=== PATIENT | male | born 1935 | race Caucasian/White ===

== ENCOUNTER → 2016-08-17 | Outpatient (CLI) | payer MEDICARE ==
[2014-01-15 07:22] VITALS: BP 121/55
[~2016-08-17] MED LIST: ACET325T9 PO; CHOL10003 PO; DOCU-109 PO; FURO-68 PO; HYDR-2762 PO; LISI10TA2 PO; SIMV40TA3 PO; SLOW RELEASE I142 MG PO; WARF2.5T83 PO
--- NOTE | 2016-08-18 04:26 | PAIN ---
DATE OF SERVICE: 08/17/2016 PROGRESS NOTE FOR PAIN CLINIC DIAGNOSES: 1. Lumbar radiculopathy with lumbar degenerative disk disease, lumbar spinal stenosis. 2. Bilateral knee joint pain with primary osteoarthritis of the bilateral knee joints. HISTORY OF PRESENT ILLNESS: The patient is a 81-year-old male who returns for followup, last seen on 06/27/2015. The patient had bilateral knee joint intra-articular injections with very good results about 75% improvement by his report and returns today with similar complaints of bilateral knee joint pain, slightly worse on the right than the left, but also some low back pain radiating to bilateral lower extremities. The patient reports the back pain is there with radicular pain mostly with walking, but his knee joint pain is much worse and much separate. He would like both issues addressed eventually. The patient is currently still taking Coumadin and his most recent INR of 2.2, which was about 5 days ago. The patient reports no new motor or sensory deficits, has still significant pain rates at 9 on a scale of 10 at its worst, is a 7 on average and 6 is the least, it is 7 today. The patient reports it is sharp, burning, off and on in intensity, worse with walking, standing with pain radiating from the low back, into the bilateral lower extremities, mostly in the posterior and lateral aspect of the thighs and into the lower legs, but the knees are his primary concern, as they are very tender with walking, standing, especially with climbing stairs or stepping up steps or curbs when he puts all his weight on one leg at the other. Again, slightly worse on the right than the left, but present bilaterally. The patient has had a left total knee replacement also. The patient reports no new motor or sensory deficits or other complaints. No new bowel or bladder incontinence. PHYSICAL EXAMINATION: VITAL SIGNS: The patient's blood pressure 131/59, pulse 64, respirations 18, temperature is 98.0 degrees Fahrenheit, height is 6 feet, weight is 270 pounds. GENERAL: The patient is awake, alert, oriented, appropriate, very pleasant demeanor. HEENT: Head shows normocephalic, atraumatic. The patient wears eyeglasses. Extraocular movements are intact and symmetrical. Oral cavity shows mucous membranes moist and pink. Dentition is intact. NECK: Shows anterior throat is supple without palpable lymphadenopathy noted. Swallow reflex is symmetrical. CHEST: Shows normal on inspection. Breath sounds are clear to auscultation bilaterally. HEART: Shows S1 and S2 clear. ABDOMEN: Soft, nontender, nondistended. No palpable organomegaly, no rebound or guarding demonstrated. BACK: The patient's back shows spine grossly in the midline. Normal appearing thoracic kyphosis and some mild flattening of lumbar lordotic curvature. Lumbar paraspinous muscle shows symmetrical on inspection without atrophy or hypertrophy noticeable, with palpation shows normal muscle girth. Palpation shows moderate tenderness only in the inferior aspect of the lumbar paraspinous musculature bilaterally, but without radiation. No tenderness over the spinous processes, sacrum or sacroiliac regions. The patient shows good rotation and motion of the lumbar spine, both laterally as well as extension and flexion without significant pain reported. LOWER EXTREMITIES: Show deep tendon reflexes at 0+ on the left knee and 1+ on the right patellar tendon. Motor exam is approximately 4 on a scale of 5 with left dorsiflexion, extension and 5/5 on the right quadriceps and hamstring flexion 5/5 bilaterally. Peripheral pulses are 1+ posterior tibial and dorsalis pedis pulses. No peripheral edema is noted bilaterally. Options were discussed with the patient and the patient's old chart was reviewed as his current medication regimen updated. Current review of systems updated today as well. We will check with his primary care physician for clearance to hold his Coumadin for 5 days with an INR and PT at that time. If out of therapeutic range, we will proceed with bilateral intra-articular knee joint injections. Once it is taken care, we will schedule again to hold his Coumadin and after he has been out of it for a period of at least one week and then plan on lumbar epidural steroid injection, as he has done very well with these in the past for his low back pain and neurogenic claudication symptoms. The patient understands and agrees. We will make the arrangements to check with his primary care physician regarding the Coumadin and holding it and return with PT and INR and proceed as scheduled. CHRISTOPHER ANDRADE MD DR: TANIA/young JOB#: [id number] / [id number]
== END | disposition home or self-care (01) ==
LOC: PNCL 12:19
PROVIDERS: ATTEND Anesthesiology
DX: M51.16 Intervertebral disc disorders with radiculopathy, lumbar region (principal); M48.06 Spinal stenosis, lumbar region; M25.562 Pain in left knee; M25.561 Pain in right knee; M17.0 Bilateral primary osteoarthritis of knee
CPT/HCPCS: G0463

== ENCOUNTER → 2016-08-23 | Outpatient (CLI) | payer MEDICARE ==
[2014-01-15 07:22] VITALS: BP 121/55
[~2016-08-23] MED LIST changes: +BUPIVACAINE MPF 0.25% 10 ML VIAL. ONE; +IOHEXOL 180 MG/ML 10 ML VIAL. ONE; +methylPREDNISolone ACETATE 40 MG/ML VIAL. ONE
== END | disposition home or self-care (01) ==
LOC: PNCL 08:07
PROVIDERS: ATTEND Anesthesiology
DX: M17.0 Bilateral primary osteoarthritis of knee (principal); M51.16 Intervertebral disc disorders with radiculopathy, lumbar region; M48.06 Spinal stenosis, lumbar region; E78.00 Pure hypercholesterolemia, unspecified; I10 Essential (primary) hypertension; M19.90 Unspecified osteoarthritis, unspecified site; Z96.652 Presence of left artificial knee joint
CPT/HCPCS: 20610; 77002; J1030; J3490

== ENCOUNTER → 2016-12-10 | Outpatient (CLI) | payer MEDICARE ==
[2014-01-15 07:22] VITALS: BP 121/55
--- NOTE | 2016-12-10 13:21 | PAIN ---
DATE OF SERVICE: 12/10/2016 DIAGNOSES: 1. Bilateral knee joint pain with primary osteoarthritis, bilateral knees. 2. Lumbar radiculopathy with lumbar degenerative disk disease and spinal stenosis. HISTORY OF PRESENT ILLNESS: The patient is a 81-year-old male who returns for followup status post bilateral knee joint injections, last seen 08/23/2016. The patient did very well with good improvement in his knee pain. The pain is returning now and we discussed also his low back, which has been doing very well after some injections last year. His knee is primary complaint, worse in the morning when he stands, get up from bed, very significantly painful, more on the right than the left, but present bilaterally. The patient reports the pain is 8 on a scale of 10 at its worst, average about 7, can be low as 0 but only with sitting down or lying down. The patient reports it is a 4 on a scale of 10 today. Sporadic pain sometimes awakens him from sleep at night that is usually more frequently on his right side. Low back, is doing well as noted. The pain in the knees is described as sharp and shooting, again off and on with weightbearing, much worse with standing, walking, climbing stairs. PHYSICAL EXAMINATION: VITAL SIGNS: Today, the patient's blood pressure is 132/69, pulse 60, respirations 16, temperature 97.5 degrees Fahrenheit. Weight is 275 pounds. GENERAL: The patient is awake, alert, oriented, appropriate, very pleasant demeanor. HEENT: Head shows normocephalic, atraumatic. Extraocular movements are intact, symmetrical. Oral cavity, mucous membranes are moist and pink. Dentition intact. NECK: Shows anterior throat supple. Swallow reflex is symmetrical. Neck shows full rotational motion of the cervical spine without difficulty. CHEST: Shows normal on inspection. Breath sounds are clear to auscultation bilaterally. HEART: Shows S1 and S2 clear. ABDOMEN: Soft, nontender, nondistended. No palpable organomegaly. No rebound or guarding demonstrated. BACK: Shows spine in midline with slight exaggeration of thoracic kyphosis, some minor flattening of lumbar lordotic curvature. Lumbar paraspinous musculature shows some moderate tenderness with palpation bilaterally, but only diffusely without radiation. Lower extremities showed deep tendon reflexes 0/4 on the left patella and 1+ on the right patella. A well healed surgical scar is noted over the left knee. Motor exam is approximately 4 on a scale of 5 left and 5/5 on the right with dorsiflexion, extension, quadriceps and hamstring flexion. Peripheral pulses are 1+ bilaterally. No peripheral edema is noted. Options were discussed with the patient and the patient's old chart was reviewed. CURRENT MEDICATIONS: Reviewed and updated and we will proceed with bilateral knee joint injection today with fluoroscopic guidance. Risks were again discussed including, but not limited to bleeding, infection, possibility of intravascular injection sequelae, spread of local anesthetic and numbness, side effects of steroid medications, exposure to fluoroscopy as well as poor results regarding pain control. The patient understands and wishes to proceed. The patient's PT and INR were measured prior to his visit this morning. It showed PT of 13.7, INR 1.1. The patient will return to the clinic in approximately 2 weeks or as necessary, would like to call for his next appointment, was encouraged to increase activity as tolerated. DIAGNOSIS: Bilateral knee joint pain with primary osteoarthritis, bilateral knee joint. PROCEDURES: Bilateral intra-articular knee joint injection with fluoroscopic guidance. Under sterile prep and drape using local anesthetic, medication injected a total of 2 mL of 0.25% bupivacaine in each knee for 4 mL total and total of 80 mg Depo-Medrol 40 mg per each knee as well as contrast 2 mL, 1 mL per each knee with good intraarticular spread without washout. CONDITION AT DISCHARGE: Stable. The patient tolerated the procedure well, had no complications. CHRISTOPHER ANDRADE MD DR: TANIA/young JOB#: [id number] / [id number]
== END | disposition home or self-care (01) ==
LOC: PNCL 09:45
PROVIDERS: ATTEND Anesthesiology
DX: M51.16 Intervertebral disc disorders with radiculopathy, lumbar region (principal); M48.061 Spinal stenosis, lumbar region without neurogenic claudication; M17.0 Bilateral primary osteoarthritis of knee; E78.00 Pure hypercholesterolemia, unspecified; I10 Essential (primary) hypertension; Z96.652 Presence of left artificial knee joint
CPT/HCPCS: 20610; 77002; J1030; J3490

== ENCOUNTER → 2017-08-26 | Outpatient (CLI) | payer MEDICARE ==
[2017-08-26 09:01] LABS: INR 1.3 (0.8-1.1)
== END | disposition home or self-care (01) ==
LOC: LAB 08:22
DX: Z51.81 Encounter for therapeutic drug level monitoring (principal); I10 Essential (primary) hypertension; E78.00 Pure hypercholesterolemia, unspecified; Z79.01 Long term (current) use of anticoagulants
CPT/HCPCS: 36415; 85610

== ENCOUNTER → 2017-08-26 | Outpatient (CLI) | payer MEDICARE ==
[~2017-08-26] MED LIST changes: -ACET325T9 PO; +BUPIVACAINE MPF 0.25% 10 ML VIAL.; -BUPIVACAINE MPF 0.25% 10 ML VIAL. ONE; -CHOL10003 PO; -DOCU-109 PO; -FURO-68 PO; -HYDR-2762 PO; +IOHEXOL 180 MG/ML 10 ML VIAL.; -IOHEXOL 180 MG/ML 10 ML VIAL. ONE; -LISI10TA2 PO; -SIMV40TA3 PO; -SLOW RELEASE I142 MG PO; -WARF2.5T83 PO; +methylPREDNISolone ACETATE 40 MG/ML VIAL.; -methylPREDNISolone ACETATE 40 MG/ML VIAL. ONE; +methylPREDNISolone ACETATE 80 MG/ML VIAL.
== END ==
LOC: PNCL 08:54
DX: M17.0 Bilateral primary osteoarthritis of knee (principal); M51.16 Intervertebral disc disorders with radiculopathy, lumbar region; M48.061 Spinal stenosis, lumbar region without neurogenic claudication; I10 Essential (primary) hypertension; E78.00 Pure hypercholesterolemia, unspecified; G47.30 Sleep apnea, unspecified; M19.90 Unspecified osteoarthritis, unspecified site; Z79.01 Long term (current) use of anticoagulants; Z96.652 Presence of left artificial knee joint; Z95.0 Presence of cardiac pacemaker
CPT/HCPCS: 20610; 77002; J1030; J1040; J3490; Q9965

== ENCOUNTER → 2018-01-02 | Outpatient (CLI) | payer MEDICARE ==
[2014-01-15 07:22] VITALS: BP 121/55
[~2018-01-02] MED LIST changes: +ACET325T9 PO; -BUPIVACAINE MPF 0.25% 10 ML VIAL.; +CHOL10003 PO; +DOCU-109 PO; +FURO-68 PO; +HYDR-2762 PO; -IOHEXOL 180 MG/ML 10 ML VIAL.; +LISI10TA2 PO; +SIMV40TA3 PO; +SLOW RELEASE I142 MG PO; +WARF2.5T83 PO; -methylPREDNISolone ACETATE 40 MG/ML VIAL.; -methylPREDNISolone ACETATE 80 MG/ML VIAL.
[2018-01-02 09:22] LABS: PROTHROMBIN TIME PATIENT 17.9 SEC (11.7-14.0)
== END | disposition home or self-care (01) ==
LOC: LAB 08:37
PROVIDERS: ATTEND Anesthesiology
DX: Z79.01 Long term (current) use of anticoagulants (principal)
CPT/HCPCS: 36415; 85610

== ENCOUNTER → 2018-01-02 | Outpatient (CLI) | payer MEDICARE ==
[2014-01-15 07:22] VITALS: BP 121/55
[~2018-01-02] MED LIST changes: +BUPIVACAINE MPF 0.25% 10 ML VIAL. ONE; +IOHEXOL 180 MG/ML 10 ML VIAL. ONE; +LIDOCAINE 1% PF 2 ML VIAL. ONE; +methylPREDNISolone ACETATE 40 MG/ML VIAL. ONE
--- NOTE | 2018-01-02 13:57 | PAIN ---
DATE OF SERVICE: 01/02/2018 PROGRESS NOTE FOR PAIN CLINIC DIAGNOSES: 1. Bilateral knee joint pain with primary osteoarthritis, bilateral knee joint. 2. Lumbar radiculopathy with lumbar degenerative disk disease and lumbar spinal stenosis. HISTORY OF PRESENT ILLNESS: The patient is an 82-year-old male who returns for followup status post bilateral knee joint injections, last seen on 09/05/2017. The patient did very well with this, initially 75% improvement, then about 50% improvement, better in the right knee than the left, but it has been replaced. The patient reports about 3-4 months, he was doing well, was increasing his distance walking, doing household activities, traveling with greater ease and comfort, now the pain is returning with weightbearing, standing and walking, especially standing on his right leg or stepping on a stair with his right foot with all of his weight on his right side. The patient reports his pain is a 7 on a scale of 10 at its worst, 6 on average, 0 at its least and this is with sitting or lying down. Does not awaken him from sleep at night every night, but if he lies on his right side, occasionally it will, but not each night. The patient reports usually only painful when up and ambulating, weightbearing on the knees themselves. The patient reports no new motor or sensory deficits, no new bowel or bladder incontinence or other complaints. The patient reports the pain is tight, burning, becoming more severe, again with weightbearing. PHYSICAL EXAMINATION: VITAL SIGNS: The patient's blood pressure 119/69, pulse 79, respirations 16, temperature 97.9 degrees Fahrenheit, weight is 260 pounds. GENERAL: The patient is awake, alert, oriented, appropriate, very pleasant demeanor. HEENT: Shows normocephalic, atraumatic. Extraocular movements are intact and symmetrical. Oral cavity: Mucous membranes are moist and pink. Dentition is intact. NECK: Shows anterior throat supple without palpable lymphadenopathy noted. Swallow reflex is symmetrical. CHEST: Shows normal on inspection. Breath sounds are clear to auscultation bilaterally. HEART: Shows S1, S2 clear. No murmurs auscultated. ABDOMEN: Soft, nontender, nondistended. No palpable organomegaly is noted. No rebound or guarding demonstrated. BACK: Shows spine grossly in the midline. Slight exaggeration of thoracic kyphosis and some minor flattening of lumbar lordotic curvature. Lumbar paraspinous muscle shows symmetrical on inspection, with palpation shows some mild tenderness to moderate tenderness in the lower lumbar distribution, but only diffusely and bilaterally without radiation. The patient has good rotational motion of lumbar spine, both laterally as well as extension and flexion without difficulty. EXTREMITIES: Lower extremities show deep tendon reflexes at 0 on the left patellar and 1+ in the right patellar tendon. Motor exam is 4/5 on the left and 5/5 on the right with dorsiflexion, extension, quadriceps and hamstring flexion. No crepitus, no ratcheting of the joints noted on either side. The patient has well-healed surgical scarring over the left knee joint. Options were discussed with the patient. The patient's old chart was reviewed as his current medication regimen updated. Current review of systems updated today as well and we will proceed with bilateral intraarticular knee joint injection today with fluoroscopic guidance. Risks were again discussed including, but not limited to bleeding, infection, possibility of intravascular injection sequelae, spread of local anesthetic and numbness, side effects of steroid medication, exposure to fluoroscopy and poor results regarding pain control. The patient understands and wished to proceed. The patient will return to the clinic in approximately 1 month or as necessary. The patient will restart his Coumadin tomorrow morning on schedule as his INR today was 1.5 with PT of 17.9. The patient understands and agrees, will follow up as scheduled. CHRISTOPHER ANDRADE MD DR: TANIA/young JOB#: [id number] / [id number]
--- NOTE | 2018-01-02 14:23 | PAIN ---
DATE OF SERVICE: 01/02/2018 ADDENDUM Procedure documentation addendum for office clinic note today. DIAGNOSIS: Bilateral knee joint pain with primary osteoarthritis, bilateral knees. PROCEDURE: Bilateral intraarticular knee joint injections using C-arm fluoroscopic guidance under sterile prep and drape using local anesthetic. MEDICATION INJECTED: A total of 6 mL of 0.25% bupivacaine, 3 mL per knee and total of 80 mg Depo-Medrol, 40 mg per knee and a total of 4 mL of Isovue for contrast, 2 mL per knee with good spread in the intraarticular spaces without washout on each side. CONDITION AT DISCHARGE: Stable. The patient tolerated the procedure well, had no complications. CHRISTOPHER ANDRADE MD DR: TANIA/young JOB#: [id number] / [id number]
== END | disposition home or self-care (01) ==
LOC: PNCL 09:12
PROVIDERS: ATTEND Anesthesiology
DX: M17.0 Bilateral primary osteoarthritis of knee (principal); M51.16 Intervertebral disc disorders with radiculopathy, lumbar region; M48.061 Spinal stenosis, lumbar region without neurogenic claudication
CPT/HCPCS: 20610; 77002; J1030; J3490; Q9965

== ENCOUNTER → 2018-08-18 | Outpatient (CLI) | payer OTHER ==
[2014-01-15 07:22] VITALS: BP 121/55
[~2018-08-18] MED LIST changes: -BUPIVACAINE MPF 0.25% 10 ML VIAL. ONE; -HYDR-2762 PO; +HYDR-2765 PO; -IOHEXOL 180 MG/ML 10 ML VIAL. ONE; -LIDOCAINE 1% PF 2 ML VIAL. ONE; -methylPREDNISolone ACETATE 40 MG/ML VIAL. ONE
--- NOTE | 2018-08-18 17:03 | RAD ---
EXAM: 3 views left shoulder DATE: 08/18/2018 12:00 AM INDICATION: COMPARISON: No Prior FINDINGS: AC joint degenerative changes are seen. Glenohumeral joint osteoarthritis. Small joint body at the inferior glenohumeral joint recess. Diffusely decreased bone mineral density. IMPRESSION: 1. Within constraints of osteopenia, no evidence for acute fracture or dislocation. 2. AC joint and glenohumeral joint osteoarthritis Electronically signed by: Eitan Maria MD (08/18/2018 5:00 PM) [facility]
== END | disposition home or self-care (01) ==
LOC: RAD 14:48
PROVIDERS: ATTEND Family Medicine
DX: M19.012 Primary osteoarthritis, left shoulder (principal); W19.XXXA Unspecified fall, initial encounter; Y93.89 Activity, other specified; Y92.89 Other specified places as the place of occurrence of the external cause; Y99.8 Other external cause status
CPT/HCPCS: 73030

== ENCOUNTER → 2019-01-27 | Outpatient (CLI) | payer OTHER ==
[2014-01-15 07:22] VITALS: BP 121/55
[~2019-01-27] MED LIST changes: +REGADENOSON 0.4 MG/5 ML DISP.SYRIN. IV ONE; +SIMV40TA18 PO; -SIMV40TA3 PO
--- NOTE | 2019-01-27 09:54 | CARD ---
MR#: [id number] Date of Study: 01/27/2019 Ordering Physician: IRMA GONZALES, Referring Physician: IRMA GONZALES Tech: Malina Finch RDCS APPROVED REPORT EXAM: Two-dimensional and M-mode echocardiogram with Doppler and color Doppler. Other Information Quality : Good Rhythm : Atrial Fibrillation INDICATION Atrial Fibrillation Pacemaker 2D DIMENSIONS RVDd3.1 (2.9-3.5cm)Left Atrium(2D)4.6 (1.6-4.0cm) IVSd1.3 (0.7-1.1cm)Aortic Root(2D)3.7 (2.0-3.7cm) LVDd5.2 (3.9-5.9cm)LVOT Diameter2.1 (1.8-2.4cm) PWd1.5 (0.7-1.1cm)LVDs3.9 (2.5-4.0cm) FS (%) 24.0 %SV60.4 ml LVEF(%)45.0 (>50%) Aortic Valve AoV Peak Jose.133.6cm/sAoV VTI20.7cm AO Peak GR.7.1mmHgLVOT Peak Jose.88.6cm/s AO Mean GR.4mmHgAVA (VMAX)2.34cm2 DENI (VTI)2.69xq0SN P 1/2 Udzo866rw Tricuspid Valve TR P. Kyvjvpml586vm/sRAP KPXWBSHE0txQs TR Peak Gr.20fdTaQMDL60oqKu Pulmonary Vein S1 Eghxbxjy56.5cm/sD2 Lbqbboaa49.2cm/s LEFT VENTRICLE The left ventricle is normal size. There is mild concentric left ventricular hypertrophy. Left ventri chuck systolic function is mildly impaired. The Ejection Fraction is 45-50%. There is mild global hypok inesis of the left ventricle. Septal motion consistent with pacemaker activation. Tissue Doppler imag ing reveals moderate left ventricular diastolic dysfunction. RIGHT VENTRICLE The right ventricle is normal size. The right ventricular systolic function is normal. There is a pac emaker lead in the right ventricle. ATRIA The left atrium is mildly dilated. The right atrium size is normal. A pacemaker is seen in the right atrium consistent with history. The interatrial septum is intact with no evidence for an atrial septa l defect or patent foramen ovale as noted on 2-D or Doppler imaging. AORTIC VALVE The aortic valve is calcified with an immobile NCC Doppler and Color Flow revealed mild aortic regurg itation. There is no significant aortic valvular stenosis. MITRAL VALVE The mitral valve is moderately thickened but opens well. Mitral annular calcification is moderate. Po sterior leaflet is restricted. There is no evidence of mitral valve prolapse. There is no mitral valv e stenosis. Doppler and Color-flow revealed trace to mild mitral regurgitation. TRICUSPID VALVE The tricuspid valve is normal in structure and function. Doppler and Color Flow revealed trace tricus pid regurgitation. The PA pressure was estimated at 21 mmHg. There is no tricuspid valve stenosis. PULMONIC VALVE The pulmonic valve is not well visualized. Doppler and Color Flow revealed trace to mild pulmonic tigist vular regurgitation. There is no pulmonic valvular stenosis. GREAT VESSELS The aortic root is normal in size. 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 The IVC was not visualized. PERICARDIAL EFFUSION There is no evidence of significant pericardial effusion. Critical Notification Critical Value: No <Conclusion> Left ventricle systolic function is mildly impaired. The Ejection Fraction is 45-50%. There is mild global hypokinesis of the left ventricle. Septal motion consistent with pacemaker activ ation. There is a pacemaker lead in the right ventricle. 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 Signed by : Feliberto Britton, Electronically Approved : 01/27/2019 09:54:19
--- NOTE | 2019-01-27 12:27 | RAD ---
MR#: [id number] Date of Study: 01/27/2019 Ordering Physician: IRMA GONZALES Referring Physician: ERD WEISS Tech: RT Justine Marie) (N) APPROVED REPORT Test Type: Pharmacological Stress Nurse/Tech: KERMIT VELIZ RN Test Indications: AFIB Cardiac History: AFIB, HTN, PPM, See Electronic Medical Record Medications: See Electronic Medical Record Medical History: See Electronic Medical Record Resting ECG: V-PACED W/BBB Resting Heart Rate: 85 bpm Resting Blood Pressure: 124/73mmHg Pretest Chest Pain: No chest pain Nurse/Tech Notes PPM-VPACED W/BBB PER MONITOR, LUNGS CTA, DENIED CP OR SOA Consent: The procedure was explained to the patient in lay terms. Informed consent was witnessed. Xavier eout was entered into [employer]. History and Stress Test performed by RT Frank (R) (N) Pharm. Details Pharmacologic stress testing was performed using 0.4mg per 5ml of regadenoson given intravenously ove r 7-10 seconds. Stress Symptoms DENIED ANY SYMPTOMS POST EXERCISE Reason for Termination: Infusion complete Max HR: 95 bpm Max Blood Pressure: 113/60mmHg Blood Pressure response to exercise: Normal blood pressure response during stress. Heart Rate response to exercise: NORMAL RESPONSE TO STRESS Chest Pain: No. Arrhythmia: . VPACED W/BBB ST Change: No. INTERPRETATION Stress EKG Conclusion: Non-diagnostic EKG due to V-pacing Imaging Protocol IMAGE PROTOCOL: Rest Tc-99m/stress Tc-99m 1 day Rest: Stress: Viability: Radiopharm.Tc99m KlxrucgvjTt35s Sestamibi Dose10.5mCi 32mCi Duration 15min. 15min. Img Date 01/27/2019 01/27/2019 Inj-Img Dtql92wtu. 60min. Rest Admin Site:IV - Right AntecubitalAdministrator:OLY De Guzman, ARRT (R)(N) Stress Admin Site: IV - Right AntecubitalAdministrator: RT Gilberto MarieR)(N) STRESS DATA End Diast. Vol.115.0mlLVEDV index BSA51.0ml End Syst. Vol.91.0mlLVESV index BSA40.0ml Myocardial Ksvr929.0gEject. Qtmsijnq47.0% Stress Scores Regional WT3.00Summed WT50.00 Regional WM1.00Summed WM57.00 LV Perfusion There is grossly normal perfusion with a small fixed defect in the basal inferior wall Wall Motion Severe LV dysfunction. EF 25% LV Perf. Quant 17 Seg. SSS2.00 17 Seg. SRS3.00 17 Seg. SDS0.00 Stress Defect Extent (% LAD)6.30Rest Defect Extent (% LAD)8.80Rev. Defect Extent (% LAD)0.00 Stress Defect Extent (% LCX) 0.00Rest Defect Extent (% LCX)0.00Rev. Defect Extent (% LCX)0.00 Stress Defect Extent (% RCA)0.00Rest Defect Extent (% RCA)0.00Rev. Defect Extent (% RCA)0.00 Stress Defect Extent (% ANGE)3.70Rest Defect Extent (% ANGE)4.80Rev. Defect Extent (% ANGE)0.00 Other Information Quality:Average Risk Assessment: Moderate-High Risk Conclusion 1. Non-diagnostic EKG due to v-pacing. 2. Small fixed basal inferior wall defect suggestive of prior infarct versus artifact. No significant ischemia. 3. Severe LV dysfunction. EF 25% 4. Moderate to high risk for future CV events due to cardiomyopathy. Signed by : Feliberto Britton, Electronically Approved : 01/27/2019 12:26:43
== END ==
LOC: ECHO 08:14
PROVIDERS: ATTEND Internal Medicine Cardiovascular Disease
DX: I08.8 Other rheumatic multiple valve diseases (principal); I11.0 Hypertensive heart disease with heart failure; I50.1 Left ventricular failure, unspecified; I48.21 Permanent atrial fibrillation; I77.819 Aortic ectasia, unspecified site; I42.9 Cardiomyopathy, unspecified; E78.00 Pure hypercholesterolemia, unspecified; Z95.0 Presence of cardiac pacemaker; Z96.652 Presence of left artificial knee joint
CPT/HCPCS: 78452; 93017; 93306; A9500; J2785

== ENCOUNTER 2019-03-02 08:52 | Observation (INO) | payer MEDICARE, OTHER ==
[2019-03-02] VITALS (13 sets, daily range): BP systolic 97–156; BP diastolic 54–84
[~2019-03-02] VITALS: Ht 180.3 cm; Wt 109.5 kg
[~2019-03-02 08:52] MED LIST changes: +HEPARIN for ARTERIAL LINE 0 ML ONE; +IODIXANOL 320 MG/ML 100 ML VIAL. ONE; -REGADENOSON 0.4 MG/5 ML DISP.SYRIN. IV ONE
[2019-03-02] MEDS ORDERED: PRAV80TA2 PO (09:37)
[2019-03-02 09:45] LABS: CALCIUM 8.7 mg/dL (8.5-10.1); CREATININE 0.7 mg/dL (0.7-1.3)
[2019-03-02 09:55] LABS: HEMATOCRIT 41.8 % (39.0-53.0); RED BLOOD COUNT 4.52 x10^6/uL (4.30-5.70); RED CELL DISTRIBUTION WIDTH 13.5 % (11.5-14.5); WHITE BLOOD COUNT 7.8 x10^3/uL (4.0-11.0)
[2019-03-02 10:12] LABS: PROTHROMBIN TIME PATIENT 16.2 SEC (11.7-14.0)
[2019-03-02] MEDS ORDERED: LIDOCAINE 1% PF 2 ML VIAL. ONE (10:33)
[2019-03-02] MEDS ORDERED: NITROGLYCERIN 200 MCG/2 ML SYRINGE FOR CATH/VASC LAB. ONE ×2 (10:51→11:28)
[2019-03-02] MEDS ORDERED: MIDAZOLAM HCL/PF 2 MG/2 ML VIAL. ONE (10:51)
[2019-03-02] MEDS ORDERED: HEPARIN for IV BOLUS 10,000 UNIT/10 ML VIAL. ONE (10:51)
[2019-03-02] MEDS ORDERED: VERAPAMIL 5 MG/2 ML VIAL. ONE (10:51)
[2019-03-02] MEDS ORDERED: fentaNYL PF VIAL 100 MCG/2 ML VIAL ONE (10:51)
[2019-03-02] MEDS ORDERED: HEPARIN for IV BOLUS 10,000 UNIT/10 ML VIAL. IART ONE (11:00)
[2019-03-02] MEDS ORDERED: IODIXANOL 320 MG/ML 100 ML VIAL. IART ONE (11:00)
[2019-03-02] MEDS ORDERED: VERAPAMIL 5 MG/2 ML VIAL. IART ONE (11:00)
[2019-03-02] MEDS ORDERED: LIDOCAINE 1% PF 2 ML VIAL. INJ ONE (11:00)
[2019-03-02] MEDS ORDERED: fentaNYL PF VIAL 100 MCG/2 ML VIAL IV ONE (11:00)
[2019-03-02] MEDS ORDERED: MIDAZOLAM HCL/PF 2 MG/2 ML VIAL. IV ONE (11:00)
[2019-03-02] MEDS ORDERED: BIVALIRUDIN 250 MG VIAL. IV ONE ×2 (11:08→11:30)
[2019-03-02] MEDS ORDERED: IODIXANOL 320 MG/ML 100 ML VIAL. ONE (11:11)
[2019-03-02] MEDS ORDERED: NITROGLYCERIN 200 MCG/2 ML SYRINGE FOR CATH/VASC LAB. IART ONE ×2 (11:30)
[2019-03-02] MEDS ORDERED: ASPIRIN 325 MG TABLET ONE (11:33)
[2019-03-02] MEDS ORDERED: CLOPIDOGREL BISULFATE 75 MG TABLET ONE (11:33)
[2019-03-02] MEDS ORDERED: CLOPIDOGREL BISULFATE 75 MG TABLET PO ONE (11:45)
[2019-03-02] MEDS ORDERED: ASPIRIN 325 MG TABLET PO ONE (11:45)
--- NOTE | 2019-03-02 12:09 | CARD ---
MR#: [id number] Date of Study: 03/02/2019 Ordering Physician: IRMA SIDHU, Referring Physician: IRMA SIDHU, Tech: RT Sarahy (R) DONALD APPROVED REPORT Technologist: RT Sarahy (R) DONALD Nurse: Jennifer Alonzo R.N. Procedure(s) performed: 1. Left heart catheterization, selective coronary angiography and left ventr iculography via right transradial approach 2. Successful PCI/drug eluting stent placement to the left anterior descending artery fluoro time: 14.5 min dose: 170 Gycm2 Contrast: 211 ml Sedation time: 54 min [facility] Clinical Frailty Scale [facility] Clinical Frailty Scale: Mildly Frail Heart Failure Heart Failure: No PROCEDURE NARRATIVE After explaining the risks, benefits and alternative options, informed consent was obtained from braxton ent. Patient was brought to the cardiac Data Capture Clerk and right wrist was prepped and draped in the usual fashion after confirming a positive modified Lino's test. Arterial access was obtained in the righ t radial artery and a 6 Cymro sheath was inserted. 6 Cymro Mario and 6 Cymro JL 3.5 catheters wer e used to perform selective angiography of the right and left coronary arteries. 6 Cymro pigtail cat heter was used to perform left ventriculography. The following findings were noted. FINDINGS 1. Hemodynamics: Left ventricular end-diastolic pressure of 16 mmHg. No pullback gradient across th e aortic valve. 2. Left ventriculography: Mild left ventricle systolic dysfunction with ejection fraction estimated at 45%. No significant mitral regurgitation seen. 3. Coronary angiography: a. The left main coronary artery arose from the left sinus of Valsalva, gave rise to the left anteri or descending and left circumflex arteries and did not show any significant stenosis. b. The left anterior descending artery showed 90-95% stenosis involving the midsegment. c. The left circumflex artery did not show any significant stenosis. d. The right coronary artery was a large and dominant vessel arising from the right sinus of Valsalv a that showed 30% stenosis in the proximal segment. INTERVENTION The left main coronary artery was engaged with a 6 Cymro XB 3.5 guide catheter and the stenosis in t he midsegment of the left anterior descending artery was crossed with a 0.014 inch Mobile-XL water gu idewire. This was predilated with a 3.0 x 15 mm trek balloon following which this was successfully tr eated with a 4.0 x 18 mm Avelar Xience drug-eluting stent. Follow-up angiography showed resolution of the stenosis to 0% with good distal flow. Patient tolerated the procedure well. Hemostasis was achie aggie using TR band. There were no immediate complications. EVA Flow EVA Flow (Pre-Intervention): EVA-2 EVA Flow (Post-Intervention): EVA-3 Conclusion 1. Severe single-vessel coronary artery disease, 90-95% stenosis involving the left anterior descend ing artery 2. Successful PCI/drug eluting stent placement to the left anterior descending artery 3. Mild left ventricle systolic dysfunction with ejection fraction estimated at 45% Recommendations 1. Aspirin 81 mg daily (patient on Coumadin) 2. Plavix 75 mg daily for preferably one year 3. Cardiovascular risk factor modification Signed by : Irma Sidhu, Electronically Approved : 03/02/2019 12:09:37
[2019-03-02] MEDS: IV 1/2 NORMAL SALINE 1,000 ML IV SCH ×2 (12:10→20:05)
--- NOTE | 2019-03-02 12:10 | PDOC ---
MODERATE SEDATION ASSESSMENT RISKS/ALTERNATIVES Risks/Alternatives Risks and alternatives of this type of sedation and procedure discussed with: RISK/ALTERNATIVES: Patient H & P ON CHART H & P H & P on chart and reviewed for co-morbid conditions and appropriate labs. H&P ON CHART: Yes STATUS PREG STATUS ASSESSED: N/A MEDS/ALLERGIES REVIEWED Meds/Allergies Reviewed Medications and Allergies including time and route of recently administered narcotics and sedatives. MEDS/ALLERGIES REVIEWED: Yes ASA RATING ASA RATING: II AIRWAY ASSESSMENT Airway Assessment Airway patency, oral function limitations, presence of caps, crowns, dentures, partials, and ability to extend neck assessed. AIRWAY ASSESSMENT: Yes MALLAMPATI SCORE MALLAMPATI SCORE: II PRE-SEDATION ASSESSMENT PRE-SEDATION ASSESSMENT: Yes IRMA GONZALES MD Mar 02, 2019 12:10
[2019-03-02] MEDS ORDERED: DOCUSATE SODIUM 100 MG CAPSULE. PO PRN (12:15)
[2019-03-02] MEDS ORDERED: ACETAMINOPHEN 325 MG TABLET. PO PRN ×2 (12:15)
[2019-03-02] MEDS ORDERED: HYDROcodone/APAP 7.5/325MG 1 TAB TABLET PO PRN (12:15)
[2019-03-02] MEDS ORDERED: NITROGLYCERIN SUBLINGUAL 0.4 MG BOTTLE OF 25. SL PRN (12:15)
[2019-03-02] MEDS ORDERED: WARFARIN 2.5 MG TABLET. PO SCH (16:00)
[2019-03-02] MEDS: CARVEDILOL 6.25 MG TABLET. PO SCH (19:12)
[2019-03-02] MEDS ORDERED: ATORVASTATIN CALCIUM 20 MG TABLET PO SCH (21:00)
[2019-03-03 03:19] VITALS: BP 112/72
[2019-03-03 07:00] VITALS: BP 118/67
[2019-03-03] MEDS ORDERED: CLOPIDOGREL BISULFATE 75 MG TABLET PO SCH (08:00)
[2019-03-03] MEDS ORDERED: ASPIRIN ENTERIC COATED 81 MG TABLET.DR. PO SCH (08:00)
[2019-03-03] MEDS: CARVEDILOL 6.25 MG TABLET. PO SCH (08:55)
[2019-03-03] MEDS ORDERED: FUROSEMIDE 40 MG TABLET. PO SCH (09:00)
[2019-03-03 11:00] VITALS: BP 122/61
[2019-03-03] MEDS ORDERED: CARV6.2511 PO (11:31)
[2019-03-03] MEDS ORDERED: CLOP75TA PO (11:31)
--- NOTE | 2019-03-03 11:38 | PDOC3 ---
Discharge Summary Visit Information Date of Admission: Mar 02, 2019 Date of Discharge: Mar 03, 2019 Admitting Diagnosis Comment: CAD Hypertension Hyperlipidemia MARINA AFIB SSS s/p PPM (Medtronic) Cardiomyopathy Final Diagnosis CAD Hypertension Hyperlipidemia MARINA AFIB SSS s/p PPM (Medtronic) Ischemic Cardiomyopathy Chronic systolic CHF Brief Hospital Course Allergies Allergies Coded Allergies Type Severity Reaction Last Updated Verified No Known Drug Allergies 01/12/14 No Vital Signs Vital Signs Date Time Temp Pulse Resp B/P (MAP) Pulse Ox O2 Delivery O2 Flow Rate FiO2 03/03/19 11:01 Room Air 03/03/19 08:55 73 112/72 03/03/19 07:00 98.0 18 96 98.0 03/02/19 11:51 2.0 Lab Results Laboratory Tests Test 03/02/19 09:25 White Blood Count 7.8 x10^3/uL (4.0-11.0) Red Blood Count 4.52 x10^6/uL (4.30-5.70) Hemoglobin 14.0 g/dL (13.0-17.5) Hematocrit 41.8 % (39.0-53.0) Mean Corpuscular Volume 93 fL (79-100) Mean Corpuscular Hemoglobin 31 pg (25-35) Mean Corpuscular Hemoglobin Concent 34 g/dL (31-37) Red Cell Distribution Width 13.5 % (11.5-14.5) Platelet Count 270 x10^3/uL (140-400) Prothrombin Time 16.2 SEC (11.7-14.0) Prothromb Time International Ratio 1.3 (0.8-1.1) Sodium Level 138 mmol/L (136-145) Potassium Level 4.0 mmol/L (3.5-5.1) Chloride Level 102 mmol/L (98-107) Carbon Dioxide Level 28 mmol/L (21-32) Anion Gap 8 (6-14) Blood Urea Nitrogen 18 mg/dL (8-26) Creatinine 0.7 mg/dL (0.7-1.3) Estimated GFR (Cockcroft-Gault) 108.0 Glucose Level 95 mg/dL (70-99) Calcium Level 8.7 mg/dL (8.5-10.1) Brief Hospital Course Mr. Vargas is a 84 old male, with a history noted above, who underwent routine echo that noted LVEF 45-50%. Earlier last month, MPI did did not show any ischemia, but showed an LVEF of 25%. Due to these findings, patient underwent further ischemic evaluation with cardiac catheterization. Coronary angiogram noted with severe single-vessel coronary artery disease with a 90-95% stenosis involving the left anterior descending artery. Patient underwent successful PCI/drug eluting stent placement to the left anterior descending artery. Noted with mild left ventricle systolic dysfunction with ejection fraction estimated at 45%. Patient was monitored overnight without any acute complications. Lung CTA. Right arteriotomy site without ecchymosis or hematoma. Bilateral neurovascular status is intact. DAPT with ASA for 30 days and Plavix 75mg preferable for one year was added in addition to carvedilol. Patient seen and examined. Agree with CABLE SUPERVISOR's assessment and plan. s/p PCI/BIPIN to LAD yesterday,'s chest pain-free. Cardiomyopathy clinically well compensated. Okay for discharge from cardiac standpoint. Follow-up with our office as scheduled. Discharge Information Condition at Discharge: Improved Follow Up: Weeks (04/15/19 at 10:00am ) Disposition/Orders: D/C to Home Scheduled Aspirin (Aspir-Low) 81 Mg Tablet.dr, 1 TAB PO DAILY for heart, #30 (Reported) Entered as Reported by: Riccardo Biggs on 03/03/19 1250 Carvedilol (Carvedilol ) 6.25 Mg Tablet, 3.125 MG PO BIDWMEALS for heart, coronary artery disease for 30 Days, #30 Ref 2 Prescribed by: LILLIANA AZEVEDO APRN on 03/03/19 1131 Clopidogrel Bisulfate (Clopidogrel) 75 Mg Tablet, 75 MG PO DAILYWBK for coronary artery disease for 30 Days, #30 Ref 2 Prescribed by: LILLIANA AZEVEDO APRN on 03/03/19 1131 Furosemide (Lasix) 40 Mg Tablet, 1 TAB PO DAILY, #90 Ref 1 (Reported) Entered as Reported by: KELLY MANUEL on 01/11/14 1356 Last Taken: Unknown Dose on 03/02/19 Last Action: Continued on 03/02/19 1214 by IRMA GONZALES Lisinopril (Lisinopril) 10 Mg Tablet, 1 TAB PO DAILY, #30 Ref 5 (Reported) Entered as Reported by: KELLY MANUEL on 01/11/14 1356 Last Taken: Unknown Dose on 03/02/19 Last Action: HELD on 03/02/191213 by IRMA GONZALES Pravastatin Sodium (Pravastatin Sodium) 80 Mg Tablet, 1 TAB PO DAILY for cholesterol, #30 Ref 5 (Reported) Entered as Reported by: LINDA DE LEÓN on 03/02/19 0937 Last Taken: Unknown Dose on 03/02/19 Last Action: Converted on 03/02/194 by IRMA GONZALES Warfarin Sodium (Coumadin) 2.5 Mg Tablet, 1 TAB PO DAILY, #30 Ref 3 (Reported) Entered as Reported by: KELLY MANUEL on 01/11/14 1356 Last Taken: Unknown Dose on 02/27/19 Last Action: Continued on 03/02/191213 by IRMA GONZALES Scheduled PRN Acetaminophen (Tylenol) 325 Mg Tablet, 650 MG PO QIDPRN PRN for PAIN / TEMP, (Reported) Entered as Reported by: KELLY MANUEL on 01/11/14 1356 Last Taken: Unknown Dose on 03/01/19 Last Action: Continued on 03/02/194 by IRMA GONZALES Docusate Sodium (Colace) 100 Mg Capsule, 1 CAP PO PRN BID PRN for CONSTIPATION, #30 (Reported) Entered as Reported by: KELLY MANUEL on 01/11/14 1356 Last Taken: Unknown Dose on 03/02/19 Last Action: Continued on 03/02/194 by IRMA GONZALES Hydrocodone Bit/Acetaminophen (Hydrocodone-Apap 7.5-325 ) 1 Each Tablet, 1 TAB PO PRN Q6HRS PRN for PAIN, Ref 0 (Reported) Entered as Reported by: CLAUDIA HIGGINBOTHAM on 04/12/15 1323 Last Taken: Unknown Dose on 03/01/19 Last Action: Continued on 03/02/191213 by IRMA GONZALES Patient Instructions Patient Instructions GENERAL INSTRUCTIONS: 1. Your dressing should be removed prior to leaving the hospital. 2. It is OK to shower the day after your procedure. 3. If you received stents, be sure to carry your stent information card with you in your wallet/purse at all times. 4. Call the office immediately at [phone] if you notice any fever or if there is redness, worsening tenderness/pain, increased bruising, or drainage from the puncture site. 5. Should you have bleeding from the site, lie down immediately & put pressure on the site. The pressure should be hard enough to stop the bleeding. Have the nearest person call 911. DO NOT try to drive to the ER with active bleeding. 6. If you notice a change in color, coolness to touch, or loss of feeling in the affected extremity, come to the emergency room. Please have someone drive you or call 911 if no one is available. DO NOT drive yourself. 7. If you normally take glucophage (metformin), please do not take this medicine for 48 hours following your procedure. 8. DO NOT STOP TAKING YOUR PLAVIX OR ASPIRIN UNLESS IT IS CLEARED BY A COUNTER CONTROL OPERATOR OF YOUR CURRICULUM DESIGNER AT OUR OFFICE. 9. QUIT SMOKING: the [place] [employer], [place] [employer], & [place] [employer] have cessation resources available on their websites 10. Please have someone available to drive you home from the hospital as you may be limited by sedation medications given during the procedure. Femoral (Groin) access: 1. Do no lifting, pushing, pulling, bending, stooping, or recurrent stair climbing for 3 days following your procedure. 2. Once past the first 3 days, do not do any HEAVY exertion or lifting for one week following the procedure. No gym workouts, running, lifting greater than a gallon of milk, etc 3. Do not submerge in bath or pool for one week. OK to drive 3 days following your procedure, but if going long distance, do not go alone & take hourly breaks to get out of car and walk around. Radial Artery (Wrist) access: 1. No pushing, pulling, lifting, typing, or anything that requires repetitive use/movement of the affected wrist for 3 days following your procedure. 2. OK to drive the day following your procedure. (This is because of effects of sedating medications.) Call the office at [phone] for any questions or concerns. LILLIANA AZEVEDO APRN Mar 03, 2019 11:38 IRMA GONZALES MD Mar 03, 2019 17:29
--- NOTE | 2019-03-03 12:29 | DISCH ---
DISCHARGE INSTRUCTIONS Condition on Discharge Condition on Discharge: Stable Activity After Discharge Activity Instructions for Disc: Activity as tolerated Lifting Instructions after Dis: No heavy lifting, No pulling or pushing, Do not lift >10 pounds Driving Instructions after Dis: Do not drive (for 5 days ) Diet after Discharge Diet after Discharge: Cardiac, Diabetic No Calorie Level Checks after Discharge Checks after discharge: Check blood press - daily Contacting the DR. after DC Call your doctor for: Concerns you may have LILLIANA AZEVEDO APRN Mar 03, 2019 12:29
[2019-03-03] MEDS ORDERED: ASPI81TA50 PO (12:50)
--- NOTE | 2019-03-03 13:40 | NUR ---
Discharged patient home. Discharge instructions given. PIV and heart monitor removed. Escorted patient to [facility] into a private vehicle.
== END 2019-03-03 13:40 | disposition home or self-care (01) ==
LOC: CCL 08:52 → 2 NORTH 16:54
PROVIDERS: ADMIT Internal Medicine Cardiovascular Disease; ATTEND Internal Medicine Cardiovascular Disease
DX: I25.10 Atherosclerotic heart disease of native coronary artery without angina pectoris (principal); I49.5 Sick sinus syndrome; I11.0 Hypertensive heart disease with heart failure; I50.22 Chronic systolic (congestive) heart failure; I48.21 Permanent atrial fibrillation; G47.33 Obstructive sleep apnea (adult) (pediatric); E78.5 Hyperlipidemia, unspecified; Z95.0 Presence of cardiac pacemaker; Z79.01 Long term (current) use of anticoagulants
CPT/HCPCS: 36415; 80048; 85027; 85610; 92928; 93458; 96374; 96375; C1769; C1874; C1887; C1892; G0378; G0379; J0583; J1644; J2250; J3010; J3490; Q9967; 99152; 99153; C1713

== ENCOUNTER → 2020-03-16 | Outpatient (CLI) | payer MEDICARE ==
[~2020-03-16] MED LIST changes: +ASPI81TA50 PO; +CARV6.2511 PO; +CLOP75TA PO; -HEPARIN for ARTERIAL LINE 0 ML ONE; -IODIXANOL 320 MG/ML 100 ML VIAL. ONE; +PRAV80TA2 PO; +WARF2.5T2 PO; -WARF2.5T83 PO
--- NOTE | 2020-03-16 17:57 | CARD ---
MR#: [id number] Date of Study: 03/16/2020 Ordering Physician: IRMA GONZALES, Referring Physician: IRMA GONZALES, Tech: Malina Finch RDCS APPROVED REPORT EXAM: Two-dimensional and M-mode echocardiogram with Doppler and color Doppler. Other Information Quality : Good INDICATION SSS-Pacemaker 2D DIMENSIONS RVDd3.5 (2.9-3.5cm)Left Atrium(2D)4.5 (1.6-4.0cm) IVSd1.6 (0.7-1.1cm)Aortic Root(2D)3.1 (2.0-3.7cm) LVDd4.8 (3.9-5.9cm)LVOT Diameter2.1 (1.8-2.4cm) PWd1.3 (0.7-1.1cm)LVDs3.1 (2.5-4.0cm) FS (%) 33.8 %SV65.8 ml LVEF(%)62.6 (>50%) Aortic Valve AoV Peak Jose.152.6cm/sAoV VTI25.1cm AO Peak GR.9.3mmHgLVOT Peak Jose.73.8cm/s AO Mean GR.5mmHgAVA (VMAX)1.63cm2 DENI (VTI)1.16sw3FZ P 1/2 Wljo663ai Tricuspid Valve TR P. Xxgvsxwx821if/sRAP LIRTZWJN6mbSp TR Peak Gr.49evIdTGKX37toZc Pulmonary Vein S1 Ijhzohzy66.2cm/sD2 Dksmryzj39.3cm/s LEFT VENTRICLE The left ventricle is normal size. There is mild concentric left ventricular hypertrophy. Left ventri chuck systolic function is low normal. The Ejection Fraction is 50%. Septal motion consistent with pace maker activation. RIGHT VENTRICLE The right ventricle is normal size. The right ventricular systolic function is normal. There is a pac emaker lead in the right ventricle. ATRIA The left atrium is mildly dilated. The right atrium is mildly dilated. A pacemaker is seen in the rig ht atrium consistent with history. The interatrial septum is intact with no evidence for an atrial se ptal defect or patent foramen ovale as noted on 2-D or Doppler imaging. AORTIC VALVE The aortic valve is moderately thickened but opens well. Doppler and Color Flow revealed trace to mil d aortic regurgitation. There is no significant aortic valvular stenosis. MITRAL VALVE The mitral valve is moderately thickened. There is no evidence of mitral valve prolapse. There is no mitral valve stenosis. Doppler and Color-flow revealed mild mitral regurgitation. TRICUSPID VALVE The tricuspid valve is normal in structure and function. Doppler and Color Flow revealed trace tricus pid regurgitation. The PA pressure was estimated at 25 mmHg. There is no tricuspid valve stenosis. PULMONIC VALVE The pulmonic valve is not well visualized. Doppler and Color Flow revealed mild pulmonic valvular reg urgitation. There is no pulmonic valvular stenosis. GREAT VESSELS The aortic root is normal in size. The ascending aorta is mild to moderately dilated at 4.2 cm. The I VC is normal in size and collapses >50% with inspiration. PERICARDIAL EFFUSION There is no evidence of significant pericardial effusion. Critical Notification Critical Value: No <Conclusion> Left ventricle systolic function is low normal. The Ejection Fraction is 50%. Septal motion consistent with pacemaker activation. Pacer lead noted RA/RV. Trace to mild aortic regurgitation. Mild mitral regurgitation. Trace tricuspid regurgitation. The PA pressure was estimated at 25 mmHg. The ascending aorta is mild to moderately dilated at 4.2 cm. There is no evidence of significant pericardial effusion. Signed by : Irma Gonzales, Electronically Approved : 03/16/2020 17:57:17
== END ==
LOC: ECHO 10:45
PROVIDERS: ATTEND Internal Medicine Cardiovascular Disease
DX: I08.8 Other rheumatic multiple valve diseases (principal); I49.5 Sick sinus syndrome
CPT/HCPCS: 93306

== ENCOUNTER 2020-07-22 09:54 | Day surgery (SDC) | payer MEDICARE ==
[~2020-07-22] VITALS: Ht 181.6 cm; Wt 100.0 kg
[~2020-07-22 09:54] MED LIST changes: +BUPIVACAINE MPF 0.25% 30 ML VIAL. ONE; +HYDROmorphone 2 MG/ML VIAL IVP PRN; +IV RINGERS,LACTATED 1000ML 1,000 ML IV SCH; +LIDOCAINE 2% PF 5 ML VIAL. ONE; +LISI10TA16 PO; -LISI10TA2 PO; +MORPHINE SULFATE 2 MG/ML VIAL. IVP PRN; +MULT-730 PO; +PROCHLORPERAZINE 10 MG/2 ML VIAL. IVP PRN; +PROPOFOL 10 MG/ML (20ML) VIAL. IV ONE; +fentaNYL PF VIAL 100 MCG/2 ML VIAL IVP PRN; +fentaNYL PF VIAL 100 MCG/2 ML VIAL ONE
[2020-07-22 10:28] VITALS: BP 123/71
[2020-07-22 11:23] LABS: PROTHROMBIN TIME PATIENT 17.3 SEC (11.7-14.0)
[2020-07-22] MEDS ORDERED: SEVOFLURANE 31 TO 60 MINUTES. IH ONE (11:41)
[2020-07-22] MEDS ORDERED: ONDANSETRON PF 4 MG/2 ML VIAL. ONE (11:41)
[2020-07-22] MEDS ORDERED: DEXAMETHASONE SOD PHOS 4 MG/ML VIAL ONE (11:41)
[2020-07-22] MEDS ORDERED: ePHEDrine PF IN SALINE 50 MG/10 ML SYRINGE. IV ONE (12:16)
[2020-07-22] MEDS ORDERED: HYDR-2765 PO (12:56)
--- NOTE | 2020-07-22 12:58 | DISCH ---
DISCHARGE INSTRUCTIONS Condition on Discharge Condition on Discharge: Stable Activity After Discharge Activity Instructions for Disc: Other, see below (Avoid hard grasping with right hand, fine motor use allowed and elbow motion encouraged) Lifting Instructions after Dis: No heavy lifting, No pulling or pushing, Do not lift >10 pounds Driving Instructions after Dis: Do not drive Weight Bearing Status after Di: Other, see below (Avoid pressure on the palm of the right hand) Diet after Discharge Diet after Discharge: Cardiac, No Added Salt Wound Incision Care Wound/Incision Care: Do not change dressing Checks after Discharge Checks after discharge: Check blood press - daily Contacting the after DC Call your doctor for: Concerns you may have Follow-Up Follow up with: Dr. Knowles or Melissa 10 days ARMINDA KNOWLES MD July 22, 2020 12:58
[2020-07-22] MEDS ORDERED: HYDROcodone/APAP 7.5/325MG 1 TAB TABLET PO ONE (13:15)
[2020-07-22 13:35] VITALS: BP 118/76
--- NOTE | 2020-07-22 15:33 | PDOC4 ---
Operative Note Operative Note Date of surgery: 07/22/2020 Preoperative diagnosis: Right carpal and cubital tunnel syndrome Postoperative diagnosis: Same with severe ulnar nerve compression and moderate median nerve compression Operative procedure: Right carpal and cubital tunnel releases Surgeon: Benson Anesthesia: General Estimated blood loss: 5 cc Complications: None Operative indications: Please see my preoperative orthopedic clinic note for detailed operative indications and note that we covered that this procedure only takes pressure off the compressed nerves and relief may be incomplete as it is dependent on healing. There is also possibility of nerve or blood vessel damage infection medical or other anesthetic complications among others. He agrees to proceed with surgical evaluation and treatment Operative text: Patient was identified procedure verified patient placed in the supine position on the operating table. After adequate amounts of general anesthesia were administered the right upper extremity was prepped and draped in standard sterile fashion with an upper arm tourniquet. After timeout was performed patient procedure identified and verified the right upper extremity was exsanguinated by Esmarch bandage tourniquet inflated to 300 mmHg and a longitudinal incision was made just distal to the distal wrist crease dissection carried out down to the transverse carpal ligament which was divided under direct vision with scalpel and tenotomy scissors. Full release was verified both visually and palpably. Median nerve was noted to have moderate compression and flexor tendons were intact without any synovitis. Attention was then turned to the medial elbow where a curvilinear incision was made and dissection carried out down to the cubital tunnel which was identified proximally and ulnar nerve was carefully protected with release from the medial intermuscular septum area to the entry and exit and throughout the cubital tunnel itself and further decompression carried out as it entered the flexor pronator musculature where fascia and muscle was released. He was noted to have severe compression of the ulnar nerve throughout its course particularly at the cubital tunnel. Thorough irrigation carried out normal saline solution, incision was closed at the elbow with buried Vicryl suture and both incisions with nylon suture in vertical mattress fashion. Sterile soft dressings were applied patient was returned to recovery room stable condition having tolerated procedure well. Fingers were noted be warm pink on deflation of the tourniquet ARMINDA BUTLER MD July 22, 2020 15:33
== END 2020-07-22 14:20 | disposition home or self-care (01) ==
LOC: SURG 09:54
PROVIDERS: ATTEND Orthopaedic Surgery
DX: G56.21 Lesion of ulnar nerve, right upper limb (principal); G56.01 Carpal tunnel syndrome, right upper limb; I25.10 Atherosclerotic heart disease of native coronary artery without angina pectoris; I10 Essential (primary) hypertension; I48.91 Unspecified atrial fibrillation; E78.00 Pure hypercholesterolemia, unspecified; E66.9 Obesity, unspecified; M19.90 Unspecified osteoarthritis, unspecified site; G47.30 Sleep apnea, unspecified; Z79.899 Other long term (current) drug therapy; Z98.890 Other specified postprocedural states
CPT/HCPCS: 36415; 64718; 64721; 85610; A4209; A4930; A6402; J0690; J1100; J2405; J2704; J3010; J3490; A4657; A6452

== ENCOUNTER → 2020-10-05 | Outpatient (CLI) | payer MEDICARE ==
[~2020-10-05] MED LIST changes: -BUPIVACAINE MPF 0.25% 30 ML VIAL. ONE; -HYDROmorphone 2 MG/ML VIAL IVP PRN; -IV RINGERS,LACTATED 1000ML 1,000 ML IV SCH; -LIDOCAINE 2% PF 5 ML VIAL. ONE; -MORPHINE SULFATE 2 MG/ML VIAL. IVP PRN; -PROCHLORPERAZINE 10 MG/2 ML VIAL. IVP PRN; -PROPOFOL 10 MG/ML (20ML) VIAL. IV ONE; +REGADENOSON 0.4 MG/5 ML DISP.SYRIN. IV ONE; -fentaNYL PF VIAL 100 MCG/2 ML VIAL IVP PRN; -fentaNYL PF VIAL 100 MCG/2 ML VIAL ONE
--- NOTE | 2020-10-05 16:18 | RAD ---
MR#: [id number] Date of Study: 10/05/2020 Ordering Physician: IRMA GONZALES, Referring Physician: RED WEISS Tech: RT Helder (R) (N) APPROVED REPORT Test Type: Pharmacological Stress Nurse/Tech: Rashaad Mcpherson RN Test Indications: CAD Cardiac History: CAD, Cardiac stents x2=5yrs ago, PPM, See EMR. Medications: See EMR. Medical History: See EMR. Resting ECG: V-Paced Resting Heart Rate: 132 bpm Resting Blood Pressure: 127/74mmHg Pretest Chest Pain: No chest pain Nurse/Tech Notes Lungs CTA, Heart tones regular. Consent: The procedure was explained to the patient in lay terms. Informed consent was witnessed. Xavier eout was entered into [employer]. History and Stress Test performed by RT Justine Marie) (N) Pharm. Details Pharmacologic stress testing was performed using 0.4mg per 5ml of regadenoson given intravenously ove r 7-10 seconds. Stress Symptoms No chest pain or symptoms. POST EXERCISE Reason for Termination: Infusion complete Max HR: 60 bpm Max Blood Pressure: 125/48mmHg Blood Pressure response to exercise: Normal blood pressure response during stress. Heart Rate response to exercise: WNL Chest Pain: No. Arrhythmia: No. ST Change: No. INTERPRETATION Stress EKG Conclusion: Baseline EKG showed ventricular paced rhythm. Nondiagnostic changes at peak s tress. No significant arrhythmias. Imaging Protocol IMAGE PROTOCOL: Rest Tc-99m/stress Tc-99m 1 day Rest: Stress: Viability: Radiopharm.Tc99m NhrlrflaiTb84j Sestamibi Dose10.7mCi 32.4mCi Duration 15min. 15min. Img Date 10/05/2020 10/05/2020 Inj-Img [id number]. 60min. Rest Admin Site:IV - Right AntecubitalAdministrator:RT Justine Pendleton)(N) Stress Admin Site: IV - Right AntecubitalAdministrator: RT Justine Marie)(N) STRESS DATA End Diast. Vol.146.0mlAv. Heart Rate94.0bpm End Syst. Vol.75.0mlCO Index BSA0.0L/min Myocardial Oeza446.0gEject. Iiedgepd41.0% Stress Rates Pk. Fill Rate3.39EDV/secLVtime Pk. Fill 119.88msec Pk. Empty Rate3.27ESV/secLVtime Pk. Omkgn666.75msec 1/3 Pk. Fill1.61EDV/sec Stress Scores Regional WT1.00Summed WT21.00 Regional WM0.00Summed WM14.00 LV Perfusion Scintigraphic images did not show any significant fixed or reversible defects. Wall Motion Abnormal septal wall motion probably secondary to paced rhythm. The left ventricular ejection fracti on was calculated at 49%. LV Perf. Quant 17 Seg. SSS1.00 17 Seg. SRS11.00 17 Seg. SDS0.00 Stress Defect Extent (% LAD)3.80Rest Defect Extent (% LAD)10.60Rev. Defect Extent (% LAD)0.00 Stress Defect Extent (% LCX) 0.00Rest Defect Extent (% LCX)40.00Rev. Defect Extent (% LCX)0.00 Stress Defect Extent (% RCA)0.00Rest Defect Extent (% RCA)22.20Rev. Defect Extent (% RCA)0.00 Stress Defect Extent (% ANGE)1.70Rest Defect Extent (% ANGE)21.50Rev. Defect Extent (% ANGE)0.00 Conclusion 1. Regadenoson cardioisotope stress test did not show any evidence of ischemia or infarct. 2. Abnormal septal wall motion probably secondary to paced rhythm. The left ventricular ejection fra ction was calculated at 49%. 3. Low risk for cardiac events. Signed by : Irma Gonzales, Electronically Approved : 10/05/2020 16:18:11
== END ==
LOC: NM 08:26
PROVIDERS: ATTEND Internal Medicine Cardiovascular Disease
DX: I25.10 Atherosclerotic heart disease of native coronary artery without angina pectoris (principal)
CPT/HCPCS: 78452; 93017; A9500; J2785

== ENCOUNTER 2020-11-01 08:29 | Outpatient (CLI) | payer MEDICARE ==
[2020-11-01] VITALS (8 sets, daily range): BP systolic 85–119; BP diastolic 50–73
[~2020-11-01] VITALS: Ht 180.3 cm; Wt 104.5 kg
[~2020-11-01 08:29] MED LIST changes: -REGADENOSON 0.4 MG/5 ML DISP.SYRIN. IV ONE
[2020-11-01 09:14] LABS: HEMATOCRIT 39.2 % (39.0-53.0); HEMOGLOBIN 13.4 g/dL (13.0-17.5); RED BLOOD COUNT 4.32 x10^6/uL (4.30-5.70); RED CELL DISTRIBUTION WIDTH 13.9 % (11.5-14.5); WHITE BLOOD COUNT 7.7 x10^3/uL (4.0-11.0)
[2020-11-01 09:20] LABS: PROTHROMBIN TIME PATIENT 14.9 SEC (11.7-14.0)
[2020-11-01 09:24] LABS: CALCIUM 8.5 mg/dL (8.5-10.1); CREATININE 0.9 mg/dL (0.7-1.3); GFR 80.6; POTASSIUM 4.3 mmol/L (3.5-5.1)
[2020-11-01] MEDS ORDERED: fentaNYL PF VIAL 100 MCG/2 ML VIAL ONE (09:27)
[2020-11-01] MEDS ORDERED: MIDAZOLAM HCL/PF 2 MG/2 ML VIAL. ONE (09:27)
[2020-11-01] MEDS ORDERED: ASPI-630 PO (09:29)
[2020-11-01] MEDS ORDERED: LIDOCAINE 2%/EPI 1:100,000 20 ML VIAL. ONE (09:35)
[2020-11-01] MEDS ORDERED: MIDAZOLAM HCL/PF 2 MG/2 ML VIAL. IV ONE (09:45)
[2020-11-01] MEDS ORDERED: LIDOCAINE 2%/EPI 1:100,000 20 ML VIAL. IJ ONE (09:45)
[2020-11-01] MEDS ORDERED: fentaNYL PF VIAL 100 MCG/2 ML VIAL IV ONE (09:45)
--- NOTE | 2020-11-01 09:48 | PDOC ---
MODERATE SEDATION ASSESSMENT RISKS/ALTERNATIVES Risks/Alternatives Risks and alternatives of this type of sedation and procedure discussed with: RISK/ALTERNATIVES: Patient H & P ON CHART H & P H & P on chart and reviewed for co-morbid conditions and appropriate labs. H&P ON CHART: Yes STATUS PREG STATUS ASSESSED: N/A MEDS/ALLERGIES REVIEWED Meds/Allergies Reviewed Medications and Allergies including time and route of recently administered narcotics and sedatives. MEDS/ALLERGIES REVIEWED: Yes ASA RATING ASA RATING: III AIRWAY ASSESSMENT Airway Assessment Airway patency, oral function limitations, presence of caps, crowns, dentures, partials, and ability to extend neck assessed. AIRWAY ASSESSMENT: Yes MALLAMPATI SCORE MALLAMPATI SCORE: II PRE-SEDATION ASSESSMENT PRE-SEDATION ASSESSMENT: Yes IRMA GONZALES MD Nov 01, 2020 09:48
[2020-11-01] MEDS ORDERED: ceFAZolin SODIUM 1 GM in IV NORMAL SALINE 100ML 100 ML IRR ONE (10:00)
--- NOTE | 2020-11-01 12:36 | CARD ---
MR#: [id number] Date of Study: 11/01/2020 Ordering Physician: TOMAS SIDHU, Referring Physician: TOMAS SIDHU, Tech: APPROVED REPORT PROCEDURES Medtronic dual-chamber permanent pacemaker generator change Sedation Time: 30 minutes Dose: 0.07 Gycm2 Fluoro Time: 0.01 MInutes INDICATIONS Sick sinus syndrome s/p permanent pacemaker implantation presenting with battery depletion PROCEDURE After explaining the risks, benefits, and alternative options, informed consent was obtained from the patient. The patient was brought to the cardiac catheterization lab and the left chest and shoulder were prepp ed and draped in a sterile manner. IV conscious sedation was used throughout procedure with appropriate monitoring and was performed in the presence of a registered nurse who was an independent trained observer other than the physician p erforming the procedure. Specimen(s) Removed: No Estimated Blood loss: 5 cc's. 20 cc of 2% lidocaine was infiltrated into the skin and subcutaneous tissues for local anesthesia. A n incision was made over the previous scar in the left infraclavicular fossa and using blunt dissecti on and cautery, the pocket was opened, the capsule exposed and opened and the previously placed gener ator removed from the pocket. The leads were detached from the generator, interrogated and found to be functioning well and very attached to a new Medtronic dual-chamber permanent pacemaker generator m polly number [id number] DR 01 serial number [id number]. This was placed in the pocket that was subsequently closed in 3 layers. Hemostasis was secured. The right atrial lead showed a pacing impedance of 380 ohms. The right ventricular lead showed pacing impedance of 551 ohms and a threshold of 0.75 V. Pat ient tolerated the procedure well. There were no immediate complications. CONCLUSION Successful Medtronic dual-chamber permanent pacemaker generator change for battery depletion. Signed by : Tomas Sidhu, Electronically Approved : 11/01/2020 12:36:39
--- NOTE | 2020-11-01 12:45 | NUR ---
Discharge Note: NICKY SHETH Discharge instructions and discharge home medications reviewed with Patient and a copy given. All questions have been answered and understanding verbalized. The following instructions and handouts were given: MODERATE SEDATION AND PACEMAKER BATTERY CHANGE. Discontinued RIGHT PERIPHERAL IV, NO COMPLICATIONS. LEFT CHEST PRESSURE DRESSING REMAINS INTACT. Patient discharged to HOME. RN ACCOMPANIED PT VIA WHEELCHAIR TO OUTPATIENT, WHERE HIS SON PICKED HIM UP.
== END 2020-11-01 12:30 | disposition home or self-care (01) ==
LOC: CCL 08:29
PROVIDERS: ATTEND Internal Medicine Cardiovascular Disease
DX: Z45.010 Encounter for checking and testing of cardiac pacemaker pulse generator [battery] (principal); I49.5 Sick sinus syndrome; I25.10 Atherosclerotic heart disease of native coronary artery without angina pectoris; I10 Essential (primary) hypertension; I48.91 Unspecified atrial fibrillation; E78.00 Pure hypercholesterolemia, unspecified; E66.9 Obesity, unspecified; M19.90 Unspecified osteoarthritis, unspecified site; Z79.899 Other long term (current) drug therapy; Z79.82 Long term (current) use of aspirin; Z98.890 Other specified postprocedural states
CPT/HCPCS: 33228; 36415; 80048; 85027; 85610; 99152; 99153; C1785; J0690; J2250; J3010; J3490; 33213

== ENCOUNTER 2020-11-28 11:47 | Inpatient (IN) | payer MEDICARE ==
[~2020-11-28] VITALS: Ht 180.3 cm; Wt 99.6 kg
[~2020-11-28 11:47] MED LIST changes: +ASPI-630 PO
--- NOTE | 2020-11-28 12:34 | PHYS DOC ---
Past Medical History Past Medical History: High Cholesterol, Hypertension Past Surgical History: Knee Replacement, Pacemaker Smoking Status: Never Smoker Alcohol Use: None Drug Use: None General Adult EDM: Chief Complaint: WEAKNESS/GENERALIZED HPI: HPI: Patient is a 85 year old male who presents with several weeks of generalized weakness. States that he has had chills, but cannot recall fever. Lives at home alone. Feels like his arms and his legs become more more difficult to lift. Had to go to his son's house, because he was unable to care for himself at home. He did have some chest pain, he has difficulty describing it. States it is intermittent. No clear aggravating factors. No chest pain presently. Denies dysuria, rashes. States that he has had intermittent abdominal discomfort, but is not experiencing any at this moment. Review of Systems: Review of Systems: Constitutional: Reports generalized weakness and chills. Denies fever [] Eyes: Denies change in visual acuity. [] HENT: Denies nasal congestion or sore throat. [] Respiratory: Denies cough or shortness of breath. [] Cardiovascular: Reports chest pain. Denies edema. [] GI: Ports intermittent abdominal pain. Denies nausea, vomiting, bloody stools or diarrhea. [] : Denies dysuria. [] Musculoskeletal: Denies back pain or joint pain. [] Integument: Denies rash. [] Neurologic: Reports generalized weakness. Denies headache, focal weakness or sensory changes. [] Endocrine: Denies polyuria or polydipsia. [] Lymphatic: Denies swollen glands. [] Psychiatric: Denies depression or anxiety. [] Heart Score: C/O Chest Pain: Yes HEART Score for Chest Pain: HEART Score for Chest Pain Response (Comments) Value History Slighlty/Non-Suspicious 0 ECG Nonspecific Repolarizatio 1 Age > 65 2 Risk Factors 1 or 2 Risk Factors 1 Total 4 Risk Factors: Risk Factors: DM, Current or recent (<one month) smoker, HTN, HLP, family history of CAD, obesity. Risk Scores: Score 0 - 3: 2.5% MACE over next 6 weeks - Discharge Home Score 4 - 6: 20.3% MACE over next 6 weeks - Admit for Clinical Observation Score 7 - 10: 72.7% MACE over next 6 weeks - Early Invasive Strategies Allergies: Allergies: Allergies Coded Allergies Type Severity Reaction Last Updated Verified No Known Drug Allergies 07/22/20 No Physical Exam: PE: Constitutional: Well developed, well nourished, no acute distress, non-toxic appearance. [] HENT: Normocephalic, atraumatic, bilateral external ears normal, oropharynx moist, no oral exudates, nose normal. [] Eyes: PERRLA, EOMI, conjunctiva normal, no discharge. [] Neck: Normal range of motion, no tenderness, supple, no stridor. [] Cardiovascular: Pacemaker pocket on left anterior chest still in process of healing. Well approximated. No erythema or purulent discharge. Heart rate regular rhythm, no murmur [] Lungs & Thorax: Bilateral breath sounds clear to auscultation [] Abdomen: Soft, nontender. Skin: Warm, dry, no erythema, no rash. [] Back: No tenderness, no CVA tenderness. [] Extremities: No tenderness, no cyanosis, no clubbing, ROM intact, no edema. [] Neurologic: Alert and oriented X 3, generalized 4/5 strength in all 4 extremities, normal sensory function, no focal deficits noted. [] Psychologic: Affect normal, judgement normal, mood normal. [] EKG: EKG: Regular rhythm. Right bundle branch block. Deep T wave inversions anteriorly. [] Radiology/Procedures: Radiology/Procedures: [] Impression: [facility] [address] [place] [address] IMAGING REPORT Signed PATIENT: NICKY SHETH ACCOUNT: [id number] : 1935 LOCATION: ER AGE: 85 SEX: M EXAM STATUS: REG ER ORD. PHYSICIAN: JOSH SAUNDERS MD REASON: shortness of breath PROCEDURE: CHEST AP ONLY EXAM: Chest, single view. HISTORY: Shortness of breath. COMPARISON: None. FINDINGS: A frontal view of the chest is obtained. There is diffuse interstitial infiltrate suspected partial lower lobe consolidation. There are small left greater than right pleural effusions. There is cardia megaly. There is a cardiac pacemaker with leads overlying expected position. There is no pneumothorax. There are suspected multiple healed rib fractures. IMPRESSION: 1. Diffuse interstitial infiltrate with partial bilateral lower lobe consolidation and small left greater than right pleural effusions. 2. Cardiomegaly. Electronically signed by: Mary Anne Griffiths MD (11/28/2020 12:45 PM) [id number] DICTATED and SIGNED BY: MARY ANNE GRIFFITHS MD DATE: 11/28/20 [id number] 0 Course & Med Decision Making: Course & Med Decision Making Pertinent Labs and Imaging studies reviewed. (See chart for details) Patient 85-year-old male who presents with a week of generalized weakness, occasional chest discomfort, shortness of breath. On arrival is afebrile, hemodynamically stable. Satting in the low 90s on room air. Ill-appearing on examination. Work-up shows evidence of a pneumonia, leukocytosis, elevated lactic acid to 2.5. Ceftriaxone and azithromycin ordered. Will be COVID PUI. UA pending Blood collected. Given his heart failure history, have refrain from aggressive fluid resuscitation. Potassium low to 2.8. Troponin elevated to 0.05, which does not NSTEMI criteria. Serial troponins ordered. Will be admitted to telemetry level care under his PCP, Dr. Hinojosa. [id number] Francisca Disclaimer: Francisca Disclaimer: This electronic medical record was generated, in whole or in part, using a voice recognition dictation system. Departure Departure Impression: Primary Impression: Sepsis Additional Impressions: Pneumonia Hypokalemia Person under investigation for COVID-19 Disposition: ADMITTED INPATIENT Admitting Physician: Nina Hinojosa Condition: STABLE Referrals: NINA HINOJOSA MD (PCP) JOSH SAUNDERS MD Nov 28, 2020 12:34
--- NOTE | 2020-11-28 12:38 | EKG ---
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
[2020-11-28 12:39] LABS: BASO # 0.1 x10^3/uL (0.0-0.2); BASO % 0 % (0-3); EOS % 0 % (0-3); HEMATOCRIT 36.1 % (39.0-53.0); HEMOGLOBIN 12.4 g/dL (13.0-17.5); LYMPH # 0.6 x10^3/uL (1.0-4.8); LYMPH % 2 % (24-48); MEAN CORPUSCULAR HEMOGLOBIN 31 pg (25-35); MEAN CORPUSCULAR HGB CONC 35 g/dL (31-37); MEAN CORPUSCULAR VOLUME 90 fL (79-100); MONO % 4 % (0-9); NEUT # 21.8 x10^3/uL (1.8-7.7); NEUT % 93 % (31-73); PLATELET COUNT 189 x10^3/uL (140-400); RED BLOOD COUNT 4.01 x10^6/uL (4.30-5.70); RED CELL DISTRIBUTION WIDTH 13.5 % (11.5-14.5); WHITE BLOOD COUNT 23.5 x10^3/uL (4.0-11.0)
--- NOTE | 2020-11-28 12:48 | RAD ---
EXAM: Chest, single view. HISTORY: Shortness of breath. COMPARISON: None. FINDINGS: A frontal view of the chest is obtained. There is diffuse interstitial infiltrate suspected partial lower lobe consolidation. There are small left greater than right pleural effusions. There i s cardia megaly. There is a cardiac pacemaker with leads overlying expected position. There is no pne umothorax. There are suspected multiple healed rib fractures. IMPRESSION: 1. Diffuse interstitial infiltrate with partial bilateral lower lobe consolidation and small left gre ater than right pleural effusions. 2. Cardiomegaly. Electronically signed by: Mary Anne Montague MD (11/28/2020 12:45 PM) [id number]
[2020-11-28] MEDS ORDERED: cefTRIAXone IV Push 1 GM VIAL. IVP ONE (13:30)
[2020-11-28] MEDS ORDERED: AZITHRMYCN 500MG IVPB FOR OMNI 250 ML IV ONE (13:30)
[2020-11-28] MEDS ORDERED: AZITHROMYCIN 500 MG in IV NORMAL SALINE 250ML 250 ML IV ONE (13:30)
[2020-11-28 13:33] LABS: ALBUMIN 2.1 g/dL (3.4-5.0); ALBUMIN/GLOBULIN RATIO 0.5 (1.0-1.7); CALCIUM 8.2 mg/dL (8.5-10.1); CREATININE 1.1 mg/dL (0.7-1.3); GFR 63.9; MAGNESIUM 1.9 mg/dL (1.8-2.4); TOTAL BILIRUBIN 1.3 mg/dL (0.2-1.0); TOTAL PROTEIN 6.7 g/dL (6.4-8.2)
[2020-11-28 13:35] LABS: POTASSIUM 2.8 mmol/L (3.5-5.1)
[2020-11-28 14:39] LABS: % BANDS 15 % (0-9); % LYMPHS 4 % (24-48); % MONOS 3 % (0-10); % SEGS 78 % (35-66); PLT ESTIMATE ADEQUATE (ADEQUATE)
[2020-11-28 14:41] LABS: TOXIC GRANULATION SLIGHT
[2020-11-28] MEDS ORDERED: POTASSIUM CHLORIDE 20MEQ 100 ML IV ONE (14:45)
[2020-11-28] MEDS ORDERED: ACETAMINOPHEN 500 MG TABLET PO ONE (14:45)
[2020-11-28] MEDS ORDERED: POTASSIUM CHLORIDE 20 MEQ TABLET.ER. PO ONE (14:45)
[2020-11-28] MEDS ORDERED: IV NORMAL SALINE 1000ML BAG 1,000 ML IV ONE (17:45)
--- NOTE | 2020-11-28 18:28 | NUR ---
This RN received report from NAEEM Pace in ER at 1820. Will pass along to ezekiel Holden RN.
[2020-11-28 19:00] VITALS: BP 108/59
[2020-11-28] MEDS ORDERED: ACET325T21 PO (19:54)
[2020-11-28] MEDS ORDERED: ACETAMINOPHEN 325 MG TABLET. PO PRN (20:30)
[2020-11-28] MEDS: HYDROcodone/APAP 5/325MG 1 TAB TABLET PO PRN (23:07)
[2020-11-28 23:29] VITALS: BP 103/59
[2020-11-29] MEDS: HYDROcodone/APAP 5/325MG 1 TAB TABLET PO PRN ×2 (03:05→09:15)
[2020-11-29 03:32] VITALS: BP 109/63
[2020-11-29 07:00] VITALS: BP 108/59
[2020-11-29] MEDS ORDERED: FLU VACC QUAD 21-22 (6MOS+) PF 0.5 ML SYRINGE. VAX IM ONE (09:00)
[2020-11-29] MEDS ORDERED: DOCUSATE SODIUM 100 MG CAPSULE. PO PRN (09:45)
--- NOTE | 2020-11-29 10:03 | HP ---
ADMIT DATE: 11/29/2020 LOCATION: He is in room 514. HISTORY OF PRESENT ILLNESS: This 85-year-old male who is well known to me, followed up in the office. The patient presented to the Emergency Room on the day of admission with generalized weakness, has been getting worse over the last couple of weeks or so. He had a fall with his entire right side hurting since the fall with difficulties doing self-care and went to live with his son. He has had some chills, but does not think he has had any fever. Minimal cough. He was found to have a leukocytosis with pneumonia and admitted for the same. PAST MEDICAL HISTORY: Remarkable for knee replacements, pacemaker with recent battery change, hyperlipidemia, hypertension, history of atrial fibrillation. MEDICATIONS: Brought with the patient listed on the computer have been addressed as are allergies. SOCIAL HISTORY: He is a nonsmoker, nondrinker. Does not abuse drugs. He is single, has a very supportive family. FAMILY HISTORY: Noncontributory. REVIEW OF SYSTEMS: As mentioned above. PHYSICAL EXAMINATION: GENERAL: He is a well-developed, well-nourished white male, no acute distress, lying in bed. His initial hypotension symptoms resolved with a couple liters of fluids. HEAD, EYES, EARS, NOSE AND THROAT: Unremarkable. NECK: Supple without adenopathy or thyromegaly. CHEST: Reveals decreased breath sounds bilaterally. HEART: Irregularly irregular without S3, S4 or murmur. ABDOMEN: Soft, nontender, without hepatosplenomegaly or masses. EXTREMITIES: Without cyanosis, clubbing or edema. NEUROLOGIC: He is intact. Chest x-ray shows diffuse bilateral infiltrates with bilateral lower lobe, mainly left consolidation. He is COVID negative. IMPRESSION: Sepsis due to pneumonia. He also has profound hypokalemia on admission with a potassium of 2.8. PLAN: IV antibiotics, hydration, potassium replacement and follow expectantly. MARGARITO GIFFORD: Danielle TID: [id number]
--- NOTE | 2020-11-29 10:49 | NUR ---
SW following. Discussed with RN, pt from home alone, room air, cardiac diet, COVID-19 negative. PT/OT ordered. Per RN, positive blood cultures. SW will continue to follow.
[2020-11-29 11:00] VITALS: BP 106/53
[2020-11-29 11:59] LABS: CALCIUM 8.1 mg/dL (8.5-10.1); CREATININE 0.9 mg/dL (0.7-1.3); GFR 80.6; POTASSIUM 3.6 mmol/L (3.5-5.1); PROTHROMBIN TIME PATIENT 69.5 SEC (11.7-14.0)
--- NOTE | 2020-11-29 12:16 | CONS ---
DATE OF CONSULTATION: 11/29/2020 REFERRING PHYSICIAN: Dr. Hinojosa. REASON FOR CONSULTATION: Bacteremia. HISTORY OF PRESENT ILLNESS: An 85-year-old male with history of hypertension, hyperlipidemia, pacemaker, AFib, presented to the ER on 11/28/2020 with complaints of generalized weakness. He does not recall any fevers. He lives at home alone. He had trouble with his legs and arms initially, then had generalized achiness. He also had some chest pain. No aggravating factors. He underwent recent battery change for his pacemaker. Upon presentation, his white count was 23.5 with bandemia. Sodium of 130, potassium of 2.8. Creatinine of 1.1. Lactate of 2.5. SARS-COVID was negative. The patient had blood cultures done on admission, 4/4 bottles are positive for gram-positive cocci in clusters. The patient is currently on ceftriaxone and azithromycin. ID consultation has been requested for antibiotic management. Today, the patient continues to feel weak. Denies any fevers. Does have some intermittent nausea, some discomfort in the neck. Denies any symptoms. Did have a history of fall at home prior to admission. PAST MEDICAL HISTORY: Hypertension, pacemaker, AFib, DJD. PAST SURGICAL HISTORY: Knee replacement on the left, pacemaker with recent battery change. Other surgeries reviewed. SOCIAL HISTORY: Denies smoking, ETOH or illicit drug use. Lives alone at home. FAMILY HISTORY: Noncontributory. REVIEW OF SYSTEMS: Negative except for above in HPI. PHYSICAL EXAMINATION: VITAL SIGNS: Afebrile. Vitals noted. GENERAL: Alert, oriented x 3 male, appears tired, in no acute distress. HEENT: Normocephalic, atraumatic. Anicteric. NECK: Supple, no JVD. LUNGS: Clear except for decreased breath sounds at the bases. HEART: S1, S2, systolic murmur. Pacemaker site looks okay. ABDOMEN: Soft, nontender, nondistended. EXTREMITIES: Right knee bruise present. Left knee TKA site looks well healed. No effusion, no cyanosis, no clubbing. DERMATOLOGIC: Warm, dry, no generalized rash. NEUROLOGIC: Alert and oriented x 3, grossly nonfocal. PSYCHIATRIC: Calm and cooperative. LABORATORY DATA: WBC 25.5, hemoglobin 12.4, platelets 189, bandemia. Creatinine 1.1. Sodium 130, potassium 2.8. Lactate 2.5, repeat is 1.8. LFTs noted. RADIOLOGY: Chest x-ray as above. IMPRESSION: 1. Sepsis from Gram-positive bacteremia. 2. Leukocytosis and bandemia. 3. Bacteremia gram-positive cocci, 4/4 bottles present on admission. 4. Generalized weakness. 5. History of fall. 6. Hypokalemia. 7. Hyponatremia. 8. History of PPM.H/O recent battery exchange. 9. History of atrial fibrillation. 10. Hypertension. 11. Rt Knee bruising RECOMMENDATIONS: 1. Start daptomycin,pending ID of GPC.. 2. Continue ceftriaxone but increase the dose to 2 GM q daily for now. 3. Discontinue azithromycin. 4. Repeat blood cultures in a.m. 5. Monitor labs and cultures. 6. Continue supportive care. Thank you, Dr. Hinojosa, for consulting Infectious Disease to participate in this patient's care. If you have any questions, do not hesitate to contact me. GUSTABO DR: Alexandru TID: [id number] [facility]
[2020-11-29] MEDS ORDERED: cefTRIAXone IV Push 1 GM VIAL. IVP SCH (13:00)
[2020-11-29 15:00] VITALS: BP 106/63
[2020-11-29] MEDS ORDERED: AZITHROMYCIN 500 MG in IV NORMAL SALINE 250ML 250 ML IV SCH (15:00)
[2020-11-29] MEDS: cefTRIAXone IV Push 2 GM VIAL. IVP SCH (18:55)
[2020-11-29] MEDS: DAPTOmycin (GENERIC) IVPB 500 MG in IV NORMAL SALINE 50ML 50 ML IV SCH (18:55)
[2020-11-29 19:00] VITALS: BP 121/68
[2020-11-29] MEDS: ATORVASTATIN CALCIUM 20 MG TABLET PO SCH (20:40)
[2020-11-29] MEDS: ACETAMINOPHEN 325 MG TABLET. PO SCH (20:40)
[2020-11-29] MEDS: LACTOBACILLUS RHAMNOSUS GG 1 CAPSULE. PO SCH (20:40)
[2020-11-29 23:00] VITALS: BP 117/57
[2020-11-30 03:00] VITALS: BP 130/67
[2020-11-30 07:00] VITALS: BP 115/61
[2020-11-30 08:27] LABS: BASO % 0 % (0-3); EOS % 0 % (0-3); HEMATOCRIT 31.9 % (39.0-53.0); HEMOGLOBIN 10.8 g/dL (13.0-17.5); LYMPH # 0.9 x10^3/uL (1.0-4.8); LYMPH % 7 % (24-48); MEAN CORPUSCULAR HEMOGLOBIN 30 pg (25-35); MEAN CORPUSCULAR HGB CONC 34 g/dL (31-37); MEAN CORPUSCULAR VOLUME 90 fL (79-100); MONO # 1.3 x10^3/uL (0.0-1.1); MONO % 9 % (0-9); NEUT # 12.1 x10^3/uL (1.8-7.7); NEUT % 84 % (31-73); PLATELET COUNT 183 x10^3/uL (140-400); RED BLOOD COUNT 3.54 x10^6/uL (4.30-5.70); RED CELL DISTRIBUTION WIDTH 14.1 % (11.5-14.5); WHITE BLOOD COUNT 14.4 x10^3/uL (4.0-11.0)
--- NOTE | 2020-11-30 08:28 | PDOC ---
Infectious Disease Note Subjective: Subjective Patient states he feels a little better Generalized aches and pains are improving Denies any joint pain Denies fever, nausea, vomiting, shortness of breath, diarrhea, abdominal pain, rash Otherwise as above Vital Signs: Vital Signs Vital Signs Date Time Temp Pulse Resp B/P (MAP) Pulse Ox O2 Delivery O2 Flow Rate FiO2 11/30/20 07:00 97.8 60 18 115/61 (79) 98 Room Air 97.8 11/29/20 20:10 2.0 Physical Exam: PHYSICAL EXAM GENERAL: Alert, oriented x 3 male, in no acute distress. HEENT: Normocephalic, atraumatic. Anicteric. NECK: Supple, no JVD. LUNGS: Clear except for decreased breath sounds at the bases. HEART: S1, S2, systolic murmur. Pacemaker site looks okay. ABDOMEN: Soft, nontender, nondistended. EXTREMITIES: Right knee bruise present. Left knee TKA site looks well healed. No effusion, no cyanosis, no clubbing. DERMATOLOGIC: Warm, dry, no generalized rash. NEUROLOGIC: Alert and oriented x 3, grossly nonfocal. PSYCHIATRIC: Calm and cooperative. Medications: Inpatient Meds: Medications reviewed. Labs: Lab Laboratory Tests Test 11/29/20 11:35 Prothrombin Time 69.5 SEC (11.7-14.0) Prothromb Time International Ratio 8.8 (0.8-1.1) Sodium Level 133 mmol/L (136-145) Potassium Level 3.6 mmol/L (3.5-5.1) Chloride Level 96 mmol/L (98-107) Carbon Dioxide Level 31 mmol/L (21-32) Anion Gap 6 (6-14) Blood Urea Nitrogen 17 mg/dL (8-26) Creatinine 0.9 mg/dL (0.7-1.3) Estimated GFR (Cockcroft-Gault) 80.6 Glucose Level 139 mg/dL (70-99) Calcium Level 8.1 mg/dL (8.5-10.1) Objective: Assessment: 1. Sepsis from Gram-positive bacteremia. 2. Leukocytosis and bandemia. 3. Bacteremia gram-positive cocci, 4/4 bottles present on admission. 4. Generalized weakness. 5. History of fall. 6. Hypokalemia. 7. Hyponatremia. 8. History of PPM.H/O recent battery exchange. 9. History of atrial fibrillation. 10. Hypertension. 11. Rt Knee bruising Plan: Plan of Care Continue daptomycin and ceftriaxone Follow-up repeat blood cultures from 11/30/2020 Monitor labs and cultures. Continue supportive care. ELIZABETH BALLESTEROS MD Nov 30, 2020 08:28
[2020-11-30 08:36] LABS: PROTHROMBIN TIME PATIENT 67.3 SEC (11.7-14.0)
[2020-11-30] MEDS: ASPIRIN CHEWABLE 81 MG TABLET. PO SCH (08:44)
[2020-11-30] MEDS: LACTOBACILLUS RHAMNOSUS GG 1 CAPSULE. PO SCH ×2 (08:44→20:23)
[2020-11-30 08:47] LABS: ALBUMIN 1.6 g/dL (3.4-5.0); ALBUMIN/GLOBULIN RATIO 0.4 (1.0-1.7); CREATININE 0.8 mg/dL (0.7-1.3); GFR 92.3; POTASSIUM 3.5 mmol/L (3.5-5.1); TOTAL PROTEIN 6.1 g/dL (6.4-8.2)
[2020-11-30] MEDS ORDERED: WARFARIN 2.5 MG TABLET. PO SCH (09:00)
[2020-11-30] MEDS ORDERED: AZITHRMYCN 500MG IVPB FOR OMNI 250 ML IV ONE (09:00)
[2020-11-30 11:00] VITALS: BP 112/55
[2020-11-30] MEDS: DAPTOmycin (GENERIC) IVPB 500 MG in IV NORMAL SALINE 50ML 50 ML IV SCH (13:19)
[2020-11-30] MEDS: cefTRIAXone IV Push 2 GM VIAL. IVP SCH (13:21)
[2020-11-30 15:00] VITALS: BP 141/76
[2020-11-30 19:00] VITALS: BP 115/57
[2020-11-30] MEDS: ATORVASTATIN CALCIUM 20 MG TABLET PO SCH (20:22)
[2020-11-30] MEDS: ACETAMINOPHEN 325 MG TABLET. PO SCH (20:23)
[2020-11-30 23:00] VITALS: BP 118/56
[2020-11-30] MEDS: HYDROcodone/APAP 5/325MG 1 TAB TABLET PO PRN (23:12)
--- NOTE | 2020-12-01 00:14 | PN ---
DATE: 11/30/2020 LOCATION: He is in room #514. SUBJECTIVE: This 85-year-old white male remains hospitalized with bacteremia and sepsis on admission. He states he is feeling somewhat better with aches and pains, being somewhat better today and easier to move around the bed. OBJECTIVE: VITAL SIGNS: Stable. He remains afebrile. GENERAL: He is awake and alert. CHEST: Shows decreased breath sounds at bases. HEART: Regular rate and rhythm. Pacemaker site which recently had a battery change is unremarkable. ABDOMEN: Soft, nontender, without hepatosplenomegaly or masses. EXTREMITIES: Without cyanosis, clubbing, significant edema. NEUROLOGIC: He is intact. LABORATORY DATA: INR this morning is 8.5 with no evidence of bleeding. We will allow it to gradually drift down with holding of the Coumadin. White count has decreased to 14,000 from 23,000 with improvement in his left shift. He is COVID-19 negative. Blood cultures are positive for 4/4 bottles for gram-positive cocci in clusters consistent with Staphylococcus aureus, most likely of uncertain etiology, unless it would be lung at this point in time. ASSESSMENT: 1. Gram-positive bacteremia with sepsis, possibly due to pneumonia. 2. Coagulopathy. PLAN: Continue present care. ID help appreciated. We will watch the protime gradually come down. OSMANI/JAIRO GIFFORD: Danielle TID: [id number]
[2020-12-01 03:00] VITALS: BP 134/54
[2020-12-01 07:00] VITALS: BP 117/55
[2020-12-01] MEDS ORDERED: DAPTOmycin (GENERIC) IVPB 580 MG in IV NORMAL SALINE 50ML 50 ML IV SCH (07:30)
--- NOTE | 2020-12-01 07:40 | PDOC ---
Infectious Disease Note Subjective: Subjective Patient states he feels a little better Generalized aches and pains are improving He says his movement has increased Denies any fever, nausea, vomiting, diarrhea, abdominal pain, chest pain Complains of right knee pain Vital Signs: Vital Signs Vital Signs Date Time Temp Pulse Resp B/P (MAP) Pulse Ox O2 Delivery O2 Flow Rate FiO2 12/01/20 03:00 97.6 60 20 134/54 (80) 97 Nasal Cannula 2.0 97.6 Physical Exam: PHYSICAL EXAM GENERAL: Alert, oriented x 3 male, in no acute distress. HEENT: Normocephalic, atraumatic. Anicteric. NECK: Supple, no JVD. LUNGS: Clear except for decreased breath sounds at the bases. HEART: S1, S2, systolic murmur. Pacemaker site looks okay. ABDOMEN: Soft, nontender, nondistended. EXTREMITIES: Right knee prepatellar swelling present. Erythema. Warmth. Some pain in the left knee TKA site No cyanosis or clubbing DERMATOLOGIC: Warm, dry, no generalized rash. NEUROLOGIC: Alert and oriented x 3, grossly nonfocal. PSYCHIATRIC: Calm and cooperative. Medications: Inpatient Meds: Medications reviewed. Objective: Assessment: Methicillin sensitive staph aureus bacteremia 4 of 4 bottles present on admiss ion 11/28/2020 Repeat blood cultures positive for GPC on 11/30/2020 Sepsis from Gram-positive bacteremia. Improving Leukocytosis and bandemia. Generalized weakness. Improving History of fall. Hypokalemia.Hyponatremia. History of PPM.H/O recent battery exchange. History of atrial fibrillation. Hypertension. Rt Knee pain and swelling Plan: Plan of Care Change Dapto and ceftriaxone to nafcillin Repeat blood cultures in a.m. Blood cultures from 11/30/2020 + for GPC Consult Ortho for evaluation of right knee swelling and pain Monitor labs and cultures. Continue supportive care. Will obtain SOO in a.m. Discussed with nursing staff ELIZABETH BALLESTEROS MD Dec 01, 2020 07:40
[2020-12-01 08:13] LABS: PROTHROMBIN TIME PATIENT 62.9 SEC (11.7-14.0)
[2020-12-01] MEDS: LACTOBACILLUS RHAMNOSUS GG 1 CAPSULE. PO SCH ×2 (08:52→21:13)
[2020-12-01] MEDS: ASPIRIN CHEWABLE 81 MG TABLET. PO SCH (08:52)
[2020-12-01 11:00] VITALS: BP 122/51
[2020-12-01] MEDS: NAFCILLIN 2 GM in IV DEXTROSE 5% 100ML 100 ML IV SCH ×3 (11:02→21:13)
[2020-12-01] MEDS ORDERED: POTASSIUM CHLORIDE 20 MEQ TABLET.ER. PO ONE (11:15)
--- NOTE | 2020-12-01 11:22 | PDOC2 ---
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 Denies any chest pain, SOA and palpitations. Reports that he has been falling but no passing out. At one point he fell and accidentally hit his right knee on the floor and now it is swollen. No complians of redness or oozing from his left chest incision from prior generator change. Further testing revealed that he has bacteremia and is needing LAMBERTO. Discussed risks and benefits and agreeable to proceed. PAST MEDICAL HISTORY Cardiovascular: AFIB, CAD, CHF, HTN, Hyperlipidemia, Other (SSS; cardiomyopathy) Pulmonary: No pertinent hx CENTRAL NERVOUS SYSTEM: Carpal Tunnel Syndrome GI: No pertinent hx Heme/Onc: No pertinent hx Hepatobiliary: No pertinent hx Psych: No pertinent hx Musculoskeletal: Osteoarthritis Rheumatologic: No pertinent hx Infectious disease: No pertinent hx Renal/: No pertinent hx Endocrine: No pertinent hx Dermatology: No pertinent hx PAST SURGICAL HISTORY Past Surgical History: Pacemaker, Total knee replacement (left), Other (PCI/BIPIN to LAD) FAMILY HISTORY Family History: Heart Disease SOCIAL HISTORY Smoke: No ALCOHOL: none Drugs: None Lives: Alone CURRENT MEDICATIONS CURRENT MEDICATIONS Current Medications Medications (Trade) Dose Ordered Sig/Gia Route PRN Reason Start Time Stop Time Status Last Admin Dose Admin Daptomycin 580 mg/ Sodium Chloride 50 ml @ 100 mls/hr Q24H IV 12/01/20 07:30 12/01/20 09:19 DC 12/01/20 08:52 ALLERGIES ALLERGIES: Coded Allergies: No Known Drug Allergies (Unverified , 07/22/20) ROS Review of System 14 point ROS evaluated with pertinent positives noted per HPI PHYSICAL EXAM General: Alert, Oriented X3, Cooperative, No acute distress HEENT: Atraumatic, Mucous membr. moist/pink Lungs: Clear to auscultation Heart: Normal S1, Normal S2, No murmurs, Other (AFIB) Abdomen: Soft, No tenderness Extremities: No cyanosis, No edema Skin: No breakdown, No significant lesion, Other (left chest surgical incision is well approximated no swelling, erythema with some scab formation and no tenderness to site) Psych/Mental Status: Mental status NL, Mood NL MUSCULOSKELETAL: Osteoarthritic changes both hands, Other (right knee effusion) VITALS/I&O VITALS/I&O: Vital Signs Date Time Temp Pulse Resp B/P (MAP) Pulse Ox O2 Delivery O2 Flow Rate FiO2 12/01/20 08:00 Nasal Cannula 2.0 12/01/20 07:00 98.1 62 20 117/55 (75) 96 98.1 I & O 11/30/20 11/30/20 12/01/20 15:00 23:00 07:00 Intake Total 100 ml 60 ml Output Total 250 ml 500 ml Balance -150 ml -440 ml LABS Lab: Laboratory Tests Test 12/01/20 05:55 Prothrombin Time 62.9 SEC (11.7-14.0) H Prothrombin Time INR 7.7 (0.8-1.1) *H ECHOCARDIOGRAM ECHOCARDIOGRAM <Conclusion> Left ventricle systolic function is low normal. The Ejection Fraction is 50%. Septal motion consistent with pacemaker activation. Pacer lead noted RA/RV. Trace to mild aortic regurgitation. Mild mitral regurgitation. Trace tricuspid regurgitation. The PA pressure was estimated at 25 mmHg. The ascending aorta is mild to moderately dilated at 4.2 cm. There is no evidence of significant pericardial effusion. DATE: 03/16/20 1800 ASSESSMENT/PLAN ASSESSMENT/PLAN 1. Mechanical fall with right knee effusion: mainly due to weakness 2. Sepsis with bacteremia (MRSA) 3. 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 Hx of SSS 5. Chronic AFIB: rate controlled with intermittent pacing 6. HTN: controlled 7. HLP: on statin 8. CAD: clinically stable 9. Coagulopathy with coumadin: antibiotic is contributing. INR 7.7 10. Mild acute on chronic diastolic CHF: compensated Recommendations 1. Hold coumadin. Consulting ortho, right knee xray 2. Continue ASA and secondary prevention measures including coreg for rate control. Hold lisinopril for nowand monitor BP trend 3. LAMBERTO for Saturday when INR is lower 4. PO lasix therapy and K replacement 5. Continue Abx per ID IRMA GONZALES MD 12/01/20 1605: CARDIAC CONSULT ASSESSMENT/PLAN ASSESSMENT/PLAN Patient seen and examined. 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 s/p mechanical fall with right knee hemarthrosis Hold Coumadin secondary to coagulopathy Continue treatment for sepsis and bacteremia per ID team Agree with LAMBERTO to rule out endocarditis Permanent atrial fibrillation rate controlled Mild acute on chronic diastolic heart failure better compensated Thank you for your consultation MINERVA QUINONEZ APRN Dec 01, 2020 11:22 IRMA GONZALES MD Dec 01, 2020 16:05
[2020-12-01] MEDS ORDERED: CARVEDILOL 6.25 MG TABLET. PO SCH (12:00)
[2020-12-01] MEDS: FUROSEMIDE 40 MG TABLET. PO SCH (12:12)
[2020-12-01] MEDS: CARVEDILOL 3.125 MG TABLET. PO SCH ×2 (12:13→16:42)
--- NOTE | 2020-12-01 14:53 | NUR ---
SW following. Discussed with RN, therapy recommending SNF. SW attempted to meet with pt, however could not rouse pt. SW will attempt to visit again later. COVID-19 negative. SW will continue to follow.
[2020-12-01 15:00] VITALS: BP 119/59
[2020-12-01 15:40] LABS: HEMATOCRIT 33.1 % (39.0-53.0); RED BLOOD COUNT 3.64 x10^6/uL (4.30-5.70); RED CELL DISTRIBUTION WIDTH 14.4 % (11.5-14.5); WHITE BLOOD COUNT 13.5 x10^3/uL (4.0-11.0)
[2020-12-01] MEDS ORDERED: LIDOCAINE 1% Multi-Dose 20 ML VIAL. INJ ONE (16:00)
--- NOTE | 2020-12-01 16:24 | RAD ---
EXAM: AP, lateral and oblique views of the right knee DATE: 12/01/2020 2:38 PM INDICATION: Reason: pain, effusion / Spl. Instructions: / History: COMPARISON: No Prior FINDINGS: No acute fracture or dislocation. Large joint effusion. Prepatellar soft tissue swelling, prepatellar bursal distention/bursitis. Bulky patellar enthesophytes. Moderate medial compartment joint space na rrowing with tricompartmental osteophytes. Vascular calcifications. IMPRESSION: 1. No acute fracture or dislocation. 2. Severe right knee joint osteoarthritis 3. Large knee joint effusion. 4. Mild prepatellar soft tissue swelling likely prepatellar bursal distention/bursitis Electronically signed by: Eitan Maria MD (12/01/2020 4:22 PM) [id number]
[2020-12-01 19:00] VITALS: BP 105/49
--- NOTE | 2020-12-01 20:19 | PN ---
DATE: 12/01/2020 DAILY PROGRESS NOTE LOCATION: He is in room 514. SUBJECTIVE: This 85-year-old white male remains hospitalized with bacteremia, sepsis on admission. He does feel a little bit better, but still has a lot of aches, particularly on the right side on which he fell and is asking for some BenGay for the same. He wants to get out of bed and I have discussed with nursing getting him up at least a couple of times today in addition. OBJECTIVE: VITAL SIGNS: Stable. He remains afebrile, awake and alert. CHEST: Decreased breath sounds at bases. HEART: Regular rate and rhythm. ABDOMEN: Benign. EXTREMITIES: Without cyanosis, clubbing, significant edema. He does have a right prepatellar fluid collection, but does not feel warm or tender. NEUROLOGICAL: He is intact. Second set of blood cultures 3/4 growing out gram-positive cocci. ID has changed antibiotics and the plan is for transesophageal echo tomorrow to rule out some sort of endocarditis. He does have a history, but it has been 15-16 years ago. Left knee replacement having been redone 3-4 times because of staph infection, but it would seem like too long time to show back up. IMPRESSION: 1. Staphylococcal bacteremia with sepsis, possibly due to pneumonia. 2. Coagulopathy with INR down to 7.7 this morning. No signs of bleeding. PLAN: Continue to follow INRs. Follow ID's lead on antibiotics. Agree with TTE and I will discuss with family who has questions. NEO DR: Danielle TID: [id number]
[2020-12-01] MEDS: ATORVASTATIN CALCIUM 20 MG TABLET PO SCH (21:14)
[2020-12-01] MEDS: ACETAMINOPHEN 325 MG TABLET. PO SCH (21:14)
[2020-12-01 23:00] VITALS: BP 98/50
[2020-12-02] MEDS: NAFCILLIN 2 GM in IV DEXTROSE 5% 100ML 100 ML IV SCH ×6 (00:26→21:00)
[2020-12-02 07:00] VITALS: BP 136/55
[2020-12-02] MEDS: ASPIRIN CHEWABLE 81 MG TABLET. PO SCH (08:31)
[2020-12-02] MEDS: FUROSEMIDE 40 MG TABLET. PO SCH (08:32)
[2020-12-02] MEDS: POTASSIUM CHLORIDE 20 MEQ TABLET.ER. PO SCH (08:32)
[2020-12-02] MEDS: LACTOBACILLUS RHAMNOSUS GG 1 CAPSULE. PO SCH ×2 (08:32→21:00)
[2020-12-02] MEDS: HYDROcodone/APAP 5/325MG 1 TAB TABLET PO PRN ×3 (08:33→21:00)
--- NOTE | 2020-12-02 08:35 | PN ---
DATE: 12/02/2020 DAILY PROGRESS NOTE LOCATION: He is in room 514. SUBJECTIVE: This 85-year-old male remains hospitalized with staphylococcal sepsis of currently unknown source. He feels like he is being punished for some reason for being here. OBJECTIVE: VITAL SIGNS: Stable. He is afebrile. GENERAL: He is awake and alert. CHEST: Clear. HEART: Regular. ABDOMEN: Benign. ASSESSMENT: Staphylococcal sepsis of uncertain etiology. PLAN: Further investigation to identify source of infection, ongoing IV antibiotics. LEYLA DR: Danielle TID: [id number]
--- NOTE | 2020-12-02 09:10 | CONS ---
DATE OF CONSULTATION: 12/02/2020 ORTHOPEDIC CONSULTATION REQUESTING PHYSICIAN: Eugene Hinojosa MD REASON FOR CONSULTATION: Right knee pain and swelling. HISTORY OF PRESENT ILLNESS: The patient is an 85-year-old male who was admitted for some generalized weakness and chills. He was found to have some gram-positive sepsis that was treated by Infectious Disease and had had right knee swelling and pain. When I asked him how long this has been going on, he states that the right knee has been hurting him for 30 years. As far as the recent swelling, he is really unsure of the onset of that, but he said the last time it was aspirated who ever did it got jelly-like fluid out of it and really could not get anymore. Apparently, according to his history from the Emergency Department, his weakness has been going on for several weeks. He just feels like his limbs are heavy and was unable to care for himself, so he went to his son's house, but otherwise lives alone and ambulates independently. PAST MEDICAL HISTORY: Hypercholesterolemia and hypertension, also significant for hyperlipidemia and atrial fibrillation. 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 SOCIAL HISTORY: Again, previously independently ambulatory, lives alone, recently staying with his son. Denies smoking, alcohol or drug use. MEDICATIONS: List is reviewed. FAMILY HISTORY: Noncontributory. REVIEW OF SYSTEMS: Really significant for generalized weakness and the fever and chills. He says that both knees hurt, the right more so than the left currently. PHYSICAL EXAMINATION: GENERAL: Pleasant, cooperative 85-year-old male, alert and oriented, no acute distress, examined at the bedside. MUSCULOSKELETAL: His left knee shows a well-healed midline incision. There is no redness, warmth or erythema. He has good stability. Patellofemoral tracking is adequate. Incision is large from previous revisions. On examination of the right knee, he is a bit warm and red over the prepatellar bursa area only, but he does have a moderate knee effusion as well, really no redness or warmth over the knee joint itself. He does hurt more over the prepatellar bursa on palpation and really to move either of the knee joints. Normal motion, stability of bilateral hips and ankles. Overall intact motor function, distal pulses, sensation, reflexes, skin in both lower extremities throughout. IMAGING DATA: X-rays of the right knee show tricompartmental degenerative change. No evidence of fracture. Previous x-rays of the left knee show a long stem cemented revision prosthesis with some subsidence. IMPRESSION: 1. Right knee pain and swelling both joint and prepatellar bursa. 2. History of left total knee arthroplasty. 3. Generalized weakness with some gram-positive sepsis. TREATMENT PLAN: He is apparently scheduled for a transesophageal echo but that is being deferred until INR normalizes more. At this time, I told him that I would like to get fluid out of both areas of his knee, both the prepatellar bursa and the knee joint itself to see if there is any evidence of any infection that we would have to treat and after informed consent was obtained, the prepatellar bursa area was aspirated under sterile conditions for about 1 mL of thick fluid, quite cloudy in nature and despite a large bore 18-gauge needle, I could not really get any further aspirate from that. The knee joint itself was separately aspirated from a lateral suprapatellar approach for approximately 40 mL of blood-tinged joint fluid. There was no purulence noted to the appearance of the prepatellar bursa. Effusion was much more concerning really than the knee joint aspirate. Both were sent for culture, aerobic, anaerobic, Gram stain and the knee joint sent for a white blood cell count. Further treatment pending the results of those. Activity as tolerated and he will have a regular diet in the interim. VARUN DR: Emir TID: [id number]
--- NOTE | 2020-12-02 09:50 | PDOC ---
MINERVA QUINONEZ DROP HAMMER MECHANIC 12/02/20 0950: CARDIO Progress Notes Date and Time Date of Service 12/02/2020 Time of Evaluation 0930 Subjective Subjective: No Chest Pain, No shortness of breath, No Palpitations Vitals Vitals Vital Signs Date Time Temp Pulse Resp B/P (MAP) Pulse Ox O2 Delivery O2 Flow Rate FiO2 12/02/20 08:33 Nasal Cannula 2.0 12/02/20 07:00 97.7 60 18 136/55 (82) 94 97.7 Weight Weight [ ] Input and Output Intake and Output Intake and Output 12/02/20 07:00 Intake Total 560 ml Output Total 600 ml Balance -40 ml Intake Oral 360 ml IV Total 200 ml Output Urine Total 600 ml # Voids 1 Microbiology Micro Microbiology 11/30/20 Blood Culture - Preliminary, Resulted Physical Exam HEENT: Neck Supple W Full Motion Chest: Symmetric LUNGS: Other (diminished bases) Heart: other (V paced with underlying AFIB) Abdomen: Soft N/T Extremities: Other (right knee effusion) Neurology: alert, oriented, follow commands Assessment Assessment 1. Mechanical fall with right knee effusion: mainly due to weakness. S/P knee aspiration per ortho 2. Sepsis with bacteremia (MRSA) 3. 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 Hx of SSS 5. Chronic AFIB: rate controlled with intermittent pacing 6. HTN: controlled 7. HLP: on statin 8. CAD: clinically stable 9. Coagulopathy with coumadin: antibiotic is contributing. INR 7.7 awaiting f/u 10. Mild acute on chronic diastolic CHF: compensated Recommendations 1. Hold coumadin. 2. Continue ASA and secondary prevention measures including coreg for rate control. Hold lisinopril for nowand monitor BP trend 3. SOO for Saturday when INR is lower 4. PO lasix therapy and K replacement 5. Continue Abx per ID Justicifation of Admission Dx: Justifications for Admission: Justification of Admission Dx: Yes IRMA GONZALES MD 12/02/20 1431: CARDIO Progress Notes Assessment Assessment Patient seen and examined. Agree with BILLING SERVICES MANAGER's assessment and plan. s/p mechanical fall with right knee hemarthrosis -underwent knee aspiration by Ortho team Hold Coumadin secondary to coagulopathy Continue treatment for sepsis and bacteremia per ID team Agree with SOO to rule out endocarditis on Saturday Permanent atrial fibrillation rate controlled Mild acute on chronic diastolic heart failure better compensated MINERVA QUINONEZ APRN Dec 02, 2020 09:50 IRMA GONZALES MD Dec 02, 2020 14:31
[2020-12-02 09:52] LABS: PROTHROMBIN TIME PATIENT 119.7 SEC (11.7-14.0)
--- NOTE | 2020-12-02 10:40 | PDOC ---
Infectious Disease Note Subjective: Subjective Patient states he feels about the same as yesterday Underwent right knee aspiration by Dr. Knowles earlier today Denies any fever, nausea, vomiting, diarrhea, abdominal pain, chest pain Vital Signs: Vital Signs Vital Signs Date Time Temp Pulse Resp B/P (MAP) Pulse Ox O2 Delivery O2 Flow Rate FiO2 12/02/20 08:33 Nasal Cannula 2.0 12/02/20 07:00 97.7 60 18 136/55 (82) 94 97.7 Physical Exam: PHYSICAL EXAM GENERAL: Alert, oriented x 3 male, in no acute distress. HEENT: Normocephalic, atraumatic. Anicteric. NECK: Supple, no JVD. LUNGS: Clear except for decreased breath sounds at the bases. HEART: S1, S2, systolic murmur present. Pacemaker site looks okay. PPM incision site dry scab no redness no fluctuance ABDOMEN: Soft, nontender, nondistended. EXTREMITIES: Right knee prepatellar swelling present. Erythema. Warmth. Synovial aspirate site Band-Aid present some pain in the left knee TKA site No cyanosis or clubbing DERMATOLOGIC: Warm, dry, no generalized rash. NEUROLOGIC: Alert and oriented x 3, grossly nonfocal. PSYCHIATRIC: Calm and cooperative. Medications: Inpatient Meds: Medications reviewed. Labs: Lab Laboratory Tests Test 12/02/20 09:10 Prothrombin Time 119.7 SEC (11.7-14.0) Prothromb Time International Ratio > 15.0 (0.8-1.1) Objective: Assessment: Methicillin sensitive staph aureus bacteremia 4 of 4 bottles present on admission 11/28/2020 Repeat blood cultures positive for GPC on 11/30/2020 Sepsis from Gram-positive bacteremia. Improving Leukocytosis and bandemia. Generalized weakness. Improving History of fall. Hypokalemia.Hyponatremia. History of PPM.H/O recent battery exchange. History of atrial fibrillation. Hypertension. Rt Knee pain and swelling Plan: Plan of Care Continue nafcillin Follow-up repeat blood cultures 09/2020 Repeat blood cultures positive from 11/30/2020 with staph aureus Orthopedics following for right knee pain and swelling Monitor labs and cultures. Continue supportive care. Cardiology consulted for SOO Discussed with nursing staff ELIZABETH BALLESTEROS MD Dec 02, 2020 10:40
[2020-12-02] MEDS ORDERED: PHYTONADIONE 10 MG/ML AMPUL. SQ ONE (10:45)
[2020-12-02 11:00] VITALS: BP 101/44
[2020-12-02] MEDS: CARVEDILOL 3.125 MG TABLET. PO SCH ×2 (11:09→17:42)
[2020-12-02 11:12] LABS: BF CLARITY TURBID; BF COLOR RED; BF SOURCE SYNOVIAL
[2020-12-02 11:13] LABS: BF MON % 8 %; BF PMN % 92 %; BF RBC COUNT 66500 /cmm (Not Established); BF WBC COUNT 30000 /cmm (Not Established)
--- NOTE | 2020-12-02 11:17 | NUR ---
SW following. Discussed with RN, pt having a SOO on Saturday. Pt feeling much better and stated today is the most he has eaten. SW awaiting therapy notes over the weekend to determine if eating and feeling better improves pt's ambulation. SW will continue to follow.
[2020-12-02 15:00] VITALS: BP 118/62
[2020-12-02 19:00] VITALS: BP 98/46
[2020-12-02] MEDS: SODIUM CHLORIDE 0.65% NASAL SPRAY 45ML BOTTLE. NS PRN (21:00)
[2020-12-02] MEDS: ACETAMINOPHEN 325 MG TABLET. PO SCH (21:00)
[2020-12-02] MEDS: ATORVASTATIN CALCIUM 20 MG TABLET PO SCH (21:00)
--- NOTE | 2020-12-02 21:15 | NUR ---
HS tylenol held, gave patient hydrocodone for knee pain instead, pain 8/10
[2020-12-02 23:00] VITALS: BP 114/53
[2020-12-03] MEDS: NAFCILLIN 2 GM in IV DEXTROSE 5% 100ML 100 ML IV SCH ×6 (00:46→20:53)
[2020-12-03] MEDS: SODIUM CHLORIDE 0.65% NASAL SPRAY 45ML BOTTLE. NS PRN (00:46)
[2020-12-03 03:00] VITALS: BP 106/51
--- NOTE | 2020-12-03 05:49 | NUR ---
Dressing covering aspiration site saturated with blood at 0500, patient continuing to bleed despite pressure dressing and several minutes of holding direct pressure, a new pressure dressing reapplied, also patient has continued to pull multiple "bloody chunks" from his nose, saline mist ordered and RN assisted patient with getting out of nose, patient verbalized relief. Will continue to monitor.
[2020-12-03 07:00] VITALS: BP 145/88
--- NOTE | 2020-12-03 07:46 | PDOC ---
Infectious Disease Note Subjective: Subjective Patient states she feels a little better No fevers, nausea, vomiting, diarrhea Has nosebleeds Has bleeding from synovial aspirate site which is currently under control with pressure dressing INR is 15 Blood cultures are positive from 12/02/2020 Vital Signs: Vital Signs Vital Signs Date Time Temp Pulse Resp B/P (MAP) Pulse Ox O2 Delivery O2 Flow Rate FiO2 12/03/20 03:00 98.1 62 18 106/51 (69) 95 Room Air 2.0 98.1 Physical Exam: PHYSICAL EXAM GENERAL: Alert, oriented x 3 male, in no acute distress. HEENT: Normocephalic, atraumatic. Anicteric. NECK: Supple, no JVD. LUNGS: Clear except for decreased breath sounds at the bases. HEART: S1, S2, systolic murmur present. Pacemaker site looks okay. PPM incision site dry scab no redness no fluctuance ABDOMEN: Soft, nontender, nondistended. EXTREMITIES: Right knee prepatellar swelling present. Erythema. Warmth. Synovial aspirate site Band-Aid present some pain in the left knee TKA site No cyanosis or clubbing DERMATOLOGIC: Warm, dry, no generalized rash. NEUROLOGIC: Alert and oriented x 3, grossly nonfocal. PSYCHIATRIC: Calm and cooperative. Medications: Inpatient Meds: Medications reviewed. Labs: Lab Laboratory Tests Test 12/02/20 08:22 12/02/20 09:10 Body Fluid Source Synovial Body Fluid Color Red Body Fluid Clarity Turbid Body Fluid Nucleated Cells 05523 /cmm (Not Body Fluid Mononuclear WBCs (%) 8 % Body Fluid Polymorphonuclear Cells 92 % Body Fluid Total RBCs Counted 47054 /cmm (Not Prothrombin Time 119.7 SEC (11.7-14.0) Prothromb Time International Ratio > 15.0 (0.8-1.1) Objective: Assessment: Persistent methicillin sensitive staph aureus bacteremia 4 of 4 bottles present on admission 11/28/2020, November 30 and December 02 Sepsis from Gram-positive bacteremia. Improving Leukocytosis and bandemia. Improving Generalized weakness. Improving History of fall. Hypokalemia.Hyponatremia. History of PPM.H/O recent battery exchange. History of atrial fibrillation. Hypertension. Rt Knee pain and swelling status post synovial aspirate WBC 30,000 RBC 66,000 Coagulopathy Plan: Plan of Care Continue nafcillin Follow-up repeat blood cultures 12/05 Repeat blood cultures positive from 11/30/2020 and 12/02 with staph aureus f/u synovial fluid cultures, pressure dressing applied to right knee due to bleeding Monitor labs and cultures. Continue supportive care. Cardiology consulted for SOO pending due to high INR Maintain aspiration precaution Discussed with nursing staff ELIZABETH BALLESTEROS MD Dec 03, 2020 07:46
[2020-12-03] MEDS: LACTOBACILLUS RHAMNOSUS GG 1 CAPSULE. PO SCH ×2 (08:13→20:53)
[2020-12-03] MEDS: ASPIRIN CHEWABLE 81 MG TABLET. PO SCH (08:13)
[2020-12-03] MEDS: POTASSIUM CHLORIDE 20 MEQ TABLET.ER. PO SCH (08:13)
[2020-12-03] MEDS: CARVEDILOL 3.125 MG TABLET. PO SCH ×2 (08:13→16:39)
[2020-12-03] MEDS: HYDROcodone/APAP 5/325MG 1 TAB TABLET PO PRN ×2 (08:14→16:39)
[2020-12-03] MEDS: FUROSEMIDE 40 MG TABLET. PO SCH (08:14)
--- NOTE | 2020-12-03 08:31 | PDOC ---
Provider Note Date of Service: DATE: 12/03/20 TIME: 08:29 Provider Note no temp, R knee effusuin, some blood re high INR, ? last dose of warf but 8.8 on admit- got vit K 10 mg yesterday- still nafcillen re mssa sepsis- has low albumin/high globulin, will screen for myeloma Justifications for Admission Other Justification BRADLEY ACEVES MD Dec 03, 2020 08:31
[2020-12-03 08:37] LABS: PROTHROMBIN TIME PATIENT 114.3 SEC (11.7-14.0)
[2020-12-03 10:15] LABS: HEMATOCRIT 32.8 % (39.0-53.0); RED BLOOD COUNT 3.63 x10^6/uL (4.30-5.70); RED CELL DISTRIBUTION WIDTH 14.1 % (11.5-14.5); WHITE BLOOD COUNT 11.9 x10^3/uL (4.0-11.0)
[2020-12-03 11:00] VITALS: BP 102/48
[2020-12-03] MEDS ORDERED: PHYTONADIONE 10 MG/ML AMPUL. SQ ONE (11:00)
--- NOTE | 2020-12-03 11:08 | PDOC ---
PROGRESS NOTES Date of Service: DATE: 12/03/20 TIME: 11:05 Subjective Subjective c/o bleeding from the aspiration site, otherwise no new symptoms Objective Objective Vital Signs Date Time Temp Pulse Resp B/P (MAP) Pulse Ox O2 Delivery O2 Flow Rate FiO2 12/03/20 10:27 Room Air 2.0 12/03/20 08:13 61 145/88 12/03/20 07:00 97.6 97 97.6 12/03/20 03:00 18 Intake and Output 12/03/20 07:00 Intake Total 660 ml Output Total 500 ml Balance 160 ml Intake Oral 460 ml IV Total 200 ml Output Urine Total 500 ml Physical Exam Abdomen: Soft, No tenderness Heart: Normal S1, Normal S2, No murmurs, Other (AFIB) Extremities: No cyanosis, No edema General: Alert, Oriented X3, Cooperative, No acute distress HEENT: Atraumatic, Mucous membr. moist/pink Lungs: Clear to auscultation MUSCULOSKELETAL: Osteoarthritic changes both hands, Other (right knee effusion) Psych/Mental Status: Mental status NL, Mood NL Skin: No breakdown, No significant lesion, Other (left chest surgical incision is well approximated no swelling, erythema with some scab formation and no tenderness to site) Assessment Assessment 1. Mechanical fall with right knee effusion: mainly due to weakness. S/P knee aspiration per ortho 2. Sepsis with bacteremia (MSSA): Continue intravenous antibiotics per ID team. Plan for SOO on Saturday. 3. SSS S/P PPM with generator change: 11/01/2020.[employer]tr[employer], clinically stable 4. Mild acute on chronic diastolic CHF: better compensated 5. Chronic AFIB: rate controlled with intermittent pacing. Coumadin on hold for coagulopathy. 6. HTN: controlled 7. HLP: on statin 8. CAD: Clinically stable Plan Plan of Care Problems Medical Problems: (1) Hypokalemia Status: Acute (2) Person under investigation for COVID-19 Status: Acute (3) Pneumonia Status: Acute (4) Sepsis Status: Acute Comment Review of Relevant I have reviewed the following items mel (where applicable) has been applied. Labs Laboratory Tests Test 12/03/20 06:00 White Blood Count 11.9 x10^3/uL (4.0-11.0) Red Blood Count 3.63 x10^6/uL (4.30-5.70) Hemoglobin 11.0 g/dL (13.0-17.5) Hematocrit 32.8 % (39.0-53.0) Mean Corpuscular Volume 90 fL (79-100) Mean Corpuscular Hemoglobin 30 pg (25-35) Mean Corpuscular Hemoglobin Concent 34 g/dL (31-37) Red Cell Distribution Width 14.1 % (11.5-14.5) Platelet Count 325 x10^3/uL (140-400) Prothrombin Time 114.3 SEC (11.7-14.0) Prothromb Time International Ratio > 15.0 (0.8-1.1) Fibrinogen 768 mg/dL (200-440) Lactate Dehydrogenase 143 U/L (85-227) Microbiology 12/02/20 Blood Culture - Final, Complete 12/02/20 Gram Stain - Final, Resulted 12/02/20 Aerobic and Anaerobic Culture - Preliminary, Resulted Medications Current Medications Phytonadione (Vitamin K Ampule) 10 mg 1X ONCE SQ ; Start 12/03/20 at 11:00; Stop 12/03/20 at 11:01; Status DC Ringer's Solution 1,000 ml @ 50 mls/hr Q20H IV ; Start 12/05/20 at 07:00; Stop 12/05/20 at 18:59 Sodium Chloride (Saline Mist Nasal) 1 hiro PRN Q1HR PRN NS NASAL CONGESTION Last administered on 12/03/20at 00:46; Start 12/02/20 at 20:45 Vitals/I & O Vital Sign - Last 24 Hours 12/02/20 12/02/20 12/02/20 12/02/20 11:09 11:09 15:00 16:43 Temp 97.9 97.9 Pulse 60 59 Resp 20 B/P (MAP) 136/55 118/62 (80) Pulse Ox 98 O2 Delivery Nasal Cannula Nasal Cannula Nasal Cannula O2 Flow Rate 2.0 2.0 2.0 12/02/20 12/02/20 12/02/20 12/02/20 17:42 17:42 19:00 20:00 Temp 98.0 98.0 Pulse 59 60 Resp 17 B/P (MAP) 118/62 98/46 (63) Pulse Ox 96 O2 Delivery Nasal Cannula Nasal Cannula Room Air O2 Flow Rate 2.0 2.0 12/02/20 12/02/20 12/02/20 12/03/20 21:00 21:30 23:00 03:00 Temp 98.1 98.1 98.1 98.1 Pulse 60 62 Resp 19 18 16 18 B/P (MAP) 114/53 (73) 106/51 (69) Pulse Ox 96 95 O2 Delivery Room Air Room Air Nasal Cannula Room Air O2 Flow Rate 2.0 2.0 12/03/20 12/03/20 12/03/20 12/03/20 07:00 08:13 08:14 10:27 Temp 97.6 97.6 Pulse 61 61 B/P (MAP) 145/88 (107) 145/88 Pulse Ox 97 O2 Delivery Room Air Room Air Room Air O2 Flow Rate 2.0 2.0 2.0 Intake and Output 12/02/20 12/02/20 12/03/20 15:00 23:00 07:00 Intake Total 240 ml 320 ml 100 ml Output Total 500 ml Balance 240 ml 320 ml -400 ml IRMA GONZALES MD Dec 03, 2020 11:08
[2020-12-03 15:00] VITALS: BP 142/60
--- NOTE | 2020-12-03 17:55 | PDOC ---
PROGRESS NOTES Date of Service DATE: 12/03/20 TIME: 17:47 Subjective Subjective Problems overnight: Continues to have right knee swelling and tenderness Objective Vital Signs Vital Signs Date Time Temp Pulse Resp B/P (MAP) Pulse Ox O2 Delivery O2 Flow Rate FiO2 12/03/20 16:39 59 142/60 12/03/20 16:39 Room Air 12/03/20 15:00 97.9 97 97.9 12/03/20 10:27 2.0 12/03/20 03:00 18 Physical Exam Aspiration site for knee joint continues to bleed and dressing remains intact. Still has mild right knee effusion and really more swelling and redness present over the prepatellar bursa. Tender on movement and palpation distal neurovascular status intact Labs Laboratory Tests Test 12/02/20 08:22 12/02/20 09:10 12/03/20 06:00 Body Fluid Source Synovial Body Fluid Color Red Body Fluid Clarity Turbid Body Fluid Nucleated Cells 86924 /cmm (Not Body Fluid Mononuclear WBCs (%) 8 % Body Fluid Polymorphonuclear Cells 92 % Body Fluid Total RBCs Counted 82628 /cmm (Not Prothrombin Time 119.7 SEC (11.7-14.0) 114.3 SEC (11.7-14.0) Prothromb Time International Ratio > 15.0 (0.8-1.1) > 15.0 (0.8-1.1) White Blood Count 11.9 x10^3/uL (4.0-11.0) Red Blood Count 3.63 x10^6/uL (4.30-5.70) Hemoglobin 11.0 g/dL (13.0-17.5) Hematocrit 32.8 % (39.0-53.0) Mean Corpuscular Volume 90 fL (79-100) Mean Corpuscular Hemoglobin 30 pg (25-35) Mean Corpuscular Hemoglobin Concent 34 g/dL (31-37) Red Cell Distribution Width 14.1 % (11.5-14.5) Platelet Count 325 x10^3/uL (140-400) Fibrinogen 768 mg/dL (200-440) Lactate Dehydrogenase 143 U/L (85-227) Laboratory Tests Test 12/03/20 06:00 White Blood Count 11.9 x10^3/uL (4.0-11.0) Red Blood Count 3.63 x10^6/uL (4.30-5.70) Hemoglobin 11.0 g/dL (13.0-17.5) Hematocrit 32.8 % (39.0-53.0) Mean Corpuscular Volume 90 fL (79-100) Mean Corpuscular Hemoglobin 30 pg (25-35) Mean Corpuscular Hemoglobin Concent 34 g/dL (31-37) Red Cell Distribution Width 14.1 % (11.5-14.5) Platelet Count 325 x10^3/uL (140-400) Prothrombin Time 114.3 SEC (11.7-14.0) Prothromb Time International Ratio > 15.0 (0.8-1.1) Fibrinogen 768 mg/dL (200-440) Lactate Dehydrogenase 143 U/L (85-227) White cell count of knee joint aspirate 33,000 and Gram stain significant for gram-positive cocci Gram stain on prepatellar bursa shows no organisms Assessment Assessment Gram-positive bacteremia with knee joint and prepatellar bursa swelling, INR greater than 15 Plan Plan of Care He has an unusual finding of gram-positive cocci on Gram stain of the knee fluid itself which looked more innocuous on appearance then the prepatellar bursa aspirate. White blood cell count of 33,000 in the joint Gram stain negative from the aspirate of the prepatellar bursa which actually looked worse clinically. Monitor cultures. I am really not inclined to undergo irrigation debridement or a knee arthroscopy at the present time due to the fact that he has an INR of greater than 15 and actually still continues to bleed from the knee joint aspiration site which was simply with an 18-gauge needle. Bacteremia seems to be under better control with the antibiotics per the labs and consultants findings. A decision on possible surgical intervention with arthroscopic irrigation debridement of the knee joint and potential debridement of the prepatellar bursa would be dependent on his clinical progress, laboratory findings including resolution of the markedly elevated INR currently. Justicifation of Admission Dx: Justifications for Admission: Justification of Admission Dx: N/A ARMINDA BUTLER MD Dec 03, 2020 17:55
[2020-12-03 19:40] VITALS: BP 125/56
[2020-12-03] MEDS: ACETAMINOPHEN 325 MG TABLET. PO SCH (20:53)
[2020-12-03] MEDS: ATORVASTATIN CALCIUM 20 MG TABLET PO SCH (20:53)
[2020-12-03] MEDS: DOCUSATE SODIUM 100 MG CAPSULE. PO SCH (20:53)
[2020-12-04] VITALS (8 sets, daily range): BP systolic 93–125; BP diastolic 49–71
[2020-12-04] MEDS: NAFCILLIN 2 GM in IV DEXTROSE 5% 100ML 100 ML IV SCH ×6 (00:45→21:36)
[2020-12-04] MEDS: CARVEDILOL 3.125 MG TABLET. PO SCH ×2 (08:00→16:35)
--- NOTE | 2020-12-04 08:50 | PDOC ---
Infectious Disease Note Subjective: Subjective Patient states she feels a little better No fevers, nausea, vomiting, diarrhea Has nosebleeds Has bleeding from synovial aspirate site which is currently under control with pressure dressing INR is 15 Blood cultures are positive from 12/02/2020 Vital Signs: Vital Signs Vital Signs Date Time Temp Pulse Resp B/P (MAP) Pulse Ox O2 Delivery O2 Flow Rate FiO2 12/04/20 02:01 97.8 60 20 110/60 (77) 94 Room Air 97.8 12/03/20 10:27 2.0 Physical Exam: PHYSICAL EXAM GENERAL: Alert, oriented x 3 male, in no acute distress. HEENT: Normocephalic, atraumatic. Anicteric. NECK: Supple, no JVD. LUNGS: Clear except for decreased breath sounds at the bases. HEART: S1, S2, systolic murmur present. Pacemaker site looks okay. PPM incision site dry scab no redness no fluctuance ABDOMEN: Soft, nontender, nondistended. EXTREMITIES: Right knee prepatellar swelling present. Erythema. Warmth. Synovial aspirate site Band-Aid present some pain in the left knee TKA site No cyanosis or clubbing DERMATOLOGIC: Warm, dry, no generalized rash. NEUROLOGIC: Alert and oriented x 3, grossly nonfocal. PSYCHIATRIC: Calm and cooperative. Medications: Inpatient Meds: Medications reviewed. Labs: Lab Laboratory Tests Test 12/03/20 10:30 Haptoglobin 273 mg/dL (38-329) Objective: Assessment: Persistent methicillin sensitive staph aureus bacteremia 4 of 4 bottles present on admission 11/28/2020, November 30 and December 02 History of PPM.H/O recent battery exchange. Sepsis from Gram-positive bacteremia. Improving Leukocytosis and bandemia. Improving Rt Knee pain and swelling status post synovial aspirate WBC 30,000 RBC 66,000 -Cultures staph aureus Generalized weakness. Improving History of fall. Hypokalemia.Hyponatremia. History of atrial fibrillation. Hypertension. Coagulopathy last INR of 15 Plan: Plan of Care Continue nafcillin Follow-up repeat blood cultures from 12/05 Follow-up synovial fluid cultures positive for staph aureus Monitor labs and cultures. Continue supportive care. Cardiology consulted for SOO pending due to high INR Maintain aspiration precaution Discussed with nursing staff ELIZABETH BALLESTEROS MD Dec 04, 2020 08:50
[2020-12-04] MEDS: FUROSEMIDE 40 MG TABLET. PO SCH (09:00)
[2020-12-04] MEDS ORDERED: fentaNYL PF VIAL 100 MCG/2 ML VIAL IVP PRN ×2 (09:30)
[2020-12-04] MEDS ORDERED: MORPHINE SULFATE 2 MG/ML INJ. IVP PRN (09:30)
[2020-12-04] MEDS ORDERED: PROCHLORPERAZINE 10 MG/2 ML VIAL. IVP PRN (09:30)
[2020-12-04] MEDS ORDERED: IV RINGERS,LACTATED 1000ML 1,000 ML IV SCH (09:30)
[2020-12-04] MEDS ORDERED: HYDROmorphone 2 MG/ML VIAL IVP PRN (09:30)
[2020-12-04] MEDS ORDERED: PHENYLEPHRINE in 0.9% NACL PF 1 MG/10 ML SYRINGE. IV ONE (10:43)
[2020-12-04] MEDS ORDERED: LIDOCAINE 2% PF 5 ML VIAL. ONE (10:43)
[2020-12-04] MEDS ORDERED: PROPOFOL 10 MG/ML (20ML) VIAL. IV ONE (10:43)
--- NOTE | 2020-12-04 10:54 | PDOC ---
Provider Note Date of Service: DATE: 12/04/20 TIME: 10:53 Provider Note in OR for R knee washout as source of mssa sepsis- needs SOO to r/o endocarditis as cultues remain + despite nafcillen Justifications for Admission Other Justification BRADLEY ACEVES MD Dec 04, 2020 10:54
[2020-12-04] MEDS ORDERED: SEVOFLURANE 61 TO 120 MINUTES. IH ONE (11:14)
[2020-12-04] MEDS ORDERED: DEXAMETHASONE SOD PHOS 4 MG/ML VIAL ONE (11:26)
[2020-12-04] MEDS ORDERED: ONDANSETRON PF 4 MG/2 ML VIAL. ONE (11:26)
[2020-12-04] MEDS ORDERED: fentaNYL PF VIAL 100 MCG/2 ML VIAL ONE (11:26)
--- NOTE | 2020-12-04 11:45 | PDOC ---
PROGRESS NOTES Date of Service: DATE: 12/04/20 TIME: 11:44 Subjective Subjective Continues to complain of right knee swelling and pain Objective Objective Vital Signs Date Time Temp Pulse Resp B/P (MAP) Pulse Ox O2 Delivery O2 Flow Rate FiO2 12/04/20 11:32 62 16 98/54 100 Simple Mask 10 12/04/20 09:45 98.4 98.4 Intake and Output 12/04/20 07:00 Intake Total 330 ml Output Total 1250 ml Balance -920 ml Intake Oral 330 ml Output Urine Total 1250 ml # Voids 1 Physical Exam Abdomen: Soft, No tenderness Heart: Normal S1, Normal S2, No murmurs, Other (AFIB) Extremities: No cyanosis, No edema General: Alert, Oriented X3, Cooperative, No acute distress HEENT: Atraumatic, Mucous membr. moist/pink Lungs: Clear to auscultation MUSCULOSKELETAL: Osteoarthritic changes both hands, Other (right knee effusion) Psych/Mental Status: Mental status NL, Mood NL Skin: No breakdown, No significant lesion, Other (left chest surgical incision is well approximated no swelling, erythema with some scab formation and no tenderness to site) Assessment Assessment 1. Mechanical fall with right knee effusion:S/P knee aspiration - plan for arthroscopic irrigation and debridement by ortho today 2. Sepsis with bacteremia (MSSA): Continue intravenous antibiotics per ID team. Plan for SOO tomorrow 3. SSS S/P PPM with generator change: 11/01/2020.[employer], clinically stable 4. Mild acute on chronic diastolic CHF: better compensated 5. Chronic AFIB: rate controlled with intermittent pacing. Coumadin on hold for coagulopathy. 6. HTN: controlled 7. HLP: on statin 8. CAD: Clinically stable Plan Plan of Care Problems Medical Problems: (1) Hypokalemia Status: Acute (2) Person under investigation for COVID-19 Status: Acute (3) Pneumonia Status: Acute (4) Sepsis Status: Acute Comment Review of Relevant I have reviewed the following items mel (where applicable) has been applied. Labs Microbiology 12/02/20 Blood Culture - Preliminary, Resulted 12/02/20 Gram Stain - Final, Resulted 12/02/20 Aerobic and Anaerobic Culture - Preliminary, Resulted 12/02/20 Antimicrobic Susceptibility - Preliminary, Resulted Medications Current Medications Dexamethasone Sodium Phosphate (Decadron) 4 mg STK-MED ONCE .ROUTE ; Start 12/04/20 at 11:26; Stop 12/04/20 at 11:26; Status DC Docusate Sodium (Colace) 100 mg BID PO Last administered on 12/03/20at 20:53; Start 12/03/20 at 21:00 Fentanyl Citrate (Fentanyl 2ml Vial) 25 mcg PRN Q5MIN PRN IVP MILD PAIN 1-3; Start 12/04/20 at 09:30; Stop 12/05/20 at 09:29 Fentanyl Citrate (Fentanyl 2ml Vial) 50 mcg PRN Q5MIN PRN IVP MODERATE PAIN 4- 6; Start 12/04/20 at 09:30; Stop 12/05/20 at 09:29 Fentanyl Citrate (Fentanyl 2ml Vial) 100 mcg STK-MED ONCE .ROUTE ; Start 12/04/20 at 11:26; Stop 12/04/20 at 11:26; Status DC Hydromorphone HCl (Dilaudid) 0.5 mg PRN Q10MIN PRN IVP SEVERE PAIN 7-10, 2nd CHOICE; Start 12/04/20 at 09:30; Stop 12/05/20 at 09:29 Lidocaine HCl (Lidocaine Pf 2% Vial) 5 ml STK-MED ONCE .ROUTE ; Start 12/04/20 at 10:43; Stop 12/04/20 at 10:43; Status DC Morphine Sulfate (Morphine Sulfate) 1 mg PRN Q10MIN PRN IVP SEVERE PAIN 7-10; Start 12/04/20 at 09:30; Stop 12/05/20 at 09:29 Ondansetron HCl (Zofran) 4 mg STK-MED ONCE .ROUTE ; Start 12/04/20 at 11:26; Stop 12/04/20 at 11:26; Status DC Phenylephrine HCl (PHENYLEPHRINE in 0.9% NACL PF) 1 mg STK-MED ONCE IV ; Start 12/04/20 at 10:43; Stop 12/04/20 at 10:43; Status DC Polyethylene Glycol (miraLAX PACKET) 17 gm PRN DAILY PRN PO CONSTIPATION; Start 12/03/20 at 19:00 Prochlorperazine Edisylate (Compazine) 5 mg PACU PRN PRN IVP NAUSEA, MRX1; Sta rt 12/04/20 at 09:30; Stop 12/05/20 at 09:29 Propofol (Diprivan) 200 mg STK-MED ONCE IV ; Start 12/04/20 at 10:43; Stop 12/04/20 at 10:43; Status DC Ringer's Solution 1,000 ml @ 30 mls/hr Q24H IV ; Start 12/04/20 at 09:30; Stop 12/04/20 at 21:29 Ringer's Solution 1,000 ml @ 50 mls/hr Q20H IV ; Start 12/05/20 at 07:00; Stop 12/05/20 at 18:59 Sevoflurane (Ultane) 60 ml STK-MED ONCE IH ; Start 12/04/20 at 11:14; Stop 12/04/20 at 11:14; Status DC Vitals/I & O Vital Sign - Last 24 Hours 12/03/20 12/03/20 12/03/20 12/03/20 15:00 16:39 16:39 18:44 Temp 97.9 97.9 Pulse 59 59 B/P (MAP) 142/60 (87) 142/60 Pulse Ox 97 O2 Delivery Room Air Room Air Room Air 12/03/20 12/03/20 12/03/20 12/04/20 19:40 20:50 23:59 02:01 Temp 97.5 97.8 97.5 97.8 Pulse 60 60 Resp 18 20 20 B/P (MAP) 125/56 (79) 110/60 (77) Pulse Ox 96 94 O2 Delivery Room Air Room Air Room Air Room Air 12/04/20 12/04/20 12/04/20 07:00 09:45 11:32 Temp 97.5 98.4 97.5 98.4 Pulse 62 53 62 Resp 17 16 16 B/P (MAP) 125/61 (82) 121/57 98/54 Pulse Ox 94 97 100 O2 Delivery Room Air Room Air Simple Mask O2 Flow Rate 2.0 10 Intake and Output0 12/03/20 12/03/20 12/04/20 15:00 23:00 07:00 Intake Total 240 ml 90 ml Output Total 800 ml 450 ml Balance 240 ml -800 ml -360 ml IRMA GONZALES MD Dec 04, 2020 11:45
--- NOTE | 2020-12-04 12:58 | PDOC2 ---
CONSULT Date of Consult Date of Consult DATE: 12/04/20 TIME: 12:39 Reason for Consult Reason for Consult: Elevated INR Referring Physician Referring Physician: Dr Mari Identification/Chief Complaint Chief Complaint Sepsis Source Source: Caregiver, Chart review History of Present Illness Reason for Visit: John Vargas is an 85 year old male with AFib on warfarin who presented to the ER on 11/28/2020 with generalized weakness. He underwent recent battery change for his pacemaker. Labs at admission showed a neutrophilic leucocytosis and elevated INR of 8.5. Warfarin has been on hold since then. He has been found to have Staph aureus (MSSA) bacteremia and SOO has been recommended for evaluation of endocarditis given persistent positive cultures. He has also had right knee swelling and received arthrocentesis from Dr Knowles. GS showed GPC and increased PMNs were noted, indicating septic arthritis. INR has been persistently elevated and infact, has continued to rise. Vitamin K 10 mg SQ was given on 12/02 with INR remaining >15 on 12/03. I recommended a repeat dose of 10 mg Vitamin K on 12/03. Repeat INR and CBC today is ordered and pending. He has not had any evidence of clinically significant bleeding. Hb has remained stable at ~11. Fibrinogen was elevated excluding a consumptive coagulopathy. Past Medical History Cardiovascular: AFIB, CAD, CHF, HTN, Hyperlipidemia, Other (SSS; cardiomyopathy) Pulmonary: No pertinent hx CENTRAL NERVOUS SYSTEM: Carpal Tunnel Syndrome GI: No pertinent hx Heme/Onc: No pertinent hx Hepatobiliary: No pertinent hx Psych: No pertinent hx Musculoskeletal: Osteoarthritis Rheumatologic: No pertinent hx Infectious disease: No pertinent hx Renal/: No pertinent hx Endocrine: No pertinent hx Dermatology: No pertinent hx Past Surgical History Past Surgical History: Pacemaker, Total knee replacement (left), Other (PCI/BIPIN to LAD) Family History Family History: Heart Disease Social History No ALCOHOL: none Drugs: None Lives: Alone Current Problem List Problem List Problems Medical Problems: (1) Hypokalemia Status: Acute (2) Person under investigation for COVID-19 Status: Acute (3) Pneumonia Status: Acute (4) Sepsis Status: Acute Current Medications Current Medications Current Medications Ceftriaxone Sodium (Rocephin) 1 gm 1X ONCE IVP Last administered on 11/28/20at 13:30; Start 11/28/20 at 13:30; Stop 11/28/20 at 13:31; Status DC Azithromycin 500 mg/Sodium Chloride 250 ml @ 250 mls/hr 1X ONCE IV ; Start 11/28/20 at 13:30; Stop 11/28/20 at 14:29; Status UNV Azithromycin 250 ml @ 250 mls/hr 1X ONCE IV Last administered on 11/28/20at 15:11; Start 11/28/20 at 13:30; Stop 11/28/20 at 14:29; Status DC Acetaminophen (Tylenol) 1,000 mg 1X ONCE PO Last administered on 11/28/20at 15:10; Start 11/28/20 at 14:45; Stop 11/28/20 at 14:46; Status DC Potassium Chloride/Water 100 ml @ 50 mls/hr 1X ONCE IV Last administered on 11/28/20at 16:20; Start 11/28/20 at 14:45; Stop 11/28/20 at 16:44; Status DC Potassium Chloride (Klor-Con) 40 meq 1X ONCE PO Last administered on 11/28/20at 16:21; Start 11/28/20 at 14:45; Stop 11/28/20 at 14:46; Status DC Sodium Chloride 1,000 ml @ 1,000 mls/hr 1X ONCE IV Last administered on 11/28/20at 17:41; Start 11/28/20 at 17:45; Stop 11/28/20 at 18:44; Status DC Acetaminophen (Tylenol) 650 mg PRN Q6HRS PRN PO MILD PAIN / TEMP > 100.3'F Last administered on 11/28/20at 20:36; Start 11/28/20 at 20:30 Influenza Virus Vaccine Quadrival (Flulaval Quad 0770-9801 Syringe) 0.5 ml ONCE ONCE VAX IM Last administered on 11/29/20at 10:06; Start 11/29/20 at 09:00; Stop 11/29/20 at 09:01; Status DC Acetaminophen/ Hydrocodone Bitart (Lortab 5/325) 1 tab PRN Q4HRS PRN PO PAIN mod/severe Last administered on 12/03/20at 16:39; Start 11/28/20 at 22:45 Ceftriaxone Sodium (Rocephin) 1 gm Q24H IVP ; Start 11/29/20 at 13:00; Stop 11/29/20 at 13:11; Status DC Azithromycin 250 ml @ 250 mls/hr DAILY ONCE IV ; Start 11/30/20 at 09:00; Stop 11/30/20 at 09:59; Status UNV Azithromycin 500 mg/Sodium Chloride 250 ml @ 250 mls/hr Q24H IV ; Start 11/29/20 at 15:00; Stop 11/29/20 at 13:50; Status DC Acetaminophen (Tylenol) 650 mg QHS PO Last administered on 12/03/20at 20:53; Start 11/29/20 at 21:00 Aspirin (Aspirin Chewable) 81 mg DAILY PO Last administered on 12/03/20at 08:13; Start 11/30/20 at 09:00 Docusate Sodium (Colace) 100 mg PRN BID PRN PO HARD STOOLS Last administered on 12/01/20at 12:10; Start 11/29/20 at 09:45 Warfarin Sodium (Coumadin) 3.75 mg DAILY PO ; Start 11/30/20 at 09:00; Status UNV Atorvastatin Calcium (Lipitor) 20 mg QHS PO Last administered on 12/03/20at 20:53; Start 11/29/20 at 21:00 Daptomycin 500 mg/ Sodium Chloride 50 ml @ 100 mls/hr Q24H IV Last administered on 11/30/20at 13:19; Start 11/29/20 at 13:00; Stop 12/01/20 at 07:32; Status DC Ceftriaxone Sodium (Rocephin) 2 gm Q24H IVP Last administered on 11/30/20at 13:21; Start 11/29/20 at 14:00; Stop 12/01/20 at 09:19; Status DC Lactobacillus Rhamnosus (Culturelle) 1 cap BID PO Last administered on 12/03/20at 20:53; Start 11/29/20 at 21:00 Daptomycin 580 mg/ Sodium Chloride 50 ml @ 100 mls/hr Q24H IV Last administered on 12/01/20at 08:52; Start 12/01/20 at 07:30; Stop 12/01/20 at 09:19; Status DC Nafcillin Sodium 2 gm/Dextrose 100 ml @ 200 mls/hr Q4HRS IV Last administered on 12/04/20at 08:38; Start 12/01/20 at 10:00 Carvedilol (Coreg) 6.25 mg DAILY PO ; Start 12/01/20 at 12:00; Stop 12/01/20 at 12:00; Status DC Furosemide (Lasix) 40 mg DAILY PO Last administered on 12/03/20at 08:14; Start 12/01/20 at 12:00 Potassium Chloride (Klor-Con) 20 meq DAILYWBKFT PO Last administered on 12/03/20at 08:13; Start 12/02/20 at 08:00 Potassium Chloride (Klor-Con) 20 meq 1X ONCE PO Last administered on 12/01/20at 12:12; Start 12/01/20 at 11:15; Stop 12/01/20 at 11:27; Status DC Carvedilol (Coreg) 3.125 mg BIDWMEALS PO Last administered on 12/03/20at 16:39; Start 12/01/20 at 12:00 Lidocaine HCl (Lidocaine 1% 20ml Vial) 10 ml 1X ONCE INJ ; Start 12/01/20 at 16:00; Stop 12/01/20 at 16:01; Status DC Ringer's Solution 1,000 ml @ 50 mls/hr Q20H IV ; Start 12/05/20 at 07:00; Stop 12/05/20 at 18:59 Phytonadione (Vitamin K Ampule) 10 mg 1X ONCE SQ Last administered on 12/02/20at 11:09; Start 12/02/20 at 10:45; Stop 12/02/20 at 10:46; Status DC Sodium Chloride (Saline Mist Nasal) 1 hiro PRN Q1HR PRN NS NASAL CONGESTION Last administered on 12/03/20at 00:46; Start 12/02/20 at 20:45 Phytonadione (Vitamin K Ampule) 10 mg 1X ONCE SQ Last administered on 12/03/20 at 11:17; Start 12/03/20 at 11:00; Stop 12/03/20 at 11:01; Status DC Docusate Sodium (Colace) 100 mg BID PO Last administered on 12/03/20at 20:53; Start 12/03/20 at 21:00 Polyethylene Glycol (miraLAX PACKET) 17 gm PRN DAILY PRN PO CONSTIPATION; Start 12/03/20 at 19:00 Fentanyl Citrate (Fentanyl 2ml Vial) 25 mcg PRN Q5MIN PRN IVP MILD PAIN 1-3; Start 12/04/20 at 09:30; Stop 12/05/20 at 09:29 Fentanyl Citrate (Fentanyl 2ml Vial) 50 mcg PRN Q5MIN PRN IVP MODERATE PAIN 4- 6; Start 12/04/20 at 09:30; Stop 12/05/20 at 09:29 Morphine Sulfate (Morphine Sulfate) 1 mg PRN Q10MIN PRN IVP SEVERE PAIN 7-10; Start 12/04/20 at 09:30; Stop 12/05/20 at 09:29 Ringer's Solution 1,000 ml @ 30 mls/hr Q24H IV ; Start 12/04/20 at 09:30; Stop 12/04/20 at 21:29 Hydromorphone HCl (Dilaudid) 0.5 mg PRN Q10MIN PRN IVP SEVERE PAIN 7-10, 2nd CHOICE; Start 12/04/20 at 09:30; Stop 12/05/20 at 09:29 Prochlorperazine Edisylate (Compazine) 5 mg PACU PRN PRN IVP NAUSEA, MRX1; Start 12/04/20 at 09:30; Stop 12/05/20 at 09:29 Propofol (Diprivan) 200 mg STK-MED ONCE IV ; Start 12/04/20 at 10:43; Stop 12/04/20 at 10:43; Status DC Lidocaine HCl (Lidocaine Pf 2% Vial) 5 ml STK-MED ONCE .ROUTE ; Start 12/04/20 at 10:43; Stop 12/04/20 at 10:43; Status DC Phenylephrine HCl (PHENYLEPHRINE in 0.9% NACL PF) 1 mg STK-MED ONCE IV ; Start 12/04/20 at 10:43; Stop 12/04/20 at 10:43; Status DC Sevoflurane (Ultane) 60 ml STK-MED ONCE IH ; Start 12/04/20 at 11:14; Stop 12/04/20 at 11:14; Status DC Dexamethasone Sodium Phosphate (Decadron) 4 mg STK-MED ONCE .ROUTE ; Start 12/04/20 at 11:26; Stop 12/04/20 at 11:26; Status DC Ondansetron HCl (Zofran) 4 mg STK-MED ONCE .ROUTE ; Start 12/04/20 at 11:26; Stop 12/04/20 at 11:26; Status DC Fentanyl Citrate (Fentanyl 2ml Vial) 100 mcg STK-MED ONCE .ROUTE ; Start 12/04/20 at 11:26; Stop 12/04/20 at 11:26; Status DC Active Scripts Active Reported Acetaminophen 325 Mg Tablet 650 Mg PO QHS Aspirin 81 Mg Tab.chew 1 Tab PO DAILY Men's Multivitamin Tablet (Multivit-Min/Folic/Vit K/Lycop) 1 Each Tablet 1 Each PO DAILY Carvedilol (Carvedilol) 6.25 Mg Tablet 6.25 Mg PO DAILY Pravastatin Sodium 80 Mg Tablet 1 Tab PO DAILY Lasix (Furosemide) 40 Mg Tablet 1 Tab PO DAILY Colace (Docusate Sodium) 100 Mg Capsule 1 Cap PO PRN BID PRN Lisinopril 10 Mg Tablet 1 Tab PO DAILY Coumadin (Warfarin Sodium) 2.5 Mg Tablet 1.5 Tab PO DAILY Allergies Allergies: Coded Allergies: No Known Drug Allergies (Unverified , 07/22/20) ROS Review of System Negative unless stated otherwise in HPI Physical Exam General: Alert, Oriented X3 HEENT: Atraumatic Lungs: Clear to auscultation Heart: Other (Irregular rhythm) Abdomen: Soft Extremities: No cyanosis Psych/Mental Status: Mental status NL Vitals VITALS Vital Signs Date Time Temp Pulse Resp B/P (MAP) Pulse Ox O2 Delivery O2 Flow Rate FiO2 12/04/20 11:49 58 16 111/57 93 Room Air 12/04/20 11:32 10 12/04/20 09:45 98.4 98.4 Labs Labs Laboratory Tests Test 12/03/20 06:00 12/03/20 10:30 White Blood Count 11.9 x10^3/uL (4.0-11.0) Red Blood Count 3.63 x10^6/uL (4.30-5.70) Hemoglobin 11.0 g/dL (13.0-17.5) Hematocrit 32.8 % (39.0-53.0) Mean Corpuscular Volume 90 fL (79-100) Mean Corpuscular Hemoglobin 30 pg (25-35) Mean Corpuscular Hemoglobin Concent 34 g/dL (31-37) Red Cell Distribution Width 14.1 % (11.5-14.5) Platelet Count 325 x10^3/uL (140-400) Prothrombin Time 114.3 SEC (11.7-14.0) Prothromb Time International Ratio > 15.0 (0.8-1.1) Fibrinogen 768 mg/dL (200-440) Lactate Dehydrogenase 143 U/L (85-227) Haptoglobin 273 mg/dL (38-329) Assessment/Plan Assessment/Plan Assessment: Supratherapeutic INR MSSA bacteremia Right knee septic arthritis Atrial fibrillation, rate controlled Normocytic anemia Recommendations: -Recommended an additional 10 mg Vitamin K, given on 12/03. Follow-up repeat INR today and redose Vitamin K if still >15 -Recommend 10 unit FFP and recheck INR if he develops clinically significant bleeding -Hold Warfarin. Consider switching to DOAC if feasible. Defer to cardiology regarding this -Check iron studies, B12. Follow-up on SPEP FLC results -Repeat INR daily -Management of bacteremia per ID -Rest per primary service DARIELA MOSQUERA MD Dec 04, 2020 12:57
[2020-12-04] MEDS: LACTOBACILLUS RHAMNOSUS GG 1 CAPSULE. PO SCH ×2 (12:59→21:36)
[2020-12-04] MEDS: POTASSIUM CHLORIDE 20 MEQ TABLET.ER. PO SCH (12:59)
[2020-12-04] MEDS: DOCUSATE SODIUM 100 MG CAPSULE. PO SCH ×2 (12:59→21:36)
[2020-12-04] MEDS: ASPIRIN CHEWABLE 81 MG TABLET. PO SCH (12:59)
[2020-12-04] MEDS: POLYETHYLENE GLYCOL 3350 17 GM PACKET. PO PRN (13:00)
[2020-12-04] MEDS: HYDROcodone/APAP 5/325MG 1 TAB TABLET PO PRN (13:12)
--- NOTE | 2020-12-04 13:22 | PDOC4 ---
Operative Note Operative Note Date of surgery: 1009 2020 Preoperative diagnosis: Septic right knee joint and septic prepatellar bursitis Postoperative diagnosis: Septic right knee joint and gouty versus septic prepatellar bursitis Operative procedure: Right knee joint arthroscopy, right knee prepatellar bursa arthroscopy with irrigation debridement of each Surgeon: Benson Anesthesia: General Estimated blood loss: 50 cc Complications: None Cultures: Prepatellar bursa was sent for Gram stain crystals aerobic anaerobic cultures, knee joint was sent for Gram stain aerobic anaerobic cultures Operative indications: Patient presented with gram-positive bacteremia based on cultures and a swollen painful right knee joint unclear how long the onset has been. Both the knee joint itself and the prepatellar bursa were aspirated and the knee joint was noted to have a white blood cell count of 30,000 with gram- positive cocci noted. The bursa despite a concern for potential infection based on the appearance of the aspirate did not show any organisms on Gram stain. Cultures are pending on both areas but his knee pain has not improved in fact the bursitis looks more big and red. I went over with him the possible concern of bleeding but the concern of organisms in the knee joint potentially causing more damage even while waiting for cultures. We talked through risks benefits postoperative course of the procedure including the concern of bleeding particularly with his elevated INR. Nevertheless I think it is reasonable to proceed at this time and he agrees to proceed with surgical evaluation and treatment having given informed consent Operative text: Patient was identified procedure verified patient placed in the supine position on the operating table. After adequate amounts of general anesthesia were administered the right lower extremity was prepped and draped in standard sterile fashion with a thigh tourniquet. After timeout was performed patient procedure identified and verified, no exsanguination was performed tourniquet was not inflated. Instead medial and lateral portals were established and the arthroscope was placed into the right knee and cultures obtained and then debridement carried out under visualization with the arthr oscopic shaver. He had very severe [id number] degenerative joint disease synovium was thoroughly debrided and a total in excess of 3 L of normal saline solution was irrigated through the knee joint. Next the bursa was entered with a small midline portal and a grainy type substance perhaps notable for gout or similar deposition disease. An additional distal portal was established in the prepatellar bursa and thorough debridement carried out with the arthroscopic shaver and the synovitis as well as the grainy deposit was all removed. Further thorough irrigation carried out normal saline solution. Knee joint and bursa were drained and closed with nylon suture. Sterile compressive dressings were placed and patient was returned to recovery room in stable condition having tolerated procedure well ARMINDA BUTLER MD Dec 04, 2020 13:22
[2020-12-04 13:32] LABS: BASO # 0.1 x10^3/uL (0.0-0.2); BASO % 0 % (0-3); EOS # 0.1 x10^3/uL (0.0-0.7); EOS % 1 % (0-3); LYMPH # 0.9 x10^3/uL (1.0-4.8); LYMPH % 6 % (24-48); MEAN CORPUSCULAR HEMOGLOBIN 30 pg (25-35); MEAN CORPUSCULAR HGB CONC 33 g/dL (31-37); MEAN CORPUSCULAR VOLUME 90 fL (79-100); MONO # 0.7 x10^3/uL (0.0-1.1); MONO % 5 % (0-9); NEUT # 14.1 x10^3/uL (1.8-7.7); NEUT % 89 % (31-73); PLATELET COUNT 368 x10^3/uL (140-400); RED BLOOD COUNT 3.67 x10^6/uL (4.30-5.70); RED CELL DISTRIBUTION WIDTH 14.6 % (11.5-14.5); WHITE BLOOD COUNT 15.9 x10^3/uL (4.0-11.0)
[2020-12-04 13:41] LABS: PROTHROMBIN TIME PATIENT 38.5 SEC (11.7-14.0)
[2020-12-04 14:05] LABS: % BANDS 7 % (0-9); % LYMPHS 9 % (24-48); % METAS 1 % (0-0); % MONOS 3 % (0-10); % MYELOS 2 % (0-0); % SEGS 78 % (35-66)
[2020-12-04 14:06] LABS: PLT ESTIMATE ADEQUATE (ADEQUATE)
[2020-12-04 14:09] LABS: POLYCHROMASIA SLIGHT
[2020-12-04 14:10] LABS: TOXIC GRANULATION MOD
[2020-12-04 19:20] LABS: HEMOGLOBIN 10.2 g/dL (13.0-17.5)
[2020-12-04] MEDS: ACETAMINOPHEN 325 MG TABLET. PO SCH (21:36)
[2020-12-04] MEDS: ATORVASTATIN CALCIUM 20 MG TABLET PO SCH (21:37)
[2020-12-05] MEDS: NAFCILLIN 2 GM in IV DEXTROSE 5% 100ML 100 ML IV SCH ×6 (01:09→19:43)
[2020-12-05 03:23] VITALS: BP 94/47
[2020-12-05] MEDS: HYDROcodone/APAP 5/325MG 1 TAB TABLET PO PRN ×2 (06:29→17:38)
[2020-12-05 07:00] VITALS: BP 103/50
[2020-12-05] MEDS ORDERED: IV RINGERS,LACTATED 1000ML 1,000 ML IV SCH (07:00)
[2020-12-05] MEDS: CARVEDILOL 3.125 MG TABLET. PO SCH (08:00)
--- NOTE | 2020-12-05 08:37 | PDOC ---
Infectious Disease Note Subjective Subjective pt is feeling ok, did have knee surgery and a lot of bleeding ROS ROS no n/v/d/sob Vital Sign Vital Signs Vital Signs Date Time Temp Pulse Resp B/P (MAP) Pulse Ox O2 Delivery O2 Flow Rate FiO2 12/05/20 07:00 Room Air 12/05/20 03:23 97.5 60 18 94/47 (63) 96 97.5 12/04/20 11:32 10 Physical Exam PHYSICAL EXAM GENERAL: Alert, oriented x 3 male, in no acute distress. HEENT: Normocephalic, atraumatic. Anicteric. NECK: Supple, no JVD. LUNGS: Clear except for decreased breath sounds at the bases. HEART: S1, S2, systolic murmur present. Pacemaker site looks okay. PPM incision site dry scab no redness no fluctuance ABDOMEN: Soft, nontender, nondistended. EXTREMITIES: Right knee prepatellar swelling present. Erythema. Warmth. post surgery dressing not opened No cyanosis or clubbing DERMATOLOGIC: Warm, dry, no generalized rash. NEUROLOGIC: Alert and oriented x 3, grossly nonfocal. PSYCHIATRIC: Calm and cooperative. Labs Lab Laboratory Tests Test 12/04/20 13:00 12/04/20 19:05 White Blood Count 15.9 x10^3/uL (4.0-11.0) Red Blood Count 3.67 x10^6/uL (4.30-5.70) Hemoglobin 11.0 g/dL (13.0-17.5) 10.2 g/dL (13.0-17.5) Hematocrit 33.0 % (39.0-53.0) 31.0 % (39.0-53.0) Mean Corpuscular Volume 90 fL (79-100) Mean Corpuscular Hemoglobin 30 pg (25-35) Mean Corpuscular Hemoglobin Concent 33 g/dL (31-37) 33 g/dL (31-37) Red Cell Distribution Width 14.6 % (11.5-14.5) Platelet Count 368 x10^3/uL (140-400) Neutrophils (%) (Auto) 89 % (31-73) Lymphocytes (%) (Auto) 6 % (24-48) Monocytes (%) (Auto) 5 % (0-9) Eosinophils (%) (Auto) 1 % (0-3) Basophils (%) (Auto) 0 % (0-3) Neutrophils # (Auto) 14.1 x10^3/uL (1.8-7.7) Lymphocytes # (Auto) 0.9 x10^3/uL (1.0-4.8) Monocytes # (Auto) 0.7 x10^3/uL (0.0-1.1) Eosinophils # (Auto) 0.1 x10^3/uL (0.0-0.7) Basophils # (Auto) 0.1 x10^3/uL (0.0-0.2) Segmented Neutrophils % 78 % (35-66) Band Neutrophils % 7 % (0-9) Lymphocytes % 9 % (24-48) Monocytes % 3 % (0-10) Metamyelocytes % 1 % (0-0) Myelocytes % 2 % (0-0) Toxic Granulation Mod Platelet Estimate Adequate (ADEQUATE) Polychromasia Slight Prothrombin Time 38.5 SEC (11.7-14.0) Prothromb Time International Ratio 4.1 (0.8-1.1) Micro BC from 12/05 pending Objective Assessment Persistent methicillin sensitive staph aureus bacteremia 4 of 4 bottles present on admission 11/28/2020, November 30 and December 02 History of PPM.H/O recent battery exchange. Sepsis from Gram-positive bacteremia. Improving Leukocytosis and bandemia. Improving Rt Knee pain and swelling status post synovial aspirate WBC 30,000 RBC 66,000 -Cultures staph aureus Generalized weakness. Improving History of fall. Hypokalemia.Hyponatremia. History of atrial fibrillation. Hypertension. Coagulopathy last INR of 15 Plan Plan of Care Continue nafcillin Follow-up repeat blood cultures from 12/05 Follow-up synovial fluid cultures positive for staph aureus Monitor labs and cultures. Continue supportive care. Cardiology consulted for SOO pending due to high INR Maintain aspiration precaution Discussed with nursing staff JYOTI BALLESTEROS MD Dec 05, 2020 08:37
[2020-12-05] MEDS: FUROSEMIDE 40 MG TABLET. PO SCH (09:00)
[2020-12-05] MEDS: ASPIRIN CHEWABLE 81 MG TABLET. PO SCH (09:00)
[2020-12-05] MEDS ORDERED: PROPOFOL 10 MG/ML (20ML) VIAL. IV ONE (09:29)
[2020-12-05 09:55] LABS: BASO # 0.1 x10^3/uL (0.0-0.2); BASO % 1 % (0-3); EOS # 0.2 x10^3/uL (0.0-0.7); EOS % 1 % (0-3); HEMATOCRIT 28.6 % (39.0-53.0); HEMOGLOBIN 9.5 g/dL (13.0-17.5); LYMPH # 1.3 x10^3/uL (1.0-4.8); LYMPH % 10 % (24-48); MEAN CORPUSCULAR HEMOGLOBIN 30 pg (25-35); MEAN CORPUSCULAR HGB CONC 33 g/dL (31-37); MEAN CORPUSCULAR VOLUME 90 fL (79-100); MONO # 0.9 x10^3/uL (0.0-1.1); MONO % 7 % (0-9); NEUT # 10.8 x10^3/uL (1.8-7.7); NEUT % 82 % (31-73); PLATELET COUNT 358 x10^3/uL (140-400); RED BLOOD COUNT 3.18 x10^6/uL (4.30-5.70); RED CELL DISTRIBUTION WIDTH 14.7 % (11.5-14.5); WHITE BLOOD COUNT 13.3 x10^3/uL (4.0-11.0)
--- NOTE | 2020-12-05 10:01 | PDOC ---
PROGRESS NOTES Date of Service DATE: 12/05/20 TIME: 09:58 Subjective Subjective Problems overnight: Yesterday soaked his knee dressings and was replaced now with a pressure dressing which shows no drainage, complaints of mild pain no worse than before surgery Objective Vital Signs Vital Signs Date Time Temp Pulse Resp B/P (MAP) Pulse Ox O2 Delivery O2 Flow Rate FiO2 12/05/20 07:00 97.7 62 18 103/50 (67) 91 Room Air 97.7 12/04/20 11:32 10 Physical Exam Pressure dressing is intact to the right knee calf is soft and nontender distal neurovascular status intact Labs Laboratory Tests Test 12/03/20 10:30 12/04/20 13:00 12/04/20 19:05 Haptoglobin 273 mg/dL (38-329) White Blood Count 15.9 x10^3/uL (4.0-11.0) Red Blood Count 3.67 x10^6/uL (4.30-5.70) Hemoglobin 11.0 g/dL (13.0-17.5) 10.2 g/dL (13.0-17.5) Hematocrit 33.0 % (39.0-53.0) 31.0 % (39.0-53.0) Mean Corpuscular Volume 90 fL (79-100) Mean Corpuscular Hemoglobin 30 pg (25-35) Mean Corpuscular Hemoglobin Concent 33 g/dL (31-37) 33 g/dL (31-37) Red Cell Distribution Width 14.6 % (11.5-14.5) Platelet Count 368 x10^3/uL (140-400) Neutrophils (%) (Auto) 89 % (31-73) Lymphocytes (%) (Auto) 6 % (24-48) Monocytes (%) (Auto) 5 % (0-9) Eosinophils (%) (Auto) 1 % (0-3) Basophils (%) (Auto) 0 % (0-3) Neutrophils # (Auto) 14.1 x10^3/uL (1.8-7.7) Lymphocytes # (Auto) 0.9 x10^3/uL (1.0-4.8) Monocytes # (Auto) 0.7 x10^3/uL (0.0-1.1) Eosinophils # (Auto) 0.1 x10^3/uL (0.0-0.7) Basophils # (Auto) 0.1 x10^3/uL (0.0-0.2) Segmented Neutrophils % 78 % (35-66) Band Neutrophils % 7 % (0-9) Lymphocytes % 9 % (24-48) Monocytes % 3 % (0-10) Metamyelocytes % 1 % (0-0) Myelocytes % 2 % (0-0) Toxic Granulation Mod Platelet Estimate Adequate (ADEQUATE) Polychromasia Slight Prothrombin Time 38.5 SEC (11.7-14.0) Prothromb Time International Ratio 4.1 (0.8-1.1) Laboratory Tests Test 12/04/20 13:00 12/04/20 19:05 White Blood Count 15.9 x10^3/uL (4.0-11.0) Red Blood Count 3.67 x10^6/uL (4.30-5.70) Hemoglobin 11.0 g/dL (13.0-17.5) 10.2 g/dL (13.0-17.5) Hematocrit 33.0 % (39.0-53.0) 31.0 % (39.0-53.0) Mean Corpuscular Volume 90 fL (79-100) Mean Corpuscular Hemoglobin 30 pg (25-35) Mean Corpuscular Hemoglobin Concent 33 g/dL (31-37) 33 g/dL (31-37) Red Cell Distribution Width 14.6 % (11.5-14.5) Platelet Count 368 x10^3/uL (140-400) Neutrophils (%) (Auto) 89 % (31-73) Lymphocytes (%) (Auto) 6 % (24-48) Monocytes (%) (Auto) 5 % (0-9) Eosinophils (%) (Auto) 1 % (0-3) Basophils (%) (Auto) 0 % (0-3) Neutrophils # (Auto) 14.1 x10^3/uL (1.8-7.7) Lymphocytes # (Auto) 0.9 x10^3/uL (1.0-4.8) Monocytes # (Auto) 0.7 x10^3/uL (0.0-1.1) Eosinophils # (Auto) 0.1 x10^3/uL (0.0-0.7) Basophils # (Auto) 0.1 x10^3/uL (0.0-0.2) Segmented Neutrophils % 78 % (35-66) Band Neutrophils % 7 % (0-9) Lymphocytes % 9 % (24-48) Monocytes % 3 % (0-10) Metamyelocytes % 1 % (0-0) Myelocytes % 2 % (0-0) Toxic Granulation Mod Platelet Estimate Adequate (ADEQUATE) Polychromasia Slight Prothrombin Time 38.5 SEC (11.7-14.0) Prothromb Time International Ratio 4.1 (0.8-1.1) Assessment Assessment POD#1 irrigation debridement of right knee joint and prepatellar bursa Plan Plan of Care Cultures from aspirate still pending, new cultures from intraoperative also pending Is n.p.o. for a transesophageal echo scheduled today Activity as tolerated, medically continue to treat markedly elevated INR Justicifation of Admission Dx: Justifications for Admission: Justification of Admission Dx: N/A ARMINDA BUTLER MD Dec 05, 2020 10:01
[2020-12-05] MEDS ORDERED: BENZOCAINE ONE 20% MUCOSAL SPRAY. (10:06)
[2020-12-05] MEDS ORDERED: LIDOCAINE 2% VISCOUS 15 ML SOLUTION. ONE (10:06)
[2020-12-05] MEDS ORDERED: LIDOCAINE 2% TOPICAL JELLY 30GM TUBE. TP ONE (10:06)
[2020-12-05 10:07] LABS: CALCIUM 7.2 mg/dL (8.5-10.1); CREATININE 1.8 mg/dL (0.7-1.3); GFR 36.2
[2020-12-05 12:02] VITALS: BP 113/77
[2020-12-05] MEDS: LACTOBACILLUS RHAMNOSUS GG 1 CAPSULE. PO SCH ×2 (12:05→20:31)
[2020-12-05] MEDS: DOCUSATE SODIUM 100 MG CAPSULE. PO SCH ×2 (12:05→20:31)
[2020-12-05] MEDS: DAPTOmycin (GENERIC) IVPB 500 MG in IV NORMAL SALINE 50ML 50 ML IV SCH (12:05)
[2020-12-05] MEDS: POTASSIUM CHLORIDE 20 MEQ TABLET.ER. PO SCH (12:05)
--- NOTE | 2020-12-05 12:44 | CARD ---
MR#: [id number] Date of Study: 12/05/2020 Ordering Physician: MINERVA QUINONEZ, Referring Physician: Phil HUBER: Lorne Crum [facility] APPROVED REPORT EXAM: Transesophageal echocardiogram with color flow Doppler. INDICATION Bacteremia Surgery/Intervention Pacemaker: Reason For Test : Rule out endocarditis. PROCEDURE After obtaining informed consent, patient underwent transesophageal echo in the PACU. Type of Sedation : Conscious Sedation Sedation was administered by Anesthesia. Sedation was achieved with Propofol 60 intravenously. Transesophageal probe was inserted and advanced into esophagus by Tomas Sidhu MD. The SOO was performed without complications. Throughout the procedure, the blood pressure, pulse oximetry, cardiac rhythm, and rate were monitored . The patient tolerated the procedure without adverse effects. Recovery from conscious sedation was une ventful and vital signs were stable. LEFT VENTRICLE The left ventricle is normal size. There is normal left ventricular wall thickness. The left ventricu lar systolic function is normal. The ejection fraction is 60-65%. There is normal LV segmental wall m otion. No left ventricle thrombus noted on this study. There is no ventricular septal defect visualiz ed. There is no left ventricular aneurysm. There is no mass noted in the left ventricle. RIGHT VENTRICLE The right ventricle is normal size. There is normal right ventricular wall thickness. The right ventr icular systolic function is normal. ATRIA The left atrium is mildly dilated. The right atrium size is normal. The interatrial septum is intact with no evidence for an atrial septal defect or patent foramen ovale as noted on 2-D or Doppler imagi ng. AORTIC VALVE Restricted motion of right cusp. Doppler and Color Flow revealed trace aortic regurgitation. There is no significant aortic valvular stenosis. There is no aortic valvular vegetation. MITRAL VALVE The mitral valve is normal in structure and function. There is no evidence of mitral valve prolapse. There is no mitral valve stenosis. Doppler and Color-flow revealed mild mitral regurgitation. TRICUSPID VALVE The tricuspid valve leaflets are thickened , but open well. Doppler and Color Flow revealed trace to mild tricuspid regurgitation. There is no tricuspid valve prolapse or vegetation. There is no tricusp id valve stenosis. GREAT VESSELS The aortic root is normal in size. The ascending aorta is normal in size. The pulmonary artery is nor mal. The IVC is normal in size and collapses >50% with inspiration. PERICARDIAL EFFUSION There is no evidence of significant pericardial effusion. Critical Notification Critical Value: No <Conclusion> The left ventricular systolic function is normal. The ejection fraction is 60-65%. There is normal LV segmental wall motion. Pacer leads noted RA/RV. Mild mitral regurgitation. Trace to mild tricuspid regurgitation. There is no evidence of significant pericardial effusion. No intracardiac vegetation or thrombus. Signed by : Tomas Sidhu, Electronically Approved : 12/05/2020 12:43:51
[2020-12-05 15:00] VITALS: BP 98/43
[2020-12-05 15:19] LABS: KAPPA FREE 91.6 mg/L (3.3-19.4); KAPPA LAMBDA RATIO 1.16 (0.26-1.65)
--- NOTE | 2020-12-05 15:42 | NUR ---
SW following. Discussed with RN, pt from home alone, room air, NPO, COVID-19 negative. Pt had a SOO today. Therapy recommending SNF. SW met with pt, pt agreeable and would like referral to [facility]. SW phoned and faxed referral, awaiting acceptance decision and insurance auth. RN notified. SW will continue to follow.
[2020-12-05 16:20] LABS: ALBUM 1.7 g/dL (2.9-4.4); ALPHA 1 0.5 g/dL (0.0-0.4); ALPHA 2 0.7 g/dL (0.4-1.0); BETA 0.6 g/dL (0.7-1.3); GAMMA 1.2 g/dL (0.4-1.8); PROTEIN TOTAL 4.8 g/dL (6.0-8.5); SPEP AG RATIO 0.5 (0.7-1.7)
[2020-12-05 17:28] LABS: HEMOGLOBIN 9.6 g/dL (13.0-17.5)
[2020-12-05 19:00] VITALS: BP 100/44
[2020-12-05] MEDS: ATORVASTATIN CALCIUM 20 MG TABLET PO SCH (20:31)
[2020-12-05] MEDS: ACETAMINOPHEN 325 MG TABLET. PO SCH (20:31)
[2020-12-05] MEDS: HYDROcodone/APAP 10/325 1 TAB TABLET PO PRN (20:35)
--- NOTE | 2020-12-05 21:08 | PN ---
DATE: 12/05/2020 DAILY PROGRESS NOTE LOCATION: He is in room #514. SUBJECTIVE: This is an 85-year-old male remains hospitalized with septic arthritis of the right knee with bacteremia with MSSA. He complains of right knee pain and bleeding after surgery this morning. He still was feeling crummy with some generalized diffuse achiness. OBJECTIVE: VITAL SIGNS: Stable. He is afebrile. Blood pressures are on the low side and the carvedilol will be held. CHEST: Clear. HEART: Regular. ABDOMEN: Benign. EXTREMITIES: Right knee is bandaged, but the dressing is dry. LABORATORY DATA: Creatinine is increased to 1.8 this morning. INR was down to 4.5. ASSESSMENT: Septic right knee with bacteremia with methicillin-susceptible Staphylococcus aureus. ADDITIONAL DIAGNOSES: 1. Coagulopathy, improving. 2. Anemia following surgery, not unexpected. 3. Acute kidney injury. We will follow creatinine. PLAN: Continue present antibiotics. Hopefully, surgery will make blood cultures show negative. I suspect he is going to need long-term IV antibiotics if not more. We will continue to follow the protime and renal function. JENNIE DR: Danielle TID: [id number]
[2020-12-05 23:00] VITALS: BP 106/48
[2020-12-05] MEDS: ZOLPIDEM 5 MG TABLET. PO PRN (23:21)
[2020-12-06] VITALS (7 sets, daily range): BP systolic 86–100; BP diastolic 35–48
[2020-12-06] MEDS: NAFCILLIN 2 GM in IV DEXTROSE 5% 100ML 100 ML IV SCH ×6 (00:05→21:02)
[2020-12-06] MEDS: HYDROcodone/APAP 10/325 1 TAB TABLET PO PRN ×4 (03:19→21:02)
[2020-12-06] MEDS: POLYETHYLENE GLYCOL 3350 17 GM PACKET. PO PRN ×2 (03:20→09:16)
[2020-12-06 08:56] LABS: BASO % 0 % (0-3); EOS # 0.3 x10^3/uL (0.0-0.7); EOS % 3 % (0-3); HEMATOCRIT 26.9 % (39.0-53.0); HEMOGLOBIN 8.9 g/dL (13.0-17.5); LYMPH # 1.2 x10^3/uL (1.0-4.8); LYMPH % 10 % (24-48); MEAN CORPUSCULAR HEMOGLOBIN 30 pg (25-35); MEAN CORPUSCULAR HGB CONC 33 g/dL (31-37); MEAN CORPUSCULAR VOLUME 91 fL (79-100); MONO # 0.9 x10^3/uL (0.0-1.1); MONO % 7 % (0-9); NEUT # 9.5 x10^3/uL (1.8-7.7); NEUT % 80 % (31-73); PLATELET COUNT 358 x10^3/uL (140-400); RED BLOOD COUNT 2.97 x10^6/uL (4.30-5.70); RED CELL DISTRIBUTION WIDTH 14.7 % (11.5-14.5); WHITE BLOOD COUNT 11.9 x10^3/uL (4.0-11.0)
[2020-12-06] MEDS: FUROSEMIDE 40 MG TABLET. PO SCH (09:00)
--- NOTE | 2020-12-06 09:07 | PDOC ---
Infectious Disease Note Subjective Subjective pt is feeling ok, no bleeding ROS ROS no n/v/d/sob Vital Sign Vital Signs Vital Signs Date Time Temp Pulse Resp B/P (MAP) Pulse Ox O2 Delivery O2 Flow Rate FiO2 12/06/20 07:00 97.4 56 20 96/46 (63) 98 Nasal Cannula 2.0 97.4 Physical Exam PHYSICAL EXAM GENERAL: Alert, oriented x 3 male, in no acute distress. HEENT: Normocephalic, atraumatic. Anicteric. NECK: Supple, no JVD. LUNGS: Clear except for decreased breath sounds at the bases. HEART: S1, S2, systolic murmur present. Pacemaker site looks okay. PPM incision site dry scab no redness no fluctuance ABDOMEN: Soft, nontender, nondistended. EXTREMITIES: Right knee prepatellar swelling present. Erythema. Warmth. post surgery dressing not opened No cyanosis or clubbing DERMATOLOGIC: Warm, dry, no generalized rash. NEUROLOGIC: Alert and oriented x 3, grossly nonfocal. PSYCHIATRIC: Calm and cooperative. Labs Lab Laboratory Tests Test 12/05/20 09:10 12/05/20 17:05 12/06/20 07:00 White Blood Count 13.3 x10^3/uL (4.0-11.0) 11.9 x10^3/uL (4.0-11.0) Red Blood Count 3.18 x10^6/uL (4.30-5.70) 2.97 x10^6/uL (4.30-5.70) Hemoglobin 9.5 g/dL (13.0-17.5) 9.6 g/dL (13.0-17.5) 8.9 g/dL (13.0-17.5) Hematocrit 28.6 % (39.0-53.0) 29.0 % (39.0-53.0) 26.9 % (39.0-53.0) Mean Corpuscular Volume 90 fL (79-100) 91 fL (79-100) Mean Corpuscular Hemoglobin 30 pg (25-35) 30 pg (25-35) Mean Corpuscular Hemoglobin Concent 33 g/dL (31-37) 33 g/dL (31-37) 33 g/dL (31-37) Red Cell Distribution Width 14.7 % (11.5-14.5) 14.7 % (11.5-14.5) Platelet Count 358 x10^3/uL (140-400) 358 x10^3/uL (140-400) Neutrophils (%) (Auto) 82 % (31-73) 80 % (31-73) Lymphocytes (%) (Auto) 10 % (24-48) 10 % (24-48) Monocytes (%) (Auto) 7 % (0-9) 7 % (0-9) Eosinophils (%) (Auto) 1 % (0-3) 3 % (0-3) Basophils (%) (Auto) 1 % (0-3) 0 % (0-3) Neutrophils # (Auto) 10.8 x10^3/uL (1.8-7.7) 9.5 x10^3/uL (1.8-7.7) Lymphocytes # (Auto) 1.3 x10^3/uL (1.0-4.8) 1.2 x10^3/uL (1.0-4.8) Monocytes # (Auto) 0.9 x10^3/uL (0.0-1.1) 0.9 x10^3/uL (0.0-1.1) Eosinophils # (Auto) 0.2 x10^3/uL (0.0-0.7) 0.3 x10^3/uL (0.0-0.7) Basophils # (Auto) 0.1 x10^3/uL (0.0-0.2) 0.0 x10^3/uL (0.0-0.2) Sodium Level 132 mmol/L (136-145) Potassium Level 4.0 mmol/L (3.5-5.1) Chloride Level 94 mmol/L (98-107) Carbon Dioxide Level 33 mmol/L (21-32) Anion Gap 5 (6-14) Blood Urea Nitrogen 45 mg/dL (8-26) Creatinine 1.8 mg/dL (0.7-1.3) Estimated GFR (Cockcroft-Gault) 36.2 Glucose Level 109 mg/dL (70-99) Calcium Level 7.2 mg/dL (8.5-10.1) Prothrombin Time 23.0 SEC (11.7-14.0) Prothromb Time International Ratio 2.1 (0.8-1.1) Micro BC from 12/05 pending SOO neg Objective Assessment Persistent methicillin sensitive staph aureus bacteremia 4 of 4 bottles present on admission 11/28/2020, November 30 and December 02 History of PPM.H/O recent battery exchange. Sepsis from Gram-positive bacteremia. Improving Leukocytosis and bandemia. Improving Rt Knee pain and swelling status post synovial aspirate WBC 30,000 RBC 66,000 -Cultures staph aureus Generalized weakness. Improving History of fall. Hypokalemia.Hyponatremia. History of atrial fibrillation. Hypertension. Coagulopathy last INR of 15 Plan Plan of Care Continue nafcillin Follow-up repeat blood cultures from 12/05 Follow-up synovial fluid cultures positive for staph aureus Monitor labs and cultures. Continue supportive care. Maintain aspiration precaution Discussed with nursing staff pt/ot urine for eosinophils JYOTI BALLESTEROS MD Dec 06, 2020 09:07
[2020-12-06] MEDS: ASPIRIN CHEWABLE 81 MG TABLET. PO SCH (09:10)
[2020-12-06] MEDS: LACTOBACILLUS RHAMNOSUS GG 1 CAPSULE. PO SCH ×2 (09:10→21:02)
[2020-12-06] MEDS: POTASSIUM CHLORIDE 20 MEQ TABLET.ER. PO SCH (09:11)
[2020-12-06] MEDS: DOCUSATE SODIUM 100 MG CAPSULE. PO SCH ×2 (09:11→21:00)
[2020-12-06 09:15] LABS: CALCIUM 6.8 mg/dL (8.5-10.1); CREATININE 2.3 mg/dL (0.7-1.3); GFR 27.3; POTASSIUM 4.4 mmol/L (3.5-5.1)
[2020-12-06] MEDS ORDERED: IV NORMAL SALINE 1000ML BAG 1,000 ML IV ONE ×2 (09:15→13:15)
--- NOTE | 2020-12-06 10:10 | NUR ---
SW following. Discussed with RN, pt accepted at [facility] pending insurance auth. Updated therapy notes to be faxed. BLANCA will continue to follow.
[2020-12-06] MEDS: DAPTOmycin (GENERIC) IVPB 500 MG in IV NORMAL SALINE 50ML 50 ML IV SCH (11:05)
--- NOTE | 2020-12-06 13:18 | PDOC ---
MINERVA QUINONEZ SHOE REPAIR SUPERVISOR 12/06/20 1318: CARDIO Progress Notes Date and Time Date of Service 12/06/2020 Time of Evaluation 1300 Subjective Subjective: No Chest Pain, No shortness of breath, No Palpitations Vitals Vitals Vital Signs Date Time Temp Pulse Resp B/P (MAP) Pulse Ox O2 Delivery O2 Flow Rate FiO2 12/06/20 10:43 97.9 60 20 99/47 (64) 96 Nasal Cannula 2.0 97.9 Weight Weight [ ] Input and Output Intake and Output Intake and Output 12/06/20 07:00 Intake Total 2453 ml Output Total 600 ml Balance 1853 ml Intake Oral 330 ml IV Total 400 ml Blood Product IV Normal Saline Flush 1723 ml Output Urine Total 600 ml Laboratory Labs Laboratory Tests Test 12/05/20 17:05 12/06/20 07:00 Hemoglobin 9.6 g/dL (13.0-17.5) 8.9 g/dL (13.0-17.5) Hematocrit 29.0 % (39.0-53.0) 26.9 % (39.0-53.0) Mean Corpuscular Hemoglobin Concent 33 g/dL (31-37) 33 g/dL (31-37) White Blood Count 11.9 x10^3/uL (4.0-11.0) Red Blood Count 2.97 x10^6/uL (4.30-5.70) Mean Corpuscular Volume 91 fL (79-100) Mean Corpuscular Hemoglobin 30 pg (25-35) Red Cell Distribution Width 14.7 % (11.5-14.5) Platelet Count 358 x10^3/uL (140-400) Neutrophils (%) (Auto) 80 % (31-73) Lymphocytes (%) (Auto) 10 % (24-48) Monocytes (%) (Auto) 7 % (0-9) Eosinophils (%) (Auto) 3 % (0-3) Basophils (%) (Auto) 0 % (0-3) Neutrophils # (Auto) 9.5 x10^3/uL (1.8-7.7) Lymphocytes # (Auto) 1.2 x10^3/uL (1.0-4.8) Monocytes # (Auto) 0.9 x10^3/uL (0.0-1.1) Eosinophils # (Auto) 0.3 x10^3/uL (0.0-0.7) Basophils # (Auto) 0.0 x10^3/uL (0.0-0.2) Prothrombin Time 23.0 SEC (11.7-14.0) Prothromb Time International Ratio 2.1 (0.8-1.1) Sodium Level 130 mmol/L (136-145) Potassium Level 4.4 mmol/L (3.5-5.1) Chloride Level 92 mmol/L (98-107) Carbon Dioxide Level 31 mmol/L (21-32) Anion Gap 7 (6-14) Blood Urea Nitrogen 53 mg/dL (8-26) Creatinine 2.3 mg/dL (0.7-1.3) Estimated GFR (Cockcroft-Gault) 27.3 Glucose Level 122 mg/dL (70-99) Calcium Level 6.8 mg/dL (8.5-10.1) Microbiology Micro Microbiology 12/05/20 Blood Culture - Preliminary, Resulted NO GROWTH AFTER 1 DAY 12/04/20 Gram Stain - Final, Resulted 12/04/20 Aerobic and Anaerobic Culture - Preliminary, Resulted Physical Exam HEENT: Neck Supple W Full Motion Chest: Symmetric LUNGS: Other (diminished bases) Heart: other (V paced with underlying AFIB) Abdomen: Soft N/T Extremities: Other (right knee effusion) Neurology: alert, oriented, follow commands Assessment Assessment 1. Mechanical fall with right knee effusion: mainly due to weakness. S/P I & D POD#1 2. Sepsis with bacteremia (MRSA): no intracardiac vegetation per SOO. EF and WM nml 3. S/P PPM with generator change: 11/01/2020.[employer], functioning normally 4. Hx of SSS 5. Chronic AFIB: rate controlled with intermittent pacing 6. HTN: at low end 7. HLP: on statin 8. CAD: clinically stable 9. Coagulopathy with coumadin: antibiotic is contributing. INR now at 2.1 with recent Vit K 10. Acute on chronic diastolic CHF: appears compensated 11. Postoperative anemia 12. GUERO Recommendations 1. INR 2.1, Will place on low dose eliquis when clear with hematology and ortho 2. Continue ASA and secondary prevention measures including coreg for rate cont rol. 3. Lasix Held PCXR. Start IVF. Avoid nephrotoxic agents. 4. Continue Abx per ID Justicifation of Admission Dx: Justifications for Admission: Justification of Admission Dx: N/A IRMA GONZALES MD 12/07/20 0621: CARDIO Progress Notes Assessment Assessment Patient seen and examined 12/06/20. Agree with PBX WIRE CHIEF's assessment and plan Perm AF rate controlled - agree with low dose eliquis upon DC Ac on chr diast HF better compensated CAD, SSS s/p PPM stable SOO did not show any intracardiac thrombus or vegetation Continue treatment of sepsis/bacteremia per ID team MINERVA QUINONEZ APRN Dec 06, 2020 13:18 IRMA GONZALES MD Dec 07, 2020 06:21
--- NOTE | 2020-12-06 13:24 | PN ---
DATE: 12/06/2020 LOCATION: He is in room 514. SUBJECTIVE: This 85-year-old male remains hospitalized with MSSA bacteremia due to right knee infection. He states he feels somewhat better this morning for the first time. He was able to sleep somewhat last night. OBJECTIVE: VITAL SIGNS: Stable. He is afebrile. Blood pressures remain on the low side and carvedilol is on hold. CHEST: Clear. HEART: Regular. ABDOMEN: Benign. EXTREMITIES: Right knee remains dressed with a dry bandage. LABORATORY DATA: Creatinine has increased this morning up to 2.3 and we will ask Renal for opinion. INR is down to 2.1. Hemoglobin has dropped further at 8.9. The last set of blood cultures from yesterday are negative so far. IMPRESSION AND PLAN: 1. Methicillin-susceptible Staphylococcus aureus sepsis from septic right knee. 2. Coagulopathy, improving. 3. Anemia following surgery. We will continue to follow. 4. Acute kidney injury. We will ask Renal for opinion. Otherwise, continue antibiotics and hopefully blood cultures stay negative. RON DR: Danielle TID: [id number]
[2020-12-06 13:44] LABS: HEMATOCRIT 28.6 % (39.0-53.0); HEMOGLOBIN 9.6 g/dL (13.0-17.5); RED BLOOD COUNT 3.17 x10^6/uL (4.30-5.70); RED CELL DISTRIBUTION WIDTH 14.8 % (11.5-14.5); WHITE BLOOD COUNT 14.5 x10^3/uL (4.0-11.0)
--- NOTE | 2020-12-06 14:13 | PDOC ---
PROGRESS NOTES Date of Service DATE: 12/06/20 TIME: 14:09 Subjective Subjective Problems overnight: Uncomfortable today but I helped him get propped up better. Right knee still is sore and hurts to move and he overall feels somewhat achy and asking for a pain pill Objective Vital Signs Vital Signs Date Time Temp Pulse Resp B/P (MAP) Pulse Ox O2 Delivery O2 Flow Rate FiO2 12/06/20 13:41 Room Air 12/06/20 10:43 97.9 60 20 99/47 (64) 96 97.9 Physical Exam Right knee still has a pressure dressing and has some slight serosanguineous drainage from the prepatellar bursa area primarily Labs Laboratory Tests Test 12/04/20 19:05 12/05/20 09:10 12/05/20 17:05 12/06/20 07:00 Hemoglobin 10.2 g/dL (13.0-17.5) 9.5 g/dL (13.0-17.5) 9.6 g/dL (13.0-17.5) 8.9 g/dL (13.0-17.5) Hematocrit 31.0 % (39.0-53.0) 28.6 % (39.0-53.0) 29.0 % (39.0-53.0) 26.9 % (39.0-53.0) Mean Corpuscular Hemoglobin Concent 33 g/dL (31-37) 33 g/dL (31-37) 33 g/dL (31-37) 33 g/dL (31-37) White Blood Count 13.3 x10^3/uL (4.0-11.0) 11.9 x10^3/uL (4.0-11.0) Red Blood Count 3.18 x10^6/uL (4.30-5.70) 2.97 x10^6/uL (4.30-5.70) Mean Corpuscular Volume 90 fL (79-100) 91 fL (79-100) Mean Corpuscular Hemoglobin 30 pg (25-35) 30 pg (25-35) Red Cell Distribution Width 14.7 % (11.5-14.5) 14.7 % (11.5-14.5) Platelet Count 358 x10^3/uL (140-400) 358 x10^3/uL (140-400) Neutrophils (%) (Auto) 82 % (31-73) 80 % (31-73) Lymphocytes (%) (Auto) 10 % (24-48) 10 % (24-48) Monocytes (%) (Auto) 7 % (0-9) 7 % (0-9) Eosinophils (%) (Auto) 1 % (0-3) 3 % (0-3) Basophils (%) (Auto) 1 % (0-3) 0 % (0-3) Neutrophils # (Auto) 10.8 x10^3/uL (1.8-7.7) 9.5 x10^3/uL (1.8-7.7) Lymphocytes # (Auto) 1.3 x10^3/uL (1.0-4.8) 1.2 x10^3/uL (1.0-4.8) Monocytes # (Auto) 0.9 x10^3/uL (0.0-1.1) 0.9 x10^3/uL (0.0-1.1) Eosinophils # (Auto) 0.2 x10^3/uL (0.0-0.7) 0.3 x10^3/uL (0.0-0.7) Basophils # (Auto) 0.1 x10^3/uL (0.0-0.2) 0.0 x10^3/uL (0.0-0.2) Sodium Level 132 mmol/L (136-145) 130 mmol/L (136-145) Potassium Level 4.0 mmol/L (3.5-5.1) 4.4 mmol/L (3.5-5.1) Chloride Level 94 mmol/L (98-107) 92 mmol/L (98-107) Carbon Dioxide Level 33 mmol/L (21-32) 31 mmol/L (21-32) Anion Gap 5 (6-14) 7 (6-14) Blood Urea Nitrogen 45 mg/dL (8-26) 53 mg/dL (8-26) Creatinine 1.8 mg/dL (0.7-1.3) 2.3 mg/dL (0.7-1.3) Estimated GFR (Cockcroft-Gault) 36.2 27.3 Glucose Level 109 mg/dL (70-99) 122 mg/dL (70-99) Calcium Level 7.2 mg/dL (8.5-10.1) 6.8 mg/dL (8.5-10.1) Prothrombin Time 23.0 SEC (11.7-14.0) Prothromb Time International Ratio 2.1 (0.8-1.1) Test 12/06/20 13:35 White Blood Count 14.5 x10^3/uL (4.0-11.0) Red Blood Count 3.17 x10^6/uL (4.30-5.70) Hemoglobin 9.6 g/dL (13.0-17.5) Hematocrit 28.6 % (39.0-53.0) Mean Corpuscular Volume 90 fL (79-100) Mean Corpuscular Hemoglobin 30 pg (25-35) Mean Corpuscular Hemoglobin Concent 33 g/dL (31-37) Red Cell Distribution Width 14.8 % (11.5-14.5) Platelet Count 394 x10^3/uL (140-400) Laboratory Tests Test 12/05/20 17:05 12/06/20 07:00 12/06/20 13:35 Hemoglobin 9.6 g/dL (13.0-17.5) 8.9 g/dL (13.0-17.5) 9.6 g/dL (13.0-17.5) Hematocrit 29.0 % (39.0-53.0) 26.9 % (39.0-53.0) 28.6 % (39.0-53.0) Mean Corpuscular Hemoglobin Concent 33 g/dL (31-37) 33 g/dL (31-37) 33 g/dL (31-37) White Blood Count 11.9 x10^3/uL (4.0-11.0) 14.5 x10^3/uL (4.0-11.0) Red Blood Count 2.97 x10^6/uL (4.30-5.70) 3.17 x10^6/uL (4.30-5.70) Mean Corpuscular Volume 91 fL (79-100) 90 fL (79-100) Mean Corpuscular Hemoglobin 30 pg (25-35) 30 pg (25-35) Red Cell Distribution Width 14.7 % (11.5-14.5) 14.8 % (11.5-14.5) Platelet Count 358 x10^3/uL (140-400) 394 x10^3/uL (140-400) Neutrophils (%) (Auto) 80 % (31-73) Lymphocytes (%) (Auto) 10 % (24-48) Monocytes (%) (Auto) 7 % (0-9) Eosinophils (%) (Auto) 3 % (0-3) Basophils (%) (Auto) 0 % (0-3) Neutrophils # (Auto) 9.5 x10^3/uL (1.8-7.7) Lymphocytes # (Auto) 1.2 x10^3/uL (1.0-4.8) Monocytes # (Auto) 0.9 x10^3/uL (0.0-1.1) Eosinophils # (Auto) 0.3 x10^3/uL (0.0-0.7) Basophils # (Auto) 0.0 x10^3/uL (0.0-0.2) Prothrombin Time 23.0 SEC (11.7-14.0) Prothromb Time International Ratio 2.1 (0.8-1.1) Sodium Level 130 mmol/L (136-145) Potassium Level 4.4 mmol/L (3.5-5.1) Chloride Level 92 mmol/L (98-107) Carbon Dioxide Level 31 mmol/L (21-32) Anion Gap 7 (6-14) Blood Urea Nitrogen 53 mg/dL (8-26) Creatinine 2.3 mg/dL (0.7-1.3) Estimated GFR (Cockcroft-Gault) 27.3 Glucose Level 122 mg/dL (70-99) Calcium Level 6.8 mg/dL (8.5-10.1) Assessment Assessment POD#irrigation debridement of right knee and prepatellar bursa both septic with history of staph bacteremia Plan Plan of Care Both knee cultures knee joint and prepatellar bursa showed staph aureus and previous blood cultures positive for MSSA currently being treated. Also being evaluated with transesophageal echo Overall the knee remains swollen and sore but cultures really show we did the right thing by going to the operating room and irrigation and debridement of both the joint and prepatellar bursa area Continue to follow cultures and antibiotics per infectious disease. Likely can continue the pressure dressing now as INR continues to normalize and he is further out from surgery and drainage appears more serosanguineous in nature as opposed to bloody previously Mobilize as tolerated from an orthopedic standpoint Justicifation of Admission Dx: Justifications for Admission: Justification of Admission Dx: N/A ARMINDA BUTLER MD Dec 06, 2020 14:13
--- NOTE | 2020-12-06 15:57 | RAD ---
EXAM: CHEST ONE VIEW. HISTORY: Congestive heart failure. COMPARISON: 11/28/2020. FINDINGS: A frontal view of the chest is obtained. A left-sided pacemaker has its leads in the right atrium and right ventricle. A small left pleural effusion is stable. There are mild interstitial opacities in both bases. There i s no pneumothorax or pleural effusion. The heart is moderately enlarged. There are atherosclerotic ca lcifications of the aorta. IMPRESSION: 1. Stable small left pleural effusion. Bibasilar atelectasis or mild infiltrates. 2. Moderate cardiomegaly. Electronically signed by: Balbina Nguyễn MD (12/06/2020 3:55 PM) [id number]
[2020-12-06] MEDS: ATORVASTATIN CALCIUM 20 MG TABLET PO SCH (21:03)
[2020-12-06] MEDS: ACETAMINOPHEN 325 MG TABLET. PO SCH (21:03)
[2020-12-06] MEDS: ZOLPIDEM 5 MG TABLET. PO PRN (21:08)
[2020-12-07] VITALS (7 sets, daily range): BP systolic 88–115; BP diastolic 37–53
[2020-12-07] MEDS: NAFCILLIN 2 GM in IV DEXTROSE 5% 100ML 100 ML IV SCH ×6 (00:26→21:31)
[2020-12-07 07:33] LABS: BASO # 0.1 x10^3/uL (0.0-0.2); BASO % 0 % (0-3); EOS # 0.2 x10^3/uL (0.0-0.7); EOS % 2 % (0-3); HEMATOCRIT 27.3 % (39.0-53.0); LYMPH % 8 % (24-48); MEAN CORPUSCULAR HEMOGLOBIN 30 pg (25-35); MEAN CORPUSCULAR HGB CONC 33 g/dL (31-37); MEAN CORPUSCULAR VOLUME 89 fL (79-100); MONO # 0.8 x10^3/uL (0.0-1.1); MONO % 6 % (0-9); NEUT % 84 % (31-73); PLATELET COUNT 384 x10^3/uL (140-400); RED BLOOD COUNT 3.06 x10^6/uL (4.30-5.70); RED CELL DISTRIBUTION WIDTH 14.8 % (11.5-14.5); WHITE BLOOD COUNT 13.1 x10^3/uL (4.0-11.0)
[2020-12-07 08:17] LABS: CALCIUM 6.7 mg/dL (8.5-10.1); CREATININE 2.5 mg/dL (0.7-1.3); GFR 24.8; POTASSIUM 4.4 mmol/L (3.5-5.1)
[2020-12-07] MEDS: FUROSEMIDE 40 MG TABLET. PO SCH (08:28)
[2020-12-07] MEDS: LACTOBACILLUS RHAMNOSUS GG 1 CAPSULE. PO SCH ×2 (08:28→21:33)
[2020-12-07] MEDS: POTASSIUM CHLORIDE 20 MEQ TABLET.ER. PO SCH (08:28)
[2020-12-07] MEDS: ASPIRIN CHEWABLE 81 MG TABLET. PO SCH (08:28)
[2020-12-07] MEDS: DOCUSATE SODIUM 100 MG CAPSULE. PO SCH ×2 (08:29→21:33)
[2020-12-07] MEDS: HYDROcodone/APAP 10/325 1 TAB TABLET PO PRN ×2 (08:45→18:31)
--- NOTE | 2020-12-07 09:36 | PDOC ---
Infectious Disease Note Subjective Subjective pt is feeling ok, no bleeding ROS ROS No nausea vomiting diarrhea Vital Sign Vital Signs Vital Signs Date Time Temp Pulse Resp B/P (MAP) Pulse Ox O2 Delivery O2 Flow Rate FiO2 12/07/20 08:45 20 Room Air 12/07/20 07:00 98.2 61 111/52 (71) 94 98.2 12/06/20 10:43 Physical Exam PHYSICAL EXAM GENERAL: Alert, oriented x 3 male, in no acute distress. HEENT: Normocephalic, atraumatic. Anicteric. NECK: Supple, no JVD. LUNGS: Clear except for decreased breath sounds at the bases. HEART: S1, S2, systolic murmur present. Pacemaker site looks okay. PPM incision site dry scab no redness no fluctuance ABDOMEN: Soft, nontender, nondistended. EXTREMITIES: Right knee prepatellar swelling present. Erythema. Warmth. post surgery dressing not opened No cyanosis or clubbing DERMATOLOGIC: Warm, dry, no generalized rash. NEUROLOGIC: Alert and oriented x 3, grossly nonfocal. PSYCHIATRIC: Calm and cooperative. Labs Lab Laboratory Tests Test 12/06/20 13:35 12/07/20 05:50 White Blood Count 14.5 x10^3/uL (4.0-11.0) 13.1 x10^3/uL (4.0-11.0) Red Blood Count 3.17 x10^6/uL (4.30-5.70) 3.06 x10^6/uL (4.30-5.70) Hemoglobin 9.6 g/dL (13.0-17.5) 9.0 g/dL (13.0-17.5) Hematocrit 28.6 % (39.0-53.0) 27.3 % (39.0-53.0) Mean Corpuscular Volume 90 fL (79-100) 89 fL (79-100) Mean Corpuscular Hemoglobin 30 pg (25-35) 30 pg (25-35) Mean Corpuscular Hemoglobin Concent 33 g/dL (31-37) 33 g/dL (31-37) Red Cell Distribution Width 14.8 % (11.5-14.5) 14.8 % (11.5-14.5) Platelet Count 394 x10^3/uL (140-400) 384 x10^3/uL (140-400) Neutrophils (%) (Auto) 84 % (31-73) Lymphocytes (%) (Auto) 8 % (24-48) Monocytes (%) (Auto) 6 % (0-9) Eosinophils (%) (Auto) 2 % (0-3) Basophils (%) (Auto) 0 % (0-3) Neutrophils # (Auto) 11.0 x10^3/uL (1.8-7.7) Lymphocytes # (Auto) 1.0 x10^3/uL (1.0-4.8) Monocytes # (Auto) 0.8 x10^3/uL (0.0-1.1) Eosinophils # (Auto) 0.2 x10^3/uL (0.0-0.7) Basophils # (Auto) 0.1 x10^3/uL (0.0-0.2) Sodium Level 130 mmol/L (136-145) Potassium Level 4.4 mmol/L (3.5-5.1) Chloride Level 93 mmol/L (98-107) Carbon Dioxide Level 32 mmol/L (21-32) Anion Gap 5 (6-14) Blood Urea Nitrogen 60 mg/dL (8-26) Creatinine 2.5 mg/dL (0.7-1.3) Estimated GFR (Cockcroft-Gault) 24.8 Glucose Level 95 mg/dL (70-99) Calcium Level 6.7 mg/dL (8.5-10.1) Micro BC from 12/05 negative SOO neg Objective Assessment Persistent methicillin sensitive staph aureus bacteremia 4 of 4 bottles present on admission 11/28/2020, November 30 and December 02 History of PPM.H/O recent battery exchange. Sepsis from Gram-positive bacteremia. Improving Leukocytosis and bandemia. Improving Rt Knee pain and swelling status post synovial aspirate WBC 30,000 RBC 66,000 -Cultures staph aureus Generalized weakness. Improving History of fall. Hypokalemia.Hyponatremia. History of atrial fibrillation. Hypertension. Coagulopathy last INR of 15 GUERO Plan Plan of Care Continue nafcillin Follow-up repeat blood cultures from 12/05 so far negative Follow-up synovial fluid cultures positive for staph aureus Monitor labs and cultures. Continue supportive care. Maintain aspiration precaution Discussed with nursing staff pt/ot urine for eosinophils Declined can be placed now and patient is going to need long-term IV antibiotics JYOTI BALLESTEROS MD Dec 07, 2020 09:36
--- NOTE | 2020-12-07 09:40 | PDOC ---
MINERVA QUINONEZ GROUP HOME WORKER 12/07/20 0940: CARDIO Progress Notes Date and Time Date of Service 12/07/2020 Time of Evaluation 1010 Subjective Subjective: No Chest Pain, No shortness of breath, No Palpitations Vitals Vitals Vital Signs Date Time Temp Pulse Resp B/P (MAP) Pulse Ox O2 Delivery O2 Flow Rate FiO2 12/07/20 08:45 20 Room Air 12/07/20 07:00 98.2 61 111/52 (71) 94 98.2 12/06/20 10:43 Weight Weight [ ] Input and Output Intake and Output Intake and Output 12/07/20 07:00 Intake Total 480 ml Output Total 800 ml Balance -320 ml Intake Oral 480 ml Output Urine Total 800 ml # Voids 1 # Bowel Movements 1 Laboratory Labs Laboratory Tests Test 12/06/20 13:35 12/07/20 05:50 White Blood Count 14.5 x10^3/uL (4.0-11.0) 13.1 x10^3/uL (4.0-11.0) Red Blood Count 3.17 x10^6/uL (4.30-5.70) 3.06 x10^6/uL (4.30-5.70) Hemoglobin 9.6 g/dL (13.0-17.5) 9.0 g/dL (13.0-17.5) Hematocrit 28.6 % (39.0-53.0) 27.3 % (39.0-53.0) Mean Corpuscular Volume 90 fL (79-100) 89 fL (79-100) Mean Corpuscular Hemoglobin 30 pg (25-35) 30 pg (25-35) Mean Corpuscular Hemoglobin Concent 33 g/dL (31-37) 33 g/dL (31-37) Red Cell Distribution Width 14.8 % (11.5-14.5) 14.8 % (11.5-14.5) Platelet Count 394 x10^3/uL (140-400) 384 x10^3/uL (140-400) Neutrophils (%) (Auto) 84 % (31-73) Lymphocytes (%) (Auto) 8 % (24-48) Monocytes (%) (Auto) 6 % (0-9) Eosinophils (%) (Auto) 2 % (0-3) Basophils (%) (Auto) 0 % (0-3) Neutrophils # (Auto) 11.0 x10^3/uL (1.8-7.7) Lymphocytes # (Auto) 1.0 x10^3/uL (1.0-4.8) Monocytes # (Auto) 0.8 x10^3/uL (0.0-1.1) Eosinophils # (Auto) 0.2 x10^3/uL (0.0-0.7) Basophils # (Auto) 0.1 x10^3/uL (0.0-0.2) Sodium Level 130 mmol/L (136-145) Potassium Level 4.4 mmol/L (3.5-5.1) Chloride Level 93 mmol/L (98-107) Carbon Dioxide Level 32 mmol/L (21-32) Anion Gap 5 (6-14) Blood Urea Nitrogen 60 mg/dL (8-26) Creatinine 2.5 mg/dL (0.7-1.3) Estimated GFR (Cockcroft-Gault) 24.8 Glucose Level 95 mg/dL (70-99) Calcium Level 6.7 mg/dL (8.5-10.1) Microbiology Micro Microbiology 12/05/20 Blood Culture - Preliminary, Resulted NO GROWTH AFTER 1 DAY 12/04/20 Gram Stain - Final, Resulted 12/04/20 Aerobic and Anaerobic Culture - Preliminary, Resulted Physical Exam HEENT: Neck Supple W Full Motion Chest: Symmetric LUNGS: Other (diminished bases) Heart: other (V paced with underlying AFIB) Abdomen: Soft N/T Extremities: Other (right knee effusion, 3+ RLE edema and 2+ LLE edema pitting) Neurology: alert, oriented, follow commands Assessment Assessment 1. Mechanical fall with right knee effusion: mainly due to weakness. S/P I & D POD#1 2. Sepsis with bacteremia (MRSA): no intracardiac vegetation per SOO. EF and WM nml 3. S/P PPM with generator change: 11/01/2020.[employer], functioning normally 4. Hx of SSS 5. Chronic AFIB: rate controlled with intermittent pacing 6. HTN: presently hypotensive 7. HLP: on statin 8. CAD: clinically stable 9. Coagulopathy with coumadin: antibiotic is contributing. INR now at 2.1 with recent Vit K 10. Acute on chronic diastolic CHF: appears compensated 11. Postoperative anemia 12. GUERO: ATN? Recommendations 1. INR 2.1, Will place on low dose eliquis when clear with hematology and ortho 2. Continue ASA and secondary prevention measures. Holding BB currently due to low BP. 3. Avoid nephrotoxic agents. Consult nephrology. Received PO lasix this morning. Unable to obtain standing wt as he could not stand up. His intake has been poor. IVF x1 4. Continue Abx per ID 5. Obtain UA Justicifation of Admission Dx: Justifications for Admission: Justification of Admission Dx: N/A IRMA GONZALES MD 12/07/202033: CARDIO Progress Notes Assessment Assessment Patient seen and examined. Agree with HOSPITAL [employer] SERVICE WORKER's assessment and plan Perm AF rate controlled - agree with low dose eliquis when ok from hem standpoint Ac on chr diast HF better compensated CAD, SSS s/p PPM stable SOO did not show any intracardiac thrombus or vegetation Continue treatment of sepsis/bacteremia per ID team MINERVA QUINONEZ APRN Dec 07, 2020 09:40 IRMA GONZALES MD Dec 07, 2020 20:34
--- NOTE | 2020-12-07 10:20 | PN ---
DATE: 12/07/2020 DAILY PROGRESS NOTE LOCATION: He is in room 514. SUBJECTIVE: This 85-year-old male remains hospitalized with MSSA bacteremia due to right knee infection. He is sleeping comfortably this morning. Does not awaken during exam. OBJECTIVE: VITAL SIGNS: Stable. He is afebrile. Blood pressures remain low. CHEST: Clear. HEART: Regular. ABDOMEN: Benign. EXTREMITIES: Right knee remains dressed. LABORATORY DATA: Creatinine is increased further this morning up to 2.5. Awaiting for renal opinion on the same. Blood cultures remain negative for the last 2 days from the . IMPRESSION: 1. Methicillin-susceptible Staphylococcus aureus sepsis from septic right knee. 2. Coagulopathy, improving. 3. Anemia, following surgery. 4. Acute kidney injury of uncertain etiology and awaiting renal opinion. Otherwise, same. LEYLA DR: Danielle TID: [id number]
[2020-12-07] MEDS ORDERED: IV NORMAL SALINE 1000ML BAG 1,000 ML IV ONE (11:45)
[2020-12-07 12:57] LABS: BILIRUBIN,URINE NEGATIVE (NEG); CLARITY,URINE CLOUDY; COLOR,URINE AMBER; NITRITE,URINE NEGATIVE (NEG); PROTEIN,URINE NEGATIVE (NEG-TRACE)
[2020-12-07 13:07] LABS: BACTERIA,URINE FEW /HPF (0-FEW)
[2020-12-07] MEDS: DAPTOmycin (GENERIC) IVPB 500 MG in IV NORMAL SALINE 50ML 50 ML IV SCH (13:22)
--- NOTE | 2020-12-07 14:46 | PDOC2 ---
CONSULT Date of Consult Date of Consult DATE: 12/07/20 TIME: 14:36 Reason for Consult Reason for Consult: GUERO Referring Physician Referring Physician: APPL Identification/Chief Complaint Chief Complaint WEAKNESS Source Source: Chart review, Patient History of Present Illness Reason for Visit: THIS IS AN 85 YR OLD WITH WEAKNESS. LABS SHOWED LEUCOCYTOSIS ON ADMIT. HAS BEEN DX WITH MSSA BACTEREMIA. ALSO HAS AN INFECTED RIGHT KNEE. NO CKD HX NOTED. CR HAS INCREASED FROM 0.9 TO 2.5. HE HAS BEEN RECEIVING ANTIBIOTICS. NO OTHER REPORTED HX. PO INTAKE HAS BEEN POOR. HEME EVAL FOR INCREASED INR. ALSO CARDIOLOGY EVAL SINCE HE RECENTLY HAS A PPM BATTERY EXCHANGE. HEMODYNAMICALLY STABLE NOW BUT DID HAVE HYPOTENSION COUPLE DAYS AGO WITH SPB LESS THAN 80. Past Medical History Cardiovascular: AFIB, CAD, CHF, HTN, Hyperlipidemia, Other (SSS; cardiomyopathy) Pulmonary: No pertinent hx CENTRAL NERVOUS SYSTEM: Carpal Tunnel Syndrome GI: No pertinent hx Heme/Onc: No pertinent hx Hepatobiliary: No pertinent hx Psych: No pertinent hx Musculoskeletal: Osteoarthritis Rheumatologic: No pertinent hx Infectious disease: No pertinent hx Renal/: No pertinent hx Endocrine: No pertinent hx Dermatology: No pertinent hx Past Surgical History Past Surgical History: Pacemaker, Total knee replacement (left), Other (PCI/BIPIN to LAD) Family History Family History: Heart Disease Social History No ALCOHOL: none Drugs: None Lives: Alone Current Problem List Problem List Problems Medical Problems: (1) Hypokalemia Status: Acute (2) Person under investigation for COVID-19 Status: Acute (3) Pneumonia Status: Acute (4) Sepsis Status: Acute Current Medications Current Medications Current Medications Ceftriaxone Sodium (Rocephin) 1 gm 1X ONCE IVP Last administered on 11/28/20at 13:30; Start 11/28/20 at 13:30; Stop 11/28/20 at 13:31; Status DC Azithromycin 500 mg/Sodium Chloride 250 ml @ 250 mls/hr 1X ONCE IV ; Start 11/28/20 at 13:30; Stop 11/28/20 at 14:29; Status UNV Azithromycin 250 ml @ 250 mls/hr 1X ONCE IV Last administered on 11/28/20at 15:11; Start 11/28/20 at 13:30; Stop 11/28/20 at 14:29; Status DC Acetaminophen (Tylenol) 1,000 mg 1X ONCE PO Last administered on 11/28/20at 15:10; Start 11/28/20 at 14:45; Stop 11/28/20 at 14:46; Status DC Potassium Chloride/Water 100 ml @ 50 mls/hr 1X ONCE IV Last administered on 11/28/20at 16:20; Start 11/28/20 at 14:45; Stop 11/28/20 at 16:44; Status DC Potassium Chloride (Klor-Con) 40 meq 1X ONCE PO Last administered on 11/28/20at 16:21; Start 11/28/20 at 14:45; Stop 11/28/20 at 14:46; Status DC Sodium Chloride 1,000 ml @ 1,000 mls/hr 1X ONCE IV Last administered on 11/28/20at 17:41; Start 11/28/20 at 17:45; Stop 11/28/20 at 18:44; Status DC Acetaminophen (Tylenol) 650 mg PRN Q6HRS PRN PO MILD PAIN / TEMP > 100.3'F Last administered on 11/28/20at 20:36; Start 11/28/20 at 20:30 Influenza Virus Vaccine Quadrival (Flulaval Quad [id number] Syringe) 0.5 ml ONCE ONCE VAX IM Last administered on 11/29/20at 10:06; Start 11/29/20 at 09:00; Stop 11/29/20 at 09:01; Status DC Acetaminophen/ Hydrocodone Bitart (Lortab 5/325) 1 tab PRN Q4HRS PRN PO PAIN mod/severe Last administered on 12/05/20at 17:38; Start 11/28/20 at 22:45; Stop 12/05/20 at 19:50; Status DC Ceftriaxone Sodium (Rocephin) 1 gm Q24H IVP ; Start 11/29/20 at 13:00; Stop 11/29/20 at 13:11; Status DC Azithromycin 250 ml @ 250 mls/hr DAILY ONCE IV ; Start 11/30/20 at 09:00; Stop 11/30/20 at 09:59; Status UNV Azithromycin 500 mg/Sodium Chloride 250 ml @ 250 mls/hr Q24H IV ; Start 1 at 15:00; Stop 11/29/20 at 13:50; Status DC Acetaminophen (Tylenol) 650 mg QHS PO Last administered on 12/06/20 21:03; Start 11/29/20 at 21:00 Aspirin (Aspirin Chewable) 81 mg DAILY PO Last administered on 12/07/20 08:28; Start 11/30/20 at 09:00 Docusate Sodium (Colace) 100 mg PRN BID PRN PO HARD STOOLS Last administered on 12/01/20at 12:10; Start 11/29/20 at 09:45 Warfarin Sodium (Coumadin) 3.75 mg DAILY PO ; Start 11/30/20 at 09:00; Status UNV Atorvastatin Calcium (Lipitor) 20 mg QHS PO Last administered on 12/06/20at 21:03; Start 11/29/20 at 21:00 Daptomycin 500 mg/ Sodium Chloride 50 ml @ 100 mls/hr Q24H IV Last administered on 11/30/20at 13:19; Start 11/29/20 at 13:00; Stop 12/01/20 at 07:32; Status DC Ceftriaxone Sodium (Rocephin) 2 gm Q24H IVP Last administered on 11/30/20at 13:21; Start 11/29/20 at 14:00; Stop 12/01/20 at 09:19; Status DC Lactobacillus Rhamnosus (Culturelle) 1 cap BID PO Last administered on 12/07/20 08:28; Start 11/29/20 at 21:00 Daptomycin 580 mg/ Sodium Chloride 50 ml @ 100 mls/hr Q24H IV Last administered on 12/01/20at 08:52; Start 12/01/20 at 07:30; Stop 12/01/20 at 09:19; Status DC Nafcillin Sodium 2 gm/Dextrose 100 ml @ 200 mls/hr Q4HRS IV Last administered on 12/07/20at 12:00; Start 12/01/20 at 10:00 Carvedilol (Coreg) 6.25 mg DAILY PO ; Start 12/01/20 at 12:00; Stop 12/01/20 at 12:00; Status DC Furosemide (Lasix) 40 mg DAILY PO Last administered on 12/07/20 08:28; Start 12/01/20 at 12:00 Potassium Chloride (Klor-Con) 20 meq DAILYWBKFT PO Last administered on 10/13/21at 08:28; Start 12/02/20 at 08:00 Potassium Chloride (Klor-Con) 20 meq 1X ONCE PO Last administered on 12/01/20at 12:12; Start 12/01/20 at 11:15; Stop 12/01/20 at 11:27; Status DC Carvedilol (Coreg) 3.125 mg BIDWMEALS PO Last administered on 12/03/20at 16:39; Start 12/01/20 at 12:00; Stop 12/05/20 at 20:11; Status DC Lidocaine HCl (Lidocaine 1% 20ml Vial) 10 ml 1X ONCE INJ ; Start 12/01/20 at 16:00; Stop 12/01/20 at 16:01; Status DC Ringer's Solution 1,000 ml @ 50 mls/hr Q20H IV Last administered on 12/05/20at 12:10; Start 12/05/20 at 07:00; Stop 12/05/20 at 18:59; Status DC Phytonadione (Vitamin K Ampule) 10 mg 1X ONCE SQ Last administered on 12/02/20at 11:09; Start 12/02/20 at 10:45; Stop 12/02/20 at 10:46; Status DC Sodium Chloride (Saline Mist Nasal) 1 hiro PRN Q1HR PRN NS NASAL CONGESTION Last administered on 12/03/20at 00:46; Start 12/02/20 at 20:45 Phytonadione (Vitamin K Ampule) 10 mg 1X ONCE SQ Last administered on 12/03/20at 11:17; Start 12/03/20 at 11:00; Stop 12/03/20 at 11:01; Status DC Docusate Sodium (Colace) 100 mg BID PO Last administered on 12/07/20at 08:29; Start 12/03/20 at 21:00 Polyethylene Glycol (miraLAX PACKET) 17 gm PRN DAILY PRN PO CONSTIPATION Last administered on 12/06/20at 09:16; Start 12/03/20 at 19:00 Fentanyl Citrate (Fentanyl 2ml Vial) 25 mcg PRN Q5MIN PRN IVP MILD PAIN 1-3; Start 12/04/20 at 09:30; Stop 12/05/20 at 09:29; Status DC Fentanyl Citrate (Fentanyl 2ml Vial) 50 mcg PRN Q5MIN PRN IVP MODERATE PAIN 4- 6; Start 12/04/20 at 09:30; Stop 12/05/20 at 09:29; Status DC Morphine Sulfate (Morphine Sulfate) 1 mg PRN Q10MIN PRN IVP SEVERE PAIN 7-10; Start 12/04/20 at 09:30; Stop 12/05/20 at 09:29; Status DC Ringer's Solution 1,000 ml @ 30 mls/hr Q24H IV ; Start 12/04/20 at 09:30; S top 12/04/20 at 21:29; Status DC Hydromorphone HCl (Dilaudid) 0.5 mg PRN Q10MIN PRN IVP SEVERE PAIN 7-10, 2nd CHOICE; Start 12/04/20 at 09:30; Stop 12/05/20 at 09:29; Status DC Prochlorperazine Edisylate (Compazine) 5 mg PACU PRN PRN IVP NAUSEA, MRX1; Start 12/04/20 at 09:30; Stop 12/05/20 at 09:29; Status DC Propofol (Diprivan) 200 mg STK-MED ONCE IV ; Start 12/04/20 at 10:43; Stop 12/04/20 at 10:43; Status DC Lidocaine HCl (Lidocaine Pf 2% Vial) 5 ml STK-MED ONCE .ROUTE ; Start 12/04/20 at 10:43; Stop 12/04/20 at 10:43; Status DC Phenylephrine HCl (PHENYLEPHRINE in 0.9% NACL PF) 1 mg STK-MED ONCE IV ; Start 12/04/20 at 10:43; Stop 12/04/20 at 10:43; Status DC Sevoflurane (Ultane) 60 ml STK-MED ONCE IH ; Start 12/04/20 at 11:14; Stop 12/15 at 11:14; Status DC Dexamethasone Sodium Phosphate (Decadron) 4 mg STK-MED ONCE .ROUTE ; Start 12/04/20 at 11:26; Stop 12/04/20 at 11:26; Status DC Ondansetron HCl (Zofran) 4 mg STK-MED ONCE .ROUTE ; Start 12/04/20 at 11:26; Stop 12/04/20 at 11:26; Status DC Fentanyl Citrate (Fentanyl 2ml Vial) 100 mcg STK-MED ONCE .ROUTE ; Start 12/04/20 at 11:26; Stop 12/04/20 at 11:26; Status DC Daptomycin 500 mg/ Sodium Chloride 50 ml @ 100 mls/hr Q24H IV Last administered on 12/07/20at 13:22; Start 12/05/20 at 10:00 Propofol (Diprivan) 200 mg STK-MED ONCE IV ; Start 12/05/20 at 09:29; Stop 12/05/20 at 09:30; Status DC Lidocaine HCl (Viscous Lidocaine) 15 ml STK-MED ONCE .ROUTE ; Start 12/05/20 at 10:06; Stop 12/05/20 at 10:06; Status DC Lidocaine HCl (Xylocaine 2% Topical 30gm Tube) 30 hiro STK-MED ONCE TP ; Start 12/05/20 at 10:06; Stop 12/05/20 at 10:06; Status DC Benzocaine (Hurricaine One) 1 spray STK-MED ONCE .ROUTE ; Start 12/05/20 at 10:06; Stop 12/05/20 at 10:07; Status DC Acetaminophen/ Hydrocodone Bitart (Lortab 10/325) 1 tab PRN Q4HRS PRN PO MODERATE TO SEVERE PAIN Last administered on 12/07/20at 08:45; Start 12/05/20 at 20:00 Zolpidem Tartrate (Ambien) 5 mg PRN QHS PRN PO INSOMNIA Last administered on 12/06/20at 21:08; Start 12/05/20 at 20:00 Sodium Chloride 1,000 ml @ 1,000 mls/hr 1X ONCE IV Last administered on 12/06/20at 09:32; Start 12/06/20 at 09:15; Stop 12/06/20 at 10:14; Status DC Sodium Chloride 1,000 ml @ 100 mls/hr 1X ONCE IV Last administered on 12/06/20at 15:30; Start 12/06/20 at 13:15; Stop 12/06/20 at 23:14; Status DC Sodium Chloride 1,000 ml @ 100 mls/hr 1X ONCE IV Last administered on 12/07/20at 13:24; Start 12/07/20 at 11:45; Stop 12/07/20 at 21:44 Active Scripts Active Reported Acetaminophen 325 Mg Tablet 650 Mg PO QHS Aspirin 81 Mg Tab.chew 1 Tab PO DAILY Men's Multivitamin Tablet (Multivit-Min/Folic/Vit K/Lycop) 1 Each Tablet 1 Each PO DAILY Carvedilol (Carvedilol) 6.25 Mg Tablet 6.25 Mg PO DAILY Pravastatin Sodium 80 Mg Tablet 1 Tab PO DAILY Lasix (Furosemide) 40 Mg Tablet 1 Tab PO DAILY Colace (Docusate Sodium) 100 Mg Capsule 1 Cap PO PRN BID PRN Lisinopril 10 Mg Tablet 1 Tab PO DAILY Coumadin (Warfarin Sodium) 2.5 Mg Tablet 1.5 Tab PO DAILY Allergies Allergies: Coded Allergies: No Known Drug Allergies (Unverified , 07/22/20) ROS General: YES: Fatigue, Malaise, Appetite PSYCHOLOGICAL ROS: YES: Anxiety, Depression Eyes: Yes Decreased vision HEENT: YES: Heacaches Respiratory: YES: Cough Gastrointestinal: Yes Constipation Genitourinary: YES Frequency Musculoskeletal: Yes Joint Pain, Yes Joint Stiffness Neurological: Yes Weakness Skin: Yes Dry Skin Physical Exam General: Alert, Oriented X3, Cooperative, No acute distress HEENT: Atraumatic Lungs: Clear to auscultation Heart: Regular rate Abdomen: Normal bowel sounds, Soft, No tenderness Extremities: No clubbing Skin: No breakdown Neuro: Normal speech Psych/Mental Status: Mental status NL MUSCULOSKELETAL: No joint tenderness, No deformity, No swelling Vitals VITALS Vital Signs Date Time Temp Pulse Resp B/P (MAP) Pulse Ox O2 Delivery O2 Flow Rate FiO2 12/07/20 11:00 98.4 60 20 88/37 (54) 95 Room Air 98.4 12/07/20 09:15 2.0 Labs Labs Laboratory Tests Test 12/05/20 17:05 12/06/20 07:00 12/06/20 13:35 12/07/20 05:50 Hemoglobin 9.6 g/dL (13.0-17.5) 8.9 g/dL (13.0-17.5) 9.6 g/dL (13.0-17.5) 9.0 g/dL (13.0-17.5) Hematocrit 29.0 % (39.0-53.0) 26.9 % (39.0-53.0) 28.6 % (39.0-53.0) 27.3 % (39.0-53.0) Mean Corpuscular Hemoglobin Concent 33 g/dL (31-37) 33 g/dL (31-37) 33 g/dL (31-37) 33 g/dL (31-37) White Blood Count 11.9 x10^3/uL (4.0-11.0) 14.5 x10^3/uL (4.0-11.0) 13.1 x10^3/uL (4.0-11.0) Red Blood Count 2.97 x10^6/uL (4.30-5.70) 3.17 x10^6/uL (4.30-5.70) 3.06 x10^6/uL (4.30-5.70) Mean Corpuscular Volume 91 fL (79-100) 90 fL (79-100) 89 fL (79-100) Mean Corpuscular Hemoglobin 30 pg (25-35) 30 pg (25-35) 30 pg (25-35) Red Cell Distribution Width 14.7 % (11.5-14.5) 14.8 % (11.5-14.5) 14.8 % (11.5-14.5) Platelet Count 358 x10^3/uL (140-400) 394 x10^3/uL (140-400) 384 x10^3/uL (140-400) Neutrophils (%) (Auto) 80 % (31-73) 84 % (31-73) Lymphocytes (%) (Auto) 10 % (24-48) 8 % (24-48) Monocytes (%) (Auto) 7 % (0-9) 6 % (0-9) Eosinophils (%) (Auto) 3 % (0-3) 2 % (0-3) Basophils (%) (Auto) 0 % (0-3) 0 % (0-3) Neutrophils # (Auto) 9.5 x10^3/uL (1.8-7.7) 11.0 x10^3/uL (1.8-7.7) Lymphocytes # (Auto) 1.2 x10^3/uL (1.0-4.8) 1.0 x10^3/uL (1.0-4.8) Monocytes # (Auto) 0.9 x10^3/uL (0.0-1.1) 0.8 x10^3/uL (0.0-1.1) Eosinophils # (Auto) 0.3 x10^3/uL (0.0-0.7) 0.2 x10^3/uL (0.0-0.7) Basophils # (Auto) 0.0 x10^3/uL (0.0-0.2) 0.1 x10^3/uL (0.0-0.2) Prothrombin Time 23.0 SEC (11.7-14.0) Prothromb Time International Ratio 2.1 (0.8-1.1) Sodium Level 130 mmol/L (136-145) 130 mmol/L (136-145) Potassium Level 4.4 mmol/L (3.5-5.1) 4.4 mmol/L (3.5-5.1) Chloride Level 92 mmol/L (98-107) 93 mmol/L (98-107) Carbon Dioxide Level 31 mmol/L (21-32) 32 mmol/L (21-32) Anion Gap 7 (6-14) 5 (6-14) Blood Urea Nitrogen 53 mg/dL (8-26) 60 mg/dL (8-26) Creatinine 2.3 mg/dL (0.7-1.3) 2.5 mg/dL (0.7-1.3) Estimated GFR (Cockcroft-Gault) 27.3 24.8 Glucose Level 122 mg/dL (70-99) 95 mg/dL (70-99) Calcium Level 6.8 mg/dL (8.5-10.1) 6.7 mg/dL (8.5-10.1) Test 12/07/20 12:30 Urine Collection Type Unknown Urine Color Anali Urine Clarity Cloudy Urine pH 6.0 (<5.0-8.0) Urine Specific [place] 1.015 (1.000-1.030) Urine Protein Negative mg/dL (NEG-TRACE) Urine Glucose (UA) Negative mg/dL (NEG) Urine Ketones (Stick) Negative mg/dL (NEG) Urine Blood Moderate (NEG) Urine Nitrite Negative (NEG) Urine Bilirubin Negative (NEG) Urine Urobilinogen Dipstick 1.0 mg/dL (0.2 mg/dL) Urine Leukocyte Esterase Small (NEG) Urine RBC 6-10 /HPF (0-2) Urine WBC 11-20 /HPF (0-4) Urine Squamous Epithelial Cells Few /LPF Urine Bacteria Few /HPF (0-FEW) Urine Eosinophils Eos not observed Laboratory Tests Test 12/07/20 05:50 12/07/20 12:30 White Blood Count 13.1 x10^3/uL (4.0-11.0) Red Blood Count 3.06 x10^6/uL (4.30-5.70) Hemoglobin 9.0 g/dL (13.0-17.5) Hematocrit 27.3 % (39.0-53.0) Mean Corpuscular Volume 89 fL (79-100) Mean Corpuscular Hemoglobin 30 pg (25-35) Mean Corpuscular Hemoglobin Concent 33 g/dL (31-37) Red Cell Distribution Width 14.8 % (11.5-14.5) Platelet Count 384 x10^3/uL (140-400) Neutrophils (%) (Auto) 84 % (31-73) Lymphocytes (%) (Auto) 8 % (24-48) Monocytes (%) (Auto) 6 % (0-9) Eosinophils (%) (Auto) 2 % (0-3) Basophils (%) (Auto) 0 % (0-3) Neutrophils # (Auto) 11.0 x10^3/uL (1.8-7.7) Lymphocytes # (Auto) 1.0 x10^3/uL (1.0-4.8) Monocytes # (Auto) 0.8 x10^3/uL (0.0-1.1) Eosinophils # (Auto) 0.2 x10^3/uL (0.0-0.7) Basophils # (Auto) 0.1 x10^3/uL (0.0-0.2) Sodium Level 130 mmol/L (136-145) Potassium Level 4.4 mmol/L (3.5-5.1) Chloride Level 93 mmol/L (98-107) Carbon Dioxide Level 32 mmol/L (21-32) Anion Gap 5 (6-14) Blood Urea Nitrogen 60 mg/dL (8-26) Creatinine 2.5 mg/dL (0.7-1.3) Estimated GFR (Cockcroft-Gault) 24.8 Glucose Level 95 mg/dL (70-99) Calcium Level 6.7 mg/dL (8.5-10.1) Urine Collection Type Unknown Urine Color Anali Urine Clarity Cloudy Urine pH 6.0 (<5.0-8.0) Urine Specific [place] 1.015 (1.000-1.030) Urine Protein Negative mg/dL (NEG-TRACE) Urine Glucose (UA) Negative mg/dL (NEG) Urine Ketones (Stick) Negative mg/dL (NEG) Urine Blood Moderate (NEG) Urine Nitrite Negative (NEG) Urine Bilirubin Negative (NEG) Urine Urobilinogen Dipstick 1.0 mg/dL (0.2 mg/dL) Urine Leukocyte Esterase Small (NEG) Urine RBC 6-10 /HPF (0-2) Urine WBC 11-20 /HPF (0-4) Urine Squamous Epithelial Cells Few /LPF Urine Bacteria Few /HPF (0-FEW) Urine Eosinophils Eos not observed Assessment/Plan Assessment/Plan IMP ECVD HYPOTENSION GUERO DUE TO ABOVE SEPSIS RIGHT KNEE EFFUSION SSS WITH PPM-RECENT BATTERY EXCHANGE CHRONIC AFIB ANTICOAGULATION PLAN HOLD LASIX AND KCL HYDRATION EXPECT IMPROVEMENT IN RENAL FXN WITH IMPROVED HEMODYNAMICS CHECK UA-RULE OUT IN D/W ID ALFREDO EASTON MD Dec 07, 2020 14:45
[2020-12-07] MEDS: ZOLPIDEM 5 MG TABLET. PO PRN (21:33)
[2020-12-07] MEDS: ACETAMINOPHEN 325 MG TABLET. PO SCH (21:33)
[2020-12-07] MEDS: ATORVASTATIN CALCIUM 20 MG TABLET PO SCH (21:35)
[2020-12-08] MEDS: NAFCILLIN 2 GM in IV DEXTROSE 5% 100ML 100 ML IV SCH ×7 (00:45→21:10)
[2020-12-08 03:36] VITALS: BP 107/52
[2020-12-08 07:00] VITALS: BP 115/45
--- NOTE | 2020-12-08 08:10 | PDOC ---
Infectious Disease Note Subjective Subjective pt is feeling ok, no bleeding ROS ROS No nausea vomiting diarrhea Has not been able to get up and walk Vital Sign Vital Signs Vital Signs Date Time Temp Pulse Resp B/P (MAP) Pulse Ox O2 Delivery O2 Flow Rate FiO2 12/08/20 03:36 98.4 62 18 107/52 (70) 96 Nasal Cannula 2.0 98.4 Physical Exam PHYSICAL EXAM GENERAL: Alert, oriented x 3 male, in no acute distress. HEENT: Normocephalic, atraumatic. Anicteric. NECK: Supple, no JVD. LUNGS: Clear except for decreased breath sounds at the bases. HEART: S1, S2, systolic murmur present. Pacemaker site looks okay. PPM incision site dry scab no redness no fluctuance ABDOMEN: Soft, nontender, nondistended. EXTREMITIES: Right knee prepatellar swelling present. Erythema. Warmth. post surgery dressing not opened No cyanosis or clubbing DERMATOLOGIC: Warm, dry, no generalized rash. NEUROLOGIC: Alert and oriented x 3, grossly nonfocal. PSYCHIATRIC: Calm and cooperative. Labs Lab Laboratory Tests Test 12/07/20 12:30 Urine Collection Type Unknown Urine Color Anali Urine Clarity Cloudy Urine pH 6.0 (<5.0-8.0) Urine Specific [place] 1.015 (1.000-1.030) Urine Protein Negative mg/dL (NEG-TRACE) Urine Glucose (UA) Negative mg/dL (NEG) Urine Ketones (Stick) Negative mg/dL (NEG) Urine Blood Moderate (NEG) Urine Nitrite Negative (NEG) Urine Bilirubin Negative (NEG) Urine Urobilinogen Dipstick 1.0 mg/dL (0.2 mg/dL) Urine Leukocyte Esterase Small (NEG) Urine RBC 6-10 /HPF (0-2) Urine WBC 11-20 /HPF (0-4) Urine Squamous Epithelial Cells Few /LPF Urine Bacteria Few /HPF (0-FEW) Urine Eosinophils Eos not observed Micro BC from 12/05 negative SOO neg Objective Assessment Persistent methicillin sensitive staph aureus bacteremia 4 of 4 bottles present on admission 11/28/2020, November 30 and December 02 History of PPM.H/O recent battery exchange. Sepsis from Gram-positive bacteremia. Improving Leukocytosis and bandemia. Improving Rt Knee pain and swelling status post synovial aspirate WBC 30,000 RBC 66,000 -Cultures staph aureus Generalized weakness. Improving History of fall. Hypokalemia.Hyponatremia. History of atrial fibrillation. Hypertension. Coagulopathy last INR of 15 GUERO Plan Plan of Care Continue nafcillin Follow-up repeat blood cultures from 12/05 so far negative Follow-up synovial fluid cultures positive for staph aureus Monitor labs and cultures. Continue supportive care. Maintain aspiration precaution Discussed with Dr. Garrison Discussed with nursing staff pt/ot PICC line can be placed now and patient is going to need long-term IV antibiotics JYOTI BALLESTEROS MD Dec 08, 2020 08:10
[2020-12-08] MEDS: ASPIRIN CHEWABLE 81 MG TABLET. PO SCH (08:34)
[2020-12-08] MEDS: DOCUSATE SODIUM 100 MG CAPSULE. PO SCH ×2 (08:34→21:10)
[2020-12-08] MEDS: LACTOBACILLUS RHAMNOSUS GG 1 CAPSULE. PO SCH ×2 (08:34→21:10)
[2020-12-08 09:17] LABS: CALCIUM 6.6 mg/dL (8.5-10.1); CREATININE 2.8 mg/dL (0.7-1.3); GFR 21.7
--- NOTE | 2020-12-08 09:53 | PDOC ---
DATE OF SERVICE DATE: 12/08/20 TIME: 09:45 SUBJECTIVE ROS Resting comfortably, No SOB at rest OBJECTIVE Vital Signs Vital Signs Date Time Temp Pulse Resp B/P (MAP) Pulse Ox O2 Delivery O2 Flow Rate FiO2 12/08/20 07:00 98.3 61 20 115/45 (68) 95 Room Air 98.3 12/08/20 03:36 2.0 I & 0 Intake and Output 12/08/20 07:00 Intake Total 370 ml Output Total 975 ml Balance -605 ml Intake Oral 170 ml IV Total 200 ml Output Urine Total 975 ml # Bowel Movements 3 PHYSICAL EXAM Physical Exam GENERAL: no acute distress. HEENT: Normocephalic, atraumatic. Anicteric. NECK: Supple, no JVD. LUNGS: decreased breath sounds at the bases, non labored . HEART: S1, S2, systolic murmur present. Pacemaker + ABDOMEN: Soft, nontender, nondistended. EXTREMITIES: Right knee prepatellar swelling present. Erythema. Warmth. post surgery dressing + DERM: no generalized rash. NEUROLOGIC: Alert and oriented x 3, grossly nonfocal. DIAGNOSIS/ASSESSMENT Assessment & Plan GUERO - ATN /Hypotension/ Sepsis - worsening renal function ,no improvement with IVF ; DC IVF (Hx of CHF) Non Oliguric . Monitor , supportive care , strict I/O . Will get Renal US UA no eosinophils, No casts, Cx No growth(On Abx ) . HypoNatremia- Mild, monitor Sepsis from Gram-positive bacteremia - MSSA bacteremia History of PPM.H/O recent battery exchange. Rt Knee pain and swelling status post synovial aspirate WBC 30,000 RBC 66,000; - Cultures staph aureus History of atrial fibrillation. Hypertension- BP 's low, antihypertensives (ESTEFANY-i, Coreg, Lasix ) held COMMENT/RELEVANT DATA Meds Current Medications Medications (Trade) Dose Ordered Sig/Gia Start Time Stop Time Status Last Admin Dose Admin Acetaminophen (Tylenol) 650 mg QHS 11/29/20 21:00 12/07/20 21:33 650 MG Acetaminophen/ Hydrocodone Bitart (Lortab 10/325) 1 tab PRN Q4HRS PRN 12/05/20 20:00 12/07/20 18:31 1 TAB Acetaminophen/ Hydrocodone Bitart (Lortab 5/325) 1 tab PRN Q4HRS PRN 11/28/20 22:45 12/05/20 19:50 DC 12/05/20 17:38 1 TAB Aspirin (Aspirin Chewable) 81 mg DAILY 11/30/20 09:00 12/08/20 08:34 81 MG Atorvastatin Calcium (Lipitor) 20 mg QHS 11/29/20 21:00 12/07/20 21:35 20 MG Azithromycin 250 ml @ 250 mls/hr DAILY ONCE 11/30/20 09:00 11/30/20 09:59 UNV Azithromycin 500 mg/Sodium Chloride 250 ml @ 250 mls/hr Q24H 11/29/20 15:00 11/29/20 13:50 DC Benzocaine (Hurricaine One) 1 spray STK-MED ONCE 12/05/20 10:06 12/05/20 10:07 DC Carvedilol (Coreg) 3.125 mg BIDWMEALS 12/01/20 12:00 12/05/20 20:11 DC 12/03/20 16:39 3.125 MG Ceftriaxone Sodium (Rocephin) 2 gm Q24H 11/29/20 14:00 12/01/20 09:19 DC 11/30/20 13:21 2 GM Daptomycin 500 mg/ Sodium Chloride 50 ml @ 100 mls/hr Q24H 12/05/20 10:00 12/07/20 13:22 100 MLS/HR Daptomycin 580 mg/ Sodium Chloride 50 ml @ 100 mls/hr Q24H 12/01/20 07:30 12/01/20 09:19 DC 12/01/20 08:52 100 MLS/HR Dexamethasone Sodium Phosphate (Decadron) 4 mg STK-MED ONCE 12/04/20 11:26 12/04/20 11:26 DC Docusate Sodium (Colace) 100 mg BID 12/03/20 21:00 12/08/20 08:34 100 MG Fentanyl Citrate (Fentanyl 2ml Vial) 100 mcg STK-MED ONCE 12/04/20 11:26 12/04/20 11:26 DC Furosemide (Lasix) 40 mg DAILY 12/01/20 12:00 12/07/20 14:46 DC 12/07/20 08:28 40 MG Hydromorphone HCl (Dilaudid) 0.5 mg PRN Q10MIN PRN 12/04/20 09:30 12/05/20 09:29 DC Influenza Virus Vaccine Quadrival (Flulaval Quad Syringe) 0.5 ml ONCE ONCE 11/29/20 09:00 11/29/20 09:01 DC 11/29/20 10:06 0.5 ML Lactobacillus Rhamnosus (Culturelle) 1 cap BID 11/29/20 21:00 12/08/20 08:34 1 CAP Lidocaine HCl (Lidocaine 1% 20ml Vial) 10 ml 1X ONCE 12/01/20 16:00 12/01/20 16:01 DC Lidocaine HCl (Lidocaine Pf 2% Vial) 5 ml STK-MED ONCE 12/04/20 10:43 12/04/20 10:43 DC Lidocaine HCl (Viscous Lidocaine) 15 ml STK-MED ONCE 12/05/20 10:06 12/05/20 10:06 DC Lidocaine HCl (Xylocaine 2% Topical 30gm Tube) 30 hiro STK-MED ONCE 12/05/20 10:06 12/05/20 10:06 DC Morphine Sulfate (Morphine Sulfate) 1 mg PRN Q10MIN PRN 12/04/20 09:30 12/05/20 09:29 DC Nafcillin Sodium 2 gm/Dextrose 100 ml @ 200 mls/hr Q4HRS 12/01/20 10:00 12/08/20 08:34 200 MLS/HR Ondansetron HCl (Zofran) 4 mg STK-MED ONCE 12/04/20 11:26 12/04/20 11:26 DC Phenylephrine HCl (PHENYLEPHRINE in 0.9% NACL PF) 1 mg STK-MED ONCE 12/04/20 10:43 12/04/20 10:43 DC Phytonadione (Vitamin K Ampule) 10 mg 1X ONCE 12/03/20 11:00 12/03/20 11:01 DC 12/03/20 11:17 10 MG Polyethylene Glycol (miraLAX PACKET) 17 gm PRN DAILY PRN 12/03/20 19:00 12/06/20 09:16 17 GM Potassium Chloride/Water 100 ml @ 50 mls/hr 1X ONCE 11/28/20 14:45 11/28/20 16:44 DC 11/28/20 16:20 50 MLS/HR Potassium Chloride (Klor-Con) 20 meq 1X ONCE 12/01/20 11:15 12/01/20 11:27 DC 12/01/20 12:12 20 MEQ Prochlorperazine Edisylate (Compazine) 5 mg PACU PRN PRN 12/04/20 09:30 12/05/20 09:29 DC Propofol (Diprivan) 200 mg STK-MED ONCE 12/05/20 09:29 12/05/20 09:30 DC Ringer's Solution 1,000 ml @ 30 mls/hr Q24H 12/04/20 09:30 12/04/20 21:29 DC Sevoflurane (Ultane) 60 ml STK-MED ONCE 12/04/20 11:14 12/04/20 11:14 DC Sodium Chloride 1,000 ml @ 100 mls/hr 1X ONCE 12/07/20 11:45 12/07/20 21:44 DC 12/07/20 13:24 100 MLS/HR Sodium Chloride (Saline Mist Nasal) 1 hiro PRN Q1HR PRN 12/02/20 20:45 12/03/20 00:46 1 HIRO Warfarin Sodium (Coumadin) 3.75 mg DAILY 11/30/20 09:00 UNV Zolpidem Tartrate (Ambien) 5 mg PRN QHS PRN 12/05/20 20:00 12/07/20 21:33 5 MG Lab Laboratory Tests Test 12/07/20 12:30 12/08/20 07:00 Urine Collection Type Unknown Urine Color Anali Urine Clarity Cloudy Urine pH 6.0 (<5.0-8.0) Urine Specific [place] 1.015 (1.000-1.030) Urine Protein Negative mg/dL (NEG-TRACE) Urine Glucose (UA) Negative mg/dL (NEG) Urine Ketones (Stick) Negative mg/dL (NEG) Urine Blood Moderate (NEG) Urine Nitrite Negative (NEG) Urine Bilirubin Negative (NEG) Urine Urobilinogen Dipstick 1.0 mg/dL (0.2 mg/dL) Urine Leukocyte Esterase Small (NEG) Urine RBC 6-10 /HPF (0-2) Urine WBC 11-20 /HPF (0-4) Urine Squamous Epithelial Cells Few /LPF Urine Bacteria Few /HPF (0-FEW) Urine Eosinophils Eos not observed Sodium Level 130 mmol/L (136-145) Potassium Level 4.0 mmol/L (3.5-5.1) Chloride Level 93 mmol/L (98-107) Carbon Dioxide Level 30 mmol/L (21-32) Anion Gap 7 (6-14) Blood Urea Nitrogen 67 mg/dL (8-26) Creatinine 2.8 mg/dL (0.7-1.3) Estimated GFR (Cockcroft-Gault) 21.7 Glucose Level 95 mg/dL (70-99) Calcium Level 6.6 mg/dL (8.5-10.1) Results All relevant outside records, renal labs, imaging studies, telemetry/EKG's were reviewed. Justicifation of Admission Dx: Justifications for Admission: Justification of Admission Dx: N/A MERLE QUIROZ MD Dec 08, 2020 09:53
[2020-12-08] MEDS: DAPTOmycin (GENERIC) IVPB 500 MG in IV NORMAL SALINE 50ML 50 ML IV SCH (11:03)
[2020-12-08 11:05] VITALS: BP 106/52
--- NOTE | 2020-12-08 11:12 | PDOC ---
MINERVA QUINONEZ [employer]ICKEL PLANT OPERATOR 12/08/20 1112: CARDIO Progress Notes Date and Time Date of Service 12/08/2020 Time of Evaluation 0920 Subjective Subjective: No Chest Pain, No shortness of breath, No Palpitations Vitals Vitals Vital Signs Date Time Temp Pulse Resp B/P (MAP) Pulse Ox O2 Delivery O2 Flow Rate FiO2 12/08/20 07:00 98.3 61 20 115/45 (68) 95 Room Air 98.3 12/08/20 03:36 2.0 Weight Weight [ ] Input and Output Intake and Output Intake and Output 12/08/20 07:00 Intake Total 370 ml Output Total 975 ml Balance -605 ml Intake Oral 170 ml IV Total 200 ml Output Urine Total 975 ml # Bowel Movements 3 Laboratory Labs Laboratory Tests Test 12/07/20 12:30 12/08/20 07:00 Urine Collection Type Unknown Urine Color Anali Urine Clarity Cloudy Urine pH 6.0 (<5.0-8.0) Urine Specific [place] 1.015 (1.000-1.030) Urine Protein Negative mg/dL (NEG-TRACE) Urine Glucose (UA) Negative mg/dL (NEG) Urine Ketones (Stick) Negative mg/dL (NEG) Urine Blood Moderate (NEG) Urine Nitrite Negative (NEG) Urine Bilirubin Negative (NEG) Urine Urobilinogen Dipstick 1.0 mg/dL (0.2 mg/dL) Urine Leukocyte Esterase Small (NEG) Urine RBC 6-10 /HPF (0-2) Urine WBC 11-20 /HPF (0-4) Urine Squamous Epithelial Cells Few /LPF Urine Bacteria Few /HPF (0-FEW) Urine Eosinophils Eos not observed Sodium Level 130 mmol/L (136-145) Potassium Level 4.0 mmol/L (3.5-5.1) Chloride Level 93 mmol/L (98-107) Carbon Dioxide Level 30 mmol/L (21-32) Anion Gap 7 (6-14) Blood Urea Nitrogen 67 mg/dL (8-26) Creatinine 2.8 mg/dL (0.7-1.3) Estimated GFR (Cockcroft-Gault) 21.7 Glucose Level 95 mg/dL (70-99) Calcium Level 6.6 mg/dL (8.5-10.1) Microbiology Micro Microbiology 12/07/20 Urine Culture - Final, Complete 12/05/20 Blood Culture - Preliminary, Resulted NO GROWTH AFTER 3 DAYS 12/04/20 Gram Stain - Final, Resulted 12/04/20 Aerobic and Anaerobic Culture - Preliminary, Resulted Physical Exam HEENT: Neck Supple W Full Motion Chest: Symmetric LUNGS: Other (diminished bases) Heart: other (V paced with underlying AFIB) Abdomen: Soft N/T Extremities: Other (right knee effusion, 3+ RLE edema and 2+ LLE edema pitting) Neurology: alert, oriented, follow commands Assessment Assessment 1. Mechanical fall with right knee effusion: mainly due to weakness. S/P I & D POD#2 2. Sepsis with bacteremia (MRSA): no intracardiac vegetation per SOO. EF and WM nml 3. S/P PPM with generator change: 11/01/2020.[employer]tr[employer], functioning normally 4. Hx of SSS 5. Chronic AFIB: rate controlled with intermittent pacing 6. HTN: presently hypotensive 7. HLP: on statin 8. CAD: clinically stable 9. Coagulopathy with coumadin: antibiotic is contributing. INR now at 2.1 with recent Vit K 10. Acute on chronic diastolic CHF: appears compensated 11. Postoperative anemia 12. GUERO: ATN? nephrology following. Cr^2.8 Recommendations 1. INR 2.1, Will place on low dose eliquis when clear with hematology and ortho 2. Continue ASA and secondary prevention measures. 3. Avoid nephrotoxic agents. Wt increasing, holding lasix. DC IVF. Monitor Cr. Discussed with nephrology 4. Continue Abx per ID 5. Toprol for rate control Justicifation of Admission Dx: Justifications for Admission: Justification of Admission Dx: N/A IRMA GONZALES MD 12/08/20 2016: CARDIO Progress Notes Assessment Assessment Patient seen and examined. Agree with MEDICAL OFFICE TECHNOLOGY INSTRUCTOR's assessment and plan Perm AF rate controlled Ac on chr diast HF better compensated CAD, SSS s/p PPM stable SOO did not show any intracardiac thrombus or vegetation Continue treatment of sepsis/bacteremia per ID team MINERVA QUINONEZ APRN Dec 08, 2020 11:12 IRMA GONZALES MD Dec 08, 2020 20:16
[2020-12-08] MEDS: HYDROcodone/APAP 10/325 1 TAB TABLET PO PRN ×2 (11:14→18:54)
--- NOTE | 2020-12-08 12:33 | NUR ---
SW following. Discussed with RN, pt's insurance approved for transfer to [facility]. Pt having some new renal problems today - Nephrology consulted. Hopefully ready for discharge tomorrow. RN notified. SW will continue to follow.
[2020-12-08 13:26] LABS: PROTHROMBIN TIME PATIENT 15.1 SEC (11.7-14.0)
[2020-12-08 15:05] VITALS: BP 95/48
--- NOTE | 2020-12-08 15:41 | RAD ---
EXAM: RENAL/RETROPERITONAL ULTRASOUND. HISTORY: Acute renal injury. COMPARISON: 08/18/2012. FINDINGS: Ultrasound of the kidneys, bladder and retroperitoneum was performed. Visualization is limi leif by habitus. The right kidney measures 10.6 cm. Cortical thickness and echogenicity are preserved. There is no hyd ronephrosis. A cyst at the right renal upper pole appears benign. The left kidney measures 14.1 cm. Cortical thickness and echogenicity are preserved. There is no hydr onephrosis. A 2.4 cm cyst inferolaterally appears benign. Another exophytic cyst measures 3.3 cm and also appears benign. There is diffuse bladder wall thickening. The abdominal aorta and inferior vena cava are grossly padilla nt and normal in caliber. IMPRESSION: 1. No hydronephrosis. 2. Visualization is limited by habitus, but bilateral renal cysts appear benign. Electronically signed by: Balbina Nguyễn MD (12/08/2020 3:39 PM) [id number]
[2020-12-08 19:00] VITALS: BP 117/53
--- NOTE | 2020-12-08 20:20 | PN ---
DATE: 11/28/2020 DAILY PROGRESS NOTE LOCATION: He is in room #514. SUBJECTIVE: This 85-year-old male remains hospitalized with MSSA sepsis from a right knee source. He is gradually feeling better. He is much less achy and more mobile. OBJECTIVE: VITAL SIGNS: Stable. He is afebrile. Blood pressures remain on the low side but he is asymptomatic. CHEST: Clear. HEART: Regular. ABDOMEN: Benign. Right knee dressed. LABORATORY DATA: Creatinine is up to 2.8 this morning. Renal has seen him. Blood cultures from the remain negative. IMPRESSION: 1. Methicillin-susceptible Staphylococcus aureus sepsis from septic right knee. 2. Coagulopathy, improving. 3. Anemia following surgery. 4. Acute kidney injury of uncertain etiology. PLAN: Continue present care. Renal help with kidneys will be appreciated, otherwise he seems to be progressing well. BEST/JAIRO DR: Danielle TID: [id number]
[2020-12-08] MEDS: ACETAMINOPHEN 325 MG TABLET. PO SCH (21:10)
[2020-12-08] MEDS: ZOLPIDEM 5 MG TABLET. PO PRN (21:10)
[2020-12-08] MEDS: ATORVASTATIN CALCIUM 20 MG TABLET PO SCH (21:11)
[2020-12-08 23:14] VITALS: BP 110/54
[2020-12-09] MEDS: NAFCILLIN 2 GM in IV DEXTROSE 5% 100ML 100 ML IV SCH ×6 (01:34→20:16)
[2020-12-09 03:25] VITALS: BP 92/53
[2020-12-09 07:00] VITALS: BP 134/48
[2020-12-09] MEDS: HYDROcodone/APAP 10/325 1 TAB TABLET PO PRN (07:59)
[2020-12-09] MEDS: DOCUSATE SODIUM 100 MG CAPSULE. PO SCH ×2 (08:00→20:19)
[2020-12-09] MEDS: ASPIRIN CHEWABLE 81 MG TABLET. PO SCH (08:00)
[2020-12-09] MEDS: LACTOBACILLUS RHAMNOSUS GG 1 CAPSULE. PO SCH ×2 (08:00→20:17)
[2020-12-09] MEDS: METOPROLOL SUCC 24HR ER 25 MG TAB.ER.24H. PO SCH (08:05)
--- NOTE | 2020-12-09 08:23 | PDOC ---
Infectious Disease Note Subjective Subjective pt is feeling ok, no bleeding Vital Sign Vital Signs Vital Signs Date Time Temp Pulse Resp B/P (MAP) Pulse Ox O2 Delivery O2 Flow Rate FiO2 12/09/20 08:05 61 134/48 12/09/20 07:59 Room Air 12/09/20 03:25 97.8 18 94 97.8 12/08/20 18:54 2.0 Physical Exam PHYSICAL EXAM GENERAL: Alert, oriented x 3 male, in no acute distress. HEENT: Normocephalic, atraumatic. Anicteric. NECK: Supple, no JVD. LUNGS: Clear except for decreased breath sounds at the bases. HEART: S1, S2, systolic murmur present. Pacemaker site looks okay. PPM incision site dry scab no redness no fluctuance ABDOMEN: Soft, nontender, nondistended. EXTREMITIES: Right knee prepatellar swelling present. Erythema. Warmth. post surgery dressing not opened No cyanosis or clubbing DERMATOLOGIC: Warm, dry, no generalized rash. NEUROLOGIC: Alert and oriented x 3, grossly nonfocal. PSYCHIATRIC: Calm and cooperative. Labs Lab Laboratory Tests Test 12/08/20 13:06 Prothrombin Time 15.1 SEC (11.7-14.0) Prothromb Time International Ratio 1.2 (0.8-1.1) Micro BC from 12/05 negative SOO neg Objective Assessment Persistent methicillin sensitive staph aureus bacteremia 4 of 4 bottles present on admission 11/28/2020, November 30 and December 02 History of PPM.H/O recent battery exchange. Sepsis from Gram-positive bacteremia. Improving Leukocytosis and bandemia. Improving Rt Knee pain and swelling status post synovial aspirate WBC 30,000 RBC 66,000 -Cultures staph aureus Generalized weakness. Improving History of fall. Hypokalemia.Hyponatremia. History of atrial fibrillation. Hypertension. Coagulopathy last INR of 15 GUERO Plan Plan of Care Continue nafcillin Follow-up repeat blood cultures from 12/05 so far negative Follow-up synovial fluid cultures positive for staph aureus Monitor labs and cultures. Continue supportive care. Maintain aspiration precaution Discussed with Dr. Garrison Discussed with nursing staff pt/ot PICC line can be placed now and patient is going to need long-term IV antibiotics JYOTI BALLESTEROS MD Dec 09, 2020 08:23
[2020-12-09 08:46] LABS: CALCIUM 6.3 mg/dL (8.5-10.1); CREATININE 2.8 mg/dL (0.7-1.3); GFR 21.7; POTASSIUM 3.9 mmol/L (3.5-5.1)
--- NOTE | 2020-12-09 09:11 | PDOC ---
Infectious Disease Note Subjective Subjective pt is feeling much better ROS ROS No nausea vomiting diarrhea chest pain shortness of breath Vital Sign Vital Signs Vital Signs Date Time Temp Pulse Resp B/P (MAP) Pulse Ox O2 Delivery O2 Flow Rate FiO2 12/09/20 08:05 61 134/48 12/09/20 07:59 Room Air 12/09/20 07:00 97.9 18 92 97.9 12/08/20 18:54 2.0 Physical Exam PHYSICAL EXAM GENERAL: Alert, oriented x 3 male, in no acute distress. HEENT: Normocephalic, atraumatic. Anicteric. NECK: Supple, no JVD. LUNGS: Clear except for decreased breath sounds at the bases. HEART: S1, S2, systolic murmur present. Pacemaker site looks okay. PPM incision site dry scab no redness no fluctuance ABDOMEN: Soft, nontender, nondistended. EXTREMITIES: Right knee prepatellar swelling present. Erythema. Warmth. post surgery dressing not opened No cyanosis or clubbing DERMATOLOGIC: Warm, dry, no generalized rash. NEUROLOGIC: Alert and oriented x 3, grossly nonfocal. PSYCHIATRIC: Calm and cooperative. Labs Lab Laboratory Tests Test 12/08/20 13:06 12/09/20 06:35 Prothrombin Time 15.1 SEC (11.7-14.0) Prothromb Time International Ratio 1.2 (0.8-1.1) Sodium Level 131 mmol/L (136-145) Potassium Level 3.9 mmol/L (3.5-5.1) Chloride Level 93 mmol/L (98-107) Carbon Dioxide Level 28 mmol/L (21-32) Anion Gap 10 (6-14) Blood Urea Nitrogen 67 mg/dL (8-26) Creatinine 2.8 mg/dL (0.7-1.3) Estimated GFR (Cockcroft-Gault) 21.7 Glucose Level 96 mg/dL (70-99) Calcium Level 6.3 mg/dL (8.5-10.1) Creatine Kinase 29 U/L (39-308) Micro BC from 12/05 negative SOO neg Objective Assessment Persistent methicillin sensitive staph aureus bacteremia 4 of 4 bottles present on admission 11/28/2020, November 30 and December 02 History of PPM.H/O recent battery exchange. Sepsis from Gram-positive bacteremia. Improving Leukocytosis and bandemia. Improving Rt Knee pain and swelling status post synovial aspirate WBC 30,000 RBC 66,000 -Cultures staph aureus Generalized weakness. Improving History of fall. Hypokalemia.Hyponatremia. History of atrial fibrillation. Hypertension. Coagulopathy last INR of 15 GUERO Plan Plan of Care Continue nafcillin Follow-up repeat blood cultures from 12/05 so far negative Follow-up synovial fluid cultures positive for staph aureus Monitor labs and cultures. Continue supportive care. Maintain aspiration precaution Discussed with Dr. Garrison Discussed with nursing staff pt/ot PICC line can be placed now and patient is going to need long-term IV antibiotics And follow-up with us in about 3 weeks Weekly CBC BUN/creatinine sed rate CRP JYOTI BALLESTEROS MD Dec 09, 2020 09:11
[2020-12-09] MEDS: DAPTOmycin (GENERIC) IVPB 500 MG in IV NORMAL SALINE 50ML 50 ML IV SCH (09:48)
--- NOTE | 2020-12-09 10:42 | PDOC ---
Renal-Progress Notes Subjective Notes Notes NO NEW COMPLAINTS History of Present Illness Hx of present illness STABLE Vitals Vitals Vital Signs Date Time Temp Pulse Resp B/P (MAP) Pulse Ox O2 Delivery O2 Flow Rate FiO2 12/09/20 10:01 Room Air 12/09/20 08:05 61 134/48 12/09/20 07:00 97.9 18 92 97.9 12/08/20 18:54 2.0 Weight Weight [ ] I.O. Intake and Output Intake and Output 12/09/20 07:00 Intake Total 660 ml Output Total 600 ml Balance 60 ml Intake Oral 360 ml IV Total 300 ml Output Urine Total 600 ml # Bowel Movements 2 Labs Labs Laboratory Tests Test 12/08/20 13:06 12/09/20 06:35 Prothrombin Time 15.1 SEC (11.7-14.0) Prothromb Time International Ratio 1.2 (0.8-1.1) Sodium Level 131 mmol/L (136-145) Potassium Level 3.9 mmol/L (3.5-5.1) Chloride Level 93 mmol/L (98-107) Carbon Dioxide Level 28 mmol/L (21-32) Anion Gap 10 (6-14) Blood Urea Nitrogen 67 mg/dL (8-26) Creatinine 2.8 mg/dL (0.7-1.3) Estimated GFR (Cockcroft-Gault) 21.7 Glucose Level 96 mg/dL (70-99) Calcium Level 6.3 mg/dL (8.5-10.1) Creatine Kinase 29 U/L (39-308) Micro Micro Microbiology 12/07/20 Urine Culture - Final, Complete 12/05/20 Blood Culture - Preliminary, Resulted NO GROWTH AFTER 4 DAYS 12/04/20 Gram Stain - Final, Resulted 12/04/20 Aerobic and Anaerobic Culture - Preliminary, Resulted Review of Systems Constitutional: yes: alert, oriented Ears/Nose/Throat: Yes: no symptom reported Eyes: Yes: no symptom reported Pulmonary: Yes no symptom reported Cardiovascular: Yes edema Gastrointestional: Yes: no symptom reported Genitourinary: Yes: no symptom reported Musculoskeletal: Yes: no symptom reported Skin: Yes no symptom reported Psychiatric/Neurological: Yes: no symptom reported Endocrine: Yes: no symptom reported Physical Exam General Appearance: no apparent distress Skin: warm Respiratory: decreased breath sounds Heart: S1S2 Abdomen: soft, bowel sounds present Genitourinary: bladder flat Extremities: edema Neurology: alert, oriented, follow commands Musculoskeletal: Osteoarthritis Assessment Assessment IMP ECVD HYPOTENSION-BETTER GUERO DUE TO ABOVE-CR STABLE AT 2.8 LAST COUPLE DAYS SEPSIS RIGHT KNEE EFFUSION SSS WITH PPM-RECENT BATTERY EXCHANGE CHRONIC AFIB ANTICOAGULATION PLAN HOLD LASIX AND KCL HYDRATION OFF ENC PO EXPECT IMPROVEMENT IN RENAL FXN WITH IMPROVED HEMODYNAMICS NO CLEAR EVIDENCE OF IN CR STABLE AT 2.8 AND NON OLIGURIC D/W ATTENDING ALFREDO EASTON MD Dec 09, 2020 10:42
--- NOTE | 2020-12-09 10:49 | NUR ---
SW following. Discussed with RN, pt needing PICC line for tank terminal gauger IV abx. Awaiting confirmation of when pt will be ready for discharge to [facility]. May need to reauth. BLANCA will continue to follow.
[2020-12-09 11:00] VITALS: BP 104/49
--- NOTE | 2020-12-09 11:59 | PDOC ---
CARDIO Progress Notes Date and Time Date of Service 12/09/2020 Time of Evaluation 1010 Subjective Subjective: No Chest Pain, No shortness of breath, No Palpitations Vitals Vitals Vital Signs Date Time Temp Pulse Resp B/P (MAP) Pulse Ox O2 Delivery O2 Flow Rate FiO2 12/09/20 10:01 Room Air 12/09/20 08:05 61 134/48 12/09/20 07:00 97.9 18 92 97.9 12/08/20 18:54 2.0 Weight Weight [ ] Input and Output Intake and Output Intake and Output 12/09/20 07:00 Intake Total 660 ml Output Total 600 ml Balance 60 ml Intake Oral 360 ml IV Total 300 ml Output Urine Total 600 ml # Bowel Movements 2 Laboratory Labs Laboratory Tests Test 12/08/20 13:06 12/09/20 06:35 Prothrombin Time 15.1 SEC (11.7-14.0) Prothromb Time International Ratio 1.2 (0.8-1.1) Sodium Level 131 mmol/L (136-145) Potassium Level 3.9 mmol/L (3.5-5.1) Chloride Level 93 mmol/L (98-107) Carbon Dioxide Level 28 mmol/L (21-32) Anion Gap 10 (6-14) Blood Urea Nitrogen 67 mg/dL (8-26) Creatinine 2.8 mg/dL (0.7-1.3) Estimated GFR (Cockcroft-Gault) 21.7 Glucose Level 96 mg/dL (70-99) Calcium Level 6.3 mg/dL (8.5-10.1) Creatine Kinase 29 U/L (39-308) Microbiology Micro Microbiology 12/07/20 Urine Culture - Final, Complete 12/05/20 Blood Culture - Preliminary, Resulted NO GROWTH AFTER 4 DAYS 12/04/20 Gram Stain - Final, Resulted 12/04/20 Aerobic and Anaerobic Culture - Preliminary, Resulted Review of Systems Constitutional: yes: alert, oriented Ears/Nose/Throat: Yes: no symptom reported Eyes: Yes: no symptom reported Pulmonary: Yes no symptom reported Cardiovascular: Yes edema Gastrointestional: Yes: no symptom reported Genitourinary: Yes: no symptom reported Musculoskeletal: Yes: no symptom reported Skin: Yes no symptom reported Psychiatric/Neurological: Yes: no symptom reported Endocrine: Yes: no symptom reported Physical Exam HEENT: Neck Supple W Full Motion Chest: Symmetric LUNGS: Other (diminished bases) Heart: other (V paced with underlying AFIB) Abdomen: Soft N/T Extremities: Other (right knee effusion, 3+ RLE edema and 2+ LLE edema pitting) Neurology: alert, oriented, follow commands Assessment Assessment 1. Mechanical fall with right knee effusion: mainly due to weakness. S/P I & D POD#3 2. Sepsis with bacteremia (MRSA): no intracardiac vegetation per SOO. EF and WM nml 3. S/P PPM with generator change: 11/01/2020.[employer]tr[employer], functioning normally 4. Hx of SSS 5. Chronic AFIB: rate controlled with intermittent pacing 6. HTN: controlled 7. HLP: on statin 8. CAD: clinically stable 9. Coagulopathy with coumadin: antibiotic is contributing. INR now at 2.1 with recent Vit K 10. Acute on chronic diastolic CHF: appears compensated 11. Postoperative anemia 12. GUERO: ATN? nephrology following. Cr^2.8 Recommendations 1. INR 2.1, Will place on low dose eliquis when clear with hematology and ortho 2. Continue ASA and secondary prevention measures. 3. Avoid nephrotoxic agents.Increasing wt but no HF decompensation. Will defer diuretics to nephrology 4. Continue Abx per ID 5. Toprol for rate control 6. Supportive care. Could consider RHC Justicifation of Admission Dx: Justifications for Admission: Justification of Admission Dx: N/A MINERVA QUINONEZ HR BUSINESS PARTNER CONSULTANT Dec 09, 2020 11:59
[2020-12-09 15:00] VITALS: BP 141/65
[2020-12-09 19:00] VITALS: BP 120/49
[2020-12-09] MEDS: ATORVASTATIN CALCIUM 20 MG TABLET PO SCH (20:17)
[2020-12-09] MEDS: ACETAMINOPHEN 325 MG TABLET. PO SCH (20:17)
[2020-12-09] MEDS: ZOLPIDEM 5 MG TABLET. PO PRN (20:17)
[2020-12-09 23:00] VITALS: BP 129/55
[2020-12-10] MEDS: NAFCILLIN 2 GM in IV DEXTROSE 5% 100ML 100 ML IV SCH ×6 (00:35→21:20)
[2020-12-10 03:00] VITALS: BP 111/53
[2020-12-10 07:00] VITALS: BP 119/52
--- NOTE | 2020-12-10 07:02 | PN ---
DATE: 12/09/2020 DAILY PROGRESS NOTE LOCATION: He is in room 514. SUBJECTIVE: This 85-year-old male remains hospitalized with MSSA sepsis from a right knee source. He feels better on a daily basis. OBJECTIVE: VITAL SIGNS: Stable. He is afebrile. Blood pressures remain on the low side, but are elevating somewhat. GENERAL: He is asymptomatic. CHEST: Clear. HEART: Regular. ABDOMEN: Benign. EXTREMITIES: Right knee dressed. LABORATORY DATA: Labs were checked this morning. Discussed with renal, who felt this was hypotension in nature and felt that there would be recovery. Blood cultures from the remain negative now 4 days. ASSESSMENT: 1. Methicillin-resistant Staphylococcus aureus sepsis from septic right knee. 2. Coagulopathy, improving with INR 1.2 yesterday. 3. Anemia following surgery. 4. Acute kidney injury. PLAN: Continue present care. Renal ultrasound shows no specific findings. We will expect improvement. He does remain with decent urine output. He is going to need prolonged antibiotics. We will have to talk about ____ but probably a fdc at discharge. MIESHA/JAIRO DR: Danielle TID: [id number]
[2020-12-10 08:04] LABS: CALCIUM 6.3 mg/dL (8.5-10.1); GFR 20.1; POTASSIUM 3.3 mmol/L (3.5-5.1)
[2020-12-10] MEDS: DOCUSATE SODIUM 100 MG CAPSULE. PO SCH ×2 (09:00→21:00)
[2020-12-10] MEDS: ASPIRIN CHEWABLE 81 MG TABLET. PO SCH (09:06)
[2020-12-10] MEDS: METOPROLOL SUCC 24HR ER 25 MG TAB.ER.24H. PO SCH (09:07)
[2020-12-10] MEDS: LACTOBACILLUS RHAMNOSUS GG 1 CAPSULE. PO SCH ×2 (09:07→21:21)
[2020-12-10] MEDS: DAPTOmycin (GENERIC) IVPB 500 MG in IV NORMAL SALINE 50ML 50 ML IV SCH (10:43)
[2020-12-10 11:00] VITALS: BP 107/48
--- NOTE | 2020-12-10 12:58 | PDOC ---
DATE OF SERVICE DATE: 12/10/20 TIME: 12:55 SUBJECTIVE ROS Resting comfortably, No SOB at rest No N/V OBJECTIVE Vital Signs Vital Signs Date Time Temp Pulse Resp B/P (MAP) Pulse Ox O2 Delivery O2 Flow Rate FiO2 12/10/20 11:00 98.2 62 18 107/48 (67) 95 Room Air 98.2 I & 0 Intake and Output 12/10/20 07:00 Intake Total 300 ml Output Total 1000 ml Balance -700 ml Intake Oral 50 ml IV Total 250 ml Output Urine Total 1000 ml # Bowel Movements 3 PHYSICAL EXAM Physical Exam GENERAL: no acute distress. HEENT: Normocephalic, atraumatic. Anicteric. NECK: Supple, no JVD. LUNGS: decreased breath sounds at the bases, non labored . HEART: S1, S2, systolic murmur present. Pacemaker + ABDOMEN: Soft, nontender, nondistended. EXTREMITIES: Right knee prepatellar swelling present. Erythema. Warmth. post surgery dressing + DERM: no generalized rash. NEUROLOGIC: Alert and oriented x 3, grossly nonfocal. DIAGNOSIS/ASSESSMENT Assessment & Plan GUERO - ATN /Hypotension/ Sepsis - worsening renal function ? Plateau; DCed IVF (Hx of CHF) Non Oliguric . Baseline normal Cr on 11/30 Renal US unremarkable. UA no eosinophils, No casts, Cx No growth(On Abx ) . Monitor , supportive care , strict I/O . Hold OFF IVF , encourage PO intake HypoNatremia- Mild, monitor Sepsis from Gram-positive bacteremia - MSSA bacteremia History of PPM.H/O recent battery exchange. Rt Knee pain and swelling status post synovial aspirate WBC 30,000 RBC 66,000; - Cultures staph aureus History of atrial fibrillation. Hypertension- BP 's low, antihypertensives (ESTEFANY-i, Coreg, Lasix ) held COMMENT/RELEVANT DATA Meds Current Medications Medications (Trade) Dose Ordered Sig/Gia Start Time Stop Time Status Last Admin Dose Admin Acetaminophen (Tylenol) 650 mg QHS 11/29/20 21:00 12/09/20 20:17 650 MG Acetaminophen/ Hydrocodone Bitart (Lortab 10/325) 1 tab PRN Q4HRS PRN 12/05/20 20:00 12/09/20 07:59 1 TAB Acetaminophen/ Hydrocodone Bitart (Lortab 5/325) 1 tab PRN Q4HRS PRN 11/28/20 22:45 12/05/20 19:50 DC 12/05/20 17:38 1 TAB Aspirin (Aspirin Chewable) 81 mg DAILY 11/30/20 09:00 12/10/20 09:06 81 MG Atorvastatin Calcium (Lipitor) 20 mg QHS 11/29/20 21:00 12/09/20 20:17 20 MG Azithromycin 250 ml @ 250 mls/hr DAILY ONCE 11/30/20 09:00 11/30/20 09:59 UNV Azithromycin 500 mg/Sodium Chloride 250 ml @ 250 mls/hr Q24H 11/29/20 15:00 11/29/20 13:50 DC Benzocaine (Hurricaine One) 1 spray STK-MED ONCE 12/05/20 10:06 12/05/20 10:07 DC Carvedilol (Coreg) 3.125 mg BIDWMEALS 12/01/20 12:00 12/05/20 20:11 DC 12/03/20 16:39 3.125 MG Ceftriaxone Sodium (Rocephin) 2 gm Q24H 11/29/20 14:00 12/01/20 09:19 DC 11/30/20 13:21 2 GM Daptomycin 500 mg/ Sodium Chloride 50 ml @ 100 mls/hr Q24H 12/05/20 10:00 12/10/20 10:43 100 MLS/HR Daptomycin 580 mg/ Sodium Chloride 50 ml @ 100 mls/hr Q24H 12/01/20 07:30 12/01/20 09:19 DC 12/01/20 08:52 100 MLS/HR Dexamethasone Sodium Phosphate (Decadron) 4 mg STK-MED ONCE 12/04/20 11:26 12/04/20 11:26 DC Docusate Sodium (Colace) 100 mg BID 12/03/20 21:00 12/09/20 08:00 100 MG Fentanyl Citrate (Fentanyl 2ml Vial) 100 mcg STK-MED ONCE 12/04/20 11:26 12/04/20 11:26 DC Furosemide (Lasix) 40 mg DAILY 12/01/20 12:00 12/07/20 14:46 DC 12/07/20 08:28 40 MG Hydromorphone HCl (Dilaudid) 0.5 mg PRN Q10MIN PRN 12/04/20 09:30 12/05/20 09:29 DC Influenza Virus Vaccine Quadrival (Flulaval Quad [id number] Syringe) 0.5 ml ONCE ONCE 11/29/20 09:00 11/29/20 09:01 DC 11/29/20 10:06 0.5 ML Lactobacillus Rhamnosus (Culturelle) 1 cap BID 11/29/20 21:00 12/10/20 09:07 1 CAP Lidocaine HCl (Lidocaine 1% 20ml Vial) 10 ml 1X ONCE 12/01/20 16:00 12/01/20 16:01 DC Lidocaine HCl (Lidocaine Pf 2% Vial) 5 ml STK-MED ONCE 12/04/20 10:43 12/04/20 10:43 DC Lidocaine HCl (Viscous Lidocaine) 15 ml STK-MED ONCE 12/05/20 10:06 12/05/20 10:06 DC Lidocaine HCl (Xylocaine 2% Topical 30gm Tube) 30 hiro STK-MED ONCE 12/05/20 10:06 12/05/20 10:06 DC Metoprolol Succinate (Toprol Xl) 25 mg DAILY 12/09/20 09:00 12/10/20 09:07 25 MG Morphine Sulfate (Morphine Sulfate) 1 mg PRN Q10MIN PRN 12/04/20 09:30 12/05/20 09:29 DC Nafcillin Sodium 2 gm/Dextrose 100 ml @ 200 mls/hr Q4HRS 12/01/20 10:00 12/10/20 12:26 200 MLS/HR Ondansetron HCl (Zofran) 4 mg STK-MED ONCE 12/04/20 11:26 12/04/20 11:26 DC Phenylephrine HCl (PHENYLEPHRINE in 0.9% NACL PF) 1 mg STK-MED ONCE 12/04/20 10:43 12/04/20 10:43 DC Phytonadione (Vitamin K Ampule) 10 mg 1X ONCE 12/03/20 11:00 12/03/20 11:01 DC 12/03/20 11:17 10 MG Polyethylene Glycol (miraLAX PACKET) 17 gm PRN DAILY PRN 12/03/20 19:00 12/06/20 09:16 17 GM Potassium Chloride/Water 100 ml @ 50 mls/hr 1X ONCE 11/28/20 14:45 11/28/20 16:44 DC 11/28/20 16:20 50 MLS/HR Potassium Chloride (Klor-Con) 20 meq 1X ONCE 12/01/20 11:15 12/01/20 11:27 DC 12/01/20 12:12 20 MEQ Prochlorperazine Edisylate (Compazine) 5 mg PACU PRN PRN 12/04/20 09:30 12/05/20 09:29 DC Propofol (Diprivan) 200 mg STK-MED ONCE 12/05/20 09:29 12/05/20 09:30 DC Ringer's Solution 1,000 ml @ 30 mls/hr Q24H 12/04/20 09:30 12/04/20 21:29 DC Sevoflurane (Ultane) 60 ml STK-MED ONCE 12/04/20 11:14 12/04/20 11:14 DC Sodium Chloride 1,000 ml @ 100 mls/hr 1X ONCE 12/07/20 11:45 12/08/20 10:55 DC 12/07/20 13:24 100 MLS/HR Sodium Chloride (Saline Mist Nasal) 1 hiro PRN Q1HR PRN 12/02/20 20:45 12/03/20 00:46 1 HIRO Warfarin Sodium (Coumadin) 3.75 mg DAILY 11/30/20 09:00 UNV Zolpidem Tartrate (Ambien) 5 mg PRN QHS PRN 12/05/20 20:00 12/09/20 20:17 5 MG Lab Laboratory Tests Test 12/10/20 05:50 Sodium Level 131 mmol/L (136-145) Potassium Level 3.3 mmol/L (3.5-5.1) Chloride Level 93 mmol/L (98-107) Carbon Dioxide Level 29 mmol/L (21-32) Anion Gap 9 (6-14) Blood Urea Nitrogen 67 mg/dL (8-26) Creatinine 3.0 mg/dL (0.7-1.3) Estimated GFR (Cockcroft-Gault) 20.1 Glucose Level 99 mg/dL (70-99) Calcium Level 6.3 mg/dL (8.5-10.1) Results All relevant outside records, renal labs, imaging studies, telemetry/EKG's were reviewed. Justicifation of Admission Dx: Justifications for Admission: Justification of Admission Dx: N/A MERLE QUIROZ MD Dec 10, 2020 12:58
--- NOTE | 2020-12-10 13:40 | PDOC ---
CARDIOLOGY PROGRESS NOTE SUBJECTIVE: He is having some buttock pain today. No dyspnea. No angina. He still has right knee pain OBJECTIVE: Vital Signs/I&O: Vital Signs Date Time Temp Pulse Resp B/P (MAP) Pulse Ox O2 Delivery O2 Flow Rate FiO2 12/10/20 11:00 98.2 62 18 107/48 (67) 95 Room Air 98.2 I & O 12/09/20 12/09/20 12/10/20 15:00 23:00 07:00 Intake Total 250 ml 50 ml Output Total 400 ml 400 ml 200 ml Balance -150 ml -400 ml -150 ml Objective: GENERAL: Alert, oriented x 3 male, in no acute distress. HEENT: Normocephalic, atraumatic. Anicteric. NECK: Supple, no JVD. LUNGS: Clear except for decreased breath sounds at the bases. HEART: S1, S2, systolic murmur present. Pacemaker site looks okay. PPM incision site dry scab no redness no fluctuance ABDOMEN: Soft, nontender, nondistended. EXTREMITIES: Right knee prepatellar swelling present. Erythema. Warmth. post surgery dressing not opened No cyanosis or clubbing DERMATOLOGIC: Warm, dry, no generalized rash. NEUROLOGIC: Alert and oriented x 3, grossly nonfocal. PSYCHIATRIC: Calm and cooperative. DIAGNOSTIC TESTING: Labs: Laboratory Tests 12/10/20 05:50 Laboratory Tests Test 12/10/20 05:50 Sodium Level 131 mmol/L (136-145) L Potassium Level 3.3 mmol/L (3.5-5.1) L Chloride Level 93 mmol/L (98-107) L Carbon Dioxide Level 29 mmol/L (21-32) Anion Gap 9 (6-14) Blood Urea Nitrogen 67 mg/dL (8-26) H Creatinine 3.0 mg/dL (0.7-1.3) H Estimated GFR (Cockcroft-Gault) 20.1 Glucose Level 99 mg/dL (70-99) Calcium Level 6.3 mg/dL (8.5-10.1) L ASSESSMENT: 1. Mechanical fall with right knee effusion: mainly due to weakness. S/P I & D 2. Sepsis with bacteremia (MRSA): no intracardiac vegetation per SOO. EF and WM nml 3. S/P PPM with generator change: 11/01/2020.[employer], functioning normally 4. Hx of SSS 5. Chronic AFIB: rate controlled with intermittent pacing 6. HTN: controlled 7. HLP: on statin 8. CAD: clinically stable 9. Coagulopathy with coumadin: antibiotic is contributing. INR now at 2.1 with recent Vit K 10. Acute on chronic diastolic CHF: appears compensated 11. Postoperative anemia 12. GUERO: ATN? nephrology following. PLAN: 1. Continue Toprol XL, ASA and Atorvastatin 2. Will defer diuretics for now given that his resp status is stable. 3. Echo wnl. Supportive care for now. Justicifation of Admission Dx: Justifications for Admission: Justification of Admission Dx: N/A ALAN ZURITA MD Dec 10, 2020 13:40
[2020-12-10 15:00] VITALS: BP 134/53
--- NOTE | 2020-12-10 17:58 | PN ---
DATE: 12/10/2020 DAILY PROGRESS NOTE LOCATION: He is in room 514. SUBJECTIVE: This 85-year-old male remains hospitalized with MSSA sepsis from a septic right knee. He states that he feels much better today; however, he has had multiple bowel movements throughout the day and would like to be able to get up to the stool. OBJECTIVE: VITAL SIGNS: Stable. He is afebrile. Blood pressures are improving. CHEST: Clear. HEART: Regular. ABDOMEN: Benign. EXTREMITIES: Right knee dressed. LABORATORY DATA: Creatinine is up to 3 this morning and renal is on the case. Blood cultures remain negative from the . IMPRESSION: 1. Methicillin susceptible Staphylococcus aureus sepsis with right knee source. 2. Coagulopathy, improved. 3. Anemia following surgery. 4. Acute kidney injury with renal following. PLAN: Continue present care. He needs more mobilization and discussed with nursing getting him up to the stool. The patient has not had therapy in a few days and will need this. He is going to need prolonged antibiotics, had some sort of setting at discharge. BEST/SAGE DR: Danielle TID: [phone]
[2020-12-10] MEDS ORDERED: POTASSIUM CHLORIDE 20 MEQ TABLET.ER. PO ONE (19:00)
[2020-12-10 19:51] VITALS: BP 108/46
[2020-12-10] MEDS: ATORVASTATIN CALCIUM 20 MG TABLET PO SCH (21:21)
[2020-12-10] MEDS: ACETAMINOPHEN 325 MG TABLET. PO SCH (21:22)
[2020-12-10] MEDS: ZOLPIDEM 5 MG TABLET. PO PRN (21:26)
[2020-12-10 23:40] VITALS: BP 95/44
[2020-12-11] MEDS: NAFCILLIN 2 GM in IV DEXTROSE 5% 100ML 100 ML IV SCH ×6 (01:11→20:48)
[2020-12-11 03:17] VITALS: BP 94/41
[2020-12-11 07:00] VITALS: BP 129/51
[2020-12-11 08:05] LABS: CALCIUM 6.2 mg/dL (8.5-10.1); CREATININE 3.8 mg/dL (0.7-1.3); GFR 15.3; POTASSIUM 3.7 mmol/L (3.5-5.1)
[2020-12-11] MEDS: DOCUSATE SODIUM 100 MG CAPSULE. PO SCH ×2 (09:00→20:50)
[2020-12-11] MEDS: ASPIRIN CHEWABLE 81 MG TABLET. PO SCH (10:46)
[2020-12-11] MEDS: LACTOBACILLUS RHAMNOSUS GG 1 CAPSULE. PO SCH ×2 (10:46→20:50)
[2020-12-11] MEDS: DAPTOmycin (GENERIC) IVPB 500 MG in IV NORMAL SALINE 50ML 50 ML IV SCH (10:46)
[2020-12-11] MEDS: METOPROLOL SUCC 24HR ER 25 MG TAB.ER.24H. PO SCH (10:47)
[2020-12-11 11:00] VITALS: BP 105/52
--- NOTE | 2020-12-11 11:23 | PN ---
DATE: 12/11/2020 LOCATION: He is in room 514. SUBJECTIVE: This 85-year-old male remains hospitalized with MSSA sepsis and bacteremia due to infected right knee. He feels like he is feeling better on a daily basis. Still complains of multiple small bowel movements during the day and would entertain a rectal tube as he is afraid to even try to pass gas. OBJECTIVE: VITAL SIGNS: Stable. He is afebrile. CHEST: Clear. HEART: Regular. ABDOMEN: Benign. EXTREMITIES: Right knee appears to be healing okay after surgery. He does admit yesterday when he was doing more moving the knee, there was some old looking blood that leaked out, which I told him as I do not think it is necessarily a problem. Blood cultures remain negative from the and creatinine continues to increase at 3.8 this morning. ASSESSMENT: 1. Methicillin-susceptible Staphylococcus aureus sepsis with right knee source. 2. Coagulopathy, resolved. 3. Anemia following surgery, stable. 4. Acute kidney injury with Renal following. PLAN: Continue present care. We will offer a rectal tube p.r.n. The therapy needs to be more aggressive in getting him up. I am going to check a stool for C. diff, although it sounds like the amounts of stool he is having are not necessary voluminous, but more just the frequency. No mass. SERA DR: Danielle TID: [id number]
--- NOTE | 2020-12-11 12:16 | PDOC ---
DATE OF SERVICE DATE: 12/11/20 TIME: 12:16 SUBJECTIVE ROS Resting comfortably, No SOB at rest No N/V OBJECTIVE Vital Signs Vital Signs Date Time Temp Pulse Resp B/P (MAP) Pulse Ox O2 Delivery O2 Flow Rate FiO2 12/11/20 11:00 98.2 63 20 105/52 (69) 93 Room Air 98.2 I & 0 Intake and Output 12/11/20 07:00 Intake Total 330 ml Output Total 650 ml Balance -320 ml Intake Oral 330 ml Output Urine Total 650 ml # Voids 1 # Bowel Movements 2 PHYSICAL EXAM Physical Exam GENERAL: no acute distress. HEENT: Normocephalic, atraumatic. Anicteric. NECK: Supple, no JVD. LUNGS: decreased breath sounds at the bases, non labored . HEART: S1, S2, systolic murmur present. Pacemaker + ABDOMEN: Soft, nontender, nondistended. EXTREMITIES: Right knee prepatellar swelling present. Erythema. Warmth. post surgery dressing + DERM: no generalized rash. NEUROLOGIC: Alert and oriented x 3, grossly nonfocal. DIAGNOSIS/ASSESSMENT DIAGNOSIS/ASSESSMENT Assessment & Plan GUERO - ATN /Hypotension/ Sepsis - worsening renal function, Non Oliguric , if no improvement probably will need dialysis tomorrow and Temp HDC . Dw patient and nursing Renal US unremarkable. Baseline normal Cr on 11/30 ; UA no eosinophils, No casts, Cx No growth . Monitor , supportive care , strict I/O (? accuracy) . encourage PO intake HypoNatremia- Mild, monitor Sepsis from Gram-positive bacteremia - MSSA bacteremia History of PPM.H/O recent battery exchange. Rt Knee pain and swelling status post synovial aspirate WBC 30,000 RBC 66,000; - Cultures staph aureus History of atrial fibrillation. Hypertension- BP 's low, antihypertensives (ESTEFANY-i, Coreg, Lasix ) held COMMENT/RELEVANT DATA Meds Current Medications Medications (Trade) Dose Ordered Sig/Gia Start Time Stop Time Status Last Admin Dose Admin Acetaminophen (Tylenol) 650 mg QHS 11/29/20 21:00 12/10/20 21:22 650 MG Acetaminophen/ Hydrocodone Bitart (Lortab 10/325) 1 tab PRN Q4HRS PRN 12/05/20 20:00 12/09/20 07:59 1 TAB Acetaminophen/ Hydrocodone Bitart (Lortab 5/325) 1 tab PRN Q4HRS PRN 11/28/20 22:45 12/05/20 19:50 DC 12/05/20 17:38 1 TAB Aspirin (Aspirin Chewable) 81 mg DAILY 11/30/20 09:00 12/11/20 10:46 81 MG Atorvastatin Calcium (Lipitor) 20 mg QHS 11/29/20 21:00 12/10/20 21:21 20 MG Azithromycin 250 ml @ 250 mls/hr DAILY ONCE 11/30/20 09:00 11/30/20 09:59 UNV Azithromycin 500 mg/Sodium Chloride 250 ml @ 250 mls/hr Q24H 11/29/20 15:00 11/29/20 13:50 DC Benzocaine (Hurricaine One) 1 spray STK-MED ONCE 12/05/20 10:06 12/05/20 10:07 DC Carvedilol (Coreg) 3.125 mg BIDWMEALS 12/01/20 12:00 12/05/20 20:11 DC 12/03/20 16:39 3.125 MG Ceftriaxone Sodium (Rocephin) 2 gm Q24H 11/29/20 14:00 12/01/20 09:19 DC 11/30/20 13:21 2 GM Daptomycin 500 mg/ Sodium Chloride 50 ml @ 100 mls/hr Q24H 12/05/20 10:00 12/11/20 10:46 100 MLS/HR Daptomycin 580 mg/ Sodium Chloride 50 ml @ 100 mls/hr Q24H 12/01/20 07:30 12/01/20 09:19 DC 12/01/20 08:52 100 MLS/HR Dexamethasone Sodium Phosphate (Decadron) 4 mg STK-MED ONCE 12/04/20 11:26 12/04/20 11:26 DC Docusate Sodium (Colace) 100 mg BID 12/03/20 21:00 12/09/20 08:00 100 MG Fentanyl Citrate (Fentanyl 2ml Vial) 100 mcg STK-MED ONCE 12/04/20 11:26 12/04/20 11:26 DC Furosemide (Lasix) 40 mg DAILY 12/01/20 12:00 12/07/20 14:46 DC 12/07/20 08:28 40 MG Hydromorphone HCl (Dilaudid) 0.5 mg PRN Q10MIN PRN 12/04/20 09:30 12/05/20 09:29 DC Influenza Virus Vaccine Quadrival (Flulaval Quad [id number] Syringe) 0.5 ml ONCE ONCE 11/29/20 09:00 11/29/20 09:01 DC 11/29/20 10:06 0.5 ML Lactobacillus Rhamnosus (Culturelle) 1 cap BID 11/29/20 21:00 12/11/20 10:46 1 CAP Lidocaine HCl (Lidocaine 1% 20ml Vial) 10 ml 1X ONCE 12/01/20 16:00 12/01/20 16:01 DC Lidocaine HCl (Lidocaine Pf 2% Vial) 5 ml STK-MED ONCE 12/04/20 10:43 12/04/20 10:43 DC Lidocaine HCl (Viscous Lidocaine) 15 ml STK-MED ONCE 12/05/20 10:06 12/05/20 10:06 DC Lidocaine HCl (Xylocaine 2% Topical 30gm Tube) 30 hiro STK-MED ONCE 12/05/20 10:06 12/05/20 10:06 DC Metoprolol Succinate (Toprol Xl) 25 mg DAILY 12/09/20 09:00 12/11/20 10:47 25 MG Morphine Sulfate (Morphine Sulfate) 1 mg PRN Q10MIN PRN 12/04/20 09:30 12/05/20 09:29 DC Nafcillin Sodium 2 gm/Dextrose 100 ml @ 200 mls/hr Q4HRS 12/01/20 10:00 12/11/20 09:59 200 MLS/HR Ondansetron HCl (Zofran) 4 mg STK-MED ONCE 12/04/20 11:26 12/04/20 11:26 DC Phenylephrine HCl (PHENYLEPHRINE in 0.9% NACL PF) 1 mg STK-MED ONCE 12/04/20 10:43 12/04/20 10:43 DC Phytonadione (Vitamin K Ampule) 10 mg 1X ONCE 12/03/20 11:00 12/03/20 11:01 DC 12/03/20 11:17 10 MG Polyethylene Glycol (miraLAX PACKET) 17 gm PRN DAILY PRN 12/03/20 19:00 12/06/20 09:16 17 GM Potassium Chloride/Water 100 ml @ 50 mls/hr 1X ONCE 11/28/20 14:45 11/28/20 16:44 DC 11/28/20 16:20 50 MLS/HR Potassium Chloride (Klor-Con) 20 meq 1X ONCE 12/10/20 19:00 12/10/20 19:01 DC 12/10/20 18:52 20 MEQ Prochlorperazine Edisylate (Compazine) 5 mg PACU PRN PRN 12/04/20 09:30 12/05/20 09:29 DC Propofol (Diprivan) 200 mg STK-MED ONCE 12/05/20 09:29 12/05/20 09:30 DC Ringer's Solution 1,000 ml @ 30 mls/hr Q24H 12/04/20 09:30 12/04/20 21:29 DC Sevoflurane (Ultane) 60 ml STK-MED ONCE 12/04/20 11:14 12/04/20 11:14 DC Sodium Chloride 1,000 ml @ 100 mls/hr 1X ONCE 12/07/20 11:45 12/08/20 10:55 DC 12/07/20 13:24 100 MLS/HR Sodium Chloride (Saline Mist Nasal) 1 hiro PRN Q1HR PRN 12/02/20 20:45 12/03/20 00:46 1 HIRO Warfarin Sodium (Coumadin) 3.75 mg DAILY 11/30/20 09:00 UNV Zolpidem Tartrate (Ambien) 5 mg PRN QHS PRN 12/05/20 20:00 12/10/20 21:26 5 MG Lab Laboratory Tests Test 12/11/20 06:35 Sodium Level 131 mmol/L (136-145) Potassium Level 3.7 mmol/L (3.5-5.1) Chloride Level 93 mmol/L (98-107) Carbon Dioxide Level 25 mmol/L (21-32) Anion Gap 13 (6-14) Blood Urea Nitrogen 75 mg/dL (8-26) Creatinine 3.8 mg/dL (0.7-1.3) Estimated GFR (Cockcroft-Gault) 15.3 Glucose Level 102 mg/dL (70-99) Calcium Level 6.2 mg/dL (8.5-10.1) Results All relevant outside records, renal labs, imaging studies, telemetry/EKG's were reviewed. Justicifation of Admission Dx: Justifications for Admission: Justification of Admission Dx: N/A MERLE QUIROZ MD Dec 11, 2020 12:16
--- NOTE | 2020-12-11 12:38 | PDOC ---
CARDIOLOGY PROGRESS NOTE SUBJECTIVE: No new events overnight. Denies any chest pain. No dyspnea. No orthopnea. He does have whole body aches and pains from lying in bed. He is eating well. OBJECTIVE: Vital Signs/I&O: Vital Signs Date Time Temp Pulse Resp B/P (MAP) Pulse Ox O2 Delivery O2 Flow Rate FiO2 12/11/20 11:00 98.2 63 20 105/52 (69) 93 Room Air 98.2 I & O 12/10/20 12/10/20 12/11/20 15:00 23:00 07:00 Intake Total 120 ml 120 ml 90 ml Output Total 650 ml Balance 120 ml 120 ml -560 ml Objective: GEN.: No apparent distress. Alert and oriented. HEENT: Head is normocephalic, atraumatic NECK: Supple. LUNGS: Clear to auscultation. HEART: RRR, S1, S2 present. Peripheral pulses intact ABDOMEN: Soft, nontender. Positive bowel sounds. EXTREMITIES: Without any cyanosis. No edema. NEUROLOGIC: Normal speech, normal tone PSYCHIATRIC: Normal affect, normal mood. SKIN: R knee incision is notable for swelling/ecchymosis but no erythema. CURRENT MEDICATIONS: ASA. Toprol and Atorvastatin. DIAGNOSTIC TESTING: Labs/meds reviewed. ASSESSMENT: 1. MSSA bacteremia 2. GUERO 3. CAD 4. Chronic diastolic HF. 5. Dyslipidemia. 6. Failure to thrive. PLAN: 1. Continue present meds. Hold further anticoagulation given that he is in SR> 2. Stable from a CV perspective, no signs of heart failure or angina. 3. Supportive care and await renal improvement. We will follow along closely. Justicifation of Admission Dx: Justifications for Admission: Justification of Admission Dx: N/A ALAN ZURITA MD Dec 11, 2020 12:38
[2020-12-11 15:33] VITALS: BP 108/58
[2020-12-11 19:00] VITALS: BP 101/46
[2020-12-11] MEDS: ACETAMINOPHEN 325 MG TABLET. PO SCH (20:50)
[2020-12-11] MEDS: ATORVASTATIN CALCIUM 20 MG TABLET PO SCH (20:50)
[2020-12-11 23:24] VITALS: BP 95/39
[2020-12-12] MEDS: NAFCILLIN 2 GM in IV DEXTROSE 5% 100ML 100 ML IV SCH ×6 (00:49→20:43)
[2020-12-12 03:14] VITALS: BP 98/46
[2020-12-12] MEDS: HYDROcodone/APAP 10/325 1 TAB TABLET PO PRN (03:34)
[2020-12-12 06:37] LABS: ALBUMIN 0.8 g/dL (3.4-5.0); CALCIUM 6.3 mg/dL (8.5-10.1); CREATININE 4.2 mg/dL (0.7-1.3); GFR 13.6
[2020-12-12 07:00] VITALS: BP 111/47
[2020-12-12] MEDS: DOCUSATE SODIUM 100 MG CAPSULE. PO SCH ×2 (09:00→20:46)
[2020-12-12] MEDS: ASPIRIN CHEWABLE 81 MG TABLET. PO SCH (09:00)
[2020-12-12] MEDS: METOPROLOL SUCC 24HR ER 25 MG TAB.ER.24H. PO SCH (09:00)
[2020-12-12] MEDS: LACTOBACILLUS RHAMNOSUS GG 1 CAPSULE. PO SCH ×2 (09:00→20:45)
--- NOTE | 2020-12-12 09:54 | PDOC ---
DATE OF SERVICE DATE: 12/12/20 TIME: 09:50 SUBJECTIVE ROS Resting comfortably, No SOB at rest ,No N/V OBJECTIVE Vital Signs Vital Signs Date Time Temp Pulse Resp B/P (MAP) Pulse Ox O2 Delivery O2 Flow Rate FiO2 12/12/20 07:00 97.6 60 18 111/47 (68) 96 Room Air 97.6 12/12/20 04:46 2.0 I & 0 Intake and Output 12/12/20 07:00 Intake Total 830 ml Balance 830 ml Intake Oral 530 ml IV Total 300 ml PHYSICAL EXAM Physical Exam GENERAL: no acute distress. HEENT: Normocephalic, atraumatic. Anicteric. NECK: Supple, no JVD. LUNGS: decreased breath sounds at the bases, non labored . HEART: S1, S2, systolic murmur present. Pacemaker + ABDOMEN: Soft, nontender, nondistended. EXTREMITIES: post surgery dressing Rt knee + DERM: no generalized rash. NEUROLOGIC: Alert and oriented x 3, grossly nonfocal. DIAGNOSIS/ASSESSMENT Assessment & Plan GUERO - ATN 2/ 2 Hypotension/ Sepsis - worsening renal function, Non Oliguric . Dialysis today with Temp HDC . Discussed treatment plan with Jeanette Renal US unremarkable. Baseline normal Cr on 11/30 ; UA no eosinophils, No casts, Cx No growth . Monitor , supportive care , strict I/O (? accuracy) .Monitor for Renal recovery HypoNatremia- Mild, stable Sepsis from Gram-positive bacteremia - MSSA bacteremia History of PPM.H/O recent battery exchange. Rt Knee pain and swelling status post synovial aspirate WBC 30,000 RBC 66,000; - Cultures staph aureus History of atrial fibrillation. Hypertension- BP 's low, antihypertensives (ESTEFANY-i, Coreg, Lasix ) held COMMENT/RELEVANT DATA Meds Current Medications Medications (Trade) Dose Ordered Sig/Gia Start Time Stop Time Status Last Admin Dose Admin Acetaminophen (Tylenol) 650 mg QHS 11/29/20 21:00 12/11/20 20:50 650 MG Acetaminophen/ Hydrocodone Bitart (Lortab 10/325) 1 tab PRN Q4HRS PRN 12/05/20 20:00 12/12/20 03:34 1 TAB Acetaminophen/ Hydrocodone Bitart (Lortab 5/325) 1 tab PRN Q4HRS PRN 11/28/20 22:45 12/05/20 19:50 DC 12/05/20 17:38 1 TAB Aspirin (Aspirin Chewable) 81 mg DAILY 11/30/20 09:00 12/11/20 10:46 81 MG Atorvastatin Calcium (Lipitor) 20 mg QHS 11/29/20 21:00 12/11/20 20:50 20 MG Azithromycin 250 ml @ 250 mls/hr DAILY ONCE 11/30/20 09:00 11/30/20 09:59 UNV Azithromycin 500 mg/Sodium Chloride 250 ml @ 250 mls/hr Q24H 11/29/20 15:00 11/29/20 13:50 DC Benzocaine (Hurricaine One) 1 spray STK-MED ONCE 12/05/20 10:06 12/05/20 10:07 DC Carvedilol (Coreg) 3.125 mg BIDWMEALS 12/01/20 12:00 12/05/20 20:11 DC 12/03/20 16:39 3.125 MG Ceftriaxone Sodium (Rocephin) 2 gm Q24H 11/29/20 14:00 12/01/20 09:19 DC 11/30/20 13:21 2 GM Daptomycin 500 mg/ Sodium Chloride 50 ml @ 100 mls/hr Q48H 12/13/20 10:00 Daptomycin 580 mg/ Sodium Chloride 50 ml @ 100 mls/hr Q24H 12/01/20 07:30 12/01/20 09:19 DC 12/01/20 08:52 100 MLS/HR Dexamethasone Sodium Phosphate (Decadron) 4 mg STK-MED ONCE 12/04/20 11:26 12/04/20 11:26 DC Docusate Sodium (Colace) 100 mg BID 12/03/20 21:00 12/09/20 08:00 100 MG Fentanyl Citrate (Fentanyl 2ml Vial) 100 mcg STK-MED ONCE 12/04/20 11:26 12/04/20 11:26 DC Furosemide (Lasix) 40 mg DAILY 12/01/20 12:00 12/07/20 14:46 DC 12/07/20 08:28 40 MG Hydromorphone HCl (Dilaudid) 0.5 mg PRN Q10MIN PRN 12/04/20 09:30 12/05/20 09:29 DC Influenza Virus Vaccine Quadrival (Flulaval Quad [id number] Syringe) 0.5 ml ONCE ONCE 11/29/20 09:00 11/29/20 09:01 DC 11/29/20 10:06 0.5 ML Lactobacillus Rhamnosus (Culturelle) 1 cap BID 11/29/20 21:00 12/11/20 20:50 1 CAP Lidocaine HCl (Lidocaine 1% 20ml Vial) 10 ml 1X ONCE 12/01/20 16:00 12/01/20 16:01 DC Lidocaine HCl (Lidocaine Pf 2% Vial) 5 ml STK-MED ONCE 12/04/20 10:43 12/04/20 10:43 DC Lidocaine HCl (Viscous Lidocaine) 15 ml STK-MED ONCE 12/05/20 10:06 12/05/20 10:06 DC Lidocaine HCl (Xylocaine 2% Topical 30gm Tube) 30 hiro STK-MED ONCE 12/05/20 10:06 12/05/20 10:06 DC Metoprolol Succinate (Toprol Xl) 25 mg DAILY 12/09/20 09:00 12/11/20 10:47 25 MG Morphine Sulfate (Morphine Sulfate) 1 mg PRN Q10MIN PRN 12/04/20 09:30 12/05/20 09:29 DC Nafcillin Sodium 2 gm/Dextrose 100 ml @ 200 mls/hr Q4HRS 12/01/20 10:00 12/12/20 08:19 200 MLS/HR Ondansetron HCl (Zofran) 4 mg STK-MED ONCE 12/04/20 11:26 12/04/20 11:26 DC Phenylephrine HCl (PHENYLEPHRINE in 0.9% NACL PF) 1 mg STK-MED ONCE 12/04/20 10:43 12/04/20 10:43 DC Phytonadione (Vitamin K Ampule) 10 mg 1X ONCE 12/03/20 11:00 12/03/20 11:01 DC 12/03/20 11:17 10 MG Polyethylene Glycol (miraLAX PACKET) 17 gm PRN DAILY PRN 12/03/20 19:00 12/06/20 09:16 17 GM Potassium Chloride/Water 100 ml @ 50 mls/hr 1X ONCE 11/28/20 14:45 11/28/20 16:44 DC 11/28/20 16:20 50 MLS/HR Potassium Chloride (Klor-Con) 20 meq 1X ONCE 12/10/20 19:00 12/10/20 19:01 DC 12/10/20 18:52 20 MEQ Prochlorperazine Edisylate (Compazine) 5 mg PACU PRN PRN 12/04/20 09:30 12/05/20 09:29 DC Propofol (Diprivan) 200 mg STK-MED ONCE 12/05/20 09:29 12/05/20 09:30 DC Ringer's Solution 1,000 ml @ 30 mls/hr Q24H 12/04/20 09:30 12/04/20 21:29 DC Sevoflurane (Ultane) 60 ml STK-MED ONCE 12/04/20 11:14 12/04/20 11:14 DC Sodium Chloride 1,000 ml @ 100 mls/hr 1X ONCE 12/07/20 11:45 12/08/20 10:55 DC 12/07/20 13:24 100 MLS/HR Sodium Chloride (Saline Mist Nasal) 1 hiro PRN Q1HR PRN 12/02/20 20:45 12/03/20 00:46 1 HIRO Warfarin Sodium (Coumadin) 3.75 mg DAILY 11/30/20 09:00 UNV Zolpidem Tartrate (Ambien) 5 mg PRN QHS PRN 12/05/20 20:00 12/10/20 21:26 5 MG Lab Laboratory Tests Test 12/12/20 05:40 Sodium Level 131 mmol/L (136-145) Potassium Level 3.0 mmol/L (3.5-5.1) Chloride Level 93 mmol/L (98-107) Carbon Dioxide Level 26 mmol/L (21-32) Anion Gap 12 (6-14) Blood Urea Nitrogen 79 mg/dL (8-26) Creatinine 4.2 mg/dL (0.7-1.3) Estimated GFR (Cockcroft-Gault) 13.6 Glucose Level 111 mg/dL (70-99) Calcium Level 6.3 mg/dL (8.5-10.1) Phosphorus Level 8.0 mg/dL (2.6-4.7) Albumin 0.8 g/dL (3.4-5.0) Results All relevant outside records, renal labs, imaging studies, telemetry/EKG's were reviewed. Justicifation of Admission Dx: Justifications for Admission: Justification of Admission Dx: N/A MERLE QUIROZ MD Dec 12, 2020 09:54
[2020-12-12] MEDS ORDERED: LIDOCAINE WITH 8.4% SOD BICARB 3 ML DISP.SYRIN. ONE (10:27)
[2020-12-12 11:00] VITALS: BP 117/48
--- NOTE | 2020-12-12 11:12 | PDOC ---
LILLIANA AZEVEDO LAYER UP 12/12/20 1112: CARDIO Progress Notes Date and Time Date of Service 12/12/20 Time of Evaluation 1100 Subjective Subjective: No Chest Pain, No shortness of breath, No Palpitations Vitals Vitals Vital Signs Date Time Temp Pulse Resp B/P (MAP) Pulse Ox O2 Delivery O2 Flow Rate FiO2 12/12/20 07:00 97.6 60 18 111/47 (68) 96 Room Air 97.6 12/12/20 04:46 2.0 Weight Weight [ ] Input and Output Intake and Output Intake and Output 12/12/20 06:59 Intake Total 830 ml Balance 830 ml Intake Oral 530 ml IV Total 300 ml Laboratory Labs Laboratory Tests Test 12/12/20 05:40 Sodium Level 131 mmol/L (136-145) Potassium Level 3.0 mmol/L (3.5-5.1) Chloride Level 93 mmol/L (98-107) Carbon Dioxide Level 26 mmol/L (21-32) Anion Gap 12 (6-14) Blood Urea Nitrogen 79 mg/dL (8-26) Creatinine 4.2 mg/dL (0.7-1.3) Estimated GFR (Cockcroft-Gault) 13.6 Glucose Level 111 mg/dL (70-99) Calcium Level 6.3 mg/dL (8.5-10.1) Phosphorus Level 8.0 mg/dL (2.6-4.7) Albumin 0.8 g/dL (3.4-5.0) Microbiology Micro Microbiology 12/07/20 Urine Culture - Final, Complete 12/05/20 Blood Culture - Final, Complete NO GROWTH AFTER 5 DAYS 12/04/20 Gram Stain - Final, Complete 12/04/20 Aerobic and Anaerobic Culture - Final, Complete Review of Systems Constitutional: yes: alert, oriented Ears/Nose/Throat: Yes: no symptom reported Eyes: Yes: no symptom reported Pulmonary: Yes no symptom reported Cardiovascular: Yes edema Gastrointestional: Yes: no symptom reported Genitourinary: Yes: no symptom reported Musculoskeletal: Yes: no symptom reported Skin: Yes no symptom reported Psychiatric/Neurological: Yes: no symptom reported Endocrine: Yes: no symptom reported Physical Exam HEENT: Neck Supple W Full Motion Chest: Symmetric LUNGS: Other (diminished bases) Heart: other (V paced with underlying AFIB) Abdomen: Soft N/T Extremities: Other (2+ bilateral LE edema ) Neurology: alert, oriented, follow commands Assessment Assessment 1. Weakness, mechanical fall with right knee effusion: s/p I & D 2. Sepsis, MSSA bacteremia: no intracardiac vegetation per SOO. 3. SSS, s/p PPM. generator change ([employer]) 11/01/2020. normal function 4. CAD: clinically stable 5. Permanent AFIB: rate controlled with intermittent v-pacing. 6. Coagulopathy due to warfarin; OAC held. INR better at 2.1 7. Chronic diastolic CHF; echo with normal EF and WM 8. GUERO; Cr ^ 4.2. HD to initiate 9. HTN: controlled 10. HLP: on statin 11. Postoperative anemia Recommendations Continue ASA. hold OAC at this time Secondary prevention Metoprolol for rate control Avoid nephrotoxins Fluid offloading via HD Supportive care Justicifation of Admission Dx: Justifications for Admission: Justification of Admission Dx: N/A IRMA GONZALES MD 12/12/20 1623: CARDIO Progress Notes Assessment Assessment Patient seen and examined. Agree with BOILERMAKER HELPER's assessment and plan Perm AF rate controlled Ac on chr diast HF better compensated CAD, SSS s/p PPM stable SOO did not show any intracardiac thrombus or vegetation Continue treatment of sepsis/bacteremia per ID team Nephrology planning hemodialysis initiation secondary to worsening renal function. LILLIANA AZEVEDO APRN Dec 12, 2020 11:12 IRMA GONZALES MD Dec 12, 2020 16:23
[2020-12-12] MEDS ORDERED: DIALYSIS PATIENT. MC PRN ×2 (12:00)
[2020-12-12] MEDS ORDERED: 0.9 % SODIUM CHLORIDE 10 ML DISP.SYRIN. IV PRN ×2 (12:00)
[2020-12-12] MEDS ORDERED: ALBUMIN HUMAN 25% 200 ML IV PRN (12:00)
[2020-12-12] MEDS ORDERED: IV NORMAL SALINE 1000ML BAG 1,000 ML IV PRN (12:00)
[2020-12-12] MEDS ORDERED: LIDOCAINE WITH 8.4% SOD BICARB 3 ML DISP.SYRIN. INJ ONE (13:15)
--- NOTE | 2020-12-12 14:11 | NUR ---
SW following. Discussed with RN, pt's auth for SNF placement , so will need to be redone when medically stable. Pt had temporary dialysis catheter placed today and will have dialysis. SW awaiting confirmation from [facility] on whether they can accept the q4 IV abx. SW will continue to follow.
--- NOTE | 2020-12-12 15:09 | RAD ---
12/12/2020 Procedure: Temporary hemodialysis catheter placement Total fluoroscopy time: 1 Min Dose area product 2 mGycm2 Sterility: All elements of maximal sterile barrier technique including the use of a cap, mask, steril e gown, sterile gloves, large sterile sheet, appropriate hand hygiene, and 2% chlorhexidine for cutan eous antisepsis (or acceptable alternative antiseptic per current guidelines) were followed for this procedure. Consent: The procedure was explained in its entirety to the patient or the patients designated repres entative by a member of the treatment team, including a discussion of the risks, benefits and commonl y accepted alternatives to the procedure, as well as the expected consequences of no therapy whatsoev er. Discussion of the risks included, but was not limited to, those that are most frequent and thos e that are rare but possibly severe or life-threatening, as well as the possibility of unforeseen com plications. Technique and Findings: Following informed consent, the patient was prepped and draped in the usual s terile fashion. Ultrasound interrogation of the right neck revealed patency and compressibility of t he right internal jugular vein. A 21-gauge micropuncture was then used to gain access to this vein u nder ultrasound guidance. A hard copy ultrasound image was recorded. A guidewire was advanced centra lly over which, following dilatation, a temporary dialysis catheter was placed. Catheter tip was po sitioned in the proximal right atrium with the patient supine. The new catheter was found to flush an d aspirate normally. The catheter was secured in place. Sterile dressings were applied. No immediate complications were identified. IMPRESSION: Placement of a temporary dialysis catheter with ultrasound and fluoroscopic guidance Electronically signed by: Gilbert Avery MD (12/12/2020 3:06 PM) [id number]
[2020-12-12 19:00] VITALS: BP 106/39
--- NOTE | 2020-12-12 19:55 | PN ---
DATE: 12/12/2020 LOCATION: He is in room 514. SUBJECTIVE: This 85-year-old male remains hospitalized with MSSA sepsis from right knee source. He continues to feel better on a daily basis, was pushing towards getting towards discharge. He still has some achiness, but this is improved. He is very upset that he is not getting therapy on a daily basis. I discussed with him the need for probable dialysis later today and he is understandable. He continues to have small smears of stool and is unhappy with that either. OBJECTIVE: VITAL SIGNS: Stable. He is afebrile. GENERAL: He is awake and alert. CHEST: Clear. HEART: Regular. ABDOMEN: Benign. EXTREMITIES: Right knee appears stable. LABORATORY DATA: Creatinine is increased further this morning up to 4.2 with BUN going to 79. His phosphorus was high at 8. Sodium is a little low at 131, potassium 3. ASSESSMENT: 1. Methicillin-resistant Staphylococcus aureus sepsis with right knee source. 2. Coagulopathy, resolved. 3. Anemia following surgery, stable. 4. Acute renal failure with results as above. PLAN: Continue IV antibiotics. Renal will probably do dialysis later today, which hopefully will be a temporary thing. We will encourage therapy to work with him on a daily basis and nursing to make it was mobile as possible. LEYLA GIFFORD: Danielle TID: [phone]
[2020-12-12] MEDS: ATORVASTATIN CALCIUM 20 MG TABLET PO SCH (20:45)
[2020-12-12] MEDS: ZOLPIDEM 5 MG TABLET. PO PRN (20:45)
[2020-12-12] MEDS: ACETAMINOPHEN 325 MG TABLET. PO SCH (20:45)
[2020-12-12 23:00] VITALS: BP 93/39
[2020-12-13] MEDS: NAFCILLIN 2 GM in IV DEXTROSE 5% 100ML 100 ML IV SCH ×6 (00:39→20:36)
[2020-12-13 03:00] VITALS: BP 106/48
[2020-12-13 04:36] LABS: ALBUMIN 0.8 g/dL (3.4-5.0); CALCIUM 6.6 mg/dL (8.5-10.1); CREATININE 3.3 mg/dL (0.7-1.3); PHOSPHORUS 5.5 mg/dL (2.6-4.7); POTASSIUM 3.4 mmol/L (3.5-5.1)
[2020-12-13 07:00] VITALS: BP 103/44
--- NOTE | 2020-12-13 08:21 | PN ---
DATE: 12/13/2020 DAILY PROGRESS NOTE LOCATION: He is in room 514. SUBJECTIVE: This 85-year-old male remains hospitalized with MSSA sepsis from a right knee source. He does feel much better. Received his first dialysis yesterday and tolerated it well. He is still happy that he is not getting any mobility with therapy. OBJECTIVE VITAL SIGNS: Stable. He is afebrile. GENERAL: He is awake and alert. CHEST: Clear. HEART: Regular. ABDOMEN: Benign. EXTREMITIES: Right knee remained somewhat swollen. LABORATORY DATA: Creatinine is down to 3.3 after dialysis and phosphorus dropped to 5.5. ASSESSMENT: 1. Methicillin-resistant Staph aureus sepsis, right knee source. 2. Coagulopathy, resolved. 3. Anemia following surgery, stable. 4. Acute renal failure with dialysis started. PLAN: Continue IV antibiotics. Therapy really needs to work with him. Hopefully mcc to finish antibiotics. Hopefully, we will see renal recovery go forward. LITO DR: Danielle TID: [phone]
[2020-12-13] MEDS: DOCUSATE SODIUM 100 MG CAPSULE. PO SCH ×2 (09:00→20:36)
[2020-12-13] MEDS ORDERED: DIALYSIS PATIENT. MC PRN ×2 (09:30)
[2020-12-13] MEDS ORDERED: IV NORMAL SALINE 1000ML BAG 1,000 ML IV PRN ×2 (09:30)
--- NOTE | 2020-12-13 09:46 | PDOC ---
DATE OF SERVICE DATE: 12/13/20 TIME: 09:45 SUBJECTIVE ROS Seen on dialysis, no complaints. Denies SOB, No N/V. States felt sleepy after Dialysis yesterday OBJECTIVE Vital Signs Vital Signs Date Time Temp Pulse Resp B/P (MAP) Pulse Ox O2 Delivery O2 Flow Rate FiO2 12/13/20 07:00 98.2 61 18 103/44 (63) 97 98.2 12/12/20 20:00 Nasal Cannula 3.0 I & 0 Intake and Output 12/13/20 07:00 Intake Total 500 ml Balance 500 ml Intake Oral 0 ml IV Total 500 ml # Voids 2 # Bowel Movements 2 PHYSICAL EXAM Physical Exam GENERAL: no acute distress. HEENT: Normocephalic, atraumatic. Anicteric. NECK: Supple, no JVD. LUNGS: decreased breath sounds at the bases, non labored . HEART: S1, S2, systolic murmur present. Pacemaker + ABDOMEN: Soft, nontender, nondistended. EXTREMITIES: post surgery dressing Rt knee + DERM: no generalized rash. NEUROLOGIC: Alert and oriented x 3, grossly nonfocal. DIAGNOSIS/ASSESSMENT Assessment & Plan GUERO - ATN 2/ 2 Hypotension/ Sepsis - worsening renal function, Non Oliguric . Requiring Dialysis 1st on 12/12 ; 2 nd treatment today , tolerating well. Continue as ordered, Francesco Reid . Access- Temp HDC Renal US unremarkable. Baseline normal Cr on 11/30 ; UA no eosinophils, No casts, Cx No growth . Monitor , supportive care , strict I/O (not recorded ) .Monitor for Renal recovery HypoNatremia- Mild, stable HypoKalemia- adjust K in dialysate Sepsis from Gram-positive bacteremia - MSSA bacteremia History of PPM.H/O recent battery exchange. Rt Knee pain and swelling status post synovial aspirate WBC 30,000 RBC 66,000; - Cultures staph aureus History of atrial fibrillation. Hypertension- BP 's low, antihypertensives (ESTEFANY-i, Coreg, Lasix ) held COMMENT/RELEVANT DATA Meds Current Medications Medications (Trade) Dose Ordered Sig/Gia Start Time Stop Time Status Last Admin Dose Admin Acetaminophen (Tylenol) 650 mg QHS 11/29/20 21:00 12/12/20 20:45 650 MG Acetaminophen/ Hydrocodone Bitart (Lortab 10) 1 tab PRN Q4HRS PRN 12/05/20 20:00 12/12/20 03:34 1 TAB Acetaminophen/ Hydrocodone Bitart (Lortab 5/325) 1 tab PRN Q4HRS PRN 11/28/20 22:45 12/05/20 19:50 DC 12/05/20 17:38 1 TAB Albumin Human 200 ml @ 200 mls/hr 1X PRN PRN 12/12/20 12:00 12/12/20 17:59 DC Aspirin (Aspirin Chewable) 81 mg DAILY 11/30/20 09:00 12/11/20 10:46 81 MG Atorvastatin Calcium (Lipitor) 20 mg QHS 11/29/20 21:00 12/12/20 20:45 20 MG Azithromycin 250 ml @ 250 mls/hr DAILY ONCE 11/30/20 09:00 11/30/20 09:59 UNV Azithromycin 500 mg/Sodium Chloride 250 ml @ 250 mls/hr Q24H 11/29/20 15:00 11/29/20 13:50 DC Benzocaine (Hurricaine One) 1 spray STK-MED ONCE 12/05/20 10:06 12/05/20 10:07 DC Carvedilol (Coreg) 3.125 mg BIDWMEALS 12/01/20 12:00 12/05/20 20:11 DC 12/03/20 16:39 3.125 MG Ceftriaxone Sodium (Rocephin) 2 gm Q24H 11/29/20 14:00 12/01/20 09:19 DC 11/30/20 13:21 2 GM Daptomycin 500 mg/ Sodium Chloride 50 ml @ 100 mls/hr Q48H 12/13/20 10:00 Daptomycin 580 mg/ Sodium Chloride 50 ml @ 100 mls/hr Q24H 12/01/20 07:30 12/01/20 09:19 DC 12/01/20 08:52 100 MLS/HR Dexamethasone Sodium Phosphate (Decadron) 4 mg STK-MED ONCE 12/04/20 11:26 12/04/20 11:26 DC Docusate Sodium (Colace) 100 mg BID 12/03/20 21:00 12/09/20 08:00 100 MG Fentanyl Citrate (Fentanyl 2ml Vial) 100 mcg STK-MED ONCE 12/04/20 11:26 12/04/20 11:26 DC Furosemide (Lasix) 40 mg DAILY 12/01/20 12:00 12/07/20 14:46 DC 12/07/20 08:28 40 MG Hydromorphone HCl (Dilaudid) 0.5 mg PRN Q10MIN PRN 12/04/20 09:30 12/05/20 09:29 DC Influenza Virus Vaccine Quadrival (Flulaval Quad [id number] Syringe) 0.5 ml ONCE ONCE 11/29/20 09:00 11/29/20 09:01 DC 11/29/20 10:06 0.5 ML Info (PHARMACY MONITORING -- do not chart) 1 each PRN DAILY PRN 12/13/20 09:30 UNV Lactobacillus Rhamnosus (Culturelle) 1 cap BID 11/29/20 21:00 12/12/20 20:45 1 CAP Lidocaine HCl (Buffered Lidocaine 1%) 4 ml 1X ONCE 12/12/20 13:15 12/12/20 13:18 DC 12/12/20 13:11 4 ML Lidocaine HCl (Lidocaine 1% 20ml Vial) 10 ml 1X ONCE 12/01/20 16:00 12/01/20 16:01 DC Lidocaine HCl (Lidocaine Pf 2% Vial) 5 ml STK-MED ONCE 12/04/20 10:43 12/04/20 10:43 DC Lidocaine HCl (Viscous Lidocaine) 15 ml STK-MED ONCE 12/05/20 10:06 12/05/20 10:06 DC Lidocaine HCl (Xylocaine 2% Topical 30gm Tube) 30 hiro STK-MED ONCE 12/05/20 10:06 12/05/20 10:06 DC Metoprolol Succinate (Toprol Xl) 25 mg DAILY 12/09/20 09:00 12/11/20 10:47 25 MG Morphine Sulfate (Morphine Sulfate) 1 mg PRN Q10MIN PRN 12/04/20 09:30 12/05/20 09:29 DC Nafcillin Sodium 2 gm/Dextrose 100 ml @ 200 mls/hr Q4HRS 12/01/20 10:00 12/13/20 08:20 200 MLS/HR Ondansetron HCl (Zofran) 4 mg STK-MED ONCE 12/04/20 11:26 12/04/20 11:26 DC Phenylephrine HCl (PHENYLEPHRINE in 0.9% NACL PF) 1 mg STK-MED ONCE 12/04/20 10:43 12/04/20 10:43 DC Phytonadione (Vitamin K Ampule) 10 mg 1X ONCE 12/03/20 11:00 12/03/20 11:01 DC 12/03/20 11:17 10 MG Polyethylene Glycol (miraLAX PACKET) 17 gm PRN DAILY PRN 12/03/20 19:00 12/06/20 09:16 17 GM Potassium Chloride/Water 100 ml @ 50 mls/hr 1X ONCE 11/28/20 14:45 11/28/20 16:44 DC 11/28/20 16:20 50 MLS/HR Potassium Chloride (Klor-Con) 20 meq 1X ONCE 12/10/20 19:00 12/10/20 19:01 DC 12/10/20 18:52 20 MEQ Prochlorperazine Edisylate (Compazine) 5 mg PACU PRN PRN 12/04/20 09:30 12/05/20 09:29 DC Propofol (Diprivan) 200 mg STK-MED ONCE 12/05/20 09:29 12/05/20 09:30 DC Ringer's Solution 1,000 ml @ 30 mls/hr Q24H 12/04/20 09:30 12/04/20 21:29 DC Sevoflurane (Ultane) 60 ml STK-MED ONCE 12/04/20 11:14 12/04/20 11:14 DC Sodium Chloride 1,000 ml @ 400 mls/hr Q2H30M PRN 12/13/20 09:30 12/13/20 21:29 Sodium Chloride (Normal Saline Flush) 10 ml 1X PRN PRN 12/12/20 12:00 12/13/20 11:59 Sodium Chloride (Saline Mist Nasal) 1 hiro PRN Q1HR PRN 12/02/20 20:45 12/03/20 00:46 1 HIRO Warfarin Sodium (Coumadin) 3.75 mg DAILY 11/30/20 09:00 UNV Zolpidem Tartrate (Ambien) 5 mg PRN QHS PRN 12/05/20 20:00 12/12/20 20:45 5 MG Lab Laboratory Tests Test 12/13/20 03:35 Sodium Level 133 mmol/L (136-145) Potassium Level 3.4 mmol/L (3.5-5.1) Chloride Level 97 mmol/L (98-107) Carbon Dioxide Level 31 mmol/L (21-32) Anion Gap 5 (6-14) Blood Urea Nitrogen 48 mg/dL (8-26) Creatinine 3.3 mg/dL (0.7-1.3) Estimated GFR (Cockcroft-Gault) 18.0 Glucose Level 101 mg/dL (70-99) Calcium Level 6.6 mg/dL (8.5-10.1) Phosphorus Level 5.5 mg/dL (2.6-4.7) Albumin 0.8 g/dL (3.4-5.0) Results All relevant outside records, renal labs, imaging studies, telemetry/EKG's were reviewed. Justicifation of Admission Dx: Justifications for Admission: Justification of Admission Dx: N/A MERLE QUIROZ MD Dec 13, 2020 09:46
[2020-12-13] MEDS: HYDROcodone/APAP 10/325 1 TAB TABLET PO PRN (10:21)
--- NOTE | 2020-12-13 11:49 | PDOC ---
LILLIANA AZEVEDO FLIGHT KITCHEN MANAGER 12/13/20 1149: CARDIO Progress Notes Date and Time Date of Service 12/13/20 Time of Evaluation 1148 Subjective Subjective: No Chest Pain, No shortness of breath, No Palpitations Vitals Vitals Vital Signs Date Time Temp Pulse Resp B/P (MAP) Pulse Ox O2 Delivery O2 Flow Rate FiO2 12/13/20 08:00 Room Air 12/13/20 07:00 98.2 61 18 103/44 (63) 97 98.2 12/12/20 20:00 3.0 Weight Weight [ ] Input and Output Intake and Output Intake and Output 12/13/20 07:00 Intake Total 500 ml Balance 500 ml Intake Oral 0 ml IV Total 500 ml # Voids 2 # Bowel Movements 2 Laboratory Labs Laboratory Tests Test 12/13/20 03:35 Sodium Level 133 mmol/L (136-145) Potassium Level 3.4 mmol/L (3.5-5.1) Chloride Level 97 mmol/L (98-107) Carbon Dioxide Level 31 mmol/L (21-32) Anion Gap 5 (6-14) Blood Urea Nitrogen 48 mg/dL (8-26) Creatinine 3.3 mg/dL (0.7-1.3) Estimated GFR (Cockcroft-Gault) 18.0 Glucose Level 101 mg/dL (70-99) Calcium Level 6.6 mg/dL (8.5-10.1) Phosphorus Level 5.5 mg/dL (2.6-4.7) Albumin 0.8 g/dL (3.4-5.0) Microbiology Micro Microbiology 12/07/20 Urine Culture - Final, Complete 12/05/20 Blood Culture - Final, Complete NO GROWTH AFTER 5 DAYS 12/04/20 Gram Stain - Final, Complete 12/04/20 Aerobic and Anaerobic Culture - Final, Complete Review of Systems Constitutional: yes: alert, oriented Ears/Nose/Throat: Yes: no symptom reported Eyes: Yes: no symptom reported Pulmonary: Yes no symptom reported Cardiovascular: Yes edema Gastrointestional: Yes: no symptom reported Genitourinary: Yes: no symptom reported Musculoskeletal: Yes: no symptom reported Skin: Yes no symptom reported Psychiatric/Neurological: Yes: no symptom reported Endocrine: Yes: no symptom reported Physical Exam HEENT: Neck Supple W Full Motion Chest: Symmetric LUNGS: Other (diminished bases) Heart: other (V paced with underlying AFIB) Abdomen: Soft N/T Extremities: Other (2+ bilateral LE edema ) Neurology: alert, oriented, follow commands Assessment Assessment 1. Weakness, mechanical fall with right knee effusion: s/p I & D 2. Sepsis, MSSA bacteremia: no intracardiac vegetation per SOO. 3. SSS, s/p PPM. generator change ([employer]) 11/01/2020. normal function 4. CAD: clinically stable 5. Permanent AFIB: rate controlled with intermittent v-pacing. 6. Coagulopathy due to warfarin; OAC held. INR better at 2.1 7. Chronic diastolic CHF; echo with normal EF and WM 8. GUERO; Cr ^ 4.2. HD to initiated 9. HTN: controlled 10. HLP: on statin 11. Postoperative anemia Recommendations Continue ASA. Will discuss resumption of anticoagulation with heparin gtt and transitioning to Eliquis upon discharge with primary telecommunications technician. Secondary prevention Metoprolol for rate control Avoid nephrotoxins Fluid offloading via HD Ongoing treatment of sepsis/bacteremia per ID team Supportive care Justicifation of Admission Dx: Justifications for Admission: Justification of Admission Dx: N/A IRMA GONZALES MD 12/13/202: CARDIO Progress Notes Assessment Assessment Patient seen and examined. Agree with CREDIT NEGOTIATOR's assessment and plan Perm AF rate controlled Ac on chr diast HF better compensated CAD, SSS s/p PPM stable SOO did not show any intracardiac thrombus or vegetation Continue treatment of sepsis/bacteremia per ID team Continue HD per nephrology team We will consider outpatient referral for LAAO procedure LILLIANA AZEVEDO APRN Dec 13, 2020 11:49 IRMA GONZALES MD Dec 13, 2020 21:12
[2020-12-13] MEDS: ASPIRIN CHEWABLE 81 MG TABLET. PO SCH (14:06)
[2020-12-13] MEDS: DAPTOmycin (GENERIC) IVPB 500 MG in IV NORMAL SALINE 50ML 50 ML IV SCH (14:06)
[2020-12-13] MEDS: METOPROLOL SUCC 24HR ER 25 MG TAB.ER.24H. PO SCH (14:06)
[2020-12-13] MEDS: LACTOBACILLUS RHAMNOSUS GG 1 CAPSULE. PO SCH ×2 (14:06→20:37)
--- NOTE | 2020-12-13 14:36 | NUR ---
Pt off unit, at dialysis when 1200 Nafcillin was due. Non-administered this dose per Gini in pharmacy and will continue the next dose at 1600. Will continue to monitor.
[2020-12-13 15:00] VITALS: BP 111/41
--- NOTE | 2020-12-13 18:35 | PDOC ---
PROGRESS NOTES Date of Service DATE: 12/13/20 TIME: 18:30 Subjective Subjective Problems overnight: Resting comfortably, indicates that right knee is quite a bit better than before surgery but still has some pain and swelling Objective Vital Signs Vital Signs Date Time Temp Pulse Resp B/P (MAP) Pulse Ox O2 Delivery O2 Flow Rate FiO2 12/13/20 14:06 64 114/46 12/13/20 08:00 Room Air 12/13/20 07:00 98.2 18 97 98.2 12/12/20 20:00 3.0 Physical Exam Prepatellar bursa is much less red but does have some swelling. Likewise mild knee effusion but improved range of motion arthroscopic incisions intact with no drainage distal neurovascular status intact Labs Laboratory Tests Test 12/12/20 05:40 12/13/20 03:35 Sodium Level 131 mmol/L (136-145) 133 mmol/L (136-145) Potassium Level 3.0 mmol/L (3.5-5.1) 3.4 mmol/L (3.5-5.1) Chloride Level 93 mmol/L (98-107) 97 mmol/L (98-107) Carbon Dioxide Level 26 mmol/L (21-32) 31 mmol/L (21-32) Anion Gap 12 (6-14) 5 (6-14) Blood Urea Nitrogen 79 mg/dL (8-26) 48 mg/dL (8-26) Creatinine 4.2 mg/dL (0.7-1.3) 3.3 mg/dL (0.7-1.3) Estimated GFR (Cockcroft-Gault) 13.6 18.0 Glucose Level 111 mg/dL (70-99) 101 mg/dL (70-99) Calcium Level 6.3 mg/dL (8.5-10.1) 6.6 mg/dL (8.5-10.1) Phosphorus Level 8.0 mg/dL (2.6-4.7) 5.5 mg/dL (2.6-4.7) Albumin 0.8 g/dL (3.4-5.0) 0.8 g/dL (3.4-5.0) Hepatitis B Surface Antigen Nonreactive (Nonreactive) Magnesium Level 2.3 mg/dL (1.8-2.4) Laboratory Tests Test 12/13/20 03:35 Sodium Level 133 mmol/L (136-145) Potassium Level 3.4 mmol/L (3.5-5.1) Chloride Level 97 mmol/L (98-107) Carbon Dioxide Level 31 mmol/L (21-32) Anion Gap 5 (6-14) Blood Urea Nitrogen 48 mg/dL (8-26) Creatinine 3.3 mg/dL (0.7-1.3) Estimated GFR (Cockcroft-Gault) 18.0 Glucose Level 101 mg/dL (70-99) Calcium Level 6.6 mg/dL (8.5-10.1) Phosphorus Level 5.5 mg/dL (2.6-4.7) Magnesium Level 2.3 mg/dL (1.8-2.4) Albumin 0.8 g/dL (3.4-5.0) Assessment Assessment POD#irrigation debridement of septic right knee and prepatellar bursa Plan Plan of Care Removed sutures and expressed hematoma from distal prepatellar bursa incision. Area was prepped and dressed and an Oneal wrap placed to hopefully minimize reaccumulation of bleeding/hematoma Continue mobilize as tolerated, antibiotics for septic knee and blood culture results Justicifation of Admission Dx: Justifications for Admission: Justification of Admission Dx: N/A ARMINDA BUTLER MD Dec 13, 2020 18:35
[2020-12-13 19:00] VITALS: BP 126/59
[2020-12-13] MEDS: ACETAMINOPHEN 325 MG TABLET. PO SCH (20:37)
[2020-12-13] MEDS: ZOLPIDEM 5 MG TABLET. PO PRN (20:37)
[2020-12-13] MEDS: ATORVASTATIN CALCIUM 20 MG TABLET PO SCH (20:37)
[2020-12-13 23:00] VITALS: BP 107/44
--- NOTE | 2020-12-13 23:24 | NUR ---
Copious amounts of blood noted during 1999 rounds to right knee where sutures were removed today, dressing removed and pressure dressing applied, pillow saturated with blood under the knee as well, this RN has changed the dressing twice, d/t saturation, RN tried to notify Dr. Knowles but was unable to get ahold of physician, now answering service. Spoke with Melissa in ICU for further recommendations, Will continue to monitor.
[2020-12-14] MEDS: NAFCILLIN 2 GM in IV DEXTROSE 5% 100ML 100 ML IV SCH ×6 (00:24→21:31)
[2020-12-14 03:00] VITALS: BP 108/47
[2020-12-14 07:00] VITALS: BP 96/40
[2020-12-14 07:26] LABS: CALCIUM 7.1 mg/dL (8.5-10.1); CREATININE 3.1 mg/dL (0.7-1.3); GFR 19.3; POTASSIUM 3.9 mmol/L (3.5-5.1)
[2020-12-14 07:48] LABS: BASO % 0 % (0-3); EOS # 0.6 x10^3/uL (0.0-0.7); EOS % 6 % (0-3); LYMPH # 0.9 x10^3/uL (1.0-4.8); LYMPH % 10 % (24-48); MEAN CORPUSCULAR HEMOGLOBIN 30 pg (25-35); MEAN CORPUSCULAR HGB CONC 34 g/dL (31-37); MEAN CORPUSCULAR VOLUME 90 fL (79-100); MONO # 0.7 x10^3/uL (0.0-1.1); MONO % 8 % (0-9); NEUT # 7.2 x10^3/uL (1.8-7.7); NEUT % 76 % (31-73); PLATELET COUNT 376 x10^3/uL (140-400); RED BLOOD COUNT 2.31 x10^6/uL (4.30-5.70); RED CELL DISTRIBUTION WIDTH 15.9 % (11.5-14.5); WHITE BLOOD COUNT 9.5 x10^3/uL (4.0-11.0)
[2020-12-14 07:55] LABS: HEMATOCRIT 20.7 % (39.0-53.0)
--- NOTE | 2020-12-14 08:34 | PN ---
DATE: 12/14/2020 DAILY PROGRESS NOTE LOCATION: He is in room #514. SUBJECTIVE: This 85-year-old male remains hospitalized with MSSA sepsis from a right knee source. He continues to feel better. He has had dialysis a couple of times at this point and is tolerating it well. Therapy has not been through again, but yesterday apparently was at dialysis, so it was not done. OBJECTIVE: VITAL SIGNS: Stable. He is afebrile. GENERAL: He is awake and alert. CHEST: Clear. HEART: Regular. ABDOMEN: Benign. EXTREMITIES: Right knee, he has had sutures removed and appears approximately the same. LABORATORY DATA: Creatinine is down to 3.1 this morning with sodium and potassium normal, but again is on dialysis. ASSESSMENT: 1. Methicillin-resistant Staphylococcus aureus sepsis from a right knee source. 2. Coagulopathy, on admission, resolved. 3. Anemia, following surgery, stable. 4. Acute renal failure with dialysis started. PLAN: Continue IV antibiotics. Hopefully, therapy will work with him. Discharge planning is going to be tough with the ongoing need for dialysis. He is going to need long-term antibiotics because of the sepsis on admission. OSMANI DR: Danielle TID: [phone]
[2020-12-14] MEDS: LACTOBACILLUS RHAMNOSUS GG 1 CAPSULE. PO SCH ×2 (08:56→21:31)
[2020-12-14] MEDS: ASPIRIN CHEWABLE 81 MG TABLET. PO SCH (08:56)
[2020-12-14] MEDS: DOCUSATE SODIUM 100 MG CAPSULE. PO SCH ×2 (09:00→21:00)
--- NOTE | 2020-12-14 09:52 | PDOC ---
DATE OF SERVICE DATE: 12/14/20 TIME: 09:51 SUBJECTIVE ROS Stable , Denies N/V. No SOB OBJECTIVE Vital Signs Vital Signs Date Time Temp Pulse Resp B/P (MAP) Pulse Ox O2 Delivery O2 Flow Rate FiO2 12/14/20 07:00 97.9 60 18 96/40 (58) 95 Nasal Cannula 2.0 97.9 I & 0 Intake and Output 12/14/20 07:00 Intake Total 670 ml Output Total 400 ml Balance 270 ml Intake Oral 220 ml IV Total 450 ml Output Urine Total 400 ml # Bowel Movements 1 PHYSICAL EXAM Physical Exam GENERAL: no acute distress. HEENT: Normocephalic, atraumatic. Anicteric. NECK: Supple, no JVD. LUNGS: decreased breath sounds at the bases, non labored . HEART: S1, S2, systolic murmur present. Pacemaker + ABDOMEN: Soft, nontender, nondistended. EXTREMITIES: post surgery dressing Rt knee + DERM: no generalized rash. NEUROLOGIC: Alert and oriented x 3, grossly nonfocal. DIAGNOSIS/ASSESSMENT Assessment & Plan GUERO - ATN 2/ 2 Hypotension/ Sepsis - worsening renal function, Non Oliguric . Requiring Dialysis 1st on 12/12 ; 2 nd on 12/13. No indication for HD today Renal US unremarkable. Baseline normal Cr on 11/30 ; UA no eosinophils, No casts, Cx No growth . Monitor , supportive care , strict I/O (not recorded ) .Monitor for Renal recovery . Re-eval for dialysis in the morning HypoNatremia- Mild, stable HypoKalemia- adjust K in dialysate Anemia- Noted decrease in Hgb. Copious amounts of blood noted by nursing last night right knee suture site . Defer to Primary/Ortho Sepsis from Gram-positive bacteremia - MSSA bacteremia History of PPM.H/O recent battery exchange. Rt Knee pain and swelling status post synovial aspirate WBC 30,000 RBC 66,000; - Cultures staph aureus History of atrial fibrillation. Hypertension- BP 's low, antihypertensives (ESTEFANY-i, Coreg, Lasix ) held COMMENT/RELEVANT DATA Meds Current Medications Medications (Trade) Dose Ordered Sig/Gia Start Time Stop Time Status Last Admin Dose Admin Acetaminophen (Tylenol) 650 mg QHS 11/29/20 21:00 12/13/20 20:37 650 MG Acetaminophen/ Hydrocodone Bitart (Lortab 10/325) 1 tab PRN Q4HRS PRN 10/11/21 20:00 12/13/20 10:21 1 TAB Acetaminophen/ Hydrocodone Bitart (Lortab 5/325) 1 tab PRN Q4HRS PRN 11/28/20 22:45 12/05/20 19:50 DC 12/05/20 17:38 1 TAB Albumin Human 200 ml @ 200 mls/hr 1X PRN PRN 12/12/20 12:00 12/12/20 17:59 DC Aspirin (Aspirin Chewable) 81 mg DAILY 11/30/20 09:00 12/14/20 08:56 81 MG Atorvastatin Calcium (Lipitor) 20 mg QHS 11/29/20 21:00 12/13/20 20:37 20 MG Azithromycin 250 ml @ 250 mls/hr DAILY ONCE 11/30/20 09:00 11/30/20 09:59 UNV Azithromycin 500 mg/Sodium Chloride 250 ml @ 250 mls/hr Q24H 11/29/20 15:00 11/29/20 13:50 DC Benzocaine (Hurricaine One) 1 spray STK-MED ONCE 12/05/20 10:06 12/05/20 10:07 DC Carvedilol (Coreg) 3.125 mg BIDWMEALS 12/01/20 12:00 12/05/20 20:11 DC 12/03/20 16:39 3.125 MG Ceftriaxone Sodium (Rocephin) 2 gm Q24H 11/29/20 14:00 12/01/20 09:19 DC 11/30/20 13:21 2 GM Daptomycin 500 mg/ Sodium Chloride 50 ml @ 100 mls/hr Q48H 12/13/20 10:00 12/13/20 14:06 100 MLS/HR Daptomycin 580 mg/ Sodium Chloride 50 ml @ 100 mls/hr Q24H 12/01/20 07:30 12/01/20 09:19 DC 12/01/20 08:52 100 MLS/HR Dexamethasone Sodium Phosphate (Decadron) 4 mg STK-MED ONCE 12/04/20 11:26 12/04/20 11:26 DC Docusate Sodium (Colace) 100 mg BID 12/03/20 21:00 12/09/20 08:00 100 MG Fentanyl Citrate (Fentanyl 2ml Vial) 100 mcg STK-MED ONCE 12/04/20 11:26 12/04/20 11:26 DC Furosemide (Lasix) 40 mg DAILY 12/01/20 12:00 12/07/20 14:46 DC 12/07/20 08:28 40 MG Hydromorphone HCl (Dilaudid) 0.5 mg PRN Q10MIN PRN 12/04/20 09:30 12/05/20 09:29 DC Influenza Virus Vaccine Quadrival (Flulaval Quad [id number] Syringe) 0.5 ml ONCE ONCE 11/29/20 09:00 11/29/20 09:01 DC 11/29/20 10:06 0.5 ML Info (PHARMACY MONITORING -- do not chart) 1 each PRN DAILY PRN 12/13/20 09:30 UNV Lactobacillus Rhamnosus (Culturelle) 1 cap BID 11/29/20 21:00 12/14/20 08:56 1 CAP Lidocaine HCl (Buffered Lidocaine 1%) 4 ml 1X ONCE 12/12/20 13:15 12/12/20 13:18 DC 12/12/20 13:11 4 ML Lidocaine HCl (Lidocaine 1% 20ml Vial) 10 ml 1X ONCE 12/01/20 16:00 12/01/20 16:01 DC Lidocaine HCl (Lidocaine Pf 2% Vial) 5 ml STK-MED ONCE 12/04/20 10:43 12/04/20 10:43 DC Lidocaine HCl (Viscous Lidocaine) 15 ml STK-MED ONCE 12/05/20 10:06 12/05/20 10:06 DC Lidocaine HCl (Xylocaine 2% Topical 30gm Tube) 30 hiro STK-MED ONCE 12/05/20 10:06 12/05/20 10:06 DC Metoprolol Succinate (Toprol Xl) 25 mg DAILY 12/09/20 09:00 12/13/20 14:06 25 MG Morphine Sulfate (Morphine Sulfate) 1 mg PRN Q10MIN PRN 12/04/20 09:30 12/05/20 09:29 DC Nafcillin Sodium 2 gm/Dextrose 100 ml @ 200 mls/hr Q4HRS 12/01/20 10:00 12/14/20 08:54 200 MLS/HR Ondansetron HCl (Zofran) 4 mg STK-MED ONCE 12/04/20 11:26 12/04/20 11:26 DC Phenylephrine HCl (PHENYLEPHRINE in 0.9% NACL PF) 1 mg STK-MED ONCE 12/04/20 10:43 12/04/20 10:43 DC Phytonadione (Vitamin K Ampule) 10 mg 1X ONCE 12/03/20 11:00 12/03/20 11:01 DC 12/03/20 11:17 10 MG Polyethylene Glycol (miraLAX PACKET) 17 gm PRN DAILY PRN 12/03/20 19:00 12/06/20 09:16 17 GM Potassium Chloride/Water 100 ml @ 50 mls/hr 1X ONCE 11/28/20 14:45 11/28/20 16:44 DC 11/28/20 16:20 50 MLS/HR Potassium Chloride (Klor-Con) 20 meq 1X ONCE 12/10/20 19:00 12/10/20 19:01 DC 12/10/20 18:52 20 MEQ Prochlorperazine Edisylate (Compazine) 5 mg PACU PRN PRN 12/04/20 09:30 12/05/20 09:29 DC Propofol (Diprivan) 200 mg STK-MED ONCE 12/05/20 09:29 12/05/20 09:30 DC Ringer's Solution 1,000 ml @ 30 mls/hr Q24H 12/04/20 09:30 12/04/20 21:29 DC Sevoflurane (Ultane) 60 ml STK-MED ONCE 12/04/20 11:14 12/04/20 11:14 DC Sodium Chloride 1,000 ml @ 400 mls/hr Q2H30M PRN 12/13/20 09:30 12/13/20 21:29 DC Sodium Chloride (Normal Saline Flush) 10 ml 1X PRN PRN 12/12/20 12:00 12/13/20 11:59 DC Sodium Chloride (Saline Mist Nasal) 1 hiro PRN Q1HR PRN 12/02/20 20:45 12/03/20 00:46 1 HIRO Warfarin Sodium (Coumadin) 3.75 mg DAILY 11/30/20 09:00 UNV Zolpidem Tartrate (Ambien) 5 mg PRN QHS PRN 12/05/20 20:00 12/13/20 20:37 5 MG Lab Laboratory Tests Test 12/14/20 06:05 White Blood Count 9.5 x10^3/uL (4.0-11.0) Red Blood Count 2.31 x10^6/uL (4.30-5.70) Hemoglobin 7.0 g/dL (13.0-17.5) Hematocrit 20.7 % (39.0-53.0) Mean Corpuscular Volume 90 fL (79-100) Mean Corpuscular Hemoglobin 30 pg (25-35) Mean Corpuscular Hemoglobin Concent 34 g/dL (31-37) Red Cell Distribution Width 15.9 % (11.5-14.5) Platelet Count 376 x10^3/uL (140-400) Neutrophils (%) (Auto) 76 % (31-73) Lymphocytes (%) (Auto) 10 % (24-48) Monocytes (%) (Auto) 8 % (0-9) Eosinophils (%) (Auto) 6 % (0-3) Basophils (%) (Auto) 0 % (0-3) Neutrophils # (Auto) 7.2 x10^3/uL (1.8-7.7) Lymphocytes # (Auto) 0.9 x10^3/uL (1.0-4.8) Monocytes # (Auto) 0.7 x10^3/uL (0.0-1.1) Eosinophils # (Auto) 0.6 x10^3/uL (0.0-0.7) Basophils # (Auto) 0.0 x10^3/uL (0.0-0.2) Sodium Level 136 mmol/L (136-145) Potassium Level 3.9 mmol/L (3.5-5.1) Chloride Level 100 mmol/L (98-107) Carbon Dioxide Level 30 mmol/L (21-32) Anion Gap 6 (6-14) Blood Urea Nitrogen 32 mg/dL (8-26) Creatinine 3.1 mg/dL (0.7-1.3) Estimated GFR (Cockcroft-Gault) 19.3 Glucose Level 105 mg/dL (70-99) Calcium Level 7.1 mg/dL (8.5-10.1) Results All relevant outside records, renal labs, imaging studies, telemetry/EKG's were reviewed. Justicifation of Admission Dx: Justifications for Admission: Justification of Admission Dx: N/A MERLE QUIROZ MD Dec 14, 2020 09:52
[2020-12-14 11:00] VITALS: BP 120/44
--- NOTE | 2020-12-14 11:40 | PDOC ---
LILLIANA AZEVEDO KARLO 12/14/20 1140: CARDIO Progress Notes Date and Time Date of Service 12/14/20 Time of Evaluation 1130 Subjective Subjective: No Chest Pain, No shortness of breath, No Palpitations Vitals Vitals Vital Signs Date Time Temp Pulse Resp B/P (MAP) Pulse Ox O2 Delivery O2 Flow Rate FiO2 12/14/20 07:00 97.9 60 18 96/40 (58) 95 Nasal Cannula 2.0 97.9 Weight Weight [ ] Input and Output Intake and Output Intake and Output 12/14/20 07:00 Intake Total 670 ml Output Total 400 ml Balance 270 ml Intake Oral 220 ml IV Total 450 ml Output Urine Total 400 ml # Bowel Movements 1 Laboratory Labs Laboratory Tests Test 12/14/20 06:05 White Blood Count 9.5 x10^3/uL (4.0-11.0) Red Blood Count 2.31 x10^6/uL (4.30-5.70) Hemoglobin 7.0 g/dL (13.0-17.5) Hematocrit 20.7 % (39.0-53.0) Mean Corpuscular Volume 90 fL (79-100) Mean Corpuscular Hemoglobin 30 pg (25-35) Mean Corpuscular Hemoglobin Concent 34 g/dL (31-37) Red Cell Distribution Width 15.9 % (11.5-14.5) Platelet Count 376 x10^3/uL (140-400) Neutrophils (%) (Auto) 76 % (31-73) Lymphocytes (%) (Auto) 10 % (24-48) Monocytes (%) (Auto) 8 % (0-9) Eosinophils (%) (Auto) 6 % (0-3) Basophils (%) (Auto) 0 % (0-3) Neutrophils # (Auto) 7.2 x10^3/uL (1.8-7.7) Lymphocytes # (Auto) 0.9 x10^3/uL (1.0-4.8) Monocytes # (Auto) 0.7 x10^3/uL (0.0-1.1) Eosinophils # (Auto) 0.6 x10^3/uL (0.0-0.7) Basophils # (Auto) 0.0 x10^3/uL (0.0-0.2) Sodium Level 136 mmol/L (136-145) Potassium Level 3.9 mmol/L (3.5-5.1) Chloride Level 100 mmol/L (98-107) Carbon Dioxide Level 30 mmol/L (21-32) Anion Gap 6 (6-14) Blood Urea Nitrogen 32 mg/dL (8-26) Creatinine 3.1 mg/dL (0.7-1.3) Estimated GFR (Cockcroft-Gault) 19.3 Glucose Level 105 mg/dL (70-99) Calcium Level 7.1 mg/dL (8.5-10.1) Microbiology Micro Microbiology 12/07/20 Urine Culture - Final, Complete 12/05/20 Blood Culture - Final, Complete NO GROWTH AFTER 5 DAYS 12/04/20 Gram Stain - Final, Complete 12/04/20 Aerobic and Anaerobic Culture - Final, Complete Review of Systems Constitutional: yes: alert, oriented Ears/Nose/Throat: Yes: no symptom reported Eyes: Yes: no symptom reported Pulmonary: Yes no symptom reported Cardiovascular: Yes edema Gastrointestional: Yes: no symptom reported Genitourinary: Yes: no symptom reported Musculoskeletal: Yes: no symptom reported Skin: Yes no symptom reported Psychiatric/Neurological: Yes: no symptom reported Endocrine: Yes: no symptom reported Physical Exam HEENT: Neck Supple W Full Motion Chest: Symmetric LUNGS: Other (diminished bases) Heart: other (V paced with underlying AFIB) Abdomen: Soft N/T Extremities: Other (1+ bilateral LE edema ) Neurology: alert, oriented, follow commands Assessment Assessment 1. Weakness, mechanical fall with right knee effusion: s/p I & D 2. Sepsis, MSSA bacteremia: no intracardiac vegetation per SOO. 3. SSS, s/p PPM. generator change ([facility]) 11/01/2020. normal function 4. CAD: clinically stable 5. Permanent AFIB: rate controlled with intermittent v-pacing. 6. Coagulopathy due to warfarin; OAC held. s/p vit K 7. Chronic diastolic CHF; echo with normal EF and WM 8. GUERO; Cr ^ 4.2. HD initiated 9. HTN: controlled 10. HLP: on statin 11. Anemia; hgb drift to 7. No obvious bleeding Recommendations Continue ASA unless bleeding noted Poor candidate for OAC given anemia, fall risk Transfuse as warranted Secondary prevention Metoprolol for rate control Avoid nephrotoxins Fluid offloading via HD Ongoing treatment of sepsis/bacteremia per ID team Supportive care Consider outpatient referral of LAAO Justicifation of Admission Dx: Justifications for Admission: Justification of Admission Dx: N/A IRMA GONZALES MD 12/14/202100: CARDIO Progress Notes Assessment Assessment Patient seen and examined. 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
[2020-12-14] MEDS: METOPROLOL SUCC 24HR ER 25 MG TAB.ER.24H. PO SCH (12:32)
[2020-12-14 15:00] VITALS: BP 115/50
[2020-12-14 19:30] VITALS: BP 97/43
[2020-12-14] MEDS: ATORVASTATIN CALCIUM 20 MG TABLET PO SCH (21:31)
[2020-12-14] MEDS: ACETAMINOPHEN 325 MG TABLET. PO SCH (21:32)
[2020-12-14] MEDS: ZOLPIDEM 5 MG TABLET. PO PRN (21:32)
[2020-12-14] MEDS: EPOETIN ALFA-EPBX for ESRD 20,000 UNIT/ML VIAL. SQ SCH (21:32)
[2020-12-14 23:25] VITALS: BP 91/42
[2020-12-15] MEDS: NAFCILLIN 2 GM in IV DEXTROSE 5% 100ML 100 ML IV SCH ×7 (00:55→23:43)
[2020-12-15 04:00] VITALS: BP 108/45
[2020-12-15 07:00] VITALS: BP 100/49
[2020-12-15] MEDS ORDERED: DIALYSIS PATIENT. MC PRN ×2 (07:00)
[2020-12-15] MEDS ORDERED: IV NORMAL SALINE 1000ML BAG 1,000 ML IV PRN ×2 (07:00)
[2020-12-15] MEDS: METOPROLOL SUCC 24HR ER 25 MG TAB.ER.24H. PO SCH (09:00)
[2020-12-15] MEDS: DOCUSATE SODIUM 100 MG CAPSULE. PO SCH ×2 (09:00→21:21)
[2020-12-15 09:06] LABS: CALCIUM 7.1 mg/dL (8.5-10.1); CREATININE 4.2 mg/dL (0.7-1.3); GFR 13.6; POTASSIUM 4.2 mmol/L (3.5-5.1)
[2020-12-15 11:00] VITALS: BP 93/45
--- NOTE | 2020-12-15 11:18 | PDOC ---
DATE OF SERVICE DATE: 12/15/20 TIME: 11:15 SUBJECTIVE ROS Stable , Denies N/V. No SOB OBJECTIVE Vital Signs Vital Signs Date Time Temp Pulse Resp B/P (MAP) Pulse Ox O2 Delivery O2 Flow Rate FiO2 12/15/20 07:00 98.2 63 24 100/49 (66) 94 Room Air 98.2 12/15/20 04:00 3.0 I & 0 Intake and Output 12/15/20 07:00 Intake Total 700 ml Output Total 0 ml Balance 700 ml Intake Oral 500 ml IV Total 200 ml Output Urine Total 0 ml # Bowel Movements 1 PHYSICAL EXAM Physical Exam GENERAL: no acute distress. HEENT: Normocephalic, atraumatic. Anicteric. NECK: Supple, no JVD. LUNGS: decreased breath sounds at the bases, non labored . HEART: S1, S2, systolic murmur present. Pacemaker + ABDOMEN: Soft, nontender, nondistended. EXTREMITIES: post surgery dressing Rt knee + DERM: no generalized rash. NEUROLOGIC: Alert and oriented x 3, grossly nonfocal. DIAGNOSIS/ASSESSMENT Assessment & Plan GUERO - ATN 2/ 2 Hypotension/ Sepsis - worsening renal function, Non Oliguric . Requiring Dialysis 1st on 12/12 ; No improvement in renal function, seen during dialysis, tolerating well, continue as ordered , Francesco Reid Renal US unremarkable. Baseline normal Cr on 11/30 ; UA no eosinophils, No casts, Cx No growth . Monitor , supportive care , strict I/O (not recorded ) .Monitor for Renal recovery HypoNatremia- Mild, stable HypoKalemia- adjust K in dialysate Anemia- Noted decrease in Hgb 11/14 - Copious amounts of blood noted by nursing last night right knee suture site . No labs today Defer to Primary/Ortho Sepsis from Gram-positive bacteremia - MSSA bacteremia History of PPM.H/O recent battery exchange. Rt Knee pain and swelling status post synovial aspirate WBC 30,000 RBC 66,000; - Cultures staph aureus History of atrial fibrillation. Hypertension- BP 's low, antihypertensives (ESTEFANY-i, Coreg, Lasix ) held COMMENT/RELEVANT DATA Meds Current Medications Medications (Trade) Dose Ordered Sig/Gia Start Time Stop Time Status Last Admin Dose Admin Acetaminophen (Tylenol) 650 mg QHS 11/29/20 21:00 12/14/20 21:32 650 MG Acetaminophen/ Hydrocodone Bitart (Lortab 325) 1 tab PRN Q4HRS PRN 12/05/20 20:00 12/13/20 10:21 1 TAB Acetaminophen/ Hydrocodone Bitart (Lortab 5/325) 1 tab PRN Q4HRS PRN 11/28/20 22:45 12/05/20 19:50 DC 12/05/20 17:38 1 TAB Albumin Human 200 ml @ 200 mls/hr 1X PRN PRN 12/12/20 12:00 12/12/20 17:59 DC Aspirin (Aspirin Chewable) 81 mg DAILY 11/30/20 09:00 12/14/20 08:56 81 MG Atorvastatin Calcium (Lipitor) 20 mg QHS 11/29/20 21:00 12/14/20 21:31 20 MG Azithromycin 250 ml @ 250 mls/hr DAILY ONCE 11/30/20 09:00 11/30/20 09:59 UNV Azithromycin 500 mg/Sodium Chloride 250 ml @ 250 mls/hr Q24H 11/29/20 15:00 11/29/20 13:50 DC Benzocaine (Hurricaine One) 1 spray STK-MED ONCE 12/05/20 10:06 12/05/20 10:07 DC Carvedilol (Coreg) 3.125 mg BIDWMEALS 12/01/20 12:00 12/05/20 20:11 DC 12/03/20 16:39 3.125 MG Ceftriaxone Sodium (Rocephin) 2 gm Q24H 11/29/20 14:00 12/01/20 09:19 DC 11/30/20 13:21 2 GM Daptomycin 500 mg/ Sodium Chloride 50 ml @ 100 mls/hr Q48H 12/13/20 10:00 12/13/20 14:06 100 MLS/HR Daptomycin 580 mg/ Sodium Chloride 50 ml @ 100 mls/hr Q24H 12/01/20 07:30 12/01/20 09:19 DC 12/01/20 08:52 100 MLS/HR Dexamethasone Sodium Phosphate (Decadron) 4 mg STK-MED ONCE 12/04/20 11:26 12/04/20 11:26 DC Docusate Sodium (Colace) 100 mg BID 12/03/20 21:00 12/09/20 08:00 100 MG Epoetin Krishna-epbx (RETACRIT for ESRD PTS) 10,000 unit MoWeFr@2100 12/14/20 21:00 12/14/20 21:32 10,000 UNIT Fentanyl Citrate (Fentanyl 2ml Vial) 100 mcg STK-MED ONCE 12/04/20 11:26 12/04/20 11:26 DC Furosemide (Lasix) 40 mg DAILY 12/01/20 12:00 12/07/20 14:46 DC 12/07/20 08:28 40 MG Hydromorphone HCl (Dilaudid) 0.5 mg PRN Q10MIN PRN 12/04/20 09:30 12/05/20 09:29 DC Influenza Virus Vaccine Quadrival (Flulaval Quad [id number] Syringe) 0.5 ml ONCE ONCE 11/29/20 09:00 11/29/20 09:01 DC 11/29/20 10:06 0.5 ML Info (PHARMACY MONITORING -- do not chart) 1 each PRN DAILY PRN 12/15/20 07:00 12/15/20 07:00 DC Lactobacillus Rhamnosus (Culturelle) 1 cap BID 11/29/20 21:00 12/14/20 21:31 1 CAP Lidocaine HCl (Buffered Lidocaine 1%) 4 ml 1X ONCE 12/12/20 13:15 12/12/20 13:18 DC 12/12/20 13:11 4 ML Lidocaine HCl (Lidocaine 1% 20ml Vial) 10 ml 1X ONCE 12/01/20 16:00 12/01/20 16:01 DC Lidocaine HCl (Lidocaine Pf 2% Vial) 5 ml STK-MED ONCE 12/04/20 10:43 12/04/20 10:43 DC Lidocaine HCl (Viscous Lidocaine) 15 ml STK-MED ONCE 12/05/20 10:06 12/05/20 10:06 DC Lidocaine HCl (Xylocaine 2% Topical 30gm Tube) 30 hiro STK-MED ONCE 12/05/20 10:06 12/05/20 10:06 DC Metoprolol Succinate (Toprol Xl) 25 mg DAILY 12/09/20 09:00 12/14/20 12:32 25 MG Morphine Sulfate (Morphine Sulfate) 1 mg PRN Q10MIN PRN 12/04/20 09:30 12/05/20 09:29 DC Nafcillin Sodium 2 gm/Dextrose 100 ml @ 200 mls/hr Q4HRS 12/01/20 10:00 12/15/20 04:51 200 MLS/HR Ondansetron HCl (Zofran) 4 mg STK-MED ONCE 12/04/20 11:26 12/04/20 11:26 DC Phenylephrine HCl (PHENYLEPHRINE in 0.9% NACL PF) 1 mg STK-MED ONCE 12/04/20 10:43 12/04/20 10:43 DC Phytonadione (Vitamin K Ampule) 10 mg 1X ONCE 12/03/20 11:00 12/03/20 11:01 DC 12/03/20 11:17 10 MG Polyethylene Glycol (miraLAX PACKET) 17 gm PRN DAILY PRN 12/03/20 19:00 12/06/20 09:16 17 GM Potassium Chloride/Water 100 ml @ 50 mls/hr 1X ONCE 11/28/20 14:45 11/28/20 16:44 DC 11/28/20 16:20 50 MLS/HR Potassium Chloride (Klor-Con) 20 meq 1X ONCE 12/10/20 19:00 12/10/20 19:01 DC 12/10/20 18:52 20 MEQ Prochlorperazine Edisylate (Compazine) 5 mg PACU PRN PRN 12/04/20 09:30 12/05/20 09:29 DC Propofol (Diprivan) 200 mg STK-MED ONCE 12/05/20 09:29 12/05/20 09:30 DC Ringer's Solution 1,000 ml @ 30 mls/hr Q24H 12/04/20 09:30 12/04/20 21:29 DC Sevoflurane (Ultane) 60 ml STK-MED ONCE 12/04/20 11:14 12/04/20 11:14 DC Sodium Chloride 1,000 ml @ 400 mls/hr Q2H30M PRN 12/15/20 07:00 12/15/20 18:59 Sodium Chloride (Normal Saline Flush) 10 ml 1X PRN PRN 12/12/20 12:00 12/13/20 11:59 DC Sodium Chloride (Saline Mist Nasal) 1 hiro PRN Q1HR PRN 12/02/20 20:45 12/03/20 00:46 1 HIRO Warfarin Sodium (Coumadin) 3.75 mg DAILY 11/30/20 09:00 UNV Zolpidem Tartrate (Ambien) 5 mg PRN QHS PRN 12/05/20 20:00 12/14/20 21:32 5 MG Lab Laboratory Tests Test 12/15/20 06:40 Sodium Level 134 mmol/L (136-145) Potassium Level 4.2 mmol/L (3.5-5.1) Chloride Level 98 mmol/L (98-107) Carbon Dioxide Level 31 mmol/L (21-32) Anion Gap 5 (6-14) Blood Urea Nitrogen 41 mg/dL (8-26) Creatinine 4.2 mg/dL (0.7-1.3) Estimated GFR (Cockcroft-Gault) 13.6 Glucose Level 90 mg/dL (70-99) Calcium Level 7.1 mg/dL (8.5-10.1) Results All relevant outside records, renal labs, imaging studies, telemetry/EKG's were reviewed. Justicifation of Admission Dx: Justifications for Admission: Justification of Admission Dx: N/A MERLE QUIROZ MD Dec 15, 2020 11:18
--- NOTE | 2020-12-15 11:27 | PDOC ---
LILLIANA AZEVEDO TROUBLE TRACER 12/15/20 1126: CARDIO Progress Notes Date and Time Date of Service 12/15/20 Time of Evaluation 1125 Subjective Subjective: No Chest Pain, No shortness of breath, No Palpitations Vitals Vitals Vital Signs Date Time Temp Pulse Resp B/P (MAP) Pulse Ox O2 Delivery O2 Flow Rate FiO2 12/15/20 07:00 98.2 63 24 100/49 (66) 94 Room Air 98.2 12/15/20 04:00 3.0 Weight Weight [ ] Input and Output Intake and Output Intake and Output 12/15/20 07:00 Intake Total 700 ml Output Total 0 ml Balance 700 ml Intake Oral 500 ml IV Total 200 ml Output Urine Total 0 ml # Bowel Movements 1 Laboratory Labs Laboratory Tests Test 12/15/20 06:40 Sodium Level 134 mmol/L (136-145) Potassium Level 4.2 mmol/L (3.5-5.1) Chloride Level 98 mmol/L (98-107) Carbon Dioxide Level 31 mmol/L (21-32) Anion Gap 5 (6-14) Blood Urea Nitrogen 41 mg/dL (8-26) Creatinine 4.2 mg/dL (0.7-1.3) Estimated GFR (Cockcroft-Gault) 13.6 Glucose Level 90 mg/dL (70-99) Calcium Level 7.1 mg/dL (8.5-10.1) Microbiology Micro Microbiology 12/07/20 Urine Culture - Final, Complete 12/05/20 Blood Culture - Final, Complete NO GROWTH AFTER 5 DAYS 12/04/20 Gram Stain - Final, Complete 12/04/20 Aerobic and Anaerobic Culture - Final, Complete Review of Systems Constitutional: yes: alert, oriented Ears/Nose/Throat: Yes: no symptom reported Eyes: Yes: no symptom reported Pulmonary: Yes no symptom reported Cardiovascular: Yes edema Gastrointestional: Yes: no symptom reported Genitourinary: Yes: no symptom reported Musculoskeletal: Yes: no symptom reported Skin: Yes no symptom reported Psychiatric/Neurological: Yes: no symptom reported Endocrine: Yes: no symptom reported Physical Exam HEENT: Neck Supple W Full Motion Chest: Symmetric LUNGS: Other (diminished bases) Heart: other (V paced with underlying AFIB. rate controlled ) Abdomen: Soft N/T Extremities: Other (1+ bilateral LE edema ) Neurology: alert, oriented, follow commands Assessment Assessment 1. Weakness, mechanical fall with right knee effusion: s/p I & D 2. Sepsis, MSSA bacteremia: no intracardiac vegetation per SOO. 3. SSS, s/p PPM. generator change (Cearnatronic) 11/01/2020. normal function 4. CAD: clinically stable 5. Permanent AFIB: rate controlled with intermittent v-pacing. 6. Coagulopathy due to warfarin; OAC held. s/p vit K 7. Chronic diastolic CHF; echo with normal EF and WM 8. GUERO; Cr ^ 4.2. HD initiated 9. HTN: controlled 10. HLP: on statin 11. Anemia; hgb drift to 7. No obvious bleeding Recommendations Continue ASA unless bleeding noted Poor candidate for OAC given anemia, fall risk Transfuse as warranted Secondary prevention Metoprolol for rate control Avoid nephrotoxins Fluid offloading via HD Ongoing treatment of sepsis/bacteremia per ID team Supportive care Consider outpatient referral of LAAO Justicifation of Admission Dx: Justifications for Admission: Justification of Admission Dx: N/A IRMA GONZALES MD 12/16/20 0558: CARDIO Progress Notes Assessment Assessment Patient seen and examined. Agree with POSTULANT's assessment and plan Perm AF rate controlled - prob poor alf AC candidate Ac on chr diast HF better compensated CAD, SSS s/p PPM stable SOO did not show any intracardiac thrombus or vegetation Continue treatment of sepsis/bacteremia per ID team Continue HD per nephrology team We will consider outpatient referral for LAAO procedure LILLIANA AZEVEDO APRN Dec 15, 2020 11:26 IRMA GONZALES MD Dec 16, 2020 05:58
[2020-12-15 11:35] LABS: BASO % 0 % (0-3); EOS # 0.8 x10^3/uL (0.0-0.7); EOS % 8 % (0-3); LYMPH # 1.1 x10^3/uL (1.0-4.8); LYMPH % 11 % (24-48); MEAN CORPUSCULAR HEMOGLOBIN 30 pg (25-35); MEAN CORPUSCULAR HGB CONC 34 g/dL (31-37); MEAN CORPUSCULAR VOLUME 90 fL (79-100); MONO # 0.7 x10^3/uL (0.0-1.1); MONO % 7 % (0-9); NEUT # 7.2 x10^3/uL (1.8-7.7); NEUT % 74 % (31-73); PLATELET COUNT 381 x10^3/uL (140-400); RED CELL DISTRIBUTION WIDTH 16.2 % (11.5-14.5); WHITE BLOOD COUNT 9.8 x10^3/uL (4.0-11.0)
[2020-12-15 11:38] LABS: HEMATOCRIT 20.8 % (39.0-53.0)
[2020-12-15] MEDS: ASPIRIN CHEWABLE 81 MG TABLET. PO SCH (12:20)
[2020-12-15] MEDS: LACTOBACILLUS RHAMNOSUS GG 1 CAPSULE. PO SCH ×2 (12:20→21:21)
[2020-12-15 15:00] VITALS: BP 117/51
[2020-12-15] MEDS: DAPTOmycin (GENERIC) IVPB 500 MG in IV NORMAL SALINE 50ML 50 ML IV SCH (17:09)
[2020-12-15 19:28] VITALS: BP 96/40
[2020-12-15] MEDS: ZOLPIDEM 5 MG TABLET. PO PRN (21:21)
[2020-12-15] MEDS: ATORVASTATIN CALCIUM 20 MG TABLET PO SCH (21:21)
[2020-12-15] MEDS: ACETAMINOPHEN 325 MG TABLET. PO SCH (21:21)
[2020-12-15] MEDS: HYDROcodone/APAP 10/325 1 TAB TABLET PO PRN (21:29)
[2020-12-15 23:45] VITALS: BP 91/44
[2020-12-16 03:19] VITALS: BP 93/45
[2020-12-16] MEDS: NAFCILLIN 2 GM in IV DEXTROSE 5% 100ML 100 ML IV SCH ×6 (03:43→23:50)
[2020-12-16 07:00] VITALS: BP 143/75
[2020-12-16 07:26] LABS: CALCIUM 7.3 mg/dL (8.5-10.1); CREATININE 3.3 mg/dL (0.7-1.3)
[2020-12-16] MEDS ORDERED: NAFC2FRO IV (08:12)
--- NOTE | 2020-12-16 08:14 | SNU/HH DC ---
DISCHARGE ORDERS DISCHARGE INFORMATION: DISCHARGE DATE: Dec 16, 2020 FINAL DIAGNOSIS Problems Medical Problems: (1) Hypokalemia Status: Acute (2) Person under investigation for COVID-19 Status: Acute (3) Pneumonia Status: Acute (4) Sepsis Status: Acute CONDITION ON DISCHARGE: Stable CODE STATUS: Code Status: Full FPC: SNF STAY <30 DAYS: Yes HOSPICE: HOSPICE: No HOSPICE EVAL & TREAT: No LTAC: ADMIT TO LTAC: No POST DISCHARGE ORDERS: ACTIVITY ORDERS: Activity as tolerated, Avoid exertion WEIGHT BEARING STATUS: Other, see below DIET AFTER DISCHARGE: Regular WOUND/INCISION CARE: Keep wound/cast CDI, Reinforce dressing PRN CHECKS AFTER DISCHARGE: CHECKS AFTER DISCHARGE: Check blood press - daily TREATMENT/EQUIPMENT ORDERS: Physical Therapy For: Evalulation/Treatment Occupational Therapy For: Evaluation/Treatment DISCHARGE MEDICATIONS: Home Meds Active Scripts Nafcillin In Dextrose,Iso-Osm (NAFCILLIN 2 GM/ 100 ML INJ) 2 Gm/100 Ml Froz.piggy, 2 GM IV Q4HRS for sepsis for 30 Days, #180 EACH Prov:NINA HOOK MD 12/16/20 Reported Medications Acetaminophen (ACETAMINOPHEN) 325 Mg Tablet, 650 MG PO QHS for pain, TAB 11/28/20 Aspirin (ASPIRIN) 81 Mg Tab.chew, 1 TAB PO DAILY for PRESCRIBED, #30 TAB 3 Refills 11/01/20 Multivit-Min/Folic/Vit K/Lycop (Men's Multivitamin Tablet) 1 Each Tablet, 1 EACH PO DAILY for supplement, TAB 07/19/20 Pravastatin Sodium (PRAVASTATIN SODIUM) 80 Mg Tablet, 1 TAB PO DAILY for cholesterol, #30 TAB 5 Refills 03/02/19 Furosemide (LASIX) 40 Mg Tablet, 1 TAB PO DAILY, #90 TAB 1 Refill 01/11/14 Docusate Sodium (COLACE) 100 Mg Capsule, 1 CAP PO PRN BID PRN for CONSTIPATION, #30 CAP 01/11/14 Discontinued Reported Medications Carvedilol (CARVEDILOL ) 6.25 Mg Tablet, 6.25 MG PO DAILY for CARDIAC, TAB 07/19/20 Lisinopril (LISINOPRIL) 10 Mg Tablet, 1 TAB PO DAILY, #30 TAB 5 Refills 01/11/14 Warfarin Sodium (COUMADIN) 2.5 Mg Tablet, 1.5 TAB PO DAILY for atrial fibrillation, #30 TAB 3 Refills 01/11/14 NINA HOOK MD Dec 16, 2020 08:14
[2020-12-16] MEDS: LACTOBACILLUS RHAMNOSUS GG 1 CAPSULE. PO SCH ×2 (08:16→21:22)
[2020-12-16] MEDS: DOCUSATE SODIUM 100 MG CAPSULE. PO SCH ×3 (08:17→21:22)
[2020-12-16] MEDS: ASPIRIN CHEWABLE 81 MG TABLET. PO SCH (08:17)
--- NOTE | 2020-12-16 08:19 | DS ---
DATE OF DISCHARGE: 12/16/2020 PRIMARY DIAGNOSIS: MSSA sepsis. ADDITIONAL DIAGNOSES: Coagulopathy from warfarin; acute renal failure requiring dialysis and ongoing dialysis at discharge with expected recovery by Renal; septic right knee with incision and drainage and washing of the same by Ortho; history of sick sinus syndrome with pacemaker; hypertension; hyperlipidemia. CHIEF COMPLAINT AND HISTORY OF PRESENT ILLNESS: This 85-year-old male presented to the Emergency Room with generalized weakness going on for the last week or two. He had a fall with his entire right side in pain and inability to do self-care. He had some chills. He did not feel he had any fever, had a minimal cough. He was found to have leukocytosis with possible pneumonia on admission. SUMMARY OF STAY: The patient was admitted, started on antibiotics. Blood cultures grew out MSSA and despite early antibiotics, continued to grow out the same on subsequent blood cultures, eventually had an incision and drainage as well as washing of the right knee by Ortho with MSSA growing out of that after that blood cultures became negative. He did have abnormal renal function on admission, which progressed to renal failure requiring dialysis, which he was still needing at discharge with Renal feeling that he would have recovery of his renal function at some point. He was going to need at least another month's worth of IV antibiotics at the time of discharge and it was felt he could go to SNU. He was quite weak and will need a lot of rehab in addition to the ongoing dialysis until it is no longer needed and finishing out the course of antibiotics. DISPOSITION: The patient is discharged to SNU. Please see orders there regarding diet, medication, activity, etc. We will follow up with him after discharge. ELLEN DR: Danielle TID: [phone]
[2020-12-16] MEDS: METOPROLOL SUCC 24HR ER 25 MG TAB.ER.24H. PO SCH (08:20)
[2020-12-16 11:00] VITALS: BP 99/48
--- NOTE | 2020-12-16 12:11 | NUR ---
SW following. Discussed with RN, discharge order for pt to go to SNF. However dialysis has not been determined. Pt cannot go to SNF until dialysis is determined. Insurance auth also needs to be resubmitted. Awaiting confirmation of dialysis need. SW will continue to follow.
--- NOTE | 2020-12-16 12:47 | PDOC ---
DATE OF SERVICE DATE: 12/16/20 TIME: 12:44 SUBJECTIVE ROS Stable , Denies N/V. No SOB OBJECTIVE Vital Signs Vital Signs Date Time Temp Pulse Resp B/P (MAP) Pulse Ox O2 Delivery O2 Flow Rate FiO2 12/16/20 11:00 97.9 53 20 99/48 (65) 97 Room Air 97.9 12/16/20 08:00 2.0 I & 0 Intake and Output 12/16/20 07:00 Intake Total 610 ml Output Total 0 ml Balance 610 ml Intake Oral 610 ml Output Urine Total 0 ml # Voids 1 # Bowel Movements 2 PHYSICAL EXAM Physical Exam GENERAL: no acute distress. HEENT: Normocephalic, atraumatic. Anicteric. NECK: Supple, no JVD. LUNGS: decreased breath sounds at the bases, non labored . HEART: S1, S2, systolic murmur present. Pacemaker + ABDOMEN: Soft, nontender, nondistended. EXTREMITIES: post surgery dressing Rt knee + DERM: no generalized rash. NEUROLOGIC: Alert and oriented x 3, grossly nonfocal. DIAGNOSIS/ASSESSMENT Assessment & Plan GUERO - ATN 2/ 2 Hypotension/ Sepsis - worsening renal function, Non Oliguric . Requiring Dialysis 1st on 12/12 ; No improvement in renal function. Currently TTS schedule . Re-Eval in the morning Renal US unremarkable. Baseline normal Cr on 11/30 ; UA no eosinophils, No casts, Cx No growth . Monitor , supportive care , strict I/O (not recorded ) Bladder scan ordeed - Not sure if done .Monitor for Renal recovery HypoNatremia-resolved Anemia- Noted decrease in Hgb 11/14 - Copious amounts of blood noted by nursing last night right knee suture site . Defer to Primary/Ortho Sepsis from Gram-positive bacteremia - MSSA bacteremia History of PPM.H/O recent battery exchange. Rt Knee pain and swelling status post synovial aspirate WBC 30,000 RBC 66,000; -Cultures staph aureus History of atrial fibrillation. Hypertension- BP 's low, antihypertensives (ESTEFANY-i, Coreg, Lasix ) held COMMENT/RELEVANT DATA Meds Current Medications Medications (Trade) Dose Ordered Sig/Gia Start Time Stop Time Status Last Admin Dose Admin Acetaminophen (Tylenol) 650 mg QHS 11/29/20 21:00 12/15/20 21:21 650 MG Acetaminophen/ Hydrocodone Bitart (Lortab 10325) 1 tab PRN Q4HRS PRN 12/05/20 20:00 12/15/20 21:29 1 TAB Acetaminophen/ Hydrocodone Bitart (Lortab 5/325) 1 tab PRN Q4HRS PRN 11/28/20 22:45 12/05/20 19:50 DC 12/05/20 17:38 1 TAB Albumin Human 200 ml @ 200 mls/hr 1X PRN PRN 12/12/20 12:00 12/12/20 17:59 DC Aspirin (Aspirin Chewable) 81 mg DAILY 11/30/20 09:00 12/16/20 08:17 81 MG Atorvastatin Calcium (Lipitor) 20 mg QHS 11/29/20 21:00 12/15/20 21:21 20 MG Azithromycin 250 ml @ 250 mls/hr DAILY ONCE 11/30/20 09:00 11/30/20 09:59 UNV Azithromycin 500 mg/Sodium Chloride 250 ml @ 250 mls/hr Q24H 11/29/20 15:00 11/29/20 13:50 DC Benzocaine (Hurricaine One) 1 spray STK-MED ONCE 12/05/20 10:06 12/05/20 10:07 DC Carvedilol (Coreg) 3.125 mg BIDWMEALS 12/01/20 12:00 12/05/20 20:11 DC 12/03/20 16:39 3.125 MG Ceftriaxone Sodium (Rocephin) 2 gm Q24H 11/29/20 14:00 12/01/20 09:19 DC 11/30/20 13:21 2 GM Daptomycin 500 mg/ Sodium Chloride 50 ml @ 100 mls/hr Q48H 12/13/20 10:00 12/15/20 17:09 100 MLS/HR Daptomycin 580 mg/ Sodium Chloride 50 ml @ 100 mls/hr Q24H 12/01/20 07:30 12/01/20 09:19 DC 12/01/20 08:52 100 MLS/HR Dexamethasone Sodium Phosphate (Decadron) 4 mg STK-MED ONCE 12/04/20 11:26 12/04/20 11:26 DC Docusate Sodium (Colace) 100 mg BID 12/03/20 21:00 12/15/20 21:21 100 MG Epoetin Krishna-epbx (RETACRIT for ESRD PTS) 10,000 unit MoWeFr@2100 12/14/20 21:00 12/14/20 21:32 10,000 UNIT Fentanyl Citrate (Fentanyl 2ml Vial) 100 mcg STK-MED ONCE 12/04/20 11:26 12/04/20 11:26 DC Furosemide (Lasix) 40 mg DAILY 12/01/20 12:00 12/07/20 14:46 DC 12/07/20 08:28 40 MG Hydromorphone HCl (Dilaudid) 0.5 mg PRN Q10MIN PRN 12/04/20 09:30 12/05/20 09:29 DC Influenza Virus Vaccine Quadrival (Flulaval Quad [id number] Syringe) 0.5 ml ONCE ONCE 11/29/20 09:00 11/29/20 09:01 DC 11/29/20 10:06 0.5 ML Info (PHARMACY MONITORING -- do not chart) 1 each PRN DAILY PRN 12/15/20 07:00 12/15/20 07:00 DC Lactobacillus Rhamnosus (Culturelle) 1 cap BID 11/29/20 21:00 12/16/20 08:16 1 CAP Lidocaine HCl (Buffered Lidocaine 1%) 4 ml 1X ONCE 12/12/20 13:15 12/12/20 13:18 DC 12/12/20 13:11 4 ML Lidocaine HCl (Lidocaine 1% 20ml Vial) 10 ml 1X ONCE 12/01/20 16:00 12/01/20 16:01 DC Lidocaine HCl (Lidocaine Pf 2% Vial) 5 ml STK-MED ONCE 12/04/20 10:43 12/04/20 10:43 DC Lidocaine HCl (Viscous Lidocaine) 15 ml STK-MED ONCE 12/05/20 10:06 12/05/20 10:06 DC Lidocaine HCl (Xylocaine 2% Topical 30gm Tube) 30 hiro STK-MED ONCE 12/05/20 10:06 12/05/20 10:06 DC Metoprolol Succinate (Toprol Xl) 25 mg DAILY 12/09/20 09:00 12/14/20 12:32 25 MG Morphine Sulfate (Morphine Sulfate) 1 mg PRN Q10MIN PRN 12/04/20 09:30 12/05/20 09:29 DC Nafcillin Sodium 2 gm/Dextrose 100 ml @ 200 mls/hr Q4HRS 12/01/20 10:00 12/16/20 12:20 200 MLS/HR Ondansetron HCl (Zofran) 4 mg STK-MED ONCE 12/04/20 11:26 12/04/20 11:26 DC Phenylephrine HCl (PHENYLEPHRINE in 0.9% NACL PF) 1 mg STK-MED ONCE 12/04/20 10:43 12/04/20 10:43 DC Phytonadione (Vitamin K Ampule) 10 mg 1X ONCE 12/03/20 11:00 12/03/20 11:01 DC 12/03/20 11:17 10 MG Polyethylene Glycol (miraLAX PACKET) 17 gm PRN DAILY PRN 12/03/20 19:00 12/06/20 09:16 17 GM Potassium Chloride/Water 100 ml @ 50 mls/hr 1X ONCE 11/28/20 14:45 11/28/20 16:44 DC 11/28/20 16:20 50 MLS/HR Potassium Chloride (Klor-Con) 20 meq 1X ONCE 12/10/20 19:00 12/10/20 19:01 DC 12/10/20 18:52 20 MEQ Prochlorperazine Edisylate (Compazine) 5 mg PACU PRN PRN 12/04/20 09:30 12/05/20 09:29 DC Propofol (Diprivan) 200 mg STK-MED ONCE 12/05/20 09:29 12/05/20 09:30 DC Ringer's Solution 1,000 ml @ 30 mls/hr Q24H 12/04/20 09:30 12/04/20 21:29 DC Sevoflurane (Ultane) 60 ml STK-MED ONCE 12/04/20 11:14 12/04/20 11:14 DC Sodium Chloride 1,000 ml @ 400 mls/hr Q2H30M PRN 12/15/20 07:00 12/15/20 18:59 DC Sodium Chloride (Normal Saline Flush) 10 ml 1X PRN PRN 12/12/20 12:00 12/13/20 11:59 DC Sodium Chloride (Saline Mist Nasal) 1 hiro PRN Q1HR PRN 12/02/20 20:45 12/03/20 00:46 1 HIRO Warfarin Sodium (Coumadin) 3.75 mg DAILY 11/30/20 09:00 UNV Zolpidem Tartrate (Ambien) 5 mg PRN QHS PRN 12/05/20 20:00 12/15/20 21:21 5 MG Lab Laboratory Tests Test 12/16/20 05:45 Sodium Level 137 mmol/L (136-145) Potassium Level 4.0 mmol/L (3.5-5.1) Chloride Level 99 mmol/L (98-107) Carbon Dioxide Level 30 mmol/L (21-32) Anion Gap 8 (6-14) Blood Urea Nitrogen 10 mg/dL (8-26) Creatinine 3.3 mg/dL (0.7-1.3) Estimated GFR (Cockcroft-Gault) 18.0 Glucose Level 92 mg/dL (70-99) Calcium Level 7.3 mg/dL (8.5-10.1) Results All relevant outside records, renal labs, imaging studies, telemetry/EKG's were reviewed. Justicifation of Admission Dx: Justifications for Admission: Justification of Admission Dx: N/A MERLE QUIROZ MD Dec 16, 2020 12:47
[2020-12-16 15:00] VITALS: BP 99/48
[2020-12-16 19:00] VITALS: BP 110/47
[2020-12-16] MEDS: ACETAMINOPHEN 325 MG TABLET. PO SCH (21:22)
[2020-12-16] MEDS: ZOLPIDEM 5 MG TABLET. PO PRN (21:22)
[2020-12-16] MEDS: ATORVASTATIN CALCIUM 20 MG TABLET PO SCH (21:22)
[2020-12-16] MEDS: EPOETIN ALFA-EPBX for ESRD 20,000 UNIT/ML VIAL. SQ SCH (21:23)
[2020-12-16 23:45] VITALS: BP 104/52
[2020-12-17 03:58] VITALS: BP 104/44
[2020-12-17] MEDS: NAFCILLIN 2 GM in IV DEXTROSE 5% 100ML 100 ML IV SCH ×5 (04:00→20:36)
[2020-12-17 05:28] LABS: CALCIUM 7.2 mg/dL (8.5-10.1); CREATININE 4.4 mg/dL (0.7-1.3); GFR 12.9; POTASSIUM 4.1 mmol/L (3.5-5.1)
[2020-12-17 07:00] VITALS: BP 101/49
[2020-12-17] MEDS: DOCUSATE SODIUM 100 MG CAPSULE. PO SCH ×3 (09:00→19:44)
[2020-12-17] MEDS: LACTOBACILLUS RHAMNOSUS GG 1 CAPSULE. PO SCH ×3 (09:32→20:37)
[2020-12-17] MEDS: ASPIRIN CHEWABLE 81 MG TABLET. PO SCH ×2 (09:32→14:21)
[2020-12-17] MEDS: METOPROLOL SUCC 24HR ER 25 MG TAB.ER.24H. PO SCH ×2 (09:33→14:21)
[2020-12-17] MEDS ORDERED: IV NORMAL SALINE 1000ML BAG 1,000 ML IV PRN ×2 (10:30)
[2020-12-17] MEDS ORDERED: ALBUMIN HUMAN 25% 200 ML IV PRN (10:30)
[2020-12-17 11:00] VITALS: BP 119/75
--- NOTE | 2020-12-17 11:03 | PDOC ---
Renal-Progress Notes Subjective Notes Notes STILL VERY WEAK FEELING AND TIRED History of Present Illness Hx of present illness NO ACUTE CHANGES Vitals Vitals Vital Signs Date Time Temp Pulse Resp B/P (MAP) Pulse Ox O2 Delivery O2 Flow Rate FiO2 12/17/20 07:00 97.4 60 16 101/49 (66) 98 97.4 12/16/20 20:00 Nasal Cannula 2.0 Weight Weight [ ] I.O. Intake and Output Intake and Output 12/17/20 07:00 Intake Total 150 ml Output Total 1 ml Balance 149 ml Intake Oral 150 ml Output Urine Total 0 ml Stool Total 1 ml # Voids 1 Labs Labs Laboratory Tests Test 12/17/20 04:30 Sodium Level 136 mmol/L (136-145) Potassium Level 4.1 mmol/L (3.5-5.1) Chloride Level 99 mmol/L (98-107) Carbon Dioxide Level 30 mmol/L (21-32) Anion Gap 7 (6-14) Blood Urea Nitrogen 32 mg/dL (8-26) Creatinine 4.4 mg/dL (0.7-1.3) Estimated GFR (Cockcroft-Gault) 12.9 Glucose Level 88 mg/dL (70-99) Calcium Level 7.2 mg/dL (8.5-10.1) Micro Micro Microbiology 12/07/20 Urine Culture - Final, Complete 12/05/20 Blood Culture - Final, Complete NO GROWTH AFTER 5 DAYS 12/04/20 Gram Stain - Final, Complete 12/04/20 Aerobic and Anaerobic Culture - Final, Complete Review of Systems Constitutional: yes: alert, oriented Ears/Nose/Throat: Yes: no symptom reported Eyes: Yes: no symptom reported Pulmonary: Yes no symptom reported Cardiovascular: Yes edema Gastrointestional: Yes: no symptom reported Genitourinary: Yes: no symptom reported Musculoskeletal: Yes: no symptom reported Skin: Yes no symptom reported Psychiatric/Neurological: Yes: no symptom reported Endocrine: Yes: no symptom reported Physical Exam General Appearance: no apparent distress Skin: warm Respiratory: decreased breath sounds Heart: S1S2 Abdomen: soft, bowel sounds present Genitourinary: bladder flat Extremities: edema Neurology: alert, oriented, follow commands Musculoskeletal: Osteoarthritis Assessment Assessment IMP ECVD HYPOTENSION-BETTER GUERO DUE TO ABOVE-ATN SEPSIS RIGHT KNEE EFFUSION SSS WITH PPM-RECENT BATTERY EXCHANGE CHRONIC AFIB ANTICOAGULATION PLAN LOOK FOR RENAL RECOVERY CONT HD FOR NOW HD TODAY UF ABOUT 3.5-4.0 LITERS WILL FOLLOW ALFREDO EASTON MD Dec 17, 2020 11:03
[2020-12-17] MEDS ORDERED: DIALYSIS PATIENT. MC PRN ×2 (11:15)
[2020-12-17 15:00] VITALS: BP 93/42
[2020-12-17] MEDS: DAPTOmycin (GENERIC) IVPB 500 MG in IV NORMAL SALINE 50ML 50 ML IV SCH (17:38)
[2020-12-17] MEDS ORDERED: DOCUSATE SODIUM 100 MG CAPSULE. PO PRN (17:45)
[2020-12-17 19:00] VITALS: BP 104/45
[2020-12-17] MEDS: ACETAMINOPHEN 325 MG TABLET. PO SCH (20:37)
[2020-12-17] MEDS: ATORVASTATIN CALCIUM 20 MG TABLET PO SCH (20:37)
[2020-12-17] MEDS: ZOLPIDEM 5 MG TABLET. PO PRN (20:42)
[2020-12-17 23:00] VITALS: BP 101/43
[2020-12-18] VITALS (13 sets, daily range): BP systolic 90–112; BP diastolic 40–49
[2020-12-18] MEDS: NAFCILLIN 2 GM in IV DEXTROSE 5% 100ML 100 ML IV SCH ×6 (00:19→20:29)
--- NOTE | 2020-12-18 03:30 | PN ---
DATE: 12/17/2020 LOCATION: He is in room 514. SUBJECTIVE: This 85-year-old male remains hospitalized with MSSA sepsis from the right knee source. He has developed acute renal failure, nonoliguric and he is undergoing dialysis with expected renal recovery with normal creatinine, at admission a normal renal ultrasound. I dictated the discharge summary, had yesterday for case management request, but he did not go anywhere, apparently because of the dialysis, which I questioned before, but they felt that the place he was going do dialysis. OBJECTIVE: VITAL SIGNS: Stable. He is afebrile. GENERAL: He is awake and alert. CHEST: Clear. HEART: Regular. ABDOMEN: Benign. EXTREMITIES: Right knee is dressed. LABORATORY DATA: Creatinine increased this morning of 4.4. We have not checked a hemoglobin in a couple of days and we will recheck in the morning, was last at 7. ASSESSMENT: 1. Methicillin-susceptible Staphylococcus aureus sepsis, right knee source. 2. Acute renal failure. 3. Anemia. 4. History of atrial fibrillation. PLAN: Continue present antibiotics. Follow labs. Hopefully, kidney function will improve. We were able to stop dialysis. SHAMEKA/JAIRO DR: Danielle TID: [id number]
[2020-12-18 07:48] LABS: BASO % 1 % (0-3); EOS % 12 % (0-3); LYMPH % 12 % (24-48); MEAN CORPUSCULAR HEMOGLOBIN 31 pg (25-35); MEAN CORPUSCULAR HGB CONC 34 g/dL (31-37); MEAN CORPUSCULAR VOLUME 91 fL (79-100); MONO # 0.6 x10^3/uL (0.0-1.1); MONO % 8 % (0-9); NEUT # 5.5 x10^3/uL (1.8-7.7); NEUT % 68 % (31-73); PLATELET COUNT 289 x10^3/uL (140-400); RED BLOOD COUNT 1.98 x10^6/uL (4.30-5.70); RED CELL DISTRIBUTION WIDTH 17.6 % (11.5-14.5); WHITE BLOOD COUNT 8.1 x10^3/uL (4.0-11.0)
[2020-12-18 07:53] LABS: HEMOGLOBIN 6.2 g/dL (13.0-17.5)
[2020-12-18] MEDS: DOCUSATE SODIUM 100 MG CAPSULE. PO SCH ×2 (08:07→19:33)
[2020-12-18 08:35] LABS: CALCIUM 7.4 mg/dL (8.5-10.1); CREATININE 3.6 mg/dL (0.7-1.3); GFR 16.3; POTASSIUM 4.1 mmol/L (3.5-5.1)
[2020-12-18] MEDS: LACTOBACILLUS RHAMNOSUS GG 1 CAPSULE. PO SCH ×2 (09:59→20:30)
[2020-12-18] MEDS: ASPIRIN CHEWABLE 81 MG TABLET. PO SCH (09:59)
--- NOTE | 2020-12-18 10:42 | PDOC ---
Renal-Progress Notes Subjective Notes Notes NO NEW COMPLAINTS History of Present Illness Hx of present illness STABLE Vitals Vitals Vital Signs Date Time Temp Pulse Resp B/P (MAP) Pulse Ox O2 Delivery O2 Flow Rate FiO2 12/18/20 07:00 98.4 71 16 90/41 (57) 91 Nasal Cannula 2.0 98.4 Weight Weight [ ] I.O. Intake and Output Intake and Output 12/18/20 07:00 Intake Total 840 ml Balance 840 ml Intake Oral 540 ml IV Total 300 ml # Bowel Movements 1 Labs Labs Laboratory Tests Test 12/18/20 06:20 White Blood Count 8.1 x10^3/uL (4.0-11.0) Red Blood Count 1.98 x10^6/uL (4.30-5.70) Hemoglobin 6.2 g/dL (13.0-17.5) Hematocrit 18.0 % (39.0-53.0) Mean Corpuscular Volume 91 fL (79-100) Mean Corpuscular Hemoglobin 31 pg (25-35) Mean Corpuscular Hemoglobin Concent 34 g/dL (31-37) Red Cell Distribution Width 17.6 % (11.5-14.5) Platelet Count 289 x10^3/uL (140-400) Neutrophils (%) (Auto) 68 % (31-73) Lymphocytes (%) (Auto) 12 % (24-48) Monocytes (%) (Auto) 8 % (0-9) Eosinophils (%) (Auto) 12 % (0-3) Basophils (%) (Auto) 1 % (0-3) Neutrophils # (Auto) 5.5 x10^3/uL (1.8-7.7) Lymphocytes # (Auto) 1.0 x10^3/uL (1.0-4.8) Monocytes # (Auto) 0.6 x10^3/uL (0.0-1.1) Eosinophils # (Auto) 1.0 x10^3/uL (0.0-0.7) Basophils # (Auto) 0.0 x10^3/uL (0.0-0.2) Sodium Level 136 mmol/L (136-145) Potassium Level 4.1 mmol/L (3.5-5.1) Chloride Level 99 mmol/L (98-107) Carbon Dioxide Level 30 mmol/L (21-32) Anion Gap 7 (6-14) Blood Urea Nitrogen 25 mg/dL (8-26) Creatinine 3.6 mg/dL (0.7-1.3) Estimated GFR (Cockcroft-Gault) 16.3 Glucose Level 84 mg/dL (70-99) Calcium Level 7.4 mg/dL (8.5-10.1) Micro Micro Microbiology 12/07/20 Urine Culture - Final, Complete 12/05/20 Blood Culture - Final, Complete NO GROWTH AFTER 5 DAYS 12/04/20 Gram Stain - Final, Complete 12/04/20 Aerobic and Anaerobic Culture - Final, Complete Review of Systems Constitutional: yes: alert, oriented Ears/Nose/Throat: Yes: no symptom reported Eyes: Yes: no symptom reported Pulmonary: Yes no symptom reported Cardiovascular: Yes edema Gastrointestional: Yes: no symptom reported Genitourinary: Yes: no symptom reported Musculoskeletal: Yes: no symptom reported Skin: Yes no symptom reported Psychiatric/Neurological: Yes: no symptom reported Endocrine: Yes: no symptom reported Physical Exam General Appearance: no apparent distress Skin: warm Respiratory: decreased breath sounds Heart: S1S2 Abdomen: soft, bowel sounds present Genitourinary: bladder flat Extremities: edema Neurology: alert, oriented, follow commands Musculoskeletal: Osteoarthritis Assessment Assessment IMP ECVD HYPOTENSION-BETTER GUERO DUE TO ABOVE-ATN SEPSIS RIGHT KNEE EFFUSION SSS WITH PPM-RECENT BATTERY EXCHANGE CHRONIC AFIB ANTICOAGULATION ANEMIA PLAN LOOK FOR RENAL RECOVERY CONT HD FOR NOW HD NEXT ON SATURDAY PRBC TODAY PROB NEEDS GI EVAL D/W ATTENDING WILL FOLLOW ALFREDO EASTON MD Dec 18, 2020 10:42
--- NOTE | 2020-12-18 11:29 | PN ---
DATE: 12/18/2020 LOCATION: He is in room 514. SUBJECTIVE: This 85-year-old male remains hospitalized with MSSA sepsis from right knee source. He has developed acute renal failure, nonoliguric, currently on dialysis. I discussed the same with Renal this morning, they are not sure about the recovery at this point. He does feel weak and hemoglobin this morning is down to 6.2 and transfusion has been ordered. I will ask GI to see him regarding blood loss, although there is nothing obvious. OBJECTIVE: VITAL SIGNS: Stable. He is afebrile. GENERAL: He is awake and alert. CHEST: Clear. HEART: Regular. ABDOMEN: Benign. LABORATORY DATA: Creatinine is down to 3.6 this morning, but I believe he had dialysis yesterday. ASSESSMENT: 1. MSSA sepsis, right knee source. 2. Acute renal failure. 3. Anemia requiring transfusion. 4. History of atrial fibrillation. PLAN: Continue present antibiotics, transfuse. Follow labs. Continue dialysis as necessary. ELLEN DR: Danielle TID: [id number]
--- NOTE | 2020-12-18 13:34 | PDOC ---
CARDIOLOGY PROGRESS NOTE SUBJECTIVE: No acute events overnight. No chest pain. Continued weakness. OBJECTIVE: Vital Signs/I&O: Vital Signs Date Time Temp Pulse Resp B/P (MAP) Pulse Ox O2 Delivery O2 Flow Rate FiO2 12/18/20 11:00 97.4 60 16 93/41 (58) 99 Nasal Cannula 2.0 97.4 I & O 12/17/20 12/17/20 12/18/20 15:00 23:00 07:00 Intake Total 240 ml 220 ml 380 ml Balance 240 ml 220 ml 380 ml Objective: GEN.: No apparent distress. Alert and oriented. HEENT: Head is normocephalic, atraumatic NECK: Supple. LUNGS: Clear to auscultation. HEART: RRR, S1, S2 present. Peripheral pulses intact ABDOMEN: Soft, nontender. Positive bowel sounds. EXTREMITIES: Without any cyanosis. NEUROLOGIC: Normal speech, normal tone PSYCHIATRIC: Normal affect, normal mood. SKIN: No ulcerations CURRENT MEDICATIONS: Toprol XL, ASA, Atorvastatin. DIAGNOSTIC TESTING: Labs reviewed. Labs: Laboratory Tests 12/18/20 06:20 Laboratory Tests Test 12/18/20 06:20 White Blood Count 8.1 x10^3/uL (4.0-11.0) Red Blood Count 1.98 x10^6/uL (4.30-5.70) L Hemoglobin 6.2 g/dL (13.0-17.5) *L Hematocrit 18.0 % (39.0-53.0) *L Mean Corpuscular Volume 91 fL (79-100) Mean Corpuscular Hemoglobin 31 pg (25-35) Mean Corpuscular Hemoglobin Concent 34 g/dL (31-37) Red Cell Distribution Width 17.6 % (11.5-14.5) H Platelet Count 289 x10^3/uL (140-400) Neutrophils (%) (Auto) 68 % (31-73) Lymphocytes (%) (Auto) 12 % (24-48) L Monocytes (%) (Auto) 8 % (0-9) Eosinophils (%) (Auto) 12 % (0-3) H Basophils (%) (Auto) 1 % (0-3) Neutrophils # (Auto) 5.5 x10^3/uL (1.8-7.7) Lymphocytes # (Auto) 1.0 x10^3/uL (1.0-4.8) Monocytes # (Auto) 0.6 x10^3/uL (0.0-1.1) Eosinophils # (Auto) 1.0 x10^3/uL (0.0-0.7) H Basophils # (Auto) 0.0 x10^3/uL (0.0-0.2) Sodium Level 136 mmol/L (136-145) Potassium Level 4.1 mmol/L (3.5-5.1) Chloride Level 99 mmol/L (98-107) Carbon Dioxide Level 30 mmol/L (21-32) Anion Gap 7 (6-14) Blood Urea Nitrogen 25 mg/dL (8-26) Creatinine 3.6 mg/dL (0.7-1.3) H Estimated GFR (Cockcroft-Gault) 16.3 Glucose Level 84 mg/dL (70-99) Calcium Level 7.4 mg/dL (8.5-10.1) L ASSESSMENT: 1. Weakness, mechanical fall with right knee effusion: s/p I & D 2. Sepsis, MSSA bacteremia: no intracardiac vegetation per SOO. 3. SSS, s/p PPM. generator change ([employer]) 11/01/2020. normal function 4. CAD: clinically stable 5. Permanent AFIB: rate controlled with intermittent v-pacing. 6. Coagulopathy due to warfarin; OAC held. s/p vit K 7. Chronic diastolic CHF; echo with normal EF and WM 8. GUERO; Cr ^ 4.2. HD initiated 9. HTN: controlled 10. HLP: on statin 11. Anemia; hgb drift to less than 7. Pending PRBC's. PLAN: 1. Continue present medical therapy. No issues on telemetry. 2. Treatment of anemia per primary service. Continue to hold anticoagulation given bleeding. 3. No further CV testing needed at this time. Thanks Justicifation of Admission Dx: Justifications for Admission: Justification of Admission Dx: N/A ALAN ZURITA MD Dec 18, 2020 13:34
[2020-12-18] MEDS: HYDROcodone/APAP 10/325 1 TAB TABLET PO PRN (13:56)
[2020-12-18] MEDS: METOPROLOL SUCC 24HR ER 25 MG TAB.ER.24H. PO SCH (16:06)
[2020-12-18] MEDS: IV NORMAL SALINE 1000ML BAG 1,000 ML IV SCH (20:28)
[2020-12-18] MEDS: ATORVASTATIN CALCIUM 20 MG TABLET PO SCH (20:29)
[2020-12-18] MEDS: ACETAMINOPHEN 325 MG TABLET. PO SCH (20:30)
[2020-12-18] MEDS: ZOLPIDEM 5 MG TABLET. PO PRN (20:30)
[2020-12-19] VITALS (8 sets, daily range): BP systolic 101–141; BP diastolic 44–64
[2020-12-19] MEDS: NAFCILLIN 2 GM in IV DEXTROSE 5% 100ML 100 ML IV SCH ×7 (01:00→23:38)
[2020-12-19] MEDS: SODIUM CHLORIDE 0.65% NASAL SPRAY 45ML BOTTLE. NS PRN ×2 (03:32→12:29)
[2020-12-19 07:28] LABS: BASO # 0.1 x10^3/uL (0.0-0.2); BASO % 1 % (0-3); EOS % 10 % (0-3); HEMATOCRIT 23.3 % (39.0-53.0); HEMOGLOBIN 7.9 g/dL (13.0-17.5); LYMPH # 1.2 x10^3/uL (1.0-4.8); LYMPH % 12 % (24-48); MEAN CORPUSCULAR HEMOGLOBIN 31 pg (25-35); MEAN CORPUSCULAR HGB CONC 34 g/dL (31-37); MEAN CORPUSCULAR VOLUME 91 fL (79-100); MONO # 0.7 x10^3/uL (0.0-1.1); MONO % 7 % (0-9); NEUT # 7.3 x10^3/uL (1.8-7.7); NEUT % 70 % (31-73); PLATELET COUNT 295 x10^3/uL (140-400); RED BLOOD COUNT 2.57 x10^6/uL (4.30-5.70); RED CELL DISTRIBUTION WIDTH 17.2 % (11.5-14.5); WHITE BLOOD COUNT 10.4 x10^3/uL (4.0-11.0)
[2020-12-19 07:34] LABS: CALCIUM 7.5 mg/dL (8.5-10.1); CREATININE 4.6 mg/dL (0.7-1.3); GFR 12.3; POTASSIUM 3.9 mmol/L (3.5-5.1)
[2020-12-19] MEDS ORDERED: DIALYSIS PATIENT. MC PRN ×2 (08:30)
[2020-12-19] MEDS ORDERED: ALBUMIN HUMAN 25% 100 ML IV PRN (08:30)
[2020-12-19] MEDS ORDERED: IV NORMAL SALINE 1000ML BAG 1,000 ML IV PRN ×2 (08:30)
[2020-12-19] MEDS: LACTOBACILLUS RHAMNOSUS GG 1 CAPSULE. PO SCH ×2 (09:00→20:35)
[2020-12-19] MEDS: DOCUSATE SODIUM 100 MG CAPSULE. PO SCH ×2 (09:00→19:27)
--- NOTE | 2020-12-19 09:53 | PDOC ---
DATE OF SERVICE DATE: 12/19/20 TIME: 09:51 SUBJECTIVE ROS Stable , Denies N/V. No SOB . Seen during dialysis OBJECTIVE Vital Signs Vital Signs Date Time Temp Pulse Resp B/P (MAP) Pulse Ox O2 Delivery O2 Flow Rate FiO2 12/19/20 07:00 97.4 63 17 125/64 (84) 97 Nasal Cannula 4.0 97.4 I & 0 Intake and Output 12/19/20 07:00 Intake Total 1080 ml Balance 1080 ml Intake Oral 240 ml IV Total 500 ml Blood Product IV Normal Saline Flush 340 ml # Voids 1 # Bowel Movements 1 PHYSICAL EXAM Physical Exam GENERAL: no acute distress. HEENT: Normocephalic, atraumatic. Anicteric. NECK: Supple, no JVD. LUNGS: decreased breath sounds at the bases, non labored . HEART: S1, S2, systolic murmur present. Pacemaker + ABDOMEN: Soft, nontender, nondistended. EXTREMITIES: post surgery dressing Rt knee + DERM: no generalized rash. NEUROLOGIC: Alert and oriented x 3, grossly nonfocal. DIAGNOSIS/ASSESSMENT Assessment & Plan GUERO - ATN 2/ 2 Hypotension/ Sepsis - worsening renal function, Non Oliguric . Requiring Dialysis 1st on 12/12 ; No improvement in renal function. Renal US unremarkable. Baseline normal Cr on 11/30 ; UA no eosinophils, No casts, Cx No growth . Monitor , supportive care , strict I/O Bladder scan ordered - Not sure if done Monitor for Renal recovery Seen during dialysis , tolerating well. Continue as ordered , Francesco Reid. Currently on MWF schedule(from TTS last week) Access Currently has Temp HDC Anemia- Noted decrease in Hgb - Copious amounts of blood noted by nursing last night right knee suture site . Hgb decreased <7 over the weekend Defer to Primary Sepsis from Gram-positive bacteremia - MSSA bacteremia History of PPM.H/O recent battery exchange. Rt Knee pain and swelling status post synovial aspirate WBC 30,000 RBC 66,000; - Cultures staph aureus History of atrial fibrillation. Hypertension- BP 's low, antihypertensives (ESTEFANY-i, Coreg, Lasix ) held COMMENT/RELEVANT DATA Meds Current Medications Medications (Trade) Dose Ordered Sig/Gia Start Time Stop Time Status Last Admin Dose Admin Acetaminophen (Tylenol) 650 mg QHS 11/29/20 21:00 12/18/20 20:30 650 MG Acetaminophen/ Hydrocodone Bitart (Lortab 10/325) 1 tab PRN Q4HRS PRN 12/05/20 20:00 12/18/20 13:56 1 TAB Acetaminophen/ Hydrocodone Bitart (Lortab 5/325) 1 tab PRN Q4HRS PRN 11/28/20 22:45 12/05/20 19:50 DC 12/05/20 17:38 1 TAB Albumin Human 100 ml @ 100 mls/hr 1X PRN PRN 12/19/20 08:30 12/19/20 14:29 Aspirin (Aspirin Chewable) 81 mg DAILY 11/30/20 09:00 12/18/20 09:59 81 MG Atorvastatin Calcium (Lipitor) 20 mg QHS 11/29/20 21:00 12/18/20 20:29 20 MG Azithromycin 250 ml @ 250 mls/hr DAILY ONCE 11/30/20 09:00 11/30/20 09:59 UNV Azithromycin 500 mg/Sodium Chloride 250 ml @ 250 mls/hr Q24H 11/29/20 15:00 11/29/20 13:50 DC Benzocaine (Hurricaine One) 1 spray STK-MED ONCE 12/05/20 10:06 12/05/20 10:07 DC Carvedilol (Coreg) 3.125 mg BIDWMEALS 12/01/20 12:00 12/05/20 20:11 DC 12/03/20 16:39 3.125 MG Ceftriaxone Sodium (Rocephin) 2 gm Q24H 11/29/20 14:00 12/01/20 09:19 DC 11/30/20 13:21 2 GM Daptomycin 500 mg/ Sodium Chloride 50 ml @ 100 mls/hr Q48H 12/13/20 10:00 12/17/20 17:38 100 MLS/HR Daptomycin 580 mg/ Sodium Chloride 50 ml @ 100 mls/hr Q24H 12/01/20 07:30 12/01/20 09:19 DC 12/01/20 08:52 100 MLS/HR Dexamethasone Sodium Phosphate (Decadron) 4 mg STK-MED ONCE 12/04/20 11:26 12/04/20 11:26 DC Docusate Sodium (Colace) 100 mg PRN BID PRN 12/17/20 17:45 Epoetin Krishna-epbx (RETACRIT for ESRD PTS) 10,000 unit MoWeFr@2100 12/14/20 21:00 12/16/20 21:23 10,000 UNIT Fentanyl Citrate (Fentanyl 2ml Vial) 100 mcg STK-MED ONCE 12/04/20 11:26 12/04/20 11:26 DC Furosemide (Lasix) 40 mg DAILY 12/01/20 12:00 12/07/20 14:46 DC 12/07/20 08:28 40 MG Hydromorphone HCl (Dilaudid) 0.5 mg PRN Q10MIN PRN 12/04/20 09:30 12/05/20 09:29 DC Influenza Virus Vaccine Quadrival (Flulaval Quad Syringe) 0.5 ml ONCE ONCE 11/29/20 09:00 11/29/20 09:01 DC 11/29/20 10:06 0.5 ML Info (PHARMACY MONITORING -- do not chart) 1 each PRN DAILY PRN 12/19/20 08:30 Lactobacillus Rhamnosus (Culturelle) 1 cap BID 11/29/20 21:00 12/18/20 20:30 1 CAP Lidocaine HCl (Buffered Lidocaine 1%) 4 ml 1X ONCE 12/12/20 13:15 12/12/20 13:18 DC 12/12/20 13:11 4 ML Lidocaine HCl (Lidocaine 1% 20ml Vial) 10 ml 1X ONCE 12/01/20 16:00 12/01/20 16:01 DC Lidocaine HCl (Lidocaine Pf 2% Vial) 5 ml STK-MED ONCE 12/04/20 10:43 12/04/20 10:43 DC Lidocaine HCl (Viscous Lidocaine) 15 ml STK-MED ONCE 12/05/20 10:06 12/05/20 10:06 DC Lidocaine HCl (Xylocaine 2% Topical 30gm Tube) 30 hiro STK-MED ONCE 12/05/20 10:06 12/05/20 10:06 DC Metoprolol Succinate (Toprol Xl) 25 mg DAILY 12/09/20 09:00 12/18/20 16:06 25 MG Morphine Sulfate (Morphine Sulfate) 1 mg PRN Q10MIN PRN 12/04/20 09:30 12/05/20 09:29 DC Nafcillin Sodium 2 gm/Dextrose 100 ml @ 200 mls/hr Q4HRS 12/01/20 10:00 12/19/20 04:25 200 MLS/HR Ondansetron HCl (Zofran) 4 mg STK-MED ONCE 12/04/20 11:26 12/04/20 11:26 DC Phenylephrine HCl (PHENYLEPHRINE in 0.9% NACL PF) 1 mg STK-MED ONCE 12/04/20 10:43 12/04/20 10:43 DC Phytonadione (Vitamin K Ampule) 10 mg 1X ONCE 12/03/20 11:00 12/03/20 11:01 DC 12/03/20 11:17 10 MG Polyethylene Glycol (miraLAX PACKET) 17 gm PRN DAILY PRN 12/03/20 19:00 12/06/20 09:16 17 GM Potassium Chloride/Water 100 ml @ 50 mls/hr 1X ONCE 11/28/20 14:45 11/28/20 16:44 DC 11/28/20 16:20 50 MLS/HR Potassium Chloride (Klor-Con) 20 meq 1X ONCE 12/10/20 19:00 12/10/20 19:01 DC 12/10/20 18:52 20 MEQ Prochlorperazine Edisylate (Compazine) 5 mg PACU PRN PRN 12/04/20 09:30 12/05/20 09:29 DC Propofol (Diprivan) 200 mg STK-MED ONCE 12/05/20 09:29 12/05/20 09:30 DC Ringer's Solution 1,000 ml @ 30 mls/hr Q24H 12/04/20 09:30 12/04/20 21:29 DC Sevoflurane (Ultane) 60 ml STK-MED ONCE 12/04/20 11:14 12/04/20 11:14 DC Sodium Chloride 1,000 ml @ 400 mls/hr Q2H30M PRN 12/19/20 08:30 12/19/20 20:29 Sodium Chloride (Normal Saline Flush) 10 ml 1X PRN PRN 12/12/20 12:00 12/13/20 11:59 DC Sodium Chloride (Saline Mist Nasal) 1 hiro PRN Q1HR PRN 12/02/20 20:45 12/19/20 03:32 1 HIRO Warfarin Sodium (Coumadin) 3.75 mg DAILY 11/30/20 09:00 UNV Zolpidem Tartrate (Ambien) 5 mg PRN QHS PRN 12/05/20 20:00 12/18/20 20:30 5 MG Lab Laboratory Tests Test 12/19/20 07:00 White Blood Count 10.4 x10^3/uL (4.0-11.0) Red Blood Count 2.57 x10^6/uL (4.30-5.70) Hemoglobin 7.9 g/dL (13.0-17.5) Hematocrit 23.3 % (39.0-53.0) Mean Corpuscular Volume 91 fL (79-100) Mean Corpuscular Hemoglobin 31 pg (25-35) Mean Corpuscular Hemoglobin Concent 34 g/dL (31-37) Red Cell Distribution Width 17.2 % (11.5-14.5) Platelet Count 295 x10^3/uL (140-400) Neutrophils (%) (Auto) 70 % (31-73) Lymphocytes (%) (Auto) 12 % (24-48) Monocytes (%) (Auto) 7 % (0-9) Eosinophils (%) (Auto) 10 % (0-3) Basophils (%) (Auto) 1 % (0-3) Neutrophils # (Auto) 7.3 x10^3/uL (1.8-7.7) Lymphocytes # (Auto) 1.2 x10^3/uL (1.0-4.8) Monocytes # (Auto) 0.7 x10^3/uL (0.0-1.1) Eosinophils # (Auto) 1.0 x10^3/uL (0.0-0.7) Basophils # (Auto) 0.1 x10^3/uL (0.0-0.2) Sodium Level 135 mmol/L (136-145) Potassium Level 3.9 mmol/L (3.5-5.1) Chloride Level 97 mmol/L (98-107) Carbon Dioxide Level 30 mmol/L (21-32) Anion Gap 8 (6-14) Blood Urea Nitrogen 36 mg/dL (8-26) Creatinine 4.6 mg/dL (0.7-1.3) Estimated GFR (Cockcroft-Gault) 12.3 Glucose Level 91 mg/dL (70-99) Calcium Level 7.5 mg/dL (8.5-10.1) Creatine Kinase 14 U/L (39-308) Results All relevant outside records, renal labs, imaging studies, telemetry/EKG's were reviewed. Justicifation of Admission Dx: Justifications for Admission: Justification of Admission Dx: N/A MERLE QUIROZ MD Dec 19, 2020 09:53
--- NOTE | 2020-12-19 10:59 | PDOC ---
Infectious Disease Note Subjective: Subjective Patient seen in dialysis unit Complains of feeling "cold" Denies any fever, nausea, vomiting, diarrhea, abdominal pain, shortness of breath or cough Vital Signs: Vital Signs Vital Signs Date Time Temp Pulse Resp B/P (MAP) Pulse Ox O2 Delivery O2 Flow Rate FiO2 12/19/20 07:00 97.4 63 17 125/64 (84) 97 Nasal Cannula 4.0 97.4 Physical Exam: PHYSICAL EXAM GENERAL: Alert, oriented x 3 male, in no acute distress. HEENT: Normocephalic, atraumatic. Anicteric. NECK: Supple, no JVD. Temporary HD catheter in place clean LUNGS: Clear except for decreased breath sounds at the bases. HEART: S1, S2, systolic murmur present. Pacemaker site looks okay. PPM incision site dry scab no redness no fluctuance ABDOMEN: Soft, nontender, nondistended. EXTREMITIES: Right knee prepatellar swelling present. Erythema. Warmth. post surgery dressing not opened No cyanosis or clubbing DERMATOLOGIC: Warm, dry, no generalized rash. NEUROLOGIC: Alert and oriented x 3, grossly nonfocal. PSYCHIATRIC: Calm and cooperative. Medications: Inpatient Meds: Medications reviewed. Labs: Lab Laboratory Tests Test 12/19/20 07:00 White Blood Count 10.4 x10^3/uL (4.0-11.0) Red Blood Count 2.57 x10^6/uL (4.30-5.70) Hemoglobin 7.9 g/dL (13.0-17.5) Hematocrit 23.3 % (39.0-53.0) Mean Corpuscular Volume 91 fL (79-100) Mean Corpuscular Hemoglobin 31 pg (25-35) Mean Corpuscular Hemoglobin Concent 34 g/dL (31-37) Red Cell Distribution Width 17.2 % (11.5-14.5) Platelet Count 295 x10^3/uL (140-400) Neutrophils (%) (Auto) 70 % (31-73) Lymphocytes (%) (Auto) 12 % (24-48) Monocytes (%) (Auto) 7 % (0-9) Eosinophils (%) (Auto) 10 % (0-3) Basophils (%) (Auto) 1 % (0-3) Neutrophils # (Auto) 7.3 x10^3/uL (1.8-7.7) Lymphocytes # (Auto) 1.2 x10^3/uL (1.0-4.8) Monocytes # (Auto) 0.7 x10^3/uL (0.0-1.1) Eosinophils # (Auto) 1.0 x10^3/uL (0.0-0.7) Basophils # (Auto) 0.1 x10^3/uL (0.0-0.2) Sodium Level 135 mmol/L (136-145) Potassium Level 3.9 mmol/L (3.5-5.1) Chloride Level 97 mmol/L (98-107) Carbon Dioxide Level 30 mmol/L (21-32) Anion Gap 8 (6-14) Blood Urea Nitrogen 36 mg/dL (8-26) Creatinine 4.6 mg/dL (0.7-1.3) Estimated GFR (Cockcroft-Gault) 12.3 Glucose Level 91 mg/dL (70-99) Calcium Level 7.5 mg/dL (8.5-10.1) Creatine Kinase 14 U/L (39-308) Objective: Assessment: Persistent methicillin sensitive staph aureus bacteremia 4 of 4 bottles present on admission 11/28/2020, November 30 and December 02 History of PPM.H/O recent battery exchange. Sepsis from Gram-positive bacteremia. Improving Leukocytosis and bandemia. Improving Rt Knee pain and swelling status post synovial aspirate WBC 30,000 RBC 66,000 -Cultures staph aureus Generalized weakness. History of fall. Hypokalemia.Hyponatremia. Anemia History of atrial fibrillation. Hypertension. Coagulopathy Plan: Plan of Care Continue daptomycin Follow-up repeat blood cultures negative from December 05 Follow-up synovial fluid cultures positive for staph aureus Monitor labs and cultures. Continue supportive care. ELIZABETH BALLESTEROS MD Dec 19, 2020 10:59
[2020-12-19] MEDS: METOPROLOL SUCC 24HR ER 25 MG TAB.ER.24H. PO SCH (12:40)
[2020-12-19] MEDS: ASPIRIN CHEWABLE 81 MG TABLET. PO SCH (12:40)
--- NOTE | 2020-12-19 14:35 | PDOC ---
LILLIANA AZEVEDO RECRUITMENT ASSISTANT 12/19/20 1435: CARDIO Progress Notes Date and Time Date of Service 12/19/20 Time of Evaluation 1310 Subjective Subjective: No Chest Pain, No shortness of breath, No Palpitations, Other (bloody sputum) Vitals Vitals Vital Signs Date Time Temp Pulse Resp B/P (MAP) Pulse Ox O2 Delivery O2 Flow Rate FiO2 12/19/20 12:40 59 141/48 12/19/20 11:00 97.4 17 92 Nasal Cannula 4.0 97.4 Weight Weight [ ] Input and Output Intake and Output Intake and Output 12/19/20 07:00 Intake Total 1080 ml Balance 1080 ml Intake Oral 240 ml IV Total 500 ml Blood Product IV Normal Saline Flush 340 ml # Voids 1 # Bowel Movements 1 Laboratory Labs Laboratory Tests Test 12/19/20 07:00 White Blood Count 10.4 x10^3/uL (4.0-11.0) Red Blood Count 2.57 x10^6/uL (4.30-5.70) Hemoglobin 7.9 g/dL (13.0-17.5) Hematocrit 23.3 % (39.0-53.0) Mean Corpuscular Volume 91 fL (79-100) Mean Corpuscular Hemoglobin 31 pg (25-35) Mean Corpuscular Hemoglobin Concent 34 g/dL (31-37) Red Cell Distribution Width 17.2 % (11.5-14.5) Platelet Count 295 x10^3/uL (140-400) Neutrophils (%) (Auto) 70 % (31-73) Lymphocytes (%) (Auto) 12 % (24-48) Monocytes (%) (Auto) 7 % (0-9) Eosinophils (%) (Auto) 10 % (0-3) Basophils (%) (Auto) 1 % (0-3) Neutrophils # (Auto) 7.3 x10^3/uL (1.8-7.7) Lymphocytes # (Auto) 1.2 x10^3/uL (1.0-4.8) Monocytes # (Auto) 0.7 x10^3/uL (0.0-1.1) Eosinophils # (Auto) 1.0 x10^3/uL (0.0-0.7) Basophils # (Auto) 0.1 x10^3/uL (0.0-0.2) Sodium Level 135 mmol/L (136-145) Potassium Level 3.9 mmol/L (3.5-5.1) Chloride Level 97 mmol/L (98-107) Carbon Dioxide Level 30 mmol/L (21-32) Anion Gap 8 (6-14) Blood Urea Nitrogen 36 mg/dL (8-26) Creatinine 4.6 mg/dL (0.7-1.3) Estimated GFR (Cockcroft-Gault) 12.3 Glucose Level 91 mg/dL (70-99) Calcium Level 7.5 mg/dL (8.5-10.1) Creatine Kinase 14 U/L (39-308) Microbiology Micro Microbiology 12/07/20 Urine Culture - Final, Complete 12/05/20 Blood Culture - Final, Complete NO GROWTH AFTER 5 DAYS 12/04/20 Gram Stain - Final, Complete 12/04/20 Aerobic and Anaerobic Culture - Final, Complete Review of Systems Constitutional: yes: alert, oriented Ears/Nose/Throat: Yes: no symptom reported Eyes: Yes: no symptom reported Pulmonary: Yes no symptom reported Cardiovascular: Yes edema Gastrointestional: Yes: no symptom reported Genitourinary: Yes: no symptom reported Musculoskeletal: Yes: no symptom reported Skin: Yes no symptom reported Psychiatric/Neurological: Yes: no symptom reported Endocrine: Yes: no symptom reported Physical Exam HEENT: Neck Supple W Full Motion Chest: Symmetric LUNGS: Other (diminished bases) Heart: other (V paced with underlying AFIB. rate controlled ) Abdomen: Soft N/T Extremities: Other (1+ bilateral LE edema ) Neurology: alert, oriented, follow commands Assessment Assessment 1. Weakness, mechanical fall with right knee effusion: s/p I & D 2. Sepsis, MSSA bacteremia: no intracardiac vegetation per SOO. 3. SSS, s/p PPM. generator change ([employer]) 11/01/2020. normal function 4. CAD: clinically stable 5. Permanent AFIB: rate controlled with intermittent v-pacing. 6. Coagulopathy due to warfarin; OAC held. s/p vit K 7. Chronic diastolic CHF; echo with normal EF and WM 8. GUERO; HD initiated 9. HTN: controlled 10. HLP: on statin 11. Anemia; hgb drift to 6.2. S/p 2 units PRBC's. Noted with hemoptysis today Recommendations Poor candidate for OAC given anemia, fall risk Will hold ASA with hemoptysis Monitor hgb Secondary prevention as able Metoprolol for rate control Avoid nephrotoxins Fluid offloading via HD Ongoing treatment of sepsis/bacteremia per ID team Supportive care Consider outpatient referral of LAAO Justicifation of Admission Dx: Justifications for Admission: Justification of Admission Dx: N/A IRMA GONZALES MD 12/20/20 1154: CARDIO Progress Notes Assessment Assessment Patient seen and examined 12/19/2020. 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
[2020-12-19] MEDS: DAPTOmycin (GENERIC) IVPB 500 MG in IV NORMAL SALINE 50ML 50 ML IV SCH (18:45)
[2020-12-19] MEDS: IV NORMAL SALINE 1000ML BAG 1,000 ML IV SCH (20:35)
[2020-12-19] MEDS: ATORVASTATIN CALCIUM 20 MG TABLET PO SCH (20:35)
[2020-12-19] MEDS: EPOETIN ALFA-EPBX for ESRD 20,000 UNIT/ML VIAL. SQ SCH (20:36)
[2020-12-19] MEDS: ACETAMINOPHEN 325 MG TABLET. PO SCH (20:36)
[2020-12-19] MEDS: ZOLPIDEM 5 MG TABLET. PO PRN (20:36)
--- NOTE | 2020-12-19 20:55 | PN ---
DATE: 12/19/2020 LOCATION: He is in room 514. SUBJECTIVE: This 85-year-old male remains hospitalized with MSSA sepsis from right knee source. He developed acute renal failure, nonoliguric, currently on dialysis. He has received two units of packed red blood cells because of anemia again yesterday and we have asked GI to see him. OBJECTIVE: VITAL SIGNS: Stable. He is afebrile, awake, alert. CHEST: Clear. HEART: Regular. ABDOMEN: Benign. LABORATORY DATA: Creatinine is bumped up again consistent with no recovery of renal function to date. ASSESSMENT: 1. Methicillin-resistant Staphylococcus aureus sepsis, right knee source. 2. Acute renal failure. 3. Anemia requiring transfusion. 4. History of atrial fibrillation. PLAN: Continue antibiotics. Transfusion is done and hemoglobin is up to 7.9. We will follow this over time. Await Gastroenterology consultation and continue dialysis as necessary. HUGH DR: Danielle TID: [id number]
[2020-12-20] MEDS: NAFCILLIN 2 GM in IV DEXTROSE 5% 100ML 100 ML IV SCH ×6 (03:58→23:52)
[2020-12-20 03:59] VITALS: BP 112/48
[2020-12-20 07:00] VITALS: BP 109/49
[2020-12-20] MEDS: LACTOBACILLUS RHAMNOSUS GG 1 CAPSULE. PO SCH ×2 (08:51→20:15)
--- NOTE | 2020-12-20 08:51 | PDOC ---
Infectious Disease Note Subjective: Subjective Patient says feels ok Vital Signs: Vital Signs Vital Signs Date Time Temp Pulse Resp B/P (MAP) Pulse Ox O2 Delivery O2 Flow Rate FiO2 12/20/20 07:00 98.2 60 20 109/49 (69) 96 Nasal Cannula 2.0 98.2 Physical Exam: PHYSICAL EXAM GENERAL: Alert, oriented x 3 male, in no acute distress. HEENT: Normocephalic, atraumatic. Anicteric. NECK: Supple, no JVD. Temporary HD catheter in place clean LUNGS: Clear except for decreased breath sounds at the bases. HEART: S1, S2, systolic murmur present. Pacemaker site looks okay. PPM incision site dry scab no redness no fluctuance ABDOMEN: Soft, nontender, nondistended. EXTREMITIES: Right knee prepatellar swelling present. Erythema. Warmth. post surgery dressing not opened No cyanosis or clubbing DERMATOLOGIC: Warm, dry, no generalized rash. NEUROLOGIC: Alert and oriented x 3, grossly nonfocal. PSYCHIATRIC: Calm and cooperative. Medications: Inpatient Meds: Medications reviewed. Objective: Assessment: Persistent methicillin sensitive staph aureus bacteremia 4 of 4 bottles present on admission 11/28/2020, November 30 and December 02 History of PPM.H/O recent battery exchange. SOO negative for vegetation or thrombus Rt [place] joint MSSA septic arthritis status post synovial aspirate WBC 30,000 RBC 66,000 Status post irrigation debridement of right knee joint and prepatellar bursa on December 04, 2020 Cultures positive for MSSA Sepsis from Gram-positive bacteremia. Improving Leukocytosis and bandemia. Improving Generalized weakness. History of fall. Hypokalemia.Hyponatremia. Anemia History of atrial fibrillation. Hypertension. Coagulopathy GUERO urine eosinophil negative Plan: Plan of Care Continue daptomycin, renal dosing, pharmacy to assist Follow-up repeat blood cultures negative from December 05 Renal team following Wound care as directed by orthopedics Monitor labs and cultures. Physical therapy and OT as directed by orthopedics Continue supportive care. ELIZABETH BALLESTEROS MD Dec 20, 2020 08:51
[2020-12-20] MEDS: DOCUSATE SODIUM 100 MG CAPSULE. PO SCH ×2 (08:52→20:15)
[2020-12-20] MEDS: METOPROLOL SUCC 24HR ER 25 MG TAB.ER.24H. PO SCH (08:57)
--- NOTE | 2020-12-20 09:07 | PDOC2 ---
GI CONSULT Date of Service: DATE: 12/20/20 TIME: 09:07 Reason For Consult: anemia HPI: HPI: 85 y/o male here since 11/28/20 w/ MSSA bacteremia/right knee septic arthritis ([place] joint) s/p I&D. Complicated course w/ GUERO requiring HD and Coumadin coagulopathy (INR >15 at one point) for h/o A Fib. Hgb was 12/4 on admission and has drifted - noted in 6-7 range last week and has required transfusion. Per review of chart and discussion w/ staff, pt has coughed up some blood-tinged sputum and has had some oozing from right knee sutures. The patient denies GI bleeding and no GI bleeding has been noted by staff. The patient denies reflux/heartburn, dysphagia, n/v, abd pain, diarrhea, constipation, hematochezia, hematemesis, melana, and weight loss. Can document colonoscopy for rectal bleeding by Dr. Peters in 2013 - notes mention polyps, diverticulosis, and hemorrhoids. No procedure report or pathology available. No GB, liver, pancreas, or PUD history. PMH: PMH: A Fib (Coumadin held), CAD w/ stent (previously on ASA and Plavix), CHF, HTN, HLD, SSS, cardiomyopathy pacemaker, left knee replacement, right carpal and cubital tunnel release FH: Family History: No pertinent hx Social History: Smoke: No ALCOHOL: none Drugs: None ROS: GEN: Denies fevers, chills, sweats HEENT: Denies blurred vision, sore throat CV: Denies chest pain RESP: +cough/hemoptysis GI: Per HPI : Denies hematuria, dysuria ENDO: Denies weight changes NEURO: Denies confusion, dizziness MSK: knee pain SKIN: Denies jaundice, pruritus Vitals: Vitals: Vital Signs Date Time Temp Pulse Resp B/P (MAP) Pulse Ox O2 Delivery O2 Flow Rate FiO2 12/20/20 08:57 60 109/49 12/20/20 07:00 98.2 20 96 Nasal Cannula 2.0 98.2 Labs: Labs: See EMR. Most recent: Hgb on 12/19 was 7.9 - not checked today BUN on 12/19 was 36 and Cr was 4.6 AST was 57 and Alk Phos was 148 on 11/30 COVID was negative on 11/28 URINE CULTURE Final Final No Growth on 12/08/20 at 0802 BLOOD CULTURE Final NO GROWTH AFTER 5 DAYS GRAM STAIN Final Final NO ORGANISMS SEEN. RBC:MANY SQUAMOUS EPI CELL:NONE SEEN PMN (WBCs):MANY ANAEROBIC-AEROBIC CULTURE Final Final RARE [STAPHYLOCOCCUS AUREUS] on 12/06/20 at 0951 REFER TO [id number] FOR SUSCEPTIBILITY NO ANAEROBIC ORGANISMS ISOLATED on 12/10/20 at 0915 STAPHYLOCOCCUS AUREUS BLOOD CULTURE LC Final Final FINAL ID= [STAPHYLOCOCCUS AUREUS] STAPHYLOCOCCUS AUREUS Allergies: Coded Allergies: No Known Drug Allergies (Unverified , 07/22/20) Medications: Current Medications Medications (Trade) Dose Ordered Sig/Gia Route PRN Reason Start Time Stop Time Status Last Admin Dose Admin Atorvastatin Calcium (Lipitor) 40 mg QHS PO 12/19/20 21:00 12/19/20 20:35 Imaging: Imaging: IR 12/12 IMPRESSION: Placement of a temporary dialysis catheter with ultrasound and fluoroscopic guidance Renal US 12/08 IMPRESSION: 1. No hydronephrosis. 2. Visualization is limited by habitus, but bilateral renal cysts appear benign. CXR 12/06 IMPRESSION: 1. Stable small left pleural effusion. Bibasilar atelectasis or mild infiltrates. 2. Moderate cardiomegaly. SOO 12/05 <Conclusion> The left ventricular systolic function is normal. The ejection fraction is 60-65%. There is normal LV segmental wall motion. Pacer leads noted RA/RV. Mild mitral regurgitation. Trace to mild tricuspid regurgitation. There is no evidence of significant pericardial effusion. No intracardiac vegetation or thrombus. Knee X-Ray 12/01 IMPRESSION: 1. No acute fracture or dislocation. 2. Severe right knee joint osteoarthritis 3. Large knee joint effusion. 4. Mild prepatellar soft tissue swelling likely prepatellar bursal distention/bursitis PE: GEN: NAD - was asleep, has trouble reaching for water, wants help raising head of bed HEENT: Atraumatic, PERRL LUNGS: CTAB anteriorly HEART: irregular ABD: NABS, S/ND/NT EXTREMITY/SKIN: right knee w/ some edema, dried blood around sutures, bandage on left elbow/forearm NEURO/PSYCH: A & O 3 A/P: A/P: MSSA bacteremia/right knee septic arthritis s/p I&D GUERO - on HD Coumadin coagulopathy (resolved), h/o A Fib ?hemoptysis CRC screen - last in 2013 H/o colon polyps, diverticulosis, hemorrhoids -- No obvious GI bleeding. 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 Follow Hgb, transfuse as needed. Currently no plans for inpatient scopes. Will attempt to review past records. Update: Colonoscopy 12/[address] Peters for anemia showed three 7-10mm adenomatous polyps in ascending colon, two 7-9mm adenomatous polyps in mid-transverse colon, sigmoid diverticulosis, two 5-7mm adenomatous polyps in rectum, and uncomplicated internal hemorrhoids. Recommendation for surveillance exam in 5 years. PAMELA TREVIÑO Dec 20, 2020 09:07
[2020-12-20] MEDS: PANTOPRAZOLE 40 MG TABLET.DR. PO SCH (09:24)
[2020-12-20 11:00] VITALS: BP 104/44
--- NOTE | 2020-12-20 11:00 | PDOC ---
DATE OF SERVICE DATE: 12/20/20 TIME: 10:57 SUBJECTIVE ROS Stable , Denies N/V. No SOB . OBJECTIVE Vital Signs Vital Signs Date Time Temp Pulse Resp B/P (MAP) Pulse Ox O2 Delivery O2 Flow Rate FiO2 12/20/20 08:57 60 109/49 12/20/20 07:00 98.2 20 96 Nasal Cannula 2.0 98.2 I & 0 Intake and Output 12/20/20 07:00 Intake Total 580 ml Balance 580 ml Intake Oral 580 ml # Voids 2 # Bowel Movements 1 PHYSICAL EXAM Physical Exam GENERAL: no acute distress. HEENT: Normocephalic, atraumatic. Anicteric. NECK: Supple, no JVD. LUNGS: decreased breath sounds at the bases, non labored . HEART: S1, S2, systolic murmur present. Pacemaker + ABDOMEN: Soft, nontender, nondistended. EXTREMITIES: post surgery dressing Rt knee + DERM: no generalized rash. NEUROLOGIC: Alert and oriented x 3, grossly nonfocal. DIAGNOSIS/ASSESSMENT Assessment & Plan GUERO - ATN 2/ 2 Hypotension/ Sepsis - worsening renal function, Non Oliguric . Requiring Dialysis 1st on 12/12 ; No improvement in renal function. Renal US unremarkable. Baseline normal Cr on 11/30 ; UA no eosinophils, No casts, Cx No growth . Monitor , supportive care , strict I/O Bladder scan ordered - Not sure if done Monitor for Renal recovery Seen during dialysis , tolerating well. Continue as ordered , Francesco Reid. Currently on MWF schedule(from TTS last week) Access Currently has Temp HDC . Will Need Tunneled HDC and OP chair time prior to discharge if No renal recovery Anemia- Noted decrease in Hgb - Hgb decreased <7 over the weekend .GI consulted Defer to Primary Sepsis from Gram-positive bacteremia - MSSA bacteremia History of PPM.H/O recent battery exchange. Rt Knee pain and swelling status post synovial aspirate WBC 30,000 RBC 66,000; - Cultures staph aureus History of atrial fibrillation. Hypertension- BP 's low, antihypertensives (ESTEFANY-i, Coreg, Lasix ) held COMMENT/RELEVANT DATA Meds Current Medications Medications (Trade) Dose Ordered Sig/Gia Start Time Stop Time Status Last Admin Dose Admin Acetaminophen (Tylenol) 650 mg QHS 11/29/20 21:00 12/19/20 20:36 650 MG Acetaminophen/ Hydrocodone Bitart (Lortab 10/325) 1 tab PRN Q4HRS PRN 12/05/20 20:00 12/18/20 13:56 1 TAB Acetaminophen/ Hydrocodone Bitart (Lortab 5/325) 1 tab PRN Q4HRS PRN 11/28/20 22:45 12/05/20 19:50 DC 12/05/20 17:38 1 TAB Albumin Human 100 ml @ 100 mls/hr 1X PRN PRN 12/19/20 08:30 12/19/20 14:29 DC Aspirin (Aspirin Chewable) 81 mg DAILY 11/30/20 09:00 12/19/20 14:26 DC 12/19/20 12:40 81 MG Atorvastatin Calcium (Lipitor) 40 mg QHS 12/19/20 21:00 12/19/20 20:35 40 MG Azithromycin 250 ml @ 250 mls/hr DAILY ONCE 11/30/20 09:00 11/30/20 09:59 UNV Azithromycin 500 mg/Sodium Chloride 250 ml @ 250 mls/hr Q24H 11/29/20 15:00 11/29/20 13:50 DC Benzocaine (Hurricaine One) 1 spray STK-MED ONCE 12/05/20 10:06 12/05/20 10:07 DC Carvedilol (Coreg) 3.125 mg BIDWMEALS 12/01/20 12:00 12/05/20 20:11 DC 12/03/20 16:39 3.125 MG Ceftriaxone Sodium (Rocephin) 2 gm Q24H 11/29/20 14:00 12/01/20 09:19 DC 11/30/20 13:21 2 GM Daptomycin 500 mg/ Sodium Chloride 50 ml @ 100 mls/hr Q48H 12/13/20 10:00 12/19/20 18:45 100 MLS/HR Daptomycin 580 mg/ Sodium Chloride 50 ml @ 100 mls/hr Q24H 12/01/20 07:30 12/01/20 09:19 DC 12/01/20 08:52 100 MLS/HR Dexamethasone Sodium Phosphate (Decadron) 4 mg STK-MED ONCE 12/04/20 11:26 12/04/20 11:26 DC Docusate Sodium (Colace) 100 mg PRN BID PRN 12/17/20 17:45 Epoetin Krishna-epbx (RETACRIT for ESRD PTS) 10,000 unit MoWeFr@2100 12/14/20 21:00 12/19/20 20:36 10,000 UNIT Fentanyl Citrate (Fentanyl 2ml Vial) 100 mcg STK-MED ONCE 12/04/20 11:26 12/04/20 11:26 DC Furosemide (Lasix) 40 mg DAILY 12/01/20 12:00 12/07/20 14:46 DC 12/07/20 08:28 40 MG Hydromorphone HCl (Dilaudid) 0.5 mg PRN Q10MIN PRN 12/04/20 09:30 12/05/20 09:29 DC Influenza Virus Vaccine Quadrival (Flulaval Quad [id number] Syringe) 0.5 ml ONCE ONCE 11/29/20 09:00 11/29/20 09:01 DC 11/29/20 10:06 0.5 ML Info (PHARMACY MONITORING -- do not chart) 1 each PRN DAILY PRN 12/19/20 08:30 Lactobacillus Rhamnosus (Culturelle) 1 cap BID 11/29/20 21:00 12/20/20 08:51 1 CAP Lidocaine HCl (Buffered Lidocaine 1%) 4 ml 1X ONCE 12/12/20 13:15 12/12/20 13:18 DC 12/12/20 13:11 4 ML Lidocaine HCl (Lidocaine 1% 20ml Vial) 10 ml 1X ONCE 12/01/20 16:00 12/01/20 16:01 DC Lidocaine HCl (Lidocaine Pf 2% Vial) 5 ml STK-MED ONCE 12/04/20 10:43 12/04/20 10:43 DC Lidocaine HCl (Viscous Lidocaine) 15 ml STK-MED ONCE 12/05/20 10:06 12/05/20 10:06 DC Lidocaine HCl (Xylocaine 2% Topical 30gm Tube) 30 hiro STK-MED ONCE 12/05/20 10:06 12/05/20 10:06 DC Metoprolol Succinate (Toprol Xl) 25 mg DAILY 12/09/20 09:00 12/19/20 12:40 25 MG Morphine Sulfate (Morphine Sulfate) 1 mg PRN Q10MIN PRN 12/04/20 09:30 12/05/20 09:29 DC Nafcillin Sodium 2 gm/Dextrose 100 ml @ 200 mls/hr Q4HRS 12/01/20 10:00 12/20/20 08:51 200 MLS/HR Ondansetron HCl (Zofran) 4 mg STK-MED ONCE 12/04/20 11:26 12/04/20 11:26 DC Pantoprazole Sodium (Protonix) 40 mg DAILYAC 12/20/20 09:15 12/20/20 09:24 40 MG Phenylephrine HCl (PHENYLEPHRINE in 0.9% NACL PF) 1 mg STK-MED ONCE 12/04/20 10:43 12/04/20 10:43 DC Phytonadione (Vitamin K Ampule) 10 mg 1X ONCE 12/03/20 11:00 12/03/20 11:01 DC 12/03/20 11:17 10 MG Polyethylene Glycol (miraLAX PACKET) 17 gm PRN DAILY PRN 12/03/20 19:00 12/06/20 09:16 17 GM Potassium Chloride/Water 100 ml @ 50 mls/hr 1X ONCE 11/28/20 14:45 11/28/20 16:44 DC 11/28/20 16:20 50 MLS/HR Potassium Chloride (Klor-Con) 20 meq 1X ONCE 12/10/20 19:00 12/10/20 19:01 DC 12/10/20 18:52 20 MEQ Prochlorperazine Edisylate (Compazine) 5 mg PACU PRN PRN 12/04/20 09:30 12/05/20 09:29 DC Propofol (Diprivan) 200 mg STK-MED ONCE 12/05/20 09:29 12/05/20 09:30 DC Ringer's Solution 1,000 ml @ 30 mls/hr Q24H 12/04/20 09:30 12/04/20 21:29 DC Sevoflurane (Ultane) 60 ml STK-MED ONCE 12/04/20 11:14 12/04/20 11:14 DC Sodium Chloride 1,000 ml @ 400 mls/hr Q2H30M PRN 12/19/20 08:30 12/19/20 20:29 DC Sodium Chloride (Normal Saline Flush) 10 ml 1X PRN PRN 12/12/20 12:00 12/13/20 11:59 DC Sodium Chloride (Saline Mist Nasal) 1 hiro PRN Q1HR PRN 12/02/20 20:45 12/19/20 12:29 1 HIRO Warfarin Sodium (Coumadin) 3.75 mg DAILY 11/30/20 09:00 UNV Zolpidem Tartrate (Ambien) 5 mg PRN QHS PRN 12/05/20 20:00 12/19/20 20:36 5 MG Lab Laboratory Tests Test 12/20/20 09:30 Red Blood Count 2.71 x10^6/uL (4.30-5.70) Absolute Reticulocyte Count 0.070 x10^6/uL (0.020-0.120) Percent Reticulocyte Count 2.6 % (0.5-2.3) Immature Reticulocyte Fraction 0.60 (0.20-0.60) Iron Level 46 ug/dL (65-175) Total Iron Binding Capacity 88 ug/dL (250-450) Iron Saturation 52 % (15-34) Vitamin B12 Level 1402 pg/mL (247-911) Results All relevant outside records, renal labs, imaging studies, telemetry/EKG's were reviewed. Justicifation of Admission Dx: Justifications for Admission: Justification of Admission Dx: N/A MERLE QUIROZ MD Dec 20, 2020 11:00
--- NOTE | 2020-12-20 13:38 | PN ---
DATE: 12/20/2020 LOCATION: He is in room 514. SUBJECTIVE: This 85-year-old male remains hospitalized with MRSA sepsis from right knee source. He has developed acute renal failure, currently getting dialysis. He received 2 units of packed red blood cells yesterday because of anemia and GI was consulted to see him regarding the same. OBJECTIVE: VITAL SIGNS: Stable. He is afebrile. CHEST: Clear. HEART: Regular. ABDOMEN: Benign. EXTREMITIES: Right knee continues to be bruised, but does not look bad. ASSESSMENT: 1. Methicillin-resistant Staph aureus sepsis, right knee source. 2. Acute renal failure. 3. Anemia. 4. History of atrial fibrillation. PLAN: Continue antibiotics and GI consult for the anemia, so I am not sure why would be anemic unless it was the knee, but there is not that much bleeding at this point in time. LEYLA/SAGE DR: ZEV/young TID: [id number]
--- NOTE | 2020-12-20 13:43 | PDOC ---
PROGRESS NOTES Date of Service: DATE: 12/20/20 TIME: 13:43 Subjective Subjective No new complaints Objective Objective Vital Signs Date Time Temp Pulse Resp B/P (MAP) Pulse Ox O2 Delivery O2 Flow Rate FiO2 12/20/20 11:00 98.4 66 20 104/44 (64) 95 Nasal Cannula 2.0 98.4 Intake and Output 12/20/20 07:00 Intake Total 580 ml Balance 580 ml Intake Oral 580 ml # Voids 2 # Bowel Movements 1 Physical Exam Abdomen: Normal bowel sounds, Soft, No tenderness Heart: Regular rate Extremities: No clubbing General: Alert, Oriented X3, Cooperative, No acute distress HEENT: Atraumatic Lungs: Clear to auscultation MUSCULOSKELETAL: No joint tenderness, No deformity, No swelling Neuro: Normal speech Psych/Mental Status: Mental status NL Skin: No breakdown Assessment Assessment 1. Weakness, mechanical fall with right knee effusion: s/p I & D 2. Sepsis, Staph bacteremia: no intracardiac vegetation per SOO. 3. SSS, s/p PPM. generator change (J-Kan) 11/01/2020. normal function 4. CAD: clinically stable 5. Permanent AFIB: rate controlled with intermittent v-pacing. 6. Coagulopathy due to warfarin; OAC held. s/p vit K 7. Chronic diastolic CHF; echo with normal EF and WM 8. GUERO; HD initiated 9. HTN: controlled 10. HLP: on statin 11. Anemia; Recommendations Poor candidate for OAC given anemia, fall risk Will hold ASA with hemoptysis Monitor hgb Secondary prevention as able Metoprolol for rate control Avoid nephrotoxins Fluid offloading via HD Ongoing treatment of sepsis/bacteremia per ID team Supportive care Consider outpatient referral of JACI Plan Plan of Care Problems Medical Problems: (1) Hypokalemia Status: Acute (2) Person under investigation for COVID-19 Status: Acute (3) Pneumonia Status: Acute (4) Sepsis Status: Acute Comment Review of Relevant I have reviewed the following items mel (where applicable) has been applied. Labs Laboratory Tests Test 12/20/20 09:30 Red Blood Count 2.71 x10^6/uL (4.30-5.70) Absolute Reticulocyte Count 0.070 x10^6/uL (0.020-0.120) Percent Reticulocyte Count 2.6 % (0.5-2.3) Immature Reticulocyte Fraction 0.60 (0.20-0.60) Iron Level 46 ug/dL (65-175) Total Iron Binding Capacity 88 ug/dL (250-450) Iron Saturation 52 % (15-34) Vitamin B12 Level 1402 pg/mL (247-911) Microbiology 12/07/20 Urine Culture - Final, Complete 12/05/20 Blood Culture - Final, Complete NO GROWTH AFTER 5 DAYS 12/04/20 Gram Stain - Final, Complete 12/04/20 Aerobic and Anaerobic Culture - Final, Complete Medications Current Medications Atorvastatin Calcium (Lipitor) 40 mg QHS PO Last administered on 12/19/20at 20:35; Start 12/19/20 at 21:00 Pantoprazole Sodium (Protonix) 40 mg DAILYAC PO Last administered on 12/20/20at 09:24; Start 12/20/20 at 09:15 Vitals/I & O Vital Sign - Last 24 Hours 12/19/20 12/19/20 12/19/20 12/19/20 15:00 19:40 20:00 23:36 Temp 98.4 99.0 98.0 98.4 99.0 98.0 Pulse 60 61 60 Resp 16 16 18 B/P (MAP) 101/49 (66) 119/50 (73) 120/48 (72) Pulse Ox 99 93 97 O2 Delivery Nasal Cannula Nasal Cannula Nasal Cannula Nasal Cannula O2 Flow Rate 4.0 2.0 2.0 2.0 12/20/20 12/20/20 12/20/20 12/20/20 03:59 07:00 08:14 08:57 Temp 97.9 98.2 97.9 98.2 Pulse 59 60 60 Resp 16 20 B/P (MAP) 112/48 (69) 109/49 (69) 109/49 Pulse Ox 93 96 O2 Delivery Nasal Cannula Nasal Cannula Nasal Cannula O2 Flow Rate 2.0 2.0 2.0 12/20/20 11:00 Temp 98.4 98.4 Pulse 66 Resp 20 B/P (MAP) 104/44 (64) Pulse Ox 95 O2 Delivery Nasal Cannula O2 Flow Rate 2.0 Intake and Output 12/19/20 12/19/20 12/20/20 15:00 23:00 07:00 Intake Total 240 ml 240 ml 100 ml Balance 240 ml 240 ml 100 ml IRMA GONZALES MD Dec 20, 2020 13:43
[2020-12-20 15:00] VITALS: BP 105/50
[2020-12-20 19:00] VITALS: BP 101/47
[2020-12-20] MEDS: IV NORMAL SALINE 1000ML BAG 1,000 ML IV SCH (20:14)
[2020-12-20] MEDS: ATORVASTATIN CALCIUM 20 MG TABLET PO SCH (20:15)
[2020-12-20] MEDS: ACETAMINOPHEN 325 MG TABLET. PO SCH (20:15)
[2020-12-20 22:28] VITALS: BP 103/46
[2020-12-20] MEDS: SODIUM CHLORIDE 0.65% NASAL SPRAY 45ML BOTTLE. NS PRN (23:52)
[2020-12-20] MEDS: ZOLPIDEM 5 MG TABLET. PO PRN (23:52)
[2020-12-21 03:27] VITALS: BP 98/52
[2020-12-21] MEDS: NAFCILLIN 2 GM in IV DEXTROSE 5% 100ML 100 ML IV SCH (04:11)
[2020-12-21 06:11] LABS: HEMATOCRIT 22.9 % (39.0-53.0); HEMOGLOBIN 7.5 g/dL (13.0-17.5); RED BLOOD COUNT 2.45 x10^6/uL (4.30-5.70); RED CELL DISTRIBUTION WIDTH 18.1 % (11.5-14.5); WHITE BLOOD COUNT 9.5 x10^3/uL (4.0-11.0)
[2020-12-21 06:27] LABS: CALCIUM 7.3 mg/dL (8.5-10.1); CREATININE 4.4 mg/dL (0.7-1.3); GFR 12.9; POTASSIUM 3.9 mmol/L (3.5-5.1)
[2020-12-21 07:30] VITALS: BP 121/53
[2020-12-21] MEDS ORDERED: IV NORMAL SALINE 1000ML BAG 1,000 ML IV PRN ×2 (08:00)
[2020-12-21] MEDS ORDERED: DIALYSIS PATIENT. MC PRN ×2 (08:00)
--- NOTE | 2020-12-21 08:18 | PDOC ---
Infectious Disease Note Subjective: Subjective Patient says feels ok Vital Signs: Vital Signs Vital Signs Date Time Temp Pulse Resp B/P (MAP) Pulse Ox O2 Delivery O2 Flow Rate FiO2 12/21/20 07:30 97.7 68 18 121/53 (75) 92 Nasal Cannula 2.0 97.7 Physical Exam: PHYSICAL EXAM GENERAL: Alert, oriented x 3 male, in no acute distress. HEENT: Normocephalic, atraumatic. Anicteric. NECK: Supple, no JVD. Temporary HD catheter in place clean LUNGS: Clear except for decreased breath sounds at the bases. HEART: S1, S2, systolic murmur present. Pacemaker site looks okay. PPM incision site dry scab no redness no fluctuance ABDOMEN: Soft, nontender, nondistended. EXTREMITIES: Right knee prepatellar swelling, erythema and warmth are improving No cyanosis or clubbing DERMATOLOGIC: Warm, dry, no generalized rash. NEUROLOGIC: Alert and oriented x 3, grossly nonfocal. PSYCHIATRIC: Calm and cooperative. Medications: Inpatient Meds: Medications reviewed. Labs: Lab Laboratory Tests Test 12/20/20 09:30 12/21/20 04:20 Red Blood Count 2.71 x10^6/uL (4.30-5.70) 2.45 x10^6/uL (4.30-5.70) Absolute Reticulocyte Count 0.070 x10^6/uL (0.020-0.120) Percent Reticulocyte Count 2.6 % (0.5-2.3) Immature Reticulocyte Fraction 0.60 (0.20-0.60) Iron Level 46 ug/dL (65-175) Total Iron Binding Capacity 88 ug/dL (250-450) Iron Saturation 52 % (15-34) Vitamin B12 Level 1402 pg/mL (247-911) White Blood Count 9.5 x10^3/uL (4.0-11.0) Hemoglobin 7.5 g/dL (13.0-17.5) Hematocrit 22.9 % (39.0-53.0) Mean Corpuscular Volume 93 fL (79-100) Mean Corpuscular Hemoglobin 31 pg (25-35) Mean Corpuscular Hemoglobin Concent 33 g/dL (31-37) Red Cell Distribution Width 18.1 % (11.5-14.5) Platelet Count 253 x10^3/uL (140-400) Sodium Level 133 mmol/L (136-145) Potassium Level 3.9 mmol/L (3.5-5.1) Chloride Level 98 mmol/L (98-107) Carbon Dioxide Level 29 mmol/L (21-32) Anion Gap 6 (6-14) Blood Urea Nitrogen 31 mg/dL (8-26) Creatinine 4.4 mg/dL (0.7-1.3) Estimated GFR (Cockcroft-Gault) 12.9 Glucose Level 87 mg/dL (70-99) Calcium Level 7.3 mg/dL (8.5-10.1) Objective: Assessment: Persistent methicillin sensitive staph aureus bacteremia 4 of 4 bottles present on admission 11/28/2020, November 30 and December 02 History of PPM.H/O recent battery exchange. SOO negative for vegetation or thrombus Rt [place] joint MSSA septic arthritis status post synovial aspirate WBC 30,000 RBC 66,000 Status post irrigation debridement of right knee joint and prepatellar bursa on December 04, 2020 Cultures positive for MSSA Sepsis from Gram-positive bacteremia. Improving Leukocytosis and bandemia. Improving Generalized weakness. History of fall. Hypokalemia.Hyponatremia. Anemia History of atrial fibrillation. Hypertension. Coagulopathy GUERO urine eosinophil negative Plan: Plan of Care Continue daptomycin which was started on December 13, renal dosing, pharmacy to assist off Nafcillin Follow-up repeat blood cultures negative from December 05 Wound care as directed by orthopedics Monitor labs and cultures. Physical therapy and OT as directed by orthopedics Continue supportive care. ELIZABETH BALLESTEROS MD Dec 21, 2020 08:18
--- NOTE | 2020-12-21 08:56 | PDOC ---
DATE OF SERVICE DATE: 12/21/20 TIME: 08:56 SUBJECTIVE ROS Stable , seen during dialysis Denies N/V. No SOB . OBJECTIVE Vital Signs Vital Signs Date Time Temp Pulse Resp B/P (MAP) Pulse Ox O2 Delivery O2 Flow Rate FiO2 12/21/20 07:30 97.7 68 18 121/53 (75) 92 Nasal Cannula 2.0 97.7 I & 0 Intake and Output 12/21/20 07:00 Intake Total 1470 ml Output Total 151 ml Balance 1319 ml Intake Oral 320 ml IV Total 1150 ml Output Urine Total 1 ml Other 150 ml PHYSICAL EXAM Physical Exam GENERAL: no acute distress. HEENT: Normocephalic, atraumatic. Anicteric. NECK: Supple, no JVD. LUNGS: decreased breath sounds at the bases, non labored . HEART: S1, S2, systolic murmur present. Pacemaker + ABDOMEN: Soft, nontender, nondistended. EXTREMITIES: post surgery dressing Rt knee + DERM: no generalized rash. NEUROLOGIC: Alert and oriented x 3, grossly nonfocal. DIAGNOSIS/ASSESSMENT Assessment & Plan GUERO - ATN 2/ 2 Hypotension/ Sepsis - worsening renal function, Non Oliguric . Requiring Dialysis 1st on 12/12 ; currently MWF schedule seen during treatment tolerating well, continue as ordered, Francesco Reid Renal US unremarkable. Baseline normal Cr on 11/30 ; UA no eosinophils, No casts, Cx No growth . Monitor , supportive care , strict I/O Bladder scan ordered - Not sure if done Monitor for Renal recovery . Access Currently has Temp HDC . Will Need Tunneled HDC and OP chair time prior to discharge if No renal recovery Anemia- Noted decrease in Hgb - Hgb decreased <7 over the weekend .GI consulted Defer to Primary Sepsis from Gram-positive bacteremia - MSSA bacteremia History of PPM.H/O recent battery exchange. Rt Knee pain and swelling status post synovial aspirate WBC 30,000 RBC 66,000; - Cultures staph aureus History of atrial fibrillation. Hypertension- BP 's low, antihypertensives (ESTEFANY-i, Coreg, Lasix ) held COMMENT/RELEVANT DATA Meds Current Medications Medications (Trade) Dose Ordered Sig/Gia Start Time Stop Time Status Last Admin Dose Admin Acetaminophen (Tylenol) 650 mg QHS 11/29/20 21:00 12/20/20 20:15 650 MG Acetaminophen/ Hydrocodone Bitart (Lortab 10) 1 tab PRN Q4HRS PRN 12/05/20 20:00 12/18/20 13:56 1 TAB Acetaminophen/ Hydrocodone Bitart (Lortab 5/325) 1 tab PRN Q4HRS PRN 11/28/20 22:45 12/05/20 19:50 DC 12/05/20 17:38 1 TAB Albumin Human 100 ml @ 100 mls/hr 1X PRN PRN 12/19/20 08:30 12/19/20 14:29 DC Aspirin (Aspirin Chewable) 81 mg DAILY 11/30/20 09:00 12/19/20 14:26 DC 12/19/20 12:40 81 MG Atorvastatin Calcium (Lipitor) 40 mg QHS 12/19/20 21:00 12/20/20 20:15 40 MG Azithromycin 250 ml @ 250 mls/hr DAILY ONCE 11/30/20 09:00 11/30/20 09:59 UNV Azithromycin 500 mg/Sodium Chloride 250 ml @ 250 mls/hr Q24H 11/29/20 15:00 11/29/20 13:50 DC Benzocaine (Hurricaine One) 1 spray STK-MED ONCE 12/05/20 10:06 12/05/20 10:07 DC Carvedilol (Coreg) 3.125 mg BIDWMEALS 12/01/20 12:00 12/05/20 20:11 DC 12/03/20 16:39 3.125 MG Ceftriaxone Sodium (Rocephin) 2 gm Q24H 11/29/20 14:00 12/01/20 09:19 DC 11/30/20 13:21 2 GM Daptomycin 500 mg/ Sodium Chloride 50 ml @ 100 mls/hr Q48H 12/13/20 10:00 12/19/20 18:45 100 MLS/HR Daptomycin 580 mg/ Sodium Chloride 50 ml @ 100 mls/hr Q24H 12/01/20 07:30 12/01/20 09:19 DC 12/01/20 08:52 100 MLS/HR Dexamethasone Sodium Phosphate (Decadron) 4 mg STK-MED ONCE 12/04/20 11:26 12/04/20 11:26 DC Docusate Sodium (Colace) 100 mg PRN BID PRN 12/17/20 17:45 Epoetin Krishna-epbx (RETACRIT for ESRD PTS) 10,000 unit MoWeFr@2100 12/14/20 21:00 12/19/20 20:36 10,000 UNIT Fentanyl Citrate (Fentanyl 2ml Vial) 100 mcg STK-MED ONCE 12/04/20 11:26 12/04/20 11:26 DC Furosemide (Lasix) 40 mg DAILY 12/01/20 12:00 12/07/20 14:46 DC 12/07/20 08:28 40 MG Hydromorphone HCl (Dilaudid) 0.5 mg PRN Q10MIN PRN 12/04/20 09:30 12/05/20 09:29 DC Influenza Virus Vaccine Quadrival (Flulaval Quad Syringe) 0.5 ml ONCE ONCE 11/29/20 09:00 11/29/20 09:01 DC 11/29/20 10:06 0.5 ML Info (PHARMACY MONITORING -- do not chart) 1 each PRN DAILY PRN 12/21/20 08:00 Lactobacillus Rhamnosus (Culturelle) 1 cap BID 11/29/20 21:00 12/20/20 20:15 1 CAP Lidocaine HCl (Buffered Lidocaine 1%) 4 ml 1X ONCE 12/12/20 13:15 12/12/20 13:18 DC 12/12/20 13:11 4 ML Lidocaine HCl (Lidocaine 1% 20ml Vial) 10 ml 1X ONCE 12/01/20 16:00 12/01/20 16:01 DC Lidocaine HCl (Lidocaine Pf 2% Vial) 5 ml STK-MED ONCE 12/04/20 10:43 12/04/20 10:43 DC Lidocaine HCl (Viscous Lidocaine) 15 ml STK-MED ONCE 12/05/20 10:06 12/05/20 10:06 DC Lidocaine HCl (Xylocaine 2% Topical 30gm Tube) 30 hiro STK-MED ONCE 12/05/20 10:06 12/05/20 10:06 DC Metoprolol Succinate (Toprol Xl) 25 mg DAILY 12/09/20 09:00 12/19/20 12:40 25 MG Morphine Sulfate (Morphine Sulfate) 1 mg PRN Q10MIN PRN 12/04/20 09:30 12/05/20 09:29 DC Nafcillin Sodium 2 gm/Dextrose 100 ml @ 200 mls/hr Q4HRS 12/01/20 10:00 12/21/20 08:19 DC 12/21/20 04:11 200 MLS/HR Ondansetron HCl (Zofran) 4 mg STK-MED ONCE 12/04/20 11:26 12/04/20 11:26 DC Pantoprazole Sodium (Protonix) 40 mg DAILYAC 12/20/20 09:15 12/20/20 09:24 40 MG Phenylephrine HCl (PHENYLEPHRINE in 0.9% NACL PF) 1 mg STK-MED ONCE 12/04/20 10:43 12/04/20 10:43 DC Phytonadione (Vitamin K Ampule) 10 mg 1X ONCE 12/03/20 11:00 12/03/20 11:01 DC 12/03/20 11:17 10 MG Polyethylene Glycol (miraLAX PACKET) 17 gm PRN DAILY PRN 12/03/20 19:00 12/06/20 09:16 17 GM Potassium Chloride/Water 100 ml @ 50 mls/hr 1X ONCE 11/28/20 14:45 11/28/20 16:44 DC 11/28/20 16:20 50 MLS/HR Potassium Chloride (Klor-Con) 20 meq 1X ONCE 12/10/20 19:00 12/10/20 19:01 DC 12/10/20 18:52 20 MEQ Prochlorperazine Edisylate (Compazine) 5 mg PACU PRN PRN 12/04/20 09:30 12/05/20 09:29 DC Propofol (Diprivan) 200 mg STK-MED ONCE 12/05/20 09:29 12/05/20 09:30 DC Ringer's Solution 1,000 ml @ 30 mls/hr Q24H 12/04/20 09:30 12/04/20 21:29 DC Sevoflurane (Ultane) 60 ml STK-MED ONCE 12/04/20 11:14 12/04/20 11:14 DC Sodium Chloride 1,000 ml @ 400 mls/hr Q2H30M PRN 12/21/20 08:00 12/21/20 19:59 Sodium Chloride (Normal Saline Flush) 10 ml 1X PRN PRN 12/12/20 12:00 12/13/20 11:59 DC Sodium Chloride (Saline Mist Nasal) 1 hiro PRN Q1HR PRN 12/02/20 20:45 12/20/20 23:52 1 HIRO Warfarin Sodium (Coumadin) 3.75 mg DAILY 11/30/20 09:00 UNV Zolpidem Tartrate (Ambien) 5 mg PRN QHS PRN 12/05/20 20:00 12/20/20 23:52 5 MG Lab Laboratory Tests Test 12/20/20 09:30 12/21/20 04:20 Red Blood Count 2.71 x10^6/uL (4.30-5.70) 2.45 x10^6/uL (4.30-5.70) Absolute Reticulocyte Count 0.070 x10^6/uL (0.020-0.120) Percent Reticulocyte Count 2.6 % (0.5-2.3) Immature Reticulocyte Fraction 0.60 (0.20-0.60) Iron Level 46 ug/dL (65-175) Total Iron Binding Capacity 88 ug/dL (250-450) Iron Saturation 52 % (15-34) Vitamin B12 Level 1402 pg/mL (247-911) White Blood Count 9.5 x10^3/uL (4.0-11.0) Hemoglobin 7.5 g/dL (13.0-17.5) Hematocrit 22.9 % (39.0-53.0) Mean Corpuscular Volume 93 fL (79-100) Mean Corpuscular Hemoglobin 31 pg (25-35) Mean Corpuscular Hemoglobin Concent 33 g/dL (31-37) Red Cell Distribution Width 18.1 % (11.5-14.5) Platelet Count 253 x10^3/uL (140-400) Sodium Level 133 mmol/L (136-145) Potassium Level 3.9 mmol/L (3.5-5.1) Chloride Level 98 mmol/L (98-107) Carbon Dioxide Level 29 mmol/L (21-32) Anion Gap 6 (6-14) Blood Urea Nitrogen 31 mg/dL (8-26) Creatinine 4.4 mg/dL (0.7-1.3) Estimated GFR (Cockcroft-Gault) 12.9 Glucose Level 87 mg/dL (70-99) Calcium Level 7.3 mg/dL (8.5-10.1) Results All relevant outside records, renal labs, imaging studies, telemetry/EKG's were reviewed. Justicifation of Admission Dx: Justifications for Admission: Justification of Admission Dx: N/A MERLE QUIROZ MD Dec 21, 2020 08:56
--- NOTE | 2020-12-21 11:06 | PDOC ---
LILLIANA AZEVEDO ELECT[employer]IC DOLLY OPERATOR 12/21/20 1106: CARDIO Progress Notes Date and Time Date of Service 12/21/20 Time of Evaluation 1105 Subjective Subjective: No Chest Pain, No shortness of breath, No Palpitations Vitals Vitals Vital Signs Date Time Temp Pulse Resp B/P (MAP) Pulse Ox O2 Delivery O2 Flow Rate FiO2 12/21/20 07:30 97.7 68 18 121/53 (75) 92 Nasal Cannula 2.0 97.7 Weight Weight [ ] Input and Output Intake and Output Intake and Output 12/21/20 07:00 Intake Total 1470 ml Output Total 151 ml Balance 1319 ml Intake Oral 320 ml IV Total 1150 ml Output Urine Total 1 ml Other 150 ml Laboratory Labs Laboratory Tests Test 12/21/20 04:20 White Blood Count 9.5 x10^3/uL (4.0-11.0) Red Blood Count 2.45 x10^6/uL (4.30-5.70) Hemoglobin 7.5 g/dL (13.0-17.5) Hematocrit 22.9 % (39.0-53.0) Mean Corpuscular Volume 93 fL (79-100) Mean Corpuscular Hemoglobin 31 pg (25-35) Mean Corpuscular Hemoglobin Concent 33 g/dL (31-37) Red Cell Distribution Width 18.1 % (11.5-14.5) Platelet Count 253 x10^3/uL (140-400) Sodium Level 133 mmol/L (136-145) Potassium Level 3.9 mmol/L (3.5-5.1) Chloride Level 98 mmol/L (98-107) Carbon Dioxide Level 29 mmol/L (21-32) Anion Gap 6 (6-14) Blood Urea Nitrogen 31 mg/dL (8-26) Creatinine 4.4 mg/dL (0.7-1.3) Estimated GFR (Cockcroft-Gault) 12.9 Glucose Level 87 mg/dL (70-99) Calcium Level 7.3 mg/dL (8.5-10.1) Microbiology Micro Microbiology 12/07/20 Urine Culture - Final, Complete 12/05/20 Blood Culture - Final, Complete NO GROWTH AFTER 5 DAYS 12/04/20 Gram Stain - Final, Complete 12/04/20 Aerobic and Anaerobic Culture - Final, Complete Review of Systems Constitutional: yes: alert, oriented Ears/Nose/Throat: Yes: no symptom reported Eyes: Yes: no symptom reported Pulmonary: Yes no symptom reported Cardiovascular: Yes edema Gastrointestional: Yes: no symptom reported Genitourinary: Yes: no symptom reported Musculoskeletal: Yes: no symptom reported Skin: Yes no symptom reported Psychiatric/Neurological: Yes: no symptom reported Endocrine: Yes: no symptom reported Physical Exam HEENT: Neck Supple W Full Motion Chest: Symmetric LUNGS: Other (diminished bases) Heart: other (V paced with underlying AFIB. rate controlled ) Abdomen: Soft N/T Extremities: Other (trace bilateral LE edema ) Neurology: alert, oriented, follow commands Assessment Assessment 1. Weakness, mechanical fall with right knee effusion: s/p I & D 2. Sepsis, MSSA bacteremia: no intracardiac vegetation per SOO. 3. SSS, s/p PPM. generator change ([employer]) 11/01/2020. normal function 4. CAD: clinically stable 5. Permanent AFIB: rate controlled with intermittent v-pacing. 6. Coagulopathy due to warfarin; OAC held. s/p vit K 7. Chronic diastolic CHF; echo with normal EF and WM 8. GUERO; HD initiated 9. HTN: controlled 10. HLP: on statin 11. Anemia; s/p transfusion. Mild hemoptysis persists Recommendations Poor candidate for OAC given anemia, fall risk Will hold ASA with hemoptysis, anemia requiring transfusion Secondary prevention as able Metoprolol for rate control Avoid nephrotoxins Fluid offloading via HD Ongoing treatment of sepsis/bacteremia per ID team Supportive care Consider outpatient referral of LAAO Justicifation of Admission Dx: Justifications for Admission: Justification of Admission Dx: N/A IRMA GONZALES MD 12/21/202032: CARDIO Progress Notes Assessment Assessment Patient seen and examined. Agree with BALL WORKER's assessment and plan Perm AF rate controlled - prob poor senior care AC candidate Ac on chr diast HF better compensated CAD, SSS s/p PPM stable SOO did not show any intracardiac thrombus or vegetation Continue treatment of sepsis/bacteremia per ID team Continue HD per nephrology team We will consider outpatient referral for LAAO procedure LILLIANA AZEVEDO APRN Dec 21, 2020 11:06 IRMA GONZALES MD Dec 21, 2020 20:33
--- NOTE | 2020-12-21 11:11 | PDOC ---
Date of Service: DATE: 12/21/20 TIME: 11:04 Subjective: Subjective: Very cold. Not eating much because "it goes right through me." I asked about diarrhea - "oh yeah! but it's mostly gas." Denies bleeding. Objective: Objective: D/w nurse - probably some confusion. Weak. Loose stools (none today). No GI bleeding. Vital Signs: Vital Signs Date Time Temp Pulse Resp B/P (MAP) Pulse Ox O2 Delivery O2 Flow Rate FiO2 12/21/20 07:30 97.7 68 18 121/53 (75) 92 Nasal Cannula 2.0 97.7 Labs: Laboratory Tests Test 12/21/20 04:20 White Blood Count 9.5 x10^3/uL Red Blood Count 2.45 x10^6/uL Hemoglobin 7.5 g/dL Hematocrit 22.9 % Mean Corpuscular Volume 93 fL Mean Corpuscular Hemoglobin 31 pg Mean Corpuscular Hemoglobin Concent 33 g/dL Red Cell Distribution Width 18.1 % Platelet Count 253 x10^3/uL Sodium Level 133 mmol/L Potassium Level 3.9 mmol/L Chloride Level 98 mmol/L Carbon Dioxide Level 29 mmol/L Anion Gap 6 Blood Urea Nitrogen 31 mg/dL Creatinine 4.4 mg/dL Estimated GFR (Cockcroft-Gault) 12.9 Glucose Level 87 mg/dL Calcium Level 7.3 mg/dL PE: GEN: dialyzing, covered with blankets LUNGS: clear, NC 2L HEART: RRR ABD: S/ND/NT NEURO/PSYCH: seems a bit confused A/P: MSSA bacteremia/right knee septic arthritis s/p I&D, GUERO on HD Anemia - not iron or B12 deficient (post transfusions) Decreased appetite, loose stools H/o adenomatous colon polyps - last colonoscopy in 2013 H/o A Fib - Coumadin held -- Encouraged PO. Continue PPI. Follow Hgb and transfuse as needed. Monitor stooling - agree w/ holding Colace - check C Diff if having diarrhea. Justicifation of Admission Dx: Justifications for Admission: Justification of Admission Dx: N/A PAMELA TREVIÑO Dec 21, 2020 11:11
[2020-12-21 12:40] VITALS: BP 139/74
[2020-12-21] MEDS: PANTOPRAZOLE 40 MG TABLET.DR. PO SCH (13:12)
[2020-12-21] MEDS: LACTOBACILLUS RHAMNOSUS GG 1 CAPSULE. PO SCH ×2 (13:12→20:33)
[2020-12-21] MEDS: METOPROLOL SUCC 24HR ER 25 MG TAB.ER.24H. PO SCH (13:13)
[2020-12-21 15:29] VITALS: BP 92/36
[2020-12-21] MEDS: HYDROcodone/APAP 10/325 1 TAB TABLET PO PRN (16:28)
[2020-12-21] MEDS: DAPTOmycin (GENERIC) IVPB 500 MG in IV NORMAL SALINE 50ML 50 ML IV SCH (16:29)
[2020-12-21 19:00] VITALS: BP 95/41
[2020-12-21] MEDS: ACETAMINOPHEN 325 MG TABLET. PO SCH (20:33)
[2020-12-21] MEDS: EPOETIN ALFA-EPBX for ESRD 20,000 UNIT/ML VIAL. SQ SCH (20:34)
[2020-12-21] MEDS: ATORVASTATIN CALCIUM 20 MG TABLET PO SCH (20:34)
[2020-12-21] MEDS: ZOLPIDEM 5 MG TABLET. PO PRN (20:34)
[2020-12-21] MEDS: IV NORMAL SALINE 1000ML BAG 1,000 ML IV SCH (20:34)
--- NOTE | 2020-12-21 21:43 | PN ---
DATE: 12/21/2020 LOCATION: He is in room 514. SUBJECTIVE: This 85-year-old male remains hospitalized with MSSA sepsis from a right knee source. He is up in the chair this morning. He states that he is feeling somewhat better, but is getting confused off and on. OBJECTIVE: VITAL SIGNS: Stable. He is afebrile. Blood pressures remain on the low side. CHEST: Clear. HEART: Regular. ABDOMEN: Benign. EXTREMITIES: Same. LABORATORY DATA: Creatinine this morning is up to 4.4. Hemoglobin is at 7.5. He remains on antibiotics. ASSESSMENT: 1. Methicillin-resistant Staph aureus sepsis, right knee source. 2. Acute renal failure with ongoing dialysis. 3. Anemia, stable. 4. History of atrial fibrillation. PLAN: Continue present care. Trend hemoglobin. At some point, he will need discharge to a lower level of care, but not sure where that might. SARAH DR: Danielle TID: [id number]
[2020-12-21 23:00] VITALS: BP 96/51
[2020-12-22 03:00] VITALS: BP 122/64
[2020-12-22] MEDS: HYDROcodone/APAP 10/325 1 TAB TABLET PO PRN ×3 (04:24→21:13)
[2020-12-22 07:00] VITALS: BP 118/40
--- NOTE | 2020-12-22 08:24 | PDOC ---
Infectious Disease Note Subjective: Subjective Patient has nausea upset stomach Has cough with blood-tinged sputum production Appetite is poor Nausea gets worse with p.o. water intake Discussed with nursing staff Vital Signs: Vital Signs Vital Signs Date Time Temp Pulse Resp B/P (MAP) Pulse Ox O2 Delivery O2 Flow Rate FiO2 12/22/20 07:00 98.0 60 21 118/40 (66) 93 Nasal Cannula 2.0 98.0 Physical Exam: PHYSICAL EXAM GENERAL: Alert, oriented x 3 male, in no acute distress. HEENT: Normocephalic, atraumatic. Anicteric. NECK: Supple, no JVD. Temporary HD catheter in place clean LUNGS: Clear except for decreased breath sounds at the bases. HEART: S1, S2, systolic murmur present. Pacemaker site looks okay. PPM incision site dry scab no redness no fluctuance ABDOMEN: Soft, nontender, nondistended. EXTREMITIES: Right knee prepatellar swelling, erythema and warmth are improving No cyanosis or clubbing DERMATOLOGIC: Warm, dry, no generalized rash. NEUROLOGIC: Alert and oriented x 3, grossly nonfocal. PSYCHIATRIC: Calm and cooperative. Medications: Inpatient Meds: Medications reviewed. Labs: Micro Chest x-ray IMPRESSION: 1. Increase in diffuse mixed interstitial and alveolar infiltrate and small pleural effusions. 2. Stable cardiomegaly and cardiac pacemaker. 3. Right internal jugular catheter with the tip overlying expected position of the superior cavoatrial junction. Objective: Assessment: Persistent methicillin sensitive staph aureus bacteremia 4 of 4 bottles present on admission 11/28/2020, November 30 and December 02 History of PPM.H/O recent battery exchange. SOO negative for vegetation or thrombus Rt [place] MSSA septic arthritis status post synovial aspirate WBC 30,000 RBC 66,000 Status post irrigation debridement of right knee joint and prepatellar bursa on December 04, 2020 Cultures positive for MSSA Sepsis from Gram-positive bacteremia. Improving Leukocytosis and bandemia. Improving Generalized weakness. History of fall. Hypokalemia.Hyponatremia. Anemia History of atrial fibrillation. Hypertension. Coagulopathy GUERO urine eosinophil negative Pulmonary infiltrates and small pleural effusion Nausea and vomiting Plan: Plan of Care Continue daptomycin Start empiric cefepime, renal dosing Maintain aspiration precautions Send sputum for Gram stain and cultures Repeat blood cultures negative from December 05 Wound care as directed by orthopedics Monitor labs and cultures. Physical therapy and OT as directed by orthopedics Continue supportive care. Discussed with nursing staff ELIZABETH BALLESTEROS MD Dec 22, 2020 08:24
--- NOTE | 2020-12-22 08:47 | PDOC ---
DATE OF SERVICE DATE: 12/22/20 TIME: 08:44 SUBJECTIVE ROS Stable , Denies N/V. No SOB . OBJECTIVE Vital Signs Vital Signs Date Time Temp Pulse Resp B/P (MAP) Pulse Ox O2 Delivery O2 Flow Rate FiO2 12/22/20 07:00 98.0 60 21 118/40 (66) 93 Nasal Cannula 2.0 98.0 I & 0 Intake and Output 12/22/20 07:00 Intake Total 590 ml Balance 590 ml Intake Oral 540 ml IV Total 50 ml # Voids 1 # Bowel Movements 1 PHYSICAL EXAM Physical Exam GENERAL: no acute distress. HEENT: Normocephalic, atraumatic. Anicteric. NECK: Supple, no JVD. LUNGS: decreased breath sounds at the bases, non labored . HEART: S1, S2, systolic murmur present. Pacemaker + ABDOMEN: Soft, nontender, nondistended. EXTREMITIES: post surgery dressing Rt knee + DERM: no generalized rash. NEUROLOGIC: Alert and oriented x 3, grossly nonfocal. DIAGNOSIS/ASSESSMENT Assessment & Plan GUERO - ATN 2/ 2 Hypotension/ Sepsis - worsening renal function, Non Oliguric . Requiring Dialysis 1st on 12/12 ; currently MWF schedule Renal US unremarkable. Baseline normal Cr on 11/30 ; UA no eosinophils, No casts, Cx No growth . Monitor , supportive care , strict I/O Bladder scan ordered - Not sure if done , UOP not recorded , Monitor for Renal recovery . Access Currently has Temp HDC . Will Need Tunneled HDC and OP chair time prior to discharge .DC planning per Primary Anemia Decreasing Hgb, required PRBC .GI consulted . continue LIDIA Sepsis from Gram-positive bacteremia - MSSA bacteremia History of PPM.H/O recent battery exchange. Rt Knee pain and swelling status post synovial aspirate WBC 30,000 RBC 66,000; - Cultures staph aureus History of atrial fibrillation. Hypertension- BP 's low, antihypertensives (ESTEFANY-i, Coreg, Lasix ) held COMMENT/RELEVANT DATA Meds Current Medications Medications (Trade) Dose Ordered Sig/Gia Start Time Stop Time Status Last Admin Dose Admin Acetaminophen (Tylenol) 650 mg QHS 11/29/20 21:00 12/21/20 20:33 650 MG Acetaminophen/ Hydrocodone Bitart (Lortab 10325) 1 tab PRN Q4HRS PRN 12/05/20 20:00 12/22/20 04:24 1 TAB Acetaminophen/ Hydrocodone Bitart (Lortab 5/325) 1 tab PRN Q4HRS PRN 11/28/20 22:45 12/05/20 19:50 DC 12/05/20 17:38 1 TAB Albumin Human 100 ml @ 100 mls/hr 1X PRN PRN 12/19/20 08:30 12/19/20 14:29 DC Aspirin (Aspirin Chewable) 81 mg DAILY 11/30/20 09:00 12/19/20 14:26 DC 12/19/20 12:40 81 MG Atorvastatin Calcium (Lipitor) 40 mg QHS 12/19/20 21:00 12/21/20 20:34 40 MG Azithromycin 250 ml @ 250 mls/hr DAILY ONCE 11/30/20 09:00 11/30/20 09:59 UNV Azithromycin 500 mg/Sodium Chloride 250 ml @ 250 mls/hr Q24H 11/29/20 15:00 11/29/20 13:50 DC Benzocaine (Hurricaine One) 1 spray STK-MED ONCE 12/05/20 10:06 12/05/20 10:07 DC Carvedilol (Coreg) 3.125 mg BIDWMEALS 12/01/20 12:00 12/05/20 20:11 DC 12/03/20 16:39 3.125 MG Ceftriaxone Sodium (Rocephin) 2 gm Q24H 11/29/20 14:00 12/01/20 09:19 DC 11/30/20 13:21 2 GM Daptomycin 500 mg/ Sodium Chloride 50 ml @ 100 mls/hr Q48H 12/13/20 10:00 12/21/20 16:29 100 MLS/HR Daptomycin 580 mg/ Sodium Chloride 50 ml @ 100 mls/hr Q24H 12/01/20 07:30 12/01/20 09:19 DC 12/01/20 08:52 100 MLS/HR Dexamethasone Sodium Phosphate (Decadron) 4 mg STK-MED ONCE 12/04/20 11:26 12/04/20 11:26 DC Docusate Sodium (Colace) 100 mg PRN BID PRN 12/17/20 17:45 Epoetin Krishna-epbx (RETACRIT for ESRD PTS) 10,000 unit MoWeFr@2100 12/14/20 21:00 12/21/20 20:34 10,000 UNIT Fentanyl Citrate (Fentanyl 2ml Vial) 100 mcg STK-MED ONCE 12/04/20 11:26 12/04/20 11:26 DC Furosemide (Lasix) 40 mg DAILY 12/01/20 12:00 12/07/20 14:46 DC 12/07/20 08:28 40 MG Hydromorphone HCl (Dilaudid) 0.5 mg PRN Q10MIN PRN 12/04/20 09:30 12/05/20 09:29 DC Influenza Virus Vaccine Quadrival (Flulaval Quad [id number] Syringe) 0.5 ml ONCE ONCE 11/29/20 09:00 11/29/20 09:01 DC 11/29/20 10:06 0.5 ML Info (PHARMACY MONITORING -- do not chart) 1 each PRN DAILY PRN 12/21/20 08:00 Lactobacillus Rhamnosus (Culturelle) 1 cap BID 11/29/20 21:00 12/21/20 20:33 1 CAP Lidocaine HCl (Buffered Lidocaine 1%) 4 ml 1X ONCE 12/12/20 13:15 12/12/20 13:18 DC 12/12/20 13:11 4 ML Lidocaine HCl (Lidocaine 1% 20ml Vial) 10 ml 1X ONCE 12/01/20 16:00 12/01/20 16:01 DC Lidocaine HCl (Lidocaine Pf 2% Vial) 5 ml STK-MED ONCE 12/04/20 10:43 12/04/20 10:43 DC Lidocaine HCl (Viscous Lidocaine) 15 ml STK-MED ONCE 12/05/20 10:06 12/05/20 10:06 DC Lidocaine HCl (Xylocaine 2% Topical 30gm Tube) 30 hiro STK-MED ONCE 12/05/20 10:06 12/05/20 10:06 DC Metoprolol Succinate (Toprol Xl) 25 mg DAILY 12/09/20 09:00 12/21/20 13:13 25 MG Morphine Sulfate (Morphine Sulfate) 1 mg PRN Q10MIN PRN 12/04/20 09:30 12/05/20 09:29 DC Nafcillin Sodium 2 gm/Dextrose 100 ml @ 200 mls/hr Q4HRS 12/01/20 10:00 12/21/20 08:19 DC 12/21/20 04:11 200 MLS/HR Ondansetron HCl (Zofran) 4 mg STK-MED ONCE 12/04/20 11:26 12/04/20 11:26 DC Pantoprazole Sodium (Protonix) 40 mg DAILYAC 12/20/20 09:15 12/21/20 13:12 40 MG Phenylephrine HCl (PHENYLEPHRINE in 0.9% NACL PF) 1 mg STK-MED ONCE 12/04/20 10:43 12/04/20 10:43 DC Phytonadione (Vitamin K Ampule) 10 mg 1X ONCE 12/03/20 11:00 12/03/20 11:01 DC 12/03/20 11:17 10 MG Polyethylene Glycol (miraLAX PACKET) 17 gm PRN DAILY PRN 12/03/20 19:00 12/06/20 09:16 17 GM Potassium Chloride/Water 100 ml @ 50 mls/hr 1X ONCE 11/28/20 14:45 11/28/20 16:44 DC 11/28/20 16:20 50 MLS/HR Potassium Chloride (Klor-Con) 20 meq 1X ONCE 12/10/20 19:00 12/10/20 19:01 DC 12/10/20 18:52 20 MEQ Prochlorperazine Edisylate (Compazine) 5 mg PACU PRN PRN 12/04/20 09:30 12/05/20 09:29 DC Propofol (Diprivan) 200 mg STK-MED ONCE 12/05/20 09:29 12/05/20 09:30 DC Ringer's Solution 1,000 ml @ 30 mls/hr Q24H 12/04/20 09:30 12/04/20 21:29 DC Sevoflurane (Ultane) 60 ml STK-MED ONCE 12/04/20 11:14 12/04/20 11:14 DC Sodium Chloride 1,000 ml @ 400 mls/hr Q2H30M PRN 12/21/20 08:00 12/21/20 19:59 DC Sodium Chloride (Normal Saline Flush) 10 ml 1X PRN PRN 12/12/20 12:00 12/13/20 11:59 DC Sodium Chloride (Saline Mist Nasal) 1 hiro PRN Q1HR PRN 12/02/20 20:45 12/20/20 23:52 1 HIRO Warfarin Sodium (Coumadin) 3.75 mg DAILY 11/30/20 09:00 UNV Zolpidem Tartrate (Ambien) 5 mg PRN QHS PRN 12/05/20 20:00 12/21/20 20:34 5 MG Results All relevant outside records, renal labs, imaging studies, telemetry/EKG's were reviewed. Justicifation of Admission Dx: Justifications for Admission: Justification of Admission Dx: N/A MERLE QUIROZ MD Dec 22, 2020 08:47
[2020-12-22] MEDS: LACTOBACILLUS RHAMNOSUS GG 1 CAPSULE. PO SCH ×2 (09:11→21:12)
[2020-12-22] MEDS: METOPROLOL SUCC 24HR ER 25 MG TAB.ER.24H. PO SCH (09:11)
[2020-12-22] MEDS: PANTOPRAZOLE 40 MG TABLET.DR. PO SCH (09:11)
--- NOTE | 2020-12-22 09:16 | RAD ---
EXAM: Chest, single view. HISTORY: Pneumonia. COMPARISON: None. FINDINGS: A frontal view of the chest is obtained. There has been interval increase in diffuse mixed interstitial and alveolar infiltrate. There are small pleural effusions. There is stable cardiomegaly . There is a cardiac pacemaker with leads in expected position. There has been placement of a right i nternal jugular catheter with the tip overlying the expected location of the superior cavoatrial junc tion. IMPRESSION: 1. Increase in diffuse mixed interstitial and alveolar infiltrate and small pleural effusions. 2. Stable cardiomegaly and cardiac pacemaker. 3. Right internal jugular catheter with the tip overlying expected position of the superior cavoatria l junction. Electronically signed by: Mary Anne Montague MD (12/22/2020 9:14 AM) [id number]
--- NOTE | 2020-12-22 09:18 | PDOC ---
Date of Service: DATE: 12/22/20 TIME: 09:09 Subjective: Subjective: Not doing too good. Coughing up phlegm w/ some blood, also gives h/o nausea. Story changes re: this... coughing causes nausea vs already feels nauseated so avoids eating vs eating causes stooling so he avoids eating. I attempted to clarify and he sighed and said "Let me go through this all again for you" - evolving history still. Denies dysphagia and odynophagia, denies abdominal pain. Objective: Objective: 1 stool charted. Vital Signs: Vital Signs Date Time Temp Pulse Resp B/P (MAP) Pulse Ox O2 Delivery O2 Flow Rate FiO2 12/22/20 07:00 98.0 60 21 118/40 (66) 93 Nasal Cannula 2.0 98.0 Imaging: CXR 12/22 pending PE: GEN: NAD LUNGS: NC 2L, wet cough - container w/ globs of brown-colored sputum HEART: RRR ABD: S/ND/NT NEURO/PSYCH: A & O 3 - seems confused/forgetful at times, also grumpy He's weak - unable to adjust bed or pull bedside table closer A/P: MSSA bacteremia/right knee septic arthritis s/p I&D, GUERO on HD, ?hemoptysis/cough Anemia - not iron or B12 deficient (parameters checked after transfusions) ?nausea, lack of appetite, ?loose stools H/o A Fib - Coumadin held -- His complaints are difficult to sort out. D/w nurse - seems most of the issue w/ productive cough - doesn't seem to have vomiting or excessive stooling, also does not have obvious GI bleeding. Continue PPI, encourage PO. No labs today - recheck. Await CXR. Justicifation of Admission Dx: Justifications for Admission: Justification of Admission Dx: N/A PAMELA TREVIÑO Dec 22, 2020 09:18
[2020-12-22 10:07] LABS: HEMATOCRIT 22.2 % (39.0-53.0); HEMOGLOBIN 7.7 g/dL (13.0-17.5); RED BLOOD COUNT 2.39 x10^6/uL (4.30-5.70); RED CELL DISTRIBUTION WIDTH 18.9 % (11.5-14.5); WHITE BLOOD COUNT 10.1 x10^3/uL (4.0-11.0)
[2020-12-22 10:31] LABS: CALCIUM 7.6 mg/dL (8.5-10.1); CREATININE 3.6 mg/dL (0.7-1.3); GFR 16.3; POTASSIUM 4.3 mmol/L (3.5-5.1)
[2020-12-22 11:00] VITALS: BP 113/51
[2020-12-22] MEDS: CEFEPIME HCL IV Push 1 GM VIAL. IVP SCH (11:14)
[2020-12-22] MEDS ORDERED: FUROSEMIDE 40 MG/4 ML VIAL. IVP ONE (11:15)
[2020-12-22 15:00] VITALS: BP 120/59
--- NOTE | 2020-12-22 16:42 | PDOC ---
PROGRESS NOTES Date of Service: DATE: 12/22/20 TIME: 16:42 Subjective Subjective No new complaints Objective Objective Vital Signs Date Time Temp Pulse Resp B/P (MAP) Pulse Ox O2 Delivery O2 Flow Rate FiO2 12/22/20 15:00 98.0 68 18 120/59 (79) 97 Nasal Cannula 2.0 98.0 Intake and Output 12/22/20 07:00 Intake Total 590 ml Balance 590 ml Intake Oral 540 ml IV Total 50 ml # Voids 1 # Bowel Movements 1 Physical Exam Abdomen: Normal bowel sounds, Soft, No tenderness Heart: Regular rate Extremities: No clubbing General: Alert, Oriented X3, Cooperative, No acute distress HEENT: Atraumatic Lungs: Clear to auscultation MUSCULOSKELETAL: No joint tenderness, No deformity, No swelling Neuro: Normal speech Psych/Mental Status: Mental status NL Skin: No breakdown Assessment Assessment 1. Weakness, mechanical fall with right knee effusion: s/p I & D 2. Sepsis, MSSA bacteremia: no intracardiac vegetation per SOO. 3. SSS, s/p PPM. generator change ([employer]) 11/01/2020. normal function 4. CAD: clinically stable 5. Permanent AFIB: rate controlled with intermittent v-pacing. 6. Coagulopathy due to warfarin; OAC held. s/p vit K 7. Chronic diastolic CHF; echo with normal EF and WM 8. GUERO; HD initiated 9. HTN: controlled 10. HLP: on statin 11. Anemia; s/p transfusion. Mild hemoptysis persists Recommendations Poor candidate for OAC given anemia, fall risk Hold ASA with hemoptysis, anemia requiring transfusion Secondary prevention as able Metoprolol for rate control Avoid nephrotoxins Fluid offloading via HD Ongoing treatment of sepsis/bacteremia per ID team Supportive care Consider outpatient referral of [facility] Plan Plan of Care Problems Medical Problems: (1) Hypokalemia Status: Acute (2) Person under investigation for COVID-19 Status: Acute (3) Pneumonia Status: Acute (4) Sepsis Status: Acute Comment Review of Relevant I have reviewed the following items mel (where applicable) has been applied. Labs Laboratory Tests Test 12/22/20 09:45 White Blood Count 10.1 x10^3/uL (4.0-11.0) Red Blood Count 2.39 x10^6/uL (4.30-5.70) Hemoglobin 7.7 g/dL (13.0-17.5) Hematocrit 22.2 % (39.0-53.0) Mean Corpuscular Volume 93 fL (79-100) Mean Corpuscular Hemoglobin 32 pg (25-35) Mean Corpuscular Hemoglobin Concent 35 g/dL (31-37) Red Cell Distribution Width 18.9 % (11.5-14.5) Platelet Count 254 x10^3/uL (140-400) Sodium Level 134 mmol/L (136-145) Potassium Level 4.3 mmol/L (3.5-5.1) Chloride Level 98 mmol/L (98-107) Carbon Dioxide Level 29 mmol/L (21-32) Anion Gap 7 (6-14) Blood Urea Nitrogen 20 mg/dL (8-26) Creatinine 3.6 mg/dL (0.7-1.3) Estimated GFR (Cockcroft-Gault) 16.3 Glucose Level 74 mg/dL (70-99) Calcium Level 7.6 mg/dL (8.5-10.1) Microbiology 12/07/20 Urine Culture - Final, Complete 12/05/20 Blood Culture - Final, Complete NO GROWTH AFTER 5 DAYS 12/04/20 Gram Stain - Final, Complete 12/04/20 Aerobic and Anaerobic Culture - Final, Complete Medications Current Medications Cefepime HCl (Maxipime) 1 gm Q24H IVP Last administered on 12/22/20at 11:14; Start 12/22/20 at 11:00 Furosemide (Lasix) 40 mg 1X ONCE IVP Last administered on 12/22/20at 11:17; Start 12/22/20 at 11:15; Stop 12/22/20 at 11:16; Status DC Vitals/I & O Vital Sign - Last 24 Hours 12/21/20 12/21/20 12/21/20 12/21/20 17:38 19:00 20:10 23:00 Temp 98.3 98.3 98.3 98.3 Pulse 63 62 Resp 18 18 B/P (MAP) 95/41 (59) 96/51 (66) Pulse Ox 95 94 O2 Delivery Nasal Cannula Nasal Cannula Nasal Cannula Nasal Cannula O2 Flow Rate 2.0 2.0 2.0 2.0 12/22/20 12/22/20 12/22/20 12/22/20 03:00 07:00 08:04 09:11 Temp 98.3 98.0 98.3 98.0 Pulse 73 60 60 Resp 18 21 B/P (MAP) 122/64 (83) 118/40 (66) 118/40 Pulse Ox 96 93 O2 Delivery Nasal Cannula Nasal Cannula Nasal Cannula O2 Flow Rate 2.0 2.0 3.0 12/22/20 12/22/20 12/22/20 12/22/20 11:00 11:26 12:20 15:00 Temp 98.2 98.0 98.2 98.0 Pulse 60 68 Resp 20 18 B/P (MAP) 113/51 (71) 120/59 (79) Pulse Ox 95 93 93 97 O2 Delivery Nasal Cannula Nasal Cannula Nasal Cannula Nasal Cannula O2 Flow Rate 2.0 2.0 2.0 2.0 l Intake and Output 12/21/20 12/21/20 12/22/20 15:00 23:00 07:00 Intake Total 0 ml 590 ml Balance 0 ml 590 ml IRMA GONZALES MD Dec 22, 2020 16:42
[2020-12-22] MEDS: IV NORMAL SALINE 1000ML BAG 1,000 ML IV SCH (18:45)
[2020-12-22 19:00] VITALS: BP 112/48
[2020-12-22] MEDS: ACETAMINOPHEN 325 MG TABLET. PO SCH (21:00)
--- NOTE | 2020-12-22 21:10 | PN ---
DATE: 12/22/2020 DAILY PROGRESS NOTE LOCATION: Room #514. SUBJECTIVE: This 85-year-old male remains hospitalized with MSSA sepsis, resultant acute renal failure, is currently still on dialysis. He continues to seemingly slowly feel a little bit better. By reading therapy notes, he is becoming a little bit more mobile. OBJECTIVE: VITAL SIGNS: Stable. He is afebrile. Blood pressures remain on the low side, off all of his antihypertensives. CHEST: Clear. HEART: Regular. ABDOMEN: Benign. EXTREMITIES: His right knee is stable. LABORATORY DATA: Hemoglobin this morning is stable at 7.7. Creatinine has fallen to 3.6 and I do believe he got dialysis yesterday, but I am not sure that for certain. IMPRESSION: 1. Methicillin-susceptible Staphylococcus aureus sepsis, right knee source. 2. Acute renal failure, requiring dialysis. 3. Anemia, stable. 4. History of atrial fibrillation. PLAN: Continue trending hemoglobins. Help of all consultants appreciated. NEO DR: Danielle TID: [id number]
[2020-12-22] MEDS: ATORVASTATIN CALCIUM 20 MG TABLET PO SCH (21:12)
[2020-12-22] MEDS: ZOLPIDEM 5 MG TABLET. PO PRN (21:13)
[2020-12-22 23:00] VITALS: BP 102/50
[2020-12-23] VITALS (14 sets, daily range): BP systolic 80–129; BP diastolic 36–90
[2020-12-23 07:40] LABS: CALCIUM 7.9 mg/dL (8.5-10.1); CREATININE 4.5 mg/dL (0.7-1.3); GFR 12.6; POTASSIUM 4.6 mmol/L (3.5-5.1)
[2020-12-23] MEDS: PANTOPRAZOLE 40 MG TABLET.DR. PO SCH (08:19)
[2020-12-23] MEDS: LACTOBACILLUS RHAMNOSUS GG 1 CAPSULE. PO SCH ×2 (08:19→22:11)
--- NOTE | 2020-12-23 08:45 | PDOC ---
Infectious Disease Note Subjective: Subjective Patient complains of not feeling well Continues to have nausea No vomiting Continues to cough but not worsened Denies any fever Vital Signs: Vital Signs Vital Signs Date Time Temp Pulse Resp B/P (MAP) Pulse Ox O2 Delivery O2 Flow Rate FiO2 12/23/20 07:00 97.4 60 20 105/49 (67) 95 97.4 12/22/20 21:45 Nasal Cannula 2.0 Physical Exam: PHYSICAL EXAM GENERAL: Alert, oriented x 3 male, in no acute distress. Hard of hearing HEENT: Normocephalic, atraumatic. Anicteric. NECK: Supple, no JVD. Temporary HD catheter in place clean LUNGS: Clear except for decreased breath sounds at the bases. HEART: S1, S2, systolic murmur present. Pacemaker site looks okay. PPM incision site dry scab no redness no fluctuance ABDOMEN: Soft, nontender, nondistended. EXTREMITIES: Right knee prepatellar swelling, erythema and warmth are improving No cyanosis or clubbing DERMATOLOGIC: Warm, dry, no generalized rash. NEUROLOGIC: Alert and oriented x 3, grossly nonfocal. PSYCHIATRIC: Calm and cooperative. Medications: Inpatient Meds: Medications reviewed. Labs: Lab Laboratory Tests Test 12/22/20 09:45 12/23/20 06:20 White Blood Count 10.1 x10^3/uL (4.0-11.0) Red Blood Count 2.39 x10^6/uL (4.30-5.70) Hemoglobin 7.7 g/dL (13.0-17.5) Hematocrit 22.2 % (39.0-53.0) Mean Corpuscular Volume 93 fL (79-100) Mean Corpuscular Hemoglobin 32 pg (25-35) Mean Corpuscular Hemoglobin Concent 35 g/dL (31-37) Red Cell Distribution Width 18.9 % (11.5-14.5) Platelet Count 254 x10^3/uL (140-400) Sodium Level 134 mmol/L (136-145) 134 mmol/L (136-145) Potassium Level 4.3 mmol/L (3.5-5.1) 4.6 mmol/L (3.5-5.1) Chloride Level 98 mmol/L (98-107) 98 mmol/L (98-107) Carbon Dioxide Level 29 mmol/L (21-32) 28 mmol/L (21-32) Anion Gap 7 (6-14) 8 (6-14) Blood Urea Nitrogen 20 mg/dL (8-26) 29 mg/dL (8-26) Creatinine 3.6 mg/dL (0.7-1.3) 4.5 mg/dL (0.7-1.3) Estimated GFR (Cockcroft-Gault) 16.3 12.6 Glucose Level 74 mg/dL (70-99) 81 mg/dL (70-99) Calcium Level 7.6 mg/dL (8.5-10.1) 7.9 mg/dL (8.5-10.1) Micro Chest x-ray IMPRESSION: 1. Increase in diffuse mixed interstitial and alveolar infiltrate and small pleural effusions. 2. Stable cardiomegaly and cardiac pacemaker. 3. Right internal jugular catheter with the tip overlying expected position of the superior cavoatrial junction. Objective: Assessment: Persistent methicillin sensitive staph aureus bacteremia 4 of 4 bottles present on admission 11/28/2020, November 30 and December 02 History of PPM.H/O recent battery exchange. SOO negative for vegetation or thrombus Rt little shell [place] joint MSSA septic arthritis status post synovial aspirate WBC 30,000 RBC 66,000 Status post irrigation debridement of right knee joint and prepatellar bursa on December 04, 2020 Cultures positive for MSSA Sepsis from Gram-positive bacteremia. ImprovED Leukocytosis and bandemia. ImprovED Generalized weakness. Improving History of fall. Hypokalemia.Hyponatremia. Anemia History of atrial fibrillation. Hypertension. Coagulopathy GUERO urine eosinophil negative Pulmonary infiltrates and small pleural effusion appears multifactorial could be aspiration and or mild CHF Nausea and vomiting Plan: Plan of Care Continue daptomycin was on nafcillin Continue cefepime, renal dosing December 22, 2020 Maintain aspiration precautions Follow-up sputum for Gram stain and cultures Repeat blood cultures negative from December 05 Wound care as directed by orthopedics Monitor labs and cultures. Physical therapy and OT as directed by orthopedics Continue supportive care. Discussed with nursing staff ELIZABETH BALLESTEROS MD Dec 23, 2020 08:45
[2020-12-23] MEDS: METOPROLOL SUCC 24HR ER 25 MG TAB.ER.24H. PO SCH (09:00)
--- NOTE | 2020-12-23 09:29 | PDOC ---
Date of Service: DATE: 12/23/20 TIME: Subjective: Subjective: Not feeling well. Again gives unclear history - coughing, possible nausea - no vomiting, also denies trouble swallowing - says food does not come back up. Doesn't want breakfast but says he will try lunch. Wants to leave this room. Objective: Objective: 2 stools charted. Vital Signs: Vital Signs Date Time Temp Pulse Resp B/P (MAP) Pulse Ox O2 Delivery O2 Flow Rate FiO2 12/23/20 07:00 97.4 60 20 105/49 (67) 95 97.4 12/22/20 21:45 Nasal Cannula 2.0 Labs: Laboratory Tests Test 12/22/20 09:45 12/23/20 06:20 White Blood Count 10.1 x10^3/uL Red Blood Count 2.39 x10^6/uL Hemoglobin 7.7 g/dL Hematocrit 22.2 % Mean Corpuscular Volume 93 fL Mean Corpuscular Hemoglobin 32 pg Mean Corpuscular Hemoglobin Concent 35 g/dL Red Cell Distribution Width 18.9 % Platelet Count 254 x10^3/uL Sodium Level 134 mmol/L 134 mmol/L Potassium Level 4.3 mmol/L 4.6 mmol/L Chloride Level 98 mmol/L 98 mmol/L Carbon Dioxide Level 29 mmol/L 28 mmol/L Anion Gap 7 8 Blood Urea Nitrogen 20 mg/dL 29 mg/dL Creatinine 3.6 mg/dL 4.5 mg/dL Estimated GFR (Cockcroft-Gault) 16.3 12.6 Glucose Level 74 mg/dL 81 mg/dL Calcium Level 7.6 mg/dL 7.9 mg/dL Imaging: CXR 12/23 IMPRESSION: 1. Increase in diffuse mixed interstitial and alveolar infiltrate and small pleural effusions. 2. Stable cardiomegaly and cardiac pacemaker. 3. Right internal jugular catheter with the tip overlying expected position of the superior cavoatrial junction. PE: GEN: NAD - tissues w/ brown sputum LUNGS: wet cough HEART: RRR ABD: S/ND/NT NEURO/PSYCH: A & O 3, unclear historian A/P: MSSA bacteremia/right knee septic arthritis s/p I&D, GUERO on HD Anemia - not iron or B12 deficient; Coumadin held for h/o A Fib Coughing, ?nausea -- Symptoms poorly described. Encouraged PO. Continue PPI. Justicifation of Admission Dx: Justifications for Admission: Justification of Admission Dx: N/A PAMELA TREVIÑO Dec 23, 2020 09:29
[2020-12-23] MEDS ORDERED: 0.9 % SODIUM CHLORIDE 10 ML DISP.SYRIN. IV PRN ×2 (10:15)
[2020-12-23] MEDS ORDERED: DIALYSIS PATIENT. MC PRN ×2 (10:15)
[2020-12-23] MEDS ORDERED: IV NORMAL SALINE 1000ML BAG 1,000 ML IV PRN ×2 (10:15)
[2020-12-23] MEDS ORDERED: ALBUMIN HUMAN 25% 200 ML IV PRN (10:15)
--- NOTE | 2020-12-23 11:55 | PDOC ---
Dialysis Progress Note Date of Service: DATE: 12/23/20 TIME: 11:54 Dialysis Note Dialysis Note Seen on Hemodialysis, tolerating treatment Okay for now Vitals on Hemodialysis: 110 / 50 60 afeb General Appearance: Awake: Alert Oriented x ? Neck: No JVD or JVP Chest: CTA Yoan Heart: S1 S2 Abdomen - Soft NTND Extremities - ++ Edema ARF/ ? ATN : Dialysis as below F 180 NR 3.0 Hrs 3 K 2.5 Ca 140 Na 35 HC03 Qb 350 + Qd 500+ Heparin 0 Units Uf 3 Kgs or to dry weight as tolerated May give 25-50 gms of 25% Albumin if needed to maintain Hemodynamic stability Treatment plan reviewed and discussed with showcase maker Vitals Vital Signs Vital Signs Date Time Temp Pulse Resp B/P (MAP) Pulse Ox O2 Delivery O2 Flow Rate FiO2 12/23/20 07:00 97.4 60 20 105/49 (67) 95 97.4 12/22/20 21:45 Nasal Cannula 2.0 Labs Last Labs Laboratory Tests Test 12/22/20 09:45 12/23/20 06:20 White Blood Count 10.1 x10^3/uL (4.0-11.0) Red Blood Count 2.39 x10^6/uL (4.30-5.70) Hemoglobin 7.7 g/dL (13.0-17.5) Hematocrit 22.2 % (39.0-53.0) Mean Corpuscular Volume 93 fL (79-100) Mean Corpuscular Hemoglobin 32 pg (25-35) Mean Corpuscular Hemoglobin Concent 35 g/dL (31-37) Red Cell Distribution Width 18.9 % (11.5-14.5) Platelet Count 254 x10^3/uL (140-400) Sodium Level 134 mmol/L (136-145) 134 mmol/L (136-145) Potassium Level 4.3 mmol/L (3.5-5.1) 4.6 mmol/L (3.5-5.1) Chloride Level 98 mmol/L (98-107) 98 mmol/L (98-107) Carbon Dioxide Level 29 mmol/L (21-32) 28 mmol/L (21-32) Anion Gap 7 (6-14) 8 (6-14) Blood Urea Nitrogen 20 mg/dL (8-26) 29 mg/dL (8-26) Creatinine 3.6 mg/dL (0.7-1.3) 4.5 mg/dL (0.7-1.3) Estimated GFR (Cockcroft-Gault) 16.3 12.6 Glucose Level 74 mg/dL (70-99) 81 mg/dL (70-99) Calcium Level 7.6 mg/dL (8.5-10.1) 7.9 mg/dL (8.5-10.1) Laboratory Tests Test 12/23/20 06:20 Sodium Level 134 mmol/L (136-145) Potassium Level 4.6 mmol/L (3.5-5.1) Chloride Level 98 mmol/L (98-107) Carbon Dioxide Level 28 mmol/L (21-32) Anion Gap 8 (6-14) Blood Urea Nitrogen 29 mg/dL (8-26) Creatinine 4.5 mg/dL (0.7-1.3) Estimated GFR (Cockcroft-Gault) 12.6 Glucose Level 81 mg/dL (70-99) Calcium Level 7.9 mg/dL (8.5-10.1) Assessment Assessment Problems Medical Problems: (1) Hypokalemia Status: Acute (2) Person under investigation for COVID-19 Status: Acute (3) Pneumonia Status: Acute (4) Sepsis Status: Acute Plan Plan of Care Problems Medical Problems: (1) Hypokalemia Status: Acute (2) Person under investigation for COVID-19 Status: Acute (3) Pneumonia Status: Acute (4) Sepsis Status: Acute BC BALLESTEROS MD Dec 23, 2020 11:55
--- NOTE | 2020-12-23 12:14 | PDOC ---
MINERVA QUINONEZ [employer] 12/23/20 1214: CARDIO Progress Notes Date and Time Date of Service 12/23/2020 Time of Evaluation 1200 Subjective Subjective: No Chest Pain, No shortness of breath, No Palpitations Vitals Vitals Vital Signs Date Time Temp Pulse Resp B/P (MAP) Pulse Ox O2 Delivery O2 Flow Rate FiO2 12/23/20 07:00 97.4 60 20 105/49 (67) 95 97.4 12/22/20 21:45 Nasal Cannula 2.0 Weight Weight [ ] Input and Output Intake and Output Intake and Output 12/23/20 07:00 Intake Total 60 ml Output Total 100 ml Balance -40 ml Intake Oral 60 ml Output Urine Total 100 ml # Bowel Movements 2 Laboratory Labs Laboratory Tests Test 12/23/20 06:20 Sodium Level 134 mmol/L (136-145) Potassium Level 4.6 mmol/L (3.5-5.1) Chloride Level 98 mmol/L (98-107) Carbon Dioxide Level 28 mmol/L (21-32) Anion Gap 8 (6-14) Blood Urea Nitrogen 29 mg/dL (8-26) Creatinine 4.5 mg/dL (0.7-1.3) Estimated GFR (Cockcroft-Gault) 12.6 Glucose Level 81 mg/dL (70-99) Calcium Level 7.9 mg/dL (8.5-10.1) Microbiology Micro Microbiology 12/07/20 Urine Culture - Final, Complete 12/05/20 Blood Culture - Final, Complete NO GROWTH AFTER 5 DAYS 12/04/20 Gram Stain - Final, Complete 12/04/20 Aerobic and Anaerobic Culture - Final, Complete Review of Systems Constitutional: yes: alert, oriented Ears/Nose/Throat: Yes: no symptom reported Eyes: Yes: no symptom reported Pulmonary: Yes no symptom reported Cardiovascular: Yes edema Gastrointestional: Yes: no symptom reported Genitourinary: Yes: no symptom reported Musculoskeletal: Yes: no symptom reported Skin: Yes no symptom reported Psychiatric/Neurological: Yes: no symptom reported Endocrine: Yes: no symptom reported Physical Exam HEENT: Neck Supple W Full Motion Chest: Symmetric LUNGS: Other (diminished bases) Heart: other (V paced with underlying AFIB. rate controlled ) Abdomen: Soft N/T Extremities: Other (trace bilateral LE edema ) Neurology: alert, oriented, follow commands Assessment Assessment 1. Weakness, mechanical fall with right knee effusion: s/p I & D 2. Sepsis, MSSA bacteremia: no intracardiac vegetation per SOO. 3. SSS, s/p PPM. generator change ([employer]) 11/01/2020. normal function 4. CAD: clinically stable 5. Permanent AFIB: rate controlled with intermittent v-pacing. 6. Coagulopathy due to warfarin; OAC held. s/p vit K INR now down to 1.2 7. Chronic diastolic CHF; echo with normal EF and WM 8. GUERO; HD initiated 9. HTN: controlled 10. HLP: on statin 11. Anemia; s/p transfusion. Mild hemoptysis persists Recommendations Poor candidate for OAC given anemia, fall risk Restart ECASA 81 mg for stroke prevention. Monitor H/H Secondary prevention as able Metoprolol for rate control Avoid nephrotoxins Fluid offloading via HD Ongoing treatment of sepsis/bacteremia per ID team Supportive care Consider outpatient referral of LAAO Justicifation of Admission Dx: Justifications for Admission: Justification of Admission Dx: N/A IRMA GONZALES MD 12/23/20 1401: CARDIO Progress Notes Assessment Assessment Patient seen and examined. Agree with ACTIVITY AIDE's assessment and plan Perm AF rate controlled - prob poor mcc AC candidate Ac on chr diast HF better compensated CAD, SSS s/p PPM stable SOO did not show any intracardiac thrombus or vegetation Continue treatment of sepsis/bacteremia per ID team Continue HD per nephrology team We will consider outpatient referral for LAAO procedure MINERVA QUINONEZ APRN Dec 23, 2020 12:14 IRMA GONZALES MD Dec 23, 2020 14:01
[2020-12-23] MEDS: ASPIRIN ENTERIC COATED 81 MG TABLET.DR. PO SCH (13:00)
[2020-12-23] MEDS: CEFEPIME HCL IV Push 1 GM VIAL. IVP SCH (13:57)
[2020-12-23] MEDS ORDERED: LIDOCAINE 1%/EPI 1:100,000 20 ML VIAL. ONE (13:58)
[2020-12-23] MEDS ORDERED: MIDAZOLAM HCL/PF 2 MG/2 ML VIAL. IV ONE (14:00)
[2020-12-23] MEDS ORDERED: fentaNYL PF VIAL 100 MCG/2 ML VIAL IV ONE (14:00)
[2020-12-23] MEDS ORDERED: LIDOCAINE 1%/EPI 1:100,000 20 ML VIAL. INJ ONE (14:15)
--- NOTE | 2020-12-23 14:53 | RAD ---
Conversion of a right internal jugular temporary dialysis catheter to tunneled catheter. 12/23/2020 Sterility: All elements of maximal sterile barrier technique including the use of a cap, mask, steril e gown, sterile gloves, large sterile sheet, appropriate hand hygiene, and 2% chlorhexidine for cutan eous antisepsis (or acceptable alternative antiseptic per current guidelines) were followed for this procedure. Consent: The procedure was explained in its entirety to the patient or the patients designated repres entative by a member of the treatment team, including a discussion of the risks, benefits and commonl y accepted alternatives to the procedure, as well as the expected consequences of no therapy whatsoev er. Discussion of the risks included, but was not limited to, those that are most frequent and thos e that are rare but possibly severe or life-threatening, as well as the possibility of unforeseen com plications. Fluoroscopic evaluation demonstrates the pacing catheter be in acceptable position. A guidewire was a dvanced through the catheter into the IVC. The catheter was removed over the wire. A 23 cm tip to cuf f palindrome dialysis catheter was advanced from a small dermatotomy several centimeters inferior to the right collarbone, to the access site. The peel-away sheath was advanced into the right atrium. Th e new catheter was delivered through the peel-away sheath such that the catheter was then proximal ri ght atrium with the patient supine. The new catheter was found to flush and aspirate normally. The ca theter was secured. Sterile dressings were applied. No immediate complications were identified. Total fluoroscopy time: 0.4 minutes Dose area product: 1.9 Hickey centimeter squared Sedation: The procedure was performed under conscious sedation including continuous cardiopulmonary m onitoring via a dedicated sedation nurse. [id number] sedation time: 30 minutes IMPRESSION: Conversion of right internal jugular temporary dialysis catheter to tunneled catheter Electronically signed by: Gilbert Avery MD (12/23/2020 2:51 PM) [id number]
[2020-12-23] MEDS: DAPTOmycin (GENERIC) IVPB 500 MG in IV NORMAL SALINE 50ML 50 ML IV SCH (16:00)
[2020-12-23] MEDS: IV NORMAL SALINE 1000ML BAG 1,000 ML IV SCH (17:09)
--- NOTE | 2020-12-23 20:40 | PN ---
DATE: 12/23/2020 DAILY PROGRESS NOTE LOCATION: He is in room #514. SUBJECTIVE: This 85-year-old male remains hospitalized with MSSA sepsis with resultant acute renal failure, still on dialysis. He is sleeping soundly this morning and not awakened. OBJECTIVE: VITAL SIGNS: Stable. He is afebrile. Blood pressures remain on the low side. CHEST: Clear. HEART: Regular. ABDOMEN: Benign. ASSESSMENT: 1. Methicillin-resistant Staphylococcus aureus sepsis. 2. Acute renal failure, anemia, stable after transfusion. 3. Atrial fibrillation. PLAN: Continue to trend hemoglobin. Help of all consultants appreciated. MIESHA DR: Danielle TID: [id number]
[2020-12-23] MEDS: ATORVASTATIN CALCIUM 20 MG TABLET PO SCH (22:11)
[2020-12-23] MEDS: ACETAMINOPHEN 325 MG TABLET. PO SCH (22:11)
[2020-12-23] MEDS: ZOLPIDEM 5 MG TABLET. PO PRN (22:11)
[2020-12-23] MEDS: EPOETIN ALFA-EPBX for ESRD 20,000 UNIT/ML VIAL. SQ SCH (22:12)
[2020-12-24 03:00] VITALS: BP 97/47
[2020-12-24] MEDS: PANTOPRAZOLE 40 MG TABLET.DR. PO SCH (06:15)
[2020-12-24 07:35] VITALS: BP 101/42
--- NOTE | 2020-12-24 08:20 | PDOC ---
Infectious Disease Note Subjective: Subjective Patient continues to have cough with blood-tinged sputum Nausea is improving Continues to have back stiffness Denies any spine pain or chest pain with deep breathing,No vomiting Continues to cough but not worsened Denies any fever Vital Signs: Vital Signs Vital Signs Date Time Temp Pulse Resp B/P (MAP) Pulse Ox O2 Delivery O2 Flow Rate FiO2 12/24/20 07:35 97.8 60 18 101/42 (61) 94 Nasal Cannula 3.0 97.8 Physical Exam: PHYSICAL EXAM GENERAL: Alert, oriented x 3 male, in no acute distress. Hard of hearing HEENT: Normocephalic, atraumatic. Anicteric. NECK: Supple, no JVD. Temporary HD catheter in place clean LUNGS: Clear except for decreased breath sounds at the bases. HEART: S1, S2, systolic murmur present. Pacemaker site looks okay. PPM incision site dry scab no redness no fluctuance ABDOMEN: Soft, nontender, nondistended. EXTREMITIES: Right knee prepatellar swelling, erythema and warmth are improving No cyanosis or clubbing DERMATOLOGIC: Warm, dry, no generalized rash. NEUROLOGIC: Alert and oriented x 3, grossly nonfocal. PSYCHIATRIC: Calm and cooperative. Spine no spine tenderness Paraspinal muscle strain Medications: Inpatient Meds: Medications reviewed. Labs: Micro Chest x-ray IMPRESSION: 1. Increase in diffuse mixed interstitial and alveolar infiltrate and small pleural effusions. 2. Stable cardiomegaly and cardiac pacemaker. 3. Right internal jugular catheter with the tip overlying expected position of the superior cavoatrial junction. Objective: Assessment: Persistent methicillin sensitive staph aureus bacteremia 4 of 4 bottles present on admission 11/28/2020, November 30 and December 02 History of PPM.H/O recent battery exchange. SOO negative for vegetation or thrombus Rt [place] joint MSSA septic arthritis status post synovial aspirate WBC 30,000 RBC 66,000 Status post irrigation debridement of right knee joint and prepatellar bursa on December 04, 2020 Cultures positive for MSSA Sepsis from Gram-positive bacteremia. ImprovED Leukocytosis and bandemia. ImprovED Generalized weakness. Improving History of fall. Hypokalemia.Hyponatremia. Anemia History of atrial fibrillation. Hypertension. Coagulopathy GUERO urine eosinophil negative Pulmonary infiltrates and small pleural effusion appears multifactorial could be aspiration and or mild CHF Nausea and vomiting Plan: Plan of Care Continue daptomycin was on nafcillin Continue cefepime, renal dosing December 22, 2020 Zyvox pending sputum cultures. Maintain aspiration precautions Follow-up sputum for Gram stain and cultures, gram-negative alexis, gram-positive cocci Repeat blood cultures negative from December 05 Wound care as directed by orthopedics Monitor labs and cultures. Physical therapy and OT as directed by orthopedics Management of muscular strain by primary Continue supportive care. Discussed with nursing staff ELIZABETH BALLESTEROS MD Dec 24, 2020 08:20
[2020-12-24] MEDS: ASPIRIN ENTERIC COATED 81 MG TABLET.DR. PO SCH (08:40)
[2020-12-24] MEDS: LACTOBACILLUS RHAMNOSUS GG 1 CAPSULE. PO SCH ×2 (08:40→22:38)
[2020-12-24] MEDS: METOPROLOL SUCC 24HR ER 25 MG TAB.ER.24H. PO SCH (08:41)
--- NOTE | 2020-12-24 11:23 | PDOC ---
Provider Note Date of Service: DATE: 12/24/20 TIME: 11:19 Provider Note no temp, status same re dialysis- labs ok, anemia- on dapto/zyvox, cont all same Justifications for Admission Other Justification BRADLEY ACEVES MD Dec 24, 2020 11:22
[2020-12-24 11:30] VITALS: BP 98/47
[2020-12-24] MEDS: CEFEPIME HCL IV Push 1 GM VIAL. IVP SCH (12:16)
[2020-12-24] MEDS: LINEZOLID 600 MG TABLET PO SCH ×2 (12:16→22:38)
[2020-12-24 12:40] LABS: BASO # 0.1 x10^3/uL (0.0-0.2); BASO % 1 % (0-3); EOS # 0.1 x10^3/uL (0.0-0.7); EOS % 1 % (0-3); HEMATOCRIT 22.1 % (39.0-53.0); HEMOGLOBIN 7.3 g/dL (13.0-17.5); LYMPH # 1.3 x10^3/uL (1.0-4.8); LYMPH % 14 % (24-48); MEAN CORPUSCULAR HEMOGLOBIN 31 pg (25-35); MEAN CORPUSCULAR HGB CONC 33 g/dL (31-37); MEAN CORPUSCULAR VOLUME 95 fL (79-100); MONO # 0.8 x10^3/uL (0.0-1.1); MONO % 9 % (0-9); NEUT # 6.6 x10^3/uL (1.8-7.7); NEUT % 75 % (31-73); PLATELET COUNT 260 x10^3/uL (140-400); RED BLOOD COUNT 2.32 x10^6/uL (4.30-5.70); RED CELL DISTRIBUTION WIDTH 20.1 % (11.5-14.5); WHITE BLOOD COUNT 8.7 x10^3/uL (4.0-11.0)
--- NOTE | 2020-12-24 12:57 | PDOC ---
PROGRESS NOTES Date of Service DATE: 12/24/20 TIME: 12:54 Subjective Subjective Patient seen and examined Objective Objective Vital Signs Date Time Temp Pulse Resp B/P (MAP) Pulse Ox O2 Delivery O2 Flow Rate FiO2 12/24/20 11:30 97.5 65 20 98/47 (64) 94 Nasal Cannula 5.0 97.5 Intake and Output 12/24/20 07:00 Intake Total 300 ml Balance 300 ml Intake Oral 300 ml # Voids 2 Physical Exam Abdomen: Normal bowel sounds Heart: Other (Irregularly irregular) General: mild distress Lungs: Other (Mildly decreased breath sounds) Assessment Assessment Problems Medical Problems: (1) Hypokalemia Status: Acute (2) Person under investigation for COVID-19 Status: Acute (3) Pneumonia Status: Acute (4) Sepsis Status: Acute Plan Plan of Care Weakness, mechanical fall with right knee effusion: s/p I & D Sepsis, MSSA bacteremia: no intracardiac vegetation per SOO. Continuing antibiotics as per the ID service. SSS, s/p PPM. generator change ([place]) 11/01/2020. normal function CAD: clinically stable Permanent AFIB: rate controlled with intermittent v-pacing. Poor candidate for OAC. On low-dose aspirin and beta-blockers. Possible future referral for an LAAO. Coagulopathy due to warfarin; OAC held. s/p vit K INR now down to 1.2 Chronic diastolic CHF; echo with normal EF and WM GUERO; HD initiated. Followed by renal. HTN: controlled HLP: on statin Anemia; s/p transfusion. Comment Review of Relevant I have reviewed the following items mel (where applicable) has been applied. Labs Laboratory Tests Test 12/23/20 06:20 12/24/20 12:30 Sodium Level 134 mmol/L (136-145) Potassium Level 4.6 mmol/L (3.5-5.1) Chloride Level 98 mmol/L (98-107) Carbon Dioxide Level 28 mmol/L (21-32) Anion Gap 8 (6-14) Blood Urea Nitrogen 29 mg/dL (8-26) Creatinine 4.5 mg/dL (0.7-1.3) Estimated GFR (Cockcroft-Gault) 12.6 Glucose Level 81 mg/dL (70-99) Calcium Level 7.9 mg/dL (8.5-10.1) White Blood Count 8.7 x10^3/uL (4.0-11.0) Red Blood Count 2.32 x10^6/uL (4.30-5.70) Hemoglobin 7.3 g/dL (13.0-17.5) Hematocrit 22.1 % (39.0-53.0) Mean Corpuscular Volume 95 fL (79-100) Mean Corpuscular Hemoglobin 31 pg (25-35) Mean Corpuscular Hemoglobin Concent 33 g/dL (31-37) Red Cell Distribution Width 20.1 % (11.5-14.5) Platelet Count 260 x10^3/uL (140-400) Neutrophils (%) (Auto) 75 % (31-73) Lymphocytes (%) (Auto) 14 % (24-48) Monocytes (%) (Auto) 9 % (0-9) Eosinophils (%) (Auto) 1 % (0-3) Basophils (%) (Auto) 1 % (0-3) Neutrophils # (Auto) 6.6 x10^3/uL (1.8-7.7) Lymphocytes # (Auto) 1.3 x10^3/uL (1.0-4.8) Monocytes # (Auto) 0.8 x10^3/uL (0.0-1.1) Eosinophils # (Auto) 0.1 x10^3/uL (0.0-0.7) Basophils # (Auto) 0.1 x10^3/uL (0.0-0.2) Laboratory Tests Test 12/24/20 12:30 White Blood Count 8.7 x10^3/uL (4.0-11.0) Red Blood Count 2.32 x10^6/uL (4.30-5.70) Hemoglobin 7.3 g/dL (13.0-17.5) Hematocrit 22.1 % (39.0-53.0) Mean Corpuscular Volume 95 fL (79-100) Mean Corpuscular Hemoglobin 31 pg (25-35) Mean Corpuscular Hemoglobin Concent 33 g/dL (31-37) Red Cell Distribution Width 20.1 % (11.5-14.5) Platelet Count 260 x10^3/uL (140-400) Neutrophils (%) (Auto) 75 % (31-73) Lymphocytes (%) (Auto) 14 % (24-48) Monocytes (%) (Auto) 9 % (0-9) Eosinophils (%) (Auto) 1 % (0-3) Basophils (%) (Auto) 1 % (0-3) Neutrophils # (Auto) 6.6 x10^3/uL (1.8-7.7) Lymphocytes # (Auto) 1.3 x10^3/uL (1.0-4.8) Monocytes # (Auto) 0.8 x10^3/uL (0.0-1.1) Eosinophils # (Auto) 0.1 x10^3/uL (0.0-0.7) Basophils # (Auto) 0.1 x10^3/uL (0.0-0.2) Microbiology 12/22/20 Gram Stain Evaluation - Final, Resulted 12/22/20 Respiratory Culture - Preliminary, Resulted 12/07/20 Urine Culture - Final, Complete 12/05/20 Blood Culture - Final, Complete NO GROWTH AFTER 5 DAYS 12/04/20 Gram Stain - Final, Complete 12/04/20 Aerobic and Anaerobic Culture - Final, Complete Medications Current Medications Ceftriaxone Sodium (Rocephin) 1 gm 1X ONCE IVP Last administered on 11/28/20at 13:30; Start 11/28/20 at 13:30; Stop 11/28/20 at 13:31; Status DC Azithromycin 500 mg/Sodium Chloride 250 ml @ 250 mls/hr 1X ONCE IV ; Start 11/28/20 at 13:30; Stop 11/28/20 at 14:29; Status UNV Azithromycin 250 ml @ 250 mls/hr 1X ONCE IV Last administered on 11/28/20at 15:11; Start 11/28/20 at 13:30; Stop 11/28/20 at 14:29; Status DC Acetaminophen (Tylenol) 1,000 mg 1X ONCE PO Last administered on 11/28/20at 15:10; Start 11/28/20 at 14:45; Stop 11/28/20 at 14:46; Status DC Potassium Chloride/Water 100 ml @ 50 mls/hr 1X ONCE IV Last administered on 11/28/20at 16:20; Start 11/28/20 at 14:45; Stop 11/28/20 at 16:44; Status DC Potassium Chloride (Klor-Con) 40 meq 1X ONCE PO Last administered on 11/28/20at 16:21; Start 11/28/20 at 14:45; Stop 11/28/20 at 14:46; Status DC Sodium Chloride 1,000 ml @ 1,000 mls/hr 1X ONCE IV Last administered on 11/28/20at 17:41; Start 11/28/20 at 17:45; Stop 11/28/20 at 18:44; Status DC Acetaminophen (Tylenol) 650 mg PRN Q6HRS PRN PO MILD PAIN / TEMP > 100.3'F Last administered on 11/28/20at 20:36; Start 11/28/20 at 20:30 Influenza Virus Vaccine Quadrival (Flulaval Quad [id number] Syringe) 0.5 ml ONCE ONCE VAX IM Last administered on 11/29/20at 10:06; Start 11/29/20 at 09:00; Stop 11/29/20 at 09:01; Status DC Acetaminophen/ Hydrocodone Bitart (Lortab 5/325) 1 tab PRN Q4HRS PRN PO PAIN mod/severe Last administered on 12/05/20at 17:38; Start 11/28/20 at 22:45; Stop 12/05/20 at 19:50; Status DC Ceftriaxone Sodium (Rocephin) 1 gm Q24H IVP ; Start 11/29/20 at 13:00; Stop 11/29/20 at 13:11; Status DC Azithromycin 250 ml @ 250 mls/hr DAILY ONCE IV ; Start 11/30/20 at 09:00; Stop 11/30/20 at 09:59; Status UNV Azithromycin 500 mg/Sodium Chloride 250 ml @ 250 mls/hr Q24H IV ; Start 11/29/20 at 15:00; Stop 11/29/20 at 13:50; Status DC Acetaminophen (Tylenol) 650 mg QHS PO Last administered on 12/23/20at 22:11; Start 11/29/20 at 21:00 Aspirin (Aspirin Chewable) 81 mg DAILY PO Last administered on 12/19/20at 12:40; Start 11/30/20 at 09:00; Stop 12/19/20 at 14:26; Status DC Docusate Sodium (Colace) 100 mg PRN BID PRN PO HARD STOOLS Last administered on 12/01/20at 12:10; Start 11/29/20 at 09:45; Stop 12/17/20 at 17:41; Status DC Warfarin Sodium (Coumadin) 3.75 mg DAILY PO ; Start 11/30/20 at 09:00; Status UNV Atorvastatin Calcium (Lipitor) 20 mg QHS PO Last administered on 12/18/20at 20:29; Start 11/29/20 at 21:00; Stop 12/19/20 at 14:26; Status DC Daptomycin 500 mg/ Sodium Chloride 50 ml @ 100 mls/hr Q24H IV Last administered on 11/30/20at 13:19; Start 11/29/20 at 13:00; Stop 12/01/20 at 07:32; Status DC Ceftriaxone Sodium (Rocephin) 2 gm Q24H IVP Last administered on 11/30/20at 13:21; Start 11/29/20 at 14:00; Stop 12/01/20 at 09:19; Status DC Lactobacillus Rhamnosus (Culturelle) 1 cap BID PO Last administered on 12/24/20at 08:40; Start 11/29/20 at 21:00 Daptomycin 580 mg/ Sodium Chloride 50 ml @ 100 mls/hr Q24H IV Last admini stered on 12/01/20at 08:52; Start 12/01/20 at 07:30; Stop 12/01/20 at 09:19; Status DC Nafcillin Sodium 2 gm/Dextrose 100 ml @ 200 mls/hr Q4HRS IV Last administered on 12/21/20at 04:11; Start 12/01/20 at 10:00; Stop 12/21/20 at 08:19; Status DC Carvedilol (Coreg) 6.25 mg DAILY PO ; Start 12/01/20 at 12:00; Stop 12/01/20 at 12:00; Status DC Furosemide (Lasix) 40 mg DAILY PO Last administered on 12/07/20at 08:28; Start 12/01/20 at 12:00; Stop 12/07/20 at 14:46; Status DC Potassium Chloride (Klor-Con) 20 meq DAILYWBKFT PO Last administered on 12/07/20at 08:28; Start 12/02/20 at 08:00; Stop 12/07/20 at 14:46; Status DC Potassium Chloride (Klor-Con) 20 meq 1X ONCE PO Last administered on 12/01/20at 12:12; Start 12/01/20 at 11:15; Stop 12/01/20 at 11:27; Status DC Carvedilol (Coreg) 3.125 mg BIDWMEALS PO Last administered on 12/03/20at 16:39; Start 12/01/20 at 12:00; Stop 12/05/20 at 20:11; Status DC Lidocaine HCl (Lidocaine 1% 20ml Vial) 10 ml 1X ONCE INJ ; Start 12/01/20 at 16:00; Stop 12/01/20 at 16:01; Status DC Ringer's Solution 1,000 ml @ 50 mls/hr Q20H IV Last administered on 12/05/20at 12:10; Start 12/05/20 at 07:00; Stop 12/05/20 at 18:59; Status DC Phytonadione (Vitamin K Ampule) 10 mg 1X ONCE SQ Last administered on 12/02/20at 11:09; Start 12/02/20 at 10:45; Stop 12/02/20 at 10:46; Status DC Sodium Chloride (Saline Mist Nasal) 1 hiro PRN Q1HR PRN NS NASAL CONGESTION Last administered on 12/20/20at 23:52; Start 12/02/20 at 20:45 Phytonadione (Vitamin K Ampule) 10 mg 1X ONCE SQ Last administered on 12/03/20at 11:17; Start 12/03/20 at 11:00; Stop 12/03/20 at 11:01; Status DC Docusate Sodium (Colace) 100 mg BID PO Last administered on 12/20/20at 08:52; Start 12/03/20 at 21:00; Stop 12/21/20 at 11:19; Status DC Polyethylene Glycol (miraLAX PACKET) 17 gm PRN DAILY PRN PO CONSTIPATION Last administered on 12/06/20at 09:16; Start 12/03/20 at 19:00 Fentanyl Citrate (Fentanyl 2ml Vial) 25 mcg PRN Q5MIN PRN IVP MILD PAIN 1-3; Start 12/04/20 at 09:30; Stop 12/05/20 at 09:29; Status DC Fentanyl Citrate (Fentanyl 2ml Vial) 50 mcg PRN Q5MIN PRN IVP MODERATE PAIN 4- 6; Start 12/04/20 at 09:30; Stop 12/05/20 at 09:29; Status DC Morphine Sulfate (Morphine Sulfate) 1 mg PRN Q10MIN PRN IVP SEVERE PAIN 7-10; Start 12/04/20 at 09:30; Stop 12/05/20 at 09:29; Status DC Ringer's Solution 1,000 ml @ 30 mls/hr Q24H IV ; Start 12/04/20 at 09:30; Stop 12/04/20 at 21:29; Status DC Hydromorphone HCl (Dilaudid) 0.5 mg PRN Q10MIN PRN IVP SEVERE PAIN 7-10, 2nd CHOICE; Start 12/04/20 at 09:30; Stop 12/05/20 at 09:29; Status DC Prochlorperazine Edisylate (Compazine) 5 mg PACU PRN PRN IVP NAUSEA, MRX1; Start 12/04/20 at 09:30; Stop 12/05/20 at 09:29; Status DC Propofol (Diprivan) 200 mg STK-MED ONCE IV ; Start 12/04/20 at 10:43; Stop 12/04/20 at 10:43; Status DC Lidocaine HCl (Lidocaine Pf 2% Vial) 5 ml STK-MED ONCE .ROUTE ; Start 12/04/20 at 10:43; Stop 12/04/20 at 10:43; Status DC Phenylephrine HCl (PHENYLEPHRINE in 0.9% NACL PF) 1 mg STK-MED ONCE IV ; Start 12/04/20 at 10:43; Stop 12/04/20 at 10:43; Status DC Sevoflurane (Ultane) 60 ml STK-MED ONCE IH ; Start 12/04/20 at 11:14; Stop 12/04/20 at 11:14; Status DC Dexamethasone Sodium Phosphate (Decadron) 4 mg STK-MED ONCE .ROUTE ; Start 12/04/20 at 11:26; Stop 12/04/20 at 11:26; Status DC Ondansetron HCl (Zofran) 4 mg STK-MED ONCE .ROUTE ; Start 12/04/20 at 11:26; Stop 12/04/20 at 11:26; Status DC Fentanyl Citrate (Fentanyl 2ml Vial) 100 mcg STK-MED ONCE .ROUTE ; Start 12/04/20 at 11:26; Stop 12/04/20 at 11:26; Status DC Daptomycin 500 mg/ Sodium Chloride 50 ml @ 100 mls/hr Q24H IV Last administered on 12/11/20at 10:46; Start 12/05/20 at 10:00; Stop 12/11/20 at 17:00; Status DC Propofol (Diprivan) 200 mg STK-MED ONCE IV ; Start 12/05/20 at 09:29; Stop 12/05/20 at 09:30; Status DC Lidocaine HCl (Viscous Lidocaine) 15 ml STK-MED ONCE .ROUTE ; Start 12/05/20 at 10:06; Stop 12/05/20 at 10:06; Status DC Lidocaine HCl (Xylocaine 2% Topical 30gm Tube) 30 hiro STK-MED ONCE TP ; Start 12/05/20 at 10:06; Stop 12/05/20 at 10:06; Status DC Benzocaine (Hurricaine One) 1 spray STK-MED ONCE .ROUTE ; Start 12/05/20 at 10:06; Stop 12/05/20 at 10:07; Status DC Acetaminophen/ Hydrocodone Bitart (Lortab 10/325) 1 tab PRN Q4HRS PRN PO MODERATE TO SEVERE PAIN Last administered on 12/22/20at 21:13; Start 12/05/20 at 20:00 Zolpidem Tartrate (Ambien) 5 mg PRN QHS PRN PO INSOMNIA Last administered on 12/23/20at 22:11; Start 12/05/20 at 20:00 Sodium Chloride 1,000 ml @ 1,000 mls/hr 1X ONCE IV Last administered on 12/06/20at 09:32; Start 12/06/20 at 09:15; Stop 12/06/20 at 10:14; Status DC Sodium Chloride 1,000 ml @ 100 mls/hr 1X ONCE IV Last administered on 12/06/20at 15:30; Start 12/06/20 at 13:15; Stop 12/06/20 at 23:14; Status DC Sodium Chloride 1,000 ml @ 100 mls/hr 1X ONCE IV Last administered on 12/07/20at 13:24; Start 12/07/20 at 11:45; Stop 12/08/20 at 10:55; Status DC Metoprolol Succinate (Toprol Xl) 25 mg DAILY PO Last administered on 12/24/20at 08:41; Start 12/09/20 at 09:00 Potassium Chloride (Klor-Con) 20 meq 1X ONCE PO Last administered on 12/10/20at 18:52; Start 12/10/20 at 19:00; Stop 12/10/20 at 19:01; Status DC Daptomycin 500 mg/ Sodium Chloride 50 ml @ 100 mls/hr Q48H IV Last administered on 12/21/20at 16:29; Start 12/13/20 at 10:00 Lidocaine HCl (Buffered Lidocaine 1%) 3 ml STK-MED ONCE .ROUTE ; Start 12/12/20 at 10:27; Stop 12/12/20 at 10:27; Status DC Sodium Chloride 1,000 ml @ 1,000 mls/hr Q1H PRN IV hypotension; Start 12/12/20 at 12:00; Stop 12/12/20 at 17:59; Status DC Albumin Human 200 ml @ 200 mls/hr 1X PRN PRN IV Hypotension; Start 12/12/20 at 12:00; Stop 12/12/20 at 17:59; Status DC Sodium Chloride (Normal Saline Flush) 10 ml 1X PRN PRN IV AP catheter pack; Start 12/12/20 at 12:00; Stop 12/13/20 at 11:59; Status DC Sodium Chloride (Normal Saline Flush) 10 ml 1X PRN PRN IV HEAT TREATER APPRENTICE catheter pack; Start 12/12/20 at 12:00; Stop 12/13/20 at 11:59; Status DC Info (PHARMACY MONITORING -- do not chart) 1 each PRN DAILY PRN MC SEE COMMENTS; Start 12/12/20 at 12:00; Status UNV Info (PHARMACY MONITORING -- do not chart) 1 each PRN DAILY PRN MC SEE COMMENTS; Start 12/12/20 at 12:00; Status Cancel Lidocaine HCl (Buffered Lidocaine 1%) 4 ml 1X ONCE INJ Last administered on 12/12/20at 13:11; Start 12/12/20 at 13:15; Stop 12/12/20 at 13:18; Status DC Sodium Chloride 1,000 ml @ 1,000 mls/hr Q1H PRN IV hypotension; Start 12/13/20 at 09:30; Stop 12/13/20 at 15:29; Status DC Sodium Chloride 1,000 ml @ 400 mls/hr Q2H30M PRN IV PATENCY; Start 12/13/20 at 09:30; Stop 12/13/20 at 21:29; Status DC Info (PHARMACY MONITORING -- do not chart) 1 each PRN DAILY PRN MC SEE COMMENTS; Start 12/13/20 at 09:30; Status UNV Info (PHARMACY MONITORING -- do not chart) 1 each PRN DAILY PRN MC SEE COMMENTS; Start 12/13/20 at 09:30; Status UNV Epoetin Krishna-epbx (RETACRIT for ESRD PTS) 10,000 unit MoWeFr@2100 SQ Last administered on 12/23/20at 22:12; Start 12/14/20 at 21:00 Sodium Chloride 1,000 ml @ 1,000 mls/hr Q1H PRN IV hypotension; Start 12/15/20 at 07:00; Stop 12/15/20 at 12:59; Status DC Sodium Chloride 1,000 ml @ 400 mls/hr Q2H30M PRN IV PATENCY; Start 12/15/20 at 07:00; Stop 12/15/20 at 18:59; Status DC Info (PHARMACY MONITORING -- do not chart) 1 each PRN DAILY PRN MC SEE COMMENTS; Start 12/15/20 at 07:00; Stop 12/15/20 at 07:00; Status DC Info (PHARMACY MONITORING -- do not chart) 1 each PRN DAILY PRN MC SEE COMMENTS; Start 12/15/20 at 07:00; Stop 12/15/20 at 07:00; Status DC Sodium Chloride 1,000 ml @ 1,000 mls/hr Q1H PRN IV hypotension; Start 12/17/20 at 10:30; Stop 12/17/20 at 16:29; Status DC Albumin Human 200 ml @ 200 mls/hr 1X PRN PRN IV Hypotension Last administered on 12/17/20at 11:15; Start 12/17/20 at 10:30; Stop 12/17/20 at 16:29; Status DC Sodium Chloride 1,000 ml @ 400 mls/hr Q2H30M PRN IV PATENCY; Start 12/17/20 at 10:30; Stop 12/17/20 at 22:29; Status DC Info (PHARMACY MONITORING -- do not chart) 1 each PRN DAILY PRN MC SEE COMMENTS; Start 12/17/20 at 11:15; Stop 12/19/20 at 13:24; Status DC Info (PHARMACY MONITORING -- do not chart) 1 each PRN DAILY PRN MC SEE COMMENTS; Start 12/17/20 at 11:15; Status UNV Docusate Sodium (Colace) 100 mg PRN BID PRN PO HARD STOOLS; Start 12/17/20 at 17:45 Sodium Chloride 1,000 ml @ 30 mls/hr Q24H IV Last administered on 12/21/20at 20:34; Start 12/18/20 at 18:45 Sodium Chloride 1,000 ml @ 1,000 mls/hr Q1H PRN IV hypotension; Start 12/19/20 at 08:30; Stop 12/19/20 at 14:29; Status DC Albumin Human 100 ml @ 100 mls/hr 1X PRN PRN IV Hypotension; Start 12/19/20 at 08:30; Stop 12/19/20 at 14:29; Status DC Sodium Chloride 1,000 ml @ 400 mls/hr Q2H30M PRN IV PATENCY; Start 12/19/20 at 08:30; Stop 12/19/20 at 20:29; Status DC Info (PHARMACY MONITORING -- do not chart) 1 each PRN DAILY PRN MC SEE COMMENTS; Start 12/19/20 at 08:30; Stop 12/19/20 at 13:24; Status DC Info (PHARMACY MONITORING -- do not chart) 1 each PRN DAILY PRN MC SEE COMMENTS; Start 12/19/20 at 08:30; Stop 12/21/20 at 07:55; Status DC Atorvastatin Calcium (Lipitor) 40 mg QHS PO Last administered on 12/23/20at 22:11; Start 12/19/20 at 21:00 Pantoprazole Sodium (Protonix) 40 mg DAILYAC PO Last administered on 12/24/20at 06:15; Start 12/20/20 at 09:15 Sodium Chloride 1,000 ml @ 1,000 mls/hr Q1H PRN IV hypotension; Start 12/21/20 at 08:00; Stop 12/21/20 at 13:59; Status DC Sodium Chloride 1,000 ml @ 400 mls/hr Q2H30M PRN IV PATENCY; Start 12/21/20 at 08:00; Stop 12/21/20 at 19:59; Status DC Info (PHARMACY MONITORING -- do not chart) 1 each PRN DAILY PRN MC SEE COMMENTS; Start 12/21/20 at 08:00; Stop 12/21/20 at 07:54; Status DC Info (PHARMACY MONITORING -- do not chart) 1 each PRN DAILY PRN MC SEE COMMENTS; Start 12/21/20 at 08:00; Status Cancel Cefepime HCl (Maxipime) 1 gm Q24H IVP Last administered on 12/24/20at 12:16; Start 12/22/20 at 11:00 Furosemide (Lasix) 40 mg 1X ONCE IVP Last administered on 12/22/20at 11:17; Start 12/22/20 at 11:15; Stop 12/22/20 at 11:16; Status DC Sodium Chloride 1,000 ml @ 1,000 mls/hr Q1H PRN IV hypotension; Start 12/23/20 at 10:15; Stop 12/23/20 at 16:14; Status DC Albumin Human 200 ml @ 200 mls/hr 1X PRN PRN IV Hypotension; Start 12/23/20 at 10:15; Stop 12/23/20 at 16:14; Status DC Sodium Chloride (Normal Saline Flush) 10 ml 1X PRN PRN IV AP catheter pack; Start 12/23/20 at 10:15; Stop 12/24/20 at 10:14; Status DC Sodium Chloride (Normal Saline Flush) 10 ml 1X PRN PRN IV HEAT TREATER APPRENTICE catheter pack; Start 12/23/20 at 10:15; Stop 12/24/20 at 10:14; Status DC Sodium Chloride 1,000 ml @ 400 mls/hr Q2H30M PRN IV PATENCY; Start 12/23/20 at 10:15; Stop 12/23/20 at 22:14; Status DC Info (PHARMACY MONITORING -- do not chart) 1 each PRN DAILY PRN MC SEE COMMENTS; Start 12/23/20 at 10:15; Status UNV Info (PHARMACY MONITORING -- do not chart) 1 each PRN DAILY PRN MC SEE COMMENTS; Start 12/23/20 at 10:15 Aspirin (Ecotrin) 81 mg DAILYWBKFT PO Last administered on 12/24/20at 08:40; Start 12/23/20 at 13:00 Cefazolin Sodium/ Dextrose 50 ml @ 100 mls/hr 1X PREOP PRN IV PRIOR TO PROCEDURE Last administered on 12/23/20at 14:46; Start 12/23/20 at 14:00; Stop 12/24/20 at 13:59 Midazolam HCl (Versed) 2 mg 1X ONCE IV Last administered on 12/23/20at 14:00; Start 12/23/20 at 14:00; Stop 12/23/20 at 14:06; Status DC Fentanyl Citrate (Fentanyl 2ml Vial) 100 mcg 1X ONCE IV Last administered on 12/23/20at 14:00; Start 12/23/20 at 14:00; Stop 12/23/20 at 14:06; Status DC Cefazolin Sodium/ Dextrose 50 ml @ As Directed STK-MED ONCE IV ; Start 12/23/20 at 13:57; Stop 12/23/20 at 13:58; Status DC Lidocaine/ Epinephrine (LIDOCAINE 1%-EPI 1:100,000 Multi-Dose) 20 ml STK-MED ONCE .ROUTE ; Start 12/23/20 at 13:58; Stop 12/23/20 at 13:58; Status DC Lidocaine/ Epinephrine (LIDOCAINE 1%-EPI 1:100,000 Multi-Dose) 20 ml 1X ONCE INJ Last administered on 12/23/20at 14:15; Start 12/23/20 at 14:15; Stop 12/23/20 at 14:16; Status DC Linezolid (Zyvox) 600 mg BID PO Last administered on 12/24/20at 12:16; Start 12/24/20 at 11:00 Active Scripts Active Nafcillin 2 Gm/ 100 Ml Inj (Nafcillin In Dextrose,Iso-Osm) 2 Gm/100 Ml Froz.piggy 2 Gm IV Q4HRS 30 Days Reported Acetaminophen 325 Mg Tablet 650 Mg PO QHS Aspirin 81 Mg Tab.chew 1 Tab PO DAILY Men's Multivitamin Tablet (Multivit-Min/Folic/Vit K/Lycop) 1 Each Tablet 1 Each PO DAILY Pravastatin Sodium 80 Mg Tablet 1 Tab PO DAILY Lasix (Furosemide) 40 Mg Tablet 1 Tab PO DAILY Colace (Docusate Sodium) 100 Mg Capsule 1 Cap PO PRN BID PRN Vitals/I & O Vital Sign - Last 24 Hours 12/23/20 12/23/20 12/23/20 12/23/20 14:00 14:38 15:00 15:15 Temp 98.0 98.0 Pulse 80 59 60 Resp 12 12 16 B/P (MAP) 103/38 (59) 105/44 (64) Pulse Ox 95 95 92 O2 Delivery Nasal Cannula NonRebreather Mask O2 Flow Rate 3.0 15.0 12/23/20 12/23/20 12/23/20 12/23/20 15:30 15:45 16:00 16:30 Pulse 64 66 61 B/P (MAP) 89/42 (58) 82/37 (52) 87/48 (61) 81/36 (51) 12/23/20 12/23/20 12/23/20 12/23/20 17:00 17:30 18:30 19:33 Pulse 63 106 60 60 B/P (MAP) 99/40 (59) 113/90 (98) 80/45 (57) 105/44 (64) 12/23/20 12/23/20 12/24/20 12/24/20 20:00 23:01 03:00 07:35 Temp 98.1 97.4 97.8 98.1 97.4 97.8 Pulse 58 56 60 Resp 19 18 18 B/P (MAP) 98/81 (87) 97/47 (64) 101/42 (61) Pulse Ox 96 95 94 O2 Delivery Nasal Cannula Nasal Cannula Nasal Cannula Nasal Cannula O2 Flow Rate 2.0 15.0 2.0 3.0 12/24/20 12/24/20 08:41 11:30 Temp 97.5 97.5 Pulse 60 65 Resp 20 B/P (MAP) 101/42 98/47 (64) Pulse Ox 94 O2 Delivery Nasal Cannula O2 Flow Rate 5.0 Intake and Output 12/23/20 12/23/20 12/24/20 15:00 23:00 07:00 Intake Total 100 ml 200 ml Balance 100 ml 200 ml Justifications for Admission Other Justification GREY VELOZ MD Dec 24, 2020 12:57
[2020-12-24] MEDS: HYDROcodone/APAP 10/325 1 TAB TABLET PO PRN (14:02)
[2020-12-24 14:53] VITALS: BP 111/99
[2020-12-24 19:49] VITALS: BP 95/45
[2020-12-24] MEDS: ATORVASTATIN CALCIUM 20 MG TABLET PO SCH (22:38)
[2020-12-24] MEDS: ACETAMINOPHEN 325 MG TABLET. PO SCH (22:38)
[2020-12-24 23:55] VITALS: BP 76/33
[2020-12-25 03:22] VITALS: BP 91/47
--- NOTE | 2020-12-25 04:10 | NUR ---
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
--- NOTE | 2020-12-25 04:30 | NUR ---
Patient has removed his oxygen nasal cannula, replaced, saturation 77%, does not answer when encouraged to breathe in deeply, his saturation remains 70's This tech writer placed a non-rebreathing mask on patient, noted he did not have breathing treatments, his saturation did improve to upper 90's, at approx 0510, his nasal cannula replaced, on 5 liters n/c, and the non-rebreather is removed, monitoring...
[2020-12-25 07:00] VITALS: BP 103/38
[2020-12-25 07:05] LABS: CREATININE 4.5 mg/dL (0.7-1.3); GFR 12.6; POTASSIUM 4.7 mmol/L (3.5-5.1)
[2020-12-25] MEDS: PANTOPRAZOLE 40 MG TABLET.DR. PO SCH ×2 (07:30→09:17)
[2020-12-25] MEDS: ASPIRIN ENTERIC COATED 81 MG TABLET.DR. PO SCH ×2 (08:00→09:16)
[2020-12-25] MEDS: LACTOBACILLUS RHAMNOSUS GG 1 CAPSULE. PO SCH ×2 (09:00→09:17)
[2020-12-25] MEDS ORDERED: MAGNESIUM SULFATE 2GM 50 ML IV PRN (09:15)
[2020-12-25] MEDS: METOPROLOL SUCC 24HR ER 25 MG TAB.ER.24H. PO SCH (09:17)
[2020-12-25] MEDS: IV NORMAL SALINE 1000ML BAG 1,000 ML IV SCH (09:17)
[2020-12-25] MEDS: LINEZOLID 600 MG TABLET PO SCH (09:17)
--- NOTE | 2020-12-25 09:33 | PDOC ---
Infectious Disease Note Subjective: Subjective Patient drowsy arousable, says feels ok but not answering any question d/w RN No vomiting or diarrhea O2 5 L by nasal cannula Vital Signs: Vital Signs Vital Signs Date Time Temp Pulse Resp B/P (MAP) Pulse Ox O2 Delivery O2 Flow Rate FiO2 12/25/20 09:17 63 103/38 12/25/20 07:00 97.9 18 93 Nasal Cannula 5.0 97.9 Physical Exam: PHYSICAL EXAM GENERAL: comfortable lethargic Hard of hearing HEENT: Normocephalic, atraumatic. Anicteric. NECK: Supple, no JVD. Temporary HD catheter in place clean LUNGS: Clear except for decreased breath sounds at the bases. HEART: S1, S2, systolic murmur present. Pacemaker site looks okay. PPM incision site dry scab no redness no fluctuance ABDOMEN: Soft, nontender, nondistended. EXTREMITIES: Right knee prepatellar swelling, erythema and warmth are improving No cyanosis or clubbing DERMATOLOGIC: Warm, dry, no generalized rash. NEUROLOGIC: lethargic PSYCHIATRIC: Calm and cooperative. Spine no spine tenderness Paraspinal muscle strain Medications: Inpatient Meds: Medications reviewed. Labs: Lab Laboratory Tests Test 12/24/20 12:30 12/25/20 05:55 White Blood Count 8.7 x10^3/uL (4.0-11.0) Red Blood Count 2.32 x10^6/uL (4.30-5.70) Hemoglobin 7.3 g/dL (13.0-17.5) Hematocrit 22.1 % (39.0-53.0) Mean Corpuscular Volume 95 fL (79-100) Mean Corpuscular Hemoglobin 31 pg (25-35) Mean Corpuscular Hemoglobin Concent 33 g/dL (31-37) Red Cell Distribution Width 20.1 % (11.5-14.5) Platelet Count 260 x10^3/uL (140-400) Neutrophils (%) (Auto) 75 % (31-73) Lymphocytes (%) (Auto) 14 % (24-48) Monocytes (%) (Auto) 9 % (0-9) Eosinophils (%) (Auto) 1 % (0-3) Basophils (%) (Auto) 1 % (0-3) Neutrophils # (Auto) 6.6 x10^3/uL (1.8-7.7) Lymphocytes # (Auto) 1.3 x10^3/uL (1.0-4.8) Monocytes # (Auto) 0.8 x10^3/uL (0.0-1.1) Eosinophils # (Auto) 0.1 x10^3/uL (0.0-0.7) Basophils # (Auto) 0.1 x10^3/uL (0.0-0.2) Sodium Level 132 mmol/L (136-145) Potassium Level 4.7 mmol/L (3.5-5.1) Chloride Level 96 mmol/L (98-107) Carbon Dioxide Level 25 mmol/L (21-32) Anion Gap 11 (6-14) Blood Urea Nitrogen 27 mg/dL (8-26) Creatinine 4.5 mg/dL (0.7-1.3) Estimated GFR (Cockcroft-Gault) 12.6 Glucose Level 84 mg/dL (70-99) Calcium Level 8.0 mg/dL (8.5-10.1) Micro Chest x-ray IMPRESSION: 1. Increase in diffuse mixed interstitial and alveolar infiltrate and small pleural effusions. 2. Stable cardiomegaly and cardiac pacemaker. 3. Right internal jugular catheter with the tip overlying expected position of the superior cavoatrial junction. Objective: Assessment: Persistent methicillin sensitive staph aureus bacteremia 4 of 4 bottles present on admission 11/28/2020, November 30 and December 02 History of PPM.H/O recent battery exchange. SOO negative for vegetation or thrombus Rt navajo joint MSSA septic arthritis status post synovial aspirate WBC 30,000 RBC 66,000 Status post irrigation debridement of right knee joint and prepatellar bursa on December 04, 2020 Cultures positive for MSSA Sepsis from Gram-positive bacteremia. ImprovED Leukocytosis and bandemia. ImprovED Generalized weakness. Improving History of fall. Hypokalemia.Hyponatremia. Anemia History of atrial fibrillation. Hypertension. Coagulopathy GUERO urine eosinophil negative Pulmonary infiltrates and small pleural effusion appears multifactorial could be aspiration and or mild CHF Nausea and vomiting Plan: Plan of Care Continue daptomycin was on nafcillin Continue cefepime, renal dosing December 22, 2020 dc zyvox d/w DR Mari Maintain aspiration precautions Follow-up sputum for Gram stain and cultures, gram-negative alexis, gram-positive cocci Repeat blood cultures negative from December 05 Wound care as directed by orthopedics Monitor labs and cultures. Physical therapy and OT as directed by orthopedics Management of muscular strain by primary Continue supportive care. Discussed with nursing staff ELIZABETH BALLESTEROS MD Dec 25, 2020 09:33
--- NOTE | 2020-12-25 09:39 | PDOC ---
DATE OF SERVICE: DOS: DATE: 12/25/20 TIME: 09:37 SUBJECTIVE ROS Follow-up for GUERO on hemodialysis Patient denies any new complaints CVS: no Orthopnea, no CP RESP: no SOB, no [place] GI: no Nausea, no Vomiting : no Dysuria, no Urgency OBJECTIVE Vital Signs Vital Signs Date Time Temp Pulse Resp B/P (MAP) Pulse Ox O2 Delivery O2 Flow Rate FiO2 12/25/20 07:00 97.9 63 18 103/38 (59) 93 Nasal Cannula 5.0 97.9 I & 0 Intake and Output 12/25/20 07:00 Intake Total 60 ml Balance 60 ml Intake Oral 60 ml # Voids 3 PHYSICAL EXAM Physical Exam GEN: Awake, Oriented x 1-2 , In no distress, somewhat drowsy EYES: Sclerae anicteric, conjunctiva Normal EN: No EN Drainage, Mucous Membranes dryish this morning NECK: no JVD, + JVP, Supple, no palpable thyromegaly CVS: S1S2, soft murmur, No Gallop, No Rub,+ Edema RESP: no Rales, no Rhonchi,no Acc. Muscle Use GI: BS + ve, NO Bruit, Non Tender, Non Distended : no CVA tenderness, no Suprapubic Tenderness DIAGNOSIS/ASSESSMENT Assessment & Plan ARF: Current fluid and E-lyte status does not necessitate emergent need for dialysis. Will re-evaluate for dialysis in the am and continue on MWF schedule. ANEMIA; EPO as ordered, Transfuse with next HD as needed HTN: Current BP meds as reviewed. See orders for changes. Edema: Some of this may be postsurgical however will continue to ultrafiltrate as tolerated by hemodynamics to optimize fluid status BONE & MINERAL: Oral intake appears to be poor at this time. We will check phosphorus levels and add/alter binders if needed COMMENT/RELEVANT DATA Meds Current Medications Medications (Trade) Dose Ordered Sig/Gia Start Time Stop Time Status Last Admin Dose Admin Acetaminophen (Tylenol) 650 mg QHS 11/29/20 21:00 12/24/20 22:38 650 MG Acetaminophen/ Hydrocodone Bitart (Lortab 10/325) 1 tab PRN Q4HRS PRN 12/05/20 20:00 12/24/20 14:02 1 TAB Acetaminophen/ Hydrocodone Bitart (Lortab 5/325) 1 tab PRN Q4HRS PRN 11/28/20 22:45 12/05/20 19:50 DC 12/05/20 17:38 1 TAB Albumin Human 200 ml @ 200 mls/hr 1X PRN PRN 12/23/20 10:15 12/23/20 16:14 DC Aspirin (Aspirin Chewable) 81 mg DAILY 11/30/20 09:00 12/19/20 14:26 DC 12/19/20 12:40 81 MG Aspirin (Ecotrin) 81 mg DAILYWBKFT 12/23/20 13:00 12/24/20 08:40 81 MG Atorvastatin Calcium (Lipitor) 40 mg QHS 12/19/20 21:00 12/24/20 22:38 40 MG Azithromycin 250 ml @ 250 mls/hr DAILY ONCE 11/30/20 09:00 11/30/20 09:59 UNV Azithromycin 500 mg/Sodium Chloride 250 ml @ 250 mls/hr Q24H 11/29/20 15:00 11/29/20 13:50 DC Benzocaine (Hurricaine One) 1 spray STK-MED ONCE 12/05/20 10:06 12/05/20 10:07 DC Carvedilol (Coreg) 3.125 mg BIDWMEALS 12/01/20 12:00 12/05/20 20:11 DC 12/03/20 16:39 3.125 MG Cefazolin Sodium/ Dextrose 50 ml @ As Directed STK-MED ONCE 12/23/20 13:57 12/23/20 13:58 DC Cefepime HCl (Maxipime) 1 gm Q24H 12/22/20 11:00 12/24/20 12:16 1 GM Ceftriaxone Sodium (Rocephin) 2 gm Q24H 11/29/20 14:00 12/01/20 09:19 DC 11/30/20 13:21 2 GM Daptomycin 500 mg/ Sodium Chloride 50 ml @ 100 mls/hr Q48H 12/13/20 10:00 12/21/20 16:29 100 MLS/HR Daptomycin 580 mg/ Sodium Chloride 50 ml @ 100 mls/hr Q24H 12/01/20 07:30 12/01/20 09:19 DC 12/01/20 08:52 100 MLS/HR Dexamethasone Sodium Phosphate (Decadron) 4 mg STK-MED ONCE 12/04/20 11:26 12/04/20 11:26 DC Docusate Sodium (Colace) 100 mg PRN BID PRN 12/17/20 17:45 Epoetin Krishna-epbx (RETACRIT for ESRD PTS) 10,000 unit MoWeFr@2100 12/14/20 21:00 12/23/20 22:12 10,000 UNIT Fentanyl Citrate (Fentanyl 2ml Vial) 100 mcg 1X ONCE 12/23/20 14:00 12/23/20 14:06 DC 12/23/20 14:00 50 MCG Furosemide (Lasix) 40 mg 1X ONCE 12/22/20 11:15 12/22/20 11:16 DC 12/22/20 11:17 40 MG Hydromorphone HCl (Dilaudid) 0.5 mg PRN Q10MIN PRN 12/04/20 09:30 12/05/20 09:29 DC Influenza Virus Vaccine Quadrival (Flulaval Quad 7788-6089 Syringe) 0.5 ml ONCE ONCE 11/29/20 09:00 11/29/20 09:01 DC 11/29/20 10:06 0.5 ML Info (PHARMACY MONITORING -- do not chart) 1 each PRN DAILY PRN 12/23/20 10:15 Lactobacillus Rhamnosus (Culturelle) 1 cap BID 11/29/20 21:00 12/24/20 22:38 1 CAP Lidocaine HCl (Buffered Lidocaine 1%) 4 ml 1X ONCE 12/12/20 13:15 12/12/20 13:18 DC 12/12/20 13:11 4 ML Lidocaine HCl (Lidocaine 1% 20ml Vial) 10 ml 1X ONCE 12/01/20 16:00 12/01/20 16:01 DC Lidocaine HCl (Lidocaine Pf 2% Vial) 5 ml STK-MED ONCE 12/04/20 10:43 12/04/20 10:43 DC Lidocaine HCl (Viscous Lidocaine) 15 ml STK-MED ONCE 12/05/20 10:06 12/05/20 10:06 DC Lidocaine HCl (Xylocaine 2% Topical 30gm Tube) 30 hiro STK-MED ONCE 12/05/20 10:06 12/05/20 10:06 DC Lidocaine/ Epinephrine (LIDOCAINE 1%-EPI 1:100,000 Multi-Dose) 20 ml 1X ONCE 12/23/20 14:15 12/23/20 14:16 DC 12/23/20 14:15 8 ML Linezolid (Zyvox) 600 mg BID 12/24/20 11:00 12/24/20 22:38 600 MG Magnesium Sulfate 50 ml @ 25 mls/hr PRN DAILY PRN 12/25/20 09:15 Metoprolol Succinate (Toprol Xl) 25 mg DAILY 12/09/20 09:00 12/24/20 08:41 25 MG Midazolam HCl (Versed) 2 mg 1X ONCE 12/23/20 14:00 12/23/20 14:06 DC 12/23/20 14:00 1 MG Morphine Sulfate (Morphine Sulfate) 1 mg PRN Q10MIN PRN 12/04/20 09:30 12/05/20 09:29 DC Nafcillin Sodium 2 gm/Dextrose 100 ml @ 200 mls/hr Q4HRS 12/01/20 10:00 12/21/20 08:19 DC 12/21/20 04:11 200 MLS/HR Ondansetron HCl (Zofran) 4 mg STK-MED ONCE 12/04/20 11:26 12/04/20 11:26 DC Pantoprazole Sodium (Protonix) 40 mg DAILYAC 12/20/20 09:15 12/24/20 06:15 40 MG Phenylephrine HCl (PHENYLEPHRINE in 0.9% NACL PF) 1 mg STK-MED ONCE 12/04/20 10:43 12/04/20 10:43 DC Phytonadione (Vitamin K Ampule) 10 mg 1X ONCE 12/03/20 11:00 12/03/20 11:01 DC 12/03/20 11:17 10 MG Polyethylene Glycol (miraLAX PACKET) 17 gm PRN DAILY PRN 12/03/20 19:00 12/06/20 09:16 17 GM Potassium Chloride/Water 100 ml @ 50 mls/hr 1X ONCE 11/28/20 14:45 11/28/20 16:44 DC 11/28/20 16:20 50 MLS/HR Potassium Chloride (Klor-Con) 20 meq 1X ONCE 12/10/20 19:00 12/10/20 19:01 DC 12/10/20 18:52 20 MEQ Prochlorperazine Edisylate (Compazine) 5 mg PACU PRN PRN 12/04/20 09:30 12/05/20 09:29 DC Propofol (Diprivan) 200 mg STK-MED ONCE 12/05/20 09:29 12/05/20 09:30 DC Ringer's Solution 1,000 ml @ 30 mls/hr Q24H 12/04/20 09:30 12/04/20 21:29 DC Sevoflurane (Ultane) 60 ml STK-MED ONCE 12/04/20 11:14 12/04/20 11:14 DC Sodium Chloride 1,000 ml @ 400 mls/hr Q2H30M PRN 12/23/20 10:15 12/23/20 22:14 DC Sodium Chloride (Normal Saline Flush) 10 ml 1X PRN PRN 12/23/20 10:15 12/24/20 10:14 DC Sodium Chloride (Saline Mist Nasal) 1 hiro PRN Q1HR PRN 12/02/20 20:45 12/20/20 23:52 1 HIRO Warfarin Sodium (Coumadin) 3.75 mg DAILY 11/30/20 09:00 UNV Zolpidem Tartrate (Ambien) 5 mg PRN QHS PRN 12/05/20 20:00 12/23/20 22:11 5 MG Lab Laboratory Tests Test 12/24/20 12:30 12/25/20 05:55 White Blood Count 8.7 x10^3/uL (4.0-11.0) Red Blood Count 2.32 x10^6/uL (4.30-5.70) Hemoglobin 7.3 g/dL (13.0-17.5) Hematocrit 22.1 % (39.0-53.0) Mean Corpuscular Volume 95 fL (79-100) Mean Corpuscular Hemoglobin 31 pg (25-35) Mean Corpuscular Hemoglobin Concent 33 g/dL (31-37) Red Cell Distribution Width 20.1 % (11.5-14.5) Platelet Count 260 x10^3/uL (140-400) Neutrophils (%) (Auto) 75 % (31-73) Lymphocytes (%) (Auto) 14 % (24-48) Monocytes (%) (Auto) 9 % (0-9) Eosinophils (%) (Auto) 1 % (0-3) Basophils (%) (Auto) 1 % (0-3) Neutrophils # (Auto) 6.6 x10^3/uL (1.8-7.7) Lymphocytes # (Auto) 1.3 x10^3/uL (1.0-4.8) Monocytes # (Auto) 0.8 x10^3/uL (0.0-1.1) Eosinophils # (Auto) 0.1 x10^3/uL (0.0-0.7) Basophils # (Auto) 0.1 x10^3/uL (0.0-0.2) Sodium Level 132 mmol/L (136-145) Potassium Level 4.7 mmol/L (3.5-5.1) Chloride Level 96 mmol/L (98-107) Carbon Dioxide Level 25 mmol/L (21-32) Anion Gap 11 (6-14) Blood Urea Nitrogen 27 mg/dL (8-26) Creatinine 4.5 mg/dL (0.7-1.3) Estimated GFR (Cockcroft-Gault) 12.6 Glucose Level 84 mg/dL (70-99) Calcium Level 8.0 mg/dL (8.5-10.1) Results All relevant outside records, renal labs, imaging studies, telemetry/EKG's were reviewed. Justicifation of Admission Dx: Justifications for Admission: Justification of Admission Dx: N/A BC BALLESTEROS MD Dec 25, 2020 09:39
--- NOTE | 2020-12-25 10:30 | NUR ---
Patients morning medications held due to patients decreased LOC, Dr. Mari and Dr. Rashaad Martinez (ID) Aware. Head CT ordered by Dr Mari.
--- NOTE | 2020-12-25 10:44 | PDOC ---
Provider Note Date of Service: DATE: 12/25/20 TIME: 10:43 Provider Note no temp but bp low- labs same, will dc metoprolol for now , rest all same Justifications for Admission Other Justification BRADLEY ACEVES MD Dec 25, 2020 10:43
[2020-12-25 11:00] VITALS: BP_SYST 105; BP_SYST 115; BP_DIAS 46; BP_DIAS 52
[2020-12-25] MEDS: CEFEPIME HCL IV Push 1 GM VIAL. IVP SCH (12:32)
[2020-12-25 15:00] VITALS: BP 115/52
--- NOTE | 2020-12-25 15:08 | RAD ---
EXAM: CT HEAD WITHOUT CONTRAST. HISTORY: Altered mental status. TECHNIQUE: Computed tomography of the head was performed without intravenous contrast. One or more of the following individualized dose reduction techniques were utilized for this examination: 1. Automated exposure control. 2. Adjustment of the mA and/or kV according to patient size. 3. Use of iterative reconstruction technique. COMPARISON: None. FINDINGS: There is no intracranial hemorrhage. Hypoattenuation within the periventricular white matte r indicates mild chronic microangiopathic change. Prominence of the lateral ventricles and hemispheri c sulci indicates moderate atrophy. The visualized paranasal sinuses appear clear. The orbits are unremarkable. The temporal bones are un remarkable. The calvarium reveals no suspicious lesions. IMPRESSION: 1. No acute intracranial findings. 2. Moderate atrophy and mild chronic microangiopathic white matter change. Electronically signed by: Balbina Nguyễn MD (12/25/2020 3:06 PM) [facility]
--- NOTE | 2020-12-25 16:49 | PDOC ---
PROGRESS NOTES Date of Service DATE: 12/25/20 TIME: 16:46 Subjective Subjective Patient seen and examined Objective Objective Vital Signs Date Time Temp Pulse Resp B/P (MAP) Pulse Ox O2 Delivery O2 Flow Rate FiO2 12/25/20 15:00 95.6 68 20 115/52 (73) 95 Nasal Cannula 5.0 95.6 Intake and Output 12/25/20 07:00 Intake Total 60 ml Balance 60 ml Intake Oral 60 ml # Voids 3 Physical Exam Abdomen: Normal bowel sounds Heart: Regular rate General: mild distress Lungs: Other (Mildly decreased breath sounds) Assessment Assessment Problems Medical Problems: (1) Hypokalemia Status: Acute (2) Person under investigation for COVID-19 Status: Acute (3) Pneumonia Status: Acute (4) Sepsis Status: Acute Weakness, mechanical fall with right knee effusion: s/p I & D. Patient is feeling slightly better today. Sepsis, MSSA bacteremia: no intracardiac vegetation per SOO. Continuing antibiotics as per the ID service. SSS, s/p PPM. generator change ([facility]) 11/01/2020. normal function CAD: clinically stable. Continue present treatment. Permanent AFIB: rate controlled with intermittent v-pacing. Poor candidate for OAC. On low-dose aspirin and beta-blockers. Possible future referral for an LAAO. Coagulopathy due to warfarin; OAC held. s/p vit K. Morning hemoglobin he matocrit of 7.3 and 22.1. Transfusion as above. Chronic diastolic CHF; echo with normal EF and WM GUERO; HD initiated. Followed by renal. HTN: Blood pressure decreased. Beta-segun on hold. HLP: on statin Anemia; s/p transfusion. H&H as above. Comment Review of Relevant I have reviewed the following items mel (where applicable) has been applied. Labs Laboratory Tests Test 12/24/20 12:30 12/25/20 05:55 White Blood Count 8.7 x10^3/uL (4.0-11.0) Red Blood Count 2.32 x10^6/uL (4.30-5.70) Hemoglobin 7.3 g/dL (13.0-17.5) Hematocrit 22.1 % (39.0-53.0) Mean Corpuscular Volume 95 fL (79-100) Mean Corpuscular Hemoglobin 31 pg (25-35) Mean Corpuscular Hemoglobin Concent 33 g/dL (31-37) Red Cell Distribution Width 20.1 % (11.5-14.5) Platelet Count 260 x10^3/uL (140-400) Neutrophils (%) (Auto) 75 % (31-73) Lymphocytes (%) (Auto) 14 % (24-48) Monocytes (%) (Auto) 9 % (0-9) Eosinophils (%) (Auto) 1 % (0-3) Basophils (%) (Auto) 1 % (0-3) Neutrophils # (Auto) 6.6 x10^3/uL (1.8-7.7) Lymphocytes # (Auto) 1.3 x10^3/uL (1.0-4.8) Monocytes # (Auto) 0.8 x10^3/uL (0.0-1.1) Eosinophils # (Auto) 0.1 x10^3/uL (0.0-0.7) Basophils # (Auto) 0.1 x10^3/uL (0.0-0.2) Sodium Level 132 mmol/L (136-145) Potassium Level 4.7 mmol/L (3.5-5.1) Chloride Level 96 mmol/L (98-107) Carbon Dioxide Level 25 mmol/L (21-32) Anion Gap 11 (6-14) Blood Urea Nitrogen 27 mg/dL (8-26) Creatinine 4.5 mg/dL (0.7-1.3) Estimated GFR (Cockcroft-Gault) 12.6 Glucose Level 84 mg/dL (70-99) Calcium Level 8.0 mg/dL (8.5-10.1) Laboratory Tests Test 12/25/20 05:55 Sodium Level 132 mmol/L (136-145) Potassium Level 4.7 mmol/L (3.5-5.1) Chloride Level 96 mmol/L (98-107) Carbon Dioxide Level 25 mmol/L (21-32) Anion Gap 11 (6-14) Blood Urea Nitrogen 27 mg/dL (8-26) Creatinine 4.5 mg/dL (0.7-1.3) Estimated GFR (Cockcroft-Gault) 12.6 Glucose Level 84 mg/dL (70-99) Calcium Level 8.0 mg/dL (8.5-10.1) Microbiology 12/22/20 Gram Stain Evaluation - Final, Complete 12/22/20 Respiratory Culture - Final, Complete 12/07/20 Urine Culture - Final, Complete 12/05/20 Blood Culture - Final, Complete NO GROWTH AFTER 5 DAYS 12/04/20 Gram Stain - Final, Complete 12/04/20 Aerobic and Anaerobic Culture - Final, Complete Medications Current Medications Ceftriaxone Sodium (Rocephin) 1 gm 1X ONCE IVP Last administered on 11/28/20at 13:30; Start 11/28/20 at 13:30; Stop 11/28/20 at 13:31; Status DC Azithromycin 500 mg/Sodium Chloride 250 ml @ 250 mls/hr 1X ONCE IV ; Start 11/28/20 at 13:30; Stop 11/28/20 at 14:29; Status UNV Azithromycin 250 ml @ 250 mls/hr 1X ONCE IV Last administered on 11/28/20at 15:11; Start 11/28/20 at 13:30; Stop 11/28/20 at 14:29; Status DC Acetaminophen (Tylenol) 1,000 mg 1X ONCE PO Last administered on 11/28/20at 15:10; Start 11/28/20 at 14:45; Stop 11/28/20 at 14:46; Status DC Potassium Chloride/Water 100 ml @ 50 mls/hr 1X ONCE IV Last administered on 11/28/20at 16:20; Start 11/28/20 at 14:45; Stop 11/28/20 at 16:44; Status DC Potassium Chloride (Klor-Con) 40 meq 1X ONCE PO Last administered on 11/28/20at 16:21; Start 11/28/20 at 14:45; Stop 11/28/20 at 14:46; Status DC Sodium Chloride 1,000 ml @ 1,000 mls/hr 1X ONCE IV Last administered on 11/28/20at 17:41; Start 11/28/20 at 17:45; Stop 11/28/20 at 18:44; Status DC Acetaminophen (Tylenol) 650 mg PRN Q6HRS PRN PO MILD PAIN / TEMP > 100.3'F Last administered on 11/28/20at 20:36; Start 11/28/20 at 20:30 Influenza Virus Vaccine Quadrival (Flulaval Quad [id number] Syringe) 0.5 ml ONCE ONCE VAX IM Last administered on 11/29/20at 10:06; Start 11/29/20 at 09:00; Stop 11/29/20 at 09:01; Status DC Acetaminophen/ Hydrocodone Bitart (Lortab 5/325) 1 tab PRN Q4HRS PRN PO PAIN mod/severe Last administered on 12/05/20at 17:38; Start 11/28/20 at 22:45; Stop 12/05/20 at 19:50; Status DC Ceftriaxone Sodium (Rocephin) 1 gm Q24H IVP ; Start 11/29/20 at 13:00; Stop 11/29/20 at 13:11; Status DC Azithromycin 250 ml @ 250 mls/hr DAILY ONCE IV ; Start 11/30/20 at 09:00; Stop 11/30/20 at 09:59; Status UNV Azithromycin 500 mg/Sodium Chloride 250 ml @ 250 mls/hr Q24H IV ; Start 11/29/20 at 15:00; Stop 11/29/20 at 13:50; Status DC Acetaminophen (Tylenol) 650 mg QHS PO Last administered on 12/24/20at 22:38; Start 11/29/20 at 21:00 Aspirin (Aspirin Chewable) 81 mg DAILY PO Last administered on 12/19/20at 12:40; Start 11/30/20 at 09:00; Stop 12/19/20 at 14:26; Status DC Docusate Sodium (Colace) 100 mg PRN BID PRN PO HARD STOOLS Last administered on 12/01/20at 12:10; Start 11/29/20 at 09:45; Stop 12/17/20 at 17:41; Status DC Warfarin Sodium (Coumadin) 3.75 mg DAILY PO ; Start 11/30/20 at 09:00; Status UNV Atorvastatin Calcium (Lipitor) 20 mg QHS PO Last administered on 12/18/20at 20: 29; Start 11/29/20 at 21:00; Stop 12/19/20 at 14:26; Status DC Daptomycin 500 mg/ Sodium Chloride 50 ml @ 100 mls/hr Q24H IV Last administered on 11/30/20at 13:19; Start 11/29/20 at 13:00; Stop 12/01/20 at 07:32; Status DC Ceftriaxone Sodium (Rocephin) 2 gm Q24H IVP Last administered on 11/30/20at 13:21; Start 11/29/20 at 14:00; Stop 12/01/20 at 09:19; Status DC Lactobacillus Rhamnosus (Culturelle) 1 cap BID PO Last administered on 12/24/20at 22:38; Start 11/29/20 at 21:00 Daptomycin 580 mg/ Sodium Chloride 50 ml @ 100 mls/hr Q24H IV Last administered on 12/01/20at 08:52; Start 12/01/20 at 07:30; Stop 12/01/20 at 09:19; Status DC Nafcillin Sodium 2 gm/Dextrose 100 ml @ 200 mls/hr Q4HRS IV Last administered on 12/21/20at 04:11; Start 12/01/20 at 10:00; Stop 12/21/20 at 08:19; Status DC Carvedilol (Coreg) 6.25 mg DAILY PO ; Start 12/01/20 at 12:00; Stop 12/01/20 at 12:00; Status DC Furosemide (Lasix) 40 mg DAILY PO Last administered on 12/07/20at 08:28; Start 12/01/20 at 12:00; Stop 12/07/20 at 14:46; Status DC Potassium Chloride (Klor-Con) 20 meq DAILYWBKFT PO Last administered on 12/07/20at 08:28; Start 12/02/20 at 08:00; Stop 12/07/20 at 14:46; Status DC Potassium Chloride (Klor-Con) 20 meq 1X ONCE PO Last administered on 12/01/20at 12:12; Start 12/01/20 at 11:15; Stop 12/01/20 at 11:27; Status DC Carvedilol (Coreg) 3.125 mg BIDWMEALS PO Last administered on 12/03/20at 16:39; Start 12/01/20 at 12:00; Stop 12/05/20 at 20:11; Status DC Lidocaine HCl (Lidocaine 1% 20ml Vial) 10 ml 1X ONCE INJ ; Start 12/01/20 at 16:00; Stop 12/01/20 at 16:01; Status DC Ringer's Solution 1,000 ml @ 50 mls/hr Q20H IV Last administered on 12/05/20at 12:10; Start 12/05/20 at 07:00; Stop 12/05/20 at 18:59; Status DC Phytonadione (Vitamin K Ampule) 10 mg 1X ONCE SQ Last administered on 12/02/20at 11:09; Start 12/02/20 at 10:45; Stop 12/02/20 at 10:46; Status DC Sodium Chloride (Saline Mist Nasal) 1 hiro PRN Q1HR PRN NS NASAL CONGESTION Last administered on 12/20/20at 23:52; Start 12/02/20 at 20:45 Phytonadione (Vitamin K Ampule) 10 mg 1X ONCE SQ Last administered on 12/03/20at 11:17; Start 12/03/20 at 11:00; Stop 12/03/20 at 11:01; Status DC Docusate Sodium (Colace) 100 mg BID PO Last administered on 12/20/20at 08:52; Start 12/03/20 at 21:00; Stop 12/21/20 at 11:19; Status DC Polyethylene Glycol (miraLAX PACKET) 17 gm PRN DAILY PRN PO CONSTIPATION Last administered on 12/06/20at 09:16; Start 12/03/20 at 19:00 Fentanyl Citrate (Fentanyl 2ml Vial) 25 mcg PRN Q5MIN PRN IVP MILD PAIN 1-3; Start 12/04/20 at 09:30; Stop 12/05/20 at 09:29; Status DC Fentanyl Citrate (Fentanyl 2ml Vial) 50 mcg PRN Q5MIN PRN IVP MODERATE PAIN 4- 6; Start 12/04/20 at 09:30; Stop 12/05/20 at 09:29; Status DC Morphine Sulfate (Morphine Sulfate) 1 mg PRN Q10MIN PRN IVP SEVERE PAIN 7-10; Start 12/04/20 at 09:30; Stop 12/05/20 at 09:29; Status DC Ringer's Solution 1,000 ml @ 30 mls/hr Q24H IV ; Start 12/04/20 at 09:30; Stop 12/04/20 at 21:29; Status DC Hydromorphone HCl (Dilaudid) 0.5 mg PRN Q10MIN PRN IVP SEVERE PAIN 7-10, 2nd CHOICE; Start 12/04/20 at 09:30; Stop 12/05/20 at 09:29; Status DC Prochlorperazine Edisylate (Compazine) 5 mg PACU PRN PRN IVP NAUSEA, MRX1; Start 12/04/20 at 09:30; Stop 12/05/20 at 09:29; Status DC Propofol (Diprivan) 200 mg STK-MED ONCE IV ; Start 12/04/20 at 10:43; Stop 12/04/20 at 10:43; Status DC Lidocaine HCl (Lidocaine Pf 2% Vial) 5 ml STK-MED ONCE .ROUTE ; Start 12/04/20 at 10:43; Stop 12/04/20 at 10:43; Status DC Phenylephrine HCl (PHENYLEPHRINE in 0.9% NACL PF) 1 mg STK-MED ONCE IV ; Start 12/04/20 at 10:43; Stop 12/04/20 at 10:43; Status DC Sevoflurane (Ultane) 60 ml STK-MED ONCE IH ; Start 12/04/20 at 11:14; Stop 12/04/20 at 11:14; Status DC Dexamethasone Sodium Phosphate (Decadron) 4 mg STK-MED ONCE .ROUTE ; Start 12/04/20 at 11:26; Stop 12/04/20 at 11:26; Status DC Ondansetron HCl (Zofran) 4 mg STK-MED ONCE .ROUTE ; Start 12/04/20 at 11:26; Stop 12/04/20 at 11:26; Status DC Fentanyl Citrate (Fentanyl 2ml Vial) 100 mcg STK-MED ONCE .ROUTE ; Start 12/04/20 at 11:26; Stop 12/04/20 at 11:26; Status DC Daptomycin 500 mg/ Sodium Chloride 50 ml @ 100 mls/hr Q24H IV Last administered on 12/11/20at 10:46; Start 12/05/20 at 10:00; Stop 12/11/20 at 17:00; Status DC Propofol (Diprivan) 200 mg STK-MED ONCE IV ; Start 12/05/20 at 09:29; Stop 12/05/20 at 09:30; Status DC Lidocaine HCl (Viscous Lidocaine) 15 ml STK-MED ONCE .ROUTE ; Start 12/05/20 at 10:06; Stop 12/05/20 at 10:06; Status DC Lidocaine HCl (Xylocaine 2% Topical 30gm Tube) 30 hiro STK-MED ONCE TP ; Start 12/05/20 at 10:06; Stop 12/05/20 at 10:06; Status DC Benzocaine (Hurricaine One) 1 spray STK-MED ONCE .ROUTE ; Start 12/05/20 at 10:06; Stop 12/05/20 at 10:07; Status DC Acetaminophen/ Hydrocodone Bitart (Lortab 10) 1 tab PRN Q4HRS PRN PO MO DERATE TO SEVERE PAIN Last administered on 12/24/20at 14:02; Start 12/05/20 at 20:00 Zolpidem Tartrate (Ambien) 5 mg PRN QHS PRN PO INSOMNIA Last administered on 12/23/20at 22:11; Start 12/05/20 at 20:00 Sodium Chloride 1,000 ml @ 1,000 mls/hr 1X ONCE IV Last administered on 12/06/20at 09:32; Start 12/06/20 at 09:15; Stop 12/06/20 at 10:14; Status DC Sodium Chloride 1,000 ml @ 100 mls/hr 1X ONCE IV Last administered on 12/06/20at 15:30; Start 12/06/20 at 13:15; Stop 12/06/20 at 23:14; Status DC Sodium Chloride 1,000 ml @ 100 mls/hr 1X ONCE IV Last administered on 12/07/20at 13:24; Start 12/07/20 at 11:45; Stop 12/08/20 at 10:55; Status DC Metoprolol Succinate (Toprol Xl) 25 mg DAILY PO Last administered on 12/24/20at 08:41; Start 12/09/20 at 09:00; Stop 12/25/20 at 10:43; Status DC Potassium Chloride (Klor-Con) 20 meq 1X ONCE PO Last administered on 1at 18:52; Start 12/10/20 at 19:00; Stop 12/10/20 at 19:01; Status DC Daptomycin 500 mg/ Sodium Chloride 50 ml @ 100 mls/hr Q48H IV Last administered on 12/21/20at 16:29; Start 12/13/20 at 10:00 Lidocaine HCl (Buffered Lidocaine 1%) 3 ml STK-MED ONCE .ROUTE ; Start 12/12/20 at 10:27; Stop 12/12/20 at 10:27; Status DC Sodium Chloride 1,000 ml @ 1,000 mls/hr Q1H PRN IV hypotension; Start 12/12/20 at 12:00; Stop 12/12/20 at 17:59; Status DC Albumin Human 200 ml @ 200 mls/hr 1X PRN PRN IV Hypotension; Start 12/12/20 at 12:00; Stop 12/12/20 at 17:59; Status DC Sodium Chloride (Normal Saline Flush) 10 ml 1X PRN PRN IV AP catheter pack; Start 12/12/20 at 12:00; Stop 12/13/20 at 11:59; Status DC Sodium Chloride (Normal Saline Flush) 10 ml 1X PRN PRN IV [employer]ENTAL HE[employer] 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 catheter pack; Start 12/12/20 at 12:00; Stop 12/13/20 at 11:59; Status DC Info (PHARMACY MONITORING -- do not chart) 1 each PRN DAILY PRN MC SEE COMMENTS; Start 12/12/20 at 12:00; Status UNV Info (PHARMACY MONITORING -- do not chart) 1 each PRN DAILY PRN MC SEE COMMENTS; Start 12/12/20 at 12:00; Status Cancel Lidocaine HCl (Buffered Lidocaine 1%) 4 ml 1X ONCE INJ Last administered on 12/12/20at 13:11; Start 12/12/20 at 13:15; Stop 12/12/20 at 13:18; Status DC Sodium Chloride 1,000 ml @ 1,000 mls/hr Q1H PRN IV hypotension; Start 12/13/20 at 09:30; Stop 12/13/20 at 15:29; Status DC Sodium Chloride 1,000 ml @ 400 mls/hr Q2H30M PRN IV PATENCY; Start 12/13/20 at 09:30; Stop 12/13/20 at 21:29; Status DC Info (PHARMACY MONITORING -- do not chart) 1 each PRN DAILY PRN MC SEE COMMENTS; Start 12/13/20 at 09:30; Status UNV Info (PHARMACY MONITORING -- do not chart) 1 each PRN DAILY PRN MC SEE COMMENTS; Start 12/13/20 at 09:30; Status UNV Epoetin Krishna-epbx (RETACRIT for ESRD PTS) 10,000 unit MoWeFr@2100 SQ Last administered on 12/23/20at 22:12; Start 12/14/20 at 21:00 Sodium Chloride 1,000 ml @ 1,000 mls/hr Q1H PRN IV hypotension; Start 12/15/20 at 07:00; Stop 12/15/20 at 12:59; Status DC Sodium Chloride 1,000 ml @ 400 mls/hr Q2H30M PRN IV PATENCY; Start 12/15/20 at 07:00; Stop 12/15/20 at 18:59; Status DC Info (PHARMACY MONITORING -- do not chart) 1 each PRN DAILY PRN MC SEE COMMENTS; Start 12/15/20 at 07:00; Stop 12/15/20 at 07:00; Status DC Info (PHARMACY MONITORING -- do not chart) 1 each PRN DAILY PRN MC SEE COMMENTS; Start 12/15/20 at 07:00; Stop 12/15/20 at 07:00; Status DC Sodium Chloride 1,000 ml @ 1,000 mls/hr Q1H PRN IV hypotension; Start 12/17/20 at 10:30; Stop 12/17/20 at 16:29; Status DC Albumin Human 200 ml @ 200 mls/hr 1X PRN PRN IV Hypotension Last administered on 12/17/20at 11:15; Start 12/17/20 at 10:30; Stop 12/17/20 at 16:29; Status DC Sodium Chloride 1,000 ml @ 400 mls/hr Q2H30M PRN IV PATENCY; Start 12/17/20 at 10:30; Stop 12/17/20 at 22:29; Status DC Info (PHARMACY MONITORING -- do not chart) 1 each PRN DAILY PRN MC SEE COMMENTS; Start 12/17/20 at 11:15; Stop 12/19/20 at 13:24; Status DC Info (PHARMACY MONITORING -- do not chart) 1 each PRN DAILY PRN MC SEE COMMENTS; Start 12/17/20 at 11:15; Status UNV Docusate Sodium (Colace) 100 mg PRN BID PRN PO HARD STOOLS; Start 12/17/20 at 17:45 Sodium Chloride 1,000 ml @ 30 mls/hr Q24H IV Last administered on 12/21/20at 20:34; Start 12/18/20 at 18:45 Sodium Chloride 1,000 ml @ 1,000 mls/hr Q1H PRN IV hypotension; Start 12/19/20 at 08:30; Stop 12/19/20 at 14:29; Status DC Albumin Human 100 ml @ 100 mls/hr 1X PRN PRN IV Hypotension; Start 12/19/20 at 08:30; Stop 12/19/20 at 14:29; Status DC Sodium Chloride 1,000 ml @ 400 mls/hr Q2H30M PRN IV PATENCY; Start 12/19/20 at 08:30; Stop 12/19/20 at 20:29; Status DC Info (PHARMACY MONITORING -- do not chart) 1 each PRN DAILY PRN MC SEE COMMENTS; Start 12/19/20 at 08:30; Stop 12/19/20 at 13:24; Status DC Info (PHARMACY MONITORING -- do not chart) 1 each PRN DAILY PRN MC SEE COMMENTS; Start 12/19/20 at 08:30; Stop 12/21/20 at 07:55; Status DC Atorvastatin Calcium (Lipitor) 40 mg QHS PO Last administered on 12/24/20at 22:38; Start 12/19/20 at 21:00 Pantoprazole Sodium (Protonix) 40 mg DAILYAC PO Last administered on 12/24/20at 06:15; Start 12/20/20 at 09:15 Sodium Chloride 1,000 ml @ 1,000 mls/hr Q1H PRN IV hypotension; Start 12/21/20 at 08:00; Stop 12/21/20 at 13:59; Status DC Sodium Chloride 1,000 ml @ 400 mls/hr Q2H30M PRN IV PATENCY; Start 12/21/20 at 08:00; Stop 12/21/20 at 19:59; Status DC Info (PHARMACY MONITORING -- do not chart) 1 each PRN DAILY PRN MC SEE COMMENTS; Start 12/21/20 at 08:00; Stop 12/21/20 at 07:54; Status DC Info (PHARMACY MONITORING -- do not chart) 1 each PRN DAILY PRN MC SEE COMMENTS; Start 12/21/20 at 08:00; Status Cancel Cefepime HCl (Maxipime) 1 gm Q24H IVP Last administered on 12/25/20at 12:32; Start 12/22/20 at 11:00 Furosemide (Lasix) 40 mg 1X ONCE IVP Last administered on 12/22/20at 11:17; Start 12/22/20 at 11:15; Stop 12/22/20 at 11:16; Status DC Sodium Chloride 1,000 ml @ 1,000 mls/hr Q1H PRN IV hypotension; Start 12/23/20 at 10:15; Stop 12/23/20 at 16:14; Status DC Albumin Human 200 ml @ 200 mls/hr 1X PRN PRN IV Hypotension; Start 12/23/20 at 10:15; Stop 12/23/20 at 16:14; Status DC Sodium Chloride (Normal Saline Flush) 10 ml 1X PRN PRN IV AP catheter pack; Start 12/23/20 at 10:15; Stop 12/24/20 at 10:14; Status DC Sodium Chloride (Normal Saline Flush) 10 ml 1X PRN PRN IV MENTAL HE[employer] 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 catheter pack; Start 12/23/20 at 10:15; Stop 12/24/20 at 10:14; Status DC Sodium Chloride 1,000 ml @ 400 mls/hr Q2H30M PRN IV PATENCY; Start 12/23/20 at 10:15; Stop 12/23/20 at 22:14; Status DC Info (PHARMACY MONITORING -- do not chart) 1 each PRN DAILY PRN MC SEE COMMENTS; Start 12/23/20 at 10:15; Status UNV Info (PHARMACY MONITORING -- do not chart) 1 each PRN DAILY PRN MC SEE COMMENTS; Start 12/23/20 at 10:15 Aspirin (Ecotrin) 81 mg DAILYWBKFT PO Last administered on 12/24/20at 08:40; Start 12/23/20 at 13:00 Cefazolin Sodium/ Dextrose 50 ml @ 100 mls/hr 1X PREOP PRN IV PRIOR TO PROCEDURE Last administered on 12/23/20at 14:46; Start 12/23/20 at 14:00; Stop 12/24/20 at 13:59; Status DC Midazolam HCl (Versed) 2 mg 1X ONCE IV Last administered on 12/23/20at 14:00; Start 12/23/20 at 14:00; Stop 12/23/20 at 14:06; Status DC Fentanyl Citrate (Fentanyl 2ml Vial) 100 mcg 1X ONCE IV Last administered on 12/23/20at 14:00; Start 12/23/20 at 14:00; Stop 12/23/20 at 14:06; Status DC Cefazolin Sodium/ Dextrose 50 ml @ As Directed STK-MED ONCE IV ; Start 12/23/20 at 13:57; Stop 12/23/20 at 13:58; Status DC Lidocaine/ Epinephrine (LIDOCAINE 1%-EPI 1:100,000 Multi-Dose) 20 ml STK-MED ONCE .ROUTE ; Start 12/23/20 at 13:58; Stop 12/23/20 at 13:58; Status DC Lidocaine/ Epinephrine (LIDOCAINE 1%-EPI 1:100,000 Multi-Dose) 20 ml 1X ONCE INJ Last administered on 12/23/20at 14:15; Start 12/23/20 at 14:15; Stop 12/23/20 at 14:16; Status DC Linezolid (Zyvox) 600 mg BID PO Last administered on 12/24/20at 22:38; Start 12/24/20 at 11:00; Stop 12/25/20 at 10:48; Status DC Magnesium Sulfate 50 ml @ 25 mls/hr PRN DAILY PRN IV for Mag < 1.7 on am labs; Start 12/25/20 at 09:15 Active Scripts Active Nafcillin 2 Gm/ 100 Ml Inj (Nafcillin In Dextrose,Iso-Osm) 2 Gm/100 Ml Froz.piggy 2 Gm IV Q4HRS 30 Days Reported Acetaminophen 325 Mg Tablet 650 Mg PO QHS Aspirin 81 Mg Tab.chew 1 Tab PO DAILY Men's Multivitamin Tablet (Multivit-Min/Folic/Vit K/Lycop) 1 Each Tablet 1 Each PO DAILY Pravastatin Sodium 80 Mg Tablet 1 Tab PO DAILY Lasix (Furosemide) 40 Mg Tablet 1 Tab PO DAILY Colace (Docusate Sodium) 100 Mg Capsule 1 Cap PO PRN BID PRN Vitals/I & O Vital Sign - Last 24 Hours 12/24/20 12/24/20 12/24/20 12/25/20 19:49 20:00 23:55 03:22 Temp 97.7 97.6 97.7 97.6 Pulse 60 59 73 Resp 16 16 16 B/P (MAP) 95/45 (62) 76/33 (47) 91/47 (62) Pulse Ox 90 90 91 O2 Delivery Room Air Nasal Cannula Nasal Cannula O2 Flow Rate 5.0 5.0 12/25/20 12/25/20 12/25/20 12/25/20 07:00 08:10 11:00 15:00 Temp 97.9 97.6 95.6 97.9 97.6 95.6 Pulse 63 62 68 Resp 18 20 20 B/P (MAP) 103/38 (59) 105/46 (65) 115/52 (73) Pulse Ox 93 95 95 O2 Delivery Nasal Cannula Nasal Cannula Nasal Cannula Nasal Cannula O2 Flow Rate 5.0 5.0 5.0 5.0 l Intake and Output 12/24/20 12/24/20 12/25/20 15:00 23:00 07:00 Intake Total 60 ml Balance 60 ml Justifications for Admission Other Justification GREY VELOZ MD Dec 25, 2020 16:49
[2020-12-25] MEDS: DAPTOmycin (GENERIC) IVPB 500 MG in IV NORMAL SALINE 50ML 50 ML IV SCH (17:33)
[2020-12-25 19:00] VITALS: BP 104/47
[2020-12-25] MEDS ORDERED: DEXTROSE 50% 25 GM / 50ML DISP.SYRIN. IV ONE ×2 (22:23→22:30)
--- NOTE | 2020-12-25 22:45 | NUR ---
Patient's oxygen level is low at 50's, as he removed his 8L nasal cannula, is difficult to assess patient's LOC, as he looks at staff, closes his eyes, does open them on command, not verbalizing, replaces his oxygen, turning up to 10L, also places a non-rebreather on him at 15L, oxygen saturation level does slowly improve, did check his blood glucose- 58, 1/2 amp D50 administered, rechecked his level, 99, call placed to Dr Mari, he returns call, suggests that Dr Hinojosa be notified, this advertising copy writer was unaware that Dr Hinojosa was receiving calls, and that Dr Mari was rounding for the weekend, monitoring this patient
[2020-12-25] MEDS ORDERED: FUROSEMIDE 40 MG/4 ML VIAL. IVP ONE (23:00)
--- NOTE | 2020-12-25 23:10 | NUR ---
Dr Hinojosa notified of patient's decrease in mentation; his low oxygen, orders received.
--- NOTE | 2020-12-25 23:25 | NUR ---
Linda rt, showed this editorial writer the ABG results, on 10L,(without the non-rebreather for abgs) she reports his levels are not critical at this time, a few slight abnormals. To be noted that his 15L non-rebreather was replaced right after the ABG's were drawn. continuing to closely monitor throughout the night.
[2020-12-25 23:35] LABS: BASE EXCESS ABG -2 mmol/L (-3-3); HCO3 ABG 24 mmol/L (21-28); PCO2 ABG 46 mmHg (35-46); PO2 ABG 59 mmHg (65-108); SAT O2 ABG 89 % (92-99)
--- NOTE | 2020-12-25 23:43 | RAD ---
XR CHEST 1V 12/25/2020 11:04 PM INDICATION: Increased confusion, low oxygen COMPARISON: 12/22/2020 TECHNIQUE: Portable frontal view of the chest is provided. FINDINGS/ IMPRESSION: Limited IJ double-lumen dialysis catheter is identified in similar position. Left chest wall cardiac device is malpositioned. The cardiomediastinal silhouette is similar in appearance. There is worsening opacification of the mary ngs bilaterally with increased bilateral perihilar coarse interstitial and alveolar airspace disease. Small right pleural effusion. There may be a component of pulmonary vascular congestion. No pneumotho rax. Superior migration of the left humeral head may reflect sequela of chronic rotator cuff arthropathy. Electronically signed by: Narda Roberts MD (12/25/2020 11:41 PM) MYRA
[2020-12-25 23:50] VITALS: BP 115/49
[2020-12-26] VITALS (24 sets, daily range): BP systolic 73–143; BP diastolic 35–78
[2020-12-26 01:17] LABS: FIO2 ABG 10L highflow
--- NOTE | 2020-12-26 04:05 | NUR ---
Patient more vocal, confused, his voice can be heard in hallway, his N/C turned down to 8L N/C, to try and titrate his oxygen supplementation as able, as his saturation is 95% at this time.
[2020-12-26 07:09] LABS: ALBUMIN 1.3 g/dL (3.4-5.0); CALCIUM 7.5 mg/dL (8.5-10.1); CREATININE 5.4 mg/dL (0.7-1.3); GFR 10.2; PHOSPHORUS 6.6 mg/dL (2.6-4.7); POTASSIUM 4.9 mmol/L (3.5-5.1)
[2020-12-26] MEDS: PANTOPRAZOLE 40 MG TABLET.DR. PO SCH (07:30)
[2020-12-26] MEDS: ASPIRIN ENTERIC COATED 81 MG TABLET.DR. PO SCH (07:43)
--- NOTE | 2020-12-26 07:54 | PN ---
DATE: 12/26/2020 LOCATION: He is in room 512. SUBJECTIVE: This 85-year-old male remains hospitalized with MSSA sepsis from a right knee source. He has developed acute renal failure and is on ongoing dialysis. He has had worsening respiratory failure over the weekend as well as confusion. Chest x-ray seems to be most consistent with fluid overload and hopefully we are able to get rid of some fluid today in dialysis, although his blood pressures continue to run on the low side. He is currently satting good on 10 liters of facemask oxygen. Responds to voice but nonmeaningfully. OBJECTIVE: VITAL SIGNS: Stable. He is afebrile. Again, blood pressures are on the lower side. CHEST: Reveals bilateral crackles. HEART: Regular. ABDOMEN: Benign. EXTREMITIES: He has very small amount of edema. LABORATORY DATA: Hemoglobin this morning is stable at 7.4. I did check a blood gas during the night when he was worse with a pH of 7.34, O2 sat of 89%, pO2 of 59, and pCO2 of 46 with a normal bicarbonate on 10 liters high-flow oxygen. ASSESSMENT: 1. Methicillin-susceptible Staphylococcus aureus sepsis from right knee source. 2. Acute renal failure with ongoing dialysis. 3. Respiratory failure, likely related to fluid overload with no urine output overnight even after some IV Lasix. 4. Atrial fibrillation. PLAN: Dialysis today with hopefully removal of enough fluid to improve respiratory status. His son did call me last night wanting him possibly transferred to , which I explained that what they could do there that we were not doing her, but hopefully, we will see if some improvement in him today after dialysis. EDIS DR: Danielle TID: [id number]
[2020-12-26] MEDS ORDERED: ALBUMIN HUMAN 25% 200 ML IV ONE (08:45)
[2020-12-26] MEDS ORDERED: IV NORMAL SALINE 1000ML BAG 1,000 ML IV PRN ×2 (08:45)
[2020-12-26] MEDS ORDERED: DIALYSIS PATIENT. MC PRN (08:45)
[2020-12-26] MEDS: LACTOBACILLUS RHAMNOSUS GG 1 CAPSULE. PO SCH ×2 (09:00→21:00)
--- NOTE | 2020-12-26 09:22 | PDOC ---
Infectious Disease Note Subjective: Subjective Patient drowsy arousable, but does not answer any questions O2 needs have gone up to [address] head without any acute abnormality Chest x-ray reviewed, Creatinine 5.4 d/w RN ROS: ROS Unable to obtain Vital Signs: Vital Signs Vital Signs Date Time Temp Pulse Resp B/P (MAP) Pulse Ox O2 Delivery O2 Flow Rate FiO2 12/26/20 07:00 97.5 59 23 104/43 (63) 92 Nasal Cannula 10.0 97.5 Physical Exam: PHYSICAL EXAM GENERAL: comfortable lethargic Hard of hearing HEENT: Normocephalic, atraumatic. Anicteric. NECK: Supple, no JVD. Temporary HD catheter in place clean LUNGS: Clear except for decreased breath sounds at the bases. HEART: S1, S2, systolic murmur present. Pacemaker site looks okay. PPM incision site dry scab no redness no fluctuance ABDOMEN: Soft, nontender, nondistended. EXTREMITIES: Right knee prepatellar swelling, erythema and warmth are improving No cyanosis or clubbing DERMATOLOGIC: Warm, dry, no generalized rash. NEUROLOGIC: lethargic PSYCHIATRIC: Calm and cooperative. Spine no spine tenderness Paraspinal muscle strain Medications: Inpatient Meds: Medications reviewed. Labs: Lab Laboratory Tests Test 12/25/20 22:21 12/25/20 22:47 12/25/20 23:14 12/26/20 06:10 Glucose (Fingerstick) 58 mg/dL (70-99) 99 mg/dL (70-99) O2 Saturation 89 % (92-99) Arterial Blood pH 7.34 (7.35-7.45) Arterial Blood pCO2 at Patient Temp 46 mmHg (35-46) Arterial Blood pO2 at Patient Temp 59 mmHg (65-108) Arterial Blood HCO3 24 mmol/L (21-28) Arterial Blood Base Excess -2 mmol/L (-3-3) FiO2 10l highflow Hemoglobin 7.4 g/dL (13.0-17.5) Sodium Level 135 mmol/L (136-145) Potassium Level 4.9 mmol/L (3.5-5.1) Chloride Level 97 mmol/L (98-107) Carbon Dioxide Level 26 mmol/L (21-32) Anion Gap 12 (6-14) Blood Urea Nitrogen 35 mg/dL (8-26) Creatinine 5.4 mg/dL (0.7-1.3) Estimated GFR (Cockcroft-Gault) 10.2 Glucose Level 58 mg/dL (70-99) Calcium Level 7.5 mg/dL (8.5-10.1) Phosphorus Level 6.6 mg/dL (2.6-4.7) Magnesium Level 2.3 mg/dL (1.8-2.4) Albumin 1.3 g/dL (3.4-5.0) Micro Chest x-ray IMPRESSION: 1. Increase in diffuse mixed interstitial and alveolar infiltrate and small pleural effusions. 2. Stable cardiomegaly and cardiac pacemaker. 3. Right internal jugular catheter with the tip overlying expected position of the superior cavoatrial junction. Objective: Assessment: Persistent methicillin sensitive staph aureus bacteremia 4 of 4 bottles present on admission 11/28/2020, November 30 and December 02 History of PPM.H/O recent battery exchange. SOO negative for vegetation or thrombus Rt ewiiaapaayp joint MSSA septic arthritis status post synovial aspirate WBC 30,000 RBC 66,000 Status post irrigation debridement of right knee joint and prepatellar bursa on December 04, 2020 Cultures positive for MSSA Sepsis from Gram-positive bacteremia. ImprovED Leukocytosis and bandemia. ImprovED Generalized weakness. Improving History of fall. Hypokalemia.Hyponatremia. Anemia History of atrial fibrillation. Hypertension. Coagulopathy GUERO urine eosinophil negative Pulmonary infiltrates and small pleural effusion appears multifactorial CHF and or aspiration Nausea and vomiting improved Plan: Plan of Care DC daptomycin and cefepime. Sputum cultures mixed ronnell Start cefazolin renal dosing Maintain aspiration precautions Cardiology and renal team following. Awaiting hemodialysis today. Repeat blood cultures negative from December 05 Wound care as directed by orthopedics Monitor labs and cultures. Physical therapy and OT as directed by orthopedics Overall long-term prognosis poor Continue supportive care. Discussed with nursing staff ELIZABETH BALLESTEROS MD Dec 26, 2020 09:22
--- NOTE | 2020-12-26 10:16 | PDOC ---
Date of Service: DATE: 12/26/20 TIME: 10:08 Objective: Objective: D/w nurse - worsening resp and mental status. No GI concerns. Pulm and neurology now involved. Vital Signs: Vital Signs Date Time Temp Pulse Resp B/P (MAP) Pulse Ox O2 Delivery O2 Flow Rate FiO2 12/26/20 07:00 97.5 59 23 104/43 (63) 92 Nasal Cannula 10.0 97.5 Labs: Laboratory Tests Test 12/25/20 22:21 12/25/20 22:47 12/25/20 23:14 12/26/20 06:10 Glucose (Fingerstick) 58 mg/dL 99 mg/dL O2 Saturation 89 % Arterial Blood pH 7.34 Arterial Blood pCO2 at Patient Temp 46 mmHg Arterial Blood pO2 at Patient Temp 59 mmHg Arterial Blood HCO3 24 mmol/L Arterial Blood Base Excess -2 mmol/L FiO2 10l highflow Hemoglobin 7.4 g/dL Sodium Level 135 mmol/L Potassium Level 4.9 mmol/L Chloride Level 97 mmol/L Carbon Dioxide Level 26 mmol/L Anion Gap 12 Blood Urea Nitrogen 35 mg/dL Creatinine 5.4 mg/dL Estimated GFR (Cockcroft-Gault) 10.2 Glucose Level 58 mg/dL Calcium Level 7.5 mg/dL Phosphorus Level 6.6 mg/dL Magnesium Level 2.3 mg/dL Albumin 1.3 g/dL GRAM STAIN EVALUATION Final Final This specimen is of good quality and is acceptable for routine bacterial culture. Culture results to follow. GRAM NEGATIVE RODS:FEW GRAM POSITIVE RODS:MODERATE GRAM POSITIVE COCCI:FEW SQUAMOUS EPI CELL:FEW PMN (WBCs):MODERATE RESPIRATORY CULTURE Final Final MANY Mixed upper respiratory ronnell on 12/24/20 at 1014 MANY Mixed upper respiratory ronnell on 12/25/20 at 1003 Imaging: Head CT 12/25 IMPRESSION: 1. No acute intracranial findings. 2. Moderate atrophy and mild chronic microangiopathic white matter change. CXR 12/25 IMPRESSION: Limited IJ double-lumen dialysis catheter is identified in similar position. Left chest wall cardiac device is malpositioned. The cardiomediastinal silhouette is similar in appearance. There is worsening opacification of the lungs bilaterally with increased bilateral perihilar coarse interstitial and alveolar airspace disease. Small right pleural effusion. There may be a component of pulmonary vascular congestion. No pneumothorax. Superior migration of the left humeral head may reflect sequela of chronic rotator cuff arthropathy. PE: GEN: moaning LUNGS: breathing mask HEART: RRR ABD: soft, difficult to assess for tenderness w/ moaning NEURO/PSYCH: confused, has mittens A/P: Resp failure, AMS MSSA bacteremia/right knee septic arthritis s/p I&D GUERO on HD, A Fib, CHF Anemia - not iron or B12 deficient - Hgb stable in 7s, Coumadin (and now ASA) held Hypoalbuminemia -- Worsening resp and mental status. Change to IV PPI. Check ammonia for completeness, also interval LFTs. May need to consider PPN/TPN. Justicifation of Admission Dx: Justifications for Admission: Justification of Admission Dx: N/A PAMELA TREVIÑO Dec 26, 2020 10:16
--- NOTE | 2020-12-26 10:48 | PDOC2 ---
NEUROLOGY CONSULT Date of Service DOS: DATE: 12/26/20 TIME: 10:38 Reason for Consult Reason for Consult: Altered mental status Referring Physician Referring Physician: Dr. Hinojosa Source Source: Chart review History of Present Illness History of Present Illness DuringThe patient is an 85-year-old male admitted on 11/29 with generalized weakness, falls, chills, cough. He was found to have leukocytosis and pneumonia. He has had a prolonged hospital stay with sepsis, acute kidney injury requiring dialysis, continued leukocytosis, hypokalemia, hyponatremia, anemia, coagulopathy, nausea, vomiting. He has a history of atrial fibrillation. I saw him in the office in June of this year (06/29/2020) for an EMG which disclosed right carpal and cubital tunnel syndrome. Over the past couple days he developed increasing respiratory distress. He became less responsive last night. A rapid response was called. He did have a head CT, negative as reviewed below. He has perked up a little bit on a rebreather oxygen mask and he is also undergoing diuresis. There is no history of stroke, seizure, or head injury. Past Medical History Cardiovascular: AFIB, CAD, CHF, HTN, Other (Sick sinus syndrome) Past Surgical History Past Surgical History: Pacemaker, Total hip replacement Family History Family History: No pertinent hx Social History Social History , no alcohol or tobacco Current Medications Current Medications Current Medications Ceftriaxone Sodium (Rocephin) 1 gm 1X ONCE IVP Last administered on 11/28/20at 13:30; Start 11/28/20 at 13:30; Stop 11/28/20 at 13:31; Status DC Azithromycin 500 mg/Sodium Chloride 250 ml @ 250 mls/hr 1X ONCE IV ; Start 11/28/20 at 13:30; Stop 11/28/20 at 14:29; Status UNV Azithromycin 250 ml @ 250 mls/hr 1X ONCE IV Last administered on 11/28/20at 15:11; Start 11/28/20 at 13:30; Stop 11/28/20 at 14:29; Status DC Acetaminophen (Tylenol) 1,000 mg 1X ONCE PO Last administered on 11/28/20at 15:10; Start 11/28/20 at 14:45; Stop 11/28/20 at 14:46; Status DC Potassium Chloride/Water 100 ml @ 50 mls/hr 1X ONCE IV Last administered on 11/28/20at 16:20; Start 11/28/20 at 14:45; Stop 11/28/20 at 16:44; Status DC Potassium Chloride (Klor-Con) 40 meq 1X ONCE PO Last administered on 11/28/20at 16:21; Start 11/28/20 at 14:45; Stop 11/28/20 at 14:46; Status DC Sodium Chloride 1,000 ml @ 1,000 mls/hr 1X ONCE IV Last administered on 11/28/20at 17:41; Start 11/28/20 at 17:45; Stop 11/28/20 at 18:44; Status DC Acetaminophen (Tylenol) 650 mg PRN Q6HRS PRN PO MILD PAIN / TEMP > 100.3'F Last administered on 11/28/20at 20:36; Start 11/28/20 at 20:30 Influenza Virus Vaccine Quadrival (Flulaval Quad [id number] Syringe) 0.5 ml ONCE ONCE VAX IM Last administered on 11/29/20at 10:06; Start 11/29/20 at 09:00; Stop 11/29/20 at 09:01; Status DC Acetaminophen/ Hydrocodone Bitart (Lortab 5/325) 1 tab PRN Q4HRS PRN PO PAIN mod/severe Last administered on 12/05/20at 17:38; Start 11/28/20 at 22:45; Stop 12/05/20 at 19:50; Status DC Ceftriaxone Sodium (Rocephin) 1 gm Q24H IVP ; Start 11/29/20 at 13:00; Stop 11/29/20 at 13:11; Status DC Azithromycin 250 ml @ 250 mls/hr DAILY ONCE IV ; Start 11/30/20 at 09:00; Stop 11/30/20 at 09:59; Status UNV Azithromycin 500 mg/Sodium Chloride 250 ml @ 250 mls/hr Q24H IV ; Start 11/29/20 at 15:00; Stop 11/29/20 at 13:50; Status DC Acetaminophen (Tylenol) 650 mg QHS PO Last administered on 12/24/20at 22:38; Start 11/29/20 at 21:00 Aspirin (Aspirin Chewable) 81 mg DAILY PO Last administered on 12/19/20at 12:40; Start 11/30/20 at 09:00; Stop 12/19/20 at 14:26; Status DC Docusate Sodium (Colace) 100 mg PRN BID PRN PO HARD STOOLS Last administered on 12/01/20at 12:10; Start 11/29/20 at 09:45; Stop 12/17/20 at 17:41; Status DC Warfarin Sodium (Coumadin) 3.75 mg DAILY PO ; Start 11/30/20 at 09:00; Status UNV Atorvastatin Calcium (Lipitor) 20 mg QHS PO Last administered on 12/18/20at 20:29; Start 11/29/20 at 21:00; Stop 12/19/20 at 14:26; Status DC Daptomycin 500 mg/ Sodium Chloride 50 ml @ 100 mls/hr Q24H IV Last administered on 11/30/20at 13:19; Start 11/29/20 at 13:00; Stop 12/01/20 at 07:32 ; Status DC Ceftriaxone Sodium (Rocephin) 2 gm Q24H IVP Last administered on 11/30/20at 13:21; Start 11/29/20 at 14:00; Stop 12/01/20 at 09:19; Status DC Lactobacillus Rhamnosus (Culturelle) 1 cap BID PO Last administered on 12/24/20at 22:38; Start 11/29/20 at 21:00 Daptomycin 580 mg/ Sodium Chloride 50 ml @ 100 mls/hr Q24H IV Last administered on 12/01/20at 08:52; Start 12/01/20 at 07:30; Stop 12/01/20 at 09:19; Status DC Nafcillin Sodium 2 gm/Dextrose 100 ml @ 200 mls/hr Q4HRS IV Last administered on 12/21/20at 04:11; Start 12/01/20 at 10:00; Stop 12/21/20 at 08:19; Status DC Carvedilol (Coreg) 6.25 mg DAILY PO ; Start 12/01/20 at 12:00; Stop 12/01/20 at 12:00; Status DC Furosemide (Lasix) 40 mg DAILY PO Last administered on 12/07/20at 08:28; Start 12/01/20 at 12:00; Stop 12/07/20 at 14:46; Status DC Potassium Chloride (Klor-Con) 20 meq DAILYWBKFT PO Last administered on 12/07/20at 08:28; Start 12/02/20 at 08:00; Stop 12/07/20 at 14:46; Status DC Potassium Chloride (Klor-Con) 20 meq 1X ONCE PO Last administered on 12/01/20at 12:12; Start 12/01/20 at 11:15; Stop 12/01/20 at 11:27; Status DC Carvedilol (Coreg) 3.125 mg BIDWMEALS PO Last administered on 12/03/20at 16:39; Start 12/01/20 at 12:00; Stop 12/05/20 at 20:11; Status DC Lidocaine HCl (Lidocaine 1% 20ml Vial) 10 ml 1X ONCE INJ ; Start 12/01/20 at 16:00; Stop 12/01/20 at 16:01; Status DC Ringer's Solution 1,000 ml @ 50 mls/hr Q20H IV Last administered on 12/05/20at 12:10; Start 12/05/20 at 07:00; Stop 12/05/20 at 18:59; Status DC Phytonadione (Vitamin K Ampule) 10 mg 1X ONCE SQ Last administered on 12/02/20at 11:09; Start 12/02/20 at 10:45; Stop 12/02/20 at 10:46; Status DC Sodium Chloride (Saline Mist Nasal) 1 hiro PRN Q1HR PRN NS NASAL CONGESTION Last administered on 12/20/20at 23:52; Start 12/02/20 at 20:45 Phytonadione (Vitamin K Ampule) 10 mg 1X ONCE SQ Last administered on 12/03/20at 11:17; Start 12/03/20 at 11:00; Stop 12/03/20 at 11:01; Status DC Docusate Sodium (Colace) 100 mg BID PO Last administered on 12/20/20at 08:52; Start 12/03/20 at 21:00; Stop 12/21/20 at 11:19; Status DC Polyethylene Glycol (miraLAX PACKET) 17 gm PRN DAILY PRN PO CONSTIPATION Last administered on 12/06/20at 09:16; Start 12/03/20 at 19:00 Fentanyl Citrate (Fentanyl 2ml Vial) 25 mcg PRN Q5MIN PRN IVP MILD PAIN 1-3; Start 12/04/20 at 09:30; Stop 12/05/20 at 09:29; Status DC Fentanyl Citrate (Fentanyl 2ml Vial) 50 mcg PRN Q5MIN PRN IVP MODERATE PAIN 4- 6; Start 12/04/20 at 09:30; Stop 12/05/20 at 09:29; Status DC Morphine Sulfate (Morphine Sulfate) 1 mg PRN Q10MIN PRN IVP SEVERE PAIN 7-10; Start 12/04/20 at 09:30; Stop 12/05/20 at 09:29; Status DC Ringer's Solution 1,000 ml @ 30 mls/hr Q24H IV ; Start 12/04/20 at 09:30; Stop 12/04/20 at 21:29; Status DC Hydromorphone HCl (Dilaudid) 0.5 mg PRN Q10MIN PRN IVP SEVERE PAIN 7-10, 2nd CHOICE; Start 12/04/20 at 09:30; Stop 12/05/20 at 09:29; Status DC Prochlorperazine Edisylate (Compazine) 5 mg PACU PRN PRN IVP NAUSEA, MRX1; Start 12/04/20 at 09:30; Stop 12/05/20 at 09:29; Status DC Propofol (Diprivan) 200 mg STK-MED ONCE IV ; Start 12/04/20 at 10:43; Stop 12/04/20 at 10:43; Status DC Lidocaine HCl (Lidocaine Pf 2% Vial) 5 ml STK-MED ONCE .ROUTE ; Start 12/04/20 at 10:43; Stop 12/04/20 at 10:43; Status DC Phenylephrine HCl (PHENYLEPHRINE in 0.9% NACL PF) 1 mg STK-MED ONCE IV ; Start 12/04/20 at 10:43; Stop 12/04/20 at 10:43; Status DC Sevoflurane (Ultane) 60 ml STK-MED ONCE IH ; Start 12/04/20 at 11:14; Stop 12/04/20 at 11:14; Status DC Dexamethasone Sodium Phosphate (Decadron) 4 mg STK-MED ONCE .ROUTE ; Start 12/04/20 at 11:26; Stop 12/04/20 at 11:26; Status DC Ondansetron HCl (Zofran) 4 mg STK-MED ONCE .ROUTE ; Start 12/04/20 at 11:26; Stop 12/04/20 at 11:26; Status DC Fentanyl Citrate (Fentanyl 2ml Vial) 100 mcg STK-MED ONCE .ROUTE ; Start 12/04/20 at 11:26; Stop 12/04/20 at 11:26; Status DC Daptomycin 500 mg/ Sodium Chloride 50 ml @ 100 mls/hr Q24H IV Last administered on 12/11/20at 10:46; Start 12/05/20 at 10:00; Stop 12/11/20 at 17:00; Status DC Propofol (Diprivan) 200 mg STK-MED ONCE IV ; Start 12/05/20 at 09:29; Stop 12/05/20 at 09:30; Status DC Lidocaine HCl (Viscous Lidocaine) 15 ml STK-MED ONCE .ROUTE ; Start 12/05/20 at 10:06; Stop 12/05/20 at 10:06; Status DC Lidocaine HCl (Xylocaine 2% Topical 30gm Tube) 30 hiro STK-MED ONCE TP ; Start 12/05/20 at 10:06; Stop 12/05/20 at 10:06; Status DC Benzocaine (Hurricaine One) 1 spray STK-MED ONCE .ROUTE ; Start 12/05/20 at 10:06; Stop 12/05/20 at 10:07; Status DC Acetaminophen/ Hydrocodone Bitart (Lortab 10/325) 1 tab PRN Q4HRS PRN PO MODERATE TO SEVERE PAIN Last administered on 12/24/20at 14:02; Start 12/05/20 at 20:00 Zolpidem Tartrate (Ambien) 5 mg PRN QHS PRN PO INSOMNIA Last administered on 12/23/20at 22:11; Start 12/05/20 at 20:00 Sodium Chloride 1,000 ml @ 1,000 mls/hr 1X ONCE IV Last administered on 12/06/20at 09:32; Start 12/06/20 at 09:15; Stop 12/06/20 at 10:14; Status DC Sodium Chloride 1,000 ml @ 100 mls/hr 1X ONCE IV Last administered on 12/06/20at 15:30; Start 12/06/20 at 13:15; Stop 12/06/20 at 23:14; Status DC Sodium Chloride 1,000 ml @ 100 mls/hr 1X ONCE IV Last administered on 12/07/20at 13:24; Start 12/07/20 at 11:45; Stop 12/08/20 at 10:55; Status DC Metoprolol Succinate (Toprol Xl) 25 mg DAILY PO Last administered on 12/24/20at 08:41; Start 12/09/20 at 09:00; Stop 12/25/20 at 10:43; Status DC Potassium Chloride (Klor-Con) 20 meq 1X ONCE PO Last administered on 12/10/20at 18:52; Start 12/10/20 at 19:00; Stop 12/10/20 at 19:01; Status DC Daptomycin 500 mg/ Sodium Chloride 50 ml @ 100 mls/hr Q48H IV Last administered on 12/25/20at 17:33; Start 12/13/20 at 10:00 Lidocaine HCl (Buffered Lidocaine 1%) 3 ml STK-MED ONCE .ROUTE ; Start 12/12/20 at 10:27; Stop 12/12/20 at 10:27; Status DC Sodium Chloride 1,000 ml @ 1,000 mls/hr Q1H PRN IV hypotension; Start 12/12/20 at 12:00; Stop 12/12/20 at 17:59; Status DC Albumin Human 200 ml @ 200 mls/hr 1X PRN PRN IV Hypotension; Start 12/12/20 at 12:00; Stop 12/12/20 at 17:59; Status DC Sodium Chloride (Normal Saline Flush) 10 ml 1X PRN PRN IV AP catheter pack; Start 12/12/20 at 12:00; Stop 12/13/20 at 11:59; Status DC Sodium Chloride (Normal Saline Flush) 10 ml 1X PRN PRN IV [employer] catheter pack; Start 12/12/20 at 12:00; Stop 12/13/20 at 11:59; Status DC Info (PHARMACY MONITORING -- do not chart) 1 each PRN DAILY PRN MC SEE COMMENTS; Start 12/12/20 at 12:00; Status UNV Info (PHARMACY MONITORING -- do not chart) 1 each PRN DAILY PRN MC SEE COMMENTS; Start 12/12/20 at 12:00; Status Cancel Lidocaine HCl (Buffered Lidocaine 1%) 4 ml 1X ONCE INJ Last administered on 12/12/20at 13:11; Start 12/12/20 at 13:15; Stop 12/12/20 at 13:18; Status DC Sodium Chloride 1,000 ml @ 1,000 mls/hr Q1H PRN IV hypotension; Start 12/13/20 at 09:30; Stop 12/13/20 at 15:29; Status DC Sodium Chloride 1,000 ml @ 400 mls/hr Q2H30M PRN IV PATENCY; Start 12/13/20 at 09:30; Stop 12/13/20 at 21:29; Status DC Info (PHARMACY MONITORING -- do not chart) 1 each PRN DAILY PRN MC SEE COMMENTS; Start 12/13/20 at 09:30; Status UNV Info (PHARMACY MONITORING -- do not chart) 1 each PRN DAILY PRN MC SEE COMMENTS; Start 12/13/20 at 09:30; Status UNV Epoetin Krishna-epbx (RETACRIT for ESRD PTS) 10,000 unit MoWeFr@2100 SQ Last administered on 12/23/20at 22:12; Start 12/14/20 at 21:00 Sodium Chloride 1,000 ml @ 1,000 mls/hr Q1H PRN IV hypotension; Start 12/15/20 at 07:00; Stop 12/15/20 at 12:59; Status DC Sodium Chloride 1,000 ml @ 400 mls/hr Q2H30M PRN IV PATENCY; Start 12/15/20 at 07:00; Stop 12/15/20 at 18:59; Status DC Info (PHARMACY MONITORING -- do not chart) 1 each PRN DAILY PRN MC SEE COMMENTS; Start 12/15/20 at 07:00; Stop 12/15/20 at 07:00; Status DC Info (PHARMACY MONITORING -- do not chart) 1 each PRN DAILY PRN MC SEE COMMENTS; Start 12/15/20 at 07:00; Stop 12/15/20 at 07:00; Status DC Sodium Chloride 1,000 ml @ 1,000 mls/hr Q1H PRN IV hypotension; Start 12/17/20 at 10:30; Stop 12/17/20 at 16:29; Status DC Albumin Human 200 ml @ 200 mls/hr 1X PRN PRN IV Hypotension Last administered on 12/17/20at 11:15; Start 12/17/20 at 10:30; Stop 12/17/20 at 16:29; Status DC Sodium Chloride 1,000 ml @ 400 mls/hr Q2H30M PRN IV PATENCY; Start 12/17/20 at 10:30; Stop 12/17/20 at 22:29; Status DC Info (PHARMACY MONITORING -- do not chart) 1 each PRN DAILY PRN MC SEE COMMENTS; Start 12/17/20 at 11:15; Stop 12/19/20 at 13:24; Status DC Info (PHARMACY MONITORING -- do not chart) 1 each PRN DAILY PRN MC SEE COMMENTS; Start 12/17/20 at 11:15; Status UNV Docusate Sodium (Colace) 100 mg PRN BID PRN PO HARD STOOLS; Start 12/17/20 at 17:45 Sodium Chloride 1,000 ml @ 30 mls/hr Q24H IV Last administered on 12/21/20at 20:34; Start 12/18/20 at 18:45 Sodium Chloride 1,000 ml @ 1,000 mls/hr Q1H PRN IV hypotension; Start 12/19/20 at 08:30; Stop 12/19/20 at 14:29; Status DC Albumin Human 100 ml @ 100 mls/hr 1X PRN PRN IV Hypotension; Start 12/19/20 at 08:30; Stop 12/19/20 at 14:29; Status DC Sodium Chloride 1,000 ml @ 400 mls/hr Q2H30M PRN IV PATENCY; Start 12/19/20 at 08:30; Stop 12/19/20 at 20:29; Status DC Info (PHARMACY MONITORING -- do not chart) 1 each PRN DAILY PRN MC SEE COMMENTS; Start 12/19/20 at 08:30; Stop 12/19/20 at 13:24; Status DC Info (PHARMACY MONITORING -- do not chart) 1 each PRN DAILY PRN MC SEE COMMENTS; Start 12/19/20 at 08:30; Stop 12/21/20 at 07:55; Status DC Atorvastatin Calcium (Lipitor) 40 mg QHS PO Last administered on 12/24/20at 22:38; Start 12/19/20 at 21:00 Pantoprazole Sodium (Protonix) 40 mg DAILYAC PO Last administered on 12/24/20at 06:15; Start 12/20/20 at 09:15; Stop 12/26/20 at 10:17; Status DC Sodium Chloride 1,000 ml @ 1,000 mls/hr Q1H PRN IV hypotension; Start 12/21/20 at 08:00; Stop 12/21/20 at 13:59; Status DC Sodium Chloride 1,000 ml @ 400 mls/hr Q2H30M PRN IV PATENCY; Start 12/21/20 at 08:00; Stop 12/21/20 at 19:59; Status DC Info (PHARMACY MONITORING -- do not chart) 1 each PRN DAILY PRN MC SEE COMMENTS; Start 12/21/20 at 08:00; Stop 12/21/20 at 07:54; Status DC Info (PHARMACY MONITORING -- do not chart) 1 each PRN DAILY PRN MC SEE COMMENT S; Start 12/21/20 at 08:00; Status Cancel Cefepime HCl (Maxipime) 1 gm Q24H IVP Last administered on 12/25/20at 12:32; Start 12/22/20 at 11:00 Furosemide (Lasix) 40 mg 1X ONCE IVP Last administered on 12/22/20at 11:17; Start 12/22/20 at 11:15; Stop 12/22/20 at 11:16; Status DC Sodium Chloride 1,000 ml @ 1,000 mls/hr Q1H PRN IV hypotension; Start 12/23/20 at 10:15; Stop 12/23/20 at 16:14; Status DC Albumin Human 200 ml @ 200 mls/hr 1X PRN PRN IV Hypotension; Start 12/23/20 at 10:15; Stop 12/23/20 at 16:14; Status DC Sodium Chloride (Normal Saline Flush) 10 ml 1X PRN PRN IV AP catheter pack; Start 12/23/20 at 10:15; Stop 12/24/20 at 10:14; Status DC Sodium Chloride (Normal Saline Flush) 10 ml 1X PRN PRN IV [employer] catheter pack; Start 12/23/20 at 10:15; Stop 12/24/20 at 10:14; Status DC Sodium Chloride 1,000 ml @ 400 mls/hr Q2H30M PRN IV PATENCY; Start 12/23/20 at 10:15; Stop 12/23/20 at 22:14; Status DC Info (PHARMACY MONITORING -- do not chart) 1 each PRN DAILY PRN MC SEE COMMENTS; Start 12/23/20 at 10:15; Status UNV Info (PHARMACY MONITORING -- do not chart) 1 each PRN DAILY PRN MC SEE COMMENTS; Start 12/23/20 at 10:15 Aspirin (Ecotrin) 81 mg DAILYWBKFT PO Last administered on 12/24/20at 08:40; Start 12/23/20 at 13:00 Cefazolin Sodium/ Dextrose 50 ml @ 100 mls/hr 1X PREOP PRN IV PRIOR TO PROCEDURE Last administered on 12/23/20at 14:46; Start 12/23/20 at 14:00; Stop 12/24/20 at 13:59; Status DC Midazolam HCl (Versed) 2 mg 1X ONCE IV Last administered on 12/23/20at 14:00; Start 12/23/20 at 14:00; Stop 12/23/20 at 14:06; Status DC Fentanyl Citrate (Fentanyl 2ml Vial) 100 mcg 1X ONCE IV Last administered on 12/23/20at 14:00; Start 12/23/20 at 14:00; Stop 12/23/20 at 14:06; Status DC Cefazolin Sodium/ Dextrose 50 ml @ As Directed STK-MED ONCE IV ; Start 12/23/20 at 13:57; Stop 12/23/20 at 13:58; Status DC Lidocaine/ Epinephrine (LIDOCAINE 1%-EPI 1:100,000 Multi-Dose) 20 ml STK-MED ONCE .ROUTE ; Start 12/23/20 at 13:58; Stop 12/23/20 at 13:58; Status DC Lidocaine/ Epinephrine (LIDOCAINE 1%-EPI 1:100,000 Multi-Dose) 20 ml 1X ONCE INJ Last administered on 12/23/20at 14:15; Start 12/23/20 at 14:15; Stop 12/23/20 at 14:16; Status DC Linezolid (Zyvox) 600 mg BID PO Last administered on 12/24/20at 22:38; Start 12/24/20 at 11:00; Stop 12/25/20 at 10:48; Status DC Magnesium Sulfate 50 ml @ 25 mls/hr PRN DAILY PRN IV for Mag < 1.7 on am labs; Start 12/25/20 at 09:15 Dextrose (Dextrose 50%-Water Syringe) 25 gm STK-MED ONCE IV ; Start 12/25/20 at 22:23; Stop 12/25/20 at 22:23; Status DC Furosemide (Lasix) 40 mg 1X ONCE IVP Last administered on 12/25/20at 23:16; Start 12/25/20 at 23:00; Stop 12/25/20 at 23:05; Status DC Sodium Chloride 1,000 ml @ 1,000 mls/hr Q1H PRN IV hypotension; Start 12/26/20 at 08:45; Stop 12/26/20 at 14:44 Albumin Human 200 ml @ 200 mls/hr 1X ONCE IV ; Start 12/26/20 at 08:45; Stop 12/26/20 at 09:44; Status DC Sodium Chloride 1,000 ml @ 400 mls/hr Q2H30M PRN IV PATENCY; Start 12/26/20 at 08:45; Stop 12/26/20 at 20:44 Info (PHARMACY MONITORING -- do not chart) 1 each PRN DAILY PRN MC SEE COMMENTS; Start 12/26/20 at 08:45 Pantoprazole Sodium (PROTONIX VIAL for IV PUSH) 40 mg DAILYAC IVP ; Start 12/27/20 at 07:30 Active Scripts Active Nafcillin 2 Gm/ 100 Ml Inj (Nafcillin In Dextrose,Iso-Osm) 2 Gm/100 Ml Froz.piggy 2 Gm IV Q4HRS 30 Days Reported Acetaminophen 325 Mg Tablet 650 Mg PO QHS Aspirin 81 Mg Tab.chew 1 Tab PO DAILY Men's Multivitamin Tablet (Multivit-Min/Folic/Vit K/Lycop) 1 Each Tablet 1 Each PO DAILY Pravastatin Sodium 80 Mg Tablet 1 Tab PO DAILY Lasix (Furosemide) 40 Mg Tablet 1 Tab PO DAILY Colace (Docusate Sodium) 100 Mg Capsule 1 Cap PO PRN BID PRN Allergies Allergies: Coded Allergies: No Known Drug Allergies (Unverified , 07/22/20) ROS Review of System Unobtainable Physical Exam Physical Examination General: Well-developed, well-nourished, white male, in no acute distress HEENT: Normocephalic andatraumatic.Temporal arteriespulsatile and nontender. Neck: Supple without bruit, no meningismus Musculoskeletal: Stability:see neurologic. Gait exam:see neurologic. Tone:see neurologic.Strength:see neurologic. Neurological: Mental Status: orientation, memory, attention span/concentration, language, fund of knowledge: He is still on a nonrebreather mask, opens eyes to voice, does not follow commands or verbalize. Cranial Nerves:Pupils equal and reactive to light, extraocular movements areintact, visual hernández are full to confrontation. Facial sensation is normal. There is no facial asymmetry. Vestibulo-ocular reflex is intact. Palate elevates and tongue protrudes in midline. All other cranial related problems are negative except as mentioned before.Reflexes:1+ and symmetric with silent plantar responses. Motor:Moves all extremities to minimal stimulation. Coordination and gait:Not cooperative. Sensory:I get an impression of stocking loss as he responds to pinprick more proximally than distally in the legs Vitals VITALS Vital Signs Date Time Temp Pulse Resp B/P (MAP) Pulse Ox O2 Delivery O2 Flow Rate FiO2 12/26/20 07:00 97.5 59 23 104/43 (63) 92 Nasal Cannula 10.0 97.5 Labs Labs Laboratory Tests Test 12/24/20 12:30 12/25/20 05:55 12/25/20 22:21 12/25/20 22:47 White Blood Count 8.7 x10^3/uL (4.0-11.0) Red Blood Count 2.32 x10^6/uL (4.30-5.70) Hemoglobin 7.3 g/dL (13.0-17.5) Hematocrit 22.1 % (39.0-53.0) Mean Corpuscular Volume 95 fL (79-100) Mean Corpuscular Hemoglobin 31 pg (25-35) Mean Corpuscular Hemoglobin Concent 33 g/dL (31-37) Red Cell Distribution Width 20.1 % (11.5-14.5) Platelet Count 260 x10^3/uL (140-400) Neutrophils (%) (Auto) 75 % (31-73) Lymphocytes (%) (Auto) 14 % (24-48) Monocytes (%) (Auto) 9 % (0-9) Eosinophils (%) (Auto) 1 % (0-3) Basophils (%) (Auto) 1 % (0-3) Neutrophils # (Auto) 6.6 x10^3/uL (1.8-7.7) Lymphocytes # (Auto) 1.3 x10^3/uL (1.0-4.8) Monocytes # (Auto) 0.8 x10^3/uL (0.0-1.1) Eosinophils # (Auto) 0.1 x10^3/uL (0.0-0.7) Basophils # (Auto) 0.1 x10^3/uL (0.0-0.2) Sodium Level 132 mmol/L (136-145) Potassium Level 4.7 mmol/L (3.5-5.1) Chloride Level 96 mmol/L (98-107) Carbon Dioxide Level 25 mmol/L (21-32) Anion Gap 11 (6-14) Blood Urea Nitrogen 27 mg/dL (8-26) Creatinine 4.5 mg/dL (0.7-1.3) Estimated GFR (Cockcroft-Gault) 12.6 Glucose Level 84 mg/dL (70-99) Calcium Level 8.0 mg/dL (8.5-10.1) Glucose (Fingerstick) 58 mg/dL (70-99) 99 mg/dL (70-99) Test 12/25/20 23:14 12/26/20 06:10 O2 Saturation 89 % (92-99) Arterial Blood pH 7.34 (7.35-7.45) Arterial Blood pCO2 at Patient Temp 46 mmHg (35-46) Arterial Blood pO2 at Patient Temp 59 mmHg (65-108) Arterial Blood HCO3 24 mmol/L (21-28) Arterial Blood Base Excess -2 mmol/L (-3-3) FiO2 10l highflow Hemoglobin 7.4 g/dL (13.0-17.5) Sodium Level 135 mmol/L (136-145) Potassium Level 4.9 mmol/L (3.5-5.1) Chloride Level 97 mmol/L (98-107) Carbon Dioxide Level 26 mmol/L (21-32) Anion Gap 12 (6-14) Blood Urea Nitrogen 35 mg/dL (8-26) Creatinine 5.4 mg/dL (0.7-1.3) Estimated GFR (Cockcroft-Gault) 10.2 Glucose Level 58 mg/dL (70-99) Calcium Level 7.5 mg/dL (8.5-10.1) Phosphorus Level 6.6 mg/dL (2.6-4.7) Magnesium Level 2.3 mg/dL (1.8-2.4) Albumin 1.3 g/dL (3.4-5.0) Laboratory Tests Test 12/25/20 22:21 12/25/20 22:47 12/25/20 23:14 12/26/20 06:10 Glucose (Fingerstick) 58 mg/dL (70-99) 99 mg/dL (70-99) O2 Saturation 89 % (92-99) Arterial Blood pH 7.34 (7.35-7.45) Arterial Blood pCO2 at Patient Temp 46 mmHg (35-46) Arterial Blood pO2 at Patient Temp 59 mmHg (65-108) Arterial Blood HCO3 24 mmol/L (21-28) Arterial Blood Base Excess -2 mmol/L (-3-3) FiO2 10l highflow Hemoglobin 7.4 g/dL (13.0-17.5) Sodium Level 135 mmol/L (136-145) Potassium Level 4.9 mmol/L (3.5-5.1) Chloride Level 97 mmol/L (98-107) Carbon Dioxide Level 26 mmol/L (21-32) Anion Gap 12 (6-14) Blood Urea Nitrogen 35 mg/dL (8-26) Creatinine 5.4 mg/dL (0.7-1.3) Estimated GFR (Cockcroft-Gault) 10.2 Glucose Level 58 mg/dL (70-99) Calcium Level 7.5 mg/dL (8.5-10.1) Phosphorus Level 6.6 mg/dL (2.6-4.7) Magnesium Level 2.3 mg/dL (1.8-2.4) Albumin 1.3 g/dL (3.4-5.0) Images Images CT HEAD WITHOUT CONTRAST, 12/25/2020 3:06 PM. There is no intracranial hemorrhage. Hypoattenuation within the periventricular white matter indicates mild chronic microangiopathic change. Prominence of the lateral ventricles and hemispheric sulci indicates moderate atrophy. The visualized paranasal sinuses appear clear. The orbits are unremarkable. The temporal bones are unremarkable. The calvarium reveals no suspicious lesions. IMPRESSION: 1. No acute intracranial findings. 2. Moderate atrophy and mild chronic microangiopathic white matter change. Assessment/Plan Assessment/Plan Impression: Metabolic encephalopathy Respiratory failure, possible fluid overload, renal failure, sepsis Recommendations: Treat medical issues Holding off on additional neurological studies JUDI CORNEJO MD Dec 26, 2020 10:48
[2020-12-26] MEDS ORDERED: DEXTROSE 50% 25 GM / 50ML DISP.SYRIN. IV ONE ×2 (10:54→11:00)
--- NOTE | 2020-12-26 11:18 | NUR ---
Blood glucose from lab draw noted to be 58. [facility]SB[facility] check noted to be 62. 1 amp of dextrose given in dialysis per NAEEM Lawson. [facility]SB[facility] recheck- 127. Will continue to monitor.
[2020-12-26 11:42] LABS: ALBUMIN 1.3 g/dL (3.4-5.0); TOTAL BILIRUBIN 2.4 mg/dL (0.2-1.0); TOTAL PROTEIN 6.8 g/dL (6.4-8.2)
--- NOTE | 2020-12-26 13:23 | PDOC ---
Renal-Progress Notes Subjective Notes Notes CONFUSED History of Present Illness Hx of present illness NOT GETTING ANY BETTER Vitals Vitals Vital Signs Date Time Temp Pulse Resp B/P (MAP) Pulse Ox O2 Delivery O2 Flow Rate FiO2 12/26/20 08:00 Nasal Cannula 15.0 12/26/20 07:00 97.5 59 23 104/43 (63) 92 97.5 Weight Weight [ ] Labs Labs Laboratory Tests Test 12/25/20 22:21 12/25/20 22:47 12/25/20 23:14 12/26/20 06:10 Glucose (Fingerstick) 58 mg/dL (70-99) 99 mg/dL (70-99) O2 Saturation 89 % (92-99) Arterial Blood pH 7.34 (7.35-7.45) Arterial Blood pCO2 at Patient Temp 46 mmHg (35-46) Arterial Blood pO2 at Patient Temp 59 mmHg (65-108) Arterial Blood HCO3 24 mmol/L (21-28) Arterial Blood Base Excess -2 mmol/L (-3-3) FiO2 10l highflow Hemoglobin 7.4 g/dL (13.0-17.5) Sodium Level 135 mmol/L (136-145) Potassium Level 4.9 mmol/L (3.5-5.1) Chloride Level 97 mmol/L (98-107) Carbon Dioxide Level 26 mmol/L (21-32) Anion Gap 12 (6-14) Blood Urea Nitrogen 35 mg/dL (8-26) Creatinine 5.4 mg/dL (0.7-1.3) Estimated GFR (Cockcroft-Gault) 10.2 Glucose Level 58 mg/dL (70-99) Calcium Level 7.5 mg/dL (8.5-10.1) Phosphorus Level 6.6 mg/dL (2.6-4.7) Magnesium Level 2.3 mg/dL (1.8-2.4) Total Bilirubin 2.4 mg/dL (0.2-1.0) Direct Bilirubin 1.0 mg/dL (0.0-0.2) Aspartate Amino Transf (AST/SGOT) 1422 U/L (15-37) Alanine Aminotransferase (ALT/SGPT) 204 U/L (16-63) Alkaline Phosphatase 141 U/L (46-116) IW-Pum-Y-Type Natriuretic Peptide > 46789 pg/mL (0-449) Total Protein 6.8 g/dL (6.4-8.2) Albumin 1.3 g/dL (3.4-5.0) Test 12/26/20 10:47 12/26/20 11:09 Glucose (Fingerstick) 62 mg/dL (70-99) 127 mg/dL (70-99) Micro Micro Microbiology 12/22/20 Gram Stain Evaluation - Final, Complete 12/22/20 Respiratory Culture - Final, Complete 12/07/20 Urine Culture - Final, Complete 12/05/20 Blood Culture - Final, Complete NO GROWTH AFTER 5 DAYS 12/04/20 Gram Stain - Final, Complete 12/04/20 Aerobic and Anaerobic Culture - Final, Complete Review of Systems Constitutional: yes: unresponsive Ears/Nose/Throat: Yes: no symptom reported Eyes: Yes: no symptom reported Pulmonary: Yes no symptom reported Gastrointestional: Yes: no symptom reported Genitourinary: Yes: no symptom reported Musculoskeletal: Yes: no symptom reported Skin: Yes no symptom reported Psychiatric/Neurological: Yes: no symptom reported Endocrine: Yes: no symptom reported Physical Exam General Appearance: mild distress Skin: warm Respiratory: decreased breath sounds Heart: S1S2 Abdomen: soft, bowel sounds present Genitourinary: bladder flat Extremities: no edema, edema Neurology: confused Assessment Assessment IMP HYPOTENSION GUEOR DUE TO ABOVE-ATN SEPSIS RIGHT KNEE EFFUSION SSS WITH PPM-RECENT BATTERY EXCHANGE CHRONIC AFIB ANTICOAGULATION ANEMIA ACUTE RESP FAILURE HYPOXIA ?ARDS PLAN NO SIGNS OF RENAL IMPROVEMENT HD TODAY UF 4.0 TOLERATED CONT EPOGEN PULM EVALUATION ANTIBIOTICS D/W PULM MAY NEED ICU IF NOT BETTER WILL FOLLOW ALFREDO EASTON MD Dec 26, 2020 13:23
--- NOTE | 2020-12-26 14:25 | NUR ---
Per Renny, banquet kitchen supervisor, pt received 50 gm of albumin during treatment. Medication still active on eMar.
--- NOTE | 2020-12-26 14:46 | PDOC ---
PULMONARY PROGRESS NOTES DATE: 12/26/20 TIME: 14:46 Vitals Vital Signs Date Time Temp Pulse Resp B/P (MAP) Pulse Ox O2 Delivery O2 Flow Rate FiO2 12/26/20 08:00 Nasal Cannula 15.0 12/26/20 07:00 97.5 59 23 104/43 (63) 92 97.5 Labs Laboratory Tests Test 12/25/20 05:55 12/25/20 22:21 12/25/20 22:47 12/25/20 23:14 Sodium Level 132 mmol/L (136-145) Potassium Level 4.7 mmol/L (3.5-5.1) Chloride Level 96 mmol/L (98-107) Carbon Dioxide Level 25 mmol/L (21-32) Anion Gap 11 (6-14) Blood Urea Nitrogen 27 mg/dL (8-26) Creatinine 4.5 mg/dL (0.7-1.3) Estimated GFR (Cockcroft-Gault) 12.6 Glucose Level 84 mg/dL (70-99) Calcium Level 8.0 mg/dL (8.5-10.1) Glucose (Fingerstick) 58 mg/dL (70-99) 99 mg/dL (70-99) O2 Saturation 89 % (92-99) Arterial Blood pH 7.34 (7.35-7.45) Arterial Blood pCO2 at Patient Temp 46 mmHg (35-46) Arterial Blood pO2 at Patient Temp 59 mmHg (65-108) Arterial Blood HCO3 24 mmol/L (21-28) Arterial Blood Base Excess -2 mmol/L (-3-3) FiO2 10l highflow Test 12/26/20 06:10 12/26/20 10:47 12/26/20 11:09 12/26/20 13:00 Hemoglobin 7.4 g/dL (13.0-17.5) Sodium Level 135 mmol/L (136-145) Potassium Level 4.9 mmol/L (3.5-5.1) Chloride Level 97 mmol/L (98-107) Carbon Dioxide Level 26 mmol/L (21-32) Anion Gap 12 (6-14) Blood Urea Nitrogen 35 mg/dL (8-26) Creatinine 5.4 mg/dL (0.7-1.3) Estimated GFR (Cockcroft-Gault) 10.2 Glucose Level 58 mg/dL (70-99) Calcium Level 7.5 mg/dL (8.5-10.1) Phosphorus Level 6.6 mg/dL (2.6-4.7) Magnesium Level 2.3 mg/dL (1.8-2.4) Total Bilirubin 2.4 mg/dL (0.2-1.0) Direct Bilirubin 1.0 mg/dL (0.0-0.2) Aspartate Amino Transf (AST/SGOT) 1422 U/L (15-37) Alanine Aminotransferase (ALT/SGPT) 204 U/L (16-63) Alkaline Phosphatase 141 U/L (46-116) AN-Btx-A-Type Natriuretic Peptide > 16133 pg/mL (0-449) Total Protein 6.8 g/dL (6.4-8.2) Albumin 1.3 g/dL (3.4-5.0) Glucose (Fingerstick) 62 mg/dL (70-99) 127 mg/dL (70-99) Ammonia 17 mcmol/L (11-34) Laboratory Tests Test 12/25/20 22:21 12/25/20 22:47 12/25/20 23:14 12/26/20 06:10 Glucose (Fingerstick) 58 mg/dL (70-99) 99 mg/dL (70-99) O2 Saturation 89 % (92-99) Arterial Blood pH 7.34 (7.35-7.45) Arterial Blood pCO2 at Patient Temp 46 mmHg (35-46) Arterial Blood pO2 at Patient Temp 59 mmHg (65-108) Arterial Blood HCO3 24 mmol/L (21-28) Arterial Blood Base Excess -2 mmol/L (-3-3) FiO2 10l highflow Hemoglobin 7.4 g/dL (13.0-17.5) Sodium Level 135 mmol/L (136-145) Potassium Level 4.9 mmol/L (3.5-5.1) Chloride Level 97 mmol/L (98-107) Carbon Dioxide Level 26 mmol/L (21-32) Anion Gap 12 (6-14) Blood Urea Nitrogen 35 mg/dL (8-26) Creatinine 5.4 mg/dL (0.7-1.3) Estimated GFR (Cockcroft-Gault) 10.2 Glucose Level 58 mg/dL (70-99) Calcium Level 7.5 mg/dL (8.5-10.1) Phosphorus Level 6.6 mg/dL (2.6-4.7) Magnesium Level 2.3 mg/dL (1.8-2.4) Total Bilirubin 2.4 mg/dL (0.2-1.0) Direct Bilirubin 1.0 mg/dL (0.0-0.2) Aspartate Amino Transf (AST/SGOT) 1422 U/L (15-37) Alanine Aminotransferase (ALT/SGPT) 204 U/L (16-63) Alkaline Phosphatase 141 U/L (46-116) UB-Mvx-I-Type Natriuretic Peptide > 56130 pg/mL (0-449) Total Protein 6.8 g/dL (6.4-8.2) Albumin 1.3 g/dL (3.4-5.0) Test 12/26/20 10:47 12/26/20 11:09 12/26/20 13:00 Glucose (Fingerstick) 62 mg/dL (70-99) 127 mg/dL (70-99) Ammonia 17 mcmol/L (11-34) Medications Active Scripts Medications Dose Route/Sig Max Daily Dose Days Date Category Nafcillin 2 Gm/ 100 Ml Inj (Nafcillin In Dextrose,Iso-Osm) 2 Gm/100 Ml Froz.piggy 2 Gm IV Q4HRS 30 12/16/20 Rx Acetaminophen 325 Mg Tablet 650 Mg PO QHS 11/28/20 Reported Aspirin 81 Mg Tab.chew 1 Tab PO DAILY 11/01/20 Reported Men's Multivitamin Tablet (Multivit-Min/Folic/Vit K/Lycop) 1 Each Tablet 1 Each PO DAILY 07/19/20 Reported Pravastatin Sodium 80 Mg Tablet 1 Tab PO DAILY 03/02/19 Reported Lasix (Furosemide) 40 Mg Tablet 1 Tab PO DAILY 01/11/14 Reported Colace (Docusate Sodium) 100 Mg Capsule 1 Cap PO PRN BID PRN 01/11/14 Reported Impression . FULL CONSULT DICTATED D/W ANGELITO SMITH MD Dec 26, 2020 14:46
--- NOTE | 2020-12-26 15:47 | NUR ---
Dr Hinojosa notified this poem writer that he spoke to patient son, and son requesting transfer to [facility]. Dr. Hinojosa explained that is not an option at this time. Per Dr. Hinojosa, son is requesting all measures done, including intubation if necessary. Dr. Hinojosa requesting transfer to ICU. Nursing [employer] notified. Will continue to monitor.
[2020-12-26] MEDS ORDERED: ceFAZolin SODIUM IV Push 1 GM VIAL. IVP SCH (16:00)
--- NOTE | 2020-12-26 16:03 | NUR ---
Wound/Ostomy Care Wound Type/Assessment: Wound care consult for buttock wound. Cleansed, measured and assessed wound. Bilaterla buttocks are macerated and peeling with multiple small open areas. Treatment Recommendations/Plan: Applied calazime cream and turned to right side, heels floated on pillows. Education provided: PU prevention, pt will need reinforcement of teaching d/t mental status Offloading surface/device: TQ2H, float heels Recommended Referrals/Tests: none Discharge Recommendations for dressings: see above
--- NOTE | 2020-12-26 16:48 | PDOC ---
PROGRESS NOTES Date of Service: DATE: 12/26/20 TIME: 16:46 Subjective Subjective Patient seen in hemodialysis unit. More confused with worsening dyspnea. Objective Objective Vital Signs Date Time Temp Pulse Resp B/P (MAP) Pulse Ox O2 Delivery O2 Flow Rate FiO2 12/26/20 15:00 97.4 60 23 96/51 (66) 90 Nasal Cannula 10.0 97.4 Physical Exam Abdomen: Normal bowel sounds Heart: Regular rate Extremities: No clubbing, Other (1-2+ pitting edema) General: mild distress HEENT: Atraumatic Lungs: Other (Mildly decreased breath sounds) MUSCULOSKELETAL: No joint tenderness, No deformity, No swelling Assessment Assessment 1. Weakness, mechanical fall with right knee effusion: s/p I & D 2. Sepsis, MSSA bacteremia: no intracardiac vegetation per SOO. 3. SSS, s/p PPM. generator change ([place]) 11/01/2020. normal function 4. CAD: clinically stable 5. Permanent AFIB: rate controlled with intermittent v-pacing. 6. Coagulopathy due to warfarin; OAC held. 7. Chronic diastolic CHF; echo with normal EF and WM. He is decompensated clinically. He is scheduled for removal of approximately 4 L with hemodialysis today. 8. GUERO; HD initiated 9. HTN: controlled 10. HLP: on statin 11. Anemia; s/p transfusion. Mild hemoptysis persists Recommendations Poor candidate for OAC given anemia, fall risk Metoprolol for rate control Fluid offloading via HD Ongoing treatment of sepsis/bacteremia per ID team Pulmonary team following. Consider outpatient referral of [facility] Plan Plan of Care Problems Medical Problems: (1) Hypokalemia Status: Acute (2) Person under investigation for COVID-19 Status: Acute (3) Pneumonia Status: Acute (4) Sepsis Status: Acute Comment Review of Relevant I have reviewed the following items mel (where applicable) has been applied. Labs Laboratory Tests Test 12/25/20 22:21 12/25/20 22:47 12/25/20 23:14 12/26/20 06:10 Glucose (Fingerstick) 58 mg/dL (70-99) 99 mg/dL (70-99) O2 Saturation 89 % (92-99) Arterial Blood pH 7.34 (7.35-7.45) Arterial Blood pCO2 at Patient Temp 46 mmHg (35-46) Arterial Blood pO2 at Patient Temp 59 mmHg (65-108) Arterial Blood HCO3 24 mmol/L (21-28) Arterial Blood Base Excess -2 mmol/L (-3-3) FiO2 10l highflow Hemoglobin 7.4 g/dL (13.0-17.5) Sodium Level 135 mmol/L (136-145) Potassium Level 4.9 mmol/L (3.5-5.1) Chloride Level 97 mmol/L (98-107) Carbon Dioxide Level 26 mmol/L (21-32) Anion Gap 12 (6-14) Blood Urea Nitrogen 35 mg/dL (8-26) Creatinine 5.4 mg/dL (0.7-1.3) Estimated GFR (Cockcroft-Gault) 10.2 Glucose Level 58 mg/dL (70-99) Calcium Level 7.5 mg/dL (8.5-10.1) Phosphorus Level 6.6 mg/dL (2.6-4.7) Magnesium Level 2.3 mg/dL (1.8-2.4) Total Bilirubin 2.4 mg/dL (0.2-1.0) Direct Bilirubin 1.0 mg/dL (0.0-0.2) Aspartate Amino Transf (AST/SGOT) 1422 U/L (15-37) Alanine Aminotransferase (ALT/SGPT) 204 U/L (16-63) Alkaline Phosphatase 141 U/L (46-116) WJ-Coq-Q-Type Natriuretic Peptide > 39429 pg/mL (0-449) Total Protein 6.8 g/dL (6.4-8.2) Albumin 1.3 g/dL (3.4-5.0) Test 12/26/20 10:47 12/26/20 11:09 12/26/20 13:00 Glucose (Fingerstick) 62 mg/dL (70-99) 127 mg/dL (70-99) Ammonia 17 mcmol/L (11-34) Microbiology 12/22/20 Gram Stain Evaluation - Final, Complete 12/22/20 Respiratory Culture - Final, Complete 12/07/20 Urine Culture - Final, Complete 12/05/20 Blood Culture - Final, Complete NO GROWTH AFTER 5 DAYS 12/04/20 Gram Stain - Final, Complete 12/04/20 Aerobic and Anaerobic Culture - Final, Complete Medications Current Medications Albumin Human 200 ml @ 200 mls/hr 1X ONCE IV ; Start 12/26/20 at 08:45; Stop 12/26/20 at 09:44; Status DC Cefazolin Sodium (Ancef) 1 gm Q24H IVP Last administered on 12/26/20at 15:29; Start 12/26/20 at 16:00 Dextrose (Dextrose 50%-Water Syringe) 25 gm STK-MED ONCE IV ; Start 12/25/20 at 22:23; Stop 12/25/20 at 22:23; Status DC Dextrose (Dextrose 50%-Water Syringe) 25 gm STK-MED ONCE IV ; Start 12/25/20 at 22:30; Stop 12/26/20 at 14:10; Status DC Dextrose (Dextrose 50%-Water Syringe) 25 gm STK-MED ONCE IV ; Start 12/26/20 at 10:54; Stop 12/26/20 at 10:55; Status DC Furosemide (Lasix) 40 mg 1X ONCE IVP Last administered on 12/25/20at 23:16; Start 12/25/20 at 23:00; Stop 12/25/20 at 23:05; Status DC Info (PHARMACY MONITORING -- do not chart) 1 each PRN DAILY PRN MC SEE COMMENTS; Start 12/26/20 at 08:45 Pantoprazole Sodium (PROTONIX VIAL for IV PUSH) 40 mg DAILYAC IVP ; Start 12/27/20 at 07:30 Sodium Chloride 1,000 ml @ 400 mls/hr Q2H30M PRN IV PATENCY; Start 12/26/20 at 08:45; Stop 12/26/20 at 20:44 Sodium Chloride 1,000 ml @ 1,000 mls/hr Q1H PRN IV hypotension; Start 12/26/20 at 08:45; Stop 12/26/20 at 14:44; Status DC Vitals/I & O Vital Sign - Last 24 Hours 12/25/20 12/25/20 12/25/20 12/25/20 17:30 19:00 20:00 23:35 Temp 97.6 97.4 97.6 97.4 Pulse 61 Resp 20 B/P (MAP) 104/47 (66) Pulse Ox 94 89 O2 Delivery Nasal Cannula Nasal Cannula High Flow Nasal Cannula O2 Flow Rate 8.0 10.0 10.0 12/25/20 12/26/20 12/26/2021 23:50 03:26 07:00 08:00 Temp 97.8 98.3 97.5 97.8 98.3 97.5 Pulse 63 61 59 Resp 22 20 23 B/P (MAP) 115/49 (71) 110/54 (72) 104/43 (63) Pulse Ox 100 100 92 O2 Delivery Nasal Cannula Nasal Cannula Nasal Cannula Nasal Cannula O2 Flow Rate 10.0 10.0 10.0 15.0 12/26/20 15:00 Temp 97.4 97.4 Pulse 60 Resp 23 B/P (MAP) 96/51 (66) Pulse Ox 90 O2 Delivery Nasal Cannula O2 Flow Rate 10.0 IRMA GONZALES MD Dec 26, 2020 16:48
--- NOTE | 2020-12-26 18:25 | NUR ---
Pt transferred to ICU room 102. Report called to NAEEM Pace. Pt transported via bed. Pt belongings bagged up and left in room at time of transfer. (shoes, 2 cans of Pringles, one white glove, a phone marklogic developer, and a bag of dirty clothing) Dr. Hinojosa notified son during earlier conversation about the transfer.
[2020-12-26] MEDS: IV NORMAL SALINE 1000ML BAG 1,000 ML IV SCH (18:45)
[2020-12-26] MEDS ORDERED: ATROPINE 0.5 MG/5 ML DISP.SYRINGE. IV PRN (19:15)
[2020-12-26] MEDS ORDERED: MIDAZOLAM HCL/PF 5 MG/5 ML VIAL. IVP PRN (19:15)
[2020-12-26] MEDS ORDERED: DEXMEDETOMIDINE 400 MCG in IV NORMAL SALINE 100ML 96 ML IV PRN (19:15)
[2020-12-26] MEDS ORDERED: IV NORMAL SALINE 500ML BAG 500 ML IV PRN (19:15)
[2020-12-26] MEDS ORDERED: VECURONIUM BOLUS 10 MG VIAL. IV PRN (19:15)
[2020-12-26] MEDS: NOREPINEPHRINE VIAL 8 MG in IV DEXTROSE 5% 250 ML IV PRN (19:15)
[2020-12-26] MEDS ORDERED: ETOMIDATE 20 MG/10 ML VIAL. IV ONE ×2 (19:19→21:15)
[2020-12-26] MEDS: MIDAZOLAM 100mg/100ml NS BAG 100 ML IV PRN (20:00)
[2020-12-26 20:41] LABS: BASE EXCESS ABG 0 mmol/L (-3-3); HCO3 ABG 27 mmol/L (21-28); PO2 ABG 156 mmHg (65-108); SAT O2 ABG 99 % (92-99)
[2020-12-26 20:48] LABS: PCO2 ABG 62 mmHg (35-46)
[2020-12-26 20:49] LABS: FIO2 ABG 100
[2020-12-26] MEDS: IV RINGERS,LACTATED 1000ML 1,000 ML IV SCH (20:52)
[2020-12-26] MEDS: ATORVASTATIN CALCIUM 20 MG TABLET PO SCH (21:00)
[2020-12-26] MEDS: ACETAMINOPHEN 325 MG TABLET. PO SCH (21:00)
--- NOTE | 2020-12-26 21:00 | NUR ---
Patient's SBP drop to 70's and although oxygen saturation upper 90's on Nonrebreather at 15L, RR 30's-40's with lung sounds rhonchi/crackles. Dr Tesfaye notified by NAEEM Pace; orders received to ask CHIEF SAFETY OFFICER to intubate patient and start Levophed. At 1935 Etomidate 8MG IVP followed by Anectine 100mg administered for sedation/paralysis fro intubation. At 1935 patient was intubated by CHIEF SAFETY OFFICER with 7.5 ETT taped at 24 right lip. Color change positive per ETCO2, bilat equal breath sounds heard without in the gastric area. CHIEF SAFETY OFFICER attempted multiple times to place arterial line; was able to cannulate vessel but unable ti thread. #18 OGT inserted by NAEEM Damico; positive placement heard with air instillation and immediate return of brown/coffee ground--Pepcid 20MG IVP ordered. Portable CXR and KUB ordered/completed and resulted at 2099--"Satisfactory positions of the endotracheal and enteric tubes." ABGs drawn at 2034 resulted pH 7.258, pCO62, pO2 155.7, HCO3 27.1, BE -0.4. Dr Tesfaye paged and returned page at 2044, notified of ABG results, orders received to increase rate to 24 and titrate FiO2 to keep oxygen saturation >/= 92%. See orders, titratable mediations intervention, and lab results.
--- NOTE | 2020-12-26 21:01 | RAD ---
EXAMINATION: Chest and abdominal radiographs. VIEWS: Single view of the chest and single view of the abdomen performed. COMPARISON: Same day radiograph INDICATION:85 years, Male, post intubation and NG tube placement. FINDINGS: Normal cardiomediastinal silhouette. Similar diffuse bilateral pulmonary infiltrates. Unchanged small right and trace left pleural effusion. No pneumothorax. No acute osseous process. Endotracheal tube tip locates approximately 5.5 cm proximal to the jairo. Right dialysis catheter is unchanged in posi tion. Left chest wall pacemaker device remains unchanged. Abdomen: Enteric tube tip and sidehole are seen within the stomach. Nonobstructive bowel gas pattern in the visualized upper abdomen. No gross pneumoperitoneum. Multilevel degenerative changes in thorac olumbar spine. IMPRESSION: 1. Satisfactory positions of the endotracheal and enteric tubes. 2. Similar diffuse bilateral pulmonary infiltrates. 3. Unchanged small right and trace left pleural effusions. Electronically signed by: Viola Szymanski MD (12/26/2020 8:59 PM) [facility] [place]
[2020-12-26] MEDS ORDERED: SUCCINYLCHOLINE 200 MG/10 ML VIAL. IV ONE (21:15)
[2020-12-26] MEDS: FAMOTIDINE 20 MG/2 ML VIAL IVP SCH (21:22)
[2020-12-26] MEDS: EPOETIN ALFA-EPBX for ESRD 20,000 UNIT/ML VIAL. SQ SCH (21:29)
--- NOTE | 2020-12-26 21:30 | NUR ---
Called patient's son, Geovani Vargas but uanbel to reach. Message left to call ICU for update on patient.
--- NOTE | 2020-12-26 21:36 | CONS ---
DATE OF CONSULTATION: 12/26/2020 ATTENDING PHYSICIAN: Eugene Hinojosa MD. REASON FOR CONSULTATION: The patient is seen in pulmonary consultation at the request of Dr. Garrison for abnormal x-ray revealing bilateral pulmonary infiltrates, possible ARDS and hypoxemic respiratory failure. HISTORY OF PRESENT ILLNESS: The patient is an 85-year-old that initially presented on 11/29/2020 with bacteremia. He has been seen in consult by Infectious Disease Service for gram-positive bacteremia and leukocytosis. He has been on multiple antibiotics. Over the last 24-48 hours, he has worsening mental status change. He is becoming more short of breath. He is requiring more oxygen supplementation. I was asked to see him in consultation for further evaluation and management. I reviewed his x-ray, which reveals bilateral infiltrates compatible with ARDS. The patient has a history of hypertension, hyperlipidemia, past AFib, who presented to the Emergency Room on 11/28 with complaints of generalized weakness. He is unable to provide any history right now. He is encephalopathic. I spoke with the nurse. He does not follow any commands. PAST MEDICAL HISTORY: Hypertension, pacemaker, AFib, DJD. PAST SURGICAL HISTORY: Knee replacement. SOCIAL HISTORY: He lives at home by himself. FAMILY HISTORY: Noncontributory. REVIEW OF SYSTEMS: Unobtainable secondary to the patient's condition. CURRENT MEDICATIONS: List was reviewed. He is currently on IV fluids. He was on daptomycin, which has been discontinued. He is currently on cefazolin. He was on cefepime at one point. Multiple other medications he has been tried on, furosemide. PHYSICAL EXAMINATION: GENERAL: On examination, the patient is encephalopathic, unable to follow any commands, currently on a nonrebreather and nasal cannula oxygen. In the last 48 hours, he has been afebrile. HEENT: Eyes, the sclerae were nonicteric. NECK: Jugular venous distention was not elevated. CHEST: Full expansion. LUNGS: Crackles throughout both lung hernández. CARDIOVASCULAR: Regular rate and rhythm with S1, S2, no S3. ABDOMEN: Soft. EXTREMITIES: No clubbing, cyanosis. Some edema. LABORATORY DATA: Serology for hepatitis B surface antigen was nonreactive. SARS-CoV-2 was negative. He has had Teachey light chain was high. UA was noted. Electrolytes, deranged AST. He is currently having liver failure with AST and ALT markedly elevated. White count was normal. Arterial blood gas yesterday; pH of 7.34, PaCO2 of 46, pO2 of 59. IMPRESSION: 1. Acute hypoxemic respiratory failure, multifactorial. 2. Abnormal x-ray compatible with acute respiratory distress syndrome, possible pneumonia. 3. Persistent methicillin-sensitive Staph aureus bacteremia, present upon admission. 4. Right togiak joint methicillin-susceptible Staphylococcus aureus septic arthritis. 5. Metabolic toxic encephalopathy. 6. Atrial fibrillation. 7. Hypertension. 8. Liver failure. 9. Severe protein malnutrition, present upon admission. 10. Acute renal failure. 11. Hypotension related to sepsis. PLAN: 1. We will continue oxygen supplementation. 2. Empiric antibiotics. 3. We will discuss with Dr. Hinojosa, the patient is currently full DNR, I do not recommend intubation. 4. Discussed with Dr. Garrison. The patient will continue hemodialysis. 5. Monitor labs. I do appreciate the privilege in sharing in the patient's care. CARITO DR: Gabby TID: [id number]
--- NOTE | 2020-12-26 23:00 | NUR ---
Patient's son, Geovani, called, updated on condition--need for intubation, low BP requiring Levophed to maintain SBP>90 and MAP >65. All questions answered and patient verbalized understanding. Notified of visiting hours in the ICU, son states he will be into see patient in am.
--- NOTE | 2020-12-26 23:27 | RAD ---
EXAM: ULTRASOUND ABDOMEN COMPLETE CLINICAL HISTORY: Reason: abnormal LFTs, abdominal pain / Spl. Instructions: / History: COMPARISON: None available. TECHNIQUE: Ultrasound of the upper abdomen was performed. FINDINGS: Liver contour is normal. Hepatopedal flow noted in the portal vein. Gallbladder is normal appearance without pericholecystic fluid or wall thickening. Common bile duct i s not visualized. Right kidney measures 10.9 cm in long axis. Left kidney measures 11.0 cm in long axis. No hydronephrosis. Spleen is nonenlarged and not well visualized. Aorta and IVC are not well seen. Pancreas is not well seen IMPRESSION: 1. Limited evaluation secondary to overlying bowel gas. 2. Hepatic steatosis. Normal sonographic appearance the gallbladder 3. No hydronephrosis. Electronically signed by: Jonathan Isaac MD (12/26/2020 11:25 PM) [facility]
[2020-12-27] VITALS (30 sets, daily range): BP systolic 63–162; BP diastolic 37–80
[2020-12-27] MEDS: NOREPINEPHRINE VIAL 8 MG in IV DEXTROSE 5% 250 ML IV PRN ×3 (03:48→20:03)
[2020-12-27 06:44] LABS: ALBUMIN 1.7 g/dL (3.4-5.0); CALCIUM 7.5 mg/dL (8.5-10.1); CREATININE 3.5 mg/dL (0.7-1.3); DIRECT BILIRUBIN 1.6 mg/dL (0.0-0.2); GFR 16.8; PHOSPHORUS 2.8 mg/dL (2.6-4.7); TOTAL BILIRUBIN 3.8 mg/dL (0.2-1.0); TOTAL PROTEIN 6.6 g/dL (6.4-8.2)
[2020-12-27 06:56] LABS: HEMATOCRIT 21.2 % (39.0-53.0); RED BLOOD COUNT 2.21 x10^6/uL (4.30-5.70); RED CELL DISTRIBUTION WIDTH 22.3 % (11.5-14.5); WHITE BLOOD COUNT 14.7 x10^3/uL (4.0-11.0)
[2020-12-27] MEDS: IV RINGERS,LACTATED 1000ML 1,000 ML IV SCH ×2 (07:09→18:01)
[2020-12-27 07:12] LABS: HEMOGLOBIN 6.8 g/dL (13.0-17.5)
[2020-12-27] MEDS: DEXTROSE 50% 25 GM / 50ML DISP.SYRIN. IV PRN (07:30)
[2020-12-27] MEDS: PANTOPRAZOLE IV PUSH 40 MG VIAL. IVP SCH (07:30)
--- NOTE | 2020-12-27 07:40 | PN ---
DATE: 12/27/2020 DAILY PROGRESS NOTE LOCATION: He is in room ICU, 102. SUBJECTIVE: This 85-year-old male who presented with MSSA sepsis from a right knee source with eventual development of renal failure requiring dialysis, developed respiratory distress over the last 3 or 4 days related to either fluid overload or ARDS was transferred to the ICU and intubated last evening. This morning, he is sedating on a vent, looks actually more comfortable than he has for the last couple of days. He is currently on 60% FiO2, 5 of PEEP with O2 sat of 100%. I did discuss in detail with his son last evening before transfer and they wished to go to intubation, even if necessary as he has looked so good up to the last several days. OBJECTIVE: VITAL SIGNS: Stable. He is afebrile. He is on low dose norepinephrine. Again, sedating on a vent, 60% FIO2 and 5 of PEEP. CHEST: Reveals decent breath sounds. HEART: Regular rate and rhythm. ABDOMEN: Benign. He did have 4 liters of fluid removed during dialysis yesterday. LABORATORY DATA: Hemoglobin this morning is 6.8 and I have asked nursing to go ahead and transfuse 1 unit of packed red blood cells. He does have what appears to be dark fluid from his stomach tube and we will adjust meds accordingly. White count this morning is up to 14,700. Liver function tests remain elevated with bilirubin climbing to 3.8 this morning. ASSESSMENT: 1. Acute respiratory failure with mechanical ventilation, fluid overload versus acute respiratory distress syndrome. 2. Elevated liver function tests, question whether passive congestion are otherwise with ultrasound of the abdomen showing a fatty liver yesterday. 3. Methicillin-susceptible Staphylococcus aureus sepsis from right knee source. 4. Acute renal failure with ongoing dialysis. PLAN: Continue supportive care. Help of all consultants appreciated. We will see how he does over the next several days. We would like to see ongoing dialysis for fluid removal if possible. OSMANI GIFFORD: Danielle TID: [id number]
[2020-12-27 07:41] LABS: BASE EXCESS ABG 2 mmol/L (-3-3); HCO3 ABG 25 mmol/L (21-28); PCO2 ABG 34 mmHg (35-46); PO2 ABG 105 mmHg (65-108); SAT O2 ABG 98 % (92-99)
[2020-12-27 07:43] LABS: FIO2 ABG 60
[2020-12-27] MEDS ORDERED: ALBUMIN HUMAN 25% 200 ML IV PRN (08:15)
[2020-12-27] MEDS ORDERED: IV NORMAL SALINE 1000ML BAG 1,000 ML IV PRN ×2 (08:15)
[2020-12-27] MEDS ORDERED: DIALYSIS PATIENT. MC PRN (08:15)
[2020-12-27] MEDS: LACTOBACILLUS RHAMNOSUS GG 1 CAPSULE. PO SCH ×2 (09:00→21:00)
[2020-12-27] MEDS: FAMOTIDINE 20 MG/2 ML VIAL IVP SCH (09:00)
--- NOTE | 2020-12-27 09:12 | PDOC ---
PULMONARY PROGRESS NOTES DATE: 12/27/20 TIME: 09:12 Subjective Patient deteriorated last evening, transferred to the ICU, intubated Currently undergoing hemodialysis, hypotensive, given albumin and Levophed Vitals Vital Signs Date Time Temp Pulse Resp B/P (MAP) Pulse Ox O2 Delivery O2 Flow Rate FiO2 12/27/20 07:22 100 Ventilator 12/27/20 06:00 62 24 125/62 12/27/20 04:00 98.7 98.7 12/26/20 20:00 Lungs: Clear Cardiovascular: S1, S2 Abdomen: Soft Extremities: Other (Edema) Skin: Warm Labs Laboratory Tests Test 12/25/20 22:21 12/25/20 22:47 12/25/20 23:14 12/26/20 06:10 Glucose (Fingerstick) 58 mg/dL (70-99) 99 mg/dL (70-99) O2 Saturation 89 % (92-99) Arterial Blood pH 7.34 (7.35-7.45) Arterial Blood pCO2 at Patient Temp 46 mmHg (35-46) Arterial Blood pO2 at Patient Temp 59 mmHg (65-108) Arterial Blood HCO3 24 mmol/L (21-28) Arterial Blood Base Excess -2 mmol/L (-3-3) FiO2 10l highflow Hemoglobin 7.4 g/dL (13.0-17.5) Sodium Level 135 mmol/L (136-145) Potassium Level 4.9 mmol/L (3.5-5.1) Chloride Level 97 mmol/L (98-107) Carbon Dioxide Level 26 mmol/L (21-32) Anion Gap 12 (6-14) Blood Urea Nitrogen 35 mg/dL (8-26) Creatinine 5.4 mg/dL (0.7-1.3) Estimated GFR (Cockcroft-Gault) 10.2 Glucose Level 58 mg/dL (70-99) Calcium Level 7.5 mg/dL (8.5-10.1) Phosphorus Level 6.6 mg/dL (2.6-4.7) Magnesium Level 2.3 mg/dL (1.8-2.4) Total Bilirubin 2.4 mg/dL (0.2-1.0) Direct Bilirubin 1.0 mg/dL (0.0-0.2) Aspartate Amino Transf (AST/SGOT) 1422 U/L (15-37) Alanine Aminotransferase (ALT/SGPT) 204 U/L (16-63) Alkaline Phosphatase 141 U/L (46-116) LP-Czb-[id number]-Type Natriuretic Peptide > 06180 pg/mL (0-449) Total Protein 6.8 g/dL (6.4-8.2) Albumin 1.3 g/dL (3.4-5.0) Test 12/26/20 10:47 12/26/20 11:09 12/26/20 13:00 12/26/20 20:30 Glucose (Fingerstick) 62 mg/dL (70-99) 127 mg/dL (70-99) Ammonia 17 mcmol/L (11-34) O2 Saturation 99 % (92-99) Arterial Blood pH 7.26 (7.35-7.45) Arterial Blood pCO2 at Patient Temp 62 mmHg (35-46) Arterial Blood pO2 at Patient Temp 156 mmHg (65-108) Arterial Blood HCO3 27 mmol/L (21-28) Arterial Blood Base Excess 0 mmol/L (-3-3) FiO2 100 Test 12/27/20 04:45 12/27/20 04:50 12/27/20 07:25 12/27/20 07:53 White Blood Count 14.7 x10^3/uL (4.0-11.0) Red Blood Count 2.21 x10^6/uL (4.30-5.70) Hemoglobin 6.8 g/dL (13.0-17.5) Hematocrit 21.2 % (39.0-53.0) Mean Corpuscular Volume 96 fL (79-100) Mean Corpuscular Hemoglobin 31 pg (25-35) Mean Corpuscular Hemoglobin Concent 32 g/dL (31-37) Red Cell Distribution Width 22.3 % (11.5-14.5) Platelet Count 108 x10^3/uL (140-400) Sodium Level 136 mmol/L (136-145) Potassium Level 4.0 mmol/L (3.5-5.1) Chloride Level 98 mmol/L (98-107) Carbon Dioxide Level 26 mmol/L (21-32) Anion Gap 12 (6-14) Blood Urea Nitrogen 21 mg/dL (8-26) Creatinine 3.5 mg/dL (0.7-1.3) Estimated GFR (Cockcroft-Gault) 16.8 Glucose Level 51 mg/dL (70-99) Calcium Level 7.5 mg/dL (8.5-10.1) Phosphorus Level 2.8 mg/dL (2.6-4.7) Magnesium Level 2.0 mg/dL (1.8-2.4) Total Bilirubin 3.8 mg/dL (0.2-1.0) Direct Bilirubin 1.6 mg/dL (0.0-0.2) Aspartate Amino Transf (AST/SGOT) 1815 U/L (15-37) Alanine Aminotransferase (ALT/SGPT) 220 U/L (16-63) Alkaline Phosphatase 160 U/L (46-116) Total Protein 6.6 g/dL (6.4-8.2) Albumin 1.7 g/dL (3.4-5.0) O2 Saturation 98 % (92-99) Arterial Blood pH 7.49 (7.35-7.45) Arterial Blood pCO2 at Patient Temp 34 mmHg (35-46) Arterial Blood pO2 at Patient Temp 105 mmHg (65-108) Arterial Blood HCO3 25 mmol/L (21-28) Arterial Blood Base Excess 2 mmol/L (-3-3) FiO2 60 Glucose (Fingerstick) 99 mg/dL (70-99) Laboratory Tests Test 12/26/20 10:47 12/26/20 11:09 12/26/20 13:00 12/26/20 20:30 Glucose (Fingerstick) 62 mg/dL (70-99) 127 mg/dL (70-99) Ammonia 17 mcmol/L (11-34) O2 Saturation 99 % (92-99) Arterial Blood pH 7.26 (7.35-7.45) Arterial Blood pCO2 at Patient Temp 62 mmHg (35-46) Arterial Blood pO2 at Patient Temp 156 mmHg (65-108) Arterial Blood HCO3 27 mmol/L (21-28) Arterial Blood Base Excess 0 mmol/L (-3-3) FiO2 100 Test 12/27/20 04:45 12/27/20 04:50 12/27/20 07:25 12/27/20 07:53 White Blood Count 14.7 x10^3/uL (4.0-11.0) Red Blood Count 2.21 x10^6/uL (4.30-5.70) Hemoglobin 6.8 g/dL (13.0-17.5) Hematocrit 21.2 % (39.0-53.0) Mean Corpuscular Volume 96 fL (79-100) Mean Corpuscular Hemoglobin 31 pg (25-35) Mean Corpuscular Hemoglobin Concent 32 g/dL (31-37) Red Cell Distribution Width 22.3 % (11.5-14.5) Platelet Count 108 x10^3/uL (140-400) Sodium Level 136 mmol/L (136-145) Potassium Level 4.0 mmol/L (3.5-5.1) Chloride Level 98 mmol/L (98-107) Carbon Dioxide Level 26 mmol/L (21-32) Anion Gap 12 (6-14) Blood Urea Nitrogen 21 mg/dL (8-26) Creatinine 3.5 mg/dL (0.7-1.3) Estimated GFR (Cockcroft-Gault) 16.8 Glucose Level 51 mg/dL (70-99) Calcium Level 7.5 mg/dL (8.5-10.1) Phosphorus Level 2.8 mg/dL (2.6-4.7) Magnesium Level 2.0 mg/dL (1.8-2.4) Total Bilirubin 3.8 mg/dL (0.2-1.0) Direct Bilirubin 1.6 mg/dL (0.0-0.2) Aspartate Amino Transf (AST/SGOT) 1815 U/L (15-37) Alanine Aminotransferase (ALT/SGPT) 220 U/L (16-63) Alkaline Phosphatase 160 U/L (46-116) Total Protein 6.6 g/dL (6.4-8.2) Albumin 1.7 g/dL (3.4-5.0) O2 Saturation 98 % (92-99) Arterial Blood pH 7.49 (7.35-7.45) Arterial Blood pCO2 at Patient Temp 34 mmHg (35-46) Arterial Blood pO2 at Patient Temp 105 mmHg (65-108) Arterial Blood HCO3 25 mmol/L (21-28) Arterial Blood Base Excess 2 mmol/L (-3-3) FiO2 60 Glucose (Fingerstick) 99 mg/dL (70-99) Medications Active Scripts Medications Dose Route/Sig Max Daily Dose Days Date Category Nafcillin 2 Gm/ 100 Ml Inj (Nafcillin In Dextrose,Iso-Osm) 2 Gm/100 Ml Froz.piggy 2 Gm IV Q4HRS 30 12/16/20 Rx Acetaminophen 325 Mg Tablet 650 Mg PO QHS 11/28/20 Reported Aspirin 81 Mg Tab.chew 1 Tab PO DAILY 11/01/20 Reported Men's Multivitamin Tablet (Multivit-Min/Folic/Vit K/Lycop) 1 Each Tablet 1 Each PO DAILY 07/19/20 Reported Pravastatin Sodium 80 Mg Tablet 1 Tab PO DAILY 03/02/19 Reported Lasix (Furosemide) 40 Mg Tablet 1 Tab PO DAILY 01/11/14 Reported Colace (Docusate Sodium) 100 Mg Capsule 1 Cap PO PRN BID PRN 01/11/14 Reported Impression . IMPRESSION: 1. Acute hypoxemic respiratory failure, multifactorial. 2. Abnormal x-ray compatible with acute respiratory distress syndrome, possible pneumonia. 3. Persistent methicillin-sensitive Staph aureus bacteremia, present upon admission. 4. Right muscogee joint methicillin-susceptible Staphylococcus aureus septic arthritis. 5. Metabolic toxic encephalopathy. 6. Atrial fibrillation. 7. Hypertension. 8. Liver failure. 9. Severe protein malnutrition, present upon admission. 10. Acute renal failure. 11. Hypotension related to sepsis. Plan . Updated 12/27 Events of the yesterday no Patient deteriorated needing intubation, family wishes to proceed with aggressive care Continue assist-control ventilation adjust minute ventilation Currently undergoing hemodialysis, negative fluid balance if possible Transfuse Labs and chest x-ray reviewed Antibiotics per ID Case discussed yesterday with Dr. Hinojosa 12/26 PLAN: 1. We will continue oxygen supplementation. 2. Empiric antibiotics. 3. We will discuss with Dr. Hinojosa, the patient is currently full DNR, I do not recommend intubation. 4. Discussed with Dr. Garrison. The patient will continue hemodialysis. 5. Monitor labs. ANGELITO SINGH MD Dec 27, 2020 09:12
[2020-12-27] MEDS ORDERED: PHYTONADIONE 10 MG/ML AMPUL. SQ ONE (09:45)
--- NOTE | 2020-12-27 09:58 | PDOC ---
PROGRESS NOTES Date of Service DATE: 12/27/20 TIME: 09:57 Assessment Problems Medical Problems: (1) Hypokalemia Status: Acute (2) Person under investigation for COVID-19 Status: Acute (3) Pneumonia Status: Acute (4) Sepsis Status: Acute Patient worsened and was intubated on 12/26, son wanted full aggressive care. Metabolic encephalopathy Respiratory failure, possible fluid overload, renal failure, sepsis Plan Treat medical issues Holding off on additional neurological studies Subjective None Objective Vital Signs Date Time Temp Pulse Resp B/P (MAP) Pulse Ox O2 Delivery O2 Flow Rate FiO2 12/27/20 07:22 100 Ventilator 12/27/20 06:00 62 24 125/62 12/27/20 04:00 98.7 98.7 12/26/20 20:00 Intake and Output 12/27/20 07:00 Intake Total 1209 ml Output Total 300 ml Balance 909 ml IV Total 1209 ml Output Urine Total 0 ml Gastric Drainage Total 300 ml PHYSICAL EXAM Intubated and sedated, no response to pain or voice PERRL. EOMI. CN: no focal findings. Muscle tone: normal. Muscle strength: Untestable DTR: 1+ Plantar reflex: Silent Gait: not examined in bed. Sensory exam: Not cooperative Cerebellar: Not cooperative Review of Relevant I have reviewed the following items mel (where applicable) has been applied. Labs Laboratory Tests Test 12/25/20 22:21 12/25/20 22:47 12/25/20 23:14 12/26/20 06:10 Glucose (Fingerstick) 58 mg/dL (70-99) 99 mg/dL (70-99) O2 Saturation 89 % (92-99) Arterial Blood pH 7.34 (7.35-7.45) Arterial Blood pCO2 at Patient Temp 46 mmHg (35-46) Arterial Blood pO2 at Patient Temp 59 mmHg (65-108) Arterial Blood HCO3 24 mmol/L (21-28) Arterial Blood Base Excess -2 mmol/L (-3-3) FiO2 10l highflow Hemoglobin 7.4 g/dL (13.0-17.5) Sodium Level 135 mmol/L (136-145) Potassium Level 4.9 mmol/L (3.5-5.1) Chloride Level 97 mmol/L (98-107) Carbon Dioxide Level 26 mmol/L (21-32) Anion Gap 12 (6-14) Blood Urea Nitrogen 35 mg/dL (8-26) Creatinine 5.4 mg/dL (0.7-1.3) Estimated GFR (Cockcroft-Gault) 10.2 Glucose Level 58 mg/dL (70-99) Calcium Level 7.5 mg/dL (8.5-10.1) Phosphorus Level 6.6 mg/dL (2.6-4.7) Magnesium Level 2.3 mg/dL (1.8-2.4) Total Bilirubin 2.4 mg/dL (0.2-1.0) Direct Bilirubin 1.0 mg/dL (0.0-0.2) Aspartate Amino Transf (AST/SGOT) 1422 U/L (15-37) Alanine Aminotransferase (ALT/SGPT) 204 U/L (16-63) Alkaline Phosphatase 141 U/L (46-116) MA-Mcy-P-Type Natriuretic Peptide > 81345 pg/mL (0-449) Total Protein 6.8 g/dL (6.4-8.2) Albumin 1.3 g/dL (3.4-5.0) Test 12/26/20 10:47 12/26/20 11:09 12/26/20 13:00 12/26/20 20:30 Glucose (Fingerstick) 62 mg/dL (70-99) 127 mg/dL (70-99) Ammonia 17 mcmol/L (11-34) O2 Saturation 99 % (92-99) Arterial Blood pH 7.26 (7.35-7.45) Arterial Blood pCO2 at Patient Temp 62 mmHg (35-46) Arterial Blood pO2 at Patient Temp 156 mmHg (65-108) Arterial Blood HCO3 27 mmol/L (21-28) Arterial Blood Base Excess 0 mmol/L (-3-3) FiO2 100 Test 12/27/20 04:45 12/27/20 04:50 12/27/20 07:25 12/27/20 07:53 White Blood Count 14.7 x10^3/uL (4.0-11.0) Red Blood Count 2.21 x10^6/uL (4.30-5.70) Hemoglobin 6.8 g/dL (13.0-17.5) Hematocrit 21.2 % (39.0-53.0) Mean Corpuscular Volume 96 fL (79-100) Mean Corpuscular Hemoglobin 31 pg (25-35) Mean Corpuscular Hemoglobin Concent 32 g/dL (31-37) Red Cell Distribution Width 22.3 % (11.5-14.5) Platelet Count 108 x10^3/uL (140-400) Sodium Level 136 mmol/L (136-145) Potassium Level 4.0 mmol/L (3.5-5.1) Chloride Level 98 mmol/L (98-107) Carbon Dioxide Level 26 mmol/L (21-32) Anion Gap 12 (6-14) Blood Urea Nitrogen 21 mg/dL (8-26) Creatinine 3.5 mg/dL (0.7-1.3) Estimated GFR (Cockcroft-Gault) 16.8 Glucose Level 51 mg/dL (70-99) Calcium Level 7.5 mg/dL (8.5-10.1) Phosphorus Level 2.8 mg/dL (2.6-4.7) Magnesium Level 2.0 mg/dL (1.8-2.4) Total Bilirubin 3.8 mg/dL (0.2-1.0) Direct Bilirubin 1.6 mg/dL (0.0-0.2) Aspartate Amino Transf (AST/SGOT) 1815 U/L (15-37) Alanine Aminotransferase (ALT/SGPT) 220 U/L (16-63) Alkaline Phosphatase 160 U/L (46-116) Total Protein 6.6 g/dL (6.4-8.2) Albumin 1.7 g/dL (3.4-5.0) O2 Saturation 98 % (92-99) Arterial Blood pH 7.49 (7.35-7.45) Arterial Blood pCO2 at Patient Temp 34 mmHg (35-46) Arterial Blood pO2 at Patient Temp 105 mmHg (65-108) Arterial Blood HCO3 25 mmol/L (21-28) Arterial Blood Base Excess 2 mmol/L (-3-3) FiO2 60 Glucose (Fingerstick) 99 mg/dL (70-99) Test 12/27/20 08:35 Prothrombin Time 40.0 SEC (11.7-14.0) Prothromb Time International Ratio 4.3 (0.8-1.1) Laboratory Tests Test 12/26/20 10:47 12/26/20 11:09 11/1/21 13:00 12/26/20 20:30 Glucose (Fingerstick) 62 mg/dL (70-99) 127 mg/dL (70-99) Ammonia 17 mcmol/L (11-34) O2 Saturation 99 % (92-99) Arterial Blood pH 7.26 (7.35-7.45) Arterial Blood pCO2 at Patient Temp 62 mmHg (35-46) Arterial Blood pO2 at Patient Temp 156 mmHg (65-108) Arterial Blood HCO3 27 mmol/L (21-28) Arterial Blood Base Excess 0 mmol/L (-3-3) FiO2 100 Test 12/27/20 04:45 12/27/20 04:50 12/27/20 07:25 12/27/20 07:53 White Blood Count 14.7 x10^3/uL (4.0-11.0) Red Blood Count 2.21 x10^6/uL (4.30-5.70) Hemoglobin 6.8 g/dL (13.0-17.5) Hematocrit 21.2 % (39.0-53.0) Mean Corpuscular Volume 96 fL (79-100) Mean Corpuscular Hemoglobin 31 pg (25-35) Mean Corpuscular Hemoglobin Concent 32 g/dL (31-37) Red Cell Distribution Width 22.3 % (11.5-14.5) Platelet Count 108 x10^3/uL (140-400) Sodium Level 136 mmol/L (136-145) Potassium Level 4.0 mmol/L (3.5-5.1) Chloride Level 98 mmol/L (98-107) Carbon Dioxide Level 26 mmol/L (21-32) Anion Gap 12 (6-14) Blood Urea Nitrogen 21 mg/dL (8-26) Creatinine 3.5 mg/dL (0.7-1.3) Estimated GFR (Cockcroft-Gault) 16.8 Glucose Level 51 mg/dL (70-99) Calcium Level 7.5 mg/dL (8.5-10.1) Phosphorus Level 2.8 mg/dL (2.6-4.7) Magnesium Level 2.0 mg/dL (1.8-2.4) Total Bilirubin 3.8 mg/dL (0.2-1.0) Direct Bilirubin 1.6 mg/dL (0.0-0.2) Aspartate Amino Transf (AST/SGOT) 1815 U/L (15-37) Alanine Aminotransferase (ALT/SGPT) 220 U/L (16-63) Alkaline Phosphatase 160 U/L (46-116) Total Protein 6.6 g/dL (6.4-8.2) Albumin 1.7 g/dL (3.4-5.0) O2 Saturation 98 % (92-99) Arterial Blood pH 7.49 (7.35-7.45) Arterial Blood pCO2 at Patient Temp 34 mmHg (35-46) Arterial Blood pO2 at Patient Temp 105 mmHg (65-108) Arterial Blood HCO3 25 mmol/L (21-28) Arterial Blood Base Excess 2 mmol/L (-3-3) FiO2 60 Glucose (Fingerstick) 99 mg/dL (70-99) Test 12/27/20 08:35 Prothrombin Time 40.0 SEC (11.7-14.0) Prothromb Time International Ratio 4.3 (0.8-1.1) Microbiology 12/22/20 Gram Stain Evaluation - Final, Complete 12/22/20 Respiratory Culture - Final, Complete 12/07/20 Urine Culture - Final, Complete 12/05/20 Blood Culture - Final, Complete NO GROWTH AFTER 5 DAYS 12/04/20 Gram Stain - Final, Complete 12/04/20 Aerobic and Anaerobic Culture - Final, Complete Medications Current Medications Ceftriaxone Sodium (Rocephin) 1 gm 1X ONCE IVP Last administered on 11/28/20at 13:30; Start 11/28/20 at 13:30; Stop 11/28/20 at 13:31; Status DC Azithromycin 500 mg/Sodium Chloride 250 ml @ 250 mls/hr 1X ONCE IV ; Start 11/28/20 at 13:30; Stop 11/28/20 at 14:29; Status UNV Azithromycin 250 ml @ 250 mls/hr 1X ONCE IV Last administered on 11/28/20at 15:11; Start 11/28/20 at 13:30; Stop 11/28/20 at 14:29; Status DC Acetaminophen (Tylenol) 1,000 mg 1X ONCE PO Last administered on 11/28/20at 15:10; Start 11/28/20 at 14:45; Stop 11/28/20 at 14:46; Status DC Potassium Chloride/Water 100 ml @ 50 mls/hr 1X ONCE IV Last administered on 11/28/20at 16:20; Start 11/28/20 at 14:45; Stop 11/28/20 at 16:44; Status DC Potassium Chloride (Klor-Con) 40 meq 1X ONCE PO Last administered on 11/28/20at 16:21; Start 11/28/20 at 14:45; Stop 11/28/20 at 14:46; Status DC Sodium Chloride 1,000 ml @ 1,000 mls/hr 1X ONCE IV Last administered on 11/28/20at 17:41; Start 11/28/20 at 17:45; Stop 11/28/20 at 18:44; Status DC Acetaminophen (Tylenol) 650 mg PRN Q6HRS PRN PO MILD PAIN / TEMP > 100.3'F Last administered on 11/28/20at 20:36; Start 11/28/20 at 20:30 Influenza Virus Vaccine Quadrival (Flulaval Quad [id number] Syringe) 0.5 ml ONCE ONCE VAX IM Last administered on 11/29/20at 10:06; Start 11/29/20 at 09:00; Stop 11/29/20 at 09:01; Status DC Acetaminophen/ Hydrocodone Bitart (Lortab 5/325) 1 tab PRN Q4HRS PRN PO PAIN mod/severe Last administered on 12/05/20at 17:38; Start 11/28/20 at 22:45; Stop 12/05/20 at 19:50; Status DC Ceftriaxone Sodium (Rocephin) 1 gm Q24H IVP ; Start 11/29/20 at 13:00; Stop 11/29/20 at 13:11; Status DC Azithromycin 250 ml @ 250 mls/hr DAILY ONCE IV ; Start 11/30/20 at 09:00; Stop 11/30/20 at 09:59; Status UNV Azithromycin 500 mg/Sodium Chloride 250 ml @ 250 mls/hr Q24H IV ; Start 11/29/20 at 15:00; Stop 11/29/20 at 13:50; Status DC Acetaminophen (Tylenol) 650 mg QHS PO Last administered on 12/24/20at 22:38; Start 11/29/20 at 21:00 Aspirin (Aspirin Chewable) 81 mg DAILY PO Last administered on 12/19/20at 12:40; Start 11/30/20 at 09:00; Stop 12/19/20 at 14:26; Status DC Docusate Sodium (Colace) 100 mg PRN BID PRN PO HARD STOOLS Last administered on 12/01/20at 12:10; Start 11/29/20 at 09:45; Stop 12/17/20 at 17:41; Status DC Warfarin Sodium (Coumadin) 3.75 mg DAILY PO ; Start 11/30/20 at 09:00; Status UNV Atorvastatin Calcium (Lipitor) 20 mg QHS PO Last administered on 12/18/20at 20:29; Start 11/29/20 at 21:00; Stop 12/19/20 at 14:26; Status DC Daptomycin 500 mg/ Sodium Chloride 50 ml @ 100 mls/hr Q24H IV Last administered on 11/30/20at 13:19; Start 11/29/20 at 13:00; Stop 12/01/20 at 07:32; Status DC Ceftriaxone Sodium (Rocephin) 2 gm Q24H IVP Last administered on 11/30/20at 13:21; Start 11/29/20 at 14:00; Stop 12/01/20 at 09:19; Status DC Lactobacillus Rhamnosus (Culturelle) 1 cap BID PO Last administered on 12/24/20at 22:38; Start 11/29/20 at 21:00 Daptomycin 580 mg/ Sodium Chloride 50 ml @ 100 mls/hr Q24H IV Last administered on 12/01/20at 08:52; Start 12/01/20 at 07:30; Stop 12/01/20 at 09:19; Status DC Nafcillin Sodium 2 gm/Dextrose 100 ml @ 200 mls/hr Q4HRS IV Last administered on 12/21/20at 04:11; Start 12/01/20 at 10:00; Stop 12/21/20 at 08:19; Status DC Carvedilol (Coreg) 6.25 mg DAILY PO ; Start 12/01/20 at 12:00; Stop 12/01/20 at 12:00; Status DC Furosemide (Lasix) 40 mg DAILY PO Last administered on 12/07/20at 08:28; Start 12/01/20 at 12:00; Stop 12/07/20 at 14:46; Status DC Potassium Chloride (Klor-Con) 20 meq DAILYWBKFT PO Last administered on 12/07/20at 08:28; Start 12/02/20 at 08:00; Stop 12/07/20 at 14:46; Status DC Potassium Chloride (Klor-Con) 20 meq 1X ONCE PO Last administered on 12/01/20at 12:12; Start 12/01/20 at 11:15; Stop 12/01/20 at 11:27; Status DC Carvedilol (Coreg) 3.125 mg BIDWMEALS PO Last administered on 12/03/20at 16:39; Start 12/01/20 at 12:00; Stop 12/05/20 at 20:11; Status DC Lidocaine HCl (Lidocaine 1% 20ml Vial) 10 ml 1X ONCE INJ ; Start 12/01/20 at 16:00; Stop 12/01/20 at 16:01; Status DC Ringer's Solution 1,000 ml @ 50 mls/hr Q20H IV Last administered on 12/05/20at 12:10; Start 12/05/20 at 07:00; Stop 12/05/20 at 18:59; Status DC Phytonadione (Vitamin K Ampule) 10 mg 1X ONCE SQ Last administered on 12/02/20at 11:09; Start 12/02/20 at 10:45; Stop 12/02/20 at 10:46; Status DC Sodium Chloride (Saline Mist Nasal) 1 hiro PRN Q1HR PRN NS NASAL CONGESTION Last administered on 12/20/20at 23:52; Start 12/02/20 at 20:45 Phytonadione (Vitamin K Ampule) 10 mg 1X ONCE SQ Last administered on at 11:17; Start 12/03/20 at 11:00; Stop 12/03/20 at 11:01; Status DC Docusate Sodium (Colace) 100 mg BID PO Last administered on 12/20/20at 08:52; Start 12/03/20 at 21:00; Stop 12/21/20 at 11:19; Status DC Polyethylene Glycol (miraLAX PACKET) 17 gm PRN DAILY PRN PO CONSTIPATION Last administered on 12/06/20at 09:16; Start 12/03/20 at 19:00 Fentanyl Citrate (Fentanyl 2ml Vial) 25 mcg PRN Q5MIN PRN IVP MILD PAIN 1-3; Start 12/04/20 at 09:30; Stop 12/05/20 at 09:29; Status DC Fentanyl Citrate (Fentanyl 2ml Vial) 50 mcg PRN Q5MIN PRN IVP MODERATE PAIN 4- 6; Start 12/04/20 at 09:30; Stop 12/05/20 at 09:29; Status DC Morphine Sulfate (Morphine Sulfate) 1 mg PRN Q10MIN PRN IVP SEVERE PAIN 7-10; Start 12/04/20 at 09:30; Stop 12/05/20 at 09:29; Status DC Ringer's Solution 1,000 ml @ 30 mls/hr Q24H IV ; Start 12/04/20 at 09:30; Stop 12/04/20 at 21:29; Status DC Hydromorphone HCl (Dilaudid) 0.5 mg PRN Q10MIN PRN IVP SEVERE PAIN 7-10, 2nd CHOICE; Start 12/04/20 at 09:30; Stop 12/05/20 at 09:29; Status DC Prochlorperazine Edisylate (Compazine) 5 mg PACU PRN PRN IVP NAUSEA, MRX1; Start 12/04/20 at 09:30; Stop 12/05/20 at 09:29; Status DC Propofol (Diprivan) 200 mg STK-MED ONCE IV ; Start 12/04/20 at 10:43; Stop 12/04/20 at 10:43; Status DC Lidocaine HCl (Lidocaine Pf 2% Vial) 5 ml STK-MED ONCE .ROUTE ; Start 12/04/20 at 10:43; Stop 12/04/20 at 10:43; Status DC Phenylephrine HCl (PHENYLEPHRINE in 0.9% NACL PF) 1 mg STK-MED ONCE IV ; Start 12/04/20 at 10:43; Stop 12/04/20 at 10:43; Status DC Sevoflurane (Ultane) 60 ml STK-MED ONCE IH ; Start 12/04/20 at 11:14; Stop 12/04/20 at 11:14; Status DC Dexamethasone Sodium Phosphate (Decadron) 4 mg STK-MED ONCE .ROUTE ; Start 12/04/20 at 11:26; Stop 12/04/20 at 11:26; Status DC Ondansetron HCl (Zofran) 4 mg STK-MED ONCE .ROUTE ; Start 12/04/20 at 11:26; Stop 12/04/20 at 11:26; Status DC Fentanyl Citrate (Fentanyl 2ml Vial) 100 mcg STK-MED ONCE .ROUTE ; Start 12/04/20 at 11:26; Stop 12/04/20 at 11:26; Status DC Daptomycin 500 mg/ Sodium Chloride 50 ml @ 100 mls/hr Q24H IV Last administered on 12/11/20at 10:46; Start 12/05/20 at 10:00; Stop 12/11/20 at 17:00; Status DC Propofol (Diprivan) 200 mg STK-MED ONCE IV ; Start 12/05/20 at 09:29; Stop 12/05/20 at 09:30; Status DC Lidocaine HCl (Viscous Lidocaine) 15 ml STK-MED ONCE .ROUTE ; Start 12/05/20 at 10:06; Stop 12/05/20 at 10:06; Status DC Lidocaine HCl (Xylocaine 2% Topical 30gm Tube) 30 hiro STK-MED ONCE TP ; Start 12/05/20 at 10:06; Stop 12/05/20 at 10:06; Status DC Benzocaine (Hurricaine One) 1 spray STK-MED ONCE .ROUTE ; Start 12/05/20 at 10:06; Stop 12/05/20 at 10:07; Status DC Acetaminophen/ Hydrocodone Bitart (Lortab 10/325) 1 tab PRN Q4HRS PRN PO MODERATE TO SEVERE PAIN Last administered on 12/24/20at 14:02; Start 12/05/20 at 20:00 Zolpidem Tartrate (Ambien) 5 mg PRN QHS PRN PO INSOMNIA Last administered on 12/23/20at 22:11; Start 12/05/20 at 20:00 Sodium Chloride 1,000 ml @ 1,000 mls/hr 1X ONCE IV Last administered on 12/06/20at 09:32; Start 12/06/20 at 09:15; Stop 12/06/20 at 10:14; Status DC Sodium Chloride 1,000 ml @ 100 mls/hr 1X ONCE IV Last administered on 12/06/20at 15:30; Start 12/06/20 at 13:15; Stop 12/06/20 at 23:14; Status DC Sodium Chloride 1,000 ml @ 100 mls/hr 1X ONCE IV Last administered on 12/07/20at 13:24; Start 12/07/20 at 11:45; Stop 12/08/20 at 10:55; Status DC Metoprolol Succinate (Toprol Xl) 25 mg DAILY PO Last administered on 12/24/20at 08:41; Start 12/09/20 at 09:00; Stop 12/25/20 at 10:43; Status DC Potassium Chloride (Klor-Con) 20 meq 1X ONCE PO Last administered on 12/10/20at 18:52; Start 12/10/20 at 19:00; Stop 12/10/20 at 19:01; Status DC Daptomycin 500 mg/ Sodium Chloride 50 ml @ 100 mls/hr Q48H IV Last administered on 12/25/20at 17:33; Start 12/13/20 at 10:00; Stop 12/26/20 at 11:55; Status DC Lidocaine HCl (Buffered Lidocaine 1%) 3 ml STK-MED ONCE .ROUTE ; Start 12/12/20 at 10:27; Stop 12/12/20 at 10:27; Status DC Sodium Chloride 1,000 ml @ 1,000 mls/hr Q1H PRN IV hypotension; Start 12/12/20 at 12:00; Stop 12/12/20 at 17:59; Status DC Albumin Human 200 ml @ 200 mls/hr 1X PRN PRN IV Hypotension; Start 12/12/20 at 12:00; Stop 12/12/20 at 17:59; Status DC Sodium Chloride (Normal Saline Flush) 10 ml 1X PRN PRN IV AP catheter pack; Start 12/12/20 at 12:00; Stop 12/13/20 at 11:59; Status DC Sodium Chloride (Normal Saline Flush) 10 ml 1X PRN PRN IV FIRER GLOST KILN catheter pack; Start 12/12/20 at 12:00; Stop 12/13/20 at 11:59; Status DC Info (PHARMACY MONITORING -- do not chart) 1 each PRN DAILY PRN MC SEE COMMENTS; Start 12/12/20 at 12:00; Status UNV Info (PHARMACY MONITORING -- do not chart) 1 each PRN DAILY PRN MC SEE COMMENT S; Start 12/12/20 at 12:00; Status Cancel Lidocaine HCl (Buffered Lidocaine 1%) 4 ml 1X ONCE INJ Last administered on 12/12/20at 13:11; Start 12/12/20 at 13:15; Stop 12/12/20 at 13:18; Status DC Sodium Chloride 1,000 ml @ 1,000 mls/hr Q1H PRN IV hypotension; Start 12/13/20 at 09:30; Stop 12/13/20 at 15:29; Status DC Sodium Chloride 1,000 ml @ 400 mls/hr Q2H30M PRN IV PATENCY; Start 12/13/20 at 09:30; Stop 12/13/20 at 21:29; Status DC Info (PHARMACY MONITORING -- do not chart) 1 each PRN DAILY PRN MC SEE COMMENTS; Start 12/13/20 at 09:30; Status UNV Info (PHARMACY MONITORING -- do not chart) 1 each PRN DAILY PRN MC SEE COMMENTS; Start 12/13/20 at 09:30; Status UNV Epoetin Krishna-epbx (RETACRIT for ESRD PTS) 10,000 unit MoWeFr@2100 SQ Last administered on 12/26/20at 21:29; Start 12/14/20 at 21:00 Sodium Chloride 1,000 ml @ 1,000 mls/hr Q1H PRN IV hypotension; Start 12/15/20 at 07:00; Stop 12/15/20 at 12:59; Status DC Sodium Chloride 1,000 ml @ 400 mls/hr Q2H30M PRN IV PATENCY; Start 12/15/20 at 07:00; Stop 12/15/20 at 18:59; Status DC Info (PHARMACY MONITORING -- do not chart) 1 each PRN DAILY PRN MC SEE COM MENTS; Start 12/15/20 at 07:00; Stop 12/15/20 at 07:00; Status DC Info (PHARMACY MONITORING -- do not chart) 1 each PRN DAILY PRN MC SEE COMMENTS; Start 12/15/20 at 07:00; Stop 12/15/20 at 07:00; Status DC Sodium Chloride 1,000 ml @ 1,000 mls/hr Q1H PRN IV hypotension; Start 12/17/20 at 10:30; Stop 12/17/20 at 16:29; Status DC Albumin Human 200 ml @ 200 mls/hr 1X PRN PRN IV Hypotension Last administered on 12/17/20at 11:15; Start 12/17/20 at 10:30; Stop 12/17/20 at 16:29; Status DC Sodium Chloride 1,000 ml @ 400 mls/hr Q2H30M PRN IV PATENCY; Start 12/17/20 at 10:30; Stop 12/17/20 at 22:29; Status DC Info (PHARMACY MONITORING -- do not chart) 1 each PRN DAILY PRN MC SEE COMMENTS; Start 12/17/20 at 11:15; Stop 12/19/20 at 13:24; Status DC Info (PHARMACY MONITORING -- do not chart) 1 each PRN DAILY PRN MC SEE COMMENTS; Start 12/17/20 at 11:15; Status UNV Docusate Sodium (Colace) 100 mg PRN BID PRN PO HARD STOOLS; Start 12/17/20 at 17:45 Sodium Chloride 1,000 ml @ 30 mls/hr Q24H IV Last administered on 12/21/20at 20:34; Start 12/18/20 at 18:45 Sodium Chloride 1,000 ml @ 1,000 mls/hr Q1H PRN IV hypotension; Start 12/19/20 at 08:30; Stop 12/19/20 at 14:29; Status DC Albumin Human 100 ml @ 100 mls/hr 1X PRN PRN IV Hypotension; Start 12/19/20 at 08:30; Stop 12/19/20 at 14:29; Status DC Sodium Chloride 1,000 ml @ 400 mls/hr Q2H30M PRN IV PATENCY; Start 12/19/20 at 08:30; Stop 12/19/20 at 20:29; Status DC Info (PHARMACY MONITORING -- do not chart) 1 each PRN DAILY PRN MC SEE COMMENTS; Start 12/19/20 at 08:30; Stop 12/19/20 at 13:24; Status DC Info (PHARMACY MONITORING -- do not chart) 1 each PRN DAILY PRN MC SEE COMMENTS; Start 12/19/20 at 08:30; Stop 12/21/20 at 07:55; Status DC Atorvastatin Calcium (Lipitor) 40 mg QHS PO Last administered on 12/24/20at 22:38; Start 12/19/20 at 21:00 Pantoprazole Sodium (Protonix) 40 mg DAILYAC PO Last administered on 12/24/20at 06:15; Start 12/20/20 at 09:15; Stop 12/26/20 at 10:17; Status DC Sodium Chloride 1,000 ml @ 1,000 mls/hr Q1H PRN IV hypotension; Start 12/21/20 at 08:00; Stop 12/21/20 at 13:59; Status DC Sodium Chloride 1,000 ml @ 400 mls/hr Q2H30M PRN IV PATENCY; Start 12/21/20 at 08:00; Stop 12/21/20 at 19:59; Status DC Info (PHARMACY MONITORING -- do not chart) 1 each PRN DAILY PRN MC SEE COMMENTS; Start 12/21/20 at 08:00; Stop 12/21/20 at 07:54; Status DC Info (PHARMACY MONITORING -- do not chart) 1 each PRN DAILY PRN MC SEE COMMENTS; Start 12/21/20 at 08:00; Status Cancel Cefepime HCl (Maxipime) 1 gm Q24H IVP Last administered on 12/25/20at 12:32; Start 12/22/20 at 11:00; Stop 12/26/20 at 11:56; Status DC Furosemide (Lasix) 40 mg 1X ONCE IVP Last administered on 12/22/20at 11:17; Start 12/22/20 at 11:15; Stop 12/22/20 at 11:16; Status DC Sodium Chloride 1,000 ml @ 1,000 mls/hr Q1H PRN IV hypotension; Start 12/23/20 at 10:15; Stop 12/23/20 at 16:14; Status DC Albumin Human 200 ml @ 200 mls/hr 1X PRN PRN IV Hypotension; Start 12/23/20 at 10:15; Stop 12/23/20 at 16:14; Status DC Sodium Chloride (Normal Saline Flush) 10 ml 1X PRN PRN IV AP catheter pack; Start 12/23/20 at 10:15; Stop 12/24/20 at 10:14; Status DC Sodium Chloride (Normal Saline Flush) 10 ml 1X PRN PRN IV FIRER GLOST KILN catheter pack; Start 12/23/20 at 10:15; Stop 12/24/20 at 10:14; Status DC Sodium Chloride 1,000 ml @ 400 mls/hr Q2H30M PRN IV PATENCY; Start 12/23/20 at 10:15; Stop 12/23/20 at 22:14; Status DC Info (PHARMACY MONITORING -- do not chart) 1 each PRN DAILY PRN MC SEE COMMENTS; Start 12/23/20 at 10:15; Status UNV Info (PHARMACY MONITORING -- do not chart) 1 each PRN DAILY PRN MC SEE COMMENTS; Start 12/23/20 at 10:15; Status Cancel Aspirin (Ecotrin) 81 mg DAILYWBKFT PO Last administered on 12/24/20at 08:40; Start 12/23/20 at 13:00 Cefazolin Sodium/ Dextrose 50 ml @ 100 mls/hr 1X PREOP PRN IV PRIOR TO PROCEDURE Last administered on 12/23/20at 14:46; Start 12/23/20 at 14:00; Stop 12/24/20 at 13:59; Status DC Midazolam HCl (Versed) 2 mg 1X ONCE IV Last administered on 12/23/20at 14:00; Start 12/23/20 at 14:00; Stop 12/23/20 at 14:06; Status DC Fentanyl Citrate (Fentanyl 2ml Vial) 100 mcg 1X ONCE IV Last administered on 12/23/20at 14:00; Start 12/23/20 at 14:00; Stop 12/23/20 at 14:06; Status DC Cefazolin Sodium/ Dextrose 50 ml @ As Directed STK-MED ONCE IV ; Start 12/23/20 at 13:57; Stop 12/23/20 at 13:58; Status DC Lidocaine/ Epinephrine (LIDOCAINE 1%-EPI 1:100,000 Multi-Dose) 20 ml STK-MED ONCE .ROUTE ; Start 12/23/20 at 13:58; Stop 12/23/20 at 13:58; Status DC Lidocaine/ Epinephrine (LIDOCAINE 1%-EPI 1:100,000 Multi-Dose) 20 ml 1X ONCE INJ Last administered on 12/23/20at 14:15; Start 12/23/20 at 14:15; Stop 12/23/20 at 14:16; Status DC Linezolid (Zyvox) 600 mg BID PO Last administered on 12/24/20at 22:38; Start 12/24/20 at 11:00; Stop 12/25/20 at 10:48; Status DC Magnesium Sulfate 50 ml @ 25 mls/hr PRN DAILY PRN IV for Mag < 1.7 on am labs; Start 12/25/20 at 09:15 Dextrose (Dextrose 50%-Water Syringe) 25 gm STK-MED ONCE IV ; Start 12/25/20 at 22:23; Stop 12/25/20 at 22:23; Status DC Furosemide (Lasix) 40 mg 1X ONCE IVP Last administered on 12/25/20at 23:16; Start 12/25/20 at 23:00; Stop 12/25/20 at 23:05; Status DC Sodium Chloride 1,000 ml @ 1,000 mls/hr Q1H PRN IV hypotension; Start 12/26/20 at 08:45; Stop 12/26/20 at 14:44; Status DC Albumin Human 200 ml @ 200 mls/hr 1X ONCE IV Last administered on 12/27/20at 08:58; Start 12/26/20 at 08:45; Stop 12/26/20 at 09:44; Status DC Sodium Chloride 1,000 ml @ 400 mls/hr Q2H30M PRN IV PATENCY; Start 12/26/20 at 08:45; Stop 12/26/20 at 20:44; Status DC Info (PHARMACY MONITORING -- do not chart) 1 each PRN DAILY PRN MC SEE COMMENTS; Start 12/26/20 at 08:45 Pantoprazole Sodium (PROTONIX VIAL for IV PUSH) 40 mg DAILYAC IVP ; Start 12/27/20 at 07:30 Dextrose (Dextrose 50%-Water Syringe) 25 gm STK-MED ONCE IV ; Start 12/26/20 at 10:54; Stop 12/26/20 at 10:55; Status DC Cefazolin Sodium (Ancef) 1 gm Q24H IVP Last administered on 12/26/20at 15:29; Start 12/26/20 at 16:00 Dextrose (Dextrose 50%-Water Syringe) 25 gm STK-MED ONCE IV ; Start 12/25/20 at 22:30; Stop 12/26/20 at 14:10; Status DC Norepinephrine Bitartrate 8 mg/ Dextrose 258 ml @ 18.286 mls/ hr CONT PRN IV PER PROTOCOL Last administered on 12/27/20at 03:48; Start 12/26/20 at 19:15 Fentanyl Citrate 30 ml @ 0 mls/hr CONT PRN IV SEE PROTOCOL Last administered on 12/26/20at 20:00; Start 12/26/20 at 19:15 Midazolam HCl 100 ml @ 1 mls/hr CONT PRN IV SEE PROTOCOL Last administered on 12/26/20at 20:00; Start 12/26/20 at 19:15 Vecuronium [place] (Norcuron Bolus) 6 mg PRN 1X PRN IV VENT INDUCTION; Start 12/26/20 at 19:15; Stop 12/27/20 at 19:14 Glycerin/ Hypromellose/ Polyethylene (Artificial Tears) 1 drop PRN Q1HR PRN OU DRY EYE; Start 12/26/20 at 19:15 Dexmedetomidine HCl 400 mcg/ Sodium Chloride 100 ml @ 4.725 mls/ hr CONT PRN IV PER PROTOCOL; Start 12/26/20 at 19:15 Midazolam HCl (Versed) 5 mg PRN 1X PRN IVP VENT INDUCTION; Start 12/26/20 at 19:15; Stop 12/27/20 at 19:14 Sodium Chloride 500 ml @ 500 mls/hr 1X PRN PRN IV SEE COMMENTS; Start 12/26/20 at 19:15 Atropine Sulfate (ATROPINE 0.5mg SYRINGE) 0.5 mg PRN Q5MIN PRN IV SEE COMMENTS; Start 12/26/20 at 19:15 Famotidine (Pepcid Vial) 20 mg BID IVP Last administered on 12/26/20at 21:22; Start 12/26/20 at 21:00 Ringer's Solution 1,000 ml @ 100 mls/hr Q10H IV Last administered on 12/27/20at 07:09; Start 12/26/20 at 19:30 Etomidate (Amidate) 20 mg STK-MED ONCE IV ; Start 12/26/20 at 19:19; Stop 12/26/20 at 19:19; Status DC Succinylcholine Chloride (Anectine) 200 mg 1X ONCE IV Last administered on 12/26/20at 19:38; Start 12/26/20 at 21:15; Stop 12/26/20 at 21:16; Status DC Etomidate (Amidate) 20 mg 1X ONCE IV Last administered on 12/26/20at 19:38; Start 12/26/20 at 21:15; Stop 12/26/20 at 21:16; Status DC Dextrose (Dextrose 50%-Water Syringe) 12.5 gm PRN Q15MIN PRN IV SEE COMMENTS Last administered on 12/27/20at 07:30; Start 12/27/20 at 07:30 Sodium Chloride 1,000 ml @ 1,000 mls/hr Q1H PRN IV hypotension; Start 12/27/20 at 08:15; Stop 12/27/20 at 14:14 Albumin Human 200 ml @ 200 mls/hr 1X PRN PRN IV Hypotension; Start 12/27/20 at 08:15; Stop 12/27/20 at 14:14 Sodium Chloride 1,000 ml @ 400 mls/hr Q2H30M PRN IV PATENCY; Start 12/27/20 at 08:15; Stop 12/27/20 at 20:14 Info (PHARMACY MONITORING -- do not chart) 1 each PRN DAILY PRN MC SEE COMMENTS; Start 12/27/20 at 08:15 Dextrose (Dextrose 50%-Water Syringe) 25 gm STK-MED ONCE IV ; Start 12/26/20 at 11:00; Stop 12/27/20 at 08:58; Status DC Phytonadione (Vitamin K Ampule) 10 mg 1X ONCE SQ ; Start 12/27/20 at 09:45; Stop 12/27/20 at 09:49; Status DC Active Scripts Active Nafcillin 2 Gm/ 100 Ml Inj (Nafcillin In Dextrose,Iso-Osm) 2 Gm/100 Ml Froz.piggy 2 Gm IV Q4HRS 30 Days Reported Acetaminophen 325 Mg Tablet 650 Mg PO QHS Aspirin 81 Mg Tab.chew 1 Tab PO DAILY Men's Multivitamin Tablet (Multivit-Min/Folic/Vit K/Lycop) 1 Each Tablet 1 Each PO DAILY Pravastatin Sodium 80 Mg Tablet 1 Tab PO DAILY Lasix (Furosemide) 40 Mg Tablet 1 Tab PO DAILY Colace (Docusate Sodium) 100 Mg Capsule 1 Cap PO PRN BID PRN Vitals/I & O Vital Sign - Last 24 Hours 12/26/20 12/26/20 12/26/20 12/26/20 15:00 19:00 19:15 19:20 Temp 97.4 97.4 Pulse 60 60 60 60 Resp 23 34 40 40 B/P (MAP) 96/51 (66) 73/38 73/38 79/42 Pulse Ox 90 97 96 93 O2 Delivery Nasal Cannula NonRebreather Mask NonRebreather Mask NonRebreather Mask O2 Flow Rate 10.0 15.0 15.0 15.0 12/26/20 12/26/20 12/26/20 12/26/20 19:25 19:30 19:40 19:45 Pulse 60 60 60 Resp 40 40 20 B/P (MAP) 81/35 91/53 79/41 Pulse Ox 93 93 100 99 O2 Delivery NonRebreather Mask NonRebreather Mask Ventilator Ventilator O2 Flow Rate 15.0 15.0 12/26/20 12/26/20 12/26/20 12/26/20 20:00 20:00 20:00 20:15 Temp 98.0 98.0 Pulse 60 60 Resp 20 20 20 B/P (MAP) 106/58 119/68 Pulse Ox 99 99 O2 Delivery Mechanical Ventilator Ventilator Ventilator O2 Flow Rate 12/26/20 12/26/20 12/26/20 12/26/20 20:30 20:30 20:45 21:00 Pulse 64 60 60 Resp 20 24 24 24 B/P (MAP) 109/62 131/63 130/66 Pulse Ox 100 100 100 100 O2 Delivery Ventilator Ventilator Ventilator Ventilator 12/26/20 12/26/20 12/26/20 12/26/20 21:00 21:15 21:30 21:45 Pulse 60 60 60 Resp 24 24 24 B/P (MAP) 143/78 137/70 119/56 Pulse Ox 100 100 100 100 O2 Delivery Ventilator Ventilator Ventilator Ventilator 12/26/20 12/26/20 12/26/20 12/26/20 22:00 22:15 22:30 22:45 Pulse 62 60 60 60 Resp 24 24 24 24 B/P (MAP) 118/53 140/61 142/66 131/49 Pulse Ox 100 100 100 100 O2 Delivery Ventilator Ventilator Ventilator Ventilator 12/26/20 12/26/20 12/26/20 12/26/20 23:00 23:30 23:55 23:59 Temp 97.9 97.9 Pulse 62 60 60 Resp 24 24 24 B/P (MAP) 125/54 123/60 122/61 Pulse Ox 100 100 100 100 O2 Delivery Ventilator Ventilator Ventilator Ventilator 12/27/20 12/27/20 12/27/20 12/27/20 00:00 00:45 01:00 01:15 Pulse 60 60 60 Resp 24 24 24 B/P (MAP) 73/41 63/37 64/41 Pulse Ox 100 100 100 O2 Delivery Mechanical Ventilator Ventilator Ventilator Ventilator 12/27/20 12/27/20 12/27/20 12/27/20 01:30 01:45 02:00 02:15 Pulse 60 60 60 60 Resp 24 24 24 24 B/P (MAP) 102/58 160/80 162/71 121/61 Pulse Ox 100 100 100 100 O2 Delivery Ventilator Ventilator Ventilator Ventilator 12/27/20 12/27/20 12/27/20 12/27/20 02:35 03:00 04:00 04:00 Temp 98.7 98.7 Pulse 60 60 Resp 24 24 B/P (MAP) 147/63 121/60 Pulse Ox 100 100 100 O2 Delivery Ventilator Ventilator Mechanical Ventilator Ventilator 12/27/20 12/27/20 12/27/20 12/27/20 05:00 05:45 06:00 06:00 Pulse 68 62 Resp 24 24 B/P (MAP) 120/64 125/62 Pulse Ox 100 100 99 O2 Delivery Ventilator Ventilator Ventilator Mechanical Ventilator 12/27/20 07:22 Pulse Ox 100 O2 Delivery Ventilator Intake and Output 12/26/20 12/26/20 12/27/20 15:00 23:00 07:00 Intake Total 1209 ml Output Total 0 ml 300 ml Balance 0 ml 909 ml Justicifation of Admission Dx: Justifications for Admission: Justification of Admission Dx: N/A JUDI CORNEJO MD Dec 27, 2020 09:58
--- NOTE | 2020-12-27 10:18 | PDOC ---
Date of Service: DATE: 12/27/20 TIME: 10:08 Objective: Objective: Transferred to ICU yesterday and intubated. D/w nurse - some watery coffee-ground material from OG, will receive pRBCs with HD today. Called by nurse after I left the unit - INR elevated - gave verbal order for FFP and vit K. Vital Signs: Vital Signs Date Time Temp Pulse Resp B/P (MAP) Pulse Ox O2 Delivery O2 Flow Rate FiO2 12/27/20 09:59 98.6 68 20 106/54 98.6 12/27/20 07:22 100 Ventilator 12/26/20 20:00 Labs: Laboratory Tests Test 12/26/20 10:47 12/26/20 11:09 12/27/20 07:53 Glucose (Fingerstick) 62 mg/dL (70-99) 127 mg/dL (70-99) 99 mg/dL (70-99) Imaging: Abd US IMPRESSION: 1. Limited evaluation secondary to overlying bowel gas. 2. Hepatic steatosis. Normal sonographic appearance the gallbladder 3. No hydronephrosis. CXR IMPRESSION: 1. Satisfactory positions of the endotracheal and enteric tubes. 2. Similar diffuse bilateral pulmonary infiltrates. 3. Unchanged small right and trace left pleural effusions. KUB IMPRESSION: 1. Satisfactory positions of the endotracheal and enteric tubes. 2. Similar diffuse bilateral pulmonary infiltrates. 3. Unchanged small right and trace left pleural effusions. PE: GEN: intubated LUNGS: vent, clear HEART: RRR ABD: soft, non-distended EXTREM: edematous NEURO/PSYCH: sedated A/P: Resp failure Abnormal LFTs (suspect hepatic congestion/CHF), coagulopathy, GUERO on HD, hypoalbuminemia Anemia - not iron or B12 deficient - Hgb dipped below 7 today MSSA bacteremia/right knee septic arthritis s/p I&D -- Transfusions as above. 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 Defer nutrition (tube feeds, TPN, etc) to primary. Justicifation of Admission Dx: Justifications for Admission: Justification of Admission Dx: N/A DEE-PAMELA ORDONEZ Dec 27, 2020 10:18
--- NOTE | 2020-12-27 10:24 | PDOC ---
LILLIANA AZEVEDO IRRIGATION INSTALLATION SPECIALIST 12/27/20 1024: CARDIO Progress Notes Date and Time Date of Service 12/27/20 Time of Evaluation 1215 Subjective Subjective: Other (intubated ) Comments: patient decompensated further overnight, transferred to ICU and intubated Vitals Vitals Vital Signs Date Time Temp Pulse Resp B/P (MAP) Pulse Ox O2 Delivery O2 Flow Rate FiO2 12/27/20 09:59 98.6 68 20 106/54 98.6 12/27/20 07:22 100 Ventilator 12/26/20 20:00 Weight Weight [ ] Input and Output Intake and Output Intake and Output 12/27/20 07:00 Intake Total 1209 ml Output Total 300 ml Balance 909 ml IV Total 1209 ml Output Urine Total 0 ml Gastric Drainage Total 300 ml Laboratory Labs Laboratory Tests Test 12/26/20 10:47 12/26/20 11:09 12/26/20 13:00 12/26/20 20:30 Glucose (Fingerstick) 62 mg/dL (70-99) 127 mg/dL (70-99) Ammonia 17 mcmol/L (11-34) O2 Saturation 99 % (92-99) Arterial Blood pH 7.26 (7.35-7.45) Arterial Blood pCO2 at Patient Temp 62 mmHg (35-46) Arterial Blood pO2 at Patient Temp 156 mmHg (65-108) Arterial Blood HCO3 27 mmol/L (21-28) Arterial Blood Base Excess 0 mmol/L (-3-3) FiO2 100 Test 12/27/20 04:45 12/27/20 04:50 12/27/20 07:25 12/27/20 07:53 White Blood Count 14.7 x10^3/uL (4.0-11.0) Red Blood Count 2.21 x10^6/uL (4.30-5.70) Hemoglobin 6.8 g/dL (13.0-17.5) Hematocrit 21.2 % (39.0-53.0) Mean Corpuscular Volume 96 fL (79-100) Mean Corpuscular Hemoglobin 31 pg (25-35) Mean Corpuscular Hemoglobin Concent 32 g/dL (31-37) Red Cell Distribution Width 22.3 % (11.5-14.5) Platelet Count 108 x10^3/uL (140-400) Sodium Level 136 mmol/L (136-145) Potassium Level 4.0 mmol/L (3.5-5.1) Chloride Level 98 mmol/L (98-107) Carbon Dioxide Level 26 mmol/L (21-32) Anion Gap 12 (6-14) Blood Urea Nitrogen 21 mg/dL (8-26) Creatinine 3.5 mg/dL (0.7-1.3) Estimated GFR (Cockcroft-Gault) 16.8 Glucose Level 51 mg/dL (70-99) Calcium Level 7.5 mg/dL (8.5-10.1) Phosphorus Level 2.8 mg/dL (2.6-4.7) Magnesium Level 2.0 mg/dL (1.8-2.4) Total Bilirubin 3.8 mg/dL (0.2-1.0) Direct Bilirubin 1.6 mg/dL (0.0-0.2) Aspartate Amino Transf (AST/SGOT) 1815 U/L (15-37) Alanine Aminotransferase (ALT/SGPT) 220 U/L (16-63) Alkaline Phosphatase 160 U/L (46-116) Total Protein 6.6 g/dL (6.4-8.2) Albumin 1.7 g/dL (3.4-5.0) O2 Saturation 98 % (92-99) Arterial Blood pH 7.49 (7.35-7.45) Arterial Blood pCO2 at Patient Temp 34 mmHg (35-46) Arterial Blood pO2 at Patient Temp 105 mmHg (65-108) Arterial Blood HCO3 25 mmol/L (21-28) Arterial Blood Base Excess 2 mmol/L (-3-3) FiO2 60 Glucose (Fingerstick) 99 mg/dL (70-99) Test 12/27/20 08:35 Prothrombin Time 40.0 SEC (11.7-14.0) Prothromb Time International Ratio 4.3 (0.8-1.1) Microbiology Micro Microbiology 12/22/20 Gram Stain Evaluation - Final, Complete 12/22/20 Respiratory Culture - Final, Complete 12/07/20 Urine Culture - Final, Complete 12/05/20 Blood Culture - Final, Complete NO GROWTH AFTER 5 DAYS 12/04/20 Gram Stain - Final, Complete 12/04/20 Aerobic and Anaerobic Culture - Final, Complete Review of Systems Constitutional: yes: unresponsive Ears/Nose/Throat: Yes: no symptom reported Eyes: Yes: no symptom reported Pulmonary: Yes no symptom reported Gastrointestional: Yes: no symptom reported Genitourinary: Yes: no symptom reported Musculoskeletal: Yes: no symptom reported Skin: Yes no symptom reported Psychiatric/Neurological: Yes: no symptom reported Endocrine: Yes: no symptom reported Physical Exam HEENT: Neck Supple W Full Motion Chest: Symmetric LUNGS: Other (mechanical vent ) Heart: other (intermittent V paced with underlying AFIB. rate controlled ) Abdomen: Other (soft ) Extremities: No Edema Neurology: other (sedated ) Assessment Assessment 1. Weakness, mechanical fall with right knee effusion: s/p I & D 2. Sepsis, MSSA bacteremia: no intracardiac vegetation per SOO. 3. SSS, s/p PPM. generator change (BBE) 11/01/2020. normal function 4. CAD: clinically stable 5. Permanent AFIB: rate controlled with intermittent v-pacing. 6. Coagulopathy due to warfarin; OAC held. 7. Acute on chronic diastolic CHF; echo with normal EF and WM. 8. Acute respiratory failure secondary to above; s/p intubation 9. GUERO; HD initiated 10. HTN: presently hypotensive requiring pressor support 11. HLP: on statin 12. Anemia; s/p transfusion this morning 13. Transaminitis, coagulopathy, thrombocytopenia Recommendations Fluid offloading via HD Poor candidate for OAC given persistent anemia Hold ASA with anemia, coagulopathy, thrombocytopenia Hold metoprolol as warranted for hypotension Ongoing treatment of sepsis/bacteremia per ID team Lung optimization as per pulmonary Consider outpatient referral of [facility] Supportive care Justicifation of Admission Dx: Justifications for Admission: Justification of Admission Dx: N/A IRMA GONZALES MD 12/28/20 1147: CARDIO Progress Notes Assessment Assessment Patient seen and examined 12/27/2020. Agree with STEAMBLASTER's assessment plan. Patient intubated for acute respiratory failure. Continue vent management per pulmonary team. Continue fluid removal with hemodialysis for acute on chronic diastolic heart failure. Permanent atrial fibrillation rate controlled. Continue treatment of sepsis/bacteremia per ID team. SSS s/p PPM stable clinically He is poor candidate for long-term anticoagulation -consider outpatient referral for [facility] LILLIANA AZEVEDO APRN Dec 27, 2020 10:24 IRMA GONZALES MD Dec 28, 2020 11:47
--- NOTE | 2020-12-27 10:39 | PDOC ---
Infectious Disease Note Subjective: Subjective Patient t was transferred to ICU yesterday due to worsening mental status Currently intubated on pressors Afebrile Undergoing dialysis Undergoing 1 unit of PRBC Has mild thrombocytopenia d/w RN Vital Signs: Vital Signs Vital Signs Date Time Temp Pulse Resp B/P (MAP) Pulse Ox O2 Delivery O2 Flow Rate FiO2 12/27/20 09:59 98.6 68 20 106/54 98.6 12/27/20 07:22 100 Ventilator 12/26/20 20:00 Physical Exam: PHYSICAL EXAM GENERAL: Intubated/sedated HEENT: Normocephalic, atraumatic. Anicteric. NECK: Right IJ placed 11 to, chest wall has right HDC LUNGS: Decreased HEART: S1, S2, systolic murmur present. Pacemaker site looks okay. PPM incision site dry scab no redness no fluctuance ABDOMEN: Soft, nontender, nondistended. EXTREMITIES: Right knee prepatellar swelling, erythema and warmth are improving cool,mottled digits DERMATOLOGIC: No generalized rash NEUROLOGIC: Unable to assess Medications: Inpatient Meds: Medications reviewed. Labs: Lab Laboratory Tests Test 12/26/20 10:47 12/26/20 11:09 12/26/20 13:00 12/26/20 20:30 Glucose (Fingerstick) 62 mg/dL (70-99) 127 mg/dL (70-99) Ammonia 17 mcmol/L (11-34) O2 Saturation 99 % (92-99) Arterial Blood pH 7.26 (7.35-7.45) Arterial Blood pCO2 at Patient Temp 62 mmHg (35-46) Arterial Blood pO2 at Patient Temp 156 mmHg (65-108) Arterial Blood HCO3 27 mmol/L (21-28) Arterial Blood Base Excess 0 mmol/L (-3-3) FiO2 100 Test 12/27/20 04:45 12/27/20 04:50 12/27/20 07:25 12/27/20 07:53 White Blood Count 14.7 x10^3/uL (4.0-11.0) Red Blood Count 2.21 x10^6/uL (4.30-5.70) Hemoglobin 6.8 g/dL (13.0-17.5) Hematocrit 21.2 % (39.0-53.0) Mean Corpuscular Volume 96 fL (79-100) Mean Corpuscular Hemoglobin 31 pg (25-35) Mean Corpuscular Hemoglobin Concent 32 g/dL (31-37) Red Cell Distribution Width 22.3 % (11.5-14.5) Platelet Count 108 x10^3/uL (140-400) Sodium Level 136 mmol/L (136-145) Potassium Level 4.0 mmol/L (3.5-5.1) Chloride Level 98 mmol/L (98-107) Carbon Dioxide Level 26 mmol/L (21-32) Anion Gap 12 (6-14) Blood Urea Nitrogen 21 mg/dL (8-26) Creatinine 3.5 mg/dL (0.7-1.3) Estimated GFR (Cockcroft-Gault) 16.8 Glucose Level 51 mg/dL (70-99) Calcium Level 7.5 mg/dL (8.5-10.1) Phosphorus Level 2.8 mg/dL (2.6-4.7) Magnesium Level 2.0 mg/dL (1.8-2.4) Total Bilirubin 3.8 mg/dL (0.2-1.0) Direct Bilirubin 1.6 mg/dL (0.0-0.2) Aspartate Amino Transf (AST/SGOT) 1815 U/L (15-37) Alanine Aminotransferase (ALT/SGPT) 220 U/L (16-63) Alkaline Phosphatase 160 U/L (46-116) Total Protein 6.6 g/dL (6.4-8.2) Albumin 1.7 g/dL (3.4-5.0) O2 Saturation 98 % (92-99) Arterial Blood pH 7.49 (7.35-7.45) Arterial Blood pCO2 at Patient Temp 34 mmHg (35-46) Arterial Blood pO2 at Patient Temp 105 mmHg (65-108) Arterial Blood HCO3 25 mmol/L (21-28) Arterial Blood Base Excess 2 mmol/L (-3-3) FiO2 60 Glucose (Fingerstick) 99 mg/dL (70-99) Test 12/27/20 08:35 Prothrombin Time 40.0 SEC (11.7-14.0) Prothromb Time International Ratio 4.3 (0.8-1.1) Micro Chest x-ray IMPRESSION: 1. Increase in diffuse mixed interstitial and alveolar infiltrate and small pleural effusions. 2. Stable cardiomegaly and cardiac pacemaker. 3. Right internal jugular catheter with the tip overlying expected position of the superior cavoatrial junction. Objective: Assessment: Patient now with multiorgan failure Persistent methicillin sensitive staph aureus bacteremia 4 of 4 bottles present on admission 11/28/2020, November 30 and December 02 History of PPM.H/O recent battery exchange. SOO negative for vegetation or thrombus Rt deering joint MSSA septic arthritis status post synovial aspirate WBC 30,000 RBC 66,000 Status post irrigation debridement of right knee joint and prepatellar bursa on December 04, 2020 Cultures positive for MSSA Sepsis from Gram-positive bacteremia. ImprovED Leukocytosis Generalized weakness. History of fall. Hypokalemia.Hyponatremia. Anemia History of atrial fibrillation. CHF Hypertension. Coagulopathy Abnormal LFTs likely shock liver GUERO urine eosinophil negative Respiratory failure status post intubation on 12/26/2020/appears multifactorial ARDS/ Nausea and vomiting which was improving Plan: Plan of Care Will change his regimen to daptomycin and meropenem, renal dosing Restart Zyvox for empiric lung penetration, monitor platelets closely Has been on nafcillin, Zyvox, cefepime and cefazolin Cardiology and renal team following. Pulmonary team consulted Monitor labs and cultures Wound care as directed by orthopedics Overall long-term prognosis is very poor Continue supportive care. Discussed with nursing staff ELIZABETH BALLESTEROS MD Dec 27, 2020 10:39
--- NOTE | 2020-12-27 10:42 | RAD ---
Single AP view of the chest. Comparison: 12/26/2020. Indication: Central line placement Findings: New right internal jugular central line is placed cranially to the right internal jugular hemodialysi s catheter. Central line is seen with the tip projecting over the mid SVC. Left subclavian pacemaker endotracheal tube and nasogastric tubes are stable. The heart is enlarged but stable. There is no pn eumothorax or effusion. Diffuse interstitial opacities are slightly improved. Impression: 1. Support devices described above. New right internal jugular central line is stable. 2. Persistent but improving diffuse interstitial opacities. Suggest pulmonary edema or atypical infec tion. Electronically signed by: Arsalan Magallanes MD (12/27/2020 10:40 AM) [id number]
[2020-12-27] MEDS ORDERED: ASPIRIN CHEWABLE 81 MG TABLET. PO ONE (10:45)
--- NOTE | 2020-12-27 10:58 | PDOC ---
DATE OF SERVICE DATE: 12/27/20 TIME: 10:41 SUBJECTIVE ROS Transferred to ICU yesterday due to worsening mental status;Currently intubated on pressors Seen during dialysis, BP's low - Receiving PRBC and Albumin OBJECTIVE Vital Signs Vital Signs Date Time Temp Pulse Resp B/P (MAP) Pulse Ox O2 Delivery O2 Flow Rate FiO2 12/27/20 09:59 98.6 68 20 106/54 98.6 12/27/20 07:22 100 Ventilator 12/26/20 20:00 I & 0 Intake and Output 12/27/20 07:00 Intake Total 1209 ml Output Total 300 ml Balance 909 ml IV Total 1209 ml Output Urine Total 0 ml Gastric Drainage Total 300 ml PHYSICAL EXAM Physical Exam GENERAL: Intubated/sedated HEENT: Normocephalic, atraumatic. Anicteric. NECK: right HDC LUNGS: Decreased at bases HEART: S1, S2, systolic murmur present. Pacemaker + ABDOMEN: Soft, nontender, nondistended. EXTREMITIES: Right knee prepatellar swelling, erythema and warmth are improving cool,mottled digits DERMATOLOGIC: No generalized rash NEUROLOGIC: Unable to assess, sedated No Mejia DIAGNOSIS/ASSESSMENT Assessment & Plan GUERO - ATN 2/ 2 Hypotension/ Sepsis Olig[place] Anuric- Requiring Dialysis 1st on 12/12 ; currently MWF schedule ; Dialysis today for Fluid removal .Tolerating well , Continue as ordered. Discussed with CAROL Renal US unremarkable. Baseline normal Cr on 11/30 and UA was unremarkable ; Bladder scan done in ICU- Anuric currently . No Renal Recovery supportive care , strict I/O Access Currently has Temp HDC . Acute hypoxemic respiratory failure, multifactorial- Transferred to ICU, Intubated, On MV . Abnormal x-ray compatible with acute respiratory distress syndrome, possible pneumonia. Anemia required PRBC. continue LIDIA . Hgb < 7 today, Receiving PRBC during dialysis Persistent methicillin sensitive staph aureus bacteremia 4 of 4 bottles present on admission 11/28/2020 .History of PPM.H/O recent battery exchange. SOO negative for vegetation or thrombus [place]t [place] MSSA septic arthritis S/P synovial aspirate ,Status post irrigation debridement of right knee joint and prepatellar bursa on December 04, 2020.Cultures positive for MSSA History of PPM.H/O recent battery exchange. History of atrial fibrillation. COMMENT/RELEVANT DATA Meds Current Medications Medications (Trade) Dose Ordered Sig/Gia Start Time Stop Time Status Last Admin Dose Admin Acetaminophen (Tylenol) 650 mg QHS 11/29/20 21:00 12/24/20 22:38 650 MG Acetaminophen/ Hydrocodone Bitart (Lortab 10/325) 1 tab PRN Q4HRS PRN 12/05/20 20:00 12/24/20 14:02 1 TAB Acetaminophen/ Hydrocodone Bitart (Lortab 5/325) 1 tab PRN Q4HRS PRN 11/28/20 22:45 12/05/20 19:50 DC 12/05/20 17:38 1 TAB Albumin Human 200 ml @ 200 mls/hr 1X PRN PRN 12/27/20 08:15 12/27/20 14:14 Aspirin (Aspirin Chewable) 81 mg DAILY 11/30/20 09:00 12/19/20 14:26 DC 12/19/20 12:40 81 MG Aspirin (Ecotrin) 81 mg [id number] 12/23/20 13:00 12/27/20 10:33 DC 12/24/20 08:40 81 MG Atorvastatin Calcium (Lipitor) 40 mg QHS 12/19/20 21:00 12/24/20 22:38 40 MG Atropine Sulfate (ATROPINE 0.5mg SYRINGE) 0.5 mg PRN Q5MIN PRN 12/26/20 19:15 Azithromycin 250 ml @ 250 mls/hr DAILY ONCE 11/30/20 09:00 11/30/20 09:59 UNV Azithromycin 500 mg/Sodium Chloride 250 ml @ 250 mls/hr Q24H 11/29/20 15:00 11/29/20 13:50 DC Benzocaine (Hurricaine One) 1 spray STK-MED ONCE 12/05/20 10:06 12/05/20 10:07 DC Carvedilol (Coreg) 3.125 mg BIDWMEALS 12/01/20 12:00 12/05/20 20:11 DC 12/03/20 16:39 3.125 MG Cefazolin Sodium (Ancef) 1 gm Q24H 12/26/20 16:00 12/27/20 10:37 DC 12/26/20 15:29 1 GM Cefazolin Sodium/ Dextrose 50 ml @ As Directed STK-MED ONCE 12/23/20 13:57 12/23/20 13:58 DC Cefepime HCl (Maxipime) 1 gm Q24H 12/22/20 11:00 12/26/20 11:56 DC 12/25/20 12:32 1 GM Ceftriaxone Sodium (Rocephin) 2 gm Q24H 11/29/20 14:00 12/01/20 09:19 DC 11/30/20 13:21 2 GM Daptomycin 500 mg/ Sodium Chloride 50 ml @ 100 mls/hr Q48H 12/13/20 10:00 12/26/20 11:55 DC 12/25/20 17:33 100 MLS/HR Daptomycin 580 mg/ Sodium Chloride 50 ml @ 100 mls/hr Q24H 12/01/20 07:30 12/01/20 09:19 DC 12/01/20 08:52 100 MLS/HR Dexamethasone Sodium Phosphate (Decadron) 4 mg STK-MED ONCE 12/04/20 11:26 12/04/20 11:26 DC Dexmedetomidine HCl 400 mcg/ Sodium Chloride 100 ml @ 4.725 mls/ hr CONT PRN 12/26/20 19:15 Dextrose (Dextrose 50%-Water Syringe) 25 gm STK-MED ONCE 12/26/20 11:00 12/27/20 08:58 DC Docusate Sodium (Colace) 100 mg PRN BID PRN 12/17/20 17:45 Epoetin Krishna-epbx (RETACRIT for ESRD PTS) 10,000 unit MoWeFr@2100 12/14/20 21:00 12/26/20 21:29 10,000 UNIT Etomidate (Amidate) 20 mg 1X ONCE 12/26/20 21:15 12/26/20 21:16 DC 12/26/20 19:38 20 MG Famotidine (Pepcid Vial) 20 mg BID 12/26/20 21:00 12/27/20 10:19 DC 12/27/20 09:00 20 MG Fentanyl Citrate 30 ml @ 0 mls/hr CONT PRN 12/26/20 19:15 12/26/20 20:00 2.5 MLS/HR Fentanyl Citrate (Fentanyl 2ml Vial) 100 mcg 1X ONCE 12/23/20 14:00 12/23/20 14:06 DC 12/23/20 14:00 50 MCG Furosemide (Lasix) 40 mg 1X ONCE 12/25/20 23:00 12/25/20 23:05 DC 12/25/20 23:16 40 MG Glycerin/ Hypromellose/ Polyethylene (Artificial Tears) 1 drop PRN Q1HR PRN 12/26/20 19:15 Hydromorphone HCl (Dilaudid) 0.5 mg PRN Q10MIN PRN 12/04/20 09:30 12/05/20 09:29 DC Influenza Virus Vaccine Quadrival (Flulaval Quad [id number] Syringe) 0.5 ml ONCE ONCE 11/29/20 09:00 11/29/20 09:01 DC 11/29/20 10:06 0.5 ML Info (PHARMACY MONITORING -- do not chart) 1 each PRN DAILY PRN 12/27/20 08:15 Lactobacillus Rhamnosus (Culturelle) 1 cap BID 11/29/20 21:00 12/24/20 22:38 1 CAP Lidocaine HCl (Buffered Lidocaine 1%) 4 ml 1X ONCE 12/12/20 13:15 12/12/20 13:18 DC 12/12/20 13:11 4 ML Lidocaine HCl (Lidocaine 1% 20ml Vial) 10 ml 1X ONCE 12/01/20 16:00 12/01/20 16:01 DC Lidocaine HCl (Lidocaine Pf 2% Vial) 5 ml STK-MED ONCE 12/04/20 10:43 12/04/20 10:43 DC Lidocaine HCl (Viscous Lidocaine) 15 ml STK-MED ONCE 12/05/20 10:06 12/05/20 10:06 DC Lidocaine HCl (Xylocaine 2% Topical 30gm Tube) 30 hiro STK-MED ONCE 12/05/20 10:06 12/05/20 10:06 DC Lidocaine/ Epinephrine (LIDOCAINE 1%-EPI 1:100,000 Multi-Dose) 20 ml 1X ONCE 12/23/20 14:15 12/23/20 14:16 DC 12/23/20 14:15 8 ML Linezolid (Zyvox) 600 mg BID 12/24/20 11:00 12/25/20 10:48 DC 12/24/20 22:38 600 MG Magnesium Sulfate 50 ml @ 25 mls/hr PRN DAILY PRN 12/25/20 09:15 Metoprolol Succinate (Toprol Xl) 25 mg DAILY 12/09/20 09:00 12/25/20 10:43 DC 12/24/20 08:41 25 MG Midazolam HCl (Versed) 5 mg PRN 1X PRN 12/26/20 19:15 12/27/20 19:14 Morphine Sulfate (Morphine Sulfate) 1 mg PRN Q10MIN PRN 12/04/20 09:30 12/05/20 09:29 DC Nafcillin Sodium 2 gm/Dextrose 100 ml @ 200 mls/hr Q4HRS 12/01/20 10:00 12/21/20 08:19 DC 12/21/20 04:11 200 MLS/HR Norepinephrine Bitartrate 8 mg/ Dextrose 258 ml @ 18.286 mls/ hr CONT PRN 12/26/20 19:15 12/27/20 10:21 34.743 MLS/HR Ondansetron HCl (Zofran) 4 mg STK-MED ONCE 12/04/20 11:26 12/04/20 11:26 DC Pantoprazole Sodium (PROTONIX VIAL for IV PUSH) 40 mg DAILYAC 12/27/20 07:30 12/27/20 07:30 40 MG Pantoprazole Sodium (Protonix) 40 mg DAILYAC 12/20/20 09:15 12/26/20 10:17 DC 12/24/20 06:15 40 MG Phenylephrine HCl (PHENYLEPHRINE in 0.9% NACL PF) 1 mg STK-MED ONCE 12/04/20 10:43 12/04/20 10:43 DC Phytonadione (Vitamin K Ampule) 10 mg 1X ONCE 12/27/20 09:45 12/27/20 09:49 DC Polyethylene Glycol (miraLAX PACKET) 17 gm PRN DAILY PRN 12/03/20 19:00 12/06/20 09:16 17 GM Potassium Chloride/Water 100 ml @ 50 mls/hr 1X ONCE 11/28/20 14:45 11/28/20 16:44 DC 11/28/20 16:20 50 MLS/HR Potassium Chloride (Klor-Con) 20 meq 1X ONCE 12/10/20 19:00 12/10/20 19:01 DC 12/10/20 18:52 20 MEQ Prochlorperazine Edisylate (Compazine) 5 mg PACU PRN PRN 12/04/20 09:30 12/05/20 09:29 DC Propofol (Diprivan) 200 mg STK-MED ONCE 12/05/20 09:29 12/05/20 09:30 DC Ringer's Solution 1,000 ml @ 100 mls/hr Q10H 12/26/20 19:30 12/27/20 07:09 100 MLS/HR Sevoflurane (Ultane) 60 ml STK-MED ONCE 12/04/20 11:14 12/04/20 11:14 DC Sodium Chloride 1,000 ml @ 400 mls/hr Q2H30M PRN 12/27/20 08:15 12/27/20 20:14 Sodium Chloride (Normal Saline Flush) 10 ml 1X PRN PRN 12/23/20 10:15 12/24/20 10:14 DC Sodium Chloride (Saline Mist Nasal) 1 hiro PRN Q1HR PRN 12/02/20 20:45 12/20/20 23:52 1 HIRO Succinylcholine Chloride (Anectine) 200 mg 1X ONCE 12/26/20 21:15 12/26/20 21:16 DC 12/26/20 19:38 200 MG Vecuronium [place] (Norcuron Bolus) 6 mg PRN 1X PRN 12/26/20 19:15 12/27/20 19:14 Warfarin Sodium (Coumadin) 3.75 mg DAILY 11/30/20 09:00 UNV Zolpidem Tartrate (Ambien) 5 mg PRN QHS PRN 12/05/20 20:00 12/23/20 22:11 5 MG Lab Laboratory Tests Test 12/26/20 10:47 12/26/20 11:09 12/26/20 13:00 12/26/20 20:30 Glucose (Fingerstick) 62 mg/dL (70-99) 127 mg/dL (70-99) Ammonia 17 mcmol/L (11-34) O2 Saturation 99 % (92-99) Arterial Blood pH 7.26 (7.35-7.45) Arterial Blood pCO2 at Patient Temp 62 mmHg (35-46) Arterial Blood pO2 at Patient Temp 156 mmHg (65-108) Arterial Blood HCO3 27 mmol/L (21-28) Arterial Blood Base Excess 0 mmol/L (-3-3) FiO2 100 Test 12/27/20 04:45 12/27/20 04:50 12/27/20 07:25 12/27/20 07:53 White Blood Count 14.7 x10^3/uL (4.0-11.0) Red Blood Count 2.21 x10^6/uL (4.30-5.70) Hemoglobin 6.8 g/dL (13.0-17.5) Hematocrit 21.2 % (39.0-53.0) Mean Corpuscular Volume 96 fL (79-100) Mean Corpuscular Hemoglobin 31 pg (25-35) Mean Corpuscular Hemoglobin Concent 32 g/dL (31-37) Red Cell Distribution Width 22.3 % (11.5-14.5) Platelet Count 108 x10^3/uL (140-400) Sodium Level 136 mmol/L (136-145) Potassium Level 4.0 mmol/L (3.5-5.1) Chloride Level 98 mmol/L (98-107) Carbon Dioxide Level 26 mmol/L (21-32) Anion Gap 12 (6-14) Blood Urea Nitrogen 21 mg/dL (8-26) Creatinine 3.5 mg/dL (0.7-1.3) Estimated GFR (Cockcroft-Gault) 16.8 Glucose Level 51 mg/dL (70-99) Calcium Level 7.5 mg/dL (8.5-10.1) Phosphorus Level 2.8 mg/dL (2.6-4.7) Magnesium Level 2.0 mg/dL (1.8-2.4) Total Bilirubin 3.8 mg/dL (0.2-1.0) Direct Bilirubin 1.6 mg/dL (0.0-0.2) Aspartate Amino Transf (AST/SGOT) 1815 U/L (15-37) Alanine Aminotransferase (ALT/SGPT) 220 U/L (16-63) Alkaline Phosphatase 160 U/L (46-116) Total Protein 6.6 g/dL (6.4-8.2) Albumin 1.7 g/dL (3.4-5.0) O2 Saturation 98 % (92-99) Arterial Blood pH 7.49 (7.35-7.45) Arterial Blood pCO2 at Patient Temp 34 mmHg (35-46) Arterial Blood pO2 at Patient Temp 105 mmHg (65-108) Arterial Blood HCO3 25 mmol/L (21-28) Arterial Blood Base Excess 2 mmol/L (-3-3) FiO2 60 Glucose (Fingerstick) 99 mg/dL (70-99) Test 12/27/20 08:35 Prothrombin Time 40.0 SEC (11.7-14.0) Prothromb Time International Ratio 4.3 (0.8-1.1) Results All relevant outside records, renal labs, imaging studies, telemetry/EKG's were reviewed. Justicifation of Admission Dx: Justifications for Admission: Justification of Admission Dx: N/A MERLE QUIROZ MD Dec 27, 2020 10:58
[2020-12-27] MEDS: MEROPENEM 500 MG in IV NORMAL SALINE 50ML 50 ML IV SCH (11:05)
[2020-12-27] MEDS: MIDAZOLAM 100mg/100ml NS BAG 100 ML IV PRN (12:09)
[2020-12-27] MEDS ORDERED: fentaNYL HIGH DOSE PCA 55 ML IV PRN (12:45)
[2020-12-27] MEDS: DAPTOmycin (GENERIC) IVPB 510 MG in IV NORMAL SALINE 50ML 50 ML IV SCH (13:31)
[2020-12-27] MEDS: ASPIRIN CHEWABLE 81 MG TABLET. PO SCH (13:38)
[2020-12-27] MEDS: LINEZOLID 600 MG TABLET PO SCH ×2 (13:39→21:48)
--- NOTE | 2020-12-27 15:43 | RAD ---
Procedure: Central line placement at the bedside Clinical Indication: Adult male requiring central venous access Sedation: Local anesthesia only Antibiotics: None Fluoro Time: Not applicable Contrast: None Sterility: All elements of maximal sterile barrier technique including the use of a cap, mask, steril e gown, sterile gloves, large sterile sheet, appropriate hand hygiene, and 2% chlorhexidine for cutan eous antisepsis (or acceptable alternative antiseptic per current guidelines) were followed for this procedure. Consent: The procedure was explained in its entirety to the patient or the patients designated repres entative by a member of the treatment team, including a discussion of the risks, benefits and commonl y accepted alternatives to the procedure, as well as the expected consequences of no therapy whatsoev er. Discussion of the risks included, but was not limited to, those that are most frequent and thos e that are rare but possibly severe or life-threatening, as well as the possibility of unforeseen com plications. Technique and Findings: Following informed consent, the patient was prepped and draped in the usual s terile fashion. Ultrasound interrogation of the right neck revealed patency and compressibility of t he right internal jugular vein. A hardcopy ultrasound image was recorded. A 21-gauge micropuncture n eedle was used to gain access to this vein after local anesthesia was achieved with 1% Lidocaine. Th e needle was exchanged over the wire for a small dilator followed by a triple lumen central line. Al l 3 lumens flushed and aspirated with ease. The catheter was sutured to the skin and a chest x-ray w as obtained to assess for line position. Complications: None Impression: 1. Central venous catheter placement as described. Electronically signed by: Ronald Bacon MD (12/27/2020 3:41 PM) [id number]
--- NOTE | 2020-12-27 15:43 | NUR ---
SS following up with discharge planning. SS reviewed pt chart and discussed with pt RN. Pt is currently on the vent at 50%. COVID19 negative. Pt on IV Meropenem, IV Daptomycin, and PO Zyvox. Pt on Fentanyl, Versed, and Levophed. Hemodialysis. Dr. Tesfaye and Dr. Hinojosa have discussed. Dr. Hinojosa discussed goals of care with pt's son and pt remains Full Code at this time. SS will continue to follow for discharge planning.
--- NOTE | 2020-12-27 21:17 | NUR ---
Daphnie not give due to pharmacy says it can not be put down a feeding tube. Will pass it along to the doctors in the AM.
[2020-12-27] MEDS: ATORVASTATIN CALCIUM 20 MG TABLET PO SCH (21:48)
[2020-12-27] MEDS: ACETAMINOPHEN 325 MG TABLET. PO SCH (21:49)
[2020-12-28] VITALS (25 sets, daily range): BP systolic 74–109; BP diastolic 24–55
[2020-12-28] MEDS: DEXTROSE 50% 25 GM / 50ML DISP.SYRIN. IV PRN (01:20)
[2020-12-28] MEDS: IV RINGERS,LACTATED 1000ML 1,000 ML IV SCH ×2 (04:32→04:37)
[2020-12-28] MEDS: NOREPINEPHRINE VIAL 8 MG in IV DEXTROSE 5% 250 ML IV PRN ×4 (04:34→23:54)
[2020-12-28 06:33] LABS: BASO # 0.1 x10^3/uL (0.0-0.2); BASO % 1 % (0-3); EOS # 0.1 x10^3/uL (0.0-0.7); EOS % 1 % (0-3); HEMOGLOBIN 7.1 g/dL (13.0-17.5); LYMPH # 1.2 x10^3/uL (1.0-4.8); LYMPH % 8 % (24-48); MEAN CORPUSCULAR HEMOGLOBIN 29 pg (25-35); MEAN CORPUSCULAR HGB CONC 33 g/dL (31-37); MONO # 0.4 x10^3/uL (0.0-1.1); MONO % 3 % (0-9); NEUT # 12.4 x10^3/uL (1.8-7.7); NEUT % 87 % (31-73); PLATELET COUNT 69 x10^3/uL (140-400); RED CELL DISTRIBUTION WIDTH 27.7 % (11.5-14.5)
[2020-12-28 06:34] LABS: HEMATOCRIT 22.1 % (39.0-53.0); RED BLOOD COUNT 2.46 x10^6/uL (4.30-5.70); WHITE BLOOD COUNT 13.9 x10^3/uL (4.0-11.0)
[2020-12-28 06:36] LABS: MEAN CORPUSCULAR VOLUME 90 fL (79-100); PROTHROMBIN TIME PATIENT 36.3 SEC (11.7-14.0)
[2020-12-28 06:47] LABS: ALBUMIN 1.9 g/dL (3.4-5.0); CALCIUM 7.5 mg/dL (8.5-10.1); GFR 20.1; MAGNESIUM 1.7 mg/dL (1.8-2.4); PHOSPHORUS 1.2 mg/dL (2.6-4.7); POTASSIUM 3.4 mmol/L (3.5-5.1)
[2020-12-28] MEDS ORDERED: DIALYSIS PATIENT. MC PRN (07:15)
[2020-12-28] MEDS ORDERED: IV NORMAL SALINE 1000ML BAG 1,000 ML IV PRN ×2 (07:15)
[2020-12-28] MEDS ORDERED: ALBUMIN HUMAN 25% 200 ML IV ONE (07:45)
[2020-12-28] MEDS ORDERED: PHYTONADIONE 10 MG/ML AMPUL. SQ ONE (08:15)
[2020-12-28 08:22] LABS: % BANDS 23 % (0-9); % LYMPHS 3 % (24-48); % METAS 2 % (0-0); % MONOS 2 % (0-10); % SEGS 70 % (35-66); NUCLEATED RBC 9
[2020-12-28 08:23] LABS: ANISOCYTOSIS MOD; PLT ESTIMATE DECREASED (ADEQUATE)
[2020-12-28 08:24] LABS: POLYCHROMASIA SLIGHT
--- NOTE | 2020-12-28 08:24 | PDOC ---
Infectious Disease Note Subjective: Subjective Patient remains intubated/sedated on pressors Afebrile Undergoing dialysis Status post 1 unit of PRBC transfusion yesterday Platelets 49 Patient had mucopurulent bloodstained drainage from right knee incision earlier today d/w RN Vital Signs: Vital Signs Vital Signs Date Time Temp Pulse Resp B/P (MAP) Pulse Ox O2 Delivery O2 Flow Rate FiO2 12/28/20 07:28 94 Ventilator 12/28/20 06:00 72 16 92/42 12/28/20 04:00 99.4 99.4 Physical Exam: PHYSICAL EXAM GENERAL: Intubated/sedated HEENT: ETT OGT in place NECK: Right IJ placed , chest wall has right HDC looks clean LUNGS: Decreased HEART: S1, S2, systolic murmur present. Pacemaker site looks okay ABDOMEN: Soft, nontender, nondistended. EXTREMITIES: Right knee prepatellar swelling, mild erythema cool,mottled digits DERMATOLOGIC: No generalized rash, multiple purpuric lesions both feet and upper extremity.? Embolic NEUROLOGIC: Unable to assess Medications: Inpatient Meds: Medications reviewed. Labs: Lab Laboratory Tests Test 12/27/20 08:35 12/27/20 11:10 12/27/20 11:20 12/27/20 11:23 Prothrombin Time 40.0 SEC (11.7-14.0) Prothromb Time International Ratio 4.3 (0.8-1.1) D-Dimer (Stephanie) > 20.00 ug/mlFEU Lactic Acid Level 2.1 mmol/L (0.4-2.0) Ammonia 31 mcmol/L (11-34) Glucose (Fingerstick) 80 mg/dL (70-99) Test 12/27/20 14:45 12/28/20 00:34 12/28/20 01:32 12/28/20 06:00 Lactic Acid Level 2.5 mmol/L (0.4-2.0) Glucose (Fingerstick) 66 mg/dL (70-99) 91 mg/dL (70-99) White Blood Count 13.9 x10^3/uL (4.0-11.0) Red Blood Count 2.46 x10^6/uL (4.30-5.70) Hemoglobin 7.1 g/dL (13.0-17.5) Hematocrit 22.1 % (39.0-53.0) Mean Corpuscular Volume 90 fL (79-100) Mean Corpuscular Hemoglobin 29 pg (25-35) Mean Corpuscular Hemoglobin Concent 33 g/dL (31-37) Red Cell Distribution Width 27.7 % (11.5-14.5) Platelet Count 69 x10^3/uL (140-400) Neutrophils (%) (Auto) 87 % (31-73) Lymphocytes (%) (Auto) 8 % (24-48) Monocytes (%) (Auto) 3 % (0-9) Eosinophils (%) (Auto) 1 % (0-3) Basophils (%) (Auto) 1 % (0-3) Neutrophils # (Auto) 12.4 x10^3/uL (1.8-7.7) Lymphocytes # (Auto) 1.2 x10^3/uL (1.0-4.8) Monocytes # (Auto) 0.4 x10^3/uL (0.0-1.1) Eosinophils # (Auto) 0.1 x10^3/uL (0.0-0.7) Basophils # (Auto) 0.1 x10^3/uL (0.0-0.2) Prothrombin Time 36.3 SEC (11.7-14.0) Prothromb Time International Ratio 3.8 (0.8-1.1) Sodium Level 136 mmol/L (136-145) Potassium Level 3.4 mmol/L (3.5-5.1) Chloride Level 99 mmol/L (98-107) Carbon Dioxide Level 30 mmol/L (21-32) Anion Gap 7 (6-14) Blood Urea Nitrogen 15 mg/dL (8-26) Creatinine 3.0 mg/dL (0.7-1.3) Estimated GFR (Cockcroft-Gault) 20.1 Glucose Level 83 mg/dL (70-99) Calcium Level 7.5 mg/dL (8.5-10.1) Phosphorus Level 1.2 mg/dL (2.6-4.7) Magnesium Level 1.7 mg/dL (1.8-2.4) Albumin 1.9 g/dL (3.4-5.0) Test 12/28/20 06:27 12/28/20 07:30 Glucose (Fingerstick) 72 mg/dL (70-99) O2 Saturation 87 % (92-99) Arterial Blood pH 7.39 (7.35-7.45) Arterial Blood pCO2 at Patient Temp 51 mmHg (35-46) Arterial Blood pO2 at Patient Temp 48 mmHg (65-108) Arterial Blood HCO3 31 mmol/L (21-28) Arterial Blood Base Excess 5 mmol/L (-3-3) Micro Chest x-ray IMPRESSION: 1. Increase in diffuse mixed interstitial and alveolar infiltrate and small pleural effusions. 2. Stable cardiomegaly and cardiac pacemaker. 3. Right internal jugular catheter with the tip overlying expected position of the superior cavoatrial junction. Objective: Assessment: Patient with prolonged hospitalization and complicated medical course now with multiorgan failure Persistent methicillin sensitive staph aureus bacteremia 4 of 4 bottles present on admission 11/28/2020, November 30 and December 02 History of PPM.H/O recent battery exchange. SOO negative for vegetation or thrombus Rt [place] joint MSSA septic arthritis status post synovial aspirate WBC 30,000 RBC 66,000 Status post irrigation debridement of right knee joint and prepatellar bursa on December 04, 2020 Cultures positive for MSSA Sepsis Leukocytosis and lactic acidosis Thrombocytopenia acute Respiratory failure status post intubation on 12/26/2020/appears multifactorial ARDS Encephalopathy Anemia status post PRBC 12/27/2020 History of fall present on admission. GUERO on HD urine eosinophil negative Abnormal LFTs likely shock liver Encephalopathy appears metabolic History of atrial fibrillation. CHF status post PPM Hypertension. Coagulopathy on admission Nausea and vomiting couple of days ago which had resolved Plan: Plan of Care Due to worsening platelets will DC Zyvox Continue daptomycin and meropenem for now Cardiology and renal team following. We will have orthopedics reevaluate right knee Monitor labs and cultures Wound care as directed by orthopedics Overall long-term prognosis is very poor Consider transition to palliative care/comfort measures Continue supportive care. Discussed with nursing staff ELIZABETH BALLESTEROS MD Dec 28, 2020 08:24
[2020-12-28 08:25] LABS: POIKILOCYTOSIS SLIGHT
[2020-12-28 08:28] LABS: SCHISTOCYTES FEW
[2020-12-28 08:29] LABS: TARGET CELLS OCC
--- NOTE | 2020-12-28 08:57 | NUR ---
SS following up with discharge planning. SS reviewed pt chart and discussed with pt RN. Pt is currently on the vent at 40%. COVID19 negative. Full Code. Pt on Fentanyl, Versed, and Levophed. Pt on IV Daptomycin, IV Meropenem, and PO Zyvox. Hemodialysis. Pt getting Vitamin K today. SS will continue to follow for discharge planning.
[2020-12-28 08:59] LABS: BURR CELLS FEW
--- NOTE | 2020-12-28 09:04 | PDOC ---
PULMONARY PROGRESS NOTES DATE: 12/28/20 TIME: 09:04 Subjective Remains critically ill, currently undergoing dialysis On Levophed Assist-control ventilation 50% FiO2 Vitals Vital Signs Date Time Temp Pulse Resp B/P (MAP) Pulse Ox O2 Delivery O2 Flow Rate FiO2 12/28/20 07:28 94 Ventilator 12/28/20 06:00 72 16 92/42 12/28/20 04:00 99.4 99.4 Lungs: Clear Cardiovascular: S1, S2 Abdomen: Soft Extremities: Other (Edema) Skin: Warm Labs Laboratory Tests Test 12/26/20 10:47 12/26/20 11:09 12/26/20 13:00 12/26/20 20:30 Glucose (Fingerstick) 62 mg/dL (70-99) 127 mg/dL (70-99) Ammonia 17 mcmol/L (11-34) O2 Saturation 99 % (92-99) Arterial Blood pH 7.26 (7.35-7.45) Arterial Blood pCO2 at Patient Temp 62 mmHg (35-46) Arterial Blood pO2 at Patient Temp 156 mmHg (65-108) Arterial Blood HCO3 27 mmol/L (21-28) Arterial Blood Base Excess 0 mmol/L (-3-3) FiO2 100 Test 12/27/20 04:45 12/27/20 04:50 12/27/20 07:25 12/27/20 07:53 White Blood Count 14.7 x10^3/uL (4.0-11.0) Red Blood Count 2.21 x10^6/uL (4.30-5.70) Hemoglobin 6.8 g/dL (13.0-17.5) Hematocrit 21.2 % (39.0-53.0) Mean Corpuscular Volume 96 fL (79-100) Mean Corpuscular Hemoglobin 31 pg (25-35) Mean Corpuscular Hemoglobin Concent 32 g/dL (31-37) Red Cell Distribution Width 22.3 % (11.5-14.5) Platelet Count 108 x10^3/uL (140-400) Sodium Level 136 mmol/L (136-145) Potassium Level 4.0 mmol/L (3.5-5.1) Chloride Level 98 mmol/L (98-107) Carbon Dioxide Level 26 mmol/L (21-32) Anion Gap 12 (6-14) Blood Urea Nitrogen 21 mg/dL (8-26) Creatinine 3.5 mg/dL (0.7-1.3) Estimated GFR (Cockcroft-Gault) 16.8 Glucose Level 51 mg/dL (70-99) Calcium Level 7.5 mg/dL (8.5-10.1) Phosphorus Level 2.8 mg/dL (2.6-4.7) Magnesium Level 2.0 mg/dL (1.8-2.4) Total Bilirubin 3.8 mg/dL (0.2-1.0) Direct Bilirubin 1.6 mg/dL (0.0-0.2) Aspartate Amino Transf (AST/SGOT) 1815 U/L (15-37) Alanine Aminotransferase (ALT/SGPT) 220 U/L (16-63) Alkaline Phosphatase 160 U/L (46-116) Total Protein 6.6 g/dL (6.4-8.2) Albumin 1.7 g/dL (3.4-5.0) O2 Saturation 98 % (92-99) Arterial Blood pH 7.49 (7.35-7.45) Arterial Blood pCO2 at Patient Temp 34 mmHg (35-46) Arterial Blood pO2 at Patient Temp 105 mmHg (65-108) Arterial Blood HCO3 25 mmol/L (21-28) Arterial Blood Base Excess 2 mmol/L (-3-3) FiO2 60 Glucose (Fingerstick) 99 mg/dL (70-99) Test 12/27/20 08:35 12/27/20 11:10 12/27/20 11:20 12/27/20 11:23 Prothrombin Time 40.0 SEC (11.7-14.0) Prothromb Time International Ratio 4.3 (0.8-1.1) D-Dimer (Stephanie) > 20.00 ug/mlFEU Lactic Acid Level 2.1 mmol/L (0.4-2.0) Ammonia 31 mcmol/L (11-34) Glucose (Fingerstick) 80 mg/dL (70-99) Test 12/27/20 14:45 12/28/20 00:34 12/28/20 01:32 12/28/20 06:00 Lactic Acid Level 2.5 mmol/L (0.4-2.0) Glucose (Fingerstick) 66 mg/dL (70-99) 91 mg/dL (70-99) White Blood Count 13.9 x10^3/uL (4.0-11.0) Red Blood Count 2.46 x10^6/uL (4.30-5.70) Hemoglobin 7.1 g/dL (13.0-17.5) Hematocrit 22.1 % (39.0-53.0) Mean Corpuscular Volume 90 fL (79-100) Mean Corpuscular Hemoglobin 29 pg (25-35) Mean Corpuscular Hemoglobin Concent 33 g/dL (31-37) Red Cell Distribution Width 27.7 % (11.5-14.5) Platelet Count 69 x10^3/uL (140-400) Neutrophils (%) (Auto) 87 % (31-73) Lymphocytes (%) (Auto) 8 % (24-48) Monocytes (%) (Auto) 3 % (0-9) Eosinophils (%) (Auto) 1 % (0-3) Basophils (%) (Auto) 1 % (0-3) Neutrophils # (Auto) 12.4 x10^3/uL (1.8-7.7) Lymphocytes # (Auto) 1.2 x10^3/uL (1.0-4.8) Monocytes # (Auto) 0.4 x10^3/uL (0.0-1.1) Eosinophils # (Auto) 0.1 x10^3/uL (0.0-0.7) Basophils # (Auto) 0.1 x10^3/uL (0.0-0.2) Segmented Neutrophils % 70 % (35-66) Band Neutrophils % 23 % (0-9) Lymphocytes % 3 % (24-48) Monocytes % 2 % (0-10) Metamyelocytes % 2 % (0-0) Nucleated Red Blood Cells 9 Platelet Estimate Decreased (ADEQUATE) Polychromasia Slight Poikilocytosis Slight Basophilic Stippling Present Anisocytosis Mod Target Cells Occ [place] Cells Few Schistocytes Few RBC Morphology Bizarre Forms Prothrombin Time 36.3 SEC (11.7-14.0) Prothromb Time International Ratio 3.8 (0.8-1.1) Sodium Level 136 mmol/L (136-145) Potassium Level 3.4 mmol/L (3.5-5.1) Chloride Level 99 mmol/L (98-107) Carbon Dioxide Level 30 mmol/L (21-32) Anion Gap 7 (6-14) Blood Urea Nitrogen 15 mg/dL (8-26) Creatinine 3.0 mg/dL (0.7-1.3) Estimated GFR (Cockcroft-Gault) 20.1 Glucose Level 83 mg/dL (70-99) Calcium Level 7.5 mg/dL (8.5-10.1) Phosphorus Level 1.2 mg/dL (2.6-4.7) Magnesium Level 1.7 mg/dL (1.8-2.4) Albumin 1.9 g/dL (3.4-5.0) Test 12/28/20 06:27 12/28/20 07:30 Glucose (Fingerstick) 72 mg/dL (70-99) O2 Saturation 87 % (92-99) Arterial Blood pH 7.39 (7.35-7.45) Arterial Blood pCO2 at Patient Temp 51 mmHg (35-46) Arterial Blood pO2 at Patient Temp 48 mmHg (65-108) Arterial Blood HCO3 31 mmol/L (21-28) Arterial Blood Base Excess 5 mmol/L (-3-3) Laboratory Tests Test 12/27/20 11:10 12/27/20 11:20 12/27/20 11:23 12/27/20 14:45 Lactic Acid Level 2.1 mmol/L (0.4-2.0) 2.5 mmol/L (0.4-2.0) Ammonia 31 mcmol/L (11-34) Glucose (Fingerstick) 80 mg/dL (70-99) Test 12/28/20 00:34 12/28/20 01:32 12/28/20 06:00 12/28/20 06:27 Glucose (Fingerstick) 66 mg/dL (70-99) 91 mg/dL (70-99) 72 mg/dL (70-99) White Blood Count 13.9 x10^3/uL (4.0-11.0) Red Blood Count 2.46 x10^6/uL (4.30-5.70) Hemoglobin 7.1 g/dL (13.0-17.5) Hematocrit 22.1 % (39.0-53.0) Mean Corpuscular Volume 90 fL (79-100) Mean Corpuscular Hemoglobin 29 pg (25-35) Mean Corpuscular Hemoglobin Concent 33 g/dL (31-37) Red Cell Distribution Width 27.7 % (11.5-14.5) Platelet Count 69 x10^3/uL (140-400) Neutrophils (%) (Auto) 87 % (31-73) Lymphocytes (%) (Auto) 8 % (24-48) Monocytes (%) (Auto) 3 % (0-9) Eosinophils (%) (Auto) 1 % (0-3) Basophils (%) (Auto) 1 % (0-3) Neutrophils # (Auto) 12.4 x10^3/uL (1.8-7.7) Lymphocytes # (Auto) 1.2 x10^3/uL (1.0-4.8) Monocytes # (Auto) 0.4 x10^3/uL (0.0-1.1) Eosinophils # (Auto) 0.1 x10^3/uL (0.0-0.7) Basophils # (Auto) 0.1 x10^3/uL (0.0-0.2) Segmented Neutrophils % 70 % (35-66) Band Neutrophils % 23 % (0-9) Lymphocytes % 3 % (24-48) Monocytes % 2 % (0-10) Metamyelocytes % 2 % (0-0) Nucleated Red Blood Cells 9 Platelet Estimate Decreased (ADEQUATE) Polychromasia Slight Poikilocytosis Slight Basophilic Stippling Present Anisocytosis Mod Target Cells Occ [place] Cells Few Schistocytes Few RBC Morphology Bizarre Forms Prothrombin Time 36.3 SEC (11.7-14.0) Prothromb Time International Ratio 3.8 (0.8-1.1) Sodium Level 136 mmol/L (136-145) Potassium Level 3.4 mmol/L (3.5-5.1) Chloride Level 99 mmol/L (98-107) Carbon Dioxide Level 30 mmol/L (21-32) Anion Gap 7 (6-14) Blood Urea Nitrogen 15 mg/dL (8-26) Creatinine 3.0 mg/dL (0.7-1.3) Estimated GFR (Cockcroft-Gault) 20.1 Glucose Level 83 mg/dL (70-99) Calcium Level 7.5 mg/dL (8.5-10.1) Phosphorus Level 1.2 mg/dL (2.6-4.7) Magnesium Level 1.7 mg/dL (1.8-2.4) Albumin 1.9 g/dL (3.4-5.0) Test 12/28/20 07:30 O2 Saturation 87 % (92-99) Arterial Blood pH 7.39 (7.35-7.45) Arterial Blood pCO2 at Patient Temp 51 mmHg (35-46) Arterial Blood pO2 at Patient Temp 48 mmHg (65-108) Arterial Blood HCO3 31 mmol/L (21-28) Arterial Blood Base Excess 5 mmol/L (-3-3) Medications Active Scripts Medications Dose Route/Sig Max Daily Dose Days Date Category Nafcillin 2 Gm/ 100 Ml Inj (Nafcillin In Dextrose,Iso-Osm) 2 Gm/100 Ml Froz.piggy 2 Gm IV Q4HRS 30 12/16/20 Rx Acetaminophen 325 Mg Tablet 650 Mg PO QHS 11/28/20 Reported Aspirin 81 Mg Tab.chew 1 Tab PO DAILY 11/01/20 Reported Men's Multivitamin Tablet (Multivit-Min/Folic/Vit K/Lycop) 1 Each Tablet 1 Each PO DAILY 07/19/20 Reported Pravastatin Sodium 80 Mg Tablet 1 Tab PO DAILY 03/02/19 Reported Lasix (Furosemide) 40 Mg Tablet 1 Tab PO DAILY 01/11/14 Reported Colace (Docusate Sodium) 100 Mg Capsule 1 Cap PO PRN BID PRN 01/11/14 Reported Impression . IMPRESSION: 1. Acute hypoxemic respiratory failure, multifactorial. 2. Abnormal x-ray compatible with acute respiratory distress syndrome, possible pneumonia. 3. Persistent methicillin-sensitive Staph aureus bacteremia, present upon admission. 4. Right [place] joint methicillin-susceptible Staphylococcus aureus septic arthritis. 5. Metabolic toxic encephalopathy. 6. Atrial fibrillation. 7. Hypertension. 8. Liver failure. 9. Severe protein malnutrition, present upon admission. 10. Acute renal failure. 11. Septic shock Plan . Updated 12/28 Continue current support ABG noted pH 7.40 Chest x-ray in a.m. Antibiotics per ID Hemoglobin 7.1 Critical care time of 30 minutes with no overlap Updated 12/27 Events of the yesterday no Patient deteriorated needing intubation, family wishes to proceed with aggressive care Continue assist-control ventilation adjust minute ventilation Currently undergoing hemodialysis, negative fluid balance if possible Transfuse Labs and chest x-ray reviewed Antibiotics per ID Case discussed yesterday with ANGELITO Guillaume MD Dec 28, 2020 09:04
[2020-12-28 09:25] LABS: FIO2 ABG 40
[2020-12-28 09:32] LABS: PCO2 ABG 49 mmHg (35-46)
[2020-12-28 09:33] LABS: BASE EXCESS ABG 4 mmol/L (-3-3); HCO3 ABG 30 mmol/L (21-28); PO2 ABG 50 mmHg (65-108); SAT O2 ABG 88 % (92-99)
--- NOTE | 2020-12-28 09:33 | PDOC ---
Date of Service: DATE: 12/28/20 TIME: 09:27 Objective: Objective: D/w nurse - had high residual so tube feeds held, restarted at 10cc. Some "dark output" w/ residual but now less. No stools. INR rechecked - improved but still elevated, plans for vit K. Dialyzing again. "Pus" from knee wound. On pressor. Vital Signs: Vital Signs Date Time Temp Pulse Resp B/P (MAP) Pulse Ox O2 Delivery O2 Flow Rate FiO2 12/28/20 09:00 66 16 74/39 92 Ventilator 12/28/20 08:00 100.4 100.4 Labs: Laboratory Tests Test 12/27/20 11:10 12/27/20 11:20 12/27/20 11:23 12/27/20 14:45 Lactic Acid Level 2.1 mmol/L 2.5 mmol/L Ammonia 31 mcmol/L Glucose (Fingerstick) 80 mg/dL Test 12/28/20 00:34 12/28/20 01:32 12/28/20 06:00 12/28/20 06:27 Glucose (Fingerstick) 66 mg/dL 91 mg/dL 72 mg/dL White Blood Count 13.9 x10^3/uL Red Blood Count 2.46 x10^6/uL Hemoglobin 7.1 g/dL Hematocrit 22.1 % Mean Corpuscular Volume 90 fL Mean Corpuscular Hemoglobin 29 pg Mean Corpuscular Hemoglobin Concent 33 g/dL Red Cell Distribution Width 27.7 % Platelet Count 69 x10^3/uL Neutrophils (%) (Auto) 87 % Lymphocytes (%) (Auto) 8 % Monocytes (%) (Auto) 3 % Eosinophils (%) (Auto) 1 % Basophils (%) (Auto) 1 % Neutrophils # (Auto) 12.4 x10^3/uL Lymphocytes # (Auto) 1.2 x10^3/uL Monocytes # (Auto) 0.4 x10^3/uL Eosinophils # (Auto) 0.1 x10^3/uL Basophils # (Auto) 0.1 x10^3/uL Segmented Neutrophils % 70 % Band Neutrophils % 23 % Lymphocytes % 3 % Monocytes % 2 % Metamyelocytes % 2 % Nucleated Red Blood Cells 9 Platelet Estimate Decreased Polychromasia Slight Poikilocytosis Slight Basophilic Stippling Present Anisocytosis Mod Target Cells Occ [place] Cells Few Schistocytes Few RBC Morphology Bizarre Forms Prothrombin Time 36.3 SEC Prothromb Time International Ratio 3.8 Sodium Level 136 mmol/L Potassium Level 3.4 mmol/L Chloride Level 99 mmol/L Carbon Dioxide Level 30 mmol/L Anion Gap 7 Blood Urea Nitrogen 15 mg/dL Creatinine 3.0 mg/dL Estimated GFR (Cockcroft-Gault) 20.1 Glucose Level 83 mg/dL Calcium Level 7.5 mg/dL Phosphorus Level 1.2 mg/dL Magnesium Level 1.7 mg/dL Albumin 1.9 g/dL Test 12/28/20 07:30 O2 Saturation 87 % Arterial Blood pH 7.39 Arterial Blood pCO2 at Patient Temp 51 mmHg Arterial Blood pO2 at Patient Temp 48 mmHg Arterial Blood HCO3 31 mmol/L Arterial Blood Base Excess 5 mmol/L FiO2 40 PE: GEN: intubated, dialyzing LUNGS: clear, vent HEART: RRR ABD: soft, quiet, tube feeds @ 10cc/hr NEURO/PSYCH: sedated A/P: MOF MSSA bacteremia/right knee septic arthritis s/p I&D Anemia and coagulopathy (some improvement w/ transfusions), elevated LFTs (likely congestion w/ heart failure) -- Monitor response to slow tube feed rate. Poor prognosis, remains full code. Supportive care from GI standpoint. Justicifation of Admission Dx: Justifications for Admission: Justification of Admission Dx: N/A PAMELA TREVIÑO Dec 28, 2020 09:33
--- NOTE | 2020-12-28 09:58 | PDOC ---
DATE OF SERVICE DATE: 12/28/20 TIME: 09:57 SUBJECTIVE ROS Remains intubated OBJECTIVE Vital Signs Vital Signs Date Time Temp Pulse Resp B/P (MAP) Pulse Ox O2 Delivery O2 Flow Rate FiO2 12/28/20 09:00 66 16 74/39 92 Ventilator 12/28/20 08:00 100.4 100.4 I & 0 Intake and Output 12/28/20 07:00 Intake Total 3295 ml Output Total 340 ml Balance 2955 ml Intake Oral 0 ml IV Total 1829 ml Tube Feeding 956 ml Other 510 ml Output Urine Total 0 ml Gastric Drainage Total 340 ml PHYSICAL EXAM Physical Exam GENERAL: Intubated/sedated HEENT: Normocephalic, atraumatic. Anicteric. NECK: right HDC LUNGS: Decreased at bases HEART: S1, S2, systolic murmur present. Pacemaker + ABDOMEN: Soft, nontender, nondistended. EXTREMITIES: Right knee prepatellar swelling, erythema and warmth are improving cool,mottled digits DERMATOLOGIC: No generalized rash NEUROLOGIC: Unable to assess, sedated No Mejia DIAGNOSIS/ASSESSMENT Assessment & Plan GUERO - ATN 2/ 2 Hypotension/ Sepsis [place]lig[place] Anuric- Requiring Dialysis 1st on 12/12 ; Seen during dialysis, tolerating well, UF 2-3 as tolerated, IV Albumin Prn . Continue as ordered, Francesco Esquivel Renal US unremarkable. Baseline normal Cr on 11/30 and UA was unremarkable ; Bladder scan done in ICU- Anuric currently . No Renal Recovery supportive care , strict I/O Access Currently has Temp HDC . HypoKalemia - Adjust K in dialysate Acute hypoxemic respiratory failure, multifactorial- Transferred to ICU, Intubated, On MV . Abnormal x-ray compatible with acute respiratory distress syndrome, possible pneumonia. Anemia required PRBC. continue LIDIA . Hgb < 7 today, Recent PRBC 12/27 Persistent methicillin sensitive staph aureus bacteremia 4 of 4 bottles present on admission 11/28/2020 .History of PPM.H/O recent battery exchange. SOO negative for vegetation or thrombus Rt [place] joint MSSA septic arthritis S/P synovial aspirate ,Status post irrigation debridement of right knee joint and prepatellar bursa on December 04, 2020.Cultures positive for MSSA History of PPM.H/O recent battery exchange. History of atrial fibrillation. COMMENT/RELEVANT DATA Meds Current Medications Medications (Trade) Dose Ordered Sig/Gia Start Time Stop Time Status Last Admin Dose Admin Acetaminophen (Tylenol) 650 mg QHS 11/29/20 21:00 12/27/20 21:49 650 MG Acetaminophen/ Hydrocodone Bitart (Lortab 10/325) 1 tab PRN Q4HRS PRN 12/05/20 20:00 12/24/20 14:02 1 TAB Acetaminophen/ Hydrocodone Bitart (Lortab 5/325) 1 tab PRN Q4HRS PRN 11/28/20 22:45 12/05/20 19:50 DC 12/05/20 17:38 1 TAB Albumin Human 200 ml @ 200 mls/hr 1X ONCE 12/28/20 07:45 12/28/20 08:44 DC 12/28/20 08:22 200 MLS/HR Aspirin (Aspirin Chewable) 81 mg 1X ONCE 12/27/20 10:45 12/27/20 10:46 UNV Aspirin (Ecotrin) 81 mg [id number] 12/23/20 13:00 12/27/20 10:33 DC 12/24/20 08:40 81 MG Atorvastatin Calcium (Lipitor) 40 mg QHS 12/19/20 21:00 12/27/20 21:48 40 MG Atropine Sulfate (ATROPINE 0.5mg SYRINGE) 0.5 mg PRN Q5MIN PRN 12/26/20 19:15 Azithromycin 250 ml @ 250 mls/hr DAILY ONCE 11/30/20 09:00 11/30/20 09:59 UNV Azithromycin 500 mg/Sodium Chloride 250 ml @ 250 mls/hr Q24H 11/29/20 15:00 11/29/20 13:50 DC Benzocaine (Hurricaine One) 1 spray STK-MED ONCE 12/05/20 10:06 12/05/20 10:07 DC Carvedilol (Coreg) 3.125 mg BIDWMEALS 12/01/20 12:00 12/05/20 20:11 DC 12/03/20 16:39 3.125 MG Cefazolin Sodium (Ancef) 1 gm Q24H 12/26/20 16:00 12/27/20 10:37 DC 12/26/20 15:29 1 GM Cefazolin Sodium/ Dextrose 50 ml @ As Directed STK-MED ONCE 12/23/20 13:57 12/23/20 13:58 DC Cefepime HCl (Maxipime) 1 gm Q24H 12/22/20 11:00 12/26/20 11:56 DC 12/25/20 12:32 1 GM Ceftriaxone Sodium (Rocephin) 2 gm Q24H 11/29/20 14:00 12/01/20 09:19 DC 11/30/20 13:21 2 GM Daptomycin 500 mg/ Sodium Chloride 50 ml @ 100 mls/hr Q48H 12/13/20 10:00 12/26/20 11:55 DC 12/25/20 17:33 100 MLS/HR Daptomycin 510 mg/ Sodium Chloride 50 ml @ 100 mls/hr QODAY 12/27/20 12:00 12/27/20 13:31 100 MLS/HR Daptomycin 580 mg/ Sodium Chloride 50 ml @ 100 mls/hr Q24H 12/01/20 07:30 12/01/20 09:19 DC 12/01/20 08:52 100 MLS/HR Dexamethasone Sodium Phosphate (Decadron) 4 mg STK-MED ONCE 12/04/20 11:26 12/04/20 11:26 DC Dexmedetomidine HCl 400 mcg/ Sodium Chloride 100 ml @ 4.725 mls/ hr CONT PRN 12/26/20 19:15 Dextrose (Dextrose 50%-Water Syringe) 25 gm STK-MED ONCE 12/26/20 11:00 12/27/20 08:58 DC Docusate Sodium (Colace) 100 mg PRN BID PRN 12/17/20 17:45 Epoetin Krishna-epbx (RETACRIT for ESRD PTS) 10,000 unit MoWeFr@2100 12/14/20 21:00 12/26/20 21:29 10,000 UNIT Etomidate (Amidate) 20 mg 1X ONCE 12/26/20 21:15 12/26/20 21:16 DC 12/26/20 19:38 20 MG Famotidine (Pepcid Vial) 20 mg BID 12/26/20 21:00 12/27/20 10:19 DC 12/27/20 09:00 20 MG Fentanyl Citrate 55 ml @ 0 mls/hr CONT PRN 12/27/20 12:45 Cancel Fentanyl Citrate (Fentanyl 2ml Vial) 100 mcg 1X ONCE 12/23/20 14:00 12/23/20 14:06 DC 12/23/20 14:00 50 MCG Furosemide (Lasix) 40 mg 1X ONCE 12/25/20 23:00 12/25/20 23:05 DC 12/25/20 23:16 40 MG Glycerin/ Hypromellose/ Polyethylene (Artificial Tears) 1 drop PRN Q1HR PRN 12/26/20 19:15 Hydromorphone HCl (Dilaudid) 0.5 mg PRN Q10MIN PRN 12/04/20 09:30 12/05/20 09:29 DC Influenza Virus Vaccine Quadrival (Flulaval Quad [id number] Syringe) 0.5 ml ONCE ONCE 11/29/20 09:00 11/29/20 09:01 DC 11/29/20 10:06 0.5 ML Info (PHARMACY MONITORING -- do not chart) 1 each PRN DAILY PRN 12/28/20 07:15 Lactobacillus Rhamnosus (Culturelle) 1 cap BID 11/29/20 21:00 12/27/20 21:38 DC 12/24/20 22:38 1 CAP Lidocaine HCl (Buffered Lidocaine 1%) 4 ml 1X ONCE 12/12/20 13:15 12/12/20 13:18 DC 12/12/20 13:11 4 ML Lidocaine HCl (Lidocaine 1% 20ml Vial) 10 ml 1X ONCE 12/01/20 16:00 12/01/20 16:01 DC Lidocaine HCl (Lidocaine Pf 2% Vial) 5 ml STK-MED ONCE 12/04/20 10:43 12/04/20 10:43 DC Lidocaine HCl (Viscous Lidocaine) 15 ml STK-MED ONCE 12/05/20 10:06 12/05/20 10:06 DC Lidocaine HCl (Xylocaine 2% Topical 30gm Tube) 30 hiro STK-MED ONCE 12/05/20 10:06 12/05/20 10:06 DC Lidocaine/ Epinephrine (LIDOCAINE 1%-EPI 1:100,000 Multi-Dose) 20 ml 1X ONCE 12/23/20 14:15 12/23/20 14:16 DC 12/23/20 14:15 8 ML Linezolid (Zyvox) 600 mg BID 12/27/20 12:00 12/28/20 08:25 DC 12/27/20 21:48 600 MG Magnesium Sulfate 50 ml @ 25 mls/hr PRN DAILY PRN 12/25/20 09:15 Meropenem 500 mg/ Sodium Chloride 50 ml @ 100 mls/hr DAILY 12/27/20 11:00 12/27/20 11:05 100 MLS/HR Metoprolol Succinate (Toprol Xl) 25 mg DAILY 12/09/20 09:00 12/25/20 10:43 DC 12/24/20 08:41 25 MG Midazolam HCl (Versed) 5 mg PRN 1X PRN 12/26/20 19:15 12/27/20 19:14 DC Morphine Sulfate (Morphine Sulfate) 1 mg PRN Q10MIN PRN 12/04/20 09:30 12/05/20 09:29 DC Nafcillin Sodium 2 gm/Dextrose 100 ml @ 200 mls/hr Q4HRS 12/01/20 10:00 12/21/20 08:19 DC 12/21/20 04:11 200 MLS/HR Norepinephrine Bitartrate 8 mg/ Dextrose 258 ml @ 18.286 mls/ hr CONT PRN 12/26/20 19:15 12/28/20 04:34 34.2 MLS/HR Ondansetron HCl (Zofran) 4 mg STK-MED ONCE 12/04/20 11:26 12/04/20 11:26 DC Pantoprazole Sodium (PROTONIX VIAL for IV PUSH) 40 mg DAILYAC 12/27/20 07:30 12/27/20 07:30 40 MG Pantoprazole Sodium (Protonix) 40 mg DAILYAC 12/20/20 09:15 12/26/20 10:17 DC 12/24/20 06:15 40 MG Phenylephrine HCl (PHENYLEPHRINE in 0.9% NACL PF) 1 mg STK-MED ONCE 12/04/20 10:43 12/04/20 10:43 DC Phytonadione (Vitamin K Ampule) 10 mg 1X ONCE 12/28/20 08:15 12/28/20 08:16 DC Polyethylene Glycol (miraLAX PACKET) 17 gm PRN DAILY PRN 12/03/20 19:00 12/06/20 09:16 17 GM Potassium Chloride/Water 100 ml @ 50 mls/hr 1X ONCE 11/28/20 14:45 11/28/20 16:44 DC 11/28/20 16:20 50 MLS/HR Potassium Chloride (Klor-Con) 20 meq 1X ONCE 12/10/20 19:00 12/10/20 19:01 DC 12/10/20 18:52 20 MEQ Prochlorperazine Edisylate (Compazine) 5 mg PACU PRN PRN 12/04/20 09:30 12/05/20 09:29 DC Propofol (Diprivan) 200 mg STK-MED ONCE 12/05/20 09:29 12/05/20 09:30 DC Ringer's Solution 1,000 ml @ 100 mls/hr Q10H 12/26/20 19:30 12/28/20 04:37 100 MLS/HR Sevoflurane (Ultane) 60 ml STK-MED ONCE 12/04/20 11:14 12/04/20 11:14 DC Sodium Chloride 1,000 ml @ 400 mls/hr Q2H30M PRN 12/28/20 07:15 12/28/20 19:14 Sodium Chloride (Normal Saline Flush) 10 ml 1X PRN PRN 12/23/20 10:15 12/24/20 10:14 DC Sodium Chloride (Saline Mist Nasal) 1 hiro PRN Q1HR PRN 12/02/20 20:45 12/20/20 23:52 1 HIRO Succinylcholine Chloride (Anectine) 200 mg 1X ONCE 12/26/20 21:15 12/26/20 21:16 DC 12/26/20 19:38 200 MG Vecuronium [place] (Norcuron Bolus) 6 mg PRN 1X PRN 12/26/20 19:15 12/27/20 19:14 DC Warfarin Sodium (Coumadin) 3.75 mg DAILY 11/30/20 09:00 UNV Zolpidem Tartrate (Ambien) 5 mg PRN QHS PRN 12/05/20 20:00 12/23/20 22:11 5 MG Lab Laboratory Tests Test 12/27/20 11:10 12/27/20 11:20 12/27/20 11:23 12/27/20 14:45 Lactic Acid Level 2.1 mmol/L (0.4-2.0) 2.5 mmol/L (0.4-2.0) Ammonia 31 mcmol/L (11-34) Glucose (Fingerstick) 80 mg/dL (70-99) Test 12/28/20 00:34 12/28/20 01:32 12/28/20 06:00 12/28/20 06:27 Glucose (Fingerstick) 66 mg/dL (70-99) 91 mg/dL (70-99) 72 mg/dL (70-99) White Blood Count 13.9 x10^3/uL (4.0-11.0) Red Blood Count 2.46 x10^6/uL (4.30-5.70) Hemoglobin 7.1 g/dL (13.0-17.5) Hematocrit 22.1 % (39.0-53.0) Mean Corpuscular Volume 90 fL (79-100) Mean Corpuscular Hemoglobin 29 pg (25-35) Mean Corpuscular Hemoglobin Concent 33 g/dL (31-37) Red Cell Distribution Width 27.7 % (11.5-14.5) Platelet Count 69 x10^3/uL (140-400) Neutrophils (%) (Auto) 87 % (31-73) Lymphocytes (%) (Auto) 8 % (24-48) Monocytes (%) (Auto) 3 % (0-9) Eosinophils (%) (Auto) 1 % (0-3) Basophils (%) (Auto) 1 % (0-3) Neutrophils # (Auto) 12.4 x10^3/uL (1.8-7.7) Lymphocytes # (Auto) 1.2 x10^3/uL (1.0-4.8) Monocytes # (Auto) 0.4 x10^3/uL (0.0-1.1) Eosinophils # (Auto) 0.1 x10^3/uL (0.0-0.7) Basophils # (Auto) 0.1 x10^3/uL (0.0-0.2) Segmented Neutrophils % 70 % (35-66) Band Neutrophils % 23 % (0-9) Lymphocytes % 3 % (24-48) Monocytes % 2 % (0-10) Metamyelocytes % 2 % (0-0) Nucleated Red Blood Cells 9 Platelet Estimate Decreased (ADEQUATE) Polychromasia Slight Poikilocytosis Slight Basophilic Stippling Present Anisocytosis Mod Target Cells Occ [place] Cells Few Schistocytes Few RBC Morphology Bizarre Forms Prothrombin Time 36.3 SEC (11.7-14.0) Prothromb Time International Ratio 3.8 (0.8-1.1) Sodium Level 136 mmol/L (136-145) Potassium Level 3.4 mmol/L (3.5-5.1) Chloride Level 99 mmol/L (98-107) Carbon Dioxide Level 30 mmol/L (21-32) Anion Gap 7 (6-14) Blood Urea Nitrogen 15 mg/dL (8-26) Creatinine 3.0 mg/dL (0.7-1.3) Estimated GFR (Cockcroft-Gault) 20.1 Glucose Level 83 mg/dL (70-99) Calcium Level 7.5 mg/dL (8.5-10.1) Phosphorus Level 1.2 mg/dL (2.6-4.7) Magnesium Level 1.7 mg/dL (1.8-2.4) Albumin 1.9 g/dL (3.4-5.0) Test 12/28/20 07:30 O2 Saturation 88 % (92-99) Arterial Blood pH 7.40 (7.35-7.45) Arterial Blood pCO2 at Patient Temp 49 mmHg (35-46) Arterial Blood pO2 at Patient Temp 50 mmHg (65-108) Arterial Blood HCO3 30 mmol/L (21-28) Arterial Blood Base Excess 4 mmol/L (-3-3) FiO2 40 Results All relevant outside records, renal labs, imaging studies, telemetry/EKG's were reviewed. Justicifation of Admission Dx: Justifications for Admission: Justification of Admission Dx: N/A MERLE QUIROZ MD Dec 28, 2020 09:58
[2020-12-28] MEDS: ASPIRIN CHEWABLE 81 MG TABLET. PO SCH (10:10)
[2020-12-28] MEDS: PANTOPRAZOLE IV PUSH 40 MG VIAL. IVP SCH (10:12)
--- NOTE | 2020-12-28 11:00 | NUR ---
called Dr. Knowles office message left for him to come and see patient, request by Dr. Martinez,moderate drainage amount from right knee.
[2020-12-28] MEDS: MEROPENEM 500 MG in IV NORMAL SALINE 50ML 50 ML IV SCH (11:16)
--- NOTE | 2020-12-28 11:39 | PDOC ---
LILLIANA AZEVEDO [employer] 12/28/20 1139: CARDIO Progress Notes Date and Time Date of Service 12/28/20 Time of Evaluation 1130 Subjective Subjective: Other (intubated ) Vitals Vitals Vital Signs Date Time Temp Pulse Resp B/P (MAP) Pulse Ox O2 Delivery O2 Flow Rate FiO2 12/28/20 11:15 97 Ventilator 12/28/20 09:00 66 16 74/39 12/28/20 08:00 100.4 100.4 12/28/20 07:25 15.0 Weight Weight [ ] Input and Output Intake and Output Intake and Output 12/28/20 06:59 Intake Total 3295 ml Output Total 340 ml Balance 2955 ml Intake Oral 0 ml IV Total 1829 ml Tube Feeding 956 ml Other 510 ml Output Urine Total 0 ml Gastric Drainage Total 340 ml Laboratory Labs Laboratory Tests Test 12/27/20 14:45 12/28/20 00:34 12/28/20 01:32 12/28/20 06:00 Lactic Acid Level 2.5 mmol/L (0.4-2.0) Glucose (Fingerstick) 66 mg/dL (70-99) 91 mg/dL (70-99) White Blood Count 13.9 x10^3/uL (4.0-11.0) Red Blood Count 2.46 x10^6/uL (4.30-5.70) Hemoglobin 7.1 g/dL (13.0-17.5) Hematocrit 22.1 % (39.0-53.0) Mean Corpuscular Volume 90 fL (79-100) Mean Corpuscular Hemoglobin 29 pg (25-35) Mean Corpuscular Hemoglobin Concent 33 g/dL (31-37) Red Cell Distribution Width 27.7 % (11.5-14.5) Platelet Count 69 x10^3/uL (140-400) Neutrophils (%) (Auto) 87 % (31-73) Lymphocytes (%) (Auto) 8 % (24-48) Monocytes (%) (Auto) 3 % (0-9) Eosinophils (%) (Auto) 1 % (0-3) Basophils (%) (Auto) 1 % (0-3) Neutrophils # (Auto) 12.4 x10^3/uL (1.8-7.7) Lymphocytes # (Auto) 1.2 x10^3/uL (1.0-4.8) Monocytes # (Auto) 0.4 x10^3/uL (0.0-1.1) Eosinophils # (Auto) 0.1 x10^3/uL (0.0-0.7) Basophils # (Auto) 0.1 x10^3/uL (0.0-0.2) Segmented Neutrophils % 70 % (35-66) Band Neutrophils % 23 % (0-9) Lymphocytes % 3 % (24-48) Monocytes % 2 % (0-10) Metamyelocytes % 2 % (0-0) Nucleated Red Blood Cells 9 Platelet Estimate Decreased (ADEQUATE) Polychromasia Slight Poikilocytosis Slight Basophilic Stippling Present Anisocytosis Mod Target Cells Occ Cash Cells Few Schistocytes Few RBC Morphology Bizarre Forms Prothrombin Time 36.3 SEC (11.7-14.0) Prothromb Time International Ratio 3.8 (0.8-1.1) Sodium Level 136 mmol/L (136-145) Potassium Level 3.4 mmol/L (3.5-5.1) Chloride Level 99 mmol/L (98-107) Carbon Dioxide Level 30 mmol/L (21-32) Anion Gap 7 (6-14) Blood Urea Nitrogen 15 mg/dL (8-26) Creatinine 3.0 mg/dL (0.7-1.3) Estimated GFR (Cockcroft-Gault) 20.1 Glucose Level 83 mg/dL (70-99) Calcium Level 7.5 mg/dL (8.5-10.1) Phosphorus Level 1.2 mg/dL (2.6-4.7) Magnesium Level 1.7 mg/dL (1.8-2.4) Albumin 1.9 g/dL (3.4-5.0) Test 12/28/20 06:27 12/28/20 07:30 Glucose (Fingerstick) 72 mg/dL (70-99) O2 Saturation 88 % (92-99) Arterial Blood pH 7.40 (7.35-7.45) Arterial Blood pCO2 at Patient Temp 49 mmHg (35-46) Arterial Blood pO2 at Patient Temp 50 mmHg (65-108) Arterial Blood HCO3 30 mmol/L (21-28) Arterial Blood Base Excess 4 mmol/L (-3-3) FiO2 40 Microbiology Micro Microbiology 12/27/20 Blood Culture - Preliminary, Resulted NO GROWTH AFTER 1 DAY 12/22/20 Gram Stain Evaluation - Final, Complete 12/22/20 Respiratory Culture - Final, Complete 12/07/20 Urine Culture - Final, Complete 12/04/20 Gram Stain - Final, Complete 12/04/20 Aerobic and Anaerobic Culture - Final, Complete Review of Systems Constitutional: yes: unresponsive Ears/Nose/Throat: Yes: no symptom reported Eyes: Yes: no symptom reported Pulmonary: Yes no symptom reported Gastrointestional: Yes: no symptom reported Genitourinary: Yes: no symptom reported Musculoskeletal: Yes: no symptom reported Skin: Yes no symptom reported Psychiatric/Neurological: Yes: no symptom reported Endocrine: Yes: no symptom reported Physical Exam HEENT: Neck Supple W Full Motion Chest: Symmetric LUNGS: Other (mechanical vent ) Heart: other (intermittent V paced with underlying AFIB. rate controlled ) Abdomen: Other (soft ) Extremities: No Edema Neurology: other (sedated ) Assessment Assessment 1. Weakness, mechanical fall with right knee effusion: s/p I & D 2. Sepsis, MSSA bacteremia: no intracardiac vegetation per SOO. febrile 3. SSS, s/p PPM. generator change ([facility]) 11/01/2020. normal function 4. CAD: clinically stable 5. Permanent AFIB: rate controlled with intermittent v-pacing. 6. Coagulopathy due to warfarin; OAC held. 7. Acute on chronic diastolic CHF; echo with normal EF and WM. 8. Acute respiratory failure secondary to above; s/p intubation 9. GUERO; HD initiated 10. HTN: presently hypotensive requiring pressor support 11. HLP: on statin 12. Anemia; s/p transfusion 13. Transaminitis, coagulopathy, thrombocytopenia Recommendations Fluid offloading via HD Poor candidate for OAC given persistent anemia Discontinue ASA with anemia, coagulopathy, thrombocytopenia Hold metoprolol with hypotension Ongoing treatment of sepsis/bacteremia per ID team Lung optimization as per pulmonary Consider outpatient referral of [facility]AAO Supportive care Justicifation of Admission Dx: Justifications for Admission: Justification of Admission Dx: N/A IRMA GONZALES MD 12/28/202020: CARDIO Progress Notes Assessment Assessment Patient seen and examined. Agree with RESCUE WORKER's assessment plan. Remains intubated for acute resp failure - Continue vent management per pulmonary team. Continue fluid removal with hemodialysis for acute on chronic diastolic heart failure. Permanent atrial fibrillation rate controlled. Continue treatment of sepsis/bacteremia per ID team. SSS s/p PPM stable clinically He is poor candidate for long-term anticoagulation - consider outpatient referral for LALILLIANA GALLAGHER APRN Dec 28, 2020 11:39 IRMA GONZALES MD Dec 28, 2020 20:21
[2020-12-28] MEDS ORDERED: MAGNESIUM SULFATE 2GM 50 ML IV ONE (12:45)
--- NOTE | 2020-12-28 13:44 | PN ---
DATE: 12/28/2020 DAILY PROGRESS NOTE LOCATION: He is in room ICU, 102. SUBJECTIVE: This 85-year-old male remains hospitalized, initially presenting with MSSA sepsis from a right knee source with eventual development of renal failure requiring ongoing dialysis. He has now developed severe hypoxia and is currently mechanically ventilated. Chest x-ray is a little bit improved with removal of fluid with dialysis suggesting fluid overload as least part of this. He is now developing increasing liver function tests with climbing bilirubin. Platelet count has dropped down in the 60,000 range and an elevated bilirubin. GI is on the case to help sort this out. He was currently on 40% FiO2 and 5 of PEEP with good sats when I saw him in the ICU this morning. OBJECTIVE: VITAL SIGNS: Stable. He is afebrile. He remains on low dose norepinephrine. He is sedating on a ventilator with FiO2 down to 40% and 5 of PEEP this morning. CHEST: Reveals distant breath sounds. HEART: Regular rate and rhythm. ABDOMEN: Benign. He did have another 4 liters of fluid removed during dialysis yesterday. Nursing reports long bunch of stringy pussy material when they changed his right knee dressing this morning and Ortho has been asked to come back and reevaluate. LABORATORY DATA: This morning shows a hemoglobin of 7.1 after transfusion of the unit yesterday during dialysis. Again, platelet count has dropped from normal several days ago down to 69,000 this morning. Morning chemistries are significant for an albumin of 1.9. Again, chest x-ray done yesterday morning at 9:34, showed persistent, but improving diffuse interstitial opacities and probable consistent with some congestive heart failure. IMPRESSION: 1. Acute respiratory failure, on mechanical ventilation, fluid overload versus acute respiratory distress syndrome, favor the first. 2. Elevated liver function tests with decreasing platelet count and increasing bilirubin, elevated INR, not sure if we can put this all off on passive congestion, but we will defer to GI. 3. Methicillin-susceptible Staphylococcus aureus sepsis from right knee source with some drainage there this morning with Ortho to reevaluate. 4. Acute renal failure with ongoing dialysis. PLAN: Repeat vitamin K, although I cannot see where he got it yesterday. Follow labs. Ongoing fluid removal. Mechanical ventilation. Help of all consultants appreciated. OSMANI/SAGE DR: Danielle TID: [id number]
[2020-12-28] MEDS ORDERED: POTASSIUM PHOSPHATE DIBASIC 15 MMOL in IV NS 100 ML IV ONE (14:00)
--- NOTE | 2020-12-28 15:35 | RAD ---
And EXAM: XR CHEST 1V 12/28/2020 2:36 PM CLINICAL INDICATION: Infiltrate COMPARISON: Chest radiograph 12/27/2020 TECHNIQUE: AP upright view of the chest. The endotracheal tube terminates approximately 3.3 cm above the jairo, unchanged. Nasogastric tube courses below the diaphragm and terminates out of view. Righ t IJ dialysis catheter tip and right IJ central venous catheter project over the superior vena cava, unchanged. A dual-lead pacemaker is unchanged. Heart appears enlarged. Patchy basilar predominant ruthie ateral airspace opacities are unchanged to slightly increased. There are small bilateral pleural effu sions. No pneumothorax. IMPRESSION: 1. Unchanged lines and tubes. 2. Unchanged to slightly increased patchy bilateral airspace opacities. 3. Unchanged small pleural effusions. Electronically signed by: Christy Concepcion MD (12/28/2020 3:32 PM) [id number]
--- NOTE | 2020-12-28 20:02 | PDOC ---
PROGRESS NOTES Date of Service DATE: 12/28/20 TIME: 19:59 Subjective Subjective Problems overnight: Patient intubated and sedated, nurse Cece reported a large blood clot expressed from his central knee wound and some cottage cheese looking drainage to follow Objective Vital Signs Vital Signs Date Time Temp Pulse Resp B/P (MAP) Pulse Ox O2 Delivery O2 Flow Rate FiO2 12/28/20 17:32 95 Ventilator 12/28/20 17:00 75 17 100/51 12/28/20 16:00 99.4 99.4 12/28/20 07:25 15.0 Physical Exam Right knee has no effusion and arthroscopic portals are well-healed. The central incision from debridement of his bursa has a small opening and some clotted blood as well as fibrinous exudate was expressed. There is really no surrounding redness and no purulent drainage observed really only hematoma and the fibrinous exudate again from the prepatellar bursa area which was redressed Labs Laboratory Tests Test 12/26/20 20:30 12/27/20 04:45 12/27/20 04:50 12/27/20 07:25 O2 Saturation 99 % (92-99) 98 % (92-99) Arterial Blood pH 7.26 (7.35-7.45) 7.49 (7.35-7.45) Arterial Blood pCO2 at Patient Temp 62 mmHg (35-46) 34 mmHg (35-46) Arterial Blood pO2 at Patient Temp 156 mmHg (65-108) 105 mmHg (65-108) Arterial Blood HCO3 27 mmol/L (21-28) 25 mmol/L (21-28) Arterial Blood Base Excess 0 mmol/L (-3-3) 2 mmol/L (-3-3) FiO2 100 60 White Blood Count 14.7 x10^3/uL (4.0-11.0) Red Blood Count 2.21 x10^6/uL (4.30-5.70) Hemoglobin 6.8 g/dL (13.0-17.5) Hematocrit 21.2 % (39.0-53.0) Mean Corpuscular Volume 96 fL (79-100) Mean Corpuscular Hemoglobin 31 pg (25-35) Mean Corpuscular Hemoglobin Concent 32 g/dL (31-37) Red Cell Distribution Width 22.3 % (11.5-14.5) Platelet Count 108 x10^3/uL (140-400) Sodium Level 136 mmol/L (136-145) Potassium Level 4.0 mmol/L (3.5-5.1) Chloride Level 98 mmol/L (98-107) Carbon Dioxide Level 26 mmol/L (21-32) Anion Gap 12 (6-14) Blood Urea Nitrogen 21 mg/dL (8-26) Creatinine 3.5 mg/dL (0.7-1.3) Estimated GFR (Cockcroft-Gault) 16.8 Glucose Level 51 mg/dL (70-99) Calcium Level 7.5 mg/dL (8.5-10.1) Phosphorus Level 2.8 mg/dL (2.6-4.7) Magnesium Level 2.0 mg/dL (1.8-2.4) Total Bilirubin 3.8 mg/dL (0.2-1.0) Direct Bilirubin 1.6 mg/dL (0.0-0.2) Aspartate Amino Transf (AST/SGOT) 1815 U/L (15-37) Alanine Aminotransferase (ALT/SGPT) 220 U/L (16-63) Alkaline Phosphatase 160 U/L (46-116) Total Protein 6.6 g/dL (6.4-8.2) Albumin 1.7 g/dL (3.4-5.0) Test 12/27/20 07:53 12/27/20 08:35 12/27/20 11:10 12/27/20 11:20 Glucose (Fingerstick) 99 mg/dL (70-99) Prothrombin Time 40.0 SEC (11.7-14.0) Prothromb Time International Ratio 4.3 (0.8-1.1) D-Dimer (Stephanie) > 20.00 ug/mlFEU Lactic Acid Level 2.1 mmol/L (0.4-2.0) Ammonia 31 mcmol/L (11-34) Test 12/27/20 11:23 12/27/20 14:45 12/28/20 00:34 12/28/20 01:32 Glucose (Fingerstick) 80 mg/dL (70-99) 66 mg/dL (70-99) 91 mg/dL (70-99) Lactic Acid Level 2.5 mmol/L (0.4-2.0) Test 12/28/20 06:00 12/28/20 06:27 12/28/20 07:30 12/28/20 15:22 White Blood Count 13.9 x10^3/uL (4.0-11.0) Red Blood Count 2.46 x10^6/uL (4.30-5.70) Hemoglobin 7.1 g/dL (13.0-17.5) Hematocrit 22.1 % (39.0-53.0) Mean Corpuscular Volume 90 fL (79-100) Mean Corpuscular Hemoglobin 29 pg (25-35) Mean Corpuscular Hemoglobin Concent 33 g/dL (31-37) Red Cell Distribution Width 27.7 % (11.5-14.5) Platelet Count 69 x10^3/uL (140-400) Neutrophils (%) (Auto) 87 % (31-73) Lymphocytes (%) (Auto) 8 % (24-48) Monocytes (%) (Auto) 3 % (0-9) Eosinophils (%) (Auto) 1 % (0-3) Basophils (%) (Auto) 1 % (0-3) Neutrophils # (Auto) 12.4 x10^3/uL (1.8-7.7) Lymphocytes # (Auto) 1.2 x10^3/uL (1.0-4.8) Monocytes # (Auto) 0.4 x10^3/uL (0.0-1.1) Eosinophils # (Auto) 0.1 x10^3/uL (0.0-0.7) Basophils # (Auto) 0.1 x10^3/uL (0.0-0.2) Segmented Neutrophils % 70 % (35-66) Band Neutrophils % 23 % (0-9) Lymphocytes % 3 % (24-48) Monocytes % 2 % (0-10) Metamyelocytes % 2 % (0-0) Nucleated Red Blood Cells 9 Platelet Estimate Decreased (ADEQUATE) Polychromasia Slight Poikilocytosis Slight Basophilic Stippling Present Anisocytosis Mod Target Cells Occ Daron Cells Few Schistocytes Few RBC Morphology Bizarre Forms Prothrombin Time 36.3 SEC (11.7-14.0) Prothromb Time International Ratio 3.8 (0.8-1.1) Sodium Level 136 mmol/L (136-145) Potassium Level 3.4 mmol/L (3.5-5.1) Chloride Level 99 mmol/L (98-107) Carbon Dioxide Level 30 mmol/L (21-32) Anion Gap 7 (6-14) Blood Urea Nitrogen 15 mg/dL (8-26) Creatinine 3.0 mg/dL (0.7-1.3) Estimated GFR (Cockcroft-Gault) 20.1 Glucose Level 83 mg/dL (70-99) Calcium Level 7.5 mg/dL (8.5-10.1) Phosphorus Level 1.2 mg/dL (2.6-4.7) Magnesium Level 1.7 mg/dL (1.8-2.4) Albumin 1.9 g/dL (3.4-5.0) Glucose (Fingerstick) 72 mg/dL (70-99) 75 mg/dL (70-99) O2 Saturation 88 % (92-99) Arterial Blood pH 7.40 (7.35-7.45) Arterial Blood pCO2 at Patient Temp 49 mmHg (35-46) Arterial Blood pO2 at Patient Temp 50 mmHg (65-108) Arterial Blood HCO3 30 mmol/L (21-28) Arterial Blood Base Excess 4 mmol/L (-3-3) FiO2 40 Laboratory Tests Test 12/28/20 00:34 12/28/20 01:32 12/28/20 06:00 12/28/20 06:27 Glucose (Fingerstick) 66 mg/dL (70-99) 91 mg/dL (70-99) 72 mg/dL (70-99) White Blood Count 13.9 x10^3/uL (4.0-11.0) Red Blood Count 2.46 x10^6/uL (4.30-5.70) Hemoglobin 7.1 g/dL (13.0-17.5) Hematocrit 22.1 % (39.0-53.0) Mean Corpuscular Volume 90 fL (79-100) Mean Corpuscular Hemoglobin 29 pg (25-35) Mean Corpuscular Hemoglobin Concent 33 g/dL (31-37) Red Cell Distribution Width 27.7 % (11.5-14.5) Platelet Count 69 x10^3/uL (140-400) Neutrophils (%) (Auto) 87 % (31-73) Lymphocytes (%) (Auto) 8 % (24-48) Monocytes (%) (Auto) 3 % (0-9) Eosinophils (%) (Auto) 1 % (0-3) Basophils (%) (Auto) 1 % (0-3) Neutrophils # (Auto) 12.4 x10^3/uL (1.8-7.7) Lymphocytes # (Auto) 1.2 x10^3/uL (1.0-4.8) Monocytes # (Auto) 0.4 x10^3/uL (0.0-1.1) Eosinophils # (Auto) 0.1 x10^3/uL (0.0-0.7) Basophils # (Auto) 0.1 x10^3/uL (0.0-0.2) Segmented Neutrophils % 70 % (35-66) Band Neutrophils % 23 % (0-9) Lymphocytes % 3 % (24-48) Monocytes % 2 % (0-10) Metamyelocytes % 2 % (0-0) Nucleated Red Blood Cells 9 Platelet Estimate Decreased (ADEQUATE) Polychromasia Slight Poikilocytosis Slight Basophilic Stippling Present Anisocytosis Mod Target Cells Occ Daron Cells Few Schistocytes Few RBC Morphology Bizarre Forms Prothrombin Time 36.3 SEC (11.7-14.0) Prothromb Time International Ratio 3.8 (0.8-1.1) Sodium Level 136 mmol/L (136-145) Potassium Level 3.4 mmol/L (3.5-5.1) Chloride Level 99 mmol/L (98-107) Carbon Dioxide Level 30 mmol/L (21-32) Anion Gap 7 (6-14) Blood Urea Nitrogen 15 mg/dL (8-26) Creatinine 3.0 mg/dL (0.7-1.3) Estimated GFR (Cockcroft-Gault) 20.1 Glucose Level 83 mg/dL (70-99) Calcium Level 7.5 mg/dL (8.5-10.1) Phosphorus Level 1.2 mg/dL (2.6-4.7) Magnesium Level 1.7 mg/dL (1.8-2.4) Albumin 1.9 g/dL (3.4-5.0) Test 12/28/20 07:30 12/28/20 15:22 O2 Saturation 88 % (92-99) Arterial Blood pH 7.40 (7.35-7.45) Arterial Blood pCO2 at Patient Temp 49 mmHg (35-46) Arterial Blood pO2 at Patient Temp 50 mmHg (65-108) Arterial Blood HCO3 30 mmol/L (21-28) Arterial Blood Base Excess 4 mmol/L (-3-3) FiO2 40 Glucose (Fingerstick) 75 mg/dL (70-99) Assessment Assessment POD#right knee arthroscopy and debridement of septic prepatellar bursa Plan Plan of Care Continue medical supportive care Maintain dressings on right knee, no sign of current infection either in the knee joint as there was no effusion and none really in the prepatellar bursa as only hematoma and fibrinous exudate was expressed. Continued observation no surgical indication Justicifation of Admission Dx: Justifications for Admission: Justification of Admission Dx: N/A ARMINDA BUTLER MD Dec 28, 2020 20:02
[2020-12-28] MEDS: ACETAMINOPHEN 325 MG TABLET. PO SCH (22:16)
[2020-12-28] MEDS: ATORVASTATIN CALCIUM 20 MG TABLET PO SCH (22:16)
[2020-12-28] MEDS: EPOETIN ALFA-EPBX for ESRD 20,000 UNIT/ML VIAL. SQ SCH (22:16)
[2020-12-28] MEDS: MIDAZOLAM 100mg/100ml NS BAG 100 ML IV PRN (22:31)
[2020-12-29] VITALS (30 sets, daily range): BP systolic 90–142; BP diastolic 44–72
[2020-12-29 05:30] LABS: BASO # 0.1 x10^3/uL (0.0-0.2); BASO % 1 % (0-3); EOS # 0.2 x10^3/uL (0.0-0.7); EOS % 1 % (0-3); HEMATOCRIT 21.1 % (39.0-53.0); LYMPH # 1.1 x10^3/uL (1.0-4.8); LYMPH % 8 % (24-48); MEAN CORPUSCULAR HEMOGLOBIN 29 pg (25-35); MEAN CORPUSCULAR HGB CONC 32 g/dL (31-37); MEAN CORPUSCULAR VOLUME 90 fL (79-100); MONO # 0.7 x10^3/uL (0.0-1.1); MONO % 5 % (0-9); NEUT # 12.7 x10^3/uL (1.8-7.7); NEUT % 86 % (31-73); PLATELET COUNT 65 x10^3/uL (140-400); RED BLOOD COUNT 2.33 x10^6/uL (4.30-5.70); RED CELL DISTRIBUTION WIDTH 28.7 % (11.5-14.5); WHITE BLOOD COUNT 14.7 x10^3/uL (4.0-11.0)
[2020-12-29 05:45] LABS: ALBUMIN 2.2 g/dL (3.4-5.0); ALBUMIN/GLOBULIN RATIO 0.6 (1.0-1.7); CALCIUM 7.4 mg/dL (8.5-10.1); CREATININE 2.5 mg/dL (0.7-1.3); GFR 24.8; MAGNESIUM 2.2 mg/dL (1.8-2.4); PHOSPHORUS 1.5 mg/dL (2.6-4.7); POTASSIUM 4.1 mmol/L (3.5-5.1); PROTHROMBIN TIME PATIENT 26.9 SEC (11.7-14.0); TOTAL BILIRUBIN 7.9 mg/dL (0.2-1.0); TOTAL PROTEIN 6.2 g/dL (6.4-8.2)
[2020-12-29] MEDS: NOREPINEPHRINE VIAL 8 MG in IV DEXTROSE 5% 250 ML IV PRN (05:57)
[2020-12-29 06:00] LABS: HEMOGLOBIN 6.8 g/dL (13.0-17.5)
[2020-12-29] MEDS: IV RINGERS,LACTATED 1000ML 1,000 ML IV SCH (07:32)
[2020-12-29 08:00] LABS: BASE EXCESS ABG 2 mmol/L (-3-3); HCO3 ABG 28 mmol/L (21-28); PCO2 ABG 49 mmHg (35-46); PO2 ABG 56 mmHg (65-108); SAT O2 ABG 89 % (92-99)
[2020-12-29 08:21] LABS: FIO2 ABG 50/VENT
[2020-12-29] MEDS: PANTOPRAZOLE IV PUSH 40 MG VIAL. IVP SCH (08:23)
--- NOTE | 2020-12-29 08:40 | PDOC ---
Infectious Disease Note Subjective: Subjective Patient remains intubated/sedated on pressors T-max 100.4 d/w RN Vital Signs: Vital Signs Vital Signs Date Time Temp Pulse Resp B/P (MAP) Pulse Ox O2 Delivery O2 Flow Rate FiO2 12/29/20 07:04 98 Ventilator 12/29/20 06:00 72 16 114/52 12/29/20 04:00 99.8 99.8 12/28/20 07:25 15.0 Physical Exam: PHYSICAL EXAM GENERAL: Intubated/sedated HEENT: ETT OGT in place NECK: Right IJ placed , chest wall has right HDC looks clean LUNGS: Decreased HEART: S1, S2, systolic murmur present. Pacemaker site looks okay ABDOMEN: Soft, nontender, nondistended. EXTREMITIES: Right knee prepatellar swelling, mild erythema , no drainage, cool,mottled digits DERMATOLOGIC: No generalized rash, multiple purpuric lesions both feet and upper extremity.? Embolic NEUROLOGIC: Unable to assess Medications: Inpatient Meds: Medications reviewed. Labs: Lab Laboratory Tests Test 12/28/20 15:22 12/28/20 23:59 12/29/20 04:55 12/29/20 07:15 Glucose (Fingerstick) 75 mg/dL (70-99) 77 mg/dL (70-99) White Blood Count 14.7 x10^3/uL (4.0-11.0) Red Blood Count 2.33 x10^6/uL (4.30-5.70) Hemoglobin 6.8 g/dL (13.0-17.5) Hematocrit 21.1 % (39.0-53.0) Mean Corpuscular Volume 90 fL (79-100) Mean Corpuscular Hemoglobin 29 pg (25-35) Mean Corpuscular Hemoglobin Concent 32 g/dL (31-37) Red Cell Distribution Width 28.7 % (11.5-14.5) Platelet Count 65 x10^3/uL (140-400) Neutrophils (%) (Auto) 86 % (31-73) Lymphocytes (%) (Auto) 8 % (24-48) Monocytes (%) (Auto) 5 % (0-9) Eosinophils (%) (Auto) 1 % (0-3) Basophils (%) (Auto) 1 % (0-3) Neutrophils # (Auto) 12.7 x10^3/uL (1.8-7.7) Lymphocytes # (Auto) 1.1 x10^3/uL (1.0-4.8) Monocytes # (Auto) 0.7 x10^3/uL (0.0-1.1) Eosinophils # (Auto) 0.2 x10^3/uL (0.0-0.7) Basophils # (Auto) 0.1 x10^3/uL (0.0-0.2) Prothrombin Time 26.9 SEC (11.7-14.0) Prothromb Time International Ratio 2.5 (0.8-1.1) Sodium Level 136 mmol/L (136-145) Potassium Level 4.1 mmol/L (3.5-5.1) Chloride Level 99 mmol/L (98-107) Carbon Dioxide Level 29 mmol/L (21-32) Anion Gap 8 (6-14) Blood Urea Nitrogen 13 mg/dL (8-26) Creatinine 2.5 mg/dL (0.7-1.3) Estimated GFR (Cockcroft-Gault) 24.8 BUN/Creatinine Ratio 5 (6-20) Glucose Level 90 mg/dL (70-99) Calcium Level 7.4 mg/dL (8.5-10.1) Phosphorus Level 1.5 mg/dL (2.6-4.7) Magnesium Level 2.2 mg/dL (1.8-2.4) Total Bilirubin 7.9 mg/dL (0.2-1.0) Aspartate Amino Transf (AST/SGOT) 579 U/L (15-37) Alanine Aminotransferase (ALT/SGPT) 71 U/L (16-63) Alkaline Phosphatase 156 U/L (46-116) Total Protein 6.2 g/dL (6.4-8.2) Albumin 2.2 g/dL (3.4-5.0) Albumin/Globulin Ratio 0.6 (1.0-1.7) O2 Saturation 89 % (92-99) Arterial Blood pH 7.36 (7.35-7.45) Arterial Blood pCO2 at Patient Temp 49 mmHg (35-46) Arterial Blood pO2 at Patient Temp 56 mmHg (65-108) Arterial Blood HCO3 28 mmol/L (21-28) Arterial Blood Base Excess 2 mmol/L (-3-3) FiO2 50/vent Micro Chest x-ray IMPRESSION: 1. Increase in diffuse mixed interstitial and alveolar infiltrate and small pleural effusions. 2. Stable cardiomegaly and cardiac pacemaker. 3. Right internal jugular catheter with the tip overlying expected position of the superior cavoatrial junction. Objective: Assessment: Patient with prolonged hospitalization and complicated medical course now with multiorgan failure Persistent methicillin sensitive staph aureus bacteremia 4 of 4 bottles present on admission 11/28/2020, November 30 and December 02 History of PPM.H/O recent battery exchange. SOO negative for vegetation or thrombus [place] joint MSSA septic arthritis status post synovial aspirate WBC 30,000 RBC 66,000 Status post irrigation debridement of right knee joint and prepatellar bursa on December 04, 2020 Cultures positive for MSSA Sepsis Leukocytosis and lactic acidosis Thrombocytopenia acute Respiratory failure status post intubation on 12/26/2020/appears multifactorial ARDS D Dimer elevated Encephalopathy Anemia status post PRBC 12/27/2020 History of fall present on admission. GUERO on HD urine eosinophil negative Abnormal LFTs likely shock liver Encephalopathy appears metabolic History of atrial fibrillation. CHF status post PPM Hypertension. Coagulopathy on admission Nausea and vomiting couple of days ago which had resolved Plan: Plan of Care Continue daptomycin and meropenem Monitor labs and cultures, blood culture remain negative, UA and urine culture not done as patient is anuric Wound care as directed by orthopedics Overall long-term prognosis is very poor Patient is currently full code Consider palliative care Discussed with nursing staff ELIZABETH BALLESTEROS MD Dec 29, 2020 08:40
--- NOTE | 2020-12-29 09:09 | NUR ---
SS following up with discharge planning. SS reviewed pt chart and discussed with pt RN. Pt is currently on the vent at 50%. COVID19 negative. Pt on IV Daptomycin and IV Meropenem. Pt on Fentanyl, Versed, and Levophed. Hemodialysis. Pt getting one unit of blood today. SS will continue to follow for discharge planning.
--- NOTE | 2020-12-29 09:10 | PDOC ---
PULMONARY PROGRESS NOTES DATE: 12/29/20 TIME: 09:10 Subjective Patient currently on Levophed, remains critically ill Rate of 16 tidal volume 550% FiO2 5 of PEEP Vitals Vital Signs Date Time Temp Pulse Resp B/P (MAP) Pulse Ox O2 Delivery O2 Flow Rate FiO2 12/29/20 09:00 64 16 108/62 98 Ventilator 12/29/20 08:00 99.3 99.3 12/28/20 07:25 15.0 Lungs: Clear Cardiovascular: S1, S2 Abdomen: Soft Extremities: Other (Edema) Skin: Warm Labs Laboratory Tests Test 12/27/20 11:10 12/27/20 11:20 12/27/20 11:23 12/27/20 14:45 Lactic Acid Level 2.1 mmol/L (0.4-2.0) 2.5 mmol/L (0.4-2.0) Ammonia 31 mcmol/L (11-34) Glucose (Fingerstick) 80 mg/dL (70-99) Test 12/28/20 00:34 12/28/20 01:32 12/28/20 06:00 12/28/20 06:27 Glucose (Fingerstick) 66 mg/dL (70-99) 91 mg/dL (70-99) 72 mg/dL (70-99) White Blood Count 13.9 x10^3/uL (4.0-11.0) Red Blood Count 2.46 x10^6/uL (4.30-5.70) Hemoglobin 7.1 g/dL (13.0-17.5) Hematocrit 22.1 % (39.0-53.0) Mean Corpuscular Volume 90 fL (79-100) Mean Corpuscular Hemoglobin 29 pg (25-35) Mean Corpuscular Hemoglobin Concent 33 g/dL (31-37) Red Cell Distribution Width 27.7 % (11.5-14.5) Platelet Count 69 x10^3/uL (140-400) Neutrophils (%) (Auto) 87 % (31-73) Lymphocytes (%) (Auto) 8 % (24-48) Monocytes (%) (Auto) 3 % (0-9) Eosinophils (%) (Auto) 1 % (0-3) Basophils (%) (Auto) 1 % (0-3) Neutrophils # (Auto) 12.4 x10^3/uL (1.8-7.7) Lymphocytes # (Auto) 1.2 x10^3/uL (1.0-4.8) Monocytes # (Auto) 0.4 x10^3/uL (0.0-1.1) Eosinophils # (Auto) 0.1 x10^3/uL (0.0-0.7) Basophils # (Auto) 0.1 x10^3/uL (0.0-0.2) Segmented Neutrophils % 70 % (35-66) Band Neutrophils % 23 % (0-9) Lymphocytes % 3 % (24-48) Monocytes % 2 % (0-10) Metamyelocytes % 2 % (0-0) Nucleated Red Blood Cells 9 Platelet Estimate Decreased (ADEQUATE) Polychromasia Slight Poikilocytosis Slight Basophilic Stippling Present Anisocytosis Mod Target Cells Occ [place] Cells Few Schistocytes Few RBC Morphology Bizarre Forms Prothrombin Time 36.3 SEC (11.7-14.0) Prothromb Time International Ratio 3.8 (0.8-1.1) Sodium Level 136 mmol/L (136-145) Potassium Level 3.4 mmol/L (3.5-5.1) Chloride Level 99 mmol/L (98-107) Carbon Dioxide Level 30 mmol/L (21-32) Anion Gap 7 (6-14) Blood Urea Nitrogen 15 mg/dL (8-26) Creatinine 3.0 mg/dL (0.7-1.3) Estimated GFR (Cockcroft-Gault) 20.1 Glucose Level 83 mg/dL (70-99) Calcium Level 7.5 mg/dL (8.5-10.1) Phosphorus Level 1.2 mg/dL (2.6-4.7) Magnesium Level 1.7 mg/dL (1.8-2.4) Albumin 1.9 g/dL (3.4-5.0) Test 12/28/20 07:30 12/28/20 15:22 12/28/20 23:59 12/29/20 04:55 O2 Saturation 88 % (92-99) Arterial Blood pH 7.40 (7.35-7.45) Arterial Blood pCO2 at Patient Temp 49 mmHg (35-46) Arterial Blood pO2 at Patient Temp 50 mmHg (65-108) Arterial Blood HCO3 30 mmol/L (21-28) Arterial Blood Base Excess 4 mmol/L (-3-3) FiO2 40 Glucose (Fingerstick) 75 mg/dL (70-99) 77 mg/dL (70-99) White Blood Count 14.7 x10^3/uL (4.0-11.0) Red Blood Count 2.33 x10^6/uL (4.30-5.70) Hemoglobin 6.8 g/dL (13.0-17.5) Hematocrit 21.1 % (39.0-53.0) Mean Corpuscular Volume 90 fL (79-100) Mean Corpuscular Hemoglobin 29 pg (25-35) Mean Corpuscular Hemoglobin Concent 32 g/dL (31-37) Red Cell Distribution Width 28.7 % (11.5-14.5) Platelet Count 65 x10^3/uL (140-400) Neutrophils (%) (Auto) 86 % (31-73) Lymphocytes (%) (Auto) 8 % (24-48) Monocytes (%) (Auto) 5 % (0-9) Eosinophils (%) (Auto) 1 % (0-3) Basophils (%) (Auto) 1 % (0-3) Neutrophils # (Auto) 12.7 x10^3/uL (1.8-7.7) Lymphocytes # (Auto) 1.1 x10^3/uL (1.0-4.8) Monocytes # (Auto) 0.7 x10^3/uL (0.0-1.1) Eosinophils # (Auto) 0.2 x10^3/uL (0.0-0.7) Basophils # (Auto) 0.1 x10^3/uL (0.0-0.2) Prothrombin Time 26.9 SEC (11.7-14.0) Prothromb Time International Ratio 2.5 (0.8-1.1) Sodium Level 136 mmol/L (136-145) Potassium Level 4.1 mmol/L (3.5-5.1) Chloride Level 99 mmol/L (98-107) Carbon Dioxide Level 29 mmol/L (21-32) Anion Gap 8 (6-14) Blood Urea Nitrogen 13 mg/dL (8-26) Creatinine 2.5 mg/dL (0.7-1.3) Estimated GFR (Cockcroft-Gault) 24.8 BUN/Creatinine Ratio 5 (6-20) Glucose Level 90 mg/dL (70-99) Calcium Level 7.4 mg/dL (8.5-10.1) Phosphorus Level 1.5 mg/dL (2.6-4.7) Magnesium Level 2.2 mg/dL (1.8-2.4) Total Bilirubin 7.9 mg/dL (0.2-1.0) Aspartate Amino Transf (AST/SGOT) 579 U/L (15-37) Alanine Aminotransferase (ALT/SGPT) 71 U/L (16-63) Alkaline Phosphatase 156 U/L (46-116) Total Protein 6.2 g/dL (6.4-8.2) Albumin 2.2 g/dL (3.4-5.0) Albumin/Globulin Ratio 0.6 (1.0-1.7) Test 12/29/20 07:15 O2 Saturation 89 % (92-99) Arterial Blood pH 7.36 (7.35-7.45) Arterial Blood pCO2 at Patient Temp 49 mmHg (35-46) Arterial Blood pO2 at Patient Temp 56 mmHg (65-108) Arterial Blood HCO3 28 mmol/L (21-28) Arterial Blood Base Excess 2 mmol/L (-3-3) FiO2 50/vent Laboratory Tests Test 12/28/20 15:22 12/28/20 23:59 12/29/20 04:55 12/29/20 07:15 Glucose (Fingerstick) 75 mg/dL (70-99) 77 mg/dL (70-99) White Blood Count 14.7 x10^3/uL (4.0-11.0) Red Blood Count 2.33 x10^6/uL (4.30-5.70) Hemoglobin 6.8 g/dL (13.0-17.5) Hematocrit 21.1 % (39.0-53.0) Mean Corpuscular Volume 90 fL (79-100) Mean Corpuscular Hemoglobin 29 pg (25-35) Mean Corpuscular Hemoglobin Concent 32 g/dL (31-37) Red Cell Distribution Width 28.7 % (11.5-14.5) Platelet Count 65 x10^3/uL (140-400) Neutrophils (%) (Auto) 86 % (31-73) Lymphocytes (%) (Auto) 8 % (24-48) Monocytes (%) (Auto) 5 % (0-9) Eosinophils (%) (Auto) 1 % (0-3) Basophils (%) (Auto) 1 % (0-3) Neutrophils # (Auto) 12.7 x10^3/uL (1.8-7.7) Lymphocytes # (Auto) 1.1 x10^3/uL (1.0-4.8) Monocytes # (Auto) 0.7 x10^3/uL (0.0-1.1) Eosinophils # (Auto) 0.2 x10^3/uL (0.0-0.7) Basophils # (Auto) 0.1 x10^3/uL (0.0-0.2) Prothrombin Time 26.9 SEC (11.7-14.0) Prothromb Time International Ratio 2.5 (0.8-1.1) Sodium Level 136 mmol/L (136-145) Potassium Level 4.1 mmol/L (3.5-5.1) Chloride Level 99 mmol/L (98-107) Carbon Dioxide Level 29 mmol/L (21-32) Anion Gap 8 (6-14) Blood Urea Nitrogen 13 mg/dL (8-26) Creatinine 2.5 mg/dL (0.7-1.3) Estimated GFR (Cockcroft-Gault) 24.8 BUN/Creatinine Ratio 5 (6-20) Glucose Level 90 mg/dL (70-99) Calcium Level 7.4 mg/dL (8.5-10.1) Phosphorus Level 1.5 mg/dL (2.6-4.7) Magnesium Level 2.2 mg/dL (1.8-2.4) Total Bilirubin 7.9 mg/dL (0.2-1.0) Aspartate Amino Transf (AST/SGOT) 579 U/L (15-37) Alanine Aminotransferase (ALT/SGPT) 71 U/L (16-63) Alkaline Phosphatase 156 U/L (46-116) Total Protein 6.2 g/dL (6.4-8.2) Albumin 2.2 g/dL (3.4-5.0) Albumin/Globulin Ratio 0.6 (1.0-1.7) O2 Saturation 89 % (92-99) Arterial Blood pH 7.36 (7.35-7.45) Arterial Blood pCO2 at Patient Temp 49 mmHg (35-46) Arterial Blood pO2 at Patient Temp 56 mmHg (65-108) Arterial Blood HCO3 28 mmol/L (21-28) Arterial Blood Base Excess 2 mmol/L (-3-3) FiO2 50/vent Medications Active Scripts Medications Dose Route/Sig Max Daily Dose Days Date Category Nafcillin 2 Gm/ 100 Ml Inj (Nafcillin In Dextrose,Iso-Osm) 2 Gm/100 Ml Froz.piggy 2 Gm IV Q4HRS 30 12/16/20 Rx Acetaminophen 325 Mg Tablet 650 Mg PO QHS 11/28/20 Reported Aspirin 81 Mg Tab.chew 1 Tab PO DAILY 11/01/20 Reported Men's Multivitamin Tablet (Multivit-Min/Folic/Vit K/Lycop) 1 Each Tablet 1 Each PO DAILY 07/19/20 Reported Pravastatin Sodium 80 Mg Tablet 1 Tab PO DAILY 03/02/19 Reported Lasix (Furosemide) 40 Mg Tablet 1 Tab PO DAILY 01/11/14 Reported Colace (Docusate Sodium) 100 Mg Capsule 1 Cap PO PRN BID PRN 01/11/14 Reported Impression . IMPRESSION: 1. Acute hypoxemic respiratory failure, multifactorial. 2. Abnormal x-ray compatible with acute respiratory distress syndrome, possible pneumonia. 3. Persistent methicillin-sensitive Staph aureus bacteremia, present upon admission. 4. Right [place] joint methicillin-susceptible Staphylococcus aureus septic arthritis. 5. Metabolic toxic encephalopathy. 6. Atrial fibrillation. 7. Hypertension. 8. Liver failure. 9. Severe protein malnutrition, present upon admission. 10. Acute renal failure. 11. Septic shock Plan . 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 Antibiotics per ID Hemoglobin 7.1 Critical care time of 30 minutes with no overlap Updated 12/27 Events of the yesterday no Patient deteriorated needing intubation, family wishes to proceed with aggressive care Continue assist-control ventilation adjust minute ventilation Currently undergoing hemodialysis, negative fluid balance if possible Transfuse Labs and chest x-ray reviewed Antibiotics per ID Case discussed yesterday with ANGELITO Guillaume MD Dec 29, 2020 09:10
--- NOTE | 2020-12-29 09:17 | PDOC ---
DATE OF SERVICE DATE: 12/29/20 TIME: 09:16 SUBJECTIVE ROS Remains intubated OBJECTIVE Vital Signs Vital Signs Date Time Temp Pulse Resp B/P (MAP) Pulse Ox O2 Delivery O2 Flow Rate FiO2 12/29/20 09:00 64 16 108/62 98 Ventilator 12/29/20 08:00 99.3 99.3 12/28/20 07:25 15.0 I & 0 Intake and Output 12/29/20 07:00 Intake Total 2939 ml Output Total 130 ml Balance 2809 ml Intake Oral 0 ml IV Total 2444 ml Tube Feeding 385 ml Other 110 ml Output Urine Total 0 ml Gastric Drainage Total 130 ml PHYSICAL EXAM Physical Exam GENERAL: Intubated/sedated HEENT: Normocephalic, atraumatic. Anicteric. NECK: right HDC LUNGS: Decreased at bases HEART: S1, S2, systolic murmur present. Pacemaker + ABDOMEN: Soft, nontender, nondistended. EXTREMITIES: Right knee prepatellar swelling, erythema and warmth are improving cool,mottled digits DERMATOLOGIC: No generalized rash NEUROLOGIC: Unable to assess, sedated Susan Mejia DIAGNOSIS/ASSESSMENT Assessment & Plan GUERO - ATN 2/ 2 Hypotension/ Sepsis Anuric- Requiring Dialysis 1st on 12/12 ; Dialysis today mainly for UF - 2-3 as tolerated, IV Albumin Prn . Discussed treatment plan with Jeanette Davis Renal Recovery supportive care , strict I/O . DC IVF Access Currently has Temp HDC . HypoKalemia - K normal HypoPhos Rplace IV. Dw RN HypoMg- replaced yesterday, Normal today Acute hypoxemic respiratory failure, multifactorial- Transferred to ICU, Intubated, On MV . Abnormal x-ray compatible with acute respiratory distress syndrome, possible pneumonia. Anemia required PRBC. continue LIDIA . Recent PRBC 12/27 . Hgb < 7 today,defer to primary Persistent methicillin sensitive staph aureus bacteremia 4 of 4 bottles present on admission 11/28/2020 .History of PPM.H/O recent battery exchange. SOO negative for vegetation or thrombus Rt [place] joint MSSA septic arthritis S/P synovial aspirate ,Status post irrigation debridement of right knee joint and prepatellar bursa on December 04, 2020.Cultures positive for MSSA History of PPM.H/O recent battery exchange. History of atrial fibrillation. COMMENT/RELEVANT DATA Meds Current Medications Medications (Trade) Dose Ordered Sig/Gia Start Time Stop Time Status Last Admin Dose Admin Acetaminophen (Tylenol) 650 mg QHS 11/29/20 21:00 12/28/20 22:16 650 MG Acetaminophen/ Hydrocodone Bitart (Lortab 10/325) 1 tab PRN Q4HRS PRN 12/05/20 20:00 12/24/20 14:02 1 TAB Acetaminophen/ Hydrocodone Bitart (Lortab 5/325) 1 tab PRN Q4HRS PRN 11/28/20 22:45 12/05/20 19:50 DC 12/05/20 17:38 1 TAB Albumin Human 200 ml @ 200 mls/hr 1X ONCE 12/28/20 07:45 12/28/20 08:44 DC 12/28/20 08:22 200 MLS/HR Aspirin (Aspirin Chewable) 81 mg 1X ONCE 12/27/20 10:45 12/27/20 10:46 UNV Aspirin (Ecotrin) 81 mg [id number] 12/23/20 13:00 12/27/20 10:33 DC 12/24/20 08:40 81 MG Atorvastatin Calcium (Lipitor) 40 mg QHS 12/19/20 21:00 12/28/20 22:16 40 MG Atropine Sulfate (ATROPINE 0.5mg SYRINGE) 0.5 mg PRN Q5MIN PRN 12/26/20 19:15 Azithromycin 250 ml @ 250 mls/hr DAILY ONCE 11/30/20 09:00 11/30/20 09:59 UNV Azithromycin 500 mg/Sodium Chloride 250 ml @ 250 mls/hr Q24H 11/29/20 15:00 11/29/20 13:50 DC Benzocaine (Hurricaine One) 1 spray STK-MED ONCE 12/05/20 10:06 12/05/20 10:07 DC Carvedilol (Coreg) 3.125 mg BIDWMEALS 12/01/20 12:00 12/05/20 20:11 DC 12/03/20 16:39 3.125 MG Cefazolin Sodium (Ancef) 1 gm Q24H 12/26/20 16:00 12/27/20 10:37 DC 12/26/20 15:29 1 GM Cefazolin Sodium/ Dextrose 50 ml @ As Directed STK-MED ONCE 12/23/20 13:57 12/23/20 13:58 DC Cefepime HCl (Maxipime) 1 gm Q24H 12/22/20 11:00 12/26/20 11:56 DC 12/25/20 12:32 1 GM Ceftriaxone Sodium (Rocephin) 2 gm Q24H 11/29/20 14:00 12/01/20 09:19 DC 11/30/20 13:21 2 GM Daptomycin 500 mg/ Sodium Chloride 50 ml @ 100 mls/hr Q48H 12/13/20 10:00 12/26/20 11:55 DC 12/25/20 17:33 100 MLS/HR Daptomycin 510 mg/ Sodium Chloride 50 ml @ 100 mls/hr QODAY 12/27/20 12:00 12/27/20 13:31 100 MLS/HR Daptomycin 580 mg/ Sodium Chloride 50 ml @ 100 mls/hr Q24H 12/01/20 07:30 12/01/20 09:19 DC 12/01/20 08:52 100 MLS/HR Dexamethasone Sodium Phosphate (Decadron) 4 mg STK-MED ONCE 12/04/20 11:26 12/04/20 11:26 DC Dexmedetomidine HCl 400 mcg/ Sodium Chloride 100 ml @ 4.725 mls/ hr CONT PRN 12/26/20 19:15 Dextrose (Dextrose 50%-Water Syringe) 25 gm STK-MED ONCE 12/26/20 11:00 12/27/20 08:58 DC Docusate Sodium (Colace) 100 mg PRN BID PRN 12/17/20 17:45 Epoetin Krishna-epbx (RETACRIT for ESRD PTS) 10,000 unit MoWeFr@2100 12/14/20 21:00 12/28/20 22:16 10,000 UNIT Etomidate (Amidate) 20 mg 1X ONCE 12/26/20 21:15 12/26/20 21:16 DC 12/26/20 19:38 20 MG Famotidine (Pepcid Vial) 20 mg BID 12/26/20 21:00 12/27/20 10:19 DC 12/27/20 09:00 20 MG Fentanyl Citrate 55 ml @ 0 mls/hr CONT PRN 12/27/20 12:45 Cancel Fentanyl Citrate (Fentanyl 2ml Vial) 100 mcg 1X ONCE 12/23/20 14:00 12/23/20 14:06 DC 12/23/20 14:00 50 MCG Furosemide (Lasix) 40 mg 1X ONCE 12/25/20 23:00 12/25/20 23:05 DC 12/25/20 23:16 40 MG Glycerin/ Hypromellose/ Polyethylene (Artificial Tears) 1 drop PRN Q1HR PRN 12/26/20 19:15 Hydromorphone HCl (Dilaudid) 0.5 mg PRN Q10MIN PRN 12/04/20 09:30 12/05/20 09:29 DC Influenza Virus Vaccine Quadrival (Flulaval Quad [id number] Syringe) 0.5 ml ONCE ONCE 11/29/20 09:00 11/29/20 09:01 DC 11/29/20 10:06 0.5 ML Info (PHARMACY MONITORING -- do not chart) 1 each PRN DAILY PRN 12/28/20 07:15 Lactobacillus Rhamnosus (Culturelle) 1 cap BID 11/29/20 21:00 12/27/20 21:38 DC 12/24/20 22:38 1 CAP Lidocaine HCl (Buffered Lidocaine 1%) 4 ml 1X ONCE 12/12/20 13:15 12/12/20 13:18 DC 12/12/20 13:11 4 ML Lidocaine HCl (Lidocaine 1% 20ml Vial) 10 ml 1X ONCE 12/01/20 16:00 12/01/20 16:01 DC Lidocaine HCl (Lidocaine Pf 2% Vial) 5 ml STK-MED ONCE 12/04/20 10:43 12/04/20 10:43 DC Lidocaine HCl (Viscous Lidocaine) 15 ml STK-MED ONCE 12/05/20 10:06 12/05/20 10:06 DC Lidocaine HCl (Xylocaine 2% Topical 30gm Tube) 30 hiro STK-MED ONCE 12/05/20 10:06 12/05/20 10:06 DC Lidocaine/ Epinephrine (LIDOCAINE 1%-EPI 1:100,000 Multi-Dose) 20 ml 1X ONCE 12/23/20 14:15 12/23/20 14:16 DC 12/23/20 14:15 8 ML Linezolid (Zyvox) 600 mg BID 12/27/20 12:00 12/28/20 08:25 DC 12/27/20 21:48 600 MG Magnesium Sulfate 50 ml @ 25 mls/hr 1X ONCE 12/28/20 12:45 12/28/20 14:44 DC 12/28/20 13:33 25 MLS/HR Meropenem 500 mg/ Sodium Chloride 50 ml @ 100 mls/hr DAILY 12/27/20 11:00 12/28/20 11:16 100 MLS/HR Metoprolol Succinate (Toprol Xl) 25 mg DAILY 12/09/20 09:00 12/25/20 10:43 DC 12/24/20 08:41 25 MG Midazolam HCl (Versed) 5 mg PRN 1X PRN 12/26/20 19:15 12/27/20 19:14 DC Morphine Sulfate (Morphine Sulfate) 1 mg PRN Q10MIN PRN 12/04/20 09:30 12/05/20 09:29 DC Nafcillin Sodium 2 gm/Dextrose 100 ml @ 200 mls/hr Q4HRS 12/01/20 10:00 12/21/20 08:19 DC 12/21/20 04:11 200 MLS/HR Norepinephrine Bitartrate 8 mg/ Dextrose 258 ml @ 18.286 mls/ hr CONT PRN 12/26/20 19:15 12/29/20 05:57 49.372 MLS/HR Ondansetron HCl (Zofran) 4 mg STK-MED ONCE 12/04/20 11:26 12/04/20 11:26 DC Pantoprazole Sodium (PROTONIX VIAL for IV PUSH) 40 mg DAILYAC 12/27/20 07:30 12/29/20 08:23 40 MG Pantoprazole Sodium (Protonix) 40 mg DAILYAC 12/20/20 09:15 12/26/20 10:17 DC 12/24/20 06:15 40 MG Phenylephrine HCl (PHENYLEPHRINE in 0.9% NACL PF) 1 mg STK-MED ONCE 12/04/20 10:43 12/04/20 10:43 DC Phytonadione (Vitamin K Ampule) 10 mg 1X ONCE 12/28/20 08:15 12/28/20 08:16 DC 12/28/20 10:10 10 MG Polyethylene Glycol (miraLAX PACKET) 17 gm PRN DAILY PRN 12/03/20 19:00 12/06/20 09:16 17 GM Potassium Chloride/Water 100 ml @ 50 mls/hr 1X ONCE 11/28/20 14:45 11/28/20 16:44 DC 11/28/20 16:20 50 MLS/HR Potassium Phosphate 15 mmol/ Sodium Chloride 105 ml @ 52.5 mls/hr 1X ONCE 12/28/20 14:00 12/28/20 15:59 DC 12/28/20 13:32 52.5 MLS/HR Potassium Chloride (Klor-Con) 20 meq 1X ONCE 12/10/20 19:00 12/10/20 19:01 DC 12/10/20 18:52 20 MEQ Prochlorperazine Edisylate (Compazine) 5 mg PACU PRN PRN 12/04/20 09:30 12/05/20 09:29 DC Propofol (Diprivan) 200 mg STK-MED ONCE 12/05/20 09:29 12/05/20 09:30 DC Ringer's Solution 1,000 ml @ 100 mls/hr Q10H 12/26/20 19:30 12/28/20 04:37 100 MLS/HR Sevoflurane (Ultane) 60 ml STK-MED ONCE 12/04/20 11:14 12/04/20 11:14 DC Sodium Chloride 1,000 ml @ 400 mls/hr Q2H30M PRN 12/28/20 07:15 12/28/20 19:14 DC Sodium Chloride (Normal Saline Flush) 10 ml 1X PRN PRN 12/23/20 10:15 12/24/20 10:14 DC Sodium Chloride (Saline Mist Nasal) 1 hiro PRN Q1HR PRN 12/02/20 20:45 12/20/20 23:52 1 HIRO Sodium Phosphate 40 mmol/Sodium Chloride 263.3333 ml @ 62.5 mls/hr 1X ONCE 12/29/20 10:00 12/29/20 14:12 Succinylcholine Chloride (Anectine) 200 mg 1X ONCE 12/26/20 21:15 12/26/20 21:16 DC 12/26/20 19:38 200 MG Vecuronium [place] (Norcuron Bolus) 6 mg PRN 1X PRN 12/26/20 19:15 12/27/20 19:14 DC Warfarin Sodium (Coumadin) 3.75 mg DAILY 11/30/20 09:00 UNV Zolpidem Tartrate (Ambien) 5 mg PRN QHS PRN 12/05/20 20:00 12/23/20 22:11 5 MG Lab Laboratory Tests Test 12/28/20 15:22 12/28/20 23:59 12/29/20 04:55 12/29/20 07:15 Glucose (Fingerstick) 75 mg/dL (70-99) 77 mg/dL (70-99) White Blood Count 14.7 x10^3/uL (4.0-11.0) Red Blood Count 2.33 x10^6/uL (4.30-5.70) Hemoglobin 6.8 g/dL (13.0-17.5) Hematocrit 21.1 % (39.0-53.0) Mean Corpuscular Volume 90 fL (79-100) Mean Corpuscular Hemoglobin 29 pg (25-35) Mean Corpuscular Hemoglobin Concent 32 g/dL (31-37) Red Cell Distribution Width 28.7 % (11.5-14.5) Platelet Count 65 x10^3/uL (140-400) Neutrophils (%) (Auto) 86 % (31-73) Lymphocytes (%) (Auto) 8 % (24-48) Monocytes (%) (Auto) 5 % (0-9) Eosinophils (%) (Auto) 1 % (0-3) Basophils (%) (Auto) 1 % (0-3) Neutrophils # (Auto) 12.7 x10^3/uL (1.8-7.7) Lymphocytes # (Auto) 1.1 x10^3/uL (1.0-4.8) Monocytes # (Auto) 0.7 x10^3/uL (0.0-1.1) Eosinophils # (Auto) 0.2 x10^3/uL (0.0-0.7) Basophils # (Auto) 0.1 x10^3/uL (0.0-0.2) Prothrombin Time 26.9 SEC (11.7-14.0) Prothromb Time International Ratio 2.5 (0.8-1.1) Sodium Level 136 mmol/L (136-145) Potassium Level 4.1 mmol/L (3.5-5.1) Chloride Level 99 mmol/L (98-107) Carbon Dioxide Level 29 mmol/L (21-32) Anion Gap 8 (6-14) Blood Urea Nitrogen 13 mg/dL (8-26) Creatinine 2.5 mg/dL (0.7-1.3) Estimated GFR (Cockcroft-Gault) 24.8 BUN/Creatinine Ratio 5 (6-20) Glucose Level 90 mg/dL (70-99) Calcium Level 7.4 mg/dL (8.5-10.1) Phosphorus Level 1.5 mg/dL (2.6-4.7) Magnesium Level 2.2 mg/dL (1.8-2.4) Total Bilirubin 7.9 mg/dL (0.2-1.0) Aspartate Amino Transf (AST/SGOT) 579 U/L (15-37) Alanine Aminotransferase (ALT/SGPT) 71 U/L (16-63) Alkaline Phosphatase 156 U/L (46-116) Total Protein 6.2 g/dL (6.4-8.2) Albumin 2.2 g/dL (3.4-5.0) Albumin/Globulin Ratio 0.6 (1.0-1.7) O2 Saturation 89 % (92-99) Arterial Blood pH 7.36 (7.35-7.45) Arterial Blood pCO2 at Patient Temp 49 mmHg (35-46) Arterial Blood pO2 at Patient Temp 56 mmHg (65-108) Arterial Blood HCO3 28 mmol/L (21-28) Arterial Blood Base Excess 2 mmol/L (-3-3) FiO2 50/vent Results All relevant outside records, renal labs, imaging studies, telemetry/EKG's were reviewed. Justicifation of Admission Dx: Justifications for Admission: Justification of Admission Dx: N/A MERLE QUIROZ MD Dec 29, 2020 09:17
[2020-12-29] MEDS ORDERED: SODIUM PHOSPHATE 40 MMOL in IV NORMAL SALINE 250ML 250 ML IV ONE (10:00)
--- NOTE | 2020-12-29 10:46 | PDOC ---
Date of Service: DATE: 12/29/20 TIME: 10:37 Objective: Objective: D/w nurse - no residual so attempting to increase tube feed rate, to dialyze again today. Transfusion ordered. Vital Signs: Vital Signs Date Time Temp Pulse Resp B/P (MAP) Pulse Ox O2 Delivery O2 Flow Rate FiO2 12/29/20 09:20 98 Ventilator 12/29/20 09:00 64 16 108/62 12/29/20 08:00 99.3 99.3 12/28/20 07:25 15.0 Labs: Laboratory Tests Test 12/28/20 15:22 12/28/20 23:59 12/29/20 04:55 12/29/20 07:15 Glucose (Fingerstick) 75 mg/dL 77 mg/dL White Blood Count 14.7 x10^3/uL Red Blood Count 2.33 x10^6/uL Hemoglobin 6.8 g/dL Hematocrit 21.1 % Mean Corpuscular Volume 90 fL Mean Corpuscular Hemoglobin 29 pg Mean Corpuscular Hemoglobin Concent 32 g/dL Red Cell Distribution Width 28.7 % Platelet Count 65 x10^3/uL Neutrophils (%) (Auto) 86 % Lymphocytes (%) (Auto) 8 % Monocytes (%) (Auto) 5 % Eosinophils (%) (Auto) 1 % Basophils (%) (Auto) 1 % Neutrophils # (Auto) 12.7 x10^3/uL Lymphocytes # (Auto) 1.1 x10^3/uL Monocytes # (Auto) 0.7 x10^3/uL Eosinophils # (Auto) 0.2 x10^3/uL Basophils # (Auto) 0.1 x10^3/uL Prothrombin Time 26.9 SEC Prothromb Time International Ratio 2.5 Sodium Level 136 mmol/L Potassium Level 4.1 mmol/L Chloride Level 99 mmol/L Carbon Dioxide Level 29 mmol/L Anion Gap 8 Blood Urea Nitrogen 13 mg/dL Creatinine 2.5 mg/dL Estimated GFR (Cockcroft-Gault) 24.8 BUN/Creatinine Ratio 5 Glucose Level 90 mg/dL Calcium Level 7.4 mg/dL Phosphorus Level 1.5 mg/dL Magnesium Level 2.2 mg/dL Total Bilirubin 7.9 mg/dL Aspartate Amino Transf (AST/SGOT) 579 U/L Alanine Aminotransferase (ALT/SGPT) 71 U/L Alkaline Phosphatase 156 U/L Total Protein 6.2 g/dL Albumin 2.2 g/dL Albumin/Globulin Ratio 0.6 O2 Saturation 89 % Arterial Blood pH 7.36 Arterial Blood pCO2 at Patient Temp 49 mmHg Arterial Blood pO2 at Patient Temp 56 mmHg Arterial Blood HCO3 28 mmol/L Arterial Blood Base Excess 2 mmol/L FiO2 50/vent PE: GEN: intubated LUNGS: vent/clear HEART: RRR ABD: soft, quiet BS mostly to right, OG feeds @ 25 NEURO/PSYCH: sedated A/P: MOF MSSA bacteremia/right knee septic arthritis s/p I&D Anemia, coagulopathy, thrombocytopenia, abnormal LFTs (all better except rising bili), hepatic steatosis -- Will review any other suggestions from GI standpoint w/ Dr. Peters. Justicifation of Admission Dx: Justifications for Admission: Justification of Admission Dx: N/A PAMELA TERVIÑO Dec 29, 2020 10:46
[2020-12-29] MEDS ORDERED: PHYTONADIONE 10 MG/ML AMPUL. SQ ONE (11:00)
--- NOTE | 2020-12-29 11:27 | PDOC ---
LILLIANA AZEVEDO SEAMSTRESS FITTER 12/29/20 1127: CARDIO Progress Notes Date and Time Date of Service 12/29/20 Time of Evaluation 1120 Subjective Subjective: Other (intubated ) Vitals Vitals Vital Signs Date Time Temp Pulse Resp B/P (MAP) Pulse Ox O2 Delivery O2 Flow Rate FiO2 12/29/20 11:00 69 16 116/53 100 Ventilator 12/29/20 08:00 99.3 99.3 12/28/20 07:25 15.0 Weight Weight [ ] Input and Output Intake and Output Intake and Output 12/29/20 07:00 Intake Total 2939 ml Output Total 130 ml Balance 2809 ml Intake Oral 0 ml IV Total 2444 ml Tube Feeding 385 ml Other 110 ml Output Urine Total 0 ml Gastric Drainage Total 130 ml Laboratory Labs Laboratory Tests Test 12/28/20 15:22 12/28/20 23:59 12/29/20 04:55 12/29/20 07:15 Glucose (Fingerstick) 75 mg/dL (70-99) 77 mg/dL (70-99) White Blood Count 14.7 x10^3/uL (4.0-11.0) Red Blood Count 2.33 x10^6/uL (4.30-5.70) Hemoglobin 6.8 g/dL (13.0-17.5) Hematocrit 21.1 % (39.0-53.0) Mean Corpuscular Volume 90 fL (79-100) Mean Corpuscular Hemoglobin 29 pg (25-35) Mean Corpuscular Hemoglobin Concent 32 g/dL (31-37) Red Cell Distribution Width 28.7 % (11.5-14.5) Platelet Count 65 x10^3/uL (140-400) Neutrophils (%) (Auto) 86 % (31-73) Lymphocytes (%) (Auto) 8 % (24-48) Monocytes (%) (Auto) 5 % (0-9) Eosinophils (%) (Auto) 1 % (0-3) Basophils (%) (Auto) 1 % (0-3) Neutrophils # (Auto) 12.7 x10^3/uL (1.8-7.7) Lymphocytes # (Auto) 1.1 x10^3/uL (1.0-4.8) Monocytes # (Auto) 0.7 x10^3/uL (0.0-1.1) Eosinophils # (Auto) 0.2 x10^3/uL (0.0-0.7) Basophils # (Auto) 0.1 x10^3/uL (0.0-0.2) Prothrombin Time 26.9 SEC (11.7-14.0) Prothromb Time International Ratio 2.5 (0.8-1.1) Sodium Level 136 mmol/L (136-145) Potassium Level 4.1 mmol/L (3.5-5.1) Chloride Level 99 mmol/L (98-107) Carbon Dioxide Level 29 mmol/L (21-32) Anion Gap 8 (6-14) Blood Urea Nitrogen 13 mg/dL (8-26) Creatinine 2.5 mg/dL (0.7-1.3) Estimated GFR (Cockcroft-Gault) 24.8 BUN/Creatinine Ratio 5 (6-20) Glucose Level 90 mg/dL (70-99) Calcium Level 7.4 mg/dL (8.5-10.1) Phosphorus Level 1.5 mg/dL (2.6-4.7) Magnesium Level 2.2 mg/dL (1.8-2.4) Total Bilirubin 7.9 mg/dL (0.2-1.0) Aspartate Amino Transf (AST/SGOT) 579 U/L (15-37) Alanine Aminotransferase (ALT/SGPT) 71 U/L (16-63) Alkaline Phosphatase 156 U/L (46-116) Total Protein 6.2 g/dL (6.4-8.2) Albumin 2.2 g/dL (3.4-5.0) Albumin/Globulin Ratio 0.6 (1.0-1.7) O2 Saturation 89 % (92-99) Arterial Blood pH 7.36 (7.35-7.45) Arterial Blood pCO2 at Patient Temp 49 mmHg (35-46) Arterial Blood pO2 at Patient Temp 56 mmHg (65-108) Arterial Blood HCO3 28 mmol/L (21-28) Arterial Blood Base Excess 2 mmol/L (-3-3) FiO2 50/vent Microbiology Micro Microbiology 12/27/20 Blood Culture - Preliminary, Resulted NO GROWTH AFTER 2 DAYS 12/22/20 Gram Stain Evaluation - Final, Complete 12/22/20 Respiratory Culture - Final, Complete 12/07/20 Urine Culture - Final, Complete 12/04/20 Gram Stain - Final, Complete 12/04/20 Aerobic and Anaerobic Culture - Final, Complete Review of Systems Constitutional: yes: unresponsive Ears/Nose/Throat: Yes: no symptom reported Eyes: Yes: no symptom reported Pulmonary: Yes no symptom reported Gastrointestional: Yes: no symptom reported Genitourinary: Yes: no symptom reported Musculoskeletal: Yes: no symptom reported Skin: Yes no symptom reported Psychiatric/Neurological: Yes: no symptom reported Endocrine: Yes: no symptom reported Physical Exam HEENT: Neck Supple W Full Motion Chest: Symmetric LUNGS: Other (mechanical vent ) Heart: other (intermittent V paced with underlying AFIB. rate controlled ) Abdomen: Other (soft ) Extremities: No Edema Neurology: other (sedated ) Assessment Assessment 1. Weakness, mechanical fall with right knee effusion: s/p I & D 2. Sepsis, MSSA bacteremia: no intracardiac vegetation per SOO. febrile 3. SSS, s/p PPM. generator change ([employer]) 11/01/2020. normal function 4. CAD: clinically stable 5. Permanent AFIB: rate controlled with intermittent v-pacing. 6. Coagulopathy due to warfarin; OAC discontinued 7. Acute on chronic diastolic CHF; echo with normal EF and WM. 8. Acute respiratory failure secondary to above; s/p intubation 9. GUERO; HD initiated 10. HTN: presently hypotensive requiring pressor support 11. HLP: on statin 12. Anemia; s/p transfusion. no obvious bleeding 13. Transaminitis, coagulopathy, thrombocytopenia 14. Arrhythmia; 11-beat NSVT noted on tele overnight. Mg 2.2 Recommendations Fluid offloading via HD Keep Mg > 2.0 and K > 4.0 Transfuse as warranted No ASA with anemia, thrombocytopenia Ongoing treatment of sepsis/bacteremia per ID team Lung optimization as per pulmonary Poor candidate for OAC, consider outpatient referral for [facility] Supportive care Justicifation of Admission Dx: Justifications for Admission: Justification of Admission Dx: N/A IRMA GONZALES MD 12/30/20 0812: CARDIO Progress Notes Assessment Assessment Patient seen and examined 12/29/2020. Agree with PEDIATRIC ASSISTANT's assessment plan. Remains intubated for acute resp failure - Continue vent management per pulmonary team. Continue fluid removal with hemodialysis for acute on chronic diastolic heart failure. Permanent atrial fibrillation rate controlled. Continue treatment of sepsis/bacteremia per ID team. SSS s/p PPM stable clinically He is poor candidate for long-term anticoagulation - consider outpatient referral for [facility] LILLIANA AZEVEDO APRN Dec 29, 2020 11:27 IRMA GONZALES MD Dec 30, 2020 08:12
[2020-12-29] MEDS: NOREPINEPHRINE VIAL 32 MG in IV D5W 250ML IV PRN (11:40)
--- NOTE | 2020-12-29 13:15 | PDOC ---
PROGRESS NOTES Date of Service DATE: 12/29/20 TIME: 13:14 Assessment Problems Medical Problems: (1) Hypokalemia Status: Acute (2) Person under investigation for COVID-19 Status: Acute (3) Pneumonia Status: Acute (4) Sepsis Status: Acute Patient worsened and was intubated on 12/26, son wanted full aggressive care. Metabolic encephalopathy Respiratory failure, possible fluid overload, renal failure, sepsis Plan I asked the nurse to discontinue sedatives Treat medical issues Holding off on additional neurological studies Subjective None Objective Vital Signs Date Time Temp Pulse Resp B/P (MAP) Pulse Ox O2 Delivery O2 Flow Rate FiO2 12/29/20 13:00 72 16 111/50 96 Ventilator 12/29/20 12:45 99.7 99.7 12/28/20 07:25 15.0 Intake and Output 12/29/20 07:00 Intake Total 2939 ml Output Total 130 ml Balance 2809 ml Intake Oral 0 ml IV Total 2444 ml Tube Feeding 385 ml Other 110 ml Output Urine Total 0 ml Gastric Drainage Total 130 ml PHYSICAL EXAM Intubated and sedated, no response to pain or voice PERRL. EOMI. CN: no focal findings. Muscle tone: normal. Muscle strength: Untestable DTR: 1+ Plantar reflex: Silent Gait: not examined in bed. Sensory exam: Not cooperative Cerebellar: Not cooperative Review of Relevant I have reviewed the following items mel (where applicable) has been applied. Labs Laboratory Tests Test 12/27/20 14:45 12/28/20 00:34 12/28/20 01:32 12/28/20 06:00 Lactic Acid Level 2.5 mmol/L (0.4-2.0) Glucose (Fingerstick) 66 mg/dL (70-99) 91 mg/dL (70-99) White Blood Count 13.9 x10^3/uL (4.0-11.0) Red Blood Count 2.46 x10^6/uL (4.30-5.70) Hemoglobin 7.1 g/dL (13.0-17.5) Hematocrit 22.1 % (39.0-53.0) Mean Corpuscular Volume 90 fL (79-100) Mean Corpuscular Hemoglobin 29 pg (25-35) Mean Corpuscular Hemoglobin Concent 33 g/dL (31-37) Red Cell Distribution Width 27.7 % (11.5-14.5) Platelet Count 69 x10^3/uL (140-400) Neutrophils (%) (Auto) 87 % (31-73) Lymphocytes (%) (Auto) 8 % (24-48) Monocytes (%) (Auto) 3 % (0-9) Eosinophils (%) (Auto) 1 % (0-3) Basophils (%) (Auto) 1 % (0-3) Neutrophils # (Auto) 12.4 x10^3/uL (1.8-7.7) Lymphocytes # (Auto) 1.2 x10^3/uL (1.0-4.8) Monocytes # (Auto) 0.4 x10^3/uL (0.0-1.1) Eosinophils # (Auto) 0.1 x10^3/uL (0.0-0.7) Basophils # (Auto) 0.1 x10^3/uL (0.0-0.2) Segmented Neutrophils % 70 % (35-66) Band Neutrophils % 23 % (0-9) Lymphocytes % 3 % (24-48) Monocytes % 2 % (0-10) Metamyelocytes % 2 % (0-0) Nucleated Red Blood Cells 9 Platelet Estimate Decreased (ADEQUATE) Polychromasia Slight Poikilocytosis Slight Basophilic Stippling Present Anisocytosis Mod Target Cells Occ Daron Cells Few Schistocytes Few RBC Morphology Bizarre Forms Prothrombin Time 36.3 SEC (11.7-14.0) Prothromb Time International Ratio 3.8 (0.8-1.1) Sodium Level 136 mmol/L (136-145) Potassium Level 3.4 mmol/L (3.5-5.1) Chloride Level 99 mmol/L (98-107) Carbon Dioxide Level 30 mmol/L (21-32) Anion Gap 7 (6-14) Blood Urea Nitrogen 15 mg/dL (8-26) Creatinine 3.0 mg/dL (0.7-1.3) Estimated GFR (Cockcroft-Gault) 20.1 Glucose Level 83 mg/dL (70-99) Calcium Level 7.5 mg/dL (8.5-10.1) Phosphorus Level 1.2 mg/dL (2.6-4.7) Magnesium Level 1.7 mg/dL (1.8-2.4) Albumin 1.9 g/dL (3.4-5.0) Test 12/28/20 06:27 12/28/20 07:30 12/28/20 15:22 12/28/20 23:59 Glucose (Fingerstick) 72 mg/dL (70-99) 75 mg/dL (70-99) 77 mg/dL (70-99) O2 Saturation 88 % (92-99) Arterial Blood pH 7.40 (7.35-7.45) Arterial Blood pCO2 at Patient Temp 49 mmHg (35-46) Arterial Blood pO2 at Patient Temp 50 mmHg (65-108) Arterial Blood HCO3 30 mmol/L (21-28) Arterial Blood Base Excess 4 mmol/L (-3-3) FiO2 40 Test 12/29/20 04:55 12/29/20 07:15 12/29/20 11:32 White Blood Count 14.7 x10^3/uL (4.0-11.0) Red Blood Count 2.33 x10^6/uL (4.30-5.70) Hemoglobin 6.8 g/dL (13.0-17.5) Hematocrit 21.1 % (39.0-53.0) Mean Corpuscular Volume 90 fL (79-100) Mean Corpuscular Hemoglobin 29 pg (25-35) Mean Corpuscular Hemoglobin Concent 32 g/dL (31-37) Red Cell Distribution Width 28.7 % (11.5-14.5) Platelet Count 65 x10^3/uL (140-400) Neutrophils (%) (Auto) 86 % (31-73) Lymphocytes (%) (Auto) 8 % (24-48) Monocytes (%) (Auto) 5 % (0-9) Eosinophils (%) (Auto) 1 % (0-3) Basophils (%) (Auto) 1 % (0-3) Neutrophils # (Auto) 12.7 x10^3/uL (1.8-7.7) Lymphocytes # (Auto) 1.1 x10^3/uL (1.0-4.8) Monocytes # (Auto) 0.7 x10^3/uL (0.0-1.1) Eosinophils # (Auto) 0.2 x10^3/uL (0.0-0.7) Basophils # (Auto) 0.1 x10^3/uL (0.0-0.2) Prothrombin Time 26.9 SEC (11.7-14.0) Prothromb Time International Ratio 2.5 (0.8-1.1) Sodium Level 136 mmol/L (136-145) Potassium Level 4.1 mmol/L (3.5-5.1) Chloride Level 99 mmol/L (98-107) Carbon Dioxide Level 29 mmol/L (21-32) Anion Gap 8 (6-14) Blood Urea Nitrogen 13 mg/dL (8-26) Creatinine 2.5 mg/dL (0.7-1.3) Estimated GFR (Cockcroft-Gault) 24.8 BUN/Creatinine Ratio 5 (6-20) Glucose Level 90 mg/dL (70-99) Calcium Level 7.4 mg/dL (8.5-10.1) Phosphorus Level 1.5 mg/dL (2.6-4.7) Magnesium Level 2.2 mg/dL (1.8-2.4) Total Bilirubin 7.9 mg/dL (0.2-1.0) Aspartate Amino Transf (AST/SGOT) 579 U/L (15-37) Alanine Aminotransferase (ALT/SGPT) 71 U/L (16-63) Alkaline Phosphatase 156 U/L (46-116) Total Protein 6.2 g/dL (6.4-8.2) Albumin 2.2 g/dL (3.4-5.0) Albumin/Globulin Ratio 0.6 (1.0-1.7) O2 Saturation 89 % (92-99) Arterial Blood pH 7.36 (7.35-7.45) Arterial Blood pCO2 at Patient Temp 49 mmHg (35-46) Arterial Blood pO2 at Patient Temp 56 mmHg (65-108) Arterial Blood HCO3 28 mmol/L (21-28) Arterial Blood Base Excess 2 mmol/L (-3-3) FiO2 50/vent Glucose (Fingerstick) 83 mg/dL (70-99) Laboratory Tests Test 12/28/20 15:22 12/28/20 23:59 12/29/20 04:55 12/29/20 07:15 Glucose (Fingerstick) 75 mg/dL (70-99) 77 mg/dL (70-99) White Blood Count 14.7 x10^3/uL (4.0-11.0) Red Blood Count 2.33 x10^6/uL (4.30-5.70) Hemoglobin 6.8 g/dL (13.0-17.5) Hematocrit 21.1 % (39.0-53.0) Mean Corpuscular Volume 90 fL (79-100) Mean Corpuscular Hemoglobin 29 pg (25-35) Mean Corpuscular Hemoglobin Concent 32 g/dL (31-37) Red Cell Distribution Width 28.7 % (11.5-14.5) Platelet Count 65 x10^3/uL (140-400) Neutrophils (%) (Auto) 86 % (31-73) Lymphocytes (%) (Auto) 8 % (24-48) Monocytes (%) (Auto) 5 % (0-9) Eosinophils (%) (Auto) 1 % (0-3) Basophils (%) (Auto) 1 % (0-3) Neutrophils # (Auto) 12.7 x10^3/uL (1.8-7.7) Lymphocytes # (Auto) 1.1 x10^3/uL (1.0-4.8) Monocytes # (Auto) 0.7 x10^3/uL (0.0-1.1) Eosinophils # (Auto) 0.2 x10^3/uL (0.0-0.7) Basophils # (Auto) 0.1 x10^3/uL (0.0-0.2) Prothrombin Time 26.9 SEC (11.7-14.0) Prothromb Time International Ratio 2.5 (0.8-1.1) Sodium Level 136 mmol/L (136-145) Potassium Level 4.1 mmol/L (3.5-5.1) Chloride Level 99 mmol/L (98-107) Carbon Dioxide Level 29 mmol/L (21-32) Anion Gap 8 (6-14) Blood Urea Nitrogen 13 mg/dL (8-26) Creatinine 2.5 mg/dL (0.7-1.3) Estimated GFR (Cockcroft-Gault) 24.8 BUN/Creatinine Ratio 5 (6-20) Glucose Level 90 mg/dL (70-99) Calcium Level 7.4 mg/dL (8.5-10.1) Phosphorus Level 1.5 mg/dL (2.6-4.7) Magnesium Level 2.2 mg/dL (1.8-2.4) Total Bilirubin 7.9 mg/dL (0.2-1.0) Aspartate Amino Transf (AST/SGOT) 579 U/L (15-37) Alanine Aminotransferase (ALT/SGPT) 71 U/L (16-63) Alkaline Phosphatase 156 U/L (46-116) Total Protein 6.2 g/dL (6.4-8.2) Albumin 2.2 g/dL (3.4-5.0) Albumin/Globulin Ratio 0.6 (1.0-1.7) O2 Saturation 89 % (92-99) Arterial Blood pH 7.36 (7.35-7.45) Arterial Blood pCO2 at Patient Temp 49 mmHg (35-46) Arterial Blood pO2 at Patient Temp 56 mmHg (65-108) Arterial Blood HCO3 28 mmol/L (21-28) Arterial Blood Base Excess 2 mmol/L (-3-3) FiO2 50/vent Test 12/29/20 11:32 Glucose (Fingerstick) 83 mg/dL (70-99) Microbiology 12/27/20 Blood Culture - Preliminary, Resulted NO GROWTH AFTER 2 DAYS 12/22/20 Gram Stain Evaluation - Final, Complete 12/22/20 Respiratory Culture - Final, Complete 12/07/20 Urine Culture - Final, Complete 12/04/20 Gram Stain - Final, Complete 12/04/20 Aerobic and Anaerobic Culture - Final, Complete Medications Current Medications Ceftriaxone Sodium (Rocephin) 1 gm 1X ONCE IVP Last administered on 11/28/20at 13:30; Start 11/28/20 at 13:30; Stop 11/28/20 at 13:31; Status DC Azithromycin 500 mg/Sodium Chloride 250 ml @ 250 mls/hr 1X ONCE IV ; Start 11/28/20 at 13:30; Stop 11/28/20 at 14:29; Status UNV Azithromycin 250 ml @ 250 mls/hr 1X ONCE IV Last administered on 11/28/20at 15:11; Start 11/28/20 at 13:30; Stop 11/28/20 at 14:29; Status DC Acetaminophen (Tylenol) 1,000 mg 1X ONCE PO Last administered on 11/28/20at 15:10; Start 11/28/20 at 14:45; Stop 11/28/20 at 14:46; Status DC Potassium Chloride/Water 100 ml @ 50 mls/hr 1X ONCE IV Last administered on 11/28/20at 16:20; Start 11/28/20 at 14:45; Stop 11/28/20 at 16:44; Status DC Potassium Chloride (Klor-Con) 40 meq 1X ONCE PO Last administered on 11/28/20at 16:21; Start 11/28/20 at 14:45; Stop 11/28/20 at 14:46; Status DC Sodium Chloride 1,000 ml @ 1,000 mls/hr 1X ONCE IV Last administered on 11/28/20at 17:41; Start 11/28/20 at 17:45; Stop 11/28/20 at 18:44; Status DC Acetaminophen (Tylenol) 650 mg PRN Q6HRS PRN PO MILD PAIN / TEMP > 100.3'F Last administered on 11/28/20at 20:36; Start 11/28/20 at 20:30 Influenza Virus Vaccine Quadrival (Flulaval Quad [id number] Syringe) 0.5 ml ONCE ONCE VAX IM Last administered on 11/29/20at 10:06; Start 11/29/20 at 09:00; Stop 11/29/20 at 09:01; Status DC Acetaminophen/ Hydrocodone Bitart (Lortab 5/325) 1 tab PRN Q4HRS PRN PO PAIN mod/severe Last administered on 12/05/20at 17:38; Start 11/28/20 at 22:45; Stop 12/05/20 at 19:50; Status DC Ceftriaxone Sodium (Rocephin) 1 gm Q24H IVP ; Start 11/29/20 at 13:00; Stop 11/29/20 at 13:11; Status DC Azithromycin 250 ml @ 250 mls/hr DAILY ONCE IV ; Start 11/30/20 at 09:00; Stop 11/30/20 at 09:59; Status UNV Azithromycin 500 mg/Sodium Chloride 250 ml @ 250 mls/hr Q24H IV ; Start 11/29/20 at 15:00; Stop 11/29/20 at 13:50; Status DC Acetaminophen (Tylenol) 650 mg QHS PO Last administered on 12/28/20at 22:16; Start 11/29/20 at 21:00 Aspirin (Aspirin Chewable) 81 mg DAILY PO Last administered on 12/19/20at 12:40; Start 11/30/20 at 09:00; Stop 12/19/20 at 14:26; Status DC Docusate Sodium (Colace) 100 mg PRN BID PRN PO HARD STOOLS Last administered on 12/01/20at 12:10; Start 11/29/20 at 09:45; Stop 12/17/20 at 17:41; Status DC Warfarin Sodium (Coumadin) 3.75 mg DAILY PO ; Start 11/30/20 at 09:00; Status UNV Atorvastatin Calcium (Lipitor) 20 mg QHS PO Last administered on 12/18/20at 20:29; Start 11/29/20 at 21:00; Stop 12/19/20 at 14:26; Status DC Daptomycin 500 mg/ Sodium Chloride 50 ml @ 100 mls/hr Q24H IV Last administered on 11/30/20at 13:19; Start 11/29/20 at 13:00; Stop 12/01/20 at 07:32; Status DC Ceftriaxone Sodium (Rocephin) 2 gm Q24H IVP Last administered on 11/30/20at 13:21; Start 11/29/20 at 14:00; Stop 12/01/20 at 09:19; Status DC Lactobacillus Rhamnosus (Culturelle) 1 cap BID PO Last administered on 12/24/20at 22:38; Start 11/29/20 at 21:00; Stop 12/27/20 at 21:38; Status DC Daptomycin 580 mg/ Sodium Chloride 50 ml @ 100 mls/hr Q24H IV Last administered on 12/01/20at 08:52; Start 12/01/20 at 07:30; Stop 12/01/20 at 09:19; Status DC Nafcillin Sodium 2 gm/Dextrose 100 ml @ 200 mls/hr Q4HRS IV Last administered on 12/21/20at 04:11; Start 12/01/20 at 10:00; Stop 12/21/20 at 08:19; Status DC Carvedilol (Coreg) 6.25 mg DAILY PO ; Start 12/01/20 at 12:00; Stop 12/01/20 at 12:00; Status DC Furosemide (Lasix) 40 mg DAILY PO Last administered on 12/07/20at 08:28; Start 12/01/20 at 12:00; Stop 12/07/20 at 14:46; Status DC Potassium Chloride (Klor-Con) 20 meq [id number] PO Last administered on 12/07/20at 08:28; Start 12/02/20 at 08:00; Stop 12/07/20 at 14:46; Status DC Potassium Chloride (Klor-Con) 20 meq 1X ONCE PO Last administered on 12/01/20at 12:12; Start 12/01/20 at 11:15; Stop 12/01/20 at 11:27; Status DC Carvedilol (Coreg) 3.125 mg BIDWMEALS PO Last administered on 12/03/20at 16:39; Start 12/01/20 at 12:00; Stop 12/05/20 at 20:11; Status DC Lidocaine HCl (Lidocaine 1% 20ml Vial) 10 ml 1X ONCE INJ ; Start 12/01/20 at 16:00; Stop 12/01/20 at 16:01; Status DC Ringer's Solution 1,000 ml @ 50 mls/hr Q20H IV Last administered on 12/05/20at 12:10; Start 12/05/20 at 07:00; Stop 12/05/20 at 18:59; Status DC Phytonadione (Vitamin K Ampule) 10 mg 1X ONCE SQ Last administered on 12/02/20at 11:09; Start 12/02/20 at 10:45; Stop 12/02/20 at 10:46; Status DC Sodium Chloride (Saline Mist Nasal) 1 hiro PRN Q1HR PRN NS NASAL CONGESTION Last administered on 12/20/20at 23:52; Start 12/02/20 at 20:45 Phytonadione (Vitamin K Ampule) 10 mg 1X ONCE SQ Last administered on 12/03/20at 11:17; Start 12/03/20 at 11:00; Stop 12/03/20 at 11:01; Status DC Docusate Sodium (Colace) 100 mg BID PO Last administered on 12/20/20at 08:52; Start 12/03/20 at 21:00; Stop 12/21/20 at 11:19; Status DC Polyethylene Glycol (miraLAX PACKET) 17 gm PRN DAILY PRN PO CONSTIPATION Last administered on 12/06/20at 09:16; Start 12/03/20 at 19:00 Fentanyl Citrate (Fentanyl 2ml Vial) 25 mcg PRN Q5MIN PRN IVP MILD PAIN 1-3; Start 12/04/20 at 09:30; Stop 12/05/20 at 09:29; Status DC Fentanyl Citrate (Fentanyl 2ml Vial) 50 mcg PRN Q5MIN PRN IVP MODERATE PAIN 4- 6; Start 12/04/20 at 09:30; Stop 12/05/20 at 09:29; Status DC Morphine Sulfate (Morphine Sulfate) 1 mg PRN Q10MIN PRN IVP SEVERE PAIN 7-10; Start 12/04/20 at 09:30; Stop 12/05/20 at 09:29; Status DC Ringer's Solution 1,000 ml @ 30 mls/hr Q24H IV ; Start 12/04/20 at 09:30; Stop 12/04/20 at 21:29; Status DC Hydromorphone HCl (Dilaudid) 0.5 mg PRN Q10MIN PRN IVP SEVERE PAIN 7-10, 2nd CHOICE; Start 12/04/20 at 09:30; Stop 12/05/20 at 09:29; Status DC Prochlorperazine Edisylate (Compazine) 5 mg PACU PRN PRN IVP NAUSEA, MRX1; Start 12/04/20 at 09:30; Stop 12/05/20 at 09:29; Status DC Propofol (Diprivan) 200 mg STK-MED ONCE IV ; Start 12/04/20 at 10:43; Stop 12/04/20 at 10:43; Status DC Lidocaine HCl (Lidocaine Pf 2% Vial) 5 ml STK-MED ONCE .ROUTE ; Start 12/04/20 at 10:43; Stop 12/04/20 at 10:43; Status DC Phenylephrine HCl (PHENYLEPHRINE in 0.9% NACL PF) 1 mg STK-MED ONCE IV ; Start 12/04/20 at 10:43; Stop 12/04/20 at 10:43; Status DC Sevoflurane (Ultane) 60 ml STK-MED ONCE IH ; Start 12/04/20 at 11:14; Stop 12/04/20 at 11:14; Status DC Dexamethasone Sodium Phosphate (Decadron) 4 mg STK-MED ONCE .ROUTE ; Start 12/04/20 at 11:26; Stop 12/04/20 at 11:26; Status DC Ondansetron HCl (Zofran) 4 mg STK-MED ONCE .ROUTE ; Start 12/04/20 at 11:26; Stop 12/04/20 at 11:26; Status DC Fentanyl Citrate (Fentanyl 2ml Vial) 100 mcg STK-MED ONCE .ROUTE ; Start 12/04/20 at 11:26; Stop 12/04/20 at 11:26; Status DC Daptomycin 500 mg/ Sodium Chloride 50 ml @ 100 mls/hr Q24H IV Last administered on 12/11/20at 10:46; Start 12/05/20 at 10:00; Stop 12/11/20 at 17:00; Status DC Propofol (Diprivan) 200 mg STK-MED ONCE IV ; Start 12/05/20 at 09:29; Stop 12/05/20 at 09:30; Status DC Lidocaine HCl (Viscous Lidocaine) 15 ml STK-MED ONCE .ROUTE ; Start 12/05/20 at 10:06; Stop 12/05/20 at 10:06; Status DC Lidocaine HCl (Xylocaine 2% Topical 30gm Tube) 30 hiro STK-MED ONCE TP ; Start 12/05/20 at 10:06; Stop 12/05/20 at 10:06; Status DC Benzocaine (Hurricaine One) 1 spray STK-MED ONCE .ROUTE ; Start 12/05/20 at 10:06; Stop 12/05/20 at 10:07; Status DC Acetaminophen/ Hydrocodone Bitart (Lortab 10/325) 1 tab PRN Q4HRS PRN PO MODERATE TO SEVERE PAIN Last administered on 12/24/20at 14:02; Start 12/05/20 at 20:00 Zolpidem Tartrate (Ambien) 5 mg PRN QHS PRN PO INSOMNIA Last administered on 12/23/20at 22:11; Start 12/05/20 at 20:00 Sodium Chloride 1,000 ml @ 1,000 mls/hr 1X ONCE IV Last administered on 12/06/20at 09:32; Start 12/06/20 at 09:15; Stop 12/06/20 at 10:14; Status DC Sodium Chloride 1,000 ml @ 100 mls/hr 1X ONCE IV Last administered on 1at 15:30; Start 12/06/20 at 13:15; Stop 12/06/20 at 23:14; Status DC Sodium Chloride 1,000 ml @ 100 mls/hr 1X ONCE IV Last administered on 12/07/20at 13:24; Start 12/07/20 at 11:45; Stop 12/08/20 at 10:55; Status DC Metoprolol Succinate (Toprol Xl) 25 mg DAILY PO Last administered on 12/24/20at 08:41; Start 12/09/20 at 09:00; Stop 12/25/20 at 10:43; Status DC Potassium Chloride (Klor-Con) 20 meq 1X ONCE PO Last administered on 12/10/20at 18:52; Start 12/10/20 at 19:00; Stop 12/10/20 at 19:01; Status DC Daptomycin 500 mg/ Sodium Chloride 50 ml @ 100 mls/hr Q48H IV Last administered on 12/25/20at 17:33; Start 12/13/20 at 10:00; Stop 12/26/20 at 11:55; Status DC Lidocaine HCl (Buffered Lidocaine 1%) 3 ml STK-MED ONCE .ROUTE ; Start 12/12/20 at 10:27; Stop 12/12/20 at 10:27; Status DC Sodium Chloride 1,000 ml @ 1,000 mls/hr Q1H PRN IV hypotension; Start 12/12/20 at 12:00; Stop 12/12/20 at 17:59; Status DC Albumin Human 200 ml @ 200 mls/hr 1X PRN PRN IV Hypotension; Start 12/12/20 at 12:00; Stop 12/12/20 at 17:59; Status DC Sodium Chloride (Normal Saline Flush) 10 ml 1X PRN PRN IV AP catheter pack; Start 12/12/20 at 12:00; Stop 12/13/20 at 11:59; Status DC Sodium Chloride (Normal Saline Flush) 10 ml 1X PRN PRN IV [employer] catheter pack; Start 12/12/20 at 12:00; Stop 12/13/20 at 11:59; Status DC Info (PHARMACY MONITORING -- do not chart) 1 each PRN DAILY PRN MC SEE COMMENTS; Start 12/12/20 at 12:00; Status UNV Info (PHARMACY MONITORING -- do not chart) 1 each PRN DAILY PRN MC SEE COMMENTS; Start 12/12/20 at 12:00; Status Cancel Lidocaine HCl (Buffered Lidocaine 1%) 4 ml 1X ONCE INJ Last administered on 12/12/20at 13:11; Start 12/12/20 at 13:15; Stop 12/12/20 at 13:18; Status DC Sodium Chloride 1,000 ml @ 1,000 mls/hr Q1H PRN IV hypotension; Start 12/13/20 at 09:30; Stop 12/13/20 at 15:29; Status DC Sodium Chloride 1,000 ml @ 400 mls/hr Q2H30M PRN IV PATENCY; Start 12/13/20 at 09:30; Stop 12/13/20 at 21:29; Status DC Info (PHARMACY MONITORING -- do not chart) 1 each PRN DAILY PRN MC SEE COMMENTS; Start 12/13/20 at 09:30; Status UNV Info (PHARMACY MONITORING -- do not chart) 1 each PRN DAILY PRN MC SEE COMMENTS; Start 12/13/20 at 09:30; Status UNV Epoetin Krishna-epbx (RETACRIT for ESRD PTS) 10,000 unit [id number]@2100 SQ Last administered on 12/28/20at 22:16; Start 12/14/20 at 21:00 Sodium Chloride 1,000 ml @ 1,000 mls/hr Q1H PRN IV hypotension; Start 12/15/20 at 07:00; Stop 12/15/20 at 12:59; Status DC Sodium Chloride 1,000 ml @ 400 mls/hr Q2H30M PRN IV PATENCY; Start 12/15/20 at 07:00; Stop 12/15/20 at 18:59; Status DC Info (PHARMACY MONITORING -- do not chart) 1 each PRN DAILY PRN MC SEE COMMENTS; Start 12/15/20 at 07:00; Stop 12/15/20 at 07:00; Status DC Info (PHARMACY MONITORING -- do not chart) 1 each PRN DAILY PRN MC SEE COMMENTS; Start 12/15/20 at 07:00; Stop 12/15/20 at 07:00; Status DC Sodium Chloride 1,000 ml @ 1,000 mls/hr Q1H PRN IV hypotension; Start 12/17/20 at 10:30; Stop 12/17/20 at 16:29; Status DC Albumin Human 200 ml @ 200 mls/hr 1X PRN PRN IV Hypotension Last administered on 12/17/20at 11:15; Start 12/17/20 at 10:30; Stop 12/17/20 at 16:29; Status DC Sodium Chloride 1,000 ml @ 400 mls/hr Q2H30M PRN IV PATENCY; Start 12/17/20 at 10:30; Stop 12/17/20 at 22:29; Status DC Info (PHARMACY MONITORING -- do not chart) 1 each PRN DAILY PRN MC SEE COMMENTS; Start 12/17/20 at 11:15; Stop 12/19/20 at 13:24; Status DC Info (PHARMACY MONITORING -- do not chart) 1 each PRN DAILY PRN MC SEE COMMENTS; Start 12/17/20 at 11:15; Status UNV Docusate Sodium (Colace) 100 mg PRN BID PRN PO HARD STOOLS; Start 12/17/20 at 17:45 Sodium Chloride 1,000 ml @ 30 mls/hr Q24H IV Last administered on 12/21/20at 20:34; Start 12/18/20 at 18:45; Stop 12/27/20 at 13:08; Status DC Sodium Chloride 1,000 ml @ 1,000 mls/hr Q1H PRN IV hypotension; Start 12/19/20 at 08:30; Stop 12/19/20 at 14:29; Status DC Albumin Human 100 ml @ 100 mls/hr 1X PRN PRN IV Hypotension; Start 12/19/20 at 08:30; Stop 12/19/20 at 14:29; Status DC Sodium Chloride 1,000 ml @ 400 mls/hr Q2H30M PRN IV PATENCY; Start 12/19/20 at 08:30; Stop 12/19/20 at 20:29; Status DC Info (PHARMACY MONITORING -- do not chart) 1 each PRN DAILY PRN MC SEE COMMENTS; Start 12/19/20 at 08:30; Stop 12/19/20 at 13:24; Status DC Info (PHARMACY MONITORING -- do not chart) 1 each PRN DAILY PRN MC SEE COMMENTS; Start 12/19/20 at 08:30; Stop 12/21/20 at 07:55; Status DC Atorvastatin Calcium (Lipitor) 40 mg QHS PO Last administered on 12/28/20at 22:16; Start 12/19/20 at 21:00 Pantoprazole Sodium (Protonix) 40 mg DAILYAC PO Last administered on 12/24/20at 06:15; Start 12/20/20 at 09:15; Stop 12/26/20 at 10:17; Status DC Sodium Chloride 1,000 ml @ 1,000 mls/hr Q1H PRN IV hypotension; Start 12/21/20 at 08:00; Stop 12/21/20 at 13:59; Status DC Sodium Chloride 1,000 ml @ 400 mls/hr Q2H30M PRN IV PATENCY; Start 12/21/20 at 08:00; Stop 12/21/20 at 19:59; Status DC Info (PHARMACY MONITORING -- do not chart) 1 each PRN DAILY PRN MC SEE COMMENTS; Start 12/21/20 at 08:00; Stop 12/21/20 at 07:54; Status DC Info (PHARMACY MONITORING -- do not chart) 1 each PRN DAILY PRN MC SEE COMMENTS; Start 12/21/20 at 08:00; Status Cancel Cefepime HCl (Maxipime) 1 gm Q24H IVP Last administered on 12/25/20at 12:32; Start 12/22/20 at 11:00; Stop 12/26/20 at 11:56; Status DC Furosemide (Lasix) 40 mg 1X ONCE IVP Last administered on 12/22/20at 11:17; Start 12/22/20 at 11:15; Stop 12/22/20 at 11:16; Status DC Sodium Chloride 1,000 ml @ 1,000 mls/hr Q1H PRN IV hypotension; Start 12/23/20 at 10:15; Stop 12/23/20 at 16:14; Status DC Albumin Human 200 ml @ 200 mls/hr 1X PRN PRN IV Hypotension; Start 12/23/20 at 10:15; Stop 12/23/20 at 16:14; Status DC Sodium Chloride (Normal Saline Flush) 10 ml 1X PRN PRN IV AP catheter pack; Start 12/23/20 at 10:15; Stop 12/24/20 at 10:14; Status DC Sodium Chloride (Normal Saline Flush) 10 ml 1X PRN PRN IV [employer] catheter pack; Start 12/23/20 at 10:15; Stop 12/24/20 at 10:14; Status DC Sodium Chloride 1,000 ml @ 400 mls/hr Q2H30M PRN IV PATENCY; Start 12/23/20 at 10:15; Stop 12/23/20 at 22:14; Status DC Info (PHARMACY MONITORING -- do not chart) 1 each PRN DAILY PRN MC SEE COMME NTS; Start 12/23/20 at 10:15; Status UNV Info (PHARMACY MONITORING -- do not chart) 1 each PRN DAILY PRN MC SEE COMMENTS; Start 12/23/20 at 10:15; Status Cancel Aspirin (Ecotrin) 81 mg DAILYWBKFT PO Last administered on 12/24/20at 08:40; Start 12/23/20 at 13:00; Stop 12/27/20 at 10:33; Status DC Cefazolin Sodium/ Dextrose 50 ml @ 100 mls/hr 1X PREOP PRN IV PRIOR TO PROCED URE Last administered on 12/23/20at 14:46; Start 12/23/20 at 14:00; Stop 12/24/20 at 13:59; Status DC Midazolam HCl (Versed) 2 mg 1X ONCE IV Last administered on 12/23/20at 14:00; Start 12/23/20 at 14:00; Stop 12/23/20 at 14:06; Status DC Fentanyl Citrate (Fentanyl 2ml Vial) 100 mcg 1X ONCE IV Last administered on 12/23/20at 14:00; Start 12/23/20 at 14:00; Stop 12/23/20 at 14:06; Status DC Cefazolin Sodium/ Dextrose 50 ml @ As Directed STK-MED ONCE IV ; Start 12/23/20 at 13:57; Stop 12/23/20 at 13:58; Status DC Lidocaine/ Epinephrine (LIDOCAINE 1%-EPI 1:100,000 Multi-Dose) 20 ml STK-MED ONCE .ROUTE ; Start 12/23/20 at 13:58; Stop 12/23/20 at 13:58; Status DC Lidocaine/ Epinephrine (LIDOCAINE 1%-EPI 1:100,000 Multi-Dose) 20 ml 1X ONCE INJ Last administered on 12/23/20at 14:15; Start 12/23/20 at 14:15; Stop 12/23/20 at 14:16; Status DC Linezolid (Zyvox) 600 mg BID PO Last administered on 12/24/20at 22:38; Start 12/24/20 at 11:00; Stop 12/25/20 at 10:48; Status DC Magnesium Sulfate 50 ml @ 25 mls/hr PRN DAILY PRN IV for Mag < 1.7 on am labs; Start 12/25/20 at 09:15 Dextrose (Dextrose 50%-Water Syringe) 25 gm STK-MED ONCE IV ; Start 12/25/20 at 22:23; Stop 12/25/20 at 22:23; Status DC Furosemide (Lasix) 40 mg 1X ONCE IVP Last administered on 12/25/20at 23:16; Start 12/25/20 at 23:00; Stop 12/25/20 at 23:05; Status DC Sodium Chloride 1,000 ml @ 1,000 mls/hr Q1H PRN IV hypotension; Start 12/26/20 at 08:45; Stop 12/26/20 at 14:44; Status DC Albumin Human 200 ml @ 200 mls/hr 1X ONCE IV Last administered on 12/27/20at 08:58; Start 12/26/20 at 08:45; Stop 12/26/20 at 09:44; Status DC Sodium Chloride 1,000 ml @ 400 mls/hr Q2H30M PRN IV PATENCY; Start 12/26/20 at 08:45; Stop 12/26/20 at 20:44; Status DC Info (PHARMACY MONITORING -- do not chart) 1 each PRN DAILY PRN MC SEE COMMENTS; Start 12/26/20 at 08:45; Status Cancel Pantoprazole Sodium (PROTONIX VIAL for IV PUSH) 40 mg DAILYAC IVP Last administered on 12/29/20at 08:23; Start 12/27/20 at 07:30 Dextrose (Dextrose 50%-Water Syringe) 25 gm STK-MED ONCE IV ; Start 12/26/20 at 10:54; Stop 12/26/20 at 10:55; Status DC Cefazolin Sodium (Ancef) 1 gm Q24H IVP Last administered on 12/26/20at 15:29; Start 12/26/20 at 16:00; Stop 12/27/20 at 10:37; Status DC Dextrose (Dextrose 50%-Water Syringe) 25 gm STK-MED ONCE IV ; Start 12/25/20 at 22:30; Stop 12/26/20 at 14:10; Status DC Norepinephrine Bitartrate 8 mg/ Dextrose 258 ml @ 18.286 mls/ hr CONT PRN IV PER PROTOCOL Last administered on 12/29/20at 05:57; Start 12/26/20 at 19:15; Stop 12/29/20 at 10:50; Status DC Fentanyl Citrate 30 ml @ 0 mls/hr CONT PRN IV SEE PROTOCOL Last administered on 12/29/20at 02:54; Start 12/26/20 at 19:15 Midazolam HCl 100 ml @ 0 mls/hr CONT PRN IV SEE PROTOCOL Last administered on 12/28/20at 22:31; Start 12/26/20 at 19:15 Vecuronium [place] (Norcuron Bolus) 6 mg PRN 1X PRN IV VENT INDUCTION; Start 12/26/20 at 19:15; Stop 12/27/20 at 19:14; Status DC Glycerin/ Hypromellose/ Polyethylene (Artificial Tears) 1 drop PRN Q1HR PRN OU DRY EYE; Start 12/26/20 at 19:15 Dexmedetomidine HCl 400 mcg/ Sodium Chloride 100 ml @ 4.725 mls/ hr CONT PRN IV PER PROTOCOL; Start 12/26/20 at 19:15 Midazolam HCl (Versed) 5 mg PRN 1X PRN IVP VENT INDUCTION; Start 12/26/20 at 19:15; Stop 12/27/20 at 19:14; Status DC Sodium Chloride 500 ml @ 500 mls/hr 1X PRN PRN IV SEE COMMENTS; Start 12/26/20 at 19:15 Atropine Sulfate (ATROPINE 0.5mg SYRINGE) 0.5 mg PRN Q5MIN PRN IV SEE COMMENTS; Start 12/26/20 at 19:15 Famotidine (Pepcid Vial) 20 mg BID IVP Last administered on 12/27/20at 09:00; Start 12/26/20 at 21:00; Stop 12/27/20 at 10:19; Status DC Ringer's Solution 1,000 ml @ 100 mls/hr Q10H IV Last administered on 12/28/20at 04:37; Start 12/26/20 at 19:30; Stop 12/29/20 at 10:28; Status DC Etomidate (Amidate) 20 mg STK-MED ONCE IV ; Start 12/26/20 at 19:19; Stop 12/26/20 at 19:19; Status DC Succinylcholine Chloride (Anectine) 200 mg 1X ONCE IV Last administered on 12/26/20at 19:38; Start 12/26/20 at 21:15; Stop 12/26/20 at 21:16; Status DC Etomidate (Amidate) 20 mg 1X ONCE IV Last administered on 12/26/20at 19:38; Start 12/26/20 at 21:15; Stop 12/26/20 at 21:16; Status DC Dextrose (Dextrose 50%-Water Syringe) 12.5 gm PRN Q15MIN PRN IV SEE COMMENTS Last administered on 12/28/20at 01:20; Start 12/27/20 at 07:30 Sodium Chloride 1,000 ml @ 1,000 mls/hr Q1H PRN IV hypotension; Start 12/27/20 at 08:15; Stop 12/27/20 at 14:14; Status DC Albumin Human 200 ml @ 200 mls/hr 1X PRN PRN IV Hypotension; Start 12/27/20 at 08:15; Stop 12/27/20 at 14:14; Status DC Sodium Chloride 1,000 ml @ 400 mls/hr Q2H30M PRN IV PATENCY; Start 12/27/20 at 08:15; Stop 12/27/20 at 20:14; Status DC Info (PHARMACY MONITORING -- do not chart) 1 each PRN DAILY PRN MC SEE COMMENTS; Start 12/27/20 at 08:15; Stop 12/28/20 at 09:54; Status DC Dextrose (Dextrose 50%-Water Syringe) 25 gm STK-MED ONCE IV ; Start 12/26/20 at 11:00; Stop 12/27/20 at 08:58; Status DC Phytonadione (Vitamin K Ampule) 10 mg 1X ONCE SQ Last administered on 12/27/20at 11:08; Start 12/27/20 at 09:45; Stop 12/27/20 at 09:49; Status DC Daptomycin 510 mg/ Sodium Chloride 50 ml @ 100 mls/hr QODAY IV Last administered on 12/27/20at 13:31; Start 12/27/20 at 12:00 Meropenem 500 mg/ Sodium Chloride 50 ml @ 100 mls/hr DAILY IV Last administered on 12/28/20at 11:16; Start 12/27/20 at 11:00 Linezolid (Zyvox) 600 mg BID PO Last administered on 12/27/20at 21:48; Start 12/27/20 at 12:00; Stop 12/28/20 at 08:25; Status DC Aspirin (Aspirin Chewable) 81 mg DAILYWBKFT PO Last administered on 12/28/20at 10:10; Start 12/27/20 at 12:00; Stop 12/28/20 at 11:44; Status DC Aspirin (Aspirin Chewable) 81 mg 1X ONCE PO ; Start 12/27/20 at 10:45; Stop 12/27/20 at 10:46; Status UNV Fentanyl Citrate 55 ml @ 0 mls/hr CONT PRN IV PAIN; Start 12/27/20 at 12:45; Status Cancel Sodium Chloride 1,000 ml @ 1,000 mls/hr Q1H PRN IV hypotension; Start 12/28/20 at 07:15; Stop 12/28/20 at 13:14; Status DC Albumin Human 200 ml @ 200 mls/hr 1X ONCE IV Last administered on 12/28/20at 08:22; Start 12/28/20 at 07:45; Stop 12/28/20 at 08:44; Status DC Sodium Chloride 1,000 ml @ 400 mls/hr Q2H30M PRN IV PATENCY; Start 12/28/20 at 07:15; Stop 12/28/20 at 19:14; Status DC Info (PHARMACY MONITORING -- do not chart) 1 each PRN DAILY PRN MC SEE COMMENTS; Start 12/28/20 at 07:15 Phytonadione (Vitamin K Ampule) 10 mg 1X ONCE SQ Last administered on 12/28/20at 10:10; Start 12/28/20 at 08:15; Stop 12/28/20 at 08:16; Status DC Potassium Phosphate 15 mmol/ Sodium Chloride 105 ml @ 52.5 mls/hr 1X ONCE IV Last administered on 12/28/20at 13:32; Start 12/28/20 at 14:00; Stop 12/28/20 at 15:59; Status DC Magnesium Sulfate 50 ml @ 25 mls/hr 1X ONCE IV Last administered on 12/28/20at 13:33; Start 12/28/20 at 12:45; Stop 12/28/20 at 14:44; Status DC Sodium Phosphate 40 mmol/Sodium Chloride 263.3333 ml @ 62.5 mls/hr 1X ONCE IV Last administered on 12/29/20at 09:51; Start 12/29/20 at 10:00; Stop 12/29/20 at 14:12 Norepinephrine Bitartrate 32 mg/ Dextrose 250 ml @ 4.603 mls/ hr CONT PRN IV SEE I/O RECORD Last administered on 12/29/20at 11:40; Start 12/29/20 at 11:00 Phytonadione (Vitamin K Ampule) 10 mg 1X ONCE SQ Last administered on 12/29/20at 11:40; Start 12/29/20 at 11:00; Stop 12/29/20 at 11:05; Status DC Active Scripts Active Nafcillin 2 Gm/ 100 Ml Inj (Nafcillin In Dextrose,Iso-Osm) 2 Gm/100 Ml Froz.p hoang 2 Gm IV Q4HRS 30 Days Reported Acetaminophen 325 Mg Tablet 650 Mg PO QHS Aspirin 81 Mg Tab.chew 1 Tab PO DAILY Men's Multivitamin Tablet (Multivit-Min/Folic/Vit K/Lycop) 1 Each Tablet 1 Each PO DAILY Pravastatin Sodium 80 Mg Tablet 1 Tab PO DAILY Lasix (Furosemide) 40 Mg Tablet 1 Tab PO DAILY Colace (Docusate Sodium) 100 Mg Capsule 1 Cap PO PRN BID PRN Vitals/I & O Vital Sign - Last 24 Hours 12/28/20 12/28/20 12/28/20 12/28/20 14:30 15:00 15:28 16:00 Temp 99.4 99.4 Pulse 75 75 70 Resp 16 16 16 B/P (MAP) 102/44 103/50 108/47 Pulse Ox 98 98 97 95 O2 Delivery Ventilator Ventilator Ventilator Ventilator 12/28/20 12/28/20 12/28/20 12/28/20 16:00 17:00 17:32 18:55 Pulse 75 Resp 17 B/P (MAP) 100/51 Pulse Ox 95 95 96 O2 Delivery Mechanical Ventilator Ventilator Ventilator Ventilator 12/28/20 12/28/20 12/28/2021 19:00 20:00 20:00 21:00 Temp 100.0 100.0 Pulse 66 68 72 Resp 16 16 16 B/P (MAP) 100/24 109/48 97/51 Pulse Ox 96 96 97 O2 Delivery Ventilator Ventilator Mechanical Ventilator Ventilator 12/28/20 12/28/20 12/28/20 12/28/20 21:25 22:00 23:00 23:45 Pulse 70 68 Resp 16 16 B/P (MAP) 102/50 101/52 Pulse Ox 97 97 97 94 O2 Delivery Ventilator Ventilator Ventilator Ventilator 12/29/20 12/29/20 12/29/20 12/29/20 00:00 00:00 01:00 02:00 Temp 100.1 100.1 Pulse 67 67 68 Resp 16 16 16 B/P (MAP) 118/57 108/53 110/55 Pulse Ox 98 98 98 O2 Delivery Ventilator Mechanical Ventilator Ventilator Ventilator 12/29/20 12/29/20 12/29/20 12/29/20 02:20 03:00 04:00 04:00 Temp 99.8 99.8 Pulse 68 70 Resp 16 16 B/P (MAP) 109/58 109/59 Pulse Ox 97 97 98 O2 Delivery Ventilator Ventilator Ventilator Mechanical Ventilator 12/29/20 12/29/20 12/29/20 12/29/20 05:00 05:15 06:00 07:00 Pulse 68 72 74 Resp 16 16 16 B/P (MAP) 104/55 114/52 112/58 Pulse Ox 97 97 98 98 O2 Delivery Ventilator Ventilator Ventilator Ventilator 12/29/20 12/29/20 12/29/20 12/29/20 07:04 08:00 08:00 09:00 Temp 99.3 99.3 Pulse 70 64 Resp 16 16 B/P (MAP) 118/59 108/62 Pulse Ox 98 99 98 O2 Delivery Ventilator Ventilator Mechanical Ventilator Ventilator 12/29/20 12/29/20 12/29/20 12/29/20 09:20 10:00 11:00 11:24 Pulse 73 69 Resp 16 16 B/P (MAP) 115/59 116/53 Pulse Ox 98 100 100 100 O2 Delivery Ventilator Ventilator Ventilator Ventilator 12/29/20 12/29/20 12/29/20 12/29/20 11:52 11:55 12:30 12:45 Temp 99.6 99.6 99.7 99.6 99.6 99.7 Pulse 69 74 67 Resp 16 16 16 B/P (MAP) 124/72 104/55 118/57 Pulse Ox 94 O2 Delivery Mechanical Ventilator Ventilator 12/29/20 13:00 Pulse 72 Resp 16 B/P (MAP) 111/50 Pulse Ox 96 O2 Delivery Ventilator Intake and Output 12/28/20 12/28/20 12/29/20 15:00 23:00 07:00 Intake Total 250 ml 1660 ml 1029 ml Output Total 50 ml 80 ml 0 ml Balance 200 ml 1580 ml 1029 ml Justicifation of Admission Dx: Justifications for Admission: Justification of Admission Dx: N/A JUDI CORNEJO MD Dec 29, 2020 13:15
[2020-12-29] MEDS ORDERED: IV NORMAL SALINE 1000ML BAG 1,000 ML IV PRN ×2 (14:30)
[2020-12-29] MEDS ORDERED: DIALYSIS PATIENT. MC PRN (14:30)
[2020-12-29] MEDS: MEROPENEM 500 MG in IV NORMAL SALINE 50ML 50 ML IV SCH (16:36)
[2020-12-29] MEDS: DAPTOmycin (GENERIC) IVPB 510 MG in IV NORMAL SALINE 50ML 50 ML IV SCH (17:13)
[2020-12-29] MEDS: DEXTROSE 50% 25 GM / 50ML DISP.SYRIN. IV PRN (17:21)
[2020-12-29 17:50] LABS: HEMATOCRIT 24.3 % (39.0-53.0); HEMOGLOBIN 8.1 g/dL (13.0-17.5)
[2020-12-29] MEDS: ATORVASTATIN CALCIUM 20 MG TABLET PO SCH (20:45)
[2020-12-29] MEDS: ACETAMINOPHEN 325 MG TABLET. PO SCH (20:45)
[2020-12-30] VITALS (34 sets, daily range): BP systolic 79–142; BP diastolic 42–67
[2020-12-30] MEDS: DEXTROSE 50% 25 GM / 50ML DISP.SYRIN. IV PRN (01:07)
[2020-12-30] MEDS: NOREPINEPHRINE VIAL 32 MG in IV D5W 250ML IV PRN (04:13)
[2020-12-30 06:41] LABS: BASO # 0.2 x10^3/uL (0.0-0.2); BASO % 1 % (0-3); EOS # 0.5 x10^3/uL (0.0-0.7); EOS % 3 % (0-3); HEMATOCRIT 24.6 % (39.0-53.0); HEMOGLOBIN 8.1 g/dL (13.0-17.5); LYMPH # 1.7 x10^3/uL (1.0-4.8); LYMPH % 11 % (24-48); MEAN CORPUSCULAR HEMOGLOBIN 29 pg (25-35); MEAN CORPUSCULAR HGB CONC 33 g/dL (31-37); MEAN CORPUSCULAR VOLUME 89 fL (79-100); MONO % 6 % (0-9); NEUT # 12.4 x10^3/uL (1.8-7.7); NEUT % 79 % (31-73); PLATELET COUNT 53 x10^3/uL (140-400); RED BLOOD COUNT 2.76 x10^6/uL (4.30-5.70); RED CELL DISTRIBUTION WIDTH 24.5 % (11.5-14.5); WHITE BLOOD COUNT 15.7 x10^3/uL (4.0-11.0)
[2020-12-30 06:51] LABS: PROTHROMBIN TIME PATIENT 23.1 SEC (11.7-14.0)
[2020-12-30 06:58] LABS: ALBUMIN 2.1 g/dL (3.4-5.0); ALBUMIN/GLOBULIN RATIO 0.5 (1.0-1.7); CALCIUM 7.2 mg/dL (8.5-10.1); CREATININE 3.6 mg/dL (0.7-1.3); GFR 16.3; MAGNESIUM 2.1 mg/dL (1.8-2.4); PHOSPHORUS 3.6 mg/dL (2.6-4.7); POTASSIUM 3.8 mmol/L (3.5-5.1); TOTAL BILIRUBIN 11.8 mg/dL (0.2-1.0); TOTAL PROTEIN 6.2 g/dL (6.4-8.2)
[2020-12-30] MEDS ORDERED: DIALYSIS PATIENT. MC PRN (07:00)
[2020-12-30] MEDS ORDERED: ALBUMIN HUMAN 25% 200 ML IV ONE (07:00)
[2020-12-30] MEDS ORDERED: IV NORMAL SALINE 1000ML BAG 1,000 ML IV PRN ×2 (07:00)
[2020-12-30] MEDS: POLYETHYLENE GLYCOL 3350 17 GM PACKET. PO PRN (07:24)
[2020-12-30] MEDS: PANTOPRAZOLE IV PUSH 40 MG VIAL. IVP SCH (07:24)
--- NOTE | 2020-12-30 08:23 | PDOC ---
PULMONARY PROGRESS NOTES DATE: 12/30/20 TIME: 08:23 Subjective Patient remains critically ill Appears to be jaundice Rate of 16 tidal volume 550% FiO2 5 of PEEP Vitals Vital Signs Date Time Temp Pulse Resp B/P (MAP) Pulse Ox O2 Delivery O2 Flow Rate FiO2 12/30/20 08:00 Mechanical Ventilator 12/30/20 07:40 100 12/30/20 06:00 73 16 116/56 12/30/20 04:00 99.7 99.7 12/30/20 02:46 15.0 Lungs: Clear Cardiovascular: S1, S2 Abdomen: Soft Extremities: Other (Edema) Skin: Warm Labs Laboratory Tests Test 12/28/20 15:22 12/28/20 23:59 12/29/20 04:55 12/29/20 07:15 Glucose (Fingerstick) 75 mg/dL (70-99) 77 mg/dL (70-99) White Blood Count 14.7 x10^3/uL (4.0-11.0) Red Blood Count 2.33 x10^6/uL (4.30-5.70) Hemoglobin 6.8 g/dL (13.0-17.5) Hematocrit 21.1 % (39.0-53.0) Mean Corpuscular Volume 90 fL (79-100) Mean Corpuscular Hemoglobin 29 pg (25-35) Mean Corpuscular Hemoglobin Concent 32 g/dL (31-37) Red Cell Distribution Width 28.7 % (11.5-14.5) Platelet Count 65 x10^3/uL (140-400) Neutrophils (%) (Auto) 86 % (31-73) Lymphocytes (%) (Auto) 8 % (24-48) Monocytes (%) (Auto) 5 % (0-9) Eosinophils (%) (Auto) 1 % (0-3) Basophils (%) (Auto) 1 % (0-3) Neutrophils # (Auto) 12.7 x10^3/uL (1.8-7.7) Lymphocytes # (Auto) 1.1 x10^3/uL (1.0-4.8) Monocytes # (Auto) 0.7 x10^3/uL (0.0-1.1) Eosinophils # (Auto) 0.2 x10^3/uL (0.0-0.7) Basophils # (Auto) 0.1 x10^3/uL (0.0-0.2) Haptoglobin 12 mg/dL (38-329) Prothrombin Time 26.9 SEC (11.7-14.0) Prothromb Time International Ratio 2.5 (0.8-1.1) Sodium Level 136 mmol/L (136-145) Potassium Level 4.1 mmol/L (3.5-5.1) Chloride Level 99 mmol/L (98-107) Carbon Dioxide Level 29 mmol/L (21-32) Anion Gap 8 (6-14) Blood Urea Nitrogen 13 mg/dL (8-26) Creatinine 2.5 mg/dL (0.7-1.3) Estimated GFR (Cockcroft-Gault) 24.8 BUN/Creatinine Ratio 5 (6-20) Glucose Level 90 mg/dL (70-99) Calcium Level 7.4 mg/dL (8.5-10.1) Phosphorus Level 1.5 mg/dL (2.6-4.7) Magnesium Level 2.2 mg/dL (1.8-2.4) Total Bilirubin 7.9 mg/dL (0.2-1.0) Aspartate Amino Transf (AST/SGOT) 579 U/L (15-37) Alanine Aminotransferase (ALT/SGPT) 71 U/L (16-63) Alkaline Phosphatase 156 U/L (46-116) Total Protein 6.2 g/dL (6.4-8.2) Albumin 2.2 g/dL (3.4-5.0) Albumin/Globulin Ratio 0.6 (1.0-1.7) O2 Saturation 89 % (92-99) Arterial Blood pH 7.36 (7.35-7.45) Arterial Blood pCO2 at Patient Temp 49 mmHg (35-46) Arterial Blood pO2 at Patient Temp 56 mmHg (65-108) Arterial Blood HCO3 28 mmol/L (21-28) Arterial Blood Base Excess 2 mmol/L (-3-3) FiO2 50/vent Test 12/29/20 11:32 12/29/20 17:19 12/29/20 17:34 12/29/20 17:35 Glucose (Fingerstick) 83 mg/dL (70-99) 43 mg/dL (70-99) 195 mg/dL (70-99) Hemoglobin 8.1 g/dL (13.0-17.5) Hematocrit 24.3 % (39.0-53.0) Mean Corpuscular Hemoglobin Concent 33 g/dL (31-37) Test 12/30/20 01:02 12/30/20 01:17 12/30/20 01:31 12/30/20 06:32 Glucose (Fingerstick) 44 mg/dL (70-99) 75 mg/dL (70-99) 119 mg/dL (70-99) 78 mg/dL (70-99) Test 12/30/20 06:35 White Blood Count 15.7 x10^3/uL (4.0-11.0) Red Blood Count 2.76 x10^6/uL (4.30-5.70) Hemoglobin 8.1 g/dL (13.0-17.5) Hematocrit 24.6 % (39.0-53.0) Mean Corpuscular Volume 89 fL (79-100) Mean Corpuscular Hemoglobin 29 pg (25-35) Mean Corpuscular Hemoglobin Concent 33 g/dL (31-37) Red Cell Distribution Width 24.5 % (11.5-14.5) Platelet Count 53 x10^3/uL (140-400) Neutrophils (%) (Auto) 79 % (31-73) Lymphocytes (%) (Auto) 11 % (24-48) Monocytes (%) (Auto) 6 % (0-9) Eosinophils (%) (Auto) 3 % (0-3) Basophils (%) (Auto) 1 % (0-3) Neutrophils # (Auto) 12.4 x10^3/uL (1.8-7.7) Lymphocytes # (Auto) 1.7 x10^3/uL (1.0-4.8) Monocytes # (Auto) 1.0 x10^3/uL (0.0-1.1) Eosinophils # (Auto) 0.5 x10^3/uL (0.0-0.7) Basophils # (Auto) 0.2 x10^3/uL (0.0-0.2) Prothrombin Time 23.1 SEC (11.7-14.0) Prothromb Time International Ratio 2.1 (0.8-1.1) Sodium Level 136 mmol/L (136-145) Potassium Level 3.8 mmol/L (3.5-5.1) Chloride Level 99 mmol/L (98-107) Carbon Dioxide Level 29 mmol/L (21-32) Anion Gap 8 (6-14) Blood Urea Nitrogen 24 mg/dL (8-26) Creatinine 3.6 mg/dL (0.7-1.3) Estimated GFR (Cockcroft-Gault) 16.3 BUN/Creatinine Ratio 7 (6-20) Glucose Level 89 mg/dL (70-99) Calcium Level 7.2 mg/dL (8.5-10.1) Phosphorus Level 3.6 mg/dL (2.6-4.7) Magnesium Level 2.1 mg/dL (1.8-2.4) Total Bilirubin 11.8 mg/dL (0.2-1.0) Aspartate Amino Transf (AST/SGOT) 376 U/L (15-37) Alanine Aminotransferase (ALT/SGPT) 44 U/L (16-63) Alkaline Phosphatase 164 U/L (46-116) Total Protein 6.2 g/dL (6.4-8.2) Albumin 2.1 g/dL (3.4-5.0) Albumin/Globulin Ratio 0.5 (1.0-1.7) Laboratory Tests Test 12/29/20 11:32 12/29/20 17:19 12/29/20 17:34 12/29/20 17:35 Glucose (Fingerstick) 83 mg/dL (70-99) 43 mg/dL (70-99) 195 mg/dL (70-99) Hemoglobin 8.1 g/dL (13.0-17.5) Hematocrit 24.3 % (39.0-53.0) Mean Corpuscular Hemoglobin Concent 33 g/dL (31-37) Test 12/30/20 01:02 12/30/20 01:17 12/30/20 01:31 12/30/20 06:32 Glucose (Fingerstick) 44 mg/dL (70-99) 75 mg/dL (70-99) 119 mg/dL (70-99) 78 mg/dL (70-99) Test 12/30/20 06:35 White Blood Count 15.7 x10^3/uL (4.0-11.0) Red Blood Count 2.76 x10^6/uL (4.30-5.70) Hemoglobin 8.1 g/dL (13.0-17.5) Hematocrit 24.6 % (39.0-53.0) Mean Corpuscular Volume 89 fL (79-100) Mean Corpuscular Hemoglobin 29 pg (25-35) Mean Corpuscular Hemoglobin Concent 33 g/dL (31-37) Red Cell Distribution Width 24.5 % (11.5-14.5) Platelet Count 53 x10^3/uL (140-400) Neutrophils (%) (Auto) 79 % (31-73) Lymphocytes (%) (Auto) 11 % (24-48) Monocytes (%) (Auto) 6 % (0-9) Eosinophils (%) (Auto) 3 % (0-3) Basophils (%) (Auto) 1 % (0-3) Neutrophils # (Auto) 12.4 x10^3/uL (1.8-7.7) Lymphocytes # (Auto) 1.7 x10^3/uL (1.0-4.8) Monocytes # (Auto) 1.0 x10^3/uL (0.0-1.1) Eosinophils # (Auto) 0.5 x10^3/uL (0.0-0.7) Basophils # (Auto) 0.2 x10^3/uL (0.0-0.2) Prothrombin Time 23.1 SEC (11.7-14.0) Prothromb Time International Ratio 2.1 (0.8-1.1) Sodium Level 136 mmol/L (136-145) Potassium Level 3.8 mmol/L (3.5-5.1) Chloride Level 99 mmol/L (98-107) Carbon Dioxide Level 29 mmol/L (21-32) Anion Gap 8 (6-14) Blood Urea Nitrogen 24 mg/dL (8-26) Creatinine 3.6 mg/dL (0.7-1.3) Estimated GFR (Cockcroft-Gault) 16.3 BUN/Creatinine Ratio 7 (6-20) Glucose Level 89 mg/dL (70-99) Calcium Level 7.2 mg/dL (8.5-10.1) Phosphorus Level 3.6 mg/dL (2.6-4.7) Magnesium Level 2.1 mg/dL (1.8-2.4) Total Bilirubin 11.8 mg/dL (0.2-1.0) Aspartate Amino Transf (AST/SGOT) 376 U/L (15-37) Alanine Aminotransferase (ALT/SGPT) 44 U/L (16-63) Alkaline Phosphatase 164 U/L (46-116) Total Protein 6.2 g/dL (6.4-8.2) Albumin 2.1 g/dL (3.4-5.0) Albumin/Globulin Ratio 0.5 (1.0-1.7) Medications Active Scripts Medications Dose Route/Sig Max Daily Dose Days Date Category Nafcillin 2 Gm/ 100 Ml Inj (Nafcillin In Dextrose,Iso-Osm) 2 Gm/100 Ml Froz.piggy 2 Gm IV Q4HRS 30 12/16/20 Rx Acetaminophen 325 Mg Tablet 650 Mg PO QHS 11/28/20 Reported Aspirin 81 Mg Tab.chew 1 Tab PO DAILY 11/01/20 Reported Men's Multivitamin Tablet (Multivit-Min/Folic/Vit K/Lycop) 1 Each Tablet 1 Each PO DAILY 07/19/20 Reported Pravastatin Sodium 80 Mg Tablet 1 Tab PO DAILY 03/02/19 Reported Lasix (Furosemide) 40 Mg Tablet 1 Tab PO DAILY 01/11/14 Reported Colace (Docusate Sodium) 100 Mg Capsule 1 Cap PO PRN BID PRN 01/11/14 Reported Impression . IMPRESSION: 1. Acute hypoxemic respiratory failure, multifactorial. 2. Abnormal x-ray compatible with acute respiratory distress syndrome, possible pneumonia. 3. Persistent methicillin-sensitive Staph aureus bacteremia, present upon admission. 4. Right [place] joint methicillin-susceptible Staphylococcus aureus septic arthritis. 5. Metabolic toxic encephalopathy. 6. Atrial fibrillation. 7. Hypertension. 8. Liver failure. 9. Severe protein malnutrition, present upon admission. 10. Acute renal failure. 11. Septic shock Plan . Updated 12/30 Discussed with GI service WBC noted Continue current support Nutritional support Hemodialysis Patient with multiorgan failure, not expected to survive Updated 12/29 Transfuse per vp global Continue current support Negative fluid balance with hemodialysis Antibiotics per ID Nutritional support ABG noted updated PaO2 56 ANGELITO SINGH MD Dec 30, 2020 08:23
--- NOTE | 2020-12-30 09:01 | PDOC ---
MINERVA QUINONEZ CERTIFIED WELDER 12/30/20 0901: CARDIO Progress Notes Date and Time Date of Service 12/30/2020 Time of Evaluation 0840 Subjective Subjective: Other (intubated ) Vitals Vitals Vital Signs Date Time Temp Pulse Resp B/P (MAP) Pulse Ox O2 Delivery O2 Flow Rate FiO2 12/30/20 08:30 70 104/53 12/30/20 08:00 Mechanical Ventilator 12/30/20 08:00 99.2 99.2 12/30/20 07:40 100 12/30/20 07:00 16 12/30/20 02:46 15.0 Weight Weight [ ] Input and Output Intake and Output Intake and Output 12/30/20 07:00 Intake Total 1513.27 ml Output Total 0 ml Balance 1513.27 ml IV Total 699.27 ml Tube Feeding 288 ml Blood Product IV Normal Saline Flush 526 ml Output Urine Total 0 ml Laboratory Labs Laboratory Tests Test 12/29/20 11:32 12/29/20 17:19 12/29/20 17:34 12/29/20 17:35 Glucose (Fingerstick) 83 mg/dL (70-99) 43 mg/dL (70-99) 195 mg/dL (70-99) Hemoglobin 8.1 g/dL (13.0-17.5) Hematocrit 24.3 % (39.0-53.0) Mean Corpuscular Hemoglobin Concent 33 g/dL (31-37) Test 12/30/20 01:02 12/30/20 01:17 12/30/20 01:31 12/30/20 06:32 Glucose (Fingerstick) 44 mg/dL (70-99) 75 mg/dL (70-99) 119 mg/dL (70-99) 78 mg/dL (70-99) Test 12/30/20 06:35 12/30/20 07:55 White Blood Count 15.7 x10^3/uL (4.0-11.0) Red Blood Count 2.76 x10^6/uL (4.30-5.70) Hemoglobin 8.1 g/dL (13.0-17.5) Hematocrit 24.6 % (39.0-53.0) Mean Corpuscular Volume 89 fL (79-100) Mean Corpuscular Hemoglobin 29 pg (25-35) Mean Corpuscular Hemoglobin Concent 33 g/dL (31-37) Red Cell Distribution Width 24.5 % (11.5-14.5) Platelet Count 53 x10^3/uL (140-400) Neutrophils (%) (Auto) 79 % (31-73) Lymphocytes (%) (Auto) 11 % (24-48) Monocytes (%) (Auto) 6 % (0-9) Eosinophils (%) (Auto) 3 % (0-3) Basophils (%) (Auto) 1 % (0-3) Neutrophils # (Auto) 12.4 x10^3/uL (1.8-7.7) Lymphocytes # (Auto) 1.7 x10^3/uL (1.0-4.8) Monocytes # (Auto) 1.0 x10^3/uL (0.0-1.1) Eosinophils # (Auto) 0.5 x10^3/uL (0.0-0.7) Basophils # (Auto) 0.2 x10^3/uL (0.0-0.2) Prothrombin Time 23.1 SEC (11.7-14.0) Prothromb Time International Ratio 2.1 (0.8-1.1) Sodium Level 136 mmol/L (136-145) Potassium Level 3.8 mmol/L (3.5-5.1) Chloride Level 99 mmol/L (98-107) Carbon Dioxide Level 29 mmol/L (21-32) Anion Gap 8 (6-14) Blood Urea Nitrogen 24 mg/dL (8-26) Creatinine 3.6 mg/dL (0.7-1.3) Estimated GFR (Cockcroft-Gault) 16.3 BUN/Creatinine Ratio 7 (6-20) Glucose Level 89 mg/dL (70-99) Calcium Level 7.2 mg/dL (8.5-10.1) Phosphorus Level 3.6 mg/dL (2.6-4.7) Magnesium Level 2.1 mg/dL (1.8-2.4) Total Bilirubin 11.8 mg/dL (0.2-1.0) Aspartate Amino Transf (AST/SGOT) 376 U/L (15-37) Alanine Aminotransferase (ALT/SGPT) 44 U/L (16-63) Alkaline Phosphatase 164 U/L (46-116) Total Protein 6.2 g/dL (6.4-8.2) Albumin 2.1 g/dL (3.4-5.0) Albumin/Globulin Ratio 0.5 (1.0-1.7) Ammonia 51 mcmol/L (11-34) Microbiology Micro Microbiology 12/27/20 Blood Culture - Preliminary, Resulted NO GROWTH AFTER 2 DAYS 12/22/20 Gram Stain Evaluation - Final, Complete 12/22/20 Respiratory Culture - Final, Complete 12/07/20 Urine Culture - Final, Complete 12/04/20 Gram Stain - Final, Complete 12/04/20 Aerobic and Anaerobic Culture - Final, Complete Review of Systems Constitutional: yes: unresponsive Ears/Nose/Throat: Yes: no symptom reported Eyes: Yes: no symptom reported Pulmonary: Yes no symptom reported Gastrointestional: Yes: no symptom reported Genitourinary: Yes: no symptom reported Musculoskeletal: Yes: no symptom reported Skin: Yes no symptom reported Psychiatric/Neurological: Yes: no symptom reported Endocrine: Yes: no symptom reported Physical Exam HEENT: Neck Supple W Full Motion Chest: Symmetric LUNGS: Other (mechanical vent ) Heart: other (intermittent V paced with underlying AFIB. rate controlled ) Abdomen: Other (soft ) Extremities: Other (2-3+ bilateral LE pitting edema) Neurology: other (sedated ) Assessment Assessment 1. Weakness, mechanical fall with right knee effusion: s/p I & D 2. Sepsis, MSSA bacteremia: no intracardiac vegetation per SOO. 3. SSS, s/p PPM. generator change ([employer]) 11/01/2020. normal function 4. CAD: clinically stable 5. Permanent AFIB: rate controlled with intermittent v-pacing. 6. Coagulopathy due to warfarin; OAC held. s/p vit K INR at 2.1 7. Chronic diastolic CHF; echo with normal EF and WM 8. GUERO; HD initiated 9. HTN: controlled with levophed 10. HLP: on statin 11. Anemia; s/p transfusion. Mild hemoptysis persists 12. Generalized ecchymoses and petechiae Recommendations Poor candidate for OAC given anemia, fall risk Restart ECASA 81 mg for stroke prevention if no contraindication. Hematology consult pending. Secondary prevention as able Metoprolol for rate control Avoid nephrotoxins Fluid offloading via HD Ongoing treatment of sepsis/bacteremia per ID team Supportive care, pressor support Consider outpatient referral of SAFIA Martinezicifation of Admission Dx: Justifications for Admission: Justification of Admission Dx: N/A IRMA GONZALES MD 12/30/20 1542: CARDIO Progress Notes Assessment Assessment Patient seen and examined. 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 Remains intubated for acute resp failure - Continue vent management per pulmonary team. Continue fluid removal with hemodialysis for acute on chronic diastolic heart failure. Permanent atrial fibrillation rate controlled. Continue treatment of sepsis/bacteremia per ID team. SSS s/p PPM stable clinically He is poor candidate for long-term anticoagulation - consider outpatient referral for MINERVA POSADAS APRN Dec 30, 2020 09:01 IRMA GONZALES MD Dec 30, 2020 15:42
--- NOTE | 2020-12-30 09:04 | PN ---
DATE: 12/30/2020 LOCATION: He is in room ICU, 102. SUBJECTIVE: This 85-year-old male remains hospitalized, initially presenting with MSSA sepsis from a right knee source. He has developed multiorgan failure since that point in time requiring dialysis currently and with mechanical ventilation and ongoing liver issues. He is becoming progressively more bruised and I am going to ask Hematology to see him again as I do not understand completely the liver problems as his sepsis seemed to be much improved prior to all this coming on. OBJECTIVE: VITAL SIGNS: Stable. He is afebrile. He remains on norepinephrine. GENERAL: He is sedated on a ventilator with an FiO2 of 50 and PEEP of 5. CHEST: Reveals distant, but clear breath sounds. HEART: Regular rate and rhythm. ABDOMEN: Benign. He is getting on dialysis again with him being removing fluids on him more on a daily basis and requiring some albumin for pressure support during the same. EXTREMITIES: Knee appears stable. LABORATORY DATA: Hemoglobin this morning stable at 8.1 after transfusion yesterday. White count is 15,700, platelet count is down to 53,000. Bilirubin has climbed to 11.8 this morning with ongoing elevated liver function tests. INR is 2.1. ASSESSMENT: 1. Acute respiratory failure, on mechanical ventilation. 2. Elevated liver function tests and thrombocytopenia. We will ask Hematology to make sure we do not have some sort of hematological problem going on here. 3. Methicillin-susceptible Staphylococcus aureus sepsis, remains on antibiotics. 4. Acute renal failure with ongoing dialysis. PLAN: Continue supportive care. The patient's prognosis is guarded. SERA DR: Danielle TID: [id number]
--- NOTE | 2020-12-30 09:28 | PN ---
DATE: 12/29/2020 LOCATION: He is in room ICU, 102. SUBJECTIVE: This 85-year-old male remains hospitalized, initially presenting with MSSA sepsis from a right knee source of the eventual development of renal failure requiring ongoing dialysis. He now is developing liver failure with an increased bilirubin, increased INR. He also has had at this point respiratory failure and is currently mechanically ventilated on a ventilator with 50% FiO2 and 5 of PEEP. Chest x-ray with extra fluid removed from dialysis has improved somewhat suggesting fluid overload, but ARDS is certainly a big concern. Platelet count has dropped down in the 60s, but has remained stable over the last day and bilirubin is up in the 8 range this morning. ABGs show a pO2 of 59 on 50% FiO2. He remains on pressors at an increased dose this morning to maintain blood pressures. OBJECTIVE: VITAL SIGNS: Stable. He is afebrile. Again, on higher dose of pressors this morning. He is sedated, on a ventilator with an FiO2 of 50% and 5 of PEEP. CHEST: Decreased distant breath sounds. HEART: Regular rate and rhythm. ABDOMEN: Benign. LABORATORY DATA: He does have dialysis scheduled today for removal of more fluid as he can tolerate. His hemoglobin is down to 6.8 this morning and I have asked them to transfuse him during dialysis ____, but there was not anything infectious shaikh there to worry about. ASSESSMENT: 1. Acute respiratory failure, on mechanical ventilation, fluid overload versus acute respiratory distress syndrome. 2. Elevated liver function test with decreasing platelet count and increasing bilirubin and INR with GI following. 3. Methicillin-susceptible Staphylococcus aureus sepsis, on ongoing antibiotics. 4. Acute renal failure, ongoing dialysis. PLAN: We will follow labs including an INR. He remains on broad spectrum antibiotics. I will discuss case with son again this afternoon. SARAH/LINDA DR: Danielle TID: [id number]
--- NOTE | 2020-12-30 09:51 | PDOC ---
Infectious Disease Note Subjective: Subjective Patient remains critically ill intubated/sedated Requiring pressure support Afebrile d/w RN Vital Signs: Vital Signs Vital Signs Date Time Temp Pulse Resp B/P (MAP) Pulse Ox O2 Delivery O2 Flow Rate FiO2 12/30/20 09:42 100 Ventilator 12/30/20 08:30 70 104/53 12/30/20 08:00 99.2 99.2 12/30/20 07:00 16 12/30/20 02:46 15.0 Physical Exam: PHYSICAL EXAM GENERAL: Intubated/sedated HEENT: ETT OGT in place NECK: Right IJ placed , chest wall has right HDC looks clean LUNGS: Decreased HEART: S1, S2, systolic murmur present. Pacemaker site looks okay ABDOMEN: Soft, nontender, nondistended. EXTREMITIES: Right knee prepatellar swelling, mild erythema , no drainage, DERMATOLOGIC: No generalized rash, multiple purpuric lesions both feet and upper extremity.? Embolic NEUROLOGIC: Unable to assess Lines as above Medications: Inpatient Meds: Medications reviewed. Repeat blood cultures remain negative Sputum culture mixed respiratory ronnell UA, urine culture unable to do as patient is anuric Labs: Lab Laboratory Tests Test 12/29/20 11:32 12/29/20 17:19 12/29/20 17:34 12/29/20 17:35 Glucose (Fingerstick) 83 mg/dL (70-99) 43 mg/dL (70-99) 195 mg/dL (70-99) Hemoglobin 8.1 g/dL (13.0-17.5) Hematocrit 24.3 % (39.0-53.0) Mean Corpuscular Hemoglobin Concent 33 g/dL (31-37) Test 12/30/20 01:02 12/30/20 01:17 12/30/20 01:31 12/30/20 06:32 Glucose (Fingerstick) 44 mg/dL (70-99) 75 mg/dL (70-99) 119 mg/dL (70-99) 78 mg/dL (70-99) Test 12/30/20 06:35 12/30/20 07:55 White Blood Count 15.7 x10^3/uL (4.0-11.0) Red Blood Count 2.76 x10^6/uL (4.30-5.70) Hemoglobin 8.1 g/dL (13.0-17.5) Hematocrit 24.6 % (39.0-53.0) Mean Corpuscular Volume 89 fL (79-100) Mean Corpuscular Hemoglobin 29 pg (25-35) Mean Corpuscular Hemoglobin Concent 33 g/dL (31-37) Red Cell Distribution Width 24.5 % (11.5-14.5) Platelet Count 53 x10^3/uL (140-400) Neutrophils (%) (Auto) 79 % (31-73) Lymphocytes (%) (Auto) 11 % (24-48) Monocytes (%) (Auto) 6 % (0-9) Eosinophils (%) (Auto) 3 % (0-3) Basophils (%) (Auto) 1 % (0-3) Neutrophils # (Auto) 12.4 x10^3/uL (1.8-7.7) Lymphocytes # (Auto) 1.7 x10^3/uL (1.0-4.8) Monocytes # (Auto) 1.0 x10^3/uL (0.0-1.1) Eosinophils # (Auto) 0.5 x10^3/uL (0.0-0.7) Basophils # (Auto) 0.2 x10^3/uL (0.0-0.2) Prothrombin Time 23.1 SEC (11.7-14.0) Prothromb Time International Ratio 2.1 (0.8-1.1) Sodium Level 136 mmol/L (136-145) Potassium Level 3.8 mmol/L (3.5-5.1) Chloride Level 99 mmol/L (98-107) Carbon Dioxide Level 29 mmol/L (21-32) Anion Gap 8 (6-14) Blood Urea Nitrogen 24 mg/dL (8-26) Creatinine 3.6 mg/dL (0.7-1.3) Estimated GFR (Cockcroft-Gault) 16.3 BUN/Creatinine Ratio 7 (6-20) Glucose Level 89 mg/dL (70-99) Calcium Level 7.2 mg/dL (8.5-10.1) Phosphorus Level 3.6 mg/dL (2.6-4.7) Magnesium Level 2.1 mg/dL (1.8-2.4) Total Bilirubin 11.8 mg/dL (0.2-1.0) Aspartate Amino Transf (AST/SGOT) 376 U/L (15-37) Alanine Aminotransferase (ALT/SGPT) 44 U/L (16-63) Alkaline Phosphatase 164 U/L (46-116) Total Protein 6.2 g/dL (6.4-8.2) Albumin 2.1 g/dL (3.4-5.0) Albumin/Globulin Ratio 0.5 (1.0-1.7) Ammonia 51 mcmol/L (11-34) Micro Chest x-ray IMPRESSION: 1. Increase in diffuse mixed interstitial and alveolar infiltrate and small pleural effusions. 2. Stable cardiomegaly and cardiac pacemaker. 3. Right internal jugular catheter with the tip overlying expected position of the superior cavoatrial junction. Objective: Assessment: Patient with prolonged hospitalization and complicated medical course now with multiorgan failure Persistent methicillin sensitive staph aureus bacteremia 4 of 4 bottles present on admission 11/28/2020, November 30 and December 02 History of PPM.H/O recent battery exchange. SOO negative for vegetation or thrombus Rt [place] joint MSSA septic arthritis status post synovial aspirate WBC 30,000 RBC 66,000 Status post irrigation debridement of right knee joint and prepatellar bursa on December 04, 2020 Cultures positive for MSSA Sepsis Leukocytosis and lactic acidosis Thrombocytopenia acute Respiratory failure status post intubation on 12/26/2020/appears multifactorial ARDS D Dimer elevated Encephalopathy Anemia status post PRBC 12/27/2020 History of fall present on admission. GUERO on HD urine eosinophil negative Abnormal LFTs likely shock liver Encephalopathy appears metabolic History of atrial fibrillation. CHF status post PPM Hypertension. Coagulopathy on admission Nausea and vomiting couple of days ago which had resolved Plan: Plan of Care Continue daptomycin and meropenem Monitor labs and cultures, blood culture remain negative, UA and urine culture not done as patient is anuric Wound care as directed by orthopedics Hematology consulted Critically ill Overall long-term prognosis is very poor Consider palliative care/comfort measures Discussed with nursing staff ELIZABETH BALLESTEROS MD Dec 30, 2020 09:51
--- NOTE | 2020-12-30 10:00 | PDOC ---
DATE OF SERVICE DATE: 12/30/20 TIME: 10:00 SUBJECTIVE ROS Remains intubated OBJECTIVE Vital Signs Vital Signs Date Time Temp Pulse Resp B/P (MAP) Pulse Ox O2 Delivery O2 Flow Rate FiO2 12/30/20 09:42 100 Ventilator 12/30/20 08:30 70 104/53 12/30/20 08:00 99.2 99.2 12/30/20 07:00 16 12/30/20 02:46 15.0 I & 0 Intake and Output 12/30/20 07:00 Intake Total 1513.27 ml Output Total 0 ml Balance 1513.27 ml IV Total 699.27 ml Tube Feeding 288 ml Blood Product IV Normal Saline Flush 526 ml Output Urine Total 0 ml PHYSICAL EXAM Physical Exam GENERAL: Intubated/sedated HEENT: Normocephalic, atraumatic. icteric+. NECK: right HDC LUNGS: Decreased at bases HEART: S1, S2, systolic murmur present. Pacemaker + ABDOMEN: Soft, nontender, nondistended. EXTREMITIES: Right knee prepatellar swelling, erythema and warmth are improving cool,mottled digits DERMATOLOGIC: No generalized rash, Skin Jaundiced NEUROLOGIC: Unable to assess, sedated Susan Mejia DIAGNOSIS/ASSESSMENT Assessment & Plan GUERO - ATN 2/ 2 Hypotension/ Sepsis Anuric- Requiring Dialysis 1st on 12/12 ; Dialysis again today . Seen during treatment, tolerating well. Continue as ordered IV Albumin Prn . Discussed treatment plan with Jeanette Davis Renal Recovery supportive care , strict I/O . DC IVF Access Currently has Temp HDC . HypoKalemia - K normal HypoPhos Normal today HypoMg- Normal today Acute hypoxemic respiratory failure, multifactorial- Transferred to ICU, Intubated, On MV . Abnormal x-ray compatible with acute respiratory distress syndrome, possible pneumonia. Anemia required PRBC. continue LIDIA . Recent PRBC HyperBilirubinemia- GI following Persistent methicillin sensitive staph aureus bacteremia 4 of 4 bottles present on admission 11/28/2020 .History of PPM.H/O recent battery exchange. SOO negative for vegetation or thrombus Rt [place] joint MSSA septic arthritis S/P synovial aspirate ,Status post irrigation debridement of right knee joint and prepatellar bursa on December 04, 2020.Cultures positive for MSSA History of PPM.H/O recent battery exchange. History of atrial fibrillation. COMMENT/RELEVANT DATA Meds Current Medications Medications (Trade) Dose Ordered Sig/Gia Start Time Stop Time Status Last Admin Dose Admin Acetaminophen (Tylenol) 650 mg QHS 11/29/20 21:00 12/29/20 20:45 650 MG Acetaminophen/ Hydrocodone Bitart (Lortab 10/325) 1 tab PRN Q4HRS PRN 12/05/20 20:00 12/24/20 14:02 1 TAB Acetaminophen/ Hydrocodone Bitart (Lortab 5/325) 1 tab PRN Q4HRS PRN 11/28/20 22:45 12/05/20 19:50 DC 12/05/20 17:38 1 TAB Albumin Human 200 ml @ 200 mls/hr 1X ONCE 12/30/20 07:00 12/30/20 07:59 DC 12/30/20 07:50 200 MLS/HR Aspirin (Aspirin Chewable) 81 mg 1X ONCE 12/27/20 10:45 12/27/20 10:46 UNV Aspirin (Ecotrin) 81 mg [id number] 12/23/20 13:00 12/27/20 10:33 DC 12/24/20 08:40 81 MG Atorvastatin Calcium (Lipitor) 40 mg QHS 12/19/20 21:00 12/29/20 20:45 40 MG Atropine Sulfate (ATROPINE 0.5mg SYRINGE) 0.5 mg PRN Q5MIN PRN 12/26/20 19:15 Azithromycin 250 ml @ 250 mls/hr DAILY ONCE 11/30/20 09:00 11/30/20 09:59 UNV Azithromycin 500 mg/Sodium Chloride 250 ml @ 250 mls/hr Q24H 11/29/20 15:00 11/29/20 13:50 DC Benzocaine (Hurricaine One) 1 spray STK-MED ONCE 12/05/20 10:06 12/05/20 10:07 DC Carvedilol (Coreg) 3.125 mg BIDWMEALS 12/01/20 12:00 12/05/20 20:11 DC 12/03/20 16:39 3.125 MG Cefazolin Sodium (Ancef) 1 gm Q24H 12/26/20 16:00 12/27/20 10:37 DC 12/26/20 15:29 1 GM Cefazolin Sodium/ Dextrose 50 ml @ As Directed STK-MED ONCE 12/23/20 13:57 12/23/20 13:58 DC Cefepime HCl (Maxipime) 1 gm Q24H 12/22/20 11:00 12/26/20 11:56 DC 12/25/20 12:32 1 GM Ceftriaxone Sodium (Rocephin) 2 gm Q24H 11/29/20 14:00 12/01/20 09:19 DC 11/30/20 13:21 2 GM Daptomycin 500 mg/ Sodium Chloride 50 ml @ 100 mls/hr Q48H 12/13/20 10:00 12/26/20 11:55 DC 12/25/20 17:33 100 MLS/HR Daptomycin 510 mg/ Sodium Chloride 50 ml @ 100 mls/hr QODAY 12/27/20 12:00 12/29/20 17:13 100 MLS/HR Daptomycin 580 mg/ Sodium Chloride 50 ml @ 100 mls/hr Q24H 12/01/20 07:30 12/01/20 09:19 DC 12/01/20 08:52 100 MLS/HR Dexamethasone Sodium Phosphate (Decadron) 4 mg STK-MED ONCE 12/04/20 11:26 12/04/20 11:26 DC Dexmedetomidine HCl 400 mcg/ Sodium Chloride 100 ml @ 4.725 mls/ hr CONT PRN 12/26/20 19:15 Dextrose (Dextrose 50%-Water Syringe) 25 gm STK-MED ONCE 12/26/20 11:00 12/27/20 08:58 DC Docusate Sodium (Colace) 100 mg PRN BID PRN 12/17/20 17:45 12/30/20 07:24 100 MG Epoetin Krishna-epbx (RETACRIT for ESRD PTS) 10,000 unit MoWeFr@2100 12/14/20 21:00 12/28/20 22:16 10,000 UNIT Etomidate (Amidate) 20 mg 1X ONCE 12/26/20 21:15 12/26/20 21:16 DC 12/26/20 19:38 20 MG Famotidine (Pepcid Vial) 20 mg BID 12/26/20 21:00 12/27/20 10:19 DC 12/27/20 09:00 20 MG Fentanyl Citrate 55 ml @ 0 mls/hr CONT PRN 12/27/20 12:45 Cancel Fentanyl Citrate (Fentanyl 2ml Vial) 100 mcg 1X ONCE 12/23/20 14:00 12/23/20 14:06 DC 12/23/20 14:00 50 MCG Furosemide (Lasix) 40 mg 1X ONCE 12/25/20 23:00 12/25/20 23:05 DC 12/25/20 23:16 40 MG Glycerin/ Hypromellose/ Polyethylene (Artificial Tears) 1 drop PRN Q1HR PRN 12/26/20 19:15 Hydromorphone HCl (Dilaudid) 0.5 mg PRN Q10MIN PRN 12/04/20 09:30 12/05/20 09:29 DC Influenza Virus Vaccine Quadrival (Flulaval Quad [id number] Syringe) 0.5 ml ONCE ONCE 11/29/20 09:00 11/29/20 09:01 DC 11/29/20 10:06 0.5 ML Info (PHARMACY MONITORING -- do not chart) 1 each PRN DAILY PRN 12/30/20 07:00 Lactobacillus Rhamnosus (Culturelle) 1 cap BID 11/29/20 21:00 12/27/20 21:38 DC 12/24/20 22:38 1 CAP Lidocaine HCl (Buffered Lidocaine 1%) 4 ml 1X ONCE 12/12/20 13:15 12/12/20 13:18 DC 12/12/20 13:11 4 ML Lidocaine HCl (Lidocaine 1% 20ml Vial) 10 ml 1X ONCE 12/01/20 16:00 12/01/20 16:01 DC Lidocaine HCl (Lidocaine Pf 2% Vial) 5 ml STK-MED ONCE 12/04/20 10:43 12/04/20 10:43 DC Lidocaine HCl (Viscous Lidocaine) 15 ml STK-MED ONCE 12/05/20 10:06 12/05/20 10:06 DC Lidocaine HCl (Xylocaine 2% Topical 30gm Tube) 30 hiro STK-MED ONCE 12/05/20 10:06 12/05/20 10:06 DC Lidocaine/ Epinephrine (LIDOCAINE 1%-EPI 1:100,000 Multi-Dose) 20 ml 1X ONCE 12/23/20 14:15 12/23/20 14:16 DC 12/23/20 14:15 8 ML Linezolid (Zyvox) 600 mg BID 12/27/20 12:00 12/28/20 08:25 DC 12/27/20 21:48 600 MG Magnesium Sulfate 50 ml @ 25 mls/hr 1X ONCE 12/28/20 12:45 12/28/20 14:44 DC 12/28/20 13:33 25 MLS/HR Meropenem 500 mg/ Sodium Chloride 50 ml @ 100 mls/hr DAILY 12/27/20 11:00 12/29/20 16:36 100 MLS/HR Metoprolol Succinate (Toprol Xl) 25 mg DAILY 12/09/20 09:00 12/25/20 10:43 DC 12/24/20 08:41 25 MG Midazolam HCl (Versed) 5 mg PRN 1X PRN 12/26/20 19:15 12/27/20 19:14 DC Morphine Sulfate (Morphine Sulfate) 1 mg PRN Q10MIN PRN 12/04/20 09:30 12/05/20 09:29 DC Nafcillin Sodium 2 gm/Dextrose 100 ml @ 200 mls/hr Q4HRS 12/01/20 10:00 12/21/20 08:19 DC 12/21/20 04:11 200 MLS/HR Norepinephrine Bitartrate 32 mg/ Dextrose 250 ml @ 4.603 mls/ hr CONT PRN 12/29/20 11:00 12/30/20 04:13 12.5 MLS/HR Norepinephrine Bitartrate 8 mg/ Dextrose 258 ml @ 18.286 mls/ hr CONT PRN 12/26/20 19:15 12/29/20 10:50 DC 12/29/20 05:57 49.372 MLS/HR Ondansetron HCl (Zofran) 4 mg STK-MED ONCE 12/04/20 11:26 12/04/20 11:26 DC Pantoprazole Sodium (PROTONIX VIAL for IV PUSH) 40 mg DAILYAC 12/27/20 07:30 12/30/20 07:24 40 MG Pantoprazole Sodium (Protonix) 40 mg DAILYAC 12/20/20 09:15 12/26/20 10:17 DC 12/24/20 06:15 40 MG Phenylephrine HCl (PHENYLEPHRINE in 0.9% NACL PF) 1 mg STK-MED ONCE 12/04/20 10:43 12/04/20 10:43 DC Phytonadione (Vitamin K Ampule) 10 mg 1X ONCE 12/29/20 11:00 12/29/20 11:05 DC 12/29/20 11:40 10 MG Polyethylene Glycol (miraLAX PACKET) 17 gm PRN DAILY PRN 12/03/20 19:00 12/30/20 07:24 17 GM Potassium Chloride/Water 100 ml @ 50 mls/hr 1X ONCE 11/28/20 14:45 11/28/20 16:44 DC 11/28/20 16:20 50 MLS/HR Potassium Phosphate 15 mmol/ Sodium Chloride 105 ml @ 52.5 mls/hr 1X ONCE 12/28/20 14:00 12/28/20 15:59 DC 12/28/20 13:32 52.5 MLS/HR Potassium Chloride (Klor-Con) 20 meq 1X ONCE 12/10/20 19:00 12/10/20 19:01 DC 12/10/20 18:52 20 MEQ Prochlorperazine Edisylate (Compazine) 5 mg PACU PRN PRN 12/04/20 09:30 12/05/20 09:29 DC Propofol (Diprivan) 200 mg STK-MED ONCE 12/05/20 09:29 12/05/20 09:30 DC Ringer's Solution 1,000 ml @ 100 mls/hr Q10H 12/26/20 19:30 12/29/20 10:28 DC 12/28/20 04:37 100 MLS/HR Sevoflurane (Ultane) 60 ml STK-MED ONCE 12/04/20 11:14 12/04/20 11:14 DC Sodium Chloride 1,000 ml @ 400 mls/hr Q2H30M PRN 12/30/20 07:00 12/30/20 18:59 Sodium Chloride (Normal Saline Flush) 10 ml 1X PRN PRN 12/23/20 10:15 12/24/20 10:14 DC Sodium Chloride (Saline Mist Nasal) 1 hiro PRN Q1HR PRN 12/02/20 20:45 12/20/20 23:52 1 HIRO Sodium Phosphate 40 mmol/Sodium Chloride 263.3333 ml @ 62.5 mls/hr 1X ONCE 12/29/20 10:00 12/29/20 14:12 DC 12/29/20 09:51 62.5 MLS/HR Succinylcholine Chloride (Anectine) 200 mg 1X ONCE 12/26/20 21:15 12/26/20 21:16 DC 12/26/20 19:38 200 MG Vecuronium [place] (Norcuron Bolus) 6 mg PRN 1X PRN 12/26/20 19:15 12/27/20 19:14 DC Warfarin Sodium (Coumadin) 3.75 mg DAILY 11/30/20 09:00 UNV Zolpidem Tartrate (Ambien) 5 mg PRN QHS PRN 12/05/20 20:00 12/23/20 22:11 5 MG Lab Laboratory Tests Test 12/29/20 11:32 12/29/20 17:19 12/29/20 17:34 12/29/20 17:35 Glucose (Fingerstick) 83 mg/dL (70-99) 43 mg/dL (70-99) 195 mg/dL (70-99) Hemoglobin 8.1 g/dL (13.0-17.5) Hematocrit 24.3 % (39.0-53.0) Mean Corpuscular Hemoglobin Concent 33 g/dL (31-37) Test 12/30/20 01:02 12/30/20 01:17 12/30/20 01:31 12/30/20 06:32 Glucose (Fingerstick) 44 mg/dL (70-99) 75 mg/dL (70-99) 119 mg/dL (70-99) 78 mg/dL (70-99) Test 12/30/20 06:35 12/30/20 07:55 White Blood Count 15.7 x10^3/uL (4.0-11.0) Red Blood Count 2.76 x10^6/uL (4.30-5.70) Hemoglobin 8.1 g/dL (13.0-17.5) Hematocrit 24.6 % (39.0-53.0) Mean Corpuscular Volume 89 fL (79-100) Mean Corpuscular Hemoglobin 29 pg (25-35) Mean Corpuscular Hemoglobin Concent 33 g/dL (31-37) Red Cell Distribution Width 24.5 % (11.5-14.5) Platelet Count 53 x10^3/uL (140-400) Neutrophils (%) (Auto) 79 % (31-73) Lymphocytes (%) (Auto) 11 % (24-48) Monocytes (%) (Auto) 6 % (0-9) Eosinophils (%) (Auto) 3 % (0-3) Basophils (%) (Auto) 1 % (0-3) Neutrophils # (Auto) 12.4 x10^3/uL (1.8-7.7) Lymphocytes # (Auto) 1.7 x10^3/uL (1.0-4.8) Monocytes # (Auto) 1.0 x10^3/uL (0.0-1.1) Eosinophils # (Auto) 0.5 x10^3/uL (0.0-0.7) Basophils # (Auto) 0.2 x10^3/uL (0.0-0.2) Prothrombin Time 23.1 SEC (11.7-14.0) Prothromb Time International Ratio 2.1 (0.8-1.1) Sodium Level 136 mmol/L (136-145) Potassium Level 3.8 mmol/L (3.5-5.1) Chloride Level 99 mmol/L (98-107) Carbon Dioxide Level 29 mmol/L (21-32) Anion Gap 8 (6-14) Blood Urea Nitrogen 24 mg/dL (8-26) Creatinine 3.6 mg/dL (0.7-1.3) Estimated GFR (Cockcroft-Gault) 16.3 BUN/Creatinine Ratio 7 (6-20) Glucose Level 89 mg/dL (70-99) Calcium Level 7.2 mg/dL (8.5-10.1) Phosphorus Level 3.6 mg/dL (2.6-4.7) Magnesium Level 2.1 mg/dL (1.8-2.4) Total Bilirubin 11.8 mg/dL (0.2-1.0) Aspartate Amino Transf (AST/SGOT) 376 U/L (15-37) Alanine Aminotransferase (ALT/SGPT) 44 U/L (16-63) Alkaline Phosphatase 164 U/L (46-116) Total Protein 6.2 g/dL (6.4-8.2) Albumin 2.1 g/dL (3.4-5.0) Albumin/Globulin Ratio 0.5 (1.0-1.7) Ammonia 51 mcmol/L (11-34) Results All relevant outside records, renal labs, imaging studies, telemetry/EKG's were reviewed. Justicifation of Admission Dx: Justifications for Admission: Justification of Admission Dx: N/A MERLE QUIROZ MD Dec 30, 2020 10:00
--- NOTE | 2020-12-30 10:09 | PDOC ---
Date of Service: DATE: 12/30/20 TIME: 09:57 Objective: Objective: D/w nurse - plans for hematology opinion, increased tube feed residuals so rate reduced to 15c, petechiae on toes, possible repeat liver US discussed. Haptoglobin low, ammonia elevated (51 - previous two checks were normal), bili worse, Alk Phos fluctuating, fatty liver on US earlier this week. Vital Signs: Vital Signs Date Time Temp Pulse Resp B/P (MAP) Pulse Ox O2 Delivery O2 Flow Rate FiO2 12/30/20 09:42 100 Ventilator 12/30/20 08:30 70 104/53 12/30/20 08:00 99.2 99.2 12/30/20 07:00 16 12/30/20 02:46 15.0 Labs: Laboratory Tests Test 12/29/20 11:32 12/29/20 17:19 12/29/20 17:34 12/29/20 17:35 Glucose (Fingerstick) 83 mg/dL 43 mg/dL 195 mg/dL Hemoglobin 8.1 g/dL Hematocrit 24.3 % Mean Corpuscular Hemoglobin Concent 33 g/dL Test 12/30/20 01:02 12/30/20 01:17 12/30/20 01:31 12/30/20 06:32 Glucose (Fingerstick) 44 mg/dL 75 mg/dL 119 mg/dL 78 mg/dL Test 12/30/20 06:35 12/30/20 07:55 White Blood Count 15.7 x10^3/uL Red Blood Count 2.76 x10^6/uL Hemoglobin 8.1 g/dL Hematocrit 24.6 % Mean Corpuscular Volume 89 fL Mean Corpuscular Hemoglobin 29 pg Mean Corpuscular Hemoglobin Concent 33 g/dL Red Cell Distribution Width 24.5 % Platelet Count 53 x10^3/uL Neutrophils (%) (Auto) 79 % Lymphocytes (%) (Auto) 11 % Monocytes (%) (Auto) 6 % Eosinophils (%) (Auto) 3 % Basophils (%) (Auto) 1 % Neutrophils # (Auto) 12.4 x10^3/uL Lymphocytes # (Auto) 1.7 x10^3/uL Monocytes # (Auto) 1.0 x10^3/uL Eosinophils # (Auto) 0.5 x10^3/uL Basophils # (Auto) 0.2 x10^3/uL Prothrombin Time 23.1 SEC Prothromb Time International Ratio 2.1 Sodium Level 136 mmol/L Potassium Level 3.8 mmol/L Chloride Level 99 mmol/L Carbon Dioxide Level 29 mmol/L Anion Gap 8 Blood Urea Nitrogen 24 mg/dL Creatinine 3.6 mg/dL Estimated GFR (Cockcroft-Gault) 16.3 BUN/Creatinine Ratio 7 Glucose Level 89 mg/dL Calcium Level 7.2 mg/dL Phosphorus Level 3.6 mg/dL Magnesium Level 2.1 mg/dL Total Bilirubin 11.8 mg/dL Aspartate Amino Transf (AST/SGOT) 376 U/L Alanine Aminotransferase (ALT/SGPT) 44 U/L Alkaline Phosphatase 164 U/L Total Protein 6.2 g/dL Albumin 2.1 g/dL Albumin/Globulin Ratio 0.5 Ammonia 51 mcmol/L PE: GEN: intubated LUNGS: clear HEART: RRR ABD: occasional gurgle, soft SKIN: +jaundice +petechiae bilateral toes NEURO/PSYCH: sedated A/P: MOSF MSSA bacteremia/right knee septic arthritis s/p I&D Anemia, coagulopathy, thrombocytopenia, hyperbilirubinemia, mildly elevated ammonia -- Plans as above - will review any additional GI recs w/ Dr. Arndt (covering for Dr. Peters). Justicifation of Admission Dx: Justifications for Admission: Justification of Admission Dx: N/A PAMELA TREVIÑO Dec 30, 2020 10:09
[2020-12-30] MEDS: MEROPENEM 500 MG in IV NORMAL SALINE 50ML 50 ML IV SCH (13:23)
--- NOTE | 2020-12-30 14:18 | PDOC ---
PROGRESS NOTES Date of Service DATE: 12/30/20 TIME: 14:05 Subjective Subjective Called back to see patient today due to new onset thrombocytopenia. He is known to me from earlier in this hospitalization. 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 This has since been removed. Cu ltures had cleared. Hospital discharge was planned. He developed sudden clinical deterioration with mental status changes, worsening shortness of breath and new onset hypoxia 3 days ago. He was transferred to the intensive care unit and received intubation. He continues to be ventilator dependent. He is also required pressor support suppressant. Platelet count was normal on 12/24/2020. Repeat check on 12/27/2020 showed new onset thrombocytopenia and platelets have continued to decline since then with r epeat CBC today showing platelet count of 53. Labs also show an associated worsening of normocytic anemia. New onset hyperbilirubinemia with bilirubin of 11.8 on today's labs were also noted. He continues to have GUERO requiring hemodialysis. Last known dialysis was yesterday today. Confirmed the diazo technician that heparin has not been used for dialysis. Objective Objective Vital Signs Date Time Temp Pulse Resp B/P (MAP) Pulse Ox O2 Delivery O2 Flow Rate FiO2 12/30/20 13:15 74 122/53 12/30/20 13:00 16 99 Ventilator 12/30/20 12:00 98.2 98.2 12/30/20 02:46 15.0 Intake and Output 12/30/20 07:00 Intake Total 1535.86 ml Output Total 0 ml Balance 1535.86 ml IV Total 721.86 ml Tube Feeding 288 ml Blood Product IV Normal Saline Flush 526 ml Output Urine Total 0 ml Physical Exam Abdomen: Normal bowel sounds, Soft Heart: Regular rate General: Other (Intubated and sedated) MUSCULOSKELETAL: No swelling Neuro: Other (Unable to assess) Skin: No rashes Assessment Assessment Normocytic anemia Thrombocytopenia, worsening Hyperbilirubinemia Acute respiratory failure requiring intubation mechanical ventilation MSSA bacteremia ARDS Septic arthritis Atrial fibrillation Plan Plan of Care * Check peripheral smear, HIT antibody, LDH, haptoglobin * Low suspicion for TTP/hemolytic anemia given stable hemoglobin but will check ADAMTS 13 activity * Check CBC daily * Check direct bilirubin. Consider repeating ultrasound of the abdomen given worsening bilirubin. Defer to GI * Continue supportive care for septic shock * Management antibiotics per ID * Dialysis per nephrology service Comment Review of Relevant I have reviewed the following items mel (where applicable) has been applied. Labs Laboratory Tests Test 12/28/20 15:22 12/28/20 23:59 12/29/20 04:55 12/29/20 07:15 Glucose (Fingerstick) 75 mg/dL (70-99) 77 mg/dL (70-99) White Blood Count 14.7 x10^3/uL (4.0-11.0) Red Blood Count 2.33 x10^6/uL (4.30-5.70) Hemoglobin 6.8 g/dL (13.0-17.5) Hematocrit 21.1 % (39.0-53.0) Mean Corpuscular Volume 90 fL (79-100) Mean Corpuscular Hemoglobin 29 pg (25-35) Mean Corpuscular Hemoglobin Concent 32 g/dL (31-37) Red Cell Distribution Width 28.7 % (11.5-14.5) Platelet Count 65 x10^3/uL (140-400) Neutrophils (%) (Auto) 86 % (31-73) Lymphocytes (%) (Auto) 8 % (24-48) Monocytes (%) (Auto) 5 % (0-9) Eosinophils (%) (Auto) 1 % (0-3) Basophils (%) (Auto) 1 % (0-3) Neutrophils # (Auto) 12.7 x10^3/uL (1.8-7.7) Lymphocytes # (Auto) 1.1 x10^3/uL (1.0-4.8) Monocytes # (Auto) 0.7 x10^3/uL (0.0-1.1) Eosinophils # (Auto) 0.2 x10^3/uL (0.0-0.7) Basophils # (Auto) 0.1 x10^3/uL (0.0-0.2) Haptoglobin 12 mg/dL (38-329) Prothrombin Time 26.9 SEC (11.7-14.0) Prothromb Time International Ratio 2.5 (0.8-1.1) Sodium Level 136 mmol/L (136-145) Potassium Level 4.1 mmol/L (3.5-5.1) Chloride Level 99 mmol/L (98-107) Carbon Dioxide Level 29 mmol/L (21-32) Anion Gap 8 (6-14) Blood Urea Nitrogen 13 mg/dL (8-26) Creatinine 2.5 mg/dL (0.7-1.3) Estimated GFR (Cockcroft-Gault) 24.8 BUN/Creatinine Ratio 5 (6-20) Glucose Level 90 mg/dL (70-99) Calcium Level 7.4 mg/dL (8.5-10.1) Phosphorus Level 1.5 mg/dL (2.6-4.7) Magnesium Level 2.2 mg/dL (1.8-2.4) Total Bilirubin 7.9 mg/dL (0.2-1.0) Aspartate Amino Transf (AST/SGOT) 579 U/L (15-37) Alanine Aminotransferase (ALT/SGPT) 71 U/L (16-63) Alkaline Phosphatase 156 U/L (46-116) Total Protein 6.2 g/dL (6.4-8.2) Albumin 2.2 g/dL (3.4-5.0) Albumin/Globulin Ratio 0.6 (1.0-1.7) O2 Saturation 89 % (92-99) Arterial Blood pH 7.36 (7.35-7.45) Arterial Blood pCO2 at Patient Temp 49 mmHg (35-46) Arterial Blood pO2 at Patient Temp 56 mmHg (65-108) Arterial Blood HCO3 28 mmol/L (21-28) Arterial Blood Base Excess 2 mmol/L (-3-3) FiO2 50/vent Test 12/29/20 11:32 12/29/20 17:19 12/29/20 17:34 12/29/20 17:35 Glucose (Fingerstick) 83 mg/dL (70-99) 43 mg/dL (70-99) 195 mg/dL (70-99) Hemoglobin 8.1 g/dL (13.0-17.5) Hematocrit 24.3 % (39.0-53.0) Mean Corpuscular Hemoglobin Concent 33 g/dL (31-37) Test 12/30/20 01:02 12/30/20 01:17 12/30/20 01:31 12/30/20 06:32 Glucose (Fingerstick) 44 mg/dL (70-99) 75 mg/dL (70-99) 119 mg/dL (70-99) 78 mg/dL (70-99) Test 12/30/20 06:35 12/30/20 07:55 12/30/20 11:27 White Blood Count 15.7 x10^3/uL (4.0-11.0) Red Blood Count 2.76 x10^6/uL (4.30-5.70) Hemoglobin 8.1 g/dL (13.0-17.5) Hematocrit 24.6 % (39.0-53.0) Mean Corpuscular Volume 89 fL (79-100) Mean Corpuscular Hemoglobin 29 pg (25-35) Mean Corpuscular Hemoglobin Concent 33 g/dL (31-37) Red Cell Distribution Width 24.5 % (11.5-14.5) Platelet Count 53 x10^3/uL (140-400) Neutrophils (%) (Auto) 79 % (31-73) Lymphocytes (%) (Auto) 11 % (24-48) Monocytes (%) (Auto) 6 % (0-9) Eosinophils (%) (Auto) 3 % (0-3) Basophils (%) (Auto) 1 % (0-3) Neutrophils # (Auto) 12.4 x10^3/uL (1.8-7.7) Lymphocytes # (Auto) 1.7 x10^3/uL (1.0-4.8) Monocytes # (Auto) 1.0 x10^3/uL (0.0-1.1) Eosinophils # (Auto) 0.5 x10^3/uL (0.0-0.7) Basophils # (Auto) 0.2 x10^3/uL (0.0-0.2) Prothrombin Time 23.1 SEC (11.7-14.0) Prothromb Time International Ratio 2.1 (0.8-1.1) Sodium Level 136 mmol/L (136-145) Potassium Level 3.8 mmol/L (3.5-5.1) Chloride Level 99 mmol/L (98-107) Carbon Dioxide Level 29 mmol/L (21-32) Anion Gap 8 (6-14) Blood Urea Nitrogen 24 mg/dL (8-26) Creatinine 3.6 mg/dL (0.7-1.3) Estimated GFR (Cockcroft-Gault) 16.3 BUN/Creatinine Ratio 7 (6-20) Glucose Level 89 mg/dL (70-99) Calcium Level 7.2 mg/dL (8.5-10.1) Phosphorus Level 3.6 mg/dL (2.6-4.7) Magnesium Level 2.1 mg/dL (1.8-2.4) Total Bilirubin 11.8 mg/dL (0.2-1.0) Aspartate Amino Transf (AST/SGOT) 376 U/L (15-37) Alanine Aminotransferase (ALT/SGPT) 44 U/L (16-63) Alkaline Phosphatase 164 U/L (46-116) Total Protein 6.2 g/dL (6.4-8.2) Albumin 2.1 g/dL (3.4-5.0) Albumin/Globulin Ratio 0.5 (1.0-1.7) Ammonia 51 mcmol/L (11-34) Glucose (Fingerstick) 77 mg/dL (70-99) Laboratory Tests Test 12/29/20 17:19 12/29/20 17:34 12/29/20 17:35 12/30/20 01:02 Glucose (Fingerstick) 43 mg/dL (70-99) 195 mg/dL (70-99) 44 mg/dL (70-99) Hemoglobin 8.1 g/dL (13.0-17.5) Hematocrit 24.3 % (39.0-53.0) Mean Corpuscular Hemoglobin Concent 33 g/dL (31-37) Test 12/30/20 01:17 12/30/20 01:31 12/30/20 06:32 12/30/20 06:35 Glucose (Fingerstick) 75 mg/dL (70-99) 119 mg/dL (70-99) 78 mg/dL (70-99) White Blood Count 15.7 x10^3/uL (4.0-11.0) Red Blood Count 2.76 x10^6/uL (4.30-5.70) Hemoglobin 8.1 g/dL (13.0-17.5) Hematocrit 24.6 % (39.0-53.0) Mean Corpuscular Volume 89 fL (79-100) Mean Corpuscular Hemoglobin 29 pg (25-35) Mean Corpuscular Hemoglobin Concent 33 g/dL (31-37) Red Cell Distribution Width 24.5 % (11.5-14.5) Platelet Count 53 x10^3/uL (140-400) Neutrophils (%) (Auto) 79 % (31-73) Lymphocytes (%) (Auto) 11 % (24-48) Monocytes (%) (Auto) 6 % (0-9) Eosinophils (%) (Auto) 3 % (0-3) Basophils (%) (Auto) 1 % (0-3) Neutrophils # (Auto) 12.4 x10^3/uL (1.8-7.7) Lymphocytes # (Auto) 1.7 x10^3/uL (1.0-4.8) Monocytes # (Auto) 1.0 x10^3/uL (0.0-1.1) Eosinophils # (Auto) 0.5 x10^3/uL (0.0-0.7) Basophils # (Auto) 0.2 x10^3/uL (0.0-0.2) Prothrombin Time 23.1 SEC (11.7-14.0) Prothromb Time International Ratio 2.1 (0.8-1.1) Sodium Level 136 mmol/L (136-145) Potassium Level 3.8 mmol/L (3.5-5.1) Chloride Level 99 mmol/L (98-107) Carbon Dioxide Level 29 mmol/L (21-32) Anion Gap 8 (6-14) Blood Urea Nitrogen 24 mg/dL (8-26) Creatinine 3.6 mg/dL (0.7-1.3) Estimated GFR (Cockcroft-Gault) 16.3 BUN/Creatinine Ratio 7 (6-20) Glucose Level 89 mg/dL (70-99) Calcium Level 7.2 mg/dL (8.5-10.1) Phosphorus Level 3.6 mg/dL (2.6-4.7) Magnesium Level 2.1 mg/dL (1.8-2.4) Total Bilirubin 11.8 mg/dL (0.2-1.0) Aspartate Amino Transf (AST/SGOT) 376 U/L (15-37) Alanine Aminotransferase (ALT/SGPT) 44 U/L (16-63) Alkaline Phosphatase 164 U/L (46-116) Total Protein 6.2 g/dL (6.4-8.2) Albumin 2.1 g/dL (3.4-5.0) Albumin/Globulin Ratio 0.5 (1.0-1.7) Test 12/30/20 07:55 12/30/20 11:27 Ammonia 51 mcmol/L (11-34) Glucose (Fingerstick) 77 mg/dL (70-99) Microbiology 12/27/20 Blood Culture - Preliminary, Resulted NO GROWTH AFTER 3 DAYS 12/22/20 Gram Stain Evaluation - Final, Complete 12/22/20 Respiratory Culture - Final, Complete 12/07/20 Urine Culture - Final, Complete 12/04/20 Gram Stain - Final, Complete 12/04/20 Aerobic and Anaerobic Culture - Final, Complete Medications Current Medications Ceftriaxone Sodium (Rocephin) 1 gm 1X ONCE IVP Last administered on 11/28/20at 13:30; Start 11/28/20 at 13:30; Stop 11/28/20 at 13:31; Status DC Azithromycin 500 mg/Sodium Chloride 250 ml @ 250 mls/hr 1X ONCE IV ; Start 11/28/20 at 13:30; Stop 11/28/20 at 14:29; Status UNV Azithromycin 250 ml @ 250 mls/hr 1X ONCE IV Last administered on 11/28/20at 15:11; Start 11/28/20 at 13:30; Stop 11/28/20 at 14:29; Status DC Acetaminophen (Tylenol) 1,000 mg 1X ONCE PO Last administered on 11/28/20at 15:10; Start 11/28/20 at 14:45; Stop 11/28/20 at 14:46; Status DC Potassium Chloride/Water 100 ml @ 50 mls/hr 1X ONCE IV Last administered on 11/28/20at 16:20; Start 11/28/20 at 14:45; Stop 11/28/20 at 16:44; Status DC Potassium Chloride (Klor-Con) 40 meq 1X ONCE PO Last administered on 11/28/20at 16:21; Start 11/28/20 at 14:45; Stop 11/28/20 at 14:46; Status DC Sodium Chloride 1,000 ml @ 1,000 mls/hr 1X ONCE IV Last administered on 11/28/20at 17:41; Start 11/28/20 at 17:45; Stop 11/28/20 at 18:44; Status DC Acetaminophen (Tylenol) 650 mg PRN Q6HRS PRN PO MILD PAIN / TEMP > 100.3'F Last administered on 11/28/20at 20:36; Start 11/28/20 at 20:30 Influenza Virus Vaccine Quadrival (Flulaval Quad Syringe) 0.5 ml ONCE ONCE VAX IM Last administered on 11/29/20at 10:06; Start 11/29/20 at 09:00; Stop 11/29/20 at 09:01; Status DC Acetaminophen/ Hydrocodone Bitart (Lortab 5/325) 1 tab PRN Q4HRS PRN PO PAIN mod/severe Last administered on 12/05/20at 17:38; Start 11/28/20 at 22:45; Stop 12/05/20 at 19:50; Status DC Ceftriaxone Sodium (Rocephin) 1 gm Q24H IVP ; Start 11/29/20 at 13:00; Stop 11/29/20 at 13:11; Status DC Azithromycin 250 ml @ 250 mls/hr DAILY ONCE IV ; Start 11/30/20 at 09:00; Stop 11/30/20 at 09:59; Status UNV Azithromycin 500 mg/Sodium Chloride 250 ml @ 250 mls/hr Q24H IV ; Start 11/29/20 at 15:00; Stop 11/29/20 at 13:50; Status DC Acetaminophen (Tylenol) 650 mg QHS PO Last administered on 12/29/20at 20:45; Start 11/29/20 at 21:00 Aspirin (Aspirin Chewable) 81 mg DAILY PO Last administered on 12/19/20at 12:40; Start 11/30/20 at 09:00; Stop 12/19/20 at 14:26; Status DC Docusate Sodium (Colace) 100 mg PRN BID PRN PO HARD STOOLS Last administered on 12/01/20at 12:10; Start 11/29/20 at 09:45; Stop 12/17/20 at 17:41; Status DC Warfarin Sodium (Coumadin) 3.75 mg DAILY PO ; Start 11/30/20 at 09:00; Status UNV Atorvastatin Calcium (Lipitor) 20 mg QHS PO Last administered on 12/18/20at 20:29; Start 11/29/20 at 21:00; Stop 12/19/20 at 14:26; Status DC Daptomycin 500 mg/ Sodium Chloride 50 ml @ 100 mls/hr Q24H IV Last administered on 11/30/20at 13:19; Start 11/29/20 at 13:00; Stop 12/01/20 at 07:32; Status DC Ceftriaxone Sodium (Rocephin) 2 gm Q24H IVP Last administered on 11/30/20at 13:21; Start 11/29/20 at 14:00; Stop 12/01/20 at 09:19; Status DC Lactobacillus Rhamnosus (Culturelle) 1 cap BID PO Last administered on 12/24/20at 22:38; Start 11/29/20 at 21:00; Stop 12/27/20 at 21:38; Status DC Daptomycin 580 mg/ Sodium Chloride 50 ml @ 100 mls/hr Q24H IV Last administered on 12/01/20at 08:52; Start 12/01/20 at 07:30; Stop 12/01/20 at 09:19; Status DC Nafcillin Sodium 2 gm/Dextrose 100 ml @ 200 mls/hr Q4HRS IV Last administered on 12/21/20at 04:11; Start 12/01/20 at 10:00; Stop 12/21/20 at 08:19; Status DC Carvedilol (Coreg) 6.25 mg DAILY PO ; Start 12/01/20 at 12:00; Stop 12/01/20 at 12:00; Status DC Furosemide (Lasix) 40 mg DAILY PO Last administered on 12/07/20at 08:28; Start 12/01/20 at 12:00; Stop 12/07/20 at 14:46; Status DC Potassium Chloride (Klor-Con) 20 meq [id number] PO Last administered on 12/07/20at 08:28; Start 12/02/20 at 08:00; Stop 12/07/20 at 14:46; Status DC Potassium Chloride (Klor-Con) 20 meq 1X ONCE PO Last administered on 12/01/20at 12:12; Start 12/01/20 at 11:15; Stop 12/01/20 at 11:27; Status DC Carvedilol (Coreg) 3.125 mg BIDWMEALS PO Last administered on 12/03/20at 16:39; Start 12/01/20 at 12:00; Stop 12/05/20 at 20:11; Status DC Lidocaine HCl (Lidocaine 1% 20ml Vial) 10 ml 1X ONCE INJ ; Start 12/01/20 at 16:00; Stop 12/01/20 at 16:01; Status DC Ringer's Solution 1,000 ml @ 50 mls/hr Q20H IV Last administered on 12/05/20at 12:10; Start 12/05/20 at 07:00; Stop 12/05/20 at 18:59; Status DC Phytonadione (Vitamin K Ampule) 10 mg 1X ONCE SQ Last administered on 12/02/20at 11:09; Start 12/02/20 at 10:45; Stop 12/02/20 at 10:46; Status DC Sodium Chloride (Saline Mist Nasal) 1 hiro PRN Q1HR PRN NS NASAL CONGESTION Last administered on 12/20/20at 23:52; Start 12/02/20 at 20:45 Phytonadione (Vitamin K Ampule) 10 mg 1X ONCE SQ Last administered on 12/03/20at 11:17; Start 12/03/20 at 11:00; Stop 12/03/20 at 11:01; Status DC Docusate Sodium (Colace) 100 mg BID PO Last administered on 12/20/20at 08:52; Start 12/03/20 at 21:00; Stop 12/21/20 at 11:19; Status DC Polyethylene Glycol (miraLAX PACKET) 17 gm PRN DAILY PRN PO CONSTIPATION Last administered on 12/30/20at 07:24; Start 12/03/20 at 19:00 Fentanyl Citrate (Fentanyl 2ml Vial) 25 mcg PRN Q5MIN PRN IVP MILD PAIN 1-3; Start 12/04/20 at 09:30; Stop 12/05/20 at 09:29; Status DC Fentanyl Citrate (Fentanyl 2ml Vial) 50 mcg PRN Q5MIN PRN IVP MODERATE PAIN 4- 6; Start 12/04/20 at 09:30; Stop 12/05/20 at 09:29; Status DC Morphine Sulfate (Morphine Sulfate) 1 mg PRN Q10MIN PRN IVP SEVERE PAIN 7-10; Start 12/04/20 at 09:30; Stop 12/05/20 at 09:29; Status DC Ringer's Solution 1,000 ml @ 30 mls/hr Q24H IV ; Start 12/04/20 at 09:30; Stop 12/04/20 at 21:29; Status DC Hydromorphone HCl (Dilaudid) 0.5 mg PRN Q10MIN PRN IVP SEVERE PAIN 7-10, 2nd CHOICE; Start 12/04/20 at 09:30; Stop 12/05/20 at 09:29; Status DC Prochlorperazine Edisylate (Compazine) 5 mg PACU PRN PRN IVP NAUSEA, MRX1; Start 12/04/20 at 09:30; Stop 12/05/20 at 09:29; Status DC Propofol (Diprivan) 200 mg STK-MED ONCE IV ; Start 12/04/20 at 10:43; Stop 12/04/20 at 10:43; Status DC Lidocaine HCl (Lidocaine Pf 2% Vial) 5 ml STK-MED ONCE .ROUTE ; Start 12/04/20 at 10:43; Stop 12/04/20 at 10:43; Status DC Phenylephrine HCl (PHENYLEPHRINE in 0.9% NACL PF) 1 mg STK-MED ONCE IV ; Start 12/04/20 at 10:43; Stop 12/04/20 at 10:43; Status DC Sevoflurane (Ultane) 60 ml STK-MED ONCE IH ; Start 12/04/20 at 11:14; Stop 12/04/20 at 11:14; Status DC Dexamethasone Sodium Phosphate (Decadron) 4 mg STK-MED ONCE .ROUTE ; Start 12/04/20 at 11:26; Stop 12/04/20 at 11:26; Status DC Ondansetron HCl (Zofran) 4 mg STK-MED ONCE .ROUTE ; Start 12/04/20 at 11:26; Stop 12/04/20 at 11:26; Status DC Fentanyl Citrate (Fentanyl 2ml Vial) 100 mcg STK-MED ONCE .ROUTE ; Start 12/04/20 at 11:26; Stop 12/04/20 at 11:26; Status DC Daptomycin 500 mg/ Sodium Chloride 50 ml @ 100 mls/hr Q24H IV Last administered on 12/11/20at 10:46; Start 12/05/20 at 10:00; Stop 12/11/20 at 17:00; Status DC Propofol (Diprivan) 200 mg STK-MED ONCE IV ; Start 12/05/20 at 09:29; Stop 12/05/20 at 09:30; Status DC Lidocaine HCl (Viscous Lidocaine) 15 ml STK-MED ONCE .ROUTE ; Start 12/05/20 at 10:06; Stop 12/05/20 at 10:06; Status DC Lidocaine HCl (Xylocaine 2% Topical 30gm Tube) 30 hiro STK-MED ONCE TP ; Start 12/05/20 at 10:06; Stop 12/05/20 at 10:06; Status DC Benzocaine (Hurricaine One) 1 spray STK-MED ONCE .ROUTE ; Start 12/05/20 at 10:06; Stop 12/05/20 at 10:07; Status DC Acetaminophen/ Hydrocodone Bitart (Lortab 10/325) 1 tab PRN Q4HRS PRN PO MODERATE TO SEVERE PAIN Last administered on 12/24/20at 14:02; Start 12/05/20 at 20:00 Zolpidem Tartrate (Ambien) 5 mg PRN QHS PRN PO INSOMNIA Last administered on 12/23/20at 22:11; Start 12/05/20 at 20:00 Sodium Chloride 1,000 ml @ 1,000 mls/hr 1X ONCE IV Last administered on 12/06/20at 09:32; Start 12/06/20 at 09:15; Stop 12/06/20 at 10:14; Status DC Sodium Chloride 1,000 ml @ 100 mls/hr 1X ONCE IV Last administered on 12/06/20at 15:30; Start 12/06/20 at 13:15; Stop 12/06/20 at 23:14; Status DC Sodium Chloride 1,000 ml @ 100 mls/hr 1X ONCE IV Last administered on 12/07/20at 13:24; Start 12/07/20 at 11:45; Stop 12/08/20 at 10:55; Status DC Metoprolol Succinate (Toprol Xl) 25 mg DAILY PO Last administered on 12/24/20at 08:41; Start 12/09/20 at 09:00; Stop 12/25/20 at 10:43; Status DC Potassium Chloride (Klor-Con) 20 meq 1X ONCE PO Last administered on 12/10/20at 18:52; Start 12/10/20 at 19:00; Stop 12/10/20 at 19:01; Status DC Daptomycin 500 mg/ Sodium Chloride 50 ml @ 100 mls/hr Q48H IV Last administered on 12/25/20at 17:33; Start 12/13/20 at 10:00; Stop 12/26/20 at 11:55; Status DC Lidocaine HCl (Buffered Lidocaine 1%) 3 ml STK-MED ONCE .ROUTE ; Start 12/12/20 at 10:27; Stop 12/12/20 at 10:27; Status DC Sodium Chloride 1,000 ml @ 1,000 mls/hr Q1H PRN IV hypotension; Start 12/12/20 at 12:00; Stop 12/12/20 at 17:59; Status DC Albumin Human 200 ml @ 200 mls/hr 1X PRN PRN IV Hypotension; Start 12/12/20 at 12:00; Stop 12/12/20 at 17:59; Status DC Sodium Chloride (Normal Saline Flush) 10 ml 1X PRN PRN IV AP catheter pack; Start 12/12/20 at 12:00; Stop 12/13/20 at 11:59; Status DC Sodium Chloride (Normal Saline Flush) 10 ml 1X PRN PRN IV SOILED [employer] catheter pack; Start 12/12/20 at 12:00; Stop 12/13/20 at 11:59; Status DC Info (PHARMACY MONITORING -- do not chart) 1 each PRN DAILY PRN MC SEE COMM ENTS; Start 12/12/20 at 12:00; Status UNV Info (PHARMACY MONITORING -- do not chart) 1 each PRN DAILY PRN MC SEE COMMENTS; Start 12/12/20 at 12:00; Status Cancel Lidocaine HCl (Buffered Lidocaine 1%) 4 ml 1X ONCE INJ Last administered on 12/12/20at 13:11; Start 12/12/20 at 13:15; Stop 12/12/20 at 13:18; Status DC Sodium Chloride 1,000 ml @ 1,000 mls/hr Q1H PRN IV hypotension; Start 12/13/20 at 09:30; Stop 12/13/20 at 15:29; Status DC Sodium Chloride 1,000 ml @ 400 mls/hr Q2H30M PRN IV PATENCY; Start 12/13/20 at 09:30; Stop 12/13/20 at 21:29; Status DC Info (PHARMACY MONITORING -- do not chart) 1 each PRN DAILY PRN MC SEE COMMENTS; Start 12/13/20 at 09:30; Status UNV Info (PHARMACY MONITORING -- do not chart) 1 each PRN DAILY PRN MC SEE COMMENTS; Start 12/13/20 at 09:30; Status UNV Epoetin Krishna-epbx (RETACRIT for ESRD PTS) 10,000 unit [id number] SQ Last admin istered on 12/28/20at 22:16; Start 12/14/20 at 21:00 Sodium Chloride 1,000 ml @ 1,000 mls/hr Q1H PRN IV hypotension; Start 12/15/20 at 07:00; Stop 12/15/20 at 12:59; Status DC Sodium Chloride 1,000 ml @ 400 mls/hr Q2H30M PRN IV PATENCY; Start 12/15/20 at 07:00; Stop 12/15/20 at 18:59; Status DC Info (PHARMACY MONITORING -- do not chart) 1 each PRN DAILY PRN MC SEE COMMENTS ; Start 12/15/20 at 07:00; Stop 12/15/20 at 07:00; Status DC Info (PHARMACY MONITORING -- do not chart) 1 each PRN DAILY PRN MC SEE COMMENTS; Start 12/15/20 at 07:00; Stop 12/15/20 at 07:00; Status DC Sodium Chloride 1,000 ml @ 1,000 mls/hr Q1H PRN IV hypotension; Start 12/17/20 at 10:30; Stop 12/17/20 at 16:29; Status DC Albumin Human 200 ml @ 200 mls/hr 1X PRN PRN IV Hypotension Last administered on 12/17/20at 11:15; Start 12/17/20 at 10:30; Stop 12/17/20 at 16:29; Status DC Sodium Chloride 1,000 ml @ 400 mls/hr Q2H30M PRN IV PATENCY; Start 12/17/20 at 10:30; Stop 12/17/20 at 22:29; Status DC Info (PHARMACY MONITORING -- do not chart) 1 each PRN DAILY PRN MC SEE COMMENTS; Start 12/17/20 at 11:15; Stop 12/19/20 at 13:24; Status DC Info (PHARMACY MONITORING -- do not chart) 1 each PRN DAILY PRN MC SEE COMMENTS; Start 12/17/20 at 11:15; Status UNV Docusate Sodium (Colace) 100 mg PRN BID PRN PO HARD STOOLS Last administered on 12/30/20at 07:24; Start 12/17/20 at 17:45 Sodium Chloride 1,000 ml @ 30 mls/hr Q24H IV Last administered on 12/21/20at 20:34; Start 12/18/20 at 18:45; Stop 12/27/20 at 13:08; Status DC Sodium Chloride 1,000 ml @ 1,000 mls/hr Q1H PRN IV hypotension; Start 12/19/20 at 08:30; Stop 12/19/20 at 14:29; Status DC Albumin Human 100 ml @ 100 mls/hr 1X PRN PRN IV Hypotension; Start 12/19/20 at 08:30; Stop 12/19/20 at 14:29; Status DC Sodium Chloride 1,000 ml @ 400 mls/hr Q2H30M PRN IV PATENCY; Start 12/19/20 at 08:30; Stop 12/19/20 at 20:29; Status DC Info (PHARMACY MONITORING -- do not chart) 1 each PRN DAILY PRN MC SEE COMMENTS; Start 12/19/20 at 08:30; Stop 12/19/20 at 13:24; Status DC Info (PHARMACY MONITORING -- do not chart) 1 each PRN DAILY PRN MC SEE COMMENTS; Start 12/19/20 at 08:30; Stop 12/21/20 at 07:55; Status DC Atorvastatin Calcium (Lipitor) 40 mg QHS PO Last administered on 12/29/20at 20:45; Start 12/19/20 at 21:00 Pantoprazole Sodium (Protonix) 40 mg DAILYAC PO Last administered on 12/24/20at 06:15; Start 12/20/20 at 09:15; Stop 12/26/20 at 10:17; Status DC Sodium Chloride 1,000 ml @ 1,000 mls/hr Q1H PRN IV hypotension; Start 12/21/20 at 08:00; Stop 12/21/20 at 13:59; Status DC Sodium Chloride 1,000 ml @ 400 mls/hr Q2H30M PRN IV PATENCY; Start 12/21/20 at 08:00; Stop 12/21/20 at 19:59; Status DC Info (PHARMACY MONITORING -- do not chart) 1 each PRN DAILY PRN MC SEE COMMENTS; Start 12/21/20 at 08:00; Stop 12/21/20 at 07:54; Status DC Info (PHARMACY MONITORING -- do not chart) 1 each PRN DAILY PRN MC SEE COMMENTS; Start 12/21/20 at 08:00; Status Cancel Cefepime HCl (Maxipime) 1 gm Q24H IVP Last administered on 12/25/20at 12:32; Start 12/22/20 at 11:00; Stop 12/26/20 at 11:56; Status DC Furosemide (Lasix) 40 mg 1X ONCE IVP Last administered on 12/22/20at 11:17; Start 12/22/20 at 11:15; Stop 12/22/20 at 11:16; Status DC Sodium Chloride 1,000 ml @ 1,000 mls/hr Q1H PRN IV hypotension; Start 12/23/20 at 10:15; Stop 12/23/20 at 16:14; Status DC Albumin Human 200 ml @ 200 mls/hr 1X PRN PRN IV Hypotension; Start 12/23/20 at 10:15; Stop 12/23/20 at 16:14; Status DC Sodium Chloride (Normal Saline Flush) 10 ml 1X PRN PRN IV AP catheter pack; Start 12/23/20 at 10:15; Stop 12/24/20 at 10:14; Status DC Sodium Chloride (Normal Saline Flush) 10 ml 1X PRN PRN IV SO[employer] catheter pack; Start 12/23/20 at 10:15; Stop 12/24/20 at 10:14; Status DC Sodium Chloride 1,000 ml @ 400 mls/hr Q2H30M PRN IV PATENCY; Start 12/23/20 at 10:15; Stop 12/23/20 at 22:14; Status DC Info (PHARMACY MONITORING -- do not chart) 1 each PRN DAILY PRN MC SEE COMMENTS; Start 12/23/20 at 10:15; Status UNV Info (PHARMACY MONITORING -- do not chart) 1 each PRN DAILY PRN MC SEE COMMENTS; Start 12/23/20 at 10:15; Status Cancel Aspirin (Ecotrin) 81 mg [id number] PO Last administered on 12/24/20at 08:40; Start 12/23/20 at 13:00; Stop 12/27/20 at 10:33; Status DC Cefazolin Sodium/ Dextrose 50 ml @ 100 mls/hr 1X PREOP PRN IV PRIOR TO PROCEDURE Last administered on 12/23/20at 14:46; Start 12/23/20 at 14:00; Stop 12/24/20 at 13:59; Status DC Midazolam HCl (Versed) 2 mg 1X ONCE IV Last administered on 12/23/20at 14:00; Start 12/23/20 at 14:00; Stop 12/23/20 at 14:06; Status DC Fentanyl Citrate (Fentanyl 2ml Vial) 100 mcg 1X ONCE IV Last administered on 12/23/20at 14:00; Start 12/23/20 at 14:00; Stop 12/23/20 at 14:06; Status DC Cefazolin Sodium/ Dextrose 50 ml @ As Directed STK-MED ONCE IV ; Start 12/23/20 at 13:57; Stop 12/23/20 at 13:58; Status DC Lidocaine/ Epinephrine (LIDOCAINE 1%-EPI 1:100,000 Multi-Dose) 20 ml STK-MED ONCE .ROUTE ; Start 12/23/20 at 13:58; Stop 12/23/20 at 13:58; Status DC Lidocaine/ Epinephrine (LIDOCAINE 1%-EPI 1:100,000 Multi-Dose) 20 ml 1X ONCE INJ Last administered on 12/23/20at 14:15; Start 12/23/20 at 14:15; Stop 12/23/20 at 14:16; Status DC Linezolid (Zyvox) 600 mg BID PO Last administered on 12/24/20at 22:38; Start 12/24/20 at 11:00; Stop 12/25/20 at 10:48; Status DC Magnesium Sulfate 50 ml @ 25 mls/hr PRN DAILY PRN IV for Mag < 1.7 on am labs; Start 12/25/20 at 09:15 Dextrose (Dextrose 50%-Water Syringe) 25 gm STK-MED ONCE IV ; Start 12/25/20 at 22:23; Stop 12/25/20 at 22:23; Status DC Furosemide (Lasix) 40 mg 1X ONCE IVP Last administered on 12/25/20at 23:16; Start 12/25/20 at 23:00; Stop 12/25/20 at 23:05; Status DC Sodium Chloride 1,000 ml @ 1,000 mls/hr Q1H PRN IV hypotension; Start 12/26/20 at 08:45; Stop 12/26/20 at 14:44; Status DC Albumin Human 200 ml @ 200 mls/hr 1X ONCE IV Last administered on 12/27/20at 08:58; Start 12/26/20 at 08:45; Stop 12/26/20 at 09:44; Status DC Sodium Chloride 1,000 ml @ 400 mls/hr Q2H30M PRN IV PATENCY; Start 12/26/20 at 08:45; Stop 12/26/20 at 20:44; Status DC Info (PHARMACY MONITORING -- do not chart) 1 each PRN DAILY PRN MC SEE COMMENTS; Start 12/26/20 at 08:45; Status Cancel Pantoprazole Sodium (PROTONIX VIAL for IV PUSH) 40 mg DAILYAC IVP Last administered on 12/30/20at 07:24; Start 12/27/20 at 07:30 Dextrose (Dextrose 50%-Water Syringe) 25 gm STK-MED ONCE IV ; Start 12/26/20 at 10:54; Stop 12/26/20 at 10:55; Status DC Cefazolin Sodium (Ancef) 1 gm Q24H IVP Last administered on 12/26/20at 15:29; Start 12/26/20 at 16:00; Stop 12/27/20 at 10:37; Status DC Dextrose (Dextrose 50%-Water Syringe) 25 gm STK-MED ONCE IV ; Start 12/25/20 at 22:30; Stop 12/26/20 at 14:10; Status DC Norepinephrine Bitartrate 8 mg/ Dextrose 258 ml @ 18.286 mls/ hr CONT PRN IV PER PROTOCOL Last administered on 12/29/20at 05:57; Start 12/26/20 at 19:15; Stop 12/29/20 at 10:50; Status DC Fentanyl Citrate 30 ml @ 0 mls/hr CONT PRN IV SEE PROTOCOL Last administered on 12/30/20at 02:16; Start 12/26/20 at 19:15 Midazolam HCl 100 ml @ 0 mls/hr CONT PRN IV SEE PROTOCOL Last administered on 12/28/20at 22:31; Start 12/26/20 at 19:15 Vecuronium Spencer (Norcuron Bolus) 6 mg PRN 1X PRN IV VENT INDUCTION; Start 12/26/20 at 19:15; Stop 12/27/20 at 19:14; Status DC Glycerin/ Hypromellose/ Polyethylene (Artificial Tears) 1 drop PRN Q1HR PRN OU DRY EYE; Start 12/26/20 at 19:15 Dexmedetomidine HCl 400 mcg/ Sodium Chloride 100 ml @ 4.725 mls/ hr CONT PRN IV PER PROTOCOL; Start 12/26/20 at 19:15 Midazolam HCl (Versed) 5 mg PRN 1X PRN IVP VENT INDUCTION; Start 12/26/20 at 19:15; Stop 12/27/20 at 19:14; Status DC Sodium Chloride 500 ml @ 500 mls/hr 1X PRN PRN IV SEE COMMENTS; Start 12/26/20 at 19:15 Atropine Sulfate (ATROPINE 0.5mg SYRINGE) 0.5 mg PRN Q5MIN PRN IV SEE COMMENTS; Start 12/26/20 at 19:15 Famotidine (Pepcid Vial) 20 mg BID IVP Last administered on 12/27/20at 09:00; Start 12/26/20 at 21:00; Stop 12/27/20 at 10:19; Status DC Ringer's Solution 1,000 ml @ 100 mls/hr Q10H IV Last administered on 12/28/20at 04:37; Start 12/26/20 at 19:30; Stop 12/29/20 at 10:28; Status DC Etomidate (Amidate) 20 mg STK-MED ONCE IV ; Start 12/26/20 at 19:19; Stop 12/26/20 at 19:19; Status DC Succinylcholine Chloride (Anectine) 200 mg 1X ONCE IV Last administered on 12/26/20at 19:38; Start 12/26/20 at 21:15; Stop 12/26/20 at 21:16; Status DC Etomidate (Amidate) 20 mg 1X ONCE IV Last administered on 12/26/20at 19:38; Start 12/26/20 at 21:15; Stop 12/26/20 at 21:16; Status DC Dextrose (Dextrose 50%-Water Syringe) 12.5 gm PRN Q15MIN PRN IV SEE COMMENTS Last administered on 12/30/20at 01:07; Start 12/27/20 at 07:30 Sodium Chloride 1,000 ml @ 1,000 mls/hr Q1H PRN IV hypotension; Start 12/27/20 at 08:15; Stop 12/27/20 at 14:14; Status DC Albumin Human 200 ml @ 200 mls/hr 1X PRN PRN IV Hypotension; Start 12/27/20 at 08:15; Stop 12/27/20 at 14:14; Status DC Sodium Chloride 1,000 ml @ 400 mls/hr Q2H30M PRN IV PATENCY; Start 12/27/20 at 08:15; Stop 12/27/20 at 20:14; Status DC Info (PHARMACY MONITORING -- do not chart) 1 each PRN DAILY PRN MC SEE COMMENTS; Start 12/27/20 at 08:15; Stop 12/28/20 at 09:54; Status DC Dextrose (Dextrose 50%-Water Syringe) 25 gm STK-MED ONCE IV ; Start 12/26/20 at 11:00; Stop 12/27/20 at 08:58; Status DC Phytonadione (Vitamin K Ampule) 10 mg 1X ONCE SQ Last administered on 12/27/20at 11:08; Start 12/27/20 at 09:45; Stop 12/27/20 at 09:49; Status DC Daptomycin 510 mg/ Sodium Chloride 50 ml @ 100 mls/hr QODAY IV Last administered on 12/29/20at 17:13; Start 12/27/20 at 12:00 Meropenem 500 mg/ Sodium Chloride 50 ml @ 100 mls/hr DAILY IV Last administered on 12/30/20at 13:23; Start 12/27/20 at 11:00 Linezolid (Zyvox) 600 mg BID PO Last administered on 12/27/20at 21:48; Start 12/27/20 at 12:00; Stop 12/28/20 at 08:25; Status DC Aspirin (Aspirin Chewable) 81 mg DAILYWBKFT PO Last administered on 12/28/20at 10:10; Start 12/27/20 at 12:00; Stop 12/28/20 at 11:44; Status DC Aspirin (Aspirin Chewable) 81 mg 1X ONCE PO ; Start 12/27/20 at 10:45; Stop 12/27/20 at 10:46; Status UNV Fentanyl Citrate 55 ml @ 0 mls/hr CONT PRN IV PAIN; Start 12/27/20 at 12:45; Status Cancel Sodium Chloride 1,000 ml @ 1,000 mls/hr Q1H PRN IV hypotension; Start 12/28/20 at 07:15; Stop 12/28/20 at 13:14; Status DC Albumin Human 200 ml @ 200 mls/hr 1X ONCE IV Last administered on 12/28/20at 08:22; Start 12/28/20 at 07:45; Stop 12/28/20 at 08:44; Status DC Sodium Chloride 1,000 ml @ 400 mls/hr Q2H30M PRN IV PATENCY; Start 12/28/20 at 07:15; Stop 12/28/20 at 19:14; Status DC Info (PHARMACY MONITORING -- do not chart) 1 each PRN DAILY PRN MC SEE COMMENTS; Start 12/28/20 at 07:15 Phytonadione (Vitamin K Ampule) 10 mg 1X ONCE SQ Last administered on 12/28/20at 10:10; Start 12/28/20 at 08:15; Stop 12/28/20 at 08:16; Status DC Potassium Phosphate 15 mmol/ Sodium Chloride 105 ml @ 52.5 mls/hr 1X ONCE IV Last administered on 12/28/20at 13:32; Start 12/28/20 at 14:00; Stop 12/28/20 at 15:59; Status DC Magnesium Sulfate 50 ml @ 25 mls/hr 1X ONCE IV Last administered on 12/28/20at 13:33; Start 12/28/20 at 12:45; Stop 12/28/20 at 14:44; Status DC Sodium Phosphate 40 mmol/Sodium Chloride 263.3333 ml @ 62.5 mls/hr 1X ONCE IV Last administered on 12/29/20at 09:51; Start 12/29/20 at 10:00; Stop 12/29/20 at 14:12; Status DC Norepinephrine Bitartrate 32 mg/ Dextrose 250 ml @ 4.603 mls/ hr CONT PRN IV SEE I/O RECORD Last administered on 12/30/20at 04:13; Start 12/29/20 at 11:00 Phytonadione (Vitamin K Ampule) 10 mg 1X ONCE SQ Last administered on 12/29/20at 11:40; Start 12/29/20 at 11:00; Stop 12/29/20 at 11:05; Status DC Sodium Chloride 1,000 ml @ 1,000 mls/hr Q1H PRN IV hypotension; Start 12/29/20 at 14:30; Stop 12/29/20 at 20:29; Status DC Sodium Chloride 1,000 ml @ 400 mls/hr Q2H30M PRN IV PATENCY; Start 12/29/20 at 14:30; Stop 12/30/20 at 02:29; Status DC Info (PHARMACY MONITORING -- do not chart) 1 each PRN DAILY PRN MC SEE COMMENTS; Start 12/29/20 at 14:30 Sodium Chloride 1,000 ml @ 1,000 mls/hr Q1H PRN IV hypotension; Start 12/30/20 at 07:00; Stop 12/30/20 at 12:59; Status DC Albumin Human 200 ml @ 200 mls/hr 1X ONCE IV Last administered on 12/30/20at 07:50; Start 12/30/20 at 07:00; Stop 12/30/20 at 07:59; Status DC Sodium Chloride 1,000 ml @ 400 mls/hr Q2H30M PRN IV PATENCY; Start 12/30/20 at 07:00; Stop 12/30/20 at 18:59 Info (PHARMACY MONITORING -- do not chart) 1 each PRN DAILY PRN MC SEE COMMENTS; Start 12/30/20 at 07:00 Active Scripts Active Nafcillin 2 Gm/ 100 Ml Inj (Nafcillin In Dextrose,Iso-Osm) 2 Gm/100 Ml Froz.piggy 2 Gm IV Q4HRS 30 Days Reported Acetaminophen 325 Mg Tablet 650 Mg PO QHS Aspirin 81 Mg Tab.chew 1 Tab PO DAILY Men's Multivitamin Tablet (Multivit-Min/Folic/Vit K/Lycop) 1 Each Tablet 1 Each PO DAILY Pravastatin Sodium 80 Mg Tablet 1 Tab PO DAILY Lasix (Furosemide) 40 Mg Tablet 1 Tab PO DAILY Colace (Docusate Sodium) 100 Mg Capsule 1 Cap PO PRN BID PRN Vitals/I & O Vital Sign - Last 24 Hours 12/29/20 12/29/20 12/29/20 12/29/20 14:30 15:00 15:00 15:28 Temp 99.5 98.7 99.5 98.7 Pulse 67 67 71 Resp 16 16 16 B/P (MAP) 109/46 103/46 106/51 Pulse Ox 96 96 O2 Delivery Ventilator Ventilator 12/29/20 12/29/20 12/29/20 12/29/20 15:34 16:00 16:00 16:50 Temp 98.5 98.5 98.5 98.5 Pulse 70 67 Resp 16 16 B/P (MAP) 117/60 103/55 Pulse Ox 96 98 O2 Delivery Ventilator Mechanical Ventilator Ventilator 12/29/20 12/29/20 12/29/20 12/29/20 17:00 17:15 17:30 19:00 Pulse 70 62 64 78 Resp 16 16 16 B/P (MAP) 142/64 123/56 90/44 116/58 Pulse Ox 97 96 100 O2 Delivery Ventilator Ventilator Ventilator 12/29/20 12/29/20 12/29/20 12/29/20 20:00 20:00 20:32 21:00 Temp 99.7 99.7 Pulse 61 62 Resp 16 16 B/P (MAP) 125/56 120/57 Pulse Ox 100 99 100 O2 Delivery Ventilator Mechanical Ventilator Ventilator Ventilator 12/29/20 12/29/20 12/29/20 12/30/20 22:00 22:00 23:00 00:00 Temp 98.8 98.8 Pulse 66 76 64 Resp 16 16 16 B/P (MAP) 127/57 118/55 111/59 Pulse Ox 100 99 100 99 O2 Delivery Ventilator Ventilator Ventilator Ventilator 12/30/20 12/30/20 12/30/20 12/30/20 00:00 00:18 01:00 02:00 Pulse 69 77 Resp 16 16 B/P (MAP) 119/62 115/54 Pulse Ox 99 100 100 O2 Delivery Mechanical Ventilator Ventilator Ventilator Ventilator 12/30/20 12/30/20 12/30/20 12/30/20 02:16 02:46 03:00 03:19 Pulse 79 Resp 16 B/P (MAP) 130/67 Pulse Ox 100 100 100 100 O2 Delivery Ventilator Ventilator O2 Flow Rate 15.0 15.0 12/30/20 12/30/20 12/30/20 12/30/20 04:00 04:00 05:00 05:35 Temp 99.7 99.7 Pulse 72 70 Resp 16 16 B/P (MAP) 122/59 115/57 Pulse Ox 100 98 100 O2 Delivery Ventilator Mechanical Ventilator Ventilator Ventilator 12/30/20 12/30/20 12/30/20 12/30/20 06:00 07:00 07:40 07:45 Pulse 73 68 68 Resp 16 16 B/P (MAP) 116/56 97/51 92/50 Pulse Ox 99 99 100 O2 Delivery Ventilator Ventilator Ventilator 12/30/20 12/30/20 12/30/20 12/30/20 08:00 08:00 08:15 08:30 Temp 99.2 99.2 Pulse 70 70 70 B/P (MAP) 79/42 85/43 104/53 O2 Delivery Mechanical Ventilator 12/30/20 12/30/20 12/30/20 12/30/20 09:00 09:42 10:00 10:30 Pulse 72 72 67 Resp 16 16 B/P (MAP) 108/58 98/48 89/48 Pulse Ox 99 100 99 O2 Delivery Ventilator Ventilator Ventilator 12/30/20 12/30/20 12/30/20 12/30/20 10:45 11:00 11:31 11:55 Pulse 73 72 Resp 16 B/P (MAP) 142/63 108/50 Pulse Ox 100 100 O2 Delivery Ventilator Ventilator Mechanical Ventilator 12/30/20 12/30/20 12/30/20 12:00 13:00 13:15 Temp 98.2 98.2 Pulse 79 72 74 Resp 16 16 B/P (MAP) 108/47 112/54 122/53 Pulse Ox 99 99 O2 Delivery Ventilator Ventilator Intake and Output 12/29/20 12/29/20 12/30/20 15:00 23:00 07:00 Intake Total 813.74 ml 699.53 ml 22.59 ml Output Total 0 ml Balance 813.74 ml 699.53 ml 22.59 ml Justifications for Admission Other Justification DARIELA MOSQUERA MD Dec 30, 2020 14:18
--- NOTE | 2020-12-30 15:58 | NUR ---
SS following up with discharge planning. SS reviewed pt chart and discussed with pt RN. Pt is currently on the vent at 50%. COVID19 negative. Pt on IV Daptomycin and IV Meropenem. Levophed. Pt on Hemodialysis. Sedation off. SS will continue to follow for discharge planning.
[2020-12-30] MEDS: ATORVASTATIN CALCIUM 20 MG TABLET PO SCH (20:40)
[2020-12-30] MEDS: EPOETIN ALFA-EPBX for ESRD 20,000 UNIT/ML VIAL. SQ SCH (20:41)
[2020-12-30] MEDS: ACETAMINOPHEN 325 MG TABLET. PO SCH (21:00)
[2020-12-30] MEDS: IV DEXTROSE 5% 1,000 ML IV SCH (22:01)
[2020-12-31] VITALS (24 sets, daily range): BP systolic 99–122; BP diastolic 41–107
[2020-12-31] MEDS: NOREPINEPHRINE VIAL 32 MG in IV D5W 250ML IV PRN (00:39)
--- NOTE | 2020-12-31 03:15 | RAD ---
US ABDOMEN LIMITED: 12/30/2020 7:32 PM Indication: 85 years old Male. Elevated bilirubin Comparison: None. TECHNIQUE: Sonographic evaluation of the right upper quadrant was performed utilizing grayscale and c olor Doppler imaging. FINDINGS: Limited evaluation secondary to patient's clinical status on ventilator and bowel gas. Liver: Partial of hepatocellular There is hepatopedal flow within the portal venous system. Right hep atic lobe measures 16.3 cm. Biliary system: CBD not well visualized. There is no intrahepatic or extrahepatic biliary dilatation. Gallbladder: No gallstones, wall thickening or pericholecystic fluid. . Sonographic Morrison sign: Nega tive Pancreas: Nonvisualized. Right kidney: 12.0 x 4.5 x 5.4 cm. No hydronephrosis. Normal echotexture without focal mass or renal calculus. Superior pole right renal cyst measures 2.9 x 1.7 x 2.5 cm. Free fluid:None. IMPRESSION: Increased echogenicity of the hepatic parenchyma in relation to the right kidney suggestive of underl jelena hepatocellular disease, most commonly hepatic steatosis. This limits evaluation for underlying h epatic lesions. Simple right renal cyst measures 2.9 cm. CBD is not well visualized. Electronically signed by: Narda Roberts MD (12/31/2020 3:12 AM) [facility]
--- NOTE | 2020-12-31 05:20 | PDOC ---
PULMONARY PROGRESS NOTES DATE: 12/31/20 TIME: 05:20 Subjective on vent off sedation no response scant ett secretion on levo on daily HD Rate of 16 tidal volume 50% FiO2 5 of PEEP Vitals Vital Signs Date Time Temp Pulse Resp B/P (MAP) Pulse Ox O2 Delivery O2 Flow Rate FiO2 12/31/20 02:27 100 Ventilator 12/31/20 00:01 98.3 68 16 114/55 98.3 Comments on vent off sedation no response ros unable to obtain HEENT: Other (nc at perrl orally intubated nose clear ) Lungs: Clear Cardiovascular: S1, S2 Abdomen: Soft Extremities: Other (Edema) Skin: Warm Labs Laboratory Tests Test 12/29/20 07:15 12/29/20 11:32 12/29/20 17:19 12/29/20 17:34 O2 Saturation 89 % (92-99) Arterial Blood pH 7.36 (7.35-7.45) Arterial Blood pCO2 at Patient Temp 49 mmHg (35-46) Arterial Blood pO2 at Patient Temp 56 mmHg (65-108) Arterial Blood HCO3 28 mmol/L (21-28) Arterial Blood Base Excess 2 mmol/L (-3-3) FiO2 50/vent Glucose (Fingerstick) 83 mg/dL (70-99) 43 mg/dL (70-99) 195 mg/dL (70-99) Test 12/29/20 17:35 12/30/20 01:02 12/30/20 01:17 12/30/20 01:31 Hemoglobin 8.1 g/dL (13.0-17.5) Hematocrit 24.3 % (39.0-53.0) Mean Corpuscular Hemoglobin Concent 33 g/dL (31-37) Glucose (Fingerstick) 44 mg/dL (70-99) 75 mg/dL (70-99) 119 mg/dL (70-99) Test 12/30/20 06:32 12/30/20 06:35 12/30/20 07:55 12/30/20 11:05 Glucose (Fingerstick) 78 mg/dL (70-99) White Blood Count 15.7 x10^3/uL (4.0-11.0) Red Blood Count 2.76 x10^6/uL (4.30-5.70) Hemoglobin 8.1 g/dL (13.0-17.5) Hematocrit 24.6 % (39.0-53.0) Mean Corpuscular Volume 89 fL (79-100) Mean Corpuscular Hemoglobin 29 pg (25-35) Mean Corpuscular Hemoglobin Concent 33 g/dL (31-37) Red Cell Distribution Width 24.5 % (11.5-14.5) Platelet Count 53 x10^3/uL (140-400) Neutrophils (%) (Auto) 79 % (31-73) Lymphocytes (%) (Auto) 11 % (24-48) Monocytes (%) (Auto) 6 % (0-9) Eosinophils (%) (Auto) 3 % (0-3) Basophils (%) (Auto) 1 % (0-3) Neutrophils # (Auto) 12.4 x10^3/uL (1.8-7.7) Lymphocytes # (Auto) 1.7 x10^3/uL (1.0-4.8) Monocytes # (Auto) 1.0 x10^3/uL (0.0-1.1) Eosinophils # (Auto) 0.5 x10^3/uL (0.0-0.7) Basophils # (Auto) 0.2 x10^3/uL (0.0-0.2) Prothrombin Time 23.1 SEC (11.7-14.0) Prothromb Time International Ratio 2.1 (0.8-1.1) Sodium Level 136 mmol/L (136-145) Potassium Level 3.8 mmol/L (3.5-5.1) Chloride Level 99 mmol/L (98-107) Carbon Dioxide Level 29 mmol/L (21-32) Anion Gap 8 (6-14) Blood Urea Nitrogen 24 mg/dL (8-26) Creatinine 3.6 mg/dL (0.7-1.3) Estimated GFR (Cockcroft-Gault) 16.3 BUN/Creatinine Ratio 7 (6-20) Glucose Level 89 mg/dL (70-99) Calcium Level 7.2 mg/dL (8.5-10.1) Phosphorus Level 3.6 mg/dL (2.6-4.7) Magnesium Level 2.1 mg/dL (1.8-2.4) Total Bilirubin 11.8 mg/dL (0.2-1.0) Aspartate Amino Transf (AST/SGOT) 376 U/L (15-37) Alanine Aminotransferase (ALT/SGPT) 44 U/L (16-63) Alkaline Phosphatase 164 U/L (46-116) Total Protein 6.2 g/dL (6.4-8.2) Albumin 2.1 g/dL (3.4-5.0) Albumin/Globulin Ratio 0.5 (1.0-1.7) Ammonia 51 mcmol/L (11-34) Haptoglobin 11 mg/dL (38-329) Direct Bilirubin 8.0 mg/dL (0.0-0.2) Lactate Dehydrogenase 501 U/L (85-227) Test 12/30/20 11:27 12/30/20 14:30 12/30/20 17:54 12/30/20 21:29 Glucose (Fingerstick) 77 mg/dL (70-99) 85 mg/dL (70-99) 78 mg/dL (70-99) 76 mg/dL (70-99) Test 12/31/20 00:22 12/31/20 00:28 Glucose (Fingerstick) 71 mg/dL (70-99) 93 mg/dL (70-99) Laboratory Tests Test 12/30/20 06:32 12/30/20 06:35 12/30/20 07:55 12/30/20 11:05 Glucose (Fingerstick) 78 mg/dL (70-99) White Blood Count 15.7 x10^3/uL (4.0-11.0) Red Blood Count 2.76 x10^6/uL (4.30-5.70) Hemoglobin 8.1 g/dL (13.0-17.5) Hematocrit 24.6 % (39.0-53.0) Mean Corpuscular Volume 89 fL (79-100) Mean Corpuscular Hemoglobin 29 pg (25-35) Mean Corpuscular Hemoglobin Concent 33 g/dL (31-37) Red Cell Distribution Width 24.5 % (11.5-14.5) Platelet Count 53 x10^3/uL (140-400) Neutrophils (%) (Auto) 79 % (31-73) Lymphocytes (%) (Auto) 11 % (24-48) Monocytes (%) (Auto) 6 % (0-9) Eosinophils (%) (Auto) 3 % (0-3) Basophils (%) (Auto) 1 % (0-3) Neutrophils # (Auto) 12.4 x10^3/uL (1.8-7.7) Lymphocytes # (Auto) 1.7 x10^3/uL (1.0-4.8) Monocytes # (Auto) 1.0 x10^3/uL (0.0-1.1) Eosinophils # (Auto) 0.5 x10^3/uL (0.0-0.7) Basophils # (Auto) 0.2 x10^3/uL (0.0-0.2) Prothrombin Time 23.1 SEC (11.7-14.0) Prothromb Time International Ratio 2.1 (0.8-1.1) Sodium Level 136 mmol/L (136-145) Potassium Level 3.8 mmol/L (3.5-5.1) Chloride Level 99 mmol/L (98-107) Carbon Dioxide Level 29 mmol/L (21-32) Anion Gap 8 (6-14) Blood Urea Nitrogen 24 mg/dL (8-26) Creatinine 3.6 mg/dL (0.7-1.3) Estimated GFR (Cockcroft-Gault) 16.3 BUN/Creatinine Ratio 7 (6-20) Glucose Level 89 mg/dL (70-99) Calcium Level 7.2 mg/dL (8.5-10.1) Phosphorus Level 3.6 mg/dL (2.6-4.7) Magnesium Level 2.1 mg/dL (1.8-2.4) Total Bilirubin 11.8 mg/dL (0.2-1.0) Aspartate Amino Transf (AST/SGOT) 376 U/L (15-37) Alanine Aminotransferase (ALT/SGPT) 44 U/L (16-63) Alkaline Phosphatase 164 U/L (46-116) Total Protein 6.2 g/dL (6.4-8.2) Albumin 2.1 g/dL (3.4-5.0) Albumin/Globulin Ratio 0.5 (1.0-1.7) Ammonia 51 mcmol/L (11-34) Haptoglobin 11 mg/dL (38-329) Direct Bilirubin 8.0 mg/dL (0.0-0.2) Lactate Dehydrogenase 501 U/L (85-227) Test 12/30/20 11:27 12/30/20 14:30 12/30/20 17:54 12/30/20 21:29 Glucose (Fingerstick) 77 mg/dL (70-99) 85 mg/dL (70-99) 78 mg/dL (70-99) 76 mg/dL (70-99) Test 12/31/20 00:22 12/31/20 00:28 Glucose (Fingerstick) 71 mg/dL (70-99) 93 mg/dL (70-99) Medications Active Scripts Medications Dose Route/Sig Max Daily Dose Days Date Category Nafcillin 2 Gm/ 100 Ml Inj (Nafcillin In Dextrose,Iso-Osm) 2 Gm/100 Ml Froz.piggy 2 Gm IV Q4HRS 30 12/16/20 Rx Acetaminophen 325 Mg Tablet 650 Mg PO QHS 11/28/20 Reported Aspirin 81 Mg Tab.chew 1 Tab PO DAILY 11/01/20 Reported Men's Multivitamin Tablet (Multivit-Min/Folic/Vit K/Lycop) 1 Each Tablet 1 Each PO DAILY 07/19/20 Reported Pravastatin Sodium 80 Mg Tablet 1 Tab PO DAILY 03/02/19 Reported Lasix (Furosemide) 40 Mg Tablet 1 Tab PO DAILY 01/11/14 Reported Colace (Docusate Sodium) 100 Mg Capsule 1 Cap PO PRN BID PRN 01/11/14 Reported Comments cxr reviewed Aeration of the lungs appears similar to the prior examination. Support lines and tubes are in similar position. Impression . IMPRESSION: 1. Acute hypoxemic respiratory failure, multifactorial. 2. Abnormal x-ray compatible with acute respiratory distress syndrome, possible pneumonia. 3. Persistent methicillin-sensitive Staph aureus bacteremia, present upon admission. 4. Right [place] joint methicillin-susceptible Staphylococcus aureus septic arthritis. 5. Metabolic toxic encephalopathy. 6. Atrial fibrillation. 7. Hypertension. 8. Liver failure. 9. Severe protein malnutrition, present upon admission. 10. Acute renal failure. 11. Septic shock Plan . Updated 12/31 cont vent support setting reviewed 02 titration as tolerated on pepcid monitor WBC hb Continue current support Nutritional support Hemodialysis prognosis poor discussed w rn Updated 12/30 Discussed with GI service WBC noted Continue current support Nutritional support Hemodialysis Patient with multiorgan failure, not expected to survive Updated 11/4 Transfuse per paving and surfacing labourer Continue current support Negative fluid balance with hemodialysis Antibiotics per ID Nutritional support ABG noted updated PaO2 56 ISMAEL CHAVEZ MD Dec 31, 2020 05:20
--- NOTE | 2020-12-31 05:33 | RAD ---
XR CHEST 1V 12/31/2020 4:51 AM INDICATION: Ventilator 12/28/2020 COMPARISON: 2 TECHNIQUE: Portable frontal view of the chest is provided. FINDINGS: The cardiomediastinal silhouette is left chest wall cardiac device is in similar position. Right IJ c entral venous catheters, endotracheal tube and nasogastric tube are in similar position. Small bilate ral pleural effusions with adjacent compressive atelectasis versus infiltrate. Moderate mixed interst itial and alveolar airspace disease identified throughout the lungs, similar to the prior examination . No pneumothorax. No suspicious osseous abnormality. IMPRESSION: Aeration of the lungs appears similar to the prior examination. Support lines and tubes are in simila r position. Electronically signed by: Narda Roberts MD (12/31/2020 5:30 AM) [facility]
[2020-12-31 06:46] LABS: ALBUMIN 2.3 g/dL (3.4-5.0); CALCIUM 7.5 mg/dL (8.5-10.1); CREATININE 3.3 mg/dL (0.7-1.3); PHOSPHORUS 2.6 mg/dL (2.6-4.7); POTASSIUM 3.6 mmol/L (3.5-5.1)
[2020-12-31] MEDS: MEROPENEM 500 MG in IV NORMAL SALINE 50ML 50 ML IV SCH (08:05)
[2020-12-31] MEDS: PANTOPRAZOLE IV PUSH 40 MG VIAL. IVP SCH (08:05)
[2020-12-31 08:22] LABS: BASE EXCESS ABG 2 mmol/L (-3-3); HCO3 ABG 27 mmol/L (21-28); PCO2 ABG 43 mmHg (35-46); PO2 ABG 78 mmHg (65-108); SAT O2 ABG 96 % (92-99)
[2020-12-31 08:30] LABS: FIO2 ABG 50% AC16/500/5
[2020-12-31] MEDS: DAPTOmycin (GENERIC) IVPB 510 MG in IV NORMAL SALINE 50ML 50 ML IV SCH (09:33)
--- NOTE | 2020-12-31 09:47 | PDOC ---
Provider Note Date of Service: DATE: 12/31/20 TIME: 09:45 Provider Note bp ok on levo drip- O2 50 %, peeep 6 , bili down to 8, platelets low, inr high still- on dato/merrem for sepsis, dialysis- prognosis poor but remains dnr, dr ulrich has discussed w/ son re same, i am covering x 3 days Justifications for Admission Other Justification BRADLEY ACEVES MD Dec 31, 2020 09:47
--- NOTE | 2020-12-31 12:23 | PDOC ---
PROGRESS NOTES Date of Service: DATE: 12/31/20 TIME: 12:23 Subjective Subjective Remains intubated and needing pressors Objective Objective Vital Signs Date Time Temp Pulse Resp B/P (MAP) Pulse Ox O2 Delivery O2 Flow Rate FiO2 12/31/20 12:00 98.1 70 16 107/53 100 Ventilator 98.1 Intake and Output 12/31/20 06:59 Intake Total 1141.74 ml Output Total 300 ml Balance 841.74 ml IV Total 723.74 ml Tube Feeding 418 ml Output Urine Total 0 ml Gastric Drainage Total 300 ml Physical Exam Abdomen: Normal bowel sounds, Soft Heart: Regular rate Extremities: No clubbing, Other (1-2+ pitting edema) General: Other (Intubated and sedated) HEENT: Atraumatic Lungs: Other (Mildly decreased breath sounds) Neuro: Other (Unable to assess) Skin: No rashes Assessment Assessment 1. Weakness, mechanical fall with right knee effusion: s/p I & D 2. Sepsis, MSSA bacteremia: no intracardiac vegetation per SOO. 3. SSS, s/p PPM. generator change ([employer]) 11/01/2020. normal function 4. CAD: clinically stable 5. Permanent AFIB: rate controlled with intermittent v-pacing. 6. Coagulopathy due to warfarin; OAC held. s/p vit K INR at 2.1 7. Chronic diastolic CHF; echo with normal EF and WM 8. GUERO; on hemodialysis 9. HTN: controlled with levophed 10. HLP: on statin 11. Anemia; s/p transfusion. Mild hemoptysis persists 12. Generalized ecchymoses and petechiae Recommendations Poor candidate for OAC given anemia, fall risk Secondary prevention as able Metoprolol for rate control Fluid offloading via HD Ongoing treatment of sepsis/bacteremia per ID team Supportive care, pressor support Consider outpatient referral of LAAO Poor prognosis. Patient is DNR. Plan Plan of Care Problems Medical Problems: (1) Hypokalemia Status: Acute (2) Person under investigation for COVID-19 Status: Acute (3) Pneumonia Status: Acute (4) Sepsis Status: Acute Comment Review of Relevant I have reviewed the following items mel (where applicable) has been applied. Labs Laboratory Tests Test 12/30/20 14:30 12/30/20 17:54 12/30/20 21:29 11/6/21 00:22 Glucose (Fingerstick) 85 mg/dL (70-99) 78 mg/dL (70-99) 76 mg/dL (70-99) 71 mg/dL (70-99) Test 12/31/20 00:28 12/31/20 06:00 12/31/20 06:03 12/31/20 07:50 Glucose (Fingerstick) 93 mg/dL (70-99) 96 mg/dL (70-99) Sodium Level 137 mmol/L (136-145) Potassium Level 3.6 mmol/L (3.5-5.1) Chloride Level 99 mmol/L (98-107) Carbon Dioxide Level 30 mmol/L (21-32) Anion Gap 8 (6-14) Blood Urea Nitrogen 25 mg/dL (8-26) Creatinine 3.3 mg/dL (0.7-1.3) Estimated GFR (Cockcroft-Gault) 18.0 Glucose Level 110 mg/dL (70-99) Calcium Level 7.5 mg/dL (8.5-10.1) Phosphorus Level 2.6 mg/dL (2.6-4.7) Albumin 2.3 g/dL (3.4-5.0) O2 Saturation 96 % (92-99) Arterial Blood pH 7.42 (7.35-7.45) Arterial Blood pCO2 at Patient Temp 43 mmHg (35-46) Arterial Blood pO2 at Patient Temp 78 mmHg (65-108) Arterial Blood HCO3 27 mmol/L (21-28) Arterial Blood Base Excess 2 mmol/L (-3-3) FiO2 50% ac16/500/5 Test 12/31/20 11:48 Glucose (Fingerstick) 94 mg/dL (70-99) Microbiology 12/27/20 Blood Culture - Preliminary, Resulted NO GROWTH AFTER 4 DAYS 12/22/20 Gram Stain Evaluation - Final, Complete 12/22/20 Respiratory Culture - Final, Complete 12/07/20 Urine Culture - Final, Complete 12/04/20 Gram Stain - Final, Complete 12/04/20 Aerobic and Anaerobic Culture - Final, Complete Medications Current Medications Dextrose 1,000 ml @ 30 mls/hr Q24H IV Last administered on 12/30/20at 22:01; Start 12/30/20 at 21:45 Vitals/I & O Vital Sign - Last 24 Hours 12/30/20 12/30/20 12/30/20 12/30/20 13:00 13:15 13:30 14:00 Pulse 72 74 74 72 Resp 16 16 B/P (MAP) 112/54 122/53 106/52 106/52 Pulse Ox 99 99 O2 Delivery Ventilator Ventilator 12/30/20 12/30/20 12/30/20 12/30/20 14:07 15:00 15:15 15:30 Pulse 70 68 70 Resp 16 B/P (MAP) 117/50 114/56 115/49 Pulse Ox 99 99 O2 Delivery Ventilator Ventilator 12/30/20 12/30/20 12/30/20 12/30/20 15:39 15:45 15:55 16:00 Temp 99.7 99.7 Pulse 73 70 Resp 16 B/P (MAP) 110/48 104/45 Pulse Ox 98 98 O2 Delivery Ventilator Mechanical Ventilator Ventilator 12/30/20 12/30/20 12/30/20 12/30/20 17:00 18:00 18:09 19:00 Pulse 67 60 Resp 16 16 16 B/P (MAP) 104/47 108/47 Pulse Ox 100 100 100 100 O2 Delivery Ventilator Ventilator Ventilator Ventilator 12/30/20 12/30/20 12/30/20 12/30/20 19:00 20:00 20:00 20:00 Temp 99.4 99.4 Pulse 66 66 Resp 16 16 B/P (MAP) 110/51 113/53 Pulse Ox 100 100 100 O2 Delivery Ventilator Ventilator Mechanical Ventilator Ventilator 12/30/20 12/30/20 12/30/20 12/30/20 21:00 22:00 22:00 23:00 Pulse 64 66 68 Resp 16 16 16 B/P (MAP) 122/53 113/59 105/55 Pulse Ox 100 100 99 100 O2 Delivery Ventilator Ventilator Ventilator Ventilator 12/31/20 12/31/20 12/31/20 12/31/20 00:00 00:00 00:01 01:00 Temp 98.3 98.3 Pulse 68 62 Resp 16 16 B/P (MAP) 114/55 108/53 Pulse Ox 100 100 98 O2 Delivery Ventilator Mechanical Ventilator Ventilator Ventilator 12/31/20 12/31/20 12/31/20 12/31/20 02:00 02:27 03:00 04:00 Pulse 66 68 Resp 16 16 B/P (MAP) 99/41 109/47 Pulse Ox 99 100 99 O2 Delivery Ventilator Ventilator Ventilator Mechanical Ventilator 12/31/20 12/31/20 12/31/20 12/31/20 04:00 04:30 05:00 06:00 Temp 99.3 99.3 Pulse 70 68 60 Resp 16 16 16 B/P (MAP) 122/56 109/55 121/63 Pulse Ox 99 99 99 99 O2 Delivery Ventilator Ventilator Ventilator Ventilator 12/31/20 12/31/20 12/31/20 12/31/20 07:00 07:33 08:00 08:00 Temp 97.9 97.9 Pulse 61 68 Resp 16 16 B/P (MAP) 116/60 115/53 Pulse Ox 100 100 100 O2 Delivery Ventilator Ventilator Ventilator Mechanical Ventilator 12/31/20 12/31/20 12/31/20 12/31/20 09:00 09:04 10:00 11:00 Pulse 67 68 71 Resp 16 16 16 B/P (MAP) 107/56 105/53 115/47 Pulse Ox 100 100 100 100 O2 Delivery Ventilator Ventilator Ventilator Ventilator 12/31/20 12/31/20 12/31/20 11:59 12:00 12:00 Temp 98.1 98.1 Pulse 70 Resp 16 B/P (MAP) 107/53 Pulse Ox 100 100 O2 Delivery Ventilator Mechanical Ventilator Ventilator Intake and Output 12/30/20 12/30/20 12/31/20 14:59 22:59 06:59 Intake Total 22.59 ml 616.15 ml 503 ml Output Total 300 ml 0 ml Balance -277.41 ml 616.15 ml 503 ml IRMA GONZALES MD Dec 31, 2020 12:23
--- NOTE | 2020-12-31 12:25 | PDOC ---
Infectious Disease Note Subjective: Subjective Patient remains critically ill intubated off sedation,not responsive T bili inc to 11.8 d/w RN Vital Signs: Vital Signs Vital Signs Date Time Temp Pulse Resp B/P (MAP) Pulse Ox O2 Delivery O2 Flow Rate FiO2 12/31/20 12:00 98.1 70 16 107/53 100 Ventilator 98.1 Physical Exam: PHYSICAL EXAM GENERAL: Intubated/sedated HEENT: ETT OGT in place NECK: Right IJ placed , chest wall has right HDC looks clean LUNGS: Decreased HEART: S1, S2, systolic murmur present. Pacemaker site looks okay ABDOMEN: Soft, nontender, nondistended. EXTREMITIES: Right knee prepatellar swelling, mild erythema , no drainage, DERMATOLOGIC: No generalized rash, multiple purpuric lesions both feet and upper extremity.? Embolic NEUROLOGIC: Unable to assess Lines as above Medications: Inpatient Meds: Medications reviewed. Labs: Lab Laboratory Tests Test 12/30/20 14:30 12/30/20 17:54 12/30/20 21:29 12/31/20 00:22 Glucose (Fingerstick) 85 mg/dL (70-99) 78 mg/dL (70-99) 76 mg/dL (70-99) 71 mg/dL (70-99) Test 12/31/20 00:28 12/31/20 06:00 12/31/20 06:03 12/31/20 07:50 Glucose (Fingerstick) 93 mg/dL (70-99) 96 mg/dL (70-99) Sodium Level 137 mmol/L (136-145) Potassium Level 3.6 mmol/L (3.5-5.1) Chloride Level 99 mmol/L (98-107) Carbon Dioxide Level 30 mmol/L (21-32) Anion Gap 8 (6-14) Blood Urea Nitrogen 25 mg/dL (8-26) Creatinine 3.3 mg/dL (0.7-1.3) Estimated GFR (Cockcroft-Gault) 18.0 Glucose Level 110 mg/dL (70-99) Calcium Level 7.5 mg/dL (8.5-10.1) Phosphorus Level 2.6 mg/dL (2.6-4.7) Albumin 2.3 g/dL (3.4-5.0) O2 Saturation 96 % (92-99) Arterial Blood pH 7.42 (7.35-7.45) Arterial Blood pCO2 at Patient Temp 43 mmHg (35-46) Arterial Blood pO2 at Patient Temp 78 mmHg (65-108) Arterial Blood HCO3 27 mmol/L (21-28) Arterial Blood Base Excess 2 mmol/L (-3-3) FiO2 50% ac16/500/5 Test 12/31/20 11:48 Glucose (Fingerstick) 94 mg/dL (70-99) Micro Chest x-ray IMPRESSION: 1. Increase in diffuse mixed interstitial and alveolar infiltrate and small pleural effusions. 2. Stable cardiomegaly and cardiac pacemaker. 3. Right internal jugular catheter with the tip overlying expected position of the superior cavoatrial junction. Objective: Assessment: Patient with prolonged hospitalization and complicated medical course now with multiorgan failure Persistent methicillin sensitive staph aureus bacteremia 4 of 4 bottles present on admission 11/28/2020, November 30 and December 02 History of PPM.H/O recent battery exchange. SOO negative for vegetation or thrombus Rt [place] joint MSSA septic arthritis status post synovial aspirate WBC 30,000 RBC 66,000 Status post irrigation debridement of right knee joint and prepatellar bursa on December 04, 2020 Cultures positive for MSSA Sepsis Leukocytosis and lactic acidosis Thrombocytopenia acute,Hematology consulted Respiratory failure status post intubation on 12/26/2020/appears multifactorial ARDS D Dimer elevated Encephalopathy Neurology following,? anoxic encephalopathy Anemia status post PRBC 12/27/2020 History of fall present on admission. GUERO on HD urine eosinophil negative Abnormal LFTs likely shock liver with worsening hyperbilirubinemia History of atrial fibrillation. CHF status post PPM Hypertension. Coagulopathy on admission Nausea and vomiting couple of days ago which had resolved Plan: Plan of Care Liver U/S noted,CBD could not be visualized Continue meropenem ,Cont Daptomycin repeat bc negative so far Monitor labs and cultures, due to worsening LFTs Bood culture remain negative, UA and urine culture not done as patient is anuric Wound care as directed by orthopedics Hematology consulted Critically ill Overall long-term prognosis is very poor Consider palliative care/comfort measures Discussed with nursing staff ELIZABETH BALLESTEROS MD Dec 31, 2020 12:25
--- NOTE | 2020-12-31 14:01 | PDOC ---
DATE OF SERVICE DATE: 12/31/20 TIME: 13:56 SUBJECTIVE ROS Remains intubated , on pressors, Unresponsive OBJECTIVE Vital Signs Vital Signs Date Time Temp Pulse Resp B/P (MAP) Pulse Ox O2 Delivery O2 Flow Rate FiO2 12/31/20 13:00 69 16 112/52 100 Ventilator 12/31/20 12:00 98.1 98.1 I & 0 Intake and Output 12/31/20 07:00 Intake Total 1119.15 ml Output Total 300 ml Balance 819.15 ml IV Total 701.15 ml Tube Feeding 418 ml Output Urine Total 0 ml Gastric Drainage Total 300 ml PHYSICAL EXAM Physical Exam GENERAL: Intubated HEENT: Normocephalic, atraumatic. icteric+. NECK: right HDC LUNGS: Decreased at bases HEART: S1, S2, systolic murmur present. Pacemaker + ABDOMEN: Soft, nontender, nondistended. EXTREMITIES: Right knee prepatellar swelling, erythema and warmth are improving cool,mottled digits DERMATOLOGIC: No generalized rash, Skin Jaundiced NEUROLOGIC: Unable to assess, unresponsive No Mejia DIAGNOSIS/ASSESSMENT Assessment & Plan GUERO - ATN 2/ 2 Hypotension/ Sepsis Anuric- Requiring Dialysis 1st on 12/12 ; Dialyzed every day this week (M-F) . Hold off today , Currently no emergent indication . Critically ill, supportive care , strict I/O Access Currently has Temp HDC . HypoKalemia - K normal HypoPhos Normal today HypoMg- Normal today Acute hypoxemic respiratory failure, multifactorial- Transferred to ICU, Intubated, On MV . Abnormal x-ray compatible with acute respiratory distress syndrome, possible pneumonia. Anemia required PRBC. continue LIDIA . Recent PRBC HyperBilirubinemia- Bilirubin going up , GI following Persistent methicillin sensitive staph aureus bacteremia 4 of 4 bottles present on admission 11/28/2020 .History of PPM.H/O recent battery exchange. SOO negative for vegetation or thrombus Rt [place] joint MSSA septic arthritis S/P synovial aspirate ,Status post irrigation debridement of right knee joint and prepatellar bursa on December 04, 2020.Cultures positive for MSSA History of PPM.H/O recent battery exchange. History of atrial fibrillation. COMMENT/RELEVANT DATA Meds Current Medications Medications (Trade) Dose Ordered Sig/Gia Start Time Stop Time Status Last Admin Dose Admin Acetaminophen (Tylenol) 650 mg QHS 11/29/20 21:00 12/29/20 20:45 650 MG Acetaminophen/ Hydrocodone Bitart (Lortab 10/325) 1 tab PRN Q4HRS PRN 12/05/20 20:00 12/24/20 14:02 1 TAB Acetaminophen/ Hydrocodone Bitart (Lortab 5/325) 1 tab PRN Q4HRS PRN 11/28/20 22:45 12/05/20 19:50 DC 12/05/20 17:38 1 TAB Albumin Human 200 ml @ 200 mls/hr 1X ONCE 12/30/20 07:00 12/30/20 07:59 DC 12/30/20 07:50 200 MLS/HR Aspirin (Aspirin Chewable) 81 mg 1X ONCE 12/27/20 10:45 12/27/20 10:46 UNV Aspirin (Ecotrin) 81 mg [id number] 12/23/20 13:00 12/27/20 10:33 DC 12/24/20 08:40 81 MG Atorvastatin Calcium (Lipitor) 40 mg QHS 12/19/20 21:00 12/30/20 20:40 40 MG Atropine Sulfate (ATROPINE 0.5mg SYRINGE) 0.5 mg PRN Q5MIN PRN 12/26/20 19:15 Azithromycin 250 ml @ 250 mls/hr DAILY ONCE 11/30/20 09:00 11/30/20 09:59 UNV Azithromycin 500 mg/Sodium Chloride 250 ml @ 250 mls/hr Q24H 11/29/20 15:00 11/29/20 13:50 DC Benzocaine (Hurricaine One) 1 spray STK-MED ONCE 12/05/20 10:06 12/05/20 10:07 DC Carvedilol (Coreg) 3.125 mg BIDWMEALS 12/01/20 12:00 12/05/20 20:11 DC 12/03/20 16:39 3.125 MG Cefazolin Sodium (Ancef) 1 gm Q24H 12/26/20 16:00 12/27/20 10:37 DC 12/26/20 15:29 1 GM Cefazolin Sodium/ Dextrose 50 ml @ As Directed STK-MED ONCE 12/23/20 13:57 12/23/20 13:58 DC Cefepime HCl (Maxipime) 1 gm Q24H 12/22/20 11:00 12/26/20 11:56 DC 12/25/20 12:32 1 GM Ceftriaxone Sodium (Rocephin) 2 gm Q24H 11/29/20 14:00 12/01/20 09:19 DC 11/30/20 13:21 2 GM Daptomycin 500 mg/ Sodium Chloride 50 ml @ 100 mls/hr Q48H 12/13/20 10:00 12/26/20 11:55 DC 12/25/20 17:33 100 MLS/HR Daptomycin 510 mg/ Sodium Chloride 50 ml @ 100 mls/hr QODAY 12/27/20 12:00 12/31/20 09:33 100 MLS/HR Daptomycin 580 mg/ Sodium Chloride 50 ml @ 100 mls/hr Q24H 12/01/20 07:30 12/01/20 09:19 DC 12/01/20 08:52 100 MLS/HR Dexamethasone Sodium Phosphate (Decadron) 4 mg STK-MED ONCE 12/04/20 11:26 12/04/20 11:26 DC Dexmedetomidine HCl 400 mcg/ Sodium Chloride 100 ml @ 4.725 mls/ hr CONT PRN 12/26/20 19:15 Dextrose 1,000 ml @ 30 mls/hr Q24H 12/30/20 21:45 12/30/20 22:01 30 MLS/HR Dextrose (Dextrose 50%-Water Syringe) 25 gm STK-MED ONCE 12/26/20 11:00 12/27/20 08:58 DC Docusate Sodium (Colace) 100 mg PRN BID PRN 12/17/20 17:45 12/30/20 07:24 100 MG Epoetin Krishna-epbx (RETACRIT for ESRD PTS) 10,000 unit MoWeFr@2100 12/14/20 21:00 12/30/20 20:41 10,000 UNIT Etomidate (Amidate) 20 mg 1X ONCE 12/26/20 21:15 12/26/20 21:16 DC 12/26/20 19:38 20 MG Famotidine (Pepcid Vial) 20 mg BID 12/26/20 21:00 12/27/20 10:19 DC 12/27/20 09:00 20 MG Fentanyl Citrate 55 ml @ 0 mls/hr CONT PRN 12/27/20 12:45 Cancel Fentanyl Citrate (Fentanyl 2ml Vial) 100 mcg 1X ONCE 12/23/20 14:00 12/23/20 14:06 DC 12/23/20 14:00 50 MCG Furosemide (Lasix) 40 mg 1X ONCE 12/25/20 23:00 12/25/20 23:05 DC 12/25/20 23:16 40 MG Glycerin/ Hypromellose/ Polyethylene (Artificial Tears) 1 drop PRN Q1HR PRN 12/26/20 19:15 Hydromorphone HCl (Dilaudid) 0.5 mg PRN Q10MIN PRN 12/04/20 09:30 12/05/20 09:29 DC Influenza Virus Vaccine Quadrival (Flulaval Quad [id number] Syringe) 0.5 ml ONCE ONCE 11/29/20 09:00 11/29/20 09:01 DC 11/29/20 10:06 0.5 ML Info (PHARMACY MONITORING -- do not chart) 1 each PRN DAILY PRN 12/30/20 07:00 Lactobacillus Rhamnosus (Culturelle) 1 cap BID 11/29/20 21:00 12/27/20 21:38 DC 12/24/20 22:38 1 CAP Lidocaine HCl (Buffered Lidocaine 1%) 4 ml 1X ONCE 12/12/20 13:15 12/12/20 13:18 DC 12/12/20 13:11 4 ML Lidocaine HCl (Lidocaine 1% 20ml Vial) 10 ml 1X ONCE 12/01/20 16:00 12/01/20 16:01 DC Lidocaine HCl (Lidocaine Pf 2% Vial) 5 ml STK-MED ONCE 12/04/20 10:43 12/04/20 10:43 DC Lidocaine HCl (Viscous Lidocaine) 15 ml STK-MED ONCE 12/05/20 10:06 12/05/20 10:06 DC Lidocaine HCl (Xylocaine 2% Topical 30gm Tube) 30 hiro STK-MED ONCE 12/05/20 10:06 12/05/20 10:06 DC Lidocaine/ Epinephrine (LIDOCAINE 1%-EPI 1:100,000 Multi-Dose) 20 ml 1X ONCE 12/23/20 14:15 12/23/20 14:16 DC 12/23/20 14:15 8 ML Linezolid (Zyvox) 600 mg BID 12/27/20 12:00 12/28/20 08:25 DC 12/27/20 21:48 600 MG Magnesium Sulfate 50 ml @ 25 mls/hr 1X ONCE 12/28/20 12:45 12/28/20 14:44 DC 12/28/20 13:33 25 MLS/HR Meropenem 500 mg/ Sodium Chloride 50 ml @ 100 mls/hr DAILY 12/27/20 11:00 12/31/20 08:05 100 MLS/HR Metoprolol Succinate (Toprol Xl) 25 mg DAILY 12/09/20 09:00 12/25/20 10:43 DC 12/24/20 08:41 25 MG Midazolam HCl (Versed) 5 mg PRN 1X PRN 12/26/20 19:15 12/27/20 19:14 DC Morphine Sulfate (Morphine Sulfate) 1 mg PRN Q10MIN PRN 12/04/20 09:30 12/05/20 09:29 DC Nafcillin Sodium 2 gm/Dextrose 100 ml @ 200 mls/hr Q4HRS 12/01/20 10:00 12/21/20 08:19 DC 12/21/20 04:11 200 MLS/HR Norepinephrine Bitartrate 32 mg/ Dextrose 250 ml @ 4.603 mls/ hr CONT PRN 12/29/20 11:00 12/31/20 00:39 11.048 MLS/HR Norepinephrine Bitartrate 8 mg/ Dextrose 258 ml @ 18.286 mls/ hr CONT PRN 12/26/20 19:15 12/29/20 10:50 DC 12/29/20 05:57 49.372 MLS/HR Ondansetron HCl (Zofran) 4 mg STK-MED ONCE 12/04/20 11:26 12/04/20 11:26 DC Pantoprazole Sodium (PROTONIX VIAL for IV PUSH) 40 mg DAILYAC 12/27/20 07:30 12/31/20 08:05 40 MG Pantoprazole Sodium (Protonix) 40 mg DAILYAC 12/20/20 09:15 12/26/20 10:17 DC 12/24/20 06:15 40 MG Phenylephrine HCl (PHENYLEPHRINE in 0.9% NACL PF) 1 mg STK-MED ONCE 12/04/20 10:43 12/04/20 10:43 DC Phytonadione (Vitamin K Ampule) 10 mg 1X ONCE 12/29/20 11:00 12/29/20 11:05 DC 12/29/20 11:40 10 MG Polyethylene Glycol (miraLAX PACKET) 17 gm PRN DAILY PRN 12/03/20 19:00 12/30/20 07:24 17 GM Potassium Chloride/Water 100 ml @ 50 mls/hr 1X ONCE 11/28/20 14:45 11/28/20 16:44 DC 11/28/20 16:20 50 MLS/HR Potassium Phosphate 15 mmol/ Sodium Chloride 105 ml @ 52.5 mls/hr 1X ONCE 12/28/20 14:00 12/28/20 15:59 DC 12/28/20 13:32 52.5 MLS/HR Potassium Chloride (Klor-Con) 20 meq 1X ONCE 12/10/20 19:00 12/10/20 19:01 DC 12/10/20 18:52 20 MEQ Prochlorperazine Edisylate (Compazine) 5 mg PACU PRN PRN 12/04/20 09:30 12/05/20 09:29 DC Propofol (Diprivan) 200 mg STK-MED ONCE 12/05/20 09:29 12/05/20 09:30 DC Ringer's Solution 1,000 ml @ 100 mls/hr Q10H 12/26/20 19:30 12/29/20 10:28 DC 12/28/20 04:37 100 MLS/HR Sevoflurane (Ultane) 60 ml STK-MED ONCE 12/04/20 11:14 12/04/20 11:14 DC Sodium Chloride 1,000 ml @ 400 mls/hr Q2H30M PRN 12/30/20 07:00 12/30/20 18:59 DC Sodium Chloride (Normal Saline Flush) 10 ml 1X PRN PRN 12/23/20 10:15 12/24/20 10:14 DC Sodium Chloride (Saline Mist Nasal) 1 hiro PRN Q1HR PRN 12/02/20 20:45 12/20/20 23:52 1 HIRO Sodium Phosphate 40 mmol/Sodium Chloride 263.3333 ml @ 62.5 mls/hr 1X ONCE 12/29/20 10:00 12/29/20 14:12 DC 12/29/20 09:51 62.5 MLS/HR Succinylcholine Chloride (Anectine) 200 mg 1X ONCE 12/26/20 21:15 12/26/20 21:16 DC 12/26/20 19:38 200 MG Vecuronium [place] (Norcuron Bolus) 6 mg PRN 1X PRN 12/26/20 19:15 12/27/20 19:14 DC Warfarin Sodium (Coumadin) 3.75 mg DAILY 11/30/20 09:00 UNV Zolpidem Tartrate (Ambien) 5 mg PRN QHS PRN 12/05/20 20:00 12/23/20 22:11 5 MG Lab Laboratory Tests Test 12/30/20 14:30 12/30/20 17:54 12/30/20 21:29 12/31/20 00:22 Glucose (Fingerstick) 85 mg/dL (70-99) 78 mg/dL (70-99) 76 mg/dL (70-99) 71 mg/dL (70-99) Test 12/31/20 00:28 12/31/20 06:00 12/31/20 06:03 12/31/20 07:50 Glucose (Fingerstick) 93 mg/dL (70-99) 96 mg/dL (70-99) Sodium Level 137 mmol/L (136-145) Potassium Level 3.6 mmol/L (3.5-5.1) Chloride Level 99 mmol/L (98-107) Carbon Dioxide Level 30 mmol/L (21-32) Anion Gap 8 (6-14) Blood Urea Nitrogen 25 mg/dL (8-26) Creatinine 3.3 mg/dL (0.7-1.3) Estimated GFR (Cockcroft-Gault) 18.0 Glucose Level 110 mg/dL (70-99) Calcium Level 7.5 mg/dL (8.5-10.1) Phosphorus Level 2.6 mg/dL (2.6-4.7) Creatine Kinase 14 U/L (39-308) Albumin 2.3 g/dL (3.4-5.0) O2 Saturation 96 % (92-99) Arterial Blood pH 7.42 (7.35-7.45) Arterial Blood pCO2 at Patient Temp 43 mmHg (35-46) Arterial Blood pO2 at Patient Temp 78 mmHg (65-108) Arterial Blood HCO3 27 mmol/L (21-28) Arterial Blood Base Excess 2 mmol/L (-3-3) FiO2 50% ac16/500/5 Test 12/31/20 11:48 Glucose (Fingerstick) 94 mg/dL (70-99) Results All relevant outside records, renal labs, imaging studies, telemetry/EKG's were reviewed. Other CxR The cardiomediastinal silhouette is left chest wall cardiac device is in similar position. Right IJ central venous catheters, endotracheal tube and nasogastric tube are in similar position. Small bilateral pleural effusions with adjacent compressive atelectasis versus infiltrate. Moderate mixed interstitial and alveolar airspace disease identified throughout the lungs, similar to the prior examination. No pneumothorax. No suspicious osseous abnormality. IMPRESSION: Aeration of the lungs appears similar to the prior examination. Support lines and tubes are in similar position. Justicifation of Admission Dx: Justifications for Admission: Justification of Admission Dx: N/A MERLE QUIROZ MD Dec 31, 2020 14:01
[2020-12-31] MEDS: ACETAMINOPHEN 325 MG TABLET. PO SCH (21:00)
[2020-12-31] MEDS: ATORVASTATIN CALCIUM 20 MG TABLET PO SCH (21:13)
--- NOTE | 2020-12-31 23:22 | NUR ---
Patient with episode of 38 BTS of VTach during the night; Paged Dr. Sidhu. Dr. Sidhu returned call, notified of arrhythmia orders received for Magnesium Sulfate 2 MG IV and repeat Mag in AM.
[2020-12-31] MEDS ORDERED: MAGNESIUM SULFATE 2GM 50 ML IV ONE (23:45)
[2021-01-01] VITALS (25 sets, daily range): BP systolic 90–115; BP diastolic 38–74
[2021-01-01] MEDS: NOREPINEPHRINE VIAL 32 MG in IV D5W 250ML IV PRN (01:00)
[2021-01-01] MEDS: IV DEXTROSE 5% 1,000 ML IV SCH (03:54)
--- NOTE | 2021-01-01 05:56 | PDOC ---
PULMONARY PROGRESS NOTES DATE: 01/01/21 TIME: 05:55 Subjective on vent off sedation no response scant ett secretion on levo no HD 12/31 Rate of 16 tidal volume 50% FiO2 5 of PEEP Vitals Vital Signs Date Time Temp Pulse Resp B/P (MAP) Pulse Ox O2 Delivery O2 Flow Rate FiO2 01/01/21 05:00 64 16 101/52 100 Ventilator 01/01/21 04:00 98.8 98.8 Comments on vent off sedation no response ros unable to obtain HEENT: Other (nc at perrl orally intubated nose clear ) Lungs: Clear Cardiovascular: S1, S2 Abdomen: Soft Extremities: Other (Edema) Skin: Warm Labs Laboratory Tests Test 12/30/20 06:32 12/30/20 06:35 12/30/20 07:55 12/30/20 11:05 Glucose (Fingerstick) 78 mg/dL (70-99) White Blood Count 15.7 x10^3/uL (4.0-11.0) Red Blood Count 2.76 x10^6/uL (4.30-5.70) Hemoglobin 8.1 g/dL (13.0-17.5) Hematocrit 24.6 % (39.0-53.0) Mean Corpuscular Volume 89 fL (79-100) Mean Corpuscular Hemoglobin 29 pg (25-35) Mean Corpuscular Hemoglobin Concent 33 g/dL (31-37) Red Cell Distribution Width 24.5 % (11.5-14.5) Platelet Count 53 x10^3/uL (140-400) Neutrophils (%) (Auto) 79 % (31-73) Lymphocytes (%) (Auto) 11 % (24-48) Monocytes (%) (Auto) 6 % (0-9) Eosinophils (%) (Auto) 3 % (0-3) Basophils (%) (Auto) 1 % (0-3) Neutrophils # (Auto) 12.4 x10^3/uL (1.8-7.7) Lymphocytes # (Auto) 1.7 x10^3/uL (1.0-4.8) Monocytes # (Auto) 1.0 x10^3/uL (0.0-1.1) Eosinophils # (Auto) 0.5 x10^3/uL (0.0-0.7) Basophils # (Auto) 0.2 x10^3/uL (0.0-0.2) Prothrombin Time 23.1 SEC (11.7-14.0) Prothromb Time International Ratio 2.1 (0.8-1.1) Sodium Level 136 mmol/L (136-145) Potassium Level 3.8 mmol/L (3.5-5.1) Chloride Level 99 mmol/L (98-107) Carbon Dioxide Level 29 mmol/L (21-32) Anion Gap 8 (6-14) Blood Urea Nitrogen 24 mg/dL (8-26) Creatinine 3.6 mg/dL (0.7-1.3) Estimated GFR (Cockcroft-Gault) 16.3 BUN/Creatinine Ratio 7 (6-20) Glucose Level 89 mg/dL (70-99) Calcium Level 7.2 mg/dL (8.5-10.1) Phosphorus Level 3.6 mg/dL (2.6-4.7) Magnesium Level 2.1 mg/dL (1.8-2.4) Total Bilirubin 11.8 mg/dL (0.2-1.0) Aspartate Amino Transf (AST/SGOT) 376 U/L (15-37) Alanine Aminotransferase (ALT/SGPT) 44 U/L (16-63) Alkaline Phosphatase 164 U/L (46-116) Total Protein 6.2 g/dL (6.4-8.2) Albumin 2.1 g/dL (3.4-5.0) Albumin/Globulin Ratio 0.5 (1.0-1.7) Ammonia 51 mcmol/L (11-34) Haptoglobin 11 mg/dL (38-329) Direct Bilirubin 8.0 mg/dL (0.0-0.2) Lactate Dehydrogenase 501 U/L (85-227) Test 12/30/20 11:27 12/30/20 14:30 12/30/20 17:54 12/30/20 21:29 Glucose (Fingerstick) 77 mg/dL (70-99) 85 mg/dL (70-99) 78 mg/dL (70-99) 76 mg/dL (70-99) Test 12/31/20 00:22 12/31/20 00:28 12/31/20 06:00 12/31/20 06:03 Glucose (Fingerstick) 71 mg/dL (70-99) 93 mg/dL (70-99) 96 mg/dL (70-99) Sodium Level 137 mmol/L (136-145) Potassium Level 3.6 mmol/L (3.5-5.1) Chloride Level 99 mmol/L (98-107) Carbon Dioxide Level 30 mmol/L (21-32) Anion Gap 8 (6-14) Blood Urea Nitrogen 25 mg/dL (8-26) Creatinine 3.3 mg/dL (0.7-1.3) Estimated GFR (Cockcroft-Gault) 18.0 Glucose Level 110 mg/dL (70-99) Calcium Level 7.5 mg/dL (8.5-10.1) Phosphorus Level 2.6 mg/dL (2.6-4.7) Creatine Kinase 14 U/L (39-308) Albumin 2.3 g/dL (3.4-5.0) Test 12/31/20 07:50 12/31/20 11:48 12/31/20 17:56 01/01/21 00:41 O2 Saturation 96 % (92-99) Arterial Blood pH 7.42 (7.35-7.45) Arterial Blood pCO2 at Patient Temp 43 mmHg (35-46) Arterial Blood pO2 at Patient Temp 78 mmHg (65-108) Arterial Blood HCO3 27 mmol/L (21-28) Arterial Blood Base Excess 2 mmol/L (-3-3) FiO2 50% ac16/500/5 Glucose (Fingerstick) 94 mg/dL (70-99) 88 mg/dL (70-99) 91 mg/dL (70-99) Test 01/01/21 05:46 Glucose (Fingerstick) 110 mg/dL (70-99) Laboratory Tests Test 12/31/20 06:00 12/31/20 06:03 12/31/20 07:50 12/31/20 11:48 Sodium Level 137 mmol/L (136-145) Potassium Level 3.6 mmol/L (3.5-5.1) Chloride Level 99 mmol/L (98-107) Carbon Dioxide Level 30 mmol/L (21-32) Anion Gap 8 (6-14) Blood Urea Nitrogen 25 mg/dL (8-26) Creatinine 3.3 mg/dL (0.7-1.3) Estimated GFR (Cockcroft-Gault) 18.0 Glucose Level 110 mg/dL (70-99) Calcium Level 7.5 mg/dL (8.5-10.1) Phosphorus Level 2.6 mg/dL (2.6-4.7) Creatine Kinase 14 U/L (39-308) Albumin 2.3 g/dL (3.4-5.0) Glucose (Fingerstick) 96 mg/dL (70-99) 94 mg/dL (70-99) O2 Saturation 96 % (92-99) Arterial Blood pH 7.42 (7.35-7.45) Arterial Blood pCO2 at Patient Temp 43 mmHg (35-46) Arterial Blood pO2 at Patient Temp 78 mmHg (65-108) Arterial Blood HCO3 27 mmol/L (21-28) Arterial Blood Base Excess 2 mmol/L (-3-3) FiO2 50% ac16/500/5 Test 12/31/20 17:56 01/01/21 00:41 01/01/21 05:46 Glucose (Fingerstick) 88 mg/dL (70-99) 91 mg/dL (70-99) 110 mg/dL (70-99) Medications Active Scripts Medications Dose Route/Sig Max Daily Dose Days Date Category Nafcillin 2 Gm/ 100 Ml Inj (Nafcillin In Dextrose,Iso-Osm) 2 Gm/100 Ml Froz.piggy 2 Gm IV Q4HRS 30 12/16/20 Rx Acetaminophen 325 Mg Tablet 650 Mg PO QHS 11/28/20 Reported Aspirin 81 Mg Tab.chew 1 Tab PO DAILY 11/01/20 Reported Men's Multivitamin Tablet (Multivit-Min/Folic/Vit K/Lycop) 1 Each Tablet 1 Each PO DAILY 07/19/20 Reported Pravastatin Sodium 80 Mg Tablet 1 Tab PO DAILY 03/02/19 Reported Lasix (Furosemide) 40 Mg Tablet 1 Tab PO DAILY 01/11/14 Reported Colace (Docusate Sodium) 100 Mg Capsule 1 Cap PO PRN BID PRN 01/11/14 Reported Comments cxr reviewed Aeration of the lungs appears similar to the prior examination. Support lines and tubes are in similar position. Impression . IMPRESSION: 1. Acute hypoxemic respiratory failure, multifactorial. 2. Abnormal x-ray compatible with acute respiratory distress syndrome, possible pneumonia. 3. Persistent methicillin-sensitive Staph aureus bacteremia, present upon admission. 4. Right nulato joint methicillin-susceptible Staphylococcus aureus septic arthritis. 5. Metabolic toxic encephalopathy. 6. Atrial fibrillation. 7. Hypertension. 8. Liver failure. 9. Severe protein malnutrition, present upon admission. 10. Acute renal failure. 11. Septic shock Plan . 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
[2021-01-01 06:13] LABS: CALCIUM 7.2 mg/dL (8.5-10.1); CREATININE 4.4 mg/dL (0.7-1.3); GFR 12.9; PHOSPHORUS 3.1 mg/dL (2.6-4.7); POTASSIUM 3.9 mmol/L (3.5-5.1)
[2021-01-01] MEDS: PANTOPRAZOLE IV PUSH 40 MG VIAL. IVP SCH (07:52)
[2021-01-01 08:21] LABS: BASE EXCESS ABG 1 mmol/L (-3-3); HCO3 ABG 26 mmol/L (21-28); PCO2 ABG 46 mmHg (35-46); PO2 ABG 77 mmHg (65-108); SAT O2 ABG 95 % (92-99)
[2021-01-01 08:24] LABS: FIO2 ABG 50
--- NOTE | 2021-01-01 09:30 | PDOC ---
PROGRESS NOTES Date of Service: DATE: 01/01/21 TIME: 09:29 Subjective Subjective Intubated and sedated, needing pressor support Objective Objective Vital Signs Date Time Temp Pulse Resp B/P (MAP) Pulse Ox O2 Delivery O2 Flow Rate FiO2 01/01/21 09:00 62 16 103/57 100 Ventilator 01/01/21 08:00 98.7 98.7 Intake and Output 01/01/21 06:59 Intake Total 1876.3 ml Output Total 275 ml Balance 1601.3 ml IV Total 1136.3 ml Tube Feeding 740 ml Output Urine Total 0 ml Gastric Drainage Total 275 ml Physical Exam Abdomen: Normal bowel sounds, Soft Heart: Regular rate Extremities: No clubbing, Other (1-2+ pitting edema) General: Other (Intubated and sedated) HEENT: Atraumatic Lungs: Other (Mildly decreased breath sounds) Neuro: Other (Unable to assess) Skin: No rashes Assessment Assessment 1. Weakness, mechanical fall with right knee effusion: s/p I & D 2. Sepsis, MSSA bacteremia: no intracardiac vegetation per SOO. 3. SSS, s/p PPM. generator change ([employer]) 11/01/2020. normal function 4. CAD: clinically stable 5. Permanent AFIB: rate controlled with intermittent v-pacing. 6. Coagulopathy due to warfarin; OAC held. s/p vit K INR at 2.1 7. Chronic diastolic CHF; echo with normal EF and WM 8. GUERO; on hemodialysis 9. HTN: controlled with levophed 10. HLP: on statin 11. Anemia; s/p transfusion. Mild hemoptysis persists 12. Multisystem organ failure Recommendations Poor candidate for OAC given anemia, fall risk Metoprolol for rate control Fluid offloading via HD Ongoing treatment of sepsis/bacteremia per ID team Supportive care, pressor support Poor prognosis. Patient is DNR. Plan Plan of Care Problems Medical Problems: (1) Hypokalemia Status: Acute (2) Person under investigation for COVID-19 Status: Acute (3) Pneumonia Status: Acute (4) Sepsis Status: Acute Comment Review of Relevant I have reviewed the following items mel (where applicable) has been applied. Labs Laboratory Tests Test 12/31/20 11:48 12/31/20 17:56 01/01/21 00:41 01/01/21 05:46 Glucose (Fingerstick) 94 mg/dL (70-99) 88 mg/dL (70-99) 91 mg/dL (70-99) 110 mg/dL (70-99) Test 01/01/21 05:50 01/01/21 08:10 Sodium Level 132 mmol/L (136-145) Potassium Level 3.9 mmol/L (3.5-5.1) Chloride Level 97 mmol/L (98-107) Carbon Dioxide Level 28 mmol/L (21-32) Anion Gap 7 (6-14) Blood Urea Nitrogen 41 mg/dL (8-26) Creatinine 4.4 mg/dL (0.7-1.3) Estimated GFR (Cockcroft-Gault) 12.9 Glucose Level 115 mg/dL (70-99) Calcium Level 7.2 mg/dL (8.5-10.1) Phosphorus Level 3.1 mg/dL (2.6-4.7) Magnesium Level 2.5 mg/dL (1.8-2.4) Albumin 2.0 g/dL (3.4-5.0) O2 Saturation 95 % (92-99) Arterial Blood pH 7.37 (7.35-7.45) Arterial Blood pCO2 at Patient Temp 46 mmHg (35-46) Arterial Blood pO2 at Patient Temp 77 mmHg (65-108) Arterial Blood HCO3 26 mmol/L (21-28) Arterial Blood Base Excess 1 mmol/L (-3-3) FiO2 50 Microbiology 12/27/20 Blood Culture - Preliminary, Resulted NO GROWTH AFTER 4 DAYS 12/22/20 Gram Stain Evaluation - Final, Complete 12/22/20 Respiratory Culture - Final, Complete 12/07/20 Urine Culture - Final, Complete 12/04/20 Gram Stain - Final, Complete 12/04/20 Aerobic and Anaerobic Culture - Final, Complete Medications Current Medications Magnesium Sulfate 50 ml @ 25 mls/hr 1X ONCE IV Last administered on 12/31/20at 23:39; Start 12/31/20 at 23:45; Stop 01/01/21 at 01:44; Status DC Vitals/I & O Vital Sign - Last 24 Hours 12/31/20 12/31/20 12/31/20 12/31/20 10:00 11:00 11:59 12:00 Pulse 68 71 Resp 16 16 B/P (MAP) 105/53 115/47 Pulse Ox 100 100 100 O2 Delivery Ventilator Ventilator Ventilator Mechanical Ventilator 12/31/20 12/31/20 12/31/20 12/31/20 12:00 13:00 14:00 15:00 Temp 98.1 98.1 Pulse 70 69 65 65 Resp 16 16 16 16 B/P (MAP) 107/53 112/52 117/57 121/53 Pulse Ox 100 100 100 99 O2 Delivery Ventilator Ventilator Ventilator Ventilator 12/31/20 12/31/20 12/31/20 12/31/20 15:47 16:00 16:00 17:00 Temp 98.4 98.4 Pulse 68 70 Resp 16 16 B/P (MAP) 115/57 115/54 Pulse Ox 100 99 100 O2 Delivery Ventilator Mechanical Ventilator Ventilator Ventilator 12/31/20 12/31/20 12/31/20 12/31/20 17:12 18:00 19:00 19:15 Pulse 66 64 Resp 16 16 B/P (MAP) 102/47 102/49 Pulse Ox 100 97 90 100 O2 Delivery Ventilator Ventilator Ventilator Ventilator 12/31/20 12/31/20 12/31/20 12/31/20 20:00 20:00 21:00 21:00 Temp 98.7 98.7 Pulse 64 66 Resp 16 16 B/P (MAP) 105/51 107/51 Pulse Ox 100 100 100 O2 Delivery Mechanical Ventilator Ventilator Ventilator Ventilator 12/31/20 12/31/20 12/31/20 01/01/21 22:00 23:00 23:00 00:00 Pulse 66 64 Resp 16 16 B/P (MAP) 101/52 120/107 Pulse Ox 100 100 100 O2 Delivery Ventilator Ventilator Ventilator Mechanical Ventilator 01/01/21 01/01/21 01/01/21 01/01/21 00:01 01:00 01:01 01:09 Temp 99.2 99.2 Pulse 64 64 64 Resp 16 16 16 B/P (MAP) 110/53 106/46 106/46 Pulse Ox 100 100 100 100 O2 Delivery Ventilator Ventilator Ventilator Ventilator 01/01/21 01/01/21 01/01/21 01/01/21 02:00 03:00 03:00 04:00 Temp 98.8 98.8 Pulse 64 66 64 Resp 16 16 16 B/P (MAP) 95/42 96/38 90/51 Pulse Ox 100 100 100 100 O2 Delivery Ventilator Ventilator Ventilator Ventilator 01/01/21 01/01/21 01/01/21 01/01/21 04:00 05:00 05:00 06:00 Pulse 64 66 Resp 16 16 B/P (MAP) 101/52 113/60 Pulse Ox 100 100 100 O2 Delivery Mechanical Ventilator Ventilator Ventilator Ventilator 01/01/21 01/01/21 01/01/21 01/01/21 07:00 08:00 08:00 08:03 Temp 98.7 98.7 Pulse 60 64 Resp 16 16 B/P (MAP) 94/65 105/52 Pulse Ox 100 100 100 O2 Delivery Ventilator Mechanical Ventilator Ventilator Ventilator 01/01/21 09:00 Pulse 62 Resp 16 B/P (MAP) 103/57 Pulse Ox 100 O2 Delivery Ventilator Intake and Output 12/31/20 12/31/20 01/01/21 14:59 22:59 06:59 Intake Total 186 ml 625.3 ml 1065 ml Output Total 0 ml 0 ml 275 ml Balance 186 ml 625.3 ml 790 ml IRMA GONZALES MD Jan 01, 2021 09:29
--- NOTE | 2021-01-01 10:01 | PDOC ---
Provider Note Date of Service: DATE: 01/01/21 TIME: 10:00 Provider Note satus same, same vent settings- will do bili t/d, platelts , rest same, prognosis appears poor for notable recovery as multisystem failure present Justifications for Admission Other Justification BRADLEY ACEVES MD Jan 01, 2021 10:01
[2021-01-01 10:29] LABS: BASO # 0.1 x10^3/uL (0.0-0.2); BASO % 1 % (0-3); EOS # 0.6 x10^3/uL (0.0-0.7); EOS % 4 % (0-3); HEMATOCRIT 24.7 % (39.0-53.0); HEMOGLOBIN 8.1 g/dL (13.0-17.5); LYMPH % 6 % (24-48); MEAN CORPUSCULAR HEMOGLOBIN 31 pg (25-35); MEAN CORPUSCULAR HGB CONC 33 g/dL (31-37); MEAN CORPUSCULAR VOLUME 93 fL (79-100); MONO # 1.4 x10^3/uL (0.0-1.1); MONO % 9 % (0-9); NEUT # 12.3 x10^3/uL (1.8-7.7); NEUT % 80 % (31-73); PLATELET COUNT 57 x10^3/uL (140-400); RED BLOOD COUNT 2.66 x10^6/uL (4.30-5.70); WHITE BLOOD COUNT 15.4 x10^3/uL (4.0-11.0)
[2021-01-01 10:31] LABS: DIRECT BILIRUBIN 10.2 mg/dL (0.0-0.2); TOTAL BILIRUBIN 14.3 mg/dL (0.2-1.0)
--- NOTE | 2021-01-01 13:10 | PDOC ---
DATE OF SERVICE DATE: 01/01/21 TIME: 13:07 SUBJECTIVE ROS Remains intubated Unresponsive OBJECTIVE Vital Signs Vital Signs Date Time Temp Pulse Resp B/P (MAP) Pulse Ox O2 Delivery O2 Flow Rate FiO2 01/01/21 12:00 Mechanical Ventilator 01/01/21 12:00 98.9 63 16 105/52 99 98.9 I & 0 Intake and Output 01/01/21 07:00 Intake Total 1876.3 ml Output Total 275 ml Balance 1601.3 ml IV Total 1136.3 ml Tube Feeding 740 ml Output Urine Total 0 ml Gastric Drainage Total 275 ml PHYSICAL EXAM Physical Exam GENERAL: Intubated HEENT: Normocephalic, atraumatic. icteric+. NECK: right HDC LUNGS: Decreased at bases HEART: S1, S2, systolic murmur present. Pacemaker + ABDOMEN: Soft, nontender, nondistended. EXTREMITIES: Right knee prepatellar swelling, erythema and warmth are improving cool,mottled digits DERMATOLOGIC: No generalized rash, Skin Jaundiced NEUROLOGIC: Unable to assess, unresponsive No Mejia DIAGNOSIS/ASSESSMENT Assessment & Plan GUERO - ATN 2/ 2 Hypotension/ Sepsis Anuric- Requiring Dialysis 1st on 12/12 ; Dialyzed every day this week (M-F) . Currently no emergent indication for HD . Critically ill, supportive care , strict I/O Access Currently has Temp HDC . HypoKalemia - K normal HypoPhos Normal today HypoMg- Normal today Acute hypoxemic respiratory failure, multifactorial- Transferred to ICU, Intubated, On MV . Abnormal x-ray compatible with acute respiratory distress syndrome, possible pneumonia. Anemia required PRBC. continue LIDIA . Recent PRBC HyperBilirubinemia- Bilirubin going up , GI following Persistent methicillin sensitive staph aureus bacteremia 4 of 4 bottles present on admission 11/28/2020 .History of PPM.H/O recent battery exchange. SOO negative for vegetation or thrombus Rt marshall joint MSSA septic arthritis S/P synovial aspirate ,Status post irrig ation debridement of right knee joint and prepatellar bursa on December 04, 2020.Cultures positive for MSSA History of PPM.H/O recent battery exchange. History of atrial fibrillation. COMMENT/RELEVANT DATA Meds Current Medications Medications (Trade) Dose Ordered Sig/Gia Start Time Stop Time Status Last Admin Dose Admin Acetaminophen (Tylenol) 650 mg QHS 11/29/20 21:00 11/4/21 20:45 650 MG Acetaminophen/ Hydrocodone Bitart (Lortab 10/325) 1 tab PRN Q4HRS PRN 12/05/20 20:00 12/24/20 14:02 1 TAB Acetaminophen/ Hydrocodone Bitart (Lortab 5/325) 1 tab PRN Q4HRS PRN 11/28/20 22:45 12/05/20 19:50 DC 12/05/20 17:38 1 TAB Albumin Human 200 ml @ 200 mls/hr 1X ONCE 12/30/20 07:00 12/30/20 07:59 DC 12/30/20 07:50 200 MLS/HR Aspirin (Aspirin Chewable) 81 mg 1X ONCE 12/27/20 10:45 12/27/20 10:46 UNV Aspirin (Ecotrin) 81 mg [id number] 12/23/20 13:00 12/27/20 10:33 DC 12/24/20 08:40 81 MG Atorvastatin Calcium (Lipitor) 40 mg QHS 12/19/20 21:00 12/31/20 21:13 40 MG Atropine Sulfate (ATROPINE 0.5mg SYRINGE) 0.5 mg PRN Q5MIN PRN 12/26/20 19:15 Azithromycin 250 ml @ 250 mls/hr DAILY ONCE 11/30/20 09:00 11/30/20 09:59 UNV Azithromycin 500 mg/Sodium Chloride 250 ml @ 250 mls/hr Q24H 11/29/20 15:00 11/29/20 13:50 DC Benzocaine (Hurricaine One) 1 spray STK-MED ONCE 12/05/20 10:06 12/05/20 10:07 DC Carvedilol (Coreg) 3.125 mg BIDWMEALS 12/01/20 12:00 12/05/20 20:11 DC 12/03/20 16:39 3.125 MG Cefazolin Sodium (Ancef) 1 gm Q24H 12/26/20 16:00 12/27/20 10:37 DC 12/26/20 15:29 1 GM Cefazolin Sodium/ Dextrose 50 ml @ As Directed STK-MED ONCE 12/23/20 13:57 12/23/20 13:58 DC Cefepime HCl (Maxipime) 1 gm Q24H 12/22/20 11:00 12/26/20 11:56 DC 12/25/20 12:32 1 GM Ceftriaxone Sodium (Rocephin) 2 gm Q24H 11/29/20 14:00 12/01/20 09:19 DC 11/30/20 13:21 2 GM Daptomycin 500 mg/ Sodium Chloride 50 ml @ 100 mls/hr Q48H 12/13/20 10:00 12/26/20 11:55 DC 12/25/20 17:33 100 MLS/HR Daptomycin 510 mg/ Sodium Chloride 50 ml @ 100 mls/hr QODAY 12/27/20 12:00 12/31/20 09:33 100 MLS/HR Daptomycin 580 mg/ Sodium Chloride 50 ml @ 100 mls/hr Q24H 12/01/20 07:30 12/01/20 09:19 DC 12/01/20 08:52 100 MLS/HR Dexamethasone Sodium Phosphate (Decadron) 4 mg STK-MED ONCE 12/04/20 11:26 12/04/20 11:26 DC Dexmedetomidine HCl 400 mcg/ Sodium Chloride 100 ml @ 4.725 mls/ hr CONT PRN 12/26/20 19:15 Dextrose 1,000 ml @ 30 mls/hr Q24H 12/30/20 21:45 01/01/21 03:54 30 MLS/HR Dextrose (Dextrose 50%-Water Syringe) 25 gm STK-MED ONCE 12/26/20 11:00 12/27/20 08:58 DC Docusate Sodium (Colace) 100 mg PRN BID PRN 12/17/20 17:45 12/30/20 07:24 100 MG Epoetin Krishna-epbx (RETACRIT for ESRD PTS) 10,000 unit MoWeFr@2100 12/14/20 21:00 12/30/20 20:41 10,000 UNIT Etomidate (Amidate) 20 mg 1X ONCE 12/26/20 21:15 12/26/20 21:16 DC 12/26/20 19:38 20 MG Famotidine (Pepcid Vial) 20 mg BID 12/26/20 21:00 12/27/20 10:19 DC 12/27/20 09:00 20 MG Fentanyl Citrate 55 ml @ 0 mls/hr CONT PRN 12/27/20 12:45 Cancel Fentanyl Citrate (Fentanyl 2ml Vial) 100 mcg 1X ONCE 12/23/20 14:00 12/23/20 14:06 DC 12/23/20 14:00 50 MCG Furosemide (Lasix) 40 mg 1X ONCE 12/25/20 23:00 12/25/20 23:05 DC 12/25/20 23:16 40 MG Glycerin/ Hypromellose/ Polyethylene (Artificial Tears) 1 drop PRN Q1HR PRN 12/26/20 19:15 Hydromorphone HCl (Dilaudid) 0.5 mg PRN Q10MIN PRN 12/04/20 09:30 12/05/20 09:29 DC Influenza Virus Vaccine Quadrival (Flulaval Quad [id number] Syringe) 0.5 ml ONCE ONCE 11/29/20 09:00 11/29/20 09:01 DC 11/29/20 10:06 0.5 ML Info (PHARMACY MONITORING -- do not chart) 1 each PRN DAILY PRN 12/30/20 07:00 Lactobacillus Rhamnosus (Culturelle) 1 cap BID 11/29/20 21:00 12/27/20 21:38 DC 12/24/20 22:38 1 CAP Lidocaine HCl (Buffered Lidocaine 1%) 4 ml 1X ONCE 12/12/20 13:15 12/12/20 13:18 DC 12/12/20 13:11 4 ML Lidocaine HCl (Lidocaine 1% 20ml Vial) 10 ml 1X ONCE 12/01/20 16:00 12/01/20 16:01 DC Lidocaine HCl (Lidocaine Pf 2% Vial) 5 ml STK-MED ONCE 12/04/20 10:43 12/04/20 10:43 DC Lidocaine HCl (Viscous Lidocaine) 15 ml STK-MED ONCE 12/05/20 10:06 12/05/20 10:06 DC Lidocaine HCl (Xylocaine 2% Topical 30gm Tube) 30 hiro STK-MED ONCE 12/05/20 10:06 12/05/20 10:06 DC Lidocaine/ Epinephrine (LIDOCAINE 1%-EPI 1:100,000 Multi-Dose) 20 ml 1X ONCE 12/23/20 14:15 12/23/20 14:16 DC 12/23/20 14:15 8 ML Linezolid (Zyvox) 600 mg BID 12/27/20 12:00 12/28/20 08:25 DC 12/27/20 21:48 600 MG Magnesium Sulfate 50 ml @ 25 mls/hr 1X ONCE 12/31/20 23:45 01/01/21 01:44 DC 12/31/20 23:39 25 MLS/HR Meropenem 500 mg/ Sodium Chloride 50 ml @ 100 mls/hr DAILY 12/27/20 11:00 12/31/20 16:05 DC 12/31/20 08:05 100 MLS/HR Metoprolol Succinate (Toprol Xl) 25 mg DAILY 12/09/20 09:00 12/25/20 10:43 DC 12/24/20 08:41 25 MG Midazolam HCl (Versed) 5 mg PRN 1X PRN 12/26/20 19:15 12/27/20 19:14 DC Morphine Sulfate (Morphine Sulfate) 1 mg PRN Q10MIN PRN 12/04/20 09:30 12/05/20 09:29 DC Nafcillin Sodium 2 gm/Dextrose 100 ml @ 200 mls/hr Q4HRS 12/01/20 10:00 12/21/20 08:19 DC 12/21/20 04:11 200 MLS/HR Norepinephrine Bitartrate 32 mg/ Dextrose 250 ml @ 4.603 mls/ hr CONT PRN 12/29/20 11:00 01/01/21 01:00 11.048 MLS/HR Norepinephrine Bitartrate 8 mg/ Dextrose 258 ml @ 18.286 mls/ hr CONT PRN 12/26/20 19:15 12/29/20 10:50 DC 12/29/20 05:57 49.372 MLS/HR Ondansetron HCl (Zofran) 4 mg STK-MED ONCE 12/04/20 11:26 12/04/20 11:26 DC Pantoprazole Sodium (PROTONIX VIAL for IV PUSH) 40 mg DAILYAC 12/27/20 07:30 01/01/21 07:52 40 MG Pantoprazole Sodium (Protonix) 40 mg DAILYAC 12/20/20 09:15 12/26/20 10:17 DC 12/24/20 06:15 40 MG Phenylephrine HCl (PHENYLEPHRINE in 0.9% NACL PF) 1 mg STK-MED ONCE 12/04/20 10:43 12/04/20 10:43 DC Phytonadione (Vitamin K Ampule) 10 mg 1X ONCE 12/29/20 11:00 12/29/20 11:05 DC 12/29/20 11:40 10 MG Polyethylene Glycol (miraLAX PACKET) 17 gm PRN DAILY PRN 12/03/20 19:00 12/30/20 07:24 17 GM Potassium Chloride/Water 100 ml @ 50 mls/hr 1X ONCE 11/28/20 14:45 11/28/20 16:44 DC 11/28/20 16:20 50 MLS/HR Potassium Phosphate 15 mmol/ Sodium Chloride 105 ml @ 52.5 mls/hr 1X ONCE 12/28/20 14:00 12/28/20 15:59 DC 12/28/20 13:32 52.5 MLS/HR Potassium Chloride (Klor-Con) 20 meq 1X ONCE 12/10/20 19:00 12/10/20 19:01 DC 12/10/20 18:52 20 MEQ Prochlorperazine Edisylate (Compazine) 5 mg PACU PRN PRN 12/04/20 09:30 12/05/20 09:29 DC Propofol (Diprivan) 200 mg STK-MED ONCE 12/05/20 09:29 12/05/20 09:30 DC Ringer's Solution 1,000 ml @ 100 mls/hr Q10H 12/26/20 19:30 12/29/20 10:28 DC 12/28/20 04:37 100 MLS/HR Sevoflurane (Ultane) 60 ml STK-MED ONCE 12/04/20 11:14 12/04/20 11:14 DC Sodium Chloride 1,000 ml @ 400 mls/hr Q2H30M PRN 12/30/20 07:00 12/30/20 18:59 DC Sodium Chloride (Normal Saline Flush) 10 ml 1X PRN PRN 12/23/20 10:15 12/24/20 10:14 DC Sodium Chloride (Saline Mist Nasal) 1 hiro PRN Q1HR PRN 12/02/20 20:45 12/20/20 23:52 1 HIRO Sodium Phosphate 40 mmol/Sodium Chloride 263.3333 ml @ 62.5 mls/hr 1X ONCE 12/29/20 10:00 12/29/20 14:12 DC 12/29/20 09:51 62.5 MLS/HR Succinylcholine Chloride (Anectine) 200 mg 1X ONCE 12/26/20 21:15 12/26/20 21:16 DC 12/26/20 19:38 200 MG Vecuronium [place] (Norcuron Bolus) 6 mg PRN 1X PRN 12/26/20 19:15 12/27/20 19:14 DC Warfarin Sodium (Coumadin) 3.75 mg DAILY 11/30/20 09:00 UNV Zolpidem Tartrate (Ambien) 5 mg PRN QHS PRN 12/05/20 20:00 12/23/20 22:11 5 MG Lab Laboratory Tests Test 12/31/20 17:56 01/01/21 00:41 01/01/21 05:46 01/01/21 05:50 Glucose (Fingerstick) 88 mg/dL (70-99) 91 mg/dL (70-99) 110 mg/dL (70-99) White Blood Count 15.4 x10^3/uL (4.0-11.0) Red Blood Count 2.66 x10^6/uL (4.30-5.70) Hemoglobin 8.1 g/dL (13.0-17.5) Hematocrit 24.7 % (39.0-53.0) Mean Corpuscular Volume 93 fL (79-100) Mean Corpuscular Hemoglobin 31 pg (25-35) Mean Corpuscular Hemoglobin Concent 33 g/dL (31-37) Red Cell Distribution Width 26.0 % (11.5-14.5) Platelet Count 57 x10^3/uL (140-400) Neutrophils (%) (Auto) 80 % (31-73) Lymphocytes (%) (Auto) 6 % (24-48) Monocytes (%) (Auto) 9 % (0-9) Eosinophils (%) (Auto) 4 % (0-3) Basophils (%) (Auto) 1 % (0-3) Neutrophils # (Auto) 12.3 x10^3/uL (1.8-7.7) Lymphocytes # (Auto) 1.0 x10^3/uL (1.0-4.8) Monocytes # (Auto) 1.4 x10^3/uL (0.0-1.1) Eosinophils # (Auto) 0.6 x10^3/uL (0.0-0.7) Basophils # (Auto) 0.1 x10^3/uL (0.0-0.2) Sodium Level 132 mmol/L (136-145) Potassium Level 3.9 mmol/L (3.5-5.1) Chloride Level 97 mmol/L (98-107) Carbon Dioxide Level 28 mmol/L (21-32) Anion Gap 7 (6-14) Blood Urea Nitrogen 41 mg/dL (8-26) Creatinine 4.4 mg/dL (0.7-1.3) Estimated GFR (Cockcroft-Gault) 12.9 Glucose Level 115 mg/dL (70-99) Calcium Level 7.2 mg/dL (8.5-10.1) Phosphorus Level 3.1 mg/dL (2.6-4.7) Magnesium Level 2.5 mg/dL (1.8-2.4) Total Bilirubin 14.3 mg/dL (0.2-1.0) Direct Bilirubin 10.2 mg/dL (0.0-0.2) Albumin 2.0 g/dL (3.4-5.0) Test 01/01/21 08:10 01/01/21 12:14 O2 Saturation 95 % (92-99) Arterial Blood pH 7.37 (7.35-7.45) Arterial Blood pCO2 at Patient Temp 46 mmHg (35-46) Arterial Blood pO2 at Patient Temp 77 mmHg (65-108) Arterial Blood HCO3 26 mmol/L (21-28) Arterial Blood Base Excess 1 mmol/L (-3-3) FiO2 50 Glucose (Fingerstick) 84 mg/dL (70-99) Results All relevant outside records, renal labs, imaging studies, telemetry/EKG's were reviewed. Justicifation of Admission Dx: Justifications for Admission: Justification of Admission Dx: N/A MERLE QUIROZ MD Jan 01, 2021 13:09
[2021-01-01] MEDS: ATORVASTATIN CALCIUM 20 MG TABLET PO SCH (20:57)
[2021-01-01] MEDS: ACETAMINOPHEN 325 MG TABLET. PO SCH (21:00)
[2021-01-02] VITALS (27 sets, daily range): BP systolic 76–120; BP diastolic 38–73
[2021-01-02] MEDS: NOREPINEPHRINE VIAL 32 MG in IV D5W 250ML IV PRN (03:27)
[2021-01-02] MEDS: IV DEXTROSE 5% 1,000 ML IV SCH ×2 (04:16→21:43)
[2021-01-02 07:03] LABS: HEMATOCRIT 25.5 % (39.0-53.0); HEMOGLOBIN 8.2 g/dL (13.0-17.5); RED BLOOD COUNT 2.75 x10^6/uL (4.30-5.70); RED CELL DISTRIBUTION WIDTH 27.7 % (11.5-14.5); WHITE BLOOD COUNT 15.7 x10^3/uL (4.0-11.0)
[2021-01-02 07:13] LABS: CALCIUM 6.9 mg/dL (8.5-10.1); CREATININE 5.3 mg/dL (0.7-1.3); GFR 10.4; POTASSIUM 4.4 mmol/L (3.5-5.1)
[2021-01-02 07:21] LABS: BASE EXCESS ABG -1 mmol/L (-3-3); FIO2 ABG 50; HCO3 ABG 25 mmol/L (21-28); PCO2 ABG 48 mmHg (35-46); PO2 ABG 84 mmHg (65-108); SAT O2 ABG 96 % (92-99)
--- NOTE | 2021-01-02 08:10 | PDOC ---
Provider Note Date of Service: DATE: 01/02/21 TIME: 08:08 Provider Note platelets same, total bili up 14 and direct is 10- ominous sign, ? obstruction vs biliary stasis- intervention high risk of bleeding and poor resp sttaus- gi input pending Justifications for Admission Other Justification BRADLEY ACEVES MD Jan 02, 2021 08:10
--- NOTE | 2021-01-02 08:13 | PDOC ---
Infectious Disease Note Subjective: Subjective Patient remains critically ill Remains afebrile intubated off sedation,not responsive T bili worsening d/w RN Vital Signs: Vital Signs Vital Signs Date Time Temp Pulse Resp B/P (MAP) Pulse Ox O2 Delivery O2 Flow Rate FiO2 01/02/21 07:09 100 Ventilator 01/02/21 06:00 64 16 99/51 01/02/21 04:00 97.8 97.8 Physical Exam: PHYSICAL EXAM GENERAL: Intubated/ HEENT: ETT OGT in place, icteric NECK: Right IJ placed , chest wall has right HDC looks clean LUNGS: Decreased HEART: S1, S2, systolic murmur present. Pacemaker site looks okay ABDOMEN: Soft, nontender, nondistended. EXTREMITIES: Right knee prepatellar swelling, mild erythema , no drainage, DERMATOLOGIC: No generalized rash, multiple purpuric lesions both feet and upper extremity. NEUROLOGIC: Unresponsive Lines as above Medications: Inpatient Meds: Medications reviewed. Labs: Lab Laboratory Tests Test 01/01/21 12:14 01/01/21 17:44 01/02/21 01:45 01/02/21 06:45 Glucose (Fingerstick) 84 mg/dL (70-99) 85 mg/dL (70-99) 88 mg/dL (70-99) White Blood Count 15.7 x10^3/uL (4.0-11.0) Red Blood Count 2.75 x10^6/uL (4.30-5.70) Hemoglobin 8.2 g/dL (13.0-17.5) Hematocrit 25.5 % (39.0-53.0) Mean Corpuscular Volume 93 fL (79-100) Mean Corpuscular Hemoglobin 30 pg (25-35) Mean Corpuscular Hemoglobin Concent 32 g/dL (31-37) Red Cell Distribution Width 27.7 % (11.5-14.5) Platelet Count 68 x10^3/uL (140-400) Sodium Level 129 mmol/L (136-145) Potassium Level 4.4 mmol/L (3.5-5.1) Chloride Level 93 mmol/L (98-107) Carbon Dioxide Level 27 mmol/L (21-32) Anion Gap 9 (6-14) Blood Urea Nitrogen 59 mg/dL (8-26) Creatinine 5.3 mg/dL (0.7-1.3) Estimated GFR (Cockcroft-Gault) 10.4 Glucose Level 95 mg/dL (70-99) Calcium Level 6.9 mg/dL (8.5-10.1) Test 01/02/21 06:46 01/02/21 07:10 Glucose (Fingerstick) 77 mg/dL (70-99) O2 Saturation 96 % (92-99) Arterial Blood pH 7.34 (7.35-7.45) Arterial Blood pCO2 at Patient Temp 48 mmHg (35-46) Arterial Blood pO2 at Patient Temp 84 mmHg (65-108) Arterial Blood HCO3 25 mmol/L (21-28) Arterial Blood Base Excess -1 mmol/L (-3-3) FiO2 50 Micro Chest x-ray IMPRESSION: 1. Increase in diffuse mixed interstitial and alveolar infiltrate and small pleural effusions. 2. Stable cardiomegaly and cardiac pacemaker. 3. Right internal jugular catheter with the tip overlying expected position of the superior cavoatrial junction. Objective: Assessment: Patient with prolonged hospitalization and complicated medical course now with multiorgan failure Persistent methicillin sensitive staph aureus bacteremia 4 of 4 bottles present on admission 11/28/2020, November 30 and December 02 History of PPM.H/O recent battery exchange. SOO negative for vegetation or thrombus Rt augustine joint MSSA septic arthritis status post synovial aspirate WBC 30,000 RBC 66,000 Status post irrigation debridement of right knee joint and prepatellar bursa on December 04, 2020 Cultures positive for MSSA Sepsis Leukocytosis and lactic acidosis Thrombocytopenia acute,Hematology consulted Respiratory failure status post intubation on 12/26/2020/appears multifactorial ARDS D Dimer elevated Encephalopathy Neurology following,? anoxic encephalopathy Anemia status post PRBC 12/27/2020 History of fall present on admission. GUERO on HD urine eosinophil negative Abnormal LFTs likely shock liver with worsening hyperbilirubinemia History of atrial fibrillation. CHF status post PPM Hypertension. Coagulopathy on admission Nausea and vomiting couple of days ago which had resolved Plan: Plan of Care Liver U/S noted,CBD could not be visualized ,Cont Daptomycin repeat bc negative so far Monitor labs and cultures, worsening LFTs Bood culture remain negative, UA and urine culture not done as patient is anuric Wound care as directed by orthopedics Critically ill Overall long-term prognosis is very poor Consider palliative care/comfort measures Discussed with nursing staff ELIZABETH BALLESTEROS MD Jan 02, 2021 08:13
[2021-01-02 08:17] LABS: ALBUMIN 1.9 g/dL (3.4-5.0); DIRECT BILIRUBIN 10.4 mg/dL (0.0-0.2); TOTAL BILIRUBIN 14.3 mg/dL (0.2-1.0); TOTAL PROTEIN 6.3 g/dL (6.4-8.2)
[2021-01-02] MEDS: PANTOPRAZOLE IV PUSH 40 MG VIAL. IVP SCH (08:23)
--- NOTE | 2021-01-02 08:51 | PDOC ---
PROGRESS NOTES Date of Service DATE: 01/02/21 TIME: 08:49 Assessment Problems Medical Problems: (1) Hypokalemia Status: Acute (2) Person under investigation for COVID-19 Status: Acute (3) Pneumonia Status: Acute (4) Sepsis Status: Acute Patient worsened and was intubated on 12/26, son wanted full aggressive care. Metabolic encephalopathy Respiratory failure, possible fluid overload, renal failure, sepsis Plan No additional neurological studies indicated Await family decision regarding level of care Subjective None Objective Vital Signs Date Time Temp Pulse Resp B/P (MAP) Pulse Ox O2 Delivery O2 Flow Rate FiO2 01/02/21 08:30 102/52 01/02/21 08:00 98.0 64 19 100 Ventilator 98.0 Intake and Output 01/02/21 07:00 Intake Total 1666.32 ml Output Total 0 ml Balance 1666.32 ml IV Total 970.32 ml Tube Feeding 696 ml Output Urine Total 0 ml PHYSICAL EXAM Intubated off sedated, no response to pain or voice PERRL. EOMI. CN: no focal findings. Muscle tone: normal. Muscle strength: Untestable DTR: 1+ Plantar reflex: Silent Gait: not examined in bed. Sensory exam: Not cooperative Cerebellar: Not cooperative Note necrosis of toes, patient on Levophed Review of Relevant I have reviewed the following items mel (where applicable) has been applied. Labs Laboratory Tests Test 12/31/20 11:48 12/31/20 17:56 01/01/21 00:41 01/01/21 05:46 Glucose (Fingerstick) 94 mg/dL (70-99) 88 mg/dL (70-99) 91 mg/dL (70-99) 110 mg/dL (70-99) Test 01/01/21 05:50 01/01/21 08:10 01/01/21 12:14 01/01/21 17:44 White Blood Count 15.4 x10^3/uL (4.0-11.0) Red Blood Count 2.66 x10^6/uL (4.30-5.70) Hemoglobin 8.1 g/dL (13.0-17.5) Hematocrit 24.7 % (39.0-53.0) Mean Corpuscular Volume 93 fL (79-100) Mean Corpuscular Hemoglobin 31 pg (25-35) Mean Corpuscular Hemoglobin Concent 33 g/dL (31-37) Red Cell Distribution Width 26.0 % (11.5-14.5) Platelet Count 57 x10^3/uL (140-400) Neutrophils (%) (Auto) 80 % (31-73) Lymphocytes (%) (Auto) 6 % (24-48) Monocytes (%) (Auto) 9 % (0-9) Eosinophils (%) (Auto) 4 % (0-3) Basophils (%) (Auto) 1 % (0-3) Neutrophils # (Auto) 12.3 x10^3/uL (1.8-7.7) Lymphocytes # (Auto) 1.0 x10^3/uL (1.0-4.8) Monocytes # (Auto) 1.4 x10^3/uL (0.0-1.1) Eosinophils # (Auto) 0.6 x10^3/uL (0.0-0.7) Basophils # (Auto) 0.1 x10^3/uL (0.0-0.2) Sodium Level 132 mmol/L (136-145) Potassium Level 3.9 mmol/L (3.5-5.1) Chloride Level 97 mmol/L (98-107) Carbon Dioxide Level 28 mmol/L (21-32) Anion Gap 7 (6-14) Blood Urea Nitrogen 41 mg/dL (8-26) Creatinine 4.4 mg/dL (0.7-1.3) Estimated GFR (Cockcroft-Gault) 12.9 Glucose Level 115 mg/dL (70-99) Calcium Level 7.2 mg/dL (8.5-10.1) Phosphorus Level 3.1 mg/dL (2.6-4.7) Magnesium Level 2.5 mg/dL (1.8-2.4) Total Bilirubin 14.3 mg/dL (0.2-1.0) Direct Bilirubin 10.2 mg/dL (0.0-0.2) Albumin 2.0 g/dL (3.4-5.0) O2 Saturation 95 % (92-99) Arterial Blood pH 7.37 (7.35-7.45) Arterial Blood pCO2 at Patient Temp 46 mmHg (35-46) Arterial Blood pO2 at Patient Temp 77 mmHg (65-108) Arterial Blood HCO3 26 mmol/L (21-28) Arterial Blood Base Excess 1 mmol/L (-3-3) FiO2 50 Glucose (Fingerstick) 84 mg/dL (70-99) 85 mg/dL (70-99) Test 01/02/21 01:45 01/02/21 06:45 01/02/21 06:46 01/02/21 07:10 Glucose (Fingerstick) 88 mg/dL (70-99) 77 mg/dL (70-99) White Blood Count 15.7 x10^3/uL (4.0-11.0) Red Blood Count 2.75 x10^6/uL (4.30-5.70) Hemoglobin 8.2 g/dL (13.0-17.5) Hematocrit 25.5 % (39.0-53.0) Mean Corpuscular Volume 93 fL (79-100) Mean Corpuscular Hemoglobin 30 pg (25-35) Mean Corpuscular Hemoglobin Concent 32 g/dL (31-37) Red Cell Distribution Width 27.7 % (11.5-14.5) Platelet Count 68 x10^3/uL (140-400) Sodium Level 129 mmol/L (136-145) Potassium Level 4.4 mmol/L (3.5-5.1) Chloride Level 93 mmol/L (98-107) Carbon Dioxide Level 27 mmol/L (21-32) Anion Gap 9 (6-14) Blood Urea Nitrogen 59 mg/dL (8-26) Creatinine 5.3 mg/dL (0.7-1.3) Estimated GFR (Cockcroft-Gault) 10.4 Glucose Level 95 mg/dL (70-99) Calcium Level 6.9 mg/dL (8.5-10.1) Total Bilirubin 14.3 mg/dL (0.2-1.0) Direct Bilirubin 10.4 mg/dL (0.0-0.2) Aspartate Amino Transf (AST/SGOT) 161 U/L (15-37) Alanine Aminotransferase (ALT/SGPT) 28 U/L (16-63) Alkaline Phosphatase 190 U/L (46-116) Total Protein 6.3 g/dL (6.4-8.2) Albumin 1.9 g/dL (3.4-5.0) O2 Saturation 96 % (92-99) Arterial Blood pH 7.34 (7.35-7.45) Arterial Blood pCO2 at Patient Temp 48 mmHg (35-46) Arterial Blood pO2 at Patient Temp 84 mmHg (65-108) Arterial Blood HCO3 25 mmol/L (21-28) Arterial Blood Base Excess -1 mmol/L (-3-3) FiO2 50 Laboratory Tests Test 01/01/21 12:14 01/01/21 17:44 01/02/21 01:45 01/02/21 06:45 Glucose (Fingerstick) 84 mg/dL (70-99) 85 mg/dL (70-99) 88 mg/dL (70-99) White Blood Count 15.7 x10^3/uL (4.0-11.0) Red Blood Count 2.75 x10^6/uL (4.30-5.70) Hemoglobin 8.2 g/dL (13.0-17.5) Hematocrit 25.5 % (39.0-53.0) Mean Corpuscular Volume 93 fL (79-100) Mean Corpuscular Hemoglobin 30 pg (25-35) Mean Corpuscular Hemoglobin Concent 32 g/dL (31-37) Red Cell Distribution Width 27.7 % (11.5-14.5) Platelet Count 68 x10^3/uL (140-400) Sodium Level 129 mmol/L (136-145) Potassium Level 4.4 mmol/L (3.5-5.1) Chloride Level 93 mmol/L (98-107) Carbon Dioxide Level 27 mmol/L (21-32) Anion Gap 9 (6-14) Blood Urea Nitrogen 59 mg/dL (8-26) Creatinine 5.3 mg/dL (0.7-1.3) Estimated GFR (Cockcroft-Gault) 10.4 Glucose Level 95 mg/dL (70-99) Calcium Level 6.9 mg/dL (8.5-10.1) Total Bilirubin 14.3 mg/dL (0.2-1.0) Direct Bilirubin 10.4 mg/dL (0.0-0.2) Aspartate Amino Transf (AST/SGOT) 161 U/L (15-37) Alanine Aminotransferase (ALT/SGPT) 28 U/L (16-63) Alkaline Phosphatase 190 U/L (46-116) Total Protein 6.3 g/dL (6.4-8.2) Albumin 1.9 g/dL (3.4-5.0) Test 01/02/21 06:46 01/02/21 07:10 Glucose (Fingerstick) 77 mg/dL (70-99) O2 Saturation 96 % (92-99) Arterial Blood pH 7.34 (7.35-7.45) Arterial Blood pCO2 at Patient Temp 48 mmHg (35-46) Arterial Blood pO2 at Patient Temp 84 mmHg (65-108) Arterial Blood HCO3 25 mmol/L (21-28) Arterial Blood Base Excess -1 mmol/L (-3-3) FiO2 50 Microbiology 12/27/20 Blood Culture - Final, Complete NO GROWTH AFTER 5 DAYS 12/22/20 Gram Stain Evaluation - Final, Complete 12/22/20 Respiratory Culture - Final, Complete 12/07/20 Urine Culture - Final, Complete 12/04/20 Gram Stain - Final, Complete 12/04/20 Aerobic and Anaerobic Culture - Final, Complete Medications Current Medications Ceftriaxone Sodium (Rocephin) 1 gm 1X ONCE IVP Last administered on 11/28/20at 13:30; Start 11/28/20 at 13:30; Stop 11/28/20 at 13:31; Status DC Azithromycin 500 mg/Sodium Chloride 250 ml @ 250 mls/hr 1X ONCE IV ; Start 11/28/20 at 13:30; Stop 11/28/20 at 14:29; Status UNV Azithromycin 250 ml @ 250 mls/hr 1X ONCE IV Last administered on 11/28/20at 15:11; Start 11/28/20 at 13:30; Stop 11/28/20 at 14:29; Status DC Acetaminophen (Tylenol) 1,000 mg 1X ONCE PO Last administered on 11/28/20at 15:10; Start 11/28/20 at 14:45; Stop 11/28/20 at 14:46; Status DC Potassium Chloride/Water 100 ml @ 50 mls/hr 1X ONCE IV Last administered on 11/28/20at 16:20; Start 11/28/20 at 14:45; Stop 11/28/20 at 16:44; Status DC Potassium Chloride (Klor-Con) 40 meq 1X ONCE PO Last administered on 11/28/20at 16:21; Start 11/28/20 at 14:45; Stop 11/28/20 at 14:46; Status DC Sodium Chloride 1,000 ml @ 1,000 mls/hr 1X ONCE IV Last administered on 11/28/20at 17:41; Start 11/28/20 at 17:45; Stop 11/28/20 at 18:44; Status DC Acetaminophen (Tylenol) 650 mg PRN Q6HRS PRN PO MILD PAIN / TEMP > 100.3'F Last administered on 11/28/20at 20:36; Start 11/28/20 at 20:30 Influenza Virus Vaccine Quadrival (Flulaval Quad 8210-7154 Syringe) 0.5 ml ONCE ONCE VAX IM Last administered on 11/29/20at 10:06; Start 11/29/20 at 09:00; Stop 11/29/20 at 09:01; Status DC Acetaminophen/ Hydrocodone Bitart (Lortab 5/325) 1 tab PRN Q4HRS PRN PO PAIN mod/severe Last administered on 12/05/20at 17:38; Start 11/28/20 at 22:45; Stop 12/05/20 at 19:50; Status DC Ceftriaxone Sodium (Rocephin) 1 gm Q24H IVP ; Start 11/29/20 at 13:00; Stop 11/29/20 at 13:11; Status DC Azithromycin 250 ml @ 250 mls/hr DAILY ONCE IV ; Start 11/30/20 at 09:00; Stop 11/30/20 at 09:59; Status UNV Azithromycin 500 mg/Sodium Chloride 250 ml @ 250 mls/hr Q24H IV ; Start 11/29/20 at 15:00; Stop 11/29/20 at 13:50; Status DC Acetaminophen (Tylenol) 650 mg QHS PO Last administered on 12/29/20at 20:45; Start 11/29/20 at 21:00 Aspirin (Aspirin Chewable) 81 mg DAILY PO Last administered on 12/19/20at 12:40; Start 11/30/20 at 09:00; Stop 12/19/20 at 14:26; Status DC Docusate Sodium (Colace) 100 mg PRN BID PRN PO HARD STOOLS Last administered on 12/01/20at 12:10; Start 11/29/20 at 09:45; Stop 12/17/20 at 17:41; Status DC Warfarin Sodium (Coumadin) 3.75 mg DAILY PO ; Start 11/30/20 at 09:00; Status UNV Atorvastatin Calcium (Lipitor) 20 mg QHS PO Last administered on 12/18/20at 20:29; Start 11/29/20 at 21:00; Stop 12/19/20 at 14:26; Status DC Daptomycin 500 mg/ Sodium Chloride 50 ml @ 100 mls/hr Q24H IV Last administered on 11/30/20at 13:19; Start 11/29/20 at 13:00; Stop 12/01/20 at 07:3 2; Status DC Ceftriaxone Sodium (Rocephin) 2 gm Q24H IVP Last administered on 11/30/20at 13:21; Start 11/29/20 at 14:00; Stop 12/01/20 at 09:19; Status DC Lactobacillus Rhamnosus (Culturelle) 1 cap BID PO Last administered on 12/24/20at 22:38; Start 11/29/20 at 21:00; Stop 12/27/20 at 21:38; Status DC Daptomycin 580 mg/ Sodium Chloride 50 ml @ 100 mls/hr Q24H IV Last administ ered on 12/01/20at 08:52; Start 12/01/20 at 07:30; Stop 12/01/20 at 09:19; Status DC Nafcillin Sodium 2 gm/Dextrose 100 ml @ 200 mls/hr Q4HRS IV Last administered on 12/21/20at 04:11; Start 12/01/20 at 10:00; Stop 12/21/20 at 08:19; Status DC Carvedilol (Coreg) 6.25 mg DAILY PO ; Start 12/01/20 at 12:00; Stop 12/01/20 at 12:00; Status DC Furosemide (Lasix) 40 mg DAILY PO Last administered on 12/07/20at 08:28; Start 12/01/20 at 12:00; Stop 12/07/20 at 14:46; Status DC Potassium Chloride (Klor-Con) 20 meq DAILYWBKFT PO Last administered on 12/07/20at 08:28; Start 12/02/20 at 08:00; Stop 12/07/20 at 14:46; Status DC Potassium Chloride (Klor-Con) 20 meq 1X ONCE PO Last administered on 12/01/20at 12:12; Start 12/01/20 at 11:15; Stop 12/01/20 at 11:27; Status DC Carvedilol (Coreg) 3.125 mg BIDWMEALS PO Last administered on 12/03/20at 16:39; Start 12/01/20 at 12:00; Stop 12/05/20 at 20:11; Status DC Lidocaine HCl (Lidocaine 1% 20ml Vial) 10 ml 1X ONCE INJ ; Start 12/01/20 at 16:00; Stop 12/01/20 at 16:01; Status DC Ringer's Solution 1,000 ml @ 50 mls/hr Q20H IV Last administered on 12/05/20at 12:10; Start 12/05/20 at 07:00; Stop 12/05/20 at 18:59; Status DC Phytonadione (Vitamin K Ampule) 10 mg 1X ONCE SQ Last administered on 12/02/20at 11:09; Start 12/02/20 at 10:45; Stop 12/02/20 at 10:46; Status DC Sodium Chloride (Saline Mist Nasal) 1 hiro PRN Q1HR PRN NS NASAL CONGESTION Last administered on 12/20/20at 23:52; Start 12/02/20 at 20:45 Phytonadione (Vitamin K Ampule) 10 mg 1X ONCE SQ Last administered on 12/03/20at 11:17; Start 12/03/20 at 11:00; Stop 12/03/20 at 11:01; Status DC Docusate Sodium (Colace) 100 mg BID PO Last administered on 12/20/20at 08:52; Start 12/03/20 at 21:00; Stop 12/21/20 at 11:19; Status DC Polyethylene Glycol (miraLAX PACKET) 17 gm PRN DAILY PRN PO CONSTIPATION Last administered on 12/30/20at 07:24; Start 12/03/20 at 19:00 Fentanyl Citrate (Fentanyl 2ml Vial) 25 mcg PRN Q5MIN PRN IVP MILD PAIN 1-3; Start 12/04/20 at 09:30; Stop 12/05/20 at 09:29; Status DC Fentanyl Citrate (Fentanyl 2ml Vial) 50 mcg PRN Q5MIN PRN IVP MODERATE PAIN 4- 6; Start 12/04/20 at 09:30; Stop 12/05/20 at 09:29; Status DC Morphine Sulfate (Morphine Sulfate) 1 mg PRN Q10MIN PRN IVP SEVERE PAIN 7-10; Start 12/04/20 at 09:30; Stop 12/05/20 at 09:29; Status DC Ringer's Solution 1,000 ml @ 30 mls/hr Q24H IV ; Start 12/04/20 at 09:30; Stop 12/04/20 at 21:29; Status DC Hydromorphone HCl (Dilaudid) 0.5 mg PRN Q10MIN PRN IVP SEVERE PAIN 7-10, 2nd CHOICE; Start 12/04/20 at 09:30; Stop 12/05/20 at 09:29; Status DC Prochlorperazine Edisylate (Compazine) 5 mg PACU PRN PRN IVP NAUSEA, MRX1; Start 12/04/20 at 09:30; Stop 12/05/20 at 09:29; Status DC Propofol (Diprivan) 200 mg STK-MED ONCE IV ; Start 12/04/20 at 10:43; Stop 12/04/20 at 10:43; Status DC Lidocaine HCl (Lidocaine Pf 2% Vial) 5 ml STK-MED ONCE .ROUTE ; Start 12/04/20 at 10:43; Stop 12/04/20 at 10:43; Status DC Phenylephrine HCl (PHENYLEPHRINE in 0.9% NACL PF) 1 mg STK-MED ONCE IV ; Start 12/04/20 at 10:43; Stop 12/04/20 at 10:43; Status DC Sevoflurane (Ultane) 60 ml STK-MED ONCE IH ; Start 12/04/20 at 11:14; Stop 12/04/20 at 11:14; Status DC Dexamethasone Sodium Phosphate (Decadron) 4 mg STK-MED ONCE .ROUTE ; Start 12/04/20 at 11:26; Stop 12/04/20 at 11:26; Status DC Ondansetron HCl (Zofran) 4 mg STK-MED ONCE .ROUTE ; Start 12/04/20 at 11:26; Stop 12/04/20 at 11:26; Status DC Fentanyl Citrate (Fentanyl 2ml Vial) 100 mcg STK-MED ONCE .ROUTE ; Start 12/04/20 at 11:26; Stop 12/04/20 at 11:26; Status DC Daptomycin 500 mg/ Sodium Chloride 50 ml @ 100 mls/hr Q24H IV Last administered on 12/11/20at 10:46; Start 12/05/20 at 10:00; Stop 12/11/20 at 17:00; Status DC Propofol (Diprivan) 200 mg STK-MED ONCE IV ; Start 12/05/20 at 09:29; Stop 12/05/20 at 09:30; Status DC Lidocaine HCl (Viscous Lidocaine) 15 ml STK-MED ONCE .ROUTE ; Start 12/05/20 at 10:06; Stop 12/05/20 at 10:06; Status DC Lidocaine HCl (Xylocaine 2% Topical 30gm Tube) 30 hiro STK-MED ONCE TP ; Start 12/05/20 at 10:06; Stop 12/05/20 at 10:06; Status DC Benzocaine (Hurricaine One) 1 spray STK-MED ONCE .ROUTE ; Start 12/05/20 at 10:06; Stop 12/05/20 at 10:07; Status DC Acetaminophen/ Hydrocodone Bitart (Lortab 10/325) 1 tab PRN Q4HRS PRN PO MODERATE TO SEVERE PAIN Last administered on 12/24/20at 14:02; Start 12/05/20 at 20:00 Zolpidem Tartrate (Ambien) 5 mg PRN QHS PRN PO INSOMNIA Last administered on 12/23/20at 22:11; Start 12/05/20 at 20:00 Sodium Chloride 1,000 ml @ 1,000 mls/hr 1X ONCE IV Last administered on 12/06/20at 09:32; Start 12/06/20 at 09:15; Stop 12/06/20 at 10:14; Status DC Sodium Chloride 1,000 ml @ 100 mls/hr 1X ONCE IV Last administered on 12/06/20at 15:30; Start 12/06/20 at 13:15; Stop 12/06/20 at 23:14; Status DC Sodium Chloride 1,000 ml @ 100 mls/hr 1X ONCE IV Last administered on 12/07/20at 13:24; Start 12/07/20 at 11:45; Stop 12/08/20 at 10:55; Status DC Metoprolol Succinate (Toprol Xl) 25 mg DAILY PO Last administered on 12/24/20at 08:41; Start 12/09/20 at 09:00; Stop 12/25/20 at 10:43; Status DC Potassium Chloride (Klor-Con) 20 meq 1X ONCE PO Last administered on 12/10/20at 18:52; Start 12/10/20 at 19:00; Stop 12/10/20 at 19:01; Status DC Daptomycin 500 mg/ Sodium Chloride 50 ml @ 100 mls/hr Q48H IV Last administered on 12/25/20at 17:33; Start 12/13/20 at 10:00; Stop 12/26/20 at 11:55; Status DC Lidocaine HCl (Buffered Lidocaine 1%) 3 ml STK-MED ONCE .ROUTE ; Start 12/12/20 at 10:27; Stop 12/12/20 at 10:27; Status DC Sodium Chloride 1,000 ml @ 1,000 mls/hr Q1H PRN IV hypotension; Start 12/12/20 at 12:00; Stop 12/12/20 at 17:59; Status DC Albumin Human 200 ml @ 200 mls/hr 1X PRN PRN IV Hypotension; Start 12/12/20 at 12:00; Stop 12/12/20 at 17:59; Status DC Sodium Chloride (Normal Saline Flush) 10 ml 1X PRN PRN IV AP catheter pack; Start 12/12/20 at 12:00; Stop 12/13/20 at 11:59; Status DC Sodium Chloride (Normal Saline Flush) 10 ml 1X PRN PRN IV CALENDER RUNNER catheter pack; Start 12/12/20 at 12:00; Stop 12/13/20 at 11:59; Status DC Info (PHARMACY MONITORING -- do not chart) 1 each PRN DAILY PRN MC SEE COMMENTS; Start 12/12/20 at 12:00; Status UNV Info (PHARMACY MONITORING -- do not chart) 1 each PRN DAILY PRN MC SEE COMMENTS; Start 12/12/20 at 12:00; Status Cancel Lidocaine HCl (Buffered Lidocaine 1%) 4 ml 1X ONCE INJ Last administered on 12/12/20at 13:11; Start 12/12/20 at 13:15; Stop 12/12/20 at 13:18; Status DC Sodium Chloride 1,000 ml @ 1,000 mls/hr Q1H PRN IV hypotension; Start 12/13/20 at 09:30; Stop 12/13/20 at 15:29; Status DC Sodium Chloride 1,000 ml @ 400 mls/hr Q2H30M PRN IV PATENCY; Start 12/13/20 at 09:30; Stop 12/13/20 at 21:29; Status DC Info (PHARMACY MONITORING -- do not chart) 1 each PRN DAILY PRN MC SEE COMMENTS; Start 12/13/20 at 09:30; Status UNV Info (PHARMACY MONITORING -- do not chart) 1 each PRN DAILY PRN MC SEE COMMENTS; Start 12/13/20 at 09:30; Status UNV Epoetin Krishna-epbx (RETACRIT for ESRD PTS) 10,000 unit MoWeFr@2100 SQ Last administered on 12/30/20at 20:41; Start 12/14/20 at 21:00 Sodium Chloride 1,000 ml @ 1,000 mls/hr Q1H PRN IV hypotension; Start 12/15/20 at 07:00; Stop 12/15/20 at 12:59; Status DC Sodium Chloride 1,000 ml @ 400 mls/hr Q2H30M PRN IV PATENCY; Start 12/15/20 at 07:00; Stop 12/15/20 at 18:59; Status DC Info (PHARMACY MONITORING -- do not chart) 1 each PRN DAILY PRN MC SEE COMMENTS; Start 12/15/20 at 07:00; Stop 12/15/20 at 07:00; Status DC Info (PHARMACY MONITORING -- do not chart) 1 each PRN DAILY PRN MC SEE COMMENTS; Start 12/15/20 at 07:00; Stop 12/15/20 at 07:00; Status DC Sodium Chloride 1,000 ml @ 1,000 mls/hr Q1H PRN IV hypotension; Start 12/17/20 at 10:30; Stop 12/17/20 at 16:29; Status DC Albumin Human 200 ml @ 200 mls/hr 1X PRN PRN IV Hypotension Last administered on 12/17/20at 11:15; Start 12/17/20 at 10:30; Stop 12/17/20 at 16:29; Status DC Sodium Chloride 1,000 ml @ 400 mls/hr Q2H30M PRN IV PATENCY; Start 12/17/20 at 10:30; Stop 12/17/20 at 22:29; Status DC Info (PHARMACY MONITORING -- do not chart) 1 each PRN DAILY PRN MC SEE COMMENTS; Start 12/17/20 at 11:15; Stop 12/19/20 at 13:24; Status DC Info (PHARMACY MONITORING -- do not chart) 1 each PRN DAILY PRN MC SEE COMMENTS; Start 12/17/20 at 11:15; Status UNV Docusate Sodium (Colace) 100 mg PRN BID PRN PO HARD STOOLS Last administered on 12/30/20at 07:24; Start 12/17/20 at 17:45 Sodium Chloride 1,000 ml @ 30 mls/hr Q24H IV Last administered on 12/21/20at 20:34; Start 12/18/20 at 18:45; Stop 12/27/20 at 13:08; Status DC Sodium Chloride 1,000 ml @ 1,000 mls/hr Q1H PRN IV hypotension; Start 12/19/20 at 08:30; Stop 12/19/20 at 14:29; Status DC Albumin Human 100 ml @ 100 mls/hr 1X PRN PRN IV Hypotension; Start 12/19/20 at 08:30; Stop 12/19/20 at 14:29; Status DC Sodium Chloride 1,000 ml @ 400 mls/hr Q2H30M PRN IV PATENCY; Start 12/19/20 at 08:30; Stop 12/19/20 at 20:29; Status DC Info (PHARMACY MONITORING -- do not chart) 1 each PRN DAILY PRN MC SEE COMMENTS; Start 12/19/20 at 08:30; Stop 12/19/20 at 13:24; Status DC Info (PHARMACY MONITORING -- do not chart) 1 each PRN DAILY PRN MC SEE COMMENTS; Start 12/19/20 at 08:30; Stop 12/21/20 at 07:55; Status DC Atorvastatin Calcium (Lipitor) 40 mg QHS PO Last administered on 01/01/21at 20:57; Start 12/19/20 at 21:00 Pantoprazole Sodium (Protonix) 40 mg DAILYAC PO Last administered on 12/24/20at 06:15; Start 12/20/20 at 09:15; Stop 12/26/20 at 10:17; Status DC Sodium Chloride 1,000 ml @ 1,000 mls/hr Q1H PRN IV hypotension; Start 12/21/20 at 08:00; Stop 12/21/20 at 13:59; Status DC Sodium Chloride 1,000 ml @ 400 mls/hr Q2H30M PRN IV PATENCY; Start 12/21/20 at 08:00; Stop 12/21/20 at 19:59; Status DC Info (PHARMACY MONITORING -- do not chart) 1 each PRN DAILY PRN MC SEE COMMENTS ; Start 12/21/20 at 08:00; Stop 12/21/20 at 07:54; Status DC Info (PHARMACY MONITORING -- do not chart) 1 each PRN DAILY PRN MC SEE COMMENTS; Start 12/21/20 at 08:00; Status Cancel Cefepime HCl (Maxipime) 1 gm Q24H IVP Last administered on 12/25/20at 12:32; Start 12/22/20 at 11:00; Stop 12/26/20 at 11:56; Status DC Furosemide (Lasix) 40 mg 1X ONCE IVP Last administered on 12/22/20at 11:17; Start 12/22/20 at 11:15; Stop 12/22/20 at 11:16; Status DC Sodium Chloride 1,000 ml @ 1,000 mls/hr Q1H PRN IV hypotension; Start 12/23/20 at 10:15; Stop 12/23/20 at 16:14; Status DC Albumin Human 200 ml @ 200 mls/hr 1X PRN PRN IV Hypotension; Start 12/23/20 at 10:15; Stop 12/23/20 at 16:14; Status DC Sodium Chloride (Normal Saline Flush) 10 ml 1X PRN PRN IV AP catheter pack; Start 12/23/20 at 10:15; Stop 12/24/20 at 10:14; Status DC Sodium Chloride (Normal Saline Flush) 10 ml 1X PRN PRN IV CALENDER RUNNER catheter pack; Start 12/23/20 at 10:15; Stop 12/24/20 at 10:14; Status DC Sodium Chloride 1,000 ml @ 400 mls/hr Q2H30M PRN IV PATENCY; Start 12/23/20 at 10:15; Stop 12/23/20 at 22:14; Status DC Info (PHARMACY MONITORING -- do not chart) 1 each PRN DAILY PRN MC SEE COMMENTS; Start 12/23/20 at 10:15; Status UNV Info (PHARMACY MONITORING -- do not chart) 1 each PRN DAILY PRN MC SEE COMMENTS; Start 12/23/20 at 10:15; Status Cancel Aspirin (Ecotrin) 81 mg DAILYWBKFT PO Last administered on 12/24/20at 08:40; Start 12/23/20 at 13:00; Stop 12/27/20 at 10:33; Status DC Cefazolin Sodium/ Dextrose 50 ml @ 100 mls/hr 1X PREOP PRN IV PRIOR TO PROCEDURE Last administered on 12/23/20at 14:46; Start 12/23/20 at 14:00; Stop 12/24/20 at 13:59; Status DC Midazolam HCl (Versed) 2 mg 1X ONCE IV Last administered on 12/23/20at 14:00; Start 12/23/20 at 14:00; Stop 12/23/20 at 14:06; Status DC Fentanyl Citrate (Fentanyl 2ml Vial) 100 mcg 1X ONCE IV Last administered on 12/23/20at 14:00; Start 12/23/20 at 14:00; Stop 12/23/20 at 14:06; Status DC Cefazolin Sodium/ Dextrose 50 ml @ As Directed STK-MED ONCE IV ; Start 12/23/20 at 13:57; Stop 12/23/20 at 13:58; Status DC Lidocaine/ Epinephrine (LIDOCAINE 1%-EPI 1:100,000 Multi-Dose) 20 ml STK-MED ONCE .ROUTE ; Start 12/23/20 at 13:58; Stop 12/23/20 at 13:58; Status DC Lidocaine/ Epinephrine (LIDOCAINE 1%-EPI 1:100,000 Multi-Dose) 20 ml 1X ONCE INJ Last administered on 12/23/20at 14:15; Start 12/23/20 at 14:15; Stop 12/23/20 at 14:16; Status DC Linezolid (Zyvox) 600 mg BID PO Last administered on 12/24/20at 22:38; Start 12/24/20 at 11:00; Stop 12/25/20 at 10:48; Status DC Magnesium Sulfate 50 ml @ 25 mls/hr PRN DAILY PRN IV for Mag < 1.7 on am labs; Start 12/25/20 at 09:15 Dextrose (Dextrose 50%-Water Syringe) 25 gm STK-MED ONCE IV ; Start 12/25/20 at 22:23; Stop 12/25/20 at 22:23; Status DC Furosemide (Lasix) 40 mg 1X ONCE IVP Last administered on 12/25/20at 23:16; Start 12/25/20 at 23:00; Stop 12/25/20 at 23:05; Status DC Sodium Chloride 1,000 ml @ 1,000 mls/hr Q1H PRN IV hypotension; Start 12/26/20 at 08:45; Stop 12/26/20 at 14:44; Status DC Albumin Human 200 ml @ 200 mls/hr 1X ONCE IV Last administered on 12/27/20at 08:58; Start 12/26/20 at 08:45; Stop 12/26/20 at 09:44; Status DC Sodium Chloride 1,000 ml @ 400 mls/hr Q2H30M PRN IV PATENCY; Start 12/26/20 at 08:45; Stop 12/26/20 at 20:44; Status DC Info (PHARMACY MONITORING -- do not chart) 1 each PRN DAILY PRN MC SEE COMMENTS; Start 12/26/20 at 08:45; Status Cancel Pantoprazole Sodium (PROTONIX VIAL for IV PUSH) 40 mg DAILYAC IVP Last administered on 01/02/21at 08:23; Start 12/27/20 at 07:30 Dextrose (Dextrose 50%-Water Syringe) 25 gm STK-MED ONCE IV ; Start 12/26/20 at 10:54; Stop 12/26/20 at 10:55; Status DC Cefazolin Sodium (Ancef) 1 gm Q24H IVP Last administered on 12/26/20at 15:29; Start 12/26/20 at 16:00; Stop 12/27/20 at 10:37; Status DC Dextrose (Dextrose 50%-Water Syringe) 25 gm STK-MED ONCE IV ; Start 12/25/20 at 22:30; Stop 12/26/20 at 14:10; Status DC Norepinephrine Bitartrate 8 mg/ Dextrose 258 ml @ 18.286 mls/ hr CONT PRN IV PER PROTOCOL Last administered on 12/29/20at 05:57; Start 12/26/20 at 19:15; Stop 12/29/20 at 10:50; Status DC Fentanyl Citrate 30 ml @ 0 mls/hr CONT PRN IV SEE PROTOCOL Last administered on 12/30/20at 02:16; Start 12/26/20 at 19:15 Midazolam HCl 100 ml @ 0 mls/hr CONT PRN IV SEE PROTOCOL Last administered on 12/28/20at 22:31; Start 12/26/20 at 19:15 Vecuronium [place] (Norcuron Bolus) 6 mg PRN 1X PRN IV VENT INDUCTION; Start 12/26/20 at 19:15; Stop 12/27/20 at 19:14; Status DC Glycerin/ Hypromellose/ Polyethylene (Artificial Tears) 1 drop PRN Q1HR PRN OU DRY EYE; Start 12/26/20 at 19:15 Dexmedetomidine HCl 400 mcg/ Sodium Chloride 100 ml @ 4.725 mls/ hr CONT PRN IV PER PROTOCOL; Start 12/26/20 at 19:15 Midazolam HCl (Versed) 5 mg PRN 1X PRN IVP VENT INDUCTION; Start 12/26/20 at 19:15; Stop 12/27/20 at 19:14; Status DC Sodium Chloride 500 ml @ 500 mls/hr 1X PRN PRN IV SEE COMMENTS; Start 12/26/20 at 19:15 Atropine Sulfate (ATROPINE 0.5mg SYRINGE) 0.5 mg PRN Q5MIN PRN IV SEE COMMENTS; Start 12/26/20 at 19:15 Famotidine (Pepcid Vial) 20 mg BID IVP Last administered on 12/27/20at 09:00; Start 12/26/20 at 21:00; Stop 12/27/20 at 10:19; Status DC Ringer's Solution 1,000 ml @ 100 mls/hr Q10H IV Last administered on 12/28/20at 04:37; Start 12/26/20 at 19:30; Stop 12/29/20 at 10:28; Status DC Etomidate (Amidate) 20 mg STK-MED ONCE IV ; Start 12/26/20 at 19:19; Stop 12/26/20 at 19:19; Status DC Succinylcholine Chloride (Anectine) 200 mg 1X ONCE IV Last administered on 12/26/20at 19:38; Start 12/26/20 at 21:15; Stop 12/26/20 at 21:16; Status DC Etomidate (Amidate) 20 mg 1X ONCE IV Last administered on 12/26/20at 19:38; Start 12/26/20 at 21:15; Stop 12/26/20 at 21:16; Status DC Dextrose (Dextrose 50%-Water Syringe) 12.5 gm PRN Q15MIN PRN IV SEE COMMENTS Last administered on 12/30/20at 01:07; Start 12/27/20 at 07:30 Sodium Chloride 1,000 ml @ 1,000 mls/hr Q1H PRN IV hypotension; Start 12/27/20 at 08:15; Stop 12/27/20 at 14:14; Status DC Albumin Human 200 ml @ 200 mls/hr 1X PRN PRN IV Hypotension; Start 12/27/20 at 08:15; Stop 12/27/20 at 14:14; Status DC Sodium Chloride 1,000 ml @ 400 mls/hr Q2H30M PRN IV PATENCY; Start 12/27/20 at 08:15; Stop 12/27/20 at 20:14; Status DC Info (PHARMACY MONITORING -- do not chart) 1 each PRN DAILY PRN MC SEE COMMENTS; Start 12/27/20 at 08:15; Stop 12/28/20 at 09:54; Status DC Dextrose (Dextrose 50%-Water Syringe) 25 gm STK-MED ONCE IV ; Start 12/26/20 at 11:00; Stop 12/27/20 at 08:58; Status DC Phytonadione (Vitamin K Ampule) 10 mg 1X ONCE SQ Last administered on 12/27/20at 11:08; Start 12/27/20 at 09:45; Stop 12/27/20 at 09:49; Status DC Daptomycin 510 mg/ Sodium Chloride 50 ml @ 100 mls/hr QODAY IV Last administered on 12/31/20at 09:33; Start 12/27/20 at 12:00 Meropenem 500 mg/ Sodium Chloride 50 ml @ 100 mls/hr DAILY IV Last administered on 12/31/20at 08:05; Start 12/27/20 at 11:00; Stop 12/31/20 at 16:05; Status DC Linezolid (Zyvox) 600 mg BID PO Last administered on 12/27/20at 21:48; Start 12/27/20 at 12:00; Stop 12/28/20 at 08:25; Status DC Aspirin (Aspirin Chewable) 81 mg [id number] PO Last administered on 12/28/20at 10:10; Start 12/27/20 at 12:00; Stop 12/28/20 at 11:44; Status DC Aspirin (Aspirin Chewable) 81 mg 1X ONCE PO ; Start 12/27/20 at 10:45; Stop 12/27/20 at 10:46; Status UNV Fentanyl Citrate 55 ml @ 0 mls/hr CONT PRN IV PAIN; Start 12/27/20 at 12:45; Status Cancel Sodium Chloride 1,000 ml @ 1,000 mls/hr Q1H PRN IV hypotension; Start 12/28/20 at 07:15; Stop 12/28/20 at 13:14; Status DC Albumin Human 200 ml @ 200 mls/hr 1X ONCE IV Last administered on 12/28/20at 08:22; Start 12/28/20 at 07:45; Stop 12/28/20 at 08:44; Status DC Sodium Chloride 1,000 ml @ 400 mls/hr Q2H30M PRN IV PATENCY; Start 12/28/20 at 07:15; Stop 12/28/20 at 19:14; Status DC Info (PHARMACY MONITORING -- do not chart) 1 each PRN DAILY PRN MC SEE COMMENT S; Start 12/28/20 at 07:15; Status Cancel Phytonadione (Vitamin K Ampule) 10 mg 1X ONCE SQ Last administered on 12/28/20at 10:10; Start 12/28/20 at 08:15; Stop 12/28/20 at 08:16; Status DC Potassium Phosphate 15 mmol/ Sodium Chloride 105 ml @ 52.5 mls/hr 1X ONCE IV Last administered on 12/28/20at 13:32; Start 12/28/20 at 14:00; Stop 12/28/20 at 15:59; Status DC Magnesium Sulfate 50 ml @ 25 mls/hr 1X ONCE IV Last administered on 12/28/20at 13:33; Start 12/28/20 at 12:45; Stop 12/28/20 at 14:44; Status DC Sodium Phosphate 40 mmol/Sodium Chloride 263.3333 ml @ 62.5 mls/hr 1X ONCE IV Last administered on 12/29/20at 09:51; Start 12/29/20 at 10:00; Stop 12/29/20 at 14:12; Status DC Norepinephrine Bitartrate 32 mg/ Dextrose 250 ml @ 4.603 mls/ hr CONT PRN IV SEE I/O RECORD Last administered on 01/02/21at 03:27; Start 12/29/20 at 11:00 Phytonadione (Vitamin K Ampule) 10 mg 1X ONCE SQ Last administered on 12/29/20at 11:40; Start 12/29/20 at 11:00; Stop 12/29/20 at 11:05; Status DC Sodium Chloride 1,000 ml @ 1,000 mls/hr Q1H PRN IV hypotension; Start 12/29/20 at 14:30; Stop 12/29/20 at 20:29; Status DC Sodium Chloride 1,000 ml @ 400 mls/hr Q2H30M PRN IV PATENCY; Start 12/29/20 at 14:30; Stop 12/30/20 at 02:29; Status DC Info (PHARMACY MONITORING -- do not chart) 1 each PRN DAILY PRN MC SEE COMMENTS; Start 12/29/20 at 14:30; Status Cancel Sodium Chloride 1,000 ml @ 1,000 mls/hr Q1H PRN IV hypotension; Start 12/30/20 at 07:00; Stop 12/30/20 at 12:59; Status DC Albumin Human 200 ml @ 200 mls/hr 1X ONCE IV Last administered on 12/30/20at 07:50; Start 12/30/20 at 07:00; Stop 12/30/20 at 07:59; Status DC Sodium Chloride 1,000 ml @ 400 mls/hr Q2H30M PRN IV PATENCY; Start 12/30/20 at 07:00; Stop 12/30/20 at 18:59; Status DC Info (PHARMACY MONITORING -- do not chart) 1 each PRN DAILY PRN MC SEE COMMENTS; Start 12/30/20 at 07:00 Dextrose 1,000 ml @ 30 mls/hr Q24H IV Last administered on 01/02/21at 04:16; Start 12/30/20 at 21:45 Magnesium Sulfate 50 ml @ 25 mls/hr 1X ONCE IV Last administered on 12/31/20at 23:39; Start 12/31/20 at 23:45; Stop 01/01/21 at 01:44; Status DC Active Scripts Active Nafcillin 2 Gm/ 100 Ml Inj (Nafcillin In Dextrose,Iso-Osm) 2 Gm/100 Ml Froz.piggy 2 Gm IV Q4HRS 30 Days Reported Acetaminophen 325 Mg Tablet 650 Mg PO QHS Aspirin 81 Mg Tab.chew 1 Tab PO DAILY Men's Multivitamin Tablet (Multivit-Min/Folic/Vit K/Lycop) 1 Each Tablet 1 Each PO DAILY Pravastatin Sodium 80 Mg Tablet 1 Tab PO DAILY Lasix (Furosemide) 40 Mg Tablet 1 Tab PO DAILY Colace (Docusate Sodium) 100 Mg Capsule 1 Cap PO PRN BID PRN Vitals/I & O Vital Sign - Last 24 Hours 01/01/21 01/01/21 01/01/21 01/01/21 09:00 10:00 11:00 11:41 Pulse 62 61 61 Resp 16 16 16 B/P (MAP) 103/57 111/57 110/54 Pulse Ox 100 100 100 100 O2 Delivery Ventilator Ventilator Ventilator Ventilator 01/01/21 01/01/21 01/01/21 01/01/21 12:00 12:00 13:00 13:49 Temp 98.9 98.9 Pulse 63 65 Resp 16 16 B/P (MAP) 105/52 110/52 Pulse Ox 99 100 100 O2 Delivery Ventilator Mechanical Ventilator Ventilator Ventilator 01/01/21 01/01/21 01/01/21 01/01/21 14:00 15:00 15:27 16:00 Temp 99.4 99.4 Pulse 60 66 63 Resp 16 16 16 B/P (MAP) 114/51 106/53 114/74 Pulse Ox 100 100 100 100 O2 Delivery Ventilator Ventilator Ventilator Ventilator 01/01/21 01/01/21 01/01/21 01/01/21 16:00 16:23 17:00 18:08 Pulse 65 65 Resp 16 16 B/P (MAP) 115/54 104/45 Pulse Ox 100 99 100 O2 Delivery Mechanical Ventilator Ventilator Ventilator Ventilator 01/01/21 01/01/21 01/01/21 01/01/21 19:00 19:00 20:00 20:00 Temp 98.7 98.7 Pulse 64 60 Resp 16 16 B/P (MAP) 105/47 105/48 Pulse Ox 100 100 100 O2 Delivery Ventilator Ventilator Mechanical Ventilator Ventilator 01/01/21 01/01/21 01/01/21 01/01/21 20:54 21:00 22:00 23:00 Pulse 60 64 64 Resp 16 16 16 B/P (MAP) 102/49 105/56 101/53 Pulse Ox 100 100 100 100 O2 Delivery Ventilator Ventilator Ventilator Ventilator 01/01/21 01/02/21 01/02/21 01/02/21 23:30 00:00 00:01 00:58 Temp 98.5 98.5 Pulse 62 Resp 16 B/P (MAP) 106/54 Pulse Ox 100 100 100 O2 Delivery Ventilator Mechanical Ventilator Ventilator Ventilator 01/02/21 01/02/21 01/02/21 01/02/21 01:00 02:00 03:00 03:00 Pulse 62 62 60 Resp 16 16 16 B/P (MAP) 116/66 103/48 110/49 Pulse Ox 100 100 100 100 O2 Delivery Ventilator Ventilator Ventilator Ventilator 01/02/21 01/02/21 01/02/21 01/02/21 04:00 04:00 05:00 05:25 Temp 97.8 97.8 Pulse 62 62 Resp 16 16 B/P (MAP) 114/51 99/52 Pulse Ox 100 100 100 O2 Delivery Ventilator Mechanical Ventilator Ventilator Ventilator 01/02/21 01/02/21 01/02/21 01/02/21 06:00 07:00 07:09 08:00 Temp 98.0 98.0 Pulse 64 64 64 Resp 16 16 19 B/P (MAP) 99/51 116/56 111/52 Pulse Ox 100 100 100 100 O2 Delivery Ventilator Ventilator Ventilator Ventilator 01/02/21 08:30 B/P (MAP) 102/52 Intake and Output 01/01/21 01/01/21 01/02/21 15:00 23:00 07:00 Intake Total 323 ml 560.32 ml 783 ml Output Total 0 ml 0 ml 0 ml Balance 323 ml 560.32 ml 783 ml Justicifation of Admission Dx: Justifications for Admission: Justification of Admission Dx: N/A JUDI CORNEJO MD Jan 02, 2021 08:51
[2021-01-02] MEDS: DAPTOmycin (GENERIC) IVPB 510 MG in IV NORMAL SALINE 50ML 50 ML IV SCH (08:58)
[2021-01-02] MEDS ORDERED: DIALYSIS PATIENT. MC PRN (09:15)
[2021-01-02] MEDS ORDERED: ALBUMIN HUMAN 25% 200 ML IV PRN (09:15)
[2021-01-02] MEDS: POLYVINYL ALCOHOL 1.4% OPHTH SOLUTION 15ML BOTTLE. OU PRN ×2 (09:37→21:42)
[2021-01-02] MEDS: NYSTATIN TOPICAL POWDER 15GM BOTTLE. TP SCH ×2 (09:37→21:42)
--- NOTE | 2021-01-02 10:08 | PDOC ---
Renal-Progress Notes Subjective Notes Notes NONE History of Present Illness Hx of present illness CRITICALLY ILL Vitals Vitals Vital Signs Date Time Temp Pulse Resp B/P (MAP) Pulse Ox O2 Delivery O2 Flow Rate FiO2 01/02/21 10:00 71 21 92/44 100 Ventilator 01/02/21 09:06 40.0 01/02/21 08:00 98.0 98.0 Weight Weight [ ] I.O. Intake and Output Intake and Output 01/02/21 07:00 Intake Total 1666.32 ml Output Total 0 ml Balance 1666.32 ml IV Total 970.32 ml Tube Feeding 696 ml Output Urine Total 0 ml Labs Labs Laboratory Tests Test 01/01/21 12:14 01/01/21 17:44 01/02/21 01:45 01/02/21 06:45 Glucose (Fingerstick) 84 mg/dL (70-99) 85 mg/dL (70-99) 88 mg/dL (70-99) White Blood Count 15.7 x10^3/uL (4.0-11.0) Red Blood Count 2.75 x10^6/uL (4.30-5.70) Hemoglobin 8.2 g/dL (13.0-17.5) Hematocrit 25.5 % (39.0-53.0) Mean Corpuscular Volume 93 fL (79-100) Mean Corpuscular Hemoglobin 30 pg (25-35) Mean Corpuscular Hemoglobin Concent 32 g/dL (31-37) Red Cell Distribution Width 27.7 % (11.5-14.5) Platelet Count 68 x10^3/uL (140-400) Sodium Level 129 mmol/L (136-145) Potassium Level 4.4 mmol/L (3.5-5.1) Chloride Level 93 mmol/L (98-107) Carbon Dioxide Level 27 mmol/L (21-32) Anion Gap 9 (6-14) Blood Urea Nitrogen 59 mg/dL (8-26) Creatinine 5.3 mg/dL (0.7-1.3) Estimated GFR (Cockcroft-Gault) 10.4 Glucose Level 95 mg/dL (70-99) Calcium Level 6.9 mg/dL (8.5-10.1) Total Bilirubin 14.3 mg/dL (0.2-1.0) Direct Bilirubin 10.4 mg/dL (0.0-0.2) Aspartate Amino Transf (AST/SGOT) 161 U/L (15-37) Alanine Aminotransferase (ALT/SGPT) 28 U/L (16-63) Alkaline Phosphatase 190 U/L (46-116) Total Protein 6.3 g/dL (6.4-8.2) Albumin 1.9 g/dL (3.4-5.0) Test 01/02/21 06:46 01/02/21 07:10 Glucose (Fingerstick) 77 mg/dL (70-99) O2 Saturation 96 % (92-99) Arterial Blood pH 7.34 (7.35-7.45) Arterial Blood pCO2 at Patient Temp 48 mmHg (35-46) Arterial Blood pO2 at Patient Temp 84 mmHg (65-108) Arterial Blood HCO3 25 mmol/L (21-28) Arterial Blood Base Excess -1 mmol/L (-3-3) FiO2 50 Micro Micro Microbiology 12/27/20 Blood Culture - Final, Complete NO GROWTH AFTER 5 DAYS 12/22/20 Gram Stain Evaluation - Final, Complete 12/22/20 Respiratory Culture - Final, Complete 12/07/20 Urine Culture - Final, Complete 12/04/20 Gram Stain - Final, Complete 12/04/20 Aerobic and Anaerobic Culture - Final, Complete Review of Systems Constitutional: yes: unresponsive Ears/Nose/Throat: Yes: no symptom reported Eyes: Yes: no symptom reported Pulmonary: Yes no symptom reported Gastrointestional: Yes: no symptom reported Genitourinary: Yes: no symptom reported Musculoskeletal: Yes: no symptom reported Skin: Yes no symptom reported Psychiatric/Neurological: Yes: no symptom reported Endocrine: Yes: no symptom reported Physical Exam General Appearance: mild distress Skin: warm Respiratory: ventilator (Mode:A/C), decreased breath sounds Heart: S1S2 Abdomen: soft, bowel sounds present Genitourinary: bladder flat Extremities: no edema, edema Neurology: other (sedated ) Assessment Assessment IMP HYPOTENSION GUERO DUE TO ABOVE-ATN SEPSIS RIGHT KNEE EFFUSION LIVER FAILURE SSS WITH PPM-RECENT BATTERY EXCHANGE CHRONIC AFIB ANTICOAGULATION ANEMIA ACUTE RESP FAILURE HYPOXIA PLAN NO SIGNS OF RENAL IMPROVEMENT HD TODAY UF TOLERATED CONT EPOGEN PULM EVALUATION ANTIBIOTICS PRESSORS NEEDED D/W PULM VENT SUPPORT POOR PROGNOSIS WILL FOLLOW ALFREDO EASTON MD Jan 02, 2021 10:08
--- NOTE | 2021-01-02 10:34 | PDOC ---
PROGRESS NOTES Date of Service: DATE: 01/02/21 TIME: 10:34 Subjective Subjective Intubated and sedated, needing pressor support Objective Objective Vital Signs Date Time Temp Pulse Resp B/P (MAP) Pulse Ox O2 Delivery O2 Flow Rate FiO2 01/02/21 10:00 71 21 92/44 100 Ventilator 01/02/21 09:06 40.0 01/02/21 08:00 98.0 98.0 Intake and Output 01/02/21 07:00 Intake Total 1666.32 ml Output Total 0 ml Balance 1666.32 ml IV Total 970.32 ml Tube Feeding 696 ml Output Urine Total 0 ml Physical Exam Abdomen: Normal bowel sounds, Soft Heart: Regular rate Extremities: No clubbing, Other (1-2+ pitting edema) General: Other (Intubated and sedated) HEENT: Atraumatic Lungs: Other (Mildly decreased breath sounds) Neuro: Other (Unable to assess) Skin: No rashes Assessment Assessment 1. Weakness, mechanical fall with right knee effusion: s/p I & D 2. Sepsis, MSSA bacteremia: no intracardiac vegetation per SOO. 3. SSS, s/p PPM. generator change (light) 11/01/2020. normal function 4. CAD: clinically stable 5. Permanent AFIB: rate controlled with intermittent v-pacing. 6. Coagulopathy due to warfarin; OAC held 7. Chronic diastolic CHF; echo with normal EF and WM 8. GUERO; on hemodialysis 9. HTN: Presently hypotensive needing pressor support 10. HLP: on statin 11. Anemia; s/p transfusion. Mild hemoptysis persists 12. Multisystem organ failure Recommendations Poor candidate for OAC given anemia, fall risk Metoprolol for rate control Fluid offloading via HD Ongoing treatment of sepsis/bacteremia per ID team Supportive care, pressor support Poor prognosis. Patient is DNR. Plan Plan of Care Problems Medical Problems: (1) Hypokalemia Status: Acute (2) Person under investigation for COVID-19 Status: Acute (3) Pneumonia Status: Acute (4) Sepsis Status: Acute Comment Review of Relevant I have reviewed the following items mel (where applicable) has been applied. Labs Laboratory Tests Test 01/01/21 12:14 01/01/21 17:44 01/02/21 01:45 01/02/21 06:45 Glucose (Fingerstick) 84 mg/dL (70-99) 85 mg/dL (70-99) 88 mg/dL (70-99) White Blood Count 15.7 x10^3/uL (4.0-11.0) Red Blood Count 2.75 x10^6/uL (4.30-5.70) Hemoglobin 8.2 g/dL (13.0-17.5) Hematocrit 25.5 % (39.0-53.0) Mean Corpuscular Volume 93 fL (79-100) Mean Corpuscular Hemoglobin 30 pg (25-35) Mean Corpuscular Hemoglobin Concent 32 g/dL (31-37) Red Cell Distribution Width 27.7 % (11.5-14.5) Platelet Count 68 x10^3/uL (140-400) Sodium Level 129 mmol/L (136-145) Potassium Level 4.4 mmol/L (3.5-5.1) Chloride Level 93 mmol/L (98-107) Carbon Dioxide Level 27 mmol/L (21-32) Anion Gap 9 (6-14) Blood Urea Nitrogen 59 mg/dL (8-26) Creatinine 5.3 mg/dL (0.7-1.3) Estimated GFR (Cockcroft-Gault) 10.4 Glucose Level 95 mg/dL (70-99) Calcium Level 6.9 mg/dL (8.5-10.1) Total Bilirubin 14.3 mg/dL (0.2-1.0) Direct Bilirubin 10.4 mg/dL (0.0-0.2) Aspartate Amino Transf (AST/SGOT) 161 U/L (15-37) Alanine Aminotransferase (ALT/SGPT) 28 U/L (16-63) Alkaline Phosphatase 190 U/L (46-116) Total Protein 6.3 g/dL (6.4-8.2) Albumin 1.9 g/dL (3.4-5.0) Test 01/02/21 06:46 01/02/21 07:10 Glucose (Fingerstick) 77 mg/dL (70-99) O2 Saturation 96 % (92-99) Arterial Blood pH 7.34 (7.35-7.45) Arterial Blood pCO2 at Patient Temp 48 mmHg (35-46) Arterial Blood pO2 at Patient Temp 84 mmHg (65-108) Arterial Blood HCO3 25 mmol/L (21-28) Arterial Blood Base Excess -1 mmol/L (-3-3) FiO2 50 Microbiology 12/27/20 Blood Culture - Final, Complete NO GROWTH AFTER 5 DAYS 12/22/20 Gram Stain Evaluation - Final, Complete 12/22/20 Respiratory Culture - Final, Complete 12/07/20 Urine Culture - Final, Complete 12/04/20 Gram Stain - Final, Complete 12/04/20 Aerobic and Anaerobic Culture - Final, Complete Medications Current Medications Albumin Human 200 ml @ 200 mls/hr 1X PRN PRN IV Hypotension Last administered on 01/02/21at 09:43; Start 01/02/21 at 09:15; Stop 01/02/21 at 15:14 Info (PHARMACY MONITORING -- do not chart) 1 each PRN DAILY PRN MC SEE COMMENTS; Start 01/02/21 at 09:15 Nystatin (Nystop) 1 hiro BID TP Last administered on 01/02/21at 09:37; Start 01/02/21 at 09:15 Vitals/I & O Vital Sign - Last 24 Hours 01/01/21 01/01/21 01/01/21 01/01/21 11:00 11:41 12:00 12:00 Temp 98.9 98.9 Pulse 61 63 Resp 16 16 B/P (MAP) 110/54 105/52 Pulse Ox 100 100 99 O2 Delivery Ventilator Ventilator Ventilator Mechanical Ventilator 01/01/21 01/01/21 01/01/21 01/01/21 13:00 13:49 14:00 15:00 Pulse 65 60 66 Resp 16 16 16 B/P (MAP) 110/52 114/51 106/53 Pulse Ox 100 100 100 100 O2 Delivery Ventilator Ventilator Ventilator Ventilator 01/01/21 01/01/21 01/01/21 01/01/21 15:27 16:00 16:00 16:23 Temp 99.4 99.4 Pulse 63 Resp 16 B/P (MAP) 114/74 Pulse Ox 100 100 100 O2 Delivery Ventilator Ventilator Mechanical Ventilator Ventilator 01/01/21 01/01/21 01/01/21 01/01/21 17:00 18:08 19:00 19:00 Pulse 65 65 64 Resp 16 16 16 B/P (MAP) 115/54 104/45 105/47 Pulse Ox 99 100 100 100 O2 Delivery Ventilator Ventilator Ventilator Ventilator 01/01/21 01/01/21 01/01/21 01/01/21 20:00 20:00 20:54 21:00 Temp 98.7 98.7 Pulse 60 60 Resp 16 16 B/P (MAP) 105/48 102/49 Pulse Ox 100 100 100 O2 Delivery Mechanical Ventilator Ventilator Ventilator Ventilator 01/01/21 01/01/21 01/01/21 01/02/21 22:00 23:00 23:30 00:00 Pulse 64 64 Resp 16 16 B/P (MAP) 105/56 101/53 Pulse Ox 100 100 100 O2 Delivery Ventilator Ventilator Ventilator Mechanical Ventilator 01/02/21 01/02/21 01/02/21 01/02/21 00:01 00:58 01:00 02:00 Temp 98.5 98.5 Pulse 62 62 62 Resp 16 16 16 B/P (MAP) 106/54 116/66 103/48 Pulse Ox 100 100 100 100 O2 Delivery Ventilator Ventilator Ventilator Ventilator 01/02/21 01/02/21 01/02/21 01/02/21 03:00 03:00 04:00 04:00 Temp 97.8 97.8 Pulse 60 62 Resp 16 16 B/P (MAP) 110/49 114/51 Pulse Ox 100 100 100 O2 Delivery Ventilator Ventilator Ventilator Mechanical Ventilator 01/02/21 01/02/21 01/02/21 01/02/21 05:00 05:25 06:00 07:00 Pulse 62 64 64 Resp 16 16 16 B/P (MAP) 99/52 99/51 116/56 Pulse Ox 100 100 100 100 O2 Delivery Ventilator Ventilator Ventilator Ventilator 01/02/21 01/02/21 01/02/21 01/02/21 07:09 08:00 08:00 08:30 Temp 98.0 98.0 Pulse 64 Resp 19 B/P (MAP) 111/52 102/52 Pulse Ox 100 100 O2 Delivery Ventilator Mechanical Ventilator Ventilator 01/02/21 01/02/21 01/02/21 01/02/21 08:45 09:00 09:00 09:06 Pulse 65 Resp 21 B/P (MAP) 100/73 76/44 Pulse Ox 100 100 96 O2 Delivery Ventilator Ventilator VAPOTHERM O2 Flow Rate 40.0 01/02/21 01/02/21 09:10 10:00 Pulse 71 Resp 21 B/P (MAP) 76/43 92/44 Pulse Ox 100 O2 Delivery Ventilator Intake and Output 01/01/21 01/01/21 01/02/21 15:00 23:00 07:00 Intake Total 323 ml 560.32 ml 783 ml Output Total 0 ml 0 ml 0 ml Balance 323 ml 560.32 ml 783 ml IRMA GONZALES MD Jan 02, 2021 10:34
--- NOTE | 2021-01-02 10:39 | PDOC ---
PULMONARY PROGRESS NOTES DATE: 01/02/21 TIME: 10:37 Subjective on vent off sedation no response scant ett secretion on levo no HD 12/31 Rate of 16 tidal volume 50% FiO2 5 of PEEP Remains on Levophed Vitals Vital Signs Date Time Temp Pulse Resp B/P (MAP) Pulse Ox O2 Delivery O2 Flow Rate FiO2 01/02/21 10:00 71 21 92/44 100 Ventilator 01/02/21 09:06 40.0 01/02/21 08:00 98.0 98.0 Comments on vent off sedation no response ros unable to obtain HEENT: Other (nc at perrl orally intubated nose clear ) Lungs: Clear Cardiovascular: S1, S2 Abdomen: Soft Extremities: Other (Edema) Skin: Warm Labs Laboratory Tests Test 12/31/20 11:48 12/31/20 17:56 01/01/21 00:41 01/01/21 05:46 Glucose (Fingerstick) 94 mg/dL (70-99) 88 mg/dL (70-99) 91 mg/dL (70-99) 110 mg/dL (70-99) Test 01/01/21 05:50 01/01/21 08:10 01/01/21 12:14 01/01/21 17:44 White Blood Count 15.4 x10^3/uL (4.0-11.0) Red Blood Count 2.66 x10^6/uL (4.30-5.70) Hemoglobin 8.1 g/dL (13.0-17.5) Hematocrit 24.7 % (39.0-53.0) Mean Corpuscular Volume 93 fL (79-100) Mean Corpuscular Hemoglobin 31 pg (25-35) Mean Corpuscular Hemoglobin Concent 33 g/dL (31-37) Red Cell Distribution Width 26.0 % (11.5-14.5) Platelet Count 57 x10^3/uL (140-400) Neutrophils (%) (Auto) 80 % (31-73) Lymphocytes (%) (Auto) 6 % (24-48) Monocytes (%) (Auto) 9 % (0-9) Eosinophils (%) (Auto) 4 % (0-3) Basophils (%) (Auto) 1 % (0-3) Neutrophils # (Auto) 12.3 x10^3/uL (1.8-7.7) Lymphocytes # (Auto) 1.0 x10^3/uL (1.0-4.8) Monocytes # (Auto) 1.4 x10^3/uL (0.0-1.1) Eosinophils # (Auto) 0.6 x10^3/uL (0.0-0.7) Basophils # (Auto) 0.1 x10^3/uL (0.0-0.2) Sodium Level 132 mmol/L (136-145) Potassium Level 3.9 mmol/L (3.5-5.1) Chloride Level 97 mmol/L (98-107) Carbon Dioxide Level 28 mmol/L (21-32) Anion Gap 7 (6-14) Blood Urea Nitrogen 41 mg/dL (8-26) Creatinine 4.4 mg/dL (0.7-1.3) Estimated GFR (Cockcroft-Gault) 12.9 Glucose Level 115 mg/dL (70-99) Calcium Level 7.2 mg/dL (8.5-10.1) Phosphorus Level 3.1 mg/dL (2.6-4.7) Magnesium Level 2.5 mg/dL (1.8-2.4) Total Bilirubin 14.3 mg/dL (0.2-1.0) Direct Bilirubin 10.2 mg/dL (0.0-0.2) Albumin 2.0 g/dL (3.4-5.0) O2 Saturation 95 % (92-99) Arterial Blood pH 7.37 (7.35-7.45) Arterial Blood pCO2 at Patient Temp 46 mmHg (35-46) Arterial Blood pO2 at Patient Temp 77 mmHg (65-108) Arterial Blood HCO3 26 mmol/L (21-28) Arterial Blood Base Excess 1 mmol/L (-3-3) FiO2 50 Glucose (Fingerstick) 84 mg/dL (70-99) 85 mg/dL (70-99) Test 01/02/21 01:45 01/02/21 06:45 01/02/21 06:46 01/02/21 07:10 Glucose (Fingerstick) 88 mg/dL (70-99) 77 mg/dL (70-99) White Blood Count 15.7 x10^3/uL (4.0-11.0) Red Blood Count 2.75 x10^6/uL (4.30-5.70) Hemoglobin 8.2 g/dL (13.0-17.5) Hematocrit 25.5 % (39.0-53.0) Mean Corpuscular Volume 93 fL (79-100) Mean Corpuscular Hemoglobin 30 pg (25-35) Mean Corpuscular Hemoglobin Concent 32 g/dL (31-37) Red Cell Distribution Width 27.7 % (11.5-14.5) Platelet Count 68 x10^3/uL (140-400) Sodium Level 129 mmol/L (136-145) Potassium Level 4.4 mmol/L (3.5-5.1) Chloride Level 93 mmol/L (98-107) Carbon Dioxide Level 27 mmol/L (21-32) Anion Gap 9 (6-14) Blood Urea Nitrogen 59 mg/dL (8-26) Creatinine 5.3 mg/dL (0.7-1.3) Estimated GFR (Cockcroft-Gault) 10.4 Glucose Level 95 mg/dL (70-99) Calcium Level 6.9 mg/dL (8.5-10.1) Total Bilirubin 14.3 mg/dL (0.2-1.0) Direct Bilirubin 10.4 mg/dL (0.0-0.2) Aspartate Amino Transf (AST/SGOT) 161 U/L (15-37) Alanine Aminotransferase (ALT/SGPT) 28 U/L (16-63) Alkaline Phosphatase 190 U/L (46-116) Total Protein 6.3 g/dL (6.4-8.2) Albumin 1.9 g/dL (3.4-5.0) O2 Saturation 96 % (92-99) Arterial Blood pH 7.34 (7.35-7.45) Arterial Blood pCO2 at Patient Temp 48 mmHg (35-46) Arterial Blood pO2 at Patient Temp 84 mmHg (65-108) Arterial Blood HCO3 25 mmol/L (21-28) Arterial Blood Base Excess -1 mmol/L (-3-3) FiO2 50 Laboratory Tests Test 01/01/21 12:14 01/01/21 17:44 01/02/21 01:45 01/02/21 06:45 Glucose (Fingerstick) 84 mg/dL (70-99) 85 mg/dL (70-99) 88 mg/dL (70-99) White Blood Count 15.7 x10^3/uL (4.0-11.0) Red Blood Count 2.75 x10^6/uL (4.30-5.70) Hemoglobin 8.2 g/dL (13.0-17.5) Hematocrit 25.5 % (39.0-53.0) Mean Corpuscular Volume 93 fL (79-100) Mean Corpuscular Hemoglobin 30 pg (25-35) Mean Corpuscular Hemoglobin Concent 32 g/dL (31-37) Red Cell Distribution Width 27.7 % (11.5-14.5) Platelet Count 68 x10^3/uL (140-400) Sodium Level 129 mmol/L (136-145) Potassium Level 4.4 mmol/L (3.5-5.1) Chloride Level 93 mmol/L (98-107) Carbon Dioxide Level 27 mmol/L (21-32) Anion Gap 9 (6-14) Blood Urea Nitrogen 59 mg/dL (8-26) Creatinine 5.3 mg/dL (0.7-1.3) Estimated GFR (Cockcroft-Gault) 10.4 Glucose Level 95 mg/dL (70-99) Calcium Level 6.9 mg/dL (8.5-10.1) Total Bilirubin 14.3 mg/dL (0.2-1.0) Direct Bilirubin 10.4 mg/dL (0.0-0.2) Aspartate Amino Transf (AST/SGOT) 161 U/L (15-37) Alanine Aminotransferase (ALT/SGPT) 28 U/L (16-63) Alkaline Phosphatase 190 U/L (46-116) Total Protein 6.3 g/dL (6.4-8.2) Albumin 1.9 g/dL (3.4-5.0) Test 01/02/21 06:46 01/02/21 07:10 Glucose (Fingerstick) 77 mg/dL (70-99) O2 Saturation 96 % (92-99) Arterial Blood pH 7.34 (7.35-7.45) Arterial Blood pCO2 at Patient Temp 48 mmHg (35-46) Arterial Blood pO2 at Patient Temp 84 mmHg (65-108) Arterial Blood HCO3 25 mmol/L (21-28) Arterial Blood Base Excess -1 mmol/L (-3-3) FiO2 50 Medications Active Scripts Medications Dose Route/Sig Max Daily Dose Days Date Category Nafcillin 2 Gm/ 100 Ml Inj (Nafcillin In Dextrose,Iso-Osm) 2 Gm/100 Ml Froz.piggy 2 Gm IV Q4HRS 30 12/16/20 Rx Acetaminophen 325 Mg Tablet 650 Mg PO QHS 11/28/20 Reported Aspirin 81 Mg Tab.chew 1 Tab PO DAILY 11/01/20 Reported Men's Multivitamin Tablet (Multivit-Min/Folic/Vit K/Lycop) 1 Each Tablet 1 Each PO DAILY 07/19/20 Reported Pravastatin Sodium 80 Mg Tablet 1 Tab PO DAILY 03/02/19 Reported Lasix (Furosemide) 40 Mg Tablet 1 Tab PO DAILY 01/11/14 Reported Colace (Docusate Sodium) 100 Mg Capsule 1 Cap PO PRN BID PRN 01/11/14 Reported Comments cxr reviewed Aeration of the lungs appears similar to the prior examination. Support lines and tubes are in similar position. Impression . IMPRESSION: 1. Acute hypoxemic respiratory failure, multifactorial. 2. Abnormal x-ray compatible with acute respiratory distress syndrome, possible pneumonia. 3. Persistent methicillin-sensitive Staph aureus bacteremia, present upon admission. 4. Right [place] joint methicillin-susceptible Staphylococcus aureus septic arthritis. 5. Metabolic toxic encephalopathy. 6. Atrial fibrillation. 7. Hypertension. 8. Liver failure. 9. Severe protein malnutrition, present upon admission. 10. Acute renal failure. 11. Septic shock Plan . Updated 01/02 cont vent support setting reviewed 02 titration as tolerated. Wean FiO2 to 45% today on pepcid monitor WBC hb Continue current support Nutritional support Hemodialysis per nephro prognosis poor Repeat chest x-ray in a.m. discussed w rn Overall prognosis is poor Updated 01/01 cont vent support setting reviewed 02 titration as tolerated on pepcid monitor WBC hb Continue current support Nutritional support Hemodialysis per nephro prognosis poor discussed w rn Updated 12/31 cont vent support setting reviewed 02 titration as tolerated on pepcid monitor WBC hb Continue current support Nutritional support Hemodialysis prognosis poor discussed w rn Updated 12/30 Discussed with GI service WBC noted Continue current support Nutritional support Hemodialysis Patient with multiorgan failure, not expected to survive Updated 12/29 Transfuse per glass lined tank repairer Continue current support Negative fluid balance with hemodialysis Antibiotics per ID Nutritional support ABG noted updated PaO2 56 MK WATT MD Jan 02, 2021 10:39
--- NOTE | 2021-01-02 10:41 | PDOC ---
Date of Service: DATE: 01/02/21 TIME: 10:28 Objective: Objective: D/w nurse - tolerating tube feeds. Reviewed other notes - concerns re: elevated bili. Remains full code. Vital Signs: Vital Signs Date Time Temp Pulse Resp B/P (MAP) Pulse Ox O2 Delivery O2 Flow Rate FiO2 01/02/21 10:00 71 21 92/44 100 Ventilator 01/02/21 09:06 40.0 01/02/21 08:00 98.0 98.0 Labs: Laboratory Tests Test 01/01/21 12:14 01/01/21 17:44 01/02/21 01:45 01/02/21 06:46 Glucose (Fingerstick) 84 mg/dL (70-99) 85 mg/dL (70-99) 88 mg/dL (70-99) 77 mg/dL (70-99) Imaging: Abd US 12/30 IMPRESSION: Increased echogenicity of the hepatic parenchyma in relation to the right kidney suggestive of underlying hepatocellular disease, most commonly hepatic steatosis. This limits evaluation for underlying hepatic lesions. Simple right renal cyst measures 2.9 cm. CBD is not well visualized. Abd US 12/26 IMPRESSION: 1. Limited evaluation secondary to overlying bowel gas. 2. Hepatic steatosis. Normal sonographic appearance the gallbladder 3. No hydronephrosis. PE: GEN: intubated LUNGS: vent, clear HEART: RRR ABD: soft, non-distended SKIN: +jaundice, bruising NEURO/PSYCH: off sedation, non-responsive A/P: MOSF Elevated bili and Alk Phos Anemia, thrombocytopenia, coagulopathy -- Labs and two ultrasounds noted - doubt primary liver issue - will d/w Dr. Arndt. Goals of care per primary. Justicifation of Admission Dx: Justifications for Admission: Justification of Admission Dx: N/A PAMELA TREVIÑO Jan 02, 2021 10:41
--- NOTE | 2021-01-02 14:42 | NUR ---
SS following up with discharge planning. SS reviewed pt chart and discussed with pt RN. Pt is currently on the vent at 45%. Pt on IV Daptomycin QOD. COVID19 negative. Off sedation. Live and Kidney failure. Pt's son is DPOA and continues to request full aggressive care. Not stable. SS will continue to follow for discharge planning.
--- NOTE | 2021-01-02 16:40 | NUR ---
Wound/Ostomy Care Wound Type/Assessment: Wound care follow up for buttock wounds. Pt has maceration to bilateral buttocks. Pt also has DTI to left ear and left elbow. He also has a surgical incision to right knee from aspiration. Pt has mottling from pressors to bilateral feet/toes and right arm and fingers. Wounds pictured and measured. Treatment Recommendations/Plan: apply foam to right knee and sacrum, change every 2-3 days. Xeroform and foam to left elbow, change every 3 days. Offload pressure points Education provided: Pt on vent Offloading surface/device: ICU bed, TQ2H, float heels Recommended Referrals/Tests: na Discharge Recommendations for dressings: see above
[2021-01-02] MEDS: EPOETIN ALFA-EPBX for ESRD 20,000 UNIT/ML VIAL. SQ SCH (21:41)
[2021-01-02] MEDS: ACETAMINOPHEN 325 MG TABLET. PO SCH (21:42)
[2021-01-03] VITALS (23 sets, daily range): BP systolic 96–116; BP diastolic 23–54
[2021-01-03] MEDS: NOREPINEPHRINE VIAL 32 MG in IV D5W 250ML IV PRN ×2 (01:24→21:53)
[2021-01-03 05:44] LABS: HEMATOCRIT 23.6 % (39.0-53.0); HEMOGLOBIN 7.7 g/dL (13.0-17.5); RED BLOOD COUNT 2.55 x10^6/uL (4.30-5.70); RED CELL DISTRIBUTION WIDTH 28.6 % (11.5-14.5); WHITE BLOOD COUNT 12.3 x10^3/uL (4.0-11.0)
[2021-01-03 05:45] LABS: CREATININE 3.5 mg/dL (0.7-1.3); GFR 16.8
--- NOTE | 2021-01-03 06:00 | NUR ---
Patient has had no response tonight but does overbreathe the vent by 2-3 breaths. Frequent oral care done due to dry mouth and sores on lips. Blood glucose has been 83 at MN and 73 this AM. Bilateral toes are purple and right arm and fingers are also purple. Talked with son angela. He is hoping that his dad will be awake and moving around today. Tried to tell him that he had been off of all sedation for 4 days with no response so that was not likely. TF at 8PM had 400cc residual. 200 returned and TF was off until MN. Back on at 20cc/hr.
--- NOTE | 2021-01-03 06:16 | RAD ---
XR CHEST 1V Clinical Indication: Reason: Intubated 102 / Spl. Instructions: / History: Comparison: AP chest, 3 days ago. Findings: Endotracheal tube tip is 3.5 cm superior to the jairo. Enteric tube remains in the stomach, tip outs rylee of baehs-ey-gvie. Right IJ central line and dialysis catheter are stable. Left chest dual-chamber pacer. The cardiac silhouette is stable. Small bilateral pleural effusions are unchanged. Diffuse in terstitial and alveolar opacities are mildly improved in the lung bases. There is no pneumothorax. IMPRESSION: 1. Life support devices as above. 2. Infiltrates in the bilateral lung bases are mildly improved. 3. Small bilateral pleural effusions. Electronically signed by: Vu Harvey MD (01/03/2021 6:14 AM) [facility]
[2021-01-03 07:46] LABS: BASE EXCESS ABG 3 mmol/L (-3-3); HCO3 ABG 28 mmol/L (21-28); PCO2 ABG 47 mmHg (35-46); PO2 ABG 57 mmHg (65-108); SAT O2 ABG 90 % (92-99)
[2021-01-03 07:56] LABS: ALBUMIN 2.2 g/dL (3.4-5.0); DIRECT BILIRUBIN 9.9 mg/dL (0.0-0.2); TOTAL PROTEIN 6.2 g/dL (6.4-8.2)
--- NOTE | 2021-01-03 07:59 | PDOC ---
Infectious Disease Note Subjective: Subjective Intubated. Unresponsive on pressors d/w RN Vital Signs: Vital Signs Vital Signs Date Time Temp Pulse Resp B/P (MAP) Pulse Ox O2 Delivery O2 Flow Rate FiO2 01/03/21 07:30 100 Ventilator 01/03/21 06:00 67 22 107/45 01/03/21 04:00 99.3 99.3 01/02/21 09:06 40.0 Physical Exam: PHYSICAL EXAM GENERAL: Intubated,Unresponsive HEENT: ETT OGT in place, icteric NECK: Right IJ placed , chest wall has right HDC looks clean LUNGS: Decreased HEART: S1, S2, systolic murmur present. Pacemaker site looks okay ABDOMEN: Soft, nontender, nondistended. EXTREMITIES: Right knee prepatellar swelling, mild erythema , no drainage, DERMATOLOGIC: No generalized rash, multiple purpuric lesions both feet and upper extremity. NEUROLOGIC: Unresponsive Lines as above Medications: Inpatient Meds: Medications reviewed. Labs: Lab Laboratory Tests Test 01/03/21 00:15 01/03/21 05:30 01/03/21 05:34 Glucose (Fingerstick) 83 mg/dL (70-99) 73 mg/dL (70-99) White Blood Count 12.3 x10^3/uL (4.0-11.0) Red Blood Count 2.55 x10^6/uL (4.30-5.70) Hemoglobin 7.7 g/dL (13.0-17.5) Hematocrit 23.6 % (39.0-53.0) Mean Corpuscular Volume 93 fL (79-100) Mean Corpuscular Hemoglobin 30 pg (25-35) Mean Corpuscular Hemoglobin Concent 33 g/dL (31-37) Red Cell Distribution Width 28.6 % (11.5-14.5) Platelet Count 74 x10^3/uL (140-400) Sodium Level 132 mmol/L (136-145) Potassium Level 4.0 mmol/L (3.5-5.1) Chloride Level 96 mmol/L (98-107) Carbon Dioxide Level 29 mmol/L (21-32) Anion Gap 7 (6-14) Blood Urea Nitrogen 37 mg/dL (8-26) Creatinine 3.5 mg/dL (0.7-1.3) Estimated GFR (Cockcroft-Gault) 16.8 Glucose Level 79 mg/dL (70-99) Calcium Level 7.0 mg/dL (8.5-10.1) Micro Chest x-ray IMPRESSION: 1. Increase in diffuse mixed interstitial and alveolar infiltrate and small pleural effusions. 2. Stable cardiomegaly and cardiac pacemaker. 3. Right internal jugular catheter with the tip overlying expected position of the superior cavoatrial junction. Objective: Assessment: Patient with prolonged hospitalization and complicated medical course now with multiorgan failure Persistent methicillin sensitive staph aureus bacteremia 4 of 4 bottles present on admission 11/28/2020, November 30 and December 02 History of PPM.H/O recent battery exchange. SOO negative for vegetation or thrombus Rt [place] joint MSSA septic arthritis status post synovial aspirate WBC 30,000 RBC 66,000 Status post irrigation debridement of right knee joint and prepatellar bursa on December 04, 2020 Cultures positive for MSSA Sepsis Leukocytosis and lactic acidosis Thrombocytopenia acute,Hematology consulted Respiratory failure status post intubation on 12/26/2020/appears multifactorial ARDS D Dimer elevated Encephalopathy Neurology following,? anoxic encephalopathy Anemia status post PRBC 12/27/2020 History of fall present on admission. GUERO on HD urine eosinophil negative Abnormal LFTs likely shock liver with worsening hyperbilirubinemia History of atrial fibrillation. CHF status post PPM Hypertension. Coagulopathy on admission Nausea and vomiting couple of days ago which had resolved Plan: Plan of Care ,Cont Daptomycin repeat bc negative so far Monitor labs and cultures, worsening LFTs Bood culture remain negative, UA and urine culture not done as patient is anuric Continue local wound care as directed Critically ill Overall long-term prognosis is very poor Consider palliative care/comfort measures Discussed with nursing staff ELIZABETH BALLESTEROS MD Jan 03, 2021 07:59
[2021-01-03 09:05] LABS: FIO2 ABG 40/VENT
--- NOTE | 2021-01-03 09:47 | PN ---
DATE: 01/03/2021 DAILY PROGRESS NOTE LOCATION: He is in ICU, 102. SUBJECTIVE: This 85-year-old male remains hospitalized, initially with MSSA sepsis from a right knee source. He has subsequently developed multiorgan failure. He remains in the ICU, with mild sedation for the last 4 days, but is not arousing. He is mechanically ventilated with an FIO2 of 40% and 5 of PEEP this morning, nursing talked about inability for him to tolerate tube feeds with high residuals as well as the skin changes on his toes, arms, do not appear to be ischemic type changes, always his feet are warm. They look more embolic to me. OBJECTIVE: VITAL SIGNS: Stable. He is afebrile. There is no urine output. CHEST: Clear. HEART: Regular. ABDOMEN: Benign. EXTREMITIES: Has petechial changes on his extremities. NEUROLOGIC: He is unresponsive. LABORATORY DATA: Morning labs show a platelet count that is actually increased a little bit up to 74,000 this morning. Hemoglobin is stable in the upper 7s. He has a blood gas and chest x-ray ordered this morning that has not been done, but pO2 actually looked a little better yesterday along with his blood gas. Bilirubin yesterday was up to 14.3 with a direct of 10.4. Liver ultrasound showing fatty liver. Albumin 1.9. ASSESSMENT: Methicillin-susceptible Staphylococcus aureus sepsis with multiorgan failure, currently on supportive care including pressors with labs as noted above. PLAN: Continue supportive care. We will discuss once again with his son today goals of care going forward. OSMAIN/JAIRO DR: Danielle TID: [id number]
--- NOTE | 2021-01-03 09:56 | PDOC ---
Date of Service: DATE: 01/03/21 TIME: 09:51 Objective: Objective: Reviewed pressurised container filler nursing note: Patient has had no response tonight but does overbreathe the vent by 2-3 breaths. Frequent oral care done due to dry mouth and sores on lips. Blood glucose has been 83 at MN and 73 this AM. Bilateral toes are purple and right arm and fingers are also purple. Talked with son angela. He is hoping that his dad will be awake and moving around today. Tried to tell him that he had been off of all sedation for 4 days with no response so that was not likely. TF at 8PM had 400cc residual. 200 returned and TF was off until MN. Back on at 20cc/hr. Vital Signs: Vital Signs Date Time Temp Pulse Resp B/P (MAP) Pulse Ox O2 Delivery O2 Flow Rate FiO2 01/03/21 09:00 70 18 101/23 100 Ventilator 01/03/21 08:00 99.3 99.3 01/02/21 09:06 40.0 Labs: Laboratory Tests Test 01/03/21 00:15 01/03/21 05:34 Glucose (Fingerstick) 83 mg/dL (70-99) 73 mg/dL (70-99) Imaging: CXR 01/03 IMPRESSION: 1. Life support devices as above. 2. Infiltrates in the bilateral lung bases are mildly improved. 3. Small bilateral pleural effusions. PE: GEN: intubated LUNGS: vent, clear HEART: RRR ABD: soft NEURO/PSYCH: unresponsive A/P: MOSF Elevated bili and Alk Phos - do not suspect primary liver issue Anemia, thrombocytopenia -- Unresponsive off sedation on pressors. Currently full code - defer goals of care to primary. Poor prognosis. Justicifation of Admission Dx: Justifications for Admission: Justification of Admission Dx: N/A PAMELA TREVIÑO Jan 03, 2021 09:56
--- NOTE | 2021-01-03 10:18 | PDOC ---
Renal-Progress Notes Subjective Notes Notes NO NEW CHANGES History of Present Illness Hx of present illness REMAINS CRITICALLY ILL Vitals Vitals Vital Signs Date Time Temp Pulse Resp B/P (MAP) Pulse Ox O2 Delivery O2 Flow Rate FiO2 01/03/21 10:00 65 18 108/47 100 Ventilator 01/03/21 08:00 99.3 99.3 01/02/21 09:06 40.0 Weight Weight [ ] I.O. Intake and Output Intake and Output 01/03/21 07:00 Intake Total 1805 ml Output Total 200 ml Balance 1605 ml Intake Oral 0 ml IV Total 1047 ml Tube Feeding 758 ml Output Urine Total 0 ml Gastric Drainage Total 200 ml Labs Labs Laboratory Tests Test 01/03/21 00:15 01/03/21 05:30 01/03/21 05:34 01/03/21 07:35 Glucose (Fingerstick) 83 mg/dL (70-99) 73 mg/dL (70-99) White Blood Count 12.3 x10^3/uL (4.0-11.0) Red Blood Count 2.55 x10^6/uL (4.30-5.70) Hemoglobin 7.7 g/dL (13.0-17.5) Hematocrit 23.6 % (39.0-53.0) Mean Corpuscular Volume 93 fL (79-100) Mean Corpuscular Hemoglobin 30 pg (25-35) Mean Corpuscular Hemoglobin Concent 33 g/dL (31-37) Red Cell Distribution Width 28.6 % (11.5-14.5) Platelet Count 74 x10^3/uL (140-400) Sodium Level 132 mmol/L (136-145) Potassium Level 4.0 mmol/L (3.5-5.1) Chloride Level 96 mmol/L (98-107) Carbon Dioxide Level 29 mmol/L (21-32) Anion Gap 7 (6-14) Blood Urea Nitrogen 37 mg/dL (8-26) Creatinine 3.5 mg/dL (0.7-1.3) Estimated GFR (Cockcroft-Gault) 16.8 Glucose Level 79 mg/dL (70-99) Calcium Level 7.0 mg/dL (8.5-10.1) Total Bilirubin 14.0 mg/dL (0.2-1.0) Direct Bilirubin 9.9 mg/dL (0.0-0.2) Aspartate Amino Transf (AST/SGOT) 131 U/L (15-37) Alanine Aminotransferase (ALT/SGPT) 25 U/L (16-63) Alkaline Phosphatase 179 U/L (46-116) Total Protein 6.2 g/dL (6.4-8.2) Albumin 2.2 g/dL (3.4-5.0) O2 Saturation 90 % (92-99) Arterial Blood pH 7.40 (7.35-7.45) Arterial Blood pCO2 at Patient Temp 47 mmHg (35-46) Arterial Blood pO2 at Patient Temp 57 mmHg (65-108) Arterial Blood HCO3 28 mmol/L (21-28) Arterial Blood Base Excess 3 mmol/L (-3-3) FiO2 40/vent Micro Micro Microbiology 12/27/20 Blood Culture - Final, Complete NO GROWTH AFTER 5 DAYS 12/22/20 Gram Stain Evaluation - Final, Complete 12/22/20 Respiratory Culture - Final, Complete 12/07/20 Urine Culture - Final, Complete 12/04/20 Gram Stain - Final, Complete 12/04/20 Aerobic and Anaerobic Culture - Final, Complete Review of Systems Constitutional: yes: unresponsive Ears/Nose/Throat: Yes: no symptom reported Eyes: Yes: no symptom reported Pulmonary: Yes no symptom reported Gastrointestional: Yes: no symptom reported Genitourinary: Yes: no symptom reported Musculoskeletal: Yes: no symptom reported Skin: Yes no symptom reported Psychiatric/Neurological: Yes: no symptom reported Endocrine: Yes: no symptom reported Physical Exam General Appearance: mild distress Skin: warm Respiratory: ventilator (Mode:A/C), decreased breath sounds Heart: S1S2 Abdomen: soft, bowel sounds present Genitourinary: bladder flat Extremities: no edema, edema Neurology: other (sedated ) Assessment Assessment IMP HYPOTENSION GUERO DUE TO ABOVE-ATN SEPSIS RIGHT KNEE EFFUSION LIVER FAILURE SSS WITH PPM-RECENT BATTERY EXCHANGE CHRONIC AFIB ANTICOAGULATION ANEMIA ACUTE RESP FAILURE HYPOXIA PLAN HD TOMORROW CONT EPOGEN ANTIBIOTICS PRESSORS NEEDED D/W PULM VENT SUPPORT POOR PROGNOSIS WILL FOLLOW ALFREDO EASTON MD Jan 03, 2021 10:18
[2021-01-03] MEDS: PANTOPRAZOLE IV PUSH 40 MG VIAL. IVP SCH (10:24)
--- NOTE | 2021-01-03 11:40 | PDOC ---
PULMONARY PROGRESS NOTES DATE: 01/03/21 TIME: 11:33 Subjective on vent off sedation no response scant ett secretion on levo no HD 12/31 Rate of 16 tidal volume 40% FiO2, 5 of PEEP Remains on Levophed Vitals Vital Signs Date Time Temp Pulse Resp B/P (MAP) Pulse Ox O2 Delivery O2 Flow Rate FiO2 01/03/21 11:00 64 18 101/30 100 Ventilator 01/03/21 08:00 99.3 99.3 01/02/21 09:06 40.0 Comments on vent off sedation no response ros unable to obtain HEENT: Other (nc at perrl orally intubated nose clear ) Lungs: Clear Cardiovascular: S1, S2 Abdomen: Soft Extremities: Other (Edema) Skin: Warm Labs Laboratory Tests Test 01/01/21 12:14 01/01/21 17:44 01/02/21 01:45 01/02/21 06:45 Glucose (Fingerstick) 84 mg/dL (70-99) 85 mg/dL (70-99) 88 mg/dL (70-99) White Blood Count 15.7 x10^3/uL (4.0-11.0) Red Blood Count 2.75 x10^6/uL (4.30-5.70) Hemoglobin 8.2 g/dL (13.0-17.5) Hematocrit 25.5 % (39.0-53.0) Mean Corpuscular Volume 93 fL (79-100) Mean Corpuscular Hemoglobin 30 pg (25-35) Mean Corpuscular Hemoglobin Concent 32 g/dL (31-37) Red Cell Distribution Width 27.7 % (11.5-14.5) Platelet Count 68 x10^3/uL (140-400) Sodium Level 129 mmol/L (136-145) Potassium Level 4.4 mmol/L (3.5-5.1) Chloride Level 93 mmol/L (98-107) Carbon Dioxide Level 27 mmol/L (21-32) Anion Gap 9 (6-14) Blood Urea Nitrogen 59 mg/dL (8-26) Creatinine 5.3 mg/dL (0.7-1.3) Estimated GFR (Cockcroft-Gault) 10.4 Glucose Level 95 mg/dL (70-99) Calcium Level 6.9 mg/dL (8.5-10.1) Total Bilirubin 14.3 mg/dL (0.2-1.0) Direct Bilirubin 10.4 mg/dL (0.0-0.2) Aspartate Amino Transf (AST/SGOT) 161 U/L (15-37) Alanine Aminotransferase (ALT/SGPT) 28 U/L (16-63) Alkaline Phosphatase 190 U/L (46-116) Total Protein 6.3 g/dL (6.4-8.2) Albumin 1.9 g/dL (3.4-5.0) Test 01/02/21 06:46 01/02/21 07:10 01/03/21 00:15 01/03/21 05:30 Glucose (Fingerstick) 77 mg/dL (70-99) 83 mg/dL (70-99) O2 Saturation 96 % (92-99) Arterial Blood pH 7.34 (7.35-7.45) Arterial Blood pCO2 at Patient Temp 48 mmHg (35-46) Arterial Blood pO2 at Patient Temp 84 mmHg (65-108) Arterial Blood HCO3 25 mmol/L (21-28) Arterial Blood Base Excess -1 mmol/L (-3-3) FiO2 50 White Blood Count 12.3 x10^3/uL (4.0-11.0) Red Blood Count 2.55 x10^6/uL (4.30-5.70) Hemoglobin 7.7 g/dL (13.0-17.5) Hematocrit 23.6 % (39.0-53.0) Mean Corpuscular Volume 93 fL (79-100) Mean Corpuscular Hemoglobin 30 pg (25-35) Mean Corpuscular Hemoglobin Concent 33 g/dL (31-37) Red Cell Distribution Width 28.6 % (11.5-14.5) Platelet Count 74 x10^3/uL (140-400) Sodium Level 132 mmol/L (136-145) Potassium Level 4.0 mmol/L (3.5-5.1) Chloride Level 96 mmol/L (98-107) Carbon Dioxide Level 29 mmol/L (21-32) Anion Gap 7 (6-14) Blood Urea Nitrogen 37 mg/dL (8-26) Creatinine 3.5 mg/dL (0.7-1.3) Estimated GFR (Cockcroft-Gault) 16.8 Glucose Level 79 mg/dL (70-99) Calcium Level 7.0 mg/dL (8.5-10.1) Total Bilirubin 14.0 mg/dL (0.2-1.0) Direct Bilirubin 9.9 mg/dL (0.0-0.2) Aspartate Amino Transf (AST/SGOT) 131 U/L (15-37) Alanine Aminotransferase (ALT/SGPT) 25 U/L (16-63) Alkaline Phosphatase 179 U/L (46-116) Total Protein 6.2 g/dL (6.4-8.2) Albumin 2.2 g/dL (3.4-5.0) Test 01/03/21 05:34 01/03/21 07:35 Glucose (Fingerstick) 73 mg/dL (70-99) O2 Saturation 90 % (92-99) Arterial Blood pH 7.40 (7.35-7.45) Arterial Blood pCO2 at Patient Temp 47 mmHg (35-46) Arterial Blood pO2 at Patient Temp 57 mmHg (65-108) Arterial Blood HCO3 28 mmol/L (21-28) Arterial Blood Base Excess 3 mmol/L (-3-3) FiO2 40/vent Laboratory Tests Test 01/03/21 00:15 01/03/21 05:30 01/03/21 05:34 01/03/21 07:35 Glucose (Fingerstick) 83 mg/dL (70-99) 73 mg/dL (70-99) White Blood Count 12.3 x10^3/uL (4.0-11.0) Red Blood Count 2.55 x10^6/uL (4.30-5.70) Hemoglobin 7.7 g/dL (13.0-17.5) Hematocrit 23.6 % (39.0-53.0) Mean Corpuscular Volume 93 fL (79-100) Mean Corpuscular Hemoglobin 30 pg (25-35) Mean Corpuscular Hemoglobin Concent 33 g/dL (31-37) Red Cell Distribution Width 28.6 % (11.5-14.5) Platelet Count 74 x10^3/uL (140-400) Sodium Level 132 mmol/L (136-145) Potassium Level 4.0 mmol/L (3.5-5.1) Chloride Level 96 mmol/L (98-107) Carbon Dioxide Level 29 mmol/L (21-32) Anion Gap 7 (6-14) Blood Urea Nitrogen 37 mg/dL (8-26) Creatinine 3.5 mg/dL (0.7-1.3) Estimated GFR (Cockcroft-Gault) 16.8 Glucose Level 79 mg/dL (70-99) Calcium Level 7.0 mg/dL (8.5-10.1) Total Bilirubin 14.0 mg/dL (0.2-1.0) Direct Bilirubin 9.9 mg/dL (0.0-0.2) Aspartate Amino Transf (AST/SGOT) 131 U/L (15-37) Alanine Aminotransferase (ALT/SGPT) 25 U/L (16-63) Alkaline Phosphatase 179 U/L (46-116) Total Protein 6.2 g/dL (6.4-8.2) Albumin 2.2 g/dL (3.4-5.0) O2 Saturation 90 % (92-99) Arterial Blood pH 7.40 (7.35-7.45) Arterial Blood pCO2 at Patient Temp 47 mmHg (35-46) Arterial Blood pO2 at Patient Temp 57 mmHg (65-108) Arterial Blood HCO3 28 mmol/L (21-28) Arterial Blood Base Excess 3 mmol/L (-3-3) FiO2 40/vent Medications Active Scripts Medications Dose Route/Sig Max Daily Dose Days Date Category Nafcillin 2 Gm/ 100 Ml Inj (Nafcillin In Dextrose,Iso-Osm) 2 Gm/100 Ml Froz.piggy 2 Gm IV Q4HRS 30 12/16/20 Rx Acetaminophen 325 Mg Tablet 650 Mg PO QHS 11/28/20 Reported Aspirin 81 Mg Tab.chew 1 Tab PO DAILY 11/01/20 Reported Men's Multivitamin Tablet (Multivit-Min/Folic/Vit K/Lycop) 1 Each Tablet 1 Each PO DAILY 07/19/20 Reported Pravastatin Sodium 80 Mg Tablet 1 Tab PO DAILY 03/02/19 Reported Lasix (Furosemide) 40 Mg Tablet 1 Tab PO DAILY 01/11/14 Reported Colace (Docusate Sodium) 100 Mg Capsule 1 Cap PO PRN BID PRN 01/11/14 Reported Comments Chest x-ray reviewed dated 01/03/21 Bilateral interstitial infiltrates, no significant change Impression . IMPRESSION: 1. Acute hypoxemic respiratory failure, multifactorial. 2. Abnormal x-ray compatible with acute respiratory distress syndrome, possible pneumonia. 3. Persistent methicillin-sensitive Staph aureus bacteremia, present upon admission. 4. Right [place] joint methicillin-susceptible Staphylococcus aureus septic arthritis. 5. Metabolic toxic encephalopathy. 6. Atrial fibrillation. 7. Hypertension. 8. Liver failure. 9. Severe protein malnutrition, present upon admission. 10. Acute renal failure. 11. Septic shock 12. Lower extremity digits ecchymosis, suspect secondary to Levophed Plan . Updated 01/03 cont vent support setting reviewed 02 titration as tolerated. FiO2 down to 40%. Not responding to any commands. Has been off sedation since 30 December monitor WBC hb Continue current support Nutritional support Hemodialysis per nephro prognosis poor discussed w rn Overall prognosis is poor Message left for the son. I would like to discuss advanced directives and if they still want to pursue with aggressive care, I would recommend tracheostomy and PEG tube Updated 01/02 cont vent support setting reviewed 02 titration as tolerated. Wean FiO2 to 45% today on pepcid monitor WBC hb Continue current support Nutritional support Hemodialysis per nephro prognosis poor Repeat chest x-ray in a.m. discussed w rn Overall prognosis is poor Updated 01/01 cont vent support setting reviewed 02 titration as tolerated on pepcid monitor WBC hb Continue current support Nutritional support Hemodialysis per nephro prognosis poor discussed w rn Updated 12/31 cont vent support setting reviewed 02 titration as tolerated on pepcid monitor WBC hb Continue current support Nutritional support Hemodialysis prognosis poor discussed w rn Updated 12/30 Discussed with GI service WBC noted Continue current support Nutritional support Hemodialysis Patient with multiorgan failure, not expected to survive Updated 12/29 Transfuse per framing mill operator Continue current support Negative fluid balance with hemodialysis Antibiotics per ID Nutritional support ABG noted updated PaO2 56 MK WATT MD Jan 03, 2021 11:40
[2021-01-03] MEDS: POLYVINYL ALCOHOL 1.4% OPHTH SOLUTION 15ML BOTTLE. OU PRN (12:18)
[2021-01-03] MEDS: NYSTATIN TOPICAL POWDER 15GM BOTTLE. TP SCH ×2 (12:18→21:52)
--- NOTE | 2021-01-03 12:40 | PDOC ---
MINERVA QUINONEZ BULLET CASTING OPERATOR 01/03/21 1240: CARDIO Progress Notes Date and Time Date of Service 01/03/2021 Time of Evaluation 1210 Subjective Subjective: Other (intubated ) Vitals Vitals Vital Signs Date Time Temp Pulse Resp B/P (MAP) Pulse Ox O2 Delivery O2 Flow Rate FiO2 01/03/21 11:52 100 Ventilator 01/03/21 11:00 64 18 101/30 01/03/21 08:00 99.3 99.3 01/02/21 09:06 40.0 Weight Weight [ ] Input and Output Intake and Output Intake and Output 01/03/21 07:00 Intake Total 1805 ml Output Total 200 ml Balance 1605 ml Intake Oral 0 ml IV Total 1047 ml Tube Feeding 758 ml Output Urine Total 0 ml Gastric Drainage Total 200 ml Laboratory Labs Laboratory Tests Test 01/03/21 00:15 01/03/21 05:30 01/03/21 05:34 01/03/21 07:35 Glucose (Fingerstick) 83 mg/dL (70-99) 73 mg/dL (70-99) White Blood Count 12.3 x10^3/uL (4.0-11.0) Red Blood Count 2.55 x10^6/uL (4.30-5.70) Hemoglobin 7.7 g/dL (13.0-17.5) Hematocrit 23.6 % (39.0-53.0) Mean Corpuscular Volume 93 fL (79-100) Mean Corpuscular Hemoglobin 30 pg (25-35) Mean Corpuscular Hemoglobin Concent 33 g/dL (31-37) Red Cell Distribution Width 28.6 % (11.5-14.5) Platelet Count 74 x10^3/uL (140-400) Sodium Level 132 mmol/L (136-145) Potassium Level 4.0 mmol/L (3.5-5.1) Chloride Level 96 mmol/L (98-107) Carbon Dioxide Level 29 mmol/L (21-32) Anion Gap 7 (6-14) Blood Urea Nitrogen 37 mg/dL (8-26) Creatinine 3.5 mg/dL (0.7-1.3) Estimated GFR (Cockcroft-Gault) 16.8 Glucose Level 79 mg/dL (70-99) Calcium Level 7.0 mg/dL (8.5-10.1) Total Bilirubin 14.0 mg/dL (0.2-1.0) Direct Bilirubin 9.9 mg/dL (0.0-0.2) Aspartate Amino Transf (AST/SGOT) 131 U/L (15-37) Alanine Aminotransferase (ALT/SGPT) 25 U/L (16-63) Alkaline Phosphatase 179 U/L (46-116) Total Protein 6.2 g/dL (6.4-8.2) Albumin 2.2 g/dL (3.4-5.0) O2 Saturation 90 % (92-99) Arterial Blood pH 7.40 (7.35-7.45) Arterial Blood pCO2 at Patient Temp 47 mmHg (35-46) Arterial Blood pO2 at Patient Temp 57 mmHg (65-108) Arterial Blood HCO3 28 mmol/L (21-28) Arterial Blood Base Excess 3 mmol/L (-3-3) FiO2 40/vent Microbiology Micro Microbiology 12/27/20 Blood Culture - Final, Complete NO GROWTH AFTER 5 DAYS 12/22/20 Gram Stain Evaluation - Final, Complete 12/22/20 Respiratory Culture - Final, Complete 12/07/20 Urine Culture - Final, Complete 12/04/20 Gram Stain - Final, Complete 12/04/20 Aerobic and Anaerobic Culture - Final, Complete Review of Systems Constitutional: yes: unresponsive Ears/Nose/Throat: Yes: no symptom reported Eyes: Yes: no symptom reported Pulmonary: Yes no symptom reported Gastrointestional: Yes: no symptom reported Genitourinary: Yes: no symptom reported Musculoskeletal: Yes: no symptom reported Skin: Yes no symptom reported Psychiatric/Neurological: Yes: no symptom reported Endocrine: Yes: no symptom reported Physical Exam HEENT: Neck Supple W Full Motion Chest: Symmetric LUNGS: Other (mechanical vent ) Heart: other (intermittent V paced with underlying AFIB. rate controlled ) Abdomen: Other (soft ) Extremities: Other (2-3+ bilateral LE pitting edema) Neurology: other (sedated ) Assessment Assessment 1. Weakness, mechanical fall with right knee effusion: s/p I & D 2. Sepsis, MSSA bacteremia: no intracardiac vegetation per SOO. 3. SSS, s/p PPM. generator change ([place]) 11/01/2020. normal function 4. CAD: clinically stable 5. Permanent AFIB: rate controlled with intermittent v-pacing. 6. Coagulopathy due to warfarin; OAC held 7. Chronic diastolic CHF; echo with normal EF and WM 8. GUERO; on hemodialysis 9. HTN: Presently hypotensive needing pressor support 10. HLP: on statin 11. Anemia; s/p transfusion. Mild hemoptysis persists. OG with some blood per pcp 12. Multisystem organ failure: intubated/vent Recommendations Poor candidate for OAC given anemia, fall risk.Holding due to anemia. Check INR Metoprolol for rate control, continue levophed Fluid offloading via HD Ongoing treatment of sepsis/bacteremia per ID team Supportive care, pressor support Poor prognosis Justicifation of Admission Dx: Justifications for Admission: Justification of Admission Dx: N/A IRMA GONZALES MD 01/03/21 1443: CARDIO Progress Notes Assessment Assessment Patient seen and examined. Agree with [facility] HISTORY PROFESSOR's assessment and plan. Acute respiratory failure, remains intubated. Continue vent management per pulmonary team. Sepsis and hypotension needing pressor support - treat per ID team. Permanent atrial fibrillation rate controlled. Telemetry showed intermittent ventricular pacing. He is poor candidate for long-term anticoagulation. Continue hemodialysis per nephrology team. Multisystem organ failure. Poor prognosis. MINERVA QUINONEZ APRN Jan 03, 2021 12:40 IRMA GONZALES MD Jan 03, 2021 14:43
[2021-01-03] MEDS: DEXTROSE 50% 25 GM / 50ML DISP.SYRIN. IV PRN ×2 (12:44→17:45)
[2021-01-03 13:09] LABS: PROTHROMBIN TIME PATIENT 19.3 SEC (11.7-14.0)
[2021-01-03 14:50] LABS: HEMATOCRIT 24.5 % (39.0-53.0); HEMOGLOBIN 8.1 g/dL (13.0-17.5); RED BLOOD COUNT 2.65 x10^6/uL (4.30-5.70); RED CELL DISTRIBUTION WIDTH 28.8 % (11.5-14.5); WHITE BLOOD COUNT 16.1 x10^3/uL (4.0-11.0)
--- NOTE | 2021-01-03 15:05 | NUR ---
1200 pt not tolerating tube feeding 300cc residual (discarded) with scattered stringy blood clots throughout reddish in color. Tube feeding stopped and OG hooked to LIS. 1450 650cc dark red coffee ground output noted in suction canister. Hemogram ordered-results noted. Notified Deloris and Dr Peters of output and hemogram results- no new orders at this time. Pt remains hemodynamically stable on current pressor support.
--- NOTE | 2021-01-03 16:20 | NUR ---
SS following up with discharge planning. SS reviewed pt chart and discussed with pt RN. Pt is currently on the vent at 40%. No sedation. Pt on IV Daptomycin every other day. Pt having significant bleeding today. Liver and Kidney failure. Full Code. Dr. Alfaro left message for pt's son. Dr. Hinojosa attempting to reach pt's son as well. Not stable. SS will continue to follow for discharge planning.
[2021-01-03] MEDS: ACETAMINOPHEN 325 MG TABLET. PO SCH (20:49)
[2021-01-03] MEDS: IV DEXTROSE 5% 1,000 ML IV SCH (21:51)
[2021-01-04] VITALS (29 sets, daily range): BP systolic 79–136; BP diastolic 40–62
[2021-01-04] MEDS: DEXTROSE 50% 25 GM / 50ML DISP.SYRIN. IV PRN ×2 (00:28→06:18)
[2021-01-04 06:27] LABS: CREATININE 4.5 mg/dL (0.7-1.3); GFR 12.6; POTASSIUM 4.4 mmol/L (3.5-5.1)
[2021-01-04 07:37] LABS: BASE EXCESS ABG -1 mmol/L (-3-3); HCO3 ABG 25 mmol/L (21-28); PCO2 ABG 42 mmHg (35-46); PO2 ABG 63 mmHg (65-108); SAT O2 ABG 92 % (92-99)
[2021-01-04] MEDS ORDERED: ALBUMIN HUMAN 25% 200 ML IV ONE ×2 (07:45→14:00)
[2021-01-04] MEDS ORDERED: IV NORMAL SALINE 1000ML BAG 1,000 ML IV PRN ×2 (07:45)
[2021-01-04] MEDS ORDERED: DIALYSIS PATIENT. MC PRN (07:45)
--- NOTE | 2021-01-04 07:47 | PDOC ---
PULMONARY PROGRESS NOTES DATE: 01/04/21 TIME: 07:41 Subjective Remains on vent support at 40% Remains on pressors sedation off since 12/30/20 Pt. is now having some Gastric bleeding Vitals Vital Signs Date Time Temp Pulse Resp B/P (MAP) Pulse Ox O2 Delivery O2 Flow Rate FiO2 01/04/21 07:27 96 Ventilator 01/04/21 06:00 74 17 116/48 01/04/21 04:00 98.5 98.5 Comments on vent off sedation no response ros unable to obtain HEENT: Other (nc at perrl orally intubated nose clear ) Lungs: Clear Cardiovascular: S1, S2 Abdomen: Soft Extremities: Other (Edema) Skin: Warm Labs Laboratory Tests Test 01/03/21 00:15 01/03/21 05:30 01/03/21 05:34 01/03/21 07:35 Glucose (Fingerstick) 83 mg/dL (70-99) 73 mg/dL (70-99) White Blood Count 12.3 x10^3/uL (4.0-11.0) Red Blood Count 2.55 x10^6/uL (4.30-5.70) Hemoglobin 7.7 g/dL (13.0-17.5) Hematocrit 23.6 % (39.0-53.0) Mean Corpuscular Volume 93 fL (79-100) Mean Corpuscular Hemoglobin 30 pg (25-35) Mean Corpuscular Hemoglobin Concent 33 g/dL (31-37) Red Cell Distribution Width 28.6 % (11.5-14.5) Platelet Count 74 x10^3/uL (140-400) Sodium Level 132 mmol/L (136-145) Potassium Level 4.0 mmol/L (3.5-5.1) Chloride Level 96 mmol/L (98-107) Carbon Dioxide Level 29 mmol/L (21-32) Anion Gap 7 (6-14) Blood Urea Nitrogen 37 mg/dL (8-26) Creatinine 3.5 mg/dL (0.7-1.3) Estimated GFR (Cockcroft-Gault) 16.8 Glucose Level 79 mg/dL (70-99) Calcium Level 7.0 mg/dL (8.5-10.1) Total Bilirubin 14.0 mg/dL (0.2-1.0) Direct Bilirubin 9.9 mg/dL (0.0-0.2) Aspartate Amino Transf (AST/SGOT) 131 U/L (15-37) Alanine Aminotransferase (ALT/SGPT) 25 U/L (16-63) Alkaline Phosphatase 179 U/L (46-116) Total Protein 6.2 g/dL (6.4-8.2) Albumin 2.2 g/dL (3.4-5.0) O2 Saturation 90 % (92-99) Arterial Blood pH 7.40 (7.35-7.45) Arterial Blood pCO2 at Patient Temp 47 mmHg (35-46) Arterial Blood pO2 at Patient Temp 57 mmHg (65-108) Arterial Blood HCO3 28 mmol/L (21-28) Arterial Blood Base Excess 3 mmol/L (-3-3) FiO2 40/vent Test 01/03/21 12:38 01/03/21 12:49 01/03/21 12:51 01/03/21 14:45 Glucose (Fingerstick) 68 mg/dL (70-99) 134 mg/dL (70-99) Prothrombin Time 19.3 SEC (11.7-14.0) Prothromb Time International Ratio 1.6 (0.8-1.1) White Blood Count 16.1 x10^3/uL (4.0-11.0) Red Blood Count 2.65 x10^6/uL (4.30-5.70) Hemoglobin 8.1 g/dL (13.0-17.5) Hematocrit 24.5 % (39.0-53.0) Mean Corpuscular Volume 92 fL (79-100) Mean Corpuscular Hemoglobin 31 pg (25-35) Mean Corpuscular Hemoglobin Concent 33 g/dL (31-37) Red Cell Distribution Width 28.8 % (11.5-14.5) Platelet Count 89 x10^3/uL (140-400) Magnesium Level 2.4 mg/dL (1.8-2.4) Test 01/03/21 17:36 01/03/21 17:59 01/04/21 00:23 01/04/21 00:41 Glucose (Fingerstick) 58 mg/dL (70-99) 89 mg/dL (70-99) 64 mg/dL (70-99) 171 mg/dL (70-99) Test 01/04/21 05:45 01/04/21 06:04 Sodium Level 129 mmol/L (136-145) Potassium Level 4.4 mmol/L (3.5-5.1) Chloride Level 94 mmol/L (98-107) Carbon Dioxide Level 25 mmol/L (21-32) Anion Gap 10 (6-14) Blood Urea Nitrogen 53 mg/dL (8-26) Creatinine 4.5 mg/dL (0.7-1.3) Estimated GFR (Cockcroft-Gault) 12.6 Glucose Level 76 mg/dL (70-99) Calcium Level 7.0 mg/dL (8.5-10.1) Glucose (Fingerstick) 64 mg/dL (70-99) Laboratory Tests Test 01/03/21 12:38 01/03/21 12:49 01/03/21 12:51 01/03/21 14:45 Glucose (Fingerstick) 68 mg/dL (70-99) 134 mg/dL (70-99) Prothrombin Time 19.3 SEC (11.7-14.0) Prothromb Time International Ratio 1.6 (0.8-1.1) White Blood Count 16.1 x10^3/uL (4.0-11.0) Red Blood Count 2.65 x10^6/uL (4.30-5.70) Hemoglobin 8.1 g/dL (13.0-17.5) Hematocrit 24.5 % (39.0-53.0) Mean Corpuscular Volume 92 fL (79-100) Mean Corpuscular Hemoglobin 31 pg (25-35) Mean Corpuscular Hemoglobin Concent 33 g/dL (31-37) Red Cell Distribution Width 28.8 % (11.5-14.5) Platelet Count 89 x10^3/uL (140-400) Magnesium Level 2.4 mg/dL (1.8-2.4) Test 01/03/21 17:36 01/03/21 17:59 01/04/21 00:23 01/04/21 00:41 Glucose (Fingerstick) 58 mg/dL (70-99) 89 mg/dL (70-99) 64 mg/dL (70-99) 171 mg/dL (70-99) Test 01/04/21 05:45 01/04/21 06:04 Sodium Level 129 mmol/L (136-145) Potassium Level 4.4 mmol/L (3.5-5.1) Chloride Level 94 mmol/L (98-107) Carbon Dioxide Level 25 mmol/L (21-32) Anion Gap 10 (6-14) Blood Urea Nitrogen 53 mg/dL (8-26) Creatinine 4.5 mg/dL (0.7-1.3) Estimated GFR (Cockcroft-Gault) 12.6 Glucose Level 76 mg/dL (70-99) Calcium Level 7.0 mg/dL (8.5-10.1) Glucose (Fingerstick) 64 mg/dL (70-99) Medications Active Scripts Medications Dose Route/Sig Max Daily Dose Days Date Category Nafcillin 2 Gm/ 100 Ml Inj (Nafcillin In Dextrose,Iso-Osm) 2 Gm/100 Ml Froz.piggy 2 Gm IV Q4HRS 30 12/16/20 Rx Acetaminophen 325 Mg Tablet 650 Mg PO QHS 11/28/20 Reported Aspirin 81 Mg Tab.chew 1 Tab PO DAILY 11/01/20 Reported Men's Multivitamin Tablet (Multivit-Min/Folic/Vit K/Lycop) 1 Each Tablet 1 Each PO DAILY 07/19/20 Reported Pravastatin Sodium 80 Mg Tablet 1 Tab PO DAILY 03/02/19 Reported Lasix (Furosemide) 40 Mg Tablet 1 Tab PO DAILY 01/11/14 Reported Colace (Docusate Sodium) 100 Mg Capsule 1 Cap PO PRN BID PRN 01/11/14 Reported Comments Chest x-ray reviewed dated 01/03/21 Bilateral interstitial infiltrates, no significant change Impression . IMPRESSION: 1. Acute hypoxemic respiratory failure, multifactorial. 2. Abnormal x-ray compatible with acute respiratory distress syndrome, possible pneumonia. 3. Persistent methicillin-sensitive Staph aureus bacteremia, present upon admission. 4. Right [place] joint methicillin-susceptible Staphylococcus aureus septic arthritis. 5. Metabolic toxic encephalopathy. 6. Atrial fibrillation. 7. Hypertension. 8. Liver failure. 9. Severe protein malnutrition, present upon admission. 10. Acute renal failure. 11. Septic shock 12. Lower extremity digits ecchymosis, suspect secondary to Levophed Plan . Updated 01/04/21 cont vent support setting reviewed 02 titration as tolerated. 16/500/40%/5 Not responding to any commands. Has been off sedation since 30 December Hemodialysis per nephro--renal function worse today Continue ABX per ID TF on hold-- pt. not tolerating and gastric bleeding-- DC AC and monitor HGB, PPI BID Continue vasopressors to keep MAP above 65 prognosis poor discussed w rn Overall prognosis is poor D/W son--- explained the need for tracheostomy since he wants to continue with aggressive care. He agrees to proceed.will consult surgery. Pt. remains a FULL code at this time Updated 01/03 cont vent support setting reviewed 02 titration as tolerated. FiO2 down to 40%. Not responding to any commands. Has been off sedation since 30 December monitor WBC hb Continue current support Nutritional support Hemodialysis per nephro prognosis poor discussed w rn Overall prognosis is poor Message left for the son. I would like to discuss advanced directives and if they still want to pursue with aggressive care, I would recommend tracheostomy and PEG tube Updated 01/02 cont vent support setting reviewed 02 titration as tolerated. Wean FiO2 to 45% today on pepcid monitor WBC hb Continue current support Nutritional support Hemodialysis per nephro prognosis poor Repeat chest x-ray in a.m. discussed w rn Overall prognosis is poor MK WATT MD Jan 04, 2021 07:47
[2021-01-04 08:25] LABS: FIO2 ABG 40/VENT
[2021-01-04] MEDS: PANTOPRAZOLE IV PUSH 40 MG VIAL. IVP SCH ×2 (08:32→21:15)
[2021-01-04] MEDS: NYSTATIN TOPICAL POWDER 15GM BOTTLE. TP SCH ×2 (08:33→21:15)
[2021-01-04] MEDS: DAPTOmycin (GENERIC) IVPB 510 MG in IV NORMAL SALINE 50ML 50 ML IV SCH (08:33)
--- NOTE | 2021-01-04 09:35 | PDOC ---
Date of Service: DATE: 01/04/21 TIME: 09:31 Objective: Objective: D/w nurse - discussed w/ pt's son who wants full code/aggressive care and to talk w/ Dr. Hinojosa. Bloody OG output - 850cc since yesterday (slowed overnight). Possible surgery opinion for tracheostomy. Vital Signs: Vital Signs Date Time Temp Pulse Resp B/P (MAP) Pulse Ox O2 Delivery O2 Flow Rate FiO2 01/04/21 08:00 98.2 68 21 98/43 95 Ventilator 98.2 Labs: Laboratory Tests Test 01/03/21 12:38 01/03/21 12:49 01/03/21 12:51 01/03/21 14:45 Glucose (Fingerstick) 68 mg/dL 134 mg/dL Prothrombin Time 19.3 SEC Prothromb Time International Ratio 1.6 White Blood Count 16.1 x10^3/uL Red Blood Count 2.65 x10^6/uL Hemoglobin 8.1 g/dL Hematocrit 24.5 % Mean Corpuscular Volume 92 fL Mean Corpuscular Hemoglobin 31 pg Mean Corpuscular Hemoglobin Concent 33 g/dL Red Cell Distribution Width 28.8 % Platelet Count 89 x10^3/uL Magnesium Level 2.4 mg/dL Test 01/03/21 17:36 01/03/21 17:59 01/04/21 00:23 01/04/21 00:41 Glucose (Fingerstick) 58 mg/dL 89 mg/dL 64 mg/dL 171 mg/dL Test 01/04/21 05:45 01/04/21 06:04 01/04/21 07:25 Sodium Level 129 mmol/L Potassium Level 4.4 mmol/L Chloride Level 94 mmol/L Carbon Dioxide Level 25 mmol/L Anion Gap 10 Blood Urea Nitrogen 53 mg/dL Creatinine 4.5 mg/dL Estimated GFR (Cockcroft-Gault) 12.6 Glucose Level 76 mg/dL Calcium Level 7.0 mg/dL Glucose (Fingerstick) 64 mg/dL O2 Saturation 92 % Arterial Blood pH 7.39 Arterial Blood pCO2 at Patient Temp 42 mmHg Arterial Blood pO2 at Patient Temp 63 mmHg Arterial Blood HCO3 25 mmol/L Arterial Blood Base Excess -1 mmol/L FiO2 40/vent C PE: GEN: intubated, not sedated LUNGS: vent ABD: brownish contents in OG canister, tube w/ reddish/watery output EXTREMITY: No edema SKIN: +jaundice NEURO/PSYCH: non-responsive A/P: MOSF, bloody OG output -- Poor prognosis, remains full code. Continue support per GI w/ PPI. Not an endoscopy candidate. Justicifation of Admission Dx: Justifications for Admission: Justification of Admission Dx: N/A PAMELA TREVIÑO Jan 04, 2021 09:35
--- NOTE | 2021-01-04 10:10 | PDOC ---
MINERVA QUINONEZ MANAGER POST 01/04/21 1010: CARDIO Progress Notes Date and Time Date of Service 01/04/2021 Time of Evaluation 0930 Subjective Subjective: Other (intubated ) Vitals Vitals Vital Signs Date Time Temp Pulse Resp B/P (MAP) Pulse Ox O2 Delivery O2 Flow Rate FiO2 01/04/21 09:00 68 17 93/43 95 Ventilator 01/04/21 08:00 98.2 98.2 Weight Weight [ ] Input and Output Intake and Output Intake and Output 01/04/21 07:00 Intake Total 562.2 ml Output Total 1050 ml Balance -487.8 ml IV Total 562.2 ml Output Urine Total 0 ml Gastric Drainage Total 750 ml Other 300 ml Laboratory Labs Laboratory Tests Test 01/03/21 12:38 01/03/21 12:49 01/03/21 12:51 01/03/21 14:45 Glucose (Fingerstick) 68 mg/dL (70-99) 134 mg/dL (70-99) Prothrombin Time 19.3 SEC (11.7-14.0) Prothromb Time International Ratio 1.6 (0.8-1.1) White Blood Count 16.1 x10^3/uL (4.0-11.0) Red Blood Count 2.65 x10^6/uL (4.30-5.70) Hemoglobin 8.1 g/dL (13.0-17.5) Hematocrit 24.5 % (39.0-53.0) Mean Corpuscular Volume 92 fL (79-100) Mean Corpuscular Hemoglobin 31 pg (25-35) Mean Corpuscular Hemoglobin Concent 33 g/dL (31-37) Red Cell Distribution Width 28.8 % (11.5-14.5) Platelet Count 89 x10^3/uL (140-400) Magnesium Level 2.4 mg/dL (1.8-2.4) Test 01/03/21 17:36 01/03/21 17:59 01/04/21 00:23 01/04/21 00:41 Glucose (Fingerstick) 58 mg/dL (70-99) 89 mg/dL (70-99) 64 mg/dL (70-99) 171 mg/dL (70-99) Test 01/04/21 05:45 01/04/21 06:04 01/04/21 07:25 Sodium Level 129 mmol/L (136-145) Potassium Level 4.4 mmol/L (3.5-5.1) Chloride Level 94 mmol/L (98-107) Carbon Dioxide Level 25 mmol/L (21-32) Anion Gap 10 (6-14) Blood Urea Nitrogen 53 mg/dL (8-26) Creatinine 4.5 mg/dL (0.7-1.3) Estimated GFR (Cockcroft-Gault) 12.6 Glucose Level 76 mg/dL (70-99) Calcium Level 7.0 mg/dL (8.5-10.1) Glucose (Fingerstick) 64 mg/dL (70-99) O2 Saturation 92 % (92-99) Arterial Blood pH 7.39 (7.35-7.45) Arterial Blood pCO2 at Patient Temp 42 mmHg (35-46) Arterial Blood pO2 at Patient Temp 63 mmHg (65-108) Arterial Blood HCO3 25 mmol/L (21-28) Arterial Blood Base Excess -1 mmol/L (-3-3) FiO2 40/vent Microbiology Micro Microbiology 12/27/20 Blood Culture - Final, Complete NO GROWTH AFTER 5 DAYS 12/22/20 Gram Stain Evaluation - Final, Complete 12/22/20 Respiratory Culture - Final, Complete 12/07/20 Urine Culture - Final, Complete 12/04/20 Gram Stain - Final, Complete 12/04/20 Aerobic and Anaerobic Culture - Final, Complete Review of Systems Constitutional: yes: unresponsive Ears/Nose/Throat: Yes: no symptom reported Eyes: Yes: no symptom reported Pulmonary: Yes no symptom reported Gastrointestional: Yes: no symptom reported Genitourinary: Yes: no symptom reported Musculoskeletal: Yes: no symptom reported Skin: Yes no symptom reported Psychiatric/Neurological: Yes: no symptom reported Endocrine: Yes: no symptom reported Physical Exam HEENT: Neck Supple W Full Motion Chest: Symmetric LUNGS: Other (mechanical vent ) Heart: irregularly irregular (afib) Abdomen: Soft N/T, Other (soft ) Extremities: Other (2-3+ bilateral LE pitting edema) Neurology: other (sedated) Assessment Assessment 1. Weakness, mechanical fall with right knee effusion: s/p I & D 2. Sepsis, MSSA bacteremia: no intracardiac vegetation per SOO. 3. SSS, s/p PPM. generator change ([employer]) 11/01/2020. normal function 4. CAD: clinically stable 5. Permanent AFIB: rate controlled with intermittent v-pacing. 6. Coagulopathy: he has been off ASA and coumadin for a while 7. Chronic diastolic CHF; echo with normal EF and WM 8. GUERO; on hemodialysis 9. HTN: Presently hypotensive needing pressor support 10. HLP: on statin 11. Anemia with GI bleed 12. Acute respiratory failure: intubated/vent Recommendations Poor candidate for OAC given anemia, fall risk. DIC panel. Consult hematology Metoprolol on hold while on levophed. monitor rhythm Fluid offloading via HD Ongoing treatment of sepsis/bacteremia per ID team Supportive care, pressor support Poor prognosis Justicifation of Admission Dx: Justifications for Admission: Justification of Admission Dx: N/A IRMA GONZALES MD 01/05/21 1128: CARDIO Progress Notes Assessment Assessment Patient seen and examined 01/04/2021. Agree with [facility]'s assessment and plan. Acute respiratory failure, remains intubated. Continue vent management per pulmonary team. Sepsis and hypotension needing pressor support - treat per ID team. Permanent atrial fibrillation rate controlled. Telemetry showed intermittent ventricular pacing. He is poor candidate for long-term anticoagulation. Continue hemodialysis per nephrology team. Multisystem organ failure. Poor prognosis. MINERVA QUINONEZ APRN Jan 04, 2021 10:10 IRMA GONZALES MD Jan 05, 2021 11:28
[2021-01-04 10:17] LABS: HEMATOCRIT 25.9 % (39.0-53.0); HEMOGLOBIN 8.4 g/dL (13.0-17.5); RED BLOOD COUNT 2.8 x10^6/uL (4.30-5.70); RED CELL DISTRIBUTION WIDTH 29.8 % (11.5-14.5)
--- NOTE | 2021-01-04 10:55 | PDOC ---
Renal-Progress Notes Subjective Notes Notes ON THE VENT History of Present Illness Hx of present illness NO SEDATION STILL NOT WAKING UP Vitals Vitals Vital Signs Date Time Temp Pulse Resp B/P (MAP) Pulse Ox O2 Delivery O2 Flow Rate FiO2 01/04/21 09:26 94 Ventilator 01/04/21 09:00 68 17 93/43 01/04/21 08:00 98.2 98.2 Weight Weight [ ] I.O. Intake and Output Intake and Output 01/04/21 07:00 Intake Total 562.2 ml Output Total 1050 ml Balance -487.8 ml IV Total 562.2 ml Output Urine Total 0 ml Gastric Drainage Total 750 ml Other 300 ml Labs Labs Laboratory Tests Test 01/03/21 12:38 01/03/21 12:49 01/03/21 12:51 01/03/21 14:45 Glucose (Fingerstick) 68 mg/dL (70-99) 134 mg/dL (70-99) Prothrombin Time 19.3 SEC (11.7-14.0) Prothromb Time International Ratio 1.6 (0.8-1.1) White Blood Count 16.1 x10^3/uL (4.0-11.0) Red Blood Count 2.65 x10^6/uL (4.30-5.70) Hemoglobin 8.1 g/dL (13.0-17.5) Hematocrit 24.5 % (39.0-53.0) Mean Corpuscular Volume 92 fL (79-100) Mean Corpuscular Hemoglobin 31 pg (25-35) Mean Corpuscular Hemoglobin Concent 33 g/dL (31-37) Red Cell Distribution Width 28.8 % (11.5-14.5) Platelet Count 89 x10^3/uL (140-400) Magnesium Level 2.4 mg/dL (1.8-2.4) Test 01/03/21 17:36 01/03/21 17:59 01/04/21 00:23 01/04/21 00:41 Glucose (Fingerstick) 58 mg/dL (70-99) 89 mg/dL (70-99) 64 mg/dL (70-99) 171 mg/dL (70-99) Test 01/04/21 05:45 01/04/21 06:04 01/04/21 07:25 01/04/21 10:00 Sodium Level 129 mmol/L (136-145) Potassium Level 4.4 mmol/L (3.5-5.1) Chloride Level 94 mmol/L (98-107) Carbon Dioxide Level 25 mmol/L (21-32) Anion Gap 10 (6-14) Blood Urea Nitrogen 53 mg/dL (8-26) Creatinine 4.5 mg/dL (0.7-1.3) Estimated GFR (Cockcroft-Gault) 12.6 Glucose Level 76 mg/dL (70-99) Calcium Level 7.0 mg/dL (8.5-10.1) Glucose (Fingerstick) 64 mg/dL (70-99) O2 Saturation 92 % (92-99) Arterial Blood pH 7.39 (7.35-7.45) Arterial Blood pCO2 at Patient Temp 42 mmHg (35-46) Arterial Blood pO2 at Patient Temp 63 mmHg (65-108) Arterial Blood HCO3 25 mmol/L (21-28) Arterial Blood Base Excess -1 mmol/L (-3-3) FiO2 40/vent White Blood Count 24.0 x10^3/uL (4.0-11.0) Red Blood Count 2.80 x10^6/uL (4.30-5.70) Hemoglobin 8.4 g/dL (13.0-17.5) Hematocrit 25.9 % (39.0-53.0) Mean Corpuscular Volume 93 fL (79-100) Mean Corpuscular Hemoglobin 30 pg (25-35) Mean Corpuscular Hemoglobin Concent 32 g/dL (31-37) Red Cell Distribution Width 29.8 % (11.5-14.5) Platelet Count 108 x10^3/uL (140-400) Micro Micro Microbiology 12/27/20 Blood Culture - Final, Complete NO GROWTH AFTER 5 DAYS 12/22/20 Gram Stain Evaluation - Final, Complete 12/22/20 Respiratory Culture - Final, Complete 12/07/20 Urine Culture - Final, Complete 12/04/20 Gram Stain - Final, Complete 12/04/20 Aerobic and Anaerobic Culture - Final, Complete Review of Systems Constitutional: yes: unresponsive Ears/Nose/Throat: Yes: no symptom reported Eyes: Yes: no symptom reported Pulmonary: Yes no symptom reported Gastrointestional: Yes: no symptom reported Genitourinary: Yes: no symptom reported Musculoskeletal: Yes: no symptom reported Skin: Yes no symptom reported Psychiatric/Neurological: Yes: no symptom reported Endocrine: Yes: no symptom reported Physical Exam General Appearance: mild distress Skin: warm Respiratory: ventilator (Mode:A/C), decreased breath sounds Heart: S1S2 Abdomen: soft, bowel sounds present Genitourinary: bladder flat Extremities: no edema, edema Neurology: other (sedated) Assessment Assessment IMP HYPOTENSION GUERO DUE TO ABOVE-ATN SEPSIS RIGHT KNEE EFFUSION LIVER FAILURE SSS WITH PPM-RECENT BATTERY EXCHANGE CHRONIC AFIB ANTICOAGULATION ANEMIA ACUTE RESP FAILURE HYPOXIA ANOXIC ENCEPHALOPATHY PLAN HD TODAY UF TO TW CONT EPOGEN ANTIBIOTICS PRESSORS NEEDED D/W PULM VENT SUPPORT POOR PROGNOSIS WILL FOLLOW NEEDS COMFORT CARE ALFREDO EASTON MD Jan 04, 2021 10:55
--- NOTE | 2021-01-04 11:12 | PDOC2 ---
CONSULT Date of Consult Date of Consult DATE: 01/04/21 TIME: 11:08 Reason for Consult Reason for Consult: respiratory failure, need for tracheostomy Referring Physician Referring Physician: Dr. Paul Identification/Chief Complaint Chief Complaint none Source Source: Chart review History of Present Illness Reason for Visit: 85 yo M with severe pneumonia and respiratory failure. Pt unable to be wean off ventilator. Pt non responsive. Past Medical History Cardiovascular: AFIB, CAD, CHF, HTN, Other (Sick sinus syndrome) Pulmonary: No pertinent hx CENTRAL NERVOUS SYSTEM: Carpal Tunnel Syndrome GI: No pertinent hx Heme/Onc: No pertinent hx Hepatobiliary: No pertinent hx Psych: No pertinent hx Rheumatologic: No pertinent hx Infectious disease: No pertinent hx Renal/: No pertinent hx Endocrine: No pertinent hx Dermatology: No pertinent hx Past Surgical History Past Surgical History: Pacemaker, Total hip replacement Family History Family History: Heart Disease Social History No ALCOHOL: none Drugs: None Lives: Alone Current Problem List Problem List Problems Medical Problems: (1) Hypokalemia Status: Acute (2) Person under investigation for COVID-19 Status: Acute (3) Pneumonia Status: Acute (4) Sepsis Status: Acute Current Medications Current Medications Current Medications Ceftriaxone Sodium (Rocephin) 1 gm 1X ONCE IVP Last administered on 11/28/20at 13:30; Start 11/28/20 at 13:30; Stop 11/28/20 at 13:31; Status DC Azithromycin 500 mg/Sodium Chloride 250 ml @ 250 mls/hr 1X ONCE IV ; Start 11/28/20 at 13:30; Stop 11/28/20 at 14:29; Status UNV Azithromycin 250 ml @ 250 mls/hr 1X ONCE IV Last administered on 11/28/20at 15:11; Start 11/28/20 at 13:30; Stop 11/28/20 at 14:29; Status DC Acetaminophen (Tylenol) 1,000 mg 1X ONCE PO Last administered on 11/28/20at 15:10; Start 11/28/20 at 14:45; Stop 11/28/20 at 14:46; Status DC Potassium Chloride/Water 100 ml @ 50 mls/hr 1X ONCE IV Last administered on 11/28/20at 16:20; Start 11/28/20 at 14:45; Stop 11/28/20 at 16:44; Status DC Potassium Chloride (Klor-Con) 40 meq 1X ONCE PO Last administered on 11/28/20at 16:21; Start 11/28/20 at 14:45; Stop 11/28/20 at 14:46; Status DC Sodium Chloride 1,000 ml @ 1,000 mls/hr 1X ONCE IV Last administered on 11/28/20at 17:41; Start 11/28/20 at 17:45; Stop 11/28/20 at 18:44; Status DC Acetaminophen (Tylenol) 650 mg PRN Q6HRS PRN PO MILD PAIN / TEMP > 100.3'F Last administered on 11/28/20at 20:36; Start 11/28/20 at 20:30 Influenza Virus Vaccine Quadrival (Flulaval Quad [id number] Syringe) 0.5 ml ONCE ONCE VAX IM Last administered on 11/29/20at 10:06; Start 11/29/20 at 09:00; Stop 11/29/20 at 09:01; Status DC Acetaminophen/ Hydrocodone Bitart (Lortab 5/325) 1 tab PRN Q4HRS PRN PO PAIN mod/severe Last administered on 12/05/20at 17:38; Start 11/28/20 at 22:45; Stop 12/05/20 at 19:50; Status DC Ceftriaxone Sodium (Rocephin) 1 gm Q24H IVP ; Start 11/29/20 at 13:00; Stop 11/29/20 at 13:11; Status DC Azithromycin 250 ml @ 250 mls/hr DAILY ONCE IV ; Start 11/30/20 at 09:00; Stop 11/30/20 at 09:59; Status UNV Azithromycin 500 mg/Sodium Chloride 250 ml @ 250 mls/hr Q24H IV ; Start 11/29/20 at 15:00; Stop 11/29/20 at 13:50; Status DC Acetaminophen (Tylenol) 650 mg QHS PO Last administered on 01/02/21at 21:42; Start 11/29/20 at 21:00 Aspirin (Aspirin Chewable) 81 mg DAILY PO Last administered on 12/19/20at 12:40; Start 11/30/20 at 09:00; Stop 12/19/20 at 14:26; Status DC Docusate Sodium (Colace) 100 mg PRN BID PRN PO HARD STOOLS Last administered on 12/01/20at 12:10; Start 11/29/20 at 09:45; Stop 12/17/20 at 17:41; Status DC Warfarin Sodium (Coumadin) 3.75 mg DAILY PO ; Start 11/30/20 at 09:00; Status UNV Atorvastatin Calcium (Lipitor) 20 mg QHS PO Last administered on 12/18/20at 20:29; Start 11/29/20 at 21:00; Stop 12/19/20 at 14:26; Status DC Daptomycin 500 mg/ Sodium Chloride 50 ml @ 100 mls/hr Q24H IV Last administered on 11/30/20at 13:19; Start 11/29/20 at 13:00; Stop 12/01/20 at 07:32; Status DC Ceftriaxone Sodium (Rocephin) 2 gm Q24H IVP Last administered on 11/30/20at 13: 21; Start 11/29/20 at 14:00; Stop 12/01/20 at 09:19; Status DC Lactobacillus Rhamnosus (Culturelle) 1 cap BID PO Last administered on 12/24/20at 22:38; Start 11/29/20 at 21:00; Stop 12/27/20 at 21:38; Status DC Daptomycin 580 mg/ Sodium Chloride 50 ml @ 100 mls/hr Q24H IV Last administered on 12/01/20at 08:52; Start 12/01/20 at 07:30; Stop 12/01/20 at 09:19; Status DC Nafcillin Sodium 2 gm/Dextrose 100 ml @ 200 mls/hr Q4HRS IV Last administered on 12/21/20at 04:11; Start 12/01/20 at 10:00; Stop 12/21/20 at 08:19; Status DC Carvedilol (Coreg) 6.25 mg DAILY PO ; Start 12/01/20 at 12:00; Stop 12/01/20 at 12:00; Status DC Furosemide (Lasix) 40 mg DAILY PO Last administered on 12/07/20at 08:28; Start 12/01/20 at 12:00; Stop 12/07/20 at 14:46; Status DC Potassium Chloride (Klor-Con) 20 meq DAILYWBKFT PO Last administered on 12/07/20at 08:28; Start 12/02/20 at 08:00; Stop 12/07/20 at 14:46; Status DC Potassium Chloride (Klor-Con) 20 meq 1X ONCE PO Last administered on 12/01/20at 12:12; Start 12/01/20 at 11:15; Stop 12/01/20 at 11:27; Status DC Carvedilol (Coreg) 3.125 mg BIDWMEALS PO Last administered on 12/03/20at 16:39; Start 12/01/20 at 12:00; Stop 12/05/20 at 20:11; Status DC Lidocaine HCl (Lidocaine 1% 20ml Vial) 10 ml 1X ONCE INJ ; Start 12/01/20 at 16:00; Stop 12/01/20 at 16:01; Status DC Ringer's Solution 1,000 ml @ 50 mls/hr Q20H IV Last administered on 12/05/20at 12:10; Start 12/05/20 at 07:00; Stop 12/05/20 at 18:59; Status DC Phytonadione (Vitamin K Ampule) 10 mg 1X ONCE SQ Last administered on 12/02/20at 11:09; Start 12/02/20 at 10:45; Stop 12/02/20 at 10:46; Status DC Sodium Chloride (Saline Mist Nasal) 1 hiro PRN Q1HR PRN NS NASAL CONGESTION Last administered on 12/20/20at 23:52; Start 12/02/20 at 20:45 Phytonadione (Vitamin K Ampule) 10 mg 1X ONCE SQ Last administered on 12/03/20at 11:17; Start 12/03/20 at 11:00; Stop 12/03/20 at 11:01; Status DC Docusate Sodium (Colace) 100 mg BID PO Last administered on 12/20/20at 08:52; Start 12/03/20 at 21:00; Stop 12/21/20 at 11:19; Status DC Polyethylene Glycol (miraLAX PACKET) 17 gm PRN DAILY PRN PO CONSTIPATION Last administered on 12/30/20at 07:24; Start 12/03/20 at 19:00 Fentanyl Citrate (Fentanyl 2ml Vial) 25 mcg PRN Q5MIN PRN IVP MILD PAIN 1-3; Start 12/04/20 at 09:30; Stop 12/05/20 at 09:29; Status DC Fentanyl Citrate (Fentanyl 2ml Vial) 50 mcg PRN Q5MIN PRN IVP MODERATE PAIN 4- 6; Start 12/04/20 at 09:30; Stop 12/05/20 at 09:29; Status DC Morphine Sulfate (Morphine Sulfate) 1 mg PRN Q10MIN PRN IVP SEVERE PAIN 7-10; Start 12/04/20 at 09:30; Stop 12/05/20 at 09:29; Status DC Ringer's Solution 1,000 ml @ 30 mls/hr Q24H IV ; Start 12/04/20 at 09:30; Stop 12/04/20 at 21:29; Status DC Hydromorphone HCl (Dilaudid) 0.5 mg PRN Q10MIN PRN IVP SEVERE PAIN 7-10, 2nd CHOICE; Start 12/04/20 at 09:30; Stop 12/05/20 at 09:29; Status DC Prochlorperazine Edisylate (Compazine) 5 mg PACU PRN PRN IVP NAUSEA, MRX1; Start 12/04/20 at 09:30; Stop 12/05/20 at 09:29; Status DC Propofol (Diprivan) 200 mg STK-MED ONCE IV ; Start 12/04/20 at 10:43; Stop 12/04/20 at 10:43; Status DC Lidocaine HCl (Lidocaine Pf 2% Vial) 5 ml STK-MED ONCE .ROUTE ; Start 12/04/20 at 10:43; Stop 12/04/20 at 10:43; Status DC Phenylephrine HCl (PHENYLEPHRINE in 0.9% NACL PF) 1 mg STK-MED ONCE IV ; Start 12/04/20 at 10:43; Stop 12/04/20 at 10:43; Status DC Sevoflurane (Ultane) 60 ml STK-MED ONCE IH ; Start 12/04/20 at 11:14; Stop 12/04/20 at 11:14; Status DC Dexamethasone Sodium Phosphate (Decadron) 4 mg STK-MED ONCE .ROUTE ; Start 12/04/20 at 11:26; Stop 12/04/20 at 11:26; Status DC Ondansetron HCl (Zofran) 4 mg STK-MED ONCE .ROUTE ; Start 12/04/20 at 11:26; Stop 12/04/20 at 11:26; Status DC Fentanyl Citrate (Fentanyl 2ml Vial) 100 mcg STK-MED ONCE .ROUTE ; Start 12/04/20 at 11:26; Stop 12/04/20 at 11:26; Status DC Daptomycin 500 mg/ Sodium Chloride 50 ml @ 100 mls/hr Q24H IV Last administered on 12/11/20at 10:46; Start 12/05/20 at 10:00; Stop 12/11/20 at 17:00; Status DC Propofol (Diprivan) 200 mg STK-MED ONCE IV ; Start 12/05/20 at 09:29; Stop 12/05/20 at 09:30; Status DC Lidocaine HCl (Viscous Lidocaine) 15 ml STK-MED ONCE .ROUTE ; Start 12/05/20 at 10:06; Stop 12/05/20 at 10:06; Status DC Lidocaine HCl (Xylocaine 2% Topical 30gm Tube) 30 hiro STK-MED ONCE TP ; Start 12/05/20 at 10:06; Stop 12/05/20 at 10:06; Status DC Benzocaine (Hurricaine One) 1 spray STK-MED ONCE .ROUTE ; Start 12/05/20 at 10:06; Stop 12/05/20 at 10:07; Status DC Acetaminophen/ Hydrocodone Bitart (Lortab 10/325) 1 tab PRN Q4HRS PRN PO MODERATE TO SEVERE PAIN Last administered on 12/24/20at 14:02; Start 12/05/20 at 20:00 Zolpidem Tartrate (Ambien) 5 mg PRN QHS PRN PO INSOMNIA Last administered on 12/23/20at 22:11; Start 12/05/20 at 20:00 Sodium Chloride 1,000 ml @ 1,000 mls/hr 1X ONCE IV Last administered on 12/06/20at 09:32; Start 12/06/20 at 09:15; Stop 12/06/20 at 10:14; Status DC Sodium Chloride 1,000 ml @ 100 mls/hr 1X ONCE IV Last administered on 12/06/20at 15:30; Start 12/06/20 at 13:15; Stop 12/06/20 at 23:14; Status DC Sodium Chloride 1,000 ml @ 100 mls/hr 1X ONCE IV Last administered on 12/07/20at 13:24; Start 12/07/20 at 11:45; Stop 12/08/20 at 10:55; Status DC Metoprolol Succinate (Toprol Xl) 25 mg DAILY PO Last administered on 12/24/20at 08:41; Start 12/09/20 at 09:00; Stop 12/25/20 at 10:43; Status DC Potassium Chloride (Klor-Con) 20 meq 1X ONCE PO Last administered on 12/10/20at 18:52; Start 12/10/20 at 19:00; Stop 12/10/20 at 19:01; Status DC Daptomycin 500 mg/ Sodium Chloride 50 ml @ 100 mls/hr Q48H IV Last a dministered on 12/25/20at 17:33; Start 12/13/20 at 10:00; Stop 12/26/20 at 11:55; Status DC Lidocaine HCl (Buffered Lidocaine 1%) 3 ml STK-MED ONCE .ROUTE ; Start 12/12/20 at 10:27; Stop 12/12/20 at 10:27; Status DC Sodium Chloride 1,000 ml @ 1,000 mls/hr Q1H PRN IV hypotension; Start 12/12/20 at 12:00; Stop 12/12/20 at 17:59; Status DC Albumin Human 200 ml @ 200 mls/hr 1X PRN PRN IV Hypotension; Start 12/12/20 at 12:00; Stop 12/12/20 at 17:59; Status DC Sodium Chloride (Normal Saline Flush) 10 ml 1X PRN PRN IV AP catheter pack; Start 12/12/20 at 12:00; Stop 12/13/20 at 11:59; Status DC Sodium Chloride (Normal Saline Flush) 10 ml 1X PRN PRN IV ECONOMICS CONSULTANT catheter pack; Start 12/12/20 at 12:00; Stop 12/13/20 at 11:59; Status DC Info (PHARMACY MONITORING -- do not chart) 1 each PRN DAILY PRN MC SEE COMMENTS; Start 12/12/20 at 12:00; Status UNV Info (PHARMACY MONITORING -- do not chart) 1 each PRN DAILY PRN MC SEE COMMENTS; Start 12/12/20 at 12:00; Status Cancel Lidocaine HCl (Buffered Lidocaine 1%) 4 ml 1X ONCE INJ Last administered on 12/12/20at 13:11; Start 12/12/20 at 13:15; Stop 12/12/20 at 13:18; Status DC Sodium Chloride 1,000 ml @ 1,000 mls/hr Q1H PRN IV hypotension; Start 12/13/20 at 09:30; Stop 12/13/20 at 15:29; Status DC Sodium Chloride 1,000 ml @ 400 mls/hr Q2H30M PRN IV PATENCY; Start 12/13/20 at 09:30; Stop 12/13/20 at 21:29; Status DC Info (PHARMACY MONITORING -- do not chart) 1 each PRN DAILY PRN MC SEE COMMENTS; Start 12/13/20 at 09:30; Status UNV Info (PHARMACY MONITORING -- do not chart) 1 each PRN DAILY PRN MC SEE COMMENTS; Start 12/13/20 at 09:30; Status UNV Epoetin Krishna-epbx (RETACRIT for ESRD PTS) 10,000 unit MoWeFr@2100 SQ Last administered on 01/02/21at 21:41; Start 12/14/20 at 21:00 Sodium Chloride 1,000 ml @ 1,000 mls/hr Q1H PRN IV hypotension; Start 12/15/20 at 07:00; Stop 12/15/20 at 12:59; Status DC Sodium Chloride 1,000 ml @ 400 mls/hr Q2H30M PRN IV PATENCY; Start 12/15/20 at 07:00; Stop 12/15/20 at 18:59; Status DC Info (PHARMACY MONITORING -- do not chart) 1 each PRN DAILY PRN MC SEE COMMENTS; Start 12/15/20 at 07:00; Stop 12/15/20 at 07:00; Status DC Info (PHARMACY MONITORING -- do not chart) 1 each PRN DAILY PRN MC SEE COMMENTS; Start 12/15/20 at 07:00; Stop 12/15/20 at 07:00; Status DC Sodium Chloride 1,000 ml @ 1,000 mls/hr Q1H PRN IV hypotension; Start 12/17/20 at 10:30; Stop 12/17/20 at 16:29; Status DC Albumin Human 200 ml @ 200 mls/hr 1X PRN PRN IV Hypotension Last administered on 12/17/20at 11:15; Start 12/17/20 at 10:30; Stop 12/17/20 at 16:29; Status DC Sodium Chloride 1,000 ml @ 400 mls/hr Q2H30M PRN IV PATENCY; Start 12/17/20 at 10:30; Stop 12/17/20 at 22:29; Status DC Info (PHARMACY MONITORING -- do not chart) 1 each PRN DAILY PRN MC SEE COMMENTS; Start 12/17/20 at 11:15; Stop 12/19/20 at 13:24; Status DC Info (PHARMACY MONITORING -- do not chart) 1 each PRN DAILY PRN MC SEE COMMENTS; Start 12/17/20 at 11:15; Status UNV Docusate Sodium (Colace) 100 mg PRN BID PRN PO HARD STOOLS Last administered on 12/30/20at 07:24; Start 12/17/20 at 17:45 Sodium Chloride 1,000 ml @ 30 mls/hr Q24H IV Last administered on 12/21/20at 20:34; Start 12/18/20 at 18:45; Stop 12/27/20 at 13:08; Status DC Sodium Chloride 1,000 ml @ 1,000 mls/hr Q1H PRN IV hypotension; Start 12/19/20 at 08:30; Stop 12/19/20 at 14:29; Status DC Albumin Human 100 ml @ 100 mls/hr 1X PRN PRN IV Hypotension; Start 12/19/20 at 08:30; Stop 12/19/20 at 14:29; Status DC Sodium Chloride 1,000 ml @ 400 mls/hr Q2H30M PRN IV PATENCY; Start 12/19/20 at 08:30; Stop 12/19/20 at 20:29; Status DC Info (PHARMACY MONITORING -- do not chart) 1 each PRN DAILY PRN MC SEE C OMMENTS; Start 12/19/20 at 08:30; Stop 12/19/20 at 13:24; Status DC Info (PHARMACY MONITORING -- do not chart) 1 each PRN DAILY PRN MC SEE COMMENTS; Start 12/19/20 at 08:30; Stop 12/21/20 at 07:55; Status DC Atorvastatin Calcium (Lipitor) 40 mg QHS PO Last administered on 01/01/21at 20:57; Start 12/19/20 at 21:00; Stop 01/02/21 at 10:04; Status DC Pantoprazole Sodium (Protonix) 40 mg DAILYAC PO Last administered on 12/24/20at 06:15; Start 12/20/20 at 09:15; Stop 12/26/20 at 10:17; Status DC Sodium Chloride 1,000 ml @ 1,000 mls/hr Q1H PRN IV hypotension; Start 12/21/20 at 08:00; Stop 12/21/20 at 13:59; Status DC Sodium Chloride 1,000 ml @ 400 mls/hr Q2H30M PRN IV PATENCY; Start 12/21/20 at 08:00; Stop 12/21/20 at 19:59; Status DC Info (PHARMACY MONITORING -- do not chart) 1 each PRN DAILY PRN MC SEE COMMENTS; Start 12/21/20 at 08:00; Stop 12/21/20 at 07:54; Status DC Info (PHARMACY MONITORING -- do not chart) 1 each PRN DAILY PRN MC SEE COMMENTS; Start 12/21/20 at 08:00; Status Cancel Cefepime HCl (Maxipime) 1 gm Q24H IVP Last administered on 12/25/20at 12:32; Start 12/22/20 at 11:00; Stop 12/26/20 at 11:56; Status DC Furosemide (Lasix) 40 mg 1X ONCE IVP Last administered on 12/22/20at 11:17; Start 12/22/20 at 11:15; Stop 12/22/20 at 11:16; Status DC Sodium Chloride 1,000 ml @ 1,000 mls/hr Q1H PRN IV hypotension; Start 12/23/20 at 10:15; Stop 12/23/20 at 16:14; Status DC Albumin Human 200 ml @ 200 mls/hr 1X PRN PRN IV Hypotension; Start 12/23/20 at 10:15; Stop 12/23/20 at 16:14; Status DC Sodium Chloride (Normal Saline Flush) 10 ml 1X PRN PRN IV AP catheter pack; Start 12/23/20 at 10:15; Stop 12/24/20 at 10:14; Status DC Sodium Chloride (Normal Saline Flush) 10 ml 1X PRN PRN IV ECONOMICS CONSULTANT catheter pack; Start 12/23/20 at 10:15; Stop 12/24/20 at 10:14; Status DC Sodium Chloride 1,000 ml @ 400 mls/hr Q2H30M PRN IV PATENCY; Start 12/23/20 at 10:15; Stop 12/23/20 at 22:14; Status DC Info (PHARMACY MONITORING -- do not chart) 1 each PRN DAILY PRN MC SEE COMMENTS; Start 12/23/20 at 10:15; Status UNV Info (PHARMACY MONITORING -- do not chart) 1 each PRN DAILY PRN MC SEE COMMENTS; Start 12/23/20 at 10:15; Status Cancel Aspirin (Ecotrin) 81 mg DAILYWBKFT PO Last administered on 12/24/20at 08:40; Start 12/23/20 at 13:00; Stop 12/27/20 at 10:33; Status DC Cefazolin Sodium/ Dextrose 50 ml @ 100 mls/hr 1X PREOP PRN IV PRIOR TO PROCEDURE Last administered on 12/23/20at 14:46; Start 12/23/20 at 14:00; Stop 12/24/20 at 13:59; Status DC Midazolam HCl (Versed) 2 mg 1X ONCE IV Last administered on 12/23/20at 14:00; Start 12/23/20 at 14:00; Stop 12/23/20 at 14:06; Status DC Fentanyl Citrate (Fentanyl 2ml Vial) 100 mcg 1X ONCE IV Last administered on 12/23/20at 14:00; Start 12/23/20 at 14:00; Stop 12/23/20 at 14:06; Status DC Cefazolin Sodium/ Dextrose 50 ml @ As Directed STK-MED ONCE IV ; Start 12/23/20 at 13:57; Stop 12/23/20 at 13:58; Status DC Lidocaine/ Epinephrine (LIDOCAINE 1%-EPI 1:100,000 Multi-Dose) 20 ml STK-MED ONCE .ROUTE ; Start 12/23/20 at 13:58; Stop 12/23/20 at 13:58; Status DC Lidocaine/ Epinephrine (LIDOCAINE 1%-EPI 1:100,000 Multi-Dose) 20 ml 1X ONCE INJ Last administered on 12/23/20at 14:15; Start 12/23/20 at 14:15; Stop 12/23/20 at 14:16; Status DC Linezolid (Zyvox) 600 mg BID PO Last administered on 12/24/20at 22:38; Start 12/24/20 at 11:00; Stop 12/25/20 at 10:48; Status DC Magnesium Sulfate 50 ml @ 25 mls/hr PRN DAILY PRN IV for Mag < 1.7 on am labs; Start 12/25/20 at 09:15 Dextrose (Dextrose 50%-Water Syringe) 25 gm STK-MED ONCE IV ; Start 12/25/20 at 22:23; Stop 12/25/20 at 22:23; Status DC Furosemide (Lasix) 40 mg 1X ONCE IVP Last administered on 12/25/20at 23:16; Start 12/25/20 at 23:00; Stop 12/25/20 at 23:05; Status DC Sodium Chloride 1,000 ml @ 1,000 mls/hr Q1H PRN IV hypotension; Start 12/26/20 at 08:45; Stop 12/26/20 at 14:44; Status DC Albumin Human 200 ml @ 200 mls/hr 1X ONCE IV Last administered on 12/27/20at 08:58; Start 12/26/20 at 08:45; Stop 12/26/20 at 09:44; Status DC Sodium Chloride 1,000 ml @ 400 mls/hr Q2H30M PRN IV PATENCY; Start 12/26/20 at 08:45; Stop 12/26/20 at 20:44; Status DC Info (PHARMACY MONITORING -- do not chart) 1 each PRN DAILY PRN MC SEE COMMENTS; Start 12/26/20 at 08:45; Status Cancel Pantoprazole Sodium (PROTONIX VIAL for IV PUSH) 40 mg DAILYAC IVP Last administered on 01/03/21at 10:24; Start 12/27/20 at 07:30; Stop 01/04/21 at 07:46; Status DC Dextrose (Dextrose 50%-Water Syringe) 25 gm STK-MED ONCE IV ; Start 12/26/20 at 10:54; Stop 12/26/20 at 10:55; Status DC Cefazolin Sodium (Ancef) 1 gm Q24H IVP Last administered on 12/26/20at 15:29; Start 12/26/20 at 16:00; Stop 12/27/20 at 10:37; Status DC Dextrose (Dextrose 50%-Water Syringe) 25 gm STK-MED ONCE IV ; Start 12/25/20 at 22:30; Stop 12/26/20 at 14:10; Status DC Norepinephrine Bitartrate 8 mg/ Dextrose 258 ml @ 18.286 mls/ hr CONT PRN IV PER PROTOCOL Last administered on 12/29/20at 05:57; Start 12/26/20 at 19:15; Stop 12/29/20 at 10:50; Status DC Fentanyl Citrate 30 ml @ 0 mls/hr CONT PRN IV SEE PROTOCOL Last administered on 12/30/20at 02:16; Start 12/26/20 at 19:15 Midazolam HCl 100 ml @ 0 mls/hr CONT PRN IV SEE PROTOCOL Last administered on 12/28/20at 22:31; Start 12/26/20 at 19:15 Vecuronium Riparius (Norcuron Bolus) 6 mg PRN 1X PRN IV VENT INDUCTION; Start 12/26/20 at 19:15; Stop 12/27/20 at 19:14; Status DC Glycerin/ Hypromellose/ Polyethylene (Artificial Tears) 1 drop PRN Q1HR PRN OU DRY EYE Last administered on 01/03/21at 12:18; Start 12/26/20 at 19:15 Dexmedetomidine HCl 400 mcg/ Sodium Chloride 100 ml @ 4.725 mls/ hr CONT PRN IV PER PROTOCOL; Start 12/26/20 at 19:15 Midazolam HCl (Versed) 5 mg PRN 1X PRN IVP VENT INDUCTION; Start 12/26/20 at 19:15; Stop 12/27/20 at 19:14; Status DC Sodium Chloride 500 ml @ 500 mls/hr 1X PRN PRN IV SEE COMMENTS; Start 12/26/20 at 19:15 Atropine Sulfate (ATROPINE 0.5mg SYRINGE) 0.5 mg PRN Q5MIN PRN IV SEE COMMENTS; Start 12/26/20 at 19:15 Famotidine (Pepcid Vial) 20 mg BID IVP Last administered on 12/27/20at 09:00; Start 12/26/20 at 21:00; Stop 12/27/20 at 10:19; Status DC Ringer's Solution 1,000 ml @ 100 mls/hr Q10H IV Last administered on 12/28/20at 04:37; Start 12/26/20 at 19:30; Stop 12/29/20 at 10:28; Status DC Etomidate (Amidate) 20 mg STK-MED ONCE IV ; Start 12/26/20 at 19:19; Stop 12/26/20 at 19:19; Status DC Succinylcholine Chloride (Anectine) 200 mg 1X ONCE IV Last administered on 12/26/20at 19:38; Start 12/26/20 at 21:15; Stop 12/26/20 at 21:16; Status DC Etomidate (Amidate) 20 mg 1X ONCE IV Last administered on 12/26/20at 19:38; Start 12/26/20 at 21:15; Stop 12/26/20 at 21:16; Status DC Dextrose (Dextrose 50%-Water Syringe) 12.5 gm PRN Q15MIN PRN IV SEE COMMENTS Last administered on 01/04/21at 06:18; Start 12/27/20 at 07:30 Sodium Chloride 1,000 ml @ 1,000 mls/hr Q1H PRN IV hypotension; Start 12/27/20 at 08:15; Stop 12/27/20 at 14:14; Status DC Albumin Human 200 ml @ 200 mls/hr 1X PRN PRN IV Hypotension; Start 12/27/20 at 08:15; Stop 12/27/20 at 14:14; Status DC Sodium Chloride 1,000 ml @ 400 mls/hr Q2H30M PRN IV PATENCY; Start 12/27/20 at 08:15; Stop 12/27/20 at 20:14; Status DC Info (PHARMACY MONITORING -- do not chart) 1 each PRN DAILY PRN MC SEE COMMENTS; Start 12/27/20 at 08:15; Stop 12/28/20 at 09:54; Status DC Dextrose (Dextrose 50%-Water Syringe) 25 gm STK-MED ONCE IV ; Start 12/26/20 at 11:00; Stop 12/27/20 at 08:58; Status DC Phytonadione (Vitamin K Ampule) 10 mg 1X ONCE SQ Last administered on 12/27/20at 11:08; Start 12/27/20 at 09:45; Stop 12/27/20 at 09:49; Status DC Daptomycin 510 mg/ Sodium Chloride 50 ml @ 100 mls/hr QODAY IV Last administered on 01/04/21at 08:33; Start 12/27/20 at 12:00 Meropenem 500 mg/ Sodium Chloride 50 ml @ 100 mls/hr DAILY IV Last administered on 12/31/20at 08:05; Start 12/27/20 at 11:00; Stop 12/31/20 at 16:05; Status DC Linezolid (Zyvox) 600 mg BID PO Last administered on 12/27/20at 21:48; Start 12/27/20 at 12:00; Stop 12/28/20 at 08:25; Status DC Aspirin (Aspirin Chewable) 81 mg DAILYWBKFT PO Last administered on 12/28/20at 10:10; Start 12/27/20 at 12:00; Stop 12/28/20 at 11:44; Status DC Aspirin (Aspirin Chewable) 81 mg 1X ONCE PO ; Start 12/27/20 at 10:45; Stop 12/27/20 at 10:46; Status UNV Fentanyl Citrate 55 ml @ 0 mls/hr CONT PRN IV PAIN; Start 12/27/20 at 12:45; Status Cancel Sodium Chloride 1,000 ml @ 1,000 mls/hr Q1H PRN IV hypotension; Start 12/28/20 at 07:15; Stop 12/28/20 at 13:14; Status DC Albumin Human 200 ml @ 200 mls/hr 1X ONCE IV Last administered on 12/28/20at 08:22; Start 12/28/20 at 07:45; Stop 12/28/20 at 08:44; Status DC Sodium Chloride 1,000 ml @ 400 mls/hr Q2H30M PRN IV PATENCY; Start 12/28/20 at 07:15; Stop 12/28/20 at 19:14; Status DC Info (PHARMACY MONITORING -- do not chart) 1 each PRN DAILY PRN MC SEE COMMENTS; Start 12/28/20 at 07:15; Status Cancel Phytonadione (Vitamin K Ampule) 10 mg 1X ONCE SQ Last administered on 12/28/20at 10:10; Start 12/28/20 at 08:15; Stop 12/28/20 at 08:16; Status DC Potassium Phosphate 15 mmol/ Sodium Chloride 105 ml @ 52.5 mls/hr 1X ONCE IV Last administered on 12/28/20at 13:32; Start 12/28/20 at 14:00; Stop 12/28/20 at 15:59; Status DC Magnesium Sulfate 50 ml @ 25 mls/hr 1X ONCE IV Last administered on 12/28/20at 13:33; Start 12/28/20 at 12:45; Stop 12/28/20 at 14:44; Status DC Sodium Phosphate 40 mmol/Sodium Chloride 263.3333 ml @ 62.5 mls/hr 1X ONCE IV Last administered on 12/29/20at 09:51; Start 12/29/20 at 10:00; Stop 12/29/20 at 14:12; Status DC Norepinephrine Bitartrate 32 mg/ Dextrose 250 ml @ 4.603 mls/ hr CONT PRN IV SEE I/O RECORD Last administered on 01/03/21at 21:53; Start 12/29/20 at 11:00 Phytonadione (Vitamin K Ampule) 10 mg 1X ONCE SQ Last administered on 12/29/20at 11:40; Start 12/29/20 at 11:00; Stop 12/29/20 at 11:05; Status DC Sodium Chloride 1,000 ml @ 1,000 mls/hr Q1H PRN IV hypotension; Start 12/29/20 at 14:30; Stop 12/29/20 at 20:29; Status DC Sodium Chloride 1,000 ml @ 400 mls/hr Q2H30M PRN IV PATENCY; Start 12/29/20 at 14:30; Stop 12/30/20 at 02:29; Status DC Info (PHARMACY MONITORING -- do not chart) 1 each PRN DAILY PRN MC SEE COMMENTS; Start 12/29/20 at 14:30; Status Cancel Sodium Chloride 1,000 ml @ 1,000 mls/hr Q1H PRN IV hypotension; Start 12/30/20 at 07:00; Stop 12/30/20 at 12:59; Status DC Albumin Human 200 ml @ 200 mls/hr 1X ONCE IV Last administered on 12/30/20at 07:50; Start 12/30/20 at 07:00; Stop 12/30/20 at 07:59; Status DC Sodium Chloride 1,000 ml @ 400 mls/hr Q2H30M PRN IV PATENCY; Start 12/30/20 at 07:00; Stop 12/30/20 at 18:59; Status DC Info (PHARMACY MONITORING -- do not chart) 1 each PRN DAILY PRN MC SEE COMMENTS; Start 12/30/20 at 07:00; Status Cancel Dextrose 1,000 ml @ 30 mls/hr Q24H IV Last administered on 01/03/21at 21:51; Start 12/30/20 at 21:45 Magnesium Sulfate 50 ml @ 25 mls/hr 1X ONCE IV Last administered on 12/31/20at 23:39; Start 12/31/20 at 23:45; Stop 01/01/21 at 01:44; Status DC Nystatin (Nystop) 1 hiro BID TP Last administered on 01/04/21at 08:33; Start 01/02/21 at 09:15 Albumin Human 200 ml @ 200 mls/hr 1X PRN PRN IV Hypotension Last administered on 01/02/21at 09:43; Start 01/02/21 at 09:15; Stop 01/02/21 at 15:14; Status DC Info (PHARMACY MONITORING -- do not chart) 1 each PRN DAILY PRN MC SEE COMMENTS; Start 01/02/21 at 09:15; Status Cancel Sodium Chloride 1,000 ml @ 1,000 mls/hr Q1H PRN IV hypotension; Start 01/04/21 at 07:45; Stop 01/04/21 at 13:44 Albumin Human 200 ml @ 200 mls/hr 1X ONCE IV ; Start 01/04/21 at 07:45; Stop 01/04/21 at 08:44; Status DC Sodium Chloride 1,000 ml @ 400 mls/hr Q2H30M PRN IV PATENCY; Start 01/04/21 at 07:45; Stop 01/04/21 at 19:44 Info (PHARMACY MONITORING -- do not chart) 1 each PRN DAILY PRN MC SEE TESS NTS; Start 01/04/21 at 07:45 Pantoprazole Sodium (PROTONIX VIAL for IV PUSH) 40 mg BID IVP Last administered on 01/04/21at 08:32; Start 01/04/21 at 09:00 Active Scripts Active Nafcillin 2 Gm/ 100 Ml Inj (Nafcillin In Dextrose,Iso-Osm) 2 Gm/100 Ml Froz.piggy 2 Gm IV Q4HRS 30 Days Reported Acetaminophen 325 Mg Tablet 650 Mg PO QHS Aspirin 81 Mg Tab.chew 1 Tab PO DAILY Men's Multivitamin Tablet (Multivit-Min/Folic/Vit K/Lycop) 1 Each Tablet 1 Each PO DAILY Pravastatin Sodium 80 Mg Tablet 1 Tab PO DAILY Lasix (Furosemide) 40 Mg Tablet 1 Tab PO DAILY Colace (Docusate Sodium) 100 Mg Capsule 1 Cap PO PRN BID PRN Allergies Allergies: Coded Allergies: No Known Drug Allergies (Unverified , 07/22/20) ROS Review of System unobtainable Physical Exam General: No acute distress, Other (diffuse jaundice) Vitals VITALS Vital Signs Date Time Temp Pulse Resp B/P (MAP) Pulse Ox O2 Delivery O2 Flow Rate FiO2 01/04/21 09:26 94 Ventilator 01/04/21 09:00 68 17 93/43 01/04/21 08:00 98.2 98.2 Labs Labs Laboratory Tests Test 01/03/21 00:15 01/03/21 05:30 01/03/21 05:34 01/03/21 07:35 Glucose (Fingerstick) 83 mg/dL (70-99) 73 mg/dL (70-99) White Blood Count 12.3 x10^3/uL (4.0-11.0) Red Blood Count 2.55 x10^6/uL (4.30-5.70) Hemoglobin 7.7 g/dL (13.0-17.5) Hematocrit 23.6 % (39.0-53.0) Mean Corpuscular Volume 93 fL (79-100) Mean Corpuscular Hemoglobin 30 pg (25-35) Mean Corpuscular Hemoglobin Concent 33 g/dL (31-37) Red Cell Distribution Width 28.6 % (11.5-14.5) Platelet Count 74 x10^3/uL (140-400) Sodium Level 132 mmol/L (136-145) Potassium Level 4.0 mmol/L (3.5-5.1) Chloride Level 96 mmol/L (98-107) Carbon Dioxide Level 29 mmol/L (21-32) Anion Gap 7 (6-14) Blood Urea Nitrogen 37 mg/dL (8-26) Creatinine 3.5 mg/dL (0.7-1.3) Estimated GFR (Cockcroft-Gault) 16.8 Glucose Level 79 mg/dL (70-99) Calcium Level 7.0 mg/dL (8.5-10.1) Total Bilirubin 14.0 mg/dL (0.2-1.0) Direct Bilirubin 9.9 mg/dL (0.0-0.2) Aspartate Amino Transf (AST/SGOT) 131 U/L (15-37) Alanine Aminotransferase (ALT/SGPT) 25 U/L (16-63) Alkaline Phosphatase 179 U/L (46-116) Total Protein 6.2 g/dL (6.4-8.2) Albumin 2.2 g/dL (3.4-5.0) O2 Saturation 90 % (92-99) Arterial Blood pH 7.40 (7.35-7.45) Arterial Blood pCO2 at Patient Temp 47 mmHg (35-46) Arterial Blood pO2 at Patient Temp 57 mmHg (65-108) Arterial Blood HCO3 28 mmol/L (21-28) Arterial Blood Base Excess 3 mmol/L (-3-3) FiO2 40/vent Test 01/03/21 12:38 01/03/21 12:49 01/03/21 12:51 01/03/21 14:45 Glucose (Fingerstick) 68 mg/dL (70-99) 134 mg/dL (70-99) Prothrombin Time 19.3 SEC (11.7-14.0) Prothromb Time International Ratio 1.6 (0.8-1.1) White Blood Count 16.1 x10^3/uL (4.0-11.0) Red Blood Count 2.65 x10^6/uL (4.30-5.70) Hemoglobin 8.1 g/dL (13.0-17.5) Hematocrit 24.5 % (39.0-53.0) Mean Corpuscular Volume 92 fL (79-100) Mean Corpuscular Hemoglobin 31 pg (25-35) Mean Corpuscular Hemoglobin Concent 33 g/dL (31-37) Red Cell Distribution Width 28.8 % (11.5-14.5) Platelet Count 89 x10^3/uL (140-400) Magnesium Level 2.4 mg/dL (1.8-2.4) Test 01/03/21 17:36 01/03/21 17:59 01/04/21 00:23 01/04/21 00:41 Glucose (Fingerstick) 58 mg/dL (70-99) 89 mg/dL (70-99) 64 mg/dL (70-99) 171 mg/dL (70-99) Test 01/04/21 05:45 01/04/21 06:04 01/04/21 07:25 01/04/21 10:00 Sodium Level 129 mmol/L (136-145) Potassium Level 4.4 mmol/L (3.5-5.1) Chloride Level 94 mmol/L (98-107) Carbon Dioxide Level 25 mmol/L (21-32) Anion Gap 10 (6-14) Blood Urea Nitrogen 53 mg/dL (8-26) Creatinine 4.5 mg/dL (0.7-1.3) Estimated GFR (Cockcroft-Gault) 12.6 Glucose Level 76 mg/dL (70-99) Calcium Level 7.0 mg/dL (8.5-10.1) Glucose (Fingerstick) 64 mg/dL (70-99) O2 Saturation 92 % (92-99) Arterial Blood pH 7.39 (7.35-7.45) Arterial Blood pCO2 at Patient Temp 42 mmHg (35-46) Arterial Blood pO2 at Patient Temp 63 mmHg (65-108) Arterial Blood HCO3 25 mmol/L (21-28) Arterial Blood Base Excess -1 mmol/L (-3-3) FiO2 40/vent White Blood Count 24.0 x10^3/uL (4.0-11.0) Red Blood Count 2.80 x10^6/uL (4.30-5.70) Hemoglobin 8.4 g/dL (13.0-17.5) Hematocrit 25.9 % (39.0-53.0) Mean Corpuscular Volume 93 fL (79-100) Mean Corpuscular Hemoglobin 30 pg (25-35) Mean Corpuscular Hemoglobin Concent 32 g/dL (31-37) Red Cell Distribution Width 29.8 % (11.5-14.5) Platelet Count 108 x10^3/uL (140-400) Laboratory Tests Test 01/03/21 12:38 01/03/21 12:49 01/03/21 12:51 01/03/21 14:45 Glucose (Fingerstick) 68 mg/dL (70-99) 134 mg/dL (70-99) Prothrombin Time 19.3 SEC (11.7-14.0) Prothromb Time International Ratio 1.6 (0.8-1.1) White Blood Count 16.1 x10^3/uL (4.0-11.0) Red Blood Count 2.65 x10^6/uL (4.30-5.70) Hemoglobin 8.1 g/dL (13.0-17.5) Hematocrit 24.5 % (39.0-53.0) Mean Corpuscular Volume 92 fL (79-100) Mean Corpuscular Hemoglobin 31 pg (25-35) Mean Corpuscular Hemoglobin Concent 33 g/dL (31-37) Red Cell Distribution Width 28.8 % (11.5-14.5) Platelet Count 89 x10^3/uL (140-400) Magnesium Level 2.4 mg/dL (1.8-2.4) Test 01/03/21 17:36 01/03/21 17:59 01/04/21 00:23 01/04/21 00:41 Glucose (Fingerstick) 58 mg/dL (70-99) 89 mg/dL (70-99) 64 mg/dL (70-99) 171 mg/dL (70-99) Test 01/04/21 05:45 01/04/21 06:04 01/04/21 07:25 01/04/21 10:00 Sodium Level 129 mmol/L (136-145) Potassium Level 4.4 mmol/L (3.5-5.1) Chloride Level 94 mmol/L (98-107) Carbon Dioxide Level 25 mmol/L (21-32) Anion Gap 10 (6-14) Blood Urea Nitrogen 53 mg/dL (8-26) Creatinine 4.5 mg/dL (0.7-1.3) Estimated GFR (Cockcroft-Gault) 12.6 Glucose Level 76 mg/dL (70-99) Calcium Level 7.0 mg/dL (8.5-10.1) Glucose (Fingerstick) 64 mg/dL (70-99) O2 Saturation 92 % (92-99) Arterial Blood pH 7.39 (7.35-7.45) Arterial Blood pCO2 at Patient Temp 42 mmHg (35-46) Arterial Blood pO2 at Patient Temp 63 mmHg (65-108) Arterial Blood HCO3 25 mmol/L (21-28) Arterial Blood Base Excess -1 mmol/L (-3-3) FiO2 40/vent White Blood Count 24.0 x10^3/uL (4.0-11.0) Red Blood Count 2.80 x10^6/uL (4.30-5.70) Hemoglobin 8.4 g/dL (13.0-17.5) Hematocrit 25.9 % (39.0-53.0) Mean Corpuscular Volume 93 fL (79-100) Mean Corpuscular Hemoglobin 30 pg (25-35) Mean Corpuscular Hemoglobin Concent 32 g/dL (31-37) Red Cell Distribution Width 29.8 % (11.5-14.5) Platelet Count 108 x10^3/uL (140-400) Assessment/Plan Assessment/Plan respiratory failure pt is not currently candidate for tracheostomy given coagulopathy secondary to liver failure. Will remain available if pt able to stabilize. Thanks for consult! EUNICE MORRISON MD Jan 04, 2021 11:12
--- NOTE | 2021-01-04 11:15 | NUR ---
SS following up with discharge planning. SS reviewed pt chart and discussed with pt RN. Pt is currently on the vent at 40%. Pt on IV Daptomycin QOD. No sedation. Full Code. Pt continuing to have significant bleeding. Liver and Kidney failure. Physicians discussed with pt's son yesterday and pt's son requesting trach/peg. Dr. Roman Consulted and declined trach placement due to significant risk of bleeding. Physicians to discuss with pt's son today. SS will continue to follow for discharge planning.
[2021-01-04 11:29] LABS: PARTIAL THROMBOPLASTIN TIME 61 SEC (24-38); PROTHROMBIN TIME PATIENT 20.1 SEC (11.7-14.0)
[2021-01-04 12:00] LABS: D-DIMER > 20.00 ug/mlFEU (0.00-0.50); PLATELET COUNT 109 x10^3/uL (140-400)
--- NOTE | 2021-01-04 16:21 | PDOC ---
Infectious Disease Note Subjective Subjective Intubated. Unresponsive Bloody OG output d/w RN Vital Sign Vital Signs Vital Signs Date Time Temp Pulse Resp B/P (MAP) Pulse Ox O2 Delivery O2 Flow Rate FiO2 01/04/21 15:54 99 Ventilator 01/04/21 15:00 75 17 87/46 01/04/21 12:00 98.5 98.5 Physical Exam PHYSICAL EXAM GENERAL: Intubated,Unresponsive HEENT: ETT OGT in place, icteric NECK: Right IJ placed , chest wall has right HDC looks clean LUNGS: Decreased HEART: S1, S2, systolic murmur present. Pacemaker site looks okay ABDOMEN: Soft, nontender, nondistended. EXTREMITIES: Right knee prepatellar swelling, mild erythema , no drainage, DERMATOLOGIC: No generalized rash, multiple purpuric lesions both feet and upper extremity. NEUROLOGIC: Unresponsive Lines as above Labs Lab Laboratory Tests Test 01/03/21 17:36 01/03/21 17:59 01/04/21 00:23 01/04/21 00:41 Glucose (Fingerstick) 58 mg/dL (70-99) 89 mg/dL (70-99) 64 mg/dL (70-99) 171 mg/dL (70-99) Test 01/04/21 05:45 01/04/21 06:04 01/04/21 07:25 01/04/21 10:00 Sodium Level 129 mmol/L (136-145) Potassium Level 4.4 mmol/L (3.5-5.1) Chloride Level 94 mmol/L (98-107) Carbon Dioxide Level 25 mmol/L (21-32) Anion Gap 10 (6-14) Blood Urea Nitrogen 53 mg/dL (8-26) Creatinine 4.5 mg/dL (0.7-1.3) Estimated GFR (Cockcroft-Gault) 12.6 Glucose Level 76 mg/dL (70-99) Calcium Level 7.0 mg/dL (8.5-10.1) Glucose (Fingerstick) 64 mg/dL (70-99) O2 Saturation 92 % (92-99) Arterial Blood pH 7.39 (7.35-7.45) Arterial Blood pCO2 at Patient Temp 42 mmHg (35-46) Arterial Blood pO2 at Patient Temp 63 mmHg (65-108) Arterial Blood HCO3 25 mmol/L (21-28) Arterial Blood Base Excess -1 mmol/L (-3-3) FiO2 40/vent White Blood Count 24.0 x10^3/uL (4.0-11.0) Red Blood Count 2.80 x10^6/uL (4.30-5.70) Hemoglobin 8.4 g/dL (13.0-17.5) Hematocrit 25.9 % (39.0-53.0) Mean Corpuscular Volume 93 fL (79-100) Mean Corpuscular Hemoglobin 30 pg (25-35) Mean Corpuscular Hemoglobin Concent 32 g/dL (31-37) Red Cell Distribution Width 29.8 % (11.5-14.5) Platelet Count 108 x10^3/uL (140-400) Test 01/04/21 10:56 Platelet Count 109 x10^3/uL (140-400) Prothrombin Time 20.1 SEC (11.7-14.0) Prothromb Time International Ratio 1.7 (0.8-1.1) Activated Partial Thromboplast Time 61 SEC (24-38) Fibrinogen 103 mg/dL (200-440) D-Dimer (Stephanie) > 20.00 ug/mlFEU Micro BC from 12/05 negative SOO neg Objective Assessment Persistent methicillin sensitive staph aureus bacteremia 4 of 4 bottles present on admission 11/28/2020, November 30 and December 02 History of PPM.H/O recent battery exchange. Sepsis from Gram-positive bacteremia. Improving Leukocytosis and bandemia. Improving Rt Knee pain and swelling status post synovial aspirate WBC 30,000 RBC 66,000 -Cultures staph aureus Generalized weakness. Improving History of fall. Hypokalemia.Hyponatremia. History of atrial fibrillation. Hypertension. Coagulopathy last INR of 15 GUERO Plan Plan of Care Leucocytosis likely reactive from bloody output from OGT ,Cont Daptomycin repeat bc negative so far Monitor labs and cultures, worsening LFTs Bood culture remain negative, UA and urine culture not done as patient is anuric Continue local wound care as directed Critically ill Overall long-term prognosis is very poor Consider palliative care/comfort measures Per RN /D/W son who wants full code/aggressive care Gen surgery consulted for opinion for possible tracheostomy. JYOTI BALLESTEROS MD Jan 04, 2021 16:21
[2021-01-04] MEDS: NOREPINEPHRINE VIAL 32 MG in IV D5W 250ML IV PRN (18:13)
--- NOTE | 2021-01-04 18:14 | NUR ---
Richie Prosper picked up cell phone and cell phone weight loss physician today.
[2021-01-04] MEDS: ACETAMINOPHEN 325 MG TABLET. PO SCH (21:00)
[2021-01-04] MEDS: EPOETIN ALFA-EPBX for ESRD 20,000 UNIT/ML VIAL. SQ SCH (21:15)
[2021-01-05] VITALS (28 sets, daily range): BP systolic 79–135; BP diastolic 30–53
[2021-01-05] MEDS: IV DEXTROSE 5% 1,000 ML IV SCH (05:39)
[2021-01-05] MEDS: NOREPINEPHRINE VIAL 32 MG in IV D5W 250ML IV PRN ×2 (06:03→17:43)
--- NOTE | 2021-01-05 06:32 | PN ---
DATE: 01/04/2021 LOCATION: He is in room ICU, 102. SUBJECTIVE: This is an 85-year-old male remains hospitalized, initially with MSSA sepsis, right knee source subsequently developed multiorgan failure, remains in the ICU with no sedation for the last 4 days, but is not arousing. He is mechanically ventilated with FIO2 of 40%, 5 of PEEP. He has ongoing increased tube feed residuals and have asked the nurse to try Reglan today to see if this would help with the same. He is anuric and ongoing dialysis. He has multiple purpura on his right arm and feet. He currently has bloody NG drainage, but hemoglobin is stable over the last 24 hours. OBJECTIVE: VITAL SIGNS: Stable. He is afebrile. Blood pressures remain low. No urine output. CHEST: Clear. HEART: Regular. ABDOMEN: Benign. EXTREMITIES: Petechial changes. NEUROLOGIC: Remains unresponsive. LABORATORY DATA: Morning labs shows stable electrolytes. Blood gases slightly better with ____. O2 up to 63 on 40%. White count is up 24,000 this morning with ID following. Hemoglobin is actually up a little bit at 8.4. Coagulation studies showed his INR to be 1.7, PTT is elevated at 61. Fibrinogen is low at 103 and D-dimer is greater than 20. Platelet count is up to 108,000 this morning. ASSESSMENT: Multiorgan failure, triggered by methicillin-susceptible Staphylococcus aureus sepsis. Currently on supportive care with a new finding of bloody NG drainage. PLAN: Continue supportive care. I am going to contact his son once again this morning with goals going forward. Today, he has been very specific as far as wanting to do everything what he can. SHAMEKA/JAIRO GIFOFRD: Danielle TID: [id number]
[2021-01-05 06:36] LABS: CREATININE 3.1 mg/dL (0.7-1.3); GFR 19.3; POTASSIUM 4.3 mmol/L (3.5-5.1)
[2021-01-05] MEDS: DEXTROSE 50% 25 GM / 50ML DISP.SYRIN. IV PRN ×3 (06:46→17:53)
[2021-01-05 07:19] LABS: BASE EXCESS ABG -5 mmol/L (-3-3); HCO3 ABG 20 mmol/L (21-28); PCO2 ABG 38 mmHg (35-46); PO2 ABG 55 mmHg (65-108); SAT O2 ABG 88 % (92-99)
[2021-01-05 07:22] LABS: FIO2 ABG 40% AC 16/500/5
[2021-01-05 08:26] LABS: BASO % 0 % (0-3); EOS # 0.1 x10^3/uL (0.0-0.7); EOS % 0 % (0-3); HEMATOCRIT 25.6 % (39.0-53.0); HEMOGLOBIN 8.2 g/dL (13.0-17.5); LYMPH # 0.6 x10^3/uL (1.0-4.8); LYMPH % 2 % (24-48); MEAN CORPUSCULAR HEMOGLOBIN 30 pg (25-35); MEAN CORPUSCULAR HGB CONC 32 g/dL (31-37); MEAN CORPUSCULAR VOLUME 93 fL (79-100); MONO % 5 % (0-9); NEUT # 21.3 x10^3/uL (1.8-7.7); NEUT % 93 % (31-73); PLATELET COUNT 111 x10^3/uL (140-400); PROTHROMBIN TIME PATIENT 20.5 SEC (11.7-14.0); RED BLOOD COUNT 2.75 x10^6/uL (4.30-5.70); RED CELL DISTRIBUTION WIDTH 29.6 % (11.5-14.5)
[2021-01-05] MEDS: POLYVINYL ALCOHOL 1.4% OPHTH SOLUTION 15ML BOTTLE. OU PRN (08:39)
[2021-01-05] MEDS: NYSTATIN TOPICAL POWDER 15GM BOTTLE. TP SCH ×2 (08:39→21:14)
[2021-01-05] MEDS: PANTOPRAZOLE IV PUSH 40 MG VIAL. IVP SCH ×2 (08:54→21:13)
--- NOTE | 2021-01-05 09:12 | PDOC ---
MINERVA QUINONEZ PRICING STRATEGIST 01/05/21 0912: CARDIO Progress Notes Date and Time Date of Service 01/05/2021 Time of Evaluation 0900 Subjective Subjective: Other (intubated ) Vitals Vitals Vital Signs Date Time Temp Pulse Resp B/P (MAP) Pulse Ox O2 Delivery O2 Flow Rate FiO2 01/05/21 08:00 98.0 69 16 125/51 96 Ventilator 98.0 Weight Weight [ ] Input and Output Intake and Output Intake and Output 01/05/21 07:00 Intake Total 1098 ml Output Total 50 ml Balance 1048 ml IV Total 1098 ml Output Urine Total 0 ml Gastric Drainage Total 50 ml Laboratory Labs Laboratory Tests Test 01/04/21 10:00 01/04/21 10:56 01/04/21 16:30 01/05/21 06:04 White Blood Count 24.0 x10^3/uL (4.0-11.0) Red Blood Count 2.80 x10^6/uL (4.30-5.70) Hemoglobin 8.4 g/dL (13.0-17.5) Hematocrit 25.9 % (39.0-53.0) Mean Corpuscular Volume 93 fL (79-100) Mean Corpuscular Hemoglobin 30 pg (25-35) Mean Corpuscular Hemoglobin Concent 32 g/dL (31-37) Red Cell Distribution Width 29.8 % (11.5-14.5) Platelet Count 108 x10^3/uL (140-400) 109 x10^3/uL (140-400) Prothrombin Time 20.1 SEC (11.7-14.0) Prothromb Time International Ratio 1.7 (0.8-1.1) Activated Partial Thromboplast Time 61 SEC (24-38) Fibrinogen 103 mg/dL (200-440) D-Dimer (Stephanie) > 20.00 ug/mlFEU Glucose (Fingerstick) 66 mg/dL (70-99) Sodium Level 130 mmol/L (136-145) Potassium Level 4.3 mmol/L (3.5-5.1) Chloride Level 94 mmol/L (98-107) Carbon Dioxide Level 25 mmol/L (21-32) Anion Gap 11 (6-14) Blood Urea Nitrogen 34 mg/dL (8-26) Creatinine 3.1 mg/dL (0.7-1.3) Estimated GFR (Cockcroft-Gault) 19.3 Glucose Level 45 mg/dL (70-99) Calcium Level 7.0 mg/dL (8.5-10.1) Test 01/05/21 07:03 01/05/21 07:20 01/05/21 08:00 01/05/21 08:02 Glucose (Fingerstick) 106 mg/dL (70-99) 79 mg/dL (70-99) O2 Saturation 88 % (92-99) Arterial Blood pH 7.34 (7.35-7.45) Arterial Blood pCO2 at Patient Temp 38 mmHg (35-46) Arterial Blood pO2 at Patient Temp 55 mmHg (65-108) Arterial Blood HCO3 20 mmol/L (21-28) Arterial Blood Base Excess -5 mmol/L (-3-3) FiO2 40% ac 16/500/5 White Blood Count 23.0 x10^3/uL (4.0-11.0) Red Blood Count 2.75 x10^6/uL (4.30-5.70) Hemoglobin 8.2 g/dL (13.0-17.5) Hematocrit 25.6 % (39.0-53.0) Mean Corpuscular Volume 93 fL (79-100) Mean Corpuscular Hemoglobin 30 pg (25-35) Mean Corpuscular Hemoglobin Concent 32 g/dL (31-37) Red Cell Distribution Width 29.6 % (11.5-14.5) Platelet Count 111 x10^3/uL (140-400) Neutrophils (%) (Auto) 93 % (31-73) Lymphocytes (%) (Auto) 2 % (24-48) Monocytes (%) (Auto) 5 % (0-9) Eosinophils (%) (Auto) 0 % (0-3) Basophils (%) (Auto) 0 % (0-3) Neutrophils # (Auto) 21.3 x10^3/uL (1.8-7.7) Lymphocytes # (Auto) 0.6 x10^3/uL (1.0-4.8) Monocytes # (Auto) 1.0 x10^3/uL (0.0-1.1) Eosinophils # (Auto) 0.1 x10^3/uL (0.0-0.7) Basophils # (Auto) 0.0 x10^3/uL (0.0-0.2) Prothrombin Time 20.5 SEC (11.7-14.0) Prothromb Time International Ratio 1.8 (0.8-1.1) Microbiology Micro Microbiology 12/27/20 Blood Culture - Final, Complete NO GROWTH AFTER 5 DAYS 12/22/20 Gram Stain Evaluation - Final, Complete 12/22/20 Respiratory Culture - Final, Complete 12/07/20 Urine Culture - Final, Complete 12/04/20 Gram Stain - Final, Complete 12/04/20 Aerobic and Anaerobic Culture - Final, Complete Review of Systems Constitutional: yes: unresponsive Ears/Nose/Throat: Yes: no symptom reported Eyes: Yes: no symptom reported Pulmonary: Yes no symptom reported Gastrointestional: Yes: no symptom reported Genitourinary: Yes: no symptom reported Musculoskeletal: Yes: no symptom reported Skin: Yes no symptom reported Psychiatric/Neurological: Yes: no symptom reported Endocrine: Yes: no symptom reported Physical Exam HEENT: Neck Supple W Full Motion Chest: Symmetric LUNGS: Other (mechanical vent ) Heart: irregularly irregular (afib) Abdomen: Soft N/T, Other (soft, OG with bloodtinge drain currently) Extremities: Other (2-3+ bilateral LE pitting edema; LE DPs dopplerable) Neurology: other (sedated) Assessment Assessment 1. Weakness, mechanical fall with right knee effusion: s/p I & D 2. Sepsis, MSSA bacteremia: no intracardiac vegetation per SOO. 3. SSS, s/p PPM. generator change ([employer]) 11/01/2020. normal function 4. CAD: clinically stable 5. Permanent AFIB: rate controlled with intermittent v-pacing. 6. Coagulopathy: he has been off ASA and coumadin for a while. INR 1.8 7. Chronic diastolic CHF; echo with normal EF and WM 8. GUERO; on hemodialysis 9. HTN: Presently hypotensive needing pressor support 10. HLP: on statin 11. Anemia with GI bleed 12. Acute respiratory failure: intubated/vent Recommendations Poor candidate for OAC given anemia Metoprolol on hold while on levophed. monitor rhythm Fluid offloading via HD Ongoing treatment of sepsis/bacteremia per ID team Supportive care, pressor support with levophed Poor prognosis Justicifation of Admission Dx: Justifications for Admission: Justification of Admission Dx: N/A IRMA GONZALES MD 01/05/21 1642: CARDIO Progress Notes Assessment Assessment Patient seen and examined. Agree with SHOE REPAIRER's assessment and plan. Acute respiratory failure, remains intubated. Continue vent management per pulmonary team. Sepsis and hypotension needing pressor support - treat per ID team. Permanent atrial fibrillation rate controlled. Telemetry showed intermittent ventricular pacing. He is poor candidate for long-term anticoagulation. Continue hemodialysis per nephrology team. Multisystem organ failure. Poor prognosis MINERVA QUINONEZ APRN Jan 05, 2021 09:12 IRMA GONZALES MD Jan 05, 2021 16:42
--- NOTE | 2021-01-05 10:03 | PDOC ---
Date of Service: DATE: 01/05/21 TIME: 09:56 Objective: Objective: D/w nurse - no response to pain, bloody OG output slowing, plans for TPN, remains full code per son's wishes, remains on pressor. Hgb stable, noted DIC panel. Heme/onc has seen a couple times this admission. Vital Signs: Vital Signs Date Time Temp Pulse Resp B/P (MAP) Pulse Ox O2 Delivery O2 Flow Rate FiO2 01/05/21 09:06 96 Ventilator 01/05/21 08:00 98.0 69 16 125/51 98.0 Labs: Laboratory Tests Test 01/04/21 10:00 01/04/21 10:56 01/04/21 16:30 01/05/21 06:04 White Blood Count 24.0 x10^3/uL Red Blood Count 2.80 x10^6/uL Hemoglobin 8.4 g/dL Hematocrit 25.9 % Mean Corpuscular Volume 93 fL Mean Corpuscular Hemoglobin 30 pg Mean Corpuscular Hemoglobin Concent 32 g/dL Red Cell Distribution Width 29.8 % Platelet Count 108 x10^3/uL 109 x10^3/uL Prothrombin Time 20.1 SEC Prothromb Time International Ratio 1.7 Activated Partial Thromboplast Time 61 SEC Fibrinogen 103 mg/dL D-Dimer (Stephanie) > 20.00 ug/mlFEU Glucose (Fingerstick) 66 mg/dL Sodium Level 130 mmol/L Potassium Level 4.3 mmol/L Chloride Level 94 mmol/L Carbon Dioxide Level 25 mmol/L Anion Gap 11 Blood Urea Nitrogen 34 mg/dL Creatinine 3.1 mg/dL Estimated GFR (Cockcroft-Gault) 19.3 Glucose Level 45 mg/dL Calcium Level 7.0 mg/dL Test 01/05/21 07:03 01/05/21 07:20 01/05/21 08:00 01/05/21 08:02 Glucose (Fingerstick) 106 mg/dL 79 mg/dL O2 Saturation 88 % Arterial Blood pH 7.34 Arterial Blood pCO2 at Patient Temp 38 mmHg Arterial Blood pO2 at Patient Temp 55 mmHg Arterial Blood HCO3 20 mmol/L Arterial Blood Base Excess -5 mmol/L FiO2 40% ac 16/500/5 White Blood Count 23.0 x10^3/uL Red Blood Count 2.75 x10^6/uL Hemoglobin 8.2 g/dL Hematocrit 25.6 % Mean Corpuscular Volume 93 fL Mean Corpuscular Hemoglobin 30 pg Mean Corpuscular Hemoglobin Concent 32 g/dL Red Cell Distribution Width 29.6 % Platelet Count 111 x10^3/uL Neutrophils (%) (Auto) 93 % Lymphocytes (%) (Auto) 2 % Monocytes (%) (Auto) 5 % Eosinophils (%) (Auto) 0 % Basophils (%) (Auto) 0 % Neutrophils # (Auto) 21.3 x10^3/uL Lymphocytes # (Auto) 0.6 x10^3/uL Monocytes # (Auto) 1.0 x10^3/uL Eosinophils # (Auto) 0.1 x10^3/uL Basophils # (Auto) 0.0 x10^3/uL Platelet Estimate Pending Prothrombin Time 20.5 SEC Prothromb Time International Ratio 1.8 PE: GEN: intubated LUNGS: vent, clear ABD: soft SKIN: +jaundice +toe mottled NEURO/PSYCH: unresponsive A/P: MOSF -- Poor prognosis. Continue support per GI, await ongoing discussion w/ family. Called by nurse per request of other physicians wondering GI thoughts on need for EGD w/ bloody OG output. Not a good endoscopy candidate w/ MOSF, hypotension, unresponsiveness, etc. Hgb is stable, has been on acid-movers since 12/20/20 (currently IV PPI BID) - likely this is how we would treat any identifiable source of upper GI bleeding if EGD was pursued. I will review this w/ Dr. Peters again. Justicifation of Admission Dx: Justifications for Admission: Justification of Admission Dx: N/A PAMELA TREVIÑO Jan 05, 2021 10:03
--- NOTE | 2021-01-05 10:19 | PDOC ---
SURGICAL PROGRESS NOTE DATE: 01/05/21 TIME: 10:18 Subjective Pt non responsive Vital Signs Vital Signs Date Time Temp Pulse Resp B/P (MAP) Pulse Ox O2 Delivery O2 Flow Rate FiO2 01/05/21 09:06 96 Ventilator 01/05/21 08:00 98.0 69 16 125/51 98.0 I&O Intake and Output 01/05/21 07:00 Intake Total 1098 ml Output Total 50 ml Balance 1048 ml IV Total 1098 ml Output Urine Total 0 ml Gastric Drainage Total 50 ml General: Other (jaundice, orally intubated) Labs Laboratory Tests Test 01/03/21 12:38 01/03/21 12:49 01/03/21 12:51 01/03/21 14:45 Glucose (Fingerstick) 68 mg/dL (70-99) 134 mg/dL (70-99) Prothrombin Time 19.3 SEC (11.7-14.0) Prothromb Time International Ratio 1.6 (0.8-1.1) White Blood Count 16.1 x10^3/uL (4.0-11.0) Red Blood Count 2.65 x10^6/uL (4.30-5.70) Hemoglobin 8.1 g/dL (13.0-17.5) Hematocrit 24.5 % (39.0-53.0) Mean Corpuscular Volume 92 fL (79-100) Mean Corpuscular Hemoglobin 31 pg (25-35) Mean Corpuscular Hemoglobin Concent 33 g/dL (31-37) Red Cell Distribution Width 28.8 % (11.5-14.5) Platelet Count 89 x10^3/uL (140-400) Magnesium Level 2.4 mg/dL (1.8-2.4) Test 01/03/21 17:36 01/03/21 17:59 01/04/21 00:23 01/04/21 00:41 Glucose (Fingerstick) 58 mg/dL (70-99) 89 mg/dL (70-99) 64 mg/dL (70-99) 171 mg/dL (70-99) Test 01/04/21 05:45 01/04/21 06:04 01/04/21 07:25 01/04/21 10:00 Sodium Level 129 mmol/L (136-145) Potassium Level 4.4 mmol/L (3.5-5.1) Chloride Level 94 mmol/L (98-107) Carbon Dioxide Level 25 mmol/L (21-32) Anion Gap 10 (6-14) Blood Urea Nitrogen 53 mg/dL (8-26) Creatinine 4.5 mg/dL (0.7-1.3) Estimated GFR (Cockcroft-Gault) 12.6 Glucose Level 76 mg/dL (70-99) Calcium Level 7.0 mg/dL (8.5-10.1) Glucose (Fingerstick) 64 mg/dL (70-99) O2 Saturation 92 % (92-99) Arterial Blood pH 7.39 (7.35-7.45) Arterial Blood pCO2 at Patient Temp 42 mmHg (35-46) Arterial Blood pO2 at Patient Temp 63 mmHg (65-108) Arterial Blood HCO3 25 mmol/L (21-28) Arterial Blood Base Excess -1 mmol/L (-3-3) FiO2 40/vent White Blood Count 24.0 x10^3/uL (4.0-11.0) Red Blood Count 2.80 x10^6/uL (4.30-5.70) Hemoglobin 8.4 g/dL (13.0-17.5) Hematocrit 25.9 % (39.0-53.0) Mean Corpuscular Volume 93 fL (79-100) Mean Corpuscular Hemoglobin 30 pg (25-35) Mean Corpuscular Hemoglobin Concent 32 g/dL (31-37) Red Cell Distribution Width 29.8 % (11.5-14.5) Platelet Count 108 x10^3/uL (140-400) Test 01/04/21 10:56 01/04/21 16:30 01/05/21 06:04 01/05/21 07:03 Platelet Count 109 x10^3/uL (140-400) Prothrombin Time 20.1 SEC (11.7-14.0) Prothromb Time International Ratio 1.7 (0.8-1.1) Activated Partial Thromboplast Time 61 SEC (24-38) Fibrinogen 103 mg/dL (200-440) D-Dimer (Stephanie) > 20.00 ug/mlFEU Glucose (Fingerstick) 66 mg/dL (70-99) 106 mg/dL (70-99) Sodium Level 130 mmol/L (136-145) Potassium Level 4.3 mmol/L (3.5-5.1) Chloride Level 94 mmol/L (98-107) Carbon Dioxide Level 25 mmol/L (21-32) Anion Gap 11 (6-14) Blood Urea Nitrogen 34 mg/dL (8-26) Creatinine 3.1 mg/dL (0.7-1.3) Estimated GFR (Cockcroft-Gault) 19.3 Glucose Level 45 mg/dL (70-99) Calcium Level 7.0 mg/dL (8.5-10.1) Test 01/05/21 07:20 01/05/21 08:00 01/05/21 08:02 O2 Saturation 88 % (92-99) Arterial Blood pH 7.34 (7.35-7.45) Arterial Blood pCO2 at Patient Temp 38 mmHg (35-46) Arterial Blood pO2 at Patient Temp 55 mmHg (65-108) Arterial Blood HCO3 20 mmol/L (21-28) Arterial Blood Base Excess -5 mmol/L (-3-3) FiO2 40% ac 16/500/5 White Blood Count 23.0 x10^3/uL (4.0-11.0) Red Blood Count 2.75 x10^6/uL (4.30-5.70) Hemoglobin 8.2 g/dL (13.0-17.5) Hematocrit 25.6 % (39.0-53.0) Mean Corpuscular Volume 93 fL (79-100) Mean Corpuscular Hemoglobin 30 pg (25-35) Mean Corpuscular Hemoglobin Concent 32 g/dL (31-37) Red Cell Distribution Width 29.6 % (11.5-14.5) Platelet Count 111 x10^3/uL (140-400) Neutrophils (%) (Auto) 93 % (31-73) Lymphocytes (%) (Auto) 2 % (24-48) Monocytes (%) (Auto) 5 % (0-9) Eosinophils (%) (Auto) 0 % (0-3) Basophils (%) (Auto) 0 % (0-3) Neutrophils # (Auto) 21.3 x10^3/uL (1.8-7.7) Lymphocytes # (Auto) 0.6 x10^3/uL (1.0-4.8) Monocytes # (Auto) 1.0 x10^3/uL (0.0-1.1) Eosinophils # (Auto) 0.1 x10^3/uL (0.0-0.7) Basophils # (Auto) 0.0 x10^3/uL (0.0-0.2) Prothrombin Time 20.5 SEC (11.7-14.0) Prothromb Time International Ratio 1.8 (0.8-1.1) Glucose (Fingerstick) 79 mg/dL (70-99) Laboratory Tests Test 01/04/21 10:56 01/04/21 16:30 01/05/21 06:04 01/05/21 07:03 Platelet Count 109 x10^3/uL (140-400) Prothrombin Time 20.1 SEC (11.7-14.0) Prothromb Time International Ratio 1.7 (0.8-1.1) Activated Partial Thromboplast Time 61 SEC (24-38) Fibrinogen 103 mg/dL (200-440) D-Dimer (Stephanie) > 20.00 ug/mlFEU Glucose (Fingerstick) 66 mg/dL (70-99) 106 mg/dL (70-99) Sodium Level 130 mmol/L (136-145) Potassium Level 4.3 mmol/L (3.5-5.1) Chloride Level 94 mmol/L (98-107) Carbon Dioxide Level 25 mmol/L (21-32) Anion Gap 11 (6-14) Blood Urea Nitrogen 34 mg/dL (8-26) Creatinine 3.1 mg/dL (0.7-1.3) Estimated GFR (Cockcroft-Gault) 19.3 Glucose Level 45 mg/dL (70-99) Calcium Level 7.0 mg/dL (8.5-10.1) Test 01/05/21 07:20 01/05/21 08:00 01/05/21 08:02 O2 Saturation 88 % (92-99) Arterial Blood pH 7.34 (7.35-7.45) Arterial Blood pCO2 at Patient Temp 38 mmHg (35-46) Arterial Blood pO2 at Patient Temp 55 mmHg (65-108) Arterial Blood HCO3 20 mmol/L (21-28) Arterial Blood Base Excess -5 mmol/L (-3-3) FiO2 40% ac 16/500/5 White Blood Count 23.0 x10^3/uL (4.0-11.0) Red Blood Count 2.75 x10^6/uL (4.30-5.70) Hemoglobin 8.2 g/dL (13.0-17.5) Hematocrit 25.6 % (39.0-53.0) Mean Corpuscular Volume 93 fL (79-100) Mean Corpuscular Hemoglobin 30 pg (25-35) Mean Corpuscular Hemoglobin Concent 32 g/dL (31-37) Red Cell Distribution Width 29.6 % (11.5-14.5) Platelet Count 111 x10^3/uL (140-400) Neutrophils (%) (Auto) 93 % (31-73) Lymphocytes (%) (Auto) 2 % (24-48) Monocytes (%) (Auto) 5 % (0-9) Eosinophils (%) (Auto) 0 % (0-3) Basophils (%) (Auto) 0 % (0-3) Neutrophils # (Auto) 21.3 x10^3/uL (1.8-7.7) Lymphocytes # (Auto) 0.6 x10^3/uL (1.0-4.8) Monocytes # (Auto) 1.0 x10^3/uL (0.0-1.1) Eosinophils # (Auto) 0.1 x10^3/uL (0.0-0.7) Basophils # (Auto) 0.0 x10^3/uL (0.0-0.2) Prothrombin Time 20.5 SEC (11.7-14.0) Prothromb Time International Ratio 1.8 (0.8-1.1) Glucose (Fingerstick) 79 mg/dL (70-99) Problem List Problems Medical Problems: (1) Hypokalemia Status: Acute (2) Person under investigation for COVID-19 Status: Acute (3) Pneumonia Status: Acute (4) Sepsis Status: Acute Assessment/Plan resp failure remains prohibitive surgical candidate for tracheostomy cont care per primary. Justicifation of Admission Dx: Justifications for Admission: Justification of Admission Dx: N/A EUNICE MORRISON MD Jan 05, 2021 10:19
--- NOTE | 2021-01-05 10:26 | PDOC ---
PULMONARY PROGRESS NOTES DATE: 01/05/21 TIME: 10:24 Subjective Remains on vent support. Hypoxia today, oxygen requirement increased to 50%. Remains on pressor sedation off since 12/30/20 Pt. is now having Gastric bleeding Vitals Vital Signs Date Time Temp Pulse Resp B/P (MAP) Pulse Ox O2 Delivery O2 Flow Rate FiO2 01/05/21 09:06 96 Ventilator 01/05/21 08:00 98.0 69 16 125/51 98.0 Comments on vent off sedation no response ros unable to obtain HEENT: Other (nc at perrl orally intubated nose clear ) Lungs: Clear Cardiovascular: S1, S2 Abdomen: Soft Extremities: Other (Edema) Skin: Warm Labs Laboratory Tests Test 01/03/21 12:38 01/03/21 12:49 01/03/21 12:51 01/03/21 14:45 Glucose (Fingerstick) 68 mg/dL (70-99) 134 mg/dL (70-99) Prothrombin Time 19.3 SEC (11.7-14.0) Prothromb Time International Ratio 1.6 (0.8-1.1) White Blood Count 16.1 x10^3/uL (4.0-11.0) Red Blood Count 2.65 x10^6/uL (4.30-5.70) Hemoglobin 8.1 g/dL (13.0-17.5) Hematocrit 24.5 % (39.0-53.0) Mean Corpuscular Volume 92 fL (79-100) Mean Corpuscular Hemoglobin 31 pg (25-35) Mean Corpuscular Hemoglobin Concent 33 g/dL (31-37) Red Cell Distribution Width 28.8 % (11.5-14.5) Platelet Count 89 x10^3/uL (140-400) Magnesium Level 2.4 mg/dL (1.8-2.4) Test 01/03/21 17:36 01/03/21 17:59 01/04/21 00:23 01/04/21 00:41 Glucose (Fingerstick) 58 mg/dL (70-99) 89 mg/dL (70-99) 64 mg/dL (70-99) 171 mg/dL (70-99) Test 01/04/21 05:45 01/04/21 06:04 01/04/21 07:25 01/04/21 10:00 Sodium Level 129 mmol/L (136-145) Potassium Level 4.4 mmol/L (3.5-5.1) Chloride Level 94 mmol/L (98-107) Carbon Dioxide Level 25 mmol/L (21-32) Anion Gap 10 (6-14) Blood Urea Nitrogen 53 mg/dL (8-26) Creatinine 4.5 mg/dL (0.7-1.3) Estimated GFR (Cockcroft-Gault) 12.6 Glucose Level 76 mg/dL (70-99) Calcium Level 7.0 mg/dL (8.5-10.1) Glucose (Fingerstick) 64 mg/dL (70-99) O2 Saturation 92 % (92-99) Arterial Blood pH 7.39 (7.35-7.45) Arterial Blood pCO2 at Patient Temp 42 mmHg (35-46) Arterial Blood pO2 at Patient Temp 63 mmHg (65-108) Arterial Blood HCO3 25 mmol/L (21-28) Arterial Blood Base Excess -1 mmol/L (-3-3) FiO2 40/vent White Blood Count 24.0 x10^3/uL (4.0-11.0) Red Blood Count 2.80 x10^6/uL (4.30-5.70) Hemoglobin 8.4 g/dL (13.0-17.5) Hematocrit 25.9 % (39.0-53.0) Mean Corpuscular Volume 93 fL (79-100) Mean Corpuscular Hemoglobin 30 pg (25-35) Mean Corpuscular Hemoglobin Concent 32 g/dL (31-37) Red Cell Distribution Width 29.8 % (11.5-14.5) Platelet Count 108 x10^3/uL (140-400) Test 01/04/21 10:56 01/04/21 16:30 01/05/21 06:04 01/05/21 07:03 Platelet Count 109 x10^3/uL (140-400) Prothrombin Time 20.1 SEC (11.7-14.0) Prothromb Time International Ratio 1.7 (0.8-1.1) Activated Partial Thromboplast Time 61 SEC (24-38) Fibrinogen 103 mg/dL (200-440) D-Dimer (Stephanie) > 20.00 ug/mlFEU Glucose (Fingerstick) 66 mg/dL (70-99) 106 mg/dL (70-99) Sodium Level 130 mmol/L (136-145) Potassium Level 4.3 mmol/L (3.5-5.1) Chloride Level 94 mmol/L (98-107) Carbon Dioxide Level 25 mmol/L (21-32) Anion Gap 11 (6-14) Blood Urea Nitrogen 34 mg/dL (8-26) Creatinine 3.1 mg/dL (0.7-1.3) Estimated GFR (Cockcroft-Gault) 19.3 Glucose Level 45 mg/dL (70-99) Calcium Level 7.0 mg/dL (8.5-10.1) Test 01/05/21 07:20 01/05/21 08:00 01/05/21 08:02 O2 Saturation 88 % (92-99) Arterial Blood pH 7.34 (7.35-7.45) Arterial Blood pCO2 at Patient Temp 38 mmHg (35-46) Arterial Blood pO2 at Patient Temp 55 mmHg (65-108) Arterial Blood HCO3 20 mmol/L (21-28) Arterial Blood Base Excess -5 mmol/L (-3-3) FiO2 40% ac 16/500/5 White Blood Count 23.0 x10^3/uL (4.0-11.0) Red Blood Count 2.75 x10^6/uL (4.30-5.70) Hemoglobin 8.2 g/dL (13.0-17.5) Hematocrit 25.6 % (39.0-53.0) Mean Corpuscular Volume 93 fL (79-100) Mean Corpuscular Hemoglobin 30 pg (25-35) Mean Corpuscular Hemoglobin Concent 32 g/dL (31-37) Red Cell Distribution Width 29.6 % (11.5-14.5) Platelet Count 111 x10^3/uL (140-400) Neutrophils (%) (Auto) 93 % (31-73) Lymphocytes (%) (Auto) 2 % (24-48) Monocytes (%) (Auto) 5 % (0-9) Eosinophils (%) (Auto) 0 % (0-3) Basophils (%) (Auto) 0 % (0-3) Neutrophils # (Auto) 21.3 x10^3/uL (1.8-7.7) Lymphocytes # (Auto) 0.6 x10^3/uL (1.0-4.8) Monocytes # (Auto) 1.0 x10^3/uL (0.0-1.1) Eosinophils # (Auto) 0.1 x10^3/uL (0.0-0.7) Basophils # (Auto) 0.0 x10^3/uL (0.0-0.2) Prothrombin Time 20.5 SEC (11.7-14.0) Prothromb Time International Ratio 1.8 (0.8-1.1) Glucose (Fingerstick) 79 mg/dL (70-99) Laboratory Tests Test 01/04/21 10:56 01/04/21 16:30 01/05/21 06:04 01/05/21 07:03 Platelet Count 109 x10^3/uL (140-400) Prothrombin Time 20.1 SEC (11.7-14.0) Prothromb Time International Ratio 1.7 (0.8-1.1) Activated Partial Thromboplast Time 61 SEC (24-38) Fibrinogen 103 mg/dL (200-440) D-Dimer (Stephanie) > 20.00 ug/mlFEU Glucose (Fingerstick) 66 mg/dL (70-99) 106 mg/dL (70-99) Sodium Level 130 mmol/L (136-145) Potassium Level 4.3 mmol/L (3.5-5.1) Chloride Level 94 mmol/L (98-107) Carbon Dioxide Level 25 mmol/L (21-32) Anion Gap 11 (6-14) Blood Urea Nitrogen 34 mg/dL (8-26) Creatinine 3.1 mg/dL (0.7-1.3) Estimated GFR (Cockcroft-Gault) 19.3 Glucose Level 45 mg/dL (70-99) Calcium Level 7.0 mg/dL (8.5-10.1) Test 01/05/21 07:20 01/05/21 08:00 01/05/21 08:02 O2 Saturation 88 % (92-99) Arterial Blood pH 7.34 (7.35-7.45) Arterial Blood pCO2 at Patient Temp 38 mmHg (35-46) Arterial Blood pO2 at Patient Temp 55 mmHg (65-108) Arterial Blood HCO3 20 mmol/L (21-28) Arterial Blood Base Excess -5 mmol/L (-3-3) FiO2 40% ac 16/500/5 White Blood Count 23.0 x10^3/uL (4.0-11.0) Red Blood Count 2.75 x10^6/uL (4.30-5.70) Hemoglobin 8.2 g/dL (13.0-17.5) Hematocrit 25.6 % (39.0-53.0) Mean Corpuscular Volume 93 fL (79-100) Mean Corpuscular Hemoglobin 30 pg (25-35) Mean Corpuscular Hemoglobin Concent 32 g/dL (31-37) Red Cell Distribution Width 29.6 % (11.5-14.5) Platelet Count 111 x10^3/uL (140-400) Neutrophils (%) (Auto) 93 % (31-73) Lymphocytes (%) (Auto) 2 % (24-48) Monocytes (%) (Auto) 5 % (0-9) Eosinophils (%) (Auto) 0 % (0-3) Basophils (%) (Auto) 0 % (0-3) Neutrophils # (Auto) 21.3 x10^3/uL (1.8-7.7) Lymphocytes # (Auto) 0.6 x10^3/uL (1.0-4.8) Monocytes # (Auto) 1.0 x10^3/uL (0.0-1.1) Eosinophils # (Auto) 0.1 x10^3/uL (0.0-0.7) Basophils # (Auto) 0.0 x10^3/uL (0.0-0.2) Prothrombin Time 20.5 SEC (11.7-14.0) Prothromb Time International Ratio 1.8 (0.8-1.1) Glucose (Fingerstick) 79 mg/dL (70-99) Medications Active Scripts Medications Dose Route/Sig Max Daily Dose Days Date Category Nafcillin 2 Gm/ 100 Ml Inj (Nafcillin In Dextrose,Iso-Osm) 2 Gm/100 Ml Froz.piggy 2 Gm IV Q4HRS 30 12/16/20 Rx Acetaminophen 325 Mg Tablet 650 Mg PO QHS 11/28/20 Reported Aspirin 81 Mg Tab.chew 1 Tab PO DAILY 11/01/20 Reported Men's Multivitamin Tablet (Multivit-Min/Folic/Vit K/Lycop) 1 Each Tablet 1 Each PO DAILY 07/19/20 Reported Pravastatin Sodium 80 Mg Tablet 1 Tab PO DAILY 03/02/19 Reported Lasix (Furosemide) 40 Mg Tablet 1 Tab PO DAILY 01/11/14 Reported Colace (Docusate Sodium) 100 Mg Capsule 1 Cap PO PRN BID PRN 01/11/14 Reported Comments Chest x-ray reviewed dated 01/03/21 Bilateral interstitial infiltrates, no significant change Impression . IMPRESSION: 1. Acute hypoxemic respiratory failure, multifactorial. 2. Abnormal x-ray compatible with acute respiratory distress syndrome, possible pneumonia. 3. Persistent methicillin-sensitive Staph aureus bacteremia, present upon admission. 4. Right [place] joint methicillin-susceptible Staphylococcus aureus septic arthritis. 5. Metabolic toxic encephalopathy. 6. Atrial fibrillation. 7. Hypertension. 8. Liver failure. 9. Severe protein malnutrition, present upon admission. 10. Acute renal failure. 11. Septic shock 12. Lower extremity digits ecchymosis, suspect secondary to Levophed 13. Likely anoxic encephalopathy. 14. Upper GI bleed, not on any anticoagulation Plan . Updated 01/05/21 cont vent support setting reviewed titration as tolerated. 16/500/50%/5 Not responding to any commands. Has been off sedation since 30 December Hemodialysis per nephro-- Continue ABX per ID TF on hold-- pt. not tolerating and gastric bleeding--off AC and monitor HGB, PPI BID GI following, follow the recommendations regarding possible EGD Continue vasopressors to keep MAP above 65 discussed w rn Overall prognosis is poor D/W son--- explained the need for tracheostomy since he wants to continue with aggressive care. He agrees to proceed... Patient evaluated by Dr. Monteiro for tracheostomy. At present he is not a optimal candidate for the procedure Pt. remains a FULL code at this time Updated 01/04/21 cont vent support setting reviewed 02 titration as tolerated. 16/500/40%/5 Not responding to any commands. Has been off sedation since 30 December Hemodialysis per nephro--renal function worse today Continue ABX per ID TF on hold-- pt. not tolerating and gastric bleeding-- DC AC and monitor HGB, PPI BID Continue vasopressors to keep MAP above 65 prognosis poor discussed w rn Overall prognosis is poor D/W son--- explained the need for tracheostomy since he wants to continue with aggressive care. He agrees to proceed.will consult surgery. Pt. remains a FULL code at this time Updated 01/03 cont vent support setting reviewed titration as tolerated. FiO2 down to 40%. Not responding to any commands. Has been off sedation since 30 December monitor WBC hb Continue current support Nutritional support Hemodialysis per nephro prognosis poor discussed w rn Overall prognosis is poor Message left for the son. I would like to discuss advanced directives and if they still want to pursue with aggressive care, I would recommend tracheostomy and PEG tube Updated 01/02 cont vent support setting reviewed titration as tolerated. Wean FiO2 to 45% today on pepcid monitor WBC hb Continue current support Nutritional support Hemodialysis per nephro prognosis poor Repeat chest x-ray in a.m. discussed w rn Overall prognosis is poor MK WATT MD Jan 05, 2021 10:26
--- NOTE | 2021-01-05 10:39 | PDOC ---
Renal-Progress Notes Subjective Notes Notes NO CHANGES History of Present Illness Hx of present illness HAVING LOW BG Vitals Vitals Vital Signs Date Time Temp Pulse Resp B/P (MAP) Pulse Ox O2 Delivery O2 Flow Rate FiO2 01/05/21 09:06 96 Ventilator 01/05/21 08:00 98.0 69 16 125/51 98.0 Weight Weight [ ] I.O. Intake and Output Intake and Output 01/05/21 07:00 Intake Total 1098 ml Output Total 50 ml Balance 1048 ml IV Total 1098 ml Output Urine Total 0 ml Gastric Drainage Total 50 ml Labs Labs Laboratory Tests Test 01/04/21 10:56 01/04/21 16:30 01/05/21 06:04 01/05/21 07:03 Platelet Count 109 x10^3/uL (140-400) Prothrombin Time 20.1 SEC (11.7-14.0) Prothromb Time International Ratio 1.7 (0.8-1.1) Activated Partial Thromboplast Time 61 SEC (24-38) Fibrinogen 103 mg/dL (200-440) D-Dimer (Stephanie) > 20.00 ug/mlFEU Glucose (Fingerstick) 66 mg/dL (70-99) 106 mg/dL (70-99) Sodium Level 130 mmol/L (136-145) Potassium Level 4.3 mmol/L (3.5-5.1) Chloride Level 94 mmol/L (98-107) Carbon Dioxide Level 25 mmol/L (21-32) Anion Gap 11 (6-14) Blood Urea Nitrogen 34 mg/dL (8-26) Creatinine 3.1 mg/dL (0.7-1.3) Estimated GFR (Cockcroft-Gault) 19.3 Glucose Level 45 mg/dL (70-99) Calcium Level 7.0 mg/dL (8.5-10.1) Test 01/05/21 07:20 01/05/21 08:00 01/05/21 08:02 O2 Saturation 88 % (92-99) Arterial Blood pH 7.34 (7.35-7.45) Arterial Blood pCO2 at Patient Temp 38 mmHg (35-46) Arterial Blood pO2 at Patient Temp 55 mmHg (65-108) Arterial Blood HCO3 20 mmol/L (21-28) Arterial Blood Base Excess -5 mmol/L (-3-3) FiO2 40% ac 16/500/5 White Blood Count 23.0 x10^3/uL (4.0-11.0) Red Blood Count 2.75 x10^6/uL (4.30-5.70) Hemoglobin 8.2 g/dL (13.0-17.5) Hematocrit 25.6 % (39.0-53.0) Mean Corpuscular Volume 93 fL (79-100) Mean Corpuscular Hemoglobin 30 pg (25-35) Mean Corpuscular Hemoglobin Concent 32 g/dL (31-37) Red Cell Distribution Width 29.6 % (11.5-14.5) Platelet Count 111 x10^3/uL (140-400) Neutrophils (%) (Auto) 93 % (31-73) Lymphocytes (%) (Auto) 2 % (24-48) Monocytes (%) (Auto) 5 % (0-9) Eosinophils (%) (Auto) 0 % (0-3) Basophils (%) (Auto) 0 % (0-3) Neutrophils # (Auto) 21.3 x10^3/uL (1.8-7.7) Lymphocytes # (Auto) 0.6 x10^3/uL (1.0-4.8) Monocytes # (Auto) 1.0 x10^3/uL (0.0-1.1) Eosinophils # (Auto) 0.1 x10^3/uL (0.0-0.7) Basophils # (Auto) 0.0 x10^3/uL (0.0-0.2) Prothrombin Time 20.5 SEC (11.7-14.0) Prothromb Time International Ratio 1.8 (0.8-1.1) Glucose (Fingerstick) 79 mg/dL (70-99) Micro Micro Microbiology 12/27/20 Blood Culture - Final, Complete NO GROWTH AFTER 5 DAYS 12/22/20 Gram Stain Evaluation - Final, Complete 12/22/20 Respiratory Culture - Final, Complete 12/07/20 Urine Culture - Final, Complete 12/04/20 Gram Stain - Final, Complete 12/04/20 Aerobic and Anaerobic Culture - Final, Complete Review of Systems Constitutional: yes: unresponsive Ears/Nose/Throat: Yes: no symptom reported Eyes: Yes: no symptom reported Pulmonary: Yes no symptom reported Gastrointestional: Yes: no symptom reported Genitourinary: Yes: no symptom reported Musculoskeletal: Yes: no symptom reported Skin: Yes no symptom reported Psychiatric/Neurological: Yes: no symptom reported Endocrine: Yes: no symptom reported Physical Exam General Appearance: mild distress Skin: warm Respiratory: ventilator (Mode:A/C), decreased breath sounds Heart: S1S2 Abdomen: soft, bowel sounds present Genitourinary: bladder flat Extremities: no edema, edema Neurology: other (sedated) Assessment Assessment IMP HYPOTENSION GEURO DUE TO ABOVE-ATN SEPSIS RIGHT KNEE EFFUSION LIVER FAILURE SSS WITH PPM-RECENT BATTERY EXCHANGE CHRONIC AFIB ANTICOAGULATION ANEMIA ACUTE RESP FAILURE HYPOXIA ANOXIC ENCEPHALOPATHY PLAN HD TOMORROW CONT EPOGEN ANTIBIOTICS PRESSORS NEEDED D/W PULM VENT SUPPORT POOR PROGNOSIS TPN TO START WILL FOLLOW NEEDS COMFORT CARE ALFREDO EASTON MD Jan 05, 2021 10:39
--- NOTE | 2021-01-05 11:19 | PDOC ---
PROGRESS NOTES Date of Service DATE: 01/05/21 TIME: 11:18 Assessment Problems Medical Problems: (1) Hypokalemia Status: Acute (2) Person under investigation for COVID-19 Status: Acute (3) Pneumonia Status: Acute (4) Sepsis Status: Acute Patient worsened and was intubated on 12/26, son wanted full aggressive care. Metabolic encephalopathy Respiratory failure, possible fluid overload, renal failure, sepsis Plan No additional neurological studies indicated Note decision of son to pursue aggressive care including tracheostomy Discussed with other "adopted" son Subjective None Objective Vital Signs Date Time Temp Pulse Resp B/P (MAP) Pulse Ox O2 Delivery O2 Flow Rate FiO2 01/05/21 11:00 60 16 126/46 95 Ventilator 01/05/21 08:00 98.0 98.0 Intake and Output 01/05/21 07:00 Intake Total 1098 ml Output Total 50 ml Balance 1048 ml IV Total 1098 ml Output Urine Total 0 ml Gastric Drainage Total 50 ml PHYSICAL EXAM Intubated off sedation, no response to pain or voice PERRL. EOMI. CN: no focal findings. Muscle tone: normal. Muscle strength: Untestable DTR: 1+ Plantar reflex: Silent Gait: not examined in bed. Sensory exam: Not cooperative Cerebellar: Not cooperative Note necrosis of toes, patient on Levophed Review of Relevant I have reviewed the following items mel (where applicable) has been applied. Labs Laboratory Tests Test 01/03/21 12:38 01/03/21 12:49 01/03/21 12:51 01/03/21 14:45 Glucose (Fingerstick) 68 mg/dL (70-99) 134 mg/dL (70-99) Prothrombin Time 19.3 SEC (11.7-14.0) Prothromb Time International Ratio 1.6 (0.8-1.1) White Blood Count 16.1 x10^3/uL (4.0-11.0) Red Blood Count 2.65 x10^6/uL (4.30-5.70) Hemoglobin 8.1 g/dL (13.0-17.5) Hematocrit 24.5 % (39.0-53.0) Mean Corpuscular Volume 92 fL (79-100) Mean Corpuscular Hemoglobin 31 pg (25-35) Mean Corpuscular Hemoglobin Concent 33 g/dL (31-37) Red Cell Distribution Width 28.8 % (11.5-14.5) Platelet Count 89 x10^3/uL (140-400) Magnesium Level 2.4 mg/dL (1.8-2.4) Test 01/03/21 17:36 01/03/21 17:59 01/04/21 00:23 01/04/21 00:41 Glucose (Fingerstick) 58 mg/dL (70-99) 89 mg/dL (70-99) 64 mg/dL (70-99) 171 mg/dL (70-99) Test 01/04/21 05:45 01/04/21 06:04 01/04/21 07:25 01/04/21 10:00 Sodium Level 129 mmol/L (136-145) Potassium Level 4.4 mmol/L (3.5-5.1) Chloride Level 94 mmol/L (98-107) Carbon Dioxide Level 25 mmol/L (21-32) Anion Gap 10 (6-14) Blood Urea Nitrogen 53 mg/dL (8-26) Creatinine 4.5 mg/dL (0.7-1.3) Estimated GFR (Cockcroft-Gault) 12.6 Glucose Level 76 mg/dL (70-99) Calcium Level 7.0 mg/dL (8.5-10.1) Glucose (Fingerstick) 64 mg/dL (70-99) O2 Saturation 92 % (92-99) Arterial Blood pH 7.39 (7.35-7.45) Arterial Blood pCO2 at Patient Temp 42 mmHg (35-46) Arterial Blood pO2 at Patient Temp 63 mmHg (65-108) Arterial Blood HCO3 25 mmol/L (21-28) Arterial Blood Base Excess -1 mmol/L (-3-3) FiO2 40/vent White Blood Count 24.0 x10^3/uL (4.0-11.0) Red Blood Count 2.80 x10^6/uL (4.30-5.70) Hemoglobin 8.4 g/dL (13.0-17.5) Hematocrit 25.9 % (39.0-53.0) Mean Corpuscular Volume 93 fL (79-100) Mean Corpuscular Hemoglobin 30 pg (25-35) Mean Corpuscular Hemoglobin Concent 32 g/dL (31-37) Red Cell Distribution Width 29.8 % (11.5-14.5) Platelet Count 108 x10^3/uL (140-400) Test 01/04/21 10:56 01/04/21 16:30 01/05/21 06:04 01/05/21 07:03 Platelet Count 109 x10^3/uL (140-400) Prothrombin Time 20.1 SEC (11.7-14.0) Prothromb Time International Ratio 1.7 (0.8-1.1) Activated Partial Thromboplast Time 61 SEC (24-38) Fibrinogen 103 mg/dL (200-440) D-Dimer (Stephanie) > 20.00 ug/mlFEU Glucose (Fingerstick) 66 mg/dL (70-99) 106 mg/dL (70-99) Sodium Level 130 mmol/L (136-145) Potassium Level 4.3 mmol/L (3.5-5.1) Chloride Level 94 mmol/L (98-107) Carbon Dioxide Level 25 mmol/L (21-32) Anion Gap 11 (6-14) Blood Urea Nitrogen 34 mg/dL (8-26) Creatinine 3.1 mg/dL (0.7-1.3) Estimated GFR (Cockcroft-Gault) 19.3 Glucose Level 45 mg/dL (70-99) Calcium Level 7.0 mg/dL (8.5-10.1) Phosphorus Level 4.0 mg/dL (2.6-4.7) Test 01/05/21 07:20 01/05/21 08:00 01/05/21 08:02 O2 Saturation 88 % (92-99) Arterial Blood pH 7.34 (7.35-7.45) Arterial Blood pCO2 at Patient Temp 38 mmHg (35-46) Arterial Blood pO2 at Patient Temp 55 mmHg (65-108) Arterial Blood HCO3 20 mmol/L (21-28) Arterial Blood Base Excess -5 mmol/L (-3-3) FiO2 40% ac 16/500/5 White Blood Count 23.0 x10^3/uL (4.0-11.0) Red Blood Count 2.75 x10^6/uL (4.30-5.70) Hemoglobin 8.2 g/dL (13.0-17.5) Hematocrit 25.6 % (39.0-53.0) Mean Corpuscular Volume 93 fL (79-100) Mean Corpuscular Hemoglobin 30 pg (25-35) Mean Corpuscular Hemoglobin Concent 32 g/dL (31-37) Red Cell Distribution Width 29.6 % (11.5-14.5) Platelet Count 111 x10^3/uL (140-400) Neutrophils (%) (Auto) 93 % (31-73) Lymphocytes (%) (Auto) 2 % (24-48) Monocytes (%) (Auto) 5 % (0-9) Eosinophils (%) (Auto) 0 % (0-3) Basophils (%) (Auto) 0 % (0-3) Neutrophils # (Auto) 21.3 x10^3/uL (1.8-7.7) Lymphocytes # (Auto) 0.6 x10^3/uL (1.0-4.8) Monocytes # (Auto) 1.0 x10^3/uL (0.0-1.1) Eosinophils # (Auto) 0.1 x10^3/uL (0.0-0.7) Basophils # (Auto) 0.0 x10^3/uL (0.0-0.2) Prothrombin Time 20.5 SEC (11.7-14.0) Prothromb Time International Ratio 1.8 (0.8-1.1) Glucose (Fingerstick) 79 mg/dL (70-99) Laboratory Tests Test 01/04/21 16:30 01/05/21 06:04 01/05/21 07:03 01/05/21 07:20 Glucose (Fingerstick) 66 mg/dL (70-99) 106 mg/dL (70-99) Sodium Level 130 mmol/L (136-145) Potassium Level 4.3 mmol/L (3.5-5.1) Chloride Level 94 mmol/L (98-107) Carbon Dioxide Level 25 mmol/L (21-32) Anion Gap 11 (6-14) Blood Urea Nitrogen 34 mg/dL (8-26) Creatinine 3.1 mg/dL (0.7-1.3) Estimated GFR (Cockcroft-Gault) 19.3 Glucose Level 45 mg/dL (70-99) Calcium Level 7.0 mg/dL (8.5-10.1) Phosphorus Level 4.0 mg/dL (2.6-4.7) O2 Saturation 88 % (92-99) Arterial Blood pH 7.34 (7.35-7.45) Arterial Blood pCO2 at Patient Temp 38 mmHg (35-46) Arterial Blood pO2 at Patient Temp 55 mmHg (65-108) Arterial Blood HCO3 20 mmol/L (21-28) Arterial Blood Base Excess -5 mmol/L (-3-3) FiO2 40% ac /5 Test 01/05/21 08:00 01/05/21 08:02 White Blood Count 23.0 x10^3/uL (4.0-11.0) Red Blood Count 2.75 x10^6/uL (4.30-5.70) Hemoglobin 8.2 g/dL (13.0-17.5) Hematocrit 25.6 % (39.0-53.0) Mean Corpuscular Volume 93 fL (79-100) Mean Corpuscular Hemoglobin 30 pg (25-35) Mean Corpuscular Hemoglobin Concent 32 g/dL (31-37) Red Cell Distribution Width 29.6 % (11.5-14.5) Platelet Count 111 x10^3/uL (140-400) Neutrophils (%) (Auto) 93 % (31-73) Lymphocytes (%) (Auto) 2 % (24-48) Monocytes (%) (Auto) 5 % (0-9) Eosinophils (%) (Auto) 0 % (0-3) Basophils (%) (Auto) 0 % (0-3) Neutrophils # (Auto) 21.3 x10^3/uL (1.8-7.7) Lymphocytes # (Auto) 0.6 x10^3/uL (1.0-4.8) Monocytes # (Auto) 1.0 x10^3/uL (0.0-1.1) Eosinophils # (Auto) 0.1 x10^3/uL (0.0-0.7) Basophils # (Auto) 0.0 x10^3/uL (0.0-0.2) Prothrombin Time 20.5 SEC (11.7-14.0) Prothromb Time International Ratio 1.8 (0.8-1.1) Glucose (Fingerstick) 79 mg/dL (70-99) Microbiology 12/27/20 Blood Culture - Final, Complete NO GROWTH AFTER 5 DAYS 12/22/20 Gram Stain Evaluation - Final, Complete 12/22/20 Respiratory Culture - Final, Complete 12/07/20 Urine Culture - Final, Complete 12/04/20 Gram Stain - Final, Complete 12/04/20 Aerobic and Anaerobic Culture - Final, Complete Medications Current Medications Ceftriaxone Sodium (Rocephin) 1 gm 1X ONCE IVP Last administered on 11/28/20at 13:30; Start 11/28/20 at 13:30; Stop 11/28/20 at 13:31; Status DC Azithromycin 500 mg/Sodium Chloride 250 ml @ 250 mls/hr 1X ONCE IV ; Start 11/28/20 at 13:30; Stop 11/28/20 at 14:29; Status UNV Azithromycin 250 ml @ 250 mls/hr 1X ONCE IV Last administered on 11/28/20at 15:11; Start 11/28/20 at 13:30; Stop 11/28/20 at 14:29; Status DC Acetaminophen (Tylenol) 1,000 mg 1X ONCE PO Last administered on 11/28/20at 15:10; Start 11/28/20 at 14:45; Stop 11/28/20 at 14:46; Status DC Potassium Chloride/Water 100 ml @ 50 mls/hr 1X ONCE IV Last administered on 11/28/20at 16:20; Start 11/28/20 at 14:45; Stop 11/28/20 at 16:44; Status DC Potassium Chloride (Klor-Con) 40 meq 1X ONCE PO Last administered on 11/28/20at 16:21; Start 11/28/20 at 14:45; Stop 11/28/20 at 14:46; Status DC Sodium Chloride 1,000 ml @ 1,000 mls/hr 1X ONCE IV Last administered on 11/28/20at 17:41; Start 11/28/20 at 17:45; Stop 11/28/20 at 18:44; Status DC Acetaminophen (Tylenol) 650 mg PRN Q6HRS PRN PO MILD PAIN / TEMP > 100.3'F Last administered on 11/28/20at 20:36; Start 11/28/20 at 20:30 Influenza Virus Vaccine Quadrival (Flulaval Quad Syringe) 0.5 ml ONCE ONCE VAX IM Last administered on 11/29/20at 10:06; Start 11/29/20 at 09:00; Stop 11/29/20 at 09:01; Status DC Acetaminophen/ Hydrocodone Bitart (Lortab 5/325) 1 tab PRN Q4HRS PRN PO PAIN mod/severe Last administered on 12/05/20at 17:38; Start 11/28/20 at 22:45; Stop 12/05/20 at 19:50; Status DC Ceftriaxone Sodium (Rocephin) 1 gm Q24H IVP ; Start 11/29/20 at 13:00; Stop 11/29/20 at 13:11; Status DC Azithromycin 250 ml @ 250 mls/hr DAILY ONCE IV ; Start 11/30/20 at 09:00; Stop 11/30/20 at 09:59; Status UNV Azithromycin 500 mg/Sodium Chloride 250 ml @ 250 mls/hr Q24H IV ; Start 11/29/20 at 15:00; Stop 11/29/20 at 13:50; Status DC Acetaminophen (Tylenol) 650 mg QHS PO Last administered on 01/02/21at 21:42; Start 11/29/20 at 21:00 Aspirin (Aspirin Chewable) 81 mg DAILY PO Last administered on 12/19/20at 12:40; Start 11/30/20 at 09:00; Stop 12/19/20 at 14:26; Status DC Docusate Sodium (Colace) 100 mg PRN BID PRN PO HARD STOOLS Last administered on 12/01/20at 12:10; Start 11/29/20 at 09:45; Stop 12/17/20 at 17:41; Status DC Warfarin Sodium (Coumadin) 3.75 mg DAILY PO ; Start 11/30/20 at 09:00; Status UNV Atorvastatin Calcium (Lipitor) 20 mg QHS PO Last administered on 12/18/20at 20:29; Start 11/29/20 at 21:00; Stop 12/19/20 at 14:26; Status DC Daptomycin 500 mg/ Sodium Chloride 50 ml @ 100 mls/hr Q24H IV Last administered on 11/30/20at 13:19; Start 11/29/20 at 13:00; Stop 12/01/20 at 07:32; Status DC Ceftriaxone Sodium (Rocephin) 2 gm Q24H IVP Last administered on 11/30/20at 13:21; Start 11/29/20 at 14:00; Stop 12/01/20 at 09:19; Status DC Lactobacillus Rhamnosus (Culturelle) 1 cap BID PO Last administered on 12/24/20at 22:38; Start 11/29/20 at 21:00; Stop 12/27/20 at 21:38; Status DC Daptomycin 580 mg/ Sodium Chloride 50 ml @ 100 mls/hr Q24H IV Last administered on 12/01/20at 08:52; Start 12/01/20 at 07:30; Stop 12/01/20 at 09:19 ; Status DC Nafcillin Sodium 2 gm/Dextrose 100 ml @ 200 mls/hr Q4HRS IV Last administered on 12/21/20at 04:11; Start 12/01/20 at 10:00; Stop 12/21/20 at 08:19; Status DC Carvedilol (Coreg) 6.25 mg DAILY PO ; Start 12/01/20 at 12:00; Stop 12/01/20 at 12:00; Status DC Furosemide (Lasix) 40 mg DAILY PO Last administered on 12/07/20at 08:28; Start 12/01/20 at 12:00; Stop 12/07/20 at 14:46; Status DC Potassium Chloride (Klor-Con) 20 meq DAILYWBKFT PO Last administered on 12/07/20at 08:28; Start 12/02/20 at 08:00; Stop 12/07/20 at 14:46; Status DC Potassium Chloride (Klor-Con) 20 meq 1X ONCE PO Last administered on 12/01/20at 12:12; Start 12/01/20 at 11:15; Stop 12/01/20 at 11:27; Status DC Carvedilol (Coreg) 3.125 mg BIDWMEALS PO Last administered on 12/03/20at 16:39; Start 12/01/20 at 12:00; Stop 12/05/20 at 20:11; Status DC Lidocaine HCl (Lidocaine 1% 20ml Vial) 10 ml 1X ONCE INJ ; Start 12/01/20 at 16:00; Stop 12/01/20 at 16:01; Status DC Ringer's Solution 1,000 ml @ 50 mls/hr Q20H IV Last administered on 12/05/20at 12:10; Start 12/05/20 at 07:00; Stop 12/05/20 at 18:59; Status DC Phytonadione (Vitamin K Ampule) 10 mg 1X ONCE SQ Last administered on 12/02/20at 11:09; Start 12/02/20 at 10:45; Stop 12/02/20 at 10:46; Status DC Sodium Chloride (Saline Mist Nasal) 1 hiro PRN Q1HR PRN NS NASAL CONGESTION Last administered on 12/20/20at 23:52; Start 12/02/20 at 20:45 Phytonadione (Vitamin K Ampule) 10 mg 1X ONCE SQ Last administered on 12/03/20at 11:17; Start 12/03/20 at 11:00; Stop 12/03/20 at 11:01; Status DC Docusate Sodium (Colace) 100 mg BID PO Last administered on 12/20/20at 08:52; Start 12/03/20 at 21:00; Stop 12/21/20 at 11:19; Status DC Polyethylene Glycol (miraLAX PACKET) 17 gm PRN DAILY PRN PO CONSTIPATION Last administered on 12/30/20at 07:24; Start 12/03/20 at 19:00 Fentanyl Citrate (Fentanyl 2ml Vial) 25 mcg PRN Q5MIN PRN IVP MILD PAIN 1-3; Start 12/04/20 at 09:30; Stop 12/05/20 at 09:29; Status DC Fentanyl Citrate (Fentanyl 2ml Vial) 50 mcg PRN Q5MIN PRN IVP MODERATE PAIN 4- 6; Start 12/04/20 at 09:30; Stop 12/05/20 at 09:29; Status DC Morphine Sulfate (Morphine Sulfate) 1 mg PRN Q10MIN PRN IVP SEVERE PAIN 7-10; Start 12/04/20 at 09:30; Stop 12/05/20 at 09:29; Status DC Ringer's Solution 1,000 ml @ 30 mls/hr Q24H IV ; Start 12/04/20 at 09:30; Stop 12/04/20 at 21:29; Status DC Hydromorphone HCl (Dilaudid) 0.5 mg PRN Q10MIN PRN IVP SEVERE PAIN 7-10, 2nd CHOICE; Start 12/04/20 at 09:30; Stop 12/05/20 at 09:29; Status DC Prochlorperazine Edisylate (Compazine) 5 mg PACU PRN PRN IVP NAUSEA, MRX1; Start 12/04/20 at 09:30; Stop 12/05/20 at 09:29; Status DC Propofol (Diprivan) 200 mg STK-MED ONCE IV ; Start 12/04/20 at 10:43; Stop 12/04/20 at 10:43; Status DC Lidocaine HCl (Lidocaine Pf 2% Vial) 5 ml STK-MED ONCE .ROUTE ; Start 12/04/20 at 10:43; Stop 12/04/20 at 10:43; Status DC Phenylephrine HCl (PHENYLEPHRINE in 0.9% NACL PF) 1 mg STK-MED ONCE IV ; Start 12/04/20 at 10:43; Stop 12/04/20 at 10:43; Status DC Sevoflurane (Ultane) 60 ml STK-MED ONCE IH ; Start 12/04/20 at 11:14; Stop 12/04/20 at 11:14; Status DC Dexamethasone Sodium Phosphate (Decadron) 4 mg STK-MED ONCE .ROUTE ; Start 12/04/20 at 11:26; Stop 12/04/20 at 11:26; Status DC Ondansetron HCl (Zofran) 4 mg STK-MED ONCE .ROUTE ; Start 12/04/20 at 11:26; Stop 12/04/20 at 11:26; Status DC Fentanyl Citrate (Fentanyl 2ml Vial) 100 mcg STK-MED ONCE .ROUTE ; Start 12/04/20 at 11:26; Stop 12/04/20 at 11:26; Status DC Daptomycin 500 mg/ Sodium Chloride 50 ml @ 100 mls/hr Q24H IV Last administere d on 12/11/20at 10:46; Start 12/05/20 at 10:00; Stop 12/11/20 at 17:00; Status DC Propofol (Diprivan) 200 mg STK-MED ONCE IV ; Start 12/05/20 at 09:29; Stop 12/05/20 at 09:30; Status DC Lidocaine HCl (Viscous Lidocaine) 15 ml STK-MED ONCE .ROUTE ; Start 12/05/20 at 10:06; Stop 12/05/20 at 10:06; Status DC Lidocaine HCl (Xylocaine 2% Topical 30gm Tube) 30 hiro STK-MED ONCE TP ; Start 12/05/20 at 10:06; Stop 12/05/20 at 10:06; Status DC Benzocaine (Hurricaine One) 1 spray STK-MED ONCE .ROUTE ; Start 12/05/20 at 10:06; Stop 12/05/20 at 10:07; Status DC Acetaminophen/ Hydrocodone Bitart (Lortab ) 1 tab PRN Q4HRS PRN PO MODERATE TO SEVERE PAIN Last administered on 12/24/20at 14:02; Start 12/05/20 at 20:00 Zolpidem Tartrate (Ambien) 5 mg PRN QHS PRN PO INSOMNIA Last administered on 12/23/20at 22:11; Start 12/05/20 at 20:00 Sodium Chloride 1,000 ml @ 1,000 mls/hr 1X ONCE IV Last administered on 12/06/20at 09:32; Start 12/06/20 at 09:15; Stop 12/06/20 at 10:14; Status DC Sodium Chloride 1,000 ml @ 100 mls/hr 1X ONCE IV Last administered on 12/06/20at 15:30; Start 12/06/20 at 13:15; Stop 12/06/20 at 23:14; Status DC Sodium Chloride 1,000 ml @ 100 mls/hr 1X ONCE IV Last administered on 12/07/20at 13:24; Start 12/07/20 at 11:45; Stop 12/08/20 at 10:55; Status DC Metoprolol Succinate (Toprol Xl) 25 mg DAILY PO Last administered on 12/24/20at 08:41; Start 12/09/20 at 09:00; Stop 12/25/20 at 10:43; Status DC Potassium Chloride (Klor-Con) 20 meq 1X ONCE PO Last administered on at 18:52; Start 12/10/20 at 19:00; Stop 12/10/20 at 19:01; Status DC Daptomycin 500 mg/ Sodium Chloride 50 ml @ 100 mls/hr Q48H IV Last administered on 12/25/20at 17:33; Start 12/13/20 at 10:00; Stop 12/26/20 at 11:55; Status DC Lidocaine HCl (Buffered Lidocaine 1%) 3 ml STK-MED ONCE .ROUTE ; Start 12/12/20 at 10:27; Stop 12/12/20 at 10:27; Status DC Sodium Chloride 1,000 ml @ 1,000 mls/hr Q1H PRN IV hypotension; Start 12/12/20 at 12:00; Stop 12/12/20 at 17:59; Status DC Albumin Human 200 ml @ 200 mls/hr 1X PRN PRN IV Hypotension; Start 12/12/20 at 12:00; Stop 12/12/20 at 17:59; Status DC Sodium Chloride (Normal Saline Flush) 10 ml 1X PRN PRN IV AP catheter pack; Start 12/12/20 at 12:00; Stop 12/13/20 at 11:59; Status DC Sodium Chloride (Normal Saline Flush) 10 ml 1X PRN PRN IV QUALIT[employer]GER catheter pack; Start 12/12/20 at 12:00; Stop 12/13/20 at 11:59; Status DC Info (PHARMACY MONITORING -- do not chart) 1 each PRN DAILY PRN MC SEE COMMENTS; Start 12/12/20 at 12:00; Status UNV Info (PHARMACY MONITORING -- do not chart) 1 each PRN DAILY PRN MC SEE COMMENTS; Start 12/12/20 at 12:00; Status Cancel Lidocaine HCl (Buffered Lidocaine 1%) 4 ml 1X ONCE INJ Last administered on 12/12/20at 13:11; Start 12/12/20 at 13:15; Stop 12/12/20 at 13:18; Status DC Sodium Chloride 1,000 ml @ 1,000 mls/hr Q1H PRN IV hypotension; Start 12/13/20 at 09:30; Stop 12/13/20 at 15:29; Status DC Sodium Chloride 1,000 ml @ 400 mls/hr Q2H30M PRN IV PATENCY; Start 12/13/20 at 09:30; Stop 12/13/20 at 21:29; Status DC Info (PHARMACY MONITORING -- do not chart) 1 each PRN DAILY PRN MC SEE COMMENTS; Start 12/13/20 at 09:30; Status UNV Info (PHARMACY MONITORING -- do not chart) 1 each PRN DAILY PRN MC SEE COMMENTS; Start 12/13/20 at 09:30; Status UNV Epoetin Krishna-epbx (RETACRIT for ESRD PTS) 10,000 unit MoWeFr@2100 SQ Last administered on 01/04/21at 21:15; Start 12/14/20 at 21:00 Sodium Chloride 1,000 ml @ 1,000 mls/hr Q1H PRN IV hypotension; Start 12/15/20 at 07:00; Stop 12/15/20 at 12:59; Status DC Sodium Chloride 1,000 ml @ 400 mls/hr Q2H30M PRN IV PATENCY; Start 12/15/20 at 07:00; Stop 12/15/20 at 18:59; Status DC Info (PHARMACY MONITORING -- do not chart) 1 each PRN DAILY PRN MC SEE COMMENTS; Start 12/15/20 at 07:00; Stop 12/15/20 at 07:00; Status DC Info (PHARMACY MONITORING -- do not chart) 1 each PRN DAILY PRN MC SEE COMMENTS; Start 12/15/20 at 07:00; Stop 12/15/20 at 07:00; Status DC Sodium Chloride 1,000 ml @ 1,000 mls/hr Q1H PRN IV hypotension; Start 12/17/20 at 10:30; Stop 12/17/20 at 16:29; Status DC Albumin Human 200 ml @ 200 mls/hr 1X PRN PRN IV Hypotension Last administered on 12/17/20at 11:15; Start 12/17/20 at 10:30; Stop 12/17/20 at 16:29; Status DC Sodium Chloride 1,000 ml @ 400 mls/hr Q2H30M PRN IV PATENCY; Start 12/17/20 at 10:30; Stop 12/17/20 at 22:29; Status DC Info (PHARMACY MONITORING -- do not chart) 1 each PRN DAILY PRN MC SEE COMMENTS; Start 12/17/20 at 11:15; Stop 12/19/20 at 13:24; Status DC Info (PHARMACY MONITORING -- do not chart) 1 each PRN DAILY PRN MC SEE COMMENTS; Start 12/17/20 at 11:15; Status UNV Docusate Sodium (Colace) 100 mg PRN BID PRN PO HARD STOOLS Last administered on 12/30/20at 07:24; Start 12/17/20 at 17:45 Sodium Chloride 1,000 ml @ 30 mls/hr Q24H IV Last administered on 12/21/20at 20:34; Start 12/18/20 at 18:45; Stop 12/27/20 at 13:08; Status DC Sodium Chloride 1,000 ml @ 1,000 mls/hr Q1H PRN IV hypotension; Start 12/19/20 at 08:30; Stop 12/19/20 at 14:29; Status DC Albumin Human 100 ml @ 100 mls/hr 1X PRN PRN IV Hypotension; Start 12/19/20 at 08:30; Stop 12/19/20 at 14:29; Status DC Sodium Chloride 1,000 ml @ 400 mls/hr Q2H30M PRN IV PATENCY; Start 12/19/20 at 08:30; Stop 12/19/20 at 20:29; Status DC Info (PHARMACY MONITORING -- do not chart) 1 each PRN DAILY PRN MC SEE COMMENTS; Start 12/19/20 at 08:30; Stop 12/19/20 at 13:24; Status DC Info (PHARMACY MONITORING -- do not chart) 1 each PRN DAILY PRN MC SEE COMMENTS; Start 12/19/20 at 08:30; Stop 12/21/20 at 07:55; Status DC Atorvastatin Calcium (Lipitor) 40 mg QHS PO Last administered on 01/01/21at 20:57; Start 12/19/20 at 21:00; Stop 01/02/21 at 10:04; Status DC Pantoprazole Sodium (Protonix) 40 mg DAILYAC PO Last administered on 12/24/20at 06:15; Start 12/20/20 at 09:15; Stop 12/26/20 at 10:17; Status DC Sodium Chloride 1,000 ml @ 1,000 mls/hr Q1H PRN IV hypotension; Start 12/21/20 at 08:00; Stop 12/21/20 at 13:59; Status DC Sodium Chloride 1,000 ml @ 400 mls/hr Q2H30M PRN IV PATENCY; Start 12/21/20 at 08:00; Stop 12/21/20 at 19:59; Status DC Info (PHARMACY MONITORING -- do not chart) 1 each PRN DAILY PRN MC SEE COMMENTS; Start 12/21/20 at 08:00; Stop 12/21/20 at 07:54; Status DC Info (PHARMACY MONITORING -- do not chart) 1 each PRN DAILY PRN MC SEE COMMENTS; Start 12/21/20 at 08:00; Status Cancel Cefepime HCl (Maxipime) 1 gm Q24H IVP Last administered on 12/25/20at 12:32; Start 12/22/20 at 11:00; Stop 12/26/20 at 11:56; Status DC Furosemide (Lasix) 40 mg 1X ONCE IVP Last administered on 12/22/20at 11:17; Start 12/22/20 at 11:15; Stop 12/22/20 at 11:16; Status DC Sodium Chloride 1,000 ml @ 1,000 mls/hr Q1H PRN IV hypotension; Start 12/23/20 at 10:15; Stop 12/23/20 at 16:14; Status DC Albumin Human 200 ml @ 200 mls/hr 1X PRN PRN IV Hypotension; Start 12/23/20 at 10:15; Stop 12/23/20 at 16:14; Status DC Sodium Chloride (Normal Saline Flush) 10 ml 1X PRN PRN IV AP catheter pack; Start 12/23/20 at 10:15; Stop 12/24/20 at 10:14; Status DC Sodium Chloride (Normal Saline Flush) 10 ml 1X PRN PRN IV [employer] catheter pack; Start 12/23/20 at 10:15; Stop 12/24/20 at 10:14; Status DC Sodium Chloride 1,000 ml @ 400 mls/hr Q2H30M PRN IV PATENCY; Start 12/23/20 at 10:15; Stop 12/23/20 at 22:14; Status DC Info (PHARMACY MONITORING -- do not chart) 1 each PRN DAILY PRN MC SEE COMMENTS; Start 12/23/20 at 10:15; Status UNV Info (PHARMACY MONITORING -- do not chart) 1 each PRN DAILY PRN MC SEE COM MENTS; Start 12/23/20 at 10:15; Status Cancel Aspirin (Ecotrin) 81 mg [id number] PO Last administered on 12/24/20at 08:40; S tart 12/23/20 at 13:00; Stop 12/27/20 at 10:33; Status DC Cefazolin Sodium/ Dextrose 50 ml @ 100 mls/hr 1X PREOP PRN IV PRIOR TO PROCEDURE Last administered on 12/23/20at 14:46; Start 12/23/20 at 14:00; Stop 12/24/20 at 13:59; Status DC Midazolam HCl (Versed) 2 mg 1X ONCE IV Last administered on 12/23/20at 14:00; Start 12/23/20 at 14:00; Stop 12/23/20 at 14:06; Status DC Fentanyl Citrate (Fentanyl 2ml Vial) 100 mcg 1X ONCE IV Last administered on 12/23/20at 14:00; Start 12/23/20 at 14:00; Stop 12/23/20 at 14:06; Status DC Cefazolin Sodium/ Dextrose 50 ml @ As Directed STK-MED ONCE IV ; Start 12/23/20 at 13:57; Stop 12/23/20 at 13:58; Status DC Lidocaine/ Epinephrine (LIDOCAINE 1%-EPI 1:100,000 Multi-Dose) 20 ml STK-MED ONCE .ROUTE ; Start 12/23/20 at 13:58; Stop 12/23/20 at 13:58; Status DC Lidocaine/ Epinephrine (LIDOCAINE 1%-EPI 1:100,000 Multi-Dose) 20 ml 1X ONCE INJ Last administered on 12/23/20at 14:15; Start 12/23/20 at 14:15; Stop 12/23/20 at 14:16; Status DC Linezolid (Zyvox) 600 mg BID PO Last administered on 12/24/20at 22:38; Start 12/24/20 at 11:00; Stop 12/25/20 at 10:48; Status DC Magnesium Sulfate 50 ml @ 25 mls/hr PRN DAILY PRN IV for Mag < 1.7 on am labs; Start 12/25/20 at 09:15 Dextrose (Dextrose 50%-Water Syringe) 25 gm STK-MED ONCE IV ; Start 12/25/20 at 22:23; Stop 12/25/20 at 22:23; Status DC Furosemide (Lasix) 40 mg 1X ONCE IVP Last administered on 12/25/20at 23:16; Start 12/25/20 at 23:00; Stop 12/25/20 at 23:05; Status DC Sodium Chloride 1,000 ml @ 1,000 mls/hr Q1H PRN IV hypotension; Start 12/26/20 at 08:45; Stop 12/26/20 at 14:44; Status DC Albumin Human 200 ml @ 200 mls/hr 1X ONCE IV Last administered on 12/27/20at 08:58; Start 12/26/20 at 08:45; Stop 12/26/20 at 09:44; Status DC Sodium Chloride 1,000 ml @ 400 mls/hr Q2H30M PRN IV PATENCY; Start 12/26/20 at 08:45; Stop 12/26/20 at 20:44; Status DC Info (PHARMACY MONITORING -- do not chart) 1 each PRN DAILY PRN MC SEE COMMENTS; Start 12/26/20 at 08:45; Status Cancel Pantoprazole Sodium (PROTONIX VIAL for IV PUSH) 40 mg DAILYAC IVP Last administered on 01/03/21at 10:24; Start 12/27/20 at 07:30; Stop 01/04/21 at 07 :46; Status DC Dextrose (Dextrose 50%-Water Syringe) 25 gm STK-MED ONCE IV ; Start 12/26/20 at 10:54; Stop 12/26/20 at 10:55; Status DC Cefazolin Sodium (Ancef) 1 gm Q24H IVP Last administered on 12/26/20at 15:29; Start 12/26/20 at 16:00; Stop 12/27/20 at 10:37; Status DC Dextrose (Dextrose 50%-Water Syringe) 25 gm STK-MED ONCE IV ; Start 12/25/20 at 22:30; Stop 12/26/20 at 14:10; Status DC Norepinephrine Bitartrate 8 mg/ Dextrose 258 ml @ 18.286 mls/ hr CONT PRN IV PER PROTOCOL Last administered on 12/29/20at 05:57; Start 12/26/20 at 19:15; Stop 12/29/20 at 10:50; Status DC Fentanyl Citrate 30 ml @ 0 mls/hr CONT PRN IV SEE PROTOCOL Last administered on 12/30/20at 02:16; Start 12/26/20 at 19:15 Midazolam HCl 100 ml @ 0 mls/hr CONT PRN IV SEE PROTOCOL Last administered on 12/28/20at 22:31; Start 12/26/20 at 19:15 Vecuronium [place] (Norcuron Bolus) 6 mg PRN 1X PRN IV VENT INDUCTION; Start 12/26/20 at 19:15; Stop 12/27/20 at 19:14; Status DC Glycerin/ Hypromellose/ Polyethylene (Artificial Tears) 1 drop PRN Q1HR PRN OU DRY EYE Last administered on 01/05/21at 08:39; Start 12/26/20 at 19:15 Dexmedetomidine HCl 400 mcg/ Sodium Chloride 100 ml @ 4.725 mls/ hr CONT PRN IV PER PROTOCOL; Start 12/26/20 at 19:15 Midazolam HCl (Versed) 5 mg PRN 1X PRN IVP VENT INDUCTION; Start 12/26/20 at 19:15; Stop 12/27/20 at 19:14; Status DC Sodium Chloride 500 ml @ 500 mls/hr 1X PRN PRN IV SEE COMMENTS; Start 12/26/20 at 19:15 Atropine Sulfate (ATROPINE 0.5mg SYRINGE) 0.5 mg PRN Q5MIN PRN IV SEE COMMENTS; Start 12/26/20 at 19:15 Famotidine (Pepcid Vial) 20 mg BID IVP Last administered on 12/27/20at 09:00; Start 12/26/20 at 21:00; Stop 12/27/20 at 10:19; Status DC Ringer's Solution 1,000 ml @ 100 mls/hr Q10H IV Last administered on 12/28/20at 04:37; Start 12/26/20 at 19:30; Stop 12/29/20 at 10:28; Status DC Etomidate (Amidate) 20 mg STK-MED ONCE IV ; Start 12/26/20 at 19:19; Stop 12/26/20 at 19:19; Status DC Succinylcholine Chloride (Anectine) 200 mg 1X ONCE IV Last administered on 12/26/20at 19:38; Start 12/26/20 at 21:15; Stop 12/26/20 at 21:16; Status DC Etomidate (Amidate) 20 mg 1X ONCE IV Last administered on 12/26/20at 19:38; Start 12/26/20 at 21:15; Stop 12/26/20 at 21:16; Status DC Dextrose (Dextrose 50%-Water Syringe) 12.5 gm PRN Q15MIN PRN IV SEE COMMENTS Last administered on 01/05/21at 06:46; Start 12/27/20 at 07:30 Sodium Chloride 1,000 ml @ 1,000 mls/hr Q1H PRN IV hypotension; Start 12/27/20 at 08:15; Stop 12/27/20 at 14:14; Status DC Albumin Human 200 ml @ 200 mls/hr 1X PRN PRN IV Hypotension; Start 12/27/20 at 08:15; Stop 12/27/20 at 14:14; Status DC Sodium Chloride 1,000 ml @ 400 mls/hr Q2H30M PRN IV PATENCY; Start 12/27/20 at 08:15; Stop 12/27/20 at 20:14; Status DC Info (PHARMACY MONITORING -- do not chart) 1 each PRN DAILY PRN SEE [facility]; Start 12/27/20 at 08:15; Stop 12/28/20 at 09:54; Status DC Dextrose (Dextrose 50%-Water Syringe) 25 gm STK-MED ONCE IV ; Start 12/26/20 at 11:00; Stop 12/27/20 at 08:58; Status DC Phytonadione (Vitamin K Ampule) 10 mg 1X ONCE SQ Last administered on 12/27/20at 11:08; Start 12/27/20 at 09:45; Stop 12/27/20 at 09:49; Status DC Daptomycin 510 mg/ Sodium Chloride 50 ml @ 100 mls/hr QODAY IV Last administered on 01/04/21at 08:33; Start 12/27/20 at 12:00 Meropenem 500 mg/ Sodium Chloride 50 ml @ 100 mls/hr DAILY IV Last administered on 12/31/20at 08:05; Start 12/27/20 at 11:00; Stop 12/31/20 at 16:05; Status DC Linezolid (Zyvox) 600 mg BID PO Last administered on 12/27/20at 21:48; Start 12/27/20 at 12:00; Stop 12/28/20 at 08:25; Status DC Aspirin (Aspirin Chewable) 81 mg DAILYWBKFT PO Last administered on 12/28/20at 10:10; Start 12/27/20 at 12:00; Stop 12/28/20 at 11:44; Status DC Aspirin (Aspirin Chewable) 81 mg 1X ONCE PO ; Start 12/27/20 at 10:45; Stop 12/27/20 at 10:46; Status UNV Fentanyl Citrate 55 ml @ 0 mls/hr CONT PRN IV PAIN; Start 12/27/20 at 12:45; Status Cancel Sodium Chloride 1,000 ml @ 1,000 mls/hr Q1H PRN IV hypotension; Start 12/28/20 at 07:15; Stop 12/28/20 at 13:14; Status DC Albumin Human 200 ml @ 200 mls/hr 1X ONCE IV Last administered on 12/28/20at 08:22; Start 12/28/20 at 07:45; Stop 12/28/20 at 08:44; Status DC Sodium Chloride 1,000 ml @ 400 mls/hr Q2H30M PRN IV PATENCY; Start 12/28/20 at 07:15; Stop 12/28/20 at 19:14; Status DC Info (PHARMACY MONITORING -- do not chart) 1 each PRN DAILY PRN MC SEE COMMENTS; Start 12/28/20 at 07:15; Status Cancel Phytonadione (Vitamin K Ampule) 10 mg 1X ONCE SQ Last administered on 12/28/20at 10:10; Start 12/28/20 at 08:15; Stop 12/28/20 at 08:16; Status DC Potassium Phosphate 15 mmol/ Sodium Chloride 105 ml @ 52.5 mls/hr 1X ONCE IV Last administered on 12/28/20at 13:32; Start 12/28/20 at 14:00; Stop 12/28/20 at 15:59; Status DC Magnesium Sulfate 50 ml @ 25 mls/hr 1X ONCE IV Last administered on 12/28/20at 13:33; Start 12/28/20 at 12:45; Stop 12/28/20 at 14:44; Status DC Sodium Phosphate 40 mmol/Sodium Chloride 263.3333 ml @ 62.5 mls/hr 1X ONCE IV Last administered on 12/29/20at 09:51; Start 12/29/20 at 10:00; Stop 12/29/20 at 14:12; Status DC Norepinephrine Bitartrate 32 mg/ Dextrose 250 ml @ 4.603 mls/ hr CONT PRN IV SEE I/O RECORD Last administered on 01/05/21at 06:03; Start 12/29/20 at 11:00 Phytonadione (Vitamin K Ampule) 10 mg 1X ONCE SQ Last administered on 12/29/20at 11:40; Start 12/29/20 at 11:00; Stop 12/29/20 at 11:05; Status DC Sodium Chloride 1,000 ml @ 1,000 mls/hr Q1H PRN IV hypotension; Start 12/29/20 at 14:30; Stop 12/29/20 at 20:29; Status DC Sodium Chloride 1,000 ml @ 400 mls/hr Q2H30M PRN IV PATENCY; Start 12/29/20 at 14:30; Stop 12/30/20 at 02:29; Status DC Info (PHARMACY MONITORING -- do not chart) 1 each PRN DAILY PRN MC SEE COMMENTS; Start 12/29/20 at 14:30; Status Cancel Sodium Chloride 1,000 ml @ 1,000 mls/hr Q1H PRN IV hypotension; Start 12/30/20 at 07:00; Stop 12/30/20 at 12:59; Status DC Albumin Human 200 ml @ 200 mls/hr 1X ONCE IV Last administered on 12/30/20at 07:50; Start 12/30/20 at 07:00; Stop 12/30/20 at 07:59; Status DC Sodium Chloride 1,000 ml @ 400 mls/hr Q2H30M PRN IV PATENCY; Start 12/30/20 at 07:00; Stop 12/30/20 at 18:59; Status DC Info (PHARMACY MONITORING -- do not chart) 1 each PRN DAILY PRN MC SEE COMMENTS; Start 12/30/20 at 07:00; Status Cancel Dextrose 1,000 ml @ 30 mls/hr Q24H IV Last administered on 01/05/21at 05:39; Start 12/30/20 at 21:45 Magnesium Sulfate 50 ml @ 25 mls/hr 1X ONCE IV Last administered on 12/31/20at 23:39; Start 12/31/20 at 23:45; Stop 01/01/21 at 01:44; Status DC Nystatin (Nystop) 1 hiro BID TP Last administered on 01/05/21at 08:39; Start 01/02/21 at 09:15 Albumin Human 200 ml @ 200 mls/hr 1X PRN PRN IV Hypotension Last administered on 01/02/21at 09:43; Start 01/02/21 at 09:15; Stop 01/02/21 at 15:14; Status DC Info (PHARMACY MONITORING -- do not chart) 1 each PRN DAILY PRN MC SEE COMMENTS; Start 01/02/21 at 09:15; Status Cancel Sodium Chloride 1,000 ml @ 1,000 mls/hr Q1H PRN IV hypotension; Start 01/04/21 at 07:45; Stop 01/04/21 at 13:44; Status DC Albumin Human 200 ml @ 200 mls/hr 1X ONCE IV Last administered on 01/04/21at 13:50; Start 01/04/21 at 07:45; Stop 01/04/21 at 08:44; Status DC Sodium Chloride 1,000 ml @ 400 mls/hr Q2H30M PRN IV PATENCY; Start 01/04/21 at 07:45; Stop 01/04/21 at 19:44; Status DC Info (PHARMACY MONITORING -- do not chart) 1 each PRN DAILY PRN MC SEE COMMENTS; Start 01/04/21 at 07:45 Pantoprazole Sodium (PROTONIX VIAL for IV PUSH) 40 mg BID IVP Last administered on 01/05/21at 08:54; Start 01/04/21 at 09:00 Albumin Human 200 ml @ 200 mls/hr 1X ONCE IV Last administered on 01/04/21at 14:00; Start 01/04/21 at 14:00; Stop 01/04/21 at 14:59; Status DC Info (Tpn Per Pharmacy) 1 each PRN DAILY PRN MC SEE COMMENTS; Start 01/05/21 at 10:15 Active Scripts Active Nafcillin 2 Gm/ 100 Ml Inj (Nafcillin In Dextrose,Iso-Osm) 2 Gm/100 Ml Froz.piggy 2 Gm IV Q4HRS 30 Days Reported Acetaminophen 325 Mg Tablet 650 Mg PO QHS Aspirin 81 Mg Tab.chew 1 Tab PO DAILY Men's Multivitamin Tablet (Multivit-Min/Folic/Vit K/Lycop) 1 Each Tablet 1 Each PO DAILY Pravastatin Sodium 80 Mg Tablet 1 Tab PO DAILY Lasix (Furosemide) 40 Mg Tablet 1 Tab PO DAILY Colace (Docusate Sodium) 100 Mg Capsule 1 Cap PO PRN BID PRN Vitals/I & O Vital Sign - Last 24 Hours 01/04/21 01/04/21 01/04/21 01/04/21 11:24 12:00 12:00 12:58 Temp 98.5 98.5 Pulse 66 Resp 17 B/P (MAP) 110/47 Pulse Ox 95 95 93 O2 Delivery Ventilator Ventilator Mechanical Ventilator Ventilator 01/04/21 01/04/21 01/04/21 01/04/21 13:00 13:15 14:00 14:15 Pulse 66 66 66 66 Resp 17 17 17 17 B/P (MAP) 112/54 82/40 79/62 101/48 Pulse Ox 95 95 95 97 O2 Delivery Ventilator Ventilator Ventilator Ventilator 01/04/21 01/04/21 01/04/21 01/04/21 15:00 15:15 15:30 15:54 Pulse 75 75 75 Resp 17 17 17 B/P (MAP) 87/46 92/46 86/46 Pulse Ox 97 97 97 99 O2 Delivery Ventilator Ventilator Ventilator Ventilator 01/04/21 01/04/21 01/04/21 01/04/21 16:00 16:00 16:15 17:00 Temp 98.5 98.5 Pulse 75 79 75 Resp 17 17 17 B/P (MAP) 87/46 135/62 87/46 Pulse Ox 97 97 97 O2 Delivery Mechanical Ventilator Ventilator Ventilator Ventilator 01/04/21 01/04/21 01/04/21 01/04/21 17:01 18:00 19:00 20:00 Temp 98.6 98.6 Pulse 72 72 74 Resp 17 16 16 B/P (MAP) 132/52 136/55 128/52 Pulse Ox 99 97 97 97 O2 Delivery Ventilator Ventilator Ventilator Ventilator 01/04/21 01/04/21 01/04/21 01/04/21 20:00 20:24 21:00 22:00 Pulse 64 64 Resp 16 16 B/P (MAP) 113/46 121/57 Pulse Ox 97 96 96 O2 Delivery Mechanical Ventilator Ventilator Ventilator Ventilator 01/04/21 01/04/21 01/05/21 01/05/21 22:10 23:00 00:00 00:01 Temp 98.6 98.6 Pulse 64 64 Resp 16 16 B/P (MAP) 126/50 124/42 Pulse Ox 97 97 96 O2 Delivery Ventilator Ventilator Mechanical Ventilator Ventilator 01/05/21 01/05/21 01/05/21 01/05/21 00:34 01:00 02:00 02:20 Pulse 68 62 Resp 16 16 B/P (MAP) 119/51 127/49 Pulse Ox 97 97 96 94 O2 Delivery Ventilator Ventilator Ventilator Ventilator 01/05/21 01/05/21 01/05/21 01/05/21 03:00 04:00 04:00 05:00 Temp 98.4 98.4 Pulse 70 70 66 Resp 16 16 16 B/P (MAP) 132/52 131/51 131/49 Pulse Ox 94 94 94 O2 Delivery Ventilator Mechanical Ventilator Ventilator Ventilator 01/05/21 01/05/21 01/05/21 01/05/21 05:14 06:00 07:00 07:23 Pulse 60 60 Resp 16 16 B/P (MAP) 124/47 135/44 Pulse Ox 95 91 91 O2 Delivery Ventilator Ventilator Ventilator Ventilator 01/05/21 01/05/21 01/05/21 01/05/21 07:33 08:00 08:00 09:00 Temp 98.0 98.0 Pulse 69 60 Resp 16 16 B/P (MAP) 125/51 119/48 Pulse Ox 97 96 96 O2 Delivery Ventilator Mechanical Ventilator Ventilator Ventilator 01/05/21 01/05/21 01/05/21 09:06 10:00 11:00 Pulse 60 60 Resp 16 16 B/P (MAP) 113/50 126/46 Pulse Ox 96 96 95 O2 Delivery Ventilator Ventilator Ventilator Intake and Output 01/04/21 01/04/21 01/05/21 15:00 23:00 07:00 Intake Total 500 ml 598 ml Output Total 50 ml 0 ml 0 ml Balance -50 ml 500 ml 598 ml Justicifation of Admission Dx: Justifications for Admission: Justification of Admission Dx: N/A JUDI CORNEJO MD Jan 05, 2021 11:19
[2021-01-05 11:53] LABS: % BANDS 17 % (0-9); % LYMPHS 3 % (24-48); % METAS 1 % (0-0); % MONOS 2 % (0-10); % SEGS 77 % (35-66); PLT ESTIMATE DECREASED (ADEQUATE)
[2021-01-05 11:54] LABS: TOXIC GRANULATION PRESENT
[2021-01-05 11:55] LABS: ACANTHOCYTES PRESENT; ANISOCYTOSIS MARKED; POIKILOCYTOSIS PRESENT; TARGET CELLS PRESENT
[2021-01-05] MEDS: TPN PER PHARMACY MC PRN ×2 (13:17→13:35)
[2021-01-05] MEDS ORDERED: TPN PER PHARMACY MC PRN (13:30)
--- NOTE | 2021-01-05 14:46 | PN ---
DATE: 01/05/2021 DAILY PROGRESS NOTE LOCATION: He is in room ICU, 102. SUBJECTIVE: This 85-year-old male remains hospitalized, initially with MSSA sepsis, right knee source. Subsequently, he has developed multiorgan failure. Remains in the ICU. No sedation for the last 5 days, but not arousable. I suspect this is still a slow metabolism of medicines in his system which is ongoing renal and hepatic insufficiency. He is mechanically ventilated with FiO2 increased to 50% this morning with 5 of PEEP. He has ongoing bloody drainage from his NG tube, however, has no drop in hemoglobin with his hemoglobin this morning staying relatively stable at 8.2. White count is 23,000, which is stable. Platelets are 111, which is slightly increased. INR this morning is 1.8. He has ongoing multiple purpura in arms and feet. He has warm feet with good capillary refill, however. OBJECTIVE: VITAL SIGNS: Stable. He is afebrile. Blood pressures remain on the lower side, but somewhat improved and still on pressors. Has ongoing no urine output. CHEST: Clear. HEART: Regular. ABDOMEN: Benign. EXTREMITIES: Stable, petechial changes. NEUROLOGIC: Remains unresponsive. IMPRESSION: 1. Multiorgan failure, triggered by methicillin-susceptible Staphylococcus aureus sepsis. 2. Acute hypoxic respiratory failure, on mechanical ventilation. 3. Leukocytosis. 4. Thrombocytopenia, improving. 5. Coagulopathy. 6. Liver insufficiency. 7. Hyperbilirubinemia. PLAN: Continue supportive care at this point. I did leave a message with the son last night, but did not get a call back from him, so we are going to continue supportive care at this point. We will follow labs. I have asked nursing to ask Renal about probably starting him on TPN with ongoing low sugars at times and Neuro as far as his mental status whether we need to do more to look into that such as EEG or just give him time. ZEV/CAROLINE GIFFORD: Danielle TID: [id number]
--- NOTE | 2021-01-05 15:11 | PDOC ---
Infectious Disease Note Subjective: Subjective Patient remains critically ill Intubated. Unresponsive Bloody OG output d/w RN Vital Signs: Vital Signs Vital Signs Date Time Temp Pulse Resp B/P (MAP) Pulse Ox O2 Delivery O2 Flow Rate FiO2 01/05/21 15:00 67 16 91/38 92 Ventilator 01/05/21 12:00 98.4 98.4 Physical Exam: PHYSICAL EXAM GENERAL: Intubated,Unresponsive HEENT: ETT OGT in place, icterus present NECK: Right IJ placed , chest wall has right HDC looks clean LUNGS: Decreased HEART: S1, S2, systolic murmur present. Pacemaker site looks okay ABDOMEN: Soft, nontender, nondistended. EXTREMITIES: Right knee prepatellar swelling, mild erythema , no drainage, dorsalis pedis dopplerable DERMATOLOGIC: No generalized rash, multiple purpuric lesions both feet and upper extremity. Likely embolic NEUROLOGIC: Unresponsive Lines as above Medications: Inpatient Meds: Medications reviewed. Labs: Lab Laboratory Tests Test 01/04/21 16:30 01/05/21 06:04 01/05/21 07:03 01/05/21 07:20 Glucose (Fingerstick) 66 mg/dL (70-99) 106 mg/dL (70-99) Sodium Level 130 mmol/L (136-145) Potassium Level 4.3 mmol/L (3.5-5.1) Chloride Level 94 mmol/L (98-107) Carbon Dioxide Level 25 mmol/L (21-32) Anion Gap 11 (6-14) Blood Urea Nitrogen 34 mg/dL (8-26) Creatinine 3.1 mg/dL (0.7-1.3) Estimated GFR (Cockcroft-Gault) 19.3 Glucose Level 45 mg/dL (70-99) Calcium Level 7.0 mg/dL (8.5-10.1) Phosphorus Level 4.0 mg/dL (2.6-4.7) O2 Saturation 88 % (92-99) Arterial Blood pH 7.34 (7.35-7.45) Arterial Blood pCO2 at Patient Temp 38 mmHg (35-46) Arterial Blood pO2 at Patient Temp 55 mmHg (65-108) Arterial Blood HCO3 20 mmol/L (21-28) Arterial Blood Base Excess -5 mmol/L (-3-3) FiO2 40% ac 16/500/5 Test 01/05/21 08:00 01/05/21 08:02 01/05/21 11:36 01/05/21 11:56 White Blood Count 23.0 x10^3/uL (4.0-11.0) Red Blood Count 2.75 x10^6/uL (4.30-5.70) Hemoglobin 8.2 g/dL (13.0-17.5) Hematocrit 25.6 % (39.0-53.0) Mean Corpuscular Volume 93 fL (79-100) Mean Corpuscular Hemoglobin 30 pg (25-35) Mean Corpuscular Hemoglobin Concent 32 g/dL (31-37) Red Cell Distribution Width 29.6 % (11.5-14.5) Platelet Count 111 x10^3/uL (140-400) Neutrophils (%) (Auto) 93 % (31-73) Lymphocytes (%) (Auto) 2 % (24-48) Monocytes (%) (Auto) 5 % (0-9) Eosinophils (%) (Auto) 0 % (0-3) Basophils (%) (Auto) 0 % (0-3) Neutrophils # (Auto) 21.3 x10^3/uL (1.8-7.7) Lymphocytes # (Auto) 0.6 x10^3/uL (1.0-4.8) Monocytes # (Auto) 1.0 x10^3/uL (0.0-1.1) Eosinophils # (Auto) 0.1 x10^3/uL (0.0-0.7) Basophils # (Auto) 0.0 x10^3/uL (0.0-0.2) Segmented Neutrophils % 77 % (35-66) Band Neutrophils % 17 % (0-9) Lymphocytes % 3 % (24-48) Monocytes % 2 % (0-10) Metamyelocytes % 1 % (0-0) Toxic Granulation Present Platelet Estimate Decreased (ADEQUATE) Large Platelets Few Giant Platelets Occ Poikilocytosis Present Anisocytosis Marked Target Cells Present Acanthocytes Present Prothrombin Time 20.5 SEC (11.7-14.0) Prothromb Time International Ratio 1.8 (0.8-1.1) Glucose (Fingerstick) 79 mg/dL (70-99) 24 mg/dL (70-99) 164 mg/dL (70-99) Test 01/05/21 13:56 01/05/21 13:59 Glucose (Fingerstick) 101 mg/dL (70-99) 100 mg/dL (70-99) Micro Chest x-ray IMPRESSION: 1. Increase in diffuse mixed interstitial and alveolar infiltrate and small pleural effusions. 2. Stable cardiomegaly and cardiac pacemaker. 3. Right internal jugular catheter with the tip overlying expected position of the superior cavoatrial junction. Objective: Assessment: Patient with prolonged hospitalization and complicated medical course now with multiorgan failure Persistent methicillin sensitive staph aureus bacteremia 4 of 4 bottles present on admission 11/28/2020, November 30 and December 02 History of PPM.H/O recent battery exchange. SOO negative for vegetation or thrombus Rt [place] joint MSSA septic arthritis status post synovial aspirate WBC 30,000 RBC 66,000 Status post irrigation debridement of right knee joint and prepatellar bursa on December 04, 2020 Cultures positive for MSSA Sepsis Leukocytosis and lactic acidosis Thrombocytopenia acute,Hematology consulted Respiratory failure status post intubation on 12/26/2020/appears multifactorial ARDS D Dimer elevated Encephalopathy Neurology following,? anoxic encephalopathy Anemia status post PRBC 12/27/2020 History of fall present on admission. GUERO on HD urine eosinophil negative Abnormal LFTs likely shock liver with worsening hyperbilirubinemia History of atrial fibrillation. CHF status post PPM Hypertension. Coagulopathy on admission Nausea and vomiting couple of days ago which had resolved Plan: Plan of Care Leucocytosis likely reactive from bloody output from OGT ,Cont Daptomycin repeat bc negative so far Monitor labs and cultures, worsening LFTs Bood culture remain negative, UA and urine culture not done as patient is anuric Continue local wound care as directed Critically ill Overall long-term prognosis is very poor Consider comfort measures Son wants patient to be full code Patient will likely not survive this hospitalization Discussed with nursing staff ELIZABETH BALLESTEROS MD Jan 05, 2021 15:11
--- NOTE | 2021-01-05 15:26 | NUR ---
SS following up with discharge planning. SS reviewed pt chart and discussed with pt RN. Pt is currently on the vent at 50%. COVID19 negative. Pt on IV Daptomycin QOD. Pt on Levophed. Gastric bleeding. Off sedation. Multi organ failure. TPN to start tonight. Hemodialysis tomorrow. Pt not a candidate for trach placement. Not stable. Pt's son continuing to request full aggressive care. SS will continue to follow for discharge planning.
[2021-01-05] MEDS ORDERED: IV DEXTROSE 10% 1,000 ML IV SCH (18:15)
[2021-01-05] MEDS: ACETAMINOPHEN 325 MG TABLET. PO SCH (21:00)
[2021-01-05] MEDS ORDERED: TOTAL PARENTERAL NUTRITION IV SCH (22:00)
[2021-01-05] MEDS ORDERED: [UNRECOGNIZED DRUG - OTHER] IV SCH (22:00)
[2021-01-05] MEDS ORDERED: AMINO ACID IV SCH (22:00)
[2021-01-05] MEDS ORDERED: DEXTROSE 70% IV SCH (22:00)
[2021-01-06] VITALS (31 sets, daily range): BP systolic 71–138; BP diastolic 33–65
[2021-01-06] MEDS: NOREPINEPHRINE VIAL 32 MG in IV D5W 250ML IV PRN ×2 (04:42→15:03)
[2021-01-06 06:37] LABS: BASO # 0.1 x10^3/uL (0.0-0.2); BASO % 1 % (0-3); EOS % 0 % (0-3); HEMATOCRIT 24.4 % (39.0-53.0); HEMOGLOBIN 7.7 g/dL (13.0-17.5); LYMPH # 0.5 x10^3/uL (1.0-4.8); LYMPH % 2 % (24-48); MEAN CORPUSCULAR HEMOGLOBIN 30 pg (25-35); MEAN CORPUSCULAR HGB CONC 32 g/dL (31-37); MEAN CORPUSCULAR VOLUME 94 fL (79-100); MONO # 0.9 x10^3/uL (0.0-1.1); MONO % 4 % (0-9); NEUT # 20.2 x10^3/uL (1.8-7.7); NEUT % 93 % (31-73); PLATELET COUNT 104 x10^3/uL (140-400); RED CELL DISTRIBUTION WIDTH 29.1 % (11.5-14.5); WHITE BLOOD COUNT 21.8 x10^3/uL (4.0-11.0)
[2021-01-06 06:50] LABS: ALBUMIN 1.8 g/dL (3.4-5.0); ALBUMIN/GLOBULIN RATIO 0.4 (1.0-1.7); CALCIUM 6.5 mg/dL (8.5-10.1); GFR 14.4; POTASSIUM 4.7 mmol/L (3.5-5.1); TOTAL BILIRUBIN 14.7 mg/dL (0.2-1.0)
[2021-01-06 06:53] LABS: PHOSPHORUS 3.5 mg/dL (2.6-4.7)
[2021-01-06] MEDS: VASOPRESSIN - VASOSTRICT 20 UNIT in IV DEXTROSE 5% 100ML 100 ML IV PRN ×3 (07:36→23:01)
[2021-01-06 07:47] LABS: BASE EXCESS ABG -5 mmol/L (-3-3); HCO3 ABG 21 mmol/L (21-28); PCO2 ABG 45 mmHg (35-46); PO2 ABG 54 mmHg (65-108); SAT O2 ABG 85 % (92-99)
[2021-01-06 07:50] LABS: FIO2 ABG 50
[2021-01-06] MEDS: POLYVINYL ALCOHOL 1.4% OPHTH SOLUTION 15ML BOTTLE. OU PRN (07:59)
[2021-01-06] MEDS: PANTOPRAZOLE IV PUSH 40 MG VIAL. IVP SCH ×2 (07:59→20:53)
[2021-01-06] MEDS: NYSTATIN TOPICAL POWDER 15GM BOTTLE. TP SCH ×2 (08:00→20:54)
--- NOTE | 2021-01-06 08:13 | PDOC ---
Infectious Disease Note Subjective: Subjective Patient remains critically ill Intubated. Unresponsive off sedation Bloody OG output On Levophed and now on vasopressin d/w RN Vital Signs: Vital Signs Vital Signs Date Time Temp Pulse Resp B/P (MAP) Pulse Ox O2 Delivery O2 Flow Rate FiO2 01/06/21 07:25 92 Ventilator 01/06/21 07:15 59 16 101/34 01/06/21 04:00 98.9 98.9 Physical Exam: PHYSICAL EXAM GENERAL: Intubated,Unresponsive HEENT: ETT OGT in place, icterus present, NECK: Right IJ placed , chest wall has right HDC looks clean LUNGS: Decreased HEART: S1, S2, systolic murmur present. Pacemaker site looks okay ABDOMEN: Soft, nontender, nondistended. EXTREMITIES: Right knee prepatellar swelling, mild erythema , no drainage, dorsalis pedis dopplerable DERMATOLOGIC: No generalized rash, multiple purpleish lesions both feet including toes and upper extremity. Likely embolic, getting worse NEUROLOGIC: Unresponsive Lines as above Medications: Inpatient Meds: Medications reviewed. Labs: Lab Laboratory Tests Test 01/05/21 11:36 01/05/21 11:56 01/05/21 13:56 01/05/21 13:59 Glucose (Fingerstick) 24 mg/dL (70-99) 164 mg/dL (70-99) 101 mg/dL (70-99) 100 mg/dL (70-99) Test 01/05/21 17:48 01/05/21 18:08 01/06/21 00:21 01/06/21 05:16 Glucose (Fingerstick) 60 mg/dL (70-99) 111 mg/dL (70-99) 97 mg/dL (70-99) 94 mg/dL (70-99) Test 01/06/21 06:30 01/06/21 07:40 White Blood Count 21.8 x10^3/uL (4.0-11.0) Red Blood Count 2.60 x10^6/uL (4.30-5.70) Hemoglobin 7.7 g/dL (13.0-17.5) Hematocrit 24.4 % (39.0-53.0) Mean Corpuscular Volume 94 fL (79-100) Mean Corpuscular Hemoglobin 30 pg (25-35) Mean Corpuscular Hemoglobin Concent 32 g/dL (31-37) Red Cell Distribution Width 29.1 % (11.5-14.5) Platelet Count 104 x10^3/uL (140-400) Neutrophils (%) (Auto) 93 % (31-73) Lymphocytes (%) (Auto) 2 % (24-48) Monocytes (%) (Auto) 4 % (0-9) Eosinophils (%) (Auto) 0 % (0-3) Basophils (%) (Auto) 1 % (0-3) Neutrophils # (Auto) 20.2 x10^3/uL (1.8-7.7) Lymphocytes # (Auto) 0.5 x10^3/uL (1.0-4.8) Monocytes # (Auto) 0.9 x10^3/uL (0.0-1.1) Eosinophils # (Auto) 0.0 x10^3/uL (0.0-0.7) Basophils # (Auto) 0.1 x10^3/uL (0.0-0.2) Sodium Level 125 mmol/L (136-145) Potassium Level 4.7 mmol/L (3.5-5.1) Chloride Level 92 mmol/L (98-107) Carbon Dioxide Level 24 mmol/L (21-32) Anion Gap 9 (6-14) Blood Urea Nitrogen 44 mg/dL (8-26) Creatinine 4.0 mg/dL (0.7-1.3) Estimated GFR (Cockcroft-Gault) 14.4 BUN/Creatinine Ratio 11 (6-20) Glucose Level 132 mg/dL (70-99) Calcium Level 6.5 mg/dL (8.5-10.1) Phosphorus Level 3.5 mg/dL (2.6-4.7) Magnesium Level 2.0 mg/dL (1.8-2.4) Total Bilirubin 14.7 mg/dL (0.2-1.0) Aspartate Amino Transf (AST/SGOT) 118 U/L (15-37) Alanine Aminotransferase (ALT/SGPT) 21 U/L (16-63) Alkaline Phosphatase 193 U/L (46-116) Total Protein 6.0 g/dL (6.4-8.2) Albumin 1.8 g/dL (3.4-5.0) Albumin/Globulin Ratio 0.4 (1.0-1.7) O2 Saturation 85 % (92-99) Arterial Blood pH 7.29 (7.35-7.45) Arterial Blood pCO2 at Patient Temp 45 mmHg (35-46) Arterial Blood pO2 at Patient Temp 54 mmHg (65-108) Arterial Blood HCO3 21 mmol/L (21-28) Arterial Blood Base Excess -5 mmol/L (-3-3) FiO2 50 Micro Chest x-ray IMPRESSION: 1. Increase in diffuse mixed interstitial and alveolar infiltrate and small pleural effusions. 2. Stable cardiomegaly and cardiac pacemaker. 3. Right internal jugular catheter with the tip overlying expected position of the superior cavoatrial junction. Objective: Assessment: Patient with prolonged hospitalization and complicated medical course now with multiorgan failure Persistent methicillin sensitive staph aureus bacteremia 4 of 4 bottles present on admission 11/28/2020, November 30 and December 02 History of PPM.H/O recent battery exchange. SOO negative for vegetation or thrombus Rt [place] joint MSSA septic arthritis status post synovial aspirate WBC 30,000 RBC 66,000 Status post irrigation debridement of right knee joint and prepatellar bursa on December 04, 2020 Cultures positive for MSSA Sepsis Leukocytosis and lactic acidosis Thrombocytopenia acute,Hematology consulted Respiratory failure status post intubation on 12/26/2020/appears multifactorial ARDS D Dimer elevated Encephalopathy Neurology following,? anoxic encephalopathy Anemia status post PRBC 12/27/2020 History of fall present on admission. GUERO on HD urine eosinophil negative, hyponatremia Abnormal LFTs likely shock liver with worsening hyperbilirubinemia History of atrial fibrillation. CHF status post PPM Hypertension. Coagulopathy on admission Nausea and vomiting couple of days ago which had resolved Plan: Plan of Care Leucocytosis likely reactive from bloody output from OGT ,Cont Daptomycin repeat bc negative so far Monitor labs and cultures, worsening LFTs Bood culture remain negative, UA and urine culture not done as patient is anuric Continue local wound care as directed Critically ill Overall long-term prognosis is very poor Consider comfort measures Son wants patient to be full code Patient will likely not survive this hospitalization Discussed with nursing staff ELIZABETH BALLESTEROS MD Jan 06, 2021 08:13
[2021-01-06] MEDS: TPN PER PHARMACY MC PRN ×2 (09:14→10:38)
--- NOTE | 2021-01-06 09:15 | PDOC ---
PULMONARY PROGRESS NOTES DATE: 01/06/21 TIME: 09:11 Subjective Remains on vent support. oxygen requirement increased to 60%. Remains on Levophed. sedation off since 12/30/20 Pt. is now having Gastric bleeding Vitals Vital Signs Date Time Temp Pulse Resp B/P (MAP) Pulse Ox O2 Delivery O2 Flow Rate FiO2 01/06/21 08:00 98.7 77 16 111/48 98 Ventilator 98.7 Comments on vent off sedation no response ros unable to obtain HEENT: Other (nc at perrl orally intubated nose clear ) Lungs: Clear Cardiovascular: S1, S2 Abdomen: Soft Extremities: Other (Edema) Skin: Warm Labs Laboratory Tests Test 01/04/21 10:00 01/04/21 10:56 01/04/21 16:30 01/05/21 06:04 White Blood Count 24.0 x10^3/uL (4.0-11.0) Red Blood Count 2.80 x10^6/uL (4.30-5.70) Hemoglobin 8.4 g/dL (13.0-17.5) Hematocrit 25.9 % (39.0-53.0) Mean Corpuscular Volume 93 fL (79-100) Mean Corpuscular Hemoglobin 30 pg (25-35) Mean Corpuscular Hemoglobin Concent 32 g/dL (31-37) Red Cell Distribution Width 29.8 % (11.5-14.5) Platelet Count 108 x10^3/uL (140-400) 109 x10^3/uL (140-400) Prothrombin Time 20.1 SEC (11.7-14.0) Prothromb Time International Ratio 1.7 (0.8-1.1) Activated Partial Thromboplast Time 61 SEC (24-38) Fibrinogen 103 mg/dL (200-440) D-Dimer (Stephanie) > 20.00 ug/mlFEU Glucose (Fingerstick) 66 mg/dL (70-99) Sodium Level 130 mmol/L (136-145) Potassium Level 4.3 mmol/L (3.5-5.1) Chloride Level 94 mmol/L (98-107) Carbon Dioxide Level 25 mmol/L (21-32) Anion Gap 11 (6-14) Blood Urea Nitrogen 34 mg/dL (8-26) Creatinine 3.1 mg/dL (0.7-1.3) Estimated GFR (Cockcroft-Gault) 19.3 Glucose Level 45 mg/dL (70-99) Calcium Level 7.0 mg/dL (8.5-10.1) Phosphorus Level 4.0 mg/dL (2.6-4.7) Test 01/05/21 07:03 01/05/21 07:20 01/05/21 08:00 01/05/21 08:02 Glucose (Fingerstick) 106 mg/dL (70-99) 79 mg/dL (70-99) O2 Saturation 88 % (92-99) Arterial Blood pH 7.34 (7.35-7.45) Arterial Blood pCO2 at Patient Temp 38 mmHg (35-46) Arterial Blood pO2 at Patient Temp 55 mmHg (65-108) Arterial Blood HCO3 20 mmol/L (21-28) Arterial Blood Base Excess -5 mmol/L (-3-3) FiO2 40% ac 16/500/5 White Blood Count 23.0 x10^3/uL (4.0-11.0) Red Blood Count 2.75 x10^6/uL (4.30-5.70) Hemoglobin 8.2 g/dL (13.0-17.5) Hematocrit 25.6 % (39.0-53.0) Mean Corpuscular Volume 93 fL (79-100) Mean Corpuscular Hemoglobin 30 pg (25-35) Mean Corpuscular Hemoglobin Concent 32 g/dL (31-37) Red Cell Distribution Width 29.6 % (11.5-14.5) Platelet Count 111 x10^3/uL (140-400) Neutrophils (%) (Auto) 93 % (31-73) Lymphocytes (%) (Auto) 2 % (24-48) Monocytes (%) (Auto) 5 % (0-9) Eosinophils (%) (Auto) 0 % (0-3) Basophils (%) (Auto) 0 % (0-3) Neutrophils # (Auto) 21.3 x10^3/uL (1.8-7.7) Lymphocytes # (Auto) 0.6 x10^3/uL (1.0-4.8) Monocytes # (Auto) 1.0 x10^3/uL (0.0-1.1) Eosinophils # (Auto) 0.1 x10^3/uL (0.0-0.7) Basophils # (Auto) 0.0 x10^3/uL (0.0-0.2) Segmented Neutrophils % 77 % (35-66) Band Neutrophils % 17 % (0-9) Lymphocytes % 3 % (24-48) Monocytes % 2 % (0-10) Metamyelocytes % 1 % (0-0) Toxic Granulation Present Platelet Estimate Decreased (ADEQUATE) Large Platelets Few Giant Platelets Occ Poikilocytosis Present Anisocytosis Marked Target Cells Present Acanthocytes Present Prothrombin Time 20.5 SEC (11.7-14.0) Prothromb Time International Ratio 1.8 (0.8-1.1) Test 01/05/21 11:36 01/05/21 11:56 01/05/21 13:56 01/05/21 13:59 Glucose (Fingerstick) 24 mg/dL (70-99) 164 mg/dL (70-99) 101 mg/dL (70-99) 100 mg/dL (70-99) Test 01/05/21 17:48 01/05/21 18:08 01/06/21 00:21 01/06/21 05:16 Glucose (Fingerstick) 60 mg/dL (70-99) 111 mg/dL (70-99) 97 mg/dL (70-99) 94 mg/dL (70-99) Test 01/06/21 06:30 01/06/21 07:40 White Blood Count 21.8 x10^3/uL (4.0-11.0) Red Blood Count 2.60 x10^6/uL (4.30-5.70) Hemoglobin 7.7 g/dL (13.0-17.5) Hematocrit 24.4 % (39.0-53.0) Mean Corpuscular Volume 94 fL (79-100) Mean Corpuscular Hemoglobin 30 pg (25-35) Mean Corpuscular Hemoglobin Concent 32 g/dL (31-37) Red Cell Distribution Width 29.1 % (11.5-14.5) Platelet Count 104 x10^3/uL (140-400) Neutrophils (%) (Auto) 93 % (31-73) Lymphocytes (%) (Auto) 2 % (24-48) Monocytes (%) (Auto) 4 % (0-9) Eosinophils (%) (Auto) 0 % (0-3) Basophils (%) (Auto) 1 % (0-3) Neutrophils # (Auto) 20.2 x10^3/uL (1.8-7.7) Lymphocytes # (Auto) 0.5 x10^3/uL (1.0-4.8) Monocytes # (Auto) 0.9 x10^3/uL (0.0-1.1) Eosinophils # (Auto) 0.0 x10^3/uL (0.0-0.7) Basophils # (Auto) 0.1 x10^3/uL (0.0-0.2) Sodium Level 125 mmol/L (136-145) Potassium Level 4.7 mmol/L (3.5-5.1) Chloride Level 92 mmol/L (98-107) Carbon Dioxide Level 24 mmol/L (21-32) Anion Gap 9 (6-14) Blood Urea Nitrogen 44 mg/dL (8-26) Creatinine 4.0 mg/dL (0.7-1.3) Estimated GFR (Cockcroft-Gault) 14.4 BUN/Creatinine Ratio 11 (6-20) Glucose Level 132 mg/dL (70-99) Calcium Level 6.5 mg/dL (8.5-10.1) Phosphorus Level 3.5 mg/dL (2.6-4.7) Magnesium Level 2.0 mg/dL (1.8-2.4) Total Bilirubin 14.7 mg/dL (0.2-1.0) Aspartate Amino Transf (AST/SGOT) 118 U/L (15-37) Alanine Aminotransferase (ALT/SGPT) 21 U/L (16-63) Alkaline Phosphatase 193 U/L (46-116) Total Protein 6.0 g/dL (6.4-8.2) Albumin 1.8 g/dL (3.4-5.0) Albumin/Globulin Ratio 0.4 (1.0-1.7) O2 Saturation 85 % (92-99) Arterial Blood pH 7.29 (7.35-7.45) Arterial Blood pCO2 at Patient Temp 45 mmHg (35-46) Arterial Blood pO2 at Patient Temp 54 mmHg (65-108) Arterial Blood HCO3 21 mmol/L (21-28) Arterial Blood Base Excess -5 mmol/L (-3-3) FiO2 50 Laboratory Tests Test 01/05/21 11:36 01/05/21 11:56 01/05/21 13:56 01/05/21 13:59 Glucose (Fingerstick) 24 mg/dL (70-99) 164 mg/dL (70-99) 101 mg/dL (70-99) 100 mg/dL (70-99) Test 01/05/21 17:48 01/05/21 18:08 01/06/21 00:21 01/06/21 05:16 Glucose (Fingerstick) 60 mg/dL (70-99) 111 mg/dL (70-99) 97 mg/dL (70-99) 94 mg/dL (70-99) Test 01/06/21 06:30 01/06/21 07:40 White Blood Count 21.8 x10^3/uL (4.0-11.0) Red Blood Count 2.60 x10^6/uL (4.30-5.70) Hemoglobin 7.7 g/dL (13.0-17.5) Hematocrit 24.4 % (39.0-53.0) Mean Corpuscular Volume 94 fL (79-100) Mean Corpuscular Hemoglobin 30 pg (25-35) Mean Corpuscular Hemoglobin Concent 32 g/dL (31-37) Red Cell Distribution Width 29.1 % (11.5-14.5) Platelet Count 104 x10^3/uL (140-400) Neutrophils (%) (Auto) 93 % (31-73) Lymphocytes (%) (Auto) 2 % (24-48) Monocytes (%) (Auto) 4 % (0-9) Eosinophils (%) (Auto) 0 % (0-3) Basophils (%) (Auto) 1 % (0-3) Neutrophils # (Auto) 20.2 x10^3/uL (1.8-7.7) Lymphocytes # (Auto) 0.5 x10^3/uL (1.0-4.8) Monocytes # (Auto) 0.9 x10^3/uL (0.0-1.1) Eosinophils # (Auto) 0.0 x10^3/uL (0.0-0.7) Basophils # (Auto) 0.1 x10^3/uL (0.0-0.2) Sodium Level 125 mmol/L (136-145) Potassium Level 4.7 mmol/L (3.5-5.1) Chloride Level 92 mmol/L (98-107) Carbon Dioxide Level 24 mmol/L (21-32) Anion Gap 9 (6-14) Blood Urea Nitrogen 44 mg/dL (8-26) Creatinine 4.0 mg/dL (0.7-1.3) Estimated GFR (Cockcroft-Gault) 14.4 BUN/Creatinine Ratio 11 (6-20) Glucose Level 132 mg/dL (70-99) Calcium Level 6.5 mg/dL (8.5-10.1) Phosphorus Level 3.5 mg/dL (2.6-4.7) Magnesium Level 2.0 mg/dL (1.8-2.4) Total Bilirubin 14.7 mg/dL (0.2-1.0) Aspartate Amino Transf (AST/SGOT) 118 U/L (15-37) Alanine Aminotransferase (ALT/SGPT) 21 U/L (16-63) Alkaline Phosphatase 193 U/L (46-116) Total Protein 6.0 g/dL (6.4-8.2) Albumin 1.8 g/dL (3.4-5.0) Albumin/Globulin Ratio 0.4 (1.0-1.7) O2 Saturation 85 % (92-99) Arterial Blood pH 7.29 (7.35-7.45) Arterial Blood pCO2 at Patient Temp 45 mmHg (35-46) Arterial Blood pO2 at Patient Temp 54 mmHg (65-108) Arterial Blood HCO3 21 mmol/L (21-28) Arterial Blood Base Excess -5 mmol/L (-3-3) FiO2 50 Medications Active Scripts Medications Dose Route/Sig Max Daily Dose Days Date Category Nafcillin 2 Gm/ 100 Ml Inj (Nafcillin In Dextrose,Iso-Osm) 2 Gm/100 Ml Froz.piggy 2 Gm IV Q4HRS 30 12/16/20 Rx Acetaminophen 325 Mg Tablet 650 Mg PO QHS 11/28/20 Reported Aspirin 81 Mg Tab.chew 1 Tab PO DAILY 11/01/20 Reported Men's Multivitamin Tablet (Multivit-Min/Folic/Vit K/Lycop) 1 Each Tablet 1 Each PO DAILY 07/19/20 Reported Pravastatin Sodium 80 Mg Tablet 1 Tab PO DAILY 03/02/19 Reported Lasix (Furosemide) 40 Mg Tablet 1 Tab PO DAILY 01/11/14 Reported Colace (Docusate Sodium) 100 Mg Capsule 1 Cap PO PRN BID PRN 01/11/14 Reported Comments Chest x-ray reviewed dated 01/06/2021. No official report yet. Per my impression bilateral unchanged diffuse interstitial infiltrates with no significant pleural effusion. These findings suggestive of ARDS. Chest x-ray reviewed dated 01/03/21 Bilateral interstitial infiltrates, no significant change Impression . IMPRESSION: 1. Acute hypoxemic respiratory failure, multifactorial. 2. Abnormal x-ray compatible with acute respiratory distress syndrome, already treated for possible superimposed pneumonia. 3. Persistent methicillin-sensitive Staph aureus bacteremia, present upon admission. 4. Right [place] joint methicillin-susceptible Staphylococcus aureus septic arthritis. 5. Metabolic toxic encephalopathy. 6. Atrial fibrillation. 7. Hypertension. 8. Liver failure. 9. Severe protein malnutrition, present upon admission. 10. Acute renal failure. Requiring hemodialysis 11. Septic shock 12. Lower extremity digits ecchymosis, suspect secondary to Levophed 13. Likely anoxic encephalopathy. 14. Upper GI bleed, not on any anticoagulation Plan . Updated 01/06/21 cont vent support setting reviewed titration as tolerated. 16/500/60%/5 Not responding to any commands. Has been off sedation since 30 December Hemodialysis per nephro-- Continue ABX per ID TF on hold-- pt. not tolerating and gastric bleeding--off AC and monitor HGB, PPI BID. Transfuse as needed. GI following, follow the recommendations . Per their note, not a candidate for invasive intervention. Continue vasopressors to keep MAP above 65 discussed w rn Overall prognosis is poor D/W son--- explained the need for tracheostomy since he wants to continue with aggressive care. He agrees to proceed... Patient evaluated by Dr. Monteiro for tracheostomy. At present he is not a optimal candidate for the procedure. Pt. remains a FULL code at this time Will consider evaluation for LTAC transfer Updated 01/05/21 cont vent support setting reviewed 02 titration as tolerated. 16/500/50%/5 Not responding to any commands. Has been off sedation since 30 December Hemodialysis per nephro-- Continue ABX per ID TF on hold-- pt. not tolerating and gastric bleeding--off AC and monitor HGB, PPI BID GI following, follow the recommendations regarding possible EGD Continue vasopressors to keep MAP above 65 discussed w rn Overall prognosis is poor D/W son--- explained the need for tracheostomy since he wants to continue with aggressive care. He agrees to proceed... Patient evaluated by Dr. Monteiro for tracheostomy. At present he is not a optimal candidate for the procedure Pt. remains a FULL code at this time Updated 01/04/21 cont vent support setting reviewed 02 titration as tolerated. 16/500/40%/5 Not responding to any commands. Has been off sedation since 30 December Hemodialysis per nephro--renal function worse today Continue ABX per ID TF on hold-- pt. not tolerating and gastric bleeding-- DC AC and monitor HGB, PPI BID Continue vasopressors to keep MAP above 65 prognosis poor discussed w rn Overall prognosis is poor D/W son--- explained the need for tracheostomy since he wants to continue with aggressive care. He agrees to proceed.will consult surgery. Pt. remains a FULL code at this time Updated 01/03 cont vent support setting reviewed 02 titration as tolerated. FiO2 down to 40%. Not responding to any commands. Has been off sedation since 30 December monitor WBC hb Continue current support Nutritional support Hemodialysis per nephro prognosis poor discussed w rn Overall prognosis is poor Message left for the son. I would like to discuss advanced directives and if they still want to pursue with aggressive care, I would recommend tracheostomy and PEG tube Updated 01/02 cont vent support setting reviewed 02 titration as tolerated. Wean FiO2 to 45% today on pepcid monitor WBC hb Continue current support Nutritional support Hemodialysis per nephro prognosis poor Repeat chest x-ray in a.m. discussed w rn Overall prognosis is poor MK WATT MD Jan 06, 2021 09:15
[2021-01-06] MEDS: DAPTOmycin (GENERIC) IVPB 510 MG in IV NORMAL SALINE 50ML 50 ML IV SCH (09:18)
--- NOTE | 2021-01-06 09:24 | PDOC ---
MINERVA QUINONEZ [employer] COORDINATOR 01/06/21 0924: CARDIO Progress Notes Date and Time Date of Service 01/06/2021 Time of Evaluation 0900 Subjective Subjective: Other (intubated ) Vitals Vitals Vital Signs Date Time Temp Pulse Resp B/P (MAP) Pulse Ox O2 Delivery O2 Flow Rate FiO2 01/06/21 08:00 98.7 77 16 111/48 98 Ventilator 98.7 Weight Weight [ ] Input and Output Intake and Output Intake and Output 01/06/21 07:00 Intake Total 1141.3 ml Output Total 0 ml Balance 1141.3 ml IV Total 971.3 ml Tube Feeding 170 ml Output Urine Total 0 ml Laboratory Labs Laboratory Tests Test 01/05/21 11:36 01/05/21 11:56 01/05/21 13:56 01/05/21 13:59 Glucose (Fingerstick) 24 mg/dL (70-99) 164 mg/dL (70-99) 101 mg/dL (70-99) 100 mg/dL (70-99) Test 01/05/21 17:48 01/05/21 18:08 01/06/21 00:21 01/06/21 05:16 Glucose (Fingerstick) 60 mg/dL (70-99) 111 mg/dL (70-99) 97 mg/dL (70-99) 94 mg/dL (70-99) Test 01/06/21 06:30 01/06/21 07:40 White Blood Count 21.8 x10^3/uL (4.0-11.0) Red Blood Count 2.60 x10^6/uL (4.30-5.70) Hemoglobin 7.7 g/dL (13.0-17.5) Hematocrit 24.4 % (39.0-53.0) Mean Corpuscular Volume 94 fL (79-100) Mean Corpuscular Hemoglobin 30 pg (25-35) Mean Corpuscular Hemoglobin Concent 32 g/dL (31-37) Red Cell Distribution Width 29.1 % (11.5-14.5) Platelet Count 104 x10^3/uL (140-400) Neutrophils (%) (Auto) 93 % (31-73) Lymphocytes (%) (Auto) 2 % (24-48) Monocytes (%) (Auto) 4 % (0-9) Eosinophils (%) (Auto) 0 % (0-3) Basophils (%) (Auto) 1 % (0-3) Neutrophils # (Auto) 20.2 x10^3/uL (1.8-7.7) Lymphocytes # (Auto) 0.5 x10^3/uL (1.0-4.8) Monocytes # (Auto) 0.9 x10^3/uL (0.0-1.1) Eosinophils # (Auto) 0.0 x10^3/uL (0.0-0.7) Basophils # (Auto) 0.1 x10^3/uL (0.0-0.2) Sodium Level 125 mmol/L (136-145) Potassium Level 4.7 mmol/L (3.5-5.1) Chloride Level 92 mmol/L (98-107) Carbon Dioxide Level 24 mmol/L (21-32) Anion Gap 9 (6-14) Blood Urea Nitrogen 44 mg/dL (8-26) Creatinine 4.0 mg/dL (0.7-1.3) Estimated GFR (Cockcroft-Gault) 14.4 BUN/Creatinine Ratio 11 (6-20) Glucose Level 132 mg/dL (70-99) Calcium Level 6.5 mg/dL (8.5-10.1) Phosphorus Level 3.5 mg/dL (2.6-4.7) Magnesium Level 2.0 mg/dL (1.8-2.4) Total Bilirubin 14.7 mg/dL (0.2-1.0) Aspartate Amino Transf (AST/SGOT) 118 U/L (15-37) Alanine Aminotransferase (ALT/SGPT) 21 U/L (16-63) Alkaline Phosphatase 193 U/L (46-116) Total Protein 6.0 g/dL (6.4-8.2) Albumin 1.8 g/dL (3.4-5.0) Albumin/Globulin Ratio 0.4 (1.0-1.7) O2 Saturation 85 % (92-99) Arterial Blood pH 7.29 (7.35-7.45) Arterial Blood pCO2 at Patient Temp 45 mmHg (35-46) Arterial Blood pO2 at Patient Temp 54 mmHg (65-108) Arterial Blood HCO3 21 mmol/L (21-28) Arterial Blood Base Excess -5 mmol/L (-3-3) FiO2 50 Microbiology Micro Microbiology 12/27/20 Blood Culture - Final, Complete NO GROWTH AFTER 5 DAYS 12/22/20 Gram Stain Evaluation - Final, Complete 12/22/20 Respiratory Culture - Final, Complete 12/07/20 Urine Culture - Final, Complete 12/04/20 Gram Stain - Final, Complete 12/04/20 Aerobic and Anaerobic Culture - Final, Complete Review of Systems Constitutional: yes: unresponsive Ears/Nose/Throat: Yes: no symptom reported Eyes: Yes: no symptom reported Pulmonary: Yes no symptom reported Gastrointestional: Yes: no symptom reported Genitourinary: Yes: no symptom reported Musculoskeletal: Yes: no symptom reported Skin: Yes no symptom reported Psychiatric/Neurological: Yes: no symptom reported Endocrine: Yes: no symptom reported Physical Exam HEENT: Neck Supple W Full Motion Chest: Symmetric LUNGS: Other (mechanical vent ) Heart: irregularly irregular (afib) Abdomen: Soft N/T, Other (soft, OG with bloodtinge drain currently) Extremities: Other (2-3+ bilateral LE pitting edema; LE DPs dopplerable) Neurology: other (sedated) Assessment Assessment 1. Weakness, mechanical fall with right knee effusion: s/p I & D 2. Sepsis, MSSA bacteremia: no intracardiac vegetation per SOO. 3. SSS, s/p PPM. generator change ([employer]) 11/01/2020. normal function 4. CAD: clinically stable 5. Permanent AFIB: rate controlled with intermittent v-pacing. 6. Coagulopathy: he has been off ASA and coumadin for a while. INR 1.8 7. Chronic diastolic CHF; echo with normal EF and WM 8. GUERO; on hemodialysis 9. HTN: Presently hypotensive needing pressor support 10. HLP: on statin 11. Anemia with GI bleed 12. Acute respiratory failure: intubated/vent Recommendations Poor candidate for OAC given anemia Metoprolol on hold while on levophed/vasopressin. monitor rhythm Fluid offloading via HD Ongoing treatment of sepsis/bacteremia per ID team Supportive care. Poor prognosis Justicifation of Admission Dx: Justifications for Admission: Justification of Admission Dx: N/A IRMA GONZALES MD 01/06/21 7567: CARDIO Progress Notes Assessment Assessment Patient seen and examined. Agree with INTERNAL SPECIALIST's assessment and plan. Acute respiratory failure, remains intubated and needing pressor support. Continue vent management per pulmonary team and management of sepsis per ID team. Permanent atrial fibrillation rate controlled. Telemetry showed intermittent ventricular pacing. He is poor candidate for long-term anticoagulation. Continue hemodialysis per nephrology team. Multisystem organ failure. Poor prognosis MINERVA QUINONEZ APRN Jan 06, 2021 09:24 IRMA GONZALES MD Jan 06, 2021 14:48
--- NOTE | 2021-01-06 09:37 | PDOC ---
G I PROGRESS NOTE Reason for Follow-up Liver failure/GI bleed Subjective Unresponsive Physical Exam Lungs decreased BS CV S1 S2 ABD mildly distended, hypoactive BS Review of Relevant I have reviewed the following items mel (where applicable) has been applied. Labs Laboratory Tests Test 01/04/21 10:00 01/04/21 10:56 01/04/21 16:30 01/05/21 06:04 White Blood Count 24.0 x10^3/uL (4.0-11.0) Red Blood Count 2.80 x10^6/uL (4.30-5.70) Hemoglobin 8.4 g/dL (13.0-17.5) Hematocrit 25.9 % (39.0-53.0) Mean Corpuscular Volume 93 fL (79-100) Mean Corpuscular Hemoglobin 30 pg (25-35) Mean Corpuscular Hemoglobin Concent 32 g/dL (31-37) Red Cell Distribution Width 29.8 % (11.5-14.5) Platelet Count 108 x10^3/uL (140-400) 109 x10^3/uL (140-400) Prothrombin Time 20.1 SEC (11.7-14.0) Prothromb Time International Ratio 1.7 (0.8-1.1) Activated Partial Thromboplast Time 61 SEC (24-38) Fibrinogen 103 mg/dL (200-440) D-Dimer (Stephanie) > 20.00 ug/mlFEU Glucose (Fingerstick) 66 mg/dL (70-99) Sodium Level 130 mmol/L (136-145) Potassium Level 4.3 mmol/L (3.5-5.1) Chloride Level 94 mmol/L (98-107) Carbon Dioxide Level 25 mmol/L (21-32) Anion Gap 11 (6-14) Blood Urea Nitrogen 34 mg/dL (8-26) Creatinine 3.1 mg/dL (0.7-1.3) Estimated GFR (Cockcroft-Gault) 19.3 Glucose Level 45 mg/dL (70-99) Calcium Level 7.0 mg/dL (8.5-10.1) Phosphorus Level 4.0 mg/dL (2.6-4.7) Test 01/05/21 07:03 01/05/21 07:20 01/05/21 08:00 01/05/21 08:02 Glucose (Fingerstick) 106 mg/dL (70-99) 79 mg/dL (70-99) O2 Saturation 88 % (92-99) Arterial Blood pH 7.34 (7.35-7.45) Arterial Blood pCO2 at Patient Temp 38 mmHg (35-46) Arterial Blood pO2 at Patient Temp 55 mmHg (65-108) Arterial Blood HCO3 20 mmol/L (21-28) Arterial Blood Base Excess -5 mmol/L (-3-3) FiO2 40% ac 16/500/5 White Blood Count 23.0 x10^3/uL (4.0-11.0) Red Blood Count 2.75 x10^6/uL (4.30-5.70) Hemoglobin 8.2 g/dL (13.0-17.5) Hematocrit 25.6 % (39.0-53.0) Mean Corpuscular Volume 93 fL (79-100) Mean Corpuscular Hemoglobin 30 pg (25-35) Mean Corpuscular Hemoglobin Concent 32 g/dL (31-37) Red Cell Distribution Width 29.6 % (11.5-14.5) Platelet Count 111 x10^3/uL (140-400) Neutrophils (%) (Auto) 93 % (31-73) Lymphocytes (%) (Auto) 2 % (24-48) Monocytes (%) (Auto) 5 % (0-9) Eosinophils (%) (Auto) 0 % (0-3) Basophils (%) (Auto) 0 % (0-3) Neutrophils # (Auto) 21.3 x10^3/uL (1.8-7.7) Lymphocytes # (Auto) 0.6 x10^3/uL (1.0-4.8) Monocytes # (Auto) 1.0 x10^3/uL (0.0-1.1) Eosinophils # (Auto) 0.1 x10^3/uL (0.0-0.7) Basophils # (Auto) 0.0 x10^3/uL (0.0-0.2) Segmented Neutrophils % 77 % (35-66) Band Neutrophils % 17 % (0-9) Lymphocytes % 3 % (24-48) Monocytes % 2 % (0-10) Metamyelocytes % 1 % (0-0) Toxic Granulation Present Platelet Estimate Decreased (ADEQUATE) Large Platelets Few Giant Platelets Occ Poikilocytosis Present Anisocytosis Marked Target Cells Present Acanthocytes Present Prothrombin Time 20.5 SEC (11.7-14.0) Prothromb Time International Ratio 1.8 (0.8-1.1) Test 01/05/21 11:36 01/05/21 11:56 01/05/21 13:56 01/05/21 13:59 Glucose (Fingerstick) 24 mg/dL (70-99) 164 mg/dL (70-99) 101 mg/dL (70-99) 100 mg/dL (70-99) Test 01/05/21 17:48 01/05/21 18:08 01/06/21 00:21 01/06/21 05:16 Glucose (Fingerstick) 60 mg/dL (70-99) 111 mg/dL (70-99) 97 mg/dL (70-99) 94 mg/dL (70-99) Test 01/06/21 06:30 01/06/21 07:40 White Blood Count 21.8 x10^3/uL (4.0-11.0) Red Blood Count 2.60 x10^6/uL (4.30-5.70) Hemoglobin 7.7 g/dL (13.0-17.5) Hematocrit 24.4 % (39.0-53.0) Mean Corpuscular Volume 94 fL (79-100) Mean Corpuscular Hemoglobin 30 pg (25-35) Mean Corpuscular Hemoglobin Concent 32 g/dL (31-37) Red Cell Distribution Width 29.1 % (11.5-14.5) Platelet Count 104 x10^3/uL (140-400) Neutrophils (%) (Auto) 93 % (31-73) Lymphocytes (%) (Auto) 2 % (24-48) Monocytes (%) (Auto) 4 % (0-9) Eosinophils (%) (Auto) 0 % (0-3) Basophils (%) (Auto) 1 % (0-3) Neutrophils # (Auto) 20.2 x10^3/uL (1.8-7.7) Lymphocytes # (Auto) 0.5 x10^3/uL (1.0-4.8) Monocytes # (Auto) 0.9 x10^3/uL (0.0-1.1) Eosinophils # (Auto) 0.0 x10^3/uL (0.0-0.7) Basophils # (Auto) 0.1 x10^3/uL (0.0-0.2) Sodium Level 125 mmol/L (136-145) Potassium Level 4.7 mmol/L (3.5-5.1) Chloride Level 92 mmol/L (98-107) Carbon Dioxide Level 24 mmol/L (21-32) Anion Gap 9 (6-14) Blood Urea Nitrogen 44 mg/dL (8-26) Creatinine 4.0 mg/dL (0.7-1.3) Estimated GFR (Cockcroft-Gault) 14.4 BUN/Creatinine Ratio 11 (6-20) Glucose Level 132 mg/dL (70-99) Calcium Level 6.5 mg/dL (8.5-10.1) Phosphorus Level 3.5 mg/dL (2.6-4.7) Magnesium Level 2.0 mg/dL (1.8-2.4) Total Bilirubin 14.7 mg/dL (0.2-1.0) Aspartate Amino Transf (AST/SGOT) 118 U/L (15-37) Alanine Aminotransferase (ALT/SGPT) 21 U/L (16-63) Alkaline Phosphatase 193 U/L (46-116) Total Protein 6.0 g/dL (6.4-8.2) Albumin 1.8 g/dL (3.4-5.0) Albumin/Globulin Ratio 0.4 (1.0-1.7) O2 Saturation 85 % (92-99) Arterial Blood pH 7.29 (7.35-7.45) Arterial Blood pCO2 at Patient Temp 45 mmHg (35-46) Arterial Blood pO2 at Patient Temp 54 mmHg (65-108) Arterial Blood HCO3 21 mmol/L (21-28) Arterial Blood Base Excess -5 mmol/L (-3-3) FiO2 50 Laboratory Tests Test 01/05/21 11:36 01/05/21 11:56 01/05/21 13:56 01/05/21 13:59 Glucose (Fingerstick) 24 mg/dL (70-99) 164 mg/dL (70-99) 101 mg/dL (70-99) 100 mg/dL (70-99) Test 01/05/21 17:48 01/05/21 18:08 01/06/21 00:21 01/06/21 05:16 Glucose (Fingerstick) 60 mg/dL (70-99) 111 mg/dL (70-99) 97 mg/dL (70-99) 94 mg/dL (70-99) Test 01/06/21 06:30 01/06/21 07:40 White Blood Count 21.8 x10^3/uL (4.0-11.0) Red Blood Count 2.60 x10^6/uL (4.30-5.70) Hemoglobin 7.7 g/dL (13.0-17.5) Hematocrit 24.4 % (39.0-53.0) Mean Corpuscular Volume 94 fL (79-100) Mean Corpuscular Hemoglobin 30 pg (25-35) Mean Corpuscular Hemoglobin Concent 32 g/dL (31-37) Red Cell Distribution Width 29.1 % (11.5-14.5) Platelet Count 104 x10^3/uL (140-400) Neutrophils (%) (Auto) 93 % (31-73) Lymphocytes (%) (Auto) 2 % (24-48) Monocytes (%) (Auto) 4 % (0-9) Eosinophils (%) (Auto) 0 % (0-3) Basophils (%) (Auto) 1 % (0-3) Neutrophils # (Auto) 20.2 x10^3/uL (1.8-7.7) Lymphocytes # (Auto) 0.5 x10^3/uL (1.0-4.8) Monocytes # (Auto) 0.9 x10^3/uL (0.0-1.1) Eosinophils # (Auto) 0.0 x10^3/uL (0.0-0.7) Basophils # (Auto) 0.1 x10^3/uL (0.0-0.2) Sodium Level 125 mmol/L (136-145) Potassium Level 4.7 mmol/L (3.5-5.1) Chloride Level 92 mmol/L (98-107) Carbon Dioxide Level 24 mmol/L (21-32) Anion Gap 9 (6-14) Blood Urea Nitrogen 44 mg/dL (8-26) Creatinine 4.0 mg/dL (0.7-1.3) Estimated GFR (Cockcroft-Gault) 14.4 BUN/Creatinine Ratio 11 (6-20) Glucose Level 132 mg/dL (70-99) Calcium Level 6.5 mg/dL (8.5-10.1) Phosphorus Level 3.5 mg/dL (2.6-4.7) Magnesium Level 2.0 mg/dL (1.8-2.4) Total Bilirubin 14.7 mg/dL (0.2-1.0) Aspartate Amino Transf (AST/SGOT) 118 U/L (15-37) Alanine Aminotransferase (ALT/SGPT) 21 U/L (16-63) Alkaline Phosphatase 193 U/L (46-116) Total Protein 6.0 g/dL (6.4-8.2) Albumin 1.8 g/dL (3.4-5.0) Albumin/Globulin Ratio 0.4 (1.0-1.7) O2 Saturation 85 % (92-99) Arterial Blood pH 7.29 (7.35-7.45) Arterial Blood pCO2 at Patient Temp 45 mmHg (35-46) Arterial Blood pO2 at Patient Temp 54 mmHg (65-108) Arterial Blood HCO3 21 mmol/L (21-28) Arterial Blood Base Excess -5 mmol/L (-3-3) FiO2 50 Microbiology 12/27/20 Blood Culture - Final, Complete NO GROWTH AFTER 5 DAYS 12/22/20 Gram Stain Evaluation - Final, Complete 12/22/20 Respiratory Culture - Final, Complete 12/07/20 Urine Culture - Final, Complete 12/04/20 Gram Stain - Final, Complete 12/04/20 Aerobic and Anaerobic Culture - Final, Complete Medications Current Medications Ceftriaxone Sodium (Rocephin) 1 gm 1X ONCE IVP Last administered on 11/28/20at 13:30; Start 11/28/20 at 13:30; Stop 11/28/20 at 13:31; Status DC Azithromycin 500 mg/Sodium Chloride 250 ml @ 250 mls/hr 1X ONCE IV ; Start 11/28/20 at 13:30; Stop 11/28/20 at 14:29; Status UNV Azithromycin 250 ml @ 250 mls/hr 1X ONCE IV Last administered on 11/28/20at 15:11; Start 11/28/20 at 13:30; Stop 11/28/20 at 14:29; Status DC Acetaminophen (Tylenol) 1,000 mg 1X ONCE PO Last administered on 11/28/20at 15:10; Start 11/28/20 at 14:45; Stop 11/28/20 at 14:46; Status DC Potassium Chloride/Water 100 ml @ 50 mls/hr 1X ONCE IV Last administered on 11/28/20at 16:20; Start 11/28/20 at 14:45; Stop 11/28/20 at 16:44; Status DC Potassium Chloride (Klor-Con) 40 meq 1X ONCE PO Last administered on 11/28/20at 16:21; Start 11/28/20 at 14:45; Stop 11/28/20 at 14:46; Status DC Sodium Chloride 1,000 ml @ 1,000 mls/hr 1X ONCE IV Last administered on 11/28/20at 17:41; Start 11/28/20 at 17:45; Stop 11/28/20 at 18:44; Status DC Acetaminophen (Tylenol) 650 mg PRN Q6HRS PRN PO MILD PAIN / TEMP > 100.3'F Last administered on 11/28/20at 20:36; Start 11/28/20 at 20:30 Influenza Virus Vaccine Quadrival (Flulaval Quad [id number] Syringe) 0.5 ml ONCE ONCE VAX IM Last administered on 11/29/20at 10:06; Start 11/29/20 at 09:00; Stop 11/29/20 at 09:01; Status DC Acetaminophen/ Hydrocodone Bitart (Lortab 5/325) 1 tab PRN Q4HRS PRN PO PAIN mod/severe Last administered on 12/05/20at 17:38; Start 11/28/20 at 22:45; Stop 12/05/20 at 19:50; Status DC Ceftriaxone Sodium (Rocephin) 1 gm Q24H IVP ; Start 11/29/20 at 13:00; Stop 11/29/20 at 13:11; Status DC Azithromycin 250 ml @ 250 mls/hr DAILY ONCE IV ; Start 11/30/20 at 09:00; Stop 11/30/20 at 09:59; Status UNV Azithromycin 500 mg/Sodium Chloride 250 ml @ 250 mls/hr Q24H IV ; Start 11/29/20 at 15:00; Stop 11/29/20 at 13:50; Status DC Acetaminophen (Tylenol) 650 mg QHS PO Last administered on 01/02/21at 21:42; Start 11/29/20 at 21:00 Aspirin (Aspirin Chewable) 81 mg DAILY PO Last administered on 12/19/20at 12:40; Start 11/30/20 at 09:00; Stop 12/19/20 at 14:26; Status DC Docusate Sodium (Colace) 100 mg PRN BID PRN PO HARD STOOLS Last administered on 12/01/20at 12:10; Start 11/29/20 at 09:45; Stop 12/17/20 at 17:41; Status DC Warfarin Sodium (Coumadin) 3.75 mg DAILY PO ; Start 11/30/20 at 09:00; Status UNV Atorvastatin Calcium (Lipitor) 20 mg QHS PO Last administered on 12/18/20at 20:29; Start 11/29/20 at 21:00; Stop 12/19/20 at 14:26; Status DC Daptomycin 500 mg/ Sodium Chloride 50 ml @ 100 mls/hr Q24H IV Last administered on 11/30/20at 13:19; Start 11/29/20 at 13:00; Stop 12/01/20 at 07:32; Status DC Ceftriaxone Sodium (Rocephin) 2 gm Q24H IVP Last administered on 11/30/20at 13:21; Start 11/29/20 at 14:00; Stop 12/01/20 at 09:19; Status DC Lactobacillus Rhamnosus (Culturelle) 1 cap BID PO Last administered on 12/24/20at 22:38; Start 11/29/20 at 21:00; Stop 12/27/20 at 21:38; Status DC Daptomycin 580 mg/ Sodium Chloride 50 ml @ 100 mls/hr Q24H IV Last administered on 12/01/20at 08:52; Start 12/01/20 at 07:30; Stop 12/01/20 at 09:19; Status DC Nafcillin Sodium 2 gm/Dextrose 100 ml @ 200 mls/hr Q4HRS IV Last administered on 12/21/20at 04:11; Start 12/01/20 at 10:00; Stop 12/21/20 at 08:19; Status DC Carvedilol (Coreg) 6.25 mg DAILY PO ; Start 12/01/20 at 12:00; Stop 12/01/20 at 12:00; Status DC Furosemide (Lasix) 40 mg DAILY PO Last administered on 12/07/20at 08:28; Start 12/01/20 at 12:00; Stop 12/07/20 at 14:46; Status DC Potassium Chloride (Klor-Con) 20 meq [id number] PO Last administered on 12/07/20at 08:28; Start 12/02/20 at 08:00; Stop 12/07/20 at 14:46; Status DC Potassium Chloride (Klor-Con) 20 meq 1X ONCE PO Last administered on 12/01/20at 12:12; Start 12/01/20 at 11:15; Stop 12/01/20 at 11:27; Status DC Carvedilol (Coreg) 3.125 mg BIDWMEALS PO Last administered on 12/03/20at 16:39; Start 12/01/20 at 12:00; Stop 12/05/20 at 20:11; Status DC Lidocaine HCl (Lidocaine 1% 20ml Vial) 10 ml 1X ONCE INJ ; Start 12/01/20 at 16:00; Stop 12/01/20 at 16:01; Status DC Ringer's Solution 1,000 ml @ 50 mls/hr Q20H IV Last administered on 12/05/20at 12:10; Start 12/05/20 at 07:00; Stop 12/05/20 at 18:59; Status DC Phytonadione (Vitamin K Ampule) 10 mg 1X ONCE SQ Last administered on 12/02/20at 11:09; Start 12/02/20 at 10:45; Stop 12/02/20 at 10:46; Status DC Sodium Chloride (Saline Mist Nasal) 1 hiro PRN Q1HR PRN NS NASAL CONGESTION Last administered on 12/20/20at 23:52; Start 12/02/20 at 20:45 Phytonadione (Vitamin K Ampule) 10 mg 1X ONCE SQ Last administered on 12/03/20at 11:17; Start 12/03/20 at 11:00; Stop 12/03/20 at 11:01; Status DC Docusate Sodium (Colace) 100 mg BID PO Last administered on 12/20/20at 08:52; Start 12/03/20 at 21:00; Stop 12/21/20 at 11:19; Status DC Polyethylene Glycol (miraLAX PACKET) 17 gm PRN DAILY PRN PO CONSTIPATION Last administered on 12/30/20at 07:24; Start 12/03/20 at 19:00 Fentanyl Citrate (Fentanyl 2ml Vial) 25 mcg PRN Q5MIN PRN IVP MILD PAIN 1-3; Start 12/04/20 at 09:30; Stop 12/05/20 at 09:29; Status DC Fentanyl Citrate (Fentanyl 2ml Vial) 50 mcg PRN Q5MIN PRN IVP MODERATE PAIN 4- 6; Start 12/04/20 at 09:30; Stop 12/05/20 at 09:29; Status DC Morphine Sulfate (Morphine Sulfate) 1 mg PRN Q10MIN PRN IVP SEVERE PAIN 7-10; Start 12/04/20 at 09:30; Stop 12/05/20 at 09:29; Status DC Ringer's Solution 1,000 ml @ 30 mls/hr Q24H IV ; Start 12/04/20 at 09:30; Stop 12/04/20 at 21:29; Status DC Hydromorphone HCl (Dilaudid) 0.5 mg PRN Q10MIN PRN IVP SEVERE PAIN 7-10, 2nd CHOICE; Start 12/04/20 at 09:30; Stop 12/05/20 at 09:29; Status DC Prochlorperazine Edisylate (Compazine) 5 mg PACU PRN PRN IVP NAUSEA, MRX1; Start 12/04/20 at 09:30; Stop 12/05/20 at 09:29; Status DC Propofol (Diprivan) 200 mg STK-MED ONCE IV ; Start 12/04/20 at 10:43; Stop 12/04/20 at 10:43; Status DC Lidocaine HCl (Lidocaine Pf 2% Vial) 5 ml STK-MED ONCE .ROUTE ; Start 12/04/20 at 10:43; Stop 12/04/20 at 10:43; Status DC Phenylephrine HCl (PHENYLEPHRINE in 0.9% NACL PF) 1 mg STK-MED ONCE IV ; Start 12/04/20 at 10:43; Stop 12/04/20 at 10:43; Status DC Sevoflurane (Ultane) 60 ml STK-MED ONCE IH ; Start 12/04/20 at 11:14; Stop 12/04/20 at 11:14; Status DC Dexamethasone Sodium Phosphate (Decadron) 4 mg STK-MED ONCE .ROUTE ; Start 12/04/20 at 11:26; Stop 12/04/20 at 11:26; Status DC Ondansetron HCl (Zofran) 4 mg STK-MED ONCE .ROUTE ; Start 12/04/20 at 11:26; Stop 12/04/20 at 11:26; Status DC Fentanyl Citrate (Fentanyl 2ml Vial) 100 mcg STK-MED ONCE .ROUTE ; Start 12/04/20 at 11:26; Stop 12/04/20 at 11:26; Status DC Daptomycin 500 mg/ Sodium Chloride 50 ml @ 100 mls/hr Q24H IV Last administered on 12/11/20at 10:46; Start 12/05/20 at 10:00; Stop 12/11/20 at 17:00; Status DC Propofol (Diprivan) 200 mg STK-MED ONCE IV ; Start 12/05/20 at 09:29; Stop 12/05/20 at 09:30; Status DC Lidocaine HCl (Viscous Lidocaine) 15 ml STK-MED ONCE .ROUTE ; Start 12/05/20 at 10:06; Stop 12/05/20 at 10:06; Status DC Lidocaine HCl (Xylocaine 2% Topical 30gm Tube) 30 hiro STK-MED ONCE TP ; Start 12/05/20 at 10:06; Stop 12/05/20 at 10:06; Status DC Benzocaine (Hurricaine One) 1 spray STK-MED ONCE .ROUTE ; Start 12/05/20 at 10:06; Stop 12/05/20 at 10:07; Status DC Acetaminophen/ Hydrocodone Bitart (Lortab 10/325) 1 tab PRN Q4HRS PRN PO MODERATE TO SEVERE PAIN Last administered on 12/24/20at 14:02; Start 12/05/20 at 20:00 Zolpidem Tartrate (Ambien) 5 mg PRN QHS PRN PO INSOMNIA Last administered on 12/23/20at 22:11; Start 12/05/20 at 20:00 Sodium Chloride 1,000 ml @ 1,000 mls/hr 1X ONCE IV Last administered on 12/06/20at 09:32; Start 12/06/20 at 09:15; Stop 12/06/20 at 10:14; Status DC Sodium Chloride 1,000 ml @ 100 mls/hr 1X ONCE IV Last administered on 12/06/20at 15:30; Start 12/06/20 at 13:15; Stop 12/06/20 at 23:14; Status DC Sodium Chloride 1,000 ml @ 100 mls/hr 1X ONCE IV Last administered on at 13:24; Start 12/07/20 at 11:45; Stop 12/08/20 at 10:55; Status DC Metoprolol Succinate (Toprol Xl) 25 mg DAILY PO Last administered on 12/24/20at 08:41; Start 12/09/20 at 09:00; Stop 12/25/20 at 10:43; Status DC Potassium Chloride (Klor-Con) 20 meq 1X ONCE PO Last administered on 12/10/20at 18:52; Start 12/10/20 at 19:00; Stop 12/10/20 at 19:01; Status DC Daptomycin 500 mg/ Sodium Chloride 50 ml @ 100 mls/hr Q48H IV Last administered on 12/25/20at 17:33; Start 12/13/20 at 10:00; Stop 12/26/20 at 11:55; Status DC Lidocaine HCl (Buffered Lidocaine 1%) 3 ml STK-MED ONCE .ROUTE ; Start 12/12/20 at 10:27; Stop 12/12/20 at 10:27; Status DC Sodium Chloride 1,000 ml @ 1,000 mls/hr Q1H PRN IV hypotension; Start 12/12/20 at 12:00; Stop 12/12/20 at 17:59; Status DC Albumin Human 200 ml @ 200 mls/hr 1X PRN PRN IV Hypotension; Start 12/12/20 at 12:00; Stop 12/12/20 at 17:59; Status DC Sodium Chloride (Normal Saline Flush) 10 ml 1X PRN PRN IV AP catheter pack; Start 12/12/20 at 12:00; Stop 12/13/20 at 11:59; Status DC Sodium Chloride (Normal Saline Flush) 10 ml 1X PRN PRN IV DIETARY SERVICE AIDE catheter pack; Start 12/12/20 at 12:00; Stop 12/13/20 at 11:59; Status DC Info (PHARMACY MONITORING -- do not chart) 1 each PRN DAILY PRN MC SEE COMMENTS; Start 12/12/20 at 12:00; Status UNV Info (PHARMACY MONITORING -- do not chart) 1 each PRN DAILY PRN MC SEE COMMENTS; Start 12/12/20 at 12:00; Status Cancel Lidocaine HCl (Buffered Lidocaine 1%) 4 ml 1X ONCE INJ Last administered on 12/12/20at 13:11; Start 12/12/20 at 13:15; Stop 12/12/20 at 13:18; Status DC Sodium Chloride 1,000 ml @ 1,000 mls/hr Q1H PRN IV hypotension; Start 12/13/20 at 09:30; Stop 12/13/20 at 15:29; Status DC Sodium Chloride 1,000 ml @ 400 mls/hr Q2H30M PRN IV PATENCY; Start 12/13/20 at 09:30; Stop 12/13/20 at 21:29; Status DC Info (PHARMACY MONITORING -- do not chart) 1 each PRN DAILY PRN MC SEE COMMENTS; Start 12/13/20 at 09:30; Status UNV Info (PHARMACY MONITORING -- do not chart) 1 each PRN DAILY PRN MC SEE COMMENTS ; Start 12/13/20 at 09:30; Status UNV Epoetin Krishna-epbx (RETACRIT for ESRD PTS) 10,000 unit [id number]@2100 SQ Last administered on 01/04/21at 21:15; Start 12/14/20 at 21:00 Sodium Chloride 1,000 ml @ 1,000 mls/hr Q1H PRN IV hypotension; Start 12/15/20 at 07:00; Stop 12/15/20 at 12:59; Status DC Sodium Chloride 1,000 ml @ 400 mls/hr Q2H30M PRN IV PATENCY; Start 12/15/20 at 07:00; Stop 12/15/20 at 18:59; Status DC Info (PHARMACY MONITORING -- do not chart) 1 each PRN DAILY PRN MC SEE COMMENTS; Start 12/15/20 at 07:00; Stop 12/15/20 at 07:00; Status DC Info (PHARMACY MONITORING -- do not chart) 1 each PRN DAILY PRN MC SEE COMMENTS; Start 12/15/20 at 07:00; Stop 12/15/20 at 07:00; Status DC Sodium Chloride 1,000 ml @ 1,000 mls/hr Q1H PRN IV hypotension; Start 12/17/20 at 10:30; Stop 12/17/20 at 16:29; Status DC Albumin Human 200 ml @ 200 mls/hr 1X PRN PRN IV Hypotension Last administered on 12/17/20at 11:15; Start 12/17/20 at 10:30; Stop 12/17/20 at 16:29; Status DC Sodium Chloride 1,000 ml @ 400 mls/hr Q2H30M PRN IV PATENCY; Start 12/17/20 at 10:30; Stop 12/17/20 at 22:29; Status DC Info (PHARMACY MONITORING -- do not chart) 1 each PRN DAILY PRN MC SEE COMMENTS; Start 12/17/20 at 11:15; Stop 12/19/20 at 13:24; Status DC Info (PHARMACY MONITORING -- do not chart) 1 each PRN DAILY PRN MC SEE COMMENTS; Start 12/17/20 at 11:15; Status UNV Docusate Sodium (Colace) 100 mg PRN BID PRN PO HARD STOOLS Last administered on 12/30/20at 07:24; Start 12/17/20 at 17:45 Sodium Chloride 1,000 ml @ 30 mls/hr Q24H IV Last administered on 12/21/20at 20:34; Start 12/18/20 at 18:45; Stop 12/27/20 at 13:08; Status DC Sodium Chloride 1,000 ml @ 1,000 mls/hr Q1H PRN IV hypotension; Start 12/19/20 at 08:30; Stop 12/19/20 at 14:29; Status DC Albumin Human 100 ml @ 100 mls/hr 1X PRN PRN IV Hypotension; Start 12/19/20 at 08:30; Stop 12/19/20 at 14:29; Status DC Sodium Chloride 1,000 ml @ 400 mls/hr Q2H30M PRN IV PATENCY; Start 12/19/20 at 08:30; Stop 12/19/20 at 20:29; Status DC Info (PHARMACY MONITORING -- do not chart) 1 each PRN DAILY PRN MC SEE COMMENTS; Start 12/19/20 at 08:30; Stop 12/19/20 at 13:24; Status DC Info (PHARMACY MONITORING -- do not chart) 1 each PRN DAILY PRN MC SEE COMMENTS; Start 12/19/20 at 08:30; Stop 12/21/20 at 07:55; Status DC Atorvastatin Calcium (Lipitor) 40 mg QHS PO Last administered on 01/01/21at 20:57; Start 12/19/20 at 21:00; Stop 01/02/21 at 10:04; Status DC Pantoprazole Sodium (Protonix) 40 mg DAILYAC PO Last administered on 12/24/20at 06:15; Start 12/20/20 at 09:15; Stop 12/26/20 at 10:17; Status DC Sodium Chloride 1,000 ml @ 1,000 mls/hr Q1H PRN IV hypotension; Start 12/21/20 at 08:00; Stop 12/21/20 at 13:59; Status DC Sodium Chloride 1,000 ml @ 400 mls/hr Q2H30M PRN IV PATENCY; Start 12/21/20 at 08:00; Stop 12/21/20 at 19:59; Status DC Info (PHARMACY MONITORING -- do not chart) 1 each PRN DAILY PRN MC SEE COM MENTS; Start 12/21/20 at 08:00; Stop 12/21/20 at 07:54; Status DC Info (PHARMACY MONITORING -- do not chart) 1 each PRN DAILY PRN MC SEE COMMENTS; Start 12/21/20 at 08:00; Status Cancel Cefepime HCl (Maxipime) 1 gm Q24H IVP Last administered on 12/25/20at 12:32; Start 12/22/20 at 11:00; Stop 12/26/20 at 11:56; Status DC Furosemide (Lasix) 40 mg 1X ONCE IVP Last administered on 12/22/20at 11:17; Start 12/22/20 at 11:15; Stop 12/22/20 at 11:16; Status DC Sodium Chloride 1,000 ml @ 1,000 mls/hr Q1H PRN IV hypotension; Start 12/23/20 at 10:15; Stop 12/23/20 at 16:14; Status DC Albumin Human 200 ml @ 200 mls/hr 1X PRN PRN IV Hypotension; Start 12/23/20 at 10:15; Stop 12/23/20 at 16:14; Status DC Sodium Chloride (Normal Saline Flush) 10 ml 1X PRN PRN IV AP catheter pack; Start 12/23/20 at 10:15; Stop 12/24/20 at 10:14; Status DC Sodium Chloride (Normal Saline Flush) 10 ml 1X PRN PRN IV DIETARY SERVICE AIDE catheter pack; Start 12/23/20 at 10:15; Stop 12/24/20 at 10:14; Status DC Sodium Chloride 1,000 ml @ 400 mls/hr Q2H30M PRN IV PATENCY; Start 12/23/20 at 10:15; Stop 12/23/20 at 22:14; Status DC Info (PHARMACY MONITORING -- do not chart) 1 each PRN DAILY PRN MC SEE COMMENTS; Start 12/23/20 at 10:15; Status UNV Info (PHARMACY MONITORING -- do not chart) 1 each PRN DAILY PRN MC SEE COMMENTS; Start 12/23/20 at 10:15; Status Cancel Aspirin (Ecotrin) 81 mg [id number] PO Last administered on 12/24/20at 08:40; Start 12/23/20 at 13:00; Stop 12/27/20 at 10:33; Status DC Cefazolin Sodium/ Dextrose 50 ml @ 100 mls/hr 1X PREOP PRN IV PRIOR TO PROCEDURE Last administered on 12/23/20at 14:46; Start 12/23/20 at 14:00; Stop 12/24/20 at 13:59; Status DC Midazolam HCl (Versed) 2 mg 1X ONCE IV Last administered on 12/23/20at 14:00; Start 12/23/20 at 14:00; Stop 12/23/20 at 14:06; Status DC Fentanyl Citrate (Fentanyl 2ml Vial) 100 mcg 1X ONCE IV Last administered on 12/23/20at 14:00; Start 12/23/20 at 14:00; Stop 12/23/20 at 14:06; Status DC Cefazolin Sodium/ Dextrose 50 ml @ As Directed STK-MED ONCE IV ; Start 12/23/20 at 13:57; Stop 12/23/20 at 13:58; Status DC Lidocaine/ Epinephrine (LIDOCAINE 1%-EPI 1:100,000 Multi-Dose) 20 ml STK-MED ONCE .ROUTE ; Start 12/23/20 at 13:58; Stop 12/23/20 at 13:58; Status DC Lidocaine/ Epinephrine (LIDOCAINE 1%-EPI 1:100,000 Multi-Dose) 20 ml 1X ONCE INJ Last administered on 12/23/20at 14:15; Start 12/23/20 at 14:15; Stop 12/23/20 at 14:16; Status DC Linezolid (Zyvox) 600 mg BID PO Last administered on 12/24/20at 22:38; Start 12/24/20 at 11:00; Stop 12/25/20 at 10:48; Status DC Magnesium Sulfate 50 ml @ 25 mls/hr PRN DAILY PRN IV for Mag < 1.7 on am labs; Start 12/25/20 at 09:15 Dextrose (Dextrose 50%-Water Syringe) 25 gm STK-MED ONCE IV ; Start 12/25/20 at 22:23; Stop 12/25/20 at 22:23; Status DC Furosemide (Lasix) 40 mg 1X ONCE IVP Last administered on 12/25/20at 23:16; Start 12/25/20 at 23:00; Stop 12/25/20 at 23:05; Status DC Sodium Chloride 1,000 ml @ 1,000 mls/hr Q1H PRN IV hypotension; Start 12/26/20 at 08:45; Stop 12/26/20 at 14:44; Status DC Albumin Human 200 ml @ 200 mls/hr 1X ONCE IV Last administered on 12/27/20at 08:58; Start 12/26/20 at 08:45; Stop 12/26/20 at 09:44; Status DC Sodium Chloride 1,000 ml @ 400 mls/hr Q2H30M PRN IV PATENCY; Start 12/26/20 at 08:45; Stop 12/26/20 at 20:44; Status DC Info (PHARMACY MONITORING -- do not chart) 1 each PRN DAILY PRN MC SEE COMMENTS; Start 12/26/20 at 08:45; Status Cancel Pantoprazole Sodium (PROTONIX VIAL for IV PUSH) 40 mg DAILYAC IVP Last administered on 01/03/21at 10:24; Start 12/27/20 at 07:30; Stop 01/04/21 at 07:46; Status DC Dextrose (Dextrose 50%-Water Syringe) 25 gm STK-MED ONCE IV ; Start 12/26/20 at 10:54; Stop 12/26/20 at 10:55; Status DC Cefazolin Sodium (Ancef) 1 gm Q24H IVP Last administered on 12/26/20at 15:29; Start 12/26/20 at 16:00; Stop 12/27/20 at 10:37; Status DC Dextrose (Dextrose 50%-Water Syringe) 25 gm STK-MED ONCE IV ; Start 12/25/20 at 22:30; Stop 12/26/20 at 14:10; Status DC Norepinephrine Bitartrate 8 mg/ Dextrose 258 ml @ 18.286 mls/ hr CONT PRN IV PER PROTOCOL Last administered on 12/29/20at 05:57; Start 12/26/20 at 19:15; Stop 12/29/20 at 10:50; Status DC Fentanyl Citrate 30 ml @ 0 mls/hr CONT PRN IV SEE PROTOCOL Last administered on 12/30/20at 02:16; Start 12/26/20 at 19:15 Midazolam HCl 100 ml @ 0 mls/hr CONT PRN IV SEE PROTOCOL Last administered on 12/28/20at 22:31; Start 12/26/20 at 19:15 Vecuronium [place] (Norcuron Bolus) 6 mg PRN 1X PRN IV VENT INDUCTION; Start 12/26/20 at 19:15; Stop 12/27/20 at 19:14; Status DC Glycerin/ Hypromellose/ Polyethylene (Artificial Tears) 1 drop PRN Q1HR PRN OU DRY EYE Last administered on 01/06/21at 07:59; Start 12/26/20 at 19:15 Dexmedetomidine HCl 400 mcg/ Sodium Chloride 100 ml @ 4.725 mls/ hr CONT PRN IV PER PROTOCOL; Start 12/26/20 at 19:15 Midazolam HCl (Versed) 5 mg PRN 1X PRN IVP VENT INDUCTION; Start 12/26/20 at 19:15; Stop 12/27/20 at 19:14; Status DC Sodium Chloride 500 ml @ 500 mls/hr 1X PRN PRN IV SEE COMMENTS; Start 12/26/20 at 19:15 Atropine Sulfate (ATROPINE 0.5mg SYRINGE) 0.5 mg PRN Q5MIN PRN IV SEE COMMENTS; Start 12/26/20 at 19:15 Famotidine (Pepcid Vial) 20 mg BID IVP Last administered on 12/27/20at 09:00; Start 12/26/20 at 21:00; Stop 12/27/20 at 10:19; Status DC Ringer's Solution 1,000 ml @ 100 mls/hr Q10H IV Last administered on 12/28/20at 04:37; Start 12/26/20 at 19:30; Stop 12/29/20 at 10:28; Status DC Etomidate (Amidate) 20 mg STK-MED ONCE IV ; Start 12/26/20 at 19:19; Stop 12/26/20 at 19:19; Status DC Succinylcholine Chloride (Anectine) 200 mg 1X ONCE IV Last administered on 12/26/20at 19:38; Start 12/26/20 at 21:15; Stop 12/26/20 at 21:16; Status DC Etomidate (Amidate) 20 mg 1X ONCE IV Last administered on 12/26/20at 19:38; Start 12/26/20 at 21:15; Stop 12/26/20 at 21:16; Status DC Dextrose (Dextrose 50%-Water Syringe) 12.5 gm PRN Q15MIN PRN IV SEE COMMENTS Last administered on 01/05/21at 17:53; Start 12/27/20 at 07:30 Sodium Chloride 1,000 ml @ 1,000 mls/hr Q1H PRN IV hypotension; Start 12/27/20 at 08:15; Stop 12/27/20 at 14:14; Status DC Albumin Human 200 ml @ 200 mls/hr 1X PRN PRN IV Hypotension; Start 12/27/20 at 08:15; Stop 12/27/20 at 14:14; Status DC Sodium Chloride 1,000 ml @ 400 mls/hr Q2H30M PRN IV PATENCY; Start 12/27/20 at 08:15; Stop 12/27/20 at 20:14; Status DC Info (PHARMACY MONITORING -- do not chart) 1 each PRN DAILY PRN MC SEE COMMENTS; Start 12/27/20 at 08:15; Stop 12/28/20 at 09:54; Status DC Dextrose (Dextrose 50%-Water Syringe) 25 gm STK-MED ONCE IV ; Start 12/26/20 at 11:00; Stop 12/27/20 at 08:58; Status DC Phytonadione (Vitamin K Ampule) 10 mg 1X ONCE SQ Last administered on 12/27/20at 11:08; Start 12/27/20 at 09:45; Stop 12/27/20 at 09:49; Status DC Daptomycin 510 mg/ Sodium Chloride 50 ml @ 100 mls/hr QODAY IV Last administered on 01/06/21at 09:18; Start 12/27/20 at 12:00 Meropenem 500 mg/ Sodium Chloride 50 ml @ 100 mls/hr DAILY IV Last administered on 12/31/20at 08:05; Start 12/27/20 at 11:00; Stop 12/31/20 at 16:05; Status DC Linezolid (Zyvox) 600 mg BID PO Last administered on 12/27/20at 21:48; Start 12/27/20 at 12:00; Stop 12/28/20 at 08:25; Status DC Aspirin (Aspirin Chewable) 81 mg DAILYWBKFT PO Last administered on 12/28/20at 10:10; Start 12/27/20 at 12:00; Stop 12/28/20 at 11:44; Status DC Aspirin (Aspirin Chewable) 81 mg 1X ONCE PO ; Start 12/27/20 at 10:45; Stop 02/27/20 at 10:46; Status UNV Fentanyl Citrate 55 ml @ 0 mls/hr CONT PRN IV PAIN; Start 12/27/20 at 12:45; Status Cancel Sodium Chloride 1,000 ml @ 1,000 mls/hr Q1H PRN IV hypotension; Start 12/28/20 at 07:15; Stop 12/28/20 at 13:14; Status DC Albumin Human 200 ml @ 200 mls/hr 1X ONCE IV Last administered on 12/28/20at 08:22; Start 12/28/20 at 07:45; Stop 12/28/20 at 08:44; Status DC Sodium Chloride 1,000 ml @ 400 mls/hr Q2H30M PRN IV PATENCY; Start 12/28/20 at 07:15; Stop 12/28/20 at 19:14; Status DC Info (PHARMACY MONITORING -- do not chart) 1 each PRN DAILY PRN MC SEE COMMENTS; Start 12/28/20 at 07:15; Status Cancel Phytonadione (Vitamin K Ampule) 10 mg 1X ONCE SQ Last administered on 12/28/20at 10:10; Start 12/28/20 at 08:15; Stop 12/28/20 at 08:16; Status DC Potassium Phosphate 15 mmol/ Sodium Chloride 105 ml @ 52.5 mls/hr 1X ONCE IV Last administered on 12/28/20at 13:32; Start 12/28/20 at 14:00; Stop 12/28/20 at 15:59; Status DC Magnesium Sulfate 50 ml @ 25 mls/hr 1X ONCE IV Last administered on 12/28/20at 13:33; Start 12/28/20 at 12:45; Stop 12/28/20 at 14:44; Status DC Sodium Phosphate 40 mmol/Sodium Chloride 263.3333 ml @ 62.5 mls/hr 1X ONCE IV Last administered on 12/29/20at 09:51; Start 12/29/20 at 10:00; Stop 12/29/20 at 14:12; Status DC Norepinephrine Bitartrate 32 mg/ Dextrose 250 ml @ 4.603 mls/ hr CONT PRN IV SEE I/O RECORD Last administered on 01/06/21at 04:42; Start 12/29/20 at 11:00 Phytonadione (Vitamin K Ampule) 10 mg 1X ONCE SQ Last administered on 12/29/20at 11:40; Start 12/29/20 at 11:00; Stop 12/29/20 at 11:05; Status DC Sodium Chloride 1,000 ml @ 1,000 mls/hr Q1H PRN IV hypotension; Start 12/29/20 at 14:30; Stop 12/29/20 at 20:29; Status DC Sodium Chloride 1,000 ml @ 400 mls/hr Q2H30M PRN IV PATENCY; Start 12/29/20 at 14:30; Stop 12/30/20 at 02:29; Status DC Info (PHARMACY MONITORING -- do not chart) 1 each PRN DAILY PRN MC SEE ROSALBA TS; Start 12/29/20 at 14:30; Status Cancel Sodium Chloride 1,000 ml @ 1,000 mls/hr Q1H PRN IV hypotension; Start 12/30/20 at 07:00; Stop 12/30/20 at 12:59; Status DC Albumin Human 200 ml @ 200 mls/hr 1X ONCE IV Last administered on 12/30/20at 07:50; Start 12/30/20 at 07:00; Stop 12/30/20 at 07:59; Status DC Sodium Chloride 1,000 ml @ 400 mls/hr Q2H30M PRN IV PATENCY; Start 12/30/20 at 07:00; Stop 12/30/20 at 18:59; Status DC Info (PHARMACY MONITORING -- do not chart) 1 each PRN DAILY PRN MC SEE COM MENTS; Start 12/30/20 at 07:00; Status Cancel Dextrose 1,000 ml @ 30 mls/hr Q24H IV Last administered on 01/05/21at 05:39; Start 12/30/20 at 21:45; Stop 01/05/21 at 18:15; Status DC Magnesium Sulfate 50 ml @ 25 mls/hr 1X ONCE IV Last administered on 12/31/20at 23:39; Start 12/31/20 at 23:45; Stop 01/01/21 at 01:44; Status DC Nystatin (Nystop) 1 hiro BID TP Last administered on 01/06/21at 08:00; Start 01/02/21 at 09:15 Albumin Human 200 ml @ 200 mls/hr 1X PRN PRN IV Hypotension Last administered on 01/02/21at 09:43; Start 01/02/21 at 09:15; Stop 01/02/21 at 15:14; Status DC Info (PHARMACY MONITORING -- do not chart) 1 each PRN DAILY PRN MC SEE COMMENTS; Start 01/02/21 at 09:15; Status Cancel Sodium Chloride 1,000 ml @ 1,000 mls/hr Q1H PRN IV hypotension; Start 01/04/21 at 07:45; Stop 01/04/21 at 13:44; Status DC Albumin Human 200 ml @ 200 mls/hr 1X ONCE IV Last administered on 01/04/21at 13:50; Start 01/04/21 at 07:45; Stop 01/04/21 at 08:44; Status DC Sodium Chloride 1,000 ml @ 400 mls/hr Q2H30M PRN IV PATENCY; Start 01/04/21 at 07:45; Stop 01/04/21 at 19:44; Status DC Info (PHARMACY MONITORING -- do not chart) 1 each PRN DAILY PRN MC SEE COMMENTS; Start 01/04/21 at 07:45 Pantoprazole Sodium (PROTONIX VIAL for IV PUSH) 40 mg BID IVP Last administered on 01/06/21at 07:59; Start 01/04/21 at 09:00 Albumin Human 200 ml @ 200 mls/hr 1X ONCE IV Last administered on 01/04/21at 14:00; Start 01/04/21 at 14:00; Stop 01/04/21 at 14:59; Status DC Info (Tpn Per Pharmacy) 1 each PRN DAILY PRN MC SEE COMMENTS Last administered on 01/06/21at 09:14; Start 01/05/21 at 10:15 Sodium Chloride 70 meq/Potassium Chloride 50 meq/ Potassium Phosphate 5 mmol/ Magnesium Sulfate 5 meq/Calcium Gluconate 10 meq/ Multivitamins 10 ml/Zinc/Copper/ Manganese/ Selenium 1 ml/ Total Parenteral Nutrition/Amino Acids/Dextrose 1,200 ml @ 50 mls/hr TPN CONT IV Last administered on 01/05/21 at 22:17; Start 01/05/21 at 22:00; Stop 01/06/21 at 21:59 Info (Tpn Per Pharmacy) 1 each PRN DAILY PRN MC SEE COMMENTS; Start 01/05/21 at 13:30; Status UNV Dextrose 1,000 ml @ 50 mls/hr Q20H IV Last administered on 01/05/21at 18:18; Start 01/05/21 at 18:15; Stop 01/05/21 at 21:59; Status DC Vasopressin 20 unit/Dextrose 101 ml @ 12 mls/hr CONT PRN IV SEE I/O RECORD Last administered on 01/06/21at 07:36; Start 01/06/21 at 07:30 Active Scripts Active Nafcillin 2 Gm/ 100 Ml Inj (Nafcillin In Dextrose,Iso-Osm) 2 Gm/100 Ml Froz.piggy 2 Gm IV Q4HRS 30 Days Reported Acetaminophen 325 Mg Tablet 650 Mg PO QHS Aspirin 81 Mg Tab.chew 1 Tab PO DAILY Men's Multivitamin Tablet (Multivit-Min/Folic/Vit K/Lycop) 1 Each Tablet 1 Each PO DAILY Pravastatin Sodium 80 Mg Tablet 1 Tab PO DAILY Lasix (Furosemide) 40 Mg Tablet 1 Tab PO DAILY Colace (Docusate Sodium) 100 Mg Capsule 1 Cap PO PRN BID PRN Vitals/I & O Vital Sign - Last 24 Hours 01/05/21 01/05/21 01/05/21 01/05/21 10:00 11:00 11:33 12:00 Temp 98.4 98.4 Pulse 60 60 69 Resp 16 16 16 B/P (MAP) 113/50 126/46 119/45 Pulse Ox 96 95 96 96 O2 Delivery Ventilator Ventilator Ventilator Ventilator 01/05/21 01/05/21 01/05/21 01/05/21 12:00 13:00 14:00 14:35 Pulse 60 60 Resp 16 16 B/P (MAP) 115/53 106/41 Pulse Ox 95 91 96 O2 Delivery Mechanical Ventilator Ventilator Ventilator Ventilator 01/05/21 01/05/21 01/05/21 01/05/21 15:00 15:58 16:00 16:00 Temp 97.8 97.8 Pulse 67 66 Resp 16 16 B/P (MAP) 91/38 97/36 Pulse Ox 92 90 90 O2 Delivery Ventilator Ventilator Mechanical Ventilator Ventilator 01/05/21 01/05/21 01/05/21 01/05/21 17:00 17:45 18:00 19:00 Pulse 67 68 69 Resp 16 16 16 B/P (MAP) 108/41 100/41 105/45 Pulse Ox 91 93 93 93 O2 Delivery Ventilator Ventilator Ventilator Ventilator 01/05/21 01/05/21 01/05/21 01/05/21 20:00 20:00 20:24 21:00 Temp 98.9 98.9 Pulse 73 76 Resp 16 16 B/P (MAP) 109/45 85/43 Pulse Ox 94 93 93 O2 Delivery Ventilator Mechanical Ventilator Ventilator Ventilator 01/05/21 01/05/21 01/05/21 01/05/21 22:00 22:15 22:45 23:00 Pulse 67 67 66 72 Resp 16 16 16 16 B/P (MAP) 107/40 96/39 79/30 82/34 Pulse Ox 93 93 94 94 O2 Delivery Ventilator Ventilator Ventilator Ventilator 01/05/21 01/05/21 01/05/21 01/06/21 23:15 23:30 23:45 00:00 Temp 98.3 98.3 Pulse 71 72 71 Resp 16 16 16 B/P (MAP) 94/42 95/35 94/42 Pulse Ox 93 93 94 93 O2 Delivery Ventilator Ventilator Ventilator Ventilator 01/06/21 01/06/21 01/06/21 01/06/21 00:00 01:00 01:25 02:00 Pulse 75 66 Resp 16 16 B/P (MAP) 104/41 103/38 Pulse Ox 94 94 93 O2 Delivery Mechanical Ventilator Ventilator Ventilator Ventilator 01/06/21 01/06/21 01/06/21 01/06/21 03:00 03:02 04:00 04:00 Temp 98.9 98.9 Pulse 65 77 Resp 16 16 B/P (MAP) 105/38 96/36 Pulse Ox 93 93 92 O2 Delivery Ventilator Ventilator Ventilator Mechanical Ventilator 01/06/21 01/06/21 01/06/21 01/06/21 05:00 05:31 06:00 07:00 Pulse 80 64 62 Resp 16 16 16 B/P (MAP) 105/40 98/38 95/33 Pulse Ox 91 90 91 91 O2 Delivery Ventilator Ventilator Ventilator Ventilator 01/06/21 01/06/21 01/06/21 07:15 07:25 08:00 Temp 98.7 98.7 Pulse 59 77 Resp 16 16 B/P (MAP) 101/34 111/48 Pulse Ox 96 92 98 O2 Delivery Ventilator Ventilator Ventilator Intake and Output 01/05/21 01/05/21 01/06/21 15:00 23:00 07:00 Intake Total 319.3 ml 822 ml Output Total 0 ml 0 ml 0 ml Balance 0 ml 319.3 ml 822 ml Problem List Problems Medical Problems: (1) Hypokalemia Status: Acute (2) Person under investigation for COVID-19 Status: Acute (3) Pneumonia Status: Acute (4) Sepsis Status: Acute Plan of Care Note MOF- with worsening clinical status, prognosis guarded. hospice may be best option despite family wishes, CPM Justicifation of Admission Dx: Justifications for Admission: Justification of Admission Dx: N/A HALEY MCCORMICK MD Jan 06, 2021 09:37
--- NOTE | 2021-01-06 10:48 | PDOC ---
Renal-Progress Notes Subjective Notes Notes NO CHANGES History of Present Illness Hx of present illness NOT WAKING UP Vitals Vitals Vital Signs Date Time Temp Pulse Resp B/P (MAP) Pulse Ox O2 Delivery O2 Flow Rate FiO2 01/06/21 10:00 61 16 113/41 96 Ventilator 01/06/21 08:00 98.7 98.7 Weight Weight [ ] I.O. Intake and Output Intake and Output 01/06/21 07:00 Intake Total 1141.3 ml Output Total 0 ml Balance 1141.3 ml IV Total 971.3 ml Tube Feeding 170 ml Output Urine Total 0 ml Labs Labs Laboratory Tests Test 01/05/21 11:36 01/05/21 11:56 01/05/21 13:56 01/05/21 13:59 Glucose (Fingerstick) 24 mg/dL (70-99) 164 mg/dL (70-99) 101 mg/dL (70-99) 100 mg/dL (70-99) Test 01/05/21 17:48 01/05/21 18:08 01/06/21 00:21 01/06/21 05:16 Glucose (Fingerstick) 60 mg/dL (70-99) 111 mg/dL (70-99) 97 mg/dL (70-99) 94 mg/dL (70-99) Test 01/06/21 06:30 01/06/21 07:40 White Blood Count 21.8 x10^3/uL (4.0-11.0) Red Blood Count 2.60 x10^6/uL (4.30-5.70) Hemoglobin 7.7 g/dL (13.0-17.5) Hematocrit 24.4 % (39.0-53.0) Mean Corpuscular Volume 94 fL (79-100) Mean Corpuscular Hemoglobin 30 pg (25-35) Mean Corpuscular Hemoglobin Concent 32 g/dL (31-37) Red Cell Distribution Width 29.1 % (11.5-14.5) Platelet Count 104 x10^3/uL (140-400) Neutrophils (%) (Auto) 93 % (31-73) Lymphocytes (%) (Auto) 2 % (24-48) Monocytes (%) (Auto) 4 % (0-9) Eosinophils (%) (Auto) 0 % (0-3) Basophils (%) (Auto) 1 % (0-3) Neutrophils # (Auto) 20.2 x10^3/uL (1.8-7.7) Lymphocytes # (Auto) 0.5 x10^3/uL (1.0-4.8) Monocytes # (Auto) 0.9 x10^3/uL (0.0-1.1) Eosinophils # (Auto) 0.0 x10^3/uL (0.0-0.7) Basophils # (Auto) 0.1 x10^3/uL (0.0-0.2) Sodium Level 125 mmol/L (136-145) Potassium Level 4.7 mmol/L (3.5-5.1) Chloride Level 92 mmol/L (98-107) Carbon Dioxide Level 24 mmol/L (21-32) Anion Gap 9 (6-14) Blood Urea Nitrogen 44 mg/dL (8-26) Creatinine 4.0 mg/dL (0.7-1.3) Estimated GFR (Cockcroft-Gault) 14.4 BUN/Creatinine Ratio 11 (6-20) Glucose Level 132 mg/dL (70-99) Calcium Level 6.5 mg/dL (8.5-10.1) Phosphorus Level 3.5 mg/dL (2.6-4.7) Magnesium Level 2.0 mg/dL (1.8-2.4) Total Bilirubin 14.7 mg/dL (0.2-1.0) Aspartate Amino Transf (AST/SGOT) 118 U/L (15-37) Alanine Aminotransferase (ALT/SGPT) 21 U/L (16-63) Alkaline Phosphatase 193 U/L (46-116) Total Protein 6.0 g/dL (6.4-8.2) Albumin 1.8 g/dL (3.4-5.0) Albumin/Globulin Ratio 0.4 (1.0-1.7) O2 Saturation 85 % (92-99) Arterial Blood pH 7.29 (7.35-7.45) Arterial Blood pCO2 at Patient Temp 45 mmHg (35-46) Arterial Blood pO2 at Patient Temp 54 mmHg (65-108) Arterial Blood HCO3 21 mmol/L (21-28) Arterial Blood Base Excess -5 mmol/L (-3-3) FiO2 50 Micro Micro Microbiology 12/27/20 Blood Culture - Final, Complete NO GROWTH AFTER 5 DAYS 12/22/20 Gram Stain Evaluation - Final, Complete 12/22/20 Respiratory Culture - Final, Complete 12/07/20 Urine Culture - Final, Complete 12/04/20 Gram Stain - Final, Complete 12/04/20 Aerobic and Anaerobic Culture - Final, Complete Review of Systems Constitutional: yes: unresponsive Ears/Nose/Throat: Yes: no symptom reported Eyes: Yes: no symptom reported Pulmonary: Yes no symptom reported Gastrointestional: Yes: no symptom reported Genitourinary: Yes: no symptom reported Musculoskeletal: Yes: no symptom reported Skin: Yes no symptom reported Psychiatric/Neurological: Yes: no symptom reported Endocrine: Yes: no symptom reported Physical Exam General Appearance: mild distress Skin: warm Respiratory: ventilator (Mode:A/C), decreased breath sounds Heart: S1S2 Abdomen: soft, bowel sounds present Genitourinary: bladder flat Extremities: no edema, edema Neurology: other (sedated) Assessment Assessment IMP HYPOTENSION GUERO DUE TO ABOVE-ATN SEPSIS 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
--- NOTE | 2021-01-06 12:02 | RAD ---
EXAM: AP View of the chest DATE: 01/06/2021 9:00 AM INDICATION: Reason: Vent, resp failure COMPARISON: 01/03/2021 FINDINGS: Right IJ tunneled dual-lumen catheter and right IJ vascular catheter tips project over the distal SVC . ET tube tip terminates approximately 3 cm above the jairo. Cardiac generator pack obscures a porti on left chest and axilla with leads projecting over the right atrium and ventricle. Heart is mildly e nlarged. Aortic calcifications are seen. Diffuse bilateral parenchymal airspace opacities, progressed 01/03/2021. Small pleural effusions. No pneumothorax. IMPRESSION: 1. Diffuse bilateral parenchymal opacities progressed compared to 01/03/2021, suggesting progressive consolidative process. Electronically signed by: Eitan Maria MD (01/06/2021 12:00 PM) [id number]
--- NOTE | 2021-01-06 12:55 | PDOC ---
PROGRESS NOTES Date of Service DATE: 01/06/21 TIME: 12:48 Subjective Subjective Problems overnight: Intubated, sedated, unresponsive Objective Vital Signs Vital Signs Date Time Temp Pulse Resp B/P (MAP) Pulse Ox O2 Delivery O2 Flow Rate FiO2 01/06/21 12:34 94 Ventilator 01/06/21 12:00 99.9 64 16 100/45 99.9 01/02/21 09:06 40.0 Physical Exam Right knee dressing from yesterday clean dry intact. His arthroscopic portals to the joint are healed and no sign of joint effusion. He still has a small opening from a midline incision used to debride the prepatellar bursa. No drainage curre ntly or sign of redness erythema or infection Labs Laboratory Tests Test 01/04/21 16:30 01/05/21 06:04 01/05/21 07:03 01/05/21 07:20 Glucose (Fingerstick) 66 mg/dL (70-99) 106 mg/dL (70-99) Sodium Level 130 mmol/L (136-145) Potassium Level 4.3 mmol/L (3.5-5.1) Chloride Level 94 mmol/L (98-107) Carbon Dioxide Level 25 mmol/L (21-32) Anion Gap 11 (6-14) Blood Urea Nitrogen 34 mg/dL (8-26) Creatinine 3.1 mg/dL (0.7-1.3) Estimated GFR (Cockcroft-Gault) 19.3 Glucose Level 45 mg/dL (70-99) Calcium Level 7.0 mg/dL (8.5-10.1) Phosphorus Level 4.0 mg/dL (2.6-4.7) O2 Saturation 88 % (92-99) Arterial Blood pH 7.34 (7.35-7.45) Arterial Blood pCO2 at Patient Temp 38 mmHg (35-46) Arterial Blood pO2 at Patient Temp 55 mmHg (65-108) Arterial Blood HCO3 20 mmol/L (21-28) Arterial Blood Base Excess -5 mmol/L (-3-3) FiO2 40% ac /5 Test 01/05/21 08:00 01/05/21 08:02 01/05/21 11:36 01/05/21 11:56 White Blood Count 23.0 x10^3/uL (4.0-11.0) Red Blood Count 2.75 x10^6/uL (4.30-5.70) Hemoglobin 8.2 g/dL (13.0-17.5) Hematocrit 25.6 % (39.0-53.0) Mean Corpuscular Volume 93 fL (79-100) Mean Corpuscular Hemoglobin 30 pg (25-35) Mean Corpuscular Hemoglobin Concent 32 g/dL (31-37) Red Cell Distribution Width 29.6 % (11.5-14.5) Platelet Count 111 x10^3/uL (140-400) Neutrophils (%) (Auto) 93 % (31-73) Lymphocytes (%) (Auto) 2 % (24-48) Monocytes (%) (Auto) 5 % (0-9) Eosinophils (%) (Auto) 0 % (0-3) Basophils (%) (Auto) 0 % (0-3) Neutrophils # (Auto) 21.3 x10^3/uL (1.8-7.7) Lymphocytes # (Auto) 0.6 x10^3/uL (1.0-4.8) Monocytes # (Auto) 1.0 x10^3/uL (0.0-1.1) Eosinophils # (Auto) 0.1 x10^3/uL (0.0-0.7) Basophils # (Auto) 0.0 x10^3/uL (0.0-0.2) Segmented Neutrophils % 77 % (35-66) Band Neutrophils % 17 % (0-9) Lymphocytes % 3 % (24-48) Monocytes % 2 % (0-10) Metamyelocytes % 1 % (0-0) Toxic Granulation Present Platelet Estimate Decreased (ADEQUATE) Large Platelets Few Giant Platelets Occ Poikilocytosis Present Anisocytosis Marked Target Cells Present Acanthocytes Present Prothrombin Time 20.5 SEC (11.7-14.0) Prothromb Time International Ratio 1.8 (0.8-1.1) Glucose (Fingerstick) 79 mg/dL (70-99) 24 mg/dL (70-99) 164 mg/dL (70-99) Test 01/05/21 13:56 01/05/21 13:59 01/05/21 17:48 01/05/21 18:08 Glucose (Fingerstick) 101 mg/dL (70-99) 100 mg/dL (70-99) 60 mg/dL (70-99) 111 mg/dL (70-99) Test 01/06/21 00:21 01/06/21 05:16 01/06/21 06:30 01/06/21 07:40 Glucose (Fingerstick) 97 mg/dL (70-99) 94 mg/dL (70-99) White Blood Count 21.8 x10^3/uL (4.0-11.0) Red Blood Count 2.60 x10^6/uL (4.30-5.70) Hemoglobin 7.7 g/dL (13.0-17.5) Hematocrit 24.4 % (39.0-53.0) Mean Corpuscular Volume 94 fL (79-100) Mean Corpuscular Hemoglobin 30 pg (25-35) Mean Corpuscular Hemoglobin Concent 32 g/dL (31-37) Red Cell Distribution Width 29.1 % (11.5-14.5) Platelet Count 104 x10^3/uL (140-400) Neutrophils (%) (Auto) 93 % (31-73) Lymphocytes (%) (Auto) 2 % (24-48) Monocytes (%) (Auto) 4 % (0-9) Eosinophils (%) (Auto) 0 % (0-3) Basophils (%) (Auto) 1 % (0-3) Neutrophils # (Auto) 20.2 x10^3/uL (1.8-7.7) Lymphocytes # (Auto) 0.5 x10^3/uL (1.0-4.8) Monocytes # (Auto) 0.9 x10^3/uL (0.0-1.1) Eosinophils # (Auto) 0.0 x10^3/uL (0.0-0.7) Basophils # (Auto) 0.1 x10^3/uL (0.0-0.2) Sodium Level 125 mmol/L (136-145) Potassium Level 4.7 mmol/L (3.5-5.1) Chloride Level 92 mmol/L (98-107) Carbon Dioxide Level 24 mmol/L (21-32) Anion Gap 9 (6-14) Blood Urea Nitrogen 44 mg/dL (8-26) Creatinine 4.0 mg/dL (0.7-1.3) Estimated GFR (Cockcroft-Gault) 14.4 BUN/Creatinine Ratio 11 (6-20) Glucose Level 132 mg/dL (70-99) Calcium Level 6.5 mg/dL (8.5-10.1) Phosphorus Level 3.5 mg/dL (2.6-4.7) Magnesium Level 2.0 mg/dL (1.8-2.4) Total Bilirubin 14.7 mg/dL (0.2-1.0) Aspartate Amino Transf (AST/SGOT) 118 U/L (15-37) Alanine Aminotransferase (ALT/SGPT) 21 U/L (16-63) Alkaline Phosphatase 193 U/L (46-116) Total Protein 6.0 g/dL (6.4-8.2) Albumin 1.8 g/dL (3.4-5.0) Albumin/Globulin Ratio 0.4 (1.0-1.7) O2 Saturation 85 % (92-99) Arterial Blood pH 7.29 (7.35-7.45) Arterial Blood pCO2 at Patient Temp 45 mmHg (35-46) Arterial Blood pO2 at Patient Temp 54 mmHg (65-108) Arterial Blood HCO3 21 mmol/L (21-28) Arterial Blood Base Excess -5 mmol/L (-3-3) FiO2 50 Test 01/06/21 11:19 Glucose (Fingerstick) 110 mg/dL (70-99) Laboratory Tests Test 01/05/21 13:56 01/05/21 13:59 01/05/21 17:48 01/05/21 18:08 Glucose (Fingerstick) 101 mg/dL (70-99) 100 mg/dL (70-99) 60 mg/dL (70-99) 111 mg/dL (70-99) Test 01/06/21 00:21 01/06/21 05:16 01/06/21 06:30 01/06/21 07:40 Glucose (Fingerstick) 97 mg/dL (70-99) 94 mg/dL (70-99) White Blood Count 21.8 x10^3/uL (4.0-11.0) Red Blood Count 2.60 x10^6/uL (4.30-5.70) Hemoglobin 7.7 g/dL (13.0-17.5) Hematocrit 24.4 % (39.0-53.0) Mean Corpuscular Volume 94 fL (79-100) Mean Corpuscular Hemoglobin 30 pg (25-35) Mean Corpuscular Hemoglobin Concent 32 g/dL (31-37) Red Cell Distribution Width 29.1 % (11.5-14.5) Platelet Count 104 x10^3/uL (140-400) Neutrophils (%) (Auto) 93 % (31-73) Lymphocytes (%) (Auto) 2 % (24-48) Monocytes (%) (Auto) 4 % (0-9) Eosinophils (%) (Auto) 0 % (0-3) Basophils (%) (Auto) 1 % (0-3) Neutrophils # (Auto) 20.2 x10^3/uL (1.8-7.7) Lymphocytes # (Auto) 0.5 x10^3/uL (1.0-4.8) Monocytes # (Auto) 0.9 x10^3/uL (0.0-1.1) Eosinophils # (Auto) 0.0 x10^3/uL (0.0-0.7) Basophils # (Auto) 0.1 x10^3/uL (0.0-0.2) Sodium Level 125 mmol/L (136-145) Potassium Level 4.7 mmol/L (3.5-5.1) Chloride Level 92 mmol/L (98-107) Carbon Dioxide Level 24 mmol/L (21-32) Anion Gap 9 (6-14) Blood Urea Nitrogen 44 mg/dL (8-26) Creatinine 4.0 mg/dL (0.7-1.3) Estimated GFR (Cockcroft-Gault) 14.4 BUN/Creatinine Ratio 11 (6-20) Glucose Level 132 mg/dL (70-99) Calcium Level 6.5 mg/dL (8.5-10.1) Phosphorus Level 3.5 mg/dL (2.6-4.7) Magnesium Level 2.0 mg/dL (1.8-2.4) Total Bilirubin 14.7 mg/dL (0.2-1.0) Aspartate Amino Transf (AST/SGOT) 118 U/L (15-37) Alanine Aminotransferase (ALT/SGPT) 21 U/L (16-63) Alkaline Phosphatase 193 U/L (46-116) Total Protein 6.0 g/dL (6.4-8.2) Albumin 1.8 g/dL (3.4-5.0) Albumin/Globulin Ratio 0.4 (1.0-1.7) O2 Saturation 85 % (92-99) Arterial Blood pH 7.29 (7.35-7.45) Arterial Blood pCO2 at Patient Temp 45 mmHg (35-46) Arterial Blood pO2 at Patient Temp 54 mmHg (65-108) Arterial Blood HCO3 21 mmol/L (21-28) Arterial Blood Base Excess -5 mmol/L (-3-3) FiO2 50 Test 01/06/21 11:19 Glucose (Fingerstick) 110 mg/dL (70-99) Assessment Assessment PO from irrigation and debridement right knee joint and prepatellar bursa for septic arthritis/bursitis Plan Plan of Care Unfortunately he is very critically ill, nurse noted plans for potential dialysis Infectious disease continues to follow for antibiotic treatment. I do not anticipate any other intervention on the knee given the present circumstances, particularly given the lack of appearance of infection, the last material expressed from his prepatellar bursa was more fibrinous exudate and even on the initial irrigation debridement procedure of the prepatellar bursa itself, seem to be more inflammatory gouty reaction although there was certainly a indication of septic arthritis and bursitis on his initial presentation, then treated operatively. With my departure, Dr. De Dios could provide any ongoing care if it would become necessary Justicifation of Admission Dx: Justifications for Admission: Justification of Admission Dx: N/A ARMINDA BUTLER MD Jan 06, 2021 12:55
[2021-01-06] MEDS ORDERED: IV NORMAL SALINE 1000ML BAG 1,000 ML IV PRN (13:30)
[2021-01-06] MEDS ORDERED: DIALYSIS PATIENT. MC PRN (13:30)
[2021-01-06] MEDS ORDERED: ALBUMIN HUMAN 25% 200 ML IV ONE (14:30)
--- NOTE | 2021-01-06 15:25 | NUR ---
SS following up with discharge planning. SS reviewed pt chart and discussed with pt RN. Pt is currently on the vent at 60%. COVID19 negative. Pt on IV Daptomycin QOD. Pt on Levophed and Vasopressin. Gastric bleeding. Off sedation. Multi organ failure. TPN. Hemodialysis. Pt not a candidate for trach placement. Not stable. Pt's son continuing to request full aggressive care. SS will continue to follow for discharge planning.
--- NOTE | 2021-01-06 15:28 | NUR ---
Patient unstable, requiring rapid titration of Levophed d/t sustained MAP <65 during dialysis. Levophed was already running at 0.56 mcg/kg/min and vasopressin running at 0.04 units/min before dialysis started. Order received per Dr. Garrison by dialysis nurse to stop dialysis treatment. Patient stabilized at 1530 with BP 102/55; MAP 81. Levo currently infusing at 0.63 mcg/kg/min; the max rate during this time was 0.63 mcg/kg/min during charting block which ended at 1530. Pt in afib/ ventricular paced rhythm, HR 60, Spo2 98.
--- NOTE | 2021-01-06 16:03 | NUR ---
Pharmacy TPN Dosing Note S: NICKY SHETH is a 85 year old M Currently receiving Central Continuous TPN started 01/05/21 B:Pertinent PMH: NPO Height: 5 feet, 11 inches Weight: 97.987239 kg Current diet: LABS: Sodium: 125 Potassium: 4.7 Chloride: 92 Calcium: 6.5 Corrected Calcium: 8.26 Magnesium: 2.0 CO2: 24 SCr: 4.0 Glucose: 106 Albumin: 1.8 AST: 11.8 ALT: 193 TPN FORMULA: TPN TYPE: Central Continuous AMINO ACIDS: 75 gm DEXTROSE: 295 gm LIPIDS: 0 gm SODIUM CHLORIDE: 100 mEq SODIUM ACETATE: mEq SODIUM PHOSPHATE: 13.6 mmol POTASSIUM CHLORIDE: 50 mEq POTASSIUM ACETATE: mEq POTASSIUM PHOSPHATE: 5 mmol MAGNESIUM: 5 mEq CALCIUM: 12 mEq INSULIN: units MULTIPLE VITAMIN: 10 ml TRACE ELEMENTS: 1 ml(s) TPN PLAN: AA 75GM/DEX 295GM, LIVER FAILURE/HOLD LIPID INCREASE NACL TO 100 MEQ AND CHANGE KPHOS TO NAPHOS, UP FELIPE GLUCONATE TO 12 MEQ. R: Continue TPN AT 50ML/HR Will monitor electrolytes, glucose, and tolerance to TPN. MURRAY MARVIN [facility], 01/06/21 [id number]
[2021-01-06] MEDS: ACETAMINOPHEN 325 MG TABLET. PO SCH (20:53)
[2021-01-06] MEDS: EPOETIN ALFA-EPBX for ESRD 20,000 UNIT/ML VIAL. SQ SCH (20:53)
[2021-01-06] MEDS ORDERED: TOTAL PARENTERAL NUTRITION IV SCH (22:00)
[2021-01-06] MEDS ORDERED: DEXTROSE 70% IV SCH (22:00)
[2021-01-06] MEDS ORDERED: [UNRECOGNIZED DRUG - OTHER] IV SCH (22:00)
[2021-01-06] MEDS ORDERED: AMINO ACID IV SCH (22:00)
[2021-01-06] MEDS: DEXTROSE 50% 25 GM / 50ML DISP.SYRIN. IV PRN (23:55)
[2021-01-07] VITALS (24 sets, daily range): BP systolic 70–131; BP diastolic 33–68
[2021-01-07] MEDS: NOREPINEPHRINE VIAL 32 MG in IV D5W 250ML IV PRN ×2 (01:52→19:33)
--- NOTE | 2021-01-07 03:38 | PN ---
DATE: 01/06/2021 LOCATION: He is in room ICU, 102. SUBJECTIVE: This 85-year-old male remains hospitalized with multiorgan failure following MSSA sepsis from right knee source. He has ongoing mechanical ventilation, hemodialysis, evidence of liver failure, bloody NG output with a slight drop in his hemoglobin this morning, thrombocytopenia, which however is improved to some extent, has multiple ecchymoses like fibrotic skin. Discussed with nursing at the bedside this morning. OBJECTIVE: VITAL SIGNS: Stable. He is afebrile. Second pressor has been added. CHEST: Clear. HEART: Regular. ABDOMEN: Benign. Stable petechial changes. NEUROLOGICAL: Only change is his eyes are somewhat open this morning, but no meaningful response. LABORATORY DATA: Today shows sodium of 125, BUN 44, creatinine 4 and again on dialysis. Bilirubin remains elevated at 14.7, alkaline phosphatase is mildly elevated at 193. Sugars are good. White count is slightly decreased at 21,800, hemoglobin decreased to half a gram at 7.7, platelets 104,000 this morning. INR yesterday was 1.8. Blood gas this morning shows a pO2 of 54 on 50% FiO2. ASSESSMENT: Sepsis with resultant multiorgan failure as described above. PLAN: Family, particularly one son wants continued aggressive care. I met with another son and his , I believe they were ready to start pulling back as they realized through our discussion that any chance of meaningful recovery to the life that he had is essentially zero. LEYLA/JAIRO DR: Danielle TID: [id number]
[2021-01-07 05:40] LABS: CALCIUM 6.7 mg/dL (8.5-10.1); GFR 14.4; MAGNESIUM 2.3 mg/dL (1.8-2.4); PHOSPHORUS 4.5 mg/dL (2.6-4.7)
[2021-01-07 05:58] LABS: POTASSIUM 5.9 mmol/L (3.5-5.1)
--- NOTE | 2021-01-07 06:04 | PDOC ---
PULMONARY PROGRESS NOTES DATE: 01/07/21 TIME: 06:00 Subjective on vent peep 5 fio2 60% on Levophed. vaso sedation off since 12/30/20 has Gastric bleeding Vitals Vital Signs Date Time Temp Pulse Resp B/P (MAP) Pulse Ox O2 Delivery O2 Flow Rate FiO2 01/07/21 05:00 60 20 125/49 94 Ventilator 01/07/21 04:00 97.9 97.9 Comments on vent off sedation no response ros unable to obtain HEENT: Other (nc at pupils 2 mm not reactive to light orally intubated nose clear ) Lungs: Crackles Cardiovascular: S1, S2 Abdomen: Soft Extremities: Other (Edema) Skin: Warm Labs Laboratory Tests Test 01/05/21 06:04 01/05/21 07:03 01/05/21 07:20 01/05/21 08:00 Sodium Level 130 mmol/L (136-145) Potassium Level 4.3 mmol/L (3.5-5.1) Chloride Level 94 mmol/L (98-107) Carbon Dioxide Level 25 mmol/L (21-32) Anion Gap 11 (6-14) Blood Urea Nitrogen 34 mg/dL (8-26) Creatinine 3.1 mg/dL (0.7-1.3) Estimated GFR (Cockcroft-Gault) 19.3 Glucose Level 45 mg/dL (70-99) Calcium Level 7.0 mg/dL (8.5-10.1) Phosphorus Level 4.0 mg/dL (2.6-4.7) Glucose (Fingerstick) 106 mg/dL (70-99) O2 Saturation 88 % (92-99) Arterial Blood pH 7.34 (7.35-7.45) Arterial Blood pCO2 at Patient Temp 38 mmHg (35-46) Arterial Blood pO2 at Patient Temp 55 mmHg (65-108) Arterial Blood HCO3 20 mmol/L (21-28) Arterial Blood Base Excess -5 mmol/L (-3-3) FiO2 40% ac 16/500/5 White Blood Count 23.0 x10^3/uL (4.0-11.0) Red Blood Count 2.75 x10^6/uL (4.30-5.70) Hemoglobin 8.2 g/dL (13.0-17.5) Hematocrit 25.6 % (39.0-53.0) Mean Corpuscular Volume 93 fL (79-100) Mean Corpuscular Hemoglobin 30 pg (25-35) Mean Corpuscular Hemoglobin Concent 32 g/dL (31-37) Red Cell Distribution Width 29.6 % (11.5-14.5) Platelet Count 111 x10^3/uL (140-400) Neutrophils (%) (Auto) 93 % (31-73) Lymphocytes (%) (Auto) 2 % (24-48) Monocytes (%) (Auto) 5 % (0-9) Eosinophils (%) (Auto) 0 % (0-3) Basophils (%) (Auto) 0 % (0-3) Neutrophils # (Auto) 21.3 x10^3/uL (1.8-7.7) Lymphocytes # (Auto) 0.6 x10^3/uL (1.0-4.8) Monocytes # (Auto) 1.0 x10^3/uL (0.0-1.1) Eosinophils # (Auto) 0.1 x10^3/uL (0.0-0.7) Basophils # (Auto) 0.0 x10^3/uL (0.0-0.2) Segmented Neutrophils % 77 % (35-66) Band Neutrophils % 17 % (0-9) Lymphocytes % 3 % (24-48) Monocytes % 2 % (0-10) Metamyelocytes % 1 % (0-0) Toxic Granulation Present Platelet Estimate Decreased (ADEQUATE) Large Platelets Few Giant Platelets Occ Poikilocytosis Present Anisocytosis Marked Target Cells Present Acanthocytes Present Prothrombin Time 20.5 SEC (11.7-14.0) Prothromb Time International Ratio 1.8 (0.8-1.1) Test 01/05/21 08:02 01/05/21 11:36 01/05/21 11:56 01/05/21 13:56 Glucose (Fingerstick) 79 mg/dL (70-99) 24 mg/dL (70-99) 164 mg/dL (70-99) 101 mg/dL (70-99) Test 01/05/21 13:59 01/05/21 17:48 01/05/21 18:08 01/06/21 00:21 Glucose (Fingerstick) 100 mg/dL (70-99) 60 mg/dL (70-99) 111 mg/dL (70-99) 97 mg/dL (70-99) Test 01/06/21 05:16 01/06/21 06:30 01/06/21 07:40 01/06/21 11:19 Glucose (Fingerstick) 94 mg/dL (70-99) 110 mg/dL (70-99) White Blood Count 21.8 x10^3/uL (4.0-11.0) Red Blood Count 2.60 x10^6/uL (4.30-5.70) Hemoglobin 7.7 g/dL (13.0-17.5) Hematocrit 24.4 % (39.0-53.0) Mean Corpuscular Volume 94 fL (79-100) Mean Corpuscular Hemoglobin 30 pg (25-35) Mean Corpuscular Hemoglobin Concent 32 g/dL (31-37) Red Cell Distribution Width 29.1 % (11.5-14.5) Platelet Count 104 x10^3/uL (140-400) Neutrophils (%) (Auto) 93 % (31-73) Lymphocytes (%) (Auto) 2 % (24-48) Monocytes (%) (Auto) 4 % (0-9) Eosinophils (%) (Auto) 0 % (0-3) Basophils (%) (Auto) 1 % (0-3) Neutrophils # (Auto) 20.2 x10^3/uL (1.8-7.7) Lymphocytes # (Auto) 0.5 x10^3/uL (1.0-4.8) Monocytes # (Auto) 0.9 x10^3/uL (0.0-1.1) Eosinophils # (Auto) 0.0 x10^3/uL (0.0-0.7) Basophils # (Auto) 0.1 x10^3/uL (0.0-0.2) Sodium Level 125 mmol/L (136-145) Potassium Level 4.7 mmol/L (3.5-5.1) Chloride Level 92 mmol/L (98-107) Carbon Dioxide Level 24 mmol/L (21-32) Anion Gap 9 (6-14) Blood Urea Nitrogen 44 mg/dL (8-26) Creatinine 4.0 mg/dL (0.7-1.3) Estimated GFR (Cockcroft-Gault) 14.4 BUN/Creatinine Ratio 11 (6-20) Glucose Level 132 mg/dL (70-99) Calcium Level 6.5 mg/dL (8.5-10.1) Phosphorus Level 3.5 mg/dL (2.6-4.7) Magnesium Level 2.0 mg/dL (1.8-2.4) Total Bilirubin 14.7 mg/dL (0.2-1.0) Aspartate Amino Transf (AST/SGOT) 118 U/L (15-37) Alanine Aminotransferase (ALT/SGPT) 21 U/L (16-63) Alkaline Phosphatase 193 U/L (46-116) Total Protein 6.0 g/dL (6.4-8.2) Albumin 1.8 g/dL (3.4-5.0) Albumin/Globulin Ratio 0.4 (1.0-1.7) O2 Saturation 85 % (92-99) Arterial Blood pH 7.29 (7.35-7.45) Arterial Blood pCO2 at Patient Temp 45 mmHg (35-46) Arterial Blood pO2 at Patient Temp 54 mmHg (65-108) Arterial Blood HCO3 21 mmol/L (21-28) Arterial Blood Base Excess -5 mmol/L (-3-3) FiO2 50 Test 01/06/21 14:46 01/06/21 18:13 01/06/21 23:50 01/07/21 00:00 Glucose (Fingerstick) 121 mg/dL (70-99) 93 mg/dL (70-99) 12 mg/dL (70-99) 213 mg/dL (70-99) Test 01/07/21 05:10 Sodium Level 124 mmol/L (136-145) Potassium Level 5.9 mmol/L (3.5-5.1) Chloride Level 90 mmol/L (98-107) Carbon Dioxide Level 19 mmol/L (21-32) Anion Gap 15 (6-14) Blood Urea Nitrogen 46 mg/dL (8-26) Creatinine 4.0 mg/dL (0.7-1.3) Estimated GFR (Cockcroft-Gault) 14.4 Glucose Level 118 mg/dL (70-99) Calcium Level 6.7 mg/dL (8.5-10.1) Phosphorus Level 4.5 mg/dL (2.6-4.7) Magnesium Level 2.3 mg/dL (1.8-2.4) Laboratory Tests Test 01/06/21 06:30 01/06/21 07:40 01/06/21 11:19 01/06/21 14:46 White Blood Count 21.8 x10^3/uL (4.0-11.0) Red Blood Count 2.60 x10^6/uL (4.30-5.70) Hemoglobin 7.7 g/dL (13.0-17.5) Hematocrit 24.4 % (39.0-53.0) Mean Corpuscular Volume 94 fL (79-100) Mean Corpuscular Hemoglobin 30 pg (25-35) Mean Corpuscular Hemoglobin Concent 32 g/dL (31-37) Red Cell Distribution Width 29.1 % (11.5-14.5) Platelet Count 104 x10^3/uL (140-400) Neutrophils (%) (Auto) 93 % (31-73) Lymphocytes (%) (Auto) 2 % (24-48) Monocytes (%) (Auto) 4 % (0-9) Eosinophils (%) (Auto) 0 % (0-3) Basophils (%) (Auto) 1 % (0-3) Neutrophils # (Auto) 20.2 x10^3/uL (1.8-7.7) Lymphocytes # (Auto) 0.5 x10^3/uL (1.0-4.8) Monocytes # (Auto) 0.9 x10^3/uL (0.0-1.1) Eosinophils # (Auto) 0.0 x10^3/uL (0.0-0.7) Basophils # (Auto) 0.1 x10^3/uL (0.0-0.2) Sodium Level 125 mmol/L (136-145) Potassium Level 4.7 mmol/L (3.5-5.1) Chloride Level 92 mmol/L (98-107) Carbon Dioxide Level 24 mmol/L (21-32) Anion Gap 9 (6-14) Blood Urea Nitrogen 44 mg/dL (8-26) Creatinine 4.0 mg/dL (0.7-1.3) Estimated GFR (Cockcroft-Gault) 14.4 BUN/Creatinine Ratio 11 (6-20) Glucose Level 132 mg/dL (70-99) Calcium Level 6.5 mg/dL (8.5-10.1) Phosphorus Level 3.5 mg/dL (2.6-4.7) Magnesium Level 2.0 mg/dL (1.8-2.4) Total Bilirubin 14.7 mg/dL (0.2-1.0) Aspartate Amino Transf (AST/SGOT) 118 U/L (15-37) Alanine Aminotransferase (ALT/SGPT) 21 U/L (16-63) Alkaline Phosphatase 193 U/L (46-116) Total Protein 6.0 g/dL (6.4-8.2) Albumin 1.8 g/dL (3.4-5.0) Albumin/Globulin Ratio 0.4 (1.0-1.7) O2 Saturation 85 % (92-99) Arterial Blood pH 7.29 (7.35-7.45) Arterial Blood pCO2 at Patient Temp 45 mmHg (35-46) Arterial Blood pO2 at Patient Temp 54 mmHg (65-108) Arterial Blood HCO3 21 mmol/L (21-28) Arterial Blood Base Excess -5 mmol/L (-3-3) FiO2 50 Glucose (Fingerstick) 110 mg/dL (70-99) 121 mg/dL (70-99) Test 01/06/21 18:13 01/06/21 23:50 01/07/21 00:00 01/07/21 05:10 Glucose (Fingerstick) 93 mg/dL (70-99) 12 mg/dL (70-99) 213 mg/dL (70-99) Sodium Level 124 mmol/L (136-145) Potassium Level 5.9 mmol/L (3.5-5.1) Chloride Level 90 mmol/L (98-107) Carbon Dioxide Level 19 mmol/L (21-32) Anion Gap 15 (6-14) Blood Urea Nitrogen 46 mg/dL (8-26) Creatinine 4.0 mg/dL (0.7-1.3) Estimated GFR (Cockcroft-Gault) 14.4 Glucose Level 118 mg/dL (70-99) Calcium Level 6.7 mg/dL (8.5-10.1) Phosphorus Level 4.5 mg/dL (2.6-4.7) Magnesium Level 2.3 mg/dL (1.8-2.4) Medications Active Scripts Medications Dose Route/Sig Max Daily Dose Days Date Category Nafcillin 2 Gm/ 100 Ml Inj (Nafcillin In Dextrose,Iso-Osm) 2 Gm/100 Ml Froz.piggy 2 Gm IV Q4HRS 30 12/16/20 Rx Acetaminophen 325 Mg Tablet 650 Mg PO QHS 11/28/20 Reported Aspirin 81 Mg Tab.chew 1 Tab PO DAILY 11/01/20 Reported Men's Multivitamin Tablet (Multivit-Min/Folic/Vit K/Lycop) 1 Each Tablet 1 Each PO DAILY 07/19/20 Reported Pravastatin Sodium 80 Mg Tablet 1 Tab PO DAILY 03/02/19 Reported Lasix (Furosemide) 40 Mg Tablet 1 Tab PO DAILY 01/11/14 Reported Colace (Docusate Sodium) 100 Mg Capsule 1 Cap PO PRN BID PRN 01/11/14 Reported Comments Chest x-ray reviewed 01/06/2021. Diffuse bilateral parenchymal opacities progressed compared to 01/03/2021, suggesting progressive consolidative process. ett ok Impression . IMPRESSION: 1. Acute hypoxemic respiratory failure, multifactorial. 2. Abnormal x-ray compatible with acute respiratory distress syndrome, already treated for possible superimposed pneumonia. 3. Persistent methicillin-sensitive Staph aureus bacteremia, present upon admission. 4. Right [place] joint methicillin-susceptible Staphylococcus aureus septic arthritis. 5. Metabolic toxic encephalopathy. 6. Atrial fibrillation. 7. Hypertension. 8. Liver failure. 9. Severe protein malnutrition, present upon admission. 10. Acute renal failure. Requiring hemodialysis 11. Septic shock 12. Lower extremity digits ecchymosis, suspect secondary to Levophed 13. Likely anoxic encephalopathy. 14. Upper GI bleed, not on any anticoagulation Plan . Updated 01/07/21 cont vent support setting reviewed titration as tolerated. 16/500/60%/5 Not responding to any commands. Has been off sedation since 30 December Hemodialysis per nephro-- didnt tolerate 01/06 Continue ABX per ID TF on hold-- pt. not tolerating and gastric bleeding--off AC and monitor HGB, change protonix to gtt. Transfuse as needed. GI following, follow the recommendations . Per their note, not a candidate for invasive intervention. Continue vasopressors to keep MAP 65 on levo vaso discussed w rn Overall prognosis is very poor dr quintero D/W son--- explained the need for tracheostomy since he wants to con tinue with aggressive care. He agrees to proceed... Patient evaluated by Dr. Monteiro for tracheostomy. At present he is not stable for the procedure. dr ulrich discussed w another son may withdraw support soon Pt. remains a FULL code at this time prognosis poor discussed w rn critically ill cct 30 min no overlap Updated 01/06/21 cont vent support setting reviewed 02 titration as tolerated. 16/500/60%/5 Not responding to any commands. Has been off sedation since 30 December Hemodialysis per nephro-- Continue ABX per ID TF on hold-- pt. not tolerating and gastric bleeding--off AC and monitor HGB, PPI BID. Transfuse as needed. GI following, follow the recommendations . Per their note, not a candidate for invasive intervention. Continue vasopressors to keep MAP above 65 discussed w rn Overall prognosis is poor D/W son--- explained the need for tracheostomy since he wants to continue with aggressive care. He agrees to proceed... Patient evaluated by Dr. Monteiro for tracheostomy. At present he is not a optimal candidate for the procedure. Pt. remains a FULL code at this time Will consider evaluation for LTAC transfer Updated 01/05/21 cont vent support setting reviewed 02 titration as tolerated. 16/500/50%/5 Not responding to any commands. Has been off sedation since 30 December Hemodialysis per nephro-- Continue ABX per ID TF on hold-- pt. not tolerating and gastric bleeding--off AC and monitor HGB, PPI BID GI following, follow the recommendations regarding possible EGD Continue vasopressors to keep MAP above 65 discussed w rn Overall prognosis is poor D/W son--- explained the need for tracheostomy since he wants to continue with aggressive care. He agrees to proceed... Patient evaluated by Dr. Monteiro for tracheostomy. At present he is not a optimal candidate for the procedure Pt. remains a FULL code at this time Updated 01/04/21 cont vent support setting reviewed 02 titration as tolerated. 16/500/40%/5 Not responding to any commands. Has been off sedation since 30 December Hemodialysis per nephro--renal function worse today Continue ABX per ID TF on hold-- pt. not tolerating and gastric bleeding-- DC AC and monitor HGB, PPI BID Continue vasopressors to keep MAP above 65 prognosis poor discussed w rn Overall prognosis is poor D/W son--- explained the need for tracheostomy since he wants to continue with aggressive care. He agrees to proceed.will consult surgery. Pt. remains a FULL code at this time Updated 01/03 cont vent support setting reviewed titration as tolerated. FiO2 down to 40%. Not responding to any commands. Has been off sedation since 30 December monitor WBC hb Continue current support Nutritional support Hemodialysis per nephro prognosis poor discussed w rn Overall prognosis is poor Message left for the son. I would like to discuss advanced directives and if they still want to pursue with aggressive care, I would recommend tracheostomy and PEG tube Updated 01/02 cont vent support setting reviewed titration as tolerated. Wean FiO2 to 45% today on pepcid monitor WBC hb Continue current support Nutritional support Hemodialysis per nephro prognosis poor Repeat chest x-ray in a.m. discussed w rn Overall prognosis is poor ISMAEL CHAVEZ MD Jan 07, 2021 06:04
[2021-01-07] MEDS: PANTOPRAZOLE SODIUM IV DRIP 80 MG in IV NORMAL SALINE 100ML 100 ML IV SCH ×2 (06:14→16:17)
[2021-01-07 07:47] LABS: BASE EXCESS ABG -13 mmol/L (-3-3); HCO3 ABG 16 mmol/L (21-28); PCO2 ABG 48 mmHg (35-46); PO2 ABG 54 mmHg (65-108); SAT O2 ABG 82 % (92-99)
[2021-01-07 07:54] LABS: FIO2 ABG 60
[2021-01-07] MEDS: NYSTATIN TOPICAL POWDER 15GM BOTTLE. TP SCH ×2 (08:22→21:02)
[2021-01-07] MEDS: VASOPRESSIN - VASOSTRICT 20 UNIT in IV DEXTROSE 5% 100ML 100 ML IV PRN ×2 (08:24→16:18)
[2021-01-07 08:30] LABS: BASO % 0 % (0-3); EOS % 0 % (0-3); HEMATOCRIT 25.2 % (39.0-53.0); HEMOGLOBIN 7.7 g/dL (13.0-17.5); LYMPH # 0.6 x10^3/uL (1.0-4.8); LYMPH % 3 % (24-48); MEAN CORPUSCULAR HEMOGLOBIN 31 pg (25-35); MEAN CORPUSCULAR HGB CONC 31 g/dL (31-37); MEAN CORPUSCULAR VOLUME 101 fL (79-100); MONO # 0.5 x10^3/uL (0.0-1.1); MONO % 3 % (0-9); NEUT # 18.1 x10^3/uL (1.8-7.7); NEUT % 94 % (31-73); PLATELET COUNT 85 x10^3/uL (140-400); RED CELL DISTRIBUTION WIDTH 29.6 % (11.5-14.5); WHITE BLOOD COUNT 19.2 x10^3/uL (4.0-11.0)
[2021-01-07] MEDS: TPN PER PHARMACY MC PRN (11:11)
--- NOTE | 2021-01-07 11:11 | NUR ---
Pharmacy TPN Dosing Note S: NICKY SHETH is a 85 year old M Currently receiving Central Continuous TPN started 01/05/21 B:Pertinent PMH: NPO Height: 5 feet, 11 inches Weight: 99.6 kg Current diet: LABS: Sodium: 142 Potassium: 5.9 Chloride: 90 Calcium: 6.7 Corrected Calcium: 8.46 Magnesium: 2.3 CO2: 19 SCr: 4 Glucose: 118 Albumin: 1.8 AST: 11.8 ALT: 193 TPN FORMULA: TPN TYPE: Central Continuous AMINO ACIDS: 75 gm DEXTROSE: 295 gm SODIUM CHLORIDE: 120 mEq SODIUM PHOSPHATE: 6 mmol MAGNESIUM: 5 mEq CALCIUM: 20 mEq MULTIPLE VITAMIN: 10 ml TRACE ELEMENTS: 1 ml TPN PLAN: -Serum sodium trending down, increase NaCl. -Serum potassium high, remove potassium from TPN. -Corrected calcium low, give calcium gluconate 1g IV bolus, increase calcium to 20 mEq/day in TPN. -Reduce NaPhos to 6 mmol/day to account for Ca/Phos ratio. -CMP, mag, phos tomorrow. R: Continue TPN @ current rate and with above changes. Will monitor electrolytes, glucose, and tolerance to TPN. JOSH BAR, [facility], 01/07/21 1111
--- NOTE | 2021-01-07 11:37 | PDOC ---
DATE OF SERVICE: DOS: DATE: 01/07/21 TIME: 11:26 SUBJECTIVE ROS Follow-up for acute kidney injury on dialysis Patient currently on 2 pressors. Was on TPN which I have discontinued today. Unable to tolerate dialysis yesterday due to drop in blood pressures, 20 minutes into starting. Will reattempt dialysis today. Reportedly does not have any corneal or gag reflexes. Is minimally responsive despite being off of sedation for numerous days. Appears to have had documented hypoglycemia overnight OBJECTIVE Vital Signs Vital Signs Date Time Temp Pulse Resp B/P (MAP) Pulse Ox O2 Delivery O2 Flow Rate FiO2 01/07/21 11:06 59 20 112/54 91 Ventilator 01/07/21 07:21 98.3 98.3 I & 0 Intake and Output 01/07/21 07:00 Intake Total 2380.15 ml Output Total 350 ml Balance 2030.15 ml IV Total 2380.15 ml Output Urine Total 0 ml Gastric Drainage Total 350 ml PHYSICAL EXAM Physical Exam GEN: Not sedated, unresponsive on the vent, orally intubated EYES: Conjunctiva appears somewhat dry, sclerae anicteric EN: No EN Drainage, Mucous Membranes moist, orally intubated NECK: No JVD, or JVP, Supple, no palpable thyromegaly CVS: S1S2, possible murmur, No Gallop, No Rub,+ Edema RESP: Bilateral basal Rales, no obvious rhonchi, no Acc. Muscle Use GI: BS rare if any, NO Bruit, Non Tender, Non Distended : Unable to palpate CVA tenderness, or suprapubic Tenderness DIAGNOSIS/ASSESSMENT Assessment & Plan Acute kidney injury: We will attempt dialysis again today given multiple abnormalities in electrolytes. I have my doubts if he will be able to tolerated hemodynamically as happened yesterday. Hyponatremia: Stop TPN for now. Will attempt correction with dialysis if tolerated Minimal metabolic acidosis: Dialysis as ordered for today. If not able to tolerate, IV bicarbonate may need to be administered Hyperkalemia: Attempt correction with dialysis if not able to tolerate dialysis, IV bicarbonate will be ordered to attempt correction of the same Hypocalcemia: Most recent albumin was 1.8. IV albumin will be ordered HyoTN: With possible sepsis, remains on pressors Patient appears to be clinically brain given lack of reflexes. Respiratory failure with ARDS on the vent currently. Defer management to pulmonology and critical care Discussed with ICU nurse. Agree prognosis is very poor. Will continue supportive care as long as family wishes COMMENT/RELEVANT DATA Meds Current Medications Medications (Trade) Dose Ordered Sig/Gia Start Time Stop Time Status Last Admin Dose Admin Acetaminophen (Tylenol) 650 mg QHS 11/29/20 21:00 01/02/21 21:42 650 MG Acetaminophen/ Hydrocodone Bitart (Lortab 10/325) 1 tab PRN Q4HRS PRN 12/05/20 20:00 12/24/20 14:02 1 TAB Acetaminophen/ Hydrocodone Bitart (Lortab 5/325) 1 tab PRN Q4HRS PRN 11/28/20 22:45 12/05/20 19:50 DC 12/05/20 17:38 1 TAB Albumin Human 200 ml @ 200 mls/hr 1X ONCE 01/06/21 14:30 01/06/21 15:29 DC 01/06/21 14:59 200 MLS/HR Aspirin (Aspirin Chewable) 81 mg 1X ONCE 12/27/20 10:45 12/27/20 10:46 UNV Aspirin (Ecotrin) 81 mg [id number] 12/23/20 13:00 12/27/20 10:33 DC 12/24/20 08:40 81 MG Atorvastatin Calcium (Lipitor) 40 mg QHS 12/19/20 21:00 01/02/21 10:04 DC 01/01/21 20:57 40 MG Atropine Sulfate (ATROPINE 0.5mg SYRINGE) 0.5 mg PRN Q5MIN PRN 12/26/20 19:15 Azithromycin 250 ml @ 250 mls/hr DAILY ONCE 11/30/20 09:00 11/30/20 09:59 UNV Azithromycin 500 mg/Sodium Chloride 250 ml @ 250 mls/hr Q24H 11/29/20 15:00 11/29/20 13:50 DC Benzocaine (Hurricaine One) 1 spray STK-MED ONCE 12/05/20 10:06 12/05/20 10:07 DC Calcium Gluconate (Calcium Gluconate) 1,000 mg 1X ONCE 01/07/21 12:00 01/07/21 12:01 Carvedilol (Coreg) 3.125 mg BIDWMEALS 12/01/20 12:00 12/05/20 20:11 DC 12/03/20 16:39 3.125 MG Cefazolin Sodium (Ancef) 1 gm Q24H 12/26/20 16:00 12/27/20 10:37 DC 12/26/20 15:29 1 GM Cefazolin Sodium/ Dextrose 50 ml @ As Directed STK-MED ONCE 12/23/20 13:57 12/23/20 13:58 DC Cefepime HCl (Maxipime) 1 gm Q24H 12/22/20 11:00 12/26/20 11:56 DC 12/25/20 12:32 1 GM Ceftriaxone Sodium (Rocephin) 2 gm Q24H 11/29/20 14:00 12/01/20 09:19 DC 11/30/20 13:21 2 GM Daptomycin 500 mg/ Sodium Chloride 50 ml @ 100 mls/hr Q48H 12/13/20 10:00 12/26/20 11:55 DC 12/25/20 17:33 100 MLS/HR Daptomycin 510 mg/ Sodium Chloride 50 ml @ 100 mls/hr QODAY 12/27/20 12:00 01/06/21 09:18 100 MLS/HR Daptomycin 580 mg/ Sodium Chloride 50 ml @ 100 mls/hr Q24H 12/01/20 07:30 12/01/20 09:19 DC 12/01/20 08:52 100 MLS/HR Dexamethasone Sodium Phosphate (Decadron) 4 mg STK-MED ONCE 12/04/20 11:26 12/04/20 11:26 DC Dexmedetomidine HCl 400 mcg/ Sodium Chloride 100 ml @ 4.725 mls/ hr CONT PRN 12/26/20 19:15 Dextrose 1,000 ml @ 50 mls/hr Q20H 01/05/21 18:15 01/05/21 21:59 DC 01/05/21 18:18 50 MLS/HR Dextrose (Dextrose 50%-Water Syringe) 25 gm STK-MED ONCE 12/26/20 11:00 12/27/20 08:58 DC Docusate Sodium (Colace) 100 mg PRN BID PRN 12/17/20 17:45 12/30/20 07:24 100 MG Epoetin Krishna-epbx (RETACRIT for ESRD PTS) 10,000 unit MoWeFr@2100 12/14/20 21:00 01/06/21 20:53 10,000 UNIT Etomidate (Amidate) 20 mg 1X ONCE 12/26/20 21:15 12/26/20 21:16 DC 12/26/20 19:38 20 MG Famotidine (Pepcid Vial) 20 mg BID 12/26/20 21:00 12/27/20 10:19 DC 12/27/20 09:00 20 MG Fentanyl Citrate 55 ml @ 0 mls/hr CONT PRN 12/27/20 12:45 Cancel Fentanyl Citrate (Fentanyl 2ml Vial) 100 mcg 1X ONCE 12/23/20 14:00 12/23/20 14:06 DC 12/23/20 14:00 50 MCG Furosemide (Lasix) 40 mg 1X ONCE 12/25/20 23:00 12/25/20 23:05 DC 12/25/20 23:16 40 MG Glycerin/ Hypromellose/ Polyethylene (Artificial Tears) 1 drop PRN Q1HR PRN 12/26/20 19:15 01/06/21 07:59 1 DROP Hydromorphone HCl (Dilaudid) 0.5 mg PRN Q10MIN PRN 12/04/20 09:30 12/05/20 09:29 DC Influenza Virus Vaccine Quadrival (Flulaval Quad [id number] Syringe) 0.5 ml ONCE ONCE 11/29/20 09:00 11/29/20 09:01 DC 11/29/20 10:06 0.5 ML Info (PHARMACY MONITORING -- do not chart) 1 each PRN DAILY PRN 01/06/21 13:30 Info (Tpn Per Pharmacy) 1 each PRN DAILY PRN 01/05/21 13:30 UNV Lactobacillus Rhamnosus (Culturelle) 1 cap BID 11/29/20 21:00 12/27/20 21:38 DC 12/24/20 22:38 1 CAP Lidocaine HCl (Buffered Lidocaine 1%) 4 ml 1X ONCE 12/12/20 13:15 12/12/20 13:18 DC 12/12/20 13:11 4 ML Lidocaine HCl (Lidocaine 1% 20ml Vial) 10 ml 1X ONCE 12/01/20 16:00 12/01/20 16:01 DC Lidocaine HCl (Lidocaine Pf 2% Vial) 5 ml STK-MED ONCE 12/04/20 10:43 12/04/20 10:43 DC Lidocaine HCl (Viscous Lidocaine) 15 ml STK-MED ONCE 12/05/20 10:06 12/05/20 10:06 DC Lidocaine HCl (Xylocaine 2% Topical 30gm Tube) 30 hiro STK-MED ONCE 12/05/20 10:06 12/05/20 10:06 DC Lidocaine/ Epinephrine (LIDOCAINE 1%-EPI 1:100,000 Multi-Dose) 20 ml 1X ONCE 12/23/20 14:15 12/23/20 14:16 DC 12/23/20 14:15 8 ML Linezolid (Zyvox) 600 mg BID 12/27/20 12:00 12/28/20 08:25 DC 12/27/20 21:48 600 MG Magnesium Sulfate 50 ml @ 25 mls/hr 1X ONCE 12/31/20 23:45 01/01/21 01:44 DC 12/31/20 23:39 25 MLS/HR Meropenem 500 mg/ Sodium Chloride 50 ml @ 100 mls/hr DAILY 12/27/20 11:00 12/31/20 16:05 DC 12/31/20 08:05 100 MLS/HR Metoprolol Succinate (Toprol Xl) 25 mg DAILY 12/09/20 09:00 12/25/20 10:43 DC 12/24/20 08:41 25 MG Midazolam HCl (Versed) 5 mg PRN 1X PRN 12/26/20 19:15 12/27/20 19:14 DC Morphine Sulfate (Morphine Sulfate) 1 mg PRN Q10MIN PRN 12/04/20 09:30 12/05/20 09:29 DC Nafcillin Sodium 2 gm/Dextrose 100 ml @ 200 mls/hr Q4HRS 12/01/20 10:00 12/21/20 08:19 DC 12/21/20 04:11 200 MLS/HR Norepinephrine Bitartrate 32 mg/ Dextrose 250 ml @ 4.603 mls/ hr CONT PRN 12/29/20 11:00 01/07/21 01:52 23.016 MLS/HR Norepinephrine Bitartrate 8 mg/ Dextrose 258 ml @ 18.286 mls/ hr CONT PRN 12/26/20 19:15 12/29/20 10:50 DC 12/29/20 05:57 49.372 MLS/HR Nystatin (Nystop) 1 hiro BID 01/02/21 09:15 01/07/21 08:22 1 HIRO Ondansetron HCl (Zofran) 4 mg STK-MED ONCE 12/04/20 11:26 12/04/20 11:26 DC Pantoprazole Sodium (PROTONIX VIAL for IV PUSH) 40 mg BID 01/04/21 09:00 01/07/21 06:04 DC 01/06/21 20:53 40 MG Pantoprazole Sodium (Protonix) 40 mg DAILYAC 12/20/20 09:15 12/26/20 10:17 DC 12/24/20 06:15 40 MG Pantoprazole Sodium 80 mg/ Sodium Chloride 100 ml @ 10 mls/hr Q10H 01/07/21 06:15 01/07/21 06:14 10 MLS/HR Phenylephrine HCl (PHENYLEPHRINE in 0.9% NACL PF) 1 mg STK-MED ONCE 12/04/20 10:43 12/04/20 10:43 DC Phytonadione (Vitamin K Ampule) 10 mg 1X ONCE 12/29/20 11:00 12/29/20 11:05 DC 12/29/20 11:40 10 MG Polyethylene Glycol (miraLAX PACKET) 17 gm PRN DAILY PRN 12/03/20 19:00 12/30/20 07:24 17 GM Potassium Chloride/Water 100 ml @ 50 mls/hr 1X ONCE 11/28/20 14:45 11/28/20 16:44 DC 11/28/20 16:20 50 MLS/HR Potassium Phosphate 15 mmol/ Sodium Chloride 105 ml @ 52.5 mls/hr 1X ONCE 12/28/20 14:00 12/28/20 15:59 DC 12/28/20 13:32 52.5 MLS/HR Potassium Chloride (Klor-Con) 20 meq 1X ONCE 12/10/20 19:00 12/10/20 19:01 DC 12/10/20 18:52 20 MEQ Prochlorperazine Edisylate (Compazine) 5 mg PACU PRN PRN 12/04/20 09:30 12/05/20 09:29 DC Propofol (Diprivan) 200 mg STK-MED ONCE 12/05/20 09:29 12/05/20 09:30 DC Ringer's Solution 1,000 ml @ 100 mls/hr Q10H 12/26/20 19:30 12/29/20 10:28 DC 12/28/20 04:37 100 MLS/HR Sevoflurane (Ultane) 60 ml STK-MED ONCE 12/04/20 11:14 12/04/20 11:14 DC Sodium Chloride (Normal Saline Flush) 10 ml 1X PRN PRN 12/23/20 10:15 12/24/20 10:14 DC Sodium Chloride (Saline Mist Nasal) 1 hiro PRN Q1HR PRN 12/02/20 20:45 12/20/20 23:52 1 HIRO Sodium Chloride 70 meq/Potassium Chloride 50 meq/ Potassium Phosphate 5 mmol/ Magnesium Sulfate 5 meq/Calcium Gluconate 10 meq/ Multivitamins 10 ml/Zinc/Copper/ Manganese/ Selenium 1 ml/ Total Parenteral Nutrition/Amino Acids/Dextrose 1,200 ml @ 50 mls/hr TPN CONT 01/05/21 22:00 01/06/21 21:59 DC 01/05/21 22:17 50 MLS/HR Sodium Chloride 100 meq/Potassium Chloride 50 meq/ Sodium Phosphate 13.6 mmol/ Magnesium Sulfate 5 meq/Calcium Gluconate 12 meq/ Multivitamins 10 ml/Zinc/Copper/ Manganese/ Selenium 1 ml/ Total Parenteral Nutrition/Amino Acids/Dextrose 1,200 ml @ 50 mls/hr TPN CONT 01/06/21 22:00 01/07/21 21:59 01/06/21 22:02 50 MLS/HR Sodium Chloride 120 meq/Sodium Phosphate 6 mmol/ Magnesium Sulfate 5 meq/Calcium Gluconate 20 meq/ Multivitamins 10 ml/Zinc/Copper/ Manganese/ Selenium 1 ml/ Total Parenteral Nutrition/Amino Acids/Dextrose 1,200 ml @ 50 mls/hr TPN CONT 01/07/21 22:00 01/08/21 21:59 Sodium Phosphate 40 mmol/Sodium Chloride 263.3333 ml @ 62.5 mls/hr 1X ONCE 12/29/20 10:00 12/29/20 14:12 DC 12/29/20 09:51 62.5 MLS/HR Succinylcholine Chloride (Anectine) 200 mg 1X ONCE 12/26/20 21:15 12/26/20 21:16 DC 12/26/20 19:38 200 MG Vasopressin 20 unit/Dextrose 101 ml @ 12 mls/hr CONT PRN 01/06/21 07:30 01/07/21 08:24 12 MLS/HR Vecuronium [place] (Norcuron Bolus) 6 mg PRN 1X PRN 12/26/20 19:15 12/27/20 19:14 DC Warfarin Sodium (Coumadin) 3.75 mg DAILY 11/30/20 09:00 UNV Zolpidem Tartrate (Ambien) 5 mg PRN QHS PRN 12/05/20 20:00 12/23/20 22:11 5 MG Lab Laboratory Tests Test 01/06/21 14:46 01/06/21 18:13 01/06/21 23:50 01/07/21 00:00 Glucose (Fingerstick) 121 mg/dL (70-99) 93 mg/dL (70-99) 12 mg/dL (70-99) 213 mg/dL (70-99) Test 01/07/21 05:10 01/07/21 07:25 White Blood Count 19.2 x10^3/uL (4.0-11.0) Red Blood Count 2.50 x10^6/uL (4.30-5.70) Hemoglobin 7.7 g/dL (13.0-17.5) Hematocrit 25.2 % (39.0-53.0) Mean Corpuscular Volume 101 fL (79-100) Mean Corpuscular Hemoglobin 31 pg (25-35) Mean Corpuscular Hemoglobin Concent 31 g/dL (31-37) Red Cell Distribution Width 29.6 % (11.5-14.5) Platelet Count 85 x10^3/uL (140-400) Neutrophils (%) (Auto) 94 % (31-73) Lymphocytes (%) (Auto) 3 % (24-48) Monocytes (%) (Auto) 3 % (0-9) Eosinophils (%) (Auto) 0 % (0-3) Basophils (%) (Auto) 0 % (0-3) Neutrophils # (Auto) 18.1 x10^3/uL (1.8-7.7) Lymphocytes # (Auto) 0.6 x10^3/uL (1.0-4.8) Monocytes # (Auto) 0.5 x10^3/uL (0.0-1.1) Eosinophils # (Auto) 0.0 x10^3/uL (0.0-0.7) Basophils # (Auto) 0.0 x10^3/uL (0.0-0.2) Sodium Level 124 mmol/L (136-145) Potassium Level 5.9 mmol/L (3.5-5.1) Chloride Level 90 mmol/L (98-107) Carbon Dioxide Level 19 mmol/L (21-32) Anion Gap 15 (6-14) Blood Urea Nitrogen 46 mg/dL (8-26) Creatinine 4.0 mg/dL (0.7-1.3) Estimated GFR (Cockcroft-Gault) 14.4 Glucose Level 118 mg/dL (70-99) Calcium Level 6.7 mg/dL (8.5-10.1) Phosphorus Level 4.5 mg/dL (2.6-4.7) Magnesium Level 2.3 mg/dL (1.8-2.4) O2 Saturation 82 % (92-99) Arterial Blood pH 7.14 (7.35-7.45) Arterial Blood pCO2 at Patient Temp 48 mmHg (35-46) Arterial Blood pO2 at Patient Temp 54 mmHg (65-108) Arterial Blood HCO3 16 mmol/L (21-28) Arterial Blood Base Excess -13 mmol/L (-3-3) FiO2 60 Results All relevant outside records, renal labs, imaging studies, telemetry/EKG's were reviewed. Other FINDINGS: Right IJ tunneled dual-lumen catheter and right IJ vascular catheter tips project over the distal SVC. ET tube tip terminates approximately 3 cm above the jairo. Cardiac generator pack obscures a portion left chest and axilla with leads projecting over the right atrium and ventricle. Heart is mildly enlarged. Aortic calcifications are seen. Diffuse bilateral parenchymal airspace opacities, progressed 01/03/2021. Small pleural effusions. No pneumothorax. IMPRESSION: 1. Diffuse bilateral parenchymal opacities progressed compared to 01/03/2021, suggesting progressive consolidative process. Justicifation of Admission Dx: Justifications for Admission: Justification of Admission Dx: N/A BC BALLESTEROS MD Jan 07, 2021 11:37
[2021-01-07] MEDS ORDERED: CALCIUM GLUCONATE 1,000 MG/10 ML VIAL. IV ONE (12:00)
--- NOTE | 2021-01-07 12:03 | PDOC ---
Infectious Disease Note Subjective: Subjective Patient remains critically ill Intubated. Unresponsive off sedation Bloody OG output continues On Levophed and vasopressin d/w RN Vital Signs: Vital Signs Vital Signs Date Time Temp Pulse Resp B/P (MAP) Pulse Ox O2 Delivery O2 Flow Rate FiO2 01/07/21 11:06 59 20 112/54 91 Ventilator 01/07/21 07:21 98.3 98.3 Physical Exam: PHYSICAL EXAM GENERAL: Intubated,Unresponsive HEENT: ETT OGT in place, icterus present, pale face NECK: Right IJ placed , chest wall has right HDC looks clean LUNGS: Decreased HEART: S1, S2, systolic murmur present. Pacemaker site looks okay ABDOMEN: Soft, nontender, nondistended. EXTREMITIES: Right knee prepatellar swelling, mild erythema , no drainage, dorsalis pedis dopplerable DERMATOLOGIC: No generalized rash, multiple purpleish lesions both feet including toes , progressing. Likely embolic, getting worse Mottled skin NEUROLOGIC: Unresponsive Lines as above Medications: Inpatient Meds: Medications reviewed. Labs: Lab Laboratory Tests Test 01/06/21 14:46 01/06/21 18:13 01/06/21 23:50 01/07/21 00:00 Glucose (Fingerstick) 121 mg/dL (70-99) 93 mg/dL (70-99) 12 mg/dL (70-99) 213 mg/dL (70-99) Test 01/07/21 05:10 01/07/21 07:25 White Blood Count 19.2 x10^3/uL (4.0-11.0) Red Blood Count 2.50 x10^6/uL (4.30-5.70) Hemoglobin 7.7 g/dL (13.0-17.5) Hematocrit 25.2 % (39.0-53.0) Mean Corpuscular Volume 101 fL (79-100) Mean Corpuscular Hemoglobin 31 pg (25-35) Mean Corpuscular Hemoglobin Concent 31 g/dL (31-37) Red Cell Distribution Width 29.6 % (11.5-14.5) Platelet Count 85 x10^3/uL (140-400) Neutrophils (%) (Auto) 94 % (31-73) Lymphocytes (%) (Auto) 3 % (24-48) Monocytes (%) (Auto) 3 % (0-9) Eosinophils (%) (Auto) 0 % (0-3) Basophils (%) (Auto) 0 % (0-3) Neutrophils # (Auto) 18.1 x10^3/uL (1.8-7.7) Lymphocytes # (Auto) 0.6 x10^3/uL (1.0-4.8) Monocytes # (Auto) 0.5 x10^3/uL (0.0-1.1) Eosinophils # (Auto) 0.0 x10^3/uL (0.0-0.7) Basophils # (Auto) 0.0 x10^3/uL (0.0-0.2) Sodium Level 124 mmol/L (136-145) Potassium Level 5.9 mmol/L (3.5-5.1) Chloride Level 90 mmol/L (98-107) Carbon Dioxide Level 19 mmol/L (21-32) Anion Gap 15 (6-14) Blood Urea Nitrogen 46 mg/dL (8-26) Creatinine 4.0 mg/dL (0.7-1.3) Estimated GFR (Cockcroft-Gault) 14.4 Glucose Level 118 mg/dL (70-99) Calcium Level 6.7 mg/dL (8.5-10.1) Phosphorus Level 4.5 mg/dL (2.6-4.7) Magnesium Level 2.3 mg/dL (1.8-2.4) O2 Saturation 82 % (92-99) Arterial Blood pH 7.14 (7.35-7.45) Arterial Blood pCO2 at Patient Temp 48 mmHg (35-46) Arterial Blood pO2 at Patient Temp 54 mmHg (65-108) Arterial Blood HCO3 16 mmol/L (21-28) Arterial Blood Base Excess -13 mmol/L (-3-3) FiO2 60 Micro Chest x-ray IMPRESSION: 1. Increase in diffuse mixed interstitial and alveolar infiltrate and small pleural effusions. 2. Stable cardiomegaly and cardiac pacemaker. 3. Right internal jugular catheter with the tip overlying expected position of the superior cavoatrial junction. Objective: Assessment: Patient with prolonged hospitalization and complicated medical course now with multiorgan failure Persistent methicillin sensitive staph aureus bacteremia 4 of 4 bottles present on admission 11/28/2020, November 30 and December 02 History of PPM.H/O recent battery exchange. 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 anoxic encephalopathy Anemia status post PRBC 12/27/2020 History of fall present on admission. GUERO on HD urine eosinophil negative, hyponatremia Abnormal LFTs likely shock liver with worsening hyperbilirubinemia; neurology consulted History of atrial fibrillation. CHF status post PPM Hypertension. Coagulopathy on admission Nausea and vomiting couple of days ago which had resolved Plan: Plan of Care Leucocytosis improving likely reactive from bloody output from OGT ,Cont Daptomycin repeat bc negative so far, was on nafcillin, cefazolin, cefepime, meropenem. Cefepime and meropenem discontinued due to thrombocytopenia and abnormal LFTs Zyvox discontinued due to thrombocytopenia Patient remains afebrile Monitor labs and cultures, worsening LFTs Hematology and GI has evaluated patient Bood culture remain negative, UA and urine culture not done as patient is anuric Continue local wound care as directed Critically ill Overall long-term prognosis is very poor Consider comfort measures 1 son wants patient to be full code Patient's other son and are agreeable to transition to comfort measures Patient will likely not survive this hospitalization Discussed with nursing staff ELIZABETH BALLESTEROS MD Jan 07, 2021 12:03
[2021-01-07] MEDS ORDERED: ALBUMIN HUMAN 25% 100 ML IV ONE ×2 (12:30)
[2021-01-07] MEDS ORDERED: SODIUM BICARB ADULT 8.4% 50 MEQ/50 ML DISP.SYRIN. IV ONE ×2 (12:30→13:00)
--- NOTE | 2021-01-07 12:43 | PDOC ---
PROGRESS NOTES Date of Service DATE: 01/07/21 TIME: 12:40 Subjective Subjective Patient seen and examined Objective Objective Vital Signs Date Time Temp Pulse Resp B/P (MAP) Pulse Ox O2 Delivery O2 Flow Rate FiO2 01/07/21 12:19 Mechanical Ventilator 01/07/21 12:12 64 20 89/50 01/07/21 12:09 97.3 97.3 01/07/21 12:04 91 01/02/21 09:06 40.0 Intake and Output 01/07/21 07:00 Intake Total 2380.15 ml Output Total 350 ml Balance 2030.15 ml IV Total 2380.15 ml Output Urine Total 0 ml Gastric Drainage Total 350 ml Physical Exam Abdomen: Soft Heart: Other (Irregularly irregular) General: Other (Intubated) Lungs: Other (Decreased breath sounds) Assessment Assessment Problems Medical Problems: (1) Hypokalemia Status: Acute (2) Person under investigation for COVID-19 Status: Acute (3) Pneumonia Status: Acute (4) Sepsis Status: Acute Weakness, mechanical fall with right knee effusion: s/p I & D. Followed by ID and Ortho. Sepsis, MSSA bacteremia: no intracardiac vegetation per SOO. SSS, s/p PPM. generator change (QReca!) 11/01/2020. normal function CAD: clinically stable Permanent AFIB: rate controlled with intermittent v-pacing. Coagulopathy: he has been off ASA and Coumadin. Chronic diastolic CHF; echo with normal EF and WM GUERO; on hemodialysis as per renal. HTN: Presently hypotensive needing pressor support HLP: on statin Anemia with GI bleed. Following lab. Acute respiratory failure: intubated/vent. As per the pulmonary service. Comment Review of Relevant I have reviewed the following items mel (where applicable) has been applied. Labs Laboratory Tests Test 01/05/21 13:56 01/05/21 13:59 01/05/21 17:48 01/05/21 18:08 Glucose (Fingerstick) 101 mg/dL (70-99) 100 mg/dL (70-99) 60 mg/dL (70-99) 111 mg/dL (70-99) Test 01/06/21 00:21 01/06/21 05:16 01/06/21 06:30 01/06/21 07:40 Glucose (Fingerstick) 97 mg/dL (70-99) 94 mg/dL (70-99) White Blood Count 21.8 x10^3/uL (4.0-11.0) Red Blood Count 2.60 x10^6/uL (4.30-5.70) Hemoglobin 7.7 g/dL (13.0-17.5) Hematocrit 24.4 % (39.0-53.0) Mean Corpuscular Volume 94 fL (79-100) Mean Corpuscular Hemoglobin 30 pg (25-35) Mean Corpuscular Hemoglobin Concent 32 g/dL (31-37) Red Cell Distribution Width 29.1 % (11.5-14.5) Platelet Count 104 x10^3/uL (140-400) Neutrophils (%) (Auto) 93 % (31-73) Lymphocytes (%) (Auto) 2 % (24-48) Monocytes (%) (Auto) 4 % (0-9) Eosinophils (%) (Auto) 0 % (0-3) Basophils (%) (Auto) 1 % (0-3) Neutrophils # (Auto) 20.2 x10^3/uL (1.8-7.7) Lymphocytes # (Auto) 0.5 x10^3/uL (1.0-4.8) Monocytes # (Auto) 0.9 x10^3/uL (0.0-1.1) Eosinophils # (Auto) 0.0 x10^3/uL (0.0-0.7) Basophils # (Auto) 0.1 x10^3/uL (0.0-0.2) Sodium Level 125 mmol/L (136-145) Potassium Level 4.7 mmol/L (3.5-5.1) Chloride Level 92 mmol/L (98-107) Carbon Dioxide Level 24 mmol/L (21-32) Anion Gap 9 (6-14) Blood Urea Nitrogen 44 mg/dL (8-26) Creatinine 4.0 mg/dL (0.7-1.3) Estimated GFR (Cockcroft-Gault) 14.4 BUN/Creatinine Ratio 11 (6-20) Glucose Level 132 mg/dL (70-99) Calcium Level 6.5 mg/dL (8.5-10.1) Phosphorus Level 3.5 mg/dL (2.6-4.7) Magnesium Level 2.0 mg/dL (1.8-2.4) Total Bilirubin 14.7 mg/dL (0.2-1.0) Aspartate Amino Transf (AST/SGOT) 118 U/L (15-37) Alanine Aminotransferase (ALT/SGPT) 21 U/L (16-63) Alkaline Phosphatase 193 U/L (46-116) Total Protein 6.0 g/dL (6.4-8.2) Albumin 1.8 g/dL (3.4-5.0) Albumin/Globulin Ratio 0.4 (1.0-1.7) O2 Saturation 85 % (92-99) Arterial Blood pH 7.29 (7.35-7.45) Arterial Blood pCO2 at Patient Temp 45 mmHg (35-46) Arterial Blood pO2 at Patient Temp 54 mmHg (65-108) Arterial Blood HCO3 21 mmol/L (21-28) Arterial Blood Base Excess -5 mmol/L (-3-3) FiO2 50 Test 01/06/21 11:19 01/06/21 14:46 01/06/21 18:13 01/06/21 23:50 Glucose (Fingerstick) 110 mg/dL (70-99) 121 mg/dL (70-99) 93 mg/dL (70-99) 12 mg/dL (70-99) Test 01/07/21 00:00 01/07/21 05:10 01/07/21 07:25 Glucose (Fingerstick) 213 mg/dL (70-99) White Blood Count 19.2 x10^3/uL (4.0-11.0) Red Blood Count 2.50 x10^6/uL (4.30-5.70) Hemoglobin 7.7 g/dL (13.0-17.5) Hematocrit 25.2 % (39.0-53.0) Mean Corpuscular Volume 101 fL (79-100) Mean Corpuscular Hemoglobin 31 pg (25-35) Mean Corpuscular Hemoglobin Concent 31 g/dL (31-37) Red Cell Distribution Width 29.6 % (11.5-14.5) Platelet Count 85 x10^3/uL (140-400) Neutrophils (%) (Auto) 94 % (31-73) Lymphocytes (%) (Auto) 3 % (24-48) Monocytes (%) (Auto) 3 % (0-9) Eosinophils (%) (Auto) 0 % (0-3) Basophils (%) (Auto) 0 % (0-3) Neutrophils # (Auto) 18.1 x10^3/uL (1.8-7.7) Lymphocytes # (Auto) 0.6 x10^3/uL (1.0-4.8) Monocytes # (Auto) 0.5 x10^3/uL (0.0-1.1) Eosinophils # (Auto) 0.0 x10^3/uL (0.0-0.7) Basophils # (Auto) 0.0 x10^3/uL (0.0-0.2) Sodium Level 124 mmol/L (136-145) Potassium Level 5.9 mmol/L (3.5-5.1) Chloride Level 90 mmol/L (98-107) Carbon Dioxide Level 19 mmol/L (21-32) Anion Gap 15 (6-14) Blood Urea Nitrogen 46 mg/dL (8-26) Creatinine 4.0 mg/dL (0.7-1.3) Estimated GFR (Cockcroft-Gault) 14.4 Glucose Level 118 mg/dL (70-99) Calcium Level 6.7 mg/dL (8.5-10.1) Phosphorus Level 4.5 mg/dL (2.6-4.7) Magnesium Level 2.3 mg/dL (1.8-2.4) O2 Saturation 82 % (92-99) Arterial Blood pH 7.14 (7.35-7.45) Arterial Blood pCO2 at Patient Temp 48 mmHg (35-46) Arterial Blood pO2 at Patient Temp 54 mmHg (65-108) Arterial Blood HCO3 16 mmol/L (21-28) Arterial Blood Base Excess -13 mmol/L (-3-3) FiO2 60 Laboratory Tests Test 01/06/21 14:46 01/06/21 18:13 01/06/21 23:50 01/07/21 00:00 Glucose (Fingerstick) 121 mg/dL (70-99) 93 mg/dL (70-99) 12 mg/dL (70-99) 213 mg/dL (70-99) Test 01/07/21 05:10 01/07/21 07:25 White Blood Count 19.2 x10^3/uL (4.0-11.0) Red Blood Count 2.50 x10^6/uL (4.30-5.70) Hemoglobin 7.7 g/dL (13.0-17.5) Hematocrit 25.2 % (39.0-53.0) Mean Corpuscular Volume 101 fL (79-100) Mean Corpuscular Hemoglobin 31 pg (25-35) Mean Corpuscular Hemoglobin Concent 31 g/dL (31-37) Red Cell Distribution Width 29.6 % (11.5-14.5) Platelet Count 85 x10^3/uL (140-400) Neutrophils (%) (Auto) 94 % (31-73) Lymphocytes (%) (Auto) 3 % (24-48) Monocytes (%) (Auto) 3 % (0-9) Eosinophils (%) (Auto) 0 % (0-3) Basophils (%) (Auto) 0 % (0-3) Neutrophils # (Auto) 18.1 x10^3/uL (1.8-7.7) Lymphocytes # (Auto) 0.6 x10^3/uL (1.0-4.8) Monocytes # (Auto) 0.5 x10^3/uL (0.0-1.1) Eosinophils # (Auto) 0.0 x10^3/uL (0.0-0.7) Basophils # (Auto) 0.0 x10^3/uL (0.0-0.2) Sodium Level 124 mmol/L (136-145) Potassium Level 5.9 mmol/L (3.5-5.1) Chloride Level 90 mmol/L (98-107) Carbon Dioxide Level 19 mmol/L (21-32) Anion Gap 15 (6-14) Blood Urea Nitrogen 46 mg/dL (8-26) Creatinine 4.0 mg/dL (0.7-1.3) Estimated GFR (Cockcroft-Gault) 14.4 Glucose Level 118 mg/dL (70-99) Calcium Level 6.7 mg/dL (8.5-10.1) Phosphorus Level 4.5 mg/dL (2.6-4.7) Magnesium Level 2.3 mg/dL (1.8-2.4) O2 Saturation 82 % (92-99) Arterial Blood pH 7.14 (7.35-7.45) Arterial Blood pCO2 at Patient Temp 48 mmHg (35-46) Arterial Blood pO2 at Patient Temp 54 mmHg (65-108) Arterial Blood HCO3 16 mmol/L (21-28) Arterial Blood Base Excess -13 mmol/L (-3-3) FiO2 60 Microbiology 12/27/20 Blood Culture - Final, Complete NO GROWTH AFTER 5 DAYS 12/22/20 Gram Stain Evaluation - Final, Complete 12/22/20 Respiratory Culture - Final, Complete 12/07/20 Urine Culture - Final, Complete 12/04/20 Gram Stain - Final, Complete 12/04/20 Aerobic and Anaerobic Culture - Final, Complete Medications Current Medications Ceftriaxone Sodium (Rocephin) 1 gm 1X ONCE IVP Last administered on 11/28/20at 13:30; Start 11/28/20 at 13:30; Stop 11/28/20 at 13:31; Status DC Azithromycin 500 mg/Sodium Chloride 250 ml @ 250 mls/hr 1X ONCE IV ; Start 11/28/20 at 13:30; Stop 11/28/20 at 14:29; Status UNV Azithromycin 250 ml @ 250 mls/hr 1X ONCE IV Last administered on 11/28/20at 15:11; Start 11/28/20 at 13:30; Stop 11/28/20 at 14:29; Status DC Acetaminophen (Tylenol) 1,000 mg 1X ONCE PO Last administered on 11/28/20at 15:10; Start 11/28/20 at 14:45; Stop 11/28/20 at 14:46; Status DC Potassium Chloride/Water 100 ml @ 50 mls/hr 1X ONCE IV Last administered on 11/28/20at 16:20; Start 11/28/20 at 14:45; Stop 11/28/20 at 16:44; Status DC Potassium Chloride (Klor-Con) 40 meq 1X ONCE PO Last administered on 11/28/20at 16:21; Start 11/28/20 at 14:45; Stop 11/28/20 at 14:46; Status DC Sodium Chloride 1,000 ml @ 1,000 mls/hr 1X ONCE IV Last administered on 11/28/20at 17:41; Start 11/28/20 at 17:45; Stop 11/28/20 at 18:44; Status DC Acetaminophen (Tylenol) 650 mg PRN Q6HRS PRN PO MILD PAIN / TEMP > 100.3'F Last administered on 11/28/20at 20:36; Start 11/28/20 at 20:30 Influenza Virus Vaccine Quadrival (Flulaval Quad Syringe) 0.5 ml ONCE ONCE VAX IM Last administered on 11/29/20at 10:06; Start 11/29/20 at 09:00; Stop 11/29/20 at 09:01; Status DC Acetaminophen/ Hydrocodone Bitart (Lortab 5/325) 1 tab PRN Q4HRS PRN PO PAIN mod/severe Last administered on 12/05/20at 17:38; Start 11/28/20 at 22:45; Stop 12/05/20 at 19:50; Status DC Ceftriaxone Sodium (Rocephin) 1 gm Q24H IVP ; Start 11/29/20 at 13:00; Stop 11/29/20 at 13:11; Status DC Azithromycin 250 ml @ 250 mls/hr DAILY ONCE IV ; Start 11/30/20 at 09:00; Stop 11/30/20 at 09:59; Status UNV Azithromycin 500 mg/Sodium Chloride 250 ml @ 250 mls/hr Q24H IV ; Start 11/29/20 at 15:00; Stop 11/29/20 at 13:50; Status DC Acetaminophen (Tylenol) 650 mg QHS PO Last administered on 01/02/21at 21:42; Start 11/29/20 at 21:00 Aspirin (Aspirin Chewable) 81 mg DAILY PO Last administered on 12/19/20at 12:40; Start 11/30/20 at 09:00; Stop 12/19/20 at 14:26; Status DC Docusate Sodium (Colace) 100 mg PRN BID PRN PO HARD STOOLS Last administered on 12/01/20at 12:10; Start 11/29/20 at 09:45; Stop 12/17/20 at 17:41; Status DC Warfarin Sodium (Coumadin) 3.75 mg DAILY PO ; Start 11/30/20 at 09:00; Status UNV Atorvastatin Calcium (Lipitor) 20 mg QHS PO Last administered on 12/18/20at 20:29; Start 11/29/20 at 21:00; Stop 12/19/20 at 14:26; Status DC Daptomycin 500 mg/ Sodium Chloride 50 ml @ 100 mls/hr Q24H IV Last administered on 11/30/20at 13:19; Start 11/29/20 at 13:00; Stop 12/01/20 at 07:32; Status DC Ceftriaxone Sodium (Rocephin) 2 gm Q24H IVP Last administered on 11/30/20at 13:21; Start 11/29/20 at 14:00; Stop 12/01/20 at 09:19; Status DC Lactobacillus Rhamnosus (Culturelle) 1 cap BID PO Last administered on 12/24/20at 22:38; Start 11/29/20 at 21:00; Stop 12/27/20 at 21:38; Status DC Daptomycin 580 mg/ Sodium Chloride 50 ml @ 100 mls/hr Q24H IV Last administered on 12/01/20at 08:52; Start 12/01/20 at 07:30; Stop 12/01/20 at 09:19; Status DC Nafcillin Sodium 2 gm/Dextrose 100 ml @ 200 mls/hr Q4HRS IV Last administered on 12/21/20at 04:11; Start 12/01/20 at 10:00; Stop 12/21/20 at 08:19; Status DC Carvedilol (Coreg) 6.25 mg DAILY PO ; Start 12/01/20 at 12:00; Stop 12/01/20 at 12:00; Status DC Furosemide (Lasix) 40 mg DAILY PO Last administered on 12/07/20at 08:28; Start 12/01/20 at 12:00; Stop 12/07/20 at 14:46; Status DC Potassium Chloride (Klor-Con) 20 meq [id number] PO Last administered on 12/07/20at 08:28; Start 12/02/20 at 08:00; Stop 12/07/20 at 14:46; Status DC Potassium Chloride (Klor-Con) 20 meq 1X ONCE PO Last administered on 12/01/20at 12:12; Start 12/01/20 at 11:15; Stop 12/01/20 at 11:27; Status DC Carvedilol (Coreg) 3.125 mg BIDWMEALS PO Last administered on 12/03/20at 16:39; Start 12/01/20 at 12:00; Stop 12/05/20 at 20:11; Status DC Lidocaine HCl (Lidocaine 1% 20ml Vial) 10 ml 1X ONCE INJ ; Start 12/01/20 at 16:00; Stop 12/01/20 at 16:01; Status DC Ringer's Solution 1,000 ml @ 50 mls/hr Q20H IV Last administered on 12/05/20at 12:10; Start 12/05/20 at 07:00; Stop 12/05/20 at 18:59; Status DC Phytonadione (Vitamin K Ampule) 10 mg 1X ONCE SQ Last administered on 12/02/20at 11:09; Start 12/02/20 at 10:45; Stop 12/02/20 at 10:46; Status DC Sodium Chloride (Saline Mist Nasal) 1 hiro PRN Q1HR PRN NS NASAL CONGESTION Last administered on 12/20/20at 23:52; Start 12/02/20 at 20:45 Phytonadione (Vitamin K Ampule) 10 mg 1X ONCE SQ Last administered on 12/03/20at 11:17; Start 12/03/20 at 11:00; Stop 12/03/20 at 11:01; Status DC Docusate Sodium (Colace) 100 mg BID PO Last administered on 12/20/20at 08:52; Start 12/03/20 at 21:00; Stop 12/21/20 at 11:19; Status DC Polyethylene Glycol (miraLAX PACKET) 17 gm PRN DAILY PRN PO CONSTIPATION Last administered on 12/30/20at 07:24; Start 12/03/20 at 19:00 Fentanyl Citrate (Fentanyl 2ml Vial) 25 mcg PRN Q5MIN PRN IVP MILD PAIN 1-3; Start 12/04/20 at 09:30; Stop 12/05/20 at 09:29; Status DC Fentanyl Citrate (Fentanyl 2ml Vial) 50 mcg PRN Q5MIN PRN IVP MODERATE PAIN 4- 6; Start 12/04/20 at 09:30; Stop 12/05/20 at 09:29; Status DC Morphine Sulfate (Morphine Sulfate) 1 mg PRN Q10MIN PRN IVP SEVERE PAIN 7-10; Start 12/04/20 at 09:30; Stop 12/05/20 at 09:29; Status DC Ringer's Solution 1,000 ml @ 30 mls/hr Q24H IV ; Start 12/04/20 at 09:30; Stop 12/04/20 at 21:29; Status DC Hydromorphone HCl (Dilaudid) 0.5 mg PRN Q10MIN PRN IVP SEVERE PAIN 7-10, 2nd CHOICE; Start 12/04/20 at 09:30; Stop 12/05/20 at 09:29; Status DC Prochlorperazine Edisylate (Compazine) 5 mg PACU PRN PRN IVP NAUSEA, MRX1; Start 12/04/20 at 09:30; Stop 12/05/20 at 09:29; Status DC Propofol (Diprivan) 200 mg STK-MED ONCE IV ; Start 12/04/20 at 10:43; Stop 12/04/20 at 10:43; Status DC Lidocaine HCl (Lidocaine Pf 2% Vial) 5 ml STK-MED ONCE .ROUTE ; Start 12/04/20 at 10:43; Stop 12/04/20 at 10:43; Status DC Phenylephrine HCl (PHENYLEPHRINE in 0.9% NACL PF) 1 mg STK-MED ONCE IV ; Start 12/04/20 at 10:43; Stop 12/04/20 at 10:43; Status DC Sevoflurane (Ultane) 60 ml STK-MED ONCE IH ; Start 12/04/20 at 11:14; Stop 12/04/20 at 11:14; Status DC Dexamethasone Sodium Phosphate (Decadron) 4 mg STK-MED ONCE .ROUTE ; Start 12/04/20 at 11:26; Stop 12/04/20 at 11:26; Status DC Ondansetron HCl (Zofran) 4 mg STK-MED ONCE .ROUTE ; Start 12/04/20 at 11:26; Stop 12/04/20 at 11:26; Status DC Fentanyl Citrate (Fentanyl 2ml Vial) 100 mcg STK-MED ONCE .ROUTE ; Start 12/04/20 at 11:26; Stop 12/04/20 at 11:26; Status DC Daptomycin 500 mg/ Sodium Chloride 50 ml @ 100 mls/hr Q24H IV Last administered on 12/11/20at 10:46; Start 12/05/20 at 10:00; Stop 12/11/20 at 17:00; Status DC Propofol (Diprivan) 200 mg STK-MED ONCE IV ; Start 12/05/20 at 09:29; Stop 12/05/20 at 09:30; Status DC Lidocaine HCl (Viscous Lidocaine) 15 ml STK-MED ONCE .ROUTE ; Start 12/05/20 at 10:06; Stop 12/05/20 at 10:06; Status DC Lidocaine HCl (Xylocaine 2% Topical 30gm Tube) 30 hiro STK-MED ONCE TP ; Start 12/05/20 at 10:06; Stop 12/05/20 at 10:06; Status DC Benzocaine (Hurricaine One) 1 spray STK-MED ONCE .ROUTE ; Start 12/05/20 at 10:06; Stop 12/05/20 at 10:07; Status DC Acetaminophen/ Hydrocodone Bitart (Lortab 10325) 1 tab PRN Q4HRS PRN PO MODERATE TO SEVERE PAIN Last administered on 12/24/20at 14:02; Start 12/05/20 at 20:00 Zolpidem Tartrate (Ambien) 5 mg PRN QHS PRN PO INSOMNIA Last administered on 12/23/20at 22:11; Start 12/05/20 at 20:00 Sodium Chloride 1,000 ml @ 1,000 mls/hr 1X ONCE IV Last administered on 12/06/20at 09:32; Start 12/06/20 at 09:15; Stop 12/06/20 at 10:14; Status DC Sodium Chloride 1,000 ml @ 100 mls/hr 1X ONCE IV Last administered on 12/06/20at 15:30; Start 12/06/20 at 13:15; Stop 12/06/20 at 23:14; Status DC Sodium Chloride 1,000 ml @ 100 mls/hr 1X ONCE IV Last administered on 12/07/20at 13:24; Start 12/07/20 at 11:45; Stop 12/08/20 at 10:55; Status DC Metoprolol Succinate (Toprol Xl) 25 mg DAILY PO Last administered on 12/24/20at 08:41; Start 12/09/20 at 09:00; Stop 12/25/20 at 10:43; Status DC Potassium Chloride (Klor-Con) 20 meq 1X ONCE PO Last administered on 12/10/20at 18:52; Start 12/10/20 at 19:00; Stop 12/10/20 at 19:01; Status DC Daptomycin 500 mg/ Sodium Chloride 50 ml @ 100 mls/hr Q48H IV Last administered on 12/25/20at 17:33; Start 12/13/20 at 10:00; Stop 12/26/20 at 11:55; Status DC Lidocaine HCl (Buffered Lidocaine 1%) 3 ml STK-MED ONCE .ROUTE ; Start 12/12/20 at 10:27; Stop 12/12/20 at 10:27; Status DC Sodium Chloride 1,000 ml @ 1,000 mls/hr Q1H PRN IV hypotension; Start 12/12/20 at 12:00; Stop 12/12/20 at 17:59; Status DC Albumin Human 200 ml @ 200 mls/hr 1X PRN PRN IV Hypotension; Start 12/12/20 at 12:00; Stop 12/12/20 at 17:59; Status DC Sodium Chloride (Normal Saline Flush) 10 ml 1X PRN PRN IV AP catheter pack; Start 12/12/20 at 12:00; Stop 12/13/20 at 11:59; Status DC Sodium Chloride (Normal Saline Flush) 10 ml 1X PRN PRN IV MOUSE BREEDER catheter pack; Start 12/12/20 at 12:00; Stop 12/13/20 at 11:59; Status DC Info (PHARMACY MONITORING -- do not chart) 1 each PRN DAILY PRN MC SEE COMMENTS; Start 12/12/20 at 12:00; Status UNV Info (PHARMACY MONITORING -- do not chart) 1 each PRN DAILY PRN MC SEE COMMENTS; Start 12/12/20 at 12:00; Status Cancel Lidocaine HCl (Buffered Lidocaine 1%) 4 ml 1X ONCE INJ Last administered on 12/12/20at 13:11; Start 12/12/20 at 13:15; Stop 12/12/20 at 13:18; Status DC Sodium Chloride 1,000 ml @ 1,000 mls/hr Q1H PRN IV hypotension; Start 12/13/20 at 09:30; Stop 12/13/20 at 15:29; Status DC Sodium Chloride 1,000 ml @ 400 mls/hr Q2H30M PRN IV PATENCY; Start 12/13/20 at 09:30; Stop 12/13/20 at 21:29; Status DC Info (PHARMACY MONITORING -- do not chart) 1 each PRN DAILY PRN MC SEE COMMENTS; Start 12/13/20 at 09:30; Status UNV Info (PHARMACY MONITORING -- do not chart) 1 each PRN DAILY PRN MC SEE COMMENTS; Start 12/13/20 at 09:30; Status UNV Epoetin Krishna-epbx (RETACRIT for ESRD PTS) 10,000 unit MoWeFr@2100 SQ Last administered on 01/06/21at 20:53; Start 12/14/20 at 21:00 Sodium Chloride 1,000 ml @ 1,000 mls/hr Q1H PRN IV hypotension; Start 12/15/20 at 07:00; Stop 12/15/20 at 12:59; Status DC Sodium Chloride 1,000 ml @ 400 mls/hr Q2H30M PRN IV PATENCY; Start 12/15/20 at 07:00; Stop 12/15/20 at 18:59; Status DC Info (PHARMACY MONITORING -- do not chart) 1 each PRN DAILY PRN MC SEE COMMENTS; Start 12/15/20 at 07:00; Stop 12/15/20 at 07:00; Status DC Info (PHARMACY MONITORING -- do not chart) 1 each PRN DAILY PRN MC SEE COMMENTS; Start 12/15/20 at 07:00; Stop 12/15/20 at 07:00; Status DC Sodium Chloride 1,000 ml @ 1,000 mls/hr Q1H PRN IV hypotension; Start 12/17/20 at 10:30; Stop 12/17/20 at 16:29; Status DC Albumin Human 200 ml @ 200 mls/hr 1X PRN PRN IV Hypotension Last administered on 12/17/20at 11:15; Start 12/17/20 at 10:30; Stop 12/17/20 at 16:29; Status DC Sodium Chloride 1,000 ml @ 400 mls/hr Q2H30M PRN IV PATENCY; Start 12/17/20 at 10:30; Stop 12/17/20 at 22:29; Status DC Info (PHARMACY MONITORING -- do not chart) 1 each PRN DAILY PRN MC SEE COMMENTS; Start 12/17/20 at 11:15; Stop 12/19/20 at 13:24; Status DC Info (PHARMACY MONITORING -- do not chart) 1 each PRN DAILY PRN MC SEE COMMENTS; Start 12/17/20 at 11:15; Status UNV Docusate Sodium (Colace) 100 mg PRN BID PRN PO HARD STOOLS Last administered on 12/30/20at 07:24; Start 12/17/20 at 17:45 Sodium Chloride 1,000 ml @ 30 mls/hr Q24H IV Last administered on 12/21/20at 20:34; Start 12/18/20 at 18:45; Stop 12/27/20 at 13:08; Status DC Sodium Chloride 1,000 ml @ 1,000 mls/hr Q1H PRN IV hypotension; Start 12/19/20 at 08:30; Stop 12/19/20 at 14:29; Status DC Albumin Human 100 ml @ 100 mls/hr 1X PRN PRN IV Hypotension; Start 12/19/20 at 08:30; Stop 12/19/20 at 14:29; Status DC Sodium Chloride 1,000 ml @ 400 mls/hr Q2H30M PRN IV PATENCY; Start 12/19/20 at 08:30; Stop 12/19/20 at 20:29; Status DC Info (PHARMACY MONITORING -- do not chart) 1 each PRN DAILY PRN MC SEE COMMENTS; Start 12/19/20 at 08:30; Stop 12/19/20 at 13:24; Status DC Info (PHARMACY MONITORING -- do not chart) 1 each PRN DAILY PRN MC SEE COMMENTS; Start 12/19/20 at 08:30; Stop 12/21/20 at 07:55; Status DC Atorvastatin Calcium (Lipitor) 40 mg QHS PO Last administered on 01/01/21at 20:57; Start 12/19/20 at 21:00; Stop 01/02/21 at 10:04; Status DC Pantoprazole Sodium (Protonix) 40 mg DAILYAC PO Last administered on 12/24/20at 06:15; Start 12/20/20 at 09:15; Stop 12/26/20 at 10:17; Status DC Sodium Chloride 1,000 ml @ 1,000 mls/hr Q1H PRN IV hypotension; Start 12/21/20 at 08:00; Stop 12/21/20 at 13:59; Status DC Sodium Chloride 1,000 ml @ 400 mls/hr Q2H30M PRN IV PATENCY; Start 12/21/20 at 08:00; Stop 12/21/20 at 19:59; Status DC Info (PHARMACY MONITORING -- do not chart) 1 each PRN DAILY PRN MC SEE COMMENTS; Start 12/21/20 at 08:00; Stop 12/21/20 at 07:54; Status DC Info (PHARMACY MONITORING -- do not chart) 1 each PRN DAILY PRN MC SEE COMMENTS; Start 12/21/20 at 08:00; Status Cancel Cefepime HCl (Maxipime) 1 gm Q24H IVP Last administered on 12/25/20at 12:32; Start 12/22/20 at 11:00; Stop 12/26/20 at 11:56; Status DC Furosemide (Lasix) 40 mg 1X ONCE IVP Last administered on 12/22/20at 11:17; Start 12/22/20 at 11:15; Stop 12/22/20 at 11:16; Status DC Sodium Chloride 1,000 ml @ 1,000 mls/hr Q1H PRN IV hypotension; Start 12/23/20 at 10:15; Stop 12/23/20 at 16:14; Status DC Albumin Human 200 ml @ 200 mls/hr 1X PRN PRN IV Hypotension; Start 12/23/20 at 10:15; Stop 12/23/20 at 16:14; Status DC Sodium Chloride (Normal Saline Flush) 10 ml 1X PRN PRN IV AP catheter pack; Start 12/23/20 at 10:15; Stop 12/24/20 at 10:14; Status DC Sodium Chloride (Normal Saline Flush) 10 ml 1X PRN PRN IV MOUSE BREEDER catheter pack; Start 12/23/20 at 10:15; Stop 12/24/20 at 10:14; Status DC Sodium Chloride 1,000 ml @ 400 mls/hr Q2H30M PRN IV PATENCY; Start 12/23/20 at 10:15; Stop 12/23/20 at 22:14; Status DC Info (PHARMACY MONITORING -- do not chart) 1 each PRN DAILY PRN MC SEE COMMENTS; Start 12/23/20 at 10:15; Status UNV Info (PHARMACY MONITORING -- do not chart) 1 each PRN DAILY PRN MC SEE COMMENTS; Start 12/23/20 at 10:15; Status Cancel Aspirin (Ecotrin) 81 mg DAILYWBKFT PO Last administered on 12/24/20at 08:40; Start 12/23/20 at 13:00; Stop 12/27/20 at 10:33; Status DC Cefazolin Sodium/ Dextrose 50 ml @ 100 mls/hr 1X PREOP PRN IV PRIOR TO PROCEDURE Last administered on 12/23/20at 14:46; Start 12/23/20 at 14:00; Stop 12/24/20 at 13:59; Status DC Midazolam HCl (Versed) 2 mg 1X ONCE IV Last administered on 12/23/20at 14:00; Start 12/23/20 at 14:00; Stop 12/23/20 at 14:06; Status DC Fentanyl Citrate (Fentanyl 2ml Vial) 100 mcg 1X ONCE IV Last administered on 12/23/20at 14:00; Start 12/23/20 at 14:00; Stop 12/23/20 at 14:06; Status DC Cefazolin Sodium/ Dextrose 50 ml @ As Directed STK-MED ONCE IV ; Start 12/23/20 at 13:57; Stop 12/23/20 at 13:58; Status DC Lidocaine/ Epinephrine (LIDOCAINE 1%-EPI 1:100,000 Multi-Dose) 20 ml STK-MED ONCE .ROUTE ; Start 12/23/20 at 13:58; Stop 12/23/20 at 13:58; Status DC Lidocaine/ Epinephrine (LIDOCAINE 1%-EPI 1:100,000 Multi-Dose) 20 ml 1X ONCE INJ Last administered on 12/23/20at 14:15; Start 12/23/20 at 14:15; Stop 12/23/20 at 14:16; Status DC Linezolid (Zyvox) 600 mg BID PO Last administered on 12/24/20at 22:38; Start 12/24/20 at 11:00; Stop 12/25/20 at 10:48; Status DC Magnesium Sulfate 50 ml @ 25 mls/hr PRN DAILY PRN IV for Mag < 1.7 on am labs; Start 12/25/20 at 09:15 Dextrose (Dextrose 50%-Water Syringe) 25 gm STK-MED ONCE IV ; Start 12/25/20 at 22:23; Stop 12/25/20 at 22:23; Status DC Furosemide (Lasix) 40 mg 1X ONCE IVP Last administered on 12/25/20at 23:16; Start 12/25/20 at 23:00; Stop 12/25/20 at 23:05; Status DC Sodium Chloride 1,000 ml @ 1,000 mls/hr Q1H PRN IV hypotension; Start 12/26/20 at 08:45; Stop 12/26/20 at 14:44; Status DC Albumin Human 200 ml @ 200 mls/hr 1X ONCE IV Last administered on 12/27/20at 08:58; Start 12/26/20 at 08:45; Stop 12/26/20 at 09:44; Status DC Sodium Chloride 1,000 ml @ 400 mls/hr Q2H30M PRN IV PATENCY; Start 12/26/20 at 08:45; Stop 12/26/20 at 20:44; Status DC Info (PHARMACY MONITORING -- do not chart) 1 each PRN DAILY PRN MC SEE COMMENTS; Start 12/26/20 at 08:45; Status Cancel Pantoprazole Sodium (PROTONIX VIAL for IV PUSH) 40 mg DAILYAC IVP Last administered on 01/03/21at 10:24; Start 12/27/20 at 07:30; Stop 01/04/21 at 07:46; Status DC Dextrose (Dextrose 50%-Water Syringe) 25 gm STK-MED ONCE IV ; Start 12/26/20 at 10:54; Stop 12/26/20 at 10:55; Status DC Cefazolin Sodium (Ancef) 1 gm Q24H IVP Last administered on 12/26/20at 15:29; Start 12/26/20 at 16:00; Stop 12/27/20 at 10:37; Status DC Dextrose (Dextrose 50%-Water Syringe) 25 gm STK-MED ONCE IV ; Start 12/25/20 at 22:30; Stop 12/26/20 at 14:10; Status DC Norepinephrine Bitartrate 8 mg/ Dextrose 258 ml @ 18.286 mls/ hr CONT PRN IV PER PROTOCOL Last administered on 12/29/20at 05:57; Start 12/26/20 at 19:15; Stop 12/29/20 at 10:50; Status DC Fentanyl Citrate 30 ml @ 0 mls/hr CONT PRN IV SEE PROTOCOL Last administered on 12/30/20at 02:16; Start 12/26/20 at 19:15 Midazolam HCl 100 ml @ 0 mls/hr CONT PRN IV SEE PROTOCOL Last administered on 12/28/20at 22:31; Start 12/26/20 at 19:15 Vecuronium [place] (Norcuron Bolus) 6 mg PRN 1X PRN IV VENT INDUCTION; Start 12/26/20 at 19:15; Stop 12/27/20 at 19:14; Status DC Glycerin/ Hypromellose/ Polyethylene (Artificial Tears) 1 drop PRN Q1HR PRN OU DRY EYE Last administered on 01/06/21at 07:59; Start 12/26/20 at 19:15 Dexmedetomidine HCl 400 mcg/ Sodium Chloride 100 ml @ 4.725 mls/ hr CONT PRN IV PER PROTOCOL; Start 12/26/20 at 19:15 Midazolam HCl (Versed) 5 mg PRN 1X PRN IVP VENT INDUCTION; Start 12/26/20 at 19:15; Stop 12/27/20 at 19:14; Status DC Sodium Chloride 500 ml @ 500 mls/hr 1X PRN PRN IV SEE COMMENTS; Start 12/26/20 at 19:15 Atropine Sulfate (ATROPINE 0.5mg SYRINGE) 0.5 mg PRN Q5MIN PRN IV SEE COMMENTS; Start 12/26/20 at 19:15 Famotidine (Pepcid Vial) 20 mg BID IVP Last administered on 12/27/20at 09:00; Start 12/26/20 at 21:00; Stop 12/27/20 at 10:19; Status DC Ringer's Solution 1,000 ml @ 100 mls/hr Q10H IV Last administered on 12/28/20at 04:37; Start 12/26/20 at 19:30; Stop 12/29/20 at 10:28; Status DC Etomidate (Amidate) 20 mg STK-MED ONCE IV ; Start 12/26/20 at 19:19; Stop 12/26/20 at 19:19; Status DC Succinylcholine Chloride (Anectine) 200 mg 1X ONCE IV Last administered on 12/26/20at 19:38; Start 12/26/20 at 21:15; Stop 12/26/20 at 21:16; Status DC Etomidate (Amidate) 20 mg 1X ONCE IV Last administered on 12/26/20at 19:38; Start 12/26/20 at 21:15; Stop 12/26/20 at 21:16; Status DC Dextrose (Dextrose 50%-Water Syringe) 12.5 gm PRN Q15MIN PRN IV SEE COMMENTS Last administered on 01/06/21at 23:55; Start 12/27/20 at 07:30 Sodium Chloride 1,000 ml @ 1,000 mls/hr Q1H PRN IV hypotension; Start 12/27/20 at 08:15; Stop 12/27/20 at 14:14; Status DC Albumin Human 200 ml @ 200 mls/hr 1X PRN PRN IV Hypotension; Start 12/27/20 at 08:15; Stop 12/27/20 at 14:14; Status DC Sodium Chloride 1,000 ml @ 400 mls/hr Q2H30M PRN IV PATENCY; Start 12/27/20 at 08:15; Stop 12/27/20 at 20:14; Status DC Info (PHARMACY MONITORING -- do not chart) 1 each PRN DAILY PRN MC SEE COMMENTS; Start 12/27/20 at 08:15; Stop 12/28/20 at 09:54; Status DC Dextrose (Dextrose 50%-Water Syringe) 25 gm STK-MED ONCE IV ; Start 12/26/20 at 11:00; Stop 12/27/20 at 08:58; Status DC Phytonadione (Vitamin K Ampule) 10 mg 1X ONCE SQ Last administered on 12/27/20at 11:08; Start 12/27/20 at 09:45; Stop 12/27/20 at 09:49; Status DC Daptomycin 510 mg/ Sodium Chloride 50 ml @ 100 mls/hr QODAY IV Last administered on 01/06/21at 09:18; Start 12/27/20 at 12:00 Meropenem 500 mg/ Sodium Chloride 50 ml @ 100 mls/hr DAILY IV Last administered on 12/31/20at 08:05; Start 12/27/20 at 11:00; Stop 12/31/20 at 16:05; Status DC Linezolid (Zyvox) 600 mg BID PO Last administered on 12/27/20at 21:48; Start 1 02/27/20 at 12:00; Stop 12/28/20 at 08:25; Status DC Aspirin (Aspirin Chewable) 81 mg DAILYWBKFT PO Last administered on 12/28/20at 10:10; Start 12/27/20 at 12:00; Stop 12/28/20 at 11:44; Status DC Aspirin (Aspirin Chewable) 81 mg 1X ONCE PO ; Start 12/27/20 at 10:45; Stop 12/27/20 at 10:46; Status UNV Fentanyl Citrate 55 ml @ 0 mls/hr CONT PRN IV PAIN; Start 12/27/20 at 12:45; Status Cancel Sodium Chloride 1,000 ml @ 1,000 mls/hr Q1H PRN IV hypotension; Start 12/28/20 at 07:15; Stop 12/28/20 at 13:14; Status DC Albumin Human 200 ml @ 200 mls/hr 1X ONCE IV Last administered on 12/28/20at 08:22; Start 12/28/20 at 07:45; Stop 12/28/20 at 08:44; Status DC Sodium Chloride 1,000 ml @ 400 mls/hr Q2H30M PRN IV PATENCY; Start 12/28/20 at 07:15; Stop 12/28/20 at 19:14; Status DC Info (PHARMACY MONITORING -- do not chart) 1 each PRN DAILY PRN MC SEE COMMENTS; Start 12/28/20 at 07:15; Status Cancel Phytonadione (Vitamin K Ampule) 10 mg 1X ONCE SQ Last administered on 12/28/20at 10:10; Start 12/28/20 at 08:15; Stop 12/28/20 at 08:16; Status DC Potassium Phosphate 15 mmol/ Sodium Chloride 105 ml @ 52.5 mls/hr 1X ONCE IV Last administered on 12/28/20at 13:32; Start 12/28/20 at 14:00; Stop 12/28/20 at 15:59; Status DC Magnesium Sulfate 50 ml @ 25 mls/hr 1X ONCE IV Last administered on 12/28/20at 13:33; Start 12/28/20 at 12:45; Stop 12/28/20 at 14:44; Status DC Sodium Phosphate 40 mmol/Sodium Chloride 263.3333 ml @ 62.5 mls/hr 1X ONCE IV Last administered on 12/29/20at 09:51; Start 12/29/20 at 10:00; Stop 12/29/20 at 14:12; Status DC Norepinephrine Bitartrate 32 mg/ Dextrose 250 ml @ 4.603 mls/ hr CONT PRN IV SEE I/O RECORD Last administered on 01/07/21at 01:52; Start 12/29/20 at 11:00 Phytonadione (Vitamin K Ampule) 10 mg 1X ONCE SQ Last administered on 12/29/20at 11:40; Start 12/29/20 at 11:00; Stop 12/29/20 at 11:05; Status DC Sodium Chloride 1,000 ml @ 1,000 mls/hr Q1H PRN IV hypotension; Start 12/29/20 at 14:30; Stop 12/29/20 at 20:29; Status DC Sodium Chloride 1,000 ml @ 400 mls/hr Q2H30M PRN IV PATENCY; Start 12/29/20 at 14:30; Stop 12/30/20 at 02:29; Status DC Info (PHARMACY MONITORING -- do not chart) 1 each PRN DAILY PRN MC SEE COMMENTS; Start 12/29/20 at 14:30; Status Cancel Sodium Chloride 1,000 ml @ 1,000 mls/hr Q1H PRN IV hypotension; Start 12/30/20 at 07:00; Stop 12/30/20 at 12:59; Status DC Albumin Human 200 ml @ 200 mls/hr 1X ONCE IV Last administered on 12/30/20at 07:50; Start 12/30/20 at 07:00; Stop 12/30/20 at 07:59; Status DC Sodium Chloride 1,000 ml @ 400 mls/hr Q2H30M PRN IV PATENCY; Start 12/30/20 at 07:00; Stop 12/30/20 at 18:59; Status DC Info (PHARMACY MONITORING -- do not chart) 1 each PRN DAILY PRN MC SEE COMMENTS; Start 12/30/20 at 07:00; Status Cancel Dextrose 1,000 ml @ 30 mls/hr Q24H IV Last administered on 01/05/21at 05:39; Start 12/30/20 at 21:45; Stop 01/05/21 at 18:15; Status DC Magnesium Sulfate 50 ml @ 25 mls/hr 1X ONCE IV Last administered on 12/31/20at 23:39; Start 12/31/20 at 23:45; Stop 01/01/21 at 01:44; Status DC Nystatin (Nystop) 1 hiro BID TP Last administered on 01/07/21at 08:22; Start 01/02/21 at 09:15 Albumin Human 200 ml @ 200 mls/hr 1X PRN PRN IV Hypotension Last administered on 01/02/21at 09:43; Start 01/02/21 at 09:15; Stop 01/02/21 at 15:14; Status DC Info (PHARMACY MONITORING -- do not chart) 1 each PRN DAILY PRN MC SEE COMMENTS; Start 01/02/21 at 09:15; Status Cancel Sodium Chloride 1,000 ml @ 1,000 mls/hr Q1H PRN IV hypotension; Start 01/04/21 at 07:45; Stop 01/04/21 at 13:44; Status DC Albumin Human 200 ml @ 200 mls/hr 1X ONCE IV Last administered on 01/04/21at 13:50; Start 01/04/21 at 07:45; Stop 01/04/21 at 08:44; Status DC Sodium Chloride 1,000 ml @ 400 mls/hr Q2H30M PRN IV PATENCY; Start 01/04/21 at 07:45; Stop 01/04/21 at 19:44; Status DC Info (PHARMACY MONITORING -- do not chart) 1 each PRN DAILY PRN MC SEE COMMENTS; Start 01/04/21 at 07:45; Stop 01/06/21 at 13:38; Status DC Pantoprazole Sodium (PROTONIX VIAL for IV PUSH) 40 mg BID IVP Last administered on 01/06/21at 20:53; Start 01/04/21 at 09:00; Stop 01/07/21 at 06:04; Status DC Albumin Human 200 ml @ 200 mls/hr 1X ONCE IV Last administered on 01/04/21at 14:00; Start 01/04/21 at 14:00; Stop 01/04/21 at 14:59; Status DC Info (Tpn Per Pharmacy) 1 each PRN DAILY PRN MC SEE COMMENTS Last administered on 01/07/21at 11:11; Start 01/05/21 at 10:15 Sodium Chloride 70 meq/Potassium Chloride 50 meq/ Potassium Phosphate 5 mmol/ Magnesium Sulfate 5 meq/Calcium Gluconate 10 meq/ Multivitamins 10 ml/Zinc/Copper/ Manganese/ Selenium 1 ml/ Total Parenteral Nutrition/Amino Acids/Dextrose 1,200 ml @ 50 mls/hr TPN CONT IV Last administered on 01/05/21at 22:17; Start 01/05/21 at 22:00; Stop 01/06/21 at 21:59; Status DC Info (Tpn Per Pharmacy) 1 each PRN DAILY PRN MC SEE COMMENTS; Start 01/05/21 at 13:30; Status UNV Dextrose 1,000 ml @ 50 mls/hr Q20H IV Last administered on 01/05/21at 18:18; Start 01/05/21 at 18:15; Stop 01/05/21 at 21:59; Status DC Vasopressin 20 unit/Dextrose 101 ml @ 12 mls/hr CONT PRN IV SEE I/O RECORD Last administered on 01/07/21at 08:24; Start 01/06/21 at 07:30 Sodium Chloride 1,000 ml @ 1,000 mls/hr Q1H PRN IV hypotension; Start 01/06/21 at 13:30; Stop 01/06/21 at 19:29; Status DC Albumin Human 200 ml @ 200 mls/hr 1X ONCE IV Last administered on 01/06/21at 14:59; Start 01/06/21 at 14:30; Stop 01/06/21 at 15:29; Status DC Info (PHARMACY MONITORING -- do not chart) 1 each PRN DAILY PRN MC SEE COMMENTS; Start 01/06/21 at 13:30 Sodium Chloride 100 meq/Potassium Chloride 50 meq/ Sodium Phosphate 13.6 mmol/ Magnesium Sulfate 5 meq/Calcium Gluconate 12 meq/ Multivitamins 10 ml/Zinc/Copper/ Manganese/ Selenium 1 ml/ Total Parenteral Nutrition/Amino Acids/Dextrose 1,200 ml @ 50 mls/hr TPN CONT IV Last administered on 01/06/21at 22:02; Start 01/06/21 at 22:00; Stop 01/07/21 at 21:59 Pantoprazole Sodium 80 mg/ Sodium Chloride 100 ml @ 10 mls/hr Q10H IV Last administered on 01/07/21at 06:14; Start 01/07/21 at 06:15 Sodium Chloride 120 meq/Sodium Phosphate 6 mmol/ Magnesium Sulfate 5 meq/Calcium Gluconate 20 meq/ Multivitamins 10 ml/Zinc/Copper/ Manganese/ Selenium 1 ml/ Total Parenteral Nutrition/Amino Acids/Dextrose 1,200 ml @ 50 mls/hr TPN CONT IV ; Start 01/07/21 at 22:00; Stop 01/08/21 at 21:59 Calcium Gluconate (Calcium Gluconate) 1,000 mg 1X ONCE IV Last administered on 01/07/21at 12:00; Start 01/07/21 at 12:00; Stop 01/07/21 at 12:01; Status DC Sodium Bicarbonate (Sodium Bicarb Adult 8.4% Syr) 50 meq 1X ONCE IV ; Start 01/07/21 at 12:30; Stop 01/07/21 at 12:31; Status DC Albumin Human 100 ml @ 100 mls/hr 1X ONCE IV ; Start 01/07/21 at 12:30; Stop 01/07/21 at 13:29 Albumin Human 100 ml @ 100 mls/hr 1X ONCE IV ; Start 01/07/21 at 12:30; Stop 01/07/21 at 13:29 Active Scripts Active Nafcillin 2 Gm/ 100 Ml Inj (Nafcillin In Dextrose,Iso-Osm) 2 Gm/100 Ml Froz.piggy 2 Gm IV Q4HRS 30 Days Reported Acetaminophen 325 Mg Tablet 650 Mg PO QHS Aspirin 81 Mg Tab.chew 1 Tab PO DAILY Men's Multivitamin Tablet (Multivit-Min/Folic/Vit K/Lycop) 1 Each Tablet 1 Each PO DAILY Pravastatin Sodium 80 Mg Tablet 1 Tab PO DAILY Lasix (Furosemide) 40 Mg Tablet 1 Tab PO DAILY Colace (Docusate Sodium) 100 Mg Capsule 1 Cap PO PRN BID PRN Vitals/I & O Vital Sign - Last 24 Hours 01/06/21 01/06/21 01/06/21 01/06/21 13:00 14:31 15:00 15:15 Pulse 60 60 60 60 Resp 16 16 16 16 B/P (MAP) 117/42 114/43 71/39 92/48 Pulse Ox 95 93 64 81 O2 Delivery Ventilator Ventilator Ventilator Ventilator 01/06/21 01/06/21 01/06/21 01/06/21 16:00 16:00 16:15 16:18 Temp 98.0 98.0 Pulse 60 58 Resp 16 16 B/P (MAP) 107/55 119/48 Pulse Ox 93 92 94 O2 Delivery Ventilator Mechanical Ventilator Ventilator Ventilator 01/06/21 01/06/21 01/06/21 01/06/21 17:00 17:15 18:00 18:15 Pulse 58 58 58 60 Resp 16 16 16 16 B/P (MAP) 121/65 116/54 138/51 82/37 Pulse Ox 92 91 93 94 O2 Delivery Ventilator Ventilator Ventilator Ventilator 01/06/21 01/06/21 01/06/21 01/06/21 19:00 20:00 20:00 20:00 Temp 97.8 97.8 Pulse 60 60 Resp 18 22 B/P (MAP) 100/48 92/49 Pulse Ox 95 93 95 O2 Delivery Ventilator Ventilator Mechanical Ventilator Ventilator 01/06/21 01/06/21 01/06/21 01/06/21 21:00 22:00 22:00 23:00 Pulse 59 60 61 Resp 20 20 19 B/P (MAP) 119/61 95/56 113/60 Pulse Ox 95 94 94 95 O2 Delivery Ventilator Ventilator Ventilator Ventilator 01/07/21 01/07/21 01/07/21 01/07/21 00:00 00:00 00:00 01:00 Temp 97.7 97.7 Pulse 62 61 Resp 20 19 B/P (MAP) 131/52 119/49 Pulse Ox 98 94 96 O2 Delivery Ventilator Ventilator Mechanical Ventilator Ventilator 01/07/21 01/07/21 01/07/21 01/07/21 02:00 02:12 03:00 04:00 Pulse 60 60 Resp 20 20 B/P (MAP) 120/53 107/49 Pulse Ox 96 98 95 98 O2 Delivery Ventilator Ventilator Ventilator Ventilator 01/07/21 01/07/21 01/07/21 01/07/21 04:00 04:00 05:00 06:00 Temp 97.9 97.9 Pulse 61 60 60 Resp 22 20 20 B/P (MAP) 115/55 125/49 114/46 Pulse Ox 94 94 94 O2 Delivery Mechanical Ventilator Ventilator Ventilator Ventilator 01/07/21 01/07/21 01/07/21 01/07/21 07:21 07:26 08:03 08:05 Temp 98.3 98.3 Pulse 63 59 Resp 22 20 B/P (MAP) 123/55 125/68 Pulse Ox 81 80 82 O2 Delivery Ventilator Ventilator Ventilator Mechanical Ventilator 01/07/21 01/07/21 01/07/21 01/07/21 09:00 09:10 10:00 11:05 Pulse 62 64 Resp 20 20 B/P (MAP) 123/52 112/53 Pulse Ox 90 86 92 86 O2 Delivery Ventilator Ventilator Ventilator Ventilator 01/07/21 01/07/21 01/07/21 01/07/21 11:06 12:04 12:09 12:12 Temp 97.3 97.3 Pulse 59 64 64 64 Resp 20 20 20 20 B/P (MAP) 112/54 70/55 79/43 89/50 Pulse Ox 91 91 O2 Delivery Ventilator Ventilator Ventilator Ventilator 01/07/21 12:19 O2 Delivery Mechanical Ventilator Intake and Output 0 01/06/21 01/06/21 01/07/21 15:00 23:00 07:00 Intake Total 1427.8 ml 952.35 ml Output Total 0 ml 150 ml 200 ml Balance 0 ml 1277.8 ml 752.35 ml Justifications for Admission Other Justification GREY VELOZ MD Jan 07, 2021 12:43
[2021-01-07] MEDS ORDERED: IV NORMAL SALINE 1000ML BAG 1,000 ML IV PRN ×2 (12:45)
[2021-01-07] MEDS ORDERED: DIALYSIS PATIENT. MC PRN ×2 (12:45→13:00)
[2021-01-07] MEDS ORDERED: 0.9 % SODIUM CHLORIDE 10 ML DISP.SYRIN. IV PRN ×2 (12:45)
[2021-01-07] MEDS: DEXTROSE 50% 25 GM / 50ML DISP.SYRIN. IV PRN ×4 (13:50→23:59)
[2021-01-07] MEDS ORDERED: CEFEPIME HCL IV Push 1 GM VIAL. IVP SCH (14:00)
[2021-01-07] MEDS ORDERED: IV DEXTROSE 10% 1,000 ML IV SCH (14:00)
[2021-01-07] MEDS: PHENYLEPHRINE INJ 50 MG in IV NORMAL SALINE 250ML 250 ML IV PRN ×2 (15:09→23:37)
--- NOTE | 2021-01-07 18:04 | NUR ---
Patient's son, Geovani, called for an update. This RN educated Geovani on DNR vs FC. We discussed all the medications that patient is on trying to keep his BP stable, oxygenation status, BG levels. Geovani said that he will talk to his brother and he stated that it sounds like they have a big decision to make. As for now, the patient is a Full Code.
--- NOTE | 2021-01-07 18:19 | NUR ---
Patient unstable, requiring rapid titration of levophed d/t sustained MAP <65 beginning at 1204. Starting rate at 0.5 mcg/kg/min and patient stabilized at 1508 with MAP 38 with levophed gtt currently infusing at 1.0 mcg/kg/min, which is the max rate of levophed, titrated phenylephrine after reaching max rate. Pt is v-paced rhythm, HR 60.
[2021-01-07] MEDS: ACETAMINOPHEN 325 MG TABLET. PO SCH (21:00)
[2021-01-07] MEDS ORDERED: IV RINGERS,LACTATED 500ML 500 ML IV ONE (21:45)
[2021-01-07] MEDS: EPINEPHrine VIAL 5 MG in IV NORMAL SALINE 250ML 250 ML IV PRN ×2 (21:49→23:37)
[2021-01-07] MEDS ORDERED: TOTAL PARENTERAL NUTRITION IV SCH (22:00)
[2021-01-07] MEDS ORDERED: DEXTROSE 70% IV SCH (22:00)
[2021-01-07] MEDS ORDERED: AMINO ACID IV SCH (22:00)
[2021-01-07] MEDS ORDERED: [UNRECOGNIZED DRUG - OTHER] IV SCH (22:00)
[2021-01-07 22:04] LABS: BASO % 0 % (0-3); EOS # 0.1 x10^3/uL (0.0-0.7); EOS % 1 % (0-3); HEMATOCRIT 21.4 % (39.0-53.0); LYMPH # 0.5 x10^3/uL (1.0-4.8); LYMPH % 6 % (24-48); MEAN CORPUSCULAR HEMOGLOBIN 30 pg (25-35); MEAN CORPUSCULAR HGB CONC 28 g/dL (31-37); MEAN CORPUSCULAR VOLUME 107 fL (79-100); MONO # 0.1 x10^3/uL (0.0-1.1); MONO % 1 % (0-9); NEUT # 7.7 x10^3/uL (1.8-7.7); NEUT % 91 % (31-73); PLATELET COUNT 43 x10^3/uL (140-400); RED CELL DISTRIBUTION WIDTH 31.9 % (11.5-14.5); WHITE BLOOD COUNT 8.5 x10^3/uL (4.0-11.0)
[2021-01-07 22:09] LABS: HEMOGLOBIN 6.1 g/dL (13.0-17.5)
[2021-01-07 22:11] LABS: PROTHROMBIN TIME PATIENT 72.4 SEC (11.7-14.0)
--- NOTE | 2021-01-07 22:49 | NUR ---
Rapid titration note Patient unstable, requiring rapid titration of phenylephrine from 2044 to 2129 until max rate of 3mcg/kg/min reached with MAP still <65. Dr Temple notified, orders received for fluid bolus and epinephrine gtt. Epinephrine gtt rapidly titrated from 2144 to 2214 until max rate of 0.7mcg/kg/min reached with MAP still <65.
[2021-01-08] MEDS ORDERED: EPINEPHrine VIAL 10 MG in IV NORMAL SALINE 250ML IV PRN ×2 (00:45→01:00)
--- NOTE | 2021-01-08 01:22 | PN ---
DATE: 01/07/2021 LOCATION: He is in room ICU, 102. SUBJECTIVE: This 85-year-old male remains hospitalized with multiorgan failure following MSSA sepsis from a right knee source. He is day 6-7 off of sedation with no meaningful response, although he does have his eyes more open. OBJECTIVE: VITAL SIGNS: Stable, although he is requiring 2 pressors. He is afebrile. CHEST: Clear. HEART: Regular. Good rate. ABDOMEN: Benign. Stable petechial changes. NEUROLOGIC: Only response was that of his eyes are open, but not following. LABORATORY DATA: White count decreased this morning to 19.2, hemoglobin stable at 7.7 despite bloody OG output. Potassium was 5.9 this morning. TPN was held. He is having intermittent hypoglycemia. ASSESSMENT: Sepsis with multiorgan failure and extremely poor prognosis. PLAN: We will discuss with family again. This does appear at this point in time to be futile and we will explain the same to them. EMERSON DR: Danielle TID: [id number]
--- NOTE | 2021-01-08 01:25 | PHYS DOC ---
CODE REPORT CODE REPORT Responded to ICU for overhead CODE LASHONDA. Was called to the bed of a 85-year-old male who was admitted with MSSA bacteremia, sepsis, pneumonia, respiratory failure, liver failure, ESRD on dialysis, DIC, and gastrointestinal bleeding. Notes indicate he has been off of sedation for several days without any purposeful movements. Prior to code he was on multiple high-dose pressors including norepinephrine, epinephrine, phenylephrine, and vasopressin. He was on a d10 infusion for hypoglycemia. Persistently in 50s. Intubated on 60% FiO2. Prior to calling the code he had had decreasing blood pressures to the point of being unable to register on BP cuff, but continued to have a palpable femoral pulse. Eventually lost femoral pulse and lost capture from his pacemaker with an underlying rhythm of asystole. Per nursing he had not had a previous issue with capture, so doubt a primary pacemaker malfunction. CPR was initiated. epi x2 bicarb x1, calcium x1 for potential hyperkalemia. Received dialysis earlier today. breath sounds present bilaterally, no evidence of pneumothorax. glucose still in 50s so d50 was given with blood glucose improvement to 88. Hgb was 6.1 at 2140, blood was reportedly ordered but not yet hung. Blood was deferred during code given likely futility. The code was called, and time of was 1246. Primary RN has left message for family to call back. JOSH SAUNDERS MD Jan 08, 2021 01:25
[2021-01-08] MEDS ORDERED: SODIUM BICARB ADULT 8.4% 50 MEQ/50 ML DISP.SYRIN. ONE (06:00)
[2021-01-08] MEDS ORDERED: CALCIUM CHLORIDE 1,000 MG/10 ML DISP.SYRIN ONE (06:00)
[2021-01-08] MEDS ORDERED: DEXTROSE 50% 25 GM / 50ML DISP.SYRIN. IV ONE (06:00)
[2021-01-08] MEDS ORDERED: EPINEPHrine SYRINGE 1 MG/10 ML SYRINGE ONE (06:00)
--- NOTE | 2021-01-08 06:00 | NUR ---
Patient continued to deteriorate throughout the night. Pressors maximum dose. Unable to obtain blood pressure but adequate carotid and femoral pulse. John, NAEEM spoke with son who requested patient to remain full code and "will see him in the morning". Notified Dr. Temple and Dr. Hinojosa of patient condition. Orders received and continued plan of care. Sofia Osuna called when carotid pulse absent and pacemaker failing to capture. Dr. Mckeon to bedside for code blue. See code blue sheet. Resuscitation efforts stopped. Attempted to notify patients family. Messages left for call back. No call back at time of shift change.
--- NOTE | 2021-01-08 07:13 | NUR ---
This RN attempted to call the patient's son to notify him of patient's . This RN left a message for return call on recorder. Addendum: 01/08/21 at 0811 by VALERIA DOWNEY RN Patient's son returned my call. He was notified of , told where patient's belongings can be picked up. The home will be [place]. Nursing supervisor sintering plant was informed.
== END 2021-01-08 08:13 | DRG 853 ==
LOC: ER 11:47 → ED HOLD 14:42 → 5 NORTH 19:41 → 1 WEST ICU 12-26 18:10
PROVIDERS: ADMIT Family Medicine; ATTEND Family Medicine
PROC: 0S9C3ZX Drainage of Right Knee Joint, Percutaneous Approach, Diagnostic (ICD-10-PCS; 2020-12-02)
PROC: 0BH17EZ Insertion of Endotracheal Airway into Trachea, Via Natural or Artificial Opening (ICD-10-PCS; 2020-12-04)
PROC: 02PYX3Z Removal of Infusion Device from Great Vessel, External Approach (ICD-10-PCS; 2020-12-04)
PROC: 0SBC4ZZ Excision of Right Knee Joint, Percutaneous Endoscopic Approach (ICD-10-PCS; 2020-12-04)
PROC: B24BZZ4 Ultrasonography of Heart with Aorta, Transesophageal (ICD-10-PCS; 2020-12-05)
PROC: 5A1D70Z Performance of Urinary Filtration, Intermittent, Less than 6 Hours Per Day (ICD-10-PCS; 2020-12-12)
PROC: 5A1D70Z Performance of Urinary Filtration, Intermittent, Less than 6 Hours Per Day (ICD-10-PCS; 2020-12-13)
PROC: 5A1D70Z Performance of Urinary Filtration, Intermittent, Less than 6 Hours Per Day (ICD-10-PCS; 2020-12-15)
PROC: 30233K1 Transfusion of Nonautologous Frozen Plasma into Peripheral Vein, Percutaneous Approach (ICD-10-PCS; 2020-12-18)
PROC: 30233N1 Transfusion of Nonautologous Red Blood Cells into Peripheral Vein, Percutaneous Approach (ICD-10-PCS; 2020-12-18)
PROC: 5A1D70Z Performance of Urinary Filtration, Intermittent, Less than 6 Hours Per Day (ICD-10-PCS; 2020-12-18)
PROC: 5A1D70Z Performance of Urinary Filtration, Intermittent, Less than 6 Hours Per Day (ICD-10-PCS; 2020-12-19)
PROC: 5A1D70Z Performance of Urinary Filtration, Intermittent, Less than 6 Hours Per Day (ICD-10-PCS; 2020-12-21)
PROC: 5A1D70Z Performance of Urinary Filtration, Intermittent, Less than 6 Hours Per Day (ICD-10-PCS; 2020-12-23)
PROC: 02HV33Z Insertion of Infusion Device into Superior Vena Cava, Percutaneous Approach (ICD-10-PCS; 2020-12-23)
PROC: 0JH63XZ Insertion of Tunneled Vascular Access Device into Chest Subcutaneous Tissue and Fascia, Percutaneous Approach (ICD-10-PCS; 2020-12-23)
PROC: B5181ZA Fluoroscopy of Superior Vena Cava using Low Osmolar Contrast, Guidance (ICD-10-PCS; 2020-12-23)
PROC: B548ZZA Ultrasonography of Superior Vena Cava, Guidance (ICD-10-PCS; 2020-12-23)
PROC: 5A1955Z Respiratory Ventilation, Greater than 96 Consecutive Hours (ICD-10-PCS; principal; 2020-12-26)
PROC: 5A1D70Z Performance of Urinary Filtration, Intermittent, Less than 6 Hours Per Day (ICD-10-PCS; 2020-12-26)
PROC: 5A1D70Z Performance of Urinary Filtration, Intermittent, Less than 6 Hours Per Day (ICD-10-PCS; 2020-12-27)
PROC: 02HV33Z Insertion of Infusion Device into Superior Vena Cava, Percutaneous Approach (ICD-10-PCS; 2020-12-27)
PROC: B5181ZA Fluoroscopy of Superior Vena Cava using Low Osmolar Contrast, Guidance (ICD-10-PCS; 2020-12-27)
PROC: B548ZZA Ultrasonography of Superior Vena Cava, Guidance (ICD-10-PCS; 2020-12-27)
PROC: 5A1D70Z Performance of Urinary Filtration, Intermittent, Less than 6 Hours Per Day (ICD-10-PCS; 2020-12-28)
PROC: 5A1D70Z Performance of Urinary Filtration, Intermittent, Less than 6 Hours Per Day (ICD-10-PCS; 2020-12-29)
PROC: 5A1D70Z Performance of Urinary Filtration, Intermittent, Less than 6 Hours Per Day (ICD-10-PCS; 2021-01-02)
PROC: 5A1D70Z Performance of Urinary Filtration, Intermittent, Less than 6 Hours Per Day (ICD-10-PCS; 2021-01-04)
PROC: 5A1D70Z Performance of Urinary Filtration, Intermittent, Less than 6 Hours Per Day (ICD-10-PCS; 2021-01-06)
PROC: 5A1D70Z Performance of Urinary Filtration, Intermittent, Less than 6 Hours Per Day (ICD-10-PCS; 2021-01-07)
DX: A41.02 Sepsis due to Methicillin resistant Staphylococcus aureus (principal); J18.9 Pneumonia, unspecified organism; E43 Unspecified severe protein-calorie malnutrition; G92.8 Other toxic encephalopathy; I50.33 Acute on chronic diastolic (congestive) heart failure; J96.01 Acute respiratory failure with hypoxia; K72.00 Acute and subacute hepatic failure without coma; N17.0 Acute kidney failure with tubular necrosis; R65.21 Severe sepsis with septic shock; D68.9 Coagulation defect, unspecified; E87.1 Hypo-osmolality and hyponatremia; G93.1 Anoxic brain damage, not elsewhere classified; I42.9 Cardiomyopathy, unspecified; I48.21 Permanent atrial fibrillation; J98.11 Atelectasis; K92.2 Gastrointestinal hemorrhage, unspecified; M00.00 Staphylococcal arthritis, unspecified joint; Z99.11 Dependence on respirator [ventilator] status; B96.89 Other specified bacterial agents as the cause of diseases classified elsewhere; D50.0 Iron deficiency anemia secondary to blood loss (chronic); D69.2 Other nonthrombocytopenic purpura; D69.6 Thrombocytopenia, unspecified; E16.2 Hypoglycemia, unspecified; E78.00 Pure hypercholesterolemia, unspecified; E78.5 Hyperlipidemia, unspecified; E83.39 Other disorders of phosphorus metabolism; E83.42 Hypomagnesemia; E87.6 Hypokalemia; I11.0 Hypertensive heart disease with heart failure; I25.10 Atherosclerotic heart disease of native coronary artery without angina pectoris; I49.5 Sick sinus syndrome; K76.0 Fatty (change of) liver, not elsewhere classified; K76.1 Chronic passive congestion of liver; M17.11 Unilateral primary osteoarthritis, right knee; M65.9 Synovitis and tenosynovitis, unspecified; M71.169 Other infective bursitis, unspecified knee; N28.1 Cyst of kidney, acquired; R62.7 Adult failure to thrive; S80.01XA Contusion of right knee, initial encounter; T45.515A Adverse effect of anticoagulants, initial encounter; W18.30XA Fall on same level, unspecified, initial encounter; Z20.822 Contact with and (suspected) exposure to COVID-19; Z79.01 Long term (current) use of anticoagulants; Z86.010 Personal history of colon polyps; Z95.0 Presence of cardiac pacemaker; Z95.5 Presence of coronary angioplasty implant and graft; Z96.649 Presence of unspecified artificial hip joint; Z96.653 Presence of artificial knee joint, bilateral; Z99.2 Dependence on renal dialysis; Z68.30 Body mass index [BMI] 30.0-30.9, adult
CPT/HCPCS: 36415; 36430; 36556; 36581; 36600; 70450; 71045; 73562; 74018; 76700; 76705; 76770; 76937; 77001; 80048; 80053; 80069; 80076; 81001; 82140; 82247; 82248; 82542; 82550; 82607; 82805; 82962; 83010; 83520; 83540; 83550; 83605; 83615; 83735; 83880; 84100; 84165; 84484; 85007; 85014; 85018; 85025; 85027; 85045; 85049; 85379; 85384; 85610; 85730; 86317; 86850; 86900; 86901; 86920; 86927; 87015; 87040; 87070; 87071; 87075; 87077; 87086; 87186; 87205; 87340; 87426; 89050; 89060; 90471; 90686; 93005; 93312; 94002; 94003; 96365; 96366; 96367; 96375; 99152; A4930; A6450; C1750; C1892; C9113; J0171; J0330; J0456; J0610; J0690; J0692; J0696; J0878; J1100; J1940; J2185; J2250; J2370; J2405; J2704; J3010; J3430; J3475; J3480; J3490; J7030; J7050; J7060; J7120; P9016; P9017; P9046; U0003; U0005; 97110-GO; 97110-GP; 97530-GO; 97530-GP; 97535-GO; 99285-25; G0378